=== PATIENT | male | born 1955 | race Caucasian/White ===

== ENCOUNTER 2024-07-25 13:43 | Outpatient (CLI) | payer MEDICARE, SELFPAY ==
--- NOTE | 2024-07-25 | CA_ITS ---
APPROVED REPORT EXAM: Comprehensive 2D, Doppler, and color-flow Echocardiogram Pattern Mechanic: Geri Sharif, RT(R) Ht: 5 ft 9 in Wt: 241lbs BSA: 2.24 BP: 134/63 mmHg Indications: HFrEF, CP, abn EKG, CAD, CABG x 3, dyspnea, DM, WILSON 2D Dimensions LVEF (Lala's) 44.50 % M: 52 - 72 LV Volume 150.90 mL M: 62 - 150 LV Volume Index 67.4 mL/m2 M: 34 - 74 LA Volume 27.50 mL LA Volume Index 12.28 mL/m2 (M/F) 16-34 EF AP4 49.20 % EF AP2 29.9 % EF BP 44.5 % GL Strain -16.1 % M-Mode Dimensions RVDd 2.86 cm (0.9-2.6) LA Diam 4.52 cm (1.9-4.0) LVDd 4.71 cm (3.5-5.7) LVDs 3.78 cm (3.5-5.7) IVSd 1.05 cm (0.6-1.1) PWd 0.80 cm (0.6-1.1) EF (Teich) 40.50% FS 19.70% EDV (Teich) 102.90 mL ESV (Teich) 61.20 mL LV Diastology E Decel Time 247 (160-240 msec) E/A Ratio 0.5 Aortic Valve BISMARK Index 1.02 cm2/m2 AoV Peak Guy. 134.0 (50-130 cm/s) AO Peak GR. 7.20 mmHg AO Mean GR. 3.50 (<5 mmHg) AO VTI 25.8 (18-25 cm) BISMARK (VTI) 2.33 (2.5-4.5 cm2) Mitral Valve MV E Max Guy. 59.0 (40-130 cm/s) MV A Velocity 108.0 (40-130 cm/s) E/A Ratio 0.54 MV PHT 72.0 ms Left Ventricle The left ventricle is normal size. Left ventricular systolic function is mildly decreased. There is increased overall thickness. The septum is asynchronous. There is mild global hypokinesis present. There is moderate hypokinesis of the basal septal and inferoseptal LV waller. Grade 2 diastolic dysfunction is present. LVEF is 45%. Right Ventricle The right ventricle is normal size. The right ventricular systolic function is normal. Atria Left atrium is mildly dilated. Right atrium is mildly dilated. There is no Doppler evidence of interatrial shunt. Aortic Valve The aortic valve is mildly thickened. There is no aortic valvular stenosis. Trace aortic regurgitation. Mitral Valve The mitral valve is mildly thickened. No evidence of mitral valve stenosis. Mild mitral regurgitation. Tricuspid Valve Tricuspid valve is grossly normal in structure and function. History Regurgitation. There is insufficient TR jet to estimate RVSP. Pulmonic Valve The pulmonary valve is normal in structure. Trace pulmonic regurgitation. Great Vessels The aortic root is normal in size. IVC is normal in size and collapses >50% with inspiration. Pericardium There is no pericardial effusion. Other Information Study Quality: Fair Conclusion Mildly reduced LV systolic function (LVEF 45%). Septum is asynchronous. Moderate hypokinesis of the basal septal and inferoseptal LV waller. Mild biatrial dilation. Mild MR. Electronically signed by : Kim Romeo MD 07/31/2024 11:58:41
== END 2024-07-25 23:59 | disposition home or self-care (01) ==
LOC: RT 13:45
PROVIDERS: PCP Nurse Practitioner Family; Visit Provider Physician Assistant
DX: I34.0 Nonrheumatic mitral (valve) insufficiency (principal); I50.20 Unspecified systolic (congestive) heart failure; I25.10 Atherosclerotic heart disease of native coronary artery without angina pectoris; E11.9 Type 2 diabetes mellitus without complications; R94.31 Abnormal electrocardiogram [ECG] [EKG]; Z95.1 Presence of aortocoronary bypass graft; R93.1 Abnormal findings on diagnostic imaging of heart and coronary circulation
CPT/HCPCS: 93306

== ENCOUNTER 2024-08-12 07:19 | Day surgery (SDC) | payer MEDICARE, SELFPAY ==
[2024-08-12] VITALS (18 sets, daily range): BP systolic 122–179; BP diastolic 70–98; PULSE 55–88; RESP 18–20; O2SAT 90–96; BMI 36.3
--- NOTE | 2024-08-12 07:02 | IR_ITS ---
APPROVED REPORT Patient Location: Outpatient PROCEDURES Left heart catheterization Left ventriculogram Selective coronary angiogram Left internal mammary angiography Selective engagement of the saphenous vein graft to the circumflex artery Selective engagement of saphenous vein graft to the posterior descending artery INDICATION Coronary artery disease, Angina pectoris, History of coronary bypass surgery Informed consent was obtained prior to the procedure. COMPLICATIONS NONE Estimated Blood Loss: LESS THAN 10 ML TECHNIQUE One percent lidocaine used to anesthetize the right groin. The right femoral artery was accessed via the Seldinger technique and a 5 Portuguese sheath was placed in the right femoral artery. A JL 4, JR4 catheter were used to perform left heart catheterization, left ventriculogram selective coronary angiography as well as selective engagement of the 2 vein grafts and the left internal mammary artery. At the end of the procedure the patient was transferred to the postop holding area in stable condition for sheath removal. ANGIOGRAPHIC RESULTS The left main artery Ostially occluded The right coronary artery Proximally occluded The CAMPOS ventriculogram reveals Reduced ejection fraction estimated at 35 to 40% The left ventricular end-diastolic pressure 15 to 20 mmHg KELLY to LAD is a large graft anastomosis onto the mid LAD and then backfills a medium sized first diagonal artery as well as supplies antegrade flow to the apex Saphenous to the circumflex artery ostially occluded Saphenous to the large posterior descending artery is widely patent IMPRESSION Coronary artery disease as described above PLAN 1. Continue medical management with risk factor modification Electronically signed by : Wilder Hobson MD 08/12/2024 12:31:35
[2024-08-12 08:26] LABS: Basophils % 0.4 % (0.1-2.0); Eosinophils # 0.5 Kmm3 (0.0-0.4); Eosinophils % 9.1 % (0.1-12.0); Hematocrit 39.6 % (42.0-52.0); Immature Granulocytes # 0.02 10^3uL; Immature Granulocytes % 0.4 %; Lymphocytes # 1.1 K/mm3 (0.7-4.5); Lymphocytes % 19.7 % (10-50); Mean Corpuscular HGB Conc 32.8 g/dL (31.8-35.4); Mean Corpuscular Hemoglobin 28.9 pg (27.0-31.2); Mean Platelet Volume 11.9 fl (7.4-10.4); Monocytes # 0.5 K/mm3 (0.1-1.0); Monocytes % 9.5 % (1.7-9.3); Neutrophils # 3.3 K/mm3 (1.8-7.8); Neutrophils % 60.9 % (37.0-80.0); Nucleated Red Blood Cells # 0 10^3/uL; Nucleated Red Blood Cells % 0 %; Platelet Count 221 K/mm3 (142-424); Red Cell Distribution Width 13.2 % (11.5-17.5); Red Cell Distribution Width-SD 42.1 fL; White Blood Count 5.5 K/mm3 (4.8-10.8)
[2024-08-12 08:31] LABS: Chloride 105 mmol/L (98-107)
[2024-08-12 08:32] LABS: Sodium 138 mmol/L (136-145)
[2024-08-12 08:34] LABS: Blood Urea Nitrogen 20 mg/dl (9-20); Creatinine Clearance Estimated 77 mL/min (50-200); Estimated Glomerular Filt Rate 50 ml/min (>60); GFR (African American) 61 ML/MIN (>60)
[2024-08-12 08:35] LABS: Calcium 8.9 mg/dl (8.4-10.2); Carbon Dioxide 26 mmol/L (22.0-30.0); Glucose 300 mg/dl (74-100)
[2024-08-12] MEDS: LIDOCAINE 1% 10ML MDV 10 ML IJ (10:32)
[2024-08-12] MEDS: HEPARIN 1,000 UNITS/500ML NS (CATH LAB) 3000 UNIT IV (10:32)
[2024-08-12] MEDS: diphenhydrAMINE 50MG/ML VIAL 50 MG IV (10:33)
[2024-08-12] MEDS: 0.9 % SODIUM CHLORIDE 500 ML 25 ML IV (10:33)
[2024-08-12] MEDS: MIDAZOLAM HCL 1MG/ML 5ML VIAL 1 MG IV (11:35)
[2024-08-12] MEDS: FENTANYL 100MCG/2ML VIAL 50 MCG IV (11:35)
[2024-08-12] MEDS: HYDROCODONE/APAP 5/325 MG TABLET 2 TAB PO (13:24)
[2024-08-12] MEDS: IOPAMIDOL-370 (76%);100ML BOTTLE 50 ML IV (15:31)
== END 2024-08-12 14:47 | disposition home or self-care (01) ==
PROVIDERS: PCP Nurse Practitioner Family; Visit Provider Internal Medicine
PROC: 4A023N7 Measurement of Cardiac Sampling and Pressure, Left Heart, Percutaneous Approach (ICD-10-PCS; CPT 93452; principal; 2024-08-12 09:15)
DX: I25.118 Atherosclerotic heart disease of native coronary artery with other forms of angina pectoris (principal); I25.708 Atherosclerosis of coronary artery bypass graft(s), unspecified, with other forms of angina pectoris; R06.02 Shortness of breath; R53.83 Other fatigue; R94.31 Abnormal electrocardiogram [ECG] [EKG]; E11.9 Type 2 diabetes mellitus without complications; E78.5 Hyperlipidemia, unspecified; I50.20 Unspecified systolic (congestive) heart failure; Z95.1 Presence of aortocoronary bypass graft; Z88.8 Allergy status to other drugs, medicaments and biological substances; Z79.1 Long term (current) use of non-steroidal anti-inflammatories (NSAID); Z79.84 Long term (current) use of oral hypoglycemic drugs; Z79.4 Long term (current) use of insulin; Z79.899 Other long term (current) drug therapy
CPT/HCPCS: 93459; 80048; 85025; 99152; C1725; C1769; C1894; J1200; J1644; J3010; Q9967

== ENCOUNTER 2024-09-18 10:45 | Outpatient (CLI) | payer MEDICARE, SELFPAY ==
--- OUTSIDE RECORDS SUMMARY | 2014-12-23 18:15 | XMS_ITS | Encounter Summary ---
Author Organization [place] [address] Care Team Providers Care Nurse Staff Community Health Name Role Phone Edgar Dodson MD Primary Care Provider [phone] Elba Tapia RN Unavailable Unavail able Encounter Details Date Type Department Care Team (Latest Contact Info) Description 12/23/2014 6:15 PM EDT Hospital Encounter [facility] 238 [facility] [place] [address] Left without seen Social History Tobacco Use Types Packs/Day Years Used Date Smoking Tobacco: Never Smokeless Tobacco: Never Alcohol Use Standard Drinks/Week Comments No 0 (1 standard drink = 0.6 oz pur e alcohol) NO [facility] Utilities Answer Date Recorded In the past 12 months has [employer] electric, gas, oil, or water company threatened to shut off services in your home? No 01/01/2024 Overall Financial Resource Strain (CARDIA) Answe r Date Recorded How hard is it for you to pa y for the very basics like food, housing, medical care, and heating? Not very hard 07/24/2024 PHQ-2 Answer Date Recorded PHQ-2 Total Score 0 01/01/2024 [facility] [place] of Occupat ional Health - Occupational Stress [...] things needed for daily living? No 07/24/2024 [facility] IP Transportation Answer D ate Recorded [...] k containing alcohol? 0 12/31/2023 6:58 PM EDT Meron Escobar RN How many drinks containing [...] in doing things 0 01/01/2024 1:34 PM NIEVEST Blaine Sauceda RN Feeling down, depressed, or hopeless 0 01/01/2024 1:34 PM EDT Blaine Sauceda RN PHQ-2 Total Score 0 01/01/2024 1:34 PM EDT Blaine Sauceda RN * PHQ-9 Total Score Answer Date of Assessment Author 0 01/01/2024 1:34 PM EDT Blaine Sauceda RN * Question Answer Date [...] Assessment Author No Risk 12/31/2023 7:00 PM EDT Tracie Peña RN * [place] Suicide Severity Rating Scale (Q shift for moderate and high) Question Answer Date of Assessment Author 1. In the past month, have y ou wished you were or wished you could go to sleep and not wake up? 0 12/31/2023 7:00 PM EDT Tracie Flowers, JAMISON 2. In the past month, have y ou actually had any thoughts of killing yourself? (If no, skip to question 6) 0 12/31/2023 7:00 PM EDT Tracie Peña, JAMISON 6. Have you ever done anythi ng, [...] or making decisions? No 02/20/2023 5:25 PM Dianne Maddox RMA documented in this encounter Plan of Treatment Upcoming Encounters Date Type Department Care Team (Late st Contact Info) Description 11/18/2024 10:45 AM EDT Office Visit [facility] [address] [place] [address] Ariana Munguia MD [address] [place] [address] 01/02/2025 10:45 AM EDT Office Visit [facility] [address] [place] [address] Abel Hernandez MD [address] [facility] [address] [place] [address] documented as of this encounter Goals Goal Patient Goal Type Associated Problems Recent Progress Patient-Stated? Author Blood Pressure < 140/90 Blood Pressure 150/80(2024 10:40 AM EDT) No Carlee Rose CMA BMI (Calculated) < 30 General 36.6(07/19/19 10:40 AM EDT) No Carlee Rose CMA Maintain a healthy diet, exercise regularly and maintain an ideal body weight General No Elza Mckeon, JORGE <Enter Goal> General No Allison Angel RN HEMOGLOBIN A1C < 7.0 Result Component 9.6( 4 2:26 PM EDT) No Carlee Rose CMA documented as of this encounter Visit Diagnoses Not on filedocumented in this encounter Additional Health Concerns Infection Onset Date Last Indicated Resolved Time R/O C-Diff 05/20/2021 05/20/2021 05/20/2021 3:39 PM EST documented as of this encounter Care Teams Nurse Staff Community Health Relationship Specialty Start Date End Date Edgar Dodson MD [address] [address] PCP - General 04/08/09 07/05/15 Elba Tapia, RN Health Advocate 10/21/13 5 documented as of this encounter
--- OUTSIDE RECORDS SUMMARY | 2018-05-20 11:35 | XMS_ITS | Encounter Summary ---
Author [place] [address] Care Team Providers Care Group Leader Wafer Polishing Name Role Phone Omi Daly DO Primary Care Provider Encounter Details Date Type Department Care Team (Latest Contact Info) Description 05/20/2018 11:35 AM EDT Hospital Encounter [facility] [address] [facility] [place] [address] Left without seen Social History Tobacco Use Types Packs/Day Years Used Date Smoking Tobacco: Never Smokeless Tobacco: Never Alcohol Use Standard Drinks/Week Comments No 0 (1 standard drink = 0.6 oz pur e alcohol) NO [facility] Utilities Answer Date Recorded In the [...] Date Recorded PHQ-2 Total Score 0 01/01/2024 [facility] [place] of Occupat ional Health - Occupational Stress [...] things needed for daily living? No 07/24/2024 [facility] IP Transportation Answer D ate Recorded In [...] Determine Rows 4-10 0 12/31/2023 6:58 PM NIEVEST Meron Escobar RN * Is the person deaf or does he/she have serious difficulty hearing? Answer Date of Assessment Author No 04/29/2018 3:37 PM Micehlle Matias RMA * Is the person blind [...] 0 12/01/2019 4:10 PM EDT Derick Self , JAMISON * Recent Risk Level: Answer Date of Assessment Author No Risk, Screening Complete 12/01/2019 4:10 PM E Derick Da Silva, JAMISON * Suicide Severity Rating Answer Date of Assessment Author No Risk 12/31/2023 7:00 PM EDT Tracie Peña RN * [place] Suicide Severity Rating Scale (Q shift for [...] Date Author No 04/29/2018 3:37 PM EST Ammerman, Michelle, RMA documented in this encounter Plan of Treatment Upcoming Encounters Date Type Department Care Team (Late st Contact Info) Description 11/18/2024 10:45 AM EDT Office Visit [facility] [address] [place] [address] Ariana Munguia MD [address] [place] [address] 01/02/2025 10:45 AM EDT Office Visit [facility] [place] [address] [place] [address] Abel Hernandez MD [address] [facility] [address] [place] [address] documented as of this encounter Goals Goal [...] documented as of this encounter Care Teams Group Leader Wafer Polishing Relationship Specialty Start Date End Date Omi Daly DO [address] [place], [place] [id number] PCP - General Family Medicine 07/06/15 06/14/20 documented as of this encounter
--- OUTSIDE RECORDS SUMMARY | 2023-02-26 09:00 | XMS_ITS | Continuity of Care Document ---
Author Organization [facility] Address [address] [place] [address] Phone Care Team Providers Care Assistant Chief Nursing Officer Name Role Phone Brett Howard MD Unavailable Unavailable Medications Medication Instructions Dosage Effective Dates (start - stop) Status Comments Medrol (Antoni) 4 mg tablets in a dose pack take by Oral route Not Available - Active Procedures Procedure Date Office/outpatient visit,[facility] 2022 X-ray exam lwr spine, min 4 views X-ray exam of knee, 3 views Advance Directives Directive Yes / No Effective Date File Name No Information Encounters Encounter Description Practice Location Reason(s) For Visit Diagnoses Date Provider Providers Copied on Encounter [facility] [address], [facility], tel:[phone] [facility] Bilateral primary osteoarthritis of knee [address] [place], [place], [facility], . tel:[phone] Referring Provider: Carlos A Gross, [address] [place] [address], [address] . tel:[phone] [facility] [address], [facility], tel:[phone] [address] [place] [address] No Information [address] [place], [address], [place]. tel:[phone] Referring Provider: Carlos A Gross, [address] [place], [place] [address] , [place], [address] . tel:[phone] [facility], [facility] [place], [address], tel:[phone] [address] [facility] Bilateral primary osteoarthritis of knee [address] [place], [place], [facility], . tel:[phone] Referring Provider: Carlos A Gross, [address] [place] [address], [address] . tel:[phone] Office[facility]pa [facility]ient visit,[facility], [address] [place], [address], tel:[phone] [address] [facility] Other intervertebral disc degeneration, lumbar regionBilateral primary osteoarthritis of kneeConnective tissue and disc stenosis of intervertebral foramina of lumbar region [address] [place], [address], . tel:[phone] Referring Provider: Carlos A Gross, [address] [place] [address], [address] . tel:[phone] Family History Family Member Type Diagnosis Age At Onset No Information Payers Payer name Insurance type Covered green party ID Authoriza tion(s) [employer] Medicare - [id number] Social History Type Description Quantity Date Captured [...]
--- OUTSIDE RECORDS SUMMARY | 2024-07-24 08:30 | XMS_ITS | Encounter Summary ---
Author Organization [place] [address] Care Team Providers Care Cath Lab Tech Name Role Phone Rneato Rey DO, Viral Primary Care Provider [phone] Ariana Munguia MD Unavailable [phone] Allison Angel RN Unavailable Unavailable Reason for Visit * Reason Comments CM- Telephonic Outreach CM- Longitudinal Continued Encounter Details Date Type Department Care Team (Latest Contact Info) Description 07/24/2024 8:30 AM EDT Clinical Support [facility] [place] [address] [place] [address] Allison Angel, RN Uncontrolled type 2 diabetes mellitus with hyperglycemia (HCC) (Primary Dx); CHF (congestive heart failure), NYHA class I, acute on chronic, combined (HCC); Enrolled in chronic care management Social History Tobacco Use Types Packs/Day Years Used Date Smoking Tobacco: Never Smokeless Tobacco: Never Alcohol Use Standard Drinks/Week Comments No 0 (1 standard drink = 0.6 oz pur e alcohol) NO [facility] Utilities Answer Date Recorded In the past 12 months has [employer] electric, gas, oil, or water company threatened to shut off services in your home? No 01/01/2024 Overall Financial Resource Strain (CARDIA) Answe r Date Recorded How hard is it for you to pa y for the very basics like food, housing, medical care, and heating? Not very hard 07/24/2024 PHQ-2 Answer Date Recorded PHQ-2 Total Score 0 01/01/2024 [place] of Occupat ional Health - Occupational Stress [...] money to buy more. Never true 07/25/19 Within the past 12 months, t he [...] things needed for daily living? No 07/24/2024 [facility] IP Transportation Answer D [...] on file Sexual Orientation Not on file documented as of this encounter Functional Status * Is the person deaf or does he/she have serious difficulty hearing? Answer Date of Assessment Author No 02/20/2023 5:25 PM Anne RMA * Is the person blind or does he/she have serious difficulty seeing even when wearing glasses? Answer Date of Assessment Author No 02/20/2023 5:25 PM Anne RMA * Does this person have serious difficulty walking or climbing stairs? Answer Date of Assessment Author No 02/20/2023 5:25 PM Anne RMA * Does this person have difficulty dressing or bathing? Answer Date of Assessment Author No 02/20/2023 5:25 PM Anne RMA * Because of a physical, mental or emotional condition, does this person have difficulty doing errands alone such as visiting a doctor's office or shopping? Answer Date of Assessment Author No 02/20/2023 5:25 PM Anne RMA documented as of this encounter Mental Status * Because of a physical, mental or emotional condition, does this person have serious difficulty concentrating, remembering or making decisions? Answer Entry Date Author No 02/20/2023 5:25 PM Anne RMA documented in this encounter Progress Notes * Allison Angel RN - 07/24/2024 8:30 AM EDT Patient presents for follow up visit with Office Produce Assistant (OCC) Date of Longitudinal Care Management initiated: 11/28/2023 Reason for visit: Chronic Care Management Visit Type: Telephonic Assessment: Spoke with: Patient Concerns: Patient feels he is gaining weight. Patient reports he is always out of breathe. He denies breathing to be worse then regular. Patient reports weight is 241 today and log shows he has fluctuated between 241 - 244. Patient reports having some edema in lower extremities. Patient reports he is trying to adhere to daily 2 liter fluid restriction. Patient reports he does not add salt to foods and tries to buy low sodium foods. Patient is not checking vital signs at home. Patient reports glucose 182 fasting, does go down in the evening. Patient is taking Lantus daily 25 units. Patient declines to schedule visit with provider for evaluation. Advance Care Planning (ACP): Advance Care Planning (ACP) has been assessed and ACP navigator has been updated in last 6 months Tobacco use: Reviewed; patient reports no change in smoking history Health Maintenance: Hemoglobin (hgb) A1C Status Last completed on Lab Results Component Value Date HGBA1C 9.6 (H) 12/12/2023 Diabetic Eye Exam/ IRIS Status Last completed on 03/13/2023 Medications: Patient denies any questions or concerns related to medications Education/handouts: Education: Educated patient on: Encouraged patient to made a provider appointment for evaluation. Advised patient to seek evaluation if weight goes up or condition deteriorates. Urged adherence to 2 liter per day fluid restriction. Salt restriction. Continue with daily with daily weights. Ensure checking glucose and taking Lantus. Encouraged patient to check blood pressure at home and also log result. Handouts: No Handouts provided Goals: Goals Addressed This Visit's Progress Patient will check glucose and log result, through next RN Produce Assistant visit. On track Patient will choose low carbohydrate food items through next RN Produce Assistant visit. On track Patient will keep daily fluid intake at 64 ounces or less through next visit with RN Produce Assistant. On track Next Steps: Produce Assistant contact information given / reviewed Reviewed when to call Primary Care Provider (PCP) office, urgent care, or 911 Patient will follow up with care coordination on 08/21/2024 Produce Assistant will continue to care manage patient Notes: No identified SDOH concerns after SDOH assessment review Chronic Care Management- Time Spent with Patient Time spent with patient (minutes): 10 Time spent performing chart review (minutes): 10 Total time (minutes): 20 documented in this encounter Miscellaneous Notes * Patient Instructions - Allison Angel RN - 07/24/2024 8:30 AM EDT Images from the original note were not included. documented in this encounter Plan of Treatment Upcoming Encounters Date Type Department Care Team (Late st Contact Info) Description 11/18/2024 10:45 AM EDT [place] [address] Ariana Munguia MD [address] [place] [id number] 01/02/2025 10:45 AM EDT Office Visit [facility] [place] [address] [address] Abel Hernandez MD [address] [facility] [place] [address] [place], [place] [id number] documented as of this encounter Goals Goal Patient Goal Type Associated Problems Recent Progress Patient-Stated? Author Blood Pressure < 140/90 Blood Pressure 150/80(2024 10:40 AM EDT) No Carlee Rose CMA BMI (Calculated) < 30 General 36.6(07/19/19 10:40 AM EDT) Carlee Westbrook CMA Maintain a healthy diet, exercise regularly and maintain an ideal body weight General No Elza Mckeon, RMA <Enter Goal> General No Allison Angel RN HEMOGLOBIN A1C < 7.0 Result Component 9.6( 2:26 PM EDT) No Carlee Rose CMA documented as of this encounter Visit Diagnoses Diagnosis Uncontrolled type 2 diabetes mellitus with hyperglycemia (HCC)- Primary CHF (congestive heart failure), NYHA class I, acute on chronic, combined (HCC) Enrolled in chronic care management documented in this encounter Additional Health Concerns Assessment Noted Time A fall risk assessment has been complete d for the patient 05/20/2024 4:23 PM EDT documented as of this encounter Care Teams Cath Lab Tech Relationship Specialty Start Date End Date Carlos A Gross DO [address] [place] [address] PCP - General Family Medicine 06/15/20 Ariana Munguia MD [address] [place] [id number] Internal Medicine-Cardiovascular Disease 04/11/22 Allison Angel, JAMISON Produce Assistant Registered Nurse 11/28/23 09/01/24 documented as of this encounter
--- OUTSIDE RECORDS SUMMARY | 2024-09-02 12:30 | XMS_ITS | Encounter Summary ---
Author Organization [place] [address] Care Team Providers Care Dairy Cattle Farm Manager Name Role Phone Renato Rey DO, Viral Primary Care Provider [phone] Ariana Munguia MD Unavailable [phone] Reason for Visit * Reason Comments CM- Telephonic Outreach CM- Longitudinal Graduation CM-Medication Assistance Encounter Details Date Type Department Care Team (Latest Contact Info) Description 09/02/2024 12:30 PM EDT Clinical Support [address] [address] Allison Angel, JAMISON Uncontrolled type 2 diabetes mellitus with hyperglycemia (HCC) (Primary Dx); CHF (congestive heart failure), NYHA class I, acute on chronic, combined (HCC); Enrolled in chronic care management Social History Tobacco Use Types Packs/Day Years Used Date Smoking Tobacco: Never Smokeless Tobacco: Never Alcohol Use Standard Drinks/Week Comments No 0 (1 standard drink = 0.6 oz pur e alcohol) NO C Utilities Answer Date Recorded In the past 12 months has [employer] electric, gas, oil, or water company threatened to shut off services in your home? No 01/01/2024 Overall Financial Resource Strain (CARDIA) Answe r Date Recorded How hard is it for you to pa y for the very basics like food, housing, medical care, and heating? Not very hard 07/24/2024 PHQ-2 Answer Date Recorded PHQ-2 Total Score 0 01/01/2024 [place] of Occupat ional Health - Occupational Stress [...] things needed for daily living? No 07/24/2024 [facility] IP Transportation Answer D ate Recorded [...] PM Anne RMA documented in this encounter Ordered Prescriptions Prescription Sig Dispense Quantity Refills Last Filled Start Date End Date insulin glargine (LANTUS SOLOSTAR U-100 INSULIN) 100 unit/mL (3 mL) SubQ Insulin Pen Inject 15 ml per day 15 mL 09/02/2024 01/02/2025 documented in this encounter Progress Notes * Allison Angel RN - 09/02/2024 12:30 PM EDT Care Management (CM) final visit: Date of longitudinal care coordination initiated: 11/28/2023 Date of discharge from care coordination 09/02/2024 Reason for discharge: Patient no longer a patient at this primary care office. Patient now going to [facility] primary care. Assessment: Spoke with: Patient Patient reports seeing a new doctor at [facility]. Patient reports that doctor has made changes to medications and increased insulin dose. Patient reports he is weighing self daily and adhering to fluid restriction. Patient reports he is taking insulin and monitoring glucose. Denies any concerns with this. Patient reports cardiology did change his water pill to Torsemide from Lasix. Patient reports he isstill having shortness of breath. Advanced Care planning: Not assessed as patient is not being seen at this office for future visits. Tobacco use: Reviewed; patient reports no change in smoking history Medications: Medications reviewed with patient in full Education/handouts: Education: Educated patient on: Medication assistance program for Lantus will not be managed by new primary care office. Advised the forms can be found on the needymeds.org website. Advised patient to continue to live a heart failure lifestyle. there is a current shipment of Lantus ready for bead picker. Educated patient about Nurse Now Line [phone] ([phone]). Patient can call and speak witha nurse about symptoms they maybe experiencing. Patient can also call if having any questions aboutcare. This line has a trained professional 02/10. If patient is experiencing severe symptoms seek further evaluation at nearest Urgent Care or Emergency Room (ER). Handouts: No Handouts provided Device does not support use of MyChart Goals: Goals Addressed This Visit's Progress COMPLETED: Patient will check glucose and log result, through next RN Sonar Watchstander visit. COMPLETED: Patient will choose low carbohydrate food items through next RN Sonar Watchstander visit. COMPLETED: Patient will keep daily fluid intake at 64 ounces or less through next visit with RN Sonar Watchstander. Next Steps: Care Coordination contact information reviewed Reviewed when to contact laboratory animal caretaker, Primary Care Provider office, urgent care or [facility] Chronic Care Management- Time Spent with Patient Time spent with patient (minutes): 10 Time spent performing chart review (minutes): 10 Total time (minutes): 20 documented in this encounter Miscellaneous Notes * Patient Instructions - Allison Angel RN - 09/02/2024 12:30 PM EDT Images from the original note were not included. Below is a summary of the most recent test results related to your diabetes. These tests help manage your health and direct your care. Any discrepancies should be brought to the attention of your provider's office Diabetic Report Card for [facility] Diabetic Management Labs/Vitals Recommendations Date of Result Result Score Hemoglobin A1c Recommended every 3-6 months Results should be less than 7 12/12/2023 9.6 LDL Cholesterol Recommended yearly Results should be less than 100 mg/dl 11/01/2023 56 Blood Pressure Blood pressure reading should be less than 140/90 07/18/2024 BP Readings from Last 1 Encounters: 07/18/24 150/80 Kidney Monitoring Microalbumin test recommended yearly Results should be less than 30 mg/g 07/18/2024 10.8 Legend: - Results are within recommended range and timeframe. - Results are outside of recommended value range. - Results do not exist or are outside of recommended timeframe. Diabetic Management Exams Recommendations Last Completion Date Result Score Diabetic Eye Exam Exam recommended every 2 years unless positive, then recommended annually. 08/15/2023 DIABETES EYE EXAM Value Ref Range Left Diabetic Retinopathy Present Present/Not Present Right Diabetic Retinopathy Present Present/Not Present Neuropathy Evaluation Exam recommended annually. 11/25/2020 11/25/2020 8:51 AM DIABETIC MONOFILAMENT R Monofilament Present L Monofilament Present Legend: - Exam completed within recommended timeframe. - Exam not completed within recommended timeframe. *This report is informational only. Your individual goals may vary based on age and/or other healthconditions. Please consult your primary care provider for your personalized goals. documented in this encounter Plan of Treatment Upcoming Encounters Date Type Department Care Team (Late st Contact Info) Description 11/18/2024 10:45 AM EDT Office Visit [facility] [address] [id number] Ariana Munguia MD [address] [place] [address] [id number] 01/02/2025 10:45 AM EDT Office Visit [facility]OLOG[facility] [place] [address] [place] [address] Abel Hernandez MD [address] [facility] [address] [place] [address] documented as of this encounter Goals Goal [...] documented as of this encounter Care Teams Dairy Cattle Farm Manager Relationship Specialty Start Date End Date Carlos A Gross DO [address] [place] [phone] PCP - General Family Medicine 06/15/20 Ariana Munguia MD [address] [place] [address] Internal Medicine-Cardiovascular Disease 04/11/22 documented as of this encounter
--- OUTSIDE RECORDS SUMMARY | 2024-09-18 10:50 | XMS_ITS | Encounter Summary ---
Author Organization [place] [address] Care Team Providers Care Parts Fabricator Name Role Phone Renato Rey DO Viral Primary Care Provider [phone] Ariana Munguia MD Unavailable [phone] Reason for Visit * Reason Comments Medication Refill Encounter Details Date Type Department Care Team (Late st Contact Info) Description 09/18/2024 Refill [facility] [place] [address] [place] [address] Carlos A Gross DO [address] [place] [address] Medication Refill Social History Tobacco Use Types Packs/Day Years Used Date Smoking Tobacco: Never Smokeless Tobacco: Never Alcohol Use Standard Drinks/Week Comments No 0 (1 standard drink = 0.6 oz pur e alcohol) NO [facility] Utilities Answer Date Recorded In the past 12 months has th e electric, gas, oil, or water company threatened to shut off services in your home? No 01/01/2024 Overall Financial Resource Strain (CARDIA) Answe r Date Recorded How hard is it for you to pa y for the very basics like food, housing, medical care, and heating? Not very hard 07/24/2024 PHQ-2 Answer Date Recorded PHQ-2 Total Score 0 01/01/2024 [facility] [place] of Occupat ional Health - Occupational Stress [...] things needed for daily living? No 07/24/[address] [facility] IP Transportation Answer D ate Recorded In [...] of Assessment Author No 02/20/2023 5:25 PM Anne, RMA * Is the person blind or does he/she have serious difficulty seeing even when wearing glasses? Answer Date of Assessment Author No 02/20/2023 5:25 PM Anne, RMA * Does this person have serious difficulty walking or climbing stairs? Answer Date of Assessment Author No 02/20/2023 5:25 PM Anne, RMA * Does this person have difficulty dressing or bathing? Answer Date of Assessment Author No 02/20/2023 5:25 PM Anne, RMA * Because of a physical, mental [...] PM Anne RMA documented in this encounter Plan of Treatment Upcoming Encounters Date Type Department Care Team (Late st Contact Info) Description 11/18/2024 10:45 AM EDT Office Visit [facility] [place] [address] [place] [address] Ariana Munguia MD [address] [place] [address] 01/02/2025 10:45 AM EDT Office Visit [facility] [place] [address] [place] [address] Abel Hernandez MD [address] [facility] [address] [place] [address] documented as of this encounter Goals Goal [...] 7.0 Result Component 9.6( 2:26 PM EDT) Carlee Westbrook CMA documented as of this encounter Visit Diagnoses Diagnosis Sore throat Acute pharyngitis Runny nose Other diseases of nasal cavity and sinuses documented in this encounter Additional Health Concerns Assessment Noted Time A fall risk assessment has been complete d for the patient 05/20/2024 4:23 PM EDT documented as of this encounter Care Teams Parts Fabricator Relationship Specialty Start Date End Date Carlos A Gross DO [address] [place] [phone] PCP - General Family Medicine 06/15/20 Ariana Munguia MD [address] [place] [address] Internal Medicine-Cardiovascular Disease 04/11/22 documented as of this encounter
--- OUTSIDE RECORDS SUMMARY | 2024-09-18 10:50 | XMS_ITS | Encounter Summary ---
Author Organization [place] [address] Care Team Providers Care Electrode Turner And Finisher Name Role Phone Renato Rey DO, Viral Primary Care Provider [phone] Ariana Munguia MD Unavailable [phone] Allison Angel RN Unavailable Unavailable Reason for Referral * Genetic Lab Test (Routine) - Authorization Not Needed Specialty Diagnoses / Procedures Referred By Contilsa t Referred To Contact Diagnoses Screening for cancer of the rectum Screen for colon cancer Procedures COLOGUARD Carlos A Gross DO [address] [place] [address] Phone: tel: fax: Referral ID Status Reason Start Date Expiration Date Visits Requested Visits Authorized [id number] Authorization Not Needed 08/27/2024 08/27/2025 1 1 Encounter Details Date Type Department Care Team (Late st Contact Info) Description 08/27/2024 Orders Only [facility] [address] [place] [address] Carlos A Gross DO [address] [place] [address] Screening for cancer of the rectum; Screen for colon cancer Social History Tobacco Use Types Packs/Day Years Used Date Smoking Tobacco: Never Smokeless Tobacco: Never Alcohol Use Standard Drinks/Week Comments No 0 (1 standard drink = 0.6 oz pur e alcohol) NO [facility] Utilities Answer Date Recorded In the [...] Date Recorded PHQ-2 Total Score 0 01/01/2024 [facility] [place] of Occupat ional Health - Occupational Stress [...] things needed for daily living? No 07/24/2024 [facility] IP Transportation Answer D ate Recorded [...] of Assessment Author No 02/20/2023 5:25 PM EST Malaika Ter sara, RMA * Is the person blind or does he/she have serious difficulty seeing even when wearing glasses? Answer Date of Assessment Author No 02/20/2023 5:25 PM EST Dai Ter sara, RMA * Does this person have serious difficulty walking or climbing stairs? Answer Date of Assessment Author No 02/20/2023 5:25 PM EST Dai Ter sara, RMA * Does this person have difficulty dressing or bathing? Answer Date of Assessment Author No 02/20/2023 5:25 PM EST Dai Ter sara, RMA * Because of a physical, mental or emotional condition, does this person have difficulty doing errands alone such as visiting a doctor's office or shopping? Answer Date of Assessment Author No 02/20/2023 5:25 PM EST Malaika Ter sara, RMA documented as of this encounter Mental Status * Because of a physical, mental or emotional condition, does this person have serious difficulty concentrating, remembering or making decisions? Answer Entry Date Author No 02/20/2023 5:25 PM EST Malaika Ter sara, RMA documented in this encounter Plan of Treatment Upcoming Encounters Date Type Department Care Team (Late st Contact Info) Description 11/18/2024 10:45 AM EDT Office Visit [facility] [address] [address] Ariana Munguia MD [address] [place] [address] 01/02/2025 10:45 AM EDT Office Visit [facility] [place] [address] [place] [address] Abel Hernandez MD [address] [place] [address] [address] [place] [address] Scheduled Orders Name Type Priority Associated Diagnoses Orde r Schedule COLOGUARD Microbiology Routine Screening for cancer of the rectum Screen for colon cancer 1 Occurrences starting 08/27/2024 until 08/27/2025 documented as of this encounter Goals Goal [...] as of this encounter Visit Diagnoses Diagnosis Screening for cancer of the rectum Screening for malignant neoplasm of the rectum Screen for colon cancer Special screening for malignant neoplasms, colon documented in this encounter Additional Health Concerns Assessment Noted Time A fall risk assessment has been complete d for the patient 05/20/2024 4:23 PM EDT documented as of this encounter Care Teams Electrode Turner And Finisher Relationship Specialty Start Date End Date Carlos A Gross DO [address] [place] [phone] PCP - General Family Medicine 06/15/20 Ariana Munguia MD [address] [place] [address] Internal Medicine-Cardiovascular Disease 04/11/22 Allison Angel, JAMISON Torch Straightener And Heater Registered Nurse 11/28/23 09/01/24 documented as of this encounter
--- OUTSIDE RECORDS SUMMARY | 2024-09-18 10:50 | XMS_ITS | Encounter Summary ---
Author Organization [facility] Address [address] [place] [address] Care Team Providers Care Garde Manager Name Role Phone Renato Rey DO, Viral Primary Care Provider [phone] Ariana Munguia MD Unavailable Reason for Visit * Reason Onset Date Comments Medication Refill 09/02/2024 Encounter Details Date Type Department Care Team (Late st Contact Info) Description 09/02/2024 Refill [facility] Nephrology [place] [address] [facility] [address] [place] [address] Abel Hernandez MD [address] [place] [address] Medication Refill Social History Tobacco Use Types Packs/Day Years Used Date Smoking Tobacco: Never Smokeless Tobacco: Never Alcohol Use Standard Drinks/Week Comments No 0 (1 standard drink = 0.6 oz pur e alcohol) NO [facility] Utilities Answer Date Recorded In the past 12 months has [employer] electric, gas, oil, or water company threatened to shut off services in your home? No 01/01/2024 Overall Financial Resource Strain (CARDIA) Answe r Date Recorded How hard is it for you to pa y for the very basics like food, housing, medical care, and heating? Not very hard 07/24/2024 PHQ-2 Answer Date Recorded PHQ-2 Total Score 0 01/01/2024 [facility] [place] of Occupat ional Health - Occupational Stress [...] things needed for daily living? No 07/24/2024 [facility] IP Transportation Answer D ate Recorded [...] Refills Last Filled Start Date End Date calcitRIOL (ROCALTROL) 0.25 mcg Oral CapsuleIndications :Vitamin D deficiency Take 1 Capsule by mouth every 48 hours. 30 Capsule 6 09/02/2024 documented in this encounter Miscellaneous Notes * Telephone Encounter - Mami Woodard RMA - 09/02/2024 11:42 AM EDT Patient states pharmacy didn't fill his calicitrol resent medication documented in this encounter Plan of Treatment Upcoming Encounters Date Type Department Care Team (Late st Contact Info) Description 11/18/2024 10:45 AM EDT Office Visit [facility] [place] [address] [place] [address] Ariana Munguia MD [address] [place] [address] 01/02/2025 10:45 AM EDT Office Visit [facility] [place] [address] [place] [address] Abel Hernandez MD [address] [facility] [address] [place] [id number] documented as of this encounter Goals Goal Patient Goal Type Associated Problems Recent Progress Patient-Stated? Author Blood Pressure < 140/90 Blood Pressure 150/80(2024 10:40 AM EDT) No Carlee Rose CMA BMI (Calculated) < 30 General 36.6(07/19/19 25 10:40 AM EDT) No Carlee Rose CMA Maintain a healthy diet, exercise regularly and maintain an ideal body weight General No Elza Mckeon, JORGE <Enter Goal> General No Allison Angel RN HEMOGLOBIN A1C < 7.0 Result Component 9.6( 4 2:26 PM EDT) No Carlee Rose CMA documented as of this encounter Visit Diagnoses Diagnosis Vitamin D deficiency- Primary Unspecified vitamin D deficiency documented in this encounter Discontinued Medications Medication Sig Discontinue Reason Start Date End Da te calcitRIOL (ROCALTROL) 0.25 mcg Oral Capsule Take 1 Capsule by mouth every 48 hours. Reorder 08/17/2023 09/02/2024 documented as of this encounter Additional Health Concerns Assessment Noted Time A fall risk assessment has been complete d for the patient 05/20/2024 4:23 PM EDT documented as of this encounter Care Teams Garde Manager Relationship Specialty Start Date End Date Carlos A Gross DO [address] [place] [phone] PCP - General Family Medicine 06/15/20 Ariana Munguia MD [address] [place] [address] Internal Medicine-Cardiovascular Disease 04/11/22 documented as of this encounter
--- OUTSIDE RECORDS SUMMARY | 2024-09-18 10:53 | XMS_ITS | Encounter Summary ---
Author Organization [facility] Address [address] [place] [address] Care Team Providers Care Inspector Missile Name Role Phone Renato Rey DO, Viral Primary Care Provider [phone] Ariana Munguia MD Unavailable [phone] Allison Angel RN Unavailable Unavailable Reason for Visit * Reason Comments Medication Refill Encounter Details Date Type Department Care Team (Late st Contact Info) Description 08/19/2024 Refill [facility] NEPHROLOGY [place] [address] [place] [address] Abel Hernandez MD [address] [place] [address] Medication Refill Social History Tobacco Use Types Packs/Day Years Used Date Smoking Tobacco: Never Smokeless Tobacco: Never Alcohol Use Standard Drinks/Week Comments No 0 (1 standard drink = 0.6 oz pur e alcohol) NO [facility] Utilities Answer Date Recorded In [...] Date Recorded PHQ-2 Total Score 0 01/01/2024 [facility] [place] of Occupat ional Health - Occupational Stress [...] living? No 07/24/2024 [facility] IP Transportation Answer D ate Recorded [...] 10:45 AM EDT Office Visit [facility] [place] [address] [place] [address] [id number] Ariana Munguia MD [address] [place] [address] 01/02/2025 10:45 AM EDT Office Visit [facility] [place] [address] [place] [address] Abel Hernandez MD [address] [facility] [address] [place] [address] documented as of this encounter Goals Goal [...] Mckeon RMA <Enter Goal> General No Allison Angel, JAMISON HEMOGLOBIN A1C < 7.0 Result Component 9.6( 2:26 PM EDT) Carlee Westbrook CMA documented as of this encounter Visit Diagnoses Not on filedocumented in this encounter Additional Health Concerns Assessment Noted Time A fall risk assessment has been complete d for the patient 05/20/2024 4:23 PM EDT documented as of this encounter Care Teams Inspector Missile Relationship Specialty Start Date End Date Carlos A Gross DO [address] [place] [phone] PCP - General Family Medicine 06/15/20 Ariana Munguia MD [address] [place] [address] Internal Medicine-Cardiovascular Disease 04/11/22 Allison Angel, JAMISON Tube Cleaning Operator Registered Nurse 11/28/23 09/01/24 documented as of this encounter
--- OUTSIDE RECORDS SUMMARY | 2024-09-18 10:53 | XMS_ITS | Continuity of Care Document ---
Author Organization [facility] Address [address] [place] [address] Phone Care Team Providers Care Scout Sniper Name Role Phone Renato Rey DO, Viral Primary Care Provider [phone] Sapphire Munguia MD Unavailable [phone] Encounters Date Type Department Care Team Description 09/19/19 25 Refill [facility] [place] [facility] [address] [place] [address] Carlos A Gross V, DO Medication Refill 09/03/19 25 12:30 PM EDT [facility] [address] [place] [address] Allison Angel RN Uncontrolled type 2 diabetes mellitus with hyperglycemia (HCC) (Primary Dx); CHF (congestive heart failure), NYHA class I, acute on chronic, combined (HCC); Enrolled in chronic care management 09/03/19 25 Refill [facility] Nephrology [place] [address] [place], [place] [id number] Abel Hernandez MD Medication Refill 08/28/19 25 Orders Only [facility] [address] [place], [place] [id number] Carlos A Gross V, DO Screening for cancer of the rectum; Screen for colon cancer 08/20/19 25 Refill [facility] NEPHROLOGY [place] [address] [place] [address] Abel Hernandez MD Medication Refill 08/09/19 25 Telephone [facility] [place] [address] [place] [phone] Gross, Viral V, DO Medication Management (pt needing med from office) 07/29/19 25 Patient Outreach [facility] [place] [place] [address] Allison Angel, JAMISON CM- Telephonic Outreach; CM-Medication Assistance 07/25/19 8:30 AM EDT Clinical Support [facility] [place] [place] [address] Allison Angel RN Uncontrolled type 2 diabetes mellitus with hyperglycemia (HCC) (Primary Dx); CHF (congestive heart failure), NYHA class I, acute on chronic, combined (HCC); Enrolled in chronic care management 07/19/19 11:30 AM EDT - 07/19/19 11:59 PM EDT Hospital Encounter [facility] [place] [place] [id number] Stage 3a chronic kidney disease (HCC); Vitamin D deficiency; Chronic kidney disease-mineral and bone disorder Discharge Disposition: Home or Self Care 07/19/19 10:30 AM EDT Office Visit [facility] NEPHROLOGY [address] [place] [address] Abel Hernandez MD Stage 3a chronic kidney disease (HCC) (Primary Dx); Chronic kidney disease-mineral and bone disorder; HTN (hypertension), benign 07/09/19 25 Refill [facility] [place] [place] [address] Renato Viral V, DO Medication Refill 07/08/19 25 1:15 PM EDT Clinical Support [facility] [place] [place] [address] Allison Angel RN Uncontrolled type 2 diabetes mellitus with hyperglycemia (HCC) (Primary Dx); CHF (congestive heart failure), NYHA class I, acute on chronic, combined (HCC); Enrolled in chronic care management 07/06/19 25 Refill [facility] [address] [place] [address] Sapphire Munguia MD Medication Refill 07/03/19 25 Refill [facility] [place] [facility] 405 [place] [address] Gross, Viral V, DO Medication Refill 06/28/19 25 Telephone [facility] [address] [place] [address] Gross, Viral V, DO Other (bw orders needing faxed) 06/27/19 25 Refill [facility] [address] [place] [address] Omi Daly, DO Medication Refill 06/27/19 25 Refill [facility] 405 [place] [address] Gross, Viral V, DO Medication Refill 06/26/19 25 Refill SE[facility] [address] [place] [address] Oswaldo Harry MD Medication Refill 06/21/19 25 Telephone [facility] [place] [address] [place] [address] Sapphire Munguia MD Patient Question (Pt returning your call) 06/17/19 25 4:40 PM EDT Office Visit [address] [address] Oswaldo Harry MD Acute bacterial sinusitis (Primary Dx) 06/17/19 25 Refill [facility] [place] [place] [address] Gross, Viral V, DO Medication Refill 06/12/19 25 Refill [facility] 405 [place] [address] Gross, Viral V, DO Medication Refill 06/06/19 25 Telephone [facility] [place] [place] [address] Gross, Viral V, DO Other (med ) 06/06/19 11:15 AM EDT Clinical Support [facility] [place] [address] Allison Angel RN Uncontrolled type 2 diabetes mellitus with hyperglycemia (HCC) (Primary Dx); CHF (congestive heart failure), NYHA class I, acute on chronic, combined (HCC); Enrolled in chronic care management 05/29/19 Patient Outreach [address] [address] Allison Angel RN CM- Telephonic Outreach; CM-Medication Assistance (Lantus) 05/21/19 4:30 PM EDT Office Visit [facility] [place] [address] Gross, Viral V, DO Uncontrolled type 2 diabetes mellitus with hyperglycemia (HCC) (Primary Dx); Pure hypercholesterolemia; Seasonal allergic rhinitis due to pollen; Acute bronchitis, unspecified organism; Facial rash 05/17/19 [address] [address] Gross, Viral V, DO Refill (clobetasol) 05/08/19 [address] [address] Gross, Viral V, DO Medication Refill 05/06/19 10:15 AM EST Office Visit [facility] [place] [phone] Sapphire Munguia MD ASHD (arteriosclerotic heart disease) (Primary Dx); Dyslipidemia associated with type 2 diabetes mellitus (HCC); S/P CABG x 3 05/05/19 25 Patient Outreach [address] [place] [address] Allison Angel RN CM- Telephonic Outreach; CM-Medication Assistance 05/01/19 [address] [address] Renato Viral V, DO Medication Refill 04/22/19 25 Telephone [facility] [place] [address] [address] Renato Viral V, DO Medication Management ( Disp Refills Start End /insulin glargine (LANTUS SOLOSTAR U-100 INSULIN) 100 unit/mL (3 mL) SubQ Insulin Pen - - 12/19/2023 - /Sig - Route: Subcutaneous (Inject under the skin) 15 Units nightly. - Subcutaneous //) 04/16/19 25 Telephone [facility] [place] [id number] Sapphire Munguia MD Cardiology Clearance 04/15/19 25 Telephone [facility] [place] [address] Pauly Dai RMA Forms 04/08/19 25 1:00 PM EST Office Visit [facility] [address] [address] Carlos A Gross V, DO Tinea corporis (Primary Dx); Acute on chronic systolic congestive heart failure (HCC); Class 2 severe obesity due to excess calories with serious comorbidity and body mass index (BMI) of 35.0 to 35.9 in adult ([facility]); Stage 3b chronic kidney disease (HCC); 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, unspecified whether fdc insulin use (HCC) 04/06/19 25 Refill [facility] [address] [address] Renato Viral V, DO Medication Refill 03/17/19 25 9:00 AM EST Clinical Support [facility] [place] [address] Allison Angel RN Uncontrolled type 2 diabetes mellitus with hyperglycemia (HCC) (Primary Dx); CHF (congestive heart failure), NYHA class I, acute on chronic, combined (HCC); Enrolled in chronic care management 03/01/20 24 Refill [facility] [place] [address] Gross, Viral V, DO Medication Refill 02/15/20 24 Telephone [facility] [place] [address] [place] [address] Gross, Viral V, DO Results (X-Ray) 02/13/20 24 2:11 PM EST - 02/13/20 24 11:59 PM EST Hospital Encounter [facility] [address] [place] [address] Fluid retention in legs; CHF (congestive heart failure), NYHA class I, acute on chronic, combined (HCC); Acute on chronic systolic congestive heart failure (HCC) Discharge Disposition: Home or Self Care 02/13/20 24 2:40 PM EST Office Visit [facility] [place] [address] Gross, Viral V, DO Fluid retention in legs (Primary Dx); CHF (congestive heart failure), NYHA class I, acute on chronic, combined (HCC); Acute on chronic systolic congestive heart failure (HCC); Well adult exam 02/13/20 24 9:00 AM EST Clinical Support [facility] [place] [address] Allison Angel RN Uncontrolled type 2 diabetes mellitus with hyperglycemia (HCC) (Primary Dx); CHF (congestive heart failure), NYHA class I, acute on chronic, combined (HCC) 02/11/20 24 8:31 AM EST - 02/11/20 24 11:59 PM EST Hospital Encounter [facility] [place] [facility] [address] [place] [address] CHF (congestive heart failure), NYHA class I, acute on chronic, combined (HCC) Discharge Disposition: Home or Self Care 02/01/20 24 Orders Only [facility] [place] [address] [place] [address] Juan Carlos Su MA CHF (congestive heart failure), NYHA class I, acute on chronic, combined (HCC) (Primary Dx) 01/31/20 24 Telephone [facility] [place] [address] [place] [address] Gross, Viral V, DO Medication Management (Lasix) 01/24/20 24 Refill [facility] [place] [address] Gross, Viral V, DO Medication Refill 01/22/20 Patient Outreach [facility] [address] [place] [address] Sasha Messer RN CM-Medication Assistance 01/14/20 10:10 AM EST Office Visit [facility] [address] [address] Gross, Viral V, DO Seasonal allergic rhinitis due to pollen (Primary Dx); CHF (congestive heart failure), NYHA class I, acute on chronic, combined (HCC); Acute bronchitis, unspecified organism 01/14/20 9:00 AM EST Clinical Support [address] [address] Allison Angel RN Uncontrolled type 2 diabetes mellitus with hyperglycemia (HCC) (Primary Dx); CHF (congestive heart failure), NYHA class I, acute on chronic, combined (HCC) 01/08/20 10:30 AM EDT Clinical Support [facility] [place] [address] Allison Angel RN Uncontrolled type 2 diabetes mellitus with hyperglycemia (HCC) (Primary Dx); CHF (congestive heart failure), NYHA class I, acute on chronic, combined (HCC) 01/04/20 Patient Outreach [facility] [address] [place] [address] Nicki Michelle Referral 01/04/20 Patient Outreach [facility] [address] [place] [address] Makenzie Mullen RN Hospital Follow Up; Care Transition; CM-Resource Coordination 01/04/20 Patient Outreach [facility] [address] Appointment Location [place] [id number] Cande Petty, JAMISON Hospital Follow Up 01/04/20 11:20 AM EDT Office Visit [facility] [place] [facility] [address] [place] [address] Gross, Viral V, DO CHF (congestive heart failure), NYHA class I, acute on chronic, combined (HCC) (Primary Dx); Acute on chronic systolic congestive heart failure (HCC); Stage 3 chronic kidney disease, unspecified whether stage 3a or 3b CKD (HCC) 01/04/20 10:45 AM EDT Office Visit [facility] NEPHROLOGY [address] [address] Abel Hernandez MD Stage 3a chronic kidney disease (HCC) (Primary Dx); Chronic kidney disease-mineral and bone disorder 12/31/19 7:05 PM EDT - 01/03/20 11:44 AM EDT Hospital Encounter [facility] [address] [place] [address] Momo Castellanos MD CHF (congestive heart failure), NYHA class I, acute on chronic, combined (HCC) Discharge Disposition: Home or Self Care 01/01/20 Orders Only [facility] Nephrology [place] [address] [place] [address] Abel Hernandez MD Stage 3a chronic kidney disease (HCC) (Primary Dx); Vitamin D deficiency 12/31/19 Travel 12/31/19 12:30 PM EDT - 12/31/19 5:52 PM EDT Emergency [facility] [address] [facility] [place] [address] Sixto Jose MD Cho, Soung H, MD Acute on chronic systolic congestive heart failure (HCC) (Primary Dx) Discharge Disposition: Still a Patient 12/31/19 Telephone [facility] [place] [facility] [address] [facility] [place] [address] Gross, Viral V, DO 911/Red Flag (Severely sob) 12/25/19 Telephone [facility] [place] [address] [facility] [place] [address] Renato Viral V, DO Results 12/24/19 24 12:54 PM EDT - 12/24/19 24 11:59 PM EDT Hospital Encounter [facility] [address] [facility] [address] [place], [place] [id number] [phone] Emg, Akbar Edg Peripheral polyneuropathy (Primary Dx); Numbness and tingling of left arm and leg; Numbness and tingling of right arm and leg; Generalized osteoarthritis of multiple sites; Left carpal tunnel syndrome Discharge Disposition: Home or Self Care 12/19/19 24 Orders Only [address] [address] Gross, Viral V, DO Stage 3 chronic kidney disease, unspecified whether stage 3a or 3b CKD (HCC) (Primary Dx); Uncontrolled type 2 diabetes mellitus with hyperglycemia (HCC) 12/12/19 24 2:25 PM EDT - 12/12/19 24 11:59 PM EDT Hospital Encounter [facility] [address] [facility] [place] [address] Uncontrolled type 2 diabetes mellitus with hyperglycemia (HCC); Gastroesophageal reflux disease with esophagitis, unspecified whether hemorrhage; CHF (congestive heart failure), NYHA class I, acute on chronic, combined (HCC) Discharge Disposition: Home or Self Care 12/12/19 24 Telephone [facility] [address] [address] Renato Viral V, DO Results (Chest xray) 12/11/19 24 3:41 PM EDT - 12/11/19 24 11:59 PM EDT Hospital Encounter [facility] [address] [facility] [place] [address] CHF (congestive heart failure), NYHA class I, acute on chronic, combined (HCC) Discharge Disposition: Home or Self Care 12/11/19 24 2:00 PM EDT Clinical Support [address] [address] Allison Angel RN Uncontrolled type 2 diabetes mellitus with hyperglycemia (HCC) (Primary Dx); CHF (congestive heart failure), NYHA class I, acute on chronic, combined (HCC) 12/11/19 24 1:40 PM EDT Office Visit [address] [place] [address] Gross, Viral V, DO CHF (congestive heart failure), NYHA class I, acute on chronic, combined (HCC) (Primary Dx); Uncontrolled type 2 diabetes mellitus with hyperglycemia ([facility]); Gastroesophageal reflux disease with esophagitis, unspecified whether hemorrhage 12/10/19 24 [facility]ill [facility] 405 [place] [address] Gross, Viral V, DO Medication Refill 12/09/19 [address] [place] [address] Gross, Viral V, DO Medication Refill 12/03/19 [address] [place] [address] Gross, Viral V, DO Medication Refill 11/28/19 24 2:00 PM EDT Ancillary Procedure [facility] Care [address] [place] [address] Numbness and tingling of lef t arm and leg; Numbness and tingling of right arm and leg; Generalized osteoarthritis of multiple sites 11/28/19 24 Abstract [facility] 405 [place] [address] Pauly Dai RMA 11/28/19 [address] [place] [address] Gross, Viral V, DO Medication Refill 11/28/19 24 1:30 PM EDT Clinical Support [address] [place] [address] Allison Angel RN Uncontrolled type 2 diabetes mellitus with hyperglycemia ([facility]) (Primary Dx); CHF (congestive heart failure), NYHA class I, acute on chronic, combined ([facility]) 11/28/19 24 1:20 PM EDT Office Visit [address] [address] Gross, Viral V, DO Generalized osteoarthritis of multiple sites (Primary Dx); Numbness and tingling of left arm and leg; Numbness and tingling of right arm and leg 11/26/19 [address] [address] Gross, Viral V, DO Other (/ Disp Refills Start End /insulin glargine (LANTUS SOLOSTAR U-100 INSULIN) 100 unit/mL (3 mL) SubQ Insulin Pen 15 mL 11 08/17/2023 - / //) 11/24/19 [address] [address] Renato Viral V, DO Medication Refill 11/19/19 [address] [address] Renato Viral V, DO Refill ( Disp Refills Start End /Insulin [place], Disposable, (SALENA PEN NEEDLE) 32 gauge x 5/32 Misc Needle 100 Each 11 08/20/2023 - /Sig: Use as directed with insulin //) 11/06/19 24 9:30 AM EDT Office Visit [facility] [address] [phone] Sapphire Munguia MD ASHD (arteriosclerotic heart disease) (Primary Dx); Dyslipidemia associated with type 2 diabetes mellitus (HCC); Ischemic heart disease; S/P CABG x 3 11/02/19 [address] [address] Renato Viral V, DO Refill (fexofenadine-med pended) 11/02/19 24 Telephone [facility]&[address] [address] Sapphire Munguia MD Appointment Needed 10/31/19 9:22 AM EDT - 11/01/19 3:28 PM EDT Hospital Encounter [facility] [address] [place] [address] Sapphire Munguia MD Coronary artery disease due to calcified coronary lesion; Abnormal coronary angiogram; Uncontrolled type 2 diabetes mellitus with hyperglycemia (HCC) Discharge Disposition: Home or Self Care 10/31/19 24 12:00 PM EDT - 10/31/19 24 2:00 PM EDT Surgery [facility] [address] [place] [id number] Sapphire Munguia MD CORONARY ANGIOGRAM / CARDIAC CATHETERIZATION 10/30/19 24 8:43 AM EDT - 10/30/19 24 11:59 PM EDT Hospital Encounter [facility] [address] [place] [address] Discharge Disposition: Home or Self Care 10/27/19 24 Refill [facility] [place] [facility] [address] [place] [address] Renato, Viral V, DO Medication Refill 10/25/19 24 Telephone [facility] [place] [address] [place] [phone] Sapphire Munguia MD Tingling 10/24/19 24 Refill [facility] [place] [facility] [address] [place] [address] Pauly Dai RMA Medication Refill 10/23/19 24 Refill [facility] [place] [address] [address] Edith Oropeza APRN Medication Refill 10/22/19 24 Telephone [facility] [address] [address] Sapphire Munguia MD Prior Authorization (denial received ) 10/17/19 24 Orders Only [facility] [place] [address] [place] [address] Sapphire Munguia MD 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, unspecified vessel or lesion type (Primary Dx); Other forms of angina pectoris (HCC) 10/16/19 24 Telephone [facility] [address] [address] Sapphire Munguia MD Procedure 10/01/19 24 Travel 10/01/19 24 9:00 AM EDT - 10/01/19 10:30 AM EDT Surgery [facility] [place] [address] Sapphire Munguia MD CORONARY ANGIOGRAM WITH GRAFTS / CARDIAC CATHETERIZATION 10/01/19 6:34 AM EDT - 10/01/19 12:20 PM EDT Hospital Encounter [facility] CARD CATH REC [facility] [place] [address] Sapphire Munguia MD Other forms of angina pectoris (HCC); SOB (shortness of breath); ASHD (arteriosclerotic heart disease) Discharge Disposition: Home or Self Care 09/29/19 9:25 AM EDT - 09/29/19 11:59 PM EDT Hospital Encounter [facility] [address] [place] [address] Dyslipidemia associated with type 2 diabetes mellitus (HCC); 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, unspecified vessel or lesion type; S/P CABG x 3; SOB (shortness of breath); Chest pain, unspecified type Discharge Disposition: Home or Self Care 09/27/19 [address] [address] Paula Bourgeois, Food Preparation Supervisor Other (Returning Patient) 09/23/19 24 Refill [facility] [place] [facility] [address] [place] [address] Gross, Viral V, DO Medication Refill 09/21/19 24 Telephone [facility] [place] [facility] [address] [place] [address] Gross, Viral V, DO 911/Red Flag (chest pain w/ SOB) 09/20/19 24 Orders Only [facility] [address] [address] Sapphire Munguia MD 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, unspecified vessel or lesion type (Primary Dx); S/P CABG x 3; SOB (shortness of breath); Chest pain, unspecified type 09/20/19 11:30 AM EDT Office Visit [facility] [address] [id number] He Pineda APRN Dyslipidemia associated with type 2 diabetes mellitus (HCC) (Primary Dx); 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, unspecified vessel or lesion type; Uncontrolled type 2 diabetes mellitus with hyperglycemia (HCC); Ventricular bigeminy; S/P CABG x 3; SOB (shortness of breath); Occlusion of left vertebral artery; Ischemic heart disease; Pure hypercholesterolemia; Other specified hypotension; CHF (congestive heart failure), NYHA class I, acute on chronic, combined (HCC) 09/19/19 Telephone [facility] [address] [address] Lyle Solo MD Results 09/18/19 24 Refill [facility] [address] [place] [address] Edith Oropeza APRN Medication Refill 09/18/19 10:20 AM EDT [facility] [address] [facility] [address] [place] [address] Paula Munguia PA DDD (degenerative disc disease), lumbar 09/18/19 11:00 AM EDT [facility] [address] [address] Paula Munguia PA DDD (degenerative disc disease), lumbar (Primary Dx); Lumbar degenerative disc disease; Chronic low back pain, unspecified back pain laterality, unspecified whether sciatica present; Lumbar pain; Myofascial pain; Lumbar spondylosis 09/17/19 [facility] [address] [place] [address] Carlos A Gross V, DO Orders (lab work) 09/17/19 1:04 PM EDT - 07/08/20 24 11:59 PM EDT Hospital Encounter [facility] Ultrasound [address] [place], [place] [id number] Lyle Solo MD Thyroid nodule Discharge Disposition: Home or Self Care 09/12/19 24 Telephone [facility] [place] [address] [address] Gross, Viral V, DO Medication Management ( Disp Refills Start End /lisinopriL (PRINIVIL;ZESTRIL) 2.5 mg Oral Tablet 90 Tablet 3 06/11/2023 - /Sig: TAKE 1 TABLET BY MOUTH ONCE DAILY . /Sent to pharmacy as: lisinopriL 2.5 mg tablet (PRINIVIL;ZESTril) /E-Prescribing Status: Receipt confirmed by pharmacy (06/11/2023 9:33 AM EDT) //) 09/12/19 24 Refill [facility] [address] [address] Gross, Viral V, DO Medication Refill 09/07/19 24 Telephone [facility] [address] [address] Sapphire Munguia MD Appointment Needed (Pt requesting appt to see Ezra for sob); Shortness of Breath 08/30/19 24 1:50 PM EDT - 08/30/19 24 11:59 PM EDT Hospital Encounter [facility] [address] [address] Uncontrolled type 2 diabetes mellitus with hyperglycemia (HCC); Stage 3a chronic kidney disease (HCC); 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); HTN (hypertension), benign Discharge Disposition: Home or Self Care 08/30/19 24 Refill [facility] [place] [address] [address] Gross, Viral V, DO Medication Refill 08/27/19 24 Telephone [facility] [place] [address] [phone] Gross, Viral V, DO Samples (semaglutide (OZEMPIC) 2 mg/dose (8 mg/3 mL) SubQ Pen Injector ) 08/22/19 24 Refill [facility] [place] [facility] [address] [place] [address] Gross, Viral V, DO Medication Refill 08/21/19 24 Telephone [facility] [address] [place] [address] Gross, Viral V, DO Referral (ortho/spine) 08/21/19 24 Orders Only [facility] [place] [facility] [address] [place] [address] Gross, Viral V, DO Low sodium levels (Primary Dx) 08/20/19 24 Orders Only [facility] Colin [facility] [place] [address] Gross, Viral V, DO Uncontrolled type 2 diabetes mellitus with hyperglycemia (HCC) (Primary Dx) 08/17/19 24 9:54 AM EDT - 08/17/19 24 11:59 PM EDT Hospital Encounter [facility] [address] [place] [address] Uncontrolled type 2 diabetes mellitus with hyperglycemia (HCC); Stage 3 chronic kidney disease, unspecified whether stage 3a or 3b CKD (HCC); Muscle cramps Discharge Disposition: Home or Self Care 08/17/19 24 8:40 AM EDT Office Visit [facility] [address] [place] [address] Gross, Viral V, DO Uncontrolled type 2 diabetes mellitus with hyperglycemia (HCC) (Primary Dx); Stage 3 chronic kidney disease, unspecified whether stage 3a or 3b CKD (HCC); Muscle cramps 08/17/19 24 9:00 AM EDT Office Visit [facility] NEPHROLOGY [place] [address] [place] [address] [place] [address] Abel Hernandez MD Stage 3a chronic kidney disease (HCC) (Primary Dx); HTN (hypertension), benign; 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) 08/16/19 24 Telephone [facility] [place] [address] [place] [address] Renato Viral V, DO Letter for School/Work 08/13/19 24 2:55 PM EDT - 08/13/19 24 11:59 PM EDT Hospital Encounter [facility] [place] [id number] Stage 3b chronic kidney disease (HCC); Edema due to hypervolemia; 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); HTN (hypertension), benign Discharge Disposition: Home or Self Care 08/03/19 24 Refill [facility] [place] [address] Edith Oropeza APRN Medication Refill 07/24/19 24 Refill [facility] [place] [address] Carlos A Gross V, DO Medication Refill 07/18/19 24 11:45 AM EDT Office Visit [facility] [place] [id number] Sapphire Munguia MD 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, unspecified vessel or lesion type (Primary Dx); Mixed hyperlipidemia; S/P CABG x 3; Congestive heart failure, unspecified HF chronicity, unspecified heart failure type ([facility]) 07/16/19 24 4:00 PM EDT Office Visit [facility] [place] [address] [address] Renato Viral V, DO Spondylosis of lumbar region without myelopathy or radiculopathy (Primary Dx); Screening for colon cancer; Essential hypertension; History of TIA (transient ischemic attack) 07/10/19 24 Travel 07/10/19 24 3:11 PM EDT - 07/10/19 24 5:19 PM EDT Emergency [facility] [address] [facility] [place] [address] Mitchell Gaitan MD Acute left-sided low back pain without sciatica (Primary Dx) Discharge Disposition: Home or Self Care 06/29/19 24 Telephone [facility] [address] [place] [address] Carlos A Gross V, DO Medication Refill (one touch ) 06/28/19 24 Patient Outreach [facility] [address] [place] [address] Bryanna Mitchell, RN CM- Telephonic Outreach; Care Transition; CM-Medication Assistance 06/27/19 12:24 PM EDT - 06/27/19 11:59 PM EDT Hospital Encounter [facility] MEDVI STRESS [address] [place] [id number] Sapphire Munguia MD SOB (shortness of breath) on exertion Discharge Disposition: Home or Self Care 06/27/19 24 12:24 PM EDT - 06/27/19 11:59 PM EDT Hospital Encounter [facility] NUCLEAR [address] [place] [address] Sapphire Munguia MD SOB (shortness of breath) on exertion Discharge Disposition: Home or Self Care 06/25/19 24 Orders Only [facility] [address] [address] Maryjane Sotomayor MA 06/25/19 24 Telephone [facility] [place] [address] [place] [address] Sapphire Munguia MD Medication Refill 06/21/19 24 3:45 PM EDT Office Visit [facility] [address] [address] Sapphire Munguia MD 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, unspecified vessel or lesion type (Primary Dx); Mixed hyperlipidemia; Ischemic heart disease; Congestive heart failure, unspecified HF chronicity, unspecified heart failure type (HCC); S/P CABG x 3; Heart murmur; SOB (shortness of breath) on exertion 06/21/19 24 12:20 PM EDT Office Visit [facility] [place] [facility] [address] [place] [address] Lyle Solo MD Mass of right parotid gland (Primary Dx); Thyroid nodule 06/20/19 24 Refill [facility] [place] [facility] 405 [facility] [place] [address] Edith Oropeza APRN Medication Refill 06/11/19 24 Orders Only [facility] [place] [facility] [address] [facility] [place] [address] Thelma Russell RN Uncontrolled type 2 diabetes mellitus with hyperglycemia (HCC) 06/11/19 24 9:00 AM EDT Office Visit [facility] [facility] [address] [facility] [place] [address] Oswaldo Harry MD Essential hypertension (Primary Dx); Weakness of both arms; Uncontrolled type 2 diabetes mellitus with hyperglycemia (HCC) 06/10/19 24 Refill [facility] [place] [facility] [address] [facility] [place] [address] Gross, Viral V, DO Medication Refill 06/09/19 24 Refill [facility] [place] [facility] [address] [facility] [place] [address] Gross, Viral V, DO Medication Refill 06/07/19 24 9:30 PM EDT - 06/08/19 24 12:58 AM EDT Emergency [facility] [address] [place] [address] Piedad Jimenez MD Interscapular pain (Primary Dx) Discharge Disposition: Home or Self Care 06/07/19 24 Travel 06/06/19 24 3:35 PM EDT - 06/06/19 24 11:59 PM EDT Hospital Encounter [facility] Ultrasound [address] [place] [address] Abel Hernandez MD Stage 3b chronic kidney disease (HCC) Discharge Disposition: Home or Self Care 06/05/19 24 5:10 PM EDT Office Visit [facility] [place] [facility] [address] [place] [address] Edith Oropeza APRN Abscess of buttock (Primary Dx); Other forms of angina pectoris 06/04/19 24 Orders Only [facility] Nephrology [address] [place] [address] Abel Hernandez MD Stage 3b chronic kidney disease (HCC) (Primary Dx) 06/04/19 24 1:00 PM EDT Office Visit [facility] Nephrology [place] [address] [place] [address] Abel Hernandez MD Stage 3b chronic kidney disease (HCC) (Primary Dx); 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); HTN (hypertension), benign; Edema due to hypervolemia 05/25/19 24 Refill [facility] [place] [facility] 405 [place] [address] Edith Oropeza APRN Medication Refill 05/20/19 24 Refill [facility] [facility] [address] [place] [address] Gross, Viral V, DO Medication Refill 05/14/19 24 Refill [facility] [facility] 405 [place] [address] Gross, Viral V, DO Medication Refill 05/13/19 24 10:37 AM EST - 05/13/19 24 11:59 PM EST Hospital Encounter [facility] [place] [facility] [address] [place] [address] Mixed hyperlipidemia; Congestive heart failure, unspecified HF chronicity, unspecified heart failure type (HCC); Irritable bowel syndrome with diarrhea; Left lower quadrant abdominal pain; CHF (congestive heart failure), NYHA class I, acute on chronic, combined (HCC); Acute right-sided congestive heart failure (HCC); Type 2 diabetes mellitus with diabetic peripheral angiopathy without gangrene, without long-term current use of insulin (HCC); Class 2 severe obesity due to excess calories with serious comorbidity and body mass index (BMI) of 35.0 to 35.9 in adult (HCC); Dyslipidemia associated with type 2 diabetes mellitus (HCC) Discharge Disposition: Home or Self Care 05/05/19 24 Refill [facility] [place] [facility] 405 [place] [address] Gross, Viral V, DO Medication Refill 04/23/19 24 Refill [facility] [place] [address] [facility] [address] [place] [address] Sapphire Munguia MD Medication Refill 04/23/19 24 Refill [facility] [place] [place] [address] Gross, Viral V, DO Medication Refill 04/23/19 [address] [place] [address] Edith Oropeza APRN Medication Refill 04/11/19 24 4:30 PM EST Office Visit [address] [place] [address] Gross, Viral V, DO Irritable bowel syndrome with diarrhea (Primary Dx); Left lower quadrant abdominal pain; CHF (congestive heart failure), NYHA class I, acute on chronic, combined (HCC); Acute right-sided congestive heart failure (HCC); Type 2 diabetes mellitus with diabetic peripheral angiopathy without gangrene, without long-term current use of insulin (HCC); Class 2 severe obesity due to excess calories with serious comorbidity and body mass index (BMI) of 35.0 to 35.9 in adult ([facility]); Dyslipidemia associated with type 2 diabetes mellitus (HCC); Stage 3 chronic kidney disease, unspecified whether stage 3a or 3b CKD ([facility]) 03/30/19 24 [facility] [place] [address] Bryanna Mitchell, RN CM-Medication Assistance 03/29/19 24 Patient Outreach [facility] [address] [address] Bryanna Mitchell, RN CM- Telephonic Outreach; Care Transition; CM-Medication Assistance 03/27/19 24 Refill [facility] [place] [place] [address] Gross, Viral V, DO Medication Refill 03/20/19 24 Refill [facility] [address] [address] Edith Oropeza APRN Medication Refill 03/19/19 24 Orders Only [facility] [place] [address] [facility] [address] [place] [address] Migdalia Corcoran, RMYoli 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, unspecified vessel or lesion type (Primary Dx); Chest pain, unspecified type 03/16/19 24 Patient Outreach [address] [address] Bryanna Mitchell, RN CM- Telephonic Outreach; Care Transition; CM-Medication Assistance; CM-SDGA 03/07/[address] [address] Gross, Viral V, DO Medication Refill 03/06/20 [address] [address] Gross, Viral V, DO Medication Refill 02/23/20 Patient Outreach [address] [address] Thelma Russell, JAMISON CM-Medication Assistance 02/21/20 5:30 PM EST Office Visit [address] [address] Gross, Viral V, DO Degenerative disc disease, lumbar (Primary Dx); Lumbar radiculopathy, chronic; Generalized osteoarthritis of multiple sites; Type 2 diabetes mellitus with diabetic peripheral angiopathy without gangrene, without long-term current use of insulin (HCC); Well adult exam 02/20/20 23 Patient Outreach [facility] [address] [place] [address] Gross, Viral V, DO Central Patient Navigator Outreach (AWV questionnaire) 02/20/20 8:58 AM EST - 02/20/20 11:59 PM EST Hospital Encounter [facility] [address] [address] Dyslipidemia associated with type 2 diabetes mellitus (HCC); Uncontrolled type 2 diabetes mellitus with hyperglycemia (HCC); Pure hypercholesterolemia Discharge Disposition: Home or Self Care 02/15/20 23 Refill [facility] [place] [place] [address] Gross, Viral V, DO Medication Refill 02/13/20 23 Patient Outreach [facility] [address] [place] [address] Gross, Viral V, DO Central Patient Navigator Outreach (A1c) 02/12/20 23 Refill [facility] [address] [place] [address] Gross, Viral V, DO Medication Refill 02/12/20 23 Refill SE[facility] [address] [place] [address] Edith Oropeza, GRADUATE TEACHER EDUCATION Medication Refill 02/10/20 23 Refill [facility] [address] [address] Gross, Viral V, DO Medication Refill 02/03/20 23 Refill SE[facility] [address] [place] [address] Gross, Viral V, DO Medication Refill 01/31/20 23 Telephone [facility] [address] [address] Gross, Viral V, DO Results (mri) 01/13/20 23 Refill SE[facility] [address] [address] Edith Oropeza, GRADUATE TEACHER EDUCATION Medication Refill 01/13/20 23 Refill SE[facility] [address] [place] [address] Edith Oropeza, GRADUATE TEACHER EDUCATION Medication Refill 12/31/19 23 Refill SE[facility] [address] [place] [address] Gross, Viral V, DO Medication Refill 12/29/[address] [address] Gross, Viral V, DO Medication Refill 12/28/[address] [address] Gross, Viral V, DO Referral (pain specialist ) 12/26/[address] [address] Gross, Viral V, DO Medication Refill 12/21/[address] [address] Gross, Viral V, DO Samples (ozempic) 12/15/19 Patient Outreach [address] [address] Bryanna Mitchell RN CM- Telephonic Outreach; Care Transition; CM-Medication Assistance 12/08/[address] [address] Gross, Viral V, DO Medication Refill (torsemide (DEMADEX) 20 mg Oral Tablet 60 Tablet 1 08/24/2022 /Sig - Route: Take 1 Tablet by mouth Twice daily diuretic. - Oral //) 12/05/[address] [address] Gross, Viral V, DO Medication Management (hydroCHLOROthiazide (HYDRODIURIL) tablet 25 mg [[id number]]/Order DetailsOrdered Dose: 25 mg Route: Oral Frequency: DAILY/Admin Dose: 25 mg /Scheduled Start Date/Time: 08/19/22 0900 End Date/Time: 08/21/22 1020 First Dose: As Scheduled//torsemide (DEMADEX) 20 mg Oral Tablet 60 Tablet 1 08/24/2022 /Sig - Route: Take 1 Tablet by mouth Twice daily diuretic. - Oral ) 11/28/19 2:15 PM EDT Office Visit [facility] [address] [phone] Vladimir Stewart MD Type 2 diabetes mellitus with both eyes affected by mild nonproliferative retinopathy without macular edema, without long-term current use of insulin ([facility]) (Primary Dx); Age-related nuclear cataract of both eyes; Cortical age-related cataract of both eyes; Refractive error 11/09/19 9:15 AM EDT Office Visit [facility] [place] [id number] Sapphire Munguia MD 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, unspecified vessel or lesion type (Primary Dx); Mixed hyperlipidemia; Congestive heart failure, unspecified HF chronicity, unspecified heart failure type ([facility]); S/P CABG x 3 11/03/19 23 Refill [facility] [place] [address] [address] Gross, Viral V, DO Medication Refill 10/30/19 23 Refill [facility] [place] [address] [address] Gross, Viral V, DO Medication Refill 10/18/19 [address] [address] Edith Oropeza APRN Medication Refill 10/14/19 23 11:45 AM EDT - 10/14/19 23 11:59 PM EDT Hospital Encounter [facility] [place] [facility] [address] [place] [address] Serum potassium elevated Discharge Disposition: Home or Self Care 10/05/19 23 Orders Only [facility] [place] [facility] [address] [place] [address] Gross, Viral V, DO Serum potassium elevated (Primary Dx) 10/05/19 23 8:08 AM EDT - 10/05/19 23 11:59 PM EDT Hospital Encounter [facility] Ultrasound [address] [place] [address] Gross, Viral V, DO Thyroid mass Discharge Disposition: Home or Self Care 10/04/19 23 Nurse Triage [facility] [address] [place] [address] Jesusita Marie RN 10/04/19 1:56 PM EDT - 10/04/19 11:59 PM EDT Hospital Encounter [facility] [place] [facility] [address] [place] [address] Thyroid mass Discharge Disposition: Home or Self Care 10/04/19 3:00 PM EDT Office Visit [facility] 7370 [facility] [address] [place] [address] Czirr, Merle, OD Blurred vision, bilateral (Primary Dx); Type 2 diabetes mellitus without retinopathy (HCC); 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; Combined forms of age-related cataract of right eye; Combined forms of age-related cataract of left eye 10/04/19 1:40 PM EDT Office Visit [facility] [place] [facility] [address] [place] [address] Gross, Viral V, DO Cardiomegaly (Primary Dx); Thyroid mass 09/29/19 11:50 AM EDT Office Visit [facility] [facility] [address] [place] [address] Edith Oropeza APRN Sore throat (Primary Dx); Runny nose; Uncontrolled type 2 diabetes mellitus with hyperglycemia (HCC) 09/28/19 1:00 PM EDT Office Visit [facility] [address] [facility] [address] [place] [address] Montserrat Flores, DOMONIQUE,LD Dyslipidemia associated with type 2 diabetes mellitus (HCC) (Primary Dx); Uncontrolled type 2 diabetes mellitus with hyperglycemia (HCC) 09/28/19 8:00 AM EDT Office Visit [facility] [address] [address] Sapphire Munguia MD 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, unspecified vessel or lesion type (Primary Dx); Mixed hyperlipidemia; Congestive heart failure, unspecified HF chronicity, unspecified heart failure type (HCC); S/P CABG x 3 09/24/19 11:56 AM EDT - 09/24/19 11:59 PM EDT Hospital Encounter [facility] [place] [address] [place] [address] Mixed hyperlipidemia; 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, unspecified vessel or lesion type; Ischemic heart disease; S/P CABG x 3; Muscle cramps; Encounter for vitamin deficiency screening; Vitamin D deficiency Discharge Disposition: Home or Self Care 09/23/[address] [address] Gross, Viral V, DO Follow-up (Pt adv that labs have been ordered) 09/23/19 Patient Outreach [address] [address] Thelma Russell RN Care Transition; CM- Telephonic Outreach; CM-Medication Assistance 09/21/19 Telephone [facility] [place] [address] Gross, Viral V, DO Home Health 09/19/[address] [address] Gross, Viral V, DO Medication Management (Not on formulary please change ) 09/14/19 [facility] [address] [address] Gross, Viral V, DO Medication Management ( Disp Refills Start End /ketoconazole (NIZORAL) 2 % Top Cream (Discontinued) 60 g 0 02/20/2022 09/04/2022 /Sig: APPLY TO THE AFFECTED AREA(S) TOPICALLY EVERY DAY /Patient taking differently: APPLY //); Follow-up (Request CT chest done at [facility] ) 09/11/19 23 Refill [facility] [place] [address] Gross, Viral V, DO Medication Refill 09/09/19 [facility] [address] Robyn Rogers, RMA Orders 09/08/19 Patient Outreach [address] [address] Bryanna Mitchell, RN CM-Medication Assistance; CM- Telephonic Outreach; Care Transition 09/06/[address] [address] Gross, Viral V, DO Home Health (FYI for doctor ) 09/05/19 3:10 PM EDT Office Visit [address] [address] Bryanna Mitchell, RN Encounter for support and coordination of transition of care (Primary Dx) 09/05/19 3:00 PM EDT Office Visit [address] [address] Gross, Viral V, DO CHF (congestive heart failure), NYHA class I, acute on chronic, combined (HCC) (Primary Dx); Essential hypertension; Groin hematoma, subsequent encounter 09/02/[address] [address] Robyn Rogers, RMA Other 08/31/19 Patient Outreach [address] [address] Bryanna Mitchell, RN CM- Telephonic Outreach; Care Transition; CM-Medication Assistance 08/26/[address] [address] Gross, Viral V, DO Referral (Diabetic education ) 08/26/19 Telephone [facility] [address] [facility] [address] [place] [address] Agustin Graves MD Patient Education 08/26/19 Patient Outreach [place] [address] [place] [address] Bobby Reynoso, BA, COS Referral 08/26/19 Patient Outreach [facility] [address] [place] [id number] Madeline Bruno RN Hospital Follow Up; Care Transition; CM - Medication Reconciliation; CM-Resource Coordination; CM- Consultation 08/19/19 9:42 PM EDT - 08/25/19 4:26 PM EDT Hospital Encounter [facility] [address] [place] [phone] Leo Clemente MD Discharge Disposition: Home or Self Care 08/19/19 Travel 08/19/19 4:58 PM EDT - 08/19/19 9:04 PM EDT Emergency [facility] [address] [facility] [place], [place] [phone] Jessica Wallis MD Renard, Cruff, MD Acute right-sided congestive heart failure (HCC) (Primary Dx); Fluid retention; Dyspnea, unspecified type Discharge Disposition: Discharge/Readmit 08/19/19 [facility] [address] Gross, Viral V, DO Advice Only (Retaining water) 08/19/19 Orders Only [facility] [place] [id number] Sapphire Munguia MD Congestive heart failure, unspecified HF chronicity, unspecified heart failure type (HCC) (Primary Dx) 08/19/19 Orders Only Adult Med [place] [phone] Nery Yin APRN 08/19/19 2:10 PM EDT Office Visit [facility] [place] [address] [place] [address] Gross, Viral V, DO Localized enlarged lymph nodes (Primary Dx); Inguinal lymphadenopathy; Essential hypertension; Acute bronchitis, unspecified organism 08/18/19 [facility] [address] [place] [address] Gross, Viral V, DO Samples (semaglutide (OZEMPIC) 1 mg/dose) 08/18/19 Telephone [facility] [facility] [address] [place] [address] Renato Viral V, DO Appointment Needed (ed f/u [facility]/ knot below waste line/patient states it is painful ) 08/16/19 Telephone [facility] [address] [id number] Sapphire Munguia MD Other (pt calling in mgs of meds) 08/15/19 Travel 08/15/19 11:15 AM EDT - 08/15/19 11:59 PM EDT Hospital Encounter [facility] [address] [place] [address] [address] [place] [id number] Rosie Gao APRN 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, unspecified vessel or lesion type; Mixed hyperlipidemia; Ischemic heart disease; S/P CABG x 3; Hematoma of groin, initial encounter; Other specified complications of surgical and medical care, not elsewhere classified, initial encounter Discharge Disposition: Home or Self Care 08/15/19 10:00 AM EDT Office Visit [facility] [address] [id number] Rosie Gao APRN 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, unspecified vessel or lesion type (Primary Dx); Mixed hyperlipidemia; Ischemic heart disease; S/P CABG x 3; Other specified complications of surgical and medical care, not elsewhere classified, initial encounter; Congestive heart failure, unspecified HF chronicity, unspecified heart failure type (HCC) 08/12/19 10:00 AM EDT Office Visit [facility] [facility] [address] [place] [address] Renato Viral V, DO Uncontrolled type 2 diabetes mellitus with hyperglycemia (HCC) (Primary Dx); Essential hypertension; History of TIA (transient ischemic attack); Acute on chronic systolic congestive heart failure, NYHA class 2 (HCC) 07/14/19 23 Refill [facility] [facility] [address] [place] [address] Renato Viral V, DO Medication Refill 07/05/[address] [address] Edith Oropeza APRN Medication Refill 06/23/19 1:20 PM EDT Office Visit [facility] [address] [place] [phone] Lyle Solo MD Mass of right parotid gland (Primary Dx) 06/22/19 Patient Outreach [address] [address] Bryanna Mitchell RN CM- Telephonic Outreach; Care Transition; CM-Medication Assistance 06/10/19 Travel 06/10/19 4:50 PM EDT - 06/10/19 6:27 PM EDT Emergency [facility] [address] [facility] [place] [address] Peggy Lama DO Lip laceration, initial encounter (Primary Dx); Facial contusion, initial encounter; Mass of right parotid gland Discharge Disposition: Home or Self Care 05/28/19 9:06 AM EDT - 05/28/19 11:59 PM EDT Hospital Encounter [facility] [address] [address] Uncontrolled type 2 diabetes mellitus with hyperglycemia (HCC); Dyslipidemia associated with type 2 diabetes mellitus (HCC); Screening for thyroid disorder; Screening for prostate cancer Discharge Disposition: Home or Self Care 05/27/19 11:20 AM EDT Office Visit [address] [address] Carlos A Gross V, DO Screening for thyroid disorder (Primary Dx); Atherosclerotic heart disease of kiowa tribe coronary artery with other forms of angina pectoris; Fluid retention in legs; Essential hypertension; Gastroesophageal reflux disease with esophagitis, unspecified whether hemorrhage; Uncontrolled type 2 diabetes mellitus with hyperglycemia (HCC); Dyslipidemia associated with type 2 diabetes mellitus (HCC); History of TIA (transient ischemic attack); Chronic bilateral low back pain with right-sided sciatica; Screening for prostate cancer 05/24/19 Telephone [facility] [address] [place], [place] [phone] Frederic Almaguer APRN Other (WORK COMP, NOT WORK COMP) 05/23/19 [facility] [address] [place] [address] Frederic Almaguer APRN Knee Pain 05/20/19 8:15 AM EST Ancillary Procedure [facility] [place] [address] [place] [id number] Frederic Almaguer APRN Chronic pain of right knee 05/20/19 8:00 AM EST Office Visit [facility] [address] [place], [place] [phone] Frederic Almaguer APRN Osteoarthritis of patellofemoral joints of both knees (Primary Dx); Primary osteoarthritis of left knee; Chronic pain of right knee 05/01/19 Telephone [facility] [address] [place] [id number] Frederic Almaguer APRN Other (WORK COMP, NOT WORK COMP) 04/28/19 1:15 PM EST Ancillary [facility] [facility] [address] [id number] Frederic Almaguer APRN Acute pain of left knee 04/28/19 1:00 PM EST Office Visit [facility] [address] [id number] Frederic Almaguer APRN Primary osteoarthritis of left knee (Primary Dx); Acute pain of left knee 04/26/19 Travel 04/26/19 7:16 PM EST - 04/26/19 8:53 PM EST Emergency [facility] [address] [facility] [place] [address] Peggy Lama DO Injury of left knee, initial encounter (Primary Dx) Discharge Disposition: Home or Self Care 04/20/19 2:15 PM EST Office Visit [facility] [place] [address] [place] [address] [address] [place] [address] Carlie Connolly APRN Lumbar radiculopathy (Primary Dx); Chronic bilateral low back pain with right-sided sciatica; Lumbar spondylosis; Class 2 severe obesity due to excess calories with serious comorbidity and body mass index (BMI) of 35.0 to 35.9 in adult (HCC); Sacroiliitis; Cervical spondylosis 04/11/19 1:45 PM EST Office Visit [facility] [place] [id number] Sapphire Munguia MD 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, unspecified vessel or lesion type (Primary Dx); Mixed hyperlipidemia; Ischemic heart disease; S/P CABG x 3 04/10/[address] [address] Edith Oropeza APRN Medication Refill 04/07/19 9:15 AM EST Office Visit [facility] [address] [address] Vladimir Stewart MD Diabetes mellitus without complication (HCC) (Primary Dx); Combined form of age-related cataract, left eye; Combined form of age-related cataract, right eye; KCS (keratoconjunctivitis sicca) ([facility]); Refractive error 03/27/[address] [address] Carlos A Gross V, DO Samples (Ozempic) 03/23/19 Patient Outreach [address] [address] Bryanna Mitchell RN CM- Telephonic Outreach; Care Transition; CM-Medication Assistance 03/20/19 10:05 AM EST Ancillary Procedure [facility] [address] [address] Renato Viral V, DO Atherosclerotic heart disease of kiowa tribe coronary artery with other forms of angina pectoris; Fluid retention in legs; Angina of effort Discharge Disposition: Home or Self Care 03/20/19 9:40 AM EST Office Visit [address] [address] Gross, Viral V, DO Fluid retention in legs (Primary Dx); Sacroiliitis; Dyslipidemia associated with type 2 diabetes mellitus (HCC); Class 2 severe obesity due to excess calories with serious comorbidity and body mass index (BMI) of 35.0 to 35.9 in adult (HCC); Atherosclerotic heart disease of kiowa tribe coronary artery with other forms of angina pectoris; Angina of effort 03/14/19 23 Telephone [facility] [address] [place] [address] Gross, Viral V, DO Medication Management (ozempic) 03/07/20 22 11:45 AM EST Office Visit [facility] [place] [address] [facility] [address] [place] [address] Jeffy Fuentes MD 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, unspecified vessel or lesion type (Primary Dx); Mixed hyperlipidemia; Chest pain, unspecified type; Ischemic heart disease; S/P CABG x 3 03/06/20 22 Refill [facility] [address] [place] [address] Gross, Viral V, DO Medication Refill 03/06/20 22 Refill [facility] [address] [place] [address] Gross, Viral V, DO Medication Refill 03/04/20 22 Refill [facility] [address] [address] Drea Acuna APRN Medication Refill 02/29/20 22 Telephone [facility] [place] [address] [place] [address] Jeffy Fuentes MD Advice Only (Chest pain ) 02/21/20 Patient Outreach [facility] [address] [place] [address] Patsy Lopez, RN Hospital Follow Up; Care Transition 02/21/20 22 Telephone [facility] [address] [place], [place] [id number] Daphne Cope RN 02/21/20 22 Refill [facility] [address] [place] [address] Gross, Viral V, DO Medication Refill 02/17/20 22 12:11 PM EST - 02/18/20 22 12:37 PM EST Hospital Encounter [facility] [place] [id number] Sapphire Munguia MD Chest pain, unspecified type; Shortness of breath; Dyslipidemia associated with type 2 diabetes mellitus (HCC) Discharge Disposition: Home or Self Care 02/17/20 22 Travel 02/17/20 22 1:30 PM EST - 02/17/20 22 2:30 PM EST Surgery [facility] [place] [id number] Sapphire Munguia MD CORONARY ANGIOGRAM WITH GRAFTS / CARDIAC CATHETERIZATION 02/15/20 22 Refill [facility] [address] [place] [address] Gross, Viral V, DO Medication Refill 02/14/20 22 11:03 AM EST - 02/14/20 22 11:59 PM EST Hospital Encounter [facility] [address] [address] Essential hypertension; Screening for prostate cancer; Chest pain, unspecified type; SOB (shortness of breath) Discharge Disposition: Home or Self Care 02/11/20 22 Orders Only [facility] [address] [address] Sapphire Munguia MD Chest pain, unspecified type (Primary Dx); SOB (shortness of breath) 02/10/20 22 3:15 PM EST Office Visit [facility] [place] [address] [place] [address] Jeffy Fuentes MD Chest pain, unspecified type (Primary Dx); Ischemic heart disease; S/P CABG x 3; Angina of effort 02/04/20 22 Patient Outreach [facility] [address] [place] [address] Paula, Bryanna, RN CM- Telephonic Outreach; Care Transition; CM-Medication Assistance 02/01/20 Patient Outreach [facility] [address] [place] [address] Gross, Viral V, DO Central Order Completion Outreach (colon) 01/31/20 Refill [facility] 405 [place] [address] Gross, Viral V, DO Medication Refill 01/31/20 Telephone [facility] [place] [address] [place] [address] Gross, Viral V, DO Samples (Ozempic) 01/28/20 10:45 AM EST Office Visit [facility] [address] [place] [address] Carlos Langston MD Lumbar spondylosis (Primary Dx); Chronic bilateral low back pain with right-sided sciatica 01/24/20 Telephone [facility] [place] 405 [place] [address] Gross, Viral V, DO Prior Authorization 01/20/20 Refill [facility] [address] [place] [address] Gross, Viral V, DO Medication Refill 01/18/20 22 Refill [facility] [address] [address] Drea Acuna APRN Medication Refill 01/13/20 Travel 01/13/20 1:43 PM EDT - 01/13/20 11:59 PM EDT Hospital Encounter [facility] [address] [place] [address] Carlie Connolly APRN Discharge Disposition: Home or Self Care 01/07/20 Patient Outreach [facility] [address] [place] [address] Bryanna Mitchell, RN CM- Telephonic Outreach; Care Transition; CM-Medication Assistance 01/04/20 Orders Only [facility] [address] [facility] [address] [place] [address] Helena Garay MA Encounter for long-term (current) use of high-risk medication 01/04/20 9:45 AM EDT Office Visit [place] [address] [place] [address] Drea Acuna APRN Chronic bilateral low back pain with right-sided sciatica (Primary Dx); Encounter for long-term (current) use of high-risk medication; Lumbar radiculopathy; Degenerative disc disease, lumbar; Spondylosis of lumbar region without myelopathy or radiculopathy 01/03/20 Patient Outreach [facility] [address] [place] [address] Thelma Russell RN CM-Medication Assistance; Care Transition; Care Management - Face To Face 01/03/20 11:00 AM EDT Office Visit [facility] [address] [place] [address] Edith Oropeza APRN Viral URI (Primary Dx); Neck pain; Runny nose 12/30/19 Travel 12/28/19 Patient Outreach [facility] [address] [place] [address] Bryanna Mitchell RN CM- Telephonic Outreach; Care Transition; CM-Medication Assistance 12/28/19 Telephone [facility] [address] [place] [address] [place] [address] Snow Dove MA Other 12/28/19 Telephone [facility] [address] [place] [address] Carlos A Gross V, DO Other (Back claim ) 12/27/[address] [phone] Agustin Graves MD Samples 12/27/19 22 Telephone [facility] [address] [facility] [place] [address] Gross, Viral V, DO Samples (ozempic) 12/23/19 22 Orders Only [facility] [address] [place] [address] Edith Oropeza APRN Uncontrolled type 2 diabetes mellitus with hyperglycemia (HCC) (Primary Dx) 12/21/19 2:42 PM EDT - 12/21/19 11:59 PM EDT Hospital Encounter [facility] [address] [place] [address] Essential hypertension; Night sweats; Uncontrolled type 2 diabetes mellitus with hyperglycemia (HCC) Discharge Disposition: Home or Self Care 12/21/19 1:40 PM EDT Office Visit [facility] [address] [place] [address] Gross, Viral V, DO Other eczema (Primary Dx); Essential hypertension; Night sweats; Lumbar radiculitis; Sciatica of right side 12/20/19 22 Refill [facility] [address] [facility] [place] [address] Gross, Viral V, DO Medication Refill 12/17/19 22 Telephone [facility] [address] [place] [address] Gross, Viral V, DO Paperwork/forms (handicap placard) 12/15/19 22 Telephone [place] [address] [place] [address] Emerson Scanlon MA Anticoagulation (clopidogreL (PLAVIX) 75 mg Oral Tablet ) 12/15/19 22 11:45 AM EDT Office Visit [place] [address] [place] [address] Carlie Connolly APRN Degenerative disc disease, lumbar (Primary Dx); Chronic bilateral low back pain with right-sided sciatica; Lumbar radiculopathy; Spondylosis of lumbar region without myelopathy or radiculopathy; Anxiety due to invasive procedure; Class 2 severe obesity due to excess calories with serious comorbidity and body mass index (BMI) of 35.0 to 35.9 in adult (HCC) 12/08/19 22 Refill [facility] [place] [address] [place] [address] Gross, Viral V, DO Medication Refill 12/08/19 [address] [facility] [place] [place] [address] Gross, Viral V, DO Medication Refill 12/07/19 [address] [facility] [place] [address] Gross, Viral V, DO Medication Refill 12/06/19 22 Travel 12/06/19 8:42 AM EDT - 12/06/19 11:59 PM EDT Hospital Encounter [facility] [address] [facility] [place] [address] Drea Acuna APRN Chronic bilateral low back pain with right-sided sciatica Discharge Disposition: Home or Self Care 11/24/[address] [address] Gross, Viral V, DO Follow-up (pt called with feedback ) 11/23/19 3:30 PM EDT Office Visit [address] [address] Gross, Viral V, DO Lumbar radiculitis (Primary Dx); Screening for colon cancer; Sciatica of right side; Uncontrolled type 2 diabetes mellitus with hyperglycemia (HCC); Well adult exam 11/19/19 [facility] [address] Gross, Viral V, DO Symptom Call 11/17/19 Telephone [facility] [address] [place] [address] Carlos Langston MD Other (Continued increase pain) 11/16/19 22 Patient Outreach [facility] [address] [place] [address] Betty Hassan BS, SHREYAS ED Follow-Up Call 11/16/19 1:30 PM EDT Office Visit [address] [address] Drea Acuna APRN Chronic bilateral low back pain with right-sided sciatica (Primary Dx); Sacroiliitis 11/15/19 2:09 PM EDT - 11/15/19 2:38 PM EDT Emergency [facility] [address] [place] [address] Jessica Wallis MD Acute exacerbation of chronic low back pain (Primary Dx) Discharge Disposition: Home or Self Care 10/30/19 22 Refill [facility] [address] [place] [address] Gross, Viral V, DO Medication Refill 10/26/19 22 Refill [facility] [address] [place] [address] Gross, Viral V, DO Medication Refill 10/24/19 22 Refill [facility] [address] [place] [address] Gross, Viral V, DO Medication Refill 10/21/19 22 Patient Outreach [facility] [address] [place], [place] [id number] Gross, Viral V, DO Central Order Completion Outreach (cologuard) 10/21/19 22 9:15 AM EDT Office Visit [facility] [place] [address] [place] [address] Nikunj Laboy, DPM Bunionette of right foot (Primary Dx); Pain in right foot 10/13/19 22 Refill [facility] [address] [place] [address] Gross, Viral V, DO Medication Refill 10/05/19 Patient Outreach [facility] [address] [place], [place] [id number] Betty Hassan BS, SHREYAS ED Follow-Up Call 10/04/19 Travel 10/04/19 4:32 PM EDT - 10/04/19 8:38 PM EDT Emergency [facility] [address] [place], [place] [id number] Philip Phillip MD Fall, initial encounter (Primary Dx); Strain of lumbar region, initial encounter; Thoracic myofascial strain, initial encounter Discharge Disposition: Home or Self Care 09/28/19 Telephone [facility] [address] [address] Shell Navarro RMA Central Order Completion Outreach 09/23/19 11:30 AM EDT Office Visit [facility] Pod[facility]ry [address] [address] Nikunj Laboy, DPM Bunionette of right foot (Primary Dx); Metatarsus adductus of both feet; Diabetic polyneuropathy associated with type 2 diabetes mellitus (HCC); Toe pain, right; Ulcer of right foot, limited to breakdown of skin (HCC) 09/09/19 8:00 AM EDT Office Visit [facility] Podiatry [address] [address] Nikunj Laboy DPM Diabetic polyneuropathy associated with type 2 diabetes mellitus (HCC) (Primary Dx); Hammer toe of right foot; Metatarsus adductus of both feet; Bunionette of right foot 09/08/19 22 [facility]ill [facility] [address] Gross, Viral V, DO Medication Refill 09/08/19 22 Refill [facility] [address] [place] [address] Gross, Viral V, DO Medication Refill 08/30/19 10:45 AM EDT Ancillary Procedure [facility] [address] [address] Ulcer of right foot with fat layer exposed (HCC); Diabetic polyneuropathy associated with type 2 diabetes mellitus (HCC); Hammer toe of right foot; Toe pain, right 08/30/19 9:30 AM EDT Office Visit [facility] [address] [phone] Eloy Carter DPM Ulcer of right foot with fat layer exposed (HCC) (Primary Dx); Diabetic polyneuropathy associated with type 2 diabetes mellitus (HCC); Cellulitis of toe of left foot; Hammer toe of right foot; Toe pain, right; Metatarsus adductus of right foot 08/23/19 3:50 PM EDT Office Visit [address] [address] Carlos A Gross V, DO Obesity, Class I, BMI 30-34.9 (Primary Dx); Essential hypertension; Dyslipidemia associated with type 2 diabetes mellitus (HCC); Gastroesophageal reflux disease with esophagitis, unspecified whether hemorrhage; Screening for prostate cancer 08/23/19 11:30 AM EDT Office Visit [facility] [place] [address] [place] [address] Jeffy Fuentes MD S/P CABG x 3 (Primary Dx) 08/20/19 22 Travel 08/20/19 8:44 AM EDT - 08/20/19 11:59 PM EDT Hospital Encounter [facility] [address] [place] [address] Jeffy Fuentes MD SOB (shortness of breath); Ischemic heart disease; S/P CABG x 3 Discharge Disposition: Home or Self Care 08/18/19 1:15 PM EDT Office Visit [facility] [place] [address] [place] [address] Jasper Tabares DPM Blister of right foot, initial encounter (Primary Dx); Ulcer of right foot, limited to breakdown of skin (HCC); Uncontrolled type 2 diabetes mellitus with hyperglycemia (HCC) 08/17/19 22 Refill [facility] [address] [place] [address] Gross, Viral V, DO Medication Refill (need several meds refilled.) 08/17/19 22 11:20 AM EDT Office Visit [facility] [address] [place] [address] Owsaldo Harry MD Right foot pain (Primary Dx) 08/11/19 22 Refill [facility] [address] [place] [address] Gross, Viral V, DO Central Patient Navigator Outreach (Med refill 1st) 08/02/19 22 Orders Only [facility] [address] [place] [address] Gross, Viral V, DO Screening for colon cancer; Screening for cancer of the rectum 07/13/19 22 9:15 AM EDT Office Visit [facility] [address] [place] [address] Araceli Garibay APRN Cervical spondylosis (Primary Dx); DDD (degenerative disc disease), cervical; Degenerative disc disease, lumbar; Lumbar radiculopathy 07/09/19 22 Travel 07/09/19 22 8:30 AM EDT Office Visit [facility] [address] [address] Jeffy Fuentes MD SOB (shortness of breath) (Primary Dx); Ischemic heart disease; S/P CABG x 3; Heart murmur 07/09/19 22 1:54 PM EDT - 07/09/19 22 11:59 PM EDT Hospital Encounter [facility] [address] [place] [address] [address] [place] [address] Drea Acuna APRN Cervical spondylosis Discharge Disposition: Home or Self Care 06/25/19 22 Travel 06/25/19 22 1:29 PM EDT - 06/25/19 22 11:59 PM EDT Hospital Encounter [facility] [address] [facility] Building [address] 4[address] [place] [address] Drea Acuna APRN Sacroiliitis Discharge Disposition: Home or Self Care 06/24/19 1:15 PM EDT Office Visit [facility] [address] [facility] [address] [place] [address] Vladimir Stewart MD Diabetes mellitus without complication (HCC) (Primary Dx); KCS (keratoconjunctivitis sicca) (HCC) 06/21/19 10:40 AM EDT Office Visit [address] [address] Agustin Graves MD Dyslipidemia associated with type 2 diabetes mellitus (HCC) (Primary Dx); Vitamin D deficiency; Vitamin B12 deficiency 06/16/19 22 Travel 06/16/19 22 7:47 AM EDT - 06/16/19 11:59 PM EDT Hospital Encounter [facility] [address] [place] [address] Dyslipidemia associated with type 2 diabetes mellitus (HCC); Vitamin D deficiency; Vitamin B12 deficiency Discharge Disposition: Home or Self Care 06/15/19 Telephone [facility] [address] [address] Agustin Graves MD Labs Only (reminder call) 06/04/19 22 Telephone [facility] [address] [place] [address] Gross, Viral V, DO Medication Management 05/31/19 22 10:45 AM EDT Office Visit [facility] [address] [place] [address] Drea Acuna APRN Sacroiliitis (Primary Dx); Cervical spondylosis; DDD (degenerative disc disease), cervical; Degenerative disc disease, lumbar 05/27/19 22 Refill [facility] [address] [place] [address] Gross, Viral V, DO Medication Refill 05/26/19 22 Refill [facility] [address] [place] [address] Gross, Viral V, DO Medication Refill 05/25/19 22 Telephone [facility] [address] [place] [phone] Drea Acuna APRN Results (MRI) 05/23/19 22 Orders Only [facility] [place] [address] [place] [address] [address] [place] [phone] Drea Acuna APRN Cervical spondylolysis (Primary Dx); Cervical spondylosis 05/21/19 7:43 AM EST - 05/21/19 22 11:59 PM EST Hospital Encounter [facility] [place] [facility] [address] [place] [address] Diarrhea, unspecified type Discharge Disposition: Home or Self Care 05/20/19 22 Travel 05/20/19 22 1:10 PM EST Office Visit [facility] [address] [facility] [place] [address] Ruthy Montaño MD Diarrhea, unspecified type (Primary Dx) 05/19/19 22 Refill [facility] [address] [place] [address] Gross, Viral V, DO Medication Refill 05/14/19 22 Orders Only [facility] [address] [facility] [place] [address] Edith Oropeza APRN Uncontrolled type 2 diabetes mellitus with hyperglycemia (HCC) (Primary Dx) 05/09/19 22 Telephone [facility] [address] [place] [address] Gross, Viral V, DO Medication Management (metFORMIN XR) 04/29/19 22 Refill [facility] [address] [facility] [place] [address] Gross, Viral V, DO Medication Refill 04/29/19 22 Travel 04/29/19 22 7:29 AM EST - 04/29/19 22 11:59 PM EST Hospital Encounter [facility] [address] [place] [address] Drea Acuna APRN DDD (degenerative disc disease), cervical Discharge Disposition: Home or Self Care 04/22/19 22 Travel 04/22/19 22 3:00 PM EST - 04/22/19 22 11:59 PM EST Hospital Encounter [facility] [address] [place] [address]. [place] [id number] Naveen Lockwood MD Dizziness and giddiness Discharge Disposition: Home or Self Care 04/18/19 22 8:45 AM EST Office Visit [address] [place] [address] Drea Acuna APRN DDD (degenerative disc disease), cervical (Primary Dx); Lumbar radiculopathy; Degenerative disc disease, lumbar; Spondylosis of lumbar region without myelopathy or radiculopathy 04/13/19 22 Refill [facility] [address] [place] [address] Vernon Salinas MD Medication Refill 04/12/19 22 Telephone [facility] [address] [place] [address] Carlos A Gross V, DO Medication Management (accu chek glucometer) 04/06/19 22 3:15 PM EST Office Visit [facility] [address] [phone] Naveen [place] MD Dizziness and giddiness (Primary Dx) 04/05/19 22 Travel 04/05/19 22 7:39 AM EST - 04/05/19 22 11:59 PM EST Hospital Encounter [facility] [address] [place] [address] Holley Torres APRN Spondylosis of lumbar region without myelopathy or radiculopathy Discharge Disposition: Home or Self Care 04/04/19 22 Travel 01/24/20 22 9:45 AM EST Office Visit [facility] [address] [phone] Vladimir [place] MD Diabetes mellitus without complication (HCC) (Primary Dx); KCS (keratoconjunctivitis sicca) (HCC); Floppy eyelid syndrome of both eyes; Arcus senilis of both corneas; Combined form of age-related cataract, right eye; Combined form of age-related cataract, left eye; Carotid artery insufficiency syndrome; Blurred vision 04/01/19 Telephone [facility] [address] [place] [address] Gross, Viral V, DO Diabetes 04/01/19 Refill [facility] [place] 405 [place] [address] Gross, Viral V, DO Medication Refill 03/29/19 Telephone [facility] [place] [address] [place] [address] Rosie May, [place] Prior Authorization 03/19/19 22 Refill [facility] [address] [place] [address] Omi Daly, DO Medication Refill 03/16/19 Telephone [facility] [address] [address] Agustin Graves MD Samples 03/14/19 [facility] 405 [place] [address] Gross, Viral V, DO Prior Authorization (COLOGUARD ) 03/14/19 22 Travel 03/14/19 8:40 AM EST Office Visit [facility] 1500 [facility] [address] [place] [address] Agustin Graves MD Dyslipidemia associated with type 2 diabetes mellitus (HCC) (Primary Dx); Vitamin D deficiency; Vitamin B12 deficiency 03/09/20 21 Refill [facility] [address] [place] [address] Gross, Viral V, DO Medication Refill 03/09/20 21 Travel 03/09/20 8:32 AM EST - 03/09/20 11:59 PM EST Hospital Encounter [facility] [place] [facility] [address] [place] [address] Dyslipidemia associated with type 2 diabetes mellitus (HCC); Vitamin D deficiency; Vitamin B12 deficiency Discharge Disposition: Home or Self Care 03/07/20 [address] [place] [address] Agustin Graves MD Labs Only 02/17/20 [address] [place] [address] Carlos Langston MD Anticoagulation (Plavix ) 02/16/20 Patient Outreach [facility] [address] [place] [address] Gross, Viral V, DO Results (IRIS) 02/15/20 Travel 02/15/20 9:30 AM EST Office Visit [address] [place] [address] Holley Torres APRN Lumbar radiculopathy (Primary Dx); Degenerative disc disease, lumbar; Chronic right-sided low back pain with right-sided sciatica; Spondylosis of lumbar region without myelopathy or radiculopathy; Class 2 severe obesity due to excess calories with serious comorbidity and body mass index (BMI) of 35.0 to 35.9 in adult (HCC); Dyslipidemia associated with type 2 diabetes mellitus (HCC) 02/15/20 21 1:10 PM EST Office Visit [facility] [address] [place] [address] Oswaldo Harry MD Abscess (Primary Dx); Type 2 diabetes mellitus without complication, unspecified 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 insulin use (HCC) 02/11/20 21 Refill [facility] [address] [place] [address] Dejuan Rosario APRN Medication Refill 02/10/20 21 Refill [facility] [address] [place] [address] Carlos A Gross V, DO Medication Refill 02/09/20 21 Travel 02/09/20 21 9:18 AM EST - 02/09/20 11:59 PM EST Hospital Encounter [facility] [address] [place] [address] [address] 4[address] Floor [address] [place] [address] Carlos Langston MD Lumbar radiculopathy Discharge Disposition: Home or Self Care 02/05/20 21 Refill [facility] [address] [place] [address] Omi Daly, DO Medication Refill 01/28/20 [address] [place] [address] Agustin Graves MD Blood Sugar Problem (Question) 01/28/20 Orders Only [address] [place] [address] Carlos Langston MD Lumbar radiculopathy (Primary Dx) 01/28/20 Travel 01/28/20 8:45 AM EST - 01/28/20 11:59 PM EST Hospital Encounter [facility] [address] [place] [address] Drea Acuna APRN Chronic right-sided low back pain with right-sided sciatica; Degenerative disc disease, lumbar Discharge Disposition: Home or Self Care 01/16/20 21 Travel 01/16/20 12:15 PM EDT Office Visit [facility] [address] [place] [address] Dolly Lovett APRN Acute left otitis media (Primary Dx) 01/11/20 21 Travel 01/11/20 9:00 AM EDT Office Visit [facility] [place] [address] [place] [address] [address] [place] [address] Araceli Garibay APRN Degenerative disc disease, lumbar (Primary Dx); Lumbar radiculopathy 01/09/20 Refill [facility] [address] [place] [address] Gross, Viral V, DO Medication Refill 01/08/20 21 Refill [facility] [address] [place] [address] Gross, Viral V, DO Medication Refill 01/07/20 21 Telephone [facility] [address] [place] [address] Drea Acuna APRN Results (MRI-L) 01/05/20 Travel 01/05/20 8:35 AM EDT - 01/05/20 11:59 PM EDT Hospital Encounter [facility] [address] [place] [address] Drea Acuna APRN Chronic right-sided low back pain with right-sided sciatica Discharge Disposition: Home or Self Care 01/04/20 Patient Outreach [facility] [address] [place] [id number] Kandace Mario BA, COS ED Follow-Up Call 01/01/20 Travel 01/01/20 2:25 PM EDT - 01/01/20 3:47 PM EDT [facility] [address] [place] [address] Jay Jay Jimenez MD Acute exacerbation of chronic low back pain (Primary Dx) Discharge Disposition: Home or Self Care 12/29/19 Patient Outreach [facility] [address] [place] [address] Kandace Mario BA, COS ED Follow-Up Call 12/28/19 Travel 12/28/19 5:00 PM EDT - 12/28/19 5:49 PM EDT [facility] [address] [place] [address] Lyle Mandel MD Right-sided low back pain with bilateral sciatica, unspecified chronicity (Primary Dx) Discharge Disposition: Home or Self Care 12/21/19 Telephone [facility] [address] [place] [address] Drea Acuna APRN Anticoagulation (Plavix) 12/21/19 Travel 12/21/19 Refill [facility] [address] [place] [address] Gross, Viral V, DO Medication Refill 12/21/19 1:00 PM EDT Office Visit [facility] [address] [place] [phone] Drea Acuna APRN Chronic right-sided low back pain with right-sided sciatica (Primary Dx); Degenerative disc disease, lumbar 11/30/19 Travel 11/30/19 4:30 PM EDT Office Visit [facility] [address] [place] [address] Gross, Viral V, DO Uncontrolled type 2 diabetes mellitus with hyperglycemia (HCC) (Primary Dx); Screening for colon cancer; Dyslipidemia associated with type 2 diabetes mellitus (HCC); Essential hypertension; Well adult exam 11/26/19 Travel 11/26/19 8:00 AM EDT Office Visit [facility] [address] [address] Agustin Graves MD Dyslipidemia associated with type 2 diabetes mellitus (HCC) (Primary Dx); Vitamin D deficiency; Vitamin B12 deficiency 11/25/19 Refill [facility] [address] [place] [address] Gross, Viral V, DO Medication Refill (ibuprofen (ADVIL;MOTRIN) 800 mg Oral Tablet (Discontinued)90 Tab//) 11/21/19 21 Travel 11/21/19 10:10 AM EDT - 11/21/19 11:59 PM EDT Hospital Encounter [facility] [address] Dyslipidemia associated with type 2 diabetes mellitus (HCC); Vitamin D deficiency; Vitamin B12 deficiency Discharge Disposition: Home or Self Care 11/09/19 Telephone [facility] [address] [address] Gross, Viral V, DO Medication Management 10/29/19 Travel 10/29/19 9:00 AM EDT Office Visit [facility] [address] [address] Jeffy Fuentes MD Ischemic heart disease (Primary Dx); S/P CABG x 3 10/28/19 21 Refill [facility] [address] [place] [address] Dejuan Rosario APRN Medication Refill 10/20/19 21 Telephone [facility] [address] [address] Gross, Viral V, DO Medication Management (lisinopriL (PRINIVIL;ZESTRIL) 5 mg Oral [id number] Tab) 10/20/19 21 Refill [facility] [address] [address] Gross, Viral V, DO Medication Refill (semaglutide (OZEMPIC) 1 mg/dose (2 mg/1.5 mL), atorvastatin (LIPITOR) 80 mg Oral [id number] Tab) 10/02/19 21 Travel 10/02/19 4:20 PM EDT [facility] [address] Gross, Viral V, DO Dyslipidemia associated with type 2 diabetes mellitus (HCC) (Primary Dx); Seasonal allergic rhinitis, unspecified trigger; Uncontrolled type 2 diabetes mellitus with hyperglycemia (HCC); Essential hypertension; Gastroesophageal reflux disease with esophagitis, unspecified whether hemorrhage; BPH with urinary obstruction; Generalized osteoarthritis of multiple sites; History of TIA (transient ischemic attack) 09/25/19 21 Refill [facility] 405 [place] [address] Carlos A Gross V, DO Medication Refill 09/17/19 21 Patient Outreach [facility] [address] [place] [address] Carlos A Gross V, DO Central Patient Navigator Outreach (med refill 1) 09/16/19 21 Refill [facility] 100 [place] [address] Omi Daly, DO Medication Refill 09/07/19 21 Refill [facility] 100 [place] [address] Omi Daly, DO Medication Refill 09/01/19 21 Orders Only [facility] 405 [place] [address] Rosie May, JORGE Seasonal allergic rhinitis, unspecified trigger; Muscle spasm 09/01/19 21 Patient Outreach [facility] [address] [place] [address] Carlos A Gross V, Central Patient Navigator Outreach (Medication Refill Appointment-1st) 09/01/19 21 Refill [facility] 100 [place] [address] Omi Daly, DO Medication Refill 08/11/19 21 Refill [facility] 100 [place] [address] Omi Daly, DO Medication Refill 08/01/19 21 Refill [facility] 100 [place] [address] Vernon Salinas MD Medication Refill 07/28/19 21 Refill [facility] 100 [place] [address] Omi Daly, DO Medication Refill 07/28/19 Plan of Care Documentation [facility] [address] [address] 07/28/19 Travel 07/28/19 5:00 PM EDT Office Visit [facility] [address] [address] Porsha Chamberlain, PT Primary osteoarthritis, right shoulder 07/23/19 Travel 07/23/19 9:15 AM EDT Office Visit [facility] [place] [address] [place] [phone] Jeffy Fuentes MD 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, unspecified vessel or lesion type (Primary Dx); S/P CABG x 3; Encounter for pre-operative cardiovascular clearance 07/15/19 21 Refill [facility] [address] [place] [address] Omi Daly, DO Medication Refill 07/14/19 Travel 07/14/19 8:00 AM EDT Office Visit [facility] [address] [place] [address] Billy Foley MD Other secondary osteoarthritis of right shoulder (Primary Dx); Complete tear of right rotator cuff, unspecified whether traumatic 07/09/19 21 [facility] [address] [place] [address] Gross, Viral V, DO 07/08/19 21 Refill [facility] [address] [place] [address] Omi Daly, DO Medication Refill 06/25/19 21 Refill [facility] [address] [place] [address] Omi Daly, DO Medication Refill 06/24/19 Travel 06/24/19 10:45 AM EDT Office Visit [facility] [address] [facility] [address] [place] [address] Jeffy Fuentes MD Ischemic heart disease (Primary Dx); 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, unspecified vessel or lesion type; S/P CABG x 3; Ventricular bigeminy 06/18/19 Orders Only [facility] [address] [place] [address] AndrewCammy campoverde RMA 06/17/19 8:01 AM EDT - 06/17/19 11:59 PM EDT Hospital Encounter [facility] [address] [place] [address] Encounter for screening for malignant neoplasm of prostate ; ED (erectile dysfunction) of non-organic origin; Testosterone deficiency; Decreased libido; Uncontrolled type 2 diabetes mellitus with hyperglycemia (HCC); Essential hypertension Discharge Disposition: Home or Self Care 06/16/19 Travel 06/16/19 6:10 PM EDT Office Visit [facility] [address] [place] [address] Carlos A Gross DO Testosterone deficiency (Primary Dx); ED (erectile dysfunction) of non-organic origin; Decreased libido; Uncontrolled type 2 diabetes mellitus with hyperglycemia (HCC); Essential hypertension; Encounter for screening for malignant neoplasm of prostate ; BPH with urinary obstruction 06/13/19 Travel 06/13/19 8:15 AM EDT Office Visit [facility] [address] [place] [address] Vernon Salinas MD Pre-op examination (Primary Dx); Chronic right shoulder pain 06/09/19 Telephone [facility] [address] [place] [address] Omi Daly DO Medication Management (Cetirizine) 06/09/19 Travel 06/03/19 21 Travel 05/29/19 21 Refill [facility] [address] [place] [address] Omi Daly DO Medication Refill 05/26/19 Travel 05/25/19 21 Telephone [facility] 100 [place] [address] Omi Daly DO Prior Authorization (OneTouch Ultra test strips ) 05/25/19 21 Refill [facility] [address] [place] [address] Omi Daly, DO Medication Refill 05/20/19 21 Travel 05/15/19 21 Refill [facility] [place] [address] [facility] [address] [place] [address] Ina Overton MD Medication Refill 05/14/19 21 Refill [facility] 100 [facility] [place] [address] Omi Daly, DO Medication Refill 05/14/19 21 Travel 05/14/19 21 8:10 AM EST Office Visit [facility] [address] [facility] [address] [place] [address] Agustin Graves MD Dyslipidemia associated with type 2 diabetes mellitus (HCC) (Primary Dx); Vitamin D deficiency; Vitamin B12 deficiency 05/09/19 21 9:11 AM EST - 05/09/19 21 11:59 PM EST Hospital Encounter [facility] [address] [place] [address] Vitamin B12 deficiency (Primary Dx) Discharge Disposition: Home or Self Care 05/08/19 21 11:58 AM EST - 05/08/19 21 11:59 PM EST Hospital Encounter [facility] [address] [place], [place] [id number] Dyslipidemia associated with type 2 diabetes mellitus (HCC); Vitamin D deficiency; Vitamin B12 deficiency Discharge Disposition: Home or Self Care 05/08/19 21 Travel 04/30/19 21 Orders Only [facility] [address] [place] [address] Omi Daly, Screening for colon cancer; Screening for cancer of the rectum 04/12/19 21 Refill [facility] 100 [place] [address] Omi Daly, DO Medication Refill 04/03/19 21 Refill [facility] 100 [facility] [place] [address] Omi Daly, DO Medication Refill 03/31/19 Travel 03/23/19 Refill [facility] [address] [place] [address] Omi Daly, DO Medication Refill 03/21/19 21 Refill [facility] 100 [facility] [place] [address] Vernon Salinas MD Medication Refill 03/19/19 Telephone [facility] [address] [facility] [address] Omi Daly, DO Medication Management (metFORMIN XR (GLUCOPHAGE-XR) 500 mg Oral Tablet Sustained Release 24 hr) 02/10/20 Refill [facility] [address] [facility] [address] Omi Daly, DO Medication Refill 02/02/20 Telephone [facility] [address] [address] Dank Palacio MD No Show 02/02/20 Refill [facility] [address] [facility] [address] Omi Daly, DO Medication Refill 01/29/20 Travel 01/29/20 8:45 AM EST Office Visit [facility] [address] [address] Nikunj Laboy, DPM Uncontrolled type 2 diabetes mellitus with hyperglycemia (HCC) (Primary Dx); Paronychia of great toe of left foot; Cellulitis of left foot 01/27/20 20 Refill [facility] [address] [place] [address] Omi Daly, DO Medication Refill 01/21/20 Travel 01/19/20 20 Refill [facility] 100 [facility] [place] [address] Vernon Salinas MD Medication Refill 01/19/20 Travel 01/19/20 2:40 PM EST Office Visit [facility] [address] [place] [address] Lyle Solo MD Parotid pleomorphic adenoma (Primary Dx); THAI (obstructive sleep apnea); Snoring 01/19/20 7:30 AM EST Office Visit [facility] [address] [facility] [address] [place] [address] Agustin Graves MD Dyslipidemia associated with type 2 diabetes mellitus (HCC) (Primary Dx); Vitamin D deficiency; Vitamin B12 deficiency 01/16/20 7:49 AM EST - 01/16/20 11:59 PM EST Hospital Encounter [facility] [address] [place] [address] Dyslipidemia associated with type 2 diabetes mellitus (HCC); Vitamin B12 deficiency Discharge Disposition: Home or Self Care 01/16/20 Travel 01/14/20 Refill [facility] [address] [place] [address] Omi Daly DO Medication Refill (tamsulosin (FLOMAX) 0.4 mg Oral [id number] ) 01/13/20 Travel 01/13/20 11:49 AM EST - 01/13/20 11:59 PM EST Hospital Encounter [facility] [place] [address] Lyle Solo MD Morgan, Stephen R, DO Parotid mass Discharge Disposition: Home or Self Care 01/09/20 Travel 01/09/20 1:42 PM EDT - 01/09/20 11:59 PM EDT Hospital Encounter [facility] [address] [place] [address] Covid19, [facility] Pre-op testing; Encounter for laboratory testing for COVID-19 virus Discharge Disposition: Home or Self Care 01/06/20 Travel 01/02/20 Refill [facility] [address] [place] [address] Vernon Salinas MD Medication Refill 01/01/20 Travel 01/01/20 9:00 AM EDT Office Visit [facility] [address] [phone] Nikunj Laboy, DPM Cellulitis of left foot (Primary Dx); Uncontrolled type 2 diabetes mellitus with hyperglycemia (HCC); Foot cramps; Paronychia of great toe of left foot 12/26/19 Patient Outreach [facility] [address] [place] [address] Alondra Menchaca PharmD Medication Management (Adherence Outreach) 12/18/19 Telephone [facility] 100 [place] [address] Omi Daly DO Referral 12/17/19 Refill [facility] [address] [address] Vernon Salinas MD Medication Refill 12/15/19 Travel 12/15/19 2:40 PM EDT Office Visit [facility] [address] [address] Lyle Solo MD Parotid mass (Primary Dx); Hx of fdc use of blood thinners 12/15/19 9:40 AM EDT Office Visit [facility] [address] [address] Alva Zelaya PA-C Urinary frequency (Primary Dx); BPH with obstruction/lower urinary tract symptoms; Incomplete emptying of bladder 12/12/19 Telephone [facility] 100 [facility] [place] [address] Omi Daly DO Referral; Medication Management 12/10/19 Telephone [facility] [address] [place] [address] Omi Daly DO Medication Refill 12/09/19 Telephone [facility] [address] [place] [address] Omi Daly DO Referral Follow-up 12/08/19 10:00 AM EDT Office Visit [facility] [address] [place] [address] Elba Tapia, RN Encounter for support and coordination of transition of care (Primary Dx) 12/08/19 Travel 12/08/19 9:45 AM EDT Office Visit [facility] [address] [place] [address] Omi Daly DO History of TIA (transient ischemic attack) (Primary Dx); Parotid mass; Essential hypertension 12/06/19 Telephone [facility] [address] [place] [address] Oim Daly DO Medication Refill 12/05/19 Travel 12/04/19 Telephone [facility] [address] [place] [address] Marleen Cam, Clerical Staff Other; Procedure (US Parotid Biopsy ) 12/04/19 Patient Outreach [facility] [address] [place] [address] Sasha Messer, [facility] Follow Up; ED Follow-Up Call; Care Transition; CM - Medication Reconciliation 12/03/19 Orders Only Adult Med [address] [facility] [place] [address] Geri Garcia PA Parotid mass (Primary Dx) 12/01/19 9:23 PM EDT - 12/03/19 5:38 PM EDT Hospital Encounter [facility] [address] [facility] [place] [address] Jordan Eduardo MD Transient ischemic attack, anterior circulation, acute (Primary Dx) Discharge Disposition: Home or Self Care 12/02/19 Travel 12/01/19 Travel 12/01/19 4:15 PM EDT - 12/01/19 8:36 PM EDT [facility] [address] [place] [address] Alma Villegas MD Adler, Jordan M, MD TIA (transient ischemic attack) (Primary Dx); Occlusion of left vertebral artery Discharge Disposition: Discharge/Readmit 11/28/19 Travel 11/28/19 8:30 AM EDT Office Visit [facility] [address] [place] [address] Omi Daly DO Annual physical exam (Primary Dx); Type 2 diabetes mellitus without complication, without long-term current use of insulin (HCC); Essential hypertension; Sacroiliitis; Class 2 severe obesity due to excess calories with serious comorbidity and body mass index (BMI) of 35.0 to 35.9 in adult (HCC) 11/27/19 Travel 11/20/19 11:16 AM EDT - 11/21/19 2:17 PM EDT Hospital Encounter [facility] [address] [place] [address] Ina Overton MD BPH with obstruction/lower urinary tract symptoms Discharge Disposition: Home or Self Care 11/20/19 Travel 11/20/19 2:15 PM EDT - 11/20/19 3:30 PM EDT Surgery [facility] [address] [place] [address] Ina Overton MD CYSTOSCOPY TRANSURETHRAL RESECTION PROSTATE - FULGURATION/EVACUATION OF CLOT 11/20/19 2:31 PM EDT Anesthesia Event [facility] [address] [place] [address] Luis A Rodney MD Collins, Angela, APRN 11/18/19 Travel 11/16/19 Travel 11/16/19 2:45 PM EDT - 11/16/19 11:59 PM EDT Hospital Encounter [facility] [address] [place], [place] [address] Covid19, [facility] Pre-op testing; Encounter for laboratory testing for COVID-19 virus Discharge Disposition: Home or Self Care 11/10/19 20 Refill [facility] 100 [facility] [place] [address] Vernon Salinas MD Medication Refill 11/10/19 Travel 11/06/19 Travel 11/06/19 9:45 AM EDT Office Visit [facility] [place] [address] [place] [address] Jeffy Fuentes MD Essential hypertension (Primary Dx); S/P CABG x 3; Ischemic heart disease; 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, unspecified vessel or lesion type 10/29/19 2:00 PM EDT Office Visit [facility] [address] [place] [address] Vernon Salinas MD Pre-op examination (Primary Dx); BPH with obstruction/lower urinary tract symptoms 10/29/19 Travel 10/28/[address] [address] Merle Mandujano MA Other 10/27/19 Travel 10/27/19 11:20 AM EDT Office Visit [place] [address] [address] Alva Zelaya, NAIN BPH with obstruction/lower urinary tract symptoms (Primary Dx); Incomplete bladder emptying; 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 dysfunction; Overactive bladder; Uncontrolled type 2 diabetes mellitus with hyperglycemia ([facility]) 10/17/19 Telephone [facility] [address] [place] [address] Omi Daly DO Medication Management 10/15/19 Telephone [facility] [address] [place] [address] Omi Daly DO Prior Authorization (cologuard ) 10/13/19 20 Refill [facility] 100 [facility] [place] [address] Omi Daly DO Medication Refill 10/13/19 Travel 10/13/19 7:30 AM EDT Office Visit [place] [address] [address] Agustin Graves MD Dyslipidemia associated with type 2 diabetes mellitus (HCC) (Primary Dx); Vitamin B12 deficiency 10/10/19 Telephone [facility] [address] [address] Agustin Graves MD Lab Orders 10/10/19 8:57 AM EDT - 10/10/19 11:59 PM EDT Hospital Encounter [facility] [address] [place] [address] Uncontrolled type 2 diabetes mellitus with hyperglycemia (HCC); Vitamin B12 deficiency; Vitamin D deficiency; Dyslipidemia associated with type 2 diabetes mellitus (HCC); Encounter for screening for malignant neoplasm of prostate ; Annual physical exam Discharge Disposition: Home or Self Care 10/10/19 Travel 10/06/19 Telephone [facility] [address] [address] Agustin Graves MD Labs Only 10/06/19 Refill [facility] [address] [place] [address] Omi Daly, Medication Refill 09/29/19 Travel 09/29/19 10:20 AM EDT Office Visit [facility] [address] [address] Alva Zelaya PA-C BPH with obstruction/lower urinary tract symptoms (Primary Dx); Incomplete bladder emptying; 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 dysfunction; Overactive bladder; History of UTI; Uncontrolled type 2 diabetes mellitus with hyperglycemia (HCC) 09/11/19 Abstract [facility] [address] [place] [address] Manda Pringle RN 09/10/19 Refill [facility] [address] [place] [address] Omi Daly, DO Medication Refill 09/09/19 Telephone [facility] [address] [facility] [place] [address] Omi Daly DO Medication Management (tamsulosin) 09/08/19 Orders Only [facility] [address] [facility] [address] [place] [address] Ina Overton MD BPH with obstruction/lower urinary tract symptoms 09/03/19 Travel 09/03/19 1:37 PM EDT - 09/03/19 11:59 PM EDT Hospital Encounter [facility] [address] [place] [address] Bilateral shoulder pain, unspecified chronicity Discharge Disposition: Home or Self Care 09/01/19 Travel 09/01/19 8:45 AM EDT Office Visit [facility] [address] [place] [address] Vernon Salinas MD Chronic pain of both shoulders (Primary Dx); Annual physical exam; Encounter for screening for malignant neoplasm of prostate 08/29/19 Travel 08/29/19 Telephone [facility] [address] [place] [address] Omi Daly DO Medication Management 08/25/19 Telephone [facility] [address] [facility] [address] [place] [address] Agustin Graves MD CGMS Interpretation (Shilpi Pro placement); Appointment Needed (MNT Appt ) 08/25/19 Travel 08/25/19 9:00 AM EDT Office Visit [facility] [address] [facility] [address] [place] [address] Laxmi Major LPN Dyslipidemia associated with type 2 diabetes mellitus (HCC) (Primary Dx) 08/22/19 Travel 08/22/19 Patient Outreach [facility] 100 [facility] [place] [address] Omi Daly DO Central Patient Navigator Outreach (AWV, colon, A1c) 08/15/19 20 Refill [facility] 100 [place] [address] Omi Daly, Medication Refill 08/14/19 20 Telephone [facility] 1500 [email or web address] [address] [place] [address] Agustin Graves MD CGMS Interpretation (Shilpi placement) 08/14/19 Travel 08/14/19 8:10 AM EDT Office Visit [facility] [address] [email or web address] [address] [address] Agustin Graves MD Dyslipidemia associated with type 2 diabetes mellitus (HCC) (Primary Dx); Vitamin B12 deficiency; Vitamin D deficiency 08/13/[address] [email or web address] [address] [address] Agustin Graves MD Other (Office Visit Reminder) 08/11/19 4:30 PM EDT - 08/11/19 11:59 PM EDT Hospital Encounter [facility] [address] [place] [address] Uncontrolled type 2 diabetes mellitus with hyperglycemia (HCC); Dyslipidemia associated with type 2 diabetes mellitus (HCC); Vitamin D deficiency; Vitamin B12 deficiency Discharge Disposition: Home or Self Care 08/11/19 Travel 08/01/19 20 Refill [facility] [address] [place] [address] Omi Daly, Medication Refill 07/31/19 20 Telephone [facility] 1500 [email or web address] [address] [place] [address] Agustin Graves MD Schedule Appointment 07/29/19 20 Refill [facility] [address] [place] [address] Vernon Salinas MD Medication Refill 07/27/19 20 Refill [facility] 100 [facility] [place] [address] Omi Daly, DO Medication Refill 07/18/19 20 Refill [facility] [address] [place] [address] Omi Daly, DO Medication Refill 07/17/19 20 Telephone [facility] [address] [address] Alva Zelaya PA-C Other 07/04/19 20 Refill [facility] 1500 [facility] [address] [place] [address] Agustin Graves MD Medication Refill 06/27/[address] [address] Alva Zelaya PA-C Other (trimix prescription) 06/27/19 20 Travel 06/27/19 20 9:00 AM EDT Office Visit [place] [address] [address] Alva Zelaya PA-C Other male erectile dysfunction (Primary Dx); BPH with obstruction/lower urinary tract symptoms; BXO (balanitis xerotica obliterans); Uncontrolled type 2 diabetes mellitus with hyperglycemia (HCC) 06/18/19 20 Refill [facility] [address] [place] [address] Omi Daly, DO Medication Refill 06/18/19 20 Refill [facility] [address] [place] [address] Omi Daly, DO Medication Refill 06/18/19 20 Travel 06/11/19 20 Refill [facility] [address] [place] [address] Omi Daly, DO Medication Refill 05/23/19 20 Travel 05/23/19 20 Telephone [facility] [address] [place] [address] Omi Daly DO Diarrhea 05/14/19 Travel 05/12/19 Refill [facility] [address] [facility] [facility] [address] [place] [address] Agustin Graves MD Medication Refill 05/09/19 9:45 AM EST Office Visit [facility] [address] [phone] Ina Overton MD BPH with obstruction/lower urinary tract symptoms (Primary Dx); Nocturia; BXO (balanitis xerotica obliterans); 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 dysfunction; Incomplete emptying of bladder; Recurrent UTI; Uncontrolled type 2 diabetes mellitus with hyperglycemia (HCC); Obstructive sleep apnea syndrome 05/06/19 Travel 04/30/19 Telephone [facility] [phone] Ina Overton MD Medication Management 04/23/19 Patient Outreach [facility] 100 [place] [address] Alondra Menchaca PharmD Medication Management (CMR) 04/22/19 Travel 04/22/19 1:15 PM EST Office Visit [facility] 100 [place] [address] Vernon Salinas MD Viral URI (Primary Dx); Essential hypertension; Gastroesophageal reflux disease without esophagitis 04/18/19 Orders Only [facility] [address] [place] [address] Omi Daly DO Screening for colon cancer; Screening for cancer of the rectum 04/16/19 10:05 AM EST - 04/16/19 11:59 PM EST Hospital Encounter [facility] [address] [place] [address] Dyslipidemia associated with type 2 diabetes mellitus (HCC); Vitamin D deficiency; Vitamin B12 deficiency Discharge Disposition: Home or Self Care 04/10/19 2:45 PM EST Office Visit [facility] [address] [place] [address] Jeffy Fuentes MD Ischemic heart disease (Primary Dx); S/P CABG x 3; Other specified hypotension 04/09/19 11:00 AM EST Office Visit [facility] 100 [facility] [place] [address] Vernon Salinas MD Dermatitis (Primary Dx) 04/08/19 20 Refill [facility] 100 [facility] [place] [address] Omi Daly, DO Medication Refill 04/07/19 2:15 PM EST Office Visit [facility] [address] [address] Alva Zelaya PA-C Overactive bladder (Primary Dx); Incomplete emptying of bladder; BPH with obstruction/lower urinary tract symptoms; Uncontrolled type 2 diabetes mellitus with hyperglycemia (HCC); Abnormality of penis 04/07/19 20 Refill [facility] 1500 [facility] [address] [place] [address] Agustin Graves MD Medication Refill 03/18/19 20 Refill [facility] 100 [facility] [place] [address] Omi Daly, DO Medication Refill 03/14/19 20 Refill [facility] 100 [facility] [place] [address] Omi Daly, DO Medication Refill 03/14/19 11:00 AM EST - 03/14/19 11:59 PM EST Hospital Encounter [facility] 7[address] [place] [address] Jeffy Fuentes MD Ischemic heart disease; 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, unspecified vessel or lesion type; S/P CABG x 3; Dizziness Discharge Disposition: Home or Self Care 03/11/20 19 Refill [facility] 100 [place] [address] Omi Daly, Medication Refill 02/21/20 10:45 AM EST Office Visit [facility] [address] [place] [address] Jeffy Fuentes MD 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, unspecified vessel or lesion type (Primary Dx); Ischemic heart disease; S/P CABG x 3; Dizziness; Lightheadedness; Other specified hypotension 02/14/20 8:30 AM EST Office Visit [address] [address] Vernon Salinas MD Essential hypertension (Primary Dx); Gastroesophageal reflux disease without esophagitis; Mixed hyperlipidemia 02/03/[address] [address] Omi Daly, Medication Refill 02/02/20 8:30 AM EST Office Visit [address] [address] Dejuan Rosario APRN Psoriasis of scalp (Primary Dx); Acute pain of left shoulder; Uncontrolled type 2 diabetes mellitus with hyperglycemia (HCC); Class 2 severe obesity due to excess calories with serious comorbidity and body mass index (BMI) of 35.0 to 35.9 in adult (HCC); Bradycardia; Flu-like symptoms 01/30/20 3:10 PM EST Office Visit [facility] Diabetes [address] [place] [address] Agustin Graves MD Dyslipidemia associated with type 2 diabetes mellitus (HCC) (Primary Dx); Vitamin B12 deficiency; Vitamin D deficiency 01/28/20 Telephone [facility] 100 [place] [address] Omi Daly, DO Orders 01/26/20 11:14 AM EST - 01/26/20 11:59 PM EST Hospital Encounter [facility] [address] [place] [address] Dyslipidemia associated with type 2 diabetes mellitus (HCC); Vitamin D deficiency; Vitamin B12 deficiency; Muscle pain Discharge Disposition: Home or Self Care 01/26/20 11:00 AM EST Ancillary Procedure [facility] [address] [place] [address] Chronic left shoulder pain 01/26/20 8:15 AM EST Office Visit [facility] 100 [facility] [place] [address] Vernon Salinas MD Flu vaccine need (Primary Dx); Chronic left shoulder pain; Muscle pain; Essential hypertension; Mixed hyperlipidemia 01/24/20 3:30 PM EST Office Visit [facility] [address] [place] [address] Delma Rothman, RD,LD,CDE Obesity, Class I, BMI 30-34.9 (Primary Dx) 01/21/20 19 Refill [facility] 100 [facility] [place] [address] Omi Daly, DO Medication Refill 01/17/20 19 Refill [facility] 100 [facility] [place] [address] Omi Daly, DO Medication Refill 01/10/20 5:00 PM EDT Office Visit [facility] [address] [place] [address] Obesity (BMI 30-39.9) (Primary Dx) 12/27/19 4:30 PM EDT Office Visit [facility] [address] [place] [address] Delma Rothman, RD,LD,CDE Obesity (BMI 30-39.9) (Primary Dx) 12/24/19 19 Telephone [facility] 100 [facility] [place] [address] Omi Daly, DO Medication Change 12/21/19 19 Refill [facility] 100 [facility] [place] [address] Omi Daly, Medication Refill 12/17/19 Refill [facility] 100 [place] [address] Omi Daly, Medication Refill 12/11/19 19 Refill [facility] 100 [facility] [place] [address] Vernon Salinas MD Medication Refill 12/10/19 19 Telephone [facility] 100 [facility] [place] [address] Omi Daly, Prior Authorization 12/10/19 4:15 PM EDT Office Visit [facility] [address] [place] [address] Corky Hagen MD Dyslipidemia associated with type 2 diabetes mellitus (HCC) (Primary Dx); Uncontrolled type 2 diabetes mellitus with hyperglycemia (HCC); Essential hypertension; Mixed hyperlipidemia; SOB (shortness of breath); Elevated lipoprotein(a); Vitamin B12 deficiency; Class 2 severe obesity due to excess calories with serious comorbidity and body mass index (BMI) of 35.0 to 35.9 in adult (HCC); Vitamin D deficiency 12/07/19 19 Telephone [facility] 100 [facility] [place] [address] Omi Daly, Other 12/04/19 5:00 PM EDT Office Visit [facility] [address] [place] [address] 2, Janeth Rn Obesity (BMI 30-39.9) (Primary Dx) 11/29/19 19 Refill [facility] 100 [facility] [place] [address] Vernon Salinas MD Medication Refill 11/29/19 19 Refill [facility] 100 [facility] [place] [address] Omi Daly, Medication Refill 11/28/19 [address] [place] [phone] Agustin Graves MD Medication Refill 11/27/19 4:56 PM EDT - 11/27/19 11:59 PM EDT Hospital Encounter [facility] [address] [place] [address] BPH with obstruction/lower urinary tract symptoms Discharge Disposition: Home or Self Care 11/27/19 1:00 PM EDT Office Visit [facility] 100 [place] [address] Vernon Salinas MD Annual physical exam (Primary Dx); Viral URI with cough; Essential hypertension; Mixed hyperlipidemia 11/27/19 6:00 PM EDT Office Visit [facility] [address] [place] [address],LD,CDE Obesity (BMI 30-39.9) (Primary Dx) 11/27/19 4:00 PM EDT Office Visit [facility] [place] [address] [place] [address] Alva Zelaya, NAIN Incomplete bladder emptying (Primary Dx); BPH with obstruction/lower urinary tract symptoms; Enlarged prostate 11/22/19 Refill [facility] [address] [place] [address] Omi Daly DO Medication Refill 11/22/19 5:30 PM EDT Office Visit [facility] [address] [place] [address] Obesity (BMI 30-39.9) (Primary Dx) 11/20/19 4:15 PM EDT Office Visit [facility] [address] [place] [address] Corky Hagen MD Dyslipidemia associated with type 2 diabetes mellitus (HCC) (Primary Dx); Gastroesophageal reflux disease without esophagitis; Essential hypertension; Mixed hyperlipidemia; Vitamin B12 deficiency; Vitamin D deficiency; Class 2 severe obesity due to excess calories with serious comorbidity and body mass index (BMI) of 35.0 to 35.9 in adult (HCC) 11/16/19 7:00 PM EDT - 11/16/19 11:59 PM EDT Hospital Encounter [facility] [place] [address] [facility] [address] [place] [address] Obstructive sleep apnea (Primary Dx) Discharge Disposition: Home or Self Care 11/06/19 5:30 PM EDT Office Visit [facility] [address] [place] [address] Obesity (BMI 30-39.9) (Primary Dx); Dietary counseling and surveillance 11/01/19 Refill [facility] 100 [place] [address] Omi Daly DO Medication Refill 10/30/19 9:50 AM EDT Office Visit [address] [place] [address] Agustin Graves MD Dyslipidemia associated with type 2 diabetes mellitus (HCC) (Primary Dx); Vitamin B12 deficiency; Elevated lipoprotein(a); Vitamin D deficiency 10/29/19 6:00 PM EDT Office Visit [facility] [address] [place] [address] Obesity (BMI 30-39.9) (Primary Dx) 10/26/19 3:45 PM EDT Office Visit [facility] 100 [place] [address] Dejuan Rosario APRN UTI (urinary tract infection), uncomplicated (Primary Dx); Dysuria 10/26/19 Telephone [facility] 100 [facility] [place] [address] Omi Daly DO Other 10/23/19 2:30 PM EDT - 10/23/19 11:59 PM EDT Hospital Encounter [facility] [address] [place], [place] [id number] Obstructive sleep apnea (Primary Dx) Discharge Disposition: Home or Self Care 10/23/19 2:15 PM EDT Office Visit [facility] [address] [facility] 19 [place] [address] Ruben Kelly MD Excessive sleepiness; Primary snoring; Obstructive sleep apnea; Obesity due to excess calories without serious comorbidity, unspecified classification 10/22/19 3:48 PM EDT - 10/22/19 11:59 PM EDT Hospital Encounter [facility] [address] [place] [address] Dyslipidemia associated with type 2 diabetes mellitus (HCC); Elevated lipoprotein(a); Vitamin D deficiency Discharge Disposition: Home or Self Care 10/22/19 Telephone [facility] [address] [place] [address] Omi Daly DO Dizziness 10/22/19 Telephone [facility] [address] [phone] Agustin Graves MD Labs Only 10/22/19 6:30 PM EDT Office Visit [facility] [address] [place] [address] Delma Rothman, RD,LD,CDE Obesity (BMI 30-39.9) (Primary Dx) 10/20/19 19 Refill [facility] [address] [place] [address] Omi Daly DO Medication Refill 10/18/19 19 Refill [facility] [address] [facility] 19 [place] [address] Stevie Acosta MD Medication Refill 10/17/19 19 Telephone [facility] [address] [place] [address] Omi Daly DO Other 10/15/19 4:00 PM EDT Office Visit [facility] [address] [place] [address] Omi Daly, Dyslipidemia associated with type 2 diabetes mellitus (HCC) (Primary Dx); Uncontrolled type 2 diabetes mellitus with hyperglycemia (HCC); Type 2 diabetes mellitus without complication, unspecified 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 insulin use (HCC); Essential hypertension 10/15/19 11:15 AM EDT Office Visit [facility] [address] [place] [address] Corky Hagen MD 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, unspecified vessel or lesion type (Primary Dx); Elevated lipoprotein(a); Gastroesophageal reflux disease without esophagitis; Essential hypertension; Mixed hyperlipidemia; S/P CABG x 3; Uncontrolled type 2 diabetes mellitus with hyperglycemia (HCC); Vitamin D deficiency 10/12/19 11:15 AM EDT Office Visit [address] [address] Drea Acuna APRN Degenerative disc disease, lumbar (Primary Dx); Chronic pain syndrome; Sacroiliitis; Spondylosis of lumbar region without myelopathy or radiculopathy 10/08/19 5:30 PM EDT Office Visit [facility] [address] [place] [address] 2, Janeth Rn Obesity (BMI 30-39.9) (Primary Dx) 10/04/19 19 6:00 PM EDT - 10/04/19 11:59 PM EDT Hospital Encounter [facility] Physical Therapy [address] [place] [address] Rafia Thomas, PT Discharge Disposition: Home or Self Care 10/02/19 19 Refill [facility] [address] [place] [address] Omi Daly DO Medication Refill 09/21/19 8:15 AM EDT - 09/21/19 8:45 AM EDT Surgery [facility] [place] [address] Stevie Acosta MD ESOPHAGOGASTRODUODENOSCOPY (ANESTHESIA) 09/21/19 8:25 AM EDT Anesthesia Event [facility] [place] [address] Mary Luna MD Merkle Serey, Jennifer L, NP 09/21/19 7:14 AM EDT - 09/21/19 9:51 AM EDT Hospital Encounter [facility] [place] [address] Stevie Acosta MD Eosinophilic esophagitis Discharge Disposition: Home or Self Care 09/17/19 19 Refill [facility] [address] [place] [address] Vernon Salinas MD Medication Refill 09/11/19 19 7:00 PM EDT - 09/11/19 11:59 PM EDT Hospital Encounter [facility] Sleep Disorder Center [address] [place] [address] Obstructive sleep apnea (Primary Dx) Discharge Disposition: Home or Self Care 09/04/19 19 5:00 PM EDT - 09/04/19 19 11:59 PM EDT Hospital Encounter [address] [place] [address] Rafia Thomas, PT Discharge Disposition: Home or Self Care 09/03/19 19 11:00 AM EDT Office Visit [facility] [address] [place] [address] Ruben Kelly MD Primary snoring; Obstructive sleep apnea 09/02/19 19 Refill [facility] [address] [place] [address] Omi Daly, Medication Refill 08/30/19 19 Refill [facility] [address] [place] [address] Vernon Salinas MD Medication Refill 08/30/19 19 5:30 PM EDT - 08/30/19 19 11:59 PM EDT Hospital Encounter [address] [place] [address] Rafia Thomas, PT Discharge Disposition: Home or Self Care 08/28/19 19 11:30 AM EDT Office Visit [facility] [address] [place] [phone] Urvashi Cowart, DOMONIQUE Obesity (BMI 30-39.9) (Primary Dx) 08/27/19 19 Refill [facility] 100 [facility] [place] [address] Malika, Omi, DO Medication Refill 08/21/19 Refill [facility] 100 [facility] [place] [address] Malika, Omi, DO Medication Refill 08/16/19 19 Telephone [facility] 100 [facility] [place] [address] Malika, Omi, DO Note 08/14/19 2:00 PM EDT Office Visit [facility] [address] [place] [address] Obesity, Class II, BMI 35-39.9 (Primary Dx) 08/14/19 19 4:42 PM EDT - 08/14/19 11:59 PM EDT Hospital Encounter [facility] Physical [address] [place] [address] Rafia Thomas, PT Discharge Disposition: Home or Self Care 08/13/19 19 Orders Only [facility] Diabetes [facility] [address] [facility] [address] [place] [address] Agustin Graves MD Uncontrolled type 2 diabetes mellitus with hyperglycemia (HCC) (Primary Dx) 08/13/19 19 Telephone [facility] 100 [facility] [place] [address] Malika, Omi, DO Prior Authorization 08/10/19 19 Telephone [facility] [address] [facility] [place] [address] mOi Daly DO Prior Authorization 08/09/19 19 Telephone [facility] [address] [place] [address] Omi Daly DO Prior Authorization 08/09/19 4:59 PM EDT - 08/09/19 11:59 PM EDT Hospital Encounter [facility] Physical [address] [place] [address] Rafia Thomas, PT Discharge Disposition: Home or Self Care 08/07/19 5:20 PM EDT - 08/07/19 11:59 PM EDT Hospital Encounter [facility] Physical [address] [place] [address] Rafia Thomas, PT Discharge Disposition: Home or Self Care 08/07/19 8:15 AM EDT Office Visit [facility] MED [facility] [place] [address] Barbara Cole APRN Vitamin D deficiency (Primary Dx); SOB (shortness of breath); DDD (degenerative disc disease), lumbar; Elevated lipoprotein(a); Esophageal dysphagia; Dyslipidemia associated with type 2 diabetes mellitus (HCC); Uncontrolled type 2 diabetes mellitus with hyperglycemia (HCC); Essential hypertension; Mixed hyperlipidemia; S/P CABG x 3 08/03/19 19 Telephone [facility] 1500 [employer] [facility] [address] [place] [address] Agustin Graves MD Results 08/02/19 19 Orders Only [facility] [address] [facility] [facility] [address] [place] [address] Agustin Graves MD Dyslipidemia associated with type 2 diabetes mellitus (HCC) (Primary Dx); Elevated lipoprotein(a); Vitamin D deficiency 08/02/19 19 Refill [facility] [address] [facility] [place] [address] Omi Daly DO Medication Refill 07/31/19 19 5:14 PM EDT - 07/31/19 11:59 PM EDT Hospital Encounter [facility] Physical [address] [place] [address] Rafia Thomas, PT Discharge Disposition: Home or Self Care 07/30/19 12:25 PM EDT - 07/30/19 11:59 PM EDT Hospital Encounter [place] [address] [place] [address] Dyslipidemia associated with type 2 diabetes mellitus (HCC); Vitamin D deficiency Discharge Disposition: Home or Self Care 07/30/[address] [address] Agustin Graves MD CGMS Interpretation (Shilpi Pro Due) 07/30/19 5:00 PM EDT Office Visit [facility] [address] [place] [address],LD,CDE Obesity (BMI 30-39.9) (Primary Dx) 07/30/19 11:20 AM EDT Office Visit [address] [address] Agustin Graves MD Dyslipidemia associated with type 2 diabetes mellitus (HCC) (Primary Dx); Vitamin D deficiency; 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 [address] Rafia Thomas, PT Discharge Disposition: Home or Self Care 07/23/19 1:30 PM EDT Office Visit [facility] [address] [place] [address] Delma Rothman, RD,LD,CDE Uncontrolled type 2 diabetes mellitus with hyperglycemia (HCC) (Primary Dx) 07/20/19 19 Telephone [facility] [address] [facility] [address] [place] [address] Stevie Acosta MD Results; Orders 07/18/19 9:45 AM EDT - 07/18/19 10:00 AM EDT Surgery [facility] [address] [place] [address] Stevie Acosta MD ESOPHAGOGASTRODUODENOSCOPY (ANESTHESIA) 07/18/19 10:01 AM EDT Anesthesia Event [facility] [address] [place] [address] Barber Lindsey MD [place], Angela, BRIELLE 07/18/19 8:00 AM EDT - 07/18/19 11:13 AM EDT Hospital Encounter [facility] [address] [place] [address] Stevie Acosta MD Pharyngoesophageal dysphagia Discharge Disposition: Home or Self Care 07/16/19 1:30 PM EDT Office Visit [facility] [address] [place] [address] Delma Rothman, RD,LD,CDE Uncontrolled type 2 diabetes mellitus with hyperglycemia (HCC) (Primary Dx) 07/13/19 19 Refill [facility] [address] [place] [address] Omi Daly DO Medication Refill 07/12/19 19 8:45 AM EDT Office Visit [facility] [place] [address] [facility] [address] [place] [address] Carlos Langston MD Spondylosis of lumbar region without myelopathy or radiculopathy (Primary Dx); Chronic pain syndrome; Sacroiliitis 07/09/19 19 Telephone [facility] [address] [place] [address] Analy Stafford MA Results 07/09/19 1:30 PM EDT Office Visit [facility] [address] [place] [address] Urvashi [address] Obesity, Class III, BMI 40-49.9 (morbid obesity) (HCC) (Primary Dx) 07/05/19 Telephone [facility] [address] [facility] Building [address] [place] [address] Lyle Rangel MD PHD Other 07/05/19 1:30 PM EDT - 07/05/19 11:59 PM EDT Hospital Encounter [facility] [address] [place] [address] Snoring; DDD (degenerative disc disease), lumbar; Gastroesophageal reflux disease without esophagitis; Essential hypertension; Other hyperlipidemia; S/P CABG x 3; Uncontrolled type 2 diabetes mellitus with hyperglycemia (HCC); Vitamin B12 deficiency; Vitamin D deficiency; Ischemic heart disease Discharge Disposition: Home or Self Care 07/03/19 19 Refill [facility] [place] [address] Omi Daly DO Medication Refill 06/28/19 9:30 AM EDT Office Visit [facility] [address] [place] [address] Barbara Cole APRN Snoring (Primary Dx); DDD (degenerative disc disease), lumbar; Gastroesophageal reflux disease without esophagitis; Essential hypertension; Other hyperlipidemia; S/P CABG x 3; Uncontrolled type 2 diabetes mellitus with hyperglycemia (HCC); Vitamin B12 deficiency; Vitamin D deficiency; Ischemic heart disease 06/19/19 19 Refill [facility] 100 [facility] [place] [address] Vernon Salinas MD Medication Refill 06/08/19 19 [facility]ill [facility] 100 [place] [address] Patsy Padron MD Medication Refill 05/30/19 19 Refill [facility] 100 [facility] [place] [address] Omi Daly DO Medication Refill 05/29/19 1:45 PM EDT Office Visit [facility] Cristy Walker [address] [place] [address] Vernon Salinas MD Obesity, Class II, BMI 35-39.9 (Primary Dx); Type 2 diabetes mellitus without complication, unspecified whether fdc insulin use (HCC); Essential hypertension 05/28/19 2:40 PM EDT - 05/28/19 11:59 PM EDT Hospital Encounter [facility] [address] [place] [address] Type 2 diabetes mellitus without complication, without long-term current use of insulin (HCC) Discharge Disposition: Home or Self Care 05/28/19 10:45 AM EDT Office Visit [facility] Urology [address] [address] Ina Overton MD Benign non-nodular prostatic hyperplasia with lower urinary tract symptoms (Primary Dx); Incomplete bladder emptying; Overactive bladder; Uncontrolled type 2 diabetes mellitus with hyperglycemia (HCC); Yeast dermatitis of penis; Phimosis; Frequency of micturition; Glucosuria; Enlarged prostate 05/21/19 Orders Only [facility] [address] [place] [address] Vernon Salinas MD Type 2 diabetes mellitus without complication, without long-term current use of insulin (HCC) (Primary Dx) 05/21/19 Telephone [facility] [address] [place] [address] Omi Daly DO Orders 05/21/19 11:35 AM EDT Hospital Encounter [facility] [address] [place] [address] Left without seen 05/16/19 3:45 PM EST Office Visit [facility] [address] [place] [address] Vernon Salinas MD Acute bacterial sinusitis (Primary Dx); Cellulitis of leg, left 05/16/19 Telephone [facility] [address] [place] [address] Omi Daly DO Medication Management 05/16/19 Refill [facility] [address] [place] [address] Omi Daly DO Medication Refill 05/11/19 7:41 AM EST - 05/11/19 11:59 PM EST Hospital Encounter [facility] [address] [place] [address] Building 1 D 4th Floor [address] [place] [address] Chelita Reynoso APRN Spondylosis of lumbar region without myelopathy or radiculopathy Discharge Disposition: Home or Self Care 04/29/19 3:00 PM EST Office Visit [facility] 100 [place] [address] Vernon Salinas MD Type 2 diabetes mellitus without complication, without long-term current use of insulin (HCC) (Primary Dx); Obesity, Class II, BMI 35-39.9; DDD (degenerative disc disease), lumbar 04/25/19 Telephone [facility] [address] [place] [address] Chelita Reynoso APRN Other (RFA Denial) 04/23/19 Telephone [facility] 100 [facility] [place] [address] Omi Daly DO Referral 04/23/19 8:30 AM EST Procedure visit [facility] Urology [address] [place] [address] Ina Overton MD Benign non-nodular prostatic hyperplasia with lower urinary tract symptoms (Primary Dx); Frequency of micturition; Incomplete bladder emptying; History of UTI; 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 dysfunction; Glucosuria; Uncontrolled type 2 diabetes mellitus with hyperglycemia (HCC); Candidal balanitis 04/10/19 10:30 AM EST Office Visit [facility] Urology [address] [place] [address] Ina Overton MD Benign non-nodular prostatic hyperplasia with lower urinary tract symptoms (Primary Dx); Weak urinary stream; History of UTI; Overactive bladder; Urge incontinence; Yeast dermatitis of penis; Uncontrolled type 2 diabetes mellitus with hyperglycemia (HCC); Candidal balanitis; Glucosuria; Prostate cancer screening 04/04/19 19 Refill [facility] 100 [facility] [place] [address] Starla Nice MA Medication Refill 03/27/19 19 Refill [facility] 100 [facility] [place] [address] Omi Daly, Medication Refill 03/25/19 19 Refill [facility] 100 [facility] [place] [address] Omi Daly, DO Medication Refill 03/21/19 19 2:00 PM EST Office Visit [facility] 100 [facility] [place] [address] Vernon Salinas MD Screening for colon cancer (Primary Dx); Controlled type 2 diabetes mellitus without complication, without long-term current use of insulin (HCC); Acute bacterial sinusitis; Esophageal stricture 03/18/19 19 Refill [facility] 100 [facility] [place] [address] Vernon Salinas MD Medication Refill 03/13/19 19 10:00 AM EST Office Visit [facility] [address] [place] [address] Chelita Reynoso APRN Spondylosis of lumbar region without myelopathy or radiculopathy (Primary Dx); Chronic pain syndrome; Sacroiliitis 03/07/20 18 8:45 AM EST - 03/07/20 18 11:59 PM EST Hospital Encounter [facility] [address] [place] [address] Building 1 [address] 4th Floor - [address] [place] [address] Chelita Reynoso APRN Spondylosis of lumbar region without myelopathy or radiculopathy Discharge Disposition: Home or Self Care 03/02/20 18 Refill [facility] [address] Vernon Salinas MD Medication Refill 02/23/20 18 Refill [facility] 100 [facility] [place] [address] Omi Daly, DO Medication Refill 02/21/20 18 Refill [facility] 100 [facility] [place] [address] Omi Daly, DO Medication Refill 02/15/20 18 Refill [facility] 100 [facility] [place] [address] Omi Daly, DO Medication Refill 02/12/20 18 Refill [facility] 100 [facility] [place] [address] Vernon Salinas MD Medication Refill 02/05/20 18 Refill [facility] 100 [facility] [place] [address] Omi Daly, DO Medication Refill 01/31/20 18 Refill [facility] 100 [facility] [place] [address] Omi Daly, DO Medication Refill 01/29/20 18 Telephone [facility] 100 [facility] [place] [address] Omi Daly, DO Medication Management 01/26/20 18 Refill [facility] 100 [place] [address] Omi Daly, Medication Refill 01/22/20 18 Refill [facility] 100 [place] [address] Starla Nice MA Medication Refill 01/18/20 18 Refill [facility] [address] [address] Angelina Zaldivar MD Medication Refill 01/11/20 18 11:00 AM EDT Office Visit [place] [address] [address] [place] [address] Chelita Reynoso APRN Spondylosis of lumbar region without myelopathy or radiculopathy (Primary Dx); Chronic pain syndrome; Sacroiliitis 12/21/19 18 Refill [facility] [address] [place] [address] Vernon Salinas MD Medication Refill 12/13/19 [address] [place] [address] Carlos Langston MD Medication Refill (Flexeril) 12/11/19 18 Refill [facility] [address] [address] Jeffy Fuentes MD Medication Refill (Isosorb [place]) 12/11/19 [address] [place] [address] Carlos Langston MD Medication Refill (Flexeril) 12/07/19 18 7:33 AM EDT - 12/07/19 18 11:59 PM EDT Hospital Encounter [facility] [address] [place] [address] 1 D 4th Floor [address] [place] [address] Carlos Langston MD Grainger, Jonathan Kern, MD Chronic pain syndrome; Spondylosis of lumbar region without myelopathy or radiculopathy; Sacroiliitis Discharge Disposition: Home or Self Care 12/06/19 [address] [place] [address] Carlos Langston MD Other (procedure) 12/02/19 18 9:03 AM EDT - 12/02/19 18 11:59 PM EDT Hospital Encounter [facility] [address] [place] [address] Hepatitis C antibody positiv e in blood; Dysuria Discharge Disposition: Home or Self Care 12/02/19 18 Refill [facility] [address] [place] [address] Omi Daly, Medication Refill 12/02/19 18 9:30 AM EDT Office Visit [facility] [address] [place] [address] Vernon Salinas MD Dysuria (Primary Dx); Essential hypertension; Controlled type 2 diabetes mellitus without complication, without long-term current use of insulin (HCC); Hepatitis C antibody positive in blood 11/28/19 18 [facility] [address] [place] [address] Vernon Salinas MD Hepatitis C antibody positive in blood (Primary Dx) 11/27/19 18 Orders [facility] [address] [place] [address] Vernon Salinas MD Type 2 diabetes mellitus without complication, unspecified 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 insulin use (HCC) (Primary Dx) 11/26/19 18 9:17 AM EDT - 11/26/19 18 11:59 PM EDT Hospital Encounter [facility] [address] [place] [address] Dysuria; Annual physical exam; Enlarged prostate; Type 2 diabetes mellitus without complication, unspecified whether fdc insulin use (HCC) Discharge Disposition: Home or Self Care 11/23/19 18 Refill [facility] [address] [place] [address] Omi Daly DO Medication Refill (Metoprolol) 11/16/19 18 Refill [facility] [address] [place] [address] Starla Nice MA Medication Refill 11/16/19 18 Refill [facility] [address] [facility] [address] Omi Daly DO Medication Refill 11/14/19 8:00 AM EDT Office Visit [facility] [address] [facility] [address] Vernon Salinas MD Enlarged prostate (Primary Dx); Chronic fatigue 11/09/19 Telephone [place] [address] [address] [place] [address] Carlos Langston MD Results (x ray) 11/07/19 4:12 PM EDT - 11/07/19 11:59 PM EDT Hospital Encounter [address] [address] Carlos Langston MD Chronic pain syndrome; Spondylosis of lumbar region without myelopathy or radiculopathy; Sacroiliitis Discharge Disposition: Home or Self Care 11/07/19 3:00 PM EDT Office Visit [place] [address] [address] [place] [address] Carlos Langston MD Spondylosis of lumbar region without myelopathy or radiculopathy (Primary Dx); Chronic pain syndrome; Sacroiliitis 11/03/19 Telephone [facility] [address] [facility] [address] Omi Daly, Medication Refill 10/29/19 5:30 PM EDT Office Visit [facility] Urgent Care [address] [address] Serg Mcgill DO Puncture wound of right foot, initial encounter (Primary Dx) 10/27/19 4:00 PM EDT Clinical Support [place] [address] [place] [address] Michelle Baig RMA Immunization due (Primary Dx) 10/16/19 3:30 PM EDT Office Visit [facility] [address] [place] [address] Vernon Salinas MD Annual physical exam (Primary Dx); DDD (degenerative disc disease), lumbar; Chronic right-sided low back pain with right-sided sciatica 10/12/19 18 5:12 PM EDT - 10/12/19 18 11:59 PM EDT Hospital Encounter [facility] [address] [place] [address] Dysuria; Controlled type 2 diabetes mellitus without complication, without long-term current use of insulin (HCC) Discharge Disposition: Home or Self Care 10/11/19 18 Telephone [facility] [address] [place] [address] Omi Daly DO Prior Authorization 10/11/19 18 8:00 AM EDT Office Visit [facility] [address] [place] [address] Vernon Salinas MD Controlled type 2 diabetes mellitus without complication, without long-term current use of insulin (HCC) (Primary Dx); Dysuria; Anhidrosis 10/10/19 18 Telephone [facility] [address] [place] [address] Elba Tapia RN Other 10/09/19 18 Telephone [facility] [address] [place] [address] Omi Daly DO Prior Authorization 10/09/19 18 Telephone [facility] [address] [place] [address] Omi Daly DO Prior Authorization 10/07/19 18 Orders Only [facility] [address] [place] [address] Vernon Salinas MD Type 2 diabetes mellitus without complication, unspecified whether fdc insulin use (HCC) (Primary Dx) 10/07/19 18 Telephone [facility] [address] [place] [address] Omi Daly DO Prior Authorization 10/06/19 18 Telephone [facility] 100 [place] [address] Omi Daly DO Prior Authorization 10/05/19 18 Telephone [facility] 100 [place] [address] Omi Daly, Prior Authorization 10/05/19 18 Telephone [facility] [address] [place] [address] Omi Daly, DO Medication Change 10/05/19 18 10:20 AM EDT - 10/05/19 18 11:59 PM EDT Hospital Encounter [facility] [address] [place] [address] Type 2 diabetes mellitus without complication, without long-term current use of insulin (HCC) Discharge Disposition: Home or Self Care 10/04/19 18 1:00 PM EDT Office Visit [facility] 100 [place] [address] Vernon Salinas MD Screening for colon cancer (Primary Dx); Type 2 diabetes mellitus without complication, without long-term current use of insulin (HCC) 10/04/19 18 9:53 AM EDT - 10/04/19 18 11:59 PM EDT Hospital Encounter [address] [address] Acute pyelonephritis Discharge Disposition: Home or Self Care 10/03/19 18 9:59 AM EDT - 10/03/19 18 11:59 PM EDT Hospital Encounter [address] [address] Acute pyelonephritis Discharge Disposition: Home or Self Care 10/02/19 18 9:54 AM EDT - 10/02/19 18 11:59 PM EDT Hospital Encounter [facility] [address] [place] [address] Acute pyelonephritis Discharge Disposition: Home or Self Care 10/01/19 18 9:45 AM EDT - 10/01/19 18 11:59 PM EDT Hospital Encounter [facility] [address] [place] [address] Acute pyelonephritis Discharge Disposition: Home or Self Care 09/30/19 18 9:46 AM EDT - 09/30/19 18 11:59 PM EDT Hospital Encounter [facility] [address] [place] [address] Acute pyelonephritis Discharge Disposition: Home or Self Care 09/29/19 18 10:54 AM EDT - 09/29/19 18 11:59 PM EDT Hospital Encounter [address] [address] Acute pyelonephritis Discharge Disposition: Home or Self Care 09/28/19 18 9:49 AM EDT - 09/28/19 18 11:59 PM EDT Hospital Encounter [address] [address] Acute pyelonephritis Discharge Disposition: Home or Self Care 09/27/19 18 10:40 AM EDT - 09/27/19 18 11:59 PM EDT Hospital Encounter [address] [address] Acute pyelonephritis Discharge Disposition: Home or Self Care 09/26/19 Patient Outreach [facility] [address] [place] [address] Elba Tapia, [facility] Follow Up 09/26/19 Patient Outreach [facility] [employer] [address] [place] [address] Laurel Hodgson RN Care Management - Chart Review (hospital discharge reviewed) 09/26/19 18 9:59 AM EDT - 09/26/19 18 11:59 PM EDT Hospital Encounter [address] [address] Acute pyelonephritis Discharge Disposition: Home or Self Care 09/21/19 18 7:56 AM EDT - 09/25/19 18 6:15 PM EDT Hospital Encounter [facility] [address] [place] [address] Marlon Yarbrough MD Discharge Disposition: Home or Self Care 09/21/19 18 3:55 AM EDT - 09/21/19 18 7:24 AM EDT Emergency [facility] [address] [facility] [place] [address] Jasper Dixon MD Krusling, Edward J, MD Pyelonephritis (Primary Dx) Discharge Disposition: Short Term Hospital 09/06/19 18 Refill [facility] [address] [place] [address] Omi Daly, Medication Refill 08/04/19 18 Telephone [facility] Omi Daly, Abscess 07/25/19 18 Telephone [facility] 100 [facility], [facility] Omi Daly, DO Medication Refill 07/24/19 18 Refill [facility] [address] [facility] [place] [address] Omi Daly, Medication Refill 07/21/19 18 9:15 AM EDT Office Visit [facility] [address] [facility] Omi Daly, BPH with urinary obstruction (Primary Dx) 07/12/19 18 Telephone [facility] [address] [facility], [facility] Omi Daly, DO Medication Management 07/11/19 18 Refill [facility] [address] [facility] [place] [address] Omi Daly, Medication Refill 07/09/19 18 Refill [facility] [address] [place] [address] Omi Daly, DO Medication Refill 06/12/19 18 Telephone [facility] [address] [facility] [place] [address] Omi Daly, Urinary Tract Infection 06/07/19 18 Refill [facility] [address] [place] [address] Omi Daly, Medication Refill 05/22/19 18 Refill [facility] 100 [place] [address] Omi Daly, Medication Refill 05/01/19 18 Telephone [facility] 1500 [facility] [address] [place] [address] Angelina Zaldivar MD Samples (Bydureon) 04/22/19 18 Refill [facility] [address] [facility] [place] [address] Omi Daly DO Medication Refill 04/19/19 18 Refill [facility] [address] [place] [address] Omi Daly, Medication Refill 04/03/19 18 Telephone [facility] [address] [facility] [place] [address] Omi Daly DO Vaginitis 03/26/19 18 Telephone [facility] [address] [address] Jeffy Fuentes MD Visit Follow Up 03/23/19 18 Refill [facility] [address] [place] [address] Omi Daly, Medication Refill 03/07/20 17 Refill [facility] [address] [facility] [place] [address] Patsy Padron MD Medication Refill 02/08/20 17 Refill [facility] [address] [facility] [place] [address] Omi Daly, Medication Refill 01/17/20 17 Refill [facility] [address] [facility] [place] [address] Omi Daly, DO Medication Refill 01/04/20 17 Refill [facility] [address] [place] [address] Patsy Padron MD Medication Refill 01/04/20 17 Refill [facility] 100 [place] [address] Omi Daly, DO Medication Refill 12/26/19 17 Telephone [facility] [address] [employer] [address] [address] Angelina Zaldivar MD Samples (Bydureon) 12/21/19 17 Refill [facility] [employer] [address] [place] [address] Jeffy Fuentes MD Medication Refill (Isosorbide refill / [facility]) 12/21/19 17 Refill [facility] 100 [place] [address] Omi Daly, DO Medication Refill 12/21/19 17 Telephone [place] [address] [address] [address] [address] Angelina Zaldivar MD Medication Management 12/03/19 17 8:45 AM EDT Office Visit [address] [address] Vernon Salinas MD Abscess (Primary Dx) 11/27/19 17 Refill [facility] [address] [place] [address] Omi Daly, DO Medication Refill 11/08/19 17 9:30 AM EDT Office Visit [facility] [address] [employer] [address] [address] Angelina Zaldivar MD Type 2 diabetes mellitus without complication, without long-term current use of insulin (HCC) (Primary Dx); Hyperlipidemia associated with type 2 diabetes mellitus (HCC); Hypertension associated with diabetes (HCC); Vitamin D deficiency; Vitamin B12 deficiency; Candidiasis 11/03/19 17 9:15 AM EDT - 11/03/19 17 11:59 PM EDT Hospital Encounter [facility] [address] [place] [address] Type 2 diabetes mellitus wit h complication, without long-term current use of insulin (HCC) Discharge Disposition: Home or Self Care 11/02/19 17 Telephone [facility] [address] [email or web address] [address] [place] [address] Angelina Zaldivar MD Labs Only 10/31/19 17 Telephone [facility] [address] [email or web address] [address] [place] [address] Angelina Zaldivar MD Referral ([facility]) 10/31/19 17 Refill [facility] [address] [facility] [place] [address] Omi Daly, DO Medication Refill 10/28/19 17 Telephone [facility] [address] [email or web address] [address] [place] [address] Angelina Zaldivar MD Samples 10/25/19 17 Refill [facility] [address] [facility] [place] [address] Omi Daly, DO Medication Refill 10/11/19 17 Refill [facility] [address] [facility] [place] [address] Omi Daly, DO Medication Refill 10/10/19 17 Telephone [facility] [address] [email or web address] [address] [place] [address] Angelina Zaldivar MD Samples 09/28/19 17 Refill [facility] 100 [facility] [place] [address] Omi Daly, DO Medication Refill 09/26/19 17 Refill [facility] [address] [place] [address] Patsy Padron MD Medication Refill 09/22/19 17 Refill [facility] 100 [place] [address] Omi Daly, DO Medication Refill 09/22/19 17 9:15 AM EDT Office Visit [facility] [address] [address] Jeffy Fuentes MD Essential hypertension (Primary Dx); Ischemic heart disease; S/P CABG x 3; Hyperlipidemia, unspecified hyperlipidemia type 09/20/19 17 11:45 AM EDT Clinical Support [facility] [address] [place] [phone] Michelle Baig RMA Screening for colon cancer (Primary Dx) 09/08/19 17 Telephone [facility] [address] [employer] [address] [place] [address] Angelina Zaldivar MD Paperwork/forms (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) 08/25/19 17 Refill [facility] 100 [place] [address] Omi Daly, DO Medication Refill 08/10/19 17 Telephone [facility] [address] [employer] [address] [place] [address] Jeffy Fuentes MD Visit Follow Up 08/10/19 17 Refill [facility] [address] [place] [address] Angelina Zaldivar MD Medication Refill 08/04/19 17 10:15 AM EDT Office Visit [facility] [address] [address] Jeffy Fuentes MD Essential hypertension (Primary Dx); Ischemic heart disease; Chest pain, unspecified type 08/03/19 17 Refill [facility] [address] [place] [address] Angelina Zaldivar MD Medication Refill 08/03/19 17 3:00 PM EDT Office Visit [facility] [address] [facility] [address] [place] [address] Angelina Zaldivar MD Vitamin D deficiency (Primary Dx); Vitamin B12 deficiency; Hyperlipidemia associated with type 2 diabetes mellitus (HCC); Hypertension associated with diabetes (HCC); Type 2 diabetes mellitus with complication, without long-term current use of insulin (HCC) 08/02/19 17 2:38 PM EDT - 08/02/19 17 11:59 PM EDT Hospital Encounter [facility] TEST [address] [place] [address] Jeffy Fuentes MD Chest discomfort; Essential hypertension; Ischemic heart disease; S/P CABG x 3 Discharge Disposition: Home or Self Care 08/02/19 17 2:00 PM EDT - 08/02/19 17 2:37 PM EDT Hospital Encounter [facility] [address] [place] [address] Jeffy Fuentes MD Chest discomfort; Essential hypertension; Ischemic heart disease; S/P CABG x 3 Discharge Disposition: Home or Self Care 07/28/19 17 3:30 PM EDT - 07/28/19 17 11:59 PM EDT Hospital Encounter [facility] [address] [place] [address] Jeffy Fuentes MD Type 2 diabetes mellitus without complication, without long-term current use of insulin (HCC); Hyperlipidemia associated with type 2 diabetes mellitus (HCC) Discharge Disposition: Home or Self Care 07/28/19 17 2:25 PM EDT - 07/28/19 17 3:29 PM EDT Hospital Encounter [facility] [address] [place] [address] Jeffy Fuentes MD Chest discomfort; Essential hypertension; Ischemic heart disease; S/P CABG x 3 Discharge Disposition: Home or Self Care 07/23/19 17 Refill [facility] [address] [place] [address] Omi Daly, DO Medication Refill 07/21/19 17 2:00 PM EDT Office Visit [facility] [address] [address] Jeffy Fuentes MD Encounter to establish care with new doctor (Primary Dx); Chest discomfort; Essential hypertension; Ischemic heart disease; S/P CABG x 3 07/08/19 17 Telephone [facility] [address] [facility] [address] [place] [address] Angelina Zaldivar MD Samples (Bydureon) 07/07/19 17 Refill [facility] 100 [facility] [place] [address] Omi Daly, DO Medication Refill 07/04/19 17 Telephone [facility] 1500 [facility] [address] [place] [address] Angelina Zaldivar MD Reschedule 06/29/19 17 Refill [facility] 100 [facility] [place] [address] Omi Daly, DO Medication Refill 06/23/19 17 Refill [facility] 100 [facility] [place] [address] Omi Daly, DO Medication Refill 06/21/19 17 Telephone [facility] [address] [facility] [address] [place] [address] Angelina Zaldivar MD Samples 06/21/19 17 Refill [facility] 100 [facility] [place] [address] Patsy Padron MD Medication Refill 06/19/19 17 Refill [facility] 100 [facility] [place] [address] Omi Daly, DO Medication Refill 06/18/19 17 9:00 AM EDT Office Visit [facility] [address] [place] [address] Vernon Salinas MD Dermatitis (Primary Dx) 05/26/19 17 Refill [facility] [address] [place] [address] Malika, Omi, DO Medication Refill 05/25/19 17 Refill [facility] [address] [place] [address] Malika, Omi, DO Medication Refill 05/24/19 17 Refill [facility] [address] [place] [address] MalikaOmi, DO Medication Refill 05/19/19 17 Telephone [facility] [address] [place] [address] MalikaOmi, DO Sore Throat 04/10/19 17 Telephone [facility] [address] [place] [address] AlyBienvenidoEmiliana, RMA Back Pain 04/04/19 17 Refill [facility] [address] [place] [address] MalikaOmi, DO Medication Refill 04/04/19 17 8:30 AM EST Office Visit [facility] [address] [place] [address] MalikaOmi gasca, DO Back pain with left-sided radiculopathy (Primary Dx); Controlled type 2 diabetes mellitus without complication, without long-term current use of insulin (HCC) 04/04/19 17 11:15 AM EST Office Visit [facility] Diabetes [place] [address] [address] [facility] [address] [place] [address] Angelina Zaldivar MD Type 2 diabetes mellitus without complication, without long-term current use of insulin (HCC) (Primary Dx); Hypertension associated with diabetes (HCC); Hyperlipidemia associated with type 2 diabetes mellitus (HCC); Vitamin D deficiency; Vitamin B12 deficiency 03/30/19 17 4:00 PM EST - 03/30/19 17 11:59 PM EST Hospital Encounter [facility] [address] [place] [address] Type 2 diabetes mellitus wit h complication (HCC) Discharge Disposition: Home or Self Care 03/24/19 17 Refill [facility] 100 [facility] [place] [address] Omi Daly, DO Medication Refill 03/24/19 17 Refill [facility] 100 [facility] [place] [address] Patsy Padron MD Medication Refill 03/23/19 17 Telephone [facility] [address] [employer] [address] [place] [phone] Angelina Zaldivar MD Samples 03/22/19 17 Refill [facility] 100 [facility] [place] [address] Omi Daly, DO Medication Refill 03/20/19 17 Telephone [facility] [address] [employer] [address] [place] [phone] Angelina Zaldivar MD Labs Only (Reminder ) 03/09/20 16 Refill [facility] 100 [facility] [place] [address] Omi Daly, DO Medication Refill 03/01/20 16 Telephone [facility] [address] [employer] [address] [place] [phone] Angelina Zaldivar MD Samples 02/12/20 16 Refill [facility] 100 [facility] [place] [address] Omi Daly, DO Medication Refill 02/12/20 16 Refill [facility] 100 [facility] [place] [address] Omi Daly, DO Medication Refill 01/28/20 16 Telephone [facility] 1500 [facility] [address] [place] [address] Angelina Zaldivar MD No Show; Reschedule 01/25/20 16 Telephone [facility] 1500 [facility] [address] [place] [address] Angelina Zaldivar MD Samples 01/25/20 16 Telephone [facility] [address] [address] Angelina Zaldivar MD Labs Only (Lab Reminder ) 01/10/20 16 Refill [facility] 100 [facility] [place] [address] Omi Daly, DO Medication Refill 01/04/20 16 Refill [facility] 100 [facility] [place] [address] Omi Daly, DO Medication Refill 12/27/19 16 Telephone [facility] [address] [address] Angelina Zaldivar MD Samples (Bydureon.); Dysuria 12/08/19 16 Refill [facility] 100 [facility] [place] [address] Omi Daly, DO Medication Refill 12/05/19 16 Refill [facility] 100 [facility] [place] [address] Omi Daly, DO Medication Refill 12/04/19 16 Refill [facility] 100 [facility] [place] [address] Omi Daly, DO Medication Refill 11/30/19 16 Refill [facility] [address] [address] Angelina Zaldivar MD Medication Refill 11/30/19 16 Refill [facility] [address] [facility] [address] [place] [address] Angelina Zaldivar MD Medication Refill 11/29/19 16 Telephone [facility] [address] [facility] [address] [place] [address] Angelina Zaldivar MD Samples 11/26/19 16 Telephone [facility] [address] [place] [address] Omi Daly DO Appointment Needed 11/18/19 16 Telephone [facility] [address] [facility] [address] [place] [address] Angelina Zaldivar MD Samples 10/12/19 16 7:55 AM EDT Office Visit [facility] 1500 [employer] [facility] [address] [place] [address] Angelina Zaldivar MD Type 2 diabetes mellitus with complication (HCC) (Primary Dx); Vitamin B12 deficiency; Hypertension associated with diabetes (HCC); Hyperlipidemia associated with type 2 diabetes mellitus (HCC) 10/11/19 16 4:50 PM EDT - 10/11/19 16 11:59 PM EDT Hospital Encounter [facility] [address] [place] [address] Type 2 diabetes mellitus without complication (HCC) Discharge Disposition: Home or Self Care 10/08/19 16 Refill [facility] [address] [place] [address] Patsy Padron MD Medication Refill 10/06/19 16 Telephone [facility] 1500 [employer] [facility] [address] [place] [address] Angelina Zaldivar MD Labs Only 09/23/19 16 10:15 AM EDT Office Visit [facility] [address] [place] [address] Omi Daly, Dysuria (Primary Dx); Chronic fatigue; Insomnia, persistent 09/22/19 16 Telephone [facility] 100 [facility] [place] [address] Omi Daly, Other 09/18/19 16 11:40 AM EDT - 09/18/19 16 11:59 PM EDT Hospital Encounter [facility] 238 [facility] [place] [address] Other fatigue Discharge Disposition: Home or Self Care 09/18/19 16 11:15 AM EDT Office Visit [facility] 100 [facility] [place] [address] Daniela Garcia APRN Other fatigue (Primary Dx) 09/15/19 16 Telephone [facility] [address] [email or web address] [address] [place] [phone] Angelina Zaldivar MD Samples 09/13/19 16 Refill [facility] [address] [email or web address] [address] [place] [phone] Angelina Zaldivar MD Medication Refill 08/24/19 16 Refill [facility] 100 [facility] [place] [address] Omi Daly DO Medication Refill 08/06/19 16 Refill [facility] [address] [place] [address] Patsy Padron MD Medication Refill 08/03/19 16 Refill [facility] [address] [email or web address] [address] [place] [address] Angelina Zaldivar MD Medication Refill 08/02/19 16 Telephone [facility] [address] [email or web address] [address] [place] [address] Angelina Zaldivar MD Samples 07/26/19 16 Refill [facility] 100 [facility] [place] [address] Omi Daly, DO Medication Refill 07/09/19 16 Telephone [facility] [address] [address] Angelina Zaldivar MD Other (Cost of Bydureon) 07/09/19 16 Orders Only [facility] [address] [address] Sasha Ramos RN,CDE Type 2 diabetes mellitus with complication (HCC) (Primary Dx) 07/09/19 16 7:55 AM EDT Office Visit [address] [address] Angelina Zaldivar MD Type 2 diabetes mellitus without complication (HCC) (Primary Dx); Hypertension associated with diabetes (HCC); Hyperlipidemia associated with type 2 diabetes mellitus (HCC); Vitamin D deficiency 07/06/19 16 1:05 PM EDT - 07/06/19 16 11:59 PM EDT Hospital Encounter [facility] 238 [facility] [place] [address] Controlled type 2 diabetes mellitus without complication (HCC) Discharge Disposition: Home or Self Care 07/02/19 16 Telephone [facility] [address] [address] Angelina Zaldivar MD Labs Only (Lab Reminder) 06/26/19 16 Refill [facility] 100 [facility] [place] [address] Omi Daly, DO Medication Refill 06/16/19 16 Telephone [facility] 100 [facility] [place] [address] Omi Daly, DO Medication Management 06/14/19 16 Telephone [facility] [address] [place] [address] Omi Daly, DO Other 06/11/19 16 2:17 PM EDT - 06/11/19 16 11:59 PM EDT Hospital Encounter [facility] ANTHONY PROCESSING [facility] [place] [address] Screening PSA (prostate specific antigen) Discharge Disposition: Home or Self Care 06/11/19 16 9:15 AM EDT Office Visit [facility] [address] [place] [address] mOi Daly DO Dysuria (Primary Dx); BPH with urinary obstruction; Screening PSA (prostate specific antigen) 05/24/19 16 Refill [facility] [address] [place] [address] Starla Nice MA Medication Refill 05/04/19 16 Refill [facility] [address] [place] [address] Patsy Padron MD Medication Refill 05/03/19 16 Telephone [facility] [address] [place] [address] Starla Nice MA Other 05/01/19 16 9:15 AM EST Office Visit [facility] [address] [place] [address] Omi Daly DO Dysuria (Primary Dx); Acute bacterial sinusitis; BPH with urinary obstruction; Encounter for screening colonoscopy 04/29/19 16 Refill [facility] [address] [place] [address] Omi Daly, Medication Refill 04/20/19 16 Refill [facility] [address] [place] [address] Omi Daly, Medication Refill 04/15/19 16 Refill [facility] [address] [place] [address] Omi Daly, DO Medication Refill 04/14/19 16 Telephone [place] [address] [address] [facility] [address] [place] [address] Angelina Zaldivar MD Visit Follow Up 04/07/19 16 7:55 AM EST Office Visit [address] [address] Angelina Zaldivar MD Controlled type 2 diabetes mellitus without complication (HCC) (Primary Dx); Hypertension associated with diabetes (HCC); Hyperlipidemia associated with type 2 diabetes mellitus (HCC); Vitamin B12 deficiency; Vitamin D deficiency 04/06/19 16 2:15 PM EST - 04/06/19 16 11:59 PM EST Hospital Encounter [facility] 238 [facility] [place] [address] Postoperative anemia due to acute blood loss (Primary Dx); Controlled type 2 diabetes mellitus without complication (HCC); Vitamin B12 deficiency; Vitamin D deficiency; S/P CABG x 3; Ischemic heart disease; Hyperlipidemia Discharge Disposition: Home or Self Care 03/29/[address] [address] Angelina Zaldivar MD Reschedule 03/26/[address] [address] Angelina Zaldivar MD Labs Only 03/18/19 16 Refill [facility] 100 [place] [address] Omi Daly, DO Medication Refill 03/08/20 15 Refill [facility] [address] [place] [address] Omi Daly, DO Medication Refill 02/23/20 15 Telephone [facility] [address] [facility] [address] [place] [address] Angelina Zaldivar MD Medication Reaction (canagliflozin (INVOKANA) 300 mg Oral Tablet) 02/23/20 15 Refill [facility] 100 [place] [address] Edgar Dodson MD Medication Refill 02/20/20 15 Refill [facility] [address] [place] [address] Edgar Dodson MD Medication Refill 02/14/20 15 Refill [facility] [address] [place] [address] Omi Daly, DO Medication Refill 02/13/20 15 Patient Outreach [facility] [address] [place] [address] Elba Tapia, JAMISON Care Management - Chart Review 02/08/20 15 Refill [facility] [address] Omi Daly, DO Medication Refill 01/09/20 15 Refill [facility] 100 [facility] [place] [address] Edgar Dodson MD Medication Refill 01/08/20 15 Refill [facility] [address] [facility] [address] Omi Daly, DO Medication Refill 01/06/20 15 Refill [facility] 100 [facility] [place] [address] Omi Daly, DO Medication Refill 12/26/19 15 7:40 AM EDT Office Visit [facility] 1500 [facility] [address] [place] [address] Angelina Zaldivar MD Controlled type 2 diabetes mellitus without complication (HCC) (Primary Dx); Vitamin D deficiency; Vitamin B12 deficiency; Hypertension associated with diabetes (HCC); Hyperlipidemia associated with type 2 diabetes mellitus (HCC) 12/25/19 9:25 AM EDT - 12/25/19 11:59 PM EDT Hospital Encounter [facility] [address] [place] [address] Controlled type 2 diabetes mellitus without complication (HCC); Hyperlipidemia; Vitamin B12 deficiency; Vitamin D deficiency; Postoperative anemia due to acute blood loss; S/P CABG x 3; Ischemic heart disease; Essential hypertension Discharge Disposition: Home or Self Care 12/24/19 15 6:15 PM EDT Hospital Encounter [facility] [address] [place] [address] Left without seen 12/23/19 15 Telephone [facility] [address] [facility] [address] [place] [address] Angelina Zaldivar MD Labs Only 12/10/19 15 Telephone [facility] 100 [facility] [place] [address] Edgar Dodson MD Visit Follow Up 12/10/19 15 Patient Outreach [facility] 100 [facility] [place] [address] Elba Tapia RN Care Transition (Follow up call.) 12/07/19 15 Refill [facility] [address] [place] [address] Edgar Dodson MD Medication Refill 12/04/19 15 3:15 PM EDT Office Visit [facility] 100 [place] [address] Edgar Dodson MD Controlled type 2 diabetes mellitus without complication (HCC) (Primary Dx); Essential hypertension; Gastroesophageal reflux disease without esophagitis 12/03/19 15 Refill [facility] [address] [place] [address] Omi Daly DO Medication Refill 11/14/19 15 Telephone [facility] [address] [place] [address] Edgar Dodson MD Other 09/24/19 15 Telephone [facility] [address] [facility] [address] [place] [address] Angelina Zaldivar MD Results 09/24/19 15 8:00 AM EDT - 09/24/19 15 11:59 PM EDT Hospital Encounter [facility] [address] [place] [address] Controlled type 2 diabetes mellitus without complication (HCC); Hypokalemia Discharge Disposition: Home or Self Care 09/24/19 15 7:40 AM EDT Office Visit [address] [address] Angelina Zaldivar MD Controlled type 2 diabetes mellitus without complication (HCC) (Primary Dx); Essential hypertension; Hyperlipidemia; Vitamin D deficiency; Vitamin B12 deficiency 09/23/19 11:35 AM EDT - 09/23/19 11:59 PM EDT Hospital Encounter [facility] 238 [facility] [place] [address] Uncontrolled type 2 diabetes mellitus with microalbuminuria or microproteinuria (HCC); Vitamin B12 deficiency; Vitamin D deficiency; Postoperative anemia due to acute blood loss; S/P CABG x 3; CAD (coronary artery disease); Chest pain; Ischemic heart disease; Hyperlipidemia; GERD (gastroesophageal reflux disease); DM (diabetes mellitus), type 2, uncontrolled (HCC); HTN (hypertension) Discharge Disposition: Home or Self Care 09/21/19 15 Refill [facility] [address] [place] [address] Omi Daly DO Medication Refill 09/19/[address] [address] Angelina Zaldivar MD Reschedule (LABS) 09/11/19 15 Telephone [place] [address] [address] [address] Angelina Zaldivar MD 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) 09/06/19 15 Refill [facility] [address] [place] [address] Edgar Dodson MD Medication Refill 09/04/19 15 Patient Outreach [facility] 100 [place] [address] Elba Tapia RN Care Transition (Follow up call.) 08/28/19 15 Refill [facility] 100 [facility] [place] [address] Omi Daly, DO Medication Refill 08/22/19 15 Refill [facility] 100 [facility] [place] [address] Omi Daly, DO Medication Refill 08/21/19 15 Telephone [facility] [address] [facility] [address] [place] [address] Angelina Zaldivar MD Other ([employer] Patient Assistance Program) 08/21/19 15 9:40 AM EDT Office Visit [facility] [address] [facility] [address] [place] [address] Angelina Zaldivar MD Hyperlipidemia (Primary Dx); Uncontrolled type 2 diabetes mellitus with microalbuminuria or microproteinuria (HCC); Essential hypertension; Vitamin D deficiency; Vitamin B12 deficiency; Tinea pedis of right foot 08/18/19 15 Refill [facility] 100 [facility], [facility] Edgar Dodson MD Medication Refill 08/18/19 15 Refill [facility] 100 [facility], [facility] Omi Daly, DO Medication Refill 08/07/19 15 Refill [facility] 100 [facility], [facility] Edgar Dodson MD Medication Refill 08/05/19 15 Telephone [facility] 100 [facility] [place] [address] Egdar Dodson MD Referral 08/01/19 15 Telephone [facility] 100 [facility] [place] [address] Edgar Dodson MD Other 07/27/19 15 Refill [facility] 100 [facility] [place] [address] Omi Daly, DO Medication Refill 07/26/19 15 Telephone [facility] [address] [place] [address] Starla Nice MA Diarrhea 07/19/19 15 Refill [facility] [address] [place] [address] Omi Daly, DO Medication Refill 07/06/19 15 Refill [facility] [address] [place] [address] Omi Daly, DO Medication Refill 07/05/19 15 Refill [facility] [address] [place] [address] Edgar Dodson MD Medication Refill 06/23/19 15 Refill [facility] [address] [place] [address] Omi Daly, DO Medication Refill 06/17/19 15 Refill [facility] [address] [place] [address] Edgar Dodson MD Medication Refill 06/16/19 15 Refill [facility] [address] [place] [address] Edgar Dodson MD Medication Refill 06/12/19 15 Patient Outreach [facility] [address] [place] [address] Elba Tapia RN Care Transition (Follow up call.) 06/12/19 15 Refill [facility] [address] [place] [address] Omi Daly, DO Medication Refill 06/10/19 15 Telephone [facility] [address] [place] [address] Edgar Dodson MD Medication Management 06/06/19 15 Refill [facility] [address] [place] [address] Edgar Dodson MD Medication Refill 06/01/19 15 Refill [facility] [address] [place] [address] Omi Daly, DO Medication Refill 05/30/19 15 Telephone [facility] [address] [place] [address] Edgar Dodson MD Medication Refill 05/21/19 15 Refill [facility] [address] [place] [address] Omi Daly, DO Medication Refill 05/09/19 15 Refill [facility] [address] [place] [address] Omi Daly, DO Medication Refill 05/04/19 15 Refill [facility] [address] [place] [address] Edgar Dodson MD Medication Refill 04/21/19 15 Orders Only [facility] [address] Carlee Rose CMA Vitamin D deficiency (Primary Dx) 04/18/19 15 2:15 PM EST - 04/18/19 15 11:59 PM EST Hospital Encounter [facility] ANTHONY PROCESSING [facility] [place] [address] HTN (hypertension); Hyperlipidemia; Routine general medical examination at a health care facility; Vitamin D deficiency Discharge Disposition: Home or Self Care 04/18/19 15 8:15 AM EST Office Visit [facility] 100 [facility] [place] [address] Edgar Dodson MD Routine general medical examination at a health care facility (Primary Dx); DM (diabetes mellitus), type 2, uncontrolled (HCC); HTN (hypertension); Hyperlipidemia; CAD (coronary artery disease); Vitamin D deficiency; Sinusitis 04/07/19 15 Telephone [facility] [address] [place] [address] Madeline Turk RMA Head Lice 04/06/19 15 Telephone [facility] [address] [place] [address] Starla Nice MA Head Lice 04/06/19 15 Refill [facility] [address] [place] [address] Edgar Dodson MD Medication Refill 04/06/19 15 Refill [facility] [address] [place] [address] Omi Daly, DO Medication Refill 03/28/19 15 Refill [facility] [address] [place] [address] Edgar Dodson MD Medication Refill 03/25/19 15 Telephone [facility] [address] [place] [address] Edgar Dodson MD Medication Management 03/23/19 15 Telephone [facility] 100 [facility] [place] [address] Edgar Dodson MD Other 03/18/19 15 Telephone [facility] [address] [facility] [address] Edgar Dodson MD Medication Management 03/14/19 15 Telephone [facility] [address] [facility] [address] Edgar Dodson MD Medication Management 03/13/19 15 Telephone [facility] [address] [facility] [address] Omi Daly, DO Medication Refill 03/11/20 14 Telephone [facility] [address] [facility] [address] Omi Daly, DO Medication Refill 02/28/20 14 Refill [facility] [address] [facility] [address] Edgar Dodson MD Medication Refill 02/18/20 14 Telephone [facility] [address] [facility] [address] Starla Nice MA Head Lice 02/03/20 14 Telephone [place] [address] [place] [address] Omi Daly DO Other 02/01/20 14 3:00 PM EST - 02/01/20 14 11:59 PM EST Hospital Encounter [facility] [address] Hyperlipidemia Discharge Disposition: Home or Self Care 02/01/20 14 8:45 AM EST Office Visit [address] [place] [address] Omi Daly DO DM (diabetes mellitus), type 2, uncontrolled (HCC) (Primary Dx); HTN (hypertension); Hyperlipidemia 01/27/20 14 Refill [address] [address] [place] [address] Edgar Dodson MD Medication Refill 01/20/20 14 Patient Outreach [address] [address] Elba Tapia RN Care Transition (Follow up call.) 01/06/20 14 Refill [facility] [address] [place] [address] Edgar Dodson MD Medication Refill 12/21/19 14 Refill SEP [address] [address] Edgar Dodson MD Medication Refill 12/13/19 14 Refill [facility] [address] [place] [address] Edgar Dodson MD Medication Refill 11/22/19 14 Patient Outreach [address] [address] Elba Tapia RN Care Transition (Follow up call.) 10/29/19 14 8:40 PM EDT - 10/29/19 14 11:59 PM EDT Hospital Encounter [facility]G LAB ANTHONY PROCESSING [facility] [address] DM (diabetes mellitus), type 2, uncontrolled (HCC) Discharge Disposition: Home or Self Care 10/29/19 14 1:15 PM EDT Clinical Support [facility] [address] [place] [address] Michelle Baig JORGE DM (diabetes mellitus), type 2, uncontrolled (HCC) (Primary Dx) 10/25/19 14 Refill [facility] 100 [facility] [place] [address] Edgar Dodson MD Medication Refill 10/16/19 14 Patient Outreach [address] [place] [address] Elba Tapia RN Care Transition (Follow up call.) 10/16/19 14 Telephone [facility] 100 [facility] [place] [address] Edgar Dodson MD Medication Refill 10/15/19 14 Telephone [facility] 100 [facility] [place] [address] Edgar Dodson MD Medication Refill 10/07/19 14 1:30 PM EDT Office Visit [facility] 100 [place] [address] Omi Daly DO DM (diabetes mellitus), type 2, uncontrolled (HCC) (Primary Dx); GERD (gastroesophageal reflux disease) 09/26/19 14 Telephone [facility] 100 [place] [address] Starla Nice MA Other 09/26/19 14 12:20 PM EDT Office Visit [facility] [address] [place] [address] Samuel Jo MD S/P CABG x 3 (Primary Dx) 09/23/19 14 Patient Outreach [facility] [address] [place] [address] Whitney Pack, in home baby sitter (Hospital follow up call week 4) 09/20/19 14 Patient Outreach [facility] [address] [place], [place] [id number] Whitney Pack RN Care Transition (hospital follow up call week 3) 09/17/19 14 1:45 PM EDT Office Visit [facility] [address] [place] [address] Jeffy Fuentes MD CAD (coronary artery disease) (Primary Dx); HTN (hypertension); S/P CABG x 3; Ischemic heart disease 09/13/19 14 Orders Only [facility] 100 [facility] [place] [address] Patsy Padron MD DM (diabetes mellitus), type 2, uncontrolled (HCC) (Primary Dx) 09/11/19 14 Telephone [facility] [address] [place] [address] Catih Torres RN Care Transition (Follow up CABG) 09/09/19 14 Telephone [facility] 100 [facility] [place] [address] Kavitha Spence MA Other 09/08/19 14 Refill [facility] 100 [facility] [place] [address] Edgar Dodson MD Medication Refill 09/06/19 14 Telephone [facility] [address] [facility] [place] [address] Starla Nice MA Other 09/05/19 14 11:15 AM EDT Office Visit [facility] [address] [facility] [place] [address] Omi Daly DO Cellulitis (Primary Dx); DM (diabetes mellitus), type 2, uncontrolled (HCC) 09/04/19 14 Telephone [facility] [address] [place] [address] Edgar Dodson MD Other 09/04/19 14 Telephone [facility] 100 [facility] [place] [address] Carlee Rose CMA Blood Sugar Problem 09/03/19 14 Telephone [facility] [address] [place] [place] [address] Cathi Torres RN Care Transition (Hospital f/u CABG) 09/02/19 14 3:00 PM EDT Office Visit [facility] 100 [place] [address] Omi Daly DO DM (diabetes mellitus), type 2, uncontrolled (HCC) (Primary Dx); S/P CABG x 3; CAD (coronary artery disease); HTN (hypertension) 08/24/19 14 12:34 PM EDT - 08/30/19 14 2:45 PM EDT Hospital Encounter [facility] [place] [address] Tod Wolf MD Clements, Wilson Monroe, MD CAD (coronary artery disease) (Primary Dx); Chest pain; DM (diabetes mellitus) (HCC); GERD (gastroesophageal reflux disease); HTN (hypertension); Hyperlipidemia; Ischemic heart disease; DM (diabetes mellitus), type 2, uncontrolled (HCC); Postoperative anemia due to acute blood loss; S/P CABG x 3 Discharge Disposition: Home or Self Care 08/26/19 14 8:00 AM EDT - 08/26/19 14 12:20 PM EDT Surgery [facility] PERIOP [facility] [place] [address] Samuel Jo MD CORONARY ARTERY BYPASS GRAFT 08/24/19 14 Refill [facility] [address] [place] [address] Patsy Padron MD Medication Refill 08/23/19 14 8:50 AM EDT - 08/24/19 14 11:39 AM EDT Hospital Encounter [facility] [address] [place] [address] Jeffy Fuentes MD Discharge Disposition: Short Term Hospital 08/23/19 14 11:00 AM EDT - 08/23/19 14 12:00 PM EDT Surgery Jeffy Fuentes MD CARDIAC PROCEDURE - JANETH/FTT-COLD STRIP ROLLER ONLY 08/20/19 14 2:10 PM EDT - 08/20/19 14 11:59 PM EDT Hospital Encounter [facility] [address] [id number] HTN (hypertension) (Primary Dx); Chest pain; Ischemic heart disease; DM (diabetes mellitus) (HCC); Hyperlipidemia; GERD (gastroesophageal reflux disease) Discharge Disposition: Home or Self Care 08/20/19 14 1:45 PM EDT Office Visit [facility] [address] [place] [address] Jeffy Fuentes MD HTN (hypertension) (Primary Dx); Chest pain; Ischemic heart disease 08/17/19 14 9:30 AM EDT Office Visit [facility] 100 [facility], [facility] Omi Daly DO Type II or unspecified type diabetes mellitus without mention of complication, uncontrolled (HCC) (Primary Dx); Chest pain, unspecified; Hyperlipidemia 07/24/19 14 Telephone [facility] 100 [facility], [facility] Carlee Rose, HAND ICER Medication Refill 07/24/19 14 Refill [facility] [address] [facility], [facility] Carlee Rose, HAND ICER Medication Refill 07/21/19 14 Refill [facility] 100 [facility], [facility] Omi Daly DO Medication Refill 07/11/19 14 Refill [facility] 100 [facility] [place] [address] Edgar Dodson MD Medication Refill 07/02/19 14 Refill [facility] 100 [facility] [place] [address] Edgar Dodson MD Medication Refill 06/24/19 14 Telephone [facility] 100 [facility] [place] [address] Carlee Rose, HAND ICER Medication Refill 04/08/19 14 Refill [facility] 100 [facility] [place] [address] Emiliana Lu, RMA Medication Refill 03/01/20 13 Refill [facility] 100 [facility] [place] [address] Edgar Dodson MD Medication Refill 02/08/20 13 Telephone [facility] 100 [facility] [place] [address] Edgar Dodson MD Medication Refill 02/08/20 13 Refill [facility] 100 [facility] [place] [address] Michelle Baig, RMA Medication Refill 01/11/20 13 Refill [facility] 100 [place] [address] Edgar Dodson MD Medication Refill 01/05/20 13 Telephone [facility] 100 [place] [address] Mitzi Porsha Ana Rosa, CCMA Medication Refill 01/05/20 13 Refill [facility] 100 [facility] [place] [address] Edgar Dodson MD Medication Refill 12/22/19 13 Telephone [facility] 100 [place] [address] Edgar Dodson MD Medication Refill 12/12/19 13 Refill [facility] 100 [place] [address] Patsy Padron MD Medication Refill 12/03/19 13 Telephone [facility] 100 [place] [address] Edgar Dodson MD Medication Refill 11/09/19 13 Telephone [facility] 100 [place] [address] Va Self, RMA Nephrolithiasis 11/01/19 13 Refill [facility] 100 [place] [address] Starla Nice MA Medication Refill 10/18/19 13 Telephone [facility] [address] [place] [address] Edgar Dodson MD Medication Refill 09/22/19 [address] [place] [address] Patsy Padron MD Medication Refill 09/18/19 13 3:31 PM EDT - 09/18/19 13 11:59 PM EDT Hospital Encounter [facility] LAB ANTHONY PROCESSING [place] [address] HTN (hypertension); Hyperlipidemia; DM (diabetes mellitus) (HCC) Discharge Disposition: Home or Self Care 09/18/19 13 8:45 AM EDT Office Visit [address] [place] [address] Edgar Dodson MD Routine general medical examination at a health care facility (Primary Dx); DM (diabetes mellitus) (HCC); HTN (hypertension); Hyperlipidemia; GERD (gastroesophageal reflux disease) 08/28/19 13 Refill [address] [address] [place] [address] Edagr Dodson MD Medication Refill 07/14/19 [address] [place] [address] Edgar Dodson MD Medication Refill 06/14/19 [address] [place] [address] Patsy Padron MD Medication Refill 06/11/19 13 Orders Only [place] [address] [place] [address] Edgar Dodson MD Shingles (Primary Dx) 06/06/19 13 10:00 AM EDT Office Visit [place] [address] [place] [address] Edgar Dodson MD DM (diabetes mellitus) (HCC) (Primary Dx); HTN (hypertension); Hyperlipidemia; GERD (gastroesophageal reflux disease); Cellulitis 06/02/19 13 Refill [facility] [address] [place] [address] Starla Nice MA Medication Refill 05/21/19 13 Refill [facility] 100 [facility] [place] [address] Edgar Dodson MD Medication Refill 05/09/19 13 Refill [facility] 100 [facility] [place] [address] Patsy Padron MD Medication Refill 04/12/19 13 Refill [facility] 100 [facility] [place] [address] Edgar Dodson MD Medication Refill 03/25/19 13 Telephone [facility] 100 [facility] [place] [address] Starla Nice MA Medication Refill 02/13/20 12 Telephone [facility] 100 [facility] [place] [address] Edgar Dodson MD Medication Refill 01/26/20 12 Telephone [facility] 100 [facility] [place] [address] Starla Nice MA Other 01/20/20 12 Refill [facility] 100 [place] [address] Edgar Dodson MD Medication Refill 12/29/19 12 Telephone [facility] [address] [place] [address] Cindy Frey (Diabetes Education) 12/29/19 12 Telephone [facility] 100 [facility] [place] [address] Va Self RMA Nasal Congestion 12/28/19 12 Telephone [facility] 100 [place] [address] Va Self RMA Obesity 12/27/19 12 Telephone [facility] 100 [facility] [place] [address] Porsha Cartagena, CCMA Other 12/08/19 12 Refill [facility] 100 [facility] [place] [address] Omi Daly, Medication Refill 10/17/19 12 Refill [facility] 100 [facility] [place] [address] Edgar Dodson MD Medication Refill 10/07/19 12 4:03 PM EDT - 10/07/19 12 11:59 PM EDT Hospital Encounter EDG LAB ANTHONY PROCESSING [place] [address] HTN (hypertension); DM (diabetes mellitus) (HCC); Hyperlipidemia Discharge Disposition: Home or Self Care 10/07/19 12 10:00 AM EDT Office Visit [facility] 100 [facility] [place] [address] Edgar Dodson MD DM (diabetes mellitus) (HCC); HTN (hypertension); GERD (gastroesophageal reflux disease); Hyperlipidemia 10/06/19 12 Refill [facility] 100 [facility] [place] [address] Edgar Dodson MD Medication Refill 09/01/19 12 Refill [facility] 100 [place] [address] Omi Daly, Medication Refill 09/01/19 12 Refill [facility] 100 [facility] [place] [address] Edgar Dodson MD Medication Refill 08/07/19 12 Refill [facility] [address] [facility] [place] [address] Edgar Dodson MD Medication Refill 07/25/19 12 Refill [facility] [address] [place] [address] Edgar Dodson MD Medication Refill 07/04/19 12 Telephone [facility] [address] [place] [address] Cindy Frey Diabetes (dietary consult request) 06/25/19 12 Refill [facility] [address] [place] [address] Omi Daly DO Medication Refill 06/20/19 12 Telephone [facility] [address] [place] [address] Edgar Dodson MD Other 05/15/19 12 Telephone [facility] [address] [place] [address] Henry Carrillo MA Medication Refill (med) 05/15/19 12 Refill [facility] [address] [place] [address] Omi Daly DO Medication Refill 05/13/19 12 Refill [facility] [address] [place] [address] Edgar Dodson MD Medication Refill 04/01/19 12 Telephone [facility] [address] [place] [address] Edgar Dodson MD Medication Refill 03/06/20 11 Refill [facility] [address] [place] [address] Omi Daly DO Medication Refill 03/06/20 11 Refill [facility] [address] [place] [address] Edgar Dodson MD Medication Refill 02/17/20 11 10:15 AM EST Office Visit [facility] [address] [place] [address] Edgar Dodson MD Flank pain; Frequent urination; Hematuria 02/04/20 11 2:00 PM EST Office Visit [facility] [address] [place] [address] Omi Daly DO DM (diabetes mellitus) (HCC) (Primary Dx) 12/11/19 11 10:30 AM EDT Office Visit [facility] [address] [place] [address] Patsy Padron MD Urinary frequency; Abdominal pain; Peripheral edema 12/04/19 11 Refill [facility] [address] [place] [address] Omi Daly DO Medication Refill 12/04/19 11 Refill [facility] [address] [place] [address] Edgar Dodson MD Medication Refill 10/30/19 11 Refill [facility] [address] [place] [address] Omi Daly DO Medication Refill 10/02/19 11 10:45 AM EDT Office Visit [facility] [address] [place] [address] Omi Daly DO Physical exam, annual (Primary Dx) 09/30/19 11 10:15 AM EDT Office Visit [facility] [address] [place] [address] Edgar Dodson MD Cellulitis (Primary Dx); DM (diabetes mellitus) (HCC); GERD (gastroesophageal reflux disease); HTN (hypertension) 09/28/19 11 Telephone [facility] [address] [place] [address] Edgar Dodson MD Medication Refill 08/16/19 11 Telephone [facility] [address] [place] [address] Porsha Cartagena, CCMA Results 08/14/19 11 2:45 PM EDT - 08/14/19 11 11:59 PM EDT Hospital Encounter [facility] LAB ANTHONY PROCESSING [place] [address] DM (diabetes mellitus) ([facility]) Discharge Disposition: Home or Self Care 08/14/19 11 10:30 AM EDT Office Visit [facility] [address] [place] [address] Edgar Dodson MD Frequent urination (Primary Dx); DM (diabetes mellitus) (HCC) 08/07/19 11 10:00 AM EDT Office Visit [facility] [address] [place] [address] Patsy Padron MD Bronchitis (Primary Dx) 06/28/19 11 Refill [facility] [address] [place] [address] Michelle Baig RMA Medication Refill 05/15/19 11 Refill [facility] [address] [place] [address] Edgar Dodson MD Medication Refill 04/23/19 11 Telephone [facility] [address] [place] [address] Mesha Nath CMA Medication Refill 04/20/19 11 1:15 PM EST Office Visit [facility] [address] [place] [address] Edgar Dodson MD Hyperlipidemia; GERD (gastroesophageal reflux disease); Back pain 04/05/19 11 Telephone [facility] [address] [place] [address] Starla Nice MA Dental Pain 03/31/19 11 Refill [facility] [address] [place] [address] Edgar Dodson MD Medication Refill 03/08/20 10 Telephone [facility] [address] [place] [address] Starla Nice MA Medication Refill 03/06/20 10 Refill [facility] [address] [place] [address] Edgar Dodson MD Medication Refill 03/03/20 10 Refill [facility] [address] [place] [address] Edgar Dodson MD Medication Refill 03/01/20 10 Telephone [facility] [address] [place] [address] Mesha Nath, [facility] Other 02/13/20 10 11:15 AM EST Office Visit [facility] [address] [place] [address] Omi Daly, DM (diabetes mellitus) (HCC); HTN (hypertension) 02/11/20 10 Telephone [facility] [address] [place] [address] Mesha Nath, [facility] Other 12/17/19 10 Refill [facility] [address] [place] [address] Patricia Ennis RMA Medication Refill 11/17/19 10 Telephone [facility] [address] [place] [address] Starla Nice MA Other 11/17/19 10 Refill [facility] [address] [place] [address] Omi Daly DO Medication Refill 11/17/19 10 Refill [facility] [address] [place] [address] Edgar Dodson MD Medication Refill 11/10/19 10 Telephone [facility] [address] [place] [address] Va Self RMA Medication Management 11/06/19 10 Telephone [facility] [address] [place] [address] Edgar Dodson MD Nasal Congestion 02/08/20 09 12:25 AM EST - 02/08/20 09 11:59 PM EST Emergency [facility] EPIC CON RADHAK Jarek Chun MD 11/22/19 09 4:35 PM EDT - 11/22/19 09 11:59 PM EDT Hospital Encounter HST EPIC CON RADHAK EDG Edgar Dodson MD 08/25/19 08 10:10 PM EDT - 08/26/19 08 12:38 PM EDT Hospital Encounter HST 2B2 Lyle Hines MD 02/06/20 07 4:29 PM EST - 02/06/20 07 11:59 PM EST Hospital Encounter [facility] LAB [facility]RT Dr Randy 12/30/19 07 2:56 PM EDT - 12/30/19 07 11:59 PM EDT Hospital Encounter HST LAB EDG Edgar Dodson MD 08/12/19 07 5:12 PM EDT - 08/12/19 07 11:59 PM EDT Hospital Encounter HST LAB EDG Edgar Dodson MD 12/17/19 06 4:37 PM EDT - 12/17/19 06 11:59 PM EDT Hospital Encounter HST LAB EDG Edgar Dodson MD 06/25/19 06 3:55 PM EDT - 06/25/19 06 11:59 PM EDT Hospital Encounter HST LAB EDG Edgar Dodson MD 08/31/19 05 3:12 PM EDT - 08/31/19 05 11:59 PM EDT Hospital Encounter HST LAB EDG Omi Daly DO 08/24/19 03 2:37 PM EDT - 08/24/19 03 11:59 PM EDT Hospital Encounter HST LAB EDG Anai Rehman MD 10/17/19 02 12:49 PM EDT - 10/17/19 02 11:59 PM EDT Hospital Encounter HST LAB GRT Hussein Mccann MD 09/25/19 02 8:47 AM EDT - 09/25/19 02 11:59 PM EDT Hospital Encounter HST GC SPEC SVC GRT Donald Joyce MD 07/12/18 99 10:38 PM EDT - 07/13/18 99 12:39 AM EDT Emergency HST EPIC CON UNK NIEVESG Tod Carter MD 07/11/18 96 7:03 PM EDT - 07/11/18 96 11:59 PM EDT Hospital Encounter HST EPIC CON UNK [facility] 06/24/18 96 8:12 PM EDT - 06/26/18 96 8:00 PM EDT Hospital Encounter HST Austyn Singh 02/20/19 92 12:32 AM EST - 02/20/19 92 12:15 PM EST Hospital Encounter HST 4CS Nikunj Arredondo MD 02/05/19 92 7:40 AM EST - 02/05/19 92 11:59 PM EST Hospital Encounter HST EPIC CON UNK EDG Javi Steiner 03/17/18 92 2:28 PM EST - 03/17/18 92 11:59 PM EST Hospital Encounter HST EPIC CON UNK EDG Javi Steiner Allergies Active Allergy Reactions Criticality Noted Date Comments Milk Shortness Of Breath 09/25/2013 Can have butter (had issue with not able to get green beans, chicken noodle soup, but able to have) Insulin Aspart Other (See Comments) High 12/01/2019 Hypersensitivity; and Photosensitivity. Per pt Empagliflozin Other (See Comments) High 01/02/2022 Got a blood infection Naproxen Other (See Comments) 06/11/2023 Clindamycin Rash 06/11/2023 Medications Cholecalciferol, Vitamin D3, 125 mcg (5,000 unit) Oral Tablet Take 1 Tab by mouth daily. Active aspirin 81 mg Oral Tablet, Delayed Release (E.C.) TAKE 1 TABLET EVERY DAY 90 Tablet 1 10/14/19 22 Active potassium (POTASSIMIN ORAL) Take by mouth. Active Saccharomyces boulardii (FLORASTOR) 250 mg Oral CapsuleIndications :Irritable bowel syndrome with diarrhea Take 1 Capsule by mouth 2 times daily. 60 Capsule 2 04/11/19 24 Active nitroGLYCERIN (NITROSTAT) 0.4 mg SL Tablet, Sublingual Place 1 Tablet under the tongue every 5 minutes as needed for Chest pain. 100 Tablet 3 06/25/19 24 Active Blood Sugar Diagnostic Mis StripIndications:U ncontrolled type 2 diabetes mellitus with hyperglycemia (HCC) Test 3 times daily Dx E11.69 One touch meter 200 Each 06/29/19 24 Active Lancets Misc MiscIndications:Un controlled type 2 diabetes mellitus with hyperglycemia (HCC) Test 3 times daily One Touch Meter Dx E11.69 200 Each 11 06/29/19 24 Active lidocaine (LIDODERM) 5 % Top Adhesive Patch, Medicated Place 1 Patch onto the skin daily. Apply for 12 hours, remove for 12 hours, then apply new patch 30 Patch 07/10/19 24 Active ZINC ORAL Active multivitamin (THERAGRAN) Oral Tablet Take 1 Tablet by mouth daily. Active ascorbic acid (VITAMIN C ORAL) Take by mouth daily. Active cinnamon bark (CINNAMON ORAL) Take by mouth daily. Active Lancets [employer] [facility] [employer] MiscIndications:Un controlled type 2 diabetes mellitus with hyperglycemia (HCC) Insurance preferred Test 3x daily dx E11.65 300 Each 6 10/24/19 24 Active Blood Sugar Diagnostic [facility] StripIndications:U ncontrolled type 2 diabetes mellitus with hyperglycemia ([facility]) Insurance preferred Test 3x daily dx E11.65 300 Each 6 10/24/19 24 Active ranolazine (RANEXA) 500 mg Oral Tablet Sustained Release 12 hr Take 1 Tablet by mouth every 12 hours. 120 Tablet 5 4 2:31 PM EDT 11/01/19 24 Active Insulin [place], Disposable, (SALENA PEN NEEDLE) 32 gauge x 5/32 [facility] [employer] NeedleIndications: Uncontrolled type 2 diabetes mellitus with hyperglycemia ([facility]) Use as directed with insulin 100 Each 11 11/19/19 24 Active clopidogreL (PLAVIX) 75 mg Oral TabletIndications: Dyslipidemia associated with type 2 diabetes mellitus ([facility]),History of TIA (transient ischemic attack) Take 1 tablet by mouth once daily 90 Tablet 11/28/19 24 Active meloxicam (MOBIC) 15 mg Oral TabletIndications: Numbness and tingling of left arm and leg,Numbness and tingling of right arm and leg,Generalized osteoarthritis of multiple sites Take 1 Tablet by mouth daily. 30 Tablet 2 11/28/19 24 Active rosuvastatin (CRESTOR) 20 mg Oral TabletIndications: Dyslipidemia associated with type 2 diabetes mellitus (HCC) Take 1 tablet by mouth nightly 100 Tablet 2 12/11/19 24 Active insulin glargine (LANTUS SOLOSTAR U-100 INSULIN) 100 unit/mL (3 mL) SubQ Insulin PenIndications:Unc ontrolled type 2 diabetes mellitus with hyperglycemia ([facility]) Subcutaneous (Inject under the skin) 15 Units nightly. 12/19/19 24 Active fUROsemide (LASIX) 20 mg Oral TabletIndications: CHF (congestive heart failure), NYHA class I, acute on chronic, combined ([facility]) Take 3 tablets by mouth once daily 300 Tablet 2 04/08/19 25 Active clotrimazole-betam ethasone (LOTRISONE) Top CreamIndications:T inea corporis Apply topically 2 times daily. 15 g 1 04/08/19 25 Active clobetasoL (TEMOVATE) 0.05 % sclp SolutionIndication s:Psoriasis of scalp APPLY SOLUTION TOPICALLY TWICE DAILY 50 mL 2 05/17/19 25 Active triamcinolone (KENALOG) 0.1 % Top CreamIndications:F acial rash Apply topically 2 times daily. 80 g 2 05/21/19 25 Active fexofenadine (MARILIA) 60 mg Oral TabletIndications: Sore throat,Runny nose Take 1 tablet by mouth twice daily 180 Tablet 06/13/19 25 Active ibuprofen (ADVIL;MOTRIN) 800 mg Oral Tablet TAKE 1 TABLET BY MOUTH EVERY 8 HOURS NEEDED 90 Tablet 06/17/19 25 Active lisinopriL (PRINIVIL;ZESTRIL) 2.5 mg Oral TabletIndications: Essential hypertension Take 1 tablet by mouth once daily 100 Tablet 2 06/26/19 25 Active glimepiride (AMARYL) 4 mg Oral TabletIndications: Uncontrolled type 2 diabetes mellitus with hyperglycemia (HCC) TAKE 1 TABLET BY MOUTH TWICE DAILY BEFORE MEAL(S) 180 Tablet 06/27/19 25 Active ketoconazole (NIZORAL) 2 % Top Cream APPLY CREAM TOPICALLY ONCE DAILY 60 g 06/27/19 25 Active pantoprazole (PROTONIX) 40 mg Oral Tablet, Delayed Release (E.C.)Indications: Gastroesophageal reflux disease with esophagitis, unspecified whether hemorrhage Take 1 tablet by mouth twice daily 200 Tablet 1 07/03/19 25 Active isosorbide mononitrate (IMDUR) 60 mg Oral Tablet Sustained Release 24 hrIndications:Lamar nary artery disease involving ki[place] tribe heart without angina pectoris, unspecified vessel or lesion type,Chest pain, unspecified type TAKE 1 TABLET BY MOUTH ONCE DAILY IN THE MORNING 90 Tablet 07/09/19 25 Active metFORMIN (GLUCOPHAGE XR) 500 mg Oral ER 24 hr tabletIndications: Uncontrolled type 2 diabetes mellitus with hyperglycemia (HCC) TAKE 2 TABLETS BY MOUTH TWICE DAILY WITH MEALS 400 Tablet 07/10/19 25 Active dapagliflozin propanediol (FARXIGA) 10 mg Oral Tablet Take 1 Tablet by mouth daily. 90 Tablet 3 07/29/19 25 Active calcitRIOL (ROCALTROL) 0.25 mcg Oral CapsuleIndications :Vitamin D deficiency Take 1 Capsule by mouth every 48 hours. 30 Capsule 6 09/03/19 25 Active insulin glargine (LANTUS SOLOSTAR U-100 INSULIN) 100 unit/mL (3 mL) SubQ Insulin Pen Inject 15 ml per day 15 mL 09/03/19 25 025 Active Active Problems Patient Care Coordination No te Formatting of this note migh t be different from the original. A1C>9 [facility] - Carlos Langston MD Interventional Pain Protocol: Mata report completed (EVERY 3 MONTHS) (04/20/2022) Pharmacy: [facility] [address] [place] [id number] - [address] - [phone] [facility] additional info (Transportation, WC, Compound, No Show, PPW) Problem Noted Date Diagnosed Date Acute on chronic systolic congestive heart failu re 12/31/2023 Assessment & Plan (04/08/2024 1:15 PM EST): Stable on lasis and misael and IMDUR Assessment & Plan (02/13/2024 1:38 PM EST): Orders: NT PROBNP; Future XR CHEST PA AND LATERAL; Future Assessment & Plan (01/04/2024 11:19 AM EDT): Orders: XR CHEST PA AND LATERAL; Future Congestive heart failure of unknown etiology Acute on chronic systolic heart failure 12/31/19 24 S/P angioplasty with stent 10/31/2023 Combined forms of age-related cataract of right eye 10/03/2022 Combined forms of age-related cataract of left e ye 10/03/2022 Assessment & Plan (10/03/2022 3:40 PM EDT): x 2 months - [place] still worse with manifest as compared with last visit. Educated and reassured - possible etiologies: uncontrolled BS, cataracts, or mac tel. Recommend referral to retina for consultation, and as long as they do not recommend treatments, return for cataract consult with Dr. Stewart. Stressed importance of tight BS and BP control. Do not recommend new Srx at this time. Patient aware to call with worsening or persistent symptoms. OCT macula 09/2022 Duration 10 years A1c 10.0% 09/2022 FBS 221 Medications Farxiga, Glimepiride, Metformin, Semaglutide I reviewed and interpreted OCT scans from today's visit - nerve WNL. Infected hematoma 08/24/2022 Acute right-sided congestive heart failure 08/18 CHF (congestive heart failur e), NYHA class I, acute on chronic, combined 08/18/2022 Assessment & Plan (02/13/2024 1:38 PM EST): Orders: NT PROBNP; Future XR CHEST PA AND LATERAL; Future Assessment & Plan (01/04/2024 11:19 AM EDT): Conitnue lasix and parameters set by nephrology for increase water output Orders: XR CHEST PA AND LATERAL; Future Assessment & Plan (12/11/2023 1:34 PM EDT): Orders: XR CHEST PA AND LATERAL; Future fUROsemide (LASIX) 20 mg Oral Tablet; Take 1 Tablet by mouth daily. BASIC METABOLIC PANEL; Future Right groin mass 08/18/2022 Primary osteoarthritis of left knee 04/28/2022 Status post angioplasty with stent 02/16/2022 Angina of effort 02/09/2022 Heart murmur 07/08/2021 Primary osteoarthritis, right shoulder Encounter for pre-operative cardiovascular clear ance 07/22/2020 Osteoarthritis of right shoulder 07/13/2020 Ventricular bigeminy 06/23/2020 Mass of right parotid gland 12/03/2019 Transient ischemic attack, anterior circulation, acute 12/02/2019 Intracranial atherosclerosis 12/02/2019 RUE weakness 12/01/2019 Occlusion of left vertebral artery 12/01/2019 Obstructive sleep apnea syndrome 05/09/2019 BPH with obstruction/lower urinary tract symptom s 05/09/2019 OAB (overactive bladder) 05/09/2019 Dizziness 02/20/2019 Lightheadedness 02/20/2019 Hypotension 02/20/2019 Elevated lipoprotein(a) 08/01/2018 Overview (08/01/2018): Followed by Endocrinology. Chronic pain syndrome 11/06/2017 Spondylosis of lumbar region without myelopathy or radiculopathy 11/06/2017 Degenerative disc disease, lumbar 10/15/2017 Acute pyelonephritis 09/20/2017 Elevated troponin 09/20/2017 SOB (shortness of breath) 09/20/2017 Uncontrolled type 2 diabetes mellitus with hyper glycemia 09/23/2014 Assessment & Plan (05/20/2024 5:05 PM EDT): Orders: HEMOGLOBIN A1C; Future Assessment & Plan (12/11/2023 1:34 PM EDT): Goal A1C: < 6.5 and TIR >70% - Last A1c - 12.5 - 08/30/2023 - at goal Compliance: - compliant with diet and medications Home Glucose Monitoring: - continuous glucose monitor (CGM) Retinopathy Screening: - patient has no know retinopathy and was reminded to complete a retinal exam every 2 years Nephropathy Assessment: - microalbumin screening completed in the past 12 months Foot Assessment: - no ulcers or pre-ulcers Diet Advice: - discussed improving diet by reducing carbohydrates at today's visit Statin Therapy: - cannot take statins due to other medical condition or medication Medication Management: - medication management decisions took place at today's visit (see orders) Orders: glimepiride (AMARYL) 4 mg Oral Tablet; TAKE 1 TABLET BY MOUTH TWICE DAILY BEFORE MEAL(S) BASIC METABOLIC PANEL; Future HEMOGLOBIN A1C; Future Vitamin D deficiency 08/20/2014 Overview (08/01/2018): Followed by Endocrinology. Vitamin B12 deficiency 08/20/2014 S/P CABG x 3 08/25/2013 Overview (08/28/2013): 08/25/13 CAD (coronary artery disease) 08/24/2013 Chest pain 08/19/2013 Ischemic heart disease 08/19/2013 Hyperlipidemia Assessment & Plan (05/20/2024 5:05 PM EDT): Stable on statin Orders: LIPID PANEL REFLEX; Future GERD (gastroesophageal reflux disease) Assessment & Plan (12/11/2023 1:34 PM EDT): Orders: pantoprazole (PROTONIX) 40 mg Oral Tablet, Delayed Release (E.C.); Take 1 Tablet by mouth 2 times daily. BASIC METABOLIC PANEL; Future Dysuria Benign prostatic hyperplasia with urinary freque ncy Acute prostatitis Yeast dermatitis of penis Esophageal dysphagia Eosinophilic esophagitis Nocturia Incomplete emptying of bladder Resolved Problems Problem Noted Date Diagnosed Date Resolved Date Class 2 severe obesity due t o excess calories with serious comorbidity and body mass index (BMI) of 35.0 to 35.9 in adult 11/19/2018 2 Sacroiliitis 11/06/2017 02/14/2021 Dyslipidemia associated with type 2 diabetes mellitus 08/20/2014 04/08/2024 Overview (08/01/2018): Followed by Endocrinology. Postoperative anemia due to acute blood loss 4 09/23/2015 DM (diabetes mellitus), type 2, uncontrolled 0 09/23/2014 Overview (08/28/2013): Titrating lantus and novolog. HTN (hypertension) 02/12/2010 0 Immunizations Immunization Administration Dates Next Due Influenza High Dose 01/25/2019 Tdap 10/26/2017 Family History Medical History Relation Name Comments Back Problems Brother Cancer Father Lung Cancer Cataracts Father Cancer Mother Lymph Node Canc er No Known Problems Sister Amblyopia Neg Hx Blindness Neg Hx Glaucoma Neg Hx Macular Degen Neg Hx Retinal Detachment Neg Hx Strabismus Neg Hx Relation Name Status Comments Brother Alive (1) Brother Father Due to Cancer Mother Due to Cancer Sister Social History Smoking Status as of 09/18/2024 Tobacco Use Types Packs/Day Years Used Date Smoking Tobacco: Never Assessed [facility] Utilities Answer Date Recorded In the [...] Date Recorded PHQ-2 Total Score 0 01/01/2024 [facility] [facility] - Occupational Stress [...] things needed for daily living? No 07/24/2024 [facility] IP Transportation Answer D ate Recorded [...] on file Sexual Orientation Not on file Last Filed Vital Signs Vital Sign Reading Time Taken Comments Blood Pressure 150/80 07/18/2024 10:40 AM EDT Pulse 80 07/18/2024 10:40 AM EDT Temperature 37.2 C (99 F) 06/16/2024 3:26 PM EDT Respiratory Rate 18 01/14/2024 9:33 AM EST Oxygen Saturation 96% 06/16/2024 3:26 PM EDT Inhaled Oxygen Concentration - - Weight 112.2 kg (247 lb 6.4 oz) 025 10:40 AM EDT Height 175.3 cm (5' 9 ) 07/18/2024 10:4 0 AM EDT Body Mass Index 36.53 07/18/2024 10:40 AM EDT Plan of Treatment Upcoming Encounters Date Type Department Care Team (Late st Contact Info) Description 11/18/2024 10:45 AM EDT Office Visit [facility] [address] [place], [place] [id number] Sapphire Munguia MD [address] [place], [place] [id number] 01/02/2025 10:45 AM EDT Office Visit [facility] [address] [place] [address] Abel Hernandez MD [address] [facility] [place] [address] Medical Devices Implanted Type Area Herbarium Curator Device Identifier Shelf Expiration Date Model / Serial / Lot Stent Coronary System 4.00 Mm X 18 Mm Xience [employer] - [id number] Implanted:Qty: 1 on 02/16/2022 by Sapphire Munguia MD at [facility] N/A: [employer] [facility] DEV [id number] 08/22/2023 [id number] Procedures Procedure Name Priority Date/Time Associated Diagnosis Comments ALANINE AMINOTRANSFERASE Routine 07/18/2024 11:32 AM EDT Stage 3a chronic kidney disease (HCC) ASPARTATE AMINOTRANSFERASE Routine 07/18/2024 11:32 AM EDT Stage 3a chronic kidney disease (HCC) PROTEIN TOTAL-BLOOD Routine 07/18/2024 11:32 AM EDT Stage 3a chronic kidney disease (HCC) ALKALINE PHOSPHATASE Routine 07/18/2024 11:32 AM EDT Stage 3a chronic kidney disease (HCC) BILIRUBIN TOTAL Routine 07/18/2024 11:32 AM EDT Stage 3a chronic kidney disease (HCC) BILIRUBIN DIRECT Routine 07/18/2024 11:32 AM EDT Stage 3a chronic kidney disease (HCC) MICROALBUMIN/CREATININ E RATIO URINE Routine 07/18/2024 11:32 AM EDT Stage 3a chronic kidney disease (HCC) PARATHYROID HORMONE INTACT Routine 07/18/2024 11:32 AM EDT Chronic kidney disease-mineral and bone disorder PARATHYROID HORMONE INTACT Routine 07/18/2024 11:32 AM EDT Stage 3a chronic kidney disease (HCC) PROTEIN/CREATININE RATIO URINE Routine 07/18/2024 11:32 AM EDT Stage 3a chronic kidney disease (HCC) VITAMIN D 25 HYDROXY Routine 07/18/2024 11:32 AM EDT Vitamin D deficiency RENAL FUNCTION PANEL Routine 07/18/2024 11:32 AM EDT Stage 3a chronic kidney disease (HCC) URINALYSIS Routine 07/18/2024 11:32 AM EDT Stage 3a chronic kidney disease (HCC) XR CHEST PA AND LATERAL Routine 02/13/2024 2:26 PM EST Fluid retention in legs CHF (congestive heart failure), NYHA class I, acute on chronic, combined (HCC) Acute on chronic systolic congestive heart failure (HCC) BASIC METABOLIC PANEL Routine 02/11/2024 8:32 AM EST CHF (congestive heart failure), NYHA class I, acute on chronic, combined (HCC) GLUCOSE METER POC Routine 01/03/2024 7:51 AM EDT ECG AND WAVEFORMS - TELEMETRY Routine 01/03/2024 7:18 AM EDT CBC Early AM 01/03/2024 6:05 AM EDT BASIC METABOLIC PANEL Early AM 01/03/2024 6:05 AM EDT ECG AND WAVEFORMS - TELEMETRY Routine 01/03/2024 4:35 AM EDT ECG AND WAVEFORMS - TELEMETRY Routine 01/03/2024 4:28 AM EDT ECG AND WAVEFORMS - TELEMETRY Routine 01/02/2024 7:23 PM EDT GLUCOSE METER POC Routine 01/02/2024 3:39 PM EDT GLUCOSE METER POC Routine 01/02/2024 11:28 AM EDT SCANNED EKG 01/02/2024 8:36 AM EDT GLUCOSE METER POC Routine 01/02/2024 7:25 AM EDT ECG AND WAVEFORMS - TELEMETRY Routine 01/02/2024 7:02 AM EDT ECG AND WAVEFORMS - TELEMETRY Routine 01/02/2024 4:36 AM EDT CBC Early AM 01/02/2024 4:25 AM EDT BASIC METABOLIC PANEL Early AM 01/02/2024 4:25 AM EDT GLUCOSE METER POC Routine 01/01/2024 8:19 PM EDT ECG AND WAVEFORMS - TELEMETRY Routine 01/01/2024 7:12 PM EDT GLUCOSE METER POC Routine 01/01/2024 4:20 PM EDT GLUCOSE METER POC Routine 01/01/2024 12:02 PM EDT GLUCOSE METER POC Routine 01/01/2024 7:47 AM EDT ECG AND WAVEFORMS - TELEMETRY Routine 01/01/2024 7:21 AM EDT GLUCOSE METER POC Routine 01/01/2024 5:48 AM EDT CBC Early AM 01/01/2024 5:32 AM EDT BASIC METABOLIC PANEL Early AM 01/01/2024 5:32 AM EDT GLUCOSE METER POC Routine 12/31/2023 10:42 PM EDT ADMIT Routine 12/31/2023 9:48 PM EDT ECG AND WAVEFORMS - TELEMETRY Routine 12/31/2023 8:03 PM EDT ECG AND WAVEFORMS - TELEMETRY Routine 12/31/2023 4:31 PM EDT ADMIT Routine 12/31/2023 3:52 PM EDT TROPONIN-T HIGH SENSITIVITY 2HR Timed 12/31/2023 2:49 PM EDT ADMIT STAT 12/31/2023 2:23 PM EDT XR CHEST AP PORTABLE STAT 12/31/2023 1:44 PM EDT TROPONIN-T HIGH SENSITIVITY BASELINE W/ REFLEX STAT 12/31/2023 12:55 PM EDT BASIC METABOLIC PANEL STAT 12/31/2023 12:55 PM EDT CBC STAT 12/31/2023 12:55 PM EDT NT PROBNP STAT 12/31/2023 12:55 PM EDT EK EKG 12 LEAD STAT 12/31/2023 12:24 PM EDT EMG Routine 12/24/2023 Numbness and tingling of left arm and leg Numbness and tingling of right arm and leg Generalized osteoarthritis of multiple sites HEMOGLOBIN A1C Routine 12/12/2023 2:26 PM EDT Uncontrolled type 2 diabetes mellitus with hyperglycemia (HCC) BASIC METABOLIC PANEL Routine 12/12/2023 2:26 PM EDT Uncontrolled type 2 diabetes mellitus with hyperglycemia (HCC) Gastroesophageal reflux disease with esophagitis, unspecified whether hemorrhage CHF (congestive heart failure), NYHA class I, acute on chronic, combined (HCC) XR CHEST PA AND LATERAL Routine 12/11/2023 4:00 PM EDT CHF (congestive heart failure), NYHA class I, acute on chronic, combined (HCC) XR CERVICAL SPINE AP LATERAL ODONTOID AND OBLIQUE Routine 11/28/2023 2:06 PM EDT Numbness and tingling of left arm and leg Numbness and tingling of right arm and leg Generalized osteoarthritis of multiple sites GLUCOSE METER POC Routine 11/01/2023 10:59 AM EDT ECG AND WAVEFORMS - TELEMETRY Routine 11/01/2023 7:00 AM EDT LIPID SCREEN Early AM 11/01/2023 6:59 AM EDT BASIC METABOLIC PANEL Early AM 11/01/2023 6:59 AM EDT GLUCOSE METER POC Routine 11/01/2023 6:43 AM EDT ECG AND WAVEFORMS - TELEMETRY Routine 10/31/2023 8:07 PM EDT GLUCOSE METER POC Routine 10/31/2023 5:44 PM EDT EC ECHOCARDIOGRAM LIMITED Routine 10/31/2023 4:51 PM EDT ECG AND WAVEFORMS - TELEMETRY Routine 10/31/2023 4:47 PM EDT EC ECHOCARDIOGRAM COMPLETE W DOPPLER AND COLOR FLOW MAPPING STAT 10/31/2023 3:19 PM EDT EK EKG 12 LEAD STAT 10/31/2023 3:10 PM EDT CARDIAC PROCEDURE Routine 10/31/2023 3:00 PM EDT Coronary artery disease due to calcified coronary lesion Abnormal coronary angiogram CARDIAC PROCEDURE Routine 10/31/2023 3:00 PM EDT Coronary artery disease due to calcified coronary lesion Abnormal coronary angiogram ACTIVATED CLOTTING TIME LR POC Routine 10/31/2023 2:45 PM EDT ACTIVATED CLOTTING TIME LR POC Routine 10/31/2023 2:27 PM EDT ACTIVATED CLOTTING TIME LR POC Routine 10/31/2023 1:58 PM EDT ACTIVATED CLOTTING TIME LR POC Routine 10/31/2023 1:40 PM EDT ADMIT Routine 10/31/2023 1:24 PM EDT COLD STRIP ROLLER HEMODYNAMIC WAVEFORMS Routine 10/31/2023 1:11 PM EDT PT / INR Routine 10/30/2023 8:50 AM EDT BASIC METABOLIC PANEL Routine 10/30/2023 8:50 AM EDT CBC WITH DIFF Routine 10/30/2023 8:50 AM EDT CARDIAC PROCEDURE Routine 10/01/2023 9:35 AM EDT Other forms of angina pectoris (HCC) SOB (shortness of breath) ASHD (arteriosclerotic heart disease) LEFT VENTRICULOGRAM Routine 10/01/2023 9:35 AM EDT Other forms of angina pectoris (HCC) SOB (shortness of breath) ASHD (arteriosclerotic heart disease) CARDIAC PROCEDURE Routine 10/01/2023 9:35 AM EDT Other forms of angina pectoris (HCC) SOB (shortness of breath) ASHD (arteriosclerotic heart disease) CARDIAC PROCEDURE Routine 10/01/2023 9:35 AM EDT Other forms of angina pectoris (HCC) SOB (shortness of breath) ASHD (arteriosclerotic heart disease) COLD STRIP ROLLER HEMODYNAMIC WAVEFORMS Routine 10/01/2023 8:48 AM EDT PT / INR Routine 09/29/2023 9:29 AM EDT Dyslipidemia associated with type 2 diabetes mellitus (HCC) 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, unspecified vessel or lesion type BASIC METABOLIC PANEL Routine 09/29/2023 9:29 AM EDT Dyslipidemia associated with type 2 diabetes mellitus (HCC) 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, unspecified vessel or lesion type CBC Routine 09/29/2023 9:29 AM EDT Dyslipidemia associated with type 2 diabetes mellitus (HCC) 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, unspecified vessel or lesion type XR LUMBAR SPINE AP LATERAL FLEXION AND EXTENSION Routine 09/18/2023 10:24 AM EDT DDD (degenerative disc disease), lumbar US THYROID Routine 09/17/2023 1:30 PM EDT Thyroid nodule PHOSPHORUS LEVEL Routine 08/30/2023 1:59 PM EDT Stage 3a chronic kidney disease (HCC) 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) PARATHYROID HORMONE INTACT Routine 08/30/2023 1:59 PM EDT HTN (hypertension), benign VITAMIN D 25 HYDROXY Routine 08/30/2023 1:59 PM EDT HTN (hypertension), benign PROTEIN/CREATININE RATIO URINE Routine 08/30/2023 1:59 PM EDT Stage 3a chronic kidney disease (HCC) 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) MICROALBUMIN/CREATININ E RATIO URINE Routine 08/30/2023 1:59 PM EDT Stage 3a chronic kidney disease (HCC) 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) COMPREHENSIVE METABOLIC PANEL Routine 08/30/2023 1:59 PM EDT Uncontrolled type 2 diabetes mellitus with hyperglycemia (HCC) HEMOGLOBIN A1C Routine 08/30/2023 1:59 PM EDT Uncontrolled type 2 diabetes mellitus with hyperglycemia (HCC) COMPREHENSIVE METABOLIC PANEL Routine 08/17/2023 10:22 AM EDT Uncontrolled type 2 diabetes mellitus with hyperglycemia (HCC) Stage 3 chronic kidney disease, unspecified whether stage 3a or 3b CKD (HCC) Muscle cramps HEMOGLOBIN A1C Routine 08/17/2023 10:22 AM EDT Uncontrolled type 2 diabetes mellitus with hyperglycemia (HCC) HM DIABETES EYE EXAM Routine 08/15/2023 DIABETIC EYE EXAM Routine 08/15/2023 ALANINE AMINOTRANSFERASE Routine 08/13/2023 3:06 PM EDT Stage 3b chronic kidney disease (HCC) HTN (hypertension), benign Edema due to hypervolemia ASPARTATE AMINOTRANSFERASE Routine 08/13/2023 3:06 PM EDT Stage 3b chronic kidney disease (HCC) HTN (hypertension), benign Edema due to hypervolemia PROTEIN TOTAL-BLOOD Routine 08/13/2023 3:06 PM EDT Stage 3b chronic kidney disease (HCC) HTN (hypertension), benign Edema due to hypervolemia ALKALINE PHOSPHATASE Routine 08/13/2023 3:06 PM EDT Stage 3b chronic kidney disease (HCC) HTN (hypertension), benign Edema due to hypervolemia BILIRUBIN TOTAL Routine 08/13/2023 3:06 PM EDT Stage 3b chronic kidney disease (HCC) HTN (hypertension), benign Edema due to hypervolemia BILIRUBIN DIRECT Routine 08/13/2023 3:06 PM EDT Stage 3b chronic kidney disease (HCC) HTN (hypertension), benign Edema due to hypervolemia URINALYSIS Routine 08/13/2023 3:06 PM EDT Stage 3b chronic kidney disease (HCC) HTN (hypertension), benign PARATHYROID HORMONE INTACT Routine 08/13/2023 3:06 PM EDT 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) VITAMIN D 25 HYDROXY Routine 08/13/2023 3:06 PM EDT 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) Edema due to hypervolemia RENAL FUNCTION PANEL Routine 08/13/2023 3:06 PM EDT Stage 3b chronic kidney disease (HCC) Edema due to hypervolemia PROTEIN/CREATININE RATIO URINE Routine 08/13/2023 3:06 PM EDT Stage 3b chronic kidney disease (HCC) Edema due to hypervolemia MICROALBUMIN/CREATININ E RATIO URINE Routine 08/13/2023 3:06 PM EDT Stage 3b chronic kidney disease (HCC) Edema due to hypervolemia NM MYOCARDIAL PERFUSION SPECT STRESS AND REST Routine 06/27/2023 2:47 PM EDT SOB (shortness of breath) on exertion ST STRESS TEST LEXISCAN Routine 06/27/2023 2:22 PM EDT SOB (shortness of breath) on exertion TROPONIN-T HIGH SENSITIVITY 2HR Timed 06/07/2023 11:[address] ANGIOGRAM CHEST ABDOMEN W CONTRAST STAT 06/07/2023 10:48 PM EDT D-DIMER STAT 06/07/2023 9:49 PM EDT TROPONIN-T HIGH SENSITIVITY BASELINE W/ REFLEX STAT 06/07/2023 9:49 PM EDT COMPREHENSIVE METABOLIC PANEL STAT 06/07/2023 9:49 PM EDT CBC STAT 06/07/2023 9:49 PM EDT EK EKG 12 LEAD STAT 06/07/2023 9:30 PM EDT US RENAL AND BLADDER Routine 06/06/2023 4:53 PM EDT Stage 3b chronic kidney disease (HCC) POCT URINALYSIS DIPSTICK Routine 06/04/2023 4:06 PM EDT Stage 3b chronic kidney disease (HCC) CBC WITH DIFF Routine 05/13/2023 10:49 AM EST Irritable bowel syndrome with diarrhea Left lower quadrant abdominal pain CHF (congestive heart failure), NYHA class I, acute on chronic, combined (HCC) Acute right-sided congestive heart failure (HCC) Type 2 diabetes mellitus with diabetic peripheral angiopathy without gangrene, without long-term current use of insulin (HCC) Class 2 severe obesity due to excess calories with serious comorbidity and body mass index (BMI) of 35.0 to 35.9 in adult (HCC) Dyslipidemia associated with type 2 diabetes mellitus (HCC) HEPATIC FUNCTION PANEL Routine 10:49 AM EST Irritable bowel syndrome with diarrhea LIPASE LEVEL Routine 05/13/2023 10:49 AM EST Irritable bowel syndrome with diarrhea BASIC METABOLIC PANEL Routine 05/13/2023 10:49 AM EST Mixed hyperlipidemia Congestive heart failure, unspecified HF chronicity, unspecified heart failure type (HCC) THYROID STIMULATING HORMONE Routine 02/19/2023 8:59 AM EST Dyslipidemia associated with type 2 diabetes mellitus (HCC) Uncontrolled type 2 diabetes mellitus with hyperglycemia (HCC) Pure hypercholesterolemia LIPID SCREEN Routine 02/19/2023 8:59 AM EST Dyslipidemia associated with type 2 diabetes mellitus (HCC) Uncontrolled type 2 diabetes mellitus with hyperglycemia (HCC) Pure hypercholesterolemia CBC WITH DIFF Routine 02/19/2023 8:59 AM EST Dyslipidemia associated with type 2 diabetes mellitus (HCC) Uncontrolled type 2 diabetes mellitus with hyperglycemia (HCC) Pure hypercholesterolemia COMPREHENSIVE METABOLIC PANEL Routine 02/19/2023 8:59 AM EST Dyslipidemia associated with type 2 diabetes mellitus (HCC) Uncontrolled type 2 diabetes mellitus with hyperglycemia (HCC) Pure hypercholesterolemia MICROALBUMIN/CREATININ E RATIO URINE Routine 02/19/2023 8:59 AM EST Dyslipidemia associated with type 2 diabetes mellitus (HCC) HEMOGLOBIN A1C Routine 02/19/2023 8:59 AM EST Dyslipidemia associated with type 2 diabetes mellitus (HCC) BASIC METABOLIC PANEL Routine 10/13/2022 11:45 AM EDT Serum potassium elevated US THYROID Routine 10/04/2022 9:16 AM EDT Thyroid mass OCT, RETINA - OU - BOTH EYES Routine 10/03/2022 3:40 PM EDT 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 T4, FREE (THYROXINE) Routine 10/03/2022 1:57 PM EDT Thyroid mass THYROID STIMULATING HORMONE Routine 10/03/2022 1:57 PM EDT Thyroid mass BASIC METABOLIC PANEL Routine 10/03/2022 1:57 PM EDT Thyroid mass POCT GLYCATED HEMOGLOBIN, TOTAL Routine 09/28/2022 12:34 PM EDT Uncontrolled type 2 diabetes mellitus with hyperglycemia (HCC) POCT VERONA STREP A+ Routine 09/28/2022 12:33 PM EDT Sore throat POCT VERONA FLU+SARS ANTIGEN Routine 09/28/2022 12:33 PM EDT Sore throat Runny nose POCT VERONA INFLUENZA A/B Routine 09/28/2022 11:12 AM EDT Sore throat Runny nose VITAMIN D 25 HYDROXY Routine 09/23/2022 11:56 AM EDT Muscle cramps Encounter for vitamin deficiency screening Vitamin D deficiency VITAMIN B12/ FOLIC ACID Routine 09/23/2022 11:56 AM EDT Muscle cramps MAGNESIUM LEVEL Routine 09/23/2022 11:56 AM EDT Muscle cramps HEPATIC FUNCTION PANEL Routine 11:56 AM EDT Mixed hyperlipidemia BASIC METABOLIC PANEL Routine 09/23/2022 11:56 AM EDT Mixed hyperlipidemia CBC Routine 09/23/2022 11:56 AM EDT Mixed hyperlipidemia LIPID PANEL REFLEX Routine 09/23/2022 11:56 AM EDT Mixed hyperlipidemia HOME HEALTH ORDERS (FACE TO FACE ENCOUNTER) Routine 08/24/2022 2:02 PM EDT GLUCOSE METER POC Routine 08/24/2022 11:24 AM EDT BASIC METABOLIC PANEL Routine 08/24/2022 10:00 AM EDT CBC Early AM 08/24/2022 10:00 AM EDT GLUCOSE METER POC Routine 08/24/2022 8:09 AM EDT ECG AND WAVEFORMS - TELEMETRY Routine 08/24/2022 7:08 AM EDT GLUCOSE METER POC Routine 08/23/2022 8:11 PM EDT ECG AND WAVEFORMS - TELEMETRY Routine 08/23/2022 7:00 PM EDT GLUCOSE METER POC Routine 08/23/2022 4:40 PM EDT GLUCOSE METER POC Routine 08/23/2022 12:36 PM EDT BASIC METABOLIC PANEL Routine 08/23/2022 9:31 AM EDT GLUCOSE METER POC Routine 08/23/2022 7:38 AM EDT CBC WITH DIFF Early AM 08/23/2022 6:07 AM EDT ECG AND WAVEFORMS - TELEMETRY Routine 08/23/2022 6:02 AM EDT ECG AND WAVEFORMS - TELEMETRY Routine 08/23/2022 4:18 AM EDT ECG AND WAVEFORMS - TELEMETRY Routine 08/23/2022 4:10 AM EDT GLUCOSE METER POC Routine 08/22/2022 8:16 PM EDT ECG AND WAVEFORMS - TELEMETRY Routine 08/22/2022 7:00 PM EDT GLUCOSE METER POC Routine 08/22/2022 4:38 PM EDT GLUCOSE METER POC Routine 08/22/2022 11:11 AM EDT GLUCOSE METER POC Routine 08/22/2022 8:03 AM EDT ECG AND WAVEFORMS - TELEMETRY Routine 08/22/2022 6:59 AM EDT CBC Early AM 08/22/2022 5:41 AM EDT BASIC METABOLIC PANEL Routine 08/22/2022 5:41 AM EDT GLUCOSE METER POC Routine 08/21/2022 8:13 PM EDT ECG AND WAVEFORMS - TELEMETRY Routine 08/21/2022 7:00 PM EDT ECG AND WAVEFORMS - TELEMETRY Routine 08/21/2022 7:00 PM EDT GLUCOSE METER POC Routine 08/21/2022 4:57 PM EDT WOUND CULTURE (STAIN INCLUDED) Routine 08/21/2022 4:23 PM EDT GLUCOSE METER POC Routine 08/21/2022 11:24 AM EDT VA US EVALUATE PSEUDOANEURYSM RIGHT Routine 08/21/2022 9:09 AM EDT SCANNED EKG 08/21/2022 8:33 AM EDT GLUCOSE METER POC Routine 08/21/2022 7:09 AM EDT ECG AND WAVEFORMS - TELEMETRY Routine 08/21/2022 7:02 AM EDT BASIC METABOLIC PANEL Early AM 08/21/2022 7:01 AM EDT CBC WITH DIFF Early AM 08/21/2022 7:01 AM EDT GLUCOSE METER POC Routine 08/20/2022 8:35 PM EDT ECG AND WAVEFORMS - TELEMETRY Routine 08/20/2022 7:32 PM EDT GLUCOSE METER POC Routine 08/20/2022 4:45 PM EDT GLUCOSE METER POC Routine 08/20/2022 11:00 AM EDT GLUCOSE METER POC Routine 08/20/2022 7:23 AM EDT ECG AND WAVEFORMS - TELEMETRY Routine 08/20/2022 7:00 AM EDT BASIC METABOLIC PANEL Early AM 08/20/2022 4:33 AM EDT CBC WITH DIFF Early AM 08/20/2022 4:33 AM EDT GLUCOSE METER POC Routine 08/19/2022 8:03 PM EDT ECG AND WAVEFORMS - TELEMETRY Routine 08/19/2022 7:00 PM EDT GLUCOSE METER POC Routine 08/19/2022 4:52 PM EDT EK EKG 12 LEAD Routine 08/19/2022 4:06 PM EDT ECG AND WAVEFORMS - TELEMETRY Routine 08/19/2022 3:38 PM EDT ECG AND WAVEFORMS - TELEMETRY Routine 08/19/2022 3:38 PM EDT EC ECHOCARDIOGRAM 2D M MODE COMPLETE W CONTRAST Routine 08/19/2022 3:33 PM EDT GLUCOSE METER POC Routine 08/19/2022 12:05 PM EDT GLUCOSE METER POC Routine 08/19/2022 7:35 AM EDT ECG AND WAVEFORMS - TELEMETRY Routine 08/19/2022 7:00 AM EDT BASIC METABOLIC PANEL Early AM 08/19/2022 5:11 AM EDT CBC WITH DIFF Early AM 08/19/2022 5:11 AM EDT PROCALCITONIN Routine 08/19/2022 5:11 AM EDT ECG AND WAVEFORMS - TELEMETRY Routine 08/19/2022 12:23 AM EDT IP CONSULT TO GENERAL SURGERY Routine 08/18/2022 11:43 PM EDT Procedure Note - John Curtis MD - 08/19/2022 8:46 AM EDTThis note is in progress. [facility] Surgical Consultation Note Admit Date: 08/18/2022 LOS: 1 day Body mass index is 35.65 kg/m . IMPRESSION Active Hospital Problems Diagnosis *CHF (congestive heart failure), NYHA class I, acute on chronic,combined (HCC) Right groin mass Obstructive sleep apnea syndrome BPH with obstruction/lower urinary tract symptoms Uncontrolled type 2 diabetes mellitus with hyperglycemia ([facility]) S/P CABG x 3 Hyperlipidemia GERD (gastroesophageal reflux disease) PLAN 1. No plans for drainage or surgery 2. Conservative management for now. Drainage for infection or ongoingbleeding 3. Patient states he had a duplex study excluding pseudoaneurysm. May needto repeat. Discussed with patient M Alfredo Curtis MD HPI: Asked to see this 66 y.o. year-old male for evaluation of rightinguinal hematoma. Patient underwent cath through right femoral approachon Sunday. Presents with mass in right inguinal area associated with painand tenderness. CT images suggest hematoma. ALLERGIES Allergies Allergen Reactions Insulin Aspart Other (See Comments) Hypersensitivity; and Photosensitivity. Per pt Jardiance [Empagliflozin] Other (See Comments) Got a blood infection Milk Shortness Of Breath Can have butter (had issue with not able to get green beans, chickennoodle soup, but able to have) CURRENT MEDICATIONS Current Facility-Administered Medications: acetaminophen (TYLENOL) tablet 650 mg, 650 mg, Oral, Q4H PRN, Rodriguez,Harjodh, DO carvediloL (COREG) tablet 6.25 mg, 6.25 mg, Oral, BID, Rodriguez,Harjodh, DO, 6.25 mg at 08/19/22 0814 cefTRIAXone in dextrose (ROCEPHIN) 2 gram/50 mL IVPB 2 g, 2 g,Intravenous, Daily, Rodriguez, Harjodh, DO, Last Rate: 100 mL/hr at 9, 2 g at 08/19/22 0809 dextrose 50 % solution 25 mL, 25 mL, Intravenous, PRN, Rodriguez,Harjodh, DO fUROsemide (LASix) injection 40 mg, 40 mg, Intravenous, BID Diuretic,Rodriguez, Harjodh, DO, 40 mg at 08/19/22 0813 glucagon (GLUCAGEN) injection 1 mg, 1 mg, Intramuscular, PRN ANDsterile water injection 1 mL, 1 mL, Injection, PRN, Rodriguez, Harjodh, DO hydroCHLOROthiazide (HYDRODIURIL) tablet 25 mg, 25 mg, Oral, Daily,Rodriguez, Harjodh, DO, 25 mg at 08/19/22 0814 insulin aspart U-100 (NovoLOG) injection 1-10 Units, 1-10 Units,Subcutaneous, QID WM, Rodriguez, Harjodh, DO isosorbide mononitrate (IMDUR) CR tablet 60 mg, 60 mg, Oral, QAM,Rodriguez, Harjodh, DO, 60 mg at 08/19/22 0814 lisinopriL (PRINIVIL;ZESTril) tablet 5 mg, 5 mg, Oral, Daily, Rodriguez,Katiedh, DO, 5 mg at 08/19/22 0814 morphine injection 2 mg, 2 mg, Intravenous, Q4H PRN OR morphineinjection 3-4 mg, 3-4 mg, Intravenous, Q4H PRN, Rodriguez, Luchojodh, DO nitroGLYCERIN (NITROSTAT) SL tablet 0.4 mg, 0.4 mg, Sublingual, Q5 MinPRN, Rodriguez, Harjodh, DO ondansetron (ZOFRAN) tablet 4 mg, 4 mg, Oral, Q4H PRN ORondansetron (ZOFRAN) injection 4 mg, 4 mg, Intravenous, Q4H PRN, Rodriguez,Harjodh, DO pantoprazole (PROTONIX) tablet 40 mg, 40 mg, Oral, BID, Rodriguez,Luchojodh, DO, 40 mg at 08/19/22 0814 polyethylene glycol (GLYCOLAX, MIRALAX) packet 17 g, 17 g, Oral, BIDPRN, Rodriguez, Harjodh, DO rosuvastatin (CRESTOR) tablet 20 mg, 20 mg, Oral, Nightly, Rodriguez,Harjodh, DO PAST MEDICAL HISTORY Past Medical History: Diagnosis Date Allergy Arthritis Chronic cough DM (diabetes mellitus) (HCC) 02/12/2010 GERD (gastroesophageal reflux disease) H/O heart surgery Heart attack ([facility]) Heart disease High cholesterol History of chicken pox History of measles, mumps, or rubella HTN (hypertension) 02/12/2010 pt states never had HTN Hyperlipidemia Kidney stones Low testosterone RI (myocardial infarction) ([facility]) Nocturia 05/09/2019 Prostate disorder Urinary incontinence PAST SURGICAL HISTORY Past Surgical History: Procedure Laterality Date ANGIOPLASTY 1990 CARDIAC SURGERY N/A 08/25/2013 CORONARY ARTERY BYPASS GRAFTS X 3 USING BILATERAL SAPHENOUS VEIN X 2 ANDLEFT INTERNAL MAMMARY ARTERY BYPASS GRAFT X 1; Surgeon: Richard Jo MD; Location: [facility]IN OR; Service: Open Heart CORONARY PERCUTANEOUS INTERVENTION(PCI) N/A 02/16/2022 Surgeon: Sapphire Munguia MD; Location: [facility]; Service: Cardiac IR 2 LEVEL BILATERAL MEDIAL BRANCH BLOCK CERV THOR 07/08/2021 IR 2 LEVEL BILATERAL MEDIAL BRANCH BLOCK CERV THOR 07/08/2021 Carlos Langston MD [facility] IR 2 LEVEL BILATERAL MEDIAL BRANCH BLOCK LUM SAC 12/06/2017 IR 2 LEVEL BILATERAL MEDIAL BRANCH BLOCK LUM SAC 12/06/2017 [facility] 2 LEVEL BILATERAL MEDIAL BRANCH BLOCK LUM SAC 03/07/2018 IR 2 LEVEL BILATERAL MEDIAL BRANCH BLOCK LUM SAC 03/07/2018 [facility] GUIDED INJECT TRANSFORAM EPIDUR LUMB OR SACRAL SINGLE LVL 01/12/2022 IR GUIDED INJECT TRANSFORAMINAL EPIDUR LUMB OR SACRAL SINGLE LVL103/14/2021 Carlos Langston MD [facility] IR PICC INSERTION EQUAL OR > 5 YEARS 09/24/2017 IR PICC INSERTION EQUAL OR > 5 YEARS 09/24/2017 Arabella Buckley PA [facility] IR SACROILIAC JOINT INJECTION 06/24/2021 IR SACROILIAC JOINT INJECTION 06/24/2021 Carlos Langston MD [facility] ULTRASOUND GUIDED VASCULAR ACCESS 09/24/2017 IR ULTRASOUND GUIDED VASCULAR ACCESS 09/24/2017 Arabella Buckley PA FLOIR PROSTATE SURGERY N/A 11/20/2019 cystoscopy transurethral resection of the prostate; Surgeon: Ina Overton MD; Location: [facility] MAIN OR; Service: Urology TONSILLECTOMY UPPER GASTROINTESTINAL ENDOSCOPY UPPER GASTROINTESTINAL ENDOSCOPY N/A 07/17/2018 ESOPHAGOGASTRODUODENOSCOPY with savary dilation and biopsy ; Surgeon: Stevie Acosta MD; Location: [facility] ENDOSCOPY; Service:Endoscopy UPPER GASTROINTESTINAL ENDOSCOPY N/A 09/20/2018 ESOPHAGOGASTRODUODENOSCOPY with biopsy; Surgeon: Stevie Acosta MD; Location: [facility] END[facility]COPY; Service: Endoscopy SOCIAL HISTORY Social History Tobacco Use Smoking status: Never Smokeless tobacco: Never Vaping Use Vaping Use: Never used Substance Use Topics Alcohol use: No Comment: NO Drug use: No Comment: NO FAMILY HISTORY Family History Problem Relation Age of Onset Cancer Mother Lymph Node Cancer Cancer Father Lung Cancer Cataracts Father Back Problems Brother No Known Problems Sister Amblyopia Neg Hx Blindness Neg Hx Glaucoma Neg Hx Macular Degen Neg Hx Retinal Detachment Neg Hx Strabismus Neg Hx Scheduled Meds: carvediloL 6.25 mg Oral BID cefTRIAXone (ROCEPHIN) IVPB (Orderable) 2 g Intravenous Daily fUROsemide 40 mg Intravenous BID Diuretic hydroCHLOROthiazide 25 mg Oral Daily insulin aspart U-100 1-10 Units Subcutaneous QID WM isosorbide mononitrate 60 mg Oral QAM lisinopriL 5 mg Oral Daily pantoprazole 40 mg Oral BID rosuvastatin 20 mg Oral Nightly Continuous Infusions: PRN Meds:acetaminophen, dextrose, glucagon AND sterile water, morphineOR morphine, nitroGLYCERIN, ondansetron OR ondansetron,polyethylene glycol ROS A comprehensive review of systems was negative except for: right inguinaldiscomfort Patient Vitals for the past 24 hrs: BP Temp Temp src Pulse Resp SpO2 Height Weight 08/19/22 0811 132/81 97.4 F (36.3 C) Axillary 84 18 97 % -- -- 08/19/22 0516 125/60 98 F (36.7 C) Oral 80 16 96 % -- -- 08/19/22 0434 -- -- -- -- -- -- -- 241 lb 6.5 oz (109.5 kg) 08/18/22 2327 144/60 98.1 F (36.7 C) Oral 88 16 97 % 5' 9 (1.753 m) 240lb 4.8 oz (109 kg) 08/18/22 2158 131/65 -- -- 83 16 96 % -- -- I/O last 3 completed shifts: In: 300 [P.O.:300] Out: 650 [Urine:650] I/O this shift: In: 240 [P.O.:240] Out: - BP 132/81 (BP Location: Right arm, Patient Position: Sitting) Pulse 84 Temp 97.4 F (36.3 C) (Axillary) Resp 18 Ht 5' 9 (1.753 m) Wt241 lb 6.5 oz (109.5 kg) SpO2 97% BMI 35.65 kg/m General appearance: alert, appears stated age and cooperative Abdomen: soft, non-tender; bowel sounds normal; no masses, noorganomegaly Skin: Skin color, texture, turgor normal. No rashes or lesions Right inguinal area: slight erythema, mass, tender, no cellulitis Labs: CBC: Lab Results Component Value Date WBC 12.6 (H) 08/19/2022 RBC 3.42 (L) 08/19/2022 HGB 10.0 (L) 08/19/2022 HCT 30.1 (L) 08/19/2022 MCV 88.0 08/19/2022 MCHC 33.2 08/19/2022 RDW 12.1 08/19/2022 PLT 305 08/19/2022 MPV 11.3 08/19/2022 BMP: Lab Results Component Value Date NA 133 (L) 08/19/2022 K 4.0 08/19/2022 CL 99 08/19/2022 CO2 24 08/19/2022 BUN 20 08/19/2022 CREATININE 1.16 08/19/2022 CALCIUM 8.9 08/19/2022 GLU 371 (H) 08/19/2022 Radiology: XR CHEST PA AND LATERAL Result Date: 08/18/2022 PA AND LATERAL CHEST X-RAY, 08/18/2022 5:22 PM CLINICAL HISTORY:-SHORTNESS OF BREATH COMPARISON: March 20, 2022 PROCEDURE COMMENTS:Frontal and lateral views of the chest. FINDINGS: Sternotomy changes withmoderate cardiac enlargement. Bilateral pulmonary vascular congestion.Lung volumes are low, resulting in crowding of the bronchovascularmarkings. LEFT lung base subsegmental atelectasis. LEFT base subsegmental atelectasis. Mild central vascular congestion. -Note: Radiology results need to be interpreted within a comprehensiveclinical context. If you have questions about the radiology report,please contact the office of the ordering clinician. CT PELVIS W CONTRAST Addendum Date: 08/18/2022 By history, this patient recently underwent cardiac catheterization. The 6cm mass at the RIGHT groin could certainly represent hematoma rather thanlymphadenopathy. Clinical follow-up to prove resolution is recommended. Result Date: 08/18/2022 CT PELVIS W CONTRAST, 08/18/2022 6:06 PM CLINICAL HISTORY:-Lymphadenopathy, groin. COMPARISON: None. PROCEDURE COMMENTS:Multidetector CT of the region of interest, per protocol. Dose 1 : CT DLPTotal : 771.5 mGycm DLP Spiral Max : 771.5 mGycm Maximum CTDI Vol : 21.2mGy FINDINGS: 6 cm diameter soft tissue mass with surrounding indurationcorrelating with the palpable abnormality in the RIGHT groin. Remainingregional lymph nodes are normal size. LEFT groin region unremarkable. Nopelvic lymphadenopathy. No abnormal fluid. Findings related to priortransurethral resection of the prostate procedure noted. 6 cm diameter soft tissue mass at the RIGHT groin correlating with thepalpable abnormality. This is suspicious for neoplasia. It could be easilyand safely biopsied under ultrasound guidance if needed. - Note: Radiologyresults need to be interpreted within a comprehensive clinical context.If you have questions about the radiology report, please contact theoffice of the ordering clinician. EK EKG 12 LEAD [place] CoTest Date:2022-08-18 Pat Name: JACKIE ABDI Department: DEPIDPatient ID: [id number] Room: Gender: MaleTechnician: Jose Manuel : [id number] By: JESSICA Brandon Order Number: [id number] MD: Sapphire MunguiaMeasurements Intervals [place] Rate:78 P: 44 OH: 169QRS: -8 QRSD: 165 T:75 QT: 405 QTc:464Interpretive Statements SINUS RHYTHM LEFT BUNDLE BRANCH BLOCKElectronically Signed On 08-18-2022 18:39:09 EDT by Sapphire Munguia IP CONSULT TO CARDIOLOGY Routine 08/18/2022 11:43 PM EDT Procedure Note - Altaf Yañez MD - 08/19/2022 8:21 AM EDTThis note is in progress. Heart & Vascular Consult Note PATIENT: Jackie Sprague : 1955 PCP: Carlos A Gross DO Primary Manager Council: Dr. Munguia Reason for consult: CHF History provided by: EMR, patient History limited by: nothing I would like to thank Dr. Rodriguez for requesting me to see your pt Chente Sprague for cardiovascular consultation. SUBJECTIVE: HPI: Jackie Sprague is a 66 y.o. male with a past medical historyincluded but not limited to coronary artery disease s/p CABG, THAI,hyperlipidemia, GERD, BPH, TOA, diabetes who was admitted on 08/18* forreports of 10 pound weight gain in ~1 week as well as right groin pain. Hedenies any lower extremity edema. He reports dyspnea in exertion since hehad his stent placed in February. He reports intermittent orthopnea. Hereports he had an angiogram done in [place] due to chest pain withreport of no intervention (unable to view records). Soon after he reportsright groin pain and swelling that is enlarging with associated erythema.He had US done as outpatient which was negative for pseudoaneurysm andfollows up CT was ordered and he was instructed to go to the ED by his PCPfor IV diuresis. He reports he is compliant with his medications. EKG: SR, LBBB Hs-Trop: 56, 52 BNP: 3373 Echo: 08/19/2021 Conclusions * Left ventricular chamber dimension is normal. * Left ventricular function is low normal with an estimated ejectionfraction of 45-50%. * Left ventricular segmental wall motion is abnormal. * The left ventricular diastolic function is consistent with stage I diastolic dysfunction (normal left atrial pressure). * Right ventricular systolic function is normal. * Estimated pulmonary artery pressure is 24 mmHg, consistent with nopulmonary hypertension. * Left atrial chamber dimension is normal. * There is trace mitral valve regurgitation. * There is trace tricuspid valve regurgitation. Cath: 02/16/2022 Coronary Findings Diagnostic Dominance: Right Left Main Dist LM lesion is 99% stenosed. The lesion is calcified. The lesion iscalcified. Left Anterior Descending Ost LAD lesion is 100% stenosed. Fills by KELLY to LAD Left Circumflex Ost Cx lesion is 99% stenosed. Fills by SVG to OM Right Coronary Artery Prox RCA lesion is 100% stenosed. Fills by SVG to RPDA KELLY Graft To Mid LAD The graft is angiographically normal. Vein Graft To Lat 1st Mrg The graft is angiographically normal. Vein Graft To RPDA Origin lesion is 80% stenosed. Conclusion Result status: Final result Dist LM lesion is 99% stenosed. Ost LAD lesion is 100% stenosed. Ost Cx lesion is 99% stenosed. Prox RCA lesion is 100% stenosed. Origin lesion is 80% stenosed. - Severe occluded [place] LAD/LCX and RCA - Patent KELLY to LAD - Patent SVG to OM - Severe proximal SVG to RPDA stenosis s/p successful PCI with REYNOLD X 1 - Normal LVEDP and normal LV systolic function Plan - ASA, plavix - Med Rx Medication @MEDSHOME@ carvediloL 6.25 mg Oral BID cefTRIAXone (ROCEPHIN) IVPB (Orderable) 2 g Intravenous Daily fUROsemide 40 mg Intravenous BID Diuretic hydroCHLOROthiazide 25 mg Oral Daily insulin aspart U-100 1-10 Units Subcutaneous QID WM isosorbide mononitrate 60 mg Oral QAM lisinopriL 5 mg Oral Daily pantoprazole 40 mg Oral BID rosuvastatin 20 mg Oral Nightly acetaminophen, dextrose, glucagon AND sterile water, morphine ORmorphine, nitroGLYCERIN, ondansetron OR ondansetron, polyethyleneglycol Allergy Allergies Allergen Reactions Insulin Aspart Other (See Comments) Hypersensitivity; and Photosensitivity. Per pt Jardiance [Empagliflozin] Other (See Comments) Got a blood infection Milk Shortness Of Breath Can have butter (had issue with not able to get green beans, chickennoodle soup, but able to have) Family History Family History Problem Relation Age of Onset Cancer Mother Lymph Node Cancer Cancer Father Lung Cancer Cataracts Father Back Problems Brother No Known Problems Sister Amblyopia Neg Hx Blindness Neg Hx Glaucoma Neg Hx Macular Degen Neg Hx Retinal Detachment Neg Hx Strabismus Neg Hx Social History Social History Tobacco Use Smoking status: Never Smokeless tobacco: Never Substance Use Topics Alcohol use: No Comment: NO Review of Systems Review of Systems Constitutional: Negative for diaphoresis, fever, malaise/fatigue andweight gain. HENT: Negative for congestion. Cardiovascular: Positive for chest pain and dyspnea on exertion. Negativefor claudication, irregular heartbeat, leg swelling, near-syncope,orthopnea, palpitations and syncope. Respiratory: Positive for cough, shortness of breath and sleepdisturbances due to breathing. Negative for wheezing. Skin: Negative for color change. Groin swelling Musculoskeletal: Negative for muscle cramps, muscle weakness and myalgias. Gastrointestinal: Positive for bloating. Negative for abdominal pain,heartburn, nausea and vomiting. Genitourinary: Negative for hematuria. Neurological: Negative for dizziness, headaches and light-headedness. Psychiatric/Behavioral: Negative for altered mental status, depression andmemory loss. OBJECTIVE: Telemetry: SR BP 132/81 (BP Location: Right arm, Patient Position: Sitting) Pulse 84 Temp 97.4 F (36.3 C) (Axillary) Resp 18 Ht 5' 9 (1.753 m) Wt241 lb 6.5 oz (109.5 kg) SpO2 97% BMI 35.65 kg/m I/O 24 hours: Intake/Output Summary (Last 24 hours) at 08/19/2022 08 Last data filed at 08/19/2022 0516 Gross per 24 hour Intake 300 ml Output 650 ml Net -350 ml NET I/O since Admission: Net IO Since Admission: -350 mL [08/19/22 0821] Physical Exam Physical Exam Constitutional: Appearance: Normal appearance. He is ill-appearing. Cardiovascular: Rate and Rhythm: Normal rate and regular rhythm. Pulses: Normal pulses. Heart sounds: Normal heart sounds. Pulmonary: Effort: Pulmonary effort is normal. Breath sounds: Normal breath sounds. Abdominal: General: Abdomen is flat. Palpations: Abdomen is soft. Musculoskeletal: General: Normal range of motion. Right lower leg: Edema present. Left lower leg: Edema present. Comments: Right groin redness and swelling Trace edema Skin: General: Skin is warm and dry. Capillary Refill: Capillary refill takes less than 2 seconds. Findings: Erythema present. Neurological: General: No focal deficit present. Mental Status: He is alert and oriented to person, place, and time. Psychiatric: Mood and Affect: Mood normal. Behavior: Behavior normal. Diagnostic tests Pertinent laboratory test have been reviewed The most recent cardiovascular [facility] werereviewed at time of consultation Labs BMP/CMP Lab Results Component Value Date NA 133 (L) 08/19/2022 K 4.0 08/19/2022 CL 99 08/19/2022 CO2 24 08/19/2022 ANIONGAP 10 08/19/2022 CALCIUM 8.9 08/19/2022 GLU 371 (H) 08/19/2022 BUN 20 08/19/2022 CREATININE 1.16 08/19/2022 Magnesium Level No results found for: MG CBC Lab Results Component Value Date WBC 12.6 (H) 08/19/2022 RBC 3.42 (L) 08/19/2022 HGB 10.0 (L) 08/19/2022 HCT 30.1 (L) 08/19/2022 MCV 88.0 08/19/2022 MCH 29.2 08/19/2022 MCHC 33.2 08/19/2022 RDW 12.1 08/19/2022 PLT 305 08/19/2022 MPV 11.3 08/19/2022 INR No results found for: INR ProBNP Lab Results Component Value Date BNP 3,373 (H) 08/18/2022 D-Dimer No results found for: DDIMER Hs-Troponin [id number] 2HR Date Value Ref Range Status 08/18/2022 52 (H) <22 ng/L Final Comment: See the website below for rule out RI care pathway, conditions otherthan AMI that can cause elevated hs cTnT, and comparison of values fromthe 4th and 5th generation Marisabel tests.[email or web address] ASSESSMENT: Active Hospital Problems Diagnosis *CHF (congestive heart failure), NYHA class I, acute on chronic,combined (HCC) Right groin mass Obstructive sleep apnea syndrome BPH with obstruction/lower urinary tract symptoms Uncontrolled type 2 diabetes mellitus with hyperglycemia ([facility]) S/P CABG x 3 Hyperlipidemia GERD (gastroesophageal reflux disease) Acute on Chronic Heart Failure -ECHO (08/19/2021) LVEF 45-50%. G1DD. Abnormal wall motion. Trace MR andTR -BNP 3373 -CXR left base subsegmental atelectasis. Mild central vascularcongestion -ECHO pending -FINGERNAIL TECHNICIAN lasix 20 mg BID, coreg 6.25 mg BID, lisinopril 5 mg -Current diuresis with lasix 40 mg BID -Strict I/Os, daily (standing) weights, fluid and sodium restriction,daily BMPs Right Groin Mass / ?Cellulitis of Right Groin -Reportedly occurred after C in [place] - (08/14/2022) no evidence of pseudoaneurysm. Enlarge lymph node -CT (08/18/2022) 6 cm diameter soft tissue mass suspicious for neoplasia -Noted Leukocytosis -Surgery consulted - no plans for intervention Coronary Artery Disease -s/p CABG CABG 2013 KELLY to LAD, SVG to RPDA and SVG to OM -[facility] (02/16/2022) severe occluded [place] LAD/LCx and RCA. Patent KELLY toLAD. Patent SVG to OM. Severe proximal SVG to RPDA stenosis s/p PCI withDES -Reports recently C in [place] with no intervention (unable to viewrecords) -FINGERNAIL TECHNICIAN bASA, plavix 75 mg, coreg 6.25 mg BID, imdur 60 mg, crestor 20 mg -Plavix and bASA on hold for possible intervention - would recommendresuming with REYNOLD ~6 months Diabetes -A1c 7.5 Hyperlipidemia -FINGERNAIL TECHNICIAN statin -Lipid panel pending Hypertension -Coreg 6.25 mg BID, HCTZ 25 mg, lasix 20 mg BID, HCTZ 25 mg, imdur 60 mg,lisinopril 5 mg GERD -PPI PLAN: ECHO pending IV diuresis Strict I/Os, daily (standing) weights, fluid and sodium restriction,daily BMPs Would recommend resuming at least bASA with REYNOLD ~6 months ago Further input from Dr. Yañez Thank you for the consult. We will follow with you. Mirtha Gonzalez, GRADUATE TEACHER EDUCATION 08/19/2022 Consulting Physician Altaf Yañez MD Reason for Cardiology consult CHF, Rt grain mass Chief Complaint: No chief complaint on file. HPI 66 y.o. male Seen in consultation History obtained in conjunction with FORESTRY EXTENSION SPECIALIST as follows... Jackie Sprague is a 66 y.o. male with a past medical historyincluded but not limited to coronary artery disease s/p CABG, THAI,hyperlipidemia, GERD, BPH, TOA, diabetes who was admitted on 08/18* forreports of 10 pound weight gain in ~1 week as well as right groin pain. Hedenies any lower extremity edema. He reports dyspnea in exertion since hehad his stent placed in February. He reports intermittent orthopnea. Hereports he had [place] angiogram done in [place] due to chest pain withreport of no intervention (unable to view records). Soon after he reportsright groin pain and swelling that is enlarging with associated erythema.He had US done as outpatient which was negative for pseudoaneurysm andfollows up CT was ordered and he was instructed to go to the ED by his PCPfor IV diuresis. He reports he is compliant with his medications. EKG: SR, LBBB Hs-Trop: 56, 52 BNP: 3373 Echo: 08/19/2021 Conclusions * Left ventricular chamber dimension is normal. * Left ventricular function is low normal with an estimated ejectionfraction of 45-50%. * Left ventricular segmental wall motion is abnormal. * The left ventricular diastolic function is consistent with stage I diastolic dysfunction (normal left atrial pressure). * Right ventricular systolic function is normal. * Estimated pulmonary artery pressure is 24 mmHg, consistent with nopulmonary hypertension. * Left atrial chamber dimension is normal. * There is trace mitral valve regurgitation. * There is trace tricuspid valve regurgitation. Cath: 02/16/2022 Coronary Findings Diagnostic Dominance: Right Left Main Dist LM lesion is 99% stenosed. The lesion is calcified. The lesion iscalcified. Left Anterior Descending Ost LAD lesion is 100% stenosed. Fills by KELLY to LAD Left Circumflex Ost Cx lesion is 99% stenosed. Fills by SVG to OM Right Coronary Artery Prox RCA lesion is 100% stenosed. Fills by SVG to RPDA KELLY Graft To Mid LAD The graft is angiographically normal. Vein Graft To Lat 1st Mrg The graft is angiographically normal. Vein Graft To RPDA Origin lesion is 80% stenosed. Conclusion Result status: Final result Dist LM lesion is 99% stenosed. Ost LAD lesion is 100% stenosed. Ost Cx lesion is 99% stenosed. Prox RCA lesion is 100% stenosed. Origin lesion is 80% stenosed. - Severe occluded kiowa tribe LAD/LCX and RCA - Patent KELLY to LAD - Patent SVG to OM - Severe proximal SVG to RPDA stenosis s/p successful PCI with REYNOLD X 1 - Normal LVEDP and normal LV systolic function Plan - ASA, plavix - Med Rx ROS Denies: fever, chills, nausea, vomiting, dizziness, headaches, diarrhea,constipation All other systems reviewed are negative Past Medical History: Diagnosis Date Allergy Arthritis Chronic cough DM (diabetes mellitus) ([facility]) 02/12/2010 GERD (gastroesophageal reflux disease) H/O heart surgery Heart attack ([facility]) Heart disease High cholesterol History of chicken pox History of measles, mumps, or rubella HTN (hypertension) 02/12/2010 pt states never had HTN Hyperlipidemia Kidney stones Low testosterone RI (myocardial infarction) ([facility]) Nocturia 05/09/2019 Prostate disorder Urinary incontinence Current Facility-Administered Medications: acetaminophen (TYLENOL) tablet 650 mg, 650 mg, Oral, Q4H PRN, Rodriguez,Harjodh, DO, 650 mg at 08/19/22 1258 carvediloL (COREG) tablet 6.25 mg, 6.25 mg, Oral, BID, Rodriguez,Harjodh, DO, 6.25 mg at 08/19/22 0814 cefTRIAXone in dextrose (ROCEPHIN) 2 gram/50 mL IVPB 2 g, 2 g,Intravenous, Daily, Rodriguez, Harjodh, DO, Stopped at 08/19/22 0839 dextrose 50 % solution 25 mL, 25 mL, Intravenous, PRN, Rodriguez,Harjodh, DO fUROsemide (LASix) injection 40 mg, 40 mg, Intravenous, BID Diuretic,Rodriguez, Harjodh, DO, 40 mg at 08/19/22 0813 glimepiride (AMARYL) tablet 4 mg, 4 mg, Oral, BID, Leo Clemente MD, 4mg at 08/19/22 1259 glucagon (GLUCAGEN) injection 1 mg, 1 mg, Intramuscular, PRN ANDsterile water injection 1 mL, 1 mL, Injection, PRN, Rodriguez, Harjodh, DO hydroCHLOROthiazide (HYDRODIURIL) tablet 25 mg, 25 mg, Oral, Daily,Rodriguez, Harjodh, DO, 25 mg at 08/19/22 0814 insulin aspart U-100 (NovoLOG) injection 1-10 Units, 1-10 Units,Subcutaneous, QID WM, Rodriguez, Harjodh, DO isosorbide mononitrate (IMDUR) CR tablet 60 mg, 60 mg, Oral, QAM,Rodriguez, Harjodh, DO, 60 mg at 08/19/22 0814 lisinopriL (PRINIVIL;ZESTril) tablet 5 mg, 5 mg, Oral, Daily, Rodriguez,Harjodh, DO, 5 mg at 08/19/22 0814 morphine injection 2 mg, 2 mg, Intravenous, Q4H PRN OR morphineinjection 3-4 mg, 3-4 mg, Intravenous, Q4H PRN, Rodriguez, Harjodh, DO nitroGLYCERIN (NITROSTAT) SL tablet 0.4 mg, 0.4 mg, Sublingual, Q5 MinPRN, Rodriguez, Harjodh, DO ondansetron (ZOFRAN) tablet 4 mg, 4 mg, Oral, Q4H PRN ORondansetron (ZOFRAN) injection 4 mg, 4 mg, Intravenous, Q4H PRN, Nimisha Rodriguez, DO pantoprazole (PROTONIX) tablet 40 mg, 40 mg, Oral, BID, Nimisha Rodriguez, DO, 40 mg at 08/19/22 0814 polyethylene glycol (GLYCOLAX, MIRALAX) packet 17 g, 17 g, Oral, BIDPRN, Jennifer, Nimisha, DO rosuvastatin (CRESTOR) tablet 20 mg, 20 mg, Oral, Nightly, Nimisha Rodriguez, DO Social History Socioeconomic History Marital status: Spouse name: Not on file Number of children: Not on file Years of education: Not on file Highest education level: Not on file Occupational History Not on file Tobacco Use Smoking status: Never Smokeless tobacco: Never Vaping Use Vaping Use: Never used Substance and Sexual Activity Alcohol use: No Comment: NO Drug use: No Comment: NO Sexual activity: Not on file Other Topics Concern Not on file Social History Narrative Not on file Social Determinants of Health Financial Resource Strain: Not on file Food Insecurity: Not on file Transportation Needs: Not on file Physical Activity: Not on file Stress: Not on file Social Connections: Not on file Intimate Partner Violence: Not on file Housing Stability: Not on file Past Surgical History: Procedure Laterality Date ANGIOPLASTY 1990 CARDIAC SURGERY N/A 08/25/2013 CORONARY ARTERY BYPASS GRAFTS X 3 USING BILATERAL SAPHENOUS VEIN X 2 ANDLEFT INTERNAL MAMMARY ARTERY BYPASS GRAFT X 1; Surgeon: Richard Jo MD; Location: [facility]; Service: Open Heart CORONARY PERCUTANEOUS INTERVENTION(PCI) N/A 02/16/2022 Surgeon: Sapphire Munguia MD; Location: [facility]; Service: Cardiac IR 2 LEVEL BILATERAL MEDIAL BRANCH BLOCK CERV THOR 07/08/2021 IR 2 LEVEL BILATERAL MEDIAL BRANCH BLOCK CERV THOR 07/08/2021 Carlos Langston MD [facility] IR 2 LEVEL BILATERAL MEDIAL BRANCH BLOCK LUM SAC 12/06/2017 IR 2 LEVEL BILATERAL MEDIAL BRANCH BLOCK LUM SAC 12/06/2017 [facility] 2 LEVEL BILATERAL MEDIAL BRANCH BLOCK LUM SAC 03/07/2018 IR 2 LEVEL BILATERAL MEDIAL BRANCH BLOCK LUM SAC 03/07/2018 [facility] GUIDED INJECT TRANSFORAM EPIDUR LUMB OR SACRAL SINGLE LVL 01/12/2022 IR GUIDED INJECT TRANSFORAMINAL EPIDUR LUMB OR SACRAL SINGLE LVL103/14/2021 Carlos Langston MD [facility] IR PICC INSERTION EQUAL OR > 5 YEARS 09/24/2017 IR PICC INSERTION EQUAL OR > 5 YEARS 09/24/2017 Arabella Buckley PA FLOIR IR SACROILIAC JOINT INJECTION 06/24/2021 IR SACROILIAC JOINT INJECTION 06/24/2021 Carlos Langston MD [facility] ULTRASOUND GUIDED VASCULAR ACCESS 09/24/2017 IR ULTRASOUND GUIDED VASCULAR ACCESS 09/24/2017 Arabella Buckley PA FLOIR PROSTATE SURGERY N/A 11/20/2019 cystoscopy transurethral resection of the prostate; Surgeon: Ina Overton MD; Location: [facility] MAIN OR; Service: Urology TONSILLECTOMY UPPER GASTROINTESTINAL ENDOSCOPY UPPER GASTROINTESTINAL ENDOSCOPY N/A 07/17/2018 ESOPHAGOGASTRODUODENOSCOPY with savary dilation and biopsy ; Surgeon: Stevie Acosta MD; Location: [facility] ENDOSCOPY; Service:Endoscopy UPPER GASTROINTESTINAL ENDOSCOPY N/A 09/20/2018 ESOPHAGOGASTRODUODENOSCOPY with biopsy; Surgeon: Stevie Acosta MD; Location: [facility]COPY; Service: Endoscopy Allergies Allergen Reactions Insulin Aspart Other (See Comments) Hypersensitivity; and Photosensitivity. Per pt Jardiance [Empagliflozin] Other (See Comments) Got a blood infection Milk Shortness Of Breath Can have butter (had issue with not able to get green beans, chickennoodle soup, but able to have) Family History Problem Relation Age of Onset Cancer Mother Lymph Node Cancer Cancer Father Lung Cancer Cataracts Father Back Problems Brother No Known Problems Sister Amblyopia Neg Hx Blindness Neg Hx Glaucoma Neg Hx Macular Degen Neg Hx Retinal Detachment Neg Hx Strabismus Neg Hx Objective Vitals: 08/19/22 1157 BP: 140/83 Pulse: 86 Resp: 18 Temp: 97.4 F (36.3 C) SpO2: 97% Physical Exam: GENERAL APPEARANCE: No acute distress NECK: No JVD, No bruit HEENT: Head is Normal cephalic, Pupils are equally round .Nolymphadenopathy. Mouth and throat normal in appearance RESPIRATORY: Normal breath sounds bilateral, no wheezes, rals or ronchi HEART: Normal S1 S2- No S3, No S4, No Murmur, rub or gallop VASCULAR: Normal pulses, equal, bilateral in upper and lowerextremities GI: Soft, nontender, no organomegaly, no distension, + Bowel sounds NEURO: Alert and oriented X 3, Non focal and grossly intact EXTREMITIES No edema, cyanosis or clubbing Results for orders placed during the hospital encounter of 08/18/22 EK EKG [address] [facility] Test Date: 2022-08-18 Pat Name: JACKIE ABDI Department: [facility] Room: 01 Gender: Male Shuttle Preparation Supervisor: Jose Manuel : 1955 Requested By: JESSICA Brandon Order Number: [id number] Reading MD: Sapphire Munguia Measurements Intervals [place] Rate: 78 P: 44 OH: 169 QRS: -8 QRSD: 165 T: 75 QT: 405 QTc: 464 Interpretive Statements SINUS RHYTHM LEFT BUNDLE BRANCH BLOCK Electronically Signed On 08-18-2022 18:39:09 EDT by Sapphire Munguia No results found for this or any previous visit. Results for orders placed during the hospital encounter of 08/18/22 XR CHEST PA AND LATERAL Narrative PA AND LATERAL CHEST X-RAY, 08/18/2022 5:22 PM CLINICAL HISTORY: -SHORTNESS OF BREATH COMPARISON: March 20, 2022 PROCEDURE COMMENTS: Frontal and lateral views of the chest. FINDINGS: Sternotomy changes with moderate cardiac enlargement.Bilateral pulmonary vascular congestion. Lung volumes are low, resulting in crowdingof the bronchovascular markings. LEFT lung base subsegmental atelectasis. Impression : LEFT base subsegmental atelectasis. Mild central vascular congestion. - Note: Radiology results need to be interpreted within a comprehensiveclinical context. If you have questions about the radiology report, please contactthe office of the ordering clinician. Labs Lab Results Component Value Date CKTOTAL 138 01/25/2019 No results found for: DDIMER Lab Results Component Value Date CHOLESTEROL 135 05/27/2022 CHOLESTEROL 169 02/17/2022 CHOLESTEROL 156 06/15/2021 HDL 29 (L) 05/27/2022 HDL 31 (L) 02/17/2022 HDL 32 (L) 06/15/2021 LDLCALC 73 05/27/2022 LDLCALC 94 02/17/2022 LDLCALC 88 06/15/2021 TRIG 195 (H) 05/27/2022 TRIG 262 (H) 02/17/2022 TRIG 209 (H) 06/15/2021 Lab Results Component Value Date INR 0.91 12/01/2019 INR 1.13 08/25/2013 INR 0.99 08/24/2013 Lab Results Component Value Date WBC 12.6 (H) 08/19/2022 WBC 13.3 (H) 08/18/2022 WBC 5.7 05/27/2022 HGB 10.0 (L) 08/19/2022 HGB 10.5 (L) 08/18/2022 HGB 13.2 (L) 05/27/2022 HCT 30.1 (L) 08/19/2022 HCT 32.2 (L) 08/18/2022 HCT 41.1 05/27/2022 MCV 88.0 08/19/2022 MCV 88.7 08/18/2022 MCV 90.3 05/27/2022 PLT 305 08/19/2022 PLT 331 08/18/2022 PLT 218 05/27/2022 Lab Results Component Value Date HGBA1C 7.5 (H) 05/27/2022 HGBA1C 9.7 (H) 12/20/2021 HGBA1C 9.0 (H) 06/15/2021 Lab Results Component Value Date NA 133 (L) 08/19/2022 NA 136 08/18/2022 NA 138 02/17/2022 K 4.0 08/19/2022 K 3.8 08/18/2022 K 4.3 02/17/2022 BUN 20 08/19/2022 BUN 20 08/18/2022 BUN 15 02/17/2022 CALCIUM 8.9 08/19/2022 CALCIUM 9.0 08/18/2022 CALCIUM 9.1 02/17/2022 CL 99 08/19/2022 CL 98 08/18/2022 CL 104 02/17/2022 CO2 24 08/19/2022 CO2 25 08/18/2022 CO2 24 02/17/2022 CREATININE 1.16 08/19/2022 CREATININE 1.22 08/18/2022 CREATININE 0.94 02/17/2022 GLU 371 (H) 08/19/2022 GLU 287 (H) 08/18/2022 GLU 193 (H) 02/17/2022 Lab Results Component Value Date ALT 15 08/18/2022 ALT 23 06/15/2021 ALT 20 03/09/2021 AST 10 08/18/2022 AST 20 06/15/2021 AST 20 03/09/2021 ALKPHOS 84 08/18/2022 ALKPHOS 116 06/15/2021 ALKPHOS 100 03/09/2021 Assessment Active Hospital Problems Diagnosis *CHF (congestive heart failure), NYHA class I, acute on chronic,combined (HCC) Right groin mass Obstructive sleep apnea syndrome BPH with obstruction/lower urinary tract symptoms Uncontrolled type 2 diabetes mellitus with hyperglycemia (HCC) S/P CABG x 3 Hyperlipidemia GERD (gastroesophageal reflux disease) Plan CAD --S/p CABG --Trop not supportive of ACS picture --Recent LHC in [place] --Holding DAPT for now Rt Groin mass --post LHC --ICE pack --Appears to be a benign hematoma --surg asked to see, no plans for intervention --Restart DAPT --follow WBC CHF --states I'm full of fluid --Echo pending --Lasix 40 IV BID Exam Appearance: Normal appearance. He is ill-appearing. Cardiovascular: Rate and Rhythm: Normal rate and regular rhythm. Pulses: Normal pulses. Heart sounds: Normal heart sounds. Pulmonary: Effort: Pulmonary effort is normal. Breath sounds: Normal breath sounds. Abdominal: General: Abdomen is flat. Palpations: Abdomen is soft. Musculoskeletal: General: Normal range of motion. Right lower leg: Edema present. Left lower leg: Edema present. Comments: Right groin redness and swelling Will follow ATTENDING PHYSICIAN ATTESTATION: The patient was seen in collaboration with GRADUATE TEACHER EDUCATION. I have reviewed all pertinent history, laboratory and radiology studies. I have taken a history and performed a physical examination of thispatient. I agree with the history, physical, assessment and plan as outlined byARJARRED. Altaf Yañez MD FACC ADMIT Routine 08/18/2022 10:27 PM EDT ADMIT STAT 08/18/2022 7:51 PM EDT TROPONIN-T HIGH SENSITIVITY 2HR Timed 08/18/2022 7:[address] PELVIS W CONTRAST STAT 08/18/2022 6:06 PM EDT NT PROBNP STAT 08/18/2022 5:30 PM EDT TROPONIN-T HIGH SENSITIVITY BASELINE W/ REFLEX STAT 08/18/2022 5:30 PM EDT LIPID SCREEN STAT 08/18/2022 5:30 PM EDT COMPREHENSIVE METABOLIC PANEL STAT 08/18/2022 5:30 PM EDT CBC WITH DIFF STAT 08/18/2022 5:30 PM EDT XR CHEST PA AND LATERAL ALEXANDRA 08/18/2022 5:22 PM EDT EK EKG 12 LEAD STAT 08/18/2022 5:07 PM EDT IL US EVALUATE PSEUDOANEURYSM RIGHT STAT 08/14/2022 12:28 PM EDT 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, unspecified vessel or lesion type Mixed hyperlipidemia Ischemic heart disease S/P CABG x 3 Hematoma of groin, initial encounter Other specified complications of surgical and medical care, not elsewhere classified, initial encounter CT FACIAL BONES WO CONTRAST STAT 06/09/2022 5:[address] HEAD WO CONTRAST STAT 06/09/2022 5:21 PM EDT PROSTATE SPECIFIC ANTIGEN (SCREENING) Routine 05/27/2022 9:07 AM EDT Screening for prostate cancer THYROID STIMULATING HORMONE Routine 05/27/2022 9:07 AM EDT Screening for thyroid disorder LIPID PANEL REFLEX Routine 05/27/2022 9:07 AM EDT Dyslipidemia associated with type 2 diabetes mellitus (HCC) HEMOGLOBIN A1C Routine 05/27/2022 9:07 AM EDT Uncontrolled type 2 diabetes mellitus with hyperglycemia (HCC) CBC WITH DIFF Routine 05/27/2022 9:07 AM EDT Uncontrolled type 2 diabetes mellitus with hyperglycemia (HCC) XR KNEE RIGHT AP LATERAL AND SUNRISE STANDING Routine 05/19/2022 8:20 AM EST Chronic pain of right knee XR KNEE LEFT AP LATERAL AND SUNRISE STANDING Routine 04/28/2022 1:10 PM EST Acute pain of left knee OH ARTHROCENTESIS ASPIR&/INJ MAJOR JT/BURSA W/O US Routine 04/28/2022 1:00 PM EST Acute pain of left knee Primary osteoarthritis of left knee XR KNEE LEFT AP LAT INT EXT OBLIQUES AND SUNRISE ALEXANDRA 04/26/2022 8:16 PM EST OCT, RETINA - OU - BOTH EYES Routine 04/07/2022 11:00 AM EST Diabetes mellitus without complication (HCC) XR CHEST PA AND LATERAL Routine 03/20/2022 10:16 AM EST Atherosclerotic heart disease of kiowa tribe coronary artery with other forms of angina pectoris Fluid retention in legs Angina of effort POCT EKG Routine 03/07/2022 9:44 AM EST 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, unspecified vessel or lesion type Mixed hyperlipidemia GLUCOSE METER POC Routine 02/17/2022 6:53 AM EST ECG AND WAVEFORMS - TELEMETRY Routine 02/17/2022 5:59 AM EST LIPID SCREEN Add-On 02/17/2022 5:30 AM EST BASIC METABOLIC PANEL Early AM 02/17/2022 5:30 AM EST GLUCOSE METER POC Routine 02/16/2022 9:44 PM EST ECG AND WAVEFORMS - TELEMETRY Routine 02/16/2022 7:33 PM EST ECG AND WAVEFORMS - TELEMETRY Routine 02/16/2022 4:30 PM EST ADMIT Routine 02/16/2022 3:16 PM EST CARDIAC PROCEDURE Routine 02/16/2022 3:07 PM EST Chest pain, unspecified type Shortness of breath CORONARY PERCUTANEOUS INTERVENTION(PCI) Routine 02/16/2022 3:07 PM EST Chest pain, unspecified type Shortness of breath LEFT VENTRICULOGRAM Routine 02/16/2022 3:07 PM EST Chest pain, unspecified type Shortness of breath CARDIAC PROCEDURE Routine 02/16/2022 3:07 PM EST Chest pain, unspecified type Shortness of breath CARDIAC PROCEDURE Routine 02/16/2022 3:07 PM EST Chest pain, unspecified type Shortness of breath ACTIVATED CLOTTING TIME LR POC Routine 02/16/2022 3:03 PM EST ACTIVATED CLOTTING TIME LR POC Routine 02/16/2022 2:46 PM EST ACTIVATED CLOTTING TIME LR POC Routine 02/16/2022 2:37 PM EST COLD STRIP ROLLER HEMODYNAMIC WAVEFORMS Routine 02/16/2022 2:14 PM EST CBC Routine 02/13/2022 11:04 AM EST Chest pain, unspecified type SOB (shortness of breath) BASIC METABOLIC PANEL Routine 02/13/2022 11:04 AM EST Chest pain, unspecified type SOB (shortness of breath) PROSTATE SPECIFIC ANTIGEN (SCREENING) Routine 02/13/2022 11:04 AM EST Screening for prostate cancer T4, FREE (THYROXINE) Routine 02/13/2022 11:04 AM EST Essential hypertension THYROID STIMULATING HORMONE Routine 02/13/2022 11:04 AM EST Essential hypertension POCT EKG Routine 02/09/2022 3:28 PM EST Chest pain, unspecified type IR GUIDED INJECT TRANSFORAM EPIDUR LUMB OR SACRAL SINGLE LVL Routine 01/12/2022 2:58 PM EDT Chronic bilateral low back pain with right-sided sciatica Degenerative disc disease, lumbar Lumbar radiculopathy GLUCOSE METER POC Routine 01/12/2022 1:57 PM EDT COMPLIANCE PANEL, URINE Routine 01/03/2022 10:15 AM EDT Encounter for long-term (current) use of high-risk medication POCT VERONA FLU+SARS ANTIGEN Routine 01/02/2022 11:42 AM EDT Runny nose POCT VERONA INFLUENZA A/B Routine 01/02/2022 10:03 AM EDT Runny nose GLUCOSE METER POC Routine 12/29/2021 1:10 PM EDT HEMOGLOBIN A1C Routine 12/20/2021 2:42 PM EDT Uncontrolled type 2 diabetes mellitus with hyperglycemia (HCC) BASIC METABOLIC PANEL Routine 12/20/2021 2:42 PM EDT Essential hypertension Night sweats CBC WITH DIFF Routine 12/20/2021 2:42 PM EDT Essential hypertension Night sweats MRI LUMBAR SPINE WO CONTRAST Routine 12/05/2021 9:37 AM EDT Chronic bilateral low back pain with right-sided sciatica XR THORACIC SPINE AP LATERAL AND SWIMMERS ALEXANDRA 10/03/2021 5:43 PM EDT XR LUMBAR SPINE AP AND LATERAL ALEXANDRA 10/03/2021 5:42 PM EDT XR FOOT RIGHT AP LATERAL AND [place]BLI[place] Routine 08/29/2021 11:03 AM EDT Ulcer of right foot with fat layer exposed (HCC) Diabetic polyneuropathy associated with type 2 diabetes mellitus (HCC) Hammer toe of right foot Toe pain, right EC ECHOCARDIOGRAM COMPLETE W DOPPLER AND COLOR FLOW MAPPING Routine 08/19/2021 9:49 AM EDT SOB (shortness of breath) Ischemic heart disease S/P CABG x 3 IR 2 LEVEL BILATERAL MEDIAL BRANCH BLOCK CERV THOR Routine 07/08/2021 2:47 PM EDT Cervical spondylosis POCT EKG Routine 07/08/2021 8:34 AM EDT SOB (shortness of breath) IR SACROILIAC JOINT INJECTION Routine 06/24/2021 2:10 PM EDT Sacroiliitis GLUCOSE METER POC Routine 06/24/2021 1:47 PM EDT THYROID STIMULATING HORMONE Routine 06/15/2021 7:47 AM EDT Dyslipidemia associated with type 2 diabetes mellitus (HCC) LIPID PANEL REFLEX Routine 06/15/2021 7:47 AM EDT Dyslipidemia associated with type 2 diabetes mellitus (HCC) VITAMIN B12 LEVEL Routine 06/15/2021 7:47 AM EDT Vitamin B12 deficiency VITAMIN D 25 HYDROXY Routine 06/15/2021 7:47 AM EDT Vitamin D deficiency FRUCTOSAMINE Routine 06/15/2021 7:47 AM EDT Dyslipidemia associated with type 2 diabetes mellitus (HCC) HEMOGLOBIN A1C Routine 06/15/2021 7:47 AM EDT Dyslipidemia associated with type 2 diabetes mellitus (HCC) COMPREHENSIVE METABOLIC PANEL Routine 06/15/2021 7:47 AM EDT Dyslipidemia associated with type 2 diabetes mellitus (HCC) C-REACTIVE PROTEIN Routine 06/15/2021 7:47 AM EDT Dyslipidemia associated with type 2 diabetes mellitus (HCC) SHIGA TOXIN Routine 05/20/2021 7:44 AM EST Diarrhea, unspecified type STOOL CULTURE (NO STAIN) Routine 05/20/2021 7:44 AM EST Diarrhea, unspecified type FECAL WHITE BLOOD CELLS Routine 05/20/2021 7:44 AM EST Diarrhea, unspecified type C DIFF TOXIN DNA Routine 05/20/2021 7:44 AM EST Diarrhea, unspecified type MRI CERVICAL SPINE WO CONTRAST Routine 04/29/2021 8:15 AM EST DDD (degenerative disc disease), cervical VA US CAROTID DUPLEX BILATERAL Routine 04/22/2021 3:42 PM EST Dizziness and giddiness IR 2 LEVEL DANNA RFA DESTROY LUM OR SAC FACET JNT NERVE Routine 04/05/2021 9:25 AM EST Spondylosis of lumbar region without myelopathy or radiculopathy GLUCOSE METER POC Routine 04/05/2021 7:52 AM EST LIPID PANEL REFLEX Routine 03/09/2021 8:32 AM EST Dyslipidemia associated with type 2 diabetes mellitus (HCC) VITAMIN B12 LEVEL Routine 03/09/2021 8:32 AM EST Vitamin B12 deficiency VITAMIN D 25 HYDROXY Routine 03/09/2021 8:32 AM EST Vitamin D deficiency FRUCTOSAMINE Routine 03/09/2021 8:32 AM EST Dyslipidemia associated with type 2 diabetes mellitus (HCC) HEMOGLOBIN A1C Routine 03/09/2021 8:32 AM EST Dyslipidemia associated with type 2 diabetes mellitus (HCC) URIC ACID Routine 03/09/2021 8:32 AM EST Dyslipidemia associated with type 2 diabetes mellitus (HCC) COMPREHENSIVE METABOLIC PANEL Routine 03/09/2021 8:32 AM EST Dyslipidemia associated with type 2 diabetes mellitus (HCC) C-REACTIVE PROTEIN Routine 03/09/2021 8:32 AM EST Dyslipidemia associated with type 2 diabetes mellitus (HCC) IRIS DIABETIC RETINOPATHY EXAM Routine 02/14/2021 1:39 PM EST Type 2 diabetes mellitus without complication, unspecified whether fdc insulin use (HCC) WOUND CULTURE (STAIN INCLUDED) Routine 02/14/2021 1:35 PM EST Abscess IR LUMBAR/SACRAL JASON WITH GUIDANCE Routine 02/08/2021 11:29 AM EST Lumbar radiculopathy GLUCOSE METER POC Routine 02/08/2021 10:56 AM EST GLUCOSE METER POC Routine 02/08/2021 9:30 AM EST GLUCOSE METER POC Routine 01/27/2021 9:19 AM EST MRI LUMBAR SPINE WO CONTRAST Routine 01/04/2021 9:35 AM EDT Chronic right-sided low back pain with right-sided sciatica XR LUMBAR SPINE AP AND LATERAL ALEXANDRA 12/31/2020 3:11 PM EDT T4, FREE (THYROXINE) Routine 11/20/2020 10:15 AM EDT Dyslipidemia associated with type 2 diabetes mellitus (HCC) THYROID STIMULATING HORMONE Routine 11/20/2020 10:15 AM EDT Dyslipidemia associated with type 2 diabetes mellitus (HCC) LIPID PANEL REFLEX Routine 11/20/2020 10:15 AM EDT Dyslipidemia associated with type 2 diabetes mellitus (HCC) VITAMIN B12 LEVEL Routine 11/20/2020 10:15 AM EDT Vitamin B12 deficiency VITAMIN D 25 HYDROXY Routine 11/20/2020 10:15 AM EDT Vitamin D deficiency FRUCTOSAMINE Routine 11/20/2020 10:15 AM EDT Dyslipidemia associated with type 2 diabetes mellitus (HCC) HEMOGLOBIN A1C Routine 11/20/2020 10:15 AM EDT Dyslipidemia associated with type 2 diabetes mellitus (HCC) COMPREHENSIVE METABOLIC PANEL Routine 11/20/2020 10:15 AM EDT Dyslipidemia associated with type 2 diabetes mellitus (HCC) C-REACTIVE PROTEIN Routine 11/20/2020 10:15 AM EDT Dyslipidemia associated with type 2 diabetes mellitus (HCC) POCT EKG Routine 07/22/2020 9:52 AM EDT 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, unspecified vessel or lesion type S/P CABG x 3 POCT EKG Routine 06/23/2020 10:41 AM EDT Ischemic heart disease 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, unspecified vessel or lesion type TESTOSTERONE LEVEL TOTAL Routine 06/16/2020 8:02 AM EDT ED (erectile dysfunction) of non-organic origin Testosterone deficiency Decreased libido Uncontrolled type 2 diabetes mellitus with hyperglycemia (HCC) Essential hypertension PROSTATE SPECIFIC ANTIGEN (SCREENING) Routine 06/16/2020 8:02 AM EDT Encounter for screening for malignant neoplasm of prostate ED (erectile dysfunction) of non-organic origin Testosterone deficiency Decreased libido Uncontrolled type 2 diabetes mellitus with hyperglycemia (HCC) Essential hypertension C-REACTIVE PROTEIN Routine 05/09/2020 9:17 AM EST Vitamin B12 deficiency COMPREHENSIVE METABOLIC PANEL Routine 05/09/2020 9:17 AM EST Vitamin B12 deficiency URIC ACID Routine 05/09/2020 9:17 AM EST Vitamin B12 deficiency HEMOGLOBIN A1C Routine 05/09/2020 9:17 AM EST Vitamin B12 deficiency FRUCTOSAMINE Routine 05/09/2020 9:17 AM EST Vitamin B12 deficiency VITAMIN D 25 HYDROXY Routine 05/09/2020 9:17 AM EST Vitamin B12 deficiency VITAMIN B12 LEVEL Routine 05/09/2020 9:17 AM EST Vitamin B12 deficiency LIPID SCREEN Routine 05/09/2020 9:17 AM EST Vitamin B12 deficiency THYROID STIMULATING HORMONE Routine 05/09/2020 9:17 AM EST Vitamin B12 deficiency LIPID PANEL REFLEX Routine 01/16/2020 7:49 AM EST Dyslipidemia associated with type 2 diabetes mellitus (HCC) VITAMIN B12 LEVEL Routine 01/16/2020 7:49 AM EST Vitamin B12 deficiency C-PEPTIDE Routine 01/16/2020 7:49 AM EST Dyslipidemia associated with type 2 diabetes mellitus (HCC) FRUCTOSAMINE Routine 01/16/2020 7:49 AM EST Dyslipidemia associated with type 2 diabetes mellitus (HCC) HEMOGLOBIN A1C Routine 01/16/2020 7:49 AM EST Dyslipidemia associated with type 2 diabetes mellitus (HCC) COMPREHENSIVE METABOLIC PANEL Routine 01/16/2020 7:49 AM EST Dyslipidemia associated with type 2 diabetes mellitus (HCC) C-REACTIVE PROTEIN Routine 01/16/2020 7:49 AM EST Dyslipidemia associated with type 2 diabetes mellitus (HCC) US GUIDED PAROTID BIOPSY-FNA Routine 01/13/2020 1:00 PM EST Parotid mass NON-QUALITY ASSURANCE SUPERVISOR BODY CYTOLOGY REQUEST Routine 01/13/2020 11:52 AM EST CORONAVIRUS 2019 Routine 01/09/2020 1:00 PM EDT Pre-op testing Encounter for laboratory testing for COVID-19 virus POCT BLADDER SCAN Routine 12/15/2019 10:09 AM EDT Urinary frequency SEP URINALYSIS POC Routine 12/15/2019 9:41 AM EDT Urinary frequency MRI CERVICAL SPINE WO CONTRAST Routine 12/03/2019 12:56 PM EDT IP CONSULT TO INTERVENTIONAL RADIOLOGY Routine 12/03/2019 9:05 AM EDT Procedure Note - Geri Garcia - 12/03/2019 9:30 AM EDTThis note is in progress. Images from the original note were not included. IR consulted for a right parotid mass bx. Case and images r/w Dr. Jacobs.Mass is amenable to bx. Pt is also being treated and worked up for TIA.Pt taking ASA and Plavix currently. Per IR coagulation guidelines, bothASA and Plavix must be held for 5 days prior to parotid mass bx. I willdefer to primary and neurology in regard to the feasibility of holdingthese meds. Bx can be completed as OP. I have placed both IP and OPorders for the biopsy. VIA can schedule procedure if pt can d/c thesemeds. IR to follow peripherally. GLUCOSE METER POC Routine 12/03/2019 7:57 AM EDT ECG AND WAVEFORMS - TELEMETRY Routine 12/03/2019 7:00 AM EDT ECG AND WAVEFORMS - TELEMETRY Routine 12/03/2019 12:30 AM EDT ECG AND WAVEFORMS - TELEMETRY Routine 12/03/2019 12:30 AM EDT ECG AND WAVEFORMS - TELEMETRY Routine 12/02/2019 11:36 PM EDT GLUCOSE METER POC Routine 12/02/2019 10:08 PM EDT ECG AND WAVEFORMS - TELEMETRY Routine 12/02/2019 7:00 PM EDT GLUCOSE METER POC Routine 12/02/2019 5:37 PM EDT IP CONSULT TO NEUROSURGERY Routine 12/02/2019 5:20 PM EDT Procedure Note - Kadeem Flanagan APRN - 12/03/2019 12:27 PM EDTThis note is in progress. Neurosurgery Consult Asked to see for intermittent RUE weakness / numbness MRI C-spine not completed Seen by Neurology with Dx of TIA due to intracranial atherosclerosis.Starting ASA and Plavix No role for NSurg involvement unless MRI c-spine suggests surgical issue CT CERVICAL SPINE WO CONTRAST ALEXANDRA 12/02/2019 3:32 PM EDT EC ECHOCARDIOGRAM COMPLETE W DOPPLER AND COLOR FLOW MAPPING STAT 12/02/2019 1:43 PM EDT GLUCOSE METER POC Routine 12/02/2019 12:06 PM EDT VA US CAROTID DUPLEX BILATERAL STAT 12/02/2019 10:47 AM EDT SCANNED EKG 12/02/2019 8:54 AM EDT MRI BRAIN WO CONTRAST STAT 12/02/2019 8:00 AM EDT ECG AND WAVEFORMS - TELEMETRY Routine 12/02/2019 7:00 AM EDT LIPID PANEL REFLEX Timed 12/02/2019 6:24 AM EDT HEMOGLOBIN A1C Timed 12/02/2019 6:24 AM EDT ECG AND WAVEFORMS - TELEMETRY Routine 12/01/2019 10:40 PM EDT IP CONSULT TO NEUROLOGY Routine 12/01/2019 10:37 PM EDT Procedure Note - Phillip Negron MD - 12/02/2019 7:02 PM EDTThis note is in progress. Assessment and Plan -Transient Ischemic attack (ABCD2 score is 5), most likely secondary todiffuse intracranial atherosclerosis, and manifested by right armweakness -Left vertebral artery occlusion - Observation for 48 hours. Will need Neuro Checks Q 4 hours whileinpatient. Permissive HTN while here - Please start on Aspirin 81 mg and Plavix 75 mg daily for 3 months thenonly Plavix 75 mg daily for life - would recommend a holter monitor on discharge For better risk factor modifications -Atorvastatin 10 mg daily (fdc LDL goal 50-70). 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 - Will need to follow up with PCP for risk factor modification andfollowing up the results of the holter - No outpatient neurology follow-up necessary. Thank you for allowing us to participate in the care of your patient.Please contact our Neurology consult service if you have any furtherquestions or concerns. Phillip Negron MD HPI: Jackie Abdi is a right-handed man with a history of DM, HTN,HLD, CAD s/p CABG who was referred for consultation for an episode ofright arm weakness Yesterday at 4pm, while driving, felt weak in his right hand, and thenstarted sweating, and sat for 15 minutes and felt back normal. No clonicactivity before He has had previous history of heart attacks s/p cabg 2013 He has a history of hyperlipidemia He has not had a history of HTN He has not had a history of smoking Unsure if he has not a history of atrial fibrillation?? He has been on daily Aspirin 81 mg daily, never misses a dose. Nobleeding He has been on atorvastatin, not sure about the dose On review of systems, patient reports intermittent shoulder pain. Allother systems were reviewed and were found to be negative for pertinentsymptoms Past Medical History: Diagnosis Date Allergy Arthritis Chronic cough DM (diabetes mellitus) ([facility]) 02/12/2010 GERD (gastroesophageal reflux disease) H/O heart surgery Heart attack ([facility]) Heart disease High cholesterol History of chicken pox History of measles, mumps, or rubella HTN (hypertension) 02/12/2010 pt states never had HTN Hyperlipidemia Kidney stones Low testosterone RI (myocardial infarction) ([facility]) Nocturia 05/09/2019 Prostate disorder Urinary incontinence Patient Active Problem List Diagnosis Date Noted RUE weakness 12/01/2019 Occlusion of left vertebral artery 12/01/2019 Nocturia Incomplete emptying of bladder Obstructive sleep apnea syndrome 05/09/2019 BPH with obstruction/lower urinary tract symptoms 05/09/2019 OAB (overactive bladder) 05/09/2019 Dizziness 02/20/2019 Lightheadedness 02/20/2019 Hypotension 02/20/2019 Class 2 severe obesity due to excess calories with serious comorbidityand body mass index (BMI) of 35.0 to 35.9 in adult ([facility]) 11/19/2018 Eosinophilic esophagitis Elevated lipoprotein(a) 08/01/2018 Followed by Endocrinology. Esophageal dysphagia Chronic pain syndrome 11/06/2017 Spondylosis of lumbar region without myelopathy or [id number]/28/2018 Sacroiliitis ([facility]) 11/06/2017 Degenerative disc disease, lumbar 10/15/2017 Dysuria Benign prostatic hyperplasia with urinary frequency Acute prostatitis Yeast dermatitis of penis Acute pyelonephritis 09/20/2017 Elevated troponin 09/20/2017 SOB (shortness of breath) 09/20/2017 Uncontrolled type 2 diabetes mellitus with hyperglycemia ([facility])09/23/2014 Dyslipidemia associated with type 2 diabetes mellitus ([facility]) 08/20/2014 Followed by Endocrinology. Vitamin D deficiency 08/20/2014 Followed by Endocrinology. Vitamin B12 deficiency 08/20/2014 S/P CABG x 3 08/25/2013 08/25/13 CAD (coronary artery disease) 08/24/2013 Chest pain 08/19/2013 Ischemic heart disease 08/19/2013 Hyperlipidemia GERD (gastroesophageal reflux disease) Past Surgical History: Procedure Laterality Date ANGIOPLASTY 1991 CARDIAC SURGERY N/A 08/25/2013 CORONARY ARTERY BYPASS GRAFTS X 3 USING BILATERAL SAPHENOUS VEIN X 2 ANDLEFT INTERNAL MAMMARY ARTERY BYPASS GRAFT X 1; Surgeon: Richard Jo MD; Location: [facility] MAIN OR; Service: Open Heart IR 2 LEVEL BILATERAL MEDIAL BRANCH BLOCK LUM SAC 12/06/2017 IR 2 LEVEL BILATERAL MEDIAL BRANCH BLOCK LUM SAC 12/06/2017 [facility] 2 LEVEL BILATERAL MEDIAL BRANCH BLOCK LUM SAC 03/07/2018 IR 2 LEVEL BILATERAL MEDIAL BRANCH BLOCK LUM SAC 03/07/2018 [facility] IR PICC INSERTION EQUAL OR > 5 YEARS 09/24/2017 IR PICC INSERTION EQUAL OR > 5 YEARS 09/24/2017 Arabella Buckley PA [facility] IR ULTRASOUND GUIDED VASCULAR ACCESS 09/24/2017 IR ULTRASOUND GUIDED VASCULAR ACCESS 09/24/2017 Arabella Buckley PA FLOIR PROSTATE SURGERY N/A 11/20/2019 cystoscopy transurethral resection of the prostate; Surgeon: Ina Overton MD; Location: [facility] MAIN OR; Service: Urology TONSILLECTOMY UPPER GASTROINTESTINAL ENDOSCOPY UPPER GASTROINTESTINAL ENDOSCOPY N/A 07/17/2018 ESOPHAGOGASTRODUODENOSCOPY with savary dilation and biopsy ; Surgeon: Stevie Acosta MD; Location: [facility] ENDOSCOPY; Service:Endoscopy UPPER GASTROINTESTINAL ENDOSCOPY N/A 09/20/2018 ESOPHAGOGASTRODUODENOSCOPY with biopsy; Surgeon: Stevie Acosta MD; Location: [facility] ENDOSCOPY; Service: Endoscopy Current Facility-Administered Medications Medication Dose Route Frequency Provider Last Rate Last Dose acetaminophen (TYLENOL) tablet 650 mg 650 mg Oral Q4H Alma Salamanca MD Or acetaminophen (TYLENOL) suppository 650 mg 650 mg Rectal Q4H Alma Salamanca MD atorvastatin (LIPITOR) tablet 80 mg 80 mg Oral Nightly Yordan Crisostomo MD 80 mg at 12/02/19 0008 cholecalciferol (vitamin D3) tablet 5,000 Units 5,000 Units Oral DailyYordan Crisostomo MD 5,000 Units at 12/02/19 0900 cyanocobalamin tablet 1,000 mcg 1,000 mcg Oral Daily Yordan Crisostomo MD 1,000 mcg at 12/02/19 0900 dextrose 50 % solution 25 mL 25 mL Intravenous PRN Eloy Zepeda MD finasteride (PROSCAR) tablet 5 mg 5 mg Oral Daily Yordan Crisostomo MD5 mg at 12/02/19 0900 glimepiride (AMARYL) tablet 4 mg 4 mg Oral BID Yordan Crisostomo MD4 mg at 12/02/19 1753 glucagon (human recombinant) (GLUCAGEN) injection 1 mg 1 mgIntramuscular PRN Eloy Zepeda MD And sterile water injection 1 mL 1 mL Injection PRN Eloy Zepeda MD insulin aspart U-100 (NovoLOG) injection 1-10 Units 1-10 UnitsSubcutaneous QID Eloy Zepeda MD multivitamin, stress formula (Allbee Vit with C & B complex) tablet 1Tab 1 Tab Oral Daily Yordan Crisostomo MD 1 Tab at 12/02/19 0900 ondansetron (ZOFRAN) tablet 4 mg 4 mg Oral Q6H PRN Amla Barba MD Or ondansetron (ZOFRAN) injection 4 mg 4 mg Intravenous Q6H PRAlma Castro MD pantoprazole (PROTONIX) tablet 40 mg 40 mg Oral BID Yordan Crisostomo MD 40 mg at 12/02/19 0900 phenazopyridine (PYRIDIUM) tablet 100 mg 100 mg Oral TID PRN Eloy Zepeda MD 100 mg at 12/02/19 1829 polyethylene glycol (GLYCOLAX, MIRALAX) packet 17 g 17 g Oral Daily PRNEloy Zepeda MD senna-docusate (SENOKOT-S) 8.6-50 mg per tablet 1 Tab 1 Tab OralNightly PRN Yordan Crisostomo MD sodium chloride 0.9% IV line flush 20-50 mL 20-50 mL Intravenous PRYordan Sutherland MD sodium chloride 0.9% syringe Intravenous Q8H CORY Yordan Crisostomo MD10 mL at 12/02/19 1707 sodium chloride 0.9% syringe Intravenous PRN Yrodan Crisostomo MD tamsulosin (FLOMAX) capsule 0.8 mg 0.8 mg Oral Nightly Yordan Crisostomo MD 0.8 mg at 12/02/19 0008 No current facility-administered medications on file prior to encounter. Current Outpatient Medications on File Prior to Encounter Medication Sig Dispense Refill aspirin 81 mg Oral Tablet, Delayed Release (E.C.) Take 81 mg by mouthdaily. atorvastatin (LIPITOR) 80 mg Oral Tablet Take 1 Tab by mouth daily. 90Tab 2 Blood Sugar Diagnostic [facility] [employer] Strip Check blood sugars three times daily.accu-chek venkata plus Dx:E11.9 100 Each 11 Blood-Glucose Meter (FREESTYLE LITE METER) [facility] Kit USE DIRECTED 1Kit 0 Blood-Glucose Meter [facility] Kit Check glucose twice a day 1 Kit 0 Cholecalciferol, Vitamin D3, (VITAMIN D3) 5,000 unit Oral Tablet Take 1Tab by mouth daily. Cinnamon Bark (CINNAMON) 500 mg Oral Capsule Take by mouth 2 timesdaily. clobetasol (TEMOVATE) 0.05 % sclp Solution Apply topically 2 timesdaily. 50 mL 2 cyanocobalamin (VITAMIN B-12) 500 mcg Oral Tablet Take 1,000 mcg bymouth daily. finasteride (PROSCAR) 5 mg Oral Tablet Take 1 Tab by mouth daily. 90 Tab3 glimepiride (AMARYL) 4 mg Oral Tablet TAKE 1 TABLET BY MOUTH TWICE DAILYBEFORE MEAL(S) 60 Tab 5 IBU 800 mg Oral Tablet TAKE 1 TABLET EVERY 8 HOURS NEEDED 90 Tab 2 lancets (FREESTYLE LANCETS) 28 [facility] Misc 1 Each by [facility].(Non-Drug;Combo Route) route 3 times daily. 100 Each 11 MAGNESIUM ORAL Take by mouth daily. metFORMIN XR (GLUCOPHAGE-XR) 500 mg Oral Tablet Sustained Release 24 hrTAKE 2 TABS BY MOUTH 2 TIMES DAILY (WITH MEALS). 360 Tab 0 multivitamin, stress formula (ALLBEE VIT WITH C & B COMPLEX) Tab Take 1Tab by mouth daily. pantoprazole (PROTONIX) 40 mg Oral Tablet, Delayed Release (E.C.) Take 1tablet by mouth twice daily 180 Tab 1 phenazopyridine (PYRIDIUM) 100 mg Oral Tablet Take 1 Tab by mouth 3times daily as needed (urinary burning). 20 Tab 1 tamsulosin (FLOMAX) 0.4 mg Oral Capsule Take 2 Caps by mouth nightly.180 Cap 3 docusate sodium (COLACE) 100 mg Oral Capsule Take 1 Cap by mouth 2 timesdaily as needed for Constipation. (Patient not taking: Reported on12/01/2019) 60 Cap 0 guaiFENesin (MUCINEX) 600 mg Oral Tablet Extended Release 12hr Take 1Tab by mouth 2 times daily. (Patient not taking: Reported on 12/01/2019) 30Tab 0 semaglutide (OZEMPIC) 1 mg/dose (2 mg/1.5 mL) SubQ Pen Injector INJECT 1MG SUBCUTANEOUSLY ONCE A WEEK (Patient not taking: Reported on 12/01/2019)4 mL 5 Allergies Allergen Reactions Insulin Aspart Other (See Comments) Hypersensitivity; and Photosensitivity. Per pt Milk Shortness Of Breath Can have butter (had issue with not able to get green beans, chickennoodle soup, but able to have) Social History Socioeconomic History Marital status: Spouse name: Not on file Number of children: Not on file Years of education: Not on file Highest education level: Not on file Occupational History Not on file Social Needs Financial resource strain: Not on file Food insecurity Worry: Not on file Inability: Not on file Transportation needs Medical: Not on file Non-medical: Not on file Tobacco Use Smoking status: Never Smoker Smokeless tobacco: Never Used Substance and Sexual Activity Alcohol use: No Comment: NO Drug use: No Comment: NO Sexual activity: Not Currently Lifestyle Physical activity Days per week: Not on file Minutes per session: Not on file Stress: Not on file Relationships Social connections Talks on phone: Not on file Gets together: Not on file Attends mandaen service: Not on file Active member of club or organization: Not on file Attends meetings of clubs or organizations: Not on file Relationship status: Not on file Intimate partner violence Fear of current or ex partner: Not on file Emotionally abused: Not on file Physically abused: Not on file Forced sexual activity: Not on file Other Topics Concern Not on file Social History Narrative Not on file Family History Problem Relation Age of Onset Cancer Mother Lymph Node Cancer Cancer Father Lung Cancer Back Problems Brother No Known Problems Sister Vitals: 12/02/19 0830 12/02/19 1447 12/02/19 1531 12/02/19 1705 BP: 125/69 128/62 129/62 148/75 BP Location: Right arm Right arm Right arm Right arm Patient Position: Sitting Semi Fowlers Sitting Semi Fowlers Pulse: 60 66 70 63 Resp: 16 18 18 Temp: 97.2 F (36.2 C) 98.2 F (36.8 C) 97.7 F (36.5 C) TempSrc: Axillary Oral Oral SpO2: 96% 94% 98% 99% Weight: Height: EXAM GEN: NAD, pleasant, cooperative CVS: RRR, no carotid bruit CHEST: No signs of resp distress, on room air ABD: Soft, NTTP NEURO MENTAL STATUS: AAOx3, memory intact, fund of knowledge appropriate LANG/SPEECH: Naming and repetition intact, fluent, follows 3-stepcommands CRANIAL NERVES: II: Pupils equal and reactive, no RAPD, no VF deficits, normal fundus III, IV, : EOM intact, no gaze preference or deviation, nonystagmus. V: normal sensation in V1, V2, and V3 segments bilaterally VII: no asymmetry, no nasolabial fold flattening VIII: normal hearing to speech IX, X: normal palatal elevation, no uvular deviation XI: 5/5 head turn and 5/5 shoulder shrug bilaterally XII: midline tongue protrusion MOTOR: 5/5 muscle power in Rt shoulder abductors/adductors, elbowflexors/extensors, wrist flexors/extensors, finger abductors/adductors.5/5 in Rt hip flexors/extensors, knee flexors/extensors, ankledorsiflexors and planter flexors. 5/5 muscle power in Lt shoulder abductors/adductors, elbowflexors/extensors, wrist flexors/extensors, finger abductors/adductors.5/5 in Lt hip flexors/extensors, knee flexors/extensors, ankledorsiflexors and planter flexors. REFLEXES: 2/4 throughout, bilateral flexor planter response, no Isaacs's,no clonus SENSORY: Normal to touch, pinprick, vibration, temp all limbs No hemineglect, no extinction to double sided stimulation (visual &tactile) Romberg absent COORD: Normal finger to nose and heel to lees, no tremor, no dysmetria STATION: normal stance, no truncal ataxia GAIT: Normal; patient able to tip-toe, heel-walk. A1c: Lab Results Component Value Date HGBA1C 7.1 (H) 12/02/2019 HGBA1C 7.6 (H) 10/10/2019 HGBA1C 9.0 (H) 08/11/2019 Lipid panel Lab Results Component Value Date CHOLESTEROL 113 12/02/2019 Lab Results Component Value Date TRIG 103 12/02/2019 Lab Results Component Value Date HDL 37 (L) 12/02/2019 Lab Results Component Value Date LDLCALC 55 12/02/2019 UDS: No results found for: CORDBUPRENO, CORDFENT, CORDMETHAD, CORDOXYCOD,CORDAMPHET, CORDCOCAINE, CORDACETYL, CORDMARIJ EKG/Telemetry: No results found for this or any previous visit. No results found for this or any previous visit. No results found for this or any previous visit. 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 CT Head without contrast: Results for orders placed during the hospital encounter of 12/01/19 CT HEAD WO CONTRAST Narrative CT HEAD WO CONTRAST 12/01/2019 6:20 PM CLINICAL HISTORY: -right arm weakness, now resolved COMPARISON: None. PROCEDURE COMMENTS: Routine noncontrast head CT with multiplanar reconstructions. Automated exposure control for dose reduction wasused. CTDIvol: 58.7 mGy. DLP: 1038 mGy-cm. FINDINGS: HEMORRHAGE: No evidence of acute intracranial hemorrhage. MASS EFFECT / MASS LESION: No mass effect. There is no evidence of an intracranial mass or extraaxial fluid collection. ACUTE ISCHEMIC CHANGE: None. CHRONIC ISCHEMIC CHANGE: None. PARENCHYMA: Baer-white differentiation is preserved. Partially emptysella. The brain parenchyma is otherwise within normal limits for age. VENTRICLES: Normal caliber and morphology. OTHER: The visualized calvarium, skull base, orbits and extracranialsoft tissues are normal. The visualized paranasal sinuses and mastoid air cellsare clear. Prominent bilateral internal carotid calcifications. Impression No acute intracranial abnormality. - CTA head and neck with contrast: No results found for this or any previous visit. No results found for this or any previous visit. Results for orders placed during the hospital encounter of 12/01/19 CT ANGIOGRAM HEAD AND NECK W CONTRAST Narrative CTA HEAD AND NECK WITH CONTRAST, 12/01/2019 6:21 PM CLINICAL HISTORY: -right arm weakness now resolved, occured about 1 hourago COMPARISON: Head CT from this evening. PROCEDURE COMMENTS: Following the intravenous administration of 75 mLIsovue 370, multi-detector helical scanning performed and multiplanarreconstructions generated per protocol. Scan range extended from the aortic arch to thetop of the head. Review included 3D MIP reconstructions. Automated exposurecontrol for dose reduction was used. CTDIvol: 2.7 - 56.0 mGy. DLP: 402 mGy-cm. FINDINGS: Poor arterial bolus. The majority of the administered contrast material stuck in the venous side circulation and pulmonary circulation. CTA NECK: GREAT VESSELS: Atherosclerotic calcifications are present. Bilateralsubclavian arteries appear patent. Bilateral common carotid arteries appear patentwith mild atherosclerotic calcifications. RIGHT ICA: No stenosis by NASCET criteria at the carotid bifurcation. Atherosclerotic calcifications are present at the bulb but do not appearto be flow-limiting. LEFT ICA: No stenosis by NASCET criteria at the carotid bifurcation. Atherosclerotic calcifications are present at the bulb but do not appearto be flow-limiting. VERTEBRAL ARTERIES: Suspected occlusion of the proximal LEFT vertebralartery with very poor contrast opacification. Distal reconstitution. RIGHTvertebral artery appears patent to the level of the basilar artery. CTA HEAD: Basilar artery and proximal posterior cerebral arteries arepatent. Suboptimal assessment of the peripheral posterior cerebral circulation.Heavy calcifications of the cavernous carotid arteries. Flow limiting stenosiscould be present bilaterally. Supraclinoid carotids appear patent bilaterally.No MCA or ELISABETH occlusion. No aneurysm identified. OTHER: Advanced degenerative changes of the spine are present. Findingsrelated to prior sternotomy are partially imaged. Impression Very technically limited CT angiographic evaluation asdetailed above. LEFT vertebral artery may be occluded with distal reconstitution.Heavy calcification of the cavernous carotid arteries is noted orflow-limiting stenosis may be present. The central supraclinoid vasculature appearspatent. - MRI brain without contrast: Results for orders placed during the hospital encounter of 12/01/19 MRI BRAIN WO CONTRAST Narrative MRI BRAIN WITHOUT CONTRAST, 12/02/2019 8:00 AM CLINICAL HISTORY: -TIA, 15 minutes right arm weakness and numbness -Ischemic Stroke COMPARISON: Head CT and the head/neck CTA from last evening. Nocomparison brain MRI available. PROCEDURE COMMENTS: Multiplanar multiecho MR imaging of the brainincluding standard spin echo and diffusion sequences. FINDINGS: Midline structures normally formed. No Chiari malformation. Ventriclesnormal. No abnormal parenchymal signal. No evidence of acute stroke, mass, or hemorrhage. Normal diffusion imaging. Absent flow void included distalcervical aspect and proximal intradural aspect of the left vertebral artery which demonstrates a normal flow void regional to the vertebral confluence,consistent with proximal occlusion and distal reconstitution as seen on thecomparison CTA. Major vascular flow voids otherwise preserved, suggesting patency. Minimal mucosal thickening in the bases of the maxillary sinuses and tinymucous retention cyst posteriorly in the base of the right maxillary sinus.Minimal bilateral ethmoid sinus mucosal thickening. No significant paranasal sinusor mastoid opacification. Orbits unremarkable. Apparent small mass in thecaudal aspect of the right parotid gland measuring about 2.2 cm. Moderateleft-sided facet arthropathy and a tiny associated facet joint effusion at C3-4 aswell as mild disc bulging at this level. Bony fusion of the left facet joint andC2-3. Impression Occluded left vertebral artery. No infarct or otherintracranial abnormality. Right parotid gland mass as described. Consider soft tissueneck CT for further evaluation. MRA head and neck: No results found for this or any previous visit. : No results found for this or any previous visit. Carotid US: Results for orders placed during the hospital encounter of 12/01/19 [facility] CAROTID DUPLEX BILATERAL Impression CONCLUSIONS Stenosis in bilateral Proximal ICA at 1-39%. Vertebral arteries are patent demonstrating antegrade flow, bilaterally. Left vertebral flow is low, possibly due to proximal occlusion that isseen on CT. Echocardiogram: Results for orders placed during the hospital encounter of 12/01/19 [facility] ECHOCARDIOGRAM COMPLETE W DOPPLER AND COLOR FLOW MAPPING Impression CONCLUSIONS Left Ventricular ejection fraction is estimated at 45-50%. Mild concentric hypertrophy. Basal Inferior segment is Hypokinetic . Right ventricle not well visualized. Normal left atrial size. Normal size aortic root and proximal ascending aorta. No hemodynamically signiifcant valve ds No results found for this or any previous visit. No results found for this or any previous visit. GLUCOSE METER POC Routine 12/01/2019 10:09 PM EDT ECG AND WAVEFORMS - TELEMETRY Routine 12/01/2019 9:56 PM EDT ECG AND WAVEFORMS - TELEMETRY Routine 12/01/2019 9:48 PM EDT ADMIT Routine 12/01/2019 9:25 PM EDT TROPONIN-T HIGH SENSITIVITY 2HR Timed 12/01/2019 8:19 PM EDT ADMIT STAT 12/01/2019 8:[address] ANGIOGRAM HEAD AND NECK W CONTRAST STAT 12/01/2019 6:[address] HEAD WO CONTRAST STAT 12/01/2019 6:20 PM EDT EK EKG 12 LEAD STAT 12/01/2019 4:35 PM EDT SALINE LOCK IV STAT 12/01/2019 4:35 PM EDT TROPONIN-T HIGH SENSITIVITY BASELINE W/ REFLEX STAT 12/01/2019 4:25 PM EDT PT / INR STAT 12/01/2019 4:25 PM EDT BASIC METABOLIC PANEL STAT 12/01/2019 4:25 PM EDT CBC WITH DIFF STAT 12/01/2019 4:25 PM EDT EXTRA MINT GREEN LI Routine 12/01/2019 4:25 PM EDT EXTRA MINT GREEN LI Routine 12/01/2019 4:25 PM EDT EXTRA LIGHT BLUE Routine 12/01/2019 4:25 PM EDT EXTRA LAVENDER Routine 12/01/2019 4:25 PM EDT ED RAINBOW DRAW Routine 12/01/2019 4:25 PM EDT SCANNED RHYTHM STRIPS 11/24/2019 4:29 PM EDT GLUCOSE METER POC Routine 11/21/2019 11:48 AM EDT GLUCOSE METER POC Routine 11/21/2019 7:20 AM EDT GLUCOSE METER POC Routine 11/20/2019 9:29 PM EDT IP CONSULT TO NUTRITION Routine 11/20/2019 6:42 PM EDT Procedure Note - Cammy Celaya RD,LD - 11/21/2019 9:25 AM EDTThis note is in progress. Consult received per nursing requesting clarification of milk allergy aslisted in Epic. Spoke to pt who states he avoids milk to drink, cheese andice-cream stating they make his throat clog up and cause indigestion. Hestates his allergy is NOT life threatening. Pt can tolerate butter andbaked goods which contain milk. He is ordering his meals this admissionand states he can manage his milk allergy on his own. Dietary notified toavoid milk to drink, cheese and ice-cream only per conversation with pt.Nutrition screen with score of 0. RD will not actively follow, but willremain available as needed. Melvi Celaya RD, LD 11/21/2019 GLUCOSE METER POC Routine 11/20/2019 6:27 PM EDT ADMIT Routine 11/20/2019 6:17 PM EDT PATHOLOGY TISSUE REQUEST Routine 11/20/2019 3:18 PM EDT BPH with obstruction/lower urinary tract symptoms INTRAOP AIRWAY PLACEMENT Routine 11/20/2019 2:43 PM EDT CYSTOSCOPY TRANSURETHRAL RESECTION PROSTATE - FULGURATION/EVACUATION OF CLOT 11/20/2019 2:32 PM EDT BPH with obstruction/lower urinary tract symptoms Special Needs L/M to sched COVID RS 11/05 GLUCOSE METER POC Routine 11/20/2019 12:10 PM EDT CORONAVIRUS 2019 Routine 11/16/2019 2:45 PM EDT Pre-op testing Encounter for laboratory testing for COVID-19 virus SEP URINALYSIS POC Routine 10/27/2019 11:26 AM EDT BPH with obstruction/lower urinary tract symptoms POCT BLADDER SCAN Routine 10/27/2019 11:25 AM EDT BPH with obstruction/lower urinary tract symptoms COMPREHENSIVE METABOLIC PANEL Routine 10/10/2019 9:09 AM EDT Annual physical exam CBC WITH DIFF Routine 10/10/2019 9:09 AM EDT Annual physical exam LIPID SCREEN Routine 10/10/2019 9:09 AM EDT Annual physical exam PROSTATE SPECIFIC ANTIGEN (SCREENING) Routine 10/10/2019 9:09 AM EDT Encounter for screening for malignant neoplasm of prostate Annual physical exam C-PEPTIDE Routine 10/10/2019 9:09 AM EDT Uncontrolled type 2 diabetes mellitus with hyperglycemia (HCC) Vitamin B12 deficiency Vitamin D deficiency Dyslipidemia associated with type 2 diabetes mellitus (HCC) C-REACTIVE PROTEIN Routine 10/10/2019 9:09 AM EDT Uncontrolled type 2 diabetes mellitus with hyperglycemia (HCC) Vitamin B12 deficiency Vitamin D deficiency Dyslipidemia associated with type 2 diabetes mellitus (HCC) COMPREHENSIVE METABOLIC PANEL Routine 10/10/2019 9:09 AM EDT Uncontrolled type 2 diabetes mellitus with hyperglycemia (HCC) Vitamin B12 deficiency Vitamin D deficiency Dyslipidemia associated with type 2 diabetes mellitus (HCC) HEMOGLOBIN A1C Routine 10/10/2019 9:09 AM EDT Uncontrolled type 2 diabetes mellitus with hyperglycemia (HCC) Vitamin B12 deficiency Vitamin D deficiency Dyslipidemia associated with type 2 diabetes mellitus (HCC) FRUCTOSAMINE Routine 10/10/2019 9:09 AM EDT Uncontrolled type 2 diabetes mellitus with hyperglycemia (HCC) Vitamin B12 deficiency Vitamin D deficiency Dyslipidemia associated with type 2 diabetes mellitus (HCC) VITAMIN D 25 HYDROXY Routine 10/10/2019 9:09 AM EDT Uncontrolled type 2 diabetes mellitus with hyperglycemia (HCC) Vitamin B12 deficiency Vitamin D deficiency Dyslipidemia associated with type 2 diabetes mellitus (HCC) VITAMIN B12 LEVEL Routine 10/10/2019 9:09 AM EDT Uncontrolled type 2 diabetes mellitus with hyperglycemia (HCC) Vitamin B12 deficiency Vitamin D deficiency Dyslipidemia associated with type 2 diabetes mellitus (HCC) POCT BLADDER SCAN Routine 09/29/2019 10:22 AM EDT Incomplete bladder emptying SEP URINALYSIS POC Routine 09/29/2019 9:55 AM EDT BPH with obstruction/lower urinary tract symptoms XR SHOULDER BILATERAL 3 VIEWS Routine 09/03/2019 2:04 PM EDT Bilateral shoulder pain, unspecified chronicity MICROALBUMIN/CREATININ E RATIO URINE Routine 08/11/2019 4:30 PM EDT Uncontrolled type 2 diabetes mellitus with hyperglycemia (HCC) Dyslipidemia associated with type 2 diabetes mellitus (HCC) Vitamin D deficiency Vitamin B12 deficiency FRUCTOSAMINE Routine 08/11/2019 4:30 PM EDT Uncontrolled type 2 diabetes mellitus with hyperglycemia (HCC) Dyslipidemia associated with type 2 diabetes mellitus (HCC) Vitamin D deficiency Vitamin B12 deficiency C-REACTIVE PROTEIN Routine 08/11/2019 4:30 PM EDT Uncontrolled type 2 diabetes mellitus with hyperglycemia (HCC) Dyslipidemia associated with type 2 diabetes mellitus (HCC) Vitamin D deficiency Vitamin B12 deficiency COMPREHENSIVE METABOLIC PANEL Routine 08/11/2019 4:30 PM EDT Uncontrolled type 2 diabetes mellitus with hyperglycemia (HCC) Dyslipidemia associated with type 2 diabetes mellitus (HCC) Vitamin D deficiency Vitamin B12 deficiency HEMOGLOBIN A1C Routine 08/11/2019 4:30 PM EDT Uncontrolled type 2 diabetes mellitus with hyperglycemia (HCC) Dyslipidemia associated with type 2 diabetes mellitus (HCC) Vitamin D deficiency Vitamin B12 deficiency VITAMIN D 25 HYDROXY Routine 08/11/2019 4:30 PM EDT Uncontrolled type 2 diabetes mellitus with hyperglycemia (HCC) Dyslipidemia associated with type 2 diabetes mellitus (HCC) Vitamin D deficiency Vitamin B12 deficiency VITAMIN B12 LEVEL Routine 08/11/2019 4:30 PM EDT Uncontrolled type 2 diabetes mellitus with hyperglycemia (HCC) Dyslipidemia associated with type 2 diabetes mellitus (HCC) Vitamin D deficiency Vitamin B12 deficiency POCT URINALYSIS DIPSTICK Routine 06/27/2019 1:33 PM EDT 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) Other male erectile dysfunction Uncontrolled type 2 diabetes mellitus with hyperglycemia (HCC) POCT URINALYSIS DIPSTICK Routine 05/09/2019 9:29 AM EST Incomplete emptying of bladder BPH with obstruction/lower urinary tract symptoms POCT BLADDER SCAN Routine 05/09/2019 9:25 AM EST Incomplete emptying of bladder BPH with obstruction/lower urinary tract symptoms THYROID STIMULATING HORMONE Routine 04/16/2019 10:36 AM EST Dyslipidemia associated with type 2 diabetes mellitus (HCC) VITAMIN B12 LEVEL Routine 04/16/2019 10:36 AM EST Vitamin B12 deficiency VITAMIN D 25 HYDROXY Routine 04/16/2019 10:36 AM EST Vitamin D deficiency MICROALBUMIN/CREATININ E RATIO URINE Routine 04/16/2019 10:36 AM EST Dyslipidemia associated with type 2 diabetes mellitus (HCC) FRUCTOSAMINE Routine 04/16/2019 10:36 AM EST Dyslipidemia associated with type 2 diabetes mellitus (HCC) HEMOGLOBIN A1C Routine 04/16/2019 10:36 AM EST Dyslipidemia associated with type 2 diabetes mellitus (HCC) URIC ACID Routine 04/16/2019 10:36 AM EST Dyslipidemia associated with type 2 diabetes mellitus (HCC) COMPREHENSIVE METABOLIC PANEL Routine 04/16/2019 10:36 AM EST Dyslipidemia associated with type 2 diabetes mellitus (HCC) C-REACTIVE PROTEIN Routine 04/16/2019 10:36 AM EST Dyslipidemia associated with type 2 diabetes mellitus (HCC) APOLIPOPROTEIN B-REF LAB Routine 04/16/2019 10:36 AM EST Dyslipidemia associated with type 2 diabetes mellitus (HCC) LIPID PANEL REFLEX Routine 04/16/2019 10:36 AM EST Dyslipidemia associated with type 2 diabetes mellitus (HCC) POCT BLADDER SCAN Routine 04/07/2019 2:32 PM EST Overactive bladder Incomplete emptying of bladder POCT URINALYSIS DIPSTICK Routine 04/07/2019 2:16 PM EST Overactive bladder EC ECHOCARDIOGRAM COMPLETE W DOPPLER AND COLOR FLOW MAPPING Routine 03/14/2019 11:41 AM EST Ischemic heart disease 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, unspecified vessel or lesion type S/P CABG x 3 Dizziness POCT EKG Routine 02/20/2019 10:25 AM EST Ischemic heart disease 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, unspecified vessel or lesion type CREATINE KINASE Routine 01/25/2019 11:15 AM EST Muscle pain THYROID STIMULATING HORMONE Routine 01/25/2019 11:15 AM EST Dyslipidemia associated with type 2 diabetes mellitus (HCC) APOLIPOPROTEIN B-REF LAB Routine 01/25/2019 11:15 AM EST Dyslipidemia associated with type 2 diabetes mellitus (HCC) LIPID PANEL REFLEX Routine 01/25/2019 11:15 AM EST Dyslipidemia associated with type 2 diabetes mellitus (HCC) VITAMIN B12 LEVEL Routine 01/25/2019 11:15 AM EST Vitamin B12 deficiency VITAMIN D 25 HYDROXY Routine 01/25/2019 11:15 AM EST Vitamin D deficiency C-PEPTIDE Routine 01/25/2019 11:15 AM EST Dyslipidemia associated with type 2 diabetes mellitus (HCC) FRUCTOSAMINE Routine 01/25/2019 11:15 AM EST Dyslipidemia associated with type 2 diabetes mellitus (HCC) HEMOGLOBIN A1C Routine 01/25/2019 11:15 AM EST Dyslipidemia associated with type 2 diabetes mellitus (HCC) COMPREHENSIVE METABOLIC PANEL Routine 01/25/2019 11:15 AM EST Dyslipidemia associated with type 2 diabetes mellitus (HCC) C-REACTIVE PROTEIN Routine 01/25/2019 11:15 AM EST Dyslipidemia associated with type 2 diabetes mellitus (HCC) XR SHOULDER LEFT 4 VIEWS Routine 01/25/2019 11:12 AM EST Chronic left shoulder pain PROSTATE SPECIFIC ANTIGEN (TUMOR MARKER) Routine 11/26/2018 4:59 PM EDT BPH with obstruction/lower urinary tract symptoms POCT BLADDER SCAN Routine 11/26/2018 3:19 PM EDT Incomplete bladder emptying URINE CULTURE (NO STAIN) Routine 10/25/2018 4:26 PM EDT Dysuria POCT URINALYSIS DIPSTICK Routine 10/25/2018 4:24 PM EDT Dysuria VITAMIN B12 LEVEL Routine 10/21/2018 3:48 PM EDT Dyslipidemia associated with type 2 diabetes mellitus (HCC) VITAMIN D 25 HYDROXY Routine 10/21/2018 3:48 PM EDT Vitamin D deficiency APOLIPOPROTEIN B-REF LAB Routine 10/21/2018 3:48 PM EDT Elevated lipoprotein(a) LIPID PANEL REFLEX Routine 10/21/2018 3:48 PM EDT Elevated lipoprotein(a) HEMOGLOBIN A1C Routine 10/21/2018 3:48 PM EDT Dyslipidemia associated with type 2 diabetes mellitus (HCC) C-PEPTIDE Routine 10/21/2018 3:48 PM EDT Dyslipidemia associated with type 2 diabetes mellitus (HCC) COMPREHENSIVE METABOLIC PANEL Routine 10/21/2018 3:48 PM EDT Dyslipidemia associated with type 2 diabetes mellitus (HCC) C-REACTIVE PROTEIN Routine 10/21/2018 3:48 PM EDT Dyslipidemia associated with type 2 diabetes mellitus (HCC) IRIS DIABETIC RETINOPATHY EXAM Routine 10/14/2018 5:11 PM EDT Type 2 diabetes mellitus without complication, unspecified whether fdc insulin use (HCC) POCT GLYCATED HEMOGLOBIN, TOTAL Routine 10/14/2018 5:03 PM EDT Uncontrolled type 2 diabetes mellitus with hyperglycemia (HCC) Type 2 diabetes mellitus without complication, unspecified 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 insulin use (HCC) POCT MICROALBUMIN Routine 10/14/2018 4:39 PM EDT Dyslipidemia associated with type 2 diabetes mellitus (HCC) PATHOLOGY TISSUE REQUEST Routine 09/20/2018 8:32 AM EDT Eosinophilic esophagitis ESOPHAGOGASTRODUODENOS COPY (ANESTHESIA) 09/20/2018 8:25 AM EDT Eosinophilic esophagitis GMED EGD Routine 09/20/2018 8:15 AM EDT GLUCOSE METER POC Routine 09/20/2018 8:11 AM EDT INTRAOP AIRWAY PLACEMENT Routine 09/20/2018 7:58 AM EDT ADRENOCORTICOTROPIC HORMONE -REF LAB Routine 07/29/2018 12:43 PM EDT Dyslipidemia associated with type 2 diabetes mellitus (HCC) CORTISOL Routine 07/29/2018 12:43 PM EDT Dyslipidemia associated with type 2 diabetes mellitus (HCC) T4, FREE (THYROXINE) Routine 07/29/2018 12:43 PM EDT Dyslipidemia associated with type 2 diabetes mellitus (HCC) THYROID STIMULATING HORMONE Routine 07/29/2018 12:43 PM EDT Dyslipidemia associated with type 2 diabetes mellitus (HCC) VITAMIN D 25 HYDROXY Routine 07/29/2018 12:43 PM EDT Vitamin D deficiency LACTIC ACID Routine 07/29/2018 12:43 PM EDT Dyslipidemia associated with type 2 diabetes mellitus (HCC) VITAMIN B12 LEVEL Routine 07/29/2018 12:43 PM EDT Dyslipidemia associated with type 2 diabetes mellitus (HCC) APOLIPOPROTEIN B-REF LAB Routine 07/29/2018 12:43 PM EDT Dyslipidemia associated with type 2 diabetes mellitus (HCC) LIPOPROTEIN (A)-REF LAB Routine 07/29/2018 12:43 PM EDT Dyslipidemia associated with type 2 diabetes mellitus (HCC) LIPID PANEL REFLEX Routine 07/29/2018 12:43 PM EDT Dyslipidemia associated with type 2 diabetes mellitus (HCC) GLUTAMIC ACID DECARBOXYLASE AB -REF LAB Routine 07/29/2018 12:43 PM EDT Dyslipidemia associated with type 2 diabetes mellitus (HCC) HEMOGLOBIN A1C Routine 07/29/2018 12:43 PM EDT Dyslipidemia associated with type 2 diabetes mellitus (HCC) C-PEPTIDE Routine 07/29/2018 12:43 PM EDT Dyslipidemia associated with type 2 diabetes mellitus (HCC) COMPREHENSIVE METABOLIC PANEL Routine 07/29/2018 12:43 PM EDT Dyslipidemia associated with type 2 diabetes mellitus (HCC) C-REACTIVE PROTEIN Routine 07/29/2018 12:43 PM EDT Dyslipidemia associated with type 2 diabetes mellitus (HCC) GLUCOSE METER POC Routine 07/17/2018 10:52 AM EDT INTRAOP AIRWAY PLACEMENT Routine 07/17/2018 10:17 AM EDT PATHOLOGY TISSUE REQUEST Routine 07/17/2018 10:14 AM EDT Pharyngoesophageal dysphagia ESOPHAGOGASTRODUODENOS COPY (ANESTHESIA) 07/17/2018 9:59 AM EDT Pharyngoesophageal dysphagia GMED EGD Routine 07/17/2018 9:45 AM EDT GLUCOSE METER POC Routine 07/17/2018 8:40 AM EDT VITAMIN D 25 HYDROXY Routine 07/04/2018 1:31 PM EDT Snoring DDD (degenerative disc disease), lumbar Gastroesophageal reflux disease without esophagitis Essential hypertension Other hyperlipidemia S/P CABG x 3 Uncontrolled type 2 diabetes mellitus with hyperglycemia (HCC) Vitamin B12 deficiency Vitamin D deficiency Ischemic heart disease TESTOSTERONE FREE, ADULT MALE -REF LAB Routine 07/04/2018 1:31 PM EDT Snoring DDD (degenerative disc disease), lumbar Gastroesophageal reflux disease without esophagitis Essential hypertension Other hyperlipidemia S/P CABG x 3 Uncontrolled type 2 diabetes mellitus with hyperglycemia (HCC) Vitamin B12 deficiency Vitamin D deficiency Ischemic heart disease TESTOSTERONE LEVEL TOTAL Routine 07/04/2018 1:31 PM EDT Snoring DDD (degenerative disc disease), lumbar Gastroesophageal reflux disease without esophagitis Essential hypertension Other hyperlipidemia S/P CABG x 3 Uncontrolled type 2 diabetes mellitus with hyperglycemia (HCC) Vitamin B12 deficiency Vitamin D deficiency Ischemic heart disease TSH REFLEX TO FT4 Routine 05/27/2018 2:42 PM EDT Type 2 diabetes mellitus without complication, without long-term current use of insulin (HCC) LIPID SCREEN Routine 05/27/2018 2:42 PM EDT Type 2 diabetes mellitus without complication, without long-term current use of insulin (HCC) HEMOGLOBIN A1C Routine 05/27/2018 2:42 PM EDT Type 2 diabetes mellitus without complication, without long-term current use of insulin (HCC) COMPREHENSIVE METABOLIC PANEL Routine 05/27/2018 2:42 PM EDT Type 2 diabetes mellitus without complication, without long-term current use of insulin (HCC) CBC WITH DIFF Routine 05/27/2018 2:42 PM EDT Type 2 diabetes mellitus without complication, without long-term current use of insulin (HCC) POCT BLADDER SCAN Routine 05/27/2018 10:54 AM EDT Benign non-nodular prostatic hyperplasia with lower urinary tract symptoms Incomplete bladder emptying Overactive bladder Uncontrolled type 2 diabetes mellitus with hyperglycemia (HCC) Yeast dermatitis of penis Phimosis Frequency of micturition Glucosuria POCT URINALYSIS DIPSTICK Routine 05/27/2018 10:53 AM EDT Benign non-nodular prostatic hyperplasia with lower urinary tract symptoms Incomplete bladder emptying Overactive bladder Uncontrolled type 2 diabetes mellitus with hyperglycemia (HCC) Yeast dermatitis of penis Phimosis Frequency of micturition Glucosuria IR 2 LEVEL DANNA RFA DESTROY LUM OR SAC FACET JNT NERVE Routine 05/10/2018 8:58 AM EST Spondylosis of lumbar region without myelopathy or radiculopathy URINALYSIS Routine 04/23/2018 9:31 AM EST Benign non-nodular prostatic hyperplasia with lower urinary tract symptoms Frequency of micturition Incomplete bladder emptying History of UTI 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 dysfunction Glucosuria Uncontrolled type 2 diabetes mellitus with hyperglycemia (HCC) URINE CULTURE (NO STAIN) Routine 04/23/2018 9:31 AM EST Benign non-nodular prostatic hyperplasia with lower urinary tract symptoms Frequency of micturition Incomplete bladder emptying History of UTI 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 dysfunction Glucosuria Uncontrolled type 2 diabetes mellitus with hyperglycemia (HCC) POCT URINALYSIS DIPSTICK Routine 04/10/2018 10:53 AM EST Benign non-nodular prostatic hyperplasia with lower urinary tract symptoms Weak urinary stream History of UTI Overactive bladder Urge incontinence Yeast dermatitis of penis Uncontrolled type 2 diabetes mellitus with hyperglycemia (HCC) Candidal balanitis Glucosuria Prostate cancer screening POCT GLYCATED HEMOGLOBIN, TOTAL Routine 03/21/2018 2:17 PM EST Controlled type 2 diabetes mellitus without complication, without long-term current use of insulin (HCC) IR 2 LEVEL BILATERAL MEDIAL BRANCH BLOCK LUM SAC Routine 03/07/2018 9:41 AM EST Spondylosis of lumbar region without myelopathy or radiculopathy IR 2 LEVEL BILATERAL MEDIAL BRANCH BLOCK LUM SAC Routine 12/06/2017 8:21 AM EDT Chronic pain syndrome Spondylosis of lumbar region without myelopathy or radiculopathy Sacroiliitis HCV QUANT W/RFLX TO GENOTYPE -REF LAB Routine 12/01/2017 9:03 AM EDT Hepatitis C antibody positive in blood URINE CULTURE (NO STAIN) Routine 12/01/2017 9:03 AM EDT Dysuria HEMOGLOBIN A1C Routine 11/25/2017 9:25 AM EDT Type 2 diabetes mellitus without complication, unspecified 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 insulin use (HCC) PROSTATE SPECIFIC ANTIGEN (TUMOR MARKER) Routine 11/25/2017 9:25 AM EDT Enlarged prostate HCV ANTIBODY SCREEN W/ REFLEX Routine 11/25/2017 9:25 AM EDT Annual physical exam TSH REFLEX TO FT4 Routine 11/25/2017 9:25 AM EDT Annual physical exam LIPID SCREEN Routine 11/25/2017 9:25 AM EDT Annual physical exam CBC WITH DIFF Routine 11/25/2017 9:25 AM EDT Annual physical exam COMPREHENSIVE METABOLIC PANEL Routine 11/25/2017 9:25 AM EDT Annual physical exam XR LUMBAR SPINE AP AND LATERAL Routine 11/06/2017 4:33 PM EDT Chronic pain syndrome Spondylosis of lumbar region without myelopathy or radiculopathy Sacroiliitis URINALYSIS Routine 10/11/2017 5:12 PM EDT Dysuria MICROALBUMIN/CREATININ E RATIO URINE Routine 10/11/2017 5:12 PM EDT Controlled type 2 diabetes mellitus without complication, without long-term current use of insulin (HCC) URINE CULTURE (NO STAIN) Routine 10/11/2017 5:12 PM EDT Dysuria INSULIN ANTIBODY -REF LAB Routine 10/04/2017 10:25 AM EDT Type 2 diabetes mellitus without complication, without long-term current use of insulin ([facility]) INSULIN FASTING Routine 10/04/2017 10:25 AM EDT Type 2 diabetes mellitus without complication, without long-term current use of insulin ([facility]) IR ULTRASOUND GUIDED VASCULAR ACCESS ALEXANDRA 09/24/2017 3:52 PM EDT IR PICC INSERTION EQUAL OR > 5 YEARS ALEXANDRA 09/24/2017 3:52 PM EDT GLUCOSE METER POC Routine 09/24/2017 12:09 PM EDT IP CONSULT TO UROLOGY Routine 09/24/2017 7:45 AM EDT Procedure Note - Rosalina Stark - 09/24/2017 8:07 AM EDTThis note is in progress. Perfect served text to Dr. Overton. [place] GLUCOSE METER POC Routine 09/24/2017 7:23 AM EDT GLUCOSE METER POC Routine 09/23/2017 9:08 PM EDT GLUCOSE METER POC Routine 09/23/2017 3:52 PM EDT GLUCOSE METER POC Routine 09/23/2017 11:19 AM EDT GLUCOSE METER POC Routine 09/23/2017 7:24 AM EDT GLUCOSE METER POC Routine 09/22/2017 8:53 PM EDT GLUCOSE METER POC Routine 09/22/2017 4:48 PM EDT IP CONSULT TO SOCIAL WORK Routine 09/22/2017 1:05 PM EDT GLUCOSE METER POC Routine 09/22/2017 11:22 AM EDT BLOOD CULTURE (NO STAIN) Routine 09/22/2017 10:17 AM EDT BLOOD CULTURE (NO STAIN) Routine 09/22/2017 10:16 AM EDT EC ECHOCARDIOGRAM COMPLETE W DOPPLER AND COLOR FLOW MAPPING Routine 09/22/2017 10:02 AM EDT GLUCOSE METER POC Routine 09/22/2017 7:44 AM EDT ECG AND WAVEFORMS - TELEMETRY Routine 09/22/2017 5:24 AM EDT GLUCOSE METER POC Routine 09/21/2017 9:01 PM EDT ECG AND WAVEFORMS - TELEMETRY Routine 09/21/2017 5:28 PM EDT GLUCOSE METER POC Routine 09/21/2017 4:31 PM EDT GLUCOSE METER POC Routine 09/21/2017 11:26 AM EDT GLUCOSE METER POC Routine 09/21/2017 8:01 AM EDT ECG AND WAVEFORMS - TELEMETRY Routine 09/21/2017 5:27 AM EDT GLUCOSE METER POC Routine 09/20/2017 8:29 PM EDT XR ABDOMEN AP ALEXANDRA 09/20/2017 7:57 PM EDT ECG AND WAVEFORMS - TELEMETRY Routine 09/20/2017 5:30 PM EDT GLUCOSE METER POC Routine 09/20/2017 5:30 PM EDT US RENAL AND BLADDER ALEXANDRA 09/20/2017 5:14 PM EDT HEMOGLOBIN A1C Routine 09/20/2017 2:58 PM EDT GLUCOSE METER POC Routine 09/20/2017 12:27 PM EDT IP CONSULT TO CARDIOLOGY Routine 09/20/2017 10:45 AM EDT Procedure Note - Jay Jay Hernandez MD - 09/20/2017 12:55 PM EDTThis note is in progress. Heart & Vascular Consult Note PATIENT: Jackie Abdi PCP: Omi Daly DO Primary Manager Council: Jeffy Fuentes M.D. Reason for consult: SOB, elevated trop, h/o CAD History provided by: EMR, patient History limited by: nothing I would like to thank Marlon Yarbrough MD for requesting me to see yourpt Jackie Abdi for cardiovascular consultation. HPI: Jackie Abdi is a 61 y.o. male who was admitted after presenting withsudden onset of shakes . Woke up in middle of night with chills, andshaking, feeling of couldn't catch breath. 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 Left ventricular ejection fraction is in the normal range. Localized inferobasilar hypokinesis Left ventricular wall thickness is normal. Grade 1 diastolic dysfunction with normal LV filling pressure. Left atrial volume index is estimated to be 29 ml/m2. Normal left atrial size. Trace to mild tricuspid regurgitation. RVSP estimated to be: 26 mmHg + JVP. NM: 07/2016 Suggests ischemia in small area of mid to distal inferior wall.(addressed at office visit felt to be consistent with previous bypasssurgery and echo results with addition of Imdur) Cath: 08/2013 Left ventricular pressure 120/5 mmHg Aortic pressure 120/65 mmHg Coronary anatomy: Left coronary calcification. The left main coronary artery has a distal 80% stenosis With extensioninto the Proximal LAD. Left anterior descending artery has wall irregularity throughout. Circumflex artery has 40% proximal stenosis. The right coronary artery is a dominant vessel with 99% stenosis in themid descending limb. Left ventriculogram shows ejection fraction of 50-55% with infero-basilarhypokinesis. Past Medical History Past Medical History: Diagnosis Date DM (diabetes mellitus) ([facility]) 02/12/2010 GERD (gastroesophageal reflux disease) HTN (hypertension) 02/12/2010 pt states never had HTN Hyperlipidemia RI (myocardial infarction) ([facility]) Medication aspirin 81 mg Oral Daily cefTRIAXone (ROCEPHIN) IV (Orderable) 2 g Intravenous Daily cholecalciferol (vitamin D3) Oral Daily cyanocobalamin 1,000 mcg Oral Daily enoxaparin 40 mg Subcutaneous Daily exenatide microspheres 2 mg Subcutaneous Q7 Days glimepiride 4 mg Oral Daily WM insulin aspart U-100 1-10 Units Subcutaneous QID WM isosorbide mononitrate 30 mg Oral QAM metFORMIN XR 1,000 mg Oral BID WM metoprolol 50 mg Oral BID Multivits,Stress Formula-Zinc 1 Tab Oral Daily acetaminophen, dextrose, glucagon (human recombinant), ibuprofen, morphineOR morphine, ondansetron OR ondansetron Past Surgical History Past Surgical History: Procedure Laterality Date ANGIOPLASTY 1990 CARDIAC SURGERY N/A 08/25/2013 CORONARY ARTERY BYPASS GRAFTS X 3 USING BILATERAL SAPHENOUS VEIN X 2 ANDLEFT INTERNAL MAMMARY ARTERY BYPASS GRAFT X 1; Surgeon: Richard Jo MD; Location: [facility] OR; Service: Open Heart Allergy Allergies Allergen Reactions Milk Family History Family History Problem Relation Age of Onset Cancer Mother Lymph Node Cancer Cancer Father Lung Cancer Other Brother Back problems Other Sister Unknown health conditions Social History Social History Substance Use Topics Smoking status: Never Smoker Smokeless tobacco: Never Used Alcohol use No Comment: NO Review of Systems No headache, no LOC, no fever, no chills, no cough, no nausea or vomitingor diarrhea, no burning micturation, no seizures, all other symptomsnegative and reviewed by me. Objective: Telemetry: SR to sinus tach with artifact BP 129/52 (BP Location: Right arm, Patient Position: Sitting) Pulse 87 Temp 98.4 F (36.9 C) (Oral) Resp 16 Ht 5' 9 (1.753 m) Wt 240lb (108.9 kg) SpO2 100% BMI 35.44 kg/m I/O 24 hours: Intake/Output Summary (Last 24 hours) at 09/20/17 1255 Last data filed at 09/20/17 1058 Gross per 24 hour Intake 360 ml Output 0 ml Net 360 ml Exam: Pt in no distress. Alert and oriented x 3 Mood and affect appropriate Skin warm and dry Head: Atraumatic, normocephalic Neck: No JVD, supple CVS: S1, S2 RRR RS: no rales, no rhonchi Abd: soft, non-tender, +BS Ext: no edema Diagnostic tests Pertinent laboratory test have been reviewed The most recent cardiovascular imaging [facility] werereviewed at time of consultation Labs BMP/CMP No results found for: NA, K, CL, CO2, ANIONGAP, CALCIUM, GLU, BUN,CREATININE, ALBUMIN, LABBILI, AST, ALT, GFRAFRAM, GFRNONAFRAM CBC No results found for: WBC, RBC, HGB, HCT, MCV, MCH, MCHC, RDW, PLT, MPV INR No results found for: INR Magnesium Level No results found for: MG Troponin-T No results found for: TROPT D-Dimer No results found for: DDIMER Assessment & Plan Active Hospital Problems Diagnosis *Acute pyelonephritis Elevated troponin SOB (shortness of breath) Controlled type 2 diabetes mellitus without complication (HCC) S/P CABG x 3 CAD (coronary artery disease) Ischemic heart disease Hyperlipidemia GERD (gastroesophageal reflux disease) HTN (hypertension) Acute pyelonephritis -per attending Elevated trop -<0.01, 0.09, 0.08 -EKG with no acute ischemic changes -no chest pain CAD -s/p CABG 2013 -on ASA, imdur, BB, 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 Hernandez Thank you for the consult. We will follow with you. Trang Villanueva, GRADUATE TEACHER EDUCATION 09/20/2017 Addendum: I personally interviewed and examined the above patient. I have reviewedthe PMH, Social Hx, and ROS. I agree with the outlined assessment andplan as noted. Pt presented with fever and shaking rigors with sob. Noted to haveevidence of UTI. No chest pain or anginal type symptoms. Noted to havemildly elevated Troponin. EKG: sinus tach with underlying LBBB and frequent PVC's. Exam: GENERAL APPEARANCE: In no acute distress NECK: No JVD, No Bruit. Carotid upstrokes are full. RESPIRATORY: Normal breath sounds bilaterally. No rales or wheezing HEART: Normal S1, S2- No S3, S4. No Murmur, rub or gallop. ABDOMEN: Soft, nontender. Bowel sounds are normoactive. EXTREMITIES: No edema- No cyanosis. Good capillary refill. Assessment: Elevated Troponin - very mild to 0.09 without progression or anginalsymptoms. CAD s/p CABG 2013 - very small area of ischemia on stress in 07/27. UTI / Pyelonephritis Hypertension Chronic LBBB Hyperlipidemia Hypertension Plan: Would continue current cardiac regimen which appears stable. At this point no plans for additional cardiac testing TROPONIN-T Timed 09/20/2017 10:42 AM EDT SCANNED EKG 09/20/2017 9:08 AM EDT ECG AND WAVEFORMS - TELEMETRY Routine 09/20/2017 8:38 AM EDT REPEAT LACTIC ACID STAT 09/20/2017 6:49 AM EDT TROPONIN-T STAT 09/20/2017 6:49 AM EDT HEPATIC FUNCTION PANEL STAT 8 4:27 AM EDT GLUCOSE METER POC Routine 09/20/2017 4:26 AM EDT XR CHEST PA AND LATERAL ALEXANDRA 09/20/2017 4:20 AM EDT URINALYSIS STAT 09/20/2017 4:19 AM EDT URINE CULTURE (NO STAIN) STAT 09/20/2017 4:19 AM EDT EXTRA BAER URINE CX STAT 09/20/2017 4:19 AM EDT LACTIC ACID Routine 09/20/2017 4:13 AM EDT TROPONIN-T STAT 09/20/2017 4:12 AM EDT BASIC METABOLIC PANEL STAT 09/20/2017 4:12 AM EDT CBC WITH DIFF STAT 09/20/2017 4:12 AM EDT BLOOD CULTURE NUCLEIC ACID (GRAM NEG) Routine 09/20/2017 4:12 AM EDT BLOOD CULTURE (NO STAIN) STAT 09/20/2017 4:12 AM EDT BLOOD CULTURE (NO STAIN) STAT 09/20/2017 4:12 AM EDT SALINE LOCK IV STAT 09/20/2017 3:57 AM EDT EK EKG 12 LEAD STAT 09/20/2017 3:48 AM EDT THYROID STIMULATING HORMONE Routine 11/02/2016 9:22 AM EDT Type 2 diabetes mellitus with complication, without long-term current use of insulin (HCC) MICROALBUMIN/CREATININ E RATIO URINE Routine 11/02/2016 9:22 AM EDT Type 2 diabetes mellitus with complication, without long-term current use of insulin (HCC) HEMOGLOBIN A1C Routine 11/02/2016 9:22 AM EDT Type 2 diabetes mellitus with complication, without long-term current use of insulin (HCC) COMPREHENSIVE METABOLIC PANEL Routine 11/02/2016 9:22 AM EDT Type 2 diabetes mellitus with complication, without long-term current use of insulin (HCC) POCT HEMOCCULT 1-3 CARDS Routine 09/19/2016 11:59 AM EDT Screening for colon cancer SCANNED RADIOLOGY REPORT 08/03/2016 10:29 AM EDT POCT EKG Routine 08/03/2016 10:22 AM EDT Essential hypertension Ischemic heart disease Chest pain, unspecified type NM MYOCARDIAL PERFUSION SPECT STRESS AND REST Routine 08/01/2016 3:24 PM EDT Chest discomfort Essential hypertension Ischemic heart disease S/P CABG x [address] STRESS TEST LEXISCAN Routine 08/01/2016 3:24 PM EDT Chest discomfort Essential hypertension Ischemic heart disease S/P CABG x 3 LDL, CALCULATED Routine 07/27/2016 3:35 PM EDT LIPID PANEL REFLEX Routine 07/27/2016 3:35 PM EDT Hyperlipidemia associated with type 2 diabetes mellitus (HCC) HEMOGLOBIN A1C Routine 07/27/2016 3:35 PM EDT Type 2 diabetes mellitus without complication, without long-term current use of insulin (HCC) BASIC METABOLIC PANEL Routine 07/27/2016 3:35 PM EDT Type 2 diabetes mellitus without complication, without long-term current use of insulin (HCC) EC ECHOCARDIOGRAM COMPLETE W DOPPLER AND COLOR FLOW MAPPING Routine 07/27/2016 3:15 PM EDT Chest discomfort Essential hypertension Ischemic heart disease S/P CABG x 3 POCT EKG Routine 07/20/2016 1:59 PM EDT Encounter to establish care with new doctor Chest discomfort POCT MICROALBUMIN Routine 04/04/2016 HEMOGLOBIN A1C Routine 03/30/2016 4:10 PM EST Type 2 diabetes mellitus with complication (HCC) MICROALBUMIN/CREATININ E RATIO URINE Routine 10/11/2015 4:55 PM EDT Type 2 diabetes mellitus without complication (HCC) HEMOGLOBIN A1C Routine 10/11/2015 4:55 PM EDT Type 2 diabetes mellitus without complication (HCC) COMPREHENSIVE METABOLIC PANEL Routine 10/11/2015 4:55 PM EDT Type 2 diabetes mellitus without complication (HCC) POCT URINALYSIS DIPSTICK Routine 09/23/2015 10:25 AM EDT Dysuria THYROID STIMULATING HORMONE Routine 09/18/2015 11:42 AM EDT Other fatigue TESTOSTERONE LEVEL TOTAL Routine 09/18/2015 11:42 AM EDT Other fatigue T4, FREE (THYROXINE) Routine 09/18/2015 11:42 AM EDT Other fatigue T3 FREE Routine 09/18/2015 11:42 AM EDT Other fatigue HEMOGLOBIN A1C Routine 09/18/2015 11:42 AM EDT Other fatigue COMPREHENSIVE METABOLIC PANEL Routine 09/18/2015 11:42 AM EDT Other fatigue CBC Routine 09/18/2015 11:42 AM EDT Other fatigue HEMOGLOBIN A1C Routine 07/06/2015 1:16 PM EDT Controlled type 2 diabetes mellitus without complication (HCC) PROSTATE SPECIFIC ANTIGEN (SCREENING) Routine 06/11/2015 10:30 AM EDT Screening PSA (prostate specific antigen) POCT URINALYSIS DIPSTICK Routine 06/11/2015 9:34 AM EDT Dysuria POCT HEMOCCULT 1-3 CARDS Routine 05/03/2015 12:03 PM EST Screening for colon cancer POCT URINALYSIS DIPSTICK Routine 05/01/2015 9:33 AM EST Dysuria VITAMIN D 25 HYDROXY Routine 04/06/2015 2:18 PM EST Vitamin D deficiency VITAMIN B12 LEVEL Routine 04/06/2015 2:18 PM EST Vitamin B12 deficiency HEMOGLOBIN A1C Routine 04/06/2015 2:18 PM EST Controlled type 2 diabetes mellitus without complication (HCC) LDL, CALCULATED Routine 12/24/2014 9:29 AM EDT VITAMIN B12 LEVEL Routine 12/24/2014 9:29 AM EDT Vitamin B12 deficiency LIPID PANEL REFLEX Routine 12/24/2014 9:29 AM EDT Hyperlipidemia HEMOGLOBIN A1C Routine 12/24/2014 9:29 AM EDT Controlled type 2 diabetes mellitus without complication (HCC) BASIC METABOLIC PANEL Routine 12/24/2014 9:29 AM EDT Controlled type 2 diabetes mellitus without complication (HCC) POCT MICROALBUMIN Routine 12/03/2014 4:10 PM EDT Controlled type 2 diabetes mellitus without complication (HCC) POCT GLYCATED HEMOGLOBIN, TOTAL Routine 12/03/2014 4:09 PM EDT Controlled type 2 diabetes mellitus without complication (HCC) MICROALBUMIN/CREATININ E RATIO URINE Routine 09/23/2014 8:14 AM EDT Controlled type 2 diabetes mellitus without complication (HCC) COMPREHENSIVE METABOLIC PANEL Routine 09/23/2014 8:03 AM EDT Hypokalemia VITAMIN D 25 HYDROXY Routine 09/22/2014 11:36 AM EDT Vitamin D deficiency VITAMIN B12 LEVEL Routine 09/22/2014 11:36 AM EDT Vitamin B12 deficiency HEMOGLOBIN A1C Routine 09/22/2014 11:36 AM EDT Uncontrolled type 2 diabetes mellitus with microalbuminuria or microproteinuria (HCC) VITAMIN D 25 HYDROXY Routine 04/18/2014 8:54 AM EST Vitamin D deficiency VITAMIN B12/ FOLIC ACID Routine 04/18/2014 8:54 AM EST Vitamin D deficiency PROSTATE SPECIFIC ANTIGEN (SCREENING) Routine 04/18/2014 8:54 AM EST Routine general medical examination at a [facility] LIPID SCREEN Routine 04/18/2014 8:54 AM EST Hyperlipidemia HEPATIC FUNCTION PANEL Routine 5 8:54 AM EST Hyperlipidemia BASIC METABOLIC PANEL Routine 04/18/2014 8:54 AM EST HTN (hypertension) Hyperlipidemia POCT GLYCATED HEMOGLOBIN, TOTAL Routine 04/18/2014 8:50 AM EST DM (diabetes mellitus), type 2, uncontrolled (HCC) LDL, CALCULATED Routine 01/31/2014 9:25 AM EST LIPID PANEL REFLEX Routine 01/31/2014 9:25 AM EST Hyperlipidemia HEPATIC FUNCTION PANEL Routine 4 9:25 AM EST Hyperlipidemia POCT GLYCATED HEMOGLOBIN, TOTAL Routine 01/31/2014 9:11 AM EST DM (diabetes mellitus), type 2, uncontrolled (HCC) BASIC METABOLIC PANEL Routine 10/28/2013 1:29 PM EDT DM (diabetes mellitus), type 2, uncontrolled (HCC) POCT GLUCOSE Routine 09/01/2013 3:44 PM EDT DM (diabetes mellitus), type 2, uncontrolled (HCC) SCANNED PRE/POST PROCEDURES 09/01/2013 2:36 PM EDT SCANNED ANESTHESIA FORMS 09/01/2013 2:35 PM EDT GLUCOSE METER POC Routine 08/29/2013 11:36 AM EDT SCANNED RHYTHM STRIPS 08/29/2013 7:46 AM EDT GLUCOSE METER POC Routine 08/29/2013 7:19 AM EDT SCANNED RHYTHM STRIPS 08/28/2013 8:47 PM EDT GLUCOSE METER POC Routine 08/28/2013 8:31 PM EDT GLUCOSE METER POC Routine 08/28/2013 5:11 PM EDT GLUCOSE METER POC Routine 08/28/2013 12:17 PM EDT SCANNED RHYTHM STRIPS 08/28/2013 10:42 AM EDT XR CHEST PA AND LATERAL Routine 08/28/2013 7:38 AM EDT GLUCOSE METER POC Routine 08/28/2013 6:58 AM EDT EK EKG 12 LEAD Routine 08/28/2013 6:45 AM EDT MAGNESIUM LEVEL Routine 08/28/2013 4:48 AM EDT PHOSPHORUS LEVEL Routine 08/28/2013 4:48 AM EDT BASIC METABOLIC PANEL Routine 08/28/2013 4:48 AM EDT CBC Routine 08/28/2013 4:48 AM EDT GLUCOSE METER POC Routine 08/28/2013 2:02 AM EDT SCANNED RHYTHM STRIPS 08/27/2013 9:56 PM EDT GLUCOSE METER POC Routine 08/27/2013 9:02 PM EDT POTASSIUM WHOLE BLOOD Routine 08/27/2013 8:43 PM EDT MAGNESIUM LEVEL Routine 08/27/2013 8:43 PM EDT GLUCOSE METER POC Routine 08/27/2013 4:23 PM EDT GLUCOSE METER POC Routine 08/27/2013 11:33 AM EDT IP CONSULT TO HOSPITALIST Routine 08/27/2013 11:24 AM EDT Procedure Note - Philip Barnes MD - 08/27/2013 11:48 AM EDTThis note is in progress. See dictated [id number] SCANNED RHYTHM STRIPS 08/27/2013 9:46 AM EDT GLUCOSE METER POC Routine 08/27/2013 9:32 AM EDT GLUCOSE METER POC Routine 08/27/2013 8:22 AM EDT XR CHEST AP PORTABLE ALEXANDRA 08/27/2013 6:40 AM EDT GLUCOSE METER POC Routine 08/27/2013 6:10 AM EDT DIFFERENTIAL Early AM 08/27/2013 4:30 AM EDT CBC WITH DIFF Early AM 08/27/2013 4:30 AM EDT BASIC METABOLIC PANEL Early AM 08/27/2013 4:30 AM EDT GLUCOSE METER POC Routine 08/27/2013 4:29 AM EDT GLUCOSE METER POC Routine 08/27/2013 1:56 AM EDT GLUCOSE METER POC Routine 08/26/2013 11:40 PM EDT GLUCOSE METER POC Routine 08/26/2013 10:28 PM EDT SCANNED RHYTHM STRIPS 08/26/2013 9:55 PM EDT GLUCOSE METER POC Routine 08/26/2013 9:07 PM EDT GLUCOSE METER POC Routine 08/26/2013 8:14 PM EDT GLUCOSE METER POC Routine 08/26/2013 6:14 PM EDT GLUCOSE METER POC Routine 08/26/2013 4:36 PM EDT SCANNED RHYTHM STRIPS 08/26/2013 4:17 PM EDT GLUCOSE METER POC Routine 08/26/2013 4:11 PM EDT GLUCOSE METER POC Routine 08/26/2013 3:07 PM EDT GLUCOSE METER POC Routine 08/26/2013 1:28 PM EDT GLUCOSE METER POC Routine 08/26/2013 1:04 PM EDT GLUCOSE METER POC Routine 08/26/2013 12:47 PM EDT GLUCOSE METER POC Routine 08/26/2013 12:36 PM EDT GLUCOSE METER POC Routine 08/26/2013 12:26 PM EDT GLUCOSE METER POC Routine 08/26/2013 12:09 PM EDT GLUCOSE METER POC Routine 08/26/2013 11:51 AM EDT GLUCOSE METER POC Routine 08/26/2013 11:28 AM EDT GLUCOSE METER POC Routine 08/26/2013 11:05 AM EDT GLUCOSE METER POC Routine 08/26/2013 10:55 AM EDT GLUCOSE METER POC Routine 08/26/2013 10:39 AM EDT GLUCOSE METER POC Routine 08/26/2013 10:28 AM EDT GLUCOSE METER POC Routine 08/26/2013 10:21 AM EDT GLUCOSE METER POC Routine 08/26/2013 10:14 AM EDT GLUCOSE METER POC Routine 08/26/2013 9:50 AM EDT GLUCOSE METER POC Routine 08/26/2013 9:15 AM EDT GLUCOSE METER POC Routine 08/26/2013 6:45 AM EDT XR CHEST AP PORTABLE ALEXANDRA 08/26/2013 6:25 AM EDT EK EKG 12 LEAD Routine 08/26/2013 5:45 AM EDT GLUCOSE METER POC Routine 08/26/2013 4:45 AM EDT DIFFERENTIAL Early AM 08/26/2013 4:45 AM EDT O2 SAT - MIXED VENOUS Routine 08/26/2013 4:45 AM EDT CBC WITH DIFF Early AM 08/26/2013 4:45 AM EDT BASIC METABOLIC PANEL Early AM 08/26/2013 4:45 AM EDT POTASSIUM WHOLE BLOOD Timed 08/26/2013 4:45 AM EDT GLUCOSE METER POC Routine 08/26/2013 3:19 AM EDT BLOOD GAS ARTERIAL Routine 08/26/2013 3:15 AM EDT BLOOD GAS ARTERIAL Routine 08/26/2013 1:50 AM EDT GLUCOSE METER POC Routine 08/26/2013 1:49 AM EDT SCANNED RHYTHM STRIPS 08/26/2013 1:28 AM EDT GLUCOSE METER POC Routine 08/26/2013 12:59 AM EDT POTASSIUM WHOLE BLOOD Timed 08/26/2013 12:15 AM EDT BLOOD GAS ARTERIAL Routine 08/26/2013 12:15 AM EDT GLUCOSE METER POC Routine 08/26/2013 12:11 AM EDT GLUCOSE METER POC Routine 08/25/2013 10:32 PM EDT BLOOD GAS ARTERIAL Routine 08/25/2013 10:30 PM EDT BLOOD GAS ARTERIAL Routine 08/25/2013 9:07 PM EDT POTASSIUM WHOLE BLOOD Timed 08/25/2013 9:07 PM EDT GLUCOSE METER POC Routine 08/25/2013 9:01 PM EDT GLUCOSE METER POC Routine 08/25/2013 8:06 PM EDT GLUCOSE METER POC Routine 08/25/2013 6:06 PM EDT BLOOD GAS ARTERIAL Routine 08/25/2013 6:05 PM EDT BLOOD GAS ARTERIAL Routine 08/25/2013 4:40 PM EDT MAGNESIUM LEVEL Timed 08/25/2013 4:40 PM EDT POTASSIUM WHOLE BLOOD Timed 08/25/2013 4:40 PM EDT HEMOGLOBIN AND HEMATOCRIT Timed 08/25/2013 4:40 PM EDT GLUCOSE METER POC Routine 08/25/2013 4:31 PM EDT O2 SAT - MIXED VENOUS Timed 08/25/2013 3:59 PM EDT GLUCOSE METER POC Routine 08/25/2013 3:48 PM EDT GLUCOSE METER POC Routine 08/25/2013 3:08 PM EDT SCANNED RHYTHM STRIPS 08/25/2013 2:42 PM EDT XR CHEST AP PORTABLE STAT 08/25/2013 1:56 PM EDT FIBRINOGEN STAT 08/25/2013 1:35 PM EDT PARTIAL THROMBOPLASTIN TIME STAT 08/25/2013 1:35 PM EDT PT / INR STAT 08/25/2013 1:35 PM EDT BLOOD GAS ARTERIAL STAT 08/25/2013 1:35 PM EDT POTASSIUM WHOLE BLOOD STAT 08/25/2013 1:35 PM EDT CBC STAT 08/25/2013 1:35 PM EDT GLUCOSE METER POC Routine 08/25/2013 1:29 PM EDT CORONARY ARTERY BYPASS GRAFT 08/25/2013 8:08 AM EDT Coronary atherosclerosis of [place] coronary artery Special Needs Pt will be transferred from [facility] on 08/23 [facility] GLUCOSE METER POC Routine 08/25/2013 6:45 AM EDT HEPARIN ANTI-XA, UNF Early AM 08/25/2013 5:05 AM EDT CBC Timed 08/25/2013 5:05 AM EDT GLUCOSE METER POC Routine 08/24/2013 11:11 PM EDT GLUCOSE METER POC Routine 08/24/2013 9:23 PM EDT URINALYSIS Routine 08/24/2013 7:10 PM EDT GLUCOSE METER POC Routine 08/24/2013 5:46 PM EDT XR CHEST PA AND LATERAL ALEXANDRA 08/24/2013 1:38 PM EDT STAPHYLOCOCCUS AUREUS SCREEN Routine 08/24/2013 1:37 PM EDT ANTIBODY SCREEN IGG Routine 08/24/2013 1:06 PM EDT ABORH Routine 08/24/2013 1:06 PM EDT DIFFERENTIAL Routine 08/24/2013 1:06 PM EDT HEMOGLOBIN A1C Routine 08/24/2013 1:06 PM EDT BLOOD GAS ARTERIAL Routine 08/24/2013 1:06 PM EDT PT / INR Routine 08/24/2013 1:06 PM EDT BASIC METABOLIC PANEL Routine 08/24/2013 1:06 PM EDT CBC WITH DIFF Routine 08/24/2013 1:06 PM EDT EK EKG 12 LEAD Routine 08/24/2013 12:58 PM EDT GLUCOSE METER POC Routine 08/24/2013 12:42 PM EDT INSERT PERIPHERAL IV Routine 08/24/2013 12:20 PM EDT SCANNED RHYTHM STRIPS 08/24/2013 7:48 AM EDT SCANNED RHYTHM STRIPS 08/24/2013 7:47 AM EDT GLUCOSE METER POC Routine 08/24/2013 7:42 AM EDT HEPARIN ANTI-XA, UNF Early AM 08/24/2013 5:10 AM EDT GLUCOSE METER POC Routine 08/23/2013 10:49 PM EDT GLUCOSE METER POC Routine 08/23/2013 6:13 PM EDT HEPARIN ANTI-XA, UNF Timed 08/23/2013 3:14 PM EDT GLUCOSE METER POC Routine 08/23/2013 2:36 PM EDT EC ECHOCARDIOGRAM COMPLETE W DOPPLER AND COLOR FLOW MAPPING Routine 08/23/2013 9:41 AM EDT VA US CAROTID DUPLEX BILATERAL Routine 08/23/2013 9:41 AM EDT GLUCOSE METER POC Routine 08/23/2013 8:06 AM EDT HEPARIN ANTI-XA, UNF Timed 08/23/2013 6:01 AM EDT HEPARIN ANTI-XA, UNF Timed 08/22/2013 10:16 PM EDT GLUCOSE METER POC Routine 08/22/2013 8:26 PM EDT GLUCOSE METER POC Routine 08/22/2013 5:36 PM EDT EK EKG 12 LEAD Routine 08/22/2013 4:55 PM EDT CARDIAC PROCEDURE - JANETH/FTT-COLD STRIP ROLLER ONLY 08/22/2013 11:26 AM EDT Chest pain, unspecified Special Needs GUILLE CPT;00994 COLD STRIP ROLLER PROCEDURE LOG Routine 4 12:00 AM EDT DIFFERENTIAL Routine 08/19/2013 2:13 PM EDT PT / INR Routine 08/19/2013 2:13 PM EDT HTN (hypertension) Chest pain Ischemic heart disease CBC WITH DIFF Routine 08/19/2013 2:13 PM EDT HTN (hypertension) Chest pain Ischemic heart disease BASIC METABOLIC PANEL Routine 08/19/2013 2:13 PM EDT HTN (hypertension) Chest pain Ischemic heart disease POCT MICROALBUMIN Routine 08/16/2013 10:29 AM EDT Type II or unspecified type diabetes mellitus without mention of complication, uncontrolled (HCC) POCT EKG Routine 08/16/2013 10:07 AM EDT Chest pain, unspecified POCT URINALYSIS DIPSTICK Routine 09/17/2012 9:51 AM EDT Routine general medical examination at a [facility] LIPID SCREEN Routine 09/17/2012 9:48 AM EDT Hyperlipidemia HEPATIC FUNCTION PANEL Routine 3 9:48 AM EDT Hyperlipidemia HEMOGLOBIN A1C Routine 09/17/2012 9:48 AM EDT DM (diabetes mellitus) (HCC) BASIC METABOLIC PANEL Routine 09/17/2012 9:48 AM EDT HTN (hypertension) Hyperlipidemia POCT MICROALBUMIN Routine 06/05/2012 10:28 AM EDT DM (diabetes mellitus) (HCC) LIPID SCREEN Routine 10/07/2011 10:57 AM EDT Hyperlipidemia HEPATIC FUNCTION PANEL Routine 2 10:57 AM EDT HTN (hypertension) HEMOGLOBIN A1C Routine 10/07/2011 10:57 AM EDT DM (diabetes mellitus) (HCC) BASIC METABOLIC PANEL Routine 10/07/2011 10:57 AM EDT HTN (hypertension) POCT URINALYSIS DIPSTICK Routine 02/16/2011 11:31 AM EST Flank pain Frequent urination POCT GLUCOSE Routine 02/03/2011 2:06 PM EST DM (diabetes mellitus) (HCC) POCT URINALYSIS DIPSTICK Routine 12/10/2010 11:37 AM EDT Urinary frequency Abdominal pain POCT URINALYSIS DIPSTICK Routine 10/01/2010 12:29 PM EDT Physical exam, annual HEMOGLOBIN A1C Routine 08/13/2010 11:21 AM EDT DM (diabetes mellitus) (HCC) CBC Routine 08/13/2010 11:21 AM EDT DM (diabetes mellitus) (HCC) BASIC METABOLIC PANEL Routine 08/13/2010 11:21 AM EDT DM (diabetes mellitus) (HCC) POCT MICROALBUMIN Routine 08/13/2010 11:04 AM EDT Frequent urination DM (diabetes mellitus) (HCC) POCT URINALYSIS DIPSTICK Routine 08/13/2010 11:04 AM EDT Frequent urination SCANNED OR REPORT 10/19/2009 12:[address] ABD/PELVIS GOGGLES ASSEMBLER Routine 02/07/2009 12:59 AM EST GC XX ABDOMEN Routine 02/07/2009 12:53 AM EST XX SOFT TISSUE OF THE NECK Routine 08/25/2007 8:10 PM EDT Results * BILIRUBIN DIRECT (07/18/2024 11:32 AM EDT) Only the most recent of2 resultswithin the time period is included. Bili Direct <0.2 0.0 - 0.3 mg/dL 07/18/2024 7:37 PM EDT PREFERRED LAB [facility] VENOUS BLOOD / Unknown Venipuncture / Unknown 07/18/2024 11:32 AM EDT 07/18/2024 11:32 AM EDT us Abel Hernandez MD CHEMISTRY ORDERABLES Final Resul t PREFERRED [employer] [facility] [address] [facility] , [place] [address] * PROTEIN/CREATININE RATIO URINE (07/18/2024 11:32 AM EDT) Only the most recent of3 resultswithin the time period is included. Urine Protein <6.0 mg/dL 07/18/2024 3:57 PM EDT [facility], [facility] Urine Creatinine 57.9 mg/dL 07/18/2024 3:57 PM EDT [facility], [facility] Ur Protein/Creat <0.10 mg/mg 07/18/2024 3:57 PM EDT [facility] Urine STRUCTURE OF URINARY TRACT PROPER / Unknown 07/18/2024 11:32 AM EDT 07/18/2024 11:32 AM EDT Abel Hernandez MD URINE ORDERABLES Final Result Performing Organization Address City/[facility]/ZIP Co de Phone Number [facility], [address] , [place] [address] [facility] [address] [place] [address] * VITAMIN D 25 HYDROXY (07/18/2024 11:32 AM EDT) Only the most recent of18 resultswithin the time period is included. Vit D 25 OH 64.0 30.0 - 150.0 ng/mL 07/18/2024 8:01 PM EDT [facility], [employer] Comment: Preferred: >= 30 ng/mL Insufficient: 21-29 ng/mL Deficient <= 20 ng/mL Possible Toxicity: >150 ng/mL Samples should not be taken from patients receiving therapy with high biotin doses (i.e. > 5 mg/day) until at least 8 hours following the last biotin administration. Blood VENOUS BLOOD / Unknown Venipuncture / Unknown 07/18/2024 11:32 AM EDT 07/18/2024 11:32 AM EDT Abel Hernandez MD CHEMISTRY ORDERABLES Final Resul t Performing Organization Address [facility] Co de Phone Number [facility], [address] , [place] [address] * MICROALBUMIN/CREATININE RATIO URINE (07/18/2024 11:32 AM EDT) Only the most recent of10 resultswithin the time period is included. Urine Microalb <12.0 mg/L 07/18/2024 3:57 PM EDT [facility], [employer] Urine Creatinine 57.9 mg/dL 07/19/19 25 3:57 PM EDT [facility], [employer] Ur Microalb/Creat 025 3:57 PM EDT [facility], [employer] Comment: Because the albumin level is below the level of detection in this urine specimen, the laboratory is unable to calculate a reliable albumin/creatinine ratio. Microalbuminuria is unlikely if the urine albumin concentration is less than 20- 30 mg/L in a random specimen. Urine STRUCTURE OF URINARY TRACT PROPER / Unknown 07/18/2024 11:32 AM EDT 07/18/2024 11:32 AM EDT us Abel Hernandez MD URINE ORDERABLES Final Result [facility], [facility] [address] [facility] , [address] [place] [id number] * (ABNORMAL) URINALYSIS (07/18/2024 11:32 AM EDT) Only the most recent of6 resultswithin the time period is included. UA Color Light Yellow 07/18/2024 1:49 PM EDT [facility] UA Appear Clear Clear 07/18/2024 1:49 PM EDT [facility] UA Glucose 4+ (>1000mg/dL) (A) Negative mg/dL 07/18/2024 1:49 PM EDT [facility] UA Ketones Negative Negative mg/dL 07/18/2024 1:49 PM EDT [facility] Blood Negative Negative 07/18/2024 1:49 PM EDT [facility] UA pH 6.0 5.0 - 8.0 pH 07/18/2024 1:49 PM EDT [facility] UA Protein Negative Negative mg/dL 07/18/2024 1:49 PM EDT [facility]A Urobilinogen Normal <=1 mg/dL 1:49 PM EDT [facility]A Bili Negative Negative 07/18/2024 1:49 PM EDT [facility] UA Nitrite Negative Negative 07/18/2024 1:49 PM EDT [facility]A Leuk Est Negative Negative 07/18/2024 1:49 PM EDT [facility] Spec Grav 1.032 1.001 - 1.035 no units 07/18/2024 1:49 PM EDT [facility] Comment:Reference range sofia d for random specimens only. Urine STRUCTURE OF URINARY TRACT PROPER / Unknown 07/18/2024 11:32 AM EDT 07/18/2024 11:32 AM EDT us Abel Hernandez MD URINE ORDERABLES Final Result Performing Organization Address City/[facility] Co de Phone Number [facility] [address] , [place] [address] * ALANINE AMINOTRANSFERASE (07/18/2024 11:32 AM EDT) Only the most recent of2 resultswithin the time period is included. ALT 19 <=41 U/L 07/18/2024 7:3 7 PM EDT [facility] Blood VENOUS BLOOD / Unknown Venipuncture / Unknown 07/18/2024 11:32 AM EDT 07/18/2024 11:32 AM EDT us Abel Hernandez MD CHEMISTRY ORDERABLES Final Resul t Performing Organization Address [facility] Co de Phone Number [facility] [address] [facility] , [place] [address] * ASPARTATE AMINOTRANSFERASE (07/18/2024 11:32 AM EDT) Only the most recent of2 resultswithin the time period is included. AST 14 <=40 U/L 07/18/2024 7:3 7 PM EDT [facility] Blood VENOUS BLOOD / Unknown Venipuncture / Unknown 07/18/2024 11:32 AM EDT 07/18/2024 11:32 AM EDT us Abel Hernandez MD CHEMISTRY ORDERABLES Final Resul t Performing Organization Address City/[facility] Co de Phone Number [facility] [address] [facility] , [address] [place] [id number] * (ABNORMAL) PROTEIN TOTAL-BLOOD (07/18/2024 11:32 AM EDT) Only the most recent of2 resultswithin the time period is included. [facility] Total Protein 6.2(L) 6.4 - 8.3 gm/dL 07/18/2024 7:37 PM EDT [facility] Blood VENOUS BLOOD / Unknown Venipuncture / Unknown 07/18/2024 11:32 AM EDT 07/18/2024 11:32 AM EDT us Abel Hernandez MD CHEMISTRY ORDERABLES Final Resul t Performing Organization Address [facility] de Phone Number [address] , [place] [address] * ALKALINE PHOSPHATASE (07/18/2024 11:32 AM EDT) Only the most recent of2 resultswithin the time period is included. [facility] Alk Phos 83 40 - 129 U/L 07/18/2024 7:37 PM EDT [facility] Blood VENOUS BLOOD / Unknown Venipuncture / Unknown 07/18/2024 11:32 AM EDT 07/18/2024 11:32 AM EDT us Abel Hernandez MD CHEMISTRY ORDERABLES Final Resul t Performing Organization Address [facility] de Phone Number [address] , [place] [address] * PARATHYROID HORMONE INTACT (07/18/2024 11:32 AM EDT) Only the most recent of4 resultswithin the time period is included. [facility] PTH Intact 62.50 15.00 - 65.00 pg/mL 07/18/2024 3:45 PM EDT [facility] [employer] Blood VENOUS BLOOD / Unknown Venipuncture / Unknown 07/18/2024 11:32 AM EDT 07/18/2024 11:32 AM EDT Narrative [facility] - 07/18/2024 3:45 PM EDT Intact PTH Calcium Interpretation ------- 15 - 65 8.6 - 10.2 Normal > 65 > 10.2 Primary Hyperparathyroidism < 20 > 10.2 Non-Parathyroid hypercalcemia < 15 < 8.6 Hypoparathyroidism Consider the above as guidelines only. PTH results should be interpreted in conjunction with the total or ionized calcium level. The finding of a persistently high-normal calcium accompanied by a high-normal PTH (or a low-normal calcium accompanied by a low-normal PTH) warrants further investigation. Although the PTH may itself be within normal limits, it may be inappropriately high (or low) relative to the circulating calcium level. Ingestion of joaquin doses of biotin (>5 mg/day) taken within 8 hours of drawing blood sample can interfere with this immunoassay test. Abel Hernandez MD CHEMISTRY ORDERABLES Final Resul t Performing Organization Address [facility] Co de Phone Number [facility] [address] [place] [address] , [place] [address] * BILIRUBIN TOTAL (07/18/2024 11:32 AM EDT) Only the most recent of2 resultswithin the time period is included. Bili Total 0.2 0.2 - 1.4 mg/dL 07/18/2024 7:37 PM EDT [facility] Blood VENOUS BLOOD / Unknown Venipuncture / Unknown 07/18/2024 11:32 AM EDT 07/18/2024 11:32 AM EDT Abel Hernandez MD CHEMISTRY ORDERABLES Final Resul t Performing Organization Address [facility] Co de Phone Number [facility] [address] [place] [address] , [place] [address] * (ABNORMAL) RENAL FUNCTION PANEL (07/18/2024 11:32 AM EDT) Only the most recent of2 resultswithin the time period is included. Sodium 137 136 - 145 mmol/L 07/18/2024 7:37 PM EDT [facility] Potassium 4.1 3.5 - 5.0 mmol/L 07/18/2024 7:37 PM EDT [facility] Chloride 101 98 - 107 mmol/L 07/18/2024 7:37 PM EDT [facility] Total CO2 23 22 - 29 mmol/L 07/18/2024 7:37 PM EDT [facility] Anion Gap 13 7 - 16 mmol/L 07/18/2024 7:37 PM EDT [facility] Calcium 9.5 8.8 - 10.4 mg/dL 07/18/2024 7:37 PM EDT [facility] Glucose Lvl 289(H) 70 - 99 mg/dL 07/18/2024 7:37 PM EDT [facility] BUN 20 8 - 23 mg/dL 07/18/2024 7:37 PM EDT [facility] Creatinine 1.36(H) 0.67 - 1.30 mg/dL 07/18/2024 7:37 PM EDT [facility] Albumin 4.0 3.2 - 4.6 gm/dL 07/18/2024 7:37 PM EDT [facility] Phosphorus 3.5 2.5 - 4.5 mg/dL 07/18/2024 7:37 PM EDT [facility] eGFR (CKD-EPIcr 2020) 56(L) >=60 mL/min/1.7 3 m2 07/18/2024 7:37 PM EDT [facility] Comment:Estimated GFR was ca lculated using the CKD-EPIcr (2020) equation refit without race. The equation is recommended by the [employer] - [employer] Neph[employer] Task Force. Blood VENOUS BLOOD / Unknown Venipuncture / Unknown 07/18/2024 11:32 AM EDT 07/18/2024 11:32 AM EDT us Abel Hernandez MD CHEMISTRY ORDERABLES Final Resul t [facility] [address] [facility] , [place] [address] * XR CHEST PA AND LATERAL (02/13/2024 2:26 PM EST) Only the most recent of7 resultswithin the time period is included. Anatomical Region Laterality Modality Chest Radiographic Kimberly ging 02/13/2024 2:26 PM EST Impressions 02/13/2024 3:15 PM EST No acute finding. - Note: Radiology results need to be interpreted within a comprehensive clinical context. If you have questions about the radiology report, please contact the office of the ordering clinician. Narrative 02/13/2024 3:15 PM EST PA AND LATERAL CHEST X-RAY, 02/13/2024 2:26 PM CLINICAL HISTORY: R60.0-Localized [id number]-95-CM I50.43-Acute on chronic combined systolic (congestive) and diastolic (congestive) heart failure (HCC)-ICD-10-CM I50.23-Acute on chronic systolic (congestive) heart failure (HCC)-ICD-10-CM COMPARISON: December 31, 2023 PROCEDURE COMMENTS: Frontal and lateral views of the chest. FINDINGS: Heart and mediastinal contours within normal limits for technique. No active failure, pneumonia, or visible effusion. No visible pneumothorax. Previous CABG. Procedure Note Rosa Ruiz MD - 02/13/2024 PA AND LATERAL CHEST X-RAY, 02/13/2024 2:26 PM CLINICAL HISTORY: R60.0-Localized gzygv-PKJ-88-CM I50.43-Acute on chronic combined systolic (congestive) and diastolic (congestive) heart failure (HCC)-ICD-10-CM I50.23-Acute on chronic systolic (congestive) heart failure(HCC)-ICD-10-CM COMPARISON: December 31, 2023 PROCEDURE COMMENTS: Frontal and lateral views of the chest. FINDINGS: Heart and mediastinal contours within normal limits for technique. Noactive failure, pneumonia, or visible effusion. No visible pneumothorax.Previous CABG. IMPRESSION: No acute finding. - Note: Radiology results need to be interpreted within a comprehensiveclinical context. If you have questions about the radiology report, please contactthe office of the ordering clinician. us Viral Gross V, DO IMG DIAGNOSTIC IMAGING ORDERAB LES Final Result * (ABNORMAL) BASIC METABOLIC PANEL (02/11/2024 8:32 AM EST) Only the most recent of36 resultswithin the time period is included. Sodium 142 136 - 145 mmol/L 02/11/2024 7:29 PM EST [facility] Potassium 4.5 3.5 - 5.0 mmol/L 02/11/2024 7:29 PM EST [facility] Chloride 100 98 - 107 mmol/L 02/11/2024 7:29 PM EST [facility] Total CO2 24 22 - 29 mmol/L 02/11/2024 7:29 PM EST [facility] Anion Gap 18(H) 7 - 16 mmol/L 02/11/2024 7:29 PM EST [facility] Calcium 9.7 8.8 - 10.4 mg/dL 02/11/2024 7:29 PM EST [facility] Glucose Lvl 341(H) 70 - 99 mg/dL 02/11/2024 7:29 PM EST [facility] BUN 23 8 - 23 mg/dL 02/11/2024 7:29 PM EST [facility] Creatinine 1.59(H) 0.67 - 1.30 mg/dL 02/11/2024 7:29 PM EST [facility] eGFR (CKD-EPIcr 2020) 46(L) >=60 mL/min/1.7 3 m2 02/11/2024 7:29 PM EST [facility] Comment:Estimated GFR was ca lculated using the CKD-EPIcr (2020) equation refit without race. The equation is recommended by the National Kid[employer] - [employer] of Nephrology Task Force. Blood VENOUS BLOOD / Unknown Venipuncture / Unknown 02/11/2024 8:32 AM EST 02/11/2024 8:32 AM EST us Viral Gross V, DO CHEMISTRY ORDERABLES Final Res ult [facility], [address] , [place] [address] [facility] [address] [place] [address] * (ABNORMAL) GLUCOSE METER POC (01/03/2024 7:51 AM EDT) Only the most recent of140 resultswithin the time period is included. Pathologist [facility] Glucose Meter POC 179(H) 70 - 100 mg/dL 01/03/2024 7:53 AM EDT [facility] Sample Type Capillary 01/03/2024 7:53 AM EDT [facility] Patient Status Non-Critical Patient 01/03/2024 7:53 AM EDT [facility] Blood BLOOD SPECIMEN / Unknown 01/03/2024 7:51 AM EDT 01/03/2024 7:53 AM EDT Momo Castellanos MD POINT OF CARE TEST ORDERABLES Fi nal Result Performing Organization Address City/[facility]/ZIP Co de Phone Number [facility] [address] [place] [address] * ECG AND WAVEFORMS - TELEMETRY (01/03/2024 7:18 AM EDT) Only the most recent of37 resultswithin the time period is included. [facility] ECG INTERPRET First Degree Sinus Rhythm [facility] 01/03/2024 7:18 AM EDT Narrative [facility] - 01/03/2024 7:21 AM EDT SR;IVCD-ROUTINE/PB OH 0.23 QRS 0.15 RR 0.79 QT 0.42 QTc 0.47 See Clinical Report link for waveform capture us Unknown Provider POINT OF CARE CARDIOLOGY Final Result Performing Organization Address City/[facility]/ZIP Co de Phone Number [facility] [address] [place] [address] * CBC (01/03/2024 6:05 AM EDT) Only the most recent of15 resultswithin the time period is included. [facility] WBC 4.9 3.7 - 10.3 x10(3)/mcL 01/03/2024 6:36 AM EDT [facility] RBC 4.99 4.60 - 6.10 x10(6)/mcL 01/03/2024 6:36 AM EDT [facility] Hgb 14.0 13.7 - 17.5 g/dL 01/03/2024 6:36 AM EDT [facility] Hct 43.0 40.0 - 51.0 % 01/03/2024 6:36 AM EDT [facility] MCV 86.2 80.0 - 100.0 fL 01/03/2024 6:36 AM EDT [facility] MCH 28.1 26.0 - 34.0 pg 01/03/2024 6:36 AM EDT [facility] MCHC 32.6 30.7 - 35.5 g/dL 01/03/2024 6:36 AM EDT [facility] RDW 13.2 <=14.9 % 01/03/2024 6:36 AM EDT [facility] Platelet 210 155 - 369 x10(3)/mcL 01/03/2024 6:36 AM EDT [facility] MPV 11.5 8.8 - 12.5 fL 01/03/2024 6:36 AM EDT [facility] Blood VENOUS BLOOD / Unknown Venipuncture / Unknown 01/03/2024 6:05 AM EDT 01/03/2024 6:29 AM EDT us Familia Broderick MD (Ronny) HEMATOLOGY DAGOBERTO OCHOA Final Result Performing Organization Address [facility]/State/[facility] Co de Phone Number [facility] [address] [place] [address] * SCANNED EKG (01/02/2024 8:36 AM EDT) Only the most recent of4 resultswithin the time period is included. Anatomical Region Laterality Modality Other 01/02/2024 8:36 AM EDT us Unknown Provider IMG ECG ORDERABLES Final Result * (ABNORMAL) TROPONIN-T HIGH SENSITIVITY 2HR (12/31/2023 2:49 PM EDT) Only the most recent of4 resultswithin the time period is included. xq-pVswjxedi-I 2HR 49(H) <22 ng/L 12/31/2023 3:10 PM EDT [facility] Comment:See the website kelly Rockmelt for rule out RI care pathway, conditions other than AMI that can cause elevated hs cTnT, and comparison of values from the 4th and 5th generation Marisabel tests. https://[email or web address]/topic/clinical-answers/gnt-69773309/cpm-203 44179 hs-cTnT 2Hr Delta from Baseline 2 <4 ng/L 12/31/2023 3:10 PM EDT [facility] Blood VENOUS BLOOD / Unknown Venipuncture / Unknown 12/31/2023 2:49 PM EDT 12/31/2023 2:51 PM EDT Narrative [facility] - 12/31/2023 3:10 PM EDT Ingestion of joaquin doses of biotin (>5 mg/day) taken within 8 hours of drawing blood sample can interfere with this immunoassay test. Sixto Jose MD CHEMISTRY ORDERABLES Amie l Result [facility] [address] [place] [id number] * XR CHEST AP PORTABLE (12/31/2023 1:44 PM EDT) Only the most recent of4 resultswithin the time period is included. Anatomical Region Laterality Modality Chest Radiographic Kimberly ging 12/31/2023 1:44 PM EDT Impressions 12/31/2023 2:00 PM EDT Findings raise possibility of mild CHF - Note: Radiology results need to be interpreted within a comprehensive clinical context. If you have questions about the radiology report, please contact the office of the ordering clinician. Narrative 12/31/2023 2:00 PM EDT XR CHEST AP PORTABLE, 12/31/2023 1:44 PM CLINICAL HISTORY: -shortness of breath, hx of CHF, suspect CHF exacerbation/fluid overload/pulmonary edema COMPARISON: 12/11/2023 PROCEDURE COMMENTS: AP portable technique. FINDINGS: Support devices: No visible support devices. Evidence of prior median sternotomy. Borderline cardiomegaly. Pulmonary vascular prominence and mild indistinctness. Procedure Note Nikunj Vidales MD - 12/31/2023 XR CHEST AP PORTABLE, 12/31/2023 1:44 PM CLINICAL HISTORY: -shortness of breath, hx of CHF, suspect CHF exacerbation/fluid overload/pulmonary edema COMPARISON: 12/11/2023 PROCEDURE COMMENTS: AP portable technique. FINDINGS: Support devices: No visible support devices. Evidence of prior median sternotomy. Borderline cardiomegaly. Pulmonaryvascular prominence and mild indistinctness. IMPRESSION: Findings raise possibility of mild CHF - Note: Radiology results need to be interpreted within a comprehensiveclinical context. If you have questions about the radiology report, please contactthe office of the ordering clinician. us Sixto Jose MD IMG DIAGNOSTIC IMAGING OR DERABLES Final Result * (ABNORMAL) TROPONIN-T HIGH SENSITIVITY BASELINE W/ REFLEX (12/31/2023 12:55 PM EDT) Only the most recent of4 resultswithin the time period is included. ba-kRfmljksf-P 47(H) <22 ng/L 12/31/2023 1:25 PM EDT [facility] Comment:See the website kelly Rockmelt for rule out RI care pathway, conditions other than AMI that can cause elevated hs cTnT, and comparison of values from the 4th and 5th generation Marisabel tests. https://[email or web address]/topic/clinical-answers/[email or web address]/cpm-[email or web address] 51572 Blood VENOUS BLOOD / Unknown Venipuncture / Unknown 12/31/2023 12:55 PM EDT 12/31/2023 12:59 PM EDT Narrative [facility] - 12/31/2023 1:25 PM EDT Ingestion of joaquin doses of biotin (>5 mg/day) taken within 8 hours of drawing blood sample can interfere with this immunoassay test. us Sixto Jose MD CHEMISTRY ORDERABLES Amie l Result [facility] [address] [place] [address] * (ABNORMAL) NT PROBNP (12/31/2023 12:55 PM EDT) Only the most recent of2 resultswithin the time period is included. NT Pro-BNP 2,162(H) <=229 pg/mL 12/31/2023 1:35 PM EDT [facility] Blood VENOUS BLOOD / Unknown Venipuncture / Unknown 12/31/2023 12:55 PM EDT 12/31/2023 12:59 PM EDT Narrative [facility] - 12/31/2023 1:35 PM EDT An NT pro-BNP level less than 300 pg/mL in any patient, regardless of age, effectively rules out acute CHF with a 99% negative predictive value. Ingestion of joaquin doses of biotin (>5 mg/day) taken within 8 hours of drawing blood sample can interfere with this immunoassay test. Sixto Jose MD CHEMISTRY ORDERABLES Amie l Result [facility] [address] [place] [id number] * EK EKG 12 LEAD (12/31/2023 12:24 PM EDT) Only the most recent of11 resultswithin the time period is included. Anatomical Region Laterality Modality Electrocardiogra phy 12/31/2023 12:3 5 PM EDT Impressions 12/31/2023 4:[address] [facility] Test Date: 2023-12-31 Pat Name: JACKIE ABDI Department: DEPID Room: Gender: Male Shuttle Preparation Supervisor: Hai : 1955 Requested By: [facility] Order Number: [id number] Radha MD: Jimbo Mcdaniel Measurements Intervals Colony Rate: 60 P: 32 OH: 201 QRS: -22 QRSD: 152 T: 136 QT: 460 QTc: 463 Interpretive Statements SINUS RHYTHM LEFT BUNDLE BRANCH BLOCK Electronically Signed On 12-31-2023 16:09:13 EDT by Jimbo Mcdaniel Narrative Procedure Note Jimbo Mcdaniel MD - 12/31/[address] [facility] Test Date: 2023-12-31 Pat Name: JACKIE ABDI Department: DEPID Room: Gender: Male Shuttle Preparation Supervisor: Hai : 1955 Requested By: [facility] Order Number: [id number] Reading MD: Jimbo Mcdaniel Measurements Intervals Colony Rate: 60 P: 32 OH: 201 QRS: -22 QRSD: 152 T: 136 QT: 460 QTc: 463 Interpretive Statements SINUS RHYTHM LEFT BUNDLE BRANCH BLOCK Electronically Signed On 12-31-2023 16:09:13 EDT by Jimbo Mcdaniel us Sixto Jose MD IMG ECG ORDERABLES Final Result * (ABNORMAL) EMG (12/24/2023) Impressions SEP OFFICE - 12/24/2023 This is an abnormal study. There is evidence of a generalized underlying polyneuropathy. If clinically indicated, patient can be sent back to the lab for lower extremity study to further evaluate this diagnosis. Because of the underlying polyneuropathy, it is difficult to evaluate for superimposed mononeuropathy but there is a suggestion of left greater than right median neuropathies. Clinical correlation is recommended. There is no evidence of a left or right cervical radiculopathy on this study. Narrative SEP OFFICE - 12/24/2023 NCS Summary: Absent bilateral median, radial, and ulnar sensory responses. Absent left and prolonged right median motor responses. Reduced right ulnar-ADM motor response. Normal left ulnar-ADM motor response. Absent left and prolonged right median F waves. EMG Summary: Chronic neurogenic changes are seen in bilateral FDI and APB muscles. Normal bilateral EIP, FCR, triceps, deltoid and cervical paraspinal muscles. us Viral Renato Rey DO NEUROLOGY ORDERABLES Final Res ult [facility] OFFICE * (ABNORMAL) HEMOGLOBIN A1C (12/12/2023 2:26 PM EDT) Only the most recent of34 resultswithin the time period is included. Hgb A1C 9.6(H) 4.2 - 5.6 % 12/12/2023 7:30 PM EDT [facility] Est. Avg Glucose 229 mg/dL 12/12/2023 7:30 PM EDT [facility] Blood VENOUS BLOOD / Unknown Venipuncture / Unknown 12/12/2023 2:26 PM EDT 12/12/2023 2:26 PM EDT Narrative [facility] - 12/12/2023 7:30 PM EDT REFERENCE RANGE: Normal: 4.0-5.6% Pre-diabetes: 5.7-6.4% Provisional diagnosis of diabetes: >6.4% Hgb F>10% and anything which shortens red cell survival, such as hemolytic anemia, or unstable hemoglobin variants such as HbSS, HbSC, or HbCC, will lower the HbA1c value associated with a given level of glycemic control. us Viral Gross V, DO CHEMISTRY ORDERABLES Final Res ult [facility] [place] [address] [facility] , [place] [address] [facility] [address] [place] [address] * XR CERVICAL SPINE AP LATERAL ODONTOID AND OBLIQUE (11/28/2023 2:06 PM EDT) Anatomical Region Laterality Modality C-spine Radiographic Kimberly ging 11/28/2023 2:06 PM EDT Impressions 11/28/2023 3:54 PM EDT Multilevel cervical spondylosis and facet arthropathy as described. - Note: Radiology results need to be interpreted within a comprehensive clinical context. If you have questions about the radiology report, please contact the office of the ordering clinician. 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 FINDINGS: No fracture. No acute malalignment. There is severe disc height space loss at C5-6, moderate disc height space loss at C4-5 and C6-7. Superimposed uncovertebral and facet disease throughout the cervical spine. Multilevel moderate foraminal stenosis most significant at C3-4 and C4-5. Prevertebral soft tissues are normal. Procedure Note Roe Joe MD - 11/28/2023 C-SPINE SERIES, 11/28/2023 2:06 PM CLINICAL HISTORY: R20.0-Anesthesia of upkp-JJS-84-CM R20.2-Paresthesia of fweh-MPF-95-CM R20.0-Anesthesia of ysqg-VWL-37-CM R20.2-Paresthesia of itme-RIO-44-CM 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, dmoetxxurfm-DBW-35-CM COMPARISON: MRI April 29, 2021 PROCEDURE COMMENTS: 5 views of the cervical spine, including PA,lateral, odontoid, and bilateral oblique positioning. FINDINGS: No fracture. No acute malalignment. There is severe disc heightspace loss at C5-6, moderate disc height space loss at C4-5 and C6-7.Superimposed uncovertebral and facet disease throughout the cervical spine. Multilevel moderate foraminal stenosis most significant at C3-4 andC4-5. Prevertebral soft tissues are normal. IMPRESSION: Multilevel cervical spondylosis and facet arthropathy as described. - Note: Radiology results need to be interpreted within a comprehensiveclinical context. If you have questions about the radiology report, please contactthe office of the ordering clinician. us Viral Gross V, DO IMG DIAGNOSTIC IMAGING ORDERAB LES Final Result * (ABNORMAL) LIPID SCREEN (11/01/2023 6:59 AM EDT) Only the most recent of11 resultswithin the time period is included. Cholesterol 119 <200 mg/dL 11/01/2023 7:38 AM EDT [facility] Comment: < 200 Desirable 200 - 239 Borderline High >= 240 High Triglyceride 213(H) <150 mg/dL 11/01/2023 7:38 AM EDT [facility] Comment: < 150 Normal 150 - 199 Borderline High 200 - 499 High >= 500 Very High HDL 28(L) >=40 mg/dL 11/01/2023 7:38 AM EDT [facility] Comment: > 60 Optimal 40 - 60 Acceptable < 40 Low LDL Calculated 56 <100 mg/dL 11/01/2023 7:38 AM EDT [facility] Comment: < 100 Optimal 100 - 129 Near or above optimal 130 - 159 Borderline High 160 - 189 High >= 190 Very High Non-HDL-C Calculated 91 <=129 mg/dL 11/01/2023 7:38 AM EDT [facility] Comment: <130 Desirable 130-159 Above Desirable 160-189 Borderline High 190-219 High >= 220 Very High Fasting Specimen? Yes None 024 7:38 AM EDT [facility] Blood VENOUS BLOOD / Unknown Venipuncture / Unknown 11/01/2023 6:59 AM EDT 11/01/2023 7:03 AM EDT Sapphire Munguia MD CHEMISTRY ORDERABLES Final Result [facility] [address] [place] [address], [place] [address] [facility] [address] [place] [address] * EC ECHOCARDIOGRAM LIMITED (10/31/2023 4:51 PM EDT) Anatomical Region Laterality Modality Electrocardiogra phy 10/31/2023 2:48 PM EDT Impressions 11/01/2023 2:10 PM EDT Conclusions * Limited exam after angiogram to rule out effusion. * There is no pericardial effusion. Narrative Procedure Note Sapphire Munguia MD - 11/01/2023 IMPRESSION Conclusions * Limited exam after angiogram to rule out effusion. * There is no pericardial effusion. Sapphire Munguia MD IMG ECHO ORDERABLES Final Result * EC ECHOCARDIOGRAM COMPLETE W DOPPLER AND COLOR FLOW MAPPING (10/31/2023 3:19 PM EDT) Only the most recent of7 resultswithin the time period is included. LV DIASTOLIC PLAX 5.893 cm PYRAMIS Ejection Fraction 25-30% PYRAMIS Anatomical Region Laterality Modality Electrocardiogra phy 10/31/2023 2:48 PM EDT Impressions 10/31/2023 3:23 PM EDT Conclusions * Left ventricular chamber dimension is enlarged. * Left ventricular function is severely reduced with an estimated ejection fraction of 25-30%. Narrative Procedure Note Jet Ortega MD - 10/31/2023 IMPRESSION Conclusions * Left ventricular chamber dimension is enlarged. * Left ventricular function is severely reduced with an estimatedejection fraction of 25-30%. Sapphire Munguia MD [facility] ECHO ORDERABLES Final Result * CORONARY ANGIOGRAM (COR/LHC/LV GRAM, CARDIAC CATHETERIZATION), ULTRASOUND GUIDED VASCULAR ACCESS (10/31/2023 3:00 PM EDT) Only the most recent of3 resultswithin the time period is included. Narrative [facility] - 11/06/2023 11:00 AM EDT Procedure Details Procedure: Attempted PCI to LM.LCx COMMUNITY RELATIONS SPECIALIST Cardiac cath The patient was brought to the cardiac cath laboratory suite and was prepped and draped in the usual sterile fashion. Conscious sedation was achieved with IV versed and fentanyl. 10 ml of 2% lidocaine was used to provide local anesthesia over the prepared site. Using US guidance a 7 Fr sheath inserted in rt SUPERVISOR BOAT OUTFITTING A 6 FR sheath inserted in rt radial artery 7 FR XB 3.5 guide engaged in left Main An AL1 Guide engaged in SVG to OM thru radial access to visualize distal LCX via collaterals Heparin used for AC Guide support used as well (7 fr guidezilla) Using a support microcatheter (corsair) initial fileder T wire advance to engage a small channel Attempted to cross long segment occlusion Using antegrade wire escalation Aircraft Instrument Engineer 150 then changed to Andrey and andera 2 and 3 Able to cross proximal cap At one point distal wire appeared to be at distal cap in multiple retrograde injections Unable to cross distal cap and wire appeared to go outside of vessel structures After prolonged attempts procedure was aborted Limited echo showed no pericardial effusion Pt was hemodynamically stable Transferred to recovery in stable condition A/p Unsuccessful PCI to long segment LM/LCX COMMUNITY RELATIONS SPECIALIST Continue to optimize med rx Can reattempt PCI to COMMUNITY RELATIONS SPECIALIST depending on clinical progress Sapphire Munguia MD CARDIAC CATH ORDERABLES Fi nal Result Performing Organization Address [facility] Co de Phone Number [employer] CARDIOLOGY * (ABNORMAL) ACTIVATED CLOTTING TIME LR POC (10/31/2023 2:45 PM EDT) Only the most recent of7 resultswithin the time period is included. Pathologist [facility] ACT-LR 214(H) 89 - 169 second(s) 10/31/2023 2:51 PM EDT [facility] Blood BLOOD SPECIMEN / Unknown 10/31/2023 2:45 PM EDT 10/31/2023 2:51 PM EDT Sapphire Munguia MD POINT OF CARE TEST ORDERAB LES Final Result Performing Organization Address [facility] de Phone Number [facility] [address] [place] [phone] * COLD STRIP ROLLER HEMODYNAMIC WAVEFORMS (10/31/2023 1:11 PM EDT) Only the most recent of3 resultswithin the time period is included. 10/31/2023 1:11 PM EDT Sapphire Munguia MD CARDIAC CATH ORDERABLES Fi nal Result Performing Organization Address [facility] de Phone Number [facility] [address] [place] [address] * PT / INR (10/30/2023 8:50 AM EDT) Only the most recent of6 resultswithin the time period is included. PT 10.9 10.5 - 13.6 second(s) 10/30/2023 2:07 PM EDT [facility] INR 0.92 0.89 - 1.16 (ratio) 10/30/2023 2:07 PM EDT [facility] Comment: Level of Therapy Indications Target INR Range Standard Dose Treatment and prophylaxis of venous 2.0 - 3.0 thrombosis, pulmonary embolism High Dose High risk patients with mechanical 2.5 - 3.5 heart valves Blood VENOUS BLOOD / Unknown Venipuncture / Unknown 10/30/2023 8:50 AM EDT 10/30/2023 8:50 AM EDT us Kelin Tran GRADUATE TEACHER EDUCATION HEMATOLOGY ORDERABLES Final Res ult [facility] [address] [facility] , [place] [address] * (ABNORMAL) CBC WITH DIFF (10/30/2023 8:50 AM EDT) Only the most recent of19 resultswithin the time period is included. WBC 5.2 3.7 - 10.3 x10(3)/mcL 10/30/2023 2:13 PM EDT [facility] RBC 4.92 4.60 - 6.10 x10(6)/mcL 10/30/2023 2:13 PM EDT [facility] Hgb 13.7 13.7 - 17.5 g/dL 10/30/2023 2:13 PM EDT [facility] Hct 43.9 40.0 - 51.0 % 10/30/2023 2:13 PM EDT [facility] MCV 89.2 80.0 - 100.0 fL 10/30/2023 2:13 PM EDT [facility] MCH 27.8 26.0 - 34.0 pg 10/30/2023 2:13 PM EDT [facility] MCHC 31.2 30.7 - 35.5 g/dL 10/30/2023 2:13 PM EDT [facility] RDW 13.2 <=14.9 % 10/30/2023 2:13 PM EDT [facility] Platelet 198 155 - 369 x10(3)/[facility] 10/30/2023 2:13 PM EDT [facility] MPV 12.6(H) 8.8 - 12.5 fL 10/30/2023 2:13 PM EDT [facility] Neut Percent 64.1 % 10/30/2023 2:13 PM EDT [facility] Comment:Neutrophils equals s egs plus bands Imm Gran% 0.6 % 10/30/2023 2:13 PM EDT [facility] Comment:Automated count of m etamyelocytes, myelocytes and promyelocytes. Lymph Percent 21.8 % 10/30/2023 2:13 PM EDT [facility] [place] Percent 8.1 % 10/30/2023 2:13 PM EDT [facility] Eos Percent 5.0 % 10/30/2023 2:13 PM EDT [facility] Baso Percent 0.4 % 10/30/2023 2:13 PM EDT [facility] Neut # 3.3 1.6 - 6.1 x10(3)/[facility] 10/30/2023 2:13 PM EDT [facility] Comment:Neutrophils equals s egs plus bands IMMGRAN# 0.0 0.0 - 0.1 x10(3)/[facility] 10/30/2023 2:13 PM EDT [facility] Comment:Automated count of m etamyelocytes, myelocytes and promyelocytes. An absolute IG <0.1 is reported as 0.0. Lymph # 1.1(L) 1.2 - 3.9 x10(3)/[facility] 10/30/2023 2:13 PM EDT [facility] [place] # 0.4 0.3 - 0.9 x10(3)/[facility] 10/30/2023 2:13 PM EDT [facility] Eos# 0.3 0.0 - 0.5 x10(3)/[facility] 10/30/2023 2:13 PM EDT [facility] Baso # 0.0 0.0 - 0.1 x10(3)/[facility] 10/30/2023 2:13 PM EDT [facility] Blood VENOUS BLOOD / Unknown Venipuncture / Unknown 10/30/2023 8:50 AM EDT 10/30/2023 8:50 AM EDT us Kelin Tran GRADUATE TEACHER EDUCATION HEMATOLOGY ORDERABLES Final Res ult [facility] [address] [facility] , [place] [address] * XR LUMBAR SPINE AP LATERAL FLEXION AND EXTENSION (09/18/2023 10:24 AM EDT) Narrative Genericuser, Pia - 09/18/2023 10:26 AM EDT Please see physician's note from office encounter for x-ray imaging result us Paula ARMIJO IMG DIAGNOSTIC IMAGING ORDERABL ES Final Result * US THYROID (09/17/2023 1:30 PM EDT) Only the most recent of2 resultswithin the time period is included. Anatomical Region Laterality Modality Neck Ultrasound 09/17/2023 1:30 PM EDT Impressions 09/18/2023 7:33 AM EDT No significant change in nodule right lobe. Recommend follow-up in one year. - Note: Radiology results need to be interpreted within a comprehensive clinical context. If you have questions about the radiology report, please contact the office of the ordering clinician. Narrative 09/18/2023 7:33 AM EDT THYROID SONOGRAPHY, 09/17/2023 1:30 PM CLINICAL HISTORY: Thyroid nodule(s). 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 COMPARISON: 10/04/2022 PROCEDURE COMMENTS: Sonographic evaluation of the thyroid gland per protocol. Images and technologist notes reviewed. METHODOLOGY: Up to 4 nodules with the highest scores are reported using the Thyroid Imaging Reporting and Data System (TI-RADS). This system promotes a common lexicon for thyroid nodule description, focusing on relevant imaging characteristics to allow risk stratification of individual nodules and makes recommendations for biopsy or sonographic follow-up based on the estimated risk profile. Caveat: Deviation from the below TI-RADS management recommendations may be appropriate based on individual patient variables and/or differing society criteria. Right lobe measures: 4.6 x 2.3 x 2.4 cm. Left lobe measures: 4.0 x 1.8 x 1.4 cm. RIGHT-side lymph nodes: No suspicious lymph nodes. LEFT-side lymph nodes: No suspicious lymph nodes. Nodule #1: Location: Right Size: 1.4 x 1.1 x 1.3 cm Prior measurement 1.1 x 0.9 x 1.4 cm Composition: Solid or almost completely solid. 2 points. Echogenicity: Hypoechoic (equal to or more echogenic than strap muscles.) 2 points. Shape: Not taller than wide. 0 points. Margin: Smooth. 0 points. Echogenic foci: None or large comet-tails. 0 points. Total points: 4-6 points. TI-RADS category 4. FNA if 1.5 cm or greater. Follow in 1, 2, 3, and 5 yrs if 1-1.4cm. No significant additional finding. Procedure Note Cayla Hayes MD - 09/18/2023 THYROID SONOGRAPHY, 09/17/2023 1:30 PM CLINICAL HISTORY: Thyroid nodule(s). 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 COMPARISON: 10/04/2022 PROCEDURE COMMENTS: Sonographic evaluation of the thyroid gland perprotocol. Images and technologist notes reviewed. METHODOLOGY: Up to 4 nodules with the highest scores are reported usingthe Thyroid Imaging Reporting and Data System (TI-RADS). This system promotesa common lexicon for thyroid nodule description, focusing on relevantimaging characteristics to allow risk stratification of individual nodules andmakes recommendations for biopsy or sonographic follow-up based on the estimatedrisk profile. Caveat: Deviation from the below TI-RADS management recommendations maybe appropriate based on individual patient variables and/or differingsociety criteria. Right lobe measures: 4.6 x 2.3 x 2.4 cm. Left lobe measures: 4.0 x 1.8 x 1.4 cm. RIGHT-side lymph nodes: No suspicious lymph nodes. LEFT-side lymph nodes: No suspicious lymph nodes. Nodule #1: Location: Right Size: 1.4 x 1.1 x 1.3 cm Prior measurement 1.1 x 0.9 x1.4 cm Composition: Solid or almost completely solid. 2 points. Echogenicity: Hypoechoic (equal to or more echogenic than strap muscles.)2 points. Shape: Not taller than wide. 0 points. Margin: Smooth. 0 points. Echogenic foci: None or large comet-tails. 0 points. Total points: 4-6 points. TI-RADS category 4. FNA if 1.5 cm or greater.Follow in 1, 2, 3, and 5 yrs if 1-1.4cm. No significant additional finding. IMPRESSION: No significant change in nodule right lobe. Recommend follow-up in one year. - Note: Radiology results need to be interpreted within a comprehensiveclinical context. If you have questions about the radiology report, please contactthe office of the ordering clinician. us Lyle Solo MD IMG US ORDERABLES Final Resul t * PHOSPHORUS LEVEL (08/30/2023 1:59 PM EDT) Only the most recent of2 resultswithin the time period is included. Phosphorus 3.8 2.5 - 4.5 mg/dL 08/30/2023 8:01 PM EDT [facility] Blood VENOUS BLOOD / Unknown Venipuncture / Unknown 08/30/2023 1:59 PM EDT 08/30/2023 2:00 PM EDT Abel Hernandez MD CHEMISTRY ORDERABLES Final Resul t [facility] [address] [facility] , [place] [address] * (ABNORMAL) COMPREHENSIVE METABOLIC PANEL (08/30/2023 1:59 PM EDT) Only the most recent of23 resultswithin the time period is included. Sodium 140 136 - 145 mmol/L 08/30/2023 8:01 PM EDT [facility] [employer] Potassium 4.0 3.5 - 5.0 mmol/L 08/30/2023 8:01 PM EDT [facility] Chloride 106 98 - 107 mmol/L 08/30/2023 8:01 PM EDT [facility] Total CO2 21(L) 22 - 29 mmol/L 08/30/2023 8:01 PM EDT [facility] Anion Gap 13 7 - 16 mmol/L 08/30/2023 8:01 PM EDT [facility] Calcium 9.8 8.8 - 10.4 mg/dL 08/30/2023 8:01 PM EDT [facility] Glucose Lvl 218(H) 70 - 99 mg/dL 08/30/2023 8:01 PM EDT [facility] BUN 19 8 - 23 mg/dL 08/30/2023 8:01 PM EDT [facility] Creatinine 1.26 0.67 - 1.30 mg/dL 08/30/2023 8:01 PM EDT [facility] Albumin 4.1 3.2 - 4.6 gm/dL 08/30/2023 8:01 PM EDT [facility] Total Protein 6.3(L) 6.4 - 8.3 gm/dL 08/30/2023 8:01 PM EDT [facility] Bili Total 0.2 0.2 - 1.4 mg/dL 08/30/2023 8:01 PM EDT [facility] ALT 17 <=41 U/L 08/30/2023 8:01 PM EDT [facility] AST 19 <=40 U/L 08/30/2023 8:01 PM EDT [facility] Alk Phos 100 40 - 129 U/L 08/30/2023 8:01 PM EDT [facility] eGFR (CKD-EPIcr 2020) 62 >=60 mL/min/1.7 3 m2 08/30/2023 8:01 PM EDT [facility] Comment:Estimated GFR was ca lculated using the CKD-EPIcr (2020) equation refit without race. The equation is recommended by the National Kid[employer] - [employer] [employer] Neph[employer] Task Force. Blood VENOUS BLOOD / Unknown Venipuncture / Unknown 08/30/2023 1:59 PM EDT 08/30/2023 2:00 PM EDT us Oswaldo Harry MD CHEMISTRY ORDERABLES Fin al Result [facility], [address] , [address] [place] [phone] [facility] [address] [place] [id number] * DIABETIC EYE EXAM (08/15/2023) Right Diabetic Retinopathy Present Present/Not Present [facility] Comment:chronic mild non pro liferative retinopathy Left Diabetic Retinopathy Present Present/Not Present [facility] Comment:chronic mild non pro liferative retinopathy Merle Czirr OD OUTPATIENT REFERRAL ORDERABLE S Final Result Performing Organization Address [facility]/ZIP Co de Phone Number SEP OFFICE * (ABNORMAL) HM DIABETES EYE EXAM (08/15/2023) Left Diabetic Retinopathy Present Present/Not Present [facility] Comment:[place] eye Right Diabetic Retinopathy Present Present/Not Present SE[facility] OFFICE 08/15/2023 Historical Provider HEALTH MAINTENANCE Final Res ult Performing Organization Address [facility] Co de Phone Number SEP OFFICE * NM MYOCARDIAL PERFUSION SPECT STRESS AND REST (06/27/2023 2:47 PM EDT) Only the most recent of2 resultswithin the time period is included. Anatomical Region Laterality Modality Nuclear Medicine 06/27/2023 12:2 5 PM EDT Impressions 06/28/2023 2:11 PM EDT Conclusions * Large inferolateral severe and fixed defect with normal wall motion could be due to severe ischemia vs artifact. * Normal left ventricular size and normal left ventricular systolic function. Narrative Procedure Note Sapphire Munguia MD - 06/28/2023 IMPRESSION Conclusions * Large inferolateral severe and fixed defect with normal wall motioncould be due to severe ischemia vs artifact. * Normal left ventricular size and normal left ventricular systolic function. Sapphire Munguia MD IMG NM CARDIAC ORDERABLES Final Result * ST STRESS TEST LEXISCAN (06/27/2023 2:22 PM EDT) Only the most recent of2 resultswithin the time period is included. Anatomical Region Laterality Modality Cardiac Stress T esting 06/27/2023 1:50 PM EDT Impressions 06/27/2023 3:11 PM EDT [facility] Test Date: 2023-06-27 Pat Name: JACKIE ABDI Department: DEPID Room: Gender: Male Shuttle Preparation Supervisor: Aisha Barth RN : 1955 Requested By: SAPPHIRE MUNGUIA Order Number: [id number] Reading MD: Jimbo Mcdaniel Interpretive Statements Stress Test Lexiscan Ordering Diagnosis: Chest pain, soboe Resting HR: 64 Peak HR: 83 Resting B/P: 140/68 Peak B/P: 127/61 1. Lexiscan 0.4 mg was given IV push at 30 seconds into protocol. 2. Lexiscan injection was done without low level exercise. 3. Was the test changed from Exercise to Lexiscan? no_x__ 4. Termination of test due to protocol completion. 5. Symptoms: sl sob, nausea 6. No Aminophylline given__ 7. Nuclear Imaging reported separately. Physician Interpretation Resting ECG: SR, LBBB with PVCs Arrhythmias: None Conclusion: No ECG evidence of myocardial ischemia with vasodilator Electronically Signed On 06-27-2023 15:11:03 EDT by Jimbo Mcdaniel Narrative Procedure Note Jimbo Mcdaniel MD - 06/27/2023 IMPRESSION [facility] Test Date: 2023-06-27 [facility] Department: DE[facility] Room: Gender: Male Shuttle Preparation Supervisor: Aisah Barth RN : 1955 Requested By: SAPPHIRE MUNGUIA Order Number: [id number] Reading MD: Jimbo Mcdaniel Interpretive Statements Stress Test Lexiscan Ordering Diagnosis: Chest pain, soboe Resting HR: 64 Peak HR: 83 Resting B/P: 140/68 Peak B/P: 127/61 1. Lexiscan 0.4 mg was given IV push at 30 seconds into protocol. 2. Lexiscan injection was done without low level exercise. 3. Was the test changed from Exercise to Lexiscan? no_x__ 4. Termination of test due to protocol completion. 5. Symptoms: sl sob, nausea 6. No Aminophylline given__ 7. Nuclear Imaging reported separately. PhysicianInterpretation Resting ECG: SR, LBBB with PVCs Arrhythmias: None Conclusion: No ECG evidence of myocardial ischemia with vasodilator Electronically Signed On 06-27-2023 15:11:03 EDT by Jimbo Mcdaniel Sapphire Munguia MD IMG STRESS ORDERABLES Amie l Result * CT ANGIOGRAM CHEST ABDOMEN W CONTRAST (06/07/2023 10:48 PM EDT) Anatomical Region Laterality Modality Abdomen, Chest Computed Tomogra phy 06/07/2023 10:4 8 PM EDT Impressions 06/07/2023 10:59 PM EDT 1. No acute findings within the chest or abdomen. 2. Normal caliber thoracoabdominal aorta without CT evidence of acute aortic pathology. 3. No pulmonary embolism. 4. Additional chronic and incidental findings as described within the body of this report. - Note: Radiology results need to be interpreted within a comprehensive clinical context. If you have questions about the radiology report, please contact the office of the ordering clinician. Narrative 06/07/2023 10:[address] ANGIOGRAM CHEST ABDOMEN W CONTRAST 06/07/2023 10:48 PM CLINICAL HISTORY: -Chest Pain. COMPARISON: Renal ultrasound 06/06/2023; thyroid ultrasound 10/04/2022 PROCEDURE COMMENTS: Multidetector CT angiography of the region of interest. Isovue 370 IV contrast given as recorded in EPIC. Multiplanar reconstructions generated and reviewed, including 3D MIPS. Dose 1 : CT DLP Total : 1032.43 mGycm DLP Spiral Max : 617.45 mGycm Maximum CTDI Vol : 20.07 mGy FINDINGS: FINDINGS CT ANGIOGRAPHY: The thoracoabdominal aorta is normal in caliber. No CT evidence of acute aortic pathology. Specifically, no acute intramural hematoma on the unenhanced images or dissection flap on postcontrast imaging. Please note that assessment of the aortic root and ascending thoracic aorta is mildly degraded by cardiac motion artifact. Scattered very mild atherosclerotic plaque. Standard aortic arch branch anatomy. Proximal branch vessels are patent. Pulmonary arteries are unremarkable. Cardiac size is normal. No pericardial effusion. Postoperative changes of CABG. Celiac axis, SMA, renal arteries (2 right and one left), and KIMBERLY are patent. Scattered calcified and noncalcified plaque involving the proximal SMA, origins of the renal arteries, and KIMBERLY. No convincing flow-limiting stenosis on this exam. Coronary artery calcification: Severe. Patient is status post CABG. FINDINGS CT CHEST: SUPPORT DEVICES: None. LOWER CERVICAL REGION: Thyroid gland was much better assessed on comparison thyroid sonography. Please refer to separate report for additional details. LYMPH NODES: No axillary, mediastinal, or hilar lymphadenopathy. Small calcified mediastinal and hilar lymph nodes are compatible with the sequela of remote granulomatous disease. PLEURAL SPACES/DIAPHRAGM: No pleural effusion or pneumothorax. LUNGS: Trachea and proximal bronchi are patent. Lungs are symmetrically inflated. No acute pulmonary process. No suspicious pulmonary nodule. Scattered small bilateral calcified granulomata. UPPER GI TRACT: The esophagus is grossly unremarkable. BODY WALL: No acute osseous abnormality. No aggressive osseous lesion. Postoperative changes in median sternotomy with intact sternal wires. FINDINGS CT ABDOMEN: LIVER: No focal liver lesion. Liver contour is smooth. SPLEEN: Normal in size and without focal lesion. BILIARY TREE: Cholelithiasis without gallbladder wall thickening. No biliary ductal dilatation. PANCREAS: Enhances homogeneously and is without focal lesion or ductal dilatation. ADRENAL GLANDS: Unremarkable. KIDNEYS: Enhance symmetrically. No hydronephrosis or suspicious renal lesion. LYMPH NODES: No retroperitoneal or mesenteric lymphadenopathy. PERITONEUM/MESENTERY/OMENTUM: No free fluid, fluid collection, or extraluminal gas. GI TRACT: No bowel obstruction. No convincing acute bowel inflammatory changes. Prominent retained fecal colonic burden. PELVIC UROGENITAL STRUCTURES: Not imaged. BODY WALL: No acute osseous abnormality. No aggressive osseous lesion. Procedure Note Maged Israel MD - 06/07/2023 CT ANGIOGRAM CHEST ABDOMEN W CONTRAST 06/07/2023 10:48 PM CLINICAL HISTORY: -Chest Pain. COMPARISON: Renal ultrasound 06/06/2023; thyroid ultrasound 10/04/2022 PROCEDURE COMMENTS: Multidetector CT angiography of the region ofinterest. Isovue 370 IV contrast given as recorded in EPIC. Multiplanarreconstructions generated and reviewed, including 3D MIPS. Dose 1 : CT DLP Total : 1032.43 mGycm DLP Spiral Max : 617.45 mGycm Maximum CTDI Vol : 20.07 mGy FINDINGS: FINDINGS CT ANGIOGRAPHY: The thoracoabdominal aorta is normal in caliber. No CT evidence of acuteaortic pathology. Specifically, no acute intramural hematoma on the unenhancedimages or dissection flap on postcontrast imaging. Please note that assessment ofthe aortic root and ascending thoracic aorta is mildly degraded by cardiacmotion artifact. Scattered very mild atherosclerotic plaque. Standard aorticarch branch anatomy. Proximal branch vessels are patent. Pulmonary arteriesare unremarkable. Cardiac size is normal. No pericardial effusion.Postoperative changes of CABG. Celiac axis, SMA, renal arteries (2 right and one left), and KIMBERLY arepatent. Scattered calcified and noncalcified plaque involving the proximal SMA,origins of the renal arteries, and KIMBERLY. No convincing flow-limiting stenosis onthis exam. Coronary artery calcification: Severe. Patient is status post CABG. FINDINGS CT CHEST: SUPPORT DEVICES: None. LOWER CERVICAL REGION: Thyroid gland was much better assessed oncomparison thyroid sonography. Please refer to separate report for additionaldetails. LYMPH NODES: No axillary, mediastinal, or hilar lymphadenopathy. Smallcalcified mediastinal and hilar lymph nodes are compatible with the sequela ofremote granulomatous disease. PLEURAL SPACES/DIAPHRAGM: No pleural effusion or pneumothorax. LUNGS: Trachea and proximal bronchi are patent. Lungs are symmetrically inflated. No acute pulmonary process. No suspicious pulmonary nodule.Scattered small bilateral calcified granulomata. UPPER GI TRACT: The esophagus is grossly unremarkable. BODY WALL: No acute osseous abnormality. No aggressive osseous lesion. Postoperative changes in median sternotomy with intact sternal wires. FINDINGS CT ABDOMEN: LIVER: No focal liver lesion. Liver contour is smooth. SPLEEN: Normal in size and without focal lesion. BILIARY TREE: Cholelithiasis without gallbladder wall thickening. Nobiliary ductal dilatation. PANCREAS: Enhances homogeneously and is without focal lesion or ductal dilatation. ADRENAL GLANDS: Unremarkable. KIDNEYS: Enhance symmetrically. No hydronephrosis or suspicious renallesion. LYMPH NODES: No retroperitoneal or mesenteric lymphadenopathy. PERITONEUM/MESENTERY/OMENTUM: No free fluid, fluid collection, orextraluminal gas. GI TRACT: No bowel obstruction. No convincing acute bowel inflammatorychanges. Prominent retained fecal colonic burden. PELVIC UROGENITAL STRUCTURES: Not imaged. BODY WALL: No acute osseous abnormality. No aggressive osseous lesion. IMPRESSION: 1. No acute findings within the chest or abdomen. 2. Normal caliber thoracoabdominal aorta without CT evidence of acuteaortic pathology. 3. No pulmonary embolism. 4. Additional chronic and incidental findings as described within thebody of this report. - Note: Radiology results need to be interpreted within a comprehensiveclinical context. If you have questions about the radiology report, please contactthe office of the ordering clinician. us Piedad Jimenez MD IM CT ORDERABLES Final Res ult * (ABNORMAL) D-DIMER (06/07/2023 9:49 PM EDT) D-Dimer 510(H) <=500 ng/mL FEU 06/07/2023 10:05 PM EDT [facility] Comment:This is an automated latex enhanced immunoassay for the quantitative determination of D-Dimer that may be used, in conjunction with a clinical pretest probability assessment, to exclude venous thromboembolism in patients suspected of deep venous thrombosis (DVT) and pulmonary embolism (PE). The cutoff for exclusion of DVT and PE is 500 ng/mL Fibrinogen Equivalent Units (FEU). Elevated D-Dimer levels may be associated with PE, DVT, disseminated intravascular coagulation, recent surgery, recent bleeding, , malignancy, and inflammation. Blood VENOUS BLOOD / Unknown Venipuncture / Unknown 06/07/2023 9:49 PM EDT 06/07/2023 9:59 PM EDT Narrative [facility] - 06/07/2023 10:05 PM EDT For patients between the ages of 50 - 75, an age-adjusted D-Dimer cut-off in combination with non-high clinical probability may be considered for the exclusion of venous thromboembolism (calculation = age x 10). MAKAYLA Santoro, et al. [employer]. 2017;166(5):361-363 ADILIA Denny, et al. [employer] 2015;(163):701-711. John Mak, et al. CALIXTO. 2014;(11):3952-2534. us Piedad Jimenez MD HEMATOLOGY ORDERABLES Final Result [facility] [address] [place] [address] * US RENAL AND BLADDER (06/06/2023 4:53 PM EDT) Only the most recent of2 resultswithin the time period is included. Anatomical Region Laterality Modality Abdomen, Pelvis Ultrasound 06/06/2023 4:53 PM EDT Impressions 06/06/2023 6:58 PM EDT No evidence of active obstructive uropathy or other acute finding. - Note: Radiology results need to be interpreted within a comprehensive clinical context. If you have questions about the radiology report, please contact the office of the ordering clinician. Narrative 06/06/2023 6:58 PM EDT US KIDNEYS AND BLADDER, 06/06/2023 4:53 PM CLINICAL HISTORY: N18.32-Chronic kidney disease, stage 3b (HCC)-ICD-10-CM. COMPARISON: None. PROCEDURE COMMENTS: Routine sonographic evaluation of the kidneys and bladder with retail representative images and shuttle threader notes sent to PACS for radiologist review. FINDINGS: RIGHT: 10.8 x 6.4 x 6.4 cm cm. No hydronephrosis, solid-appearing mass, or shadowing stone. LEFT: 11.0 x 4.8 x 5.2 cm cm. No hydronephrosis, solid-appearing mass, or shadowing stone. PELVIS: Prevoid dimensions 9.5 x 8.7 x 8.2 cm. Volume 352 mL. Post void dimension 3.6 x 3.9 x 4.4 cm. Volume 32 mL Procedure Note Suha Jacobs III, MD - 06/06/2023 US KIDNEYS AND BLADDER, 06/06/2023 4:53 PM CLINICAL HISTORY: N18.32-Chronic kidney disease, stage 3b(HCC)-ICD-10-CM. COMPARISON: None. PROCEDURE COMMENTS: Routine sonographic evaluation of the kidneys andbladder with retail representative images and shuttle threader notes sent to PACS forradiologist review. FINDINGS: RIGHT: 10.8 x 6.4 x 6.4 cm cm. No hydronephrosis, solid-appearing mass,or shadowing stone. LEFT: 11.0 x 4.8 x 5.2 cm cm. No hydronephrosis, solid-appearing mass,or shadowing stone. PELVIS: Prevoid dimensions 9.5 x 8.7 x 8.2 cm. Volume 352 mL. Post void dimension 3.6 x 3.9 x 4.4 cm. Volume 32 mL IMPRESSION: No evidence of active obstructive uropathy or other acute finding. - Note: Radiology results need to be interpreted within a comprehensiveclinical context. If you have questions about the radiology report, please contactthe office of the ordering clinician. us Abel Hernandez MD [facility] US ORDERABLES Final Result * POCT URINALYSIS DIPSTICK (06/04/2023 4:06 PM EDT) Only the most recent of15 resultswithin the time period is included. Color, UA yellow CLEAR,YELL OW,ORANGE, RUST [facility] OFFICE Clarity, UA clear CLEAR,CLOU DY [facility] OFF[facility] Glucose, UA neg G/DL% [facility] OFF[facility] Bilirubin, UA neg POS/NEG [facility] Ketones, UA neg POS/NEG [facility] consumer insights intern Grav, UA 1.005 1.001 - 1.035 G/DL [facility] OFF[facility] Blood, UA neg POS/NEG [facility] OFF[facility] pH, UA 5.0 5.0 - 8 [facility] OFF[facility] Protein, UA neg POS/NEG [facility] OFF[facility] Urobilinogen, UA neg 0.2 - 1.0 MG/DL [facility] OFF[facility] Nitrite, UA neg POS/NEG [facility] Leukocytes, UA neg POS/NEG [facility] OFF[facility] UA Appear POC [facility] OFFICE Lot Number [facility] Expiration Date [facility] SeriAl # [facility] Urine 06/04/2023 4:06 PM EDT us Abel Hernandez MD POINT OF CARE TEST ORDERABLES Fi nal Result Performing Organization Address City/[facility]/ZIP Co de Phone Number [facility] OFFICE * LIPASE LEVEL (05/13/2023 10:49 AM EST) Lipase Lvl 51 13 - 60 U/L 05/13/2023 1:17 PM EST [facility] Blood VENOUS BLOOD / Unknown Venipuncture / Unknown 05/13/2023 10:49 AM EST 05/13/2023 10:49 AM EST us Viral Gross V, DO CHEMISTRY ORDERABLES Final Res ult Performing Organization Address [facility] Co de Phone Number [facility] [address] [facility] , [place] [address] * HEPATIC FUNCTION PANEL (05/13/2023 10:49 AM EST) Only the most recent of7 resultswithin the time period is included. Total Protein 6.4 6.4 - 8.3 gm/dL 05/13/2023 1:17 PM EST [facility] Albumin 4.1 3.2 - 4.6 gm/dL 05/13/2023 1:17 PM EST [facility] Bili Direct <0.2 0.0 - 0.3 mg/dL 05/13/2023 1:17 PM EST [facility] Bili Total 0.3 0.2 - 1.4 mg/dL 05/13/2023 1:17 PM EST [facility] AST 13 <=40 U/L 05/13/2023 1:17 PM EST [facility] ALT 15 <=41 U/L 05/13/2023 1:17 PM EST [facility] Alk Phos 117 40 - 129 U/L 05/13/2023 1:17 PM EST [facility] Blood VENOUS BLOOD / Unknown Venipuncture / Unknown 05/13/2023 10:49 AM EST 05/13/2023 10:49 AM EST us Viral Gross V, DO CHEMISTRY ORDERABLES Final Res ult Performing Organization Address City/[facility] de Phone Number [facility] [address] [place] [address] , [place] [address] * THYROID STIMULATING HORMONE (02/19/2023 8:59 AM EST) Only the most recent of12 resultswithin the time period is included. TSH 1.270 0.270 - 4.200 mcIU/mL 02/19/2023 4:47 PM EST [facility] Blood VENOUS BLOOD / Unknown Venipuncture / Unknown 02/19/2023 8:59 AM EST 02/19/2023 8:59 AM EST Narrative [facility] - 02/19/2023 4:47 PM EST Ingestion of joaquin doses of biotin (>5 mg/day) taken within 8 hours of drawing blood sample can interfere with this immunoassay test. Viral Gross V, DO CHEMISTRY ORDERABLES Final Res ult Performing Organization Address [facility] de Phone Number [facility] [address] [place] [address] , [place] [address] * OCT, RETINA - OU - BOTH EYES (10/03/2022 3:40 PM EDT) Narrative [facility] - 10/03/2022 3:40 PM EDT Patient is here for follow up imaging. Notes OD,OS Signal Strength 9/10, 10/10 Average Thickness 243, 250 macular cysts - improved from last visit Merle Kline OD OPHTHALMOLOGY SERVICES ORDERA BLES Final Result Performing Organization Address [facility] de Phone Number [facility] OFF[facility] * T4, FREE (THYROXINE) (10/03/2022 1:57 PM EDT) Only the most recent of5 resultswithin the time period is included. Free T4 1.38 0.80 - 1.80 ng/dL 10/03/2022 8:59 PM EDT [facility] Blood VENOUS BLOOD / Unknown Venipuncture / Unknown 10/03/2022 1:57 PM EDT 10/03/2022 1:57 PM EDT Narrative [facility] - 10/03/2022 8:59 PM EDT Ingestion of joaquin doses of biotin (>5 mg/day) taken within 8 hours of drawing blood sample can interfere with this immunoassay test. us Viral Gross V, DO CHEMISTRY ORDERABLES Final Res ult Performing Organization Address City/[facility]/ZIP Co de Phone Number [facility] [address] [facility] , [place] [address] * (ABNORMAL) POCT GLYCATED HEMOGLOBIN, TOTAL (09/28/2022 12:34 PM EDT) Only the most recent of6 resultswithin the time period is included. Hemoglobin A1C 10(A) 4 - 6 % [facility] Lot Number SEP OFFICE Expiration Date SEP OFFICE SeriAl # SEP OFFICE 09/28/2022 12:3 4 PM EDT us Edith Arehart GRADUATE TEACHER EDUCATION POINT OF CARE TEST ORDERABLES Final Result Performing Organization Address City/[facility] Co de Phone Number SE[facility] OFF[facility] * POCT VERONA FLU+SARS ANTIGEN (09/28/2022 12:33 PM EDT) Only the most recent of2 resultswithin the time period is included. SARS Antigen Negative Negative [facility] Influenza A Antigen Negative Negative [facility] Influenza B Antigen Negative Negative [facility] Lot Number SEP OFFICE Expiration Date SEP OFFICE SeriAl # SEP OFFICE Control Line Yes YES/NO SEP OFFICE 09/28/2022 12:3 3 PM EDT us Edith Arehart GRADUATE TEACHER EDUCATION POINT OF CARE TEST ORDERABLES Final Result [facility] OFF[facility] * POCT VERONA STREP A+ (09/28/2022 12:33 PM EDT) STREP A+ ANTIGEN Negative Negative [facility] OFF[facility] Lot Number SEP OFFICE Expiration Date SEP OFFICE SeriAl # SEP OFFICE Control Line Yes YES/NO SEP OFFICE 09/28/2022 12:3 3 PM EDT us Edith Oropeza GRADUATE TEACHER EDUCATION POINT OF CARE TEST ORDERABLES Final Result [facility] * POCT VERONA INFLUENZA A/B (09/28/2022 11:12 AM EDT) Only the most recent of2 resultswithin the time period is included. Influenza A Antigen Negative Negative 09/28/2022 12:21 PM EDT [facility] Influenza B Antigen Negative Negative 09/28/2022 12:21 PM EDT [facility] Swab SPECIMEN FROM NASOPHARYNGEAL STRUCTURE / Unknown 09/28/2022 11:12 AM EDT 09/28/2022 12:21 PM EDT Edith Oropeza GRADUATE TEACHER EDUCATION POINT OF CARE TEST ORDERABLES Final Result Performing Organization Address City/[facility] Co de Phone Number [address] [address] * (ABNORMAL) LIPID PANEL REFLEX (09/23/2022 11:56 AM EDT) Only the most recent of14 resultswithin the time period is included. Cholesterol 149 <200 mg/dL 09/23/2022 8:48 PM EDT [facility] [employer] Comment: < 200 Desirable 200 - 239 Borderline High >= 240 High Triglyceride 268(H) <150 mg/dL 09/23/2022 8:48 PM EDT [facility] [employer] Comment: < 150 Normal 150 - 199 Borderline High 200 - 499 High >= 500 Very High HDL 29(L) >=40 mg/dL 09/23/2022 8:48 PM EDT [facility] [employer] Comment: > 60 Optimal 40 - 60 Acceptable < 40 Low LDL Calculated 76 <100 mg/dL 09/23/2022 8:48 PM EDT [facility] [employer] Non-HDL-C Calculated 120 <=129 mg/dL 09/23/2022 8:48 PM EDT [facility] [employer] Comment: <130 Desirable 130-159 Above Desirable 160-189 Borderline High 190-219 High >= 220 Very High Fasting Specimen? Yes None 023 8:48 PM EDT [facility] Blood VENOUS BLOOD / Unknown Venipuncture / Unknown 09/23/2022 11:56 AM EDT 09/23/2022 11:57 AM EDT Sapphire Munguia MD CHEMISTRY ORDERABLES Final Result Performing Organization Address City/[facility]/ZIP Co de Phone Number [facility] [address] , [address] [place] [id number] [facility] [address] [place] [address] [id number] * VITAMIN B12/ FOLIC ACID (09/23/2022 11:56 AM EDT) Only the most recent of2 resultswithin the time period is included. Pathologist [facility] Vitamin B12 431 232 - 1,245 pg/mL 09/23/2022 9:24 PM EDT [facility] Folate >16.00 >=4.50 ng/mL 09/23/2022 9:24 PM EDT [facility] Blood VENOUS BLOOD / Unknown Venipuncture / Unknown 09/23/2022 11:56 AM EDT 09/23/2022 11:57 AM EDT Narrative [facility] - 09/23/2022 9:24 PM EDT Ingestion of joaquin doses of biotin (>5 mg/day) taken within 8 hours of drawing blood sample can interfere with this immunoassay test. us Viral Gross V, DO CHEMISTRY ORDERABLES Final Res ult Performing Organization Address City/[facility]/ZIP Co de Phone Number [facility] [address] [place] [address] , [place] [address] * MAGNESIUM LEVEL (09/23/2022 11:56 AM EDT) Only the most recent of4 resultswithin the time period is included. Pathologist [facility] Magnesium 2.3 1.6 - 2.4 mg/dL 09/23/2022 8:49 PM EDT [facility] Blood VENOUS BLOOD / Unknown Venipuncture / Unknown 09/23/2022 11:56 AM EDT 09/23/2022 11:57 AM EDT us Viral Gross V, DO CHEMISTRY ORDERABLES Final Res ult [facility] [address] [facility] , [place] [address] * (ABNORMAL) WOUND CULTURE (STAIN INCLUDED) (08/21/2022 4:23 PM EDT) Only the most recent of2 resultswithin the time period is included. Culture Positive Growth(A) 2022 7:37 AM EDT [facility] Culture Abundant growth of Staphylococcus aureus SUSCEPTIBI LITY RESULT 08/26/2022 7:37 AM EDT [facility] PBP2a test Negative 08/26/2022 7:37 AM EDT [facility] Culture Abundant growth of Staphylococcus lugdunensis SUSCEPTIBI LITY RESULT 08/26/2022 7:37 AM EDT [facility] Stain Abundant WBCs(A) 08/27/19 7:37 AM EDT [facility] Stain Moderate Gram positive cocci(A) 08/26/2022 7:37 AM EDT [facility] Drainage ABDOMINAL WALL / Unknown 08/21/2022 4:23 PM EDT 08/21/2022 4:30 PM EDT Narrative Organism Antibiotic Method Susceptibility Staphylococcus aureus Ampicillin SUSCEPTIBILITY RESU LT Staphylococcus aureus Cefazolin SUSCEPTIBILITY RESU LT <=4 ug/mL: Susceptible Staphylococcus aureus Ceftaroline SUSCEPTIBILITY RESU LT Staphylococcus aureus Ceftriaxone SUSCEPTIBILITY RESU LT <=4 ug/mL: Susceptible Staphylococcus aureus Chloramphenicol SUSCEPTIBILITY R ESULT <=8 ug/mL: Susceptible Staphylococcus aureus Ciprofloxacin SUSCEPTIBILITY RES ULT <=1 ug/mL: Susceptible Staphylococcus aureus Clindamycin SUSCEPTIBILITY RESU LT <=0.25 ug/mL: Resistant Staphylococcus aureus Daptomycin SUSCEPTIBILITY RESU LT Staphylococcus aureus Erythromycin SUSCEPTIBILITY RESU LT >4 ug/mL: Resistant Staphylococcus aureus Gentamicin SUSCEPTIBILITY RESU LT <=1 ug/mL: Susceptible Staphylococcus aureus Gentamicin synergy SUSCEPTIBILIT Y RESULT Staphylococcus aureus Levofloxacin SUSCEPTIBILITY RESU LT <=0.5 ug/mL: Susceptible Staphylococcus aureus Linezolid SUSCEPTIBILITY RESU LT Staphylococcus aureus Moxifloxacin SUSCEPTIBILITY RESU LT <=0.25 ug/mL: Susceptible Staphylococcus aureus Nitrofurantoin SUSCEPTIBILITY RE SULT Staphylococcus aureus Oxacillin SUSCEPTIBILITY RESU LT <=0.25 ug/mL: Susceptible Staphylococcus aureus Penicillin SUSCEPTIBILITY RESU LT Staphylococcus aureus Rifampin SUSCEPTIBILITY RESU LT <=1 ug/mL: Susceptible Staphylococcus aureus Streptomycin synergy SUSCEPTIBIL ITY RESULT Staphylococcus aureus Synercid SUSCEPTIBILITY RESU LT Staphylococcus aureus Tetracycline SUSCEPTIBILITY RESU LT <=2 ug/mL: Susceptible Staphylococcus aureus Tigecycline SUSCEPTIBILITY RESU LT Staphylococcus aureus Trimethoprim/Sulfa meth oxazole SUSCEPTIBILITY RESULT <=0.5/9.5 ug/mL: Susceptible Staphylococcus aureus Vancomycin SUSCEPTIBILITY RESU LT 0.5 ug/mL: Susceptible Comment: This organism is presumed to be Clindamycin resistant based on detection of inducible resistance to this drug. Rifampin and Gentamicin should not be used alone for antimicrobial therapy. For methicillin resistant staphylococci, ciprofloxacin should also not be used alone. Staphylococcus lugdunensis Ampicillin SUSCEPTIBILITY RESULT Staphylococcus lugdunensis Cefazolin SUSCEPTIBILITY RESULT <=4 ug/mL: Susceptible Staphylococcus lugdunensis Ceftaroline SUSCEPTIBILITY RESULT Staphylococcus lugdunensis Ceftriaxone SUSCEPTIBILITY RESULT <=4 ug/mL: Susceptible Staphylococcus lugdunensis Chloramphenicol SUSCEPTIBILITY RESULT <=8 ug/mL: Susceptible Staphylococcus lugdunensis Ciprofloxacin SUSCEPTIBILITY RESULT <=1 ug/mL: Susceptible Staphylococcus lugdunensis Clindamycin SUSCEPTIBILITY RESULT <=0.25 ug/mL: Susceptible Staphylococcus lugdunensis Daptomycin SUSCEPTIBILITY RESULT <=0.25 ug/mL: Susceptible Staphylococcus lugdunensis Erythromycin SUSCEPTIBILITY RESULT <=0.25 ug/mL: Susceptible Staphylococcus lugdunensis Gentamicin SUSCEPTIBILITY RESULT <=1 ug/mL: Susceptible Staphylococcus lugdunensis Gentamicin synergy SUSCEPTIBILITY RESULT Staphylococcus lugdunensis Levofloxacin SUSCEPTIBILITY RESULT <=0.5 ug/mL: Susceptible Staphylococcus lugdunensis Linezolid SUSCEPTIBILITY RESULT <=0.5 ug/mL: Susceptible Staphylococcus lugdunensis Moxifloxacin SUSCEPTIBILITY RESULT <=0.25 ug/mL: Susceptible Staphylococcus lugdunensis Nitrofurantoin SUSCEPTIBILITY RESULT Staphylococcus lugdunensis Oxacillin SUSCEPTIBILITY RESULT 0.5 ug/mL: Susceptible Staphylococcus lugdunensis Penicillin SUSCEPTIBILITY RESULT <=0.03 ug/mL: Resistant Staphylococcus lugdunensis Rifampin SUSCEPTIBILITY RESULT <=1 ug/mL: Susceptible Staphylococcus lugdunensis Streptomycin synergy SUSCEPTIBILITY RESULT Staphylococcus lugdunensis Synercid SUSCEPTIBILITY RESULT Staphylococcus lugdunensis Tetracycline SUSCEPTIBILITY RESULT <=2 ug/mL: Susceptible Staphylococcus lugdunensis Tigecycline SUSCEPTIBILITY RESULT Staphylococcus lugdunensis Trimethoprim/Sulfameth oxazole SUSCEPTIBILITY RESULT <=0.5/9.5 ug/mL: Susceptible Staphylococcus lugdunensis Vancomycin SUSCEPTIBILITY RESULT 0.5 ug/mL: Susceptible Comment:Rifampin and Gentami nadia should not be used alone for antimicrobial therapy. For methicillin resistant staphylococci, ciprofloxacin should also not be used alone. us Deepak Garza MD MICROBIOLOGY - GENERAL ORDE [facility] Final Result [facility] [facility] [address] [place] [address] , [place] [address] * [place] EVALUATE PSEUDOANEURYSM RIGHT (08/21/2022 9:09 AM EDT) Only the most recent of2 resultswithin the time period is included. Anatomical Region Laterality Modality Vascular Vascular Imaging 08/21/2022 8:45 AM EDT Impressions 08/21/2022 11:45 AM EDT Conclusions * No evidence of a pseudoaneurysm is noted in the right groin. * The right common femoral, profunda femoral, and superficial femoral arteries all appear widely patent. * The right common femoral and superficial femoral veins appear widely patent. Narrative Procedure Note Nestor Frausto MD - 08/21/2022 IMPRESSION Conclusions * No evidence of a pseudoaneurysm is noted in the right groin. * The right common femoral, profunda femoral, and superficial femoral arteries all appear widely patent. * The right common femoral and superficial femoral veins appear widely patent. Sheeba Shah MD IMG VASCULAR ORDERABLES Final Result * EC ECHOCARDIOGRAM 2D M MODE COMPLETE W CONTRAST (08/19/2022 3:33 PM EDT) LV DIASTOLIC PLAX 5.38 cm PYRAMIS Ejection Fraction 30-35% PYRAMIS MITRAL REGURGITATION trace PYRAMIS AORTIC STENOSIS no PYRAMIS Anatomical Region Laterality Modality Electrocardiogra phy 08/19/2022 2:49 PM EDT Impressions 08/20/2022 11:22 AM EDT Conclusions * Left ventricular chamber dimension is normal. * Left ventricular function is moderately reduced with an estimated ejection fraction of 30-35%. * There is moderately increased left ventricular wall thickness. * Left ventricular segmental wall motion is abnormal. * Right ventricular systolic function is normal. * There is trace mitral valve regurgitation. * No evidence of apical thrombus. Narrative Procedure Note Altaf Yañez MD - 08/20/2022 IMPRESSION Conclusions * Left ventricular chamber dimension is normal. * Left ventricular function is moderately reduced with an estimatedejection fraction of 30-35%. * There is moderately increased left ventricular wall thickness. * Left ventricular segmental wall motion is abnormal. * Right ventricular systolic function is normal. * There is trace mitral valve regurgitation. * No evidence of apical thrombus. Nimisha Rodriguez DO IM ECHO ORDERABLES Final Res ult * PROCALCITONIN (08/19/2022 5:11 AM EDT) Pathologist [facility] Procalcitonin 0.09 <=0.49 ng/mL 08/19/2022 6:02 AM EDT [facility] Blood VENOUS BLOOD / Unknown Venipuncture / Unknown 08/19/2022 5:11 AM EDT 08/19/2022 5:29 AM EDT Narrative [facility] - 08/19/2022 6:02 AM EDT Procalcitonin <0.50 ng/mL: Procalcitonin levels below 0.50 ng/mL on the first day of ICU admission represent a low risk for progression to severe sepsis and/or septic shock Procalcitonin >=0.50 ng/mL and <=2.00 ng/mL: If the procalcitonin measurement is performed shortly after the systemic infection process has started (usually less than 6 hours), this value may still be low. As various non-infectious conditions are known to induce procalcitonin as well, procalcitonin levels between 0.50 ng/mL and 2.00 ng/mL should be reviewed carefully to take into account the specific clinical background and condition(s) of the patient. Procalcitonin >2.00 ng/mL: Procalcitonin levels above 2.00 ng/mL on the first day of ICU admission represent a high risk for progression to severe sepsis and/or septic shock. Nimisha Rodriguez DO CHEMISTRY ORDERABLES Final Re sult [facility] [address] [place] [address] * CT PELVIS W CONTRAST (08/18/2022 6:06 PM EDT) Anatomical Region Laterality Modality Pelvis Computed Tomogra phy 08/18/2022 6:06 PM EDT Addenda Addendum by Nikunj Lewis MD on 08/18/2022 6:40 PM EDT By history, this patient recently underwent cardiac catheterization. The 6 cm mass at the RIGHT groin could certainly represent hematoma rather than lymphadenopathy. Clinical follow-up to prove resolution is recommended. Impressions 08/18/2022 6:18 PM EDT 6 cm diameter soft tissue mass at the RIGHT groin correlating with the palpable abnormality. This is suspicious for neoplasia. It could be easily and safely biopsied under ultrasound guidance if needed. - Note: Radiology results need to be interpreted within a comprehensive clinical context. If you have questions about the radiology report, please contact the office of the ordering clinician. Narrative 08/18/2022 6:[address] PELVIS W CONTRAST, 08/18/2022 6:06 PM CLINICAL HISTORY: -Lymphadenopathy, groin. COMPARISON: None. PROCEDURE COMMENTS: Multidetector CT of the region of interest, per protocol. Dose 1 : CT DLP Total : 771.5 mGycm DLP Spiral Max : 771.5 mGycm Maximum CTDI Vol : 21.2 mGy FINDINGS: 6 cm diameter soft tissue mass with surrounding induration correlating with the palpable abnormality in the RIGHT groin. Remaining regional lymph nodes are normal size. LEFT groin region unremarkable. No pelvic lymphadenopathy. No abnormal fluid. Findings related to prior transurethral resection of the prostate procedure noted. Procedure Note Nikunj Lewis MD - 08/18/2022 CT PELVIS W CONTRAST, 08/18/2022 6:06 PM CLINICAL HISTORY: -Lymphadenopathy, groin. COMPARISON: None. PROCEDURE COMMENTS: Multidetector CT of the region of interest, perprotocol. Dose 1 : CT DLP Total : 771.5 mGycm DLP Spiral Max : 771.5 mGycm Maximum CTDI Vol : 21.2 mGy FINDINGS: 6 cm diameter soft tissue mass with surrounding induration correlatingwith the palpable abnormality in the RIGHT groin. Remaining regional lymph nodesare normal size. LEFT groin region unremarkable. No pelvic lymphadenopathy.No abnormal fluid. Findings related to prior transurethral resection of the prostate procedure noted. IMPRESSION: 6 cm diameter soft tissue mass at the RIGHT groin correlating with the palpable abnormality. This is suspicious for neoplasia. It could beeasily and safely biopsied under ultrasound guidance if needed. - Note: Radiology results need to be interpreted within a comprehensiveclinical context. If you have questions about the radiology report, please contactthe office of the ordering clinician. us Jessica Wallis MD IMG CT ORDERABLES Edited Res ult - Final * CT FACIAL BONES WO CONTRAST (06/09/2022 5:23 PM EDT) Anatomical Region Laterality Modality Head Computed Tomogra phy 06/09/2022 5:23 PM EDT Impressions 06/09/2022 5:43 PM EDT No definite fracture identified. Soft tissue hematoma in the subcutaneous fat overlying the right cheek. 2 parotid masses on the right. A larger deep parotid mass and a smaller superficial parotid mass. Left maxillary central incisorperiapical abscess. - Note: Radiology results need to be interpreted within a comprehensive clinical context. If you have questions about the radiology report, please contact the office of the ordering clinician. Narrative 06/09/2022 5:[address] FACIAL BONES WO CONTRAST, 06/09/2022 5:23 PM CLINICAL HISTORY: -Trauma. COMPARISON: None. PROCEDURE COMMENTS: Multidetector CT scanning of the maxillofacial region with multiplanar reformats. Dose 1 : CT DLP Total : 654.3 mGycm DLP Spiral Max : 654.3 mGycm Maximum CTDI Vol : 28.8 mGy FINDINGS: BONES: Nasal bones, zygomatic arches, pterygoid plates intact. Orbital and maxillary sinus waller intact. There is a periapical abscess around the left central incisor in the maxillary region.. SINUSES: No sinus hematoma or air-fluid level. ORBITS: No orbital hematoma or mass. Globes intact. OTHER: Incidental note is a low-density right parotid gland mass measuring 16 mm in the deep lobe of the right parotid gland. There is a second similar-appearing more superficial 7 mm mass in the right parotid gland.. There is soft tissue hematoma in the subcutaneous venous fat overlying the right cheek. Procedure Note Suha Jacobs III, MD - 06/09/2022 CT FACIAL BONES WO CONTRAST, 06/09/2022 5:23 PM CLINICAL HISTORY: -Trauma. COMPARISON: None. PROCEDURE COMMENTS: Multidetector CT scanning of the maxillofacial regionwith multiplanar reformats. Dose 1 : CT DLP Total : 654.3 mGycm DLP Spiral Max : 654.3 mGycm Maximum CTDI Vol : 28.8 mGy FINDINGS: BONES: Nasal bones, zygomatic arches, pterygoid plates intact. Orbitaland maxillary sinus waller intact. There is a periapical abscess around theleft central incisor in the maxillary region.. SINUSES: No sinus hematoma or air-fluid level. ORBITS: No orbital hematoma or mass. Globes intact. OTHER: Incidental note is a low-density right parotid gland mass [id number] mm in the deep lobe of the right parotid gland. There is a secondsimilar-appearing more superficial 7 mm mass in the right parotid gland.. There is softtissue hematoma in the subcutaneous venous fat overlying the right cheek. IMPRESSION: No definite fracture identified. Soft tissue hematoma in the subcutaneous fat overlying the right cheek. 2 parotid masses on the right.A larger deep parotid mass and a smaller superficial parotid mass. Leftmaxillary central incisorperiapical abscess. - Note: Radiology results need to be interpreted within a comprehensiveclinical context. If you have questions about the radiology report, please contactthe office of the ordering clinician. Peggy Lama DO [facility] CT ORDERABLES Final Resul t * CT HEAD WO CONTRAST (06/09/2022 5:21 PM EDT) Only the most recent of2 resultswithin the time period is included. Anatomical Region Laterality Modality Head Computed Tomogra phy 06/09/2022 5:21 PM EDT Impressions 06/09/2022 5:34 PM EDT No acute intracranial abnormality. - Note: Radiology results need to be interpreted within a comprehensive clinical context. If you have questions about the radiology report, please contact the office of the ordering clinician. Narrative 06/09/2022 5:[address] HEAD WO CONTRAST 06/09/2022 5:21 PM CLINICAL HISTORY: -Trauma. COMPARISON: Noncontrast head CT 12/01/2019. PROCEDURE COMMENTS: Routine noncontrast head CT with multiplanar reconstructions. Dose 1 : CT DLP Total : 1055.2 mGycm DLP Spiral Max : 1055.2 mGycm Maximum CTDI Vol : 58.7 mGy FINDINGS: No evidence of acute stroke, mass, or hemorrhage. No fracture or extra-axial collection. Mild white matter density alteration is nonspecific, but compatible with chronic small vessel ischemia. Included portions of the paranasal sinuses, mastoids, and orbits unremarkable. Procedure Note Deujan Parker MD - 06/09/2022 CT HEAD WO CONTRAST 06/09/2022 5:21 PM CLINICAL HISTORY: -Trauma. COMPARISON: Noncontrast head CT 12/01/2019. PROCEDURE COMMENTS: Routine noncontrast head CT with multiplanar reconstructions. Dose 1 : CT DLP Total : 1055.2 mGycm DLP Spiral Max : 1055.2 mGycm Maximum CTDI Vol : 58.7 mGy FINDINGS: No evidence of acute stroke, mass, or hemorrhage. No fracture orextra-axial collection. Mild white matter density alteration is nonspecific, butcompatible with chronic small vessel ischemia. Included portions of the paranasal sinuses, mastoids, and orbitsunremarkable. IMPRESSION: No acute intracranial abnormality. - Note: Radiology results need to be interpreted within a comprehensiveclinical context. If you have questions about the radiology report, please contactthe office of the ordering clinician. us Peggy Lama DO IMG CT ORDERABLES Final Resul t * PROSTATE SPECIFIC ANTIGEN (SCREENING) (05/27/2022 9:07 AM EDT) Only the most recent of6 resultswithin the time period is included. Total Psa 0.25 <=4.00 ng/mL 05/27/2022 2:59 PM EDT [facility] Blood VENOUS BLOOD / Unknown Venipuncture / Unknown 05/27/2022 9:07 AM EDT 05/27/2022 9:07 AM EDT Narrative [facility] - 05/27/2022 2:59 PM EDT The Gael Elecsys total PSA electrochemiluminescence (ECLIA) immunoassay is used. Results obtained with different test methods or kits cannot be used interchangeably. The Gael method is approved for use as an aid in the detection of prostate cancer when used in conjunction with a digital rectal exam in individuals with a prostate aged 50 years or older. The assay is also indicated for the serial measurement of PSA to aid in the prognosis and management of prostate cancer patients. Elevated tPSA concentrations can only suggest the presence of prostate cancer until biopsy is performed. Levels may also be elevated in benign prostatic hyperplasia or inflammatory conditions of the prostate. us Carlos A Rey DO CHEMISTRY ORDERABLES Final Res ult [facility] [address] [place] [address] , [place] [address] * XR KNEE RIGHT AP LATERAL AND SUNRISE STANDING (05/19/2022 8:20 AM EST) Pia Eaton - 05/19/2022 8:20 AM EST Please see physician's note from office encounter for x-ray imaging result us Frederic Almaguer APRN IMG DIAGNOSTIC IMAGING ORDERAB LES Final Result * XR KNEE LEFT AP LATERAL AND SUNRISE STANDING (04/28/2022 1:10 PM EST) Narrative Javyuser, Pia - 04/28/2022 1:10 PM EST Please see physician's note from office encounter for x-ray imaging result us Frederic Almaguer APRN IMG DIAGNOSTIC IMAGING ORDERAB LES Final Result * OH ARTHROCENTESIS ASPIR&/INJ MAJOR JT/BURSA W/O US (04/28/2022 1:00 PM EST) Narrative [facility] - 04/28/2022 1:00 PM EST Allison Meléndez, RT 04/30/2022 6:41 PM Large Joint Injection/Arthrocentesis: L knee on 04/28/2022 1:00 PM Indications: pain Details: 22 G needle, anterior approach Aspirate: 60 mL yellow Outcome: tolerated well, no immediate complications Consent was given by the patient. Patient was prepped and draped in the usual sterile fashion. us Frederic Almaguer APRN PROCEDURE/MINOR SURGICAL ORDER SIOBHAN Final Result [facility] [address] [place] [address] * XR KNEE LEFT AP LAT INT EXT OBLIQUES AND SUNRISE (04/26/2022 8:16 PM EST) Anatomical Region Laterality Modality Knee Radiographic Kimberly ging 04/26/2022 8:16 PM EST Impressions 04/26/2022 8:20 PM EST Moderate joint effusion but no acute bony abnormality. 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 - Note: Radiology results need to be interpreted within a comprehensive clinical context. If you have questions about the radiology report, please contact the office of the ordering clinician. Narrative 04/26/2022 8:20 PM EST XR KNEE LEFT AP LAT INT EXT OBLIQUES AND SUNRISE, 04/26/2022 8:16 PM CLINICAL HISTORY: -KNEE PAIN COMPARISON: None. PROCEDURE COMMENTS: XR KNEE LEFT AP LAT INT EXT OBLIQUES AND SUNRISE FINDINGS: No evidence of knee fracture or malalignment. Moderate joint effusion. Mild to moderate osteoarthritic alterations are noted. Procedure Note Maria Teresa Gross MD - 04/26/2022 XR KNEE LEFT AP LAT INT EXT OBLIQUES AND SUNRISE, 04/26/2022 8:16 PM CLINICAL HISTORY: -KNEE PAIN COMPARISON: None. PROCEDURE COMMENTS: XR KNEE LEFT AP LAT INT EXT OBLIQUES AND SUNRISE FINDINGS: No evidence of knee fracture or malalignment. Moderate jointeffusion. Mild to moderate osteoarthritic alterations are noted. IMPRESSION: Moderate joint effusion but no acute bony abnormality. Mild to moderateprimary osteoarthritis. - Note: Radiology results need to be interpreted within a comprehensiveclinical context. If you have questions about the radiology report, please contactthe office of the ordering clinician. us Tameka Simi Carolina GRADUATE [employer]UCATION IMG DIAGNOSTIC IMAGING ORDERA BLES Final Result * (ABNORMAL) POCT EKG (03/07/2022 9:44 AM EST) Only the most recent of9 resultswithin the time period is included. 03/07/2022 9:44 AM EST Impressions [facility] - 03/07/2022 9:44 AM EST Sinus rhythm with frequent ventricular ectopy. Complete left bundle branch block Jeffy Fuentes MD POINT OF CARE CARDIOLOGY Final R esult SE[facility] OFFICE * IR GUIDED INJECT TRANSFORAMINAL EPIDUR LUMB OR SACRAL SINGLE LVL (01/12/2022 2:58 PM EDT) Anatomical Region Laterality Modality Radio Fluoroscop y Narrative 01/12/2022 3:36 PM EDT [facility] PROCEDURE NOTE Jackie Abdi January 12, 2022 SURGEON(S): Carlos Langston MD PRE-OP DIAGNOSIS: 1. Lumbosacral radiculopathy POST-OP DIAGNOSIS: 1. Lumbosacral radiculopathy IMAGING: Fluoroscopy PROCEDURE: Lumbar Transforaminal Epidural Steroid Injection Under Fluoroscopic Guidance Level: Right L3/L4 PROCEDURE DETAILS: The patient was met in the holding area, the risks and benefits of the procedure were discussed, and the patient expressed understanding. Signed, informed consent was obtained, the patient elected to proceed, and they were transported to the procedure suite. The patient was placed in position on the procedure table. All pressure points were checked and comfortably padded awake. A timeout was performed. Using sterile technique, appropriate attire was donned, and the operative area was prepped and draped in the usual sterile fashion. Multiple fluoroscopic views were used to optimize the approach to the neural foramina. After identification of the Right L3/L4 neural foramen, the skin was anesthetized with 1% Lidocaine. A 22 gauge 5 inch spinal needle was then placed in the skin and advanced under intermittent fluoroscopic guidance in a coaxial fashion via oblique view. Needle tip position was confirmed within the cephalad aspect of the foramen, approximating the 6 o'clock position of the pedicle on AP view. After negative aspiration, approximately 1 mL of Isovue 200 was injected at each site - demonstrating an epidurogram and neurogram. Again, after negative aspiration, a total of 80 mg Kenalog was slowly injected (evenly divided among all sites) followed by preservative free 1% Lidocaine 1 mL per level. The washout of the medication was confirmed with good spread of the medication into the epidural space at the appropriate level and into the nerve root. The patient tolerated the procedure well, and all needles were removed. Pressure was held at the puncture sites to prevent ecchymoses, and sterile dressings were applied. The patient suffered no adverse events or complications. The patient was able to ambulate without assistance in stable condition. The patient was given post-operative instructions, and they will follow up in the pain clinic or present to the ER in case of emergency. EBL: approx 0-1cc Images of procedure found under images tab dated: 01/12/2022 DISPOSITION/POST PROC COURSE: The patient was monitored for any adverse hemodynamic, allergic, or neurological symptoms. The patient tolerated the procedure well with no apparent complications. Vital signs remained stable throughout the procedure. The patient was taken to the recovery area where written discharge instructions for the procedure were given. The patient was discharged home. Carlos Langston MD Interventional Pain Management [facility] Date: 01/12/2022 us Carlie Connolly GRADUATE TEACHER EDUCATION IMG IR ORDERABLES Final Resu lt * COMPLIANCE PANEL, URINE (01/03/2022 10:15 AM EDT) Medications Expected Tramadol 12/11 7:00 PM EDT [facility] Barbiturates Absent Cutoff 200 ng/mL 01/05/2022 7:00 PM EDT [facility] THC <10 Cutoff 10 ng/mL ng/mL 01/05/2022 7:00 PM EDT [facility] Comment:7-kswdhic-tnudocfify cannabinol; does not distinguish between prescribed and illicit forms THC Glucuronide <10 Cutoff 10 ng/mL ng/mL 01/05/2022 7:00 PM EDT [facility] Comment:Metabolite of THC Amphetamine <50 Cutoff 50 ng/mL ng/mL 01/05/2022 7:00 PM EDT [facility] Comment:e.g., Adderall, Vyva nse, Dexedrine, Obetrol MDA <50 Cutoff 50 ng/mL ng/mL 01/05/2022 7:00 PM EDT [facility] Comment:Metabolite of MDMA, and MDEA MDEA <50 Cutoff 50 ng/mL ng/mL 01/05/2022 7:00 PM EDT [facility] Comment:e.g., Jewell MDMA <50 Cutoff 50 ng/mL ng/mL 01/05/2022 7:00 PM EDT [facility] Comment:e.g., Ecstasy, Rupa Methamphetamine <50 Cutoff 50 ng/mL ng/mL 01/05/2022 7:00 PM EDT [facility] Comment:d- and l- isomers ar e not distinguished by this test; may reflect Titi's inhaler, Desoxyn, Selegiline, or illicit source Phentermine <50 Cutoff 50 ng/mL ng/mL 01/05/2022 7:00 PM EDT [facility] Comment:e.g., Adipex, Lomair a, Ionamin,Fastin,Zantryl Gabapentin <50 Cutoff 50 ng/mL ng/mL 01/05/2022 7:00 PM EDT [facility] Comment:e.g, Neurontin Pregabalin <50 Cutoff 50 ng/mL ng/mL 01/05/2022 7:00 PM EDT [facility] Comment:Lyrica Alprazolam <10 Cutoff 10 ng/mL ng/mL 01/05/2022 7:00 PM EDT [facility] Comment:e.g, Xanax, Niravam alpha-Hydroxyalprazolam <25 Cutoff 2 5 ng/mL ng/mL 01/05/2022 7:00 PM EDT [facility] Comment:Metabolite of Alpraz olam Clonazepam <10 Cutoff 10 ng/mL ng/mL 01/05/2022 7:00 PM EDT [facility] Comment:e.g., Klonopin, Clon opin 7-Aminoclonazepam <25 Cutoff 25 ng/mL ng/mL 01/05/2022 7:00 PM EDT [facility] Comment:Metabolite of Clonaz epam Diazepam <10 Cutoff 10 ng/mL ng/mL 01/05/2022 7:00 PM EDT [facility] Comment:e.g, Valium, Diastat Nordiazepam <25 Cutoff 25 ng/mL ng/mL 01/05/2022 7:00 PM EDT [facility] Comment:Metabolite of Chlord iazepoxide(Librium), Clorazepate(Tranxene), Diazepam, Halazepam, (Alapryl), Prazepam(Centrax) Flunitrazepam <50 Cutoff 50 ng/mL ng/mL 01/05/2022 7:00 PM EDT [facility] Comment:e.g.,Rohypnol, Narco zep 7-Aminoflunitrazepam <50 Cutoff 50 ng/mL ng/mL 01/05/2022 7:00 PM EDT [facility] Comment:Metabolite of Flunit razepam Flurazepam <50 Cutoff 50 ng/mL ng/mL 01/05/2022 7:00 PM EDT [facility] Comment:e.g., Dalmane Hydroxyethylflurazepam <50 Cutoff 50 ng/mL ng/mL 01/05/2022 7:00 PM EDT [facility] Comment:Metabolite of Fluraz epam Lorazepam <50 Cutoff 50 ng/mL ng/mL 01/05/2022 7:00 PM EDT [facility] Comment:e.g., Ativan Lorazepam Glucuronide <50 Cutoff 50 ng/mL ng/mL 01/05/2022 7:00 PM EDT [facility] Comment:Metabolite of Loraze eduar Midazolam <50 Cutoff 50 ng/mL ng/mL 01/05/2022 7:00 PM EDT [facility] Comment:e.g., Versed alpha-hydroxymidazolam <50 Cutoff 50 ng/mL ng/mL 01/05/2022 7:00 PM EDT [facility] Comment:Metabolite of Versed Oxazepam <50 Cutoff 50 ng/mL ng/mL 01/05/2022 7:00 PM EDT [facility] Comment:e.g., Serax; also Me tabolite of Temazepam, and Nordiazepam Oxazepam Glucuronide <50 Cutoff 50 ng/mL ng/mL 01/05/2022 7:00 PM EDT [facility] Comment:Metabolite of Oxazep am Temazepam <50 Cutoff 50 ng/mL ng/mL 01/05/2022 7:00 PM EDT [facility] Comment:e.g., Restoril; also Metabolite of Diazepam Temazepam Glucuronide <50 Cutoff 50 ng/mL ng/mL 01/05/2022 7:00 PM EDT [facility] Comment:Metabolite of Temaze eduar and Diazepam Triazolam <50 Cutoff 50 ng/mL ng/mL 01/05/2022 7:00 PM EDT [facility] Comment:e.g., Halcion alpha-hydroxytriazolam <50 Cutoff 50 ng/mL ng/mL 01/05/2022 7:00 PM EDT [facility] Comment:Metabolite of Triazo belle Buprenorphine <5 Cutoff 5 ng/mL ng/mL 01/05/2022 7:00 PM EDT [facility] Comment:e.g., Suboxone, Subu alena,Sublocade, Buprenex Buprenorphine Glucuronide <10 Cutoff 10 ng/mL ng/mL 01/05/2022 7:00 PM EDT [facility] Comment:Buprenorphine Metabo lite Norbuprenorphine <5 Cutoff 5 ng/mL ng/mL 01/05/2022 7:00 PM EDT [facility] Comment:Buprenorphine Metabo lite Norbuprenorphine Glucuronide <10 Cutoff 10 ng/mL ng/mL 01/05/2022 7:00 PM EDT [facility] Comment:Buprenorphine Metabo lite Benzoylecgonine <50 Cutoff 50 ng/mL ng/mL 01/05/2022 7:00 PM EDT [facility] Comment:Cocaine Metabolite Fentanyl <1 Cutoff 1 ng/mL ng/mL 01/05/2022 7:00 PM EDT [facility] Comment:e.g.,Duragesic, Oral et, Actiq, Sublimaze, Innovar, Lazanda Norfentanyl <1 Cutoff 1 ng/mL ng/mL 01/05/2022 7:00 PM EDT [facility] Comment:Metabolite of Fentan yl 6-Monoacetylmorphine (6MAM) <10 Cutoff 10 ng/mL ng/mL 01/05/2022 7:00 PM EDT [facility] Comment:Metabolite of Heroin ; Morphine is expected Methadone <50 Cutoff 50 ng/mL ng/mL 01/05/2022 7:00 PM EDT [facility] Comment:e.g., Dolophine, Met hadose, Amidone EDDP <50 Cutoff 50 ng/mL ng/mL 01/05/2022 7:00 PM EDT [facility] Comment:Methadone Metabolite Carisoprodol <100 Cutoff 100 ng/mL ng/mL 01/05/2022 7:00 PM EDT [facility] Comment:e.g., Soma Meprobamate <100 Cutoff 100 ng/mL ng/mL 01/05/2022 7:00 PM EDT [facility] Comment:e.g., Genoa, Equa nil, Micrainin, Equagesic; Metabolite of Carisoprodol Codeine <50 Cutoff 50 ng/mL ng/mL 01/05/2022 7:00 PM EDT [facility] Comment:e.g., Acetaminophen w/Codeine, Tylenol3 w/ Codeine Codeine Glucuronide <50 Cutoff 50 ng/mL ng/mL 01/05/2022 7:00 PM EDT [facility] Comment:Metabolite of Codein e Meperidine <50 Cutoff 50 ng/mL ng/mL 01/05/2022 7:00 PM EDT [facility] Comment:e.g., Demerol, Pethi dine Normeperidine <50 Cutoff 50 ng/mL ng/mL 01/05/2022 7:00 PM EDT [facility] Comment:Metabolite of Meperi dine Morphine <50 Cutoff 50 ng/mL ng/mL 01/05/2022 7:00 PM EDT [facility] Comment:e.g., MS Contin, Cassy anol; Metabolite of Codeine and Heroin; may reflect poppy seed ingestion Ztddtdcd-3-Bcbqutkslfi <25 Cutoff 25 ng/mL ng/mL 01/05/2022 7:00 PM EDT [facility] Comment:Metabolite of Morphi ne. Nshwqxax-5-Ktzcoglceoj <25 Cutoff 25 ng/mL ng/mL 01/05/2022 7:00 PM EDT [facility] Comment:Metabolite of Morphi ne. Naloxone <25 Cutoff 25 ng/mL ng/mL 01/05/2022 7:00 PM EDT [facility] Comment:e.g., Narcan, Evzio Hydrocodone <50 Cutoff 50 ng/mL ng/mL 01/05/2022 7:00 PM EDT [facility] Comment:e.g., Lorcet, Lortab , Vicodin, Downing; Minor Metabolite of Codeine Dihydrocodeine <50 Cutoff 50 ng/mL ng/mL 01/05/2022 7:00 PM EDT [facility] Comment:e.g., Didrate, Parzo ne, Parlor, Synalgos; Metabolite of Hydrocodone Norhydrocodone <50 Cutoff 50 ng/mL ng/mL 01/05/2022 7:00 PM EDT [facility] Comment:Metabolite of Hydroc odone Hydromorphone <50 Cutoff 50 ng/mL ng/mL 01/05/2022 7:00 PM EDT [facility] Comment:e.g., Dilaudid; also Metabolite of Hydrocodone and Minor Metabolite of Morphine Hydromorphone Glucuronide <50 Cutoff 50 ng/mL ng/mL 01/05/2022 7:00 PM EDT [facility] Comment:Metabolite of Hydrom orphone Oxycodone <50 Cutoff 50 ng/mL ng/mL 01/05/2022 7:00 PM EDT [facility] Comment:e.g., Oxycontin, Per cocet, Endocet, Percodan, Roxicet Noroxycodone <50 Cutoff 50 ng/mL ng/mL 01/05/2022 7:00 PM EDT [facility] Comment:Metabolite of Oxycod one Oxymorphone <50 Cutoff 50 ng/mL ng/mL 01/05/2022 7:00 PM EDT [facility] Comment:e.g., Opana; Metabol ite of Oxycodone Oxymorphone Glucuronide <50 Cutoff 5 0 ng/mL ng/mL 01/05/2022 7:00 PM EDT [facility] Comment:Metabolite of Oxycod one Noroxymorphone <50 Cutoff 50 ng/mL ng/mL 01/05/2022 7:00 PM EDT [facility] Comment:Metabolite of Oxycod one, and Oxymorphone, Noroxycodone Metabolite Tramadol <50 Cutoff 50 ng/mL ng/mL 01/05/2022 7:00 PM EDT [facility] Comment:e.g., Ultram, ConZip F-Epxmazkic-dez-Tramadol <50 Cutoff 50 ng/mL ng/mL 01/05/2022 7:00 PM EDT [facility] Comment:Metabolite of Tramad ol Tapentadol <50 Cutoff 50 ng/mL ng/mL 01/05/2022 7:00 PM EDT [facility] Comment:Nucynta Tapentadol-Glucuronide <50 Cutoff 50 ng/mL ng/mL 01/05/2022 7:00 PM EDT [facility] Comment:Metabolite of Tapent adol Urine Creatinine 135.9 mg/dL 01/06/20 7:00 PM EDT [facility] Comment: Greater than 20: Consistent with valid sample Greater than 2 but less than 20: Possible dilution Less than 2: Questionable valid sample Urine URINE SPECIMEN COLLECTION / Unknown 01/03/2022 10:15 AM EDT 01/03/2022 10:15 AM EDT Narrative [facility] - 01/05/2022 7:00 PM EDT The absence of expected drug(s), and/or drug metabolite(s), may indicate non-compliance, diluted or adulterated urine, poor drug absorption, concentration of drug below the cut-off, timing of specimen collection relative to administration of drug, or limitations of testing. If results do not fit clinical expectations, please reach out to the Toxicology department at [phone]. Specimens are held for 7 days. This test was developed, and its performance characteristics determined by [facility] ([facility]). It has not been cleared or approved by the FDA. This test is used for clinical purposes. It should not be regarded as investigational or for research. [facility] is certified under the Clinical Laboratory Improvement Amendments (CLIA) as qualified to perform high complexity clinical laboratory testing. Drea Acuna APRN URINE ORDERABLES Final Result [facility] [address] [facility] , [place] [address] * MRI LUMBAR SPINE WO CONTRAST (12/05/2021 9:37 AM EDT) Only the most recent of2 resultswithin the time period is included. Anatomical Region Laterality Modality Spine, L-spine Magnetic Resonan ce 12/05/2021 9:37 AM EDT Impressions 12/05/2021 10:32 AM EDT Overall findings similar to December 2020 including severe foraminal narrowing at the right L3-L4 and right L4-L5 levels. No new canal or foraminal compromise. - Note: Radiology results need to be interpreted within a comprehensive clinical context. If you have questions about the radiology report, please contact the office of the ordering clinician. Narrative 12/05/2021 10:32 AM EDT MRI LUMBAR SPINE WITHOUT CONTRAST, 12/05/2021 9:37 AM CLINICAL HISTORY: M54.41-Lumbago with sciatica, right suqq-IDS-12-CM G89.29-Other chronic inud-XYW-65-CM. COMPARISON: 01/04/2021 PROCEDURE COMMENTS: Multiplanar multiecho MR imaging of the lumbar spine without contrast. FINDINGS: Degenerative anterolisthesis of L3 on L4 measuring 2 mm, similar to prior examination. Vertebral body heights are maintained. No fracture or worrisome marrow signal abnormality. Severe decubitus space narrowing at L2-L3 and L4-L5. Moderate intervertebral space narrowing at L3-L4. Findings are similar to the previous examination. Conus medullaris is normal in signal and position. No notable paravertebral soft tissue abnormality. Marrow signal: No significant marrow signal alteration or replacement. Level by level analysis: L1-L2: Unchanged mild facet arthropathy. No canal or foraminal compromise. L2-L3: Asymmetric left disc bulge and osteophytic ridging with mild to moderate bilateral facet arthropathy and asymmetric left ligamentum flavum hypertrophy. Findings are similar to previous examination and contribute to moderate left foraminal narrowing and moderate left lateral recess crowding. Mild canal narrowing. L3-L4: Prominent disc bulge with severe bilateral facet arthropathy, similar to prior examination contributing to severe right and moderate left foraminal narrowing. L4-L5: Unchanged asymmetric right disc bulge and osteophytic ridging with moderate bilateral facet arthropathy. This contributes to severe right and mild left foraminal narrowing. There is moderate lateral recess narrowing bilaterally with abutment of both traversing L5 nerve roots, similar to prior examination. L5-S1: Shallow asymmetric left disc bulge with mild bilateral facet arthropathy. No canal or foraminal compromise. Procedure Note Maria Teresa Gross MD - 12/05/2021 MRI LUMBAR SPINE WITHOUT CONTRAST, 12/05/2021 9:37 AM CLINICAL HISTORY: M54.41-Lumbago with sciatica, right ncpc-MIP-68-CM G89.29-Other chronic uoxf-PEU-54-CM. COMPARISON: 01/04/2021 PROCEDURE COMMENTS: Multiplanar multiecho MR imaging of the lumbar spinewithout contrast. FINDINGS: Degenerative anterolisthesis of L3 on L4 measuring 2 mm, similar toprior examination. Vertebral body heights are maintained. No fracture orworrisome marrow signal abnormality. Severe decubitus space narrowing at L2-L3 andL4-L5. Moderate intervertebral space narrowing at L3-L4. Findings are similar tothe previous examination. Conus medullaris is normal in signal and position. No notableparavertebral soft tissue abnormality. Marrow signal: No significant marrow signal alteration or replacement. Level by level analysis: L1-L2: Unchanged mild facet arthropathy. No canal or foraminalcompromise. L2-L3: Asymmetric left disc bulge and osteophytic ridging with mild tomoderate bilateral facet arthropathy and asymmetric left ligamentum flavumhypertrophy. Findings are similar to previous examination and contribute to moderateleft foraminal narrowing and moderate left lateral recess crowding. Mildcanal narrowing. L3-L4: Prominent disc bulge with severe bilateral facet arthropathy,similar to prior examination contributing to severe right and moderate leftforaminal narrowing. L4-L5: Unchanged asymmetric right disc bulge and osteophytic ridgingwith moderate bilateral facet arthropathy. This contributes to severe right andmild left foraminal narrowing. There is moderate lateral recess narrowingbilaterally with abutment of both traversing L5 nerve roots, similar to priorexamination. L5-S1: Shallow asymmetric left disc bulge with mild bilateral facetarthropathy. No canal or foraminal compromise. IMPRESSION: Overall findings similar to December 2020 including severe foraminalnarrowing at the right L3-L4 and right L4-L5 levels. No new canal or foraminalcompromise. - Note: Radiology results need to be interpreted within a comprehensiveclinical context. If you have questions about the radiology report, please contactthe office of the ordering clinician. Drea Acuna APRN [facility] MRI ORDERABLES Final Result * XR THORACIC SPINE AP LATERAL AND SWIMMERS (10/03/2021 5:43 PM EDT) Anatomical Region Laterality Modality T-spine Radio Fluoroscop y 10/03/2021 5:43 PM EDT Impressions 10/03/2021 7:59 PM EDT 1. No gross new or acute thoracic trauma. - Note: Radiology results need to be interpreted within a comprehensive clinical context. If you have questions about the radiology report, please contact the office of the ordering clinician. Narrative 10/03/2021 7:59 PM EDT XR THORACIC SPINE AP LATERAL AND SWIMMERS, 10/03/2021 5:43 PM CLINICAL HISTORY: -Midback pain since yesterday, after fall. COMPARISON: PA and lateral chest 09/20/2017. PROCEDURE COMMENTS: Frontal, lateral, and swimmers views of the thoracic spine per ordered protocol. FINDINGS: Thoracic vertebral bodies appear to have normal heights configuration and alignment. There is multilevel moderate anterior or anterolateral endplate hypertrophy. There is a more confluent anterior ligamentous calcification lower thoracic spine. No gross paraspinal asymmetric soft tissue densities. 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 Upper first and third sternotomy wires are fractured but this was present previously. Partially included on the exam is mid to lower advanced cervical spondylosis. Procedure Note Laxmi Grace MD - 10/03/2021 XR THORACIC SPINE AP LATERAL AND SWIMMERS, 10/03/2021 5:43 PM CLINICAL HISTORY: -Midback pain since yesterday, after fall. COMPARISON: PA and lateral chest 09/20/2017. PROCEDURE COMMENTS: Frontal, lateral, and swimmers views of the thoracicspine per ordered protocol. FINDINGS: Thoracic vertebral bodies appear to have normal heights configurationand alignment. There is multilevel moderate anterior or anterolateralendplate hypertrophy. There is a more confluent anterior ligamentous calcificationlower thoracic spine. No gross paraspinal asymmetric soft tissue densities. There is beenprior sternotomy and CABG. Upper first and third sternotomy wires are fracturedbut this was present previously. Partially included on the exam is mid to lower advanced cervicalspondylosis. IMPRESSION: 1. No gross new or acute thoracic trauma. - Note: Radiology results need to be interpreted within a comprehensiveclinical context. If you have questions about the radiology report, please contactthe office of the ordering clinician. us Lawanda Dutton APRN [facility] DIAGNOSTIC IMAGING DAGOBERTO OCHOA Final Result * XR LUMBAR SPINE AP AND LATERAL (10/03/2021 5:42 PM EDT) Only the most recent of3 resultswithin the time period is included. Anatomical Region Laterality Modality L-spine Radio Fluoroscop y 10/03/2021 5:42 PM EDT Impressions 10/03/2021 8:02 PM EDT 1. No acute fracture or malalignment. 2. Chronic multilevel degenerative disc and facet disease, in part related to dextroscoliosis. - Note: Radiology results need to be interpreted within a comprehensive clinical context. If you have questions about the radiology report, please contact the office of the ordering clinician. Narrative 10/03/2021 8:02 PM EDT AP AND LATERAL LUMBAR SPINE, 10/03/2021 5:42 PM CLINICAL HISTORY: -Back pain after falling yesterday. COMPARISON: Lumbar plain films 12/31/2020 and MRI lumbar spine 01/04/2021. PROCEDURE COMMENTS: 3 views lumbar spine per protocol. FINDINGS: Mid lumbar spine has mild rotatory dextroscoliosis. Vertebral bodies maintain normal height and posterior alignment. Left side of L2-L3 disc space is asymmetrically narrowed and has vacuum disc phenomenon. Other disc space narrowing involves L2-L4 through L5-S1 disc spaces. Nearly all disc levels have moderate to large anterior anterolateral enthesophytes. There may be confluent bony fusion at L1-L2 and L4-L5. Lower lumbar facet joints appear hypertrophic Procedure Note Laxmi Grace MD - 10/03/2021 AP AND LATERAL LUMBAR SPINE, 10/03/2021 5:42 PM CLINICAL HISTORY: -Back pain after falling yesterday. COMPARISON: Lumbar plain films 12/31/2020 and MRI lumbar spine01/04/2021. PROCEDURE COMMENTS: 3 views lumbar spine per protocol. FINDINGS: Mid lumbar spine has mild rotatory dextroscoliosis. Vertebral bodiesmaintain normal height and posterior alignment. Left side of L2-L3 disc space is asymmetrically narrowed and has vacuum disc phenomenon. Other disc space narrowing involves L2-L4 through L5-S1 disc spaces. Nearly all disc levelshave moderate to large anterior anterolateral enthesophytes. There may beconfluent bony fusion at L1-L2 and L4-L5. Lower lumbar facet joints appear hypertrophic IMPRESSION: 1. No acute fracture or malalignment. 2. Chronic multilevel degenerative disc and facet disease, in part relatedto dextroscoliosis. - Note: Radiology results need to be interpreted within a comprehensiveclinical context. If you have questions about the radiology report, please contactthe office of the ordering clinician. us Lawanda Dutton APRN [facility]G DIAGNOSTIC IMAGING [facility] Final Result * XR FOOT RIGHT AP LATERAL AND OBLIQUE (08/29/2021 11:03 AM EDT) Anatomical Region Laterality Modality Foot Radiographic Kimberly ging 08/29/2021 11:0 3 AM EDT Impressions 08/29/2021 12:51 PM EDT No acute osseous findings. - Narrative 08/29/2021 12:51 PM EDT XR FOOT RIGHT AP LATERAL AND OBLIQUE, 08/29/2021 11:03 AM CLINICAL HISTORY: Right foot pain, ulcer. COMPARISON: None. PROCEDURE COMMENTS: Routine views per the ordered protocol. FINDINGS: No acute fracture, dislocation, osteolytic defect, or periostitis. Mild to moderate degenerative changes of the great toe metatarsophalangeal joint. Small posterior and plantar calcaneal enthesophytes. Soft tissue swelling lateral to the fifth metatarsophalangeal joint. No subcutaneous emphysema or radiopaque foreign body. Procedure Note Alfredo Roque MD - 08/29/2021 XR FOOT RIGHT AP LATERAL AND OBLIQUE, 08/29/2021 11:03 AM CLINICAL HISTORY: Right foot pain, ulcer. COMPARISON: None. PROCEDURE COMMENTS: Routine views per the ordered protocol. FINDINGS: No acute fracture, dislocation, osteolytic defect, or periostitis. Mildto moderate degenerative changes of the great toe metatarsophalangeal joint.Small posterior and plantar calcaneal enthesophytes. Soft tissue swelling lateral to the fifth metatarsophalangeal joint. No subcutaneous emphysema or radiopaque foreign body. IMPRESSION: No acute osseous findings. - Eloy Carter DPM IMG DIAGNOSTIC IMAGING ORDERABLES Final Result * IR 2 LEVEL BILATERAL MEDIAL BRANCH BLOCK CERV THOR (07/08/2021 2:47 PM EDT) Anatomical Region Laterality Modality Interventional R adiology Narrative 07/08/2021 5:08 PM EDT [facility] PROCEDURE NOTE Jackie Abdi July 08, 2021 SURGEON(S): Carlos Langston MD PRE-OP DIAGNOSIS: 1. Cervical spondylosis POST-OP DIAGNOSIS: 1. Cervical spondylosis IMAGING: Fluoroscopy PROCEDURE: Bilateral Medial Branch Block of C5, C6, C7 under Fluoroscopy PROCEDURE IN DETAIL: After obtaining informed consent from the patient, the patient's chart was reviewed. The patient was then brought to the procedure room and placed in the prone position. A formal time out was performed identifying the correct patient, correct procedure, reviewing anticoagulation status, reviewing allergies and verifying the correct sites and side. Using sterile technique, appropriate attire was donned, and the operative area was prepped and draped in the usual sterile fashion. The skin over the neck in the area of the cervical spine over the pedicles at C5-7 on the right and left sides was then injected with 1% Lidocaine for local anesthesia. Next, under flouroscopic guidance a 25 gauge 3.5 inch spinal needle was inserted and advanced until it was touching the lateral masses at C5, C6, C7 in the area of the cervical medial brances on the right side. This same procedure was then performed on the left side. The view was confirmed in both the AP and lateral view. Next, after negative aspiration at each level for CSF and heme, a total of 6 mL's of preservative free Bupivacaine 0.25% was injected (1 mL per needle) and the needles were then removed and bandages were applied and the patient was taken to the recovery area in stable condition. Following the procedure the patient's vital signs were stable. The patient was discharged. EBL: approx 0-1cc Images of procedure found under images tab dated: 07/08/2021 DISPOSITION/POST PROC COURSE: The patient was monitored for any adverse hemodynamic, allergic, or neurological symptoms. The patient tolerated the procedure well with no apparent complications. Vital signs remained stable throughout the procedure. The patient was taken to the recovery area where written discharge instructions for the procedure were given. The patient was discharged home. @VITALS@ Carlos Langston MD Interventional Pain Management [facility] Date: 07/08/2021 us Drea Acuna APRN IMG IR ORDERABLES Final Result * IR SACROILIAC JOINT INJECTION (06/24/2021 2:10 PM EDT) Anatomical Region Laterality Modality Interventional R adiology Narrative 06/24/2021 5:32 PM EDT [facility] PROCEDURE NOTE Jackie Abdi June 24, 2021 SURGEON(S): Carlos Langston MD PRE-OP DIAGNOSIS: 1. Sacroiliitis (HCC) POST-OP DIAGNOSIS: 1. Sacroiliitis (HCC) IMAGING: Fluoroscopy PROCEDURE: Bilateral SI Joint Injection under fluoroscopic guidance PROCEDURE IN DETAIL: After obtaining informed consent from the patient, the patient's chart was reviewed. The patient was brought to the procedure room and placed in the prone position. A formal time out was performed identifying the correct patient, correct procedure, reviewing anticoagulation status, reviewing allergies and verifying the correct sites and side. The back was prepped with antiseptic solution and under fluoroscopic guidance the patient's left and right SI joints were identified. Next, 2 mL's of 1% Lidocaine was used to anesthestized the skin over each area. Then a 22-gauge 3.5 inch spinal needle was inserted and advanced under flouroscopic guidance until it was in the lower 1/3 of the SI joint on the left and right side. After negative aspiration, 0.5ml of Isovue 200 was injected with good flow of contrast outlining joint without vascular uptake. Again after negative aspiration, a total of 80 mg of Kenalog along with 4 mL's of 0.25% Marcaine was evenly divided among each injection site. The needles were then flushed with 1% lidocaine and removed. Skin was cleaned and a sterile dressing was applied. Patient tolerated the procedure well without issues and was taken to the recovery area in stable condition. EBL: approx 0-1cc Images of procedure found under images tab dated: 06/24/2021 DISPOSITION/POST PROC COURSE: The patient was monitored for any adverse hemodynamic, allergic, or neurological symptoms. The patient tolerated the procedure well with no apparent complications. Vital signs remained stable throughout the procedure. The patient was taken to the recovery area where written discharge instructions for the procedure were given. The patient was discharged home. @VITALS@ Carlos Langston MD Interventional Pain Management [facility] Date: 06/24/2021 Drea Acuna APRN [facility] IR ORDERABLES Final Result * (ABNORMAL) FRUCTOSAMINE (06/15/2021 7:47 AM EDT) Only the most recent of9 resultswithin the time period is included. Fructosamine 325(H) 205 - 285 mcmol/L 06/15/2021 6:33 PM EDT [facility]REF[facility] [employer] [facility] Blood Venipuncture / Unknown 06/15/2021 7:47 AM EDT 06/15/2021 7:47 AM EDT Narrative [facility]REF[facility] - 06/15/2021 6:33 PM EDT Serum protein level variations may alter fructosamine results. Agustin Graves MD CHEMISTRY ORDERABLES Final Resu lt Performing Organization Address [facility] de Phone Number [facility] [address] , [address] [place] [id number] * C-REACTIVE PROTEIN (06/15/2021 7:47 AM EDT) Only the most recent of11 resultswithin the time period is included. CRP <3.00 <=5.00 mg/L 06/15/2021 3:38 PM EDT [facility] [employer] Blood Venipuncture / Unknown 06/15/2021 7:47 AM EDT 06/15/2021 7:47 AM EDT Agustin Graves MD CHEMISTRY ORDERABLES Final Resu lt Performing Organization Address [facility] Co de Phone Number [facility] [address] , [place] [address] * (ABNORMAL) VITAMIN B12 LEVEL (06/15/2021 7:47 AM EDT) Only the most recent of14 resultswithin the time period is included. Vitamin B12 >1,600(H) 232-1,245 pg/mL 06/15/2021 6:33 PM EDT [facility] [employer] Blood Venipuncture / Unknown 06/15/2021 7:47 AM EDT 06/15/2021 7:47 AM EDT Narrative [facility] - 06/15/2021 6:33 PM EDT Ingestion of joaquin doses of biotin (>5 mg/day) taken within 8 hours of drawing blood sample can interfere with this immunoassay test. Agustin Graves MD CHEMISTRY ORDERABLES Final Resu lt Performing Organization Address [facility] Co de Phone Number [facility] [address] , [place] [address] * C DIFF TOXIN DNA (05/20/2021 7:44 AM EST) C Diff Toxin DNA Negative Negative 05/20/2021 3:39 PM EST [facility] Stool 05/20/2021 7:44 AM EST 05/20/2021 7:44 AM EST [facility] - 05/20/2021 3:39 PM EST Toxin producing C. difficile target DNA sequences are not detected. This qualitative assay is intended for the detection of Clostridium difficile toxin B gene sequences and for presumptive identification of 027/NAP1/BI strains of toxigenic Clostridium difficile from unformed (liquid or soft) stool specimens in patients suspected of having Clostridium difficile infection (CDI). This assay utilizes real time PCR on the [employer] Gene[employer]pert Infinity, and its performance has been verified by the [facility]. A negative result does not rule out the presence of the Clostridium difficile in concentrations below the limit of detection for the assay. Ruthy Montaño MD MICROBIOLOGY - GENERAL ORDERA BLES Final Result Performing Organization Address [facility] Co de Phone Number [facility] [employer] , [place] [address] * SHIGA TOXIN (05/20/2021 7:44 AM EST) Shiga Toxin Shiga toxins (produced by E. coli) not detected. Shiga toxins (produced by E. coli) not detected. 05/20/2021 8:03 PM EST [facility] Stool SPECIMEN FROM RECTUM / Unknown 05/20/2021 7:44 AM EST 05/20/2021 7:44 AM EST Ruthy Montaño MD MICROBIOLOGY - GENERAL ORDERA BLES Final Result Performing Organization Address [facility]/ZIP Co de Phone Number [address], [place] [address] * STOOL CULTURE (NO STAIN) (05/20/2021 7:44 AM EST) Culture No growth of enteric pathogens, including Salmonella, Shigella, Campylobacter, Vibrio, Yersinia, Aeromonas, Plesiomonas, or E. coli O157. 05/23/2021 1:12 PM EDT [facility] Stool SPECIMEN FROM RECTUM / Unknown 05/20/2021 7:44 AM EST 05/20/2021 7:44 AM EST Ruthy Montaño MD MICROBIOLOGY - GENERAL ORDERA BLES Final Result Performing Organization Address [facility] Co de Phone Number [address], [place] [address] * (ABNORMAL) FECAL WHITE BLOOD CELLS (05/20/2021 7:44 AM EST) Fecal WBCs Positive(A ) Negative 05/20/2021 5:42 PM EST [facility] Stool COLON STRUCTURE / Unknown 05/20/2021 7:44 AM EST 05/20/2021 7:44 AM EST Narrative [facility] - 05/20/2021 5:42 PM EST POSITIVE for elevated levels of lactoferrin from white blood cells. Ruthy Montaño MD MICROBIOLOGY - GENERAL ORDERA BLES Final Result Performing Organization Address City/[facility]/ZIP Co de Phone Number [facility] [address] [place] [address] * MRI CERVICAL SPINE WO CONTRAST (04/29/2021 8:15 AM EST) Only the most recent of2 resultswithin the time period is included. Anatomical Region Laterality Modality Spine, C-spine Magnetic Resonan ce 04/29/2021 8:15 AM EST Impressions 04/29/2021 8:58 AM EST Unchanged degenerative disc and facet disease resulting in multilevel spinal canal and foraminal stenosis as described. - Narrative 04/29/2021 8:58 AM EST MRI CERVICAL SPINE WITHOUT CONTRAST, 04/29/2021 8:15 AM CLINICAL HISTORY: Neck pain. COMPARISON: MRI cervical spine 12/03/2019. PROCEDURE COMMENTS: Multiplanar multiecho MR imaging was performed of the cervical spine without contrast. The exam is mildly limited by patient motion artifact despite coaching and repeating sequences. FINDINGS: No acute fracture, concerning marrow abnormality, or definite cord signal abnormality. Mild levocurvature of the cervical spine with unchanged trace retrolisthesis at C5-6. Redemonstrated but incompletely visualized/assessed right parotid gland mass. [id number] analysis: C2-3: Left uncovertebral hypertrophy with bilateral facet arthropathy results in unchanged mild left foraminal stenosis. C3-4: Disc bulge with uncovertebral hypertrophy and mild right/severe left facet arthropathy results in unchanged mild spinal canal stenosis and moderate bilateral foraminal stenosis. C4-5: Disc bulge with uncovertebral hypertrophy and moderate/severe left facet arthropathy results in unchanged mild spinal canal stenosis and moderate bilateral foraminal stenosis. C5-6: Disc bulge with uncovertebral hypertrophy and mild facet arthropathy results in unchanged mild to moderate spinal canal stenosis and moderate bilateral foraminal stenosis. C6-7: Disc bulge with uncovertebral hypertrophy and facet arthropathy results in unchanged mild spinal canal stenosis, mild to moderate right and moderate to severe left foraminal stenosis. C7-T1: Disc bulge with uncovertebral hypertrophy and facet arthropathy results in unchanged mild spinal canal stenosis and moderate bilateral foraminal stenosis. Procedure Note Alfredo Roque MD - 04/29/2021 MRI CERVICAL SPINE WITHOUT CONTRAST, 04/29/2021 8:15 AM CLINICAL HISTORY: Neck pain. COMPARISON: MRI cervical spine 12/03/2019. PROCEDURE COMMENTS: Multiplanar multiecho MR imaging was performed ofthe cervical spine without contrast. The exam is mildly limited by patientmotion artifact despite coaching and repeating sequences. FINDINGS: No acute fracture, concerning marrow abnormality, or definite cordsignal abnormality. Mild levocurvature of the cervical spine with unchangedtrace retrolisthesis at C5-6. Redemonstrated but incompletelyvisualized/assessed right parotid gland mass. Qwnlk-tk-[id number] analysis: C2-3: Left uncovertebral hypertrophy with bilateral facet arthropathyresults in unchanged mild left foraminal stenosis. C3-4: Disc bulge with uncovertebral hypertrophy and mild right/severe leftfacet arthropathy results in unchanged mild spinal canal stenosis and moderate bilateral foraminal stenosis. C4-5: Disc bulge with uncovertebral hypertrophy and moderate/severe leftfacet arthropathy results in unchanged mild spinal canal stenosis and moderate bilateral foraminal stenosis. C5-6: Disc bulge with uncovertebral hypertrophy and mild facetarthropathy results in unchanged mild to moderate spinal canal stenosis and moderate bilateral foraminal stenosis. C6-7: Disc bulge with uncovertebral hypertrophy and facet arthropathyresults in unchanged mild spinal canal stenosis, mild to moderate right and moderateto severe left foraminal stenosis. C7-T1: Disc bulge with uncovertebral hypertrophy and facet arthropathyresults in unchanged mild spinal canal stenosis and moderate bilateral foraminal stenosis. IMPRESSION: Unchanged degenerative disc and facet disease resulting in multilevelspinal canal and foraminal stenosis as described. - Drea Acuna APRN G MRI ORDERABLES Final Result * [place] US CAROTID DUPLEX BILATERAL (04/22/2021 3:42 PM EST) Only the most recent of3 resultswithin the time period is included. Anatomical Region Laterality Modality Vascular, Head, Neck Vascular Im aging 04/22/2021 3:28 PM EST Impressions 04/22/2021 5:44 PM EST CONCLUSIONS Stenosis in Right Proximal ICA at 1-39%. Stenosis in Left Proximal ICA at 1-39%. Vertebral arteries are patent demonstrating antegrade flow, bilaterally. Left vertebral flow velocity is low. Essentially unchanged since previous exam performed on 12/02/19. Narrative Procedure Note Nikunj Dyer Jr., MD - 04/22/2021 IMPRESSION CONCLUSIONS Stenosis in Right Proximal ICA at 1-39%. Stenosis in Left Proximal ICA at 1-39%. Vertebral arteries are patent demonstrating antegrade flow, bilaterally. Left vertebral flow velocity is low. Essentially unchanged since previous exam performed on 12/02/19. us Naveen Lockwood MD IMG VASCULAR ORDERABLES Final R esult * IR 2 LEVEL BILATERAL RFA DESTROY LUMBAR OR SACRAL FACET JNT NERVE (04/05/2021 9:25 AM EST) Only the most recent of2 resultswithin the time period is included. Anatomical Region Laterality Modality Interventional R adiology Narrative 04/05/2021 11:12 AM EST [facility] PROCEDURE NOTE Jackie Abdi April 05, 2021 SURGEON(S): Carlos Langston MD PRE-OP DIAGNOSIS: 1. Spondylosis of lumbar region without myelopathy or radiculopathy POST-OP DIAGNOSIS: 1. Spondylosis of lumbar region without myelopathy or radiculopathy IMAGING: Fluoroscopy PROCEDURE: Radiofrequency Ablation (RFA) of Bilateral Medial Branches at L4, L5 and sacral ala (L5 dorsal ramus) (To Cover Facet Joints at L4/5 and L5/S1) PROCEDURE IN DETAIL: After obtaining written informed consent patient was taken to the procedure room. Pre-procedure blood pressure and pulse were stable and recorded in patients clinic chart. Patient was placed in a prone position and left and right lumbar area was prepped with chloraprep and draped in the usual sterile fashion. A formal time out was performed identifying the correct patient, correct procedure, reviewing anticoagulation status, reviewing allergies and verifying the correct sites and side. The skin over the left sacral ala was injected with 1% Lidocaine for local anesthesia. A 20-gauge RFL 100 mm needle with 10 mm active was inserted and advanced until it was touching the sacral ala in the area of the medial branch from L5 dorsal ramus on the left side. Next, in the oblique view, the left L4 and L5 levels were identified. The skin over the left L4 and L5 sites were then injected with 1% Lidocaine for local anesthesia. Next a 20-gauge RFL 100 mm needle with 10 mm active tip was inserted and advanced until it was touching the left L4 and L5 levels in the distrubution of the medial branches at each level making sure to not enter the neuroforamina on the left side. Following the placement of the needles sensory stimulation at 50 Hz and motor stimulation at 2 Hz was carried out. After confirming reproduction of the pain/sensation in the area of symptoms and the patient denying any motor movement, 2 mL's of 2% preservative free Lidocaine was injected at each level after negative aspiration. The RFA was then carried out in lesion mode. The settings were 80 C, and 90 seconds then turned for another 60 seconds for lesion mode at each level. During the procedure no pain was reported in the extremities by the patient. After the procedure the needles were removed. Next the exact same procedure was then performed on the right side at the L4, L5, Sacral Ala levels. Skin was cleaned and a sterile dressing was applied. Following the procedure the patient's vital signs were stable. The patient was discharged. RFA DATA: Pt achieved sensory stimulation between 0.3-0.6 Volts and negative for any motor involvement up to 2 V EBL: approx 0-1cc Images of procedure found under images tab dated: 04/05/2021 DISPOSITION/POST PROC COURSE: The patient was monitored for any adverse hemodynamic, allergic, or neurological symptoms. The patient tolerated the procedure well with no apparent complications. Vital signs remained stable throughout the procedure. The patient was taken to the recovery area where written discharge instructions for the procedure were given. The patient was discharged home. @VITALS@ Carlos Langston MD Interventional Pain Management [facility] Sp[facility] Date: 04/05/2021 Holley Torres APRN IMG IR ORDERABLES Final Re sult * URIC ACID (03/09/2021 8:32 AM EST) Only the most recent of3 resultswithin the time period is included. Uric Acid 4.9 3.4 - 7.0 mg/dL 03/09/2021 2:30 PM EST [employer] Blood Venipuncture / Unknown 03/09/2021 8:32 AM EST 03/09/2021 8:32 AM EST us Agustin Graves MD CHEMISTRY ORDERABLES Final Resu lt [facility] [employer] [address], [address] [place] [id number] * (ABNORMAL) IRIS DIABETIC RETINOPATHY EXAM (02/14/2021 1:39 PM EST) [facility] Retinopathy Exam Severity ALERT(A) [facility] Right Diabetic Retinopathy Mild(A) [facility] Right Macular Edema Positive [facility] Right Other Retina None [facility] Right Eye Image Quality Gradable Image [facility] Left Diabetic Retinopathy Mild(A) [facility] Left Macular Edema None [facility] Left Other Retina None [facility] Left Eye Image Quality Gradable Image [facility] 02/14/2021 1:39 PM EST 02/14/2021 1:39 PM EST Impressions [facility] - 02/14/2021 7:24 PM EST Retinal Study Result for yoli HANEY 65 y/o, M (: 1955, ) presented to [facility] on 02-14-2021 for a retinal imaging study of the left and right eyes. Based on the findings of the study, the following is recommended for JACKIE ABDI Next Available Appointment: Refer patient to Ophthalmology, as soon as possible. Interpreting Provider's Comments: No comments provided Diagnoses Present: E119 - Type 2 diabetes mellitus without complications [id number] - Diabetes mellitus due to underlying condition with mild nonproliferative diabetic retinopathy without macular edema Left Eye [id number] - Diabetes mellitus due to underlying condition with mild nonproliferative diabetic retinopathy with macular edema Right Eye Right eye findings: Diabetic Retinopathy: Mild Macular Edema: Positive Left eye findings: Diabetic Retinopathy: Mild Negative for Macular Edema This result was electronically signed by Ja Rios, JARREDI: [id number], Taxonomy: [id number] on 02-15-2021 12:24 UTC. NOTE: Any pathology noted on this diabetic retinal evaluation should be confirmed by an appropriate ophthalmic examination. us Oswaldo Harry MD OPHTHALMOLOGY SERVICES O RDERABLES Final Result [facility] [address] [place] [address] * IR LUMBAR/SACRAL JASON WITH GUIDANCE (02/08/2021 11:29 AM EST) Anatomical Region Laterality Modality Interventional R adiology Narrative 02/08/2021 12:28 PM EST [facility] PROCEDURE NOTE Jackie Abdi February 08, 2021 SURGEON(S): Carlos Langston MD PRE-OP DIAGNOSIS: 1. Lumbar radiculopathy POST-OP DIAGNOSIS: 1. Lumbar radiculopathy IMAGING: Fluoroscopy PROCEDURE: Lumbar Epidural Steroid Injection Under Fluoroscopic Guidance Level: L4-L5 PROCEDURE DETAILS: After reviewing the patient's chart, informed consent was obtained and the patient was brought to the procedure room. The patient was placed in a prone position on fluoroscopy table with their lumbar spine exposed. A formal time out was performed identifying the correct patient, correct procedure, reviewing anticoagulation status, reviewing allergies and verifying the correct sites and side. Next, their low back was prepped with antiseptic solution and draped in the usual sterile fashion. The overlying skin was identified under fluoroscopic guidance and infiltrated with 1% Lidocaine for local anesthesia via 25 gauge needle. A Touhy needle size 20-gauge was used under fluoroscopic guidance to access the epidural space using loss of resistance to air technique at L4-L5. Approximately 2 mL of contrast was used to confirm needle position and contrast spread. Following negative aspiration for blood or CSF, a mixture of 40 mg of Depo-Medrol (reduced dose due to elevated blood sugar) and 2 mL's of 1% Lidocaine was injected with minimal pressure. CSF was negative, Paresthesia was negative, Heme was negative. The needle was cleared with preservative free local anesthetic and removed. Skin was cleaned and a sterile dressing was applied. Patient tolerated the procedure well without issues and was taken to the recovery area in stable condition. EBL: approx 0-1cc Images of procedure found under images tab dated: 02/08/2021 DISPOSITION/POST PROC COURSE: The patient was monitored for any adverse hemodynamic, allergic, or neurological symptoms. The patient tolerated the procedure well with no apparent complications. Vital signs remained stable throughout the procedure. The patient was taken to the recovery area where written discharge instructions for the procedure were given. The patient was discharged home. @VITALS@ Carlos Langston MD Interventional Pain Management [facility] Date: 02/08/2021 us Carlos Langston MD IMG IR ORDERABLES Final R esult * TESTOSTERONE LEVEL TOTAL (06/16/2020 8:02 AM EDT) Only the most recent of3 resultswithin the time period is included. Testosterone Lvl 361 300 - 720 ng/dL 06/16/2020 2:34 PM EDT [facility] [employer] Blood Venipuncture / Unknown 06/16/2020 8:02 AM EDT 06/16/2020 8:02 AM EDT Narrative [facility] [employer] - 06/16/2020 2:34 PM EDT Values less than 12 ng/dL are not reliable as the intermediate precision coefficient of variation is > 20%. Ingestion of joaquin doses of biotin (>5 mg/day) taken within 8 hours of drawing blood sample can interfere with this immunoassay test. us Viral Gross V, DO CHEMISTRY ORDERABLES Final Res ult [facility] [address] [facility] , [place] [address] * C-PEPTIDE (01/16/2020 7:49 AM EST) Only the most recent of5 resultswithin the time period is included. C-Peptide 5.16 0.78 - 5.19 ng/mL 01/16/2020 3:47 PM EST [facility] Blood Venipuncture / Unknown 01/16/2020 7:49 AM EST 01/16/2020 7:49 AM EST us Agustin Graves MD CHEMISTRY ORDERABLES Final Resu lt [facility] [employer] [address] [place] [address] , [place] [address] * US GUIDED PAROTID BIOPSY-FNA (01/13/2020 1:00 PM EST) Anatomical Region Laterality Modality Head Ultrasound 01/13/2020 1:00 PM EST Impressions 01/13/2020 3:52 PM EST Successful, uncomplicated ultrasound-guided parotid FNA biopsy procedure. Narrative 01/13/2020 3:52 PM EST US GUIDED PAROTID BIOPSY-FNA 01/13/2020 1:00 PM HISTORY: K11.8-Other diseases of salivary [id number]. Indeterminate right parotid mass questioned on recent noncontrast CT cervical spine study, 12/02/2019. Follow-up ultrasound-guided FNA biopsy requested. COMPARISON: No comparison ultrasound imaging studies. Finding: The FNA biopsy procedure was explained at length with the patient including the risk of pain, hemorrhage and infection and signed consent was obtained. The patient discontinued low-dose aspirin and anticoagulants several days prior to the biopsy procedure. Initial ultrasound imaging confirms mixed echogenic solid appearing 1.6 x 1.9 cm parotid mass which was targeted under ultrasound guidance. The right neck was sterilely prepped and draped and the skin was anesthetized with 1% lidocaine. Under direct ultrasound guidance, SIX separate FNA aspirates were obtained utilizing 25-gauge skinny needle. The provided cellular aspirate was felt to be satisfactory by the attending trouble locator test desk. Approximate 15 images and multiple cine loops recorded during the biopsy procedure. No postprocedural complication. The patient was discharged home in stable condition with specific postbiopsy care instructions. Procedure Note Jasper Montaño DO - 01/13/2020 US GUIDED PAROTID BIOPSY-FNA 01/13/2020 1:00 PM HISTORY: K11.8-Other diseases of salivary [id number]. Indeterminateright parotid mass questioned on recent noncontrast CT cervical spine study, 12/02/2019. Follow-up ultrasound-guided FNA biopsy requested. COMPARISON: No comparison ultrasound imaging studies. Finding: The FNA biopsy procedure was explained at length with thepatient including the risk of pain, hemorrhage and infection and signed consentwas obtained. The patient discontinued low-dose aspirin and anticoagulantsseveral days prior to the biopsy procedure. Initial ultrasound imaging confirmsmixed echogenic solid appearing 1.6 x 1.9 cm parotid mass which was targetedunder ultrasound guidance. The right neck was sterilely prepped and draped and the skin wasanesthetized with 1% lidocaine. Under direct ultrasound guidance, SIX separate FNAaspirates were obtained utilizing 25-gauge skinny needle. The provided cellularaspirate was felt to be satisfactory by the attending trouble locator test desk. [id number] images and multiple cine loops recorded during the biopsy procedure. No postprocedural complication. The patient was discharged home in stablecondition with specific postbiopsy care instructions. IMPRESSION: Successful, uncomplicated ultrasound-guided parotid FNA biopsy procedure. us Lyle Solo MD IMG US ORDERABLES Final Resul t * NON-QUALITY ASSURANCE SUPERVISOR BODY CYTOLOGY REQUEST (01/13/2020 11:52 AM EST) CASE REPORT Medical Cytology Report Case: [id number] Authorizing Provider: Lyle Solo MD Collected: 01/13/2020 1152 Ordering Location: [facility] Received: 01/13/2020 1345 Pathologist: Shubham Mathur MD Specimen: Gland, Parotid, right 01/14/2020 11:17 AM EST [facility]ORAT[facility] NON-QUALITY ASSURANCE SUPERVISOR BODY CYTOLOGY FINAL DIAGNOSIS Parotid, right, fine needle aspiration: - Benign Neoplasm ([place] Category IV-A) - Consistent with pleomorphic adenoma. 01/14/2020 11:17 AM EST [facility] at 1117 EST EMBEDDED IMAGES 01/14/2020 11:17 AM EST [facility] MICROSCOPIC DESCRIPTION Microscopic examination is performed and the findings corroborate the diagnosis 01/14/2020 11:17 AM EST [facility] Gross Description FNA Parotid, Right Parotid, Rec'd 6 slides and cytolyt.(CB) Evaluation Episode #1: Adequate / DT 01/14/2020 11:17 AM EST [facility] LABORATORY Aspirate PAROTID GLAND STRUCTURE / Unknown 01/13/2020 11:52 AM EST 01/13/2020 1:45 PM EST Lyle Solo MD CYTOLOGY ORDERABLES Final Res ult Performing Organization Address City/[facility] Co de Phone Number [facility] [address] [place], [place] [id number] * CORONAVIRUS 2019 (01/09/2020 1:00 PM EDT) Only the most recent of2 resultswithin the time period is included. Pathologist [facility] CORONAVIRUS [id number] Not Detected Not Detected 01/09/2020 10:32 PM EDT [facility] Comment:Caution should be ex ercised when interpreting a result of 'Not Detected'. A result of 'Not Detected' does not rule out COVID-19 and cannot be used as sole basis for treatment or patient management decisions. If COVID-19 is still suspected following a 'Not Detected' result, re-testing should be considered. Swab BOTH ANTERIOR NARES / Unknown 01/09/2020 1:00 PM EDT 01/09/2020 1:02 PM EDT Narrative [facility] - 01/09/2020 10:32 PM EDT This test is a nucleic acid amplification test intended for the qualitative detection of nucleic acid from the SARS-CoV-2 in upper respiratory samples collected from individuals suspected of COVID-19. Test is performed on the [employer] platform under the FDA's Emergency Use Authorization (EUA). [employer] Provider Fact Sheet: https://www.fda.gov/media/406984/download [employer] Patient Fact Sheet: https://www.fda.gov/media/255691/download Lyle Solo MD MICROBIOLOGY - GENERAL ORDERA BLES Final Result Performing Organization Address City/[facility]/ZIP Co de Phone Number [facility] [address] [facility], [place] [address] * (ABNORMAL) POCT BLADDER SCAN (12/15/2019 10:09 AM EDT) Only the most recent of7 resultswithin the time period is included. Pathologist [facility] Urine Volume (Preservative) 315cc SEP OFFICE 12/15/2019 10:0 9 AM EDT Alva Zelaya PA-C POINT OF CARE IMAGING Amie l Result Performing Organization Address City/State/[facility] Co de Phone Number SEP OFFICE * (ABNORMAL) SEP URINALYSIS POC (12/15/2019 9:41 AM EDT) Only the most recent of3 resultswithin the time period is included. UA Color POC Yellow Color 12/15/2019 9:43 AM EDT [facility] UA Appear POC Clear Clear 12/15/2019 9:43 AM EDT [facility] UA Gluc POC 100(A) Negative mg/dL 12/15/2019 9:43 AM EDT [facility] UA Bili POC Negative Negative 12/15/2019 9:43 AM EDT [facility] UA Ketones POC Negative Negative mg/dL 12/15/2019 9:43 AM EDT [facility] UA SG POC 1.020 1.001 - 1.035 no units 12/15/2019 9:43 AM EDT [facility] UA Blood POC Moderate(A) Negative 12/15/2019 9:43 AM EDT [facility] UA pH POC 6.0 5.0 - 8.0 pH 12/15/2019 9:43 AM EDT [facility] UA Protein POC Negative Negative mg/dL 12/15/2019 9:43 AM EDT [facility]A Urobilinogen POC 0.2 0.2, 1.0 12/15/2019 9:43 AM EDT [facility] UA Nitrite POC Negative Negative 12/15/2019 9:43 AM EDT [facility]A Leuk Est POC Trace(A) Negative 0 9:43 AM EDT [facility] [facility] Urine STRUCTURE OF URINARY TRACT PROPER / Unknown 12/15/2019 9:41 AM EDT 12/15/2019 9:43 AM EDT Alva Zelaya PA-C POINT OF CARE TEST ORDERAB LES Final Result [facility] [address] [place] [id number] * CT CERVICAL SPINE WO CONTRAST (12/02/2019 3:32 PM EDT) Anatomical Region Laterality Modality C-spine Computed Tomogra phy 12/02/2019 3:32 PM EDT Impressions 12/02/2019 4:59 PM EDT Indeterminate right parotid gland mass. Recommend ENT referral. Advanced multilevel discogenic and facet degenerative changes causing foraminal narrowing as described. If there are unexplained radicular symptoms of persistent concern consider cervical spine MRI for further evaluation. Narrative 12/02/2019 4:[address] CERVICAL SPINE WITHOUT CONTRAST, 12/02/2019 3:32 PM CLINICAL HISTORY: -right arm numbness/weakness ---prob C spine DDD seen on MRI brain COMPARISON: Today's brain MRI. Yesterday's head/neck CTA. No comparison cervical spine MRI available. No comparison soft tissue neck CT available. PROCEDURE COMMENTS: Multidetector CT of the cervical spine with multiplanar reformatting per protocol. No contrast administered. Automated exposure control for dose reduction was used. CTDIvol: 21.8 mGy. DLP: 454 mGy-cm. FINDINGS: Right parotid gland mass regional to the parotid tail is redemonstrated and measures up to about 2.5 cm in greatest dimension. Consider ENT consultation. No fracture or malalignment. Advanced discogenic degeneration greatest and moderate to severe from C4-5 through C7-T1 with disc space narrowing, spondylosis, and endplate sclerosis. Interbody and left facet joint bony fusion at C2-3. Advanced left facet arthropathy at C3-4. Mild to moderate left-sided facet arthropathy at C7-T1 and mild right-sided facet arthropathy at C2-3. Soft tissue detail of the spinal canal is limited by noncontrast CT and is particularly obscured at and below the C4 level due to beam hardening artifact from overlying shoulders. Significant disc displacement could therefore escape detection. There is multilevel degenerative foraminal narrowing as follows: mild to moderate on the left at C2-3 due to uncovertebral hypertrophy and facet arthropathy, mild on the right and moderate to severe on the left at C3-4 due to uncovertebral hypertrophy and facet arthropathy, mild to moderate on the right and mild on the left at C4-5 due to uncovertebral hypertrophy, mild on the right and [id number] on the left at C5-6 due to uncovertebral hypertrophy, and mild on the right and moderate on the left at C6-7 due to uncovertebral hypertrophy. There is kmvm-tn-kjacqswx atherosclerotic calcification regional to both common carotid artery bifurcations. There is a small rounded hypodense nodule in the mid to upper of the right thyroid lobe, measuring about 1 cm, likely incidental. There is a very small mucous retention cyst in the base of the right maxillary sinus. There is incidental minimal to mild chronic appearing opacification of air cells at the mastoid apices, left greater than right with associated sclerosis. Included lung apices clear. Procedure Note Tone Guerra MD - 12/02/2019 CT CERVICAL SPINE WITHOUT CONTRAST, 12/02/2019 3:32 PM CLINICAL HISTORY: -right arm numbness/weakness ---prob C spine DDD seenon MRI brain COMPARISON: Today's brain MRI. Yesterday's head/neck CTA. No comparison cervical spine MRI available. No comparison soft tissue neck CTavailable. PROCEDURE COMMENTS: Multidetector CT of the cervical spine withmultiplanar reformatting per protocol. No contrast administered. Automated exposurecontrol for dose reduction was used. CTDIvol: 21.8 mGy. DLP: 454 mGy-cm. FINDINGS: Right parotid gland mass regional to the parotid tail is redemonstrated and measures up to about 2.5 cm in greatest dimension.Consider ENT consultation. No fracture or malalignment. Advanced discogenic degeneration greatestand moderate to severe from C4-5 through C7-T1 with disc space narrowing, spondylosis, and endplate sclerosis. Interbody and left facet joint bonyfusion at C2-3. Advanced left facet arthropathy at C3-4. Mild to moderateleft-sided facet arthropathy at C7-T1 and mild right-sided facet arthropathy at C2-3.Soft tissue detail of the spinal canal is limited by noncontrast CT and is particularly obscured at and below the C4 level due to beam hardeningartifact from overlying shoulders. Significant disc displacement could thereforeescape detection. There is multilevel degenerative foraminal narrowing asfollows: mild to moderate on the left at C2-3 due to uncovertebral hypertrophy andfacet arthropathy, mild on the right and moderate to severe on the left at C3-4due to uncovertebral hypertrophy and facet arthropathy, mild to moderate on theright and mild on the left at C4-5 due to uncovertebral hypertrophy, mild on theright and nejk-zk-xaklkggn on the left at C5-6 due to uncovertebral hypertrophy,and mild on the right and moderate on the left at C6-7 due to uncovertebral hypertrophy. There is sipb-qh-ryypstaj atherosclerotic calcification regional to bothcommon carotid artery bifurcations. There is a small rounded hypodense nodule inthe mid to upper of the right thyroid lobe, measuring about 1 cm, likelyincidental. There is a very small mucous retention cyst in the base of the rightmaxillary sinus. There is incidental minimal to mild chronic appearing opacificationof air cells at the mastoid apices, left greater than right with associated sclerosis. Included lung apices clear. IMPRESSION: Indeterminate right parotid gland mass. Recommend ENT referral. Advanced multilevel discogenic and facet degenerative changes causingforaminal narrowing as described. If there are unexplained radicular symptoms of persistent concern consider cervical spine MRI for further evaluation. us Eloy Zepeda MD IMG CT ORDERABLES Final Resul t * MRI BRAIN WO CONTRAST (12/02/2019 8:00 AM EDT) Anatomical Region Laterality Modality Head Magnetic Resonan ce 12/02/2019 8:00 AM EDT Impressions 12/02/2019 8:33 AM EDT Occluded left vertebral artery. No infarct or other intracranial abnormality. Right parotid gland mass as described. Consider soft tissue neck CT for further evaluation. Narrative 12/02/2019 8:33 AM EDT MRI BRAIN WITHOUT CONTRAST, 12/02/2019 8:00 AM CLINICAL HISTORY: -TIA, 15 minutes right arm weakness and numbness -Ischemic Stroke COMPARISON: Head CT and the head/neck CTA from last evening. No comparison brain MRI available. PROCEDURE COMMENTS: Multiplanar multiecho MR imaging of the brain including standard spin echo and diffusion sequences. FINDINGS: Midline structures normally formed. No Chiari malformation. Ventricles normal. No abnormal parenchymal signal. No evidence of acute stroke, mass, or hemorrhage. Normal diffusion imaging. Absent flow void included distal cervical aspect and proximal intradural aspect of the left vertebral artery which demonstrates a normal flow void regional to the vertebral confluence, consistent with proximal occlusion and distal reconstitution as seen on the comparison CTA. Major vascular flow voids otherwise preserved, suggesting patency. Minimal mucosal thickening in the bases of the maxillary sinuses and tiny mucous retention cyst posteriorly in the base of the right maxillary sinus. Minimal bilateral ethmoid sinus mucosal thickening. No significant paranasal sinus or mastoid opacification. Orbits unremarkable. Apparent small mass in the caudal aspect of the right parotid gland measuring about 2.2 cm. Moderate left-sided facet arthropathy and a tiny associated facet joint effusion at C3-4 as well as mild disc bulging at this level. Bony fusion of the left facet joint and C2-3. Procedure Note Tone Guerra MD - 12/02/2019 MRI BRAIN WITHOUT CONTRAST, 12/02/2019 8:00 AM CLINICAL HISTORY: -TIA, 15 minutes right arm weakness and numbness -Ischemic Stroke COMPARISON: Head CT and the head/neck CTA from last evening. Nocomparison brain MRI available. PROCEDURE COMMENTS: Multiplanar multiecho MR imaging of the brainincluding standard spin echo and diffusion sequences. FINDINGS: Midline structures normally formed. No Chiari malformation. Ventriclesnormal. No abnormal parenchymal signal. No evidence of acute stroke, mass, or hemorrhage. Normal diffusion imaging. Absent flow void included distalcervical aspect and proximal intradural aspect of the left vertebral artery which demonstrates a normal flow void regional to the vertebral confluence,consistent with proximal occlusion and distal reconstitution as seen on thecomparison CTA. Major vascular flow voids otherwise preserved, suggesting patency. Minimal mucosal thickening in the bases of the maxillary sinuses and tinymucous retention cyst posteriorly in the base of the right maxillary sinus.Minimal bilateral ethmoid sinus mucosal thickening. No significant paranasal sinusor mastoid opacification. Orbits unremarkable. Apparent small mass in thecaudal aspect of the right parotid gland measuring about 2.2 cm. Moderateleft-sided facet arthropathy and a tiny associated facet joint effusion at C3-4 aswell as mild disc bulging at this level. Bony fusion of the left facet joint andC2-3. IMPRESSION: Occluded left vertebral artery. No infarct or other intracranial abnormality. Right parotid gland mass as described. Consider soft tissueneck CT for further evaluation. us Alma Barba MD IMG MRI ORDERABL ES Final Result * CT ANGIOGRAM HEAD AND NECK W CONTRAST (12/01/2019 6:21 PM EDT) Anatomical Region Laterality Modality Head Computed Tomogra phy 12/01/2019 6:21 PM EDT Impressions 12/01/2019 7:08 PM EDT Very technically limited CT angiographic evaluation as detailed above. LEFT vertebral artery may be occluded with distal reconstitution. Heavy calcification of the cavernous carotid arteries is noted or flow-limiting stenosis may be present. The central supraclinoid vasculature appears patent. - Narrative 12/01/2019 7:08 PM EDT CTA HEAD AND NECK WITH CONTRAST, 12/01/2019 6:21 PM CLINICAL HISTORY: -right arm weakness now resolved, occured about 1 hour ago COMPARISON: Head CT from this evening. PROCEDURE COMMENTS: Following the intravenous administration of 75 mL Isovue 370, multi-detector helical scanning performed and multiplanar reconstructions generated per protocol. Scan range extended from the aortic arch to the top of the head. Review included 3D MIP reconstructions. Automated exposure control for dose reduction was used. CTDIvol: 2.7 - 56.0 mGy. DLP: 402 mGy-cm. FINDINGS: Poor arterial bolus. The majority of the administered contrast material stuck in the venous side circulation and pulmonary circulation. CTA NECK: GREAT VESSELS: Atherosclerotic calcifications are present. Bilateral subclavian arteries appear patent. Bilateral common carotid arteries appear patent with mild atherosclerotic calcifications. RIGHT ICA: No stenosis by NASCET criteria at the carotid bifurcation. Atherosclerotic calcifications are present at the bulb but do not appear to be flow-limiting. LEFT ICA: No stenosis by NASCET criteria at the carotid bifurcation. Atherosclerotic calcifications are present at the bulb but do not appear to be flow-limiting. VERTEBRAL ARTERIES: Suspected occlusion of the proximal LEFT vertebral artery with very poor contrast opacification. Distal reconstitution. RIGHT vertebral artery appears patent to the level of the basilar artery. CTA HEAD: Basilar artery and proximal posterior cerebral arteries are patent. Suboptimal assessment of the peripheral posterior cerebral circulation. Heavy calcifications of the cavernous carotid arteries. Flow limiting stenosis could be present bilaterally. Supraclinoid carotids appear patent bilaterally. No MCA or ELISABETH occlusion. No aneurysm identified. OTHER: Advanced degenerative changes of the spine are present. Findings related to prior sternotomy are partially imaged. Procedure Note Nikunj Lewis MD - 12/01/2019 CTA HEAD AND NECK WITH CONTRAST, 12/01/2019 6:21 PM CLINICAL HISTORY: -right arm weakness now resolved, occured about 1 hourago COMPARISON: Head CT from this evening. PROCEDURE COMMENTS: Following the intravenous administration of 75 mLIsovue 370, multi-detector helical scanning performed and multiplanarreconstructions generated per protocol. Scan range extended from the aortic arch to thetop of the head. Review included 3D MIP reconstructions. Automated exposurecontrol for dose reduction was used. CTDIvol: 2.7 - 56.0 mGy. DLP: 402 mGy-cm. FINDINGS: Poor arterial bolus. The majority of the administered contrast material stuck in the venous side circulation and pulmonary circulation. CTA NECK: GREAT VESSELS: Atherosclerotic calcifications are present. Bilateralsubclavian arteries appear patent. Bilateral common carotid arteries appear patentwith mild atherosclerotic calcifications. RIGHT ICA: No stenosis by NASCET criteria at the carotid bifurcation. Atherosclerotic calcifications are present at the bulb but do not appearto be flow-limiting. LEFT ICA: No stenosis by NASCET criteria at the carotid bifurcation. Atherosclerotic calcifications are present at the bulb but do not appearto be flow-limiting. VERTEBRAL ARTERIES: Suspected occlusion of the proximal LEFT vertebralartery with very poor contrast opacification. Distal reconstitution. RIGHTvertebral artery appears patent to the level of the basilar artery. CTA HEAD: Basilar artery and proximal posterior cerebral arteries arepatent. Suboptimal assessment of the peripheral posterior cerebral circulation.Heavy calcifications of the cavernous carotid arteries. Flow limiting stenosiscould be present bilaterally. Supraclinoid carotids appear patent bilaterally.No MCA or ELISABETH occlusion. No aneurysm identified. OTHER: Advanced degenerative changes of the spine are present. Findingsrelated to prior sternotomy are partially imaged. IMPRESSION: Very technically limited CT angiographic evaluation as detailed above. LEFT vertebral artery may be occluded with distal reconstitution.Heavy calcification of the cavernous carotid arteries is noted orflow-limiting stenosis may be present. The central supraclinoid vasculature appearspatent. - us Alma Barba MD IM CT ORDERABLE S Final Result * EXTRA SKYE CARPENTER (12/01/2019 4:25 PM EDT) Only the most recent of2 resultswithin the time period is included. Blood VENOUS BLOOD / Unknown Venipuncture / Unknown 12/01/2019 4:25 PM EDT 12/01/2019 4:37 PM EDT Alma Barba MD CHEMISTRY ORDERA BLES Final Result Performing Organization Address [facility] de Phone Number [facility] [address] [place] [address] * EXTRA LAVENDER (12/01/2019 4:25 PM EDT) Blood VENOUS BLOOD / Unknown Venipuncture / Unknown 12/01/2019 4:25 PM EDT 12/01/2019 4:37 PM EDT Alma Barba MD HEMATOLOGY ORDER SIOBHAN Final Result Performing Organization Address [facility] Phone Number [address] [address] * EXTRA LIGHT BLUE (12/01/2019 4:25 PM EDT) Blood VENOUS BLOOD / Unknown Venipuncture / Unknown 12/01/2019 4:25 PM EDT 12/01/2019 4:37 PM EDT Alma Barba MD HEMATOLOGY ORDER SIOBHAN Final Result Performing Organization Address [facility] de Phone Number [facility] [address] [place] [address] * SCANNED RHYTHM STRIPS (11/24/2019 4:29 PM EDT) Only the most recent of12 resultswithin the time period is included. Anatomical Region Laterality Modality Other 11/24/2019 4:29 PM EDT us Unknown Unknown IMG ECG ORDERABLES Final Result * PATHOLOGY TISSUE REQUEST (11/20/2019 3:18 PM EDT) Only the most recent of3 resultswithin the time period is included. CASE REPORT Surgical Pathology Case: [id number] Authorizing Provider: Ina Overton MD Collected: 11/20/2019 1518 Ordering Location: [facility] Received: 11/20/2019 3200 Pathologist: Pamela Harmon MD Specimen: Prostate, *prostate chips* 11/26/2019 7:21 AM EDT [facility] FINAL DIAGNOSIS Prostate, 9 gram, transurethral resection: - Nodular prostatic hyperplasia. 11/26/2019 7:21 AM EDT [facility] at 0721 EDT GROSS DESCRIPTION Received in formalin labeled with the patient's name and prostate chips is a 9 g, 8.6 x 4.7 x 0.7 cm aggregate of baer-granado to white-granado tissue which is entirely submitted in eight cassettes. /TE 11/26/2019 7:21 AM EDT [facility] MICROSCOPIC DESCRIPTION Microscopic examination is performed and the findings corroborate the diagnosis. 11/26/2019 7:21 AM EDT [facility] EMBEDDED IMAGES 11/26/2019 7:21 AM EDT [facility] Tissue PROSTATE / Unknown 0 3:18 PM EDT 11/20/2019 6:52 PM EDT us Ina Overton MD PATHOLOGY ORDERABLES Final Res ult [facility] [address] [place] [address] [facility] [address] [place] [address] * INTRAOP AIRWAY PLACEMENT (11/20/2019 2:43 PM EDT) Narrative [facility] - 11/20/2019 2:43 PM EDT Tod Buckley CRNA 11/20/2019 2:44 PM Intraop Airway Placement: Induction type: IV Laryngoscope blade: Bethea Airway type: ETT- cuffed Device size: 7.5mm Secured by: Tape Placement verified: Auscultation and End tidal CO2 Insertion attempts: 1 Title: MATERIAL SPREADER us Luis A Rodney MD [place] ANESTHESIA Final Result [facility] [address] [place] [address] * XR SHOULDER BILATERAL 3 VIEWS (09/03/2019 2:04 PM EDT) Anatomical Region Laterality Modality Shoulder Radiographic Kimberly ging 09/03/2019 2:04 PM EDT Impressions 09/03/2019 2:35 PM EDT No significant arthritic process or acute bone or soft tissue abnormality. - Narrative 09/03/2019 2:35 PM EDT XR SHOULDER BILATERAL 3 VIEWS, 09/03/2019 2:04 PM CLINICAL HISTORY: M25.511-Pain in right hbiscdue-PUM-40-CM M25.512-Pain in left cwogajsj-QLY-35-CM COMPARISON: None. PROCEDURE COMMENTS: Bilateral imaging per the ordered protocol. FINDINGS: Right: Joint spaces are maintained. No erosions or periostitis. No significant bony or soft tissue finding. Left: Joint spaces are maintained. No erosions or periostitis. No significant bony or soft tissue finding. Procedure Note Nikunj Vidales MD - 09/03/2019 XR SHOULDER BILATERAL 3 VIEWS, 09/03/2019 2:04 PM CLINICAL HISTORY: M25.511-Pain in right vixjnukv-IJI-96-CM M25.512-Pain in left rjeofpsb-YPZ-25-CM COMPARISON: None. PROCEDURE COMMENTS: Bilateral imaging per the ordered protocol. FINDINGS: Right: Joint spaces are maintained. No erosions or periostitis. No significant bony or soft tissue finding. Left: Joint spaces are maintained. No erosions or periostitis. No significant bony or soft tissue finding. IMPRESSION: No significant arthritic process or acute bone or soft tissue abnormality. - Peggy Locke MD IMG DIAGNOSTIC IMAGING O RDERABLES Final Result * APOLIPOPROTEIN B-REF LAB (04/16/2019 10:36 AM EST) Only the most recent of4 resultswithin the time period is included. Apolipoprotein B 70 55 - 140 mg/dL 04/17/2019 12:25 PM EST [employer] Comment: REFERENCE INTERVAL: Apolipoprotein B Access complete set of age- and/or gender-specific reference intervals for this test in the [employer] [facility] ([employer]). Performed by [employer], [address] [place] [address] [email or web address], Lencho Keys MD, Lab. Director Blood Venipuncture / Unknown 04/16/2019 10:36 AM EST 04/16/2019 10:36 AM EST us Agustin Graves MD CHEMISTRY ORDERABLES Final Resu lt Performing Organization Address [facility]/ZIP Co de Phone Number [employer] [facility] [address] [place] [address] * CREATINE KINASE (01/25/2019 11:15 AM EST) CK 138 39 - 308 IU/L 01/25/2019 3:09 PM EST [facility] Blood VENOUS BLOOD / Unknown Venipuncture / Unknown 01/25/2019 11:15 AM EST 01/25/2019 11:15 AM EST us Vernon Salinas MD CHEMISTRY ORDERABLES Fi nal Result Performing Organization Address [facility]/ZIP Co de Phone Number [facility] [address] [place] [address], [place] [address] * XR SHOULDER LEFT 4 VIEWS (01/25/2019 11:12 AM EST) Anatomical Region Laterality Modality Shoulder Radiographic Kimberly ging 01/25/2019 11:1 2 AM EST Impressions 01/25/2019 11:21 AM EST 1. No acute fracture. 2. Mild AC joint degenerative changes. 3. Type III acromion, which may predispose to impingement. - Narrative 01/25/2019 11:21 AM EST XR SHOULDER LEFT 4 VIEWS, 01/25/2019 11:12 AM CLINICAL HISTORY: M25.512-Pain in left ykiqmiyj-RMW-09-CM G89.29-Other chronic okwz-HYS-67-CM COMPARISON: Chest radiograph 09/20/2017 PROCEDURE COMMENTS: Routine views. FINDINGS: No acute fracture or dislocation. Mild AC joint degenerative changes. Type III acromion. Transverse lucency through undersurface hook is favored to be chronic. Broken upper sternotomy wires are evident. Procedure Note Alfredo Roque MD - 01/25/2019 XR SHOULDER LEFT 4 VIEWS, 01/25/2019 11:12 AM CLINICAL HISTORY: M25.512-Pain in left msqgqlfr-HUM-43-CM G89.29-Other chronic rqri-WGT-41-CM COMPARISON: Chest radiograph 09/20/2017 PROCEDURE COMMENTS: Routine views. FINDINGS: No acute fracture or dislocation. Mild AC joint degenerative changes. TypeIII acromion. Transverse lucency through undersurface hook is favored to bechronic. Broken upper sternotomy wires are evident. IMPRESSION: 1. No acute fracture. 2. Mild AC joint degenerative changes. 3. Type III acromion, which may predispose to impingement. - Vernon Salinas MD [facility] DI[facility]NOSTIC IMAGING ORDERABLES Final Result * PROSTATE SPECIFIC ANTIGEN (TUMOR MARKER) (11/26/2018 4:59 PM EDT) Only the most recent of2 resultswithin the time period is included. Total Psa 0.18 <=4.00 ng/mL 11/26/2018 9:36 PM EDT [facility] Blood Venipuncture / Unknown 11/26/2018 4:59 PM EDT 11/26/2018 4:59 PM EDT Narrative [facility] - 11/26/2018 9:36 PM EDT Prostate cancer screening with the PSA test is controversial and varying recommendation exists among several Urologic, Governmental, and Oncologic organizations. The decision to test the prostate for cancer should be based on a discussion between the patient and the physician. Given that the PSA value varies with age, prostate size, prostate activity, and between blood tests, consideration should be given to prostatic hypertrophy, prostate inflammation, perineal activity (including bicycle riding and digital rectal exam), and prior PSA levels. Lastly, higher risk prostate cancers can occur in certain ethnic groups and low PSA states, consideration of history and physical findings should guide screening decision making. Ingestion of joaquin doses of biotin (>5 mg/day) taken within 8 hours of drawing blood sample can interfere with this immunoassay test. Alva Zelaya PA-C CHEMISTRY ORDERABLES Final Result [facility] [address] [facility] , [place] [address] * (ABNORMAL) URINE CULTURE (NO STAIN) (10/25/2018 4:26 PM EDT) Only the most recent of5 resultswithin the time period is included. Culture Positive Growth(A) 2018 10:18 AM EDT [facility] Culture >649109 CFU/mL Staphylococcus epidermidis SUSCEPTIBI LITY RESULT 10/28/2018 10:18 AM EDT [facility] Urine URINE SPECIMEN COLLECTION, CLEAN CATCH / Unknown 10/25/2018 4:26 PM EDT 10/25/2018 4:26 PM EDT Narrative Organism Antibiotic Method Susceptibility Staphylococcus epidermidis Ampicillin SUSCEPTIBILITY RESULT <=2 ug/mL: Resistant Staphylococcus epidermidis Cefazolin SUSCEPTIBILITY RESULT <=4 ug/mL: Susceptible Staphylococcus epidermidis Ceftaroline SUSCEPTIBILITY RESULT Staphylococcus epidermidis Ceftriaxone SUSCEPTIBILITY RESULT <=4 ug/mL: Susceptible Staphylococcus epidermidis Chloramphenicol SUSCEPTIBILITY RESULT Staphylococcus epidermidis Ciprofloxacin SUSCEPTIBILITY RESULT <=1 ug/mL: Susceptible Staphylococcus epidermidis Clindamycin SUSCEPTIBILITY RESULT Staphylococcus epidermidis Daptomycin SUSCEPTIBILITY RESULT <=0.25 ug/mL: Susceptible Staphylococcus epidermidis Erythromycin SUSCEPTIBILITY RESULT Staphylococcus epidermidis Gentamicin SUSCEPTIBILITY RESULT <=1 ug/mL: Susceptible Staphylococcus epidermidis Gentamicin synergy SUSCEPTIBILITY RESULT Staphylococcus epidermidis Levofloxacin SUSCEPTIBILITY RESULT <=0.5 ug/mL: Susceptible Staphylococcus epidermidis Linezolid SUSCEPTIBILITY RESULT 1 ug/mL: Susceptible Staphylococcus epidermidis Moxifloxacin SUSCEPTIBILITY RESULT Staphylococcus epidermidis Nitrofurantoin SUSCEPTIBILITY RESULT <=32 ug/mL: Susceptible Staphylococcus epidermidis Oxacillin SUSCEPTIBILITY RESULT <=0.25 ug/mL: Susceptible Staphylococcus epidermidis Penicillin SUSCEPTIBILITY RESULT 2 ug/mL: Resistant Staphylococcus epidermidis Rifampin SUSCEPTIBILITY RESULT <=1 ug/mL: Susceptible Staphylococcus epidermidis Streptomycin synergy SUSCEPTIBILITY RESULT Staphylococcus epidermidis Synercid SUSCEPTIBILITY RESULT <=0.25 ug/mL: Susceptible Staphylococcus epidermidis Tetracycline SUSCEPTIBILITY RESULT <=2 ug/mL: Susceptible Staphylococcus epidermidis Tigecycline SUSCEPTIBILITY RESULT Staphylococcus epidermidis Trimethoprim/Sulfameth oxazole SUSCEPTIBILITY RESULT <=0.5/9.5 ug/mL: Susceptible Staphylococcus epidermidis Vancomycin SUSCEPTIBILITY RESULT 1 ug/mL: Susceptible Comment:Rifampin and Gentami nadia should not be used alone for antimicrobial therapy. For methicillin resistant staphylococci, ciprofloxacin should also not be used alone. Dejuan Rosario GRADUATE TEACHER EDUCATION MICROBIOLOGY - GENERAL ORDER SIOBHAN Final Result [facility] [employer] [address] [place] [address] , [place] [address] * IRIS DIABETIC RETINOPATHY EXAM (10/14/2018 5:11 PM EDT) [facility] Retinopathy Exam Severity NORMAL [facility] Right Diabetic Retinopathy None [facility] Right Macular Edema None [facility] Right Other Retina None [facility] Right Eye Image Quality Gradable Image [facility] Left Diabetic Retinopathy None [facility] Left Macular Edema None [facility] Left Other Retina None [facility] Left Eye Image Quality Gradable Image [facility] 10/14/2018 5:11 PM EDT 10/14/2018 5:11 PM EDT Impressions [facility] - 10/14/2018 9:57 PM EDT Retinal Study Result for JACKIE ABDI yoli MEJIA 62 y/o, M (: 1955, ) presented to [facility] on 10-14-2018 for a retinal imaging study of the left and right eyes. Based on the findings of the study, the following is recommended for JACKIE ABDI Normal Study: Return for follow up exam in 12 months or next calendar year. Interpreting Provider's Comments: No comments provided Diagnoses Present: E11.9 - Type 2 diabetes mellitus without complications Right Eye Findings: Normal Result. Negative for Diabetic Retinopathy. Left Eye Findings: Normal Result. Negative for Diabetic Retinopathy. This result was electronically signed by Ja Rios MD, , Taxonomy: [id number] on 10-15-2018 01:57:54 UTC time. NOTE: Any pathology noted on this diabetic retinal evaluation should be confirmed by an appropriate ophthalmic examination. Kior DO OPHTHALMOLOGY SERVICES ORDERABL ES Final Result Performing Organization Address [facility] de Phone Number [facility] [address] [place] [address] * POCT MICROALBUMIN (10/14/2018 4:39 PM EDT) Only the most recent of6 resultswithin the time period is included. Microalb, Ur 20 <=20 MG/L SEP OFFICE Lot Number [id number] SEP OFFICE Expiration Date 03/11/2019 SEP OFFICE SeriAl # SEP OFFICE Urine 10/14/2018 4:39 PM EDT [facility]Malika DO POINT OF CARE TEST ORDERABLES F inal Result Performing Organization Address [facility] de Phone Number SEP OFFICE * GMED EGD (09/20/2018 8:15 AM EDT) 09/20/2018 8:15 AM EDT Impressions [facility] - 09/20/2018 8:39 AM EDT Normal stomach. Normal duodenum. Corrugated mucosa, linear furrows and stacked circular ringed (feline esophagus) in the whole esophagus compatible with esophagitis. (Biopsy). Plan: Await pathology results Repeat EGD with Dilation as needed continue High dose PPI bid. This section is an excerpt of the full report. Stevie Leone MD GI PROCEDURE ORDERABLES Fi nal Result Performing Organization Address [facility] de Phone Number [facility] [address] [place] [address] * INTRAOP AIRWAY PLACEMENT (09/20/2018 7:58 AM EDT) Narrative [facility] - 09/20/2018 7:58 AM EDT Jessica Epps CRNA 09/20/2018 7:58 AM Intraop Airway Placement: Airway type: Nasal cannula salter Procedure Note Jessica Epps CRNA - 09/20/2018 7:58 AM EDT Intraop Airway Placement: Airway type: Nasal cannula salter us Jessica Fair CRNA [place] ANESTHESIA Final Result [facility] [address] [place] [address] * GLUTAMIC ACID DECARBOXYLASE AB -REF LAB (07/29/2018 12:43 PM EDT) HUGH Ab <5.0 0.0 - 5.0 IU/mL 07/31/2018 8:21 PM EDT [employer] Comment: INTERPRETIVE INFORMATION: Glutamic Acid Decarboxylase Antibody A value greater than 5.0 IU/mL is considered positive for Glutamic Acid Decarboxylase Antibody (HUGH Ab). This assay is intended for the semi-quantitative determination of the HUGH Ab in human serum. Results should be interpreted within the context of clinical symptoms. Performed by [employer], [address] [place] [id number] [email or web address], Lencho Keys MD, Lab. Director Blood Venipuncture / Unknown 07/29/2018 12:43 PM EDT 07/29/2018 12:43 PM EDT Agustin Graves MD CHEMISTRY ORDERABLES Final Resu lt Performing Organization Address City/[facility]/ZIP Co de Phone Number [employer] [address] [place], [place] [id number] * (ABNORMAL) LIPOPROTEIN (A)-REF LAB (07/29/2018 12:43 PM EDT) Lipo (a) 111(H) <=29 mg/dL 07/31/2018 6:36 AM EDT [employer] Comment: Performed by [employer], [address] [place] [id number] [email or web address], Lencho Keys MD, Lab. Director Blood Venipuncture / Unknown 07/29/2018 12:43 PM EDT 07/29/2018 12:43 PM EDT Agustin Graves MD CHEMISTRY ORDERABLES Final Resu lt Performing Organization Address [facility] de Phone Number [employer] [address] [place] [address] * ADRENOCORTICOTROPIC HORMONE -REF LAB (07/29/2018 12:43 PM EDT) ACTH 12 7 - 69 pg/mL 07/31/2018 11:03 AM EDT [employer] Comment: INTERPRETIVE INFORMATION: Adrenocorticotropic Hormone Some types of synthetic ACTH are not detected by this assay. Access complete set of age- and/or gender-specific reference intervals for this test in the [facility] Test [facility] ([employer]). Performed by [employer], [address] [place] [id number] [email or web address], Lencho Keys MD, Lab. Director Blood Venipuncture / Unknown 07/29/2018 12:43 PM EDT 07/29/2018 12:43 PM EDT Agustin Graves MD CHEMISTRY ORDERABLES Final Resu Performing Organization Address [facility] de Phone Number [employer] [address] [place] [address] * LACTIC ACID (07/29/2018 12:43 PM EDT) Only the most recent of2 resultswithin the time period is included. Pathologist [facility] Lactic Acid 1.5 0.5 - 1.9 mmol/L 07/29/2018 1:00 PM EDT [facility] Blood Venipuncture / Unknown 07/29/2018 12:43 PM EDT 07/29/2018 12:43 PM EDT Agustin Graves MD CHEMISTRY ORDERABLES Final Resu Performing Organization Address [facility] Co de Phone Number [facility] [address] [place] [address] * CORTISOL (07/29/2018 12:43 PM EDT) Cortisol 7.69 mcg/dL 07/29/2018 5:4 4 PM EDT [facility] Blood Venipuncture / Unknown 07/29/2018 12:43 PM EDT 07/29/2018 12:43 PM EDT Narrative [facility] - 07/29/2018 5:44 PM EDT Normals: Mornin.2 - 19.4 mcg/dL Evenin.3 - 11.9 mcg/dL Ingestion of joaquin doses of biotin (>5 mg/day) taken within 8 hours of drawing blood sample can interfere with this immunoassay test. Agustin Graves MD CHEMISTRY ORDERABLES Final Resu lt Performing Organization Address [facility] Co de Phone Number [facility] [employer] [address], [address] [place] [phone] * INTRAOP AIRWAY PLACEMENT (07/17/2018 10:17 AM EDT) Narrative [facility] - 07/17/2018 10:17 AM EDT Lis Pearson CRNA 07/17/2018 10:17 AM Intraop Airway Placement: Date/Time: 07/17/2018 10:00 AM Airway type: Nasal cannula salter Procedure Note iLs Pearson CRNA - 07/17/2018 10:17 AM EDT Intraop Airway Placement: Date/Time: 07/17/2018 10:00 AM Airway type: Nasal cannula salter Barber Lindsey MD [place] ANESTHESIA Final Resu lt Performing Organization Address [facility] Co de Phone Number [address] [address] * GMED EGD (07/17/2018 9:45 AM EDT) 07/17/2018 9:45 AM EDT Impressions [facility] - 07/26/2018 1:27 PM EDT Normal stomach. Normal duodenum. Stenosis in the lower third of the esophagus. (Dilation). Stacked circular ringed (feline esophagus) and vertical furrows (tram tracking) in the esophagus. (Biopsy). Plan: Await pathology results Repeat EGD with Dilation as needed PPI 40mg BID for 2 months then once daily Avoid NSAIDs for 2 weeks Liquid diet today then Mechanically soft diet for 1 week. This section is an excerpt of the full report. us Stevie Leone MD GI PROCEDURE ORDERABLES Ed ited Result - Final Performing Organization Address [facility]/ZIP Co de Phone Number [facility] [address] [place] [address] * TESTOSTERONE FREE, ADULT MALE -REF LAB (07/04/2018 1:31 PM EDT) Free T Calc 66 47 - 244 pg/mL 07/06/2018 12:20 PM EDT [employer] Comment: INTERPRETIVE INFORMATION: Testosterone, Free Tereso Stage IV 35 - 169 pg/mL Tereso Stage V 41 - 239 pg/mL The concentration of Free Testosterone is derived from a mathematical expression based on the constant for the binding of testosterone to Sex Hormone Binding Globulin (SHBG). Access complete set of age- and/or gender-specific reference intervals for this test in the [facility] Test Directory ([employer]). Performed by [employer], [address] [place] [address] [email or web address], Lencho Keys MD, Lab. Director Blood Venipuncture / Unknown 07/04/2018 1:31 PM EDT 07/04/2018 1:31 PM EDT Barbara Cole APRN CHEMISTRY ORDERABLES Final Result Performing Organization Address [facility]/ZIP Co de Phone Number [employer] [address] [place] [address] * TSH REFLEX (05/27/2018 2:42 PM EDT) Only the most recent of2 resultswithin the time period is included. TSH Reflex 2.250 0.270 - 4.200 mcIU/mL 05/27/2018 8:53 PM EDT [facility] [employer] Blood Venipuncture / Unknown 05/27/2018 2:42 PM EDT 05/27/2018 2:42 PM EDT Narrative PREFERRED [employer] - 05/27/2018 8:53 PM EDT Ingestion of joaquin doses of biotin (>5 mg/day) taken within 8 hours of drawing blood sample can interfere with this immunoassay test. us Vernon Salinas MD CHEMISTRY ORDERABLES Fi nal Result PREFERRED [employer] [address] [facility], [place] [address] * IR 2 LEVEL BILATERAL MEDIAL BRANCH BLOCK LUM SAC (03/07/2018 9:41 AM EST) Only the most recent of2 resultswithin the time period is included. Anatomical Region Laterality Modality Interventional R adiology 03/07/2018 9:41 AM EST Impressions 03/07/2018 10:34 AM EST Impression: Please see Op Note in Epic. Narrative Procedure Note Vernon Meng MD - 03/07/2018 IMPRESSION: Impression: Please see Op Note in Epic. us Chelitacorky Smithbeth Reynoso APRN IMG IR ORDERABLES Final Result * HCV QUANT W/RFLX TO GENOTYPE -REF LAB (12/01/2017 9:03 AM EDT) HCV Qnt by NAAT (IU/mL) Not Detected IU/mL 2017 7:16 AM EDT [employer] HCV Qnt by NAAT (log IU/mL) Not Detected log IU/mL 2017 7:16 AM EDT [employer] Comment: Hepatitis C Virus (HCV) by Quantitative TMA result was less than 4,000 IU/mL (3.6 log IU/mL); therefore no further testing added. INTERPRETIVE INFORMATION: HCV by Quantitative NAAT Normal range for this assay is Not Detected . The quantitative range of this assay is 10 - 100,000,000 IU/mL (1.0 - 8.0 log IU/mL). Lower limit of quantitation (LLoQ): 10 IU/mL (1.0 log IU/mL) LLoQ values do not apply to diluted specimens. A result of Not Detected does not rule out the presence of inhibitors in the patient specimen or hepatitis C virus RNA concentrations below the level of detection of the test. Care should be taken when interpreting any single viral load determination. This test should not be used for blood donor screening, associated re-entry protocols, or for screening Human Cell, Tissues and Cellular Tissue-Based Products (HCT/P). Performed by [employer], [address] [place] [address] [email or web address], Lencho Keys MD, Lab. Director Blood VENOUS BLOOD / Unknown Venipuncture / Unknown 12/01/2017 9:03 AM EDT 12/01/2017 9:03 AM EDT Vernon Salinas MD IMMUNOLOGY ORDERABLES F inal Result Performing Organization Address [facility] Co de Phone Number [employer] [address] [place] [address] * (ABNORMAL) HEPATITIS C ANTIBODY - SCREENING (11/25/2017 9:25 AM EDT) Pathologist [facility] Hep C Ab Reactive( A) Non-React carmine 11/26/2017 10:31 AM EDT [employer] Comment:Weakly Reactive. Pre sumptive evidence of antibodies to HCV, however nonspecific (false positive) results may occur in this range. Supplemental confirmatory testing of a follow-up specimen is recommended. The recommended follow-up test is HCV RNA Quantitative PCR with reflex to genotyping. Blood Venipuncture / Unknown 11/25/2017 9:25 AM EDT 11/25/2017 9:25 AM EDT Vernon Salinas MD HEMATOLOGY ORDERABLES F inal Result Performing Organization Address [facility]/ZIP Co de Phone Number [facility] [address] [place] [address] , [place] [address] * INSULIN ANTIBODY -REF LAB (10/04/2017 10:25 AM EDT) Pathologist [facility] Insulin Antibody <0.4 0.0 - 0.4 U/mL 10/08/2017 9:56 AM EDT [employer] Comment: INTERPRETIVE INFORMATION: Insulin Antibody A value greater than 0.4 Kronus Units/mL is considered positive for Insulin Antibody. Kronus units are arbitrary. Kronus Units = U/mL. This assay is intended for the semi-quantitative determination of antibodies to endogenous insulin or antibodies to exogenous insulin in human serum. Antibodies to exogenous insulin therapies may be detected using this method. The magnitude of the measured result is not related to disease progression. Results should be interpreted within the context of clinical symptoms. Performed by [employer], [address] [place] [address] [email or web address], Lencho Keys MD, Lab. Director Blood VENOUS BLOOD / Unknown Venipuncture / Unknown 10/04/2017 10:25 AM EDT 10/04/2017 10:25 AM EDT Vernon Salinas MD CHEMISTRY ORDERABLES Fi nal Result Performing Organization Address [facility] de Phone Number [employer] [address] [place] [address] * INSULIN FASTING (10/04/2017 10:25 AM EDT) [facility] Insulin Fasting 17.33 2.60 - 24.90 mcIU/mL 10/04/2017 4:00 PM EDT [facility] [employer] Blood VENOUS BLOOD / Unknown Venipuncture / Unknown 10/04/2017 10:25 AM EDT 10/04/2017 10:25 AM EDT Narrative PREFERRED [employer] - 10/04/2017 4:00 PM EDT Ingestion of joaquin doses of biotin (>5 mg/day) taken within 8 hours of drawing blood sample can interfere with this immunoassay test. Vernon Salinas MD CHEMISTRY ORDERABLES Fi nal Result Performing Organization Address [facility] Co de Phone Number [facility] [address] [place] [address] , [place] [address] * IR ULTRASOUND GUIDED VASCULAR ACCESS (09/24/2017 3:52 PM EDT) Anatomical Region Laterality Modality Interventional R adiology 09/24/2017 3:52 PM EDT Impressions 09/24/2017 4:14 PM EDT SUCCESSFUL AND UNCOMPLICATED ULTRASOUND AND FLUOROSCOPICALLY GUIDED PLACEMENT OF PICC. PICC READY FOR IMMEDIATE USE. Narrative 09/24/2017 4:14 PM EDT ULTRASOUND AND FLUOROSCOPICALLY GUIDED PICC LINE INSERTION: 09/24/2017 3:52 PM CLINICAL HISTORY: ICD-10, Z45.2, encounter for adjustment and management of vascular access device. TECHNICAL FACTORS AND FINDINGS: Procedure was performed by ALEKSANDER Tapia under supervision Dejuan Praker M.D.. Ultrasound interrogation performed of the right basilic vein. It is shown to be patent and compressible. This was documented with a permanent image. The catheter was placed using all elements of maximal sterile barrier technique as well as all elements of sterile ultrasound technique. Following sterile skin preparation and local anesthesia under ultrasound guidance the vein was punctured. This allowed guide wire and introducer sheath insertion. Through the introducer sheath a PICC was inserted. Catheter tip was positioned at the cavo-atrial junction. This was documented with a single fluoroscopic spot film. Catheter was cut to 44 cm. Fluoroscopy time 0.1 minutes. Catheter aspirated and flushed freely. The catheter was secured to the skin surface. A sterile dressing was applied. Patient tolerated the procedure well and left the Radiology Department in stable condition. Procedure Note Dejuan Parker MD - 09/24/2017 ULTRASOUND AND FLUOROSCOPICALLY GUIDED PICC LINE INSERTION: 09/24/2017 3:52PM CLINICAL HISTORY: ICD-10, Z45.2, encounter for adjustment and managementof vascular access device. TECHNICAL FACTORS AND FINDINGS: Procedure was performed by ALEKSANDER Tapia under supervision Adeel Henry. Ultrasound interrogation performed of the right basilic vein. Itis shown to be patent and compressible. This was documented with apermanent image. The catheter was placed using all elements of maximal sterile barriertechnique as well as all elements of sterile ultrasound technique. Following sterileskin preparation and local anesthesia under ultrasound guidance the vein was punctured. This allowed guide wire and introducer sheath insertion.Through the introducer sheath a PICC was inserted. Catheter tip was positioned atthe cavo-atrial junction. This was documented with a single fluoroscopic spotfilm. Catheter was cut to 44 cm. Fluoroscopy time 0.1 minutes. Catheter aspirated and flushed freely. The catheter was secured to theskin surface. A sterile dressing was applied. Patient tolerated the procedurewell and left the Radiology Department in stable condition. IMPRESSION: SUCCESSFUL AND UNCOMPLICATED ULTRASOUND AND FLUOROSCOPICALLY GUIDED PLACEMENT OF PICC. PICC READY FOR IMMEDIATE USE. us Marlon Yarbrough MD IMG IR ORDERABLES Final Resul t * IR PICC INSERTION EQUAL OR > 5 YEARS (09/24/2017 3:52 PM EDT) Anatomical Region Laterality Modality Interventional R adiology 09/24/2017 3:52 PM EDT Impressions 09/24/2017 4:14 PM EDT SUCCESSFUL AND UNCOMPLICATED ULTRASOUND AND FLUOROSCOPICALLY GUIDED PLACEMENT OF PICC. PICC READY FOR IMMEDIATE USE. Narrative 09/24/2017 4:14 PM EDT ULTRASOUND AND FLUOROSCOPICALLY GUIDED PICC LINE INSERTION: 09/24/2017 3:52 PM CLINICAL HISTORY: ICD-10, Z45.2, encounter for adjustment and management of vascular access device. TECHNICAL FACTORS AND FINDINGS: Procedure was performed by ALEKSANDER Tapia under supervision Dejuan Parker M.D.. Ultrasound interrogation performed of the right basilic vein. It is shown to be patent and compressible. This was documented with a permanent image. The catheter was placed using all elements of maximal sterile barrier technique as well as all elements of sterile ultrasound technique. Following sterile skin preparation and local anesthesia under ultrasound guidance the vein was punctured. This allowed guide wire and introducer sheath insertion. Through the introducer sheath a PICC was inserted. Catheter tip was positioned at the cavo-atrial junction. This was documented with a single fluoroscopic spot film. Catheter was cut to 44 cm. Fluoroscopy time 0.1 minutes. Catheter aspirated and flushed freely. The catheter was secured to the skin surface. A sterile dressing was applied. Patient tolerated the procedure well and left the Radiology Department in stable condition. Procedure Note Dejuan Parker MD - 09/24/2017 ULTRASOUND AND FLUOROSCOPICALLY GUIDED PICC LINE INSERTION: 09/24/2017 3:52PM CLINICAL HISTORY: ICD-10, Z45.2, encounter for adjustment and managementof vascular access device. TECHNICAL FACTORS AND FINDINGS: Procedure was performed by ALEKSANDER Tapia under supervision Adeel Henry. Ultrasound interrogation performed of the right basilic vein. Itis shown to be patent and compressible. This was documented with apermanent image. The catheter was placed using all elements of maximal sterile barriertechnique as well as all elements of sterile ultrasound technique. Following sterileskin preparation and local anesthesia under ultrasound guidance the vein was punctured. This allowed guide wire and introducer sheath insertion.Through the introducer sheath a PICC was inserted. Catheter tip was positioned atthe cavo-atrial junction. This was documented with a single fluoroscopic spotfilm. Catheter was cut to 44 cm. Fluoroscopy time 0.1 minutes. Catheter aspirated and flushed freely. The catheter was secured to theskin surface. A sterile dressing was applied. Patient tolerated the procedurewell and left the Radiology Department in stable condition. IMPRESSION: SUCCESSFUL AND UNCOMPLICATED ULTRASOUND AND FLUOROSCOPICALLY GUIDED PLACEMENT OF PICC. PICC READY FOR IMMEDIATE USE. Marlon Yarbrough MD IMG IR ORDERABLES Final Resul t * BLOOD CULTURE (NO STAIN) (09/22/2017 10:17 AM EDT) Only the most recent of4 resultswithin the time period is included. Culture Result No Growth at 120 hours. BLOOD CULTURE (NO STAIN) 09/27/2017 4:00 PM EDT [facility] Blood VENOUS BLOOD / Unknown Venipuncture / Unknown 09/22/2017 10:17 AM EDT 09/22/2017 10:50 AM EDT Marlon Yarbrough MD MICROBIOLOGY - GENERAL ORDERA BLES Final Result [facility] [address] [facility] , [place] [address] * XR ABDOMEN AP (09/20/2017 7:57 PM EDT) Anatomical Region Laterality Modality Abdomen Radiographic Kimberly ging 09/20/2017 7:57 PM EDT Impressions 09/20/2017 8:15 PM EDT No acute finding. Narrative 09/20/2017 8:15 PM EDT CR, ABDOMEN AP, 09/20/2017 7:57 PM CLINICAL HISTORY: -non-visualization of right ureteral jet in bladder. ?right ureteral stone. admitted for UTI. COMPARISON: None. PROCEDURE COMMENTS: AP view(s) of the abdomen per protocol. FINDINGS: Nonspecific, nonobstructive abdominal bowel gas pattern. No evidence of free air. No abnormal calcification. No right UVJ calculus identified. Procedure Note Boogie Mcgee MD - 09/20/2017 CR, ABDOMEN AP, 09/20/2017 7:57 PM CLINICAL HISTORY: -non-visualization of right ureteral jet in bladder.?right ureteral stone. admitted for UTI. COMPARISON: None. PROCEDURE COMMENTS: AP view(s) of the abdomen per protocol. FINDINGS: Nonspecific, nonobstructive abdominal bowel gas pattern. No evidence offree air. No abnormal calcification. No right UVJ calculus identified. IMPRESSION: No acute finding. Marlon Yarbrough MD IMG DIAGNOSTIC IMAGING ORDERA BLES Final Result * (ABNORMAL) TROPONIN-T (09/20/2017 10:42 AM EDT) Only the most recent of3 resultswithin the time period is included. Troponin-T 0.08(H) <0.01 ng/mL 09/20/2017 11:14 AM EDT [facility] Blood VENOUS BLOOD / Unknown Venipuncture / Unknown 09/20/2017 10:42 AM EDT 09/20/2017 10:53 AM EDT Narrative [facility] - 09/20/2017 11:14 AM EDT Ingestion of joaquin doses of biotin (>5 mg/day) taken within 8 hours of drawing blood sample can interfere with this immunoassay test. us Jasper Dixon MD CHEMISTRY ORDERABLES Amie l Result [facility] [address] [place] [address] * REPEAT LACTIC ACID (09/20/2017 6:49 AM EDT) Lactic Acid 1.5 0.5 - 1.9 mmol/L 09/20/2017 7:15 AM EDT [facility] Blood VENOUS BLOOD / Unknown Venipuncture / Unknown 09/20/2017 6:49 AM EDT 09/20/2017 6:55 AM EDT Jasper Dixon MD CHEMISTRY ORDERABLES Amie l Result Performing Organization Address [facility] [facility] [place]/ZIP Co de Phone Number [facility] [address] [place] [address] * EXTRA BAER URINE CX (09/20/2017 4:19 AM EDT) Urine URINE SPECIMEN COLLECTION, CLEAN CATCH / Unknown 09/20/2017 4:19 AM EDT 09/20/2017 4:22 AM EDT Jasper Dixon MD MICROBIOLOGY - GENERAL OR DERABLES Final Result Performing Organization Address [facility] [place]/[facility] Co de Phone Number [facility] [address] [place] [address] * (ABNORMAL) BLOOD CULTURE NUCLEIC ACID (GRAM NEG) (09/20/2017 4:12 AM EDT) Pathologist [facility] Bl Cx Nucleic Acid Test POSITIVE for Enterobacter species by Verigene nucleic acid test. Conventional identification and antimicrobial susceptibility testing to follow.(A) Negative 09/21/2017 6:13 AM EDT [facility] Blood VENOUS BLOOD / Unknown Venipuncture / Unknown 09/20/2017 4:12 AM EDT 09/20/2017 4:20 AM EDT Jasper Dixon MD MICROBIOLOGY - GENERAL OR DERABLES Final Result Performing Organization Address [facility] [place]/ZIP Co de Phone Number [facility] [address] [facility] , [address] [place] [id number] * POCT HEMOCCULT 1-3 CARDS (09/19/2016 11:59 AM EDT) Only the most recent of2 resultswithin the time period is included. Fec Heme neg POS/NEG SEP OFFICE Lot Number SEP OFFICE Expiration Date SEP OFFICE SeriAl # SEP OFFICE Stool specimen (specimen) 09/19/2016 11:59 AM EDT us Omi Malika DO POINT OF CARE TEST ORDERABLES F inal Result Performing Organization Address [facility] [place]/ZIP Co de Phone Number SEP OFFICE * SCANNED RADIOLOGY REPORT (08/03/2016 10:29 AM EDT) Anatomical Region Laterality Modality Cardiac Stress T esting 08/03/2016 10:2 9 AM EDT us Unknown Unknown IMG DIAGNOSTIC IMAGING ORDERABLE S Final Result * LDL, CALCULATED (07/27/2016 3:35 PM EDT) Only the most recent of3 resultswithin the time period is included. Pathologist [facility] LDL Calculated 48 <=100 mg/dL [facility] Comment: < 100 Optimal 100 - 129 Near or above optimal 130 - 159 Borderline High 160 - 189 High >= 190 Very High Blood specimen (specimen) 07/27/2016 3:35 PM EDT 07/27/2016 7:35 PM EDT us Angelina Zaldivar MD CHEMISTRY ORDERABLES Amie l Result Performing Organization Address [facility] [place]/ZIP Co de Phone Number [facility] [address] [place] [address] * T3 FREE (09/18/2015 11:42 AM EDT) Pathologist [facility] T3 Free 3.40 2.00 - 4.40 pg/mL [facility] Blood specimen (specimen) UPPER LIMB STRUCTURE / Unknown 09/18/2015 11:42 AM EDT 09/18/2015 1:41 PM EDT us Daniela L Garcia GRADUATE TEACHER EDUCATION CHEMISTRY ORDERABLES Final R esult Performing Organization Address [facility] [place]/[facility] Co de Phone Number [facility] [address] [place] [address] * (ABNORMAL) POCT GLUCOSE (09/01/2013 3:44 PM EDT) Only the most recent of2 resultswithin the time period is included. Glucose 59(A) 60 - 200 mg/dL [facility] Comment:peanut butter cracke rs and sprite given in office, will recheck in 5 mins Lot Number SEP OFFICE Expiration Date SEP OFFICE SeriAl # SEP OFFICE Meter SEP OFFICE 09/01/2013 3:44 PM EDT us Omi Daly DO POINT OF CARE TEST ORDERABLES F inal Result Performing Organization Address [facility] de Phone Number SEP OFFICE * SCANNED PRE/POST PROCEDURES (09/01/2013 2:36 PM EDT) Narrative Procedure Note Unknown, Unknown - 09/01/2013 2:36 PM EDT us Unknown Unknown PROCEDURE/MINOR SURGICAL ORDERAB LES Final Result * SCANNED ANESTHESIA FORMS (09/01/2013 2:35 PM EDT) Narrative Procedure Note Unknown, Unknown - 09/01/2013 2:35 PM EDT us Unknown Unknown PROCEDURE/MINOR SURGICAL ORDERAB LES Final Result * POTASSIUM WHOLE BLOOD (08/27/2013 8:43 PM EDT) Only the most recent of6 resultswithin the time period is included. K-WB 4.2 3.5 - 5.0 mEq/L [facility] Blood specimen (specimen) UPPER LIMB STRUCTURE / Unknown 08/27/2013 8:43 PM EDT 08/27/2013 8:48 PM EDT Samuel Jo MD CHEMISTRY ORDERABLES F inal Result Performing Organization Address [facility] [place]/[facility] Co de Phone Number [facility] [address] [place] [address] * (ABNORMAL) DIFFERENTIAL (08/27/2013 4:30 AM EDT) Only the most recent of4 resultswithin the time period is included. Pathologist [facility] Neut Percent 75.1 % [facility] Lymph Percent 13.9 % [facility] [place] Percent 10.5 % [facility] Eos Percent 0.1 % [facility] Baso Percent 0.4 % [facility] Neut# 9.4(H) 1.8 - 7.7 x10(3)/mcL [facility] LAB Lymph# 1.7 0.6 - 4.8 x10(3)/[facility] SE LAB [place]# 1.3 0.0 - 1.3 x10(3)/[facility] Eos# 0.0 0.0 - 0.5 x10(3)/[facility] Baso# 0.0 0.0 - 0.2 x10(3)/[facility] Blood specimen (specimen) 08/27/2013 4:30 AM EDT 08/27/2013 4:32 AM EDT us Samuel Jo MD HEMATOLOGY ORDERABLES Final Result Performing Organization Address [facility] [place]/ZIP Co de Phone Number [facility] [address] [place] [address] * O2 SAT - MIXED VENOUS (08/26/2013 4:45 AM EDT) Only the most recent of2 resultswithin the time period is included. Pathologist [facility] O2 Sat - Mixed Venous 73 % [facility] Blood specimen (specimen) 08/26/2013 4:45 AM EDT 08/26/2013 4:52 AM EDT Samuel Jo MD CHEMISTRY ORDERABLES F inal Result [facility] [address] [place] [address] * (ABNORMAL) BLOOD GAS ARTERIAL (08/26/2013 3:15 AM EDT) Only the most recent of9 resultswithin the time period is included. pH 7.350(L) 7.370 - 7.440 [facility] pCO2 43 32 - 45 mmHg [facility] pO2 60(L) 80 - 95 mmHg [facility] HCO3 24 20 - 29 mmol/L [facility] TCO2 25 21 - 30 mmol/L [facility] Base Excess -2.0 -2.8 - 2.3 mEq/L [facility] O2 Sat 96 95 - 97 % [facility] Inspired O2 4L [facility] Specimen Type Arterial [facility] Blood specimen (specimen) UPPER LIMB STRUCTURE / Unknown 08/26/2013 3:15 AM EDT 08/26/2013 3:24 AM EDT Samuel Jo MD CHEMISTRY ORDERABLES F inal Result Performing Organization Address [facility] [place] Co de Phone Number [facility] [address] [place] [address] * (ABNORMAL) HEMOGLOBIN AND HEMATOCRIT (08/25/2013 4:40 PM EDT) Hgb 11.0(L) 13.5 - 17.1 gm/dL [facility] Hct 31.8(L) 38.9 - 51.6 % [facility] Blood specimen (specimen) UPPER LIMB STRUCTURE / Unknown 08/25/2013 4:40 PM EDT 08/25/2013 4:42 PM EDT Narrative [facility] - 08/25/2013 4:47 PM EDT 4 hours after admission to [facility] Samuel Jo MD HEMATOLOGY ORDERABLES Final Result Performing Organization Address [facility] [place]/[facility] Co de Phone Number [facility] [address] [place] [address] * (ABNORMAL) PARTIAL THROMBOPLASTIN TIME (08/25/2013 1:35 PM EDT) PTT 69.1(H) 24.4 - 35.0 second(s) [facility] Comment: Therapeutic range for direct thrombin inhibitors: Argatroban is 1.5 to 3 times the aPTT baseline. Lepirudin is 1.5 to 2 times the aPTT baseline. The aPTT should not exceed 100 seconds. The dosage of Argatroban should be decreased in patients with hepatic impairment. The dosage of Lepirudin should be decreased in renal insufficiency. The aPTT is no longer the appropriate test to monitor unfractionated heparin anticoagulation. Blood specimen (specimen) 08/25/2013 1:35 PM EDT 08/25/2013 1:35 PM EDT Narrative [facility] - 08/25/2013 2:17 PM EDT On admission to [facility] Samuel Jo MD HEMATOLOGY ORDERABLES Final Result Performing Organization Address [facility] [place]/[facility] Co de Phone Number [facility] [address] [place] [address] * FIBRINOGEN (08/25/2013 1:35 PM EDT) Fibrinogen 214 196 - 447 mg/dL [facility] Blood specimen (specimen) 08/25/2013 1:35 PM EDT 08/25/2013 1:35 PM EDT Narrative [facility] - 08/25/2013 2:06 PM EDT On admission to [facility] us Samuel Jo MD HEMATOLOGY ORDERABLES Final Result Performing Organization Address [facility] de Phone Number [facility] [address] [place] [address] * HEPARIN ANTI-XA, UNF (08/25/2013 5:05 AM EDT) Only the most recent of5 resultswithin the time period is included. Heparin Level UNF 0.37 0.30 - 0.70 IU/mL [facility] Comment: The therapeutic range for heparinized patients monitored by the Heparin Lvl UF is 0.30-0.70 IU/mL. Blood specimen (specimen) 08/25/2013 5:05 AM EDT 08/25/2013 5:48 AM EDT Narrative [facility] - 08/25/2013 6:09 AM EDT Heparin anti-Xa unfractionated level every day while on heparin us Tod Wolf MD HEMATOLOGY ORDERABLES Final Re sult Performing Organization Address [facility] [place]/[facility] Co de Phone Number [facility] [address] [place] [address] * STAPHYLOCOCCUS AUREUS SCREEN (08/24/2013 1:37 PM EDT) Pathologist [facility] Final Growth of Staphylococcus aureus identified as methicillin sensitive. [facility] Specimen from nose (specimen) 08/24/2013 1:37 PM EDT 08/24/2013 2:13 PM EDT us Samuel Jo MD MICROBIOLOGY - GENERAL ORDERABLES Final Result [facility] [address] [place] [address] * ABORH (08/24/2013 1:06 PM EDT) Pathologist [facility] ABORh Int A NEG [facility] Blood specimen (specimen) 08/24/2013 1:06 PM EDT 08/24/2013 1:30 PM EDT Narrative [facility] - 08/24/2013 2:50 PM EDT Only if redo patient us Samuel Jo MD BLOOD BANK ORDERABLES Final Result Performing Organization Address [facility] [place]/ZIP Co de Phone Number [facility] [address] [place] [address] * ANTIBODY SCREEN IGG (08/24/2013 1:06 PM EDT) Pathologist [facility] ABSC IgG Int Negative [facility] Blood specimen (specimen) 08/24/2013 1:06 PM EDT 08/24/2013 1:30 PM EDT Narrative [facility] - 08/24/2013 2:48 PM EDT Only if redo patient us Samuel Jo MD BLOOD BANK ORDERABLES Final Result [facility] [address] [place] [address] * COLD STRIP ROLLER PROCEDURE LOG (08/22/2013 12:00 AM EDT) Jeffy Fuentes MD [facility] C[facility] CATH ORDERABLES Amie l Result [facility] [address] [place] [id number] * SCANNED OR REPORT (10/19/2009 12:00 AM EDT) Narrative 10/19/2009 3:51 PM EDT Ordered by an unspecified provider. Transcriptions Unknown, U - 10/19/2009 3:36 PM EDT us U Unknown PROCEDURE/MINOR SURGICAL ORDERAB LES Final Result * CT ABD/PELVIS GOGGLES ASSEMBLER GC (02/07/2009 12:59 AM EST) Anatomical Region Laterality Modality Other 02/07/2009 12:5 9 AM EST Narrative 02/07/2009 7:[address] abdomen and pelvis. History- Left flank pain. Findings- The kidneys are normal in appearance, without hydronephrosis. No renal stones are present. No ureteral stones are seen. Visualized portions of the gastrointestinal tract are within normal limits. There is no free fluid or free air. Umw-iumjnyhu-dsuckvry images of the liver and spleen are unremarkable. Impression- No acute findings of the abdomen or pelvis. Motorcycle Repair Shop Supervisor- MARQUITA Garcia Physician- SHELL YUSUF MD Released Date Time- 02/07/09 1228 Procedure Note Shell Yusuf - 05/21/2009 CT abdomen and pelvis. History- Left flank pain. Findings- The kidneys are normal in appearance, without hydronephrosis. No renal stones are present. No ureteral stones are seen. Visualized portions of the gastrointestinal tract are within normal limits. There is no free fluid or free air. Ere-bivmzryh-yaojyole images of the liver and spleen are unremarkable. Impression- No acute findings of the abdomen or pelvis. Motorcycle Rep[employer] Shop Supervisor- MARQUITA Garcia Physician- SHELL YUSUF MD Released Date Time- 02/07/09 1228 Jarek Pack MD [facility] HISTORICAL F inal Result * XR ABDOMEN GC (02/07/2009 12:53 AM EST) Anatomical Region Laterality Modality Other 02/07/2009 12:5 3 AM EST Narrative 02/07/2009 8:34 AM EST KUB of the abdomen. History- Left flank pain. Findings- There are no obvious calcifications. The study is limited secondary to the patient's large body habitus. The bowel gas pattern is within normal limits. Impression- Unremarkable KUB. Motorcycle Repair Shop SupervisorMaya Garcia Physician- SUHA JACOBS MD Released Date Time- 02/07/091224 Procedure Suha Solis III - 05/21/2009 KUB of the abdomen. History- Left flank pain. Findings- There are no obvious calcifications. The study is limited secondary to the patient's large body habitus. The bowel gas pattern is within normal limits. Impression- Unremarkable KUB. Motorcycle Repair Shop Supervisoremile Garcia Physician- SUHA JACOBS MD Released Date Time- 02/07/091224 Jarek Pack MD [facility] STAR RAD HISTORICAL F inal Result * XR SOFT TISSUE OF THE NECK (08/25/2007 8:10 PM EDT) Anatomical Region Laterality Modality Other 08/25/2007 8:10 PM EDT Narrative 08/25/2007 9:23 PM EDT Two-view soft tissues of the neck 08/25/2007. History- The patient has a sensation of ingested medication still being present in the throat. No radiopaque foreign body is visualized. The epiglottis is normal in caliber. There is physiologic calcification of the larynx and hyoid bone. Retropharyngeal soft tissues felt to be within normal limits considering state of swallowing. There is moderate degenerative spurring in the cervical spine. Impression- The no evidence of foreign body. Soft tissue contours within normal limits. Thom YorkistMaya TATUM Reading Radiologist- PEGGY TOMAS MD Released Date Time- 08/26/07 0543 Procedure Note Peggy Tomas - 05/20/2009 Two-view soft tissues of the neck 08/25/2007. History- The patient has a sensation of ingested medication still being present in the throat. No radiopaque foreign body is visualized. The epiglottis is normal in caliber. There is physiologic calcification of the larynx and hyoid bone. Retropharyngeal soft tissues felt to be within normal limits considering state of swallowing. There is moderate degenerative spurring in the cervical spine. Impression- The no evidence of foreign body. Soft tissue contours within normal limits. Thom Ambrose PAULYLINN TATUM Reading Radiologist- PEGGY TOMAS MD Released Date Time- 08/26/07 0543 Timothy Carrion MD [facility] ANITA [email or web address] Result Visit Diagnoses Diagnosis Start Date DM (diabetes mellitus) (HCC) Type II or unspecified type diabetes mellitus without mention of complication, not stated as uncontrolled 02/12/2010 HTN (hypertension) Unspecified essential hypertension 02/12/2010 Hyperlipidemia Other and unspecified hyperlipidemia 04/20/2010 GERD (gastroesophageal reflux disease) Esophageal reflux 04/20/2010 Back pain Backache, unspecified 04/20/2010 Bronchitis Bronchitis, not specified as acute or chronic 08/06/2010 DM (diabetes mellitus) (HCC) Type II or unspecified type diabetes mellitus without mention of complication, not stated as uncontrolled 08/13/2010 Frequent urination Urinary frequency 08/13/2010 DM (diabetes mellitus) (HCC) Type II or unspecified type diabetes mellitus without mention of complication, not stated as uncontrolled 08/13/2010 Cellulitis Cellulitis and abscess of unspecified site 09/29/2010 DM (diabetes mellitus) (HCC) Type II or unspecified type diabetes mellitus without mention of complication, not stated as uncontrolled 09/29/2010 GERD (gastroesophageal reflux disease) Esophageal reflux 09/29/2010 HTN (hypertension) Unspecified essential hypertension 09/29/2010 Physical exam, annual Routine general medical examination at a health care facility 10/01/2010 Urinary frequency 12/10/2010 Abdominal pain Abdominal pain, unspecified site 12/10/2010 Peripheral edema Edema 12/10/2010 DM (diabetes mellitus) (HCC) Type II or unspecified type diabetes mellitus without mention of complication, not stated as uncontrolled 02/03/2011 Flank pain Abdominal pain, unspecified site 02/16/2011 Frequent urination Urinary frequency 02/16/2011 Hematuria Hematuria, unspecified 02/16/2011 Urine incontinence Unspecified urinary incontinence 06/20/2011 HTN (hypertension) Unspecified essential hypertension 10/07/2011 DM (diabetes mellitus) (HCC) Type II or unspecified type diabetes mellitus without mention of complication, not stated as uncontrolled 10/07/2011 Hyperlipidemia Other and unspecified hyperlipidemia 10/07/2011 DM (diabetes mellitus) (HCC) Type II or unspecified type diabetes mellitus without mention of complication, not stated as uncontrolled 10/07/2011 HTN (hypertension) Unspecified essential hypertension 10/07/2011 GERD (gastroesophageal reflux disease) Esophageal reflux 10/07/2011 Hyperlipidemia Other and unspecified hyperlipidemia 10/07/2011 DM (diabetes mellitus) (HCC) Type II or unspecified type diabetes mellitus without mention of complication, not stated as uncontrolled 12/27/2011 DM (diabetes mellitus) (HCC) Type II or unspecified type diabetes mellitus without mention of complication, not stated as uncontrolled 06/01/2012 DM (diabetes mellitus) (HCC) Type II or unspecified type diabetes mellitus without mention of complication, not stated as uncontrolled 06/05/2012 HTN (hypertension) Unspecified essential hypertension 06/05/2012 Hyperlipidemia Other and unspecified hyperlipidemia 06/05/2012 GERD (gastroesophageal reflux disease) Esophageal reflux 06/05/2012 Cellulitis Cellulitis and abscess of unspecified site 06/05/2012 Shingles Herpes zoster without mention of complication 06/10/2012 HTN (hypertension) Unspecified essential hypertension 09/17/2012 Hyperlipidemia Other and unspecified hyperlipidemia 09/17/2012 DM (diabetes mellitus) (HCC) Type II or unspecified type diabetes mellitus without mention of complication, not stated as uncontrolled 09/17/2012 DM (diabetes mellitus) (HCC) Type II or unspecified type diabetes mellitus without mention of complication, not stated as uncontrolled 09/17/2012 HTN (hypertension) Unspecified essential hypertension 09/17/2012 Hyperlipidemia Other and unspecified hyperlipidemia 09/17/2012 GERD (gastroesophageal reflux disease) Esophageal reflux 09/17/2012 Routine general medical examination at a health care facility 09/17/2012 Difficulty urinating Other symptoms involving urinary system 11/08/2012 DM (diabetes mellitus) (HCC) Type II or unspecified type diabetes mellitus without mention of complication, not stated as uncontrolled 07/23/2013 DM (diabetes mellitus) (HCC) Type II or unspecified type diabetes mellitus without mention of complication, not stated as uncontrolled 07/23/2013 Type II or unspecified type diabetes mellitus without mention of complication, uncontrolled 08/16/2013 Chest pain, unspecified 08/16/2013 Hyperlipidemia Other and unspecified hyperlipidemia 08/16/2013 HTN (hypertension) Unspecified essential hypertension 08/19/2013 Chest pain Chest pain, unspecified 08/19/2013 Ischemic heart disease Chronic ischemic heart disease, unspecified 08/19/2013 DM (diabetes mellitus) (HCC) Type II or unspecified type diabetes mellitus without mention of complication, not stated as uncontrolled 08/19/2013 Hyperlipidemia Other and unspecified hyperlipidemia 08/19/2013 GERD (gastroesophageal reflux disease) Esophageal reflux 08/19/2013 HTN (hypertension) Unspecified essential hypertension 08/19/2013 Chest pain Chest pain, unspecified 08/19/2013 Ischemic heart disease Chronic ischemic heart disease, unspecified 08/19/2013 Chest pain, unspecified 08/22/2013 Coronary atherosclerosis of [place] coronary artery 08/25/2013 CAD (coronary artery disease) Coronary atherosclerosis of unspecified type of vessel, [place] or graft 08/23/2013 Chest pain Chest pain, unspecified 08/23/2013 DM (diabetes mellitus) (HCC) Type II or unspecified type diabetes mellitus without mention of complication, not stated as uncontrolled 08/23/2013 GERD (gastroesophageal reflux disease) Esophageal reflux 08/23/2013 HTN (hypertension) Unspecified essential hypertension 08/23/2013 Hyperlipidemia Other and unspecified hyperlipidemia 08/23/2013 Ischemic heart disease Chronic ischemic heart disease, unspecified 08/23/2013 DM (diabetes mellitus), type 2, uncontrolled Type II or unspecified type diabetes mellitus without mention of complication, uncontrolled 08/23/2013 Postoperative anemia due to acute blood loss Acute posthemorrhagic anemia 08/23/2013 S/P CABG x 3 Postsurgical aortocoronary bypass status 08/23/2013 DM (diabetes mellitus), type 2, uncontrolled Type II or unspecified type diabetes mellitus without mention of complication, uncontrolled 09/01/2013 S/P CABG x 3 Postsurgical aortocoronary bypass status 09/01/2013 CAD (coronary artery disease) Coronary atherosclerosis of unspecified type of vessel, [place] or graft 09/01/2013 HTN (hypertension) Unspecified essential hypertension 09/01/2013 Cellulitis Cellulitis and abscess of unspecified site 09/04/2013 DM (diabetes mellitus), type 2, uncontrolled Type II or unspecified type diabetes mellitus without mention of complication, uncontrolled 09/04/2013 DM (diabetes mellitus), type 2, uncontrolled Type II or unspecified type diabetes mellitus without mention of complication, uncontrolled 09/12/2013 CAD (coronary artery disease) Coronary atherosclerosis of unspecified type of vessel, [place] or graft 09/16/2013 HTN (hypertension) Unspecified essential hypertension 09/16/2013 S/P CABG x 3 Postsurgical aortocoronary bypass status 09/16/2013 Ischemic heart disease Chronic ischemic heart disease, unspecified 09/16/2013 DM (diabetes mellitus), type 2, uncontrolled Type II or unspecified type diabetes mellitus without mention of complication, uncontrolled 09/25/2013 S/P CABG x 3 Postsurgical aortocoronary bypass status 09/25/2013 DM (diabetes mellitus), type 2, uncontrolled Type II or unspecified type diabetes mellitus without mention of complication, uncontrolled 10/06/2013 GERD (gastroesophageal reflux disease) Esophageal reflux 10/06/2013 Hypokalemia Hypopotassemia 10/15/2013 DM (diabetes mellitus), type 2, uncontrolled Type II or unspecified type diabetes mellitus without mention of complication, uncontrolled 10/28/2013 DM (diabetes mellitus), type 2, uncontrolled Type II or unspecified type diabetes mellitus without mention of complication, uncontrolled 10/28/2013 Hyperlipidemia Other and unspecified hyperlipidemia 01/31/2014 DM (diabetes mellitus), type 2, uncontrolled Type II or unspecified type diabetes mellitus without mention of complication, uncontrolled 01/31/2014 HTN (hypertension) Unspecified essential hypertension 01/31/2014 Hyperlipidemia Other and unspecified hyperlipidemia 01/31/2014 HTN (hypertension) Unspecified essential hypertension 04/18/2014 Hyperlipidemia Other and unspecified hyperlipidemia 04/18/2014 Routine general medical examination at a health care facility 04/18/2014 Vitamin D deficiency Unspecified vitamin D deficiency 04/18/2014 Routine general medical examination at a health care facility 04/18/2014 DM (diabetes mellitus), type 2, uncontrolled Type II or unspecified type diabetes mellitus without mention of complication, uncontrolled 04/18/2014 HTN (hypertension) Unspecified essential hypertension 04/18/2014 Hyperlipidemia Other and unspecified hyperlipidemia 04/18/2014 CAD (coronary artery disease) Coronary atherosclerosis of unspecified type of vessel, [place] or graft 04/18/2014 Vitamin D deficiency Unspecified vitamin D deficiency 04/18/2014 Sinusitis Unspecified sinusitis (chronic) 04/18/2014 Vitamin D deficiency Unspecified vitamin D deficiency 04/21/2014 Hyperlipidemia Other and unspecified hyperlipidemia 05/29/2014 DM (diabetes mellitus), type 2, uncontrolled Type II or unspecified type diabetes mellitus without mention of complication, uncontrolled 08/04/2014 Uncontrolled type 2 diabetes mellitus with microalbuminuria or microproteinuria Type II or unspecified type diabetes mellitus with renal manifestations, uncontrolled 08/20/2014 Hyperlipidemia Other and unspecified hyperlipidemia 08/20/2014 Essential hypertension Unspecified essential hypertension 08/20/2014 Vitamin D deficiency Unspecified vitamin D deficiency 08/20/2014 Vitamin B12 deficiency Other B-complex deficiencies 08/20/2014 Tinea pedis of right foot Dermatophytosis of foot 08/20/2014 Uncontrolled type 2 diabetes mellitus with microalbuminuria or microproteinuria Type II or unspecified type diabetes mellitus with renal manifestations, uncontrolled 09/22/2014 Vitamin B12 deficiency Other B-complex deficiencies 09/22/2014 Vitamin D deficiency Unspecified vitamin D deficiency 09/22/2014 Postoperative anemia due to acute blood loss Acute posthemorrhagic anemia 09/22/2014 S/P CABG x 3 Postsurgical aortocoronary bypass status 09/22/2014 CAD (coronary artery disease) Coronary atherosclerosis of unspecified type of vessel, [place] or graft 09/22/2014 Chest pain Chest pain, unspecified 09/22/2014 Ischemic heart disease Chronic ischemic heart disease, unspecified 09/22/2014 Hyperlipidemia Other and unspecified hyperlipidemia 09/22/2014 GERD (gastroesophageal reflux disease) Esophageal reflux 09/22/2014 DM (diabetes mellitus), type 2, uncontrolled Type II or unspecified type diabetes mellitus without mention of complication, uncontrolled 09/22/2014 HTN (hypertension) Unspecified essential hypertension 09/22/2014 Controlled type 2 diabetes mellitus without complication (HCC) 09/23/2014 Hypokalemia Hypopotassemia 09/23/2014 Controlled type 2 diabetes mellitus without complication (HCC) 09/23/2014 Essential hypertension Unspecified essential hypertension 09/23/2014 Hyperlipidemia Other and unspecified hyperlipidemia 09/23/2014 Vitamin D deficiency Unspecified vitamin D deficiency 09/23/2014 Vitamin B12 deficiency Other B-complex deficiencies 09/23/2014 Urinary tract infection without hematuria, site unspecified 11/13/2014 Controlled type 2 diabetes mellitus without complication (HCC) 12/03/2014 Essential hypertension Unspecified essential hypertension 12/03/2014 Gastroesophageal reflux disease without esophagitis Esophageal reflux 12/03/2014 Controlled type 2 diabetes mellitus without complication (HCC) 12/24/2014 Hyperlipidemia Other and unspecified hyperlipidemia 12/24/2014 Vitamin B12 deficiency Other B-complex deficiencies 12/24/2014 Vitamin D deficiency Unspecified vitamin D deficiency 12/24/2014 Postoperative anemia due to acute blood loss Acute posthemorrhagic anemia 12/24/2014 S/P CABG x 3 Postsurgical aortocoronary bypass status 12/24/2014 Ischemic heart disease Chronic ischemic heart disease, unspecified 12/24/2014 Essential hypertension Unspecified essential hypertension 12/24/2014 Controlled type 2 diabetes mellitus without complication (HCC) 12/25/2014 Vitamin D deficiency Unspecified vitamin D deficiency 12/25/2014 Vitamin B12 deficiency Other B-complex deficiencies 12/25/2014 Hypertension associated with diabetes (HCC) Type II or unspecified type diabetes mellitus with other specified manifestations, not stated as uncontrolled 12/25/2014 Hyperlipidemia associated with type 2 diabetes mellitus (HCC) 12/25/2014 Controlled type 2 diabetes mellitus without complication (HCC) 04/06/2015 Vitamin B12 deficiency Other B-complex deficiencies 04/06/2015 Vitamin D deficiency Unspecified vitamin D deficiency 04/06/2015 Postoperative anemia due to acute blood loss Acute posthemorrhagic anemia 04/06/2015 S/P CABG x 3 Postsurgical aortocoronary bypass status 04/06/2015 Ischemic heart disease Chronic ischemic heart disease, unspecified 04/06/2015 Hyperlipidemia Other and unspecified hyperlipidemia 04/06/2015 Controlled type 2 diabetes mellitus without complication (HCC) 04/07/2015 Hypertension associated with diabetes (HCC) Type II or unspecified type diabetes mellitus with other specified manifestations, not stated as uncontrolled 04/07/2015 Hyperlipidemia associated with type 2 diabetes mellitus (HCC) 04/07/2015 Vitamin B12 deficiency Other B-complex deficiencies 04/07/2015 Vitamin D deficiency Unspecified vitamin D deficiency 04/07/2015 Dysuria 05/01/2015 Acute bacterial sinusitis Acute sinusitis, unspecified 05/01/2015 BPH with urinary obstruction Hypertrophy of prostate with urinary obstruction and other lower urinary tract symptoms (LUTS) 05/01/2015 Encounter for screening colonoscopy Special screening for malignant neoplasms, colon 05/01/2015 Screening for colon cancer Special screening for malignant neoplasms, colon 05/03/2015 Screening PSA (prostate specific antigen) Special screening for malignant neoplasm of prostate 06/11/2015 Dysuria 06/11/2015 BPH with urinary obstruction Hypertrophy of prostate with urinary obstruction and other lower urinary tract symptoms (LUTS) 06/11/2015 Screening PSA (prostate specific antigen) Special screening for malignant neoplasm of prostate 06/11/2015 Controlled type 2 diabetes mellitus without complication (HCC) 07/06/2015 Type 2 diabetes mellitus with complication (HCC) 07/09/2015 Type 2 diabetes mellitus without complication (HCC) 07/09/2015 Hypertension associated with diabetes (HCC) Type II or unspecified type diabetes mellitus with other specified manifestations, not stated as uncontrolled 07/09/2015 Hyperlipidemia associated with type 2 diabetes mellitus (HCC) 07/09/2015 Vitamin D deficiency Unspecified vitamin D deficiency 07/09/2015 Other fatigue 09/18/2015 Other fatigue 09/18/2015 Dysuria 09/23/2015 Chronic fatigue Other malaise and fatigue 09/23/2015 Insomnia, persistent Persistent disorder of initiating or maintaining sleep 09/23/2015 Type 2 diabetes mellitus without complication (HCC) 10/11/2015 Type 2 diabetes mellitus with complication (HCC) 10/12/2015 Vitamin B12 deficiency Other B-complex deficiencies 10/12/2015 Hypertension associated with diabetes ([facility]) Type II or unspecified type diabetes mellitus with other specified manifestations, not stated as uncontrolled 10/12/2015 Hyperlipidemia associated with type 2 diabetes mellitus (HCC) 10/12/2015 Type 2 diabetes mellitus without complication, without long-term current use of insulin ([facility]) 12/27/2015 Type 2 diabetes mellitus with complication, without long-term current use of insulin ([facility]) 12/27/2015 Type 2 diabetes mellitus with complication ([facility]) 03/30/2016 Back pain with left-sided radiculopathy 04/04/2016 Controlled type 2 diabetes mellitus without complication, without long-term current use of insulin ([facility]) 04/04/2016 Type 2 diabetes mellitus without complication, without long-term current use of insulin ([facility]) 04/04/2016 Hypertension associated with diabetes ([facility]) Type II or unspecified type diabetes mellitus with other specified manifestations, not stated as uncontrolled 04/04/2016 Hyperlipidemia associated with type 2 diabetes mellitus ([facility]) 04/04/2016 Vitamin D deficiency Unspecified vitamin D deficiency 04/04/2016 Vitamin B12 deficiency Other B-complex deficiencies 04/04/2016 Acute non-recurrent frontal sinusitis 05/18/2016 Dermatitis Contact dermatitis and other eczema, due to unspecified cause 06/17/2016 Encounter to establish care with new doctor 07/20/2016 Chest discomfort Other chest pain 07/20/2016 Essential hypertension Unspecified essential hypertension 07/20/2016 Ischemic heart disease Chronic ischemic heart disease, unspecified 07/20/2016 S/P CABG x 3 Postsurgical aortocoronary bypass status 07/20/2016 Type 2 diabetes mellitus without complication, without long-term current use of insulin ([facility]) 07/27/2016 Hyperlipidemia associated with type 2 diabetes mellitus ([facility]) 07/27/2016 Chest discomfort Other chest pain 07/27/2016 Essential hypertension Unspecified essential hypertension 07/27/2016 Ischemic heart disease Chronic ischemic heart disease, unspecified 07/27/2016 S/P CABG x 3 Postsurgical aortocoronary bypass status 07/27/2016 Chest discomfort Other chest pain 08/01/2016 Essential hypertension Unspecified essential hypertension 08/01/2016 Ischemic heart disease Chronic ischemic heart disease, unspecified 08/01/2016 S/P CABG x 3 Postsurgical aortocoronary bypass status 08/01/2016 Chest discomfort Other chest pain 08/01/2016 Essential hypertension Unspecified essential hypertension 08/01/2016 Ischemic heart disease Chronic ischemic heart disease, unspecified 08/01/2016 S/P CABG x 3 Postsurgical aortocoronary bypass status 08/01/2016 Type 2 diabetes mellitus without complication (HCC) 08/02/2016 Vitamin D deficiency Unspecified vitamin D deficiency 08/02/2016 Vitamin B12 deficiency Other B-complex deficiencies 08/02/2016 Hyperlipidemia associated with type 2 diabetes mellitus (HCC) 08/02/2016 Hypertension associated with diabetes (HCC) Type II or unspecified type diabetes mellitus with other specified manifestations, not stated as uncontrolled 08/02/2016 Type 2 diabetes mellitus with complication, without long-term current use of insulin (HCC) 08/02/2016 Essential hypertension Unspecified essential hypertension 08/03/2016 Ischemic heart disease Chronic ischemic heart disease, unspecified 08/03/2016 Chest pain, unspecified type 08/03/2016 Screening for colon cancer Special screening for malignant neoplasms, colon 09/19/2016 Essential hypertension Unspecified essential hypertension 09/21/2016 Ischemic heart disease Chronic ischemic heart disease, unspecified 09/21/2016 S/P CABG x 3 Postsurgical aortocoronary bypass status 09/21/2016 Hyperlipidemia, unspecified hyperlipidemia type 09/21/2016 Type 2 diabetes mellitus without complication, without long-term current use of insulin (HCC) 10/30/2016 Type 2 diabetes mellitus with complication, without long-term current use of insulin (HCC) 11/02/2016 Type 2 diabetes mellitus without complication, without long-term current use of insulin (HCC) 11/07/2016 Hyperlipidemia associated with type 2 diabetes mellitus (HCC) 11/07/2016 Hypertension associated with diabetes (HCC) Type II or unspecified type diabetes mellitus with other specified manifestations, not stated as uncontrolled 11/07/2016 Vitamin D deficiency Unspecified vitamin D deficiency 11/07/2016 Vitamin B12 deficiency Other B-complex deficiencies 11/07/2016 Candidiasis Candidiasis of unspecified site 11/07/2016 Abscess Cellulitis and abscess of unspecified site 12/02/2016 Ischemic heart disease Chronic ischemic heart disease, unspecified 12/20/2016 Chest pain, unspecified type 12/20/2016 Type 2 diabetes mellitus without complication, unspecified fdc insulin use status 12/20/2016 Candidiasis Candidiasis of unspecified site 04/03/2017 Type 2 diabetes mellitus without complication, unspecified 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 insulin use status 06/06/2017 Ischemic heart disease Chronic ischemic heart disease, unspecified 06/06/2017 Chest pain, unspecified type 06/06/2017 Abscess Cellulitis and abscess of unspecified site 06/11/2017 Dysuria 06/11/2017 BPH with urinary obstruction Hypertrophy of prostate with urinary obstruction and other lower urinary tract symptoms (LUTS) 06/11/2017 Sinusitis, unspecified chronicity, unspecified location 06/11/2017 Urinary tract infection without hematuria, site unspecified 06/11/2017 BPH with urinary obstruction Hypertrophy of prostate with urinary obstruction and other lower urinary tract symptoms (LUTS) 07/20/2017 Acute non-recurrent frontal sinusitis 08/03/2017 Ischemic heart disease Chronic ischemic heart disease, unspecified 09/05/2017 Chest pain, unspecified type 09/05/2017 Pyelonephritis Pyelonephritis, unspecified 09/20/2017 Acute pyelonephritis Acute pyelonephritis without lesion of renal medullary necrosis 09/25/2017 Acute pyelonephritis Acute pyelonephritis without lesion of renal medullary necrosis 09/26/2017 Acute pyelonephritis Acute pyelonephritis without lesion of renal medullary necrosis 09/27/2017 Acute pyelonephritis Acute pyelonephritis without lesion of renal medullary necrosis 09/28/2017 Acute pyelonephritis Acute pyelonephritis without lesion of renal medullary necrosis 09/29/2017 Acute pyelonephritis Acute pyelonephritis without lesion of renal medullary necrosis 09/30/2017 Acute pyelonephritis Acute pyelonephritis without lesion of renal medullary necrosis 10/01/2017 Acute pyelonephritis Acute pyelonephritis without lesion of renal medullary necrosis 10/02/2017 Screening for colon cancer Special screening for malignant neoplasms, colon 10/03/2017 Type 2 diabetes mellitus without complication, without long-term current use of insulin (HCC) 10/03/2017 Acute pyelonephritis Acute pyelonephritis without lesion of renal medullary necrosis 10/03/2017 Type 2 diabetes mellitus without complication, without long-term current use of insulin (HCC) 10/04/2017 Type 2 diabetes mellitus without complication, unspecified whether fdc insulin use (HCC) 10/06/2017 Controlled type 2 diabetes mellitus without complication, without long-term current use of insulin (HCC) 10/10/2017 Dysuria 10/10/2017 Anhidrosis 10/10/2017 Dysuria 10/11/2017 Controlled type 2 diabetes mellitus without complication, without long-term current use of insulin (HCC) 10/11/2017 DDD (degenerative disc disease), lumbar Degeneration of lumbar or lumbosacral intervertebral disc 10/15/2017 Chronic right-sided low back pain with right-sided sciatica 10/15/2017 Annual physical exam Routine general medical examination at a health care facility 10/15/2017 Immunization due Need for prophylactic vaccination and inoculation against unspecified single disease 10/26/2017 Puncture wound of right foot, initial encounter 10/28/2017 Chronic pain syndrome 11/06/2017 Spondylosis of lumbar region without myelopathy or radiculopathy Lumbosacral spondylosis without myelopathy 11/06/2017 Sacroiliitis Sacroiliitis, not elsewhere classified 11/06/2017 Chronic pain syndrome 11/06/2017 Spondylosis of lumbar region without myelopathy or radiculopathy Lumbosacral spondylosis without myelopathy 11/06/2017 Sacroiliitis Sacroiliitis, not elsewhere classified 11/06/2017 Enlarged prostate Hypertrophy of prostate without urinary obstruction and other lower urinary tract symptoms (LUTS) 11/13/2017 Chronic fatigue Other malaise and fatigue 11/13/2017 Dysuria 11/25/2017 Annual physical exam Routine general medical examination at a health care facility 11/25/2017 Enlarged prostate Hypertrophy of prostate without urinary obstruction and other lower urinary tract symptoms (LUTS) 11/25/2017 Type 2 diabetes mellitus without complication, unspecified 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 insulin use (HCC) 11/25/2017 Type 2 diabetes mellitus without complication, unspecified whether fdc insulin use (HCC) 11/26/2017 Hepatitis C antibody positive in blood 11/27/2017 Hepatitis C antibody positive in blood 12/01/2017 Dysuria 12/01/2017 Essential hypertension Unspecified essential hypertension 12/01/2017 Dysuria 12/01/2017 Essential hypertension Unspecified essential hypertension 12/01/2017 Controlled type 2 diabetes mellitus without complication, without long-term current use of insulin (HCC) 12/01/2017 Hepatitis C antibody positive in blood 12/01/2017 Chronic pain syndrome 12/06/2017 Spondylosis of lumbar region without myelopathy or radiculopathy Lumbosacral spondylosis without myelopathy 12/06/2017 Sacroiliitis Sacroiliitis, not elsewhere classified 12/06/2017 Ischemic heart disease Chronic ischemic heart disease, unspecified 12/10/2017 Chest pain, unspecified type 12/10/2017 Chronic pain syndrome 12/10/2017 Spondylosis of lumbar region without myelopathy or radiculopathy Lumbosacral spondylosis without myelopathy 12/10/2017 Sacroiliitis Sacroiliitis, not elsewhere classified 12/10/2017 Chronic pain syndrome 12/12/2017 Spondylosis of lumbar region without myelopathy or radiculopathy Lumbosacral spondylosis without myelopathy 12/12/2017 Sacroiliitis Sacroiliitis, not elsewhere classified 12/12/2017 Ischemic heart disease Chronic ischemic heart disease, unspecified 12/20/2017 Chest pain, unspecified type 12/20/2017 Spondylosis of lumbar region without myelopathy or radiculopathy Lumbosacral spondylosis without myelopathy 01/10/2018 Chronic pain syndrome 01/10/2018 Sacroiliitis Sacroiliitis, not elsewhere classified 01/10/2018 Type 2 diabetes mellitus without complication (HCC) 01/17/2018 Essential hypertension Unspecified essential hypertension 01/30/2018 Enlarged prostate Hypertrophy of prostate without urinary obstruction and other lower urinary tract symptoms (LUTS) 02/11/2018 Enlarged prostate Hypertrophy of prostate without urinary obstruction and other lower urinary tract symptoms (LUTS) 02/14/2018 Type 2 diabetes mellitus without complication, unspecified 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 insulin use (HCC) 03/02/2018 Spondylosis of lumbar region without myelopathy or radiculopathy Lumbosacral spondylosis without myelopathy 03/07/2018 Spondylosis of lumbar region without myelopathy or radiculopathy Lumbosacral spondylosis without myelopathy 03/13/2018 Chronic pain syndrome 03/13/2018 Sacroiliitis Sacroiliitis, not elsewhere classified 03/13/2018 Ischemic heart disease Chronic ischemic heart disease, unspecified 03/18/2018 Chest pain, unspecified type 03/18/2018 Screening for colon cancer Special screening for malignant neoplasms, colon 03/21/2018 Controlled type 2 diabetes mellitus without complication, without long-term current use of insulin (HCC) 03/21/2018 Acute bacterial sinusitis Acute sinusitis, unspecified 03/21/2018 Esophageal stricture Stricture and stenosis of esophagus 03/21/2018 Benign non-nodular prostatic hyperplasia with lower urinary tract symptoms 04/10/2018 Weak urinary stream Slowing of urinary stream 04/10/2018 History of UTI Personal history of urinary (tract) infection 04/10/2018 Overactive bladder Hypertonicity of bladder 04/10/2018 Urge incontinence 04/10/2018 Yeast dermatitis of penis Candidiasis of other urogenital sites 04/10/2018 Uncontrolled type 2 diabetes mellitus with hyperglycemia (HCC) 04/10/2018 Candidal balanitis Candidiasis of other urogenital sites 04/10/2018 Glucosuria Glycosuria 04/10/2018 Prostate cancer screening Special screening for malignant neoplasm of prostate 04/10/2018 Benign non-nodular prostatic hyperplasia with lower urinary tract symptoms 04/23/2018 Frequency of micturition Urinary frequency 04/23/2018 Incomplete bladder emptying 04/23/2018 History of UTI Personal history of urinary (tract) infection 04/23/2018 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 04/23/2018 Glucosuria Glycosuria 04/23/2018 Uncontrolled type 2 diabetes mellitus with hyperglycemia (HCC) 04/23/2018 Candidal balanitis Candidiasis of other urogenital sites 04/23/2018 Type 2 diabetes mellitus without complication, without long-term current use of insulin (HCC) 04/29/2018 Obesity, Class II, BMI 35-39.9 Obesity, unspecified 04/29/2018 DDD (degenerative disc disease), lumbar Degeneration of lumbar or lumbosacral intervertebral disc 04/29/2018 Spondylosis of lumbar region without myelopathy or radiculopathy Lumbosacral spondylosis without myelopathy 05/10/2018 Acute bacterial sinusitis Acute sinusitis, unspecified 05/15/2018 Cellulitis of leg, left Cellulitis and abscess of leg, except foot 05/15/2018 Essential hypertension Unspecified essential hypertension 05/15/2018 Type 2 diabetes mellitus without complication, without long-term current use of insulin (HCC) 05/20/2018 Type 2 diabetes mellitus without complication, without long-term current use of insulin (HCC) 05/27/2018 Benign non-nodular prostatic hyperplasia with lower urinary tract symptoms 05/27/2018 Incomplete bladder emptying 05/27/2018 Overactive bladder Hypertonicity of bladder 05/27/2018 Uncontrolled type 2 diabetes mellitus with hyperglycemia ([facility]) 05/27/2018 Yeast dermatitis of penis Candidiasis of other urogenital sites 05/27/2018 Phimosis Redundant prepuce and phimosis 05/27/2018 Frequency of micturition Urinary frequency 05/27/2018 Glucosuria Glycosuria 05/27/2018 Enlarged prostate Hypertrophy of prostate without urinary obstruction and other lower urinary tract symptoms (LUTS) 05/27/2018 Type 2 diabetes mellitus without complication, unspecified whether fdc insulin use (HCC) 05/28/2018 Obesity, Class II, BMI 35-39.9 Obesity, unspecified 05/28/2018 Essential hypertension Unspecified essential hypertension 05/28/2018 Ischemic heart disease Chronic ischemic heart disease, unspecified 06/18/2018 Chest pain, unspecified type 06/18/2018 Snoring Other dyspnea and respiratory abnormality 06/27/2018 DDD (degenerative disc disease), lumbar Degeneration of lumbar or lumbosacral intervertebral disc 06/27/2018 Gastroesophageal reflux disease without esophagitis Esophageal reflux 06/27/2018 Essential hypertension Unspecified essential hypertension 06/27/2018 Other hyperlipidemia 06/27/2018 S/P CABG x 3 Postsurgical aortocoronary bypass status 06/27/2018 Uncontrolled type 2 diabetes mellitus with hyperglycemia ([facility]) 06/27/2018 Vitamin B12 deficiency Other B-complex deficiencies 06/27/2018 Vitamin D deficiency Unspecified vitamin D deficiency 06/27/2018 Ischemic heart disease Chronic ischemic heart disease, unspecified 06/27/2018 Snoring Other dyspnea and respiratory abnormality 07/04/2018 DDD (degenerative disc disease), lumbar Degeneration of lumbar or lumbosacral intervertebral disc 07/04/2018 Gastroesophageal reflux disease without esophagitis Esophageal reflux 07/04/2018 Essential hypertension Unspecified essential hypertension 07/04/2018 Other hyperlipidemia 07/04/2018 S/P CABG x 3 Postsurgical aortocoronary bypass status 07/04/2018 Uncontrolled type 2 diabetes mellitus with hyperglycemia ([facility]) 07/04/2018 Vitamin B12 deficiency Other B-complex deficiencies 07/04/2018 Vitamin D deficiency Unspecified vitamin D deficiency 07/04/2018 Ischemic heart disease Chronic ischemic heart disease, unspecified 07/04/2018 Obesity, Class III, BMI 40-49.9 (morbid obesity) Morbid obesity 07/08/2018 Chronic pain syndrome 07/11/2018 Sacroiliitis Sacroiliitis, not elsewhere classified 07/11/2018 Spondylosis of lumbar region without myelopathy or radiculopathy Lumbosacral spondylosis without myelopathy 07/11/2018 BPH with urinary obstruction Hypertrophy of prostate with urinary obstruction and other lower urinary tract symptoms (LUTS) 07/12/2018 Uncontrolled type 2 diabetes mellitus with hyperglycemia (HCC) 07/15/2018 Pharyngoesophageal dysphagia Dysphagia, pharyngoesophageal phase 07/17/2018 Pharyngoesophageal dysphagia Dysphagia, pharyngoesophageal phase 07/17/2018 Eosinophilic esophagitis 07/19/2018 Uncontrolled type 2 diabetes mellitus with hyperglycemia (HCC) 07/22/2018 Spondylosis of lumbar region without myelopathy or radiculopathy Lumbosacral spondylosis without myelopathy 07/24/2018 Dyslipidemia associated with type 2 diabetes mellitus (HCC) Type II or unspecified type diabetes mellitus with other specified manifestations, not stated as uncontrolled 07/29/2018 Vitamin D deficiency Unspecified vitamin D deficiency 07/29/2018 Dyslipidemia associated with type 2 diabetes mellitus (HCC) Type II or unspecified type diabetes mellitus with other specified manifestations, not stated as uncontrolled 07/29/2018 Obesity (BMI 30-39.9) Obesity, unspecified 07/29/2018 Dyslipidemia associated with type 2 diabetes mellitus (HCC) Type II or unspecified type diabetes mellitus with other specified manifestations, not stated as uncontrolled 07/29/2018 Vitamin D deficiency Unspecified vitamin D deficiency 07/29/2018 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, unspecified vessel or lesion type 07/29/2018 Dyslipidemia associated with type 2 diabetes mellitus (HCC) Type II or unspecified type diabetes mellitus with other specified manifestations, not stated as uncontrolled 08/01/2018 Elevated lipoprotein(a) Other disorders of lipoid metabolism 08/01/2018 Vitamin D deficiency Unspecified vitamin D deficiency 08/01/2018 Vitamin D deficiency Unspecified vitamin D deficiency 08/06/2018 SOB (shortness of breath) Shortness of breath 08/06/2018 DDD (degenerative disc disease), lumbar Degeneration of lumbar or lumbosacral intervertebral disc 08/06/2018 Elevated lipoprotein(a) Other disorders of lipoid metabolism 08/06/2018 Esophageal dysphagia Dysphagia, pharyngoesophageal phase 08/06/2018 Dyslipidemia associated with type 2 diabetes mellitus (HCC) Type II or unspecified type diabetes mellitus with other specified manifestations, not stated as uncontrolled 08/06/2018 Uncontrolled type 2 diabetes mellitus with hyperglycemia (HCC) 08/06/2018 Essential hypertension Unspecified essential hypertension 08/06/2018 Mixed hyperlipidemia 08/06/2018 S/P CABG x 3 Postsurgical aortocoronary bypass status 08/06/2018 Uncontrolled type 2 diabetes mellitus with hyperglycemia (HCC) 08/12/2018 Obesity, Class II, BMI 35-39.9 Obesity, unspecified 08/13/2018 Essential hypertension Unspecified essential hypertension 08/20/2018 Obesity (BMI 30-39.9) Obesity, unspecified 08/27/2018 Essential hypertension Unspecified essential hypertension 08/29/2018 Primary snoring Other dyspnea and respiratory abnormality 09/02/2018 Obstructive sleep apnea Obstructive sleep apnea (adult) (pediatric) 09/02/2018 Obstructive sleep apnea Obstructive sleep apnea (adult) (pediatric) 09/10/2018 Ischemic heart disease Chronic ischemic heart disease, unspecified 09/16/2018 Chest pain, unspecified type 09/16/2018 Eosinophilic esophagitis 09/20/2018 Eosinophilic esophagitis 09/20/2018 Obesity (BMI 30-39.9) Obesity, unspecified 10/07/2018 Chronic pain syndrome 10/11/2018 Sacroiliitis Sacroiliitis, not elsewhere classified 10/11/2018 Degenerative disc disease, lumbar Degeneration of lumbar or lumbosacral intervertebral disc 10/11/2018 Spondylosis of lumbar region without myelopathy or radiculopathy Lumbosacral spondylosis without myelopathy 10/11/2018 Type 2 diabetes mellitus without complication, unspecified whether fdc insulin use (HCC) 10/14/2018 Uncontrolled type 2 diabetes mellitus with hyperglycemia (HCC) 10/14/2018 Essential hypertension Unspecified essential hypertension 10/14/2018 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, unspecified vessel or lesion type 10/14/2018 Elevated lipoprotein(a) Other disorders of lipoid metabolism 10/14/2018 Gastroesophageal reflux disease without esophagitis Esophageal reflux 10/14/2018 Essential hypertension Unspecified essential hypertension 10/14/2018 Mixed hyperlipidemia 10/14/2018 S/P CABG x 3 Postsurgical aortocoronary bypass status 10/14/2018 Uncontrolled type 2 diabetes mellitus with hyperglycemia (HCC) 10/14/2018 Vitamin D deficiency Unspecified vitamin D deficiency 10/14/2018 Dyslipidemia associated with type 2 diabetes mellitus (HCC) Type II or unspecified type diabetes mellitus with other specified manifestations, not stated as uncontrolled 10/21/2018 Elevated lipoprotein(a) Other disorders of lipoid metabolism 10/21/2018 Vitamin D deficiency Unspecified vitamin D deficiency 10/21/2018 Obesity (BMI 30-39.9) Obesity, unspecified 10/21/2018 Obstructive sleep apnea Obstructive sleep apnea (adult) (pediatric) 10/22/2018 Excessive sleepiness Hypersomnia, unspecified 10/22/2018 Primary snoring Other dyspnea and respiratory abnormality 10/22/2018 Obstructive sleep apnea Obstructive sleep apnea (adult) (pediatric) 10/22/2018 Obesity due to excess calories without serious comorbidity, unspecified classification 10/22/2018 UTI (urinary tract infection), uncomplicated Urinary tract infection, site not specified 10/25/2018 Dysuria 10/25/2018 Obesity (BMI 30-39.9) Obesity, unspecified 10/28/2018 Dyslipidemia associated with type 2 diabetes mellitus (HCC) Type II or unspecified type diabetes mellitus with other specified manifestations, not stated as uncontrolled 10/29/2018 Vitamin B12 deficiency Other B-complex deficiencies 10/29/2018 Elevated lipoprotein(a) Other disorders of lipoid metabolism 10/29/2018 Vitamin D deficiency Unspecified vitamin D deficiency 10/29/2018 Obesity (BMI 30-39.9) Obesity, unspecified 11/05/2018 Dietary counseling and surveillance Dietary surveillance and counseling 11/05/2018 Obstructive sleep apnea Obstructive sleep apnea (adult) (pediatric) 11/15/2018 Dyslipidemia associated with type 2 diabetes mellitus (HCC) Type II or unspecified type diabetes mellitus with other specified manifestations, not stated as uncontrolled 11/19/2018 Gastroesophageal reflux disease without esophagitis Esophageal reflux 11/19/2018 Essential hypertension Unspecified essential hypertension 11/19/2018 Mixed hyperlipidemia 11/19/2018 Vitamin B12 deficiency Other B-complex deficiencies 11/19/2018 Vitamin D deficiency Unspecified vitamin D deficiency 11/19/2018 Class 2 severe obesity due to excess calories with serious comorbidity and body mass index (BMI) of 35.0 to 35.9 in adult (HCC) 11/19/2018 Essential hypertension Unspecified essential hypertension 11/21/2018 Obesity (BMI 30-39.9) Obesity, unspecified 11/21/2018 BPH with obstruction/lower urinary tract symptoms Hypertrophy of prostate with urinary obstruction and other lower urinary tract symptoms (LUTS) 11/26/2018 Viral URI with cough Acute upper respiratory infections of unspecified site 11/26/2018 Annual physical exam Routine general medical examination at a health care facility 11/26/2018 Essential hypertension Unspecified essential hypertension 11/26/2018 Mixed hyperlipidemia 11/26/2018 Obesity (BMI 30-39.9) Obesity, unspecified 11/26/2018 Incomplete bladder emptying 11/26/2018 BPH with obstruction/lower urinary tract symptoms Hypertrophy of prostate with urinary obstruction and other lower urinary tract symptoms (LUTS) 11/26/2018 Enlarged prostate Hypertrophy of prostate without urinary obstruction and other lower urinary tract symptoms (LUTS) 11/26/2018 Essential hypertension Unspecified essential hypertension 11/28/2018 Obesity (BMI 30-39.9) Obesity, unspecified 12/03/2018 Dyslipidemia associated with type 2 diabetes mellitus (HCC) Type II or unspecified type diabetes mellitus with other specified manifestations, not stated as uncontrolled 12/09/2018 Uncontrolled type 2 diabetes mellitus with hyperglycemia (HCC) 12/09/2018 Essential hypertension Unspecified essential hypertension 12/09/2018 Mixed hyperlipidemia 12/09/2018 SOB (shortness of breath) Shortness of breath 12/09/2018 Elevated lipoprotein(a) Other disorders of lipoid metabolism 12/09/2018 Vitamin B12 deficiency Other B-complex deficiencies 12/09/2018 Class 2 severe obesity due to excess calories with serious comorbidity and body mass index (BMI) of 35.0 to 35.9 in adult (HCC) 12/09/2018 Vitamin D deficiency Unspecified vitamin D deficiency 12/09/2018 Ischemic heart disease Chronic ischemic heart disease, unspecified 12/10/2018 Chest pain, unspecified type 12/10/2018 Chronic pain syndrome 12/16/2018 Sacroiliitis Sacroiliitis, not elsewhere classified 12/16/2018 Ischemic heart disease Chronic ischemic heart disease, unspecified 12/16/2018 Chest pain, unspecified type 12/16/2018 Essential hypertension Unspecified essential hypertension 12/20/2018 Muscle spasm Spasm of muscle 12/23/2018 Obesity (BMI 30-39.9) Obesity, unspecified 12/26/2018 Obesity (BMI 30-39.9) Obesity, unspecified 01/09/2019 Type 2 diabetes mellitus without complication, unspecified 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 insulin use (HCC) 01/20/2019 Obesity, Class I, BMI 30-34.9 Obesity, unspecified 01/23/2019 Dyslipidemia associated with type 2 diabetes mellitus (HCC) Type II or unspecified type diabetes mellitus with other specified manifestations, not stated as uncontrolled 01/25/2019 Vitamin D deficiency Unspecified vitamin D deficiency 01/25/2019 Vitamin B12 deficiency Other B-complex deficiencies 01/25/2019 Muscle pain Mylagia and myositis, unspecified 01/25/2019 Chronic left shoulder pain Pain in joint, shoulder region 01/25/2019 Flu vaccine need Need for prophylactic vaccination and inoculation against influenza 01/25/2019 Chronic left shoulder pain Pain in joint, shoulder region 01/25/2019 Muscle pain Mylagia and myositis, unspecified 01/25/2019 Essential hypertension Unspecified essential hypertension 01/25/2019 Mixed hyperlipidemia 01/25/2019 Dyslipidemia associated with type 2 diabetes mellitus (HCC) Type II or unspecified type diabetes mellitus with other specified manifestations, not stated as uncontrolled 01/29/2019 Vitamin B12 deficiency Other B-complex deficiencies 01/29/2019 Vitamin D deficiency Unspecified vitamin D deficiency 01/29/2019 Psoriasis of scalp Other psoriasis 02/01/2019 Acute pain of left shoulder 02/01/2019 Uncontrolled type 2 diabetes mellitus with hyperglycemia (HCC) 02/01/2019 Class 2 severe obesity due to excess calories with serious comorbidity and body mass index (BMI) of 35.0 to 35.9 in adult (HCC) 02/01/2019 Bradycardia Other specified cardiac dysrhythmias 02/01/2019 Flu-like symptoms Influenza with other respiratory manifestations 02/01/2019 Essential hypertension Unspecified essential hypertension 02/13/2019 Gastroesophageal reflux disease without esophagitis Esophageal reflux 02/13/2019 Mixed hyperlipidemia 02/13/2019 Ischemic heart disease Chronic ischemic heart disease, unspecified 02/20/2019 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, unspecified vessel or lesion type 02/20/2019 S/P CABG x 3 Postsurgical aortocoronary bypass status 02/20/2019 Dizziness Dizziness and giddiness 02/20/2019 Lightheadedness Dizziness and giddiness 02/20/2019 Other specified hypotension 02/20/2019 BPH with obstruction/lower urinary tract symptoms Hypertrophy of prostate with urinary obstruction and other lower urinary tract symptoms (LUTS) 03/14/2019 Ischemic heart disease Chronic ischemic heart disease, unspecified 03/14/2019 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, unspecified vessel or lesion type 03/14/2019 S/P CABG x 3 Postsurgical aortocoronary bypass status 03/14/2019 Dizziness Dizziness and giddiness 03/14/2019 Muscle spasm Spasm of muscle 03/18/2019 Overactive bladder Hypertonicity of bladder 04/07/2019 Incomplete emptying of bladder Incomplete bladder emptying 04/07/2019 BPH with obstruction/lower urinary tract symptoms Hypertrophy of prostate with urinary obstruction and other lower urinary tract symptoms (LUTS) 04/07/2019 Uncontrolled type 2 diabetes mellitus with hyperglycemia (HCC) 04/07/2019 Abnormality of penis Unspecified disorder of penis 04/07/2019 Dermatitis Contact dermatitis and other eczema, due to unspecified cause 04/09/2019 Ischemic heart disease Chronic ischemic heart disease, unspecified 04/10/2019 S/P CABG x 3 Postsurgical aortocoronary bypass status 04/10/2019 Other specified hypotension 04/10/2019 Dyslipidemia associated with type 2 diabetes mellitus (HCC) Type II or unspecified type diabetes mellitus with other specified manifestations, not stated as uncontrolled 04/16/2019 Vitamin D deficiency Unspecified vitamin D deficiency 04/16/2019 Vitamin B12 deficiency Other B-complex deficiencies 04/16/2019 Screening for colon cancer Special screening for malignant neoplasms, colon 04/18/2019 Screening for cancer of the rectum Screening for malignant neoplasm of the rectum 04/18/2019 Viral URI Acute upper respiratory infections of unspecified site 04/22/2019 Essential hypertension Unspecified essential hypertension 04/22/2019 Gastroesophageal reflux disease without esophagitis Esophageal reflux 04/22/2019 BPH with obstruction/lower urinary tract symptoms Hypertrophy of prostate with urinary obstruction and other lower urinary tract symptoms (LUTS) 05/09/2019 Nocturia 05/09/2019 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 05/09/2019 Incomplete emptying of bladder Incomplete bladder emptying 05/09/2019 Recurrent UTI Urinary tract infection, site not specified 05/09/2019 Uncontrolled type 2 diabetes mellitus with hyperglycemia (HCC) 05/09/2019 Obstructive sleep apnea syndrome Obstructive sleep apnea (adult) (pediatric) 05/09/2019 Diarrhea, unspecified type 05/23/2019 BPH with obstruction/lower urinary tract symptoms Hypertrophy of prostate with urinary obstruction and other lower urinary tract symptoms (LUTS) 06/27/2019 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 Other male erectile dysfunction 06/27/2019 Uncontrolled type 2 diabetes mellitus with hyperglycemia (HCC) 06/27/2019 Muscle spasm Spasm of muscle 07/18/2019 Type 2 diabetes mellitus without complication, without long-term current use of insulin (HCC) 07/29/2019 Uncontrolled type 2 diabetes mellitus with hyperglycemia (HCC) 07/31/2019 Dyslipidemia associated with type 2 diabetes mellitus (HCC) Type II or unspecified type diabetes mellitus with other specified manifestations, not stated as uncontrolled 07/31/2019 Vitamin D deficiency Unspecified vitamin D deficiency 07/31/2019 Vitamin B12 deficiency Other B-complex deficiencies 07/31/2019 Uncontrolled type 2 diabetes mellitus with hyperglycemia (HCC) 08/11/2019 Dyslipidemia associated with type 2 diabetes mellitus (HCC) Type II or unspecified type diabetes mellitus with other specified manifestations, not stated as uncontrolled 08/11/2019 Vitamin D deficiency Unspecified vitamin D deficiency 08/11/2019 Vitamin B12 deficiency Other B-complex deficiencies 08/11/2019 Dyslipidemia associated with type 2 diabetes mellitus (HCC) Type II or unspecified type diabetes mellitus with other specified manifestations, not stated as uncontrolled 08/14/2019 Dyslipidemia associated with type 2 diabetes mellitus (HCC) Type II or unspecified type diabetes mellitus with other specified manifestations, not stated as uncontrolled 08/14/2019 Vitamin B12 deficiency Other B-complex deficiencies 08/14/2019 Vitamin D deficiency Unspecified vitamin D deficiency 08/14/2019 Dyslipidemia associated with type 2 diabetes mellitus (HCC) Type II or unspecified type diabetes mellitus with other specified manifestations, not stated as uncontrolled 08/25/2019 Dyslipidemia associated with type 2 diabetes mellitus (HCC) Type II or unspecified type diabetes mellitus with other specified manifestations, not stated as uncontrolled 08/25/2019 Chronic pain of both shoulders Pain in joint, shoulder region 09/01/2019 Annual physical exam Routine general medical examination at a health care facility 09/01/2019 Encounter for screening for malignant neoplasm of prostate Special screening for malignant neoplasm of prostate 09/01/2019 Bilateral shoulder pain, unspecified chronicity 09/03/2019 BPH with obstruction/lower urinary tract symptoms Hypertrophy of prostate with urinary obstruction and other lower urinary tract symptoms (LUTS) 09/08/2019 BPH with obstruction/lower urinary tract symptoms Hypertrophy of prostate with urinary obstruction and other lower urinary tract symptoms (LUTS) 09/09/2019 BPH with obstruction/lower urinary tract symptoms Hypertrophy of prostate with urinary obstruction and other lower urinary tract symptoms (LUTS) 09/10/2019 BPH with obstruction/lower urinary tract symptoms Hypertrophy of prostate with urinary obstruction and other lower urinary tract symptoms (LUTS) 09/29/2019 Incomplete bladder emptying 09/29/2019 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 09/29/2019 Overactive bladder Hypertonicity of bladder 09/29/2019 History of UTI Personal history of urinary (tract) infection 09/29/2019 Uncontrolled type 2 diabetes mellitus with hyperglycemia (HCC) 09/29/2019 Uncontrolled type 2 diabetes mellitus with hyperglycemia (HCC) 10/10/2019 Vitamin B12 deficiency Other B-complex deficiencies 10/10/2019 Vitamin D deficiency Unspecified vitamin D deficiency 10/10/2019 Dyslipidemia associated with type 2 diabetes mellitus (HCC) Type II or unspecified type diabetes mellitus with other specified manifestations, not stated as uncontrolled 10/10/2019 Uncontrolled type 2 diabetes mellitus with hyperglycemia (HCC) 10/10/2019 Vitamin B12 deficiency Other B-complex deficiencies 10/10/2019 Vitamin D deficiency Unspecified vitamin D deficiency 10/10/2019 Dyslipidemia associated with type 2 diabetes mellitus (HCC) Type II or unspecified type diabetes mellitus with other specified manifestations, not stated as uncontrolled 10/10/2019 Encounter for screening for malignant neoplasm of prostate Special screening for malignant neoplasm of prostate 10/10/2019 Annual physical exam Routine general medical examination at a health care facility 10/10/2019 Type 2 diabetes mellitus without complication, unspecified 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 insulin use (HCC) 10/13/2019 Dyslipidemia associated with type 2 diabetes mellitus (HCC) Type II or unspecified type diabetes mellitus with other specified manifestations, not stated as uncontrolled 10/13/2019 Vitamin B12 deficiency Other B-complex deficiencies 10/13/2019 Type 2 diabetes mellitus without complication, unspecified whether fdc insulin use (HCC) 10/17/2019 BPH with obstruction/lower urinary tract symptoms Hypertrophy of prostate with urinary obstruction and other lower urinary tract symptoms (LUTS) 10/27/2019 Incomplete bladder emptying 10/27/2019 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 10/27/2019 Overactive bladder Hypertonicity of bladder 10/27/2019 Uncontrolled type 2 diabetes mellitus with hyperglycemia (HCC) 10/27/2019 Pre-op examination Preoperative examination, unspecified 10/29/2019 BPH with obstruction/lower urinary tract symptoms Hypertrophy of prostate with urinary obstruction and other lower urinary tract symptoms (LUTS) 10/29/2019 Essential hypertension Unspecified essential hypertension 11/06/2019 S/P CABG x 3 Postsurgical aortocoronary bypass status 11/06/2019 Ischemic heart disease Chronic ischemic heart disease, unspecified 11/06/2019 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, unspecified vessel or lesion type 11/06/2019 Muscle spasm Spasm of muscle 11/10/2019 Pre-op testing Preoperative examination, unspecified 11/16/2019 Encounter for laboratory testing for COVID-19 virus 11/16/2019 BPH with obstruction/lower urinary tract symptoms Hypertrophy of prostate with urinary obstruction and other lower urinary tract symptoms (LUTS) 11/20/2019 BPH with obstruction/lower urinary tract symptoms Hypertrophy of prostate with urinary obstruction and other lower urinary tract symptoms (LUTS) 11/20/2019 Annual physical exam Routine general medical examination at a health care facility 11/28/2019 Type 2 diabetes mellitus without complication, without long-term current use of insulin (HCC) 11/28/2019 Essential hypertension Unspecified essential hypertension 11/28/2019 Sacroiliitis Sacroiliitis, not elsewhere classified 11/28/2019 Class 2 severe obesity due to excess calories with serious comorbidity and body mass index (BMI) of 35.0 to 35.9 in adult (HCC) 11/28/2019 TIA (transient ischemic attack) Unspecified transient cerebral ischemia 12/01/2019 Occlusion of left vertebral artery 12/01/2019 Parotid mass Swelling, mass, or lump in head and neck 12/03/2019 Transient ischemic attack, anterior circulation, acute Unspecified transient cerebral ischemia 12/01/2019 DDD (degenerative disc disease), lumbar Degeneration of lumbar or lumbosacral intervertebral disc 12/06/2019 Encounter for support and coordination of transition of care 12/08/2019 History of TIA (transient ischemic attack) Transient ischemic attack (TIA), and cerebral infarction without residual deficits 12/08/2019 Parotid mass Swelling, mass, or lump in head and neck 12/08/2019 Essential hypertension Unspecified essential hypertension 12/08/2019 Parotid mass Swelling, mass, or lump in head and neck 12/15/2019 Hx of fdc use of blood thinners Encounter for long-term (current) use of anticoagulants 12/15/2019 Urinary frequency 12/15/2019 BPH with obstruction/lower urinary tract symptoms Hypertrophy of prostate with urinary obstruction and other lower urinary tract symptoms (LUTS) 12/15/2019 Incomplete emptying of bladder Incomplete bladder emptying 12/15/2019 Muscle spasm Spasm of muscle 12/17/2019 Pain of toe, unspecified laterality 12/18/2019 Cellulitis of left foot Cellulitis and abscess of foot, except toes 01/01/2020 Uncontrolled type 2 diabetes mellitus with hyperglycemia (HCC) 01/01/2020 Foot cramps Cramp of limb 01/01/2020 Paronychia of great toe of left foot Onychia and paronychia of toe 01/01/2020 Muscle spasm Spasm of muscle 01/02/2020 Pre-op testing Preoperative examination, unspecified 01/09/2020 Encounter for laboratory testing for COVID-19 virus 01/09/2020 Parotid mass Swelling, mass, or lump in head and neck 01/13/2020 Dyslipidemia associated with type 2 diabetes mellitus (HCC) Type II or unspecified type diabetes mellitus with other specified manifestations, not stated as uncontrolled 01/16/2020 Vitamin B12 deficiency Other B-complex deficiencies 01/16/2020 Muscle spasm Spasm of muscle 01/19/2020 Parotid pleomorphic adenoma 01/19/2020 THAI (obstructive sleep apnea) Obstructive sleep apnea (adult) (pediatric) 01/19/2020 Snoring Other dyspnea and respiratory abnormality 01/19/2020 Dyslipidemia associated with type 2 diabetes mellitus (HCC) Type II or unspecified type diabetes mellitus with other specified manifestations, not stated as uncontrolled 01/19/2020 Vitamin D deficiency Unspecified vitamin D deficiency 01/19/2020 Vitamin B12 deficiency Other B-complex deficiencies 01/19/2020 Uncontrolled type 2 diabetes mellitus with hyperglycemia (HCC) 01/29/2020 Paronychia of great toe of left foot Onychia and paronychia of toe 01/29/2020 Cellulitis of left foot Cellulitis and abscess of foot, except toes 01/29/2020 Muscle spasm Spasm of muscle 03/21/2020 Screening for colon cancer Special screening for malignant neoplasms, colon 04/30/2020 Screening for cancer of the rectum Screening for malignant neoplasm of the rectum 04/30/2020 Dyslipidemia associated with type 2 diabetes mellitus (HCC) Type II or unspecified type diabetes mellitus with other specified manifestations, not stated as uncontrolled 05/08/2020 Vitamin D deficiency Unspecified vitamin D deficiency 05/08/2020 Vitamin B12 deficiency Other B-complex deficiencies 05/08/2020 Vitamin B12 deficiency Other B-complex deficiencies 05/09/2020 Dyslipidemia associated with type 2 diabetes mellitus (HCC) Type II or unspecified type diabetes mellitus with other specified manifestations, not stated as uncontrolled 05/13/2020 Vitamin D deficiency Unspecified vitamin D deficiency 05/13/2020 Vitamin B12 deficiency Other B-complex deficiencies 05/13/2020 Seasonal allergic rhinitis, unspecified trigger 06/08/2020 Pre-op examination Preoperative examination, unspecified 06/12/2020 Chronic right shoulder pain Pain in joint, shoulder region 06/12/2020 ED (erectile dysfunction) of non-organic origin Psychosexual dysfunction with inhibited sexual excitement 06/15/2020 Testosterone deficiency Other testicular hypofunction 06/15/2020 Decreased libido 06/15/2020 Uncontrolled type 2 diabetes mellitus with hyperglycemia (HCC) 06/15/2020 Essential hypertension Unspecified essential hypertension 06/15/2020 Encounter for screening for malignant neoplasm of prostate Special screening for malignant neoplasm of prostate 06/15/2020 BPH with urinary obstruction Hypertrophy of prostate with urinary obstruction and other lower urinary tract symptoms (LUTS) 06/15/2020 Encounter for screening for malignant neoplasm of prostate Special screening for malignant neoplasm of prostate 06/16/2020 ED (erectile dysfunction) of non-organic origin Psychosexual dysfunction with inhibited sexual excitement 06/16/2020 Testosterone deficiency Other testicular hypofunction 06/16/2020 Decreased libido 06/16/2020 Uncontrolled type 2 diabetes mellitus with hyperglycemia (HCC) 06/16/2020 Essential hypertension Unspecified essential hypertension 06/16/2020 Ischemic heart disease Chronic ischemic heart disease, unspecified 06/23/2020 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, unspecified vessel or lesion type 06/23/2020 S/P CABG x 3 Postsurgical aortocoronary bypass status 06/23/2020 Ventricular bigeminy Other specified cardiac dysrhythmias 06/23/2020 Other secondary osteoarthritis of right shoulder 07/13/2020 Complete tear of right rotator cuff, unspecified whether traumatic 07/13/2020 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, unspecified vessel or lesion type 07/22/2020 S/P CABG x 3 Postsurgical aortocoronary bypass status 07/22/2020 Encounter for pre-operative cardiovascular clearance Pre-operative cardiovascular examination 07/22/2020 Primary osteoarthritis, right shoulder 07/27/2020 Muscle spasm Spasm of muscle 07/31/2020 Seasonal allergic rhinitis, unspecified trigger 08/31/2020 Muscle spasm Spasm of muscle 08/31/2020 Seasonal allergic rhinitis, unspecified trigger 10/01/2020 Dyslipidemia associated with type 2 diabetes mellitus (HCC) Type II or unspecified type diabetes mellitus with other specified manifestations, not stated as uncontrolled 10/01/2020 Uncontrolled type 2 diabetes mellitus with hyperglycemia (HCC) 10/01/2020 Essential hypertension Unspecified essential hypertension 10/01/2020 Gastroesophageal reflux disease with esophagitis, unspecified whether hemorrhage 10/01/2020 BPH with urinary obstruction Hypertrophy of prostate with urinary obstruction and other lower urinary tract symptoms (LUTS) 10/01/2020 Generalized osteoarthritis of multiple sites Generalized osteoarthrosis, involving multiple sites 10/01/2020 History of TIA (transient ischemic attack) Transient ischemic attack (TIA), and cerebral infarction without residual deficits 10/01/2020 Dyslipidemia associated with type 2 diabetes mellitus (HCC) Type II or unspecified type diabetes mellitus with other specified manifestations, not stated as uncontrolled 10/19/2020 Dyslipidemia associated with type 2 diabetes mellitus (HCC) Type II or unspecified type diabetes mellitus with other specified manifestations, not stated as uncontrolled 10/19/2020 Psoriasis of scalp Other psoriasis 10/27/2020 Ischemic heart disease Chronic ischemic heart disease, unspecified 10/28/2020 S/P CABG x 3 Postsurgical aortocoronary bypass status 10/28/2020 Dyslipidemia associated with type 2 diabetes mellitus (HCC) Type II or unspecified type diabetes mellitus with other specified manifestations, not stated as uncontrolled 11/20/2020 Vitamin D deficiency Unspecified vitamin D deficiency 11/20/2020 Vitamin B12 deficiency Other B-complex deficiencies 11/20/2020 Dyslipidemia associated with type 2 diabetes mellitus (HCC) Type II or unspecified type diabetes mellitus with other specified manifestations, not stated as uncontrolled 11/25/2020 Vitamin D deficiency Unspecified vitamin D deficiency 11/25/2020 Vitamin B12 deficiency Other B-complex deficiencies 11/25/2020 Screening for colon cancer Special screening for malignant neoplasms, colon 11/29/2020 Uncontrolled type 2 diabetes mellitus with hyperglycemia (HCC) 11/29/2020 Dyslipidemia associated with type 2 diabetes mellitus (HCC) Type II or unspecified type diabetes mellitus with other specified manifestations, not stated as uncontrolled 11/29/2020 Essential hypertension Unspecified essential hypertension 11/29/2020 Well adult exam Routine general medical examination at a health care facility 11/29/2020 Chronic right-sided low back pain with right-sided sciatica 12/20/2020 Degenerative disc disease, lumbar Degeneration of lumbar or lumbosacral intervertebral disc 12/20/2020 Right-sided low back pain with bilateral sciatica, unspecified chronicity 12/27/2020 Acute exacerbation of chronic low back pain 12/31/2020 Chronic right-sided low back pain with right-sided sciatica 01/04/2021 Dyslipidemia associated with type 2 diabetes mellitus (HCC) Type II or unspecified type diabetes mellitus with other specified manifestations, not stated as uncontrolled 01/08/2021 History of TIA (transient ischemic attack) Transient ischemic attack (TIA), and cerebral infarction without residual deficits 01/08/2021 Degenerative disc disease, lumbar Degeneration of lumbar or lumbosacral intervertebral disc 01/10/2021 Lumbar radiculopathy Thoracic or lumbosacral neuritis or radiculitis, unspecified 01/10/2021 Acute left otitis media Unspecified otitis media 01/15/2021 Lumbar radiculopathy Thoracic or lumbosacral neuritis or radiculitis, unspecified 01/27/2021 Chronic right-sided low back pain with right-sided sciatica 01/27/2021 Degenerative disc disease, lumbar Degeneration of lumbar or lumbosacral intervertebral disc 01/27/2021 Lumbar radiculopathy Thoracic or lumbosacral neuritis or radiculitis, unspecified 02/08/2021 Muscle spasm Spasm of muscle 02/09/2021 Psoriasis of scalp Other psoriasis 02/10/2021 Lumbar radiculopathy Thoracic or lumbosacral neuritis or radiculitis, unspecified 02/14/2021 Degenerative disc disease, lumbar Degeneration of lumbar or lumbosacral intervertebral disc 02/14/2021 Chronic right-sided low back pain with right-sided sciatica 02/14/2021 Spondylosis of lumbar region without myelopathy or radiculopathy Lumbosacral spondylosis without myelopathy 02/14/2021 Class 2 severe obesity due to excess calories with serious comorbidity and body mass index (BMI) of 35.0 to 35.9 in adult ([facility]) 02/14/2021 Dyslipidemia associated with type 2 diabetes mellitus ([facility]) Type II or unspecified type diabetes mellitus with other specified manifestations, not stated as uncontrolled 02/14/2021 Type 2 diabetes mellitus without complication, unspecified whether fdc insulin use ([facility]) 02/14/2021 Abscess Cellulitis and abscess of unspecified site 02/14/2021 Uncontrolled type 2 diabetes mellitus with hyperglycemia ([facility]) 02/15/2021 Muscle spasm Spasm of muscle 03/09/2021 Dyslipidemia associated with type 2 diabetes mellitus ([facility]) Type II or unspecified type diabetes mellitus with other specified manifestations, not stated as uncontrolled 03/09/2021 Vitamin D deficiency Unspecified vitamin D deficiency 03/09/2021 Vitamin B12 deficiency Other B-complex deficiencies 03/09/2021 Dyslipidemia associated with type 2 diabetes mellitus (HCC) Type II or unspecified type diabetes mellitus with other specified manifestations, not stated as uncontrolled 03/14/2021 Vitamin D deficiency Unspecified vitamin D deficiency 03/14/2021 Vitamin B12 deficiency Other B-complex deficiencies 03/14/2021 Uncontrolled type 2 diabetes mellitus with hyperglycemia ([facility]) 04/01/2021 Muscle spasm Spasm of muscle 04/01/2021 Diabetes mellitus without complication ([facility]) Type II or unspecified type diabetes mellitus without mention of complication, not stated as uncontrolled 04/04/2021 KCS (keratoconjunctivitis sicca) Sicca syndrome 04/04/2021 Floppy eyelid syndrome of both eyes 04/04/2021 Arcus senilis of both corneas 04/04/2021 Combined form of age-related cataract, right eye 04/04/2021 Combined form of age-related cataract, left eye 04/04/2021 Carotid artery insufficiency syndrome Other specified transient cerebral ischemias 04/04/2021 Blurred vision Other specified visual disturbances 04/04/2021 Spondylosis of lumbar region without myelopathy or radiculopathy Lumbosacral spondylosis without myelopathy 04/05/2021 Dizziness and giddiness 04/06/2021 Uncontrolled type 2 diabetes mellitus with hyperglycemia ([facility]) 04/12/2021 Dermatitis Contact dermatitis and other eczema, due to unspecified cause 04/13/2021 Lumbar radiculopathy Thoracic or lumbosacral neuritis or radiculitis, unspecified 04/18/2021 DDD (degenerative disc disease), cervical Degeneration of cervical intervertebral disc 04/18/2021 Degenerative disc disease, lumbar Degeneration of lumbar or lumbosacral intervertebral disc 04/18/2021 Spondylosis of lumbar region without myelopathy or radiculopathy Lumbosacral spondylosis without myelopathy 04/18/2021 Dizziness and giddiness 04/22/2021 Muscle spasm Spasm of muscle 04/29/2021 DDD (degenerative disc disease), cervical Degeneration of cervical intervertebral disc 04/29/2021 Uncontrolled type 2 diabetes mellitus with hyperglycemia (HCC) 05/13/2021 Diarrhea, unspecified type 05/19/2021 Diarrhea, unspecified type 05/20/2021 Cervical spondylolysis Other congenital anomaly of spine 05/22/2021 Cervical spondylosis Cervical spondylosis without myelopathy 05/22/2021 Dyslipidemia associated with type 2 diabetes mellitus (HCC) Type II or unspecified type diabetes mellitus with other specified manifestations, not stated as uncontrolled 05/25/2021 Muscle spasm Spasm of muscle 05/26/2021 Gastroesophageal reflux disease with esophagitis, unspecified whether hemorrhage 05/26/2021 Dyslipidemia associated with type 2 diabetes mellitus (HCC) Type II or unspecified type diabetes mellitus with other specified manifestations, not stated as uncontrolled 05/26/2021 History of TIA (transient ischemic attack) Transient ischemic attack (TIA), and cerebral infarction without residual deficits 05/26/2021 Uncontrolled type 2 diabetes mellitus with hyperglycemia (HCC) 05/26/2021 Psoriasis of scalp Other psoriasis 05/26/2021 Generalized osteoarthritis of multiple sites Generalized osteoarthrosis, involving multiple sites 05/26/2021 Sacroiliitis Sacroiliitis, not elsewhere classified 05/30/2021 Cervical spondylosis Cervical spondylosis without myelopathy 05/30/2021 DDD (degenerative disc disease), cervical Degeneration of cervical intervertebral disc 05/30/2021 Degenerative disc disease, lumbar Degeneration of lumbar or lumbosacral intervertebral disc 05/30/2021 Dyslipidemia associated with type 2 diabetes mellitus (HCC) Type II or unspecified type diabetes mellitus with other specified manifestations, not stated as uncontrolled 06/15/2021 Vitamin D deficiency Unspecified vitamin D deficiency 06/15/2021 Vitamin B12 deficiency Other B-complex deficiencies 06/15/2021 Dyslipidemia associated with type 2 diabetes mellitus (HCC) Type II or unspecified type diabetes mellitus with other specified manifestations, not stated as uncontrolled 06/20/2021 Vitamin D deficiency Unspecified vitamin D deficiency 06/20/2021 Vitamin B12 deficiency Other B-complex deficiencies 06/20/2021 KCS (keratoconjunctivitis sicca) Sicca syndrome 06/23/2021 Diabetes mellitus without complication (HCC) Type II or unspecified type diabetes mellitus without mention of complication, not stated as uncontrolled 06/23/2021 Sacroiliitis Sacroiliitis, not elsewhere classified 06/24/2021 SOB (shortness of breath) Shortness of breath 07/08/2021 Ischemic heart disease Chronic ischemic heart disease, unspecified 07/08/2021 S/P CABG x 3 Postsurgical aortocoronary bypass status 07/08/2021 Heart murmur Undiagnosed cardiac murmurs 07/08/2021 Cervical spondylosis Cervical spondylosis without myelopathy 07/08/2021 Cervical spondylosis Cervical spondylosis without myelopathy 07/12/2021 DDD (degenerative disc disease), cervical Degeneration of cervical intervertebral disc 07/12/2021 Degenerative disc disease, lumbar Degeneration of lumbar or lumbosacral intervertebral disc 07/12/2021 Lumbar radiculopathy Thoracic or lumbosacral neuritis or radiculitis, unspecified 07/12/2021 Screening for colon cancer Special screening for malignant neoplasms, colon 08/01/2021 Screening for cancer of the rectum Screening for malignant neoplasm of the rectum 08/01/2021 Essential hypertension Unspecified essential hypertension 08/10/2021 Dyslipidemia associated with type 2 diabetes mellitus (HCC) Type II or unspecified type diabetes mellitus with other specified manifestations, not stated as uncontrolled 08/16/2021 Right foot pain Pain in limb 08/16/2021 Blister of right foot, initial encounter 08/17/2021 Ulcer of right foot, limited to breakdown of skin (HCC) 08/17/2021 Uncontrolled type 2 diabetes mellitus with hyperglycemia (HCC) 08/17/2021 SOB (shortness of breath) Shortness of breath 08/19/2021 Ischemic heart disease Chronic ischemic heart disease, unspecified 08/19/2021 S/P CABG x 3 Postsurgical aortocoronary bypass status 08/19/2021 Obesity, Class I, BMI 30-34.9 Obesity, unspecified 08/22/2021 Essential hypertension Unspecified essential hypertension 08/22/2021 Dyslipidemia associated with type 2 diabetes mellitus (HCC) Type II or unspecified type diabetes mellitus with other specified manifestations, not stated as uncontrolled 08/22/2021 Gastroesophageal reflux disease with esophagitis, unspecified whether hemorrhage 08/22/2021 Screening for prostate cancer Special screening for malignant neoplasm of prostate 08/22/2021 S/P CABG x 3 Postsurgical aortocoronary bypass status 08/22/2021 Ulcer of right foot with fat layer exposed (HCC) 08/29/2021 Diabetic polyneuropathy associated with type 2 diabetes mellitus (HCC) 08/29/2021 Hammer toe of right foot 08/29/2021 Toe pain, right Pain in limb 08/29/2021 Ulcer of right foot with fat layer exposed (HCC) 08/29/2021 Diabetic polyneuropathy associated with type 2 diabetes mellitus (HCC) 08/29/2021 Cellulitis of toe of left foot Cellulitis and abscess of toe, unspecified 08/29/2021 Hammer toe of right foot 08/29/2021 Toe pain, right Pain in limb 08/29/2021 Metatarsus adductus of right foot 08/29/2021 Essential hypertension Unspecified essential hypertension 09/07/2021 Diabetic polyneuropathy associated with type 2 diabetes mellitus (HCC) 09/08/2021 Hammer toe of right foot 09/08/2021 Metatarsus adductus of both feet 09/08/2021 Bunionette of right foot 09/08/2021 Metatarsus adductus of both feet 09/22/2021 Bunionette of right foot 09/22/2021 Diabetic polyneuropathy associated with type 2 diabetes mellitus (HCC) 09/22/2021 Toe pain, right Pain in limb 09/22/2021 Ulcer of right foot, limited to breakdown of skin (HCC) 09/22/2021 Fall, initial encounter 10/03/2021 Strain of lumbar region, initial encounter 10/03/2021 Thoracic myofascial strain, initial encounter 10/03/2021 Uncontrolled type 2 diabetes mellitus with hyperglycemia (HCC) 10/12/2021 Gastroesophageal reflux disease with esophagitis, unspecified whether hemorrhage 10/12/2021 Bunionette of right foot 10/20/2021 Pain in right foot Pain in limb 10/20/2021 Acute exacerbation of chronic low back pain 11/14/2021 Chronic bilateral low back pain with right-sided sciatica 11/15/2021 Sacroiliitis Sacroiliitis, not elsewhere classified 11/15/2021 Sciatic nerve pain, unspecified laterality 11/18/2021 Screening for colon cancer Special screening for malignant neoplasms, colon 11/22/2021 Sciatica of right side Sciatica 11/22/2021 Lumbar radiculitis Thoracic or lumbosacral neuritis or radiculitis, unspecified 11/22/2021 Uncontrolled type 2 diabetes mellitus with hyperglycemia (HCC) 11/22/2021 Well adult exam Routine general medical examination at a health care facility 11/22/2021 Sciatica of right side Sciatica 11/23/2021 Lumbar radiculitis Thoracic or lumbosacral neuritis or radiculitis, unspecified 11/23/2021 Chronic bilateral low back pain with right-sided sciatica 12/05/2021 Essential hypertension Unspecified essential hypertension 12/06/2021 Dyslipidemia associated with type 2 diabetes mellitus (HCC) Type II or unspecified type diabetes mellitus with other specified manifestations, not stated as uncontrolled 12/07/2021 Generalized osteoarthritis of multiple sites Generalized osteoarthrosis, involving multiple sites 12/07/2021 History of TIA (transient ischemic attack) Transient ischemic attack (TIA), and cerebral infarction without residual deficits 12/07/2021 Sciatica of right side Sciatica 12/07/2021 Lumbar radiculitis Thoracic or lumbosacral neuritis or radiculitis, unspecified 12/07/2021 Chronic bilateral low back pain with right-sided sciatica 12/14/2021 Degenerative disc disease, lumbar Degeneration of lumbar or lumbosacral intervertebral disc 12/14/2021 Lumbar radiculopathy Thoracic or lumbosacral neuritis or radiculitis, unspecified 12/14/2021 Spondylosis of lumbar region without myelopathy or radiculopathy Lumbosacral spondylosis without myelopathy 12/14/2021 Anxiety due to invasive procedure 12/14/2021 Class 2 severe obesity due to excess calories with serious comorbidity and body mass index (BMI) of 35.0 to 35.9 in adult (HCC) 12/14/2021 Sciatica of right side Sciatica 12/19/2021 Lumbar radiculitis Thoracic or lumbosacral neuritis or radiculitis, unspecified 12/19/2021 Essential hypertension Unspecified essential hypertension 12/20/2021 Night sweats Generalized hyperhidrosis 12/20/2021 Uncontrolled type 2 diabetes mellitus with hyperglycemia (HCC) 12/20/2021 Other eczema 12/20/2021 Essential hypertension Unspecified essential hypertension 12/20/2021 Night sweats Generalized hyperhidrosis 12/20/2021 Lumbar radiculitis Thoracic or lumbosacral neuritis or radiculitis, unspecified 12/20/2021 Sciatica of right side Sciatica 12/20/2021 Uncontrolled type 2 diabetes mellitus with hyperglycemia ([facility]) 12/22/2021 Encounter for support and coordination of transition of care 12/27/2021 Neck pain Cervicalgia 01/02/2022 Viral URI Acute upper respiratory infections of unspecified site 01/02/2022 Runny nose Other diseases of nasal cavity and sinuses 01/02/2022 Encounter for long-term (current) use of high-risk medication Encounter for long-term (current) use of other medications 01/03/2022 Chronic bilateral low back pain with right-sided sciatica 01/03/2022 Encounter for long-term (current) use of high-risk medication Encounter for long-term (current) use of other medications 01/03/2022 Lumbar radiculopathy Thoracic or lumbosacral neuritis or radiculitis, unspecified 01/03/2022 Degenerative disc disease, lumbar Degeneration of lumbar or lumbosacral intervertebral disc 01/03/2022 Spondylosis of lumbar region without myelopathy or radiculopathy Lumbosacral spondylosis without myelopathy 01/03/2022 Encounter for support and coordination of transition of care 01/06/2022 Chronic bilateral low back pain with right-sided sciatica 01/17/2022 Dyslipidemia associated with type 2 diabetes mellitus (HCC) Type II or unspecified type diabetes mellitus with other specified manifestations, not stated as uncontrolled 01/19/2022 Gastroesophageal reflux disease with esophagitis, unspecified whether hemorrhage 01/19/2022 Uncontrolled type 2 diabetes mellitus with hyperglycemia (HCC) 01/19/2022 Chronic bilateral low back pain with right-sided sciatica 01/27/2022 Lumbar spondylosis Lumbosacral spondylosis without myelopathy 01/27/2022 Encounter for support and coordination of transition of care 02/03/2022 Chest pain, unspecified type 02/09/2022 Ischemic heart disease Chronic ischemic heart disease, unspecified 02/09/2022 S/P CABG x 3 Postsurgical aortocoronary bypass status 02/09/2022 Angina of effort Other and unspecified angina pectoris 02/09/2022 Chest pain, unspecified type 02/10/2022 SOB (shortness of breath) Shortness of breath 02/10/2022 Essential hypertension Unspecified essential hypertension 02/13/2022 Screening for prostate cancer Special screening for malignant neoplasm of prostate 02/13/2022 Chest pain, unspecified type 02/13/2022 SOB (shortness of breath) Shortness of breath 02/13/2022 Chest pain, unspecified type 02/16/2022 Shortness of breath 02/16/2022 Chest pain, unspecified type 02/16/2022 Shortness of breath 02/16/2022 Dyslipidemia associated with type 2 diabetes mellitus (HCC) Type II or unspecified type diabetes mellitus with other specified manifestations, not stated as uncontrolled 02/16/2022 Chronic bilateral low back pain with right-sided sciatica 03/04/2022 Essential hypertension Unspecified essential hypertension 03/06/2022 Psoriasis of scalp Other psoriasis 03/06/2022 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, unspecified vessel or lesion type 03/07/2022 Mixed hyperlipidemia 03/07/2022 Chest pain, unspecified type 03/07/2022 Ischemic heart disease Chronic ischemic heart disease, unspecified 03/07/2022 S/P CABG x 3 Postsurgical aortocoronary bypass status 03/07/2022 Atherosclerotic heart disease of [place] coronary artery with other forms of angina pectoris 03/20/2022 Fluid retention in legs Edema 03/20/2022 Angina of effort Other and unspecified angina pectoris 03/20/2022 Sacroiliitis Sacroiliitis, not elsewhere classified 03/20/2022 Dyslipidemia associated with type 2 diabetes mellitus (HCC) Type II or unspecified type diabetes mellitus with other specified manifestations, not stated as uncontrolled 03/20/2022 Class 2 severe obesity due to excess calories with serious comorbidity and body mass index (BMI) of 35.0 to 35.9 in adult ([facility]) 03/20/2022 Atherosclerotic heart disease of [place] coronary artery with other forms of angina pectoris 03/20/2022 Fluid retention in legs Edema 03/20/2022 Angina of effort Other and unspecified angina pectoris 03/20/2022 Encounter for support and coordination of transition of care 03/23/2022 Diabetes mellitus without complication ([facility]) Type II or unspecified type diabetes mellitus without mention of complication, not stated as uncontrolled 04/07/2022 Combined form of age-related cataract, left eye 04/07/2022 Combined form of age-related cataract, right eye 04/07/2022 KCS (keratoconjunctivitis sicca) Sicca syndrome 04/07/2022 Refractive error Unspecified disorder of refraction and accommodation 04/07/2022 Neck pain Cervicalgia 04/10/2022 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, unspecified vessel or lesion type 04/11/2022 Mixed hyperlipidemia 04/11/2022 Ischemic heart disease Chronic ischemic heart disease, unspecified 04/11/2022 S/P CABG x 3 Postsurgical aortocoronary bypass status 04/11/2022 Chronic bilateral low back pain with right-sided sciatica 04/20/2022 Lumbar radiculopathy Thoracic or lumbosacral neuritis or radiculitis, unspecified 04/20/2022 Lumbar spondylosis Lumbosacral spondylosis without myelopathy 04/20/2022 Class 2 severe obesity due to excess calories with serious comorbidity and body mass index (BMI) of 35.0 to 35.9 in adult ([facility]) 04/20/2022 Sacroiliitis Sacroiliitis, not elsewhere classified 04/20/2022 Cervical spondylosis Cervical spondylosis without myelopathy 04/20/2022 Injury of left knee, initial encounter 04/26/2022 Acute pain of left knee 04/28/2022 Acute pain of left knee 04/28/2022 Primary osteoarthritis of left knee Primary localized osteoarthrosis, lower leg 04/28/2022 Chronic pain of right knee 05/19/2022 Primary osteoarthritis of left knee Primary localized osteoarthrosis, lower leg 05/19/2022 Chronic pain of right knee 05/19/2022 Osteoarthritis of patellofemoral joints of both knees 05/19/2022 Atherosclerotic heart disease of [place] coronary artery with other forms of angina pectoris 05/26/2022 Fluid retention in legs Edema 05/26/2022 Essential hypertension Unspecified essential hypertension 05/26/2022 Gastroesophageal reflux disease with esophagitis, unspecified whether hemorrhage 05/26/2022 Uncontrolled type 2 diabetes mellitus with hyperglycemia (HCC) 05/26/2022 Dyslipidemia associated with type 2 diabetes mellitus (HCC) Type II or unspecified type diabetes mellitus with other specified manifestations, not stated as uncontrolled 05/26/2022 History of TIA (transient ischemic attack) Transient ischemic attack (TIA), and cerebral infarction without residual deficits 05/26/2022 Chronic bilateral low back pain with right-sided sciatica 05/26/2022 Screening for thyroid disorder 05/26/2022 Screening for prostate cancer Special screening for malignant neoplasm of prostate 05/26/2022 Uncontrolled type 2 diabetes mellitus with hyperglycemia (HCC) 05/27/2022 Dyslipidemia associated with type 2 diabetes mellitus (HCC) Type II or unspecified type diabetes mellitus with other specified manifestations, not stated as uncontrolled 05/27/2022 Screening for thyroid disorder 05/27/2022 Screening for prostate cancer Special screening for malignant neoplasm of prostate 05/27/2022 Lip laceration, initial encounter 06/09/2022 Facial contusion, initial encounter 06/09/2022 Mass of right parotid gland 06/09/2022 Encounter for support and coordination of transition of care 06/21/2022 Mass of right parotid gland 06/22/2022 Neck pain Cervicalgia 07/04/2022 Uncontrolled type 2 diabetes mellitus with hyperglycemia (HCC) 07/13/2022 Uncontrolled type 2 diabetes mellitus with hyperglycemia (HCC) 08/11/2022 Essential hypertension Unspecified essential hypertension 08/11/2022 History of TIA (transient ischemic attack) Transient ischemic attack (TIA), and cerebral infarction without residual deficits 08/11/2022 Acute on chronic systolic congestive heart failure, NYHA class 2 (HCC) 08/11/2022 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, unspecified vessel or lesion type 08/14/2022 Mixed hyperlipidemia 08/14/2022 Ischemic heart disease Chronic ischemic heart disease, unspecified 08/14/2022 S/P CABG x 3 Postsurgical aortocoronary bypass status 08/14/2022 Hematoma of groin, initial encounter 08/14/2022 Other specified complications of surgical and medical care, not elsewhere classified, initial encounter 08/14/2022 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, unspecified vessel or lesion type 08/14/2022 Mixed hyperlipidemia 08/14/2022 Ischemic heart disease Chronic ischemic heart disease, unspecified 08/14/2022 S/P CABG x 3 Postsurgical aortocoronary bypass status 08/14/2022 Other specified complications of surgical and medical care, not elsewhere classified, initial encounter 08/14/2022 Congestive heart failure, unspecified HF chronicity, unspecified heart failure type (HCC) 08/14/2022 Acute right-sided congestive heart failure (HCC) Congestive heart failure, unspecified 08/18/2022 Fluid retention Other fluid overload 08/18/2022 Dyspnea, unspecified type 08/18/2022 Congestive heart failure, unspecified HF chronicity, unspecified heart failure type (HCC) 08/18/2022 Localized enlarged lymph nodes Enlargement of lymph nodes 08/18/2022 Inguinal lymphadenopathy Enlargement of lymph nodes 08/18/2022 Essential hypertension Unspecified essential hypertension 08/18/2022 Acute bronchitis, unspecified organism 08/18/2022 Uncontrolled type 2 diabetes mellitus with hyperglycemia (HCC) 08/25/2022 Acute right-sided congestive heart failure (HCC) Congestive heart failure, unspecified 08/25/2022 Encounter for support and coordination of transition of care 08/30/2022 CHF (congestive heart failure), NYHA class I, acute on chronic, combined (HCC) 08/30/2022 Uncontrolled type 2 diabetes mellitus with hyperglycemia (HCC) 08/30/2022 Encounter for support and coordination of transition of care 09/04/2022 Essential hypertension Unspecified essential hypertension 09/04/2022 CHF (congestive heart failure), NYHA class I, acute on chronic, combined (HCC) 09/04/2022 Groin hematoma, subsequent encounter 09/04/2022 Encounter for support and coordination of transition of care 09/07/2022 Uncontrolled type 2 diabetes mellitus with hyperglycemia (HCC) 09/10/2022 Muscle cramps Cramp of limb 09/22/2022 Encounter for vitamin deficiency screening Screening for other and unspecified endocrine, nutritional, metabolic, and immunity disorders 09/22/2022 Vitamin D deficiency Unspecified vitamin D deficiency 09/22/2022 Mixed hyperlipidemia 09/23/2022 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, unspecified vessel or lesion type 09/23/2022 Ischemic heart disease Chronic ischemic heart disease, unspecified 09/23/2022 S/P CABG x 3 Postsurgical aortocoronary bypass status 09/23/2022 Muscle cramps Cramp of limb 09/23/2022 Encounter for vitamin deficiency screening Screening for other and unspecified endocrine, nutritional, metabolic, and immunity disorders 09/23/2022 Vitamin D deficiency Unspecified vitamin D deficiency 09/23/2022 Dyslipidemia associated with type 2 diabetes mellitus (HCC) Type II or unspecified type diabetes mellitus with other specified manifestations, not stated as uncontrolled 09/27/2022 Uncontrolled type 2 diabetes mellitus with hyperglycemia (HCC) 09/27/2022 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, unspecified vessel or lesion type 09/27/2022 Mixed hyperlipidemia 09/27/2022 Congestive heart failure, unspecified HF chronicity, unspecified heart failure type (HCC) 09/27/2022 S/P CABG x 3 Postsurgical aortocoronary bypass status 09/27/2022 Sore throat Acute pharyngitis 09/28/2022 Runny nose Other diseases of nasal cavity and sinuses 09/28/2022 Uncontrolled type 2 diabetes mellitus with hyperglycemia (HCC) 09/28/2022 Thyroid mass Unspecified disorder of thyroid 10/03/2022 Blurred vision, bilateral Other specified visual disturbances 10/03/2022 Type 2 diabetes mellitus without retinopathy (HCC) Type II or unspecified type diabetes mellitus without mention of complication, not stated as uncontrolled 10/03/2022 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 10/03/2022 Combined forms of age-related cataract of right eye Other and combined forms of senile cataract 10/03/2022 Combined forms of age-related cataract of left eye Other and combined forms of senile cataract 10/03/2022 Cardiomegaly 10/03/2022 Thyroid mass Unspecified disorder of thyroid 10/03/2022 Serum potassium elevated Hyperpotassemia 10/04/2022 Thyroid mass Unspecified disorder of thyroid 10/04/2022 Serum potassium elevated Hyperpotassemia 10/13/2022 Neck pain Cervicalgia 10/17/2022 Uncontrolled type 2 diabetes mellitus with hyperglycemia (HCC) 10/29/2022 Uncontrolled type 2 diabetes mellitus with hyperglycemia (HCC) 11/02/2022 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, unspecified vessel or lesion type 11/08/2022 Mixed hyperlipidemia 11/08/2022 Congestive heart failure, unspecified HF chronicity, unspecified heart failure type (HCC) 11/08/2022 S/P CABG x 3 Postsurgical aortocoronary bypass status 11/08/2022 Age-related nuclear cataract of both eyes Senile nuclear sclerosis 11/27/2022 Cortical age-related cataract of both eyes Cortical senile cataract 11/27/2022 Type 2 diabetes mellitus with both eyes affected by mild nonproliferative retinopathy without macular edema, without long-term current use of insulin (HCC) 11/27/2022 Refractive error Unspecified disorder of refraction and accommodation 11/27/2022 Encounter for support and coordination of transition of care 12/14/2022 Uncontrolled type 2 diabetes mellitus with hyperglycemia (HCC) 12/14/2022 Uncontrolled type 2 diabetes mellitus with hyperglycemia (HCC) 12/25/2022 Neck pain Cervicalgia 12/27/2022 Dyslipidemia associated with type 2 diabetes mellitus (HCC) Type II or unspecified type diabetes mellitus with other specified manifestations, not stated as uncontrolled 12/28/2022 Uncontrolled type 2 diabetes mellitus with hyperglycemia (HCC) 12/30/2022 Neck pain Cervicalgia 01/12/2023 Sore throat Acute pharyngitis 01/12/2023 Runny nose Other diseases of nasal cavity and sinuses 01/12/2023 Uncontrolled type 2 diabetes mellitus with hyperglycemia (HCC) 02/02/2023 Dyslipidemia associated with type 2 diabetes mellitus (HCC) Type II or unspecified type diabetes mellitus with other specified manifestations, not stated as uncontrolled 02/11/2023 History of TIA (transient ischemic attack) Transient ischemic attack (TIA), and cerebral infarction without residual deficits 02/11/2023 Sore throat Acute pharyngitis 02/11/2023 Runny nose Other diseases of nasal cavity and sinuses 02/11/2023 Dyslipidemia associated with type 2 diabetes mellitus (HCC) Type II or unspecified type diabetes mellitus with other specified manifestations, not stated as uncontrolled 02/12/2023 Uncontrolled type 2 diabetes mellitus with hyperglycemia (HCC) 02/12/2023 Pure hypercholesterolemia 02/12/2023 Uncontrolled type 2 diabetes mellitus with hyperglycemia (HCC) 02/14/2023 Dyslipidemia associated with type 2 diabetes mellitus (HCC) Type II or unspecified type diabetes mellitus with other specified manifestations, not stated as uncontrolled 02/19/2023 Uncontrolled type 2 diabetes mellitus with hyperglycemia (HCC) 02/19/2023 Pure hypercholesterolemia 02/19/2023 Degenerative disc disease, lumbar Degeneration of lumbar or lumbosacral intervertebral disc 02/20/2023 Lumbar radiculopathy, chronic Thoracic or lumbosacral neuritis or radiculitis, unspecified 02/20/2023 Generalized osteoarthritis of multiple sites Generalized osteoarthrosis, involving multiple sites 02/20/2023 Type 2 diabetes mellitus with diabetic peripheral angiopathy without gangrene, without long-term current use of insulin (HCC) 02/20/2023 Well adult exam Routine general medical examination at a health care facility 02/20/2023 Uncontrolled type 2 diabetes mellitus with hyperglycemia (HCC) 03/06/2023 Uncontrolled type 2 diabetes mellitus with hyperglycemia (HCC) 03/07/2023 Encounter for support and coordination of transition of care 03/16/2023 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, unspecified vessel or lesion type 03/19/2023 Chest pain, unspecified type 03/19/2023 Sore throat Acute pharyngitis 03/20/2023 Runny nose Other diseases of nasal cavity and sinuses 03/20/2023 Uncontrolled type 2 diabetes mellitus with hyperglycemia (HCC) 03/27/2023 Encounter for support and coordination of transition of care 03/29/2023 Type 2 diabetes mellitus with diabetic peripheral angiopathy without gangrene, without long-term current use of insulin (HCC) 03/29/2023 Encounter for support and coordination of transition of care 03/30/2023 Irritable bowel syndrome with diarrhea Irritable bowel syndrome 04/11/2023 Left lower quadrant abdominal pain 04/11/2023 CHF (congestive heart failure), NYHA class I, acute on chronic, combined (HCC) 04/11/2023 Acute right-sided congestive heart failure (HCC) Congestive heart failure, unspecified 04/11/2023 Type 2 diabetes mellitus with diabetic peripheral angiopathy without gangrene, without long-term current use of insulin (HCC) 04/11/2023 Class 2 severe obesity due to excess calories with serious comorbidity and body mass index (BMI) of 35.0 to 35.9 in adult ([facility]LY [facility]) 04/11/2023 Dyslipidemia associated with type 2 diabetes mellitus (HCC) Type II or unspecified type diabetes mellitus with other specified manifestations, not stated as uncontrolled 04/11/2023 Stage 3 chronic kidney disease, unspecified whether stage 3a or 3b CKD ([facility]) 04/11/2023 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, unspecified vessel or lesion type 04/23/2023 Chest pain, unspecified type 04/23/2023 Gastroesophageal reflux disease with esophagitis, unspecified whether hemorrhage 04/23/2023 Sore throat Acute pharyngitis 04/23/2023 Runny nose Other diseases of nasal cavity and sinuses 04/23/2023 Uncontrolled type 2 diabetes mellitus with hyperglycemia ([facility]) 05/05/2023 Mixed hyperlipidemia 05/13/2023 Congestive heart failure, unspecified HF chronicity, unspecified heart failure type ([facility]) 05/13/2023 Irritable bowel syndrome with diarrhea Irritable bowel syndrome 05/13/2023 Left lower quadrant abdominal pain 05/13/2023 CHF (congestive heart failure), NYHA class I, acute on chronic, combined ([facility]) 05/13/2023 Acute right-sided congestive heart failure (HCC) Congestive heart failure, unspecified 05/13/2023 Type 2 diabetes mellitus with diabetic peripheral angiopathy without gangrene, without long-term current use of insulin ([facility]) 05/13/2023 Class 2 severe obesity due to excess calories with serious comorbidity and body mass index (BMI) of 35.0 to 35.9 in adult ([facility]) 05/13/2023 Dyslipidemia associated with type 2 diabetes mellitus (HCC) Type II or unspecified type diabetes mellitus with other specified manifestations, not stated as uncontrolled 05/13/2023 Uncontrolled type 2 diabetes mellitus with hyperglycemia ([facility]) 05/14/2023 Dyslipidemia associated with type 2 diabetes mellitus (HCC) Type II or unspecified type diabetes mellitus with other specified manifestations, not stated as uncontrolled 05/20/2023 History of TIA (transient ischemic attack) Transient ischemic attack (TIA), and cerebral infarction without residual deficits 05/20/2023 Sore throat Acute pharyngitis 05/25/2023 Runny nose Other diseases of nasal cavity and sinuses 05/25/2023 Stage 3b chronic kidney disease (HCC) 06/04/2023 Stage 3b chronic kidney disease (HCC) 06/04/2023 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) 06/04/2023 HTN (hypertension), benign Essential hypertension, benign 06/04/2023 Edema due to hypervolemia 06/04/2023 Other forms of angina pectoris 06/05/2023 Abscess of buttock Cellulitis and abscess of buttock 06/05/2023 Stage 3b chronic kidney disease (HCC) 06/06/2023 Interscapular pain 06/07/2023 Uncontrolled type 2 diabetes mellitus with hyperglycemia (HCC) 06/09/2023 Uncontrolled type 2 diabetes mellitus with hyperglycemia (HCC) 06/11/2023 Essential hypertension Unspecified essential hypertension 06/11/2023 Weakness of both arms Other musculoskeletal symptoms referable to limbs 06/11/2023 Uncontrolled type 2 diabetes mellitus with hyperglycemia (HCC) 06/11/2023 Sore throat Acute pharyngitis 06/20/2023 Runny nose Other diseases of nasal cavity and sinuses 06/20/2023 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, unspecified vessel or lesion type 06/21/2023 Mixed hyperlipidemia 06/21/2023 Ischemic heart disease Chronic ischemic heart disease, unspecified 06/21/2023 Congestive heart failure, unspecified HF chronicity, unspecified heart failure type ([facility]) 06/21/2023 S/P CABG x 3 Postsurgical aortocoronary bypass status 06/21/2023 Heart murmur Undiagnosed cardiac murmurs 06/21/2023 SOB (shortness of breath) on exertion Shortness of breath 06/21/2023 Mass of right parotid gland 06/21/2023 Thyroid nodule Nontoxic uninodular goiter 06/21/2023 SOB (shortness of breath) on exertion Shortness of breath 06/27/2023 SOB (shortness of breath) on exertion Shortness of breath 06/27/2023 Encounter for support and coordination of transition of care 06/28/2023 Uncontrolled type 2 diabetes mellitus with hyperglycemia (HCC) 06/28/2023 Uncontrolled type 2 diabetes mellitus with hyperglycemia (HCC) 06/29/2023 Acute left-sided low back pain without sciatica 07/10/2023 Screening for colon cancer Special screening for malignant neoplasms, colon 07/16/2023 Essential hypertension Unspecified essential hypertension 07/16/2023 Spondylosis of lumbar region without myelopathy or radiculopathy Lumbosacral spondylosis without myelopathy 07/16/2023 History of TIA (transient ischemic attack) Transient ischemic attack (TIA), and cerebral infarction without residual deficits 07/16/2023 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, unspecified vessel or lesion type 07/18/2023 Mixed hyperlipidemia 07/18/2023 S/P CABG x 3 Postsurgical aortocoronary bypass status 07/18/2023 Congestive heart failure, unspecified HF chronicity, unspecified heart failure type (HCC) 07/18/2023 Gastroesophageal reflux disease with esophagitis, unspecified whether hemorrhage 07/24/2023 Sore throat Acute pharyngitis 08/03/2023 Runny nose Other diseases of nasal cavity and sinuses 08/03/2023 Stage 3b chronic kidney disease (HCC) 08/13/2023 Edema due to hypervolemia 08/13/2023 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) 08/13/2023 HTN (hypertension), benign Essential hypertension, benign 08/13/2023 Uncontrolled type 2 diabetes mellitus with hyperglycemia (HCC) 08/17/2023 Stage 3 chronic kidney disease, unspecified whether stage 3a or 3b CKD (HCC) 08/17/2023 Muscle cramps Cramp of limb 08/17/2023 Uncontrolled type 2 diabetes mellitus with hyperglycemia (HCC) 08/17/2023 Stage 3 chronic kidney disease, unspecified whether stage 3a or 3b CKD (HCC) 08/17/2023 Muscle cramps Cramp of limb 08/17/2023 Stage 3a chronic kidney disease (HCC) 08/17/2023 HTN (hypertension), benign Essential hypertension, benign 08/17/2023 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) 08/17/2023 Uncontrolled type 2 diabetes mellitus with hyperglycemia (HCC) 08/20/2023 Spondylosis of lumbar region without myelopathy or radiculopathy Lumbosacral spondylosis without myelopathy 08/21/2023 Low sodium levels Hyposmolality and/or hyponatremia 08/21/2023 Uncontrolled type 2 diabetes mellitus with hyperglycemia (HCC) 08/22/2023 Uncontrolled type 2 diabetes mellitus with hyperglycemia (HCC) 08/30/2023 Stage 3a chronic kidney disease (HCC) 08/30/2023 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) 08/30/2023 HTN (hypertension), benign Essential hypertension, benign 08/30/2023 Dyslipidemia associated with type 2 diabetes mellitus (HCC) Type II or unspecified type diabetes mellitus with other specified manifestations, not stated as uncontrolled 08/30/2023 History of TIA (transient ischemic attack) Transient ischemic attack (TIA), and cerebral infarction without residual deficits 08/30/2023 Dyslipidemia associated with type 2 diabetes mellitus (HCC) Type II or unspecified type diabetes mellitus with other specified manifestations, not stated as uncontrolled 09/12/2023 Thyroid nodule Nontoxic uninodular goiter 09/17/2023 Sore throat Acute pharyngitis 09/18/2023 Runny nose Other diseases of nasal cavity and sinuses 09/18/2023 DDD (degenerative disc disease), lumbar Degeneration of lumbar or lumbosacral intervertebral disc 09/18/2023 DDD (degenerative disc disease), lumbar Degeneration of lumbar or lumbosacral intervertebral disc 09/18/2023 Lumbar degenerative disc disease Degeneration of lumbar or lumbosacral intervertebral disc 09/18/2023 Chronic low back pain, unspecified back pain laterality, unspecified whether sciatica present 09/18/2023 Lumbar pain Lumbago 09/18/2023 Myofascial pain Mylagia and myositis, unspecified 09/18/2023 Lumbar spondylosis Lumbosacral spondylosis without myelopathy 09/18/2023 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, unspecified vessel or lesion type 09/20/2023 S/P CABG x 3 Postsurgical aortocoronary bypass status 09/20/2023 SOB (shortness of breath) Shortness of breath 09/20/2023 Chest pain, unspecified type 09/20/2023 Dyslipidemia associated with type 2 diabetes mellitus (HCC) Type II or unspecified type diabetes mellitus with other specified manifestations, not stated as uncontrolled 09/20/2023 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, unspecified vessel or lesion type 09/20/2023 Uncontrolled type 2 diabetes mellitus with hyperglycemia (HCC) 09/20/2023 Ventricular bigeminy Other specified cardiac dysrhythmias 09/20/2023 S/P CABG x 3 Postsurgical aortocoronary bypass status 09/20/2023 SOB (shortness of breath) Shortness of breath 09/20/2023 Occlusion of left vertebral artery 09/20/2023 Ischemic heart disease Chronic ischemic heart disease, unspecified 09/20/2023 Pure hypercholesterolemia 09/20/2023 Other specified hypotension 09/20/2023 CHF (congestive heart failure), NYHA class I, acute on chronic, combined ([facility]) 09/20/2023 Uncontrolled type 2 diabetes mellitus with hyperglycemia ([facility]) 09/23/2023 Dyslipidemia associated with type 2 diabetes mellitus ([facility]) Type II or unspecified type diabetes mellitus with other specified manifestations, not stated as uncontrolled 09/29/2023 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, unspecified vessel or lesion type 09/29/2023 S/P CABG x 3 Postsurgical aortocoronary bypass status 09/29/2023 SOB (shortness of breath) Shortness of breath 09/29/2023 Chest pain, unspecified type 09/29/2023 Abnormal stress test Other nonspecific abnormal cardiovascular system function study 10/01/2023 Other forms of angina pectoris 10/01/2023 SOB (shortness of breath) Shortness of breath 10/01/2023 ASHD (arteriosclerotic heart disease) Coronary atherosclerosis of unspecified type of vessel, [place] or graft 10/01/2023 Other forms of angina pectoris 10/01/2023 SOB (shortness of breath) Shortness of breath 10/01/2023 ASHD (arteriosclerotic heart disease) Coronary atherosclerosis of unspecified type of vessel, [place] or graft 10/01/2023 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, unspecified vessel or lesion type 10/17/2023 Other forms of angina pectoris 10/17/2023 Sore throat Acute pharyngitis 10/23/2023 Runny nose Other diseases of nasal cavity and sinuses 10/23/2023 Uncontrolled type 2 diabetes mellitus with hyperglycemia ([facility]) 10/24/2023 Gastroesophageal reflux disease with esophagitis, unspecified whether hemorrhage 10/27/2023 Coronary artery disease due to calcified coronary lesion 10/31/2023 Abnormal coronary angiogram Other nonspecific abnormal cardiovascular system function study 10/31/2023 Coronary artery disease due to calcified coronary lesion 10/31/2023 Abnormal coronary angiogram Other nonspecific abnormal cardiovascular system function study 10/31/2023 Uncontrolled type 2 diabetes mellitus with hyperglycemia (HCC) 10/31/2023 Sore throat Acute pharyngitis 11/02/2023 Runny nose Other diseases of nasal cavity and sinuses 11/02/2023 ASHD (arteriosclerotic heart disease) Coronary atherosclerosis of unspecified type of vessel, [place] or graft 11/06/2023 Dyslipidemia associated with type 2 diabetes mellitus (HCC) Type II or unspecified type diabetes mellitus with other specified manifestations, not stated as uncontrolled 11/06/2023 Ischemic heart disease Chronic ischemic heart disease, unspecified 11/06/2023 S/P CABG x 3 Postsurgical aortocoronary bypass status 11/06/2023 Uncontrolled type 2 diabetes mellitus with hyperglycemia (HCC) 11/19/2023 Dyslipidemia associated with type 2 diabetes mellitus (HCC) Type II or unspecified type diabetes mellitus with other specified manifestations, not stated as uncontrolled 11/24/2023 History of TIA (transient ischemic attack) Transient ischemic attack (TIA), and cerebral infarction without residual deficits 11/24/2023 Numbness and tingling of left arm and leg Disturbance of skin sensation 11/28/2023 Numbness and tingling of right arm and leg Disturbance of skin sensation 11/28/2023 Generalized osteoarthritis of multiple sites Generalized osteoarthrosis, involving multiple sites 11/28/2023 Dyslipidemia associated with type 2 diabetes mellitus (HCC) Type II or unspecified type diabetes mellitus with other specified manifestations, not stated as uncontrolled 11/28/2023 History of TIA (transient ischemic attack) Transient ischemic attack (TIA), and cerebral infarction without residual deficits 11/28/2023 Uncontrolled type 2 diabetes mellitus with hyperglycemia (HCC) 11/28/2023 CHF (congestive heart failure), NYHA class I, acute on chronic, combined (HCC) 11/28/2023 Numbness and tingling of left arm and leg Disturbance of skin sensation 11/28/2023 Numbness and tingling of right arm and leg Disturbance of skin sensation 11/28/2023 Generalized osteoarthritis of multiple sites Generalized osteoarthrosis, involving multiple sites 11/28/2023 Sore throat Acute pharyngitis 12/03/2023 Runny nose Other diseases of nasal cavity and sinuses 12/03/2023 Uncontrolled type 2 diabetes mellitus with hyperglycemia (HCC) 12/09/2023 Gastroesophageal reflux disease with esophagitis, unspecified whether hemorrhage 12/09/2023 Dyslipidemia associated with type 2 diabetes mellitus ([facility]) Type II or unspecified type diabetes mellitus with other specified manifestations, not stated as uncontrolled 12/10/2023 CHF (congestive heart failure), NYHA class I, acute on chronic, combined (HCC) 12/11/2023 Uncontrolled type 2 diabetes mellitus with hyperglycemia (HCC) 12/11/2023 CHF (congestive heart failure), NYHA class I, acute on chronic, combined (HCC) 12/11/2023 Uncontrolled type 2 diabetes mellitus with hyperglycemia (HCC) 12/11/2023 Gastroesophageal reflux disease with esophagitis, unspecified whether hemorrhage 12/11/2023 CHF (congestive heart failure), NYHA class I, acute on chronic, combined ([facility]) 12/11/2023 Uncontrolled type 2 diabetes mellitus with hyperglycemia ([facility]) 12/12/2023 Gastroesophageal reflux disease with esophagitis, unspecified whether hemorrhage 12/12/2023 CHF (congestive heart failure), NYHA class I, acute on chronic, combined ([facility]) 12/12/2023 Uncontrolled type 2 diabetes mellitus with hyperglycemia ([facility]) 12/19/2023 Stage 3 chronic kidney disease, unspecified whether stage 3a or 3b CKD ([facility]) 12/19/2023 Numbness and tingling of left arm and leg Disturbance of skin sensation 12/24/2023 Numbness and tingling of right arm and leg Disturbance of skin sensation 12/24/2023 Generalized osteoarthritis of multiple sites Generalized osteoarthrosis, involving multiple sites 12/24/2023 Peripheral polyneuropathy Unspecified hereditary and idiopathic peripheral neuropathy 12/24/2023 Left carpal tunnel syndrome Carpal tunnel syndrome 12/24/2023 Acute on chronic systolic congestive heart failure (HCC) Acute on chronic systolic heart failure 12/31/2023 Stage 3a chronic kidney disease ([facility]) 01/01/2024 Vitamin D deficiency Unspecified vitamin D deficiency 01/01/2024 CHF (congestive heart failure), NYHA class I, acute on chronic, combined ([facility]) 12/31/2023 Uncontrolled type 2 diabetes mellitus with hyperglycemia ([facility]) 01/04/2024 CHF (congestive heart failure), NYHA class I, acute on chronic, combined ([facility]) 01/04/2024 Acute on chronic systolic congestive heart failure (HCC) Acute on chronic systolic heart failure 01/04/2024 Stage 3 chronic kidney disease, unspecified whether stage 3a or 3b CKD (HCC) 01/04/2024 Stage 3a chronic kidney disease (HCC) 01/04/2024 Chronic kidney disease-mineral and bone disorder 01/04/2024 Uncontrolled type 2 diabetes mellitus with hyperglycemia (HCC) 01/08/2024 CHF (congestive heart failure), NYHA class I, acute on chronic, combined ([facility]) 01/08/2024 Seasonal allergic rhinitis due to pollen 01/14/2024 CHF (congestive heart failure), NYHA class I, acute on chronic, combined (HCC) 01/14/2024 Acute bronchitis, unspecified organism 01/14/2024 Uncontrolled type 2 diabetes mellitus with hyperglycemia ([facility]) 01/14/2024 CHF (congestive heart failure), NYHA class I, acute on chronic, combined ([facility]) 01/14/2024 CHF (congestive heart failure), NYHA class I, acute on chronic, combined ([facility]) 01/31/2024 CHF (congestive heart failure), NYHA class I, acute on chronic, combined ([facility]) 02/01/2024 CHF (congestive heart failure), NYHA class I, acute on chronic, combined ([facility]) 02/11/2024 Fluid retention in legs Edema 02/13/2024 CHF (congestive heart failure), NYHA class I, acute on chronic, combined (HCC) 02/13/2024 Acute on chronic systolic congestive heart failure (HCC) Acute on chronic systolic heart failure 02/13/2024 Fluid retention in legs Edema 02/13/2024 CHF (congestive heart failure), NYHA class I, acute on chronic, combined (HCC) 02/13/2024 Acute on chronic systolic congestive heart failure (HCC) Acute on chronic systolic heart failure 02/13/2024 Well adult exam Routine general medical examination at a health care facility 02/13/2024 Uncontrolled type 2 diabetes mellitus with hyperglycemia (HCC) 02/13/2024 CHF (congestive heart failure), NYHA class I, acute on chronic, combined ([facility]) 02/13/2024 Psoriasis of scalp Other psoriasis 03/01/2024 Uncontrolled type 2 diabetes mellitus with hyperglycemia (HCC) 03/17/2024 CHF (congestive heart failure), NYHA class I, acute on chronic, combined ([facility]) 03/17/2024 Enrolled in chronic care management 03/17/2024 CHF (congestive heart failure), NYHA class I, acute on chronic, combined ([facility]) 04/06/2024 Uncontrolled type 2 diabetes mellitus with hyperglycemia ([facility]) 04/06/2024 Acute on chronic systolic congestive heart failure ([facility]) Acute on chronic systolic heart failure 04/08/2024 Class 2 severe obesity due to excess calories with serious comorbidity and body mass index (BMI) of 35.0 to 35.9 in adult ([facility]) 04/08/2024 Stage 3b chronic kidney disease ([facility]) 04/08/2024 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, unspecified 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 insulin use ([facility]) 04/08/2024 Tinea corporis Dermatophytosis of the body 04/08/2024 Psoriasis of scalp Other psoriasis 05/01/2024 Uncontrolled type 2 diabetes mellitus with hyperglycemia ([facility]) 05/05/2024 CHF (congestive heart failure), NYHA class I, acute on chronic, combined ([facility]) 05/05/2024 Enrolled in chronic care management 05/05/2024 ASHD (arteriosclerotic heart disease) Coronary atherosclerosis of unspecified type of vessel, kiowa tribe or graft 05/06/2024 Dyslipidemia associated with type 2 diabetes mellitus ([facility]) Type II or unspecified type diabetes mellitus with other specified manifestations, not stated as uncontrolled 05/06/2024 S/P CABG x 3 Postsurgical aortocoronary bypass status 05/06/2024 Psoriasis of scalp Other psoriasis 05/16/2024 Uncontrolled type 2 diabetes mellitus with hyperglycemia ([facility]) 05/20/2024 Pure hypercholesterolemia 05/20/2024 Seasonal allergic rhinitis due to pollen 05/20/2024 Acute bronchitis, unspecified organism 05/20/2024 Facial rash 05/20/2024 Uncontrolled type 2 diabetes mellitus with hyperglycemia ([facility]) 05/28/2024 CHF (congestive heart failure), NYHA class I, acute on chronic, combined ([facility]) 05/28/2024 Enrolled in chronic care management 05/28/2024 Uncontrolled type 2 diabetes mellitus with hyperglycemia ([facility]) 06/05/2024 CHF (congestive heart failure), NYHA class I, acute on chronic, combined ([facility]) 06/05/2024 Enrolled in chronic care management 06/05/2024 Sore throat Acute pharyngitis 06/11/2024 Runny nose Other diseases of nasal cavity and sinuses 06/11/2024 Acute bacterial sinusitis Acute sinusitis, unspecified 06/16/2024 Essential hypertension Unspecified essential hypertension 06/25/2024 Uncontrolled type 2 diabetes mellitus with hyperglycemia (HCC) 06/26/2024 Gastroesophageal reflux disease with esophagitis, unspecified whether hemorrhage 07/02/2024 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, unspecified vessel or lesion type 07/05/2024 Chest pain, unspecified type 07/05/2024 Uncontrolled type 2 diabetes mellitus with hyperglycemia (HCC) 07/07/2024 CHF (congestive heart failure), NYHA class I, acute on chronic, combined (HCC) 07/07/2024 Enrolled in chronic care management 07/07/2024 Uncontrolled type 2 diabetes mellitus with hyperglycemia (HCC) 07/08/2024 Stage 3a chronic kidney disease (HCC) 07/18/2024 Vitamin D deficiency Unspecified vitamin D deficiency 07/18/2024 Chronic kidney disease-mineral and bone disorder 07/18/2024 Stage 3a chronic kidney disease (HCC) 07/18/2024 Chronic kidney disease-mineral and bone disorder 07/18/2024 HTN (hypertension), benign Essential hypertension, benign 07/18/2024 Uncontrolled type 2 diabetes mellitus with hyperglycemia (HCC) 07/24/2024 CHF (congestive heart failure), NYHA class I, acute on chronic, combined (HCC) 07/24/2024 Enrolled in chronic care management 07/24/2024 Screening for cancer of the rectum Screening for malignant neoplasm of the rectum 08/27/2024 Screen for colon cancer Special screening for malignant neoplasms, colon 08/27/2024 Uncontrolled type 2 diabetes mellitus with hyperglycemia (HCC) 09/02/2024 CHF (congestive heart failure), NYHA class I, acute on chronic, combined (HCC) 09/02/2024 Enrolled in chronic care management 09/02/2024 Vitamin D deficiency Unspecified vitamin D deficiency 09/02/2024 Sore throat Acute pharyngitis 09/18/2024 Runny nose Other diseases of nasal cavity and sinuses 09/18/2024 DM (diabetes mellitus), type 2, uncontrolled Type II or unspecified type diabetes mellitus without mention of complication, uncontrolled 08/23/2013 HTN (hypertension) Unspecified essential hypertension 08/23/2013 Hyperlipidemia Other and unspecified hyperlipidemia 08/23/2013 Ischemic heart disease Chronic ischemic heart disease, unspecified 08/23/2013 GERD (gastroesophageal reflux disease) Esophageal reflux 08/23/2013 Chest pain Chest pain, unspecified 08/23/2013 CAD (coronary artery disease) Coronary atherosclerosis of unspecified type of vessel, kiowa tribe or graft 08/23/2013 S/P CABG x 3 Postsurgical aortocoronary bypass status 08/23/2013 Postoperative anemia due to acute blood loss Acute posthemorrhagic anemia 08/23/2013 Controlled type 2 diabetes mellitus without complication ([facility]) 09/20/2017 HTN (hypertension) Unspecified essential hypertension 09/20/2017 Hyperlipidemia Other and unspecified hyperlipidemia 09/20/2017 GERD (gastroesophageal reflux disease) Esophageal reflux 09/20/2017 S/P CABG x 3 Postsurgical aortocoronary bypass status 09/20/2017 Ischemic heart disease Chronic ischemic heart disease, unspecified 09/20/2017 CAD (coronary artery disease) Coronary atherosclerosis of unspecified type of vessel, kiowa tribe or graft 09/20/2017 Acute pyelonephritis Acute pyelonephritis without lesion of renal medullary necrosis 09/20/2017 Elevated troponin Other abnormal blood chemistry 09/20/2017 SOB (shortness of breath) Shortness of breath 09/20/2017 Dysuria 09/20/2017 Benign prostatic hyperplasia with urinary frequency 09/20/2017 Acute prostatitis 09/20/2017 Yeast dermatitis of penis Candidiasis of other urogenital sites 09/20/2017 Esophageal dysphagia Dysphagia, pharyngoesophageal phase 07/17/2018 OAB (overactive bladder) Hypertonicity of bladder 11/20/2019 Nocturia 11/20/2019 Incomplete emptying of bladder Incomplete bladder emptying 11/20/2019 RUE weakness Other musculoskeletal symptoms referable to limbs 12/01/2019 BPH with obstruction/lower urinary tract symptoms Hypertrophy of prostate with urinary obstruction and other lower urinary tract symptoms (LUTS) 12/01/2019 Dyslipidemia associated with type 2 diabetes mellitus (HCC) Type II or unspecified type diabetes mellitus with other specified manifestations, not stated as uncontrolled 12/01/2019 Class 2 severe obesity due to excess calories with serious comorbidity and body mass index (BMI) of 35.0 to 35.9 in adult (HCC) 12/01/2019 CAD (coronary artery disease) Coronary atherosclerosis of unspecified type of vessel, kiowa tribe or graft 12/01/2019 Uncontrolled type 2 diabetes mellitus with hyperglycemia (HCC) 12/01/2019 S/P CABG x 3 Postsurgical aortocoronary bypass status 12/01/2019 Hyperlipidemia Other and unspecified hyperlipidemia 12/01/2019 Occlusion of left vertebral artery 12/01/2019 Transient ischemic attack, anterior circulation, acute Unspecified transient cerebral ischemia 12/01/2019 Intracranial atherosclerosis Cerebral atherosclerosis 12/01/2019 Mass of right parotid gland 12/01/2019 Status post angioplasty with stent Postsurgical percutaneous transluminal coronary angioplasty status 02/16/2022 Acute right-sided congestive heart failure (HCC) Congestive heart failure, unspecified 08/18/2022 CHF (congestive heart failure), NYHA class I, acute on chronic, combined (HCC) 08/18/2022 Uncontrolled type 2 diabetes mellitus with hyperglycemia (HCC) 08/18/2022 S/P CABG x 3 Postsurgical aortocoronary bypass status 08/18/2022 Obstructive sleep apnea syndrome Obstructive sleep apnea (adult) (pediatric) 08/18/2022 Hyperlipidemia Other and unspecified hyperlipidemia 08/18/2022 GERD (gastroesophageal reflux disease) Esophageal reflux 08/18/2022 BPH with obstruction/lower urinary tract symptoms Hypertrophy of prostate with urinary obstruction and other lower urinary tract symptoms (LUTS) 08/18/2022 Right groin mass Abdominal or pelvic swelling, mass, or lump, right lower quadrant 08/18/2022 Infected hematoma 08/18/2022 S/P angioplasty with stent Postsurgical percutaneous transluminal coronary angioplasty status 10/31/2023 Acute on chronic systolic congestive heart failure (HCC) Acute on chronic systolic heart failure 12/31/2023 Congestive heart failure of unknown etiology (HCC) 12/31/2023 Acute on chronic systolic heart failure (HCC) Acute on chronic systolic heart failure 12/31/2023 Dyslipidemia associated with type 2 diabetes mellitus (HCC) Type II or unspecified type diabetes mellitus with other specified manifestations, not stated as uncontrolled 12/31/2023 Uncontrolled type 2 diabetes mellitus with hyperglycemia (HCC) 12/31/2023 Hyperlipidemia Other and unspecified hyperlipidemia 12/31/2023 GERD (gastroesophageal reflux disease) Esophageal reflux 12/31/2023 CAD (coronary artery disease) Coronary atherosclerosis of unspecified type of vessel, kiowa tribe or graft 12/31/2023 Goals Goal Patient Goal Type Associated Problems [...] 2:26 PM EDT) No Carlee Rose CMA Care Teams Scout Sniper Relationship Specialty Start Date End Date Carlos A Gross DO [address] [place] [phone] PCP - General Family Medicine 06/15/20 Sapphire Munguia MD [address] [place] [id number] Internal Medicine-Cardiovascular Disease 04/11/22
--- OUTSIDE RECORDS SUMMARY | 2024-09-18 10:53 | XMS_ITS | Encounter Summary ---
Author Organization [place] [address] Care Team Providers Care Missile Mechanic Name Role Phone Renato Rey DO, Viral Primary Care Provider [phone] Ariana Munguia MD Unavailable [phone] Allison Angel RN Unavailable Unavailable Reason for Visit * Reason Onset Date Comments Other 06/05/2024 med Encounter Details Date Type Department Care Team (Late st Contact Info) Description 06/05/2024 Telephone [facility] [address] [place] [address] Carlos A Gross DO [address] [place] [address] Other (med ) Social History Tobacco Use Types Packs/Day Years Used Date Smoking Tobacco: Never Smokeless Tobacco: Never Alcohol Use Standard Drinks/Week Comments No 0 (1 standard drink = 0.6 oz pur e alcohol) NO [facility] Utilities Answer Date Recorded In the past 12 months has [employer] electric, gas, oil, or water company threatened to shut off services in your home? No 01/01/2024 Overall Financial Resource Strain (CARDIA) Answe r Date Recorded How hard is it for you to pa y for the very basics like food, housing, medical care, and heating? Not very hard 01/01/2024 PHQ-2 Answer Date Recorded PHQ-2 Total Score 0 01/01/2024 [facility] [place] of Occupat ional Health - Occupational Stress Questionnaire Answer Date Recorded Do you feel stress - tense, restless, nervous, or anxious, or unable to sleep at night because your mind is troubled all the time - these days? Only a little 01/01/2024 Exercise Vital Sign Answer Date Recorde d On average, how many days pe r week do you engage in moderate to strenuous exercise (like a brisk walk)? 0 days 01/01/2024 On average, how many minutes do you engage in exercise at this level? 0 min 01/01/2024 Hunger Vital Sign Answer Date Recorded Within the past 12 months, y ou worried that your food would run out before you got the money to buy more. Never true 01/01/20 24 Within the past 12 months, t he food you bought just didn't last and you didn't have money to get more. Never true 01/01/2024 PRAPARE - Transportation Answer Date Re corded In the past 12 months, has l ack of transportation kept you from medical appointments or from getting medications? No 08/10 In the past 12 months, has l ack of transportation kept you from meetings, work, or from getting things needed for daily living? No 08/[facility]2022 [facility] IP Transportation Answer D ate Recorded [...] PM Anne RMA documented in this encounter Miscellaneous Notes * Telephone Encounter - Allison Angel RN - 06/05/2024 2:32 PM EDT noted * Telephone Encounter - Marleen Daly - 06/05/2024 12:15 PM EDT Select the most appropriate reason for this telephone message: Other Who is calling (name & relationship to patient if not the patient): Patient What is needed OR why are they calling: pt called stated can not picker / packer med today from office , ptstated will be there tomorrow to get med When is this needed by: today Where does this information need to go: nurse Return Method of Communication: N/A Additional information: FYI documented in this encounter Plan of Treatment Upcoming Encounters Date Type Department Care Team (Late st Contact Info) Description 11/18/2024 10:45 AM EDT Office Visit [facility] [address] [address] Ariana Munguia MD [address] [place] [address] 01/02/2025 10:45 AM EDT Office Visit [facility] [address] [place], [place] [address] Abel Hernandez MD [address] [id number] documented as of this encounter Goals Goal [...] documented as of this encounter Care Teams Missile Mechanic Relationship Specialty Start Date End Date Carlos A Gross DO [address] [place] [phone] PCP - General Family Medicine 06/15/20 Ariana Munguia MD [address] [place] [id number] Internal Medicine-Cardiovascular Disease 04/11/22 Allison Angel, JAMISON Consultant Education Registered Nurse 11/28/23 09/01/24 documented as of this encounter
--- OUTSIDE RECORDS SUMMARY | 2024-09-18 10:53 | XMS_ITS | Encounter Summary ---
Author Organization [place] [address] Care Team Providers Care Line Server Name Role Phone Renato Rey DO, Viral Primary Care Provider [phone] Ariana Munguia MD Unavailable [phone] Allison Angel RN Unavailable Unavailable Reason for Visit * Reason Onset Date Comments Medication Management 08/08/2024 pt needing med from office Encounter Details Date Type Department Care Team (Late st Contact Info) Description 08/08/2024 Telephone [facility] [address] [place] [address] Carlos A Gross V, [address] [place] [address] Medication Management (pt needing med from office) Social History Tobacco Use Types Packs/Day Years Used Date Smoking Tobacco: Never Smokeless Tobacco: Never Alcohol Use Standard Drinks/Week Comments No 0 (1 standard drink = 0.6 oz pur e alcohol) NO [facility] Utilities Answer Date Recorded In [...] Date Recorded PHQ-2 Total Score 0 01/01/2024 [employer] [place] of Occupat ional Health - Occupational Stress [...] things needed for daily living? No 07/24/[address] [facility] IP Transportation Answer D ate Recorded In [...] Telephone Encounter - Allison Angel RN - 08/08/2024 2:25 PM EDT Patient reports he has 2 pens left. Advised Office Calibration Technician (OCC) will call when shipment arrives. * Telephone Encounter - Toshia Castellano - 08/08/2024 12:36 PM EDT Select the most appropriate reason for this telephone message: Medication Management/Problem Who is calling? Patient What medication(s) do you have concerns about: Disp Refills Start End insulin glargine (LANTUS SOLOSTAR U-100 INSULIN) 100 unit/mL (3 mL) SubQ Insulin Pen -- -- 12/19/2023 -- Sig - Route: Subcutaneous (Inject under the skin) 15 Units nightly. - Subcutaneous Prescribing provider: Renato What are your concerns/request: Pt stated he gets this med from the office so would like to know when they have it ready for him Desired outcome: Other picking machine operator helper med at office Last appointment date: 06/16/24 Pharmacy: NA Return Method of Communication: Phone Call Additional Information: N/A documented in this encounter Plan of Treatment Upcoming Encounters Date Type Department Care Team (Late st Contact Info) Description 11/18/2024 10:45 AM EDT Office Visit [facility] [address] [place] [address] Ariana Munguia MD [address] [place] [address] 01/02/2025 10:45 AM EDT Office Visit [facility] [address] [place] [address] Abel Hernandez MD [address] [place] [address] documented as of this encounter Goals Goal [...] documented as of this encounter Care Teams Line Server Relationship Specialty Start Date End Date Carlos A Gross DO [address] [place] [address] PCP - General Family Medicine 06/15/20 Ariana Munguia MD [address] [place] [address] Internal Medicine-Cardiovascular Disease 04/11/22 Allison Angel, RN Calibration Technician Registered Nurse 11/28/23 09/01/24 documented as of this encounter
--- OUTSIDE RECORDS SUMMARY | 2024-09-18 10:53 | XMS_ITS | Clinical Summary ---
Author Organization [facility] Address [address] [place], [place] [address] Care Team Providers Care Shopping Centre Manager Name Role Phone Carlos A Gross DO Primary Care Provider [phone] Allergies Active Allergy Reactions Criticality Noted Date Comments Clindamycin Rash 06/11/2023 Insulin Aspart Other (See Comments) High 12/01/2019 Hypersensitivity; and Photosensitivity. Per pt Empagliflozin Other (See Comments) High 01/02/2022 Got a blood infection Milk Containing Products (Dairy) Other (See Comments),Shortness Of Breath 09/25/2013 Can have butter (had issue with not able to get green beans, chicken noodle soup, but able to have) Naproxen Other (See Comments) 06/11/2023 Medications aspirin 81 mg Tablet, Delayed Release (E.C.) Take 1 Tablet by mouth daily. Active carvediloL (COREG) 6.25 mg Tablet Active Cholecalciferol , Vitamin D3, 125 mcg (5,000 unit) Tablet Take 1 Tablet by mouth daily. Active clopidogreL (PLAVIX) 75 mg tablet Take 1 Tablet by mouth daily. 4 Active dapagliflozin propanediol (Farxiga) 10 mg Tablet tablet Take 1 Tablet by mouth daily. Active furosemide (LASIX) 20 mg tablet 4 Active glimepiride (AMARYL) 4 mg tablet TAKE 1 TABLET BY MOUTH TWICE DAILY BEFORE MEAL(S) 4 Active ibuprofen (MOTRIN) 800 mg tablet Take 800 mg by mouth every 8 hours as needed. 4 Active Insulin Glargine (Lantus Solostar U-100 Insulin) 100 unit/mL (3 mL) Solostar INPN 15 Units by Subcutaneous route. 4 Active isosorbide mononitrate (IMDUR) 60 mg CR tablet TAKE 1 TABLET BY MOUTH ONCE DAILY IN THE MORNING Active lisinopriL (ZESTRIL) 5 mg tablet Take 1 Tablet by mouth daily. Active linezolid (ZYVOX) 600 mg Tablet Take 1 Tablet by mouth every 12 hours. Active metFORMIN (GLUCOPHAGE-XR) 500 mg XR tablet Take 2 Tablets by mouth 2 times daily (with meals). 4 Active Multivitamin Tablet Take 1 Tablet by mouth daily. Active nitroglycerin (NITROSTAT) 0.4 mg SL tablet DISSOLVE ONE TABLET UNDER THE TONGUE EVERY 5 MINUTES NEEDED FOR CHEST PAIN. DO NOT EXCEED A TOTAL OF 3 DOSES IN 15 MINUTES Active pantoprazole (PROTONIX) 40 mg Tablet, Delayed Release (E.C.) Take 1 Tablet by mouth 2 times daily. 4 Active ranolazine (RANEXA) 500 mg Tablet Sustained Release 12 hr Take 1 Tablet by mouth every 12 hours. 4 Active rosuvastatin (CRESTOR) 20 mg Tablet Take 1 Tablet by mouth nightly. 4 Active torsemide (DEMADEX) 20 mg tablet Take 1 Tablet by mouth 2 times daily. Active Active Problems Problem Noted Date Diagnosed Date Degeneration of intervertebr al disc of lumbar region with discogenic back pain 03/10/2024 Acquired spondylolisthesis 03/10/2024 Other idiopathic scoliosis, thoracolumbar region 03/10/2024 Spinal stenosis, lumbar kavita on, with neurogenic claudication 03/10/2024 Neural foraminal stenosis of lumbar spine 2023 Facet arthropathy, lumbar 03/10/2024 HNP (herniated nucleus pulposus), lumbar 024 Social History Tobacco Use Types Packs/Day Years Used Date Smoking Tobacco: Never Smokeless Tobacco: Never Tobacco Cessation:Counseling Given: Not Answered Alcohol Use Standard Drinks/Week Comments Never 0 (1 standard drink = 0.6 oz pur e alcohol) Sex and Gender Information Value Date Recorded Sex Assigned at Male 03/10/2024 1:00 PM EST Legal Sex Male 11:59 AM EST Gender Identity Male 03/10/2024 1:00 PM EST Sexual Orientation Straight 03/10/2024 1: 00 PM EST Last Filed Vital Signs Vital Sign Reading Time Taken Comments Blood Pressure 139/74 05/30/2024 1:13 PM EDT Pulse 91 05/30/2024 1:13 PM EDT Temperature 36.1 C (97 F) 05/30/2024 11:48 AM EDT Respiratory Rate 18 05/30/2024 1:13 PM EDT Oxygen Saturation 96% 05/30/2024 1:13 PM EDT Inhaled Oxygen Concentration - - Weight 108 kg (238 lb) 05/30/2024 11:48 AM EDT Height 175.3 cm (5' 9 ) 05/30/2024 11:48 AM EDT Body Mass Index 35.15 05/30/2024 11:48 AM EDT Plan of Treatment Health Maintenance Due Date Last Done Comments Cologuard 1955 Colonoscopy 1955 Colorectal Cancer Screening 1955 FIT 1955 Hepatitis C Virus (HCV) Screening 1974 Pneumococcal Vaccine: 50+ Years (1 of 1 - PCV) 004 Zoster-RZV(Shingrix) (1 of 2) 12/05/2003 RSV Vaccines (1 - Risk 60-74 years 1-dose series) 11/11 Fall Risk Assessment 2018 COVID-19 Vaccine ( season) 2023 Advance Care Planning 03/12/2024 BMI Counseling 03/12/2024 Depression Screening 03/12/2024 Lipid Monitoring 10/31/2024 11/01/2023 Influenza Vaccination (#1) 2024 01/25/2019 Tetanus Vaccination (Every 10 Years) 10/27/202710/10 Lipid Screening Discontinued 11/01/2023 Insurance [facility] MEDICARE Care Teams Shopping Centre Manager Relationship Specialty Start Date End Date Carlos A Gross DO [address] [place] [id number] PCP - General Family Medicine 02/22/24
--- OUTSIDE RECORDS SUMMARY | 2024-09-18 10:53 | XMS_ITS | Encounter Summary ---
Author Organization [place] [address] Care Team Providers Care Consulting Utility Forester Name Role Phone Renato Rey DO, Viral Primary Care Provider [phone] Ariana Munguia MD Unavailable [phone] Allison Angel RN Unavailable Unavailable Reason for Visit * Reason Onset Date Comments CM- Telephonic Outreach 07/28/2024 CM-Medication Assistance 07/28/2024 Encounter Details Date Type Department Care Team (Late st Contact Info) Description 07/28/2024 Patient Outreach [facility] [address] [place] [address] Allison Angel, RN CM- Telephonic Outreach; CM-Medication Assistance Social History Tobacco Use Types Packs/Day Years Used Date Smoking Tobacco: Never Smokeless Tobacco: Never Alcohol Use Standard Drinks/Week Comments No 0 (1 standard drink = 0.6 oz pur e alcohol) NO [facility] Utilities Answer Date Recorded In the [...] Date Recorded PHQ-2 Total Score 0 01/01/2024 [facility] [place] [facility] Occupat ional Health - Occupational Stress [...] for daily living? No 07/24/2024 [facility] IP Transportation Answer D ate [...] Assessment Author No 02/20/2023 5:25 PM EST [place] RMA * Because of a physical, mental [...] Refills Last Filled Start Date End Date dapagliflozin propanediol (FARXIGA) 10 mg Oral Tablet Take 1 Tablet by mouth daily. 90 Tablet 3 07/28/2024 documented in this encounter Progress Notes * Allison Angel RN - 07/28/2024 10:35 AM EDT Refills for Farxiga sent to speciality pharmacy. Patient is enrolled in assistance program through [employer]. documented in this encounter Plan of Treatment Upcoming Encounters Date Type Department Care Team (Late st Contact Info) Description 11/18/2024 10:45 AM EDT Office Visit [facility] [address] [address] Ariana Munguia MD [address] [place] [id number] 01/02/2025 10:45 AM EDT Office Visit [facility] [place] [address] [place], [place] [address] Abel Hernandez MD [address] [facility] [address] [place] [address] documented as of this encounter Goals Goal Patient Goal Type Associated Problems Recent Progress Patient-Stated? Author Blood Pressure < 140/90 Blood Pressure 150/80(2024 10:40 AM EDT) No Carlee Rose CMA BMI (Calculated) < 30 General 36.6(05/09/20 25 10:40 AM EDT) No Carlee Rose CMA Maintain a healthy diet, exercise regularly and maintain an ideal body weight General No Elza Mckeon, JORGE <Enter Goal> General No Allison Angel, JAMISON HEMOGLOBIN A1C < 7.0 Result Component 9.6( 4 2:26 PM EDT) No Carlee Rose CMA documented as of this encounter Visit Diagnoses Not on filedocumented in this encounter Discontinued Medications Medication Sig Discontinue Reason Start Date End Da te dapagliflozin propanediol (FARXIGA) 10 mg Oral Tablet Take 1 Tablet by mouth daily. Reorder 08/25/2022 07/28/2024 documented as of this encounter Additional Health Concerns Assessment Noted Time A fall risk assessment has been complete d for the patient 05/20/2024 4:23 PM EDT documented as of this encounter Care Teams Consulting Utility Forester Relationship Specialty Start Date End Date Carlos A Gross DO [address] [place] [phone] PCP - General Family Medicine 06/15/20 Ariana Munguia MD [address] [place] [id number] Internal Medicine-Cardiovascular Disease 04/11/22 Allison Angel, JAMISON Tapper Hand Registered Nurse 11/28/23 09/01/24 documented as of this encounter
[2024-09-18 11:54] LABS: Anion Gap 18.5 mEq/L (5-15); Blood Urea Nitrogen 35 mg/dl (9-20); Calcium 9.3 mg/dl (8.4-10.2); Carbon Dioxide 24 mmol/L (22.0-30.0); Chloride 100 mmol/L (98-107); Creatinine,Serum 1.50 mg/dl (0.66-1.25); Estimated Glomerular Filt Rate 46 ml/min (>60); GFR (African American) 56 ML/MIN (>60); Glucose 224 mg/dl (74-100); Potassium 4.5 mmoL/L (3.5-5.1); Sodium 138 mmol/L (136-145)
== END 2024-09-18 23:59 | disposition home or self-care (01) ==
LOC: LAB 10:46
PROVIDERS: PCP Nurse Practitioner Family; Visit Provider Nurse Practitioner Family
DX: I25.708 Atherosclerosis of coronary artery bypass graft(s), unspecified, with other forms of angina pectoris (principal)
CPT/HCPCS: 36415; 80048

== ENCOUNTER 2024-11-19 07:40 | Day surgery (SDC) | payer MEDICARE, SELFPAY ==
[2024-11-19] VITALS (8 sets, daily range): BP systolic 125–157; BP diastolic 51–81; PULSE 58–73; RESP 16–20; O2SAT 92–97; BMI 36.1
--- NOTE | 2024-11-19 07:09 | IR_ITS ---
APPROVED REPORT Patient Location: Outpatient PROCEDURES Right heart catheterization INDICATION Pulmonary hypertension Informed consent was obtained prior to the procedure. COMPLICATIONS NONE Estimated Blood Loss: LESS THAN 10 ML TECHNIQUE One percent lidocaine was used to anesthetize the right anterior aspect of the neck. A auto parts clerk needle was used to identify the right internal jugular vein. Following this a larger cannulation needle was used to cannulate the right internal jugular vein and a wire was passed into the vein. Prior to the 7 Mexican sheath being inserted the wire was confirmed under fluoroscopic guidance to be in the inferior vena cava. A 7 Mexican sheath was introduced and a [place] catheter was floated using hemodynamic waveforms in the pulmonary artery, right ventricle , and right atrium. Saturations were obtained in the pulmonary artery and the right atrium. At the end of the procedure the patient was transferred to the postop holding area in stable condition for sheath removal. ANGIOGRAPHIC RESULTS Right atrial pressure 10 mmHg Pulmonary artery pressure 32/20 mmHg Pulmonary occlusion pressure 15 mmHg Aortic saturation 99% Right atrial saturation 73% Pulmonary artery saturation 78% Hemoglobin 13.5 Cardiac output 7.3 L/min IMPRESSION Mildly elevated left-sided filling pressures PLAN 1. Will increase torsemide and spironolactone given elevated pulmonary occlusion pressure 2. Consider Cordella if clinically appropriate Electronically signed by : Wilder Hosbon MD 11/19/2024 15:12:54
[2024-11-19 08:06] LABS: Hematocrit 40.3 % (42.0-52.0); Hemoglobin 13.5 g/dL (14.1-18.0); Immature Granulocytes % 0.4 %; Mean Corpuscular HGB Conc 33.5 g/dL (31.8-35.4); Mean Corpuscular Hemoglobin 29.2 pg (27.0-31.2); Mean Corpuscular Volume 87.2 fl (80-94); Nucleated Red Blood Cells % 0 %; Platelet Count 218 K/mm3 (142-424); Red Blood Count 4.62 M/mm3 (4.60-6.20); Red Cell Distribution Width-SD 42.9 fL; White Blood Count 5.0 K/mm3 (4.8-10.8)
[2024-11-19 08:19] LABS: Anion Gap 14.5 mEq/L (5-15); Blood Urea Nitrogen 29 mg/dl (9-20); Calcium 10.1 mg/dl (8.4-10.2); Carbon Dioxide 22 mmol/L (22.0-30.0); Chloride 105 mmol/L (98-107); Creatinine Clearance Estimated 60 mL/min (50-200); Creatinine,Serum 1.80 mg/dl (0.66-1.25); Estimated Glomerular Filt Rate 37 ml/min (>60); GFR (African American) 45 ML/MIN (>60); Glucose 119 mg/dl (74-100); Potassium 4.5 mmoL/L (3.5-5.1); Sodium 137 mmol/L (136-145)
[2024-11-19] MEDS: 0.9 % SODIUM CHLORIDE 500 ML 25 ML IV (10:15)
[2024-11-19] MEDS: HEPARIN 1,000 UNITS/500ML NS (CATH LAB) 3000 UNIT IV (10:15)
[2024-11-19] MEDS: LIDOCAINE 1% 10ML MDV 10 ML IJ (10:26)
[2024-11-19] MEDS: MIDAZOLAM HCL 1MG/ML 5ML VIAL 1 MG IV (10:55)
[2024-11-19] MEDS: FENTANYL 100MCG/2ML VIAL 50 MCG IV (10:55)
[2024-11-19 13:29] LABS: CATHL Arterial O2 SAT 78 % (90-100); CATHL Venous O2 SAT 73.3 % (75-80)
== END 2024-11-19 12:26 | disposition home or self-care (01) ==
LOC: CATHLAB 07:42
PROVIDERS: PCP Nurse Practitioner Family; Visit Provider Internal Medicine
PROC: 4A023N6 Measurement of Cardiac Sampling and Pressure, Right Heart, Percutaneous Approach (ICD-10-PCS; CPT 93451; principal; 2024-11-19 07:30)
DX: I27.20 Pulmonary hypertension, unspecified (principal); R94.30 Abnormal result of cardiovascular function study, unspecified; I50.20 Unspecified systolic (congestive) heart failure; I11.0 Hypertensive heart disease with heart failure; R94.31 Abnormal electrocardiogram [ECG] [EKG]; R53.83 Other fatigue; I25.10 Atherosclerotic heart disease of native coronary artery without angina pectoris; I25.708 Atherosclerosis of coronary artery bypass graft(s), unspecified, with other forms of angina pectoris; E11.9 Type 2 diabetes mellitus without complications; E78.2 Mixed hyperlipidemia; Z95.1 Presence of aortocoronary bypass graft; Z79.1 Long term (current) use of non-steroidal anti-inflammatories (NSAID); Z79.84 Long term (current) use of oral hypoglycemic drugs; Z79.4 Long term (current) use of insulin; Z79.899 Other long term (current) drug therapy; Z88.8 Allergy status to other drugs, medicaments and biological substances
CPT/HCPCS: 80048; 82810; 85025; 93451; 99152; C1894; J1200; J1644; J3010; J7040

== ENCOUNTER 2024-12-01 20:13 | Emergency (ER) | payer MEDICARE, SELFPAY ==
--- OUTSIDE RECORDS SUMMARY | 2023-02-26 09:00 | XMS_ITS | Continuity of Care Document ---
Author Organization [facility] Address [address] [place] [address] Phone Care Team Providers Care Sample Card Maker Name Role Phone Brett Howard MD Unavailable Unavailable Medications Medication Instructions Dosage Effective Dates (start - stop) Status Comments Medrol (Antoni) 4 mg tablets in a dose pack take by Oral route Not Available - Active Procedures Procedure Date Office/outpatient visit,[facility] 2022 X-ray exam lwr spine, min 4 views X-ray exam of knee, 3 views Advance Directives Directive Yes / No Effective Date File Name No Information Encounters Encounter Description Practice Location Reason(s) For Visit Diagnoses Date Provider Providers Copied on Encounter [facility] [address], [facility], tel:[phone] [address] [place] [address] Bilateral primary osteoarthritis of knee [address] [place], [id number] , [place]. tel:[phone] Referring Provider: Carlos A Gross, [address] [place] [address], [address] . tel:[phone] [facility] [address], [facility], tel:[phone] [address] [place] [address] No Information [address] [place], [place], [id number] , [place]. tel:[phone] Referring Provider: Carlos A Gross, [address] [place] [address], [address] . tel:[phone] [facility], [facility] [place], [address], tel:[phone] [facility] Bilateral primary osteoarthritis of knee [address], [place], [place], [id number] , . tel:[phone] Referring Provider: Carlos A Gross, [address] [place] [address], [address] . tel:[phone] Office/outpa [facility]ient visit,[facility] [place] [address] [place], [address], tel:[phone] [facility] Other intervertebral disc degeneration, lumbar regionBilateral primary osteoarthritis of kneeConnective tissue and disc stenosis of intervertebral foramina of lumbar region [address], [place], [place], [id number] , . tel:[phone] Referring Provider: Carlos A Gross, [address] [place] [address], [address] . tel:[phone] Family History Family Member Type Diagnosis Age At Onset No Information Payers Payer name Insurance type Covered libertarian ID Authoriza tion(s) [employer] Medicare - [id number] Social History Type Description Quantity Date Captured [...]
[2024-12-01 20:22] VITALS: BP 111/52; PULSE 66; RESP 16; TEMP 36.5; O2SAT 97; BMI 35.1
--- NOTE | 2024-12-01 20:39 | XR_ITS ---
PROCEDURE INFORMATION: Exam: XR Chest Exam date and time: 12/01/2024 8:46 PM Age: 68 years old Clinical indication: Shortness of breath; Additional info: Short of breath TECHNIQUE: Imaging protocol: Radiologic exam of the chest. Views: 1 view. FINDINGS: Lungs: Nonspecific bibasilar opacities, favoring atelectasis or pneumonia. Low lung volume Pleural spaces: No pneumothorax. Heart/Mediastinum: Prominent cardiac silhouette Bones/joints: Median sternotomy. IMPRESSION: Nonspecific bibasilar opacities, favoring atelectasis or pneumonia. Recommend imaging follow-up until complete resolution.
--- NOTE | 2024-12-01 20:40 | HMH.EDGENADL ---
Discharge Plan Disposition Patient Disposition: Home, Self-Care Prescriptions Prescriptions: New amoxicillin 500 mg capsule 1,000 mg PO BID 7 Days Qty: 28 0RF No Action (DME) Accu-Chek Guide test strips Strip See Rx Instructions .ROUTE .MEDSUPPLY Qty: 10 Patient Comments: USE 1 STRIP THREE TIMES DAILY Rx Instructions: As directed (DME) lancets [Accu-Chek Softclix Lancets] Misc See Rx Instructions .ROUTE .MEDSUPPLY Qty: 100 Patient Comments: USE 1 TO CHECK GLUCOSE THREE TIMES DAILY Rx Instructions: As directed glimepiride 4 mg tablet 4 mg PO BID Patient Comments: TAKE 1 TABLET BY MOUTH TWICE DAILY BEFORE MEAL(S) insulin glargine [Lantus Solostar U-100 Insulin] 100 unit/mL (3 mL) insulin pen 33 unit SQ ONCE Patient Comments: INJECT 33 UNITS EVERY DAY BY SUBCUTANEOUS ROUTE AT BEDTIME fexofenadine 60 mg tablet 60 mg PO BID Patient Comments: TAKE 1 TABLET BY MOUTH TWICE DAILY ibuprofen 800 mg tablet 800 mg PO Q8H PRN Patient Comments: TAKE 1 TABLET BY MOUTH EVERY 8 HOURS NEEDED isosorbide mononitrate 60 mg tablet extended release 24 hr 60 mg PO ONCE Patient Comments: TAKE 1 TABLET BY MOUTH ONCE DAILY IN THE MORNING pantoprazole 40 mg tablet,delayed release (DR/EC) 40 mg PO ONCE Patient Comments: TAKE 1 TABLET BY MOUTH TWICE DAILY ketoconazole 2 % cream topical Patient Comments: APPLY CREAM TOPICALLY ONCE DAILY metformin 500 mg tablet extended release 24 hr 500 mg PO BID calcitriol 0.25 mcg capsule 0.25 mcg PO DAILY Patient Comments: TAKE 1 CAPSULE BY MOUTH EVERY 48 HOURS rosuvastatin 20 mg tablet 20 mg PO DAILY Patient Comments: TAKE 1 TABLET BY MOUTH NIGHTLY dapagliflozin propanediol [Farxiga] 10 mg tablet 10 mg PO DAILY Entresto 24-26 mg tablet 1 tab PO BID Qty: 60 5RF torsemide 20 mg Tablet 60 mg PO DAILY Qty: 90 3RF spironolactone [Aldactone] 100 mg Tablet 100 mg PO DAILY Qty: 30 3RF Referrals Follow up/Referrals: Provider,Referral, [Referring, Medical] - See instructions Activity Restrictions/Add. Instructions Additional Instructions/Restrictions: Follow-up with your radio machinist tomorrow to discuss changing your medications as I do feel like the increased doses of your medications are likely dropping your blood pressure. Your chest x-ray does show that there could be a small pneumonia. You are being prescribed antibiotics. Take these as prescribed. Avoid work or exerting yourself to avoid shortness of breath or significant lightheadedness. If you develop any new or worsening symptoms, or if you become concerned for your health for any reason, return to the emergency department for evaluation. Clinical Impressions Clinical Impression: Shortness of breath, Lightheadedness, Pneumonia Print Language Print Language: Setswana Discharge ED Provider: Vinicius Amanda General Adult HPI <Rhonda Saavedra (ED), PATIENT RESOURCE SPECIALIST - Last Filed: 12/01/24 22:08> General Chief complaint: Dizziness Stated complaint: Low BP;Lightheaded Time Seen by Provider: 12/01/24 20:38 Mode of Arrival: Ambulatory Source of Information: Patient Description of Symptoms (Recalled from ER Triage Doc. by RN): Stated his blood pressure has been low and has been dizzy for the past week. He has a list of BP that he recorded today. Approx 1600-72/52, 82/59, 88/51, 91/55, 84/51. 1548: 116/65, 103/59, 113/57. 1902-107/68, 105/57, 97/55, 90/60. He states he just stopped taking lisinopril. He does not believe he takes any other blood pressure medication. States the hospital should have them on his record from last week. History of Present Illness HPI narrative: 68-year-old male presents to the ED today for complaint of shortness of breath but he does have CHF and he has been trying to get the fluid off with his extra fluid pills. Otherwise patient tells me he has had dizziness over the past 24 hours. Patient tells me that his blood pressure has been low and when it is low he is lightheaded. He brings a list of his blood pressures over the past 24 hours. Currently his blood pressure is 116/58 and he says he feels fine at this moment. He says that he has no chest pain. No nausea, vomiting or diarrhea. No fevers or chills. He says he always has shortness of breath. Related Data Home Medications ?Medication ?Instructions ?Recorded ?Confirmed calcitriol 0.25 mcg capsule 0.25 mcg PO DAILY 07/14/24 11/04/24 dapagliflozin propanediol 10 mg 10 mg PO DAILY 07/14/24 11/04/24 tablet (Farxiga) fexofenadine 60 mg tablet 60 mg PO BID 07/14/24 11/04/24 ibuprofen 800 mg tablet 800 mg PO Q8H PRN 07/14/24 11/04/24 isosorbide mononitrate 60 mg 60 mg PO ONCE 07/14/24 11/04/24 tablet,extended release 24 hr ketoconazole 2 % topical cream applic topical 07/14/24 11/04/24 metformin 500 mg tablet,extended 500 mg PO BID 07/14/24 11/04/24 release 24 hr Held on 11/19/24. Instructions: Resume on 11/22/24. HOLD FOR 2 DAYS pantoprazole 40 mg tablet,delayed 40 mg PO ONCE 07/14/24 11/04/24 release rosuvastatin 20 mg tablet 20 mg PO DAILY 07/14/24 11/04/24 blood sugar diagnostic (Accu-Chek #10 ea 09/18/24 11/04/24 Guide test strips) glimepiride 4 mg tablet 4 mg PO BID 09/18/24 11/04/24 insulin glargine 100 unit/mL (3 33 unit SQ ONCE 09/18/24 11/04/24 mL) subcutaneous pen (Lantus Solostar U-100 Insulin) lancets (Accu-Chek Softclix #100 ea 09/18/24 11/04/24 Lancets) Previous Rx's ?Medication ?Instructions ?Recorded sacubitril 24 mg-valsartan 26 mg 1 tab PO BID #60 tabs 11/18/24 tablet (Entresto) spironolactone 100 mg tablet 100 mg PO DAILY #30 tabs 11/19/24 (Aldactone) torsemide 20 mg tablet 60 mg (3 x 20 mg) PO DAILY #90 tabs 11/19/24 amoxicillin 500 mg capsule 1,000 mg (2 x 500 mg) PO BID 7 12/01/24 days #28 caps Allergies Allergy/AdvReac Type Severity Reaction Status Date / Time naproxen Allergy Mild Nausea Verified 12/01/24 20:30 Insulins - Human AdvReac Other Verified 12/01/24 20:30 PFSH <Rhonda Saavedra (ED), PATIENT RESOURCE SPECIALIST - Last Filed: 12/01/24 22:08> [facility] Disclaimer: The information contained in this section may have been updated after the patient was seen, as this information can be updated by other users. Medical History Hyperlipidemia Shortness of breath HFrEF (heart failure with reduced ejection fraction) Abnormal electrocardiogram [ECG] [EKG] CAD (coronary artery disease) CHF (congestive heart failure) Type 2 diabetes mellitus Surgical History S/P CABG x 3 S/P cardiac cath Social History Smoking Status: Unknown if ever smoked alcohol intake: never substance use type: denies use current occupational status: retired Travel in the last 8 weeks?: Inside the [place] Have you lived/traveled outside US in past 30 days?: No Contact w/someone who lives/traveled outside US past 30 days?: No Exposure to someone with infectious disease in past 14 days?: No Do you have a fever (greater than 100.4 F or 38 C)?: No Have you tested positive for COVID-19?: No Exposed to someone with COVID-19 in past 14 days?: No Do you have a sore throat?: No Do you have a cough?: No Do you have any weakness?: No Do you have any diarrhea?: No Are you experiencing any unusual bleeding?: No Do you have any muscle aches/pain?: No Do you have any abdominal pain?: No Are you experiencing loss of taste or smell?: No Other Medical History Have you received the Pneumonia Vaccine: No <Rhonda Saavedra (ED), PATIENT RESOURCE SPECIALIST - Last Filed: 12/01/24 22:08> ROS Obtained: Yes Systems reviewed as appropriate & no additional complaints except as documented Constitutional Constitutional: Reports as per HPI Physical Exam <Rhonda Saavedra (ED), PATIENT RESOURCE SPECIALIST - Last Filed: 12/01/24 22:08> General General appearance: alert and in no apparent distress Head Head exam: normocephalic Eye Eye exam: Present PERRL and EOMI ENT ENT exam: Present normal oropharynx and mucous membranes moist Neck Neck exam: Present full ROM and trachea midline Respiratory Respiratory exam: Present normal lung sounds bilaterally Cardiovascular Cardiovascular exam: Present regular rate, normal rhythm, normal heart sounds, +S1 and +S2 Abdominal Exam Abdominal exam: Present soft and normal bowel sounds Extremities Exam Extremities exam: Present full ROM, normal capillary refill and edema (Mild ankle edema) Neurological Exam Neurological exam: Present alert, oriented X3 and normal gait Skin Skin exam: Present warm, dry and intact Medical Decision Making <Rhonda Saavedra (ED), PATIENT RESOURCE SPECIALIST - Last Filed: 12/01/24 22:08> Medical Records Screening: Per USPSTF and CDC recommendations, given the prevalence of disease in our region, it is our hospital?s policy to screen for HIV and viral Hepatitis for all patients aged 18 and over and those with ongoing risk factors. Mata Inquiry Pt receiving controlled substance: No Mata was queried for this patient: No Vital Signs: 12/01/24 20:22 12/01/24 21:00 12/01/24 21:15 Temperature 97.7 F Temperature Source Oral Pulse Rate Pulse Rate [Right Brachial] 66 Respiratory Rate 16 13 21 Blood Pressure 93/52 L 113/56 L Blood Pressure [Right Arm] 111/52 L Blood Pressure Mean [Right Arm] 71 Blood Pressure Source Blood Pressure Source [Right Arm] Automatic Cuff Blood Pressure Position Blood Pressure Position [Right Arm] Sitting 02 Sat by Pulse Oximetry 97 Oxygen Delivery Method Room Air 12/01/24 21:30 12/01/24 23:12 Temperature 98.2 F Temperature Source Oral Pulse Rate 57 L Pulse Rate [Right Brachial] Respiratory Rate 13 20 Blood Pressure 100/54 L 100/62 L Blood Pressure [Right Arm] Blood Pressure Mean [Right Arm] Blood Pressure Source Automatic Cuff Blood Pressure Source [Right Arm] Blood Pressure Position Sitting Blood Pressure Position [Right Arm] 02 Sat by Pulse Oximetry Oxygen Delivery Method Room Air Lab Data Lab Results 12/01/24 20:45: SARS-CoV-2 (PCR) Not detected, Influenza A Untype (PCR) Not detected, Influenza Type B (PCR) Not detected 12/01/24 20:55: WBC 4.9, RBC 4.29 L, Hgb 12.6 L, Hct 37.7 L, MCV 87.9, MCH 29.4, MCHC 33.4, RDW 13.6, Plt Count 224, MPV 11.4 H, Neut % (Auto) 59.9, Lymph % (Auto) 23.1, Winkler % (Auto) 9.5 H, Eos % (Auto) 6.1, Baso % (Auto) 0.4, Neut # (Auto) 3.0, Lymph # (Auto) 1.1, Winkler # (Auto) 0.5, Eos # (Auto) 0.3, Baso # (Auto) 0.0, D-Dimer 0.45, Sodium 131 L, Potassium 5.2 H, Chloride 97 L, Carbon Dioxide 22, Anion Gap 17.2 H, BUN 36 H, Creatinine 1.80 H, Estimated Creat Clear 58, Estimated GFR 37 L, Est GFR ( Amer) 45 L, Glucose 228 H, Calcium 9.4, Magnesium 2.0, Total Bilirubin 0.5, AST 19, ALT 15, Alkaline Phosphatase 71, Troponin I 0.01, NT-Pro-B Natriuret Pep 649 H, Total Protein 6.0 L, Albumin 4.0, Globulin 2.0, Albumin/Globulin Ratio 2.0 H, Lipase 188 12/01/24 20:55 12/01/24 20:55 Orders (Tests/Meds): ED MEDICATIONS Discontinued Medications Generic Name Dose Route Start Last Admin Trade Name Freq PRN Reason Stop Dose Admin Amoxicillin 1,000 mg 12/01/24 23:13 12/01/24 23:17 Amoxicillin 500mg Capsule PO 12/01/24 23:14 1,000 mg ONCE ONE Administration ORDERS Category Date Time Status Chest XR -- portable [XR chest portable] Stat Exams 12/01/24 20:39 Completed BNP [NT Pro Brain Natriuretic Pep.] Stat Lab 12/01/24 20:55 Completed CBC [Complete Blood Count Auto Diff] Stat Lab 12/01/24 20:55 Completed Comprehensive Metabolic Panel Stat Lab 12/01/24 20:55 Completed D-Dimer Stat Lab 12/01/24 20:55 Completed Lipase Stat Lab 12/01/24 20:55 Completed Magnesium Stat Lab 12/01/24 20:55 Completed Rapid PCR Covid and Flu A/B Stat Lab 12/01/24 20:45 Completed Trop I [Troponin I] Stat Lab 12/01/24 20:55 Completed HEART Score History (anamnesis): Slightly suspicious ECG: Normal Age: >65 years Risk factors: 3 or more risk factors Troponin: </= normal limit HEART Score: 4 Medical Decision Narrative: patient is a 68-year-old male presenting to the emergency department for evaluation of shortness of breath and lightheaded feeling with low blood pressure. Patient is hemodynamically stable and nontoxic-appearing upon arrival, afebrile. Differential diagnosis includes hypotension, CHF exacerbation, among others. Workup will be conducted with hematologic labs, specific imaging. Patient had a heart cath on 11/20/2024 and his torsemide and his spironolactone both were increased at this time due to these results. I believe this is the reason that his blood pressure is dropping. Patient's D-dimer was 0.45 which puts him at a low risk for a clot. Patient's BNP was elevated at 649. Patient is taking spironolactone at 100 mg and torsemide at 60 mg. <Vinicius Amanda MD - Last Filed: 12/02/24 02:37> Vital Signs: 12/01/24 20:22 12/01/24 21:00 12/01/24 21:15 Temperature 97.7 F Temperature Source Oral Pulse Rate Pulse Rate [Right Brachial] 66 Respiratory Rate 16 13 21 Blood Pressure 93/52 L 113/56 L Blood Pressure [Right Arm] 111/52 L Blood Pressure Mean [Right Arm] 71 Blood Pressure Source Blood Pressure Source [Right Arm] Automatic Cuff Blood Pressure Position Blood Pressure Position [Right Arm] Sitting 02 Sat by Pulse Oximetry 97 Oxygen Delivery Method Room Air 12/01/24 21:30 12/01/24 23:12 Temperature 98.2 F Temperature Source Oral Pulse Rate 57 L Pulse Rate [Right Brachial] Respiratory Rate 13 20 Blood Pressure 100/54 L 100/62 L Blood Pressure [Right Arm] Blood Pressure Mean [Right Arm] Blood Pressure Source Automatic Cuff Blood Pressure Source [Right Arm] Blood Pressure Position Sitting Blood Pressure Position [Right Arm] 02 Sat by Pulse Oximetry Oxygen Delivery Method Room Air Lab Data Lab Results 12/01/24 20:45: SARS-CoV-2 (PCR) Not detected, Influenza A Untype (PCR) Not detected, Influenza Type B (PCR) Not detected 12/01/24 20:55: WBC 4.9, RBC 4.29 L, Hgb 12.6 L, Hct 37.7 L, MCV 87.9, MCH 29.4, MCHC 33.4, RDW 13.6, Plt Count 224, MPV 11.4 H, Neut % (Auto) 59.9, Lymph % (Auto) 23.1, Winkler % (Auto) 9.5 H, Eos % (Auto) 6.1, Baso % (Auto) 0.4, Neut # (Auto) 3.0, Lymph # (Auto) 1.1, Winkler # (Auto) 0.5, Eos # (Auto) 0.3, Baso # (Auto) 0.0, D-Dimer 0.45, Sodium 131 L, Potassium 5.2 H, Chloride 97 L, Carbon Dioxide 22, Anion Gap 17.2 H, BUN 36 H, Creatinine 1.80 H, Estimated Creat Clear 58, Estimated GFR 37 L, Est GFR ( Amer) 45 L, Glucose 228 H, Calcium 9.4, Magnesium 2.0, Total Bilirubin 0.5, AST 19, ALT 15, Alkaline Phosphatase 71, Troponin I 0.01, NT-Pro-B Natriuret Pep 649 H, Total Protein 6.0 L, Albumin 4.0, Globulin 2.0, Albumin/Globulin Ratio 2.0 H, Lipase 188 Orders (Tests/Meds): ED MEDICATIONS Discontinued Medications Generic Name Dose Route Start Last Admin Trade Name Freq PRN Reason Stop Dose Admin Amoxicillin 1,000 mg 12/01/24 23:13 12/01/24 23:17 Amoxicillin 500mg Capsule PO 12/01/24 23:14 1,000 mg ONCE ONE Administration ORDERS Category Date Time Status Chest XR -- portable [XR chest portable] Stat Exams 12/01/24 20:39 Completed BNP [NT Pro Brain Natriuretic Pep.] Stat Lab 12/01/24 20:55 Completed CBC [Complete Blood Count Auto Diff] Stat Lab 12/01/24 20:55 Completed Comprehensive Metabolic Panel Stat Lab 12/01/24 20:55 Completed D-Dimer Stat Lab 12/01/24 20:55 Completed Lipase Stat Lab 12/01/24 20:55 Completed Magnesium Stat Lab 12/01/24 20:55 Completed Rapid PCR Covid and Flu A/B Stat Lab 12/01/24 20:45 Completed Trop I [Troponin I] Stat Lab 12/01/24 20:55 Completed HEART Score HEART Score: 4 Medical Decision Narrative: patient is a 68-year-old male presenting to the emergency department for evaluation of shortness of breath and lightheaded feeling with low blood pressure. Patient is hemodynamically stable and nontoxic-appearing upon arrival, afebrile. Differential diagnosis includes hypotension, CHF exacerbation, among others. Workup will be conducted with hematologic labs, specific imaging. Patient had a heart cath on 11/20/2024 and his torsemide and his spironolactone both were increased at this time due to these results. I believe this is the reason that his blood pressure is dropping. Patient's D-dimer was 0.45 which puts him at a low risk for a clot. Patient's BNP was elevated at 649. Patient is taking spironolactone at 100 mg and torsemide at 60 mg. I was consulted by the ADAMA, and we discussed the complexity of the problems being addressed. I approve the treatment and management plan for this patient's care in the emergency department, thus performing a substantive portion of the medical decision making. I, Vinicius Amanda MD, assumed total care of this patient at approximately 2215 pending Xray results. X-ray imaging was interpreted by me personally. Patient has bibasilar opacities which could represent atelectasis versus pneumonia. See radiology report for details. On reassessment, patient yvon in stable condition. Blood pressure remains on the lower end of normal and he has otherwise asymptomatic at this time. I do feel that patient's hypotension is likely secondary to his fairly significant dosage increase of his diuretics. He has been afebrile and maintaining appropriate oxygen saturations. I have low concern for sepsis at this time. Will give patient a dose of 1 g of amoxicillin here in the emergency department and a 7-day course to go home with for possible pneumonia. I did encourage him to talk with his radio machinist tomorrow about the diuretics that he is taking and the fact that they may be causing him symptomatic hypotension. I encouraged him to at minimum follow-up with them in 2 days as scheduled. Return precautions were given. All questions were answered. They demonstrated understanding and were in agreement this plan. He was then discharged from the emergency department in stable condition. Critical Care <Rhonda Saavedra (ED), PATIENT RESOURCE SPECIALIST - Last Filed: 12/01/24 22:08> Critical Care Time Critical Care Time: No
--- OUTSIDE RECORDS SUMMARY | 2024-12-01 20:40 | XMS_ITS | Clinical Summary ---
Author Organization [facility] Address [address] [place], [place] [address] Care Team Providers Care Supervisor Inspecting Name Role Phone Carlos A Gross DO Primary Care Provider [phone] Allergies Active Allergy Reactions Criticality Noted Date [...] 1-dose series) 11/11 Fall Risk Assessment 2018 Advance Care Planning 03/12/2024 BMI Counseling 03/12/2024 Depression Screening 03/12/2024 Lipid Monitoring 10/31/2024 11/01/2023 COVID-19 Vaccine ( season) 2024 Influenza Vaccination (#1) 2024 01/25/2019 Tetanus Vaccination (Every 10 Years) 10/27/202710/10 Lipid Screening Discontinued 11/01/2023 Insurance [facility] MEDICARE Care Teams Supervisor Inspecting Relationship Specialty Start Date End Date Carlos A Gross DO [address] [place] [phone] PCP - General Family Medicine 02/22/24
--- NOTE | 2024-12-01 20:48 | ECG_ITS ---
APPROVED REPORT Exam: Resting ECG HR:65 bpm ECG Measurements Heart Rate 65 AXES UT 214 P 19 QRSd 162 QRS -20 QT 453 T 69 QTc 464 Conclusion SINUS RHYTHM WITH FIRST DEGREE AV BLOCK LEFT BUNDLE BRANCH BLOCK [120+ ms QRS DURATION, 80+ ms Q/S IN V1/V2, 85+ ms R IN I/aVL/V5/V6] ABNORMAL ECG UNCONFIRMED REPORT Normal sinus rhythm. Left bundle branch block. no STEMI based on Sgarbossa criteria Electronically signed by : SHANON ARAGON, 12/01/2024 23:52:03
[2024-12-01 20:54] LABS: Coronavirus 19, PCR Not Detected (NotDetected); Influenza A, PCR Not Detected (NotDetected); Influenza B, PCR Not Detected (NotDetected)
[2024-12-01 21:00] VITALS: BP 93/52; RESP 13
[2024-12-01 21:00] LABS: Hematocrit 37.7 % (42.0-52.0); Hemoglobin 12.6 g/dL (14.1-18.0); Immature Granulocytes % 1.0 %; Mean Corpuscular HGB Conc 33.4 g/dL (31.8-35.4); Mean Corpuscular Hemoglobin 29.4 pg (27.0-31.2); Mean Corpuscular Volume 87.9 fl (80-94); Nucleated Red Blood Cells % 0 %; Platelet Count 224 K/mm3 (142-424); Red Blood Count 4.29 M/mm3 (4.60-6.20); Red Cell Distribution Width-SD 43.8 fL; White Blood Count 4.9 K/mm3 (4.8-10.8)
[2024-12-01 21:15] VITALS: BP 113/56; RESP 21
[2024-12-01 21:20] LABS: D-Dimer 0.45 ug/mL (0.0-0.5)
[2024-12-01 21:22] LABS: Albumin Level 4.0 g/dl (3.5-5.0); Chloride 97 mmol/L (98-107)
[2024-12-01 21:23] LABS: Potassium 5.2 mmoL/L (3.5-5.1); Sodium 131 mmol/L (136-145)
[2024-12-01 21:25] LABS: Alanine Aminotransferase 15 U/L (12-78); Albumin/Globulin Ratio 2.0 (1.1-1.8); Alkaline Phosphatase 71 U/L (38-126); Anion Gap 17.2 mEq/L (5-15); Aspartate Amino Transferase 19 U/L (17-59); Bilirubin,Total 0.5 mg/dl (0.2-1.3); Blood Urea Nitrogen 36 mg/dl (9-20); Carbon Dioxide 22 mmol/L (22.0-30.0); Creatinine Clearance Estimated 58 mL/min (50-200); Creatinine,Serum 1.80 mg/dl (0.66-1.25); Estimated Glomerular Filt Rate 37 ml/min (>60); GFR (African American) 45 ML/MIN (>60); Globulin 2.0 g/dL (1.3-3.2); Lipase 188 U/L (23-300); Total Protein,Serum 6.0 g/dl (6.3-8.2)
[2024-12-01 21:26] LABS: Calcium 9.4 mg/dl (8.4-10.2); Glucose 228 mg/dl (74-100); Magnesium 2.0 mg/dl (1.6-2.3)
[2024-12-01 21:28] LABS: NT Pro Brain Natriuretic Pep. 649 pg/mL (0-125)
[2024-12-01 21:29] LABS: Troponin I 0.01 ng/ml (0.00-0.034)
[2024-12-01 21:30] VITALS: BP 100/54; RESP 13
[2024-12-01 23:12] VITALS: BP 100/62; PULSE 57; RESP 20; TEMP 36.8; O2SAT 96
[2024-12-01] MEDS: AMOXICILLIN 500MG CAPSULE 1000 MG PO (23:17)
== END 2024-12-01 23:25 | disposition home or self-care (01) ==
PROVIDERS: Nurse Practitioner; Emergency Provider Student in an Organized Health Care Education/Training Program; PCP Nurse Practitioner Family
DX: J18.9 Pneumonia, unspecified organism (principal); I95.9 Hypotension, unspecified; R06.02 Shortness of breath; R42 Dizziness and giddiness; I11.0 Hypertensive heart disease with heart failure; I50.20 Unspecified systolic (congestive) heart failure; E78.5 Hyperlipidemia, unspecified
CPT/HCPCS: 71045; 80053; 83690; 83735; 83880; 84484; 85025; 85378; 87636; 93005; 99284

== ENCOUNTER 2024-12-30 15:15 | Outpatient (CLI) | payer MEDICARE, SELFPAY ==
--- OUTSIDE RECORDS SUMMARY | 2024-12-30 15:17 | XMS_ITS | Clinical Summary ---
Author Organization [facility] Address [address] [place], [place] [address] Care Team Providers Care Sandblast Carver Name Role Phone Carlos A Gross DO Primary Care Provider [phone] Allergies Active Allergy Reactions Criticality Noted Date [...] Years) 10/27/202710/10 Lipid Screening Discontinued 11/01/2023 Insurance [facility] MEDICARE Care Teams Sandblast Carver Relationship Specialty Start Date End Date Carlos A Gross DO [address] [place] [id number] PCP - General Family Medicine 02/22/24
[2024-12-30 15:28] LABS: Hematocrit 39.9 % (42.0-52.0); Hemoglobin 13.4 g/dL (14.1-18.0); Immature Granulocytes % 0.6 %; Mean Corpuscular HGB Conc 33.6 g/dL (31.8-35.4); Mean Corpuscular Hemoglobin 29.6 pg (27.0-31.2); Mean Corpuscular Volume 88.1 fl (80-94); Nucleated Red Blood Cells % 0 %; Platelet Count 246 K/mm3 (142-424); Red Blood Count 4.53 M/mm3 (4.60-6.20); Red Cell Distribution Width-SD 42.7 fL; White Blood Count 5.0 K/mm3 (4.8-10.8)
[2024-12-30 16:05] LABS: Albumin Level 3.9 g/dl (3.5-5.0); Chloride 97 mmol/L (98-107); Potassium 4.4 mmoL/L (3.5-5.1); Sodium 135 mmol/L (136-145)
[2024-12-30 16:07] LABS: Blood Urea Nitrogen 22 mg/dl (9-20); Creatinine,Serum 1.70 mg/dl (0.66-1.25); Estimated Glomerular Filt Rate 40 ml/min (>60); GFR (African American) 48 ML/MIN (>60)
[2024-12-30 16:08] LABS: Alanine Aminotransferase 19 U/L (12-78); Alkaline Phosphatase 92 U/L (38-126); Anion Gap 16.4 mEq/L (5-15); Aspartate Amino Transferase 19 U/L (17-59); Bilirubin,Direct 0.0 mg/dl (0.0-0.4); Bilirubin,Indirect 0.2 mg/dL (0.0-0.9); Bilirubin,Total 0.2 mg/dl (0.2-1.3); Bilirubin,Unconjugated 0.3 mg/dL (0.0-1.1); Carbon Dioxide 26 mmol/L (22.0-30.0); Cholesterol 144 mg/dl (140-200); Total Protein,Serum 6.1 g/dl (6.3-8.2); Triglycerides 354 mg/dl (30-150)
[2024-12-30 16:09] LABS: Calcium 9.2 mg/dl (8.4-10.2); Glucose 342 mg/dl (74-100); HDL Cholesterol 27 mg/dl (40-60)
[2024-12-30 16:17] LABS: NT Pro Brain Natriuretic Pep. 554 pg/mL (0-125)
[2024-12-30 16:35] LABS: C-Reactive Protein 1.4 mg/L (0-4)
== END 2024-12-30 23:59 | disposition home or self-care (01) ==
LOC: LAB 15:15
PROVIDERS: PCP Nurse Practitioner Family; Visit Provider Physician Assistant
DX: I25.10 Atherosclerotic heart disease of native coronary artery without angina pectoris (principal); E78.5 Hyperlipidemia, unspecified; E11.9 Type 2 diabetes mellitus without complications
CPT/HCPCS: 36415; 80048; 80061; 80076; 83880; 85025; 85651; 86140

== ENCOUNTER 2025-01-07 08:35 | Outpatient (CLI) | payer MEDICARE, SELFPAY ==
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
[2025-01-07 09:50] LABS: Anion Gap 13.5 mEq/L (5-15); Blood Urea Nitrogen 33 mg/dl (9-20); Calcium 9.5 mg/dl (8.4-10.2); Carbon Dioxide 26 mmol/L (22.0-30.0); Chloride 97 mmol/L (98-107); Creatinine,Serum 1.80 mg/dl (0.66-1.25); Estimated Glomerular Filt Rate 37 ml/min (>60); GFR (African American) 45 ML/MIN (>60); Glucose 304 mg/dl (74-100); Potassium 4.5 mmoL/L (3.5-5.1); Sodium 132 mmol/L (136-145)
[2025-01-07 09:57] LABS: NT Pro Brain Natriuretic Pep. 1470 pg/mL (0-125)
== END 2025-01-07 23:59 | disposition home or self-care (01) ==
PROVIDERS: Physician Assistant; PCP Nurse Practitioner Family; Visit Provider Nurse Practitioner Family
DX: M47.816 Spondylosis without myelopathy or radiculopathy, lumbar region (principal); I27.20 Pulmonary hypertension, unspecified; I50.20 Unspecified systolic (congestive) heart failure; E78.5 Hyperlipidemia, unspecified; I25.10 Atherosclerotic heart disease of native coronary artery without angina pectoris
CPT/HCPCS: 36415; 72110; 80048; 83880

== ENCOUNTER 2025-01-20 12:24 | Outpatient (CLI) | payer MEDICARE, SELFPAY ==
--- OUTSIDE RECORDS SUMMARY | 2014-12-23 17:15 | XMS_ITS | Encounter Summary ---
Author Organization [place] [address] Care Team Providers Care Recreation Worker Name Role Phone Edgar Dodson MD Primary Care Provider [phone] Elba Tapia RN Unavailable Unavail able Encounter Details Date Type Department Care Team (Latest Contact Info) Description 12/23/2014 6:15 PM EDT Hospital Encounter [facility] [address] [facility] [place] [address] Left without seen Social History Tobacco Use Types Packs/Day Years Used Date Smoking Tobacco: Never Smokeless Tobacco: Never Alcohol Use Standard Drinks/Week Comments No 0 (1 standard drink = 0.6 oz pur e alcohol) NO [facility] Utilities Answer Date Recorded In the past 12 months has [employer] electric, gas, oil, or water company threatened to shut off services in your home? No 01/01/2024 Overall Financial Resource Strain (CARDIA) Answe r Date Recorded How hard is it for you to pa y for the very basics like food, housing, medical care, and heating? Not very hard 07/24/2024 PHQ-2 Answer Date Recorded PHQ-2 Total Score 0 01/01/2024 [facility] [place] of Occupat ional Health - Occupational Stress [...] things needed for daily living? No 07/24/2024 [facility] IP Transportation Answer D ate Recorded In [...] 12/31/2023 7:00 PM Tracie Howard RN * [place] Suicide Severity Rating Scale (Q shift for [...] Elza Mckeon RMA <Enter Goal> General No Alliosn Angel RN HEMOGLOBIN A1C < 7.0 Result Component 9.6( 2:26 PM EDT) No Carlee Rose CMA documented as of this encounter Visit Diagnoses Not on filedocumented in this encounter Additional Health Concerns Infection Onset Date Last Indicated Resolved Time R/O C-Diff 05/20/2021 05/20/2021 05/20/2021 3:39 PM EST documented as of this encounter Care Teams Recreation Worker Relationship Specialty Start Date End Date Edgar Dodson MD [address] [place] [address] PCP - General 04/08/09 07/05/15 Elba Tapia, RN Health Advocate 10/21/13 5 documented as of this encounter
--- OUTSIDE RECORDS SUMMARY | 2018-05-20 10:35 | XMS_ITS | Encounter Summary ---
Author Organization [place] [address] Care Team Providers Care Atomic Physics Teacher Name Role Phone Omi Daly DO Primary Care Provider [phone] Encounter Details Date Type Department Care Team (Latest Contact Info) Description 05/20/2018 11:35 AM EDT Hospital Encounter [facility] [address] [facility] [place] [address] Left without seen Social History Tobacco Use Types Packs/Day Years Used Date Smoking Tobacco: Never Smokeless Tobacco: Never Alcohol Use Standard Drinks/Week Comments No 0 (1 standard drink = 0.6 oz pur e alcohol) NO [facility] Utilities Answer Date Recorded In the [...] Date Recorded PHQ-2 Total Score 0 01/01/2024 [facility] [place] of Occupat ional Health - Occupational Stress [...] things needed for daily living? No 07/24/2024 [facility] IP Transportation Answer D ate [...] 6:58 PM EDT Meron Escobar RN * Is the person deaf or does [...] of Assessment Author No 04/29/2018 3:37 PM Micehlle Matias RMA * Because of a physical, [...] (Past 1 Month) 0 12/01/2019 4:10 PM EDT Derick Self RN Have you thought about doing something to make youself not alive anymore? (Past 1 Month) 0 12/01/2019 4:10 PM EDT Derick Self RN * Recent Risk Level: Answer Date of Assessment Author No Risk, Screening Complete 12/01/2019 4:10 PM E Derick Da Silva RN * Suicide Severity Rating Answer Date of Assessment Author No Risk 12/31/2023 7:00 PM EDT Tracie Peña RN * [place] Suicide Severity Rating Scale (Q shift for [...] 02/20/2023 5:25 PM EST Dianne Dai RMA * Because of a physical, mental or emotional condition, does this person have serious difficulty concentrating, remembering or making decisions? Answer Entry Date Author No 04/29/2018 3:37 PM EST Michelle Baig RMA documented in this encounter Plan of [...] documented as of this encounter Care Teams Atomic Physics Teacher Relationship Specialty Start Date End Date Omi Daly DO [address] [place] [address] PCP - General Family Medicine 07/06/15 06/14/20 documented as of this encounter
--- NOTE | 2025-01-20 12:27 | MR_ITS ---
FINAL REPORT TECHNIQUE: Multiplanar MR without contrast CLINICAL HISTORY: ABNML FINDINGS ON DX IMAGING. low back pain. bilateral hip pain COMPARISON: none FINDINGS: Sagittal images show normal vertebral height. Alignment is normal. Marrow signal pattern is unremarkable. T12-L1: Unremarkable L1-2: Minimal annular disc bulge. L2-3: Moderate annular disc bulge and facet arthropathy asymmetric to the left. Mild central canal stenosis. Moderate right and severe left neural foraminal narrowing. L3-4: Moderate annular disc bulge and facet arthropathy. Moderate canal stenosis. Severe right lateral recess. Severe bilateral neural foraminal narrowing. L4-5: Moderate annular disc bulge. Moderate right and mild left facet arthropathy. Mild central canal stenosis. Severe right neural foraminal narrowing and right lateral recess stenosis. L5-S1: Minimal annular disc bulge. Mild facet arthropathy. Mild neural foraminal narrowing. IMPRESSION: Advanced degenerative changes most pronounced at L2-3, L3-4, and on the right at L4-5. Reviewed, Interpreted and Dictated by Анна Vázquez MD Transcribed by Nery Kaiser Authenticated and [facility]
--- OUTSIDE RECORDS SUMMARY | 2025-01-20 12:27 | XMS_ITS | Encounter Summary ---
Author Organization [facility] [address] Care Team Providers Care Line Supervisor Name Role Phone Renato Rey DO, Viral Primary Care Provider [phone] Ariana Munguia MD Unavailable [phone] Reason for Visit * Reason Onset Date Comments Follow Up 12/12/2024 dallintus Encounter Details Date Type Department Care Team (Late st Contact Info) Description 12/12/2024 Telephone [facility] [address] [place] [address] Carlos A Gross DO [address] [place] [address] Follow Up (lantus) Social History Tobacco Use Types Packs/Day Years Used Date Smoking Tobacco: Never Smokeless Tobacco: Never Alcohol Use Standard Drinks/Week Comments No 0 (1 standard drink = 0.6 oz pur e alcohol) [facility] Utilities Answer Date Recorded In [...] Date Recorded PHQ-2 Total Score 0 01/01/2024 [facility] - Occupational Stress [...] things needed for daily living? No 07/24/2024 [facility] IP Transportation Answer D ate Recorded [...] Telephone Encounter - Allison Angel RN - 12/12/2024 1:15 PM EDT Patient informed that there is not a shipment here currently. Patient will be notified if further shipments arrived. Advised patient he will need to enroll with doctor at [facility] for 2025 enrollment with [employer]. * Telephone Encounter - Meron Palma - 12/12/2024 11:32 AM EDT Select the most appropriate reason for this telephone message: Follow Up Follow Up Who is Calling:Patient Return Method of Communication:Phone call What is the caller following up on (make sure to reference any prior documentation/encounter):checking to see if lamont is at office - is out and forgot to call last week Further follow-up needed?:Yes Additional Information:N/A documented in this encounter Plan of Treatment [...] Result Component 9.6( 4 2:26 PM EDT) Carlee Westbrook CMA documented as of this encounter Visit Diagnoses Not on filedocumented in this encounter Additional Health Concerns Assessment Noted Time A fall risk assessment has been complete d for the patient 05/20/2024 4:23 PM EDT documented as of this encounter Care Teams Line Supervisor Relationship Specialty Start Date End Date Carlos A Gross DO [address] [place] [phone] PCP - General Family Medicine 06/15/20 Ariana Munguia MD [address] [place], [place] [id number] Internal Medicine-Cardiovascular Disease 04/11/22 documented as of this encounter
--- OUTSIDE RECORDS SUMMARY | 2025-01-20 12:27 | XMS_ITS | Encounter Summary ---
Author Organization [place] [address] Care Team Providers Care Biometrician Name Role Phone Renato Rey DO, Viral Primary Care Provider [phone] Ariana Munguia MD Unavailable [phone] Reason for Visit * Reason Comments Medication Refill Encounter Details Date Type Department Care Team (Late st Contact Info) Description 01/18/2025 [facility]ill [facility] [address] [place] [address] Carlos A Gross DO [address] [place] [address] Medication Refill Social History Tobacco Use Types Packs/Day Years Used Date Smoking Tobacco: Never Smokeless Tobacco: Never Alcohol Use Standard Drinks/Week Comments No 0 (1 standard drink = 0.6 oz pur e alcohol) NO [facility] Utilities Answer Date Recorded In the past 12 months has [employer], gas, oil, or water [employer] threatened to shut off services in your home? No 01/01/2024 Overall Financial Resource Strain (CARDIA) Answe r Date Recorded How hard is it for you to pa y for the very basics like food, housing, medical care, and heating? Not very hard 07/24/2024 PHQ-2 Answer Date Recorded PHQ-2 Total Score 0 01/01/2024 [facility] [place] of Occupat ional Health - Occupational Stress [...] things needed for daily living? No 07/24/2024 [facility] IP Transportation Answer D ate Recorded [...] Refills Last Filled Start Date End Date Lancets (ACCU-CHEK SOFTCLIX LANCETS) Misc MiscIndications:Unc ontrolled type 2 diabetes mellitus with hyperglycemia (HCC) USE 1 TO CHECK GLUCOSE THREE TIMES DAILY 200 Each 01/19/2025 documented in this encounter Plan of Treatment [...] type 2 diabetes mellitus with hyperglycemia (HCC) documented in this encounter Discontinued Medications Medication Sig Discontinue Reason Start Date End Da te Lancets (ACCU-CHEK SOFTCLIX LANCETS) Misc MiscIndications:Uncontrol led type 2 diabetes mellitus with hyperglycemia (HCC) USE 1 TO CHECK GLUCOSE THREE TIMES DAILY 11/17/2024 01/19/2025 documented as of this encounter Additional Health Concerns Assessment Noted Time A fall risk assessment has been complete d for the patient 05/20/2024 4:23 PM EDT documented as of this encounter Care Teams Biometrician Relationship Specialty Start Date End Date Carlos A Gross DO [address] [place] [address] PCP - General Family Medicine 06/15/20 Ariana Munguia MD [address] [place] [address] Internal Medicine-Cardiovascular Disease 04/11/22 documented as of this encounter
--- OUTSIDE RECORDS SUMMARY | 2025-01-20 12:27 | XMS_ITS | Encounter Summary ---
Author Organization [place] [address] Care Team Providers Care Clam Sorter Name Role Phone Renato Rey DO, Viral Primary Care Provider [phone] Ariana Munguia MD Unavailable [phone] Reason for Visit * Reason Comments Medication Refill Encounter Details Date Type Department Care Team (Late st Contact Info) Description 12/28/2024 Refill [facility] [address] [place] [address] Carlos A Gross DO [address] [place] [address] Medication Refill Social History Tobacco Use Types Packs/Day Years Used Date Smoking Tobacco: Never Smokeless Tobacco: Never Alcohol Use Standard Drinks/Week Comments No 0 (1 standard drink = 0.6 oz pur e alcohol) NO [facility] Utilities Answer Date Recorded In the past 12 months has [employer], gas, oil, or water [employer] threatened to shut off services in your home? No 01/01/2024 Overall Financial Resource Strain (CARDIA) Answe r Date Recorded How hard is it for you to pa y for the very basics like food, housing, medical care, and heating? Not very hard 07/24/2024 PHQ-2 Answer Date Recorded PHQ-2 Total Score 0 01/01/2024 [facility] [place] of Occupat ional Health - Occupational Stress [...] things needed for daily living? No 07/24/2024 [facility] IP Transportation Answer D ate [...] Refills Last Filled Start Date End Date glimepiride (AMARYL) 4 mg Oral TabletIndications:U ncontrolled type 2 diabetes mellitus with hyperglycemia (HCC) TAKE 1 TABLET BY MOUTH TWICE DAILY BEFORE MEAL(S) 180 Tablet 12/30/2024 documented in this encounter Miscellaneous Notes * Telephone Encounter - Dolly Mackey CPhT - 12/30/2024 1:14 PM EDT Glimepiride Future Visit: N/A Last Assessed Visit: 05/20/24 Follow-Up Date: 11/20/24 Appointment protocol failed AND this patient requires the following labs/vitals. Routing to the office. Serum creatinine (6 months) and A1c (6 months) documented in this encounter Plan of Treatment [...] Discontinue Reason Start Date End Da te glimepiride (AMARYL) 4 mg Oral TabletIndications:Uncontro lled type 2 diabetes mellitus with hyperglycemia (HCC) TAKE 1 TABLET BY MOUTH TWICE DAILY BEFORE MEAL(S) 06/26/2024 12/30/2024 documented as of this encounter Additional Health Concerns Assessment Noted Time A fall risk assessment has been complete d for the patient 05/20/2024 4:23 PM EDT documented as of this encounter Care Teams Clam Sorter Relationship Specialty Start Date End Date Carlos A Gross DO [address] [place] [address] PCP - General Family Medicine 06/15/20 Ariana Munguia MD [address] [place] [address] Internal Medicine-Cardiovascular Disease 04/11/22 documented as of this encounter
--- OUTSIDE RECORDS SUMMARY | 2025-01-20 12:27 | XMS_ITS | Continuity of Care Document ---
Author Organization [facility] Address [address] [place] [address] Care Team Providers Care Speech Writer Name Role Phone SAPPHIRE JIMÉNEZ Referring Provider Assessment No assessment recorded. Plan of Treatment Reminders Order Date Submit Date Provider Last Modified By Organization Details Last Modified Time Details Appointments Follow Up 2024 10:20A M Darron Nice APRN Not available Not available Not available Lab CMP, serum or plasma 2024 025 RAJESH [facility], [address], [place], [place], [address], 01/20/2025 10:56:59 C-peptide , serum 2024 025 RAJESH [facility], [address], [place], [place], [address], 01/20/2025 10:56:58 amylase + lipase, serum 2024 025 RAJESH [facility], [address], [place], [place], [address], 01/20/2025 10:56:58 Referral None recorded. Procedures None recorded. Surgeries None recorded. Imaging US, duplex, abdomen, complete 2024 025 [email or web address] [facility] [address], [place], [address], 01/20/2025 11:23:11 Medication Orders None recorded. Patient TargetsNo targets recorded. Patient InstructionsNo instructions recorded. Reason for Referral None Reported. Results Created Date Observation Date Name Description Value Unit Range Abnormal Flag Note LastModifiedBy Organization Detail LastModifiedTime 01/07/2001/06/2025 jasmyne rodriguez am No observ ation record ed. [address], [place], [address], 01/06/2025 16:17:14 01/08/20 25 01/07/2025 XR, lumbo sacra l spine , 2 or 3 view No observ ation record ed. [facility] [address], [place], [address], 01/12/2025 11:19:20 Result Notes None recorded. Problems Name Problem SNOMED Code Status Onset Date Resolution Date Notes Provider Name and Address Organization Details Recorded Time Type 2 diabetes mellitus 25839175 Active [place] - [facility] 5 08:29:25 Hyperlipidemi a 32227755 Active Sandra Brink null, [place] - [facility] 5 08:29:50 Gastroesophag eal reflux disease 311112877 [facility] 5 08:30:21 Arteriosclero sis of coronary artery bypass graft 384963815 Active [place], [place] - [facility] 5 08:31:20 Chronic systolic heart failure 075212982 Active 2024 Darron Nice APRN [address], [place], [address] , [facility] - [facility] 5 08:53:26 Hyperparathyr oidism 20860673 Active 2024 Darron Nice APRN [address], [place], [address] , [facility] - [facility] 5 16:39:10 Problem Notes None recorded. Procedures Surgical History Date Name Laterality Status Provider Name and Address Organization Details Recorded Time 5 Advance Care Planning completed Sandra Brink [place] - [facility] 10/28/2024 14:00:58 08/19/202 5 Functional Status Assessed completed Sandra Brink [place] - [facility] 10/28/2024 14:00:58 Imaging Results None recorded. Procedure Notes None recorded. Medical Equipment None Reported. Allergies Allergen ID Allergen Name Allergen Category Reaction Reaction Severity Criticality Documentation Date Start Date Code Code System Note Provider Name and Address Organization Details Recorded Time 835572 insulin aspart, human medicatio n other moderate high 06/30/2024 05089 RxNorm state s any insul in at any dose drops his gluco se too much Sandra Brink ram[place], [place] - [facility] 5 08:24:14 333188 naproxen medicatio n abdominal pain moderate high 06/30/2024 7258 RxNorm Sandra navarro [place] [facility] 08:24:28 Medications Name Sig Start Date Stop Date Status Note LastModified by Organization Details LastModified Time amoxicill in 500 mg capsule TAKE 2 CAPSULES BY MOUTH TWICE DAILY FOR 7 DAYS 01/06 completed Not Available Not Available Not Available methocarb charo 500 mg tablet TAKE 1 TABLET BY MOUTH NIGHTLY 06/30 completed Not Available Not Available Not Available acetamino phen 325 mg tablet TAKE 2 TO 3 TABLETS BY MOUTH EVERY 6 HOURS NEEDED FOR PAIN AND FOR FEVER 06/30 completed Not Available Not Available Not Available doxycycli ne hyclate 100 mg capsule Take 1 capsule twice a day by oral route for 10 days. 10/17 completed Not Available Not Available Not Available torsemide 20 mg tablet TAKE 2 TABLETS EVERY DAY 01/20 completed Not Available Not Available Not Available bumetanid e 2 mg tablet TAKE 1 TABLET BY MOUTH ONCE DAILY active Not Available Not Available No t Available fexofenad ine 60 mg tablet Take 1 tablet twice a day by oral route. 2024 active Not Available Not Available Not Avai lable ibuprofen 800 mg tablet TAKE 1 TABLET BY MOUTH EVERY 8 HOURS NEEDED 11/04 completed Not Available Not Available Not Available fluconazo le 150 mg tablet TAKE ONE TABLET BY MOUTH A ONE-TIME DOSE 06/30 completed Not Available Not Available Not Available meloxicam 15 mg tablet TAKE 1 TABLET BY MOUTH ONCE DAILY 06/30 completed Not Available Not Available Not Available prednison e 20 mg tablet TAKE 1 TABLET BY MOUTH ONCE DAILY FOR 5 DAYS 06/30 completed Not Available Not Available Not Available spironola ctone 100 mg tablet TAKE 1 TABLET BY MOUTH ONCE DAILY active Not Available Not Available No t Available Accu-Chek Softclix Lancets USE 1 TO CHECK GLUCOSE THREE TIMES DAILY active Not Available Not Available No t Available clopidogr el 75 mg tablet TAKE 1 TABLET BY MOUTH ONCE DAILY 11/12 completed Not Available Not Available Not Available triamcino lone acetonide 0.1 % topical cream APPLY CREAM EXTERNAL LY TWICE DAILY active Not Available Not Available No t Available spironola ctone 25 mg tablet TAKE 1 TABLET EVERY DAY 2024 active Not Available Not Available Not Avai lable isosorbid e mononitra te ER 60 mg tablet,ex tended release 24 hr Take 1 tablet every day by oral route in the morning. 2024 active Not Available Not Available Not Avai lable methocarb charo 750 mg tablet TAKE 1 TABLET BY MOUTH THREE TIMES DAILY NEEDED FOR PAIN 06/30 completed Not Available Not Available Not Available cephalexi n 500 mg capsule Take 1 capsule twice a day by oral route for 10 days. 11/28 completed Not Available Not Available Not Available pantopraz ole 40 mg tablet,de layed release Take 1 tablet every day by oral route. 2024 active Not Available Not Available Not Avai lable clotrimaz ole-betam ethasone 1 %-0.05 % topical cream APPLY CREAM TOPICALL Y TWICE DAILY active Not Available Not Available No t Available glimepiri de 4 mg tablet Take 1 tablet twice a day by oral route for 30 days. 2024 active Not Available Not Available Not Avai lable nitroglyc awilda 0.4 mg sublingua l tablet DISSOLVE ONE TABLET UNDER THE TONGUE EVERY 5 MINUTES NEEDED FOR CHEST PAIN. DO NOT EXCEED A TOTAL OF 3 DOSES IN 15 MINUTES 2024 active Not Available Not Available Not Avai lable aspirin 81 mg tablet Take 1 tablet every day by oral route. 2024 active Not Available Not Available Not Avai lable mupirocin 2 % topical ointment APPLY OINTMENT TOPICALL Y TO AFFECTED AREA THREE TIMES DAILY active Not Available Not Available No t Available furosemid e 20 mg tablet TAKE 3 TABLETS BY MOUTH three times DAILY active Not Available Not Available No t Available ketoconaz ole 2 % topical cream APPLY CREAM TOPICALL Y ONCE DAILY active Not Available Not Available No t Available clobetaso l 0.05 % scalp solution APPLY TO THE AFFECTED SCALP AREA BY TOPICAL ROUTE 2 TIMES PER DAY IN THE MORNING AND EVENING 2024 active Not Available Not Available Not Avai lable fluticaso ne propionat e 50 mcg/actua tion nasal spray,lc pension INSTILL ONE (1) SPRAY EACH NOSTRIL EVERY DAY active Not Available Not Available No t Available metformin ER 500 mg tablet,ex tended release 24 hr Take 2 tablets twice a day by oral route for 30 days. 01/06 completed Not Available Not Available Not Available lisinopri l 2.5 mg tablet 01/06 completed disconti nuation of medicati on Not Available Not Available Not Available doxycycli ne hyclate 100 mg tablet TAKE 1 TABLET BY MOUTH TWICE DAILY FOR 10 DAYS 06/30 completed Not Available Not Available Not Available calcitrio l 0.25 mcg capsule TAKE 1 CAPSULE EVERY OTHER DAY DIRECTED 2024 active Not Available Not Available Not Avai lable loratadin e 10 mg tablet TAKE 1 TABLET BY MOUTH EVERY DAY active Not Available Not Available No t Available amoxicill in 875 mg-potass ium clavulana te 125 mg tablet TAKE 1 TABLET BY MOUTH TWICE DAILY FOR 10 DAYS 06/30 completed Not Available Not Available Not Available valsartan 40 mg tablet TAKE 1 TABLET BY MOUTH ONCE DAILY active Not Available Not Available No t Available rosuvasta tin 20 mg tablet Take 1 tablet every day by oral route at bedtime. 2024 active Not Available Not Available Not Avai lable ranolazin e ER 500 mg tablet,ex tended release,1 2 hr TAKE 1 TABLET BY MOUTH EVERY 12 HOURS 06/30 completed Not Available Not Available Not Available Lantus Solostar U-100 Insulin 100 unit/mL (3 mL) subcutane ous pen INJECT 33 UNITS EVERY DAY BY SUBCUTAN EOUS ROUTE AT BEDTIME active Not Available Not Available No t Available Tradjenta 5 mg tablet Take 1 tablet every day by oral route. 2024 active Not Available Not Available Not Avai lable sacubitri l 24 mg-valsar granado 26 mg tablet TAKE 1 TABLET BY MOUTH TWICE DAILY active Not Available Not Available No t Available Accu-Chek Guide test strips Take 1 strip 3 times a day by miscell. route for 30 days. 2024 active Not Available Not Available Not Avai lable Accu-Chek Guide Glucose Meter USE DIRECTED active Not Available Not Available No t Available BD Yovana 2nd Gen Pen Needle 32 gauge x USE DIRECTED WITH INSULIN active Not Available Not Available No t Available OneTouch Delica Plus Lancet 33 gauge USE TO CHECK GLUCOSE THREE TIMES DAILY active Not Available Not Available No t Available Voltaren Arthritis Pain 1 % topical gel APPLY 2 GRAMS TO THE AFFECTED AREA(S) BY TOPICAL ROUTE 4 TIMES PER DAY 2024 active Not Available Not Available Not Abhayai lable Vitals Date Recorded Body height Body mass index (BMI) Body weight Body temperature Oxygen saturation Oxygen saturation in Arterial blood by Pulse oximetry Respiratory rate Pain severity - 0-10 verbal numeric rating [Score] - Reported Heart rate Systolic And Diastolic Provider Name and Address Organization Details Last Updated DateTime 5 175.26 cm 35.6 kg/m2 143709. 46 g 98.1 [degF] 97 % 97 % 18 /min 0 79 /min 128/60 mm[Hg] Sandra Brink [place] - [facility] 5 10:55:05 Social History Question Answer Notes LastModified by Organizat ion Details LastModified Time Tobacco Smoking Status Never Smoker Sandra Brink null, [place] - [facility] 06/30/2024 08:32:09 Do You Have An Advance Directive? No Information n ot available 06/30/2024 Are You Blind Or Do You Have Difficulty Seeing? No Information n ot available 06/30/2024 What Is Your Level Of Caffeine Consumption? Moderate Information not available 06/30/2024 In The 14 Days Before Symptom Onset, Have You Had Close Contact With A Laboratory-confirm ed COVID-19 While That Case Was Ill? No Information n ot available 06/30/2024 In The 14 Days Before Symptom Onset, Have You Had Close Contact With A Person Who Is Under Investigation For COVID-19 While That Person Was Ill? No Information not available 06/30/2024 Have You Been To An Area Known To Be High Risk For COVID-19? No Information not available 06/30/2024 Are You Deaf Or Do You Have Serious Difficulty Hearing? No Information not available 06/30/2024 What Type Of Diet Are You Following? DIABETIC Information n ot available 06/30/2024 Have You Processed Blood Or Body Fluids From An Ebola Virus Disease Patient Without Appropriate PPE? No Information not available 06/30/2024 Do You Reside In Or Have You Traveled To An Area Where Ebola Virus Transmission Is Active? No Information not available 06/30/2024 What Is The Highest Grade Or Level Of School You Have Completed Or The Highest Degree You Have Received? [id number] Information not available 06/30/2024 Have There Been Any Changes To Your Family Or Social Situation? No Information no t available 06/30/2024 What Is The Fluoride Status Of Your Home? Fluoridated Information not available 06/30/2024 Have You Recently Or Are You Planning To Travel To An Area With Zika Virus? No Information not available 06/30/2024 Do You Have A Medical Power Of Oil Tank Car Cleaner? No Information not available 06/30/2024 What Was The Date Of Your Most Recent Tobacco Screening? 01/06/2025 Information not available 01/06/2025 What Is Your Relationship Status? Information not available 06/30/2024 Are You Sexually Active? No Information not available 06/30/2024 Do You Have Smoke And Carbon Monoxide Detectors In Your Home? Yes Information not available 06/30/2024 Are You Passively Exposed To Smoke? No Information no t available 06/30/2024 Has Tobacco Cessation Counseling Been Provided? Yes Information not available 06/30/2024 Do You Have Difficulty Walking Or Climbing Stairs? No Information not available 06/30/2024 Sex: Male Functional Status Question Answer Note LastModified by Organizat ion Details LastModified Time Do you use any illicit or recreational drugs? No Information not available 06/30/2024 Do you or have you ever used any other forms of tobacco or nicotine? No Information not available 06/30/2024 What is your level of alcohol consumption? None Information not available 06/30/2024 Are you currently employed? No Information not available 06/30/2024 Do you have transportation difficulties? No Information not available 06/30/2024 Are you able to walk independently without assistance or assistive devices? YESWOREST Information not available 06/30/2024 Do you have difficulty doing errands alone? No Information not available 06/30/2024 Are you able to care for yourself independently? Yes Information not available 06/30/2024 Do you have difficulty dressing, bathing, grooming, or toileting? No Information not available 06/30/2024 What is your exercise level? Occasional Information not available 06/30/2024 Mental Status Question Answer Note LastModified by Organizat ion Details LastModified Time Do you feel stressed (tense, restless, nervous, or anxious, or unable to sleep at night)? [id number] Information not available 06/30/2024 Do you have difficulty concentrating, remembering or making decisions? No Information no t available 06/30/2024 Family History Nothing Reported. Medical History No medical history recorded. Immunizations Vaccine Type Date Status Note Provider Name and Address Organization Details Recorded Time Tdap 10/27/19 18 completed Not Available [facility] 01/20/2025 10:03:35 Influenza, high-dose, trivalent, PF 01/26/20 19 completed Not Available [facility] 01/20/2025 10:03:35 Influenza, split virus, trivalent, preservative 10/29/19 25 cancelled patient objection Darron Niec APRN [address], [place], [address], [place] - [facility] 10/28/2024 14:24:18 zoster recombinant 10/29/19 25 cancelled patient objection Darron Nice APRN [address], [place], [address], [place] - [facility] 10/28/2024 14:24:18 Past Encounters Encounter ID Performer Location Encounter Start Date Encounter Closed Date Diagnosis/Indication Diagnosis SNOMED-CT Code Diagnosis ICD10 Code Diagnosis IMO Codes Diagnosis Note [id number] Darron Nice APRN [address] [address] 01/06/2025 13:54:25 01/06/2025 15:16:17 Chest pain 98820185 R07.9 [id number] spoke with tiffanie, see tiffanie tomorrow at 9 amif pain returns or worsen return Chronic low back pain 27 9547373 M54.50 G89.29 44691117 voltaren- allergy to naproxen- 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 Type 2 wilton betes mellitus 42442033 E11.9 Z79.4 70439896 stop metformini ncrease lantus to 38 unitskeep log return in 2 weeks with log [id number] Darron Gonzaleztiny [employer] [address] [address] 01/20/2025 10:03:17 01/20/2025 11:23:11 Type 2 diabetes mellitus 82305504 E11.9 Z79.4 10913145 stop metformini ncrease lantus to 45 units, continue to increase lantus by 2 units if adv glucose over 200.if cre improved will restart metformin, if not will start trajenta and refer to endo.keep log return in 2 weeks with log Arterioscl erosis of coronary artery bypass graft 309293028 I25.810 [id number] Uncontroll ed type 2 diabetes mellitus 513351524 E11.65 88933520 stop metforminp t refuses glp1,insul in,jardian ce,insulin pump at this timeincrea se lantus to 45 unitskeep log return in 2 weeks with log Right lowe r quadrant pain 041281230 R10.31 971657 Health Concerns Section Related Observation LastModified by Organization Detai ls LastModified Time None Recorded Concern Status LastModified by Organization Details LastModified Time None Recorded Payers Encounter Date Sequence Insurance Name Policy Number Policy Lacy Covered Member ID Lacy Member ID Guarantor Name 01/20/2025 1 [employer] - GOLD PLUS (MEDICARE REPLACEMENT/A DVANTAGE - HMO) Ovi Escobar [id number] Ovi Escobar Notes Date Note Type Note Provider Name and Address Organization Details Recorded Time 01/20/2025 text/html 69 yr old male presents for a follow up on diabetes. He is seeing cardiology today and having an MRI of his back today. Logs of Bp reading 161/91- 126/57 and blood sugars as high as 569. pt states upper abd pain and would like pancreas and liver looked at due to high glucose and pain. pt states he does not want to try insulin,insulin pump or jardiance at this time Darron Nice, [employer] [address], [place], [address], [place] - [facility] 01/20/2025 11:19:44
--- OUTSIDE RECORDS SUMMARY | 2025-01-20 12:27 | XMS_ITS | Encounter Summary ---
Author Organization [place] [address] Care Team Providers Care Autocad Operator Name Role Phone Renato Rey DO, Viral Primary Care Provider [phone] Ariana Munguia MD Unavailable [phone] Reason for Visit * Reason Onset Date Comments CM- Telephonic Outreach 12/17/2024 CM-Medication Assistance 12/17/2024 Encounter Details Date Type Department Care Team (Late st Contact Info) Description 12/17/2024 Patient Outreach [address] [id number] Allison Angel, JAMISON CM- Telephonic Outreach; CM-Medication Assistance Social History Tobacco Use Types Packs/Day Years Used Date Smoking Tobacco: Never Smokeless Tobacco: Never Alcohol Use Standard Drinks/Week Comments No 0 (1 standard drink = 0.6 oz pur e alcohol) NO [facility] Utilities Answer Date Recorded In the past 12 months has [email or web address], gas, oil, or water [employer] threatened to shut off services in your home? No 01/01/2024 Overall Financial Resource Strain (CARDIA) Answe r Date Recorded How hard is it for you to pa y for the very basics like food, housing, medical care, and heating? Not very hard 07/24/2024 PHQ-2 Answer Date Recorded PHQ-2 Total Score 0 01/01/2024 [facility] [place] of Occupat ional Health - Occupational Stress [...] living? No 07/24/2024 [facility] IP Transportation Answer [...] (3 mL) SubQ Insulin Pen Inject 15 units daily 15 mL 12/17/2024 03/19/2025 documented in this encounter Progress Notes * Allison Angel, JAMISON - 12/17/2024 10:43 AM EDT Patient notified shipment of medication Lantus is ready for fern picker. Advised to fern picker as soon as possible as refrigerator space is limited in the office. Encouraged patient to reach out if having any further concerns or needs. documented in this encounter Plan of Treatment Not on file documented as of this encounter Goals Goal Patient Goal Type Associated Problems Recent Progress Patient-Stated? Author Blood Pressure < 140/90 Blood Pressure 150/80(2024 10:40 AM EDT) Carlee Westbrook CMA BMI (Calculated) < 30 General 36.6(07/19/19 [...] Discontinue Reason Start Date End Da te insulin glargine (LANTUS SOLOSTAR U-100 INSULIN) 100 unit/mL (3 mL) SubQ Insulin Pen Inject 15 units daily. Medication order 05/05/2024 06/02/2024 documented as of this encounter Additional Health Concerns Assessment Noted Time A fall risk assessment has been complete d for the patient 05/20/2024 4:23 PM EDT documented as of this encounter Care Teams Autocad Operator Relationship Specialty Start Date End Date Carlos A Gross DO [address] [place] [phone] PCP - General Family Medicine 06/15/20 Ariana Munguia MD [address] [place] [id number] Internal Medicine-Cardiovascular Disease 04/11/22 documented as of this encounter
--- OUTSIDE RECORDS SUMMARY | 2025-01-20 12:27 | XMS_ITS | Data Portability ---
Author Organization [facility] Address [address] [place] [address] Care Team Providers Care Regional Sales Consultant Name Role Phone SAPPHIRE JIMÉNEZ Referring Provider Assessment Encounter Date Assessment Date Assessment LastModified by Organization Details LastModified Time 10/28/2024 10/28/2024 Patient presente d to office today for their Medicare Annual Wellness Visit. Education was provided on healthy nutrition, including a diet rich in fruits and vegetables, minimizing simple carbohydrates, salt, and saturated fats. Encouraged regular cardiovascular exercise such as walking at least 30 minutes daily, 5 times per week. Emphasized preventive health measures and educated pt on fall prevention and community-based lifestyle interventions to help reduce health risks and promote healthy living. Medicare Preventive Services Check List reviewed and printed for patient. cbuckler Not available 10/28/2024 14:00:57 Plan of Treatment Reminders Order Date Submit Date Provider Last Modified By Organization Details Last Modified Time Details Appointments Follow Up 2024 10:20A M Darron Nice APRN Not available Not available Not available Lab CMP, serum or plasma 2024 025 RAJESH [facility], [address], [place], [place], [address], 01/20/2025 10:56:59 C-peptide , serum 2024 025 RAJESH [facility], [address], [place] [address], [place], [address], 01/20/2025 10:56:58 amylase + lipase, serum 2024 025 RAJESH [facility], [address], [place], [place], [address], 01/20/2025 10:56:58 Referral podiatris t referral 2024 025 RAJESH Gallardo DPM, [address] [place], [address], 11/17/2024 19:05:51 Procedures None recorded. Surgeries None recorded. Imaging US, duplex, abdomen, complete 2024 025 [email or web address] [facility] (Scheduling), [address], [place], [address], 01/20/2025 11:23:11 XR, lumbosacr al spine, 2 or 3 view 2024 025 [facility] (X-Ray), [address], [place], [address], 01/07/2025 10:16:14 electroca rdiogram 2024 025 [facility], [address] [place] [address], [address], 01/06/2025 16:45:44 Medication Orders cephalexi n 500 mg capsule 2024 025 [facility], [address] [place], [address], 11/28/2024 05:02:12 mupirocin 2 % topical ointment 2024 025 [facility], [address] [place], [address], 09/29/2024 16:00:36 doxycycli ne hyclate 100 mg capsule 2024 025 [facility], [address] [place], [address], 10/17/2024 05:01:57 Patient TargetsNo targets recorded. Patient Instructions Encounter Date Encounter Id Patient Instructions Last Modified By Organization Details Last Modified Time 10/28/2024 [id number] advance directives: care instructions [facility] Not available 10/28/2024 14:22:[address] [facility] Not available 10/28/2024 14:22:02 learning about healthy weight [facility] Not available 10/28/2024 14:22:03 body mass index: care instructions [facility] Not available 10/28/2024 14:22:02 preventing falls : care instructions [facility] Not available 10/28/2024 14:22:03 medicare preventive services guide [facility] Not available 10/28/2024 14:22:03 Reason for Referral Contour Stitcher Referral for Ulce r of toe due to type 2 diabetes mellitus Referring Physician: Darron Nice, Family Medicine, Encounter Date: 11/11/2024 Results Created Date Observation Date Name Description Value Unit Range Abnormal Flag Note LastModifiedBy Organization Detail LastModifiedTime 09/26/1909/25/2024 HbA1c (hemo globi n A1c), blood HbA1C 8.6 % Not Available [address], [address], 09/25/2024 15:13:44 11/20/1911/19/2024 right heart jose teriz ation inclu ding measu remen t(s) of oxyge n satur ation and cardi ac outpu t (PROC ) No observ ation record ed. [facility] [address], [place], [address], 11/20/2024 08:56:28 12/02/1912/01/2024 XR, chest , 3 view No observ ation [facility] ed. [facility] [address], [place], [address], 12/02/2024 08:19:30 12/02/1912/01/2024 elect rocar diogr am No observ ation record ed. [facility] [address], [place], [address], 12/02/2024 08:18:41 01/07/20 25 01/06/2025 elect rocar diogr am No observ ation record ed. [address], [place], [address], 01/06/2025 16:17:14 01/08/2001/07/2025 XR, lumbo sacra l spine , 2 or 3 view No observ ation record ed. [facility] [address], [place], [address], 01/12/2025 11:19:20 Result Notes None recorded. Problems Name Problem SNOMED Code Status Onset Date Resolution Date Notes Provider Name and Address Organization Details Recorded Time Type 2 diabetes mellitus 19897256 Active Sandra Brink null, [place] - [facility] 5 08:29:25 Hyperlipidemi a 12936545 Active Sandra Brink null, [place] - [facility] 5 08:29:50 Gastroesophag eal reflux disease 724370899 Active Sandra Brink null, [place] - [facility] 5 08:30:21 Arteriosclero sis of coronary artery bypass graft 211038494 Active Sandra Brink null, [place] - [facility] 5 08:31:20 Chronic systolic heart failure 200959543 Active 2024 Darron Nice, CLASS[employer]IED ADVERTISING SUPERVISOR [address], [place], [address] , [place] - [facility] 5 08:53:26 Hyperparathyr oidism 32676125 Active 2024 Darron Nice, CLASS[employer]IED ADVERTISING SUPERVISOR [address], [place], [address] , [place] - [facility] 5 16:39:10 Problem Notes None recorded. Procedures Surgical History Date Name Laterality Status Provider Name and Address Organization Details Recorded Time 5 Advance Care Planning completed Sandra FREED - [facility] 10/28/2024 14:00:58 Functional Status Assessed completed Sandra FREED - [facility] 10/28/2024 14:00:58 Imaging Results None recorded. Procedure Notes None recorded. Medical Equipment None Reported. Allergies Allergen ID Allergen Name Allergen Category Reaction Reaction Severity Criticality Documentation Date Start Date Code Code System Note Provider Name and Address Organization Details Recorded Time 259903 insulin aspart, human medicatio n other moderate high 06/30/2024 66524 RxNorm state s any insul in at any dose drops his gluco se too much Sandra navarro, [place] - [facility] 5 08:24:14 382082 naproxen medicatio n abdominal pain moderate high 06/30/2024 7258 RxNorm Sandra navarro, [place] - [facility] 5 08:24:28 Medications Name Sig Start Date [...] 2024 active Not Available Not Available Not Alan monique sacubitri l 24 mg-valsar granado 26 mg tablet TAKE 1 TABLET BY MOUTH TWICE DAILY active Not Available Not Available No t Available Accu-Chek Guide test strips Take 1 strip 3 times a day by miscell. route for 30 days. 2024 active Not Available Not Available Not Alan monique Accu-Chek Guide Glucose Meter USE DIRECTED active [...] 2024 active Not Available Not Available Not Alan monique Vitals Date Recorded Body height Respiratory rate Body mass index (BMI) Body weight Body temperature Heart rate Oxygen saturation Oxygen saturation in Arterial blood by Pulse oximetry Systolic And Diastolic Provider Name and Address Organization Details Last Updated DateTime 5 175.26 cm 18 /min 36 kg/m2 630619. 54 g 97.9 [degF] 86 /min 99 % 99 % 106/66 mm[Hg] Isabelle Stears [place] - [facility] 5 15:44:31 Date Recorded Body height Body mass index (BMI) Body weight Provider Name and Address Organization Details Last Updated DateTime 10/28/2024 175.26 cm 36.3 kg/m2 792148.42 g Sandra Brink [place] - [facility] 10/28/2024 14:01:10 Date Recorded Body height Body mass index (BMI) Body weight Heart rate Oxygen saturation Oxygen saturation in Arterial blood by Pulse oximetry Respiratory rate Body temperature Systolic And Diastolic Provider Name and Address Organization Details Last Updated DateTime 5 175.26 cm 36.2 kg/m2 784948. 13 g 82 /min 97 % 97 % 18 /min 98 [degF] 128/74 mm[Hg] Isabelle Stears [place] - [facility] 5 16:01:05 Date Recorded Body height Body mass index (BMI) Body weight Respiratory rate Provider Name and Address Organization Details Last Updated DateTime 01/06/2025 175.26 cm 35.4 kg/m2 820319.17 g 20 /min Sandra Brink [place] - [facility] 01/06/2025 14:06:46 Date Recorded Body height Body mass index (BMI) Body weight Body temperature Oxygen saturation Oxygen saturation in Arterial blood by Pulse oximetry Respiratory rate Pain severity - 0-10 verbal numeric rating [Score] - Reported Heart rate Systolic And Diastolic Provider Name and Address Organization Details Last Updated DateTime 175.26 cm 35.6 kg/m2 851963. 46 g 98.1 [degF] 97 % 97 % 18 /min 0 79 /min 128/60 mm[Hg] Sandra Brink [place] - [facility] 10:55:05 Social History Question Answer Notes LastModified by Organizat ion Details LastModified Time Tobacco Smoking Status Never Smoker Sandra Brink [facility] 06/30/2024 08:32:09 Do You Have An Advance [...] Or The Highest Degree You Have Received? [id number] Information not available 06/30/2024 Have There Been Any Changes To Your Family Or Social Situation? No Information no t available 06/30/2024 What Is The Fluoride Status Of Your Home? Fluoridated Information not available 06/30/2024 Have You Recently Or Are You Planning To Travel To An Area With Zika Virus? No Information not available 06/30/2024 Do You Have A Medical Power Of Director Career Services? No Information not available 06/30/2024 What Was [...] anxious, or unable to sleep at night)? [id number] Information not available 06/30/2024 Do you have difficulty concentrating, remembering or making decisions? No Information no t available 06/30/2024 Family History Nothing Reported. Medical History No medical history recorded. Immunizations Vaccine Type Date Status Note Provider Name and Address Organization Details Recorded Time Tdap 10/27/19 18 completed Not Available [facility] 01/20/2025 10:03:35 Influenza, high-dose, trivalent, PF 01/26/20 19 completed Not Available [facility] 01/20/2025 10:03:35 Influenza, split virus, trivalent, preservative 10/29/19 25 cancelled patient objection Darron Nice APRN [address], [address], [facility] - [facility] 10/28/2024 14:24:18 zoster recombinant 10/29/19 25 cancelled patient objection Darron Nice APRN [address], [place], [address], [facility] - [facility] 10/28/2024 14:24:18 Past Encounters Encounter ID Performer Location Encounter Start Date Encounter Closed Date Diagnosis/Indication Diagnosis SNOMED-CT Code Diagnosis ICD10 Code Diagnosis IMO Codes Diagnosis Note [id number] Darron Nice APRN [address] [address] 06/30/2024 07:58:40 06/30/2024 09:07:31 Body mass index 30+ - obesity 699277187 Z68.35 317873 35.7 Obesity 981456741 E66.9 Type 2 wilton betes mellitus 31327011 E11.9 Z79.4 71236213 Hyperlipidemia 34523566 E78.49 1960743 Arterioscl erosis of coronary artery bypass graft 259012079 I25.810 13931096 Chronic sy stolic heart failure 181291620 I50.22 020672 Family his tory of malignant neoplasm 119425736 Z80.9 372607 [id number] Darron Nice [address] [address] 07/11/2024 12:51:15 07/11/2024 13:42:43 Arteriosclerosis of coronary artery bypass graft 345652860 I25.810 30264366 cardiology sunday at 1 pm Chronic sy stolic heart failure 966517139 I50.22 871590 if symptoms worsen or do not improve return Type 2 wilton betes mellitus 58577708 E11.9 Z79.4 48087962 increase lantus to 30 units dailytrage ntastop glimepirid e [id number] Darron Nice [address] [address] 07/31/2024 11:14:06 07/31/2024 11:57:50 Edema of lower extremity 889396277 R60.0 07733 pt refuses to take anymore diuretics due to going to bathroom freqif symptoms worsen or no improvemen t return or go to ed Dyspnea 423180940 R06.02 96275 spoke with tiffanie- he will look at echo and call back Weight increased 9183175 00 R63.5 R60.9 2113439732 refuses diuretics and glp1 [id number] Darron Nice [address] [address] 09/25/2024 14:05:07 09/25/2024 15:15:05 Type 2 diabetes mellitus 76965790 E11.9 Z79.4 29030457 continue meds and diet Chronic low back pain 27 2632566 M54.50 G89.29 99411393 voltaren- allergy to naproxen- nausea [id number] Darron Nice [address] [address] 09/29/2024 15:28:16 09/29/2024 15:51:11 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 0046133718 59660 E11.621 L97.521 47654775 keep area clean and dryclean with soap and waterapply ointmentke ep coveredant ibiotics as orderedif worsen or no improvemen t return [id number] Darron Nice APRN [address] [address] 10/28/2024 13:45:02 10/28/2024 14:22:00 Adult health examination 055370801 Z00.00 Depression screening 171 734852 Z13.31 A depression screening was completed via a standardiz ed screening tool. 5 minutes were spent discussing depression screening results and risk factors. Examinatio n of blood pressure 193228118 Z01.30 labs next visit Diet education 97383040 Z71.3 Counseling 792751219 Z71 .82 Exercise counseling . Patient encouraged to exercise 30 minutes 5 days a week. At [facility] ed risk for falls 068861739 Z91.81 STEADI FAST screening score of __0___. Advance care planning 71 0248319 Z71.89 Obese class II 624187876 1 82743 E66.812 Z68.36 4105520 Body mass index 30+ - obesity 172567331 Z68.36 418126 35.7 Influenza vaccination declined 385475521 Z28.21 9331467530 Hepatitis C screening declined 7419014153 5105 Z53.20 7602674735 Screening for osteoporosis 414637496 Z13.820 167114 Chronic ba ck pain greater than three months duration 0979064132 02 M54.9 G89.29 8556804 voltaren- allergy to naproxen- nauseapt states he has tried everything does not want to do anything cause it cant be fixed, it arthritis and he doesn't want to waste time or money [id number] Darron Nice APRN [address] [address] 11/11/2024 15:35:41 11/11/2024 16:21:21 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 9226935803 88190 E11.621 L97.521 91127122 keep area clean and dryclean with soap and waterapply ointmentke ep coveredant ibiotics as orderedif worsen or no improvemen t return [id number] Darron GonzalezBRIELLE franks [address] [address] 01/06/2025 13:54:25 01/06/2025 15:16:17 Chest pain 11432916 R07.9 [id number] spoke with tiffanie, see tiffanie tomorrow at 9 amif pain returns or worsen return Chronic low back pain 27 6040783 M54.50 G89.29 16185562 voltaren- allergy to naproxen- 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 Type 2 wilton betes mellitus 95459155 E11.9 Z79.4 94700837 stop metformini ncrease lantus to 38 unitskeep log return in 2 weeks with log [id number] Darron BrownBRIELLE santoyo [address] [address] 01/20/2025 10:03:17 01/20/2025 11:23:11 Type 2 diabetes mellitus 89838759 E11.9 Z79.4 73030039 stop metformini ncrease lantus to 45 units, continue to increase lantus by 2 units if adv glucose over 200.if cre improved will restart metformin, if not will start trajenta and refer to endo.keep log return in 2 weeks with log Arterioscl erosis of coronary artery bypass graft 004274439 I25.810 82754028 Uncontroll ed type 2 diabetes mellitus 394341809 E11.65 93975984 stop metforminp t refuses glp1,insul in,jardian ce,insulin pump at this timeincrea se lantus to 45 unitskeep log return in 2 weeks with log Right lowe r quadrant pain 334436439 R10.31 491721 Health Concerns Section Related Observation LastModified by Organization Detai ls LastModified Time None Recorded Concern Status LastModified by Organization Details LastModified Time None Recorded Advance Directives Directive N: Payers Insurance Date Sequence Insurance Name Policy Number Policy Lacy Covered Member ID Lacy Member ID Guarantor Name 01/18/2025 1 [employer] - GOLD PLUS (MEDICARE REPLACEMENT/A DVANTAGE - HMO) Ovi Escobar [id number] Ovi Escobar Notes Date Note Type Note Provider Name and Address Organization Details Recorded Time 5 text/html 68 year old male who presents to the office with concerns ofopen sores on bottom of right foot and right great toewith diabetes- pt started a couple days after last visit when he was moving his daughter Darron Nice, CLASSIFIED ADVERTISING SUPERVISOR [address], [place], [address], [place] - [facility] 09/29/2024 16:03:38 5 text/html Medicare Annual Wellness VisitReported by PatientSocial/Behavioral HistoryFor physical activity, patient reportsdoes not exercise on a regular basis,decreased physical activity,poor physical condition, anddeconditioned due to sedentary lifestyle. For diet and nutrition, patient reportsdiscussed portion controlanddiscussed diet improvement. For fracture risk, patient reportsno history of fractures,no recent explained fracture,no sudden unexplained fractures, andno previous musculoskeletal injuries.Mental Status:For depression risk, patient reportsnever feels sad, empty, or tearful,no loss of interest in activities,no significant changes in weight,no sleep disturbances or insomnia,no agitation,no loss of energy,no feelings of worthlessness or guilt,no thoughts of suicide,no history of depression, andno history of mood disorders. For orientation, patient reportsno disorientation to time,no disorientation to date, andno disorientation to place. For concentration and memory, patient reportsno decreased concentrating ability,no memory lapses or loss, anddoes not forget words. For speech/motor difficulties, patient reportsno speech difficulties,no difficulty expressing formulated concepts,no difficulty with fine manipulative tasks,no difficulty writing/copying,no slowed reaction time, anddoes not knock things over when trying to pick them up.Functional AbilityFor hearing, patient reportsloss of hearing: in both ears. For vision, patient reportsworsening(eye glasses). For activities of daily living, patient reportsable to bathe with limited or no assistance,able to contol urination and bowels,able to dress with limited or no assistance,able to feed self with limited or no assistance,able to get out of chair or bed with limited or no assistance,able to groom with limited or no assistance, andable to toilet with limited or no assistance. For instrumental activities of daily living, patient reportsable to do house work with limited or no assistance,able to grocery shop with limited or no assistance,able to manage medications with limited or no assistance,able to manage money with limited or no assistance,able to prepare meals with limited or no assistance, andable to use the phone with limited or no assistance. For falls risk assessment, patient reportsno frequent falls while walking,no fall in the past year,no fall since last visit, andno dizziness/vertigo. For home safety, patient reportsno unsafe cristopher hazzards,no unsafe stairs,no unsafe gas appliances,working smoke/co detectors,use of seatbelts,no vision or hearing loss while driving,no fire arms, andgood lighting in the home. For current level of pain, patient reportspain present. 68 yr old male presents for medicare annual wellness exam. pt states doing well- chronic back pain Mavisrob Nice APRN [address], [place], [address], [facility] - [facility] 10/28/2024 14:26:37 5 text/html ROS as noted in the HPI 68 year old male who presents to the office today with concerns ofsore on left 4th toe- no injury noted has been using mupirocin cream with no relief. Darron Nice APRN [address], [place], [address], [place] - [facility] 11/11/2024 16:42:30 5 text/html Diabetes F/UReported by PatientHPIFor context, patient reportsnormal range of home blood sugars (in the low 100s),seeing eye doctor regularly, andchecking feet regularly. For associated symptoms, patient reportsno weight gain,no weight loss,no dizziness,no sweats,no headaches,no confusion,no increased thirst,no increased appetite,no increased urination,no blurred vision,no numbness of feet, andno calluses on feet. 69 yr old male presents for a diabetic follow up. He has also had 2 episodes of chest pain when he lays down recently. He describes the pain as sharp, denies vomiting or diaphoresis. He states nitro seemed to help one of the episodes. Darron Nice APRN [address], [place], [address], [facility] - [facility] 01/06/2025 16:50:50 5 text/html 69 yr old male presents for [...] pump or jardiance at this time Darron Nice APRN [address], [place], [address], [place] - [facility] 01/20/2025 11:19:44
--- OUTSIDE RECORDS SUMMARY | 2025-01-20 12:30 | XMS_ITS | Encounter Summary ---
Author Organization [place] [address] Care Team Providers Care Shift Mechanic Name Role Phone Renato Rey DO [facility] Provider [phone] Ariana Munguia MD Unavailable [phone] Reason for Visit * Reason Onset Date Comments Medication Management 10/15/2024 Lantus Encounter Details Date Type Department Care Team (Late st Contact Info) Description 10/15/2024 Telephone [facility] [place] [address] [place] [address] Carlos A Gross DO [address] [place] [address] Medication Management (Lantus ) Social History Tobacco Use Types Packs/Day Years Used Date Smoking Tobacco: Never Smokeless Tobacco: Never Alcohol Use Standard Drinks/Week Comments No 0 (1 standard drink = 0.6 oz pur e alcohol) NO [facility] Utilities Answer Date Recorded In the [...] Date Recorded PHQ-2 Total Score 0 01/01/2024 [facility] [place] [facility] Occupat ional Health - Occupational Stress [...] things needed for daily living? No [facility] IP Transportation Answer D ate Recorded In [...] encounter Miscellaneous Notes * Telephone Encounter - Thelma Russell RN - 10/17/2024 1:24 PM EDT Called patient, he was checking to see if his shipment arrived yet. Shipment is in the fridge, advised it could be picked up at his convenience. Patient appreciative, no other needs at this time. States he will pick it up next week. * Telephone Encounter - Elif Lan - 10/15/2024 12:17 PM EDT Select the most appropriate reason for this telephone message: Other Who is calling (name & relationship to patient if not the patient): Patient What is needed OR why are they calling: pt says that office helps him get this med, he would like to talk to someone about this : insulin glargine (LANTUS SOLOSTAR U-100 INSULIN) 100 unit/mL (3 mL) SubQ Insulin Pen 15 mL 0 09/02/2024 01/02/2025 Sig: Inject 15 ml per day Class: Sample Notes to Pharmacy: Medication assistance When is this needed by: today Where does this information need to go: to PCP Return Method of Communication: Phone Call Additional information:N/A documented in this encounter Plan of Treatment Not on file documented as of this encounter Goals Goal Patient Goal Type Associated Problems Recent Progress Patient-Stated? Author Blood Pressure < 140/90 Blood Pressure 150/80(2024 10:40 AM EDT) No Carlee Rose CMA BMI (Calculated) < 30 General 36.6(07/19/19 25 10:40 AM EDT) Carlee Westbrook CMA Maintain a healthy diet, exercise regularly and maintain an ideal body weight General No Elza Mckeon, RMA <Enter Goal> General No Allison Angel, [...] documented as of this encounter Care Teams Shift Mechanic Relationship Specialty Start Date End Date Carlos A Gross DO [address] [place] [address] PCP - General Family Medicine 06/15/20 Ariana Munguia MD [address] [place] [id number] Internal Medicine-Cardiovascular Disease 04/11/22 documented as of this encounter
--- OUTSIDE RECORDS SUMMARY | 2025-01-20 12:30 | XMS_ITS | Continuity of Care Document ---
Author Organization [facility] Address [address] [place] [address] Care Team Providers Care Collet Driller Name Role Phone SAPPHIRE JIMÉNEZ Referring Provider Assessment No assessment recorded. Plan of Treatment Reminders Order Date Submit Date Provider Last Modified By Organization Details Last Modified Time Details Appointments Follow Up 2024 10:20A M Darron Nice APRN Not available Not available Not available Lab None recorded. Referral None recorded. Procedures None recorded. Surgeries None recorded. Imaging XR, lumbosacr al spine, 2 or 3 view 2024 [facility] (X-Ray), [address] [place] [address] [address], [place], [address], 01/07/2025 10:16:14 electroca rdiogram 2024 025 [facility], [address] [place] [address], [phone], 01/06/2025 16:45:44 Medication Orders None recorded. Patient TargetsNo targets recorded. Patient InstructionsNo instructions recorded. Reason for Referral None Reported. Results Created Date Observation Date Name Description Value Unit Range Abnormal Flag Note LastModifiedBy Organization Detail LastModifiedTime 01/07/2001/06/2025 jasmyne rodriguez am No observ ation record ed. [address], [address], 01/06/2025 16:17:14 01/08/20 25 01/07/2025 XR, lumbo sacra l spine , 2 or 3 view No observ ation record ed. [facility] [address], [place], [address], 01/12/2025 11:19:20 Result Notes None recorded. Problems Name Problem SNOMED Code Status Onset Date Resolution Date Notes Provider Name and Address Organization Details Recorded Time Type 2 diabetes mellitus 19575002 Active Sandra Brink null, [place] - [facility] 5 08:29:25 Hyperlipidemi a 63675898 Active Sandra Brink null, [place] - [facility] 08:29:50 Gastroesophag eal reflux disease 098625799 Active Sandra Brink null, [place] - [facility] 08:30:21 Arteriosclero sis of coronary artery bypass graft 011676490 Active Sandra Brink null, [place] - [facility] 5 08:31:20 Chronic systolic heart failure 095084787 Active 2024 Darron Nice, [employer] [address], [place], [address] , [place] - [facility] 5 08:53:26 Hyperparathyr oidism 06941135 Active 2024 Darron Nice, [employer] [address], [place], [address] , [place] - [facility] 5 16:39:10 Problem Notes None recorded. Procedures Surgical History Date Name Laterality Status Provider Name and Address Organization Details Recorded Time 5 Advance Care Planning completed Sandra Brink [place] - [facility] 10/28/2024 14:00:58 5 Functional Status Assessed completed Sandraharitha Brink [place] - [facility] 10/28/2024 14:00:58 Imaging Results None recorded. Procedure Notes None recorded. Medical Equipment None Reported. Allergies Allergen ID Allergen Name Allergen Category Reaction Reaction Severity Criticality Documentation Date Start Date Code Code System Note Provider Name and Address Organization Details Recorded Time 705320 insulin aspart, human medicatio n other moderate high 06/30/2024 75843 RxNorm state s any insul in at any dose drops his gluco se too much Sandra [place] null, [place] - [facility] 5 08:24:14 110796 naproxen medicatio n abdominal pain moderate high 06/30/2024 7258 RxNorm [place] - [facility] 5 08:24:28 Medications Name Sig [...] active Not Available Not Available Not Avai labmagaly loratadin e 10 mg tablet TAKE 1 [...] 2024 active Not Available Not Available Not Avarmin labmagaly ranolazin e ER 500 mg tablet,ex tended [...] Not Available Not Available Not Avai lable Vitals Date Recorded Body height Body mass index (BMI) Body weight Respiratory rate Provider Name and Address Organization Details Last Updated DateTime 01/06/2025 175.26 cm 35.4 kg/m2 860692.17 g 20 /min Sandra Brink [place] - [facility] 01/06/2025 14:06:46 Social History Question Answer Notes LastModified by Organizat ion Details LastModified Time Tobacco Smoking Status Never Smoker Sandra Brink [facility], [place] - [facility] 06/30/2024 08:32:09 Do You [...] Or The Highest Degree You Have Received? [id number] Information not available 06/30/2024 Have There Been Any Changes To Your Family Or Social Situation? No Information no t available 06/30/2024 What Is The Fluoride Status Of Your Home? Fluoridated Information not available 06/30/2024 Have You Recently Or Are You Planning To Travel To An Area With Zika Virus? 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 [id number] Information not available 06/30/2024 Do you have difficulty concentrating, remembering or making decisions? No Information no t available 06/30/2024 Family History Nothing Reported. Medical History No medical history recorded. Immunizations Vaccine Type Date Status Note Provider Name and Address Organization Details Recorded Time Tdap 10/27/19 18 completed Not Available [facility] 01/20/2025 10:03:35 Influenza, high-dose, trivalent, PF 01/26/20 19 completed Not Available [facility] 01/20/2025 10:03:35 Influenza, split virus, trivalent, preservative 10/29/19 25 cancelled patient objection Darron Nice APRN [address], [place], [address], [place] - [facility] 10/28/2024 14:24:18 zoster recombinant 10/29/19 25 cancelled patient objection Darron Nice APRN [address], [place], [address], [place] - [facility] 10/28/2024 14:24:18 Past Encounters Encounter ID Performer Location Encounter Start Date Encounter Closed Date Diagnosis/Indication Diagnosis SNOMED-CT Code Diagnosis ICD10 Code Diagnosis IMO Codes Diagnosis Note [id number] Darron Nice APRN [address] [address] 01/06/2025 13:54:25 01/06/2025 15:16:17 Chest pain 04606961 R07.9 [id number] spoke with tiffanie, see tiffanie tomorrow at 9 amif pain returns or worsen return Chronic low back pain 27 7712257 M54.50 G89.29 82104606 voltaren- allergy to naproxen- 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 Type 2 wilton betes mellitus 99383175 E11.9 Z79.4 29352788 stop metformini ncrease lantus to 38 unitskeep log return in 2 weeks with log Health Concerns Section Related Observation LastModified by Organization Detai ls LastModified Time None Recorded Concern Status LastModified by Organization Details LastModified Time None Recorded Payers Encounter Date Sequence Insurance Name Policy Number Policy Lacy Covered Member ID Lacy Member ID Guarantor Name 01/06/2025 1 [employer] - GOLD PLUS (MEDICARE REPLACEMENT/A DVANTAGE - HMO) Ovi Escobar [id number] Ovi Escobar Notes Date Note Type Note Provider Name and Address Organization Details Recorded Time 01/06/2025 text/html Diabetes F/UReported by PatientHPIFor context, patient [...] to help one of the episodes. Darron Nice, [employer] [address], [place], [address], [place] - [facility] 01/06/2025 16:50:50
--- OUTSIDE RECORDS SUMMARY | 2025-01-20 12:30 | XMS_ITS | Encounter Summary ---
Author Organization [facility] Address [address] [place] [address] Care Team Providers Care Web Applications Developer Name Role Phone Renato Rey DO, Viral Primary Care Provider Ariana Munguia MD Unavailable [phone] Allison Angel RN Unavailable Unavailable Reason for Visit * Reason Comments Medication Refill Encounter Details Date Type Department Care Team (Late st Contact Info) Description 08/19/2024 Refill [facility] [address] [place] [address] Abel Hernandez MD [address] [place] [address] Medication Refill Social History Tobacco Use Types Packs/Day Years Used Date Smoking Tobacco: Never Smokeless Tobacco: Never Alcohol Use Standard Drinks/Week Comments No 0 (1 standard drink = 0.6 oz pur e alcohol) NO [facility] Utilities Answer Date Recorded In [...] Date Recorded PHQ-2 Total Score 0 01/01/2024 [facility] [place] [facility] Occupat ional [facility] - Occupational Stress [...] things needed for daily living? No 07/24/2024 [facility] IP Transportation Answer D ate Recorded In [...] of Assessment Author No 02/20/2023 5:25 PM Godfrey Maddox RMA * Does this person have serious [...] No 02/20/2023 5:25 PM EST [place] RMA documented as of this encounter Mental Status * Because of a physical, mental or emotional condition, does this person have serious difficulty concentrating, remembering or making decisions? Answer Entry Date Author No 02/20/2023 5:25 PM EST [place]aman RMA documented in this encounter Plan of [...] documented as of this encounter Care Teams Web Applications Developer Relationship Specialty Start Date End Date Carlos A Gross DO [address] [place] [phone] PCP - General Family Medicine 06/15/20 Ariana Munguia MD [address] [place] [id number] Internal Medicine-Cardiovascular Disease 04/11/22 Allison Angel, [employer] Registered Nurse 11/28/23 09/01/24 documented as of this encounter
--- OUTSIDE RECORDS SUMMARY | 2025-01-20 12:30 | XMS_ITS | Continuity of Care Document ---
Author Organization [facility] Address [address] [place] [address] Phone Care Team Providers Care Ux Design Manager Name Role Phone Gross V, DO, Viral Primary Care Provider Sapphire Munguia MD Unavailable [phone] Encounters Date Type Department Care Team Description 01/19/20 25 Refill [facility] [place] [address] [address] Gross, Viral V, DO Medication Refill 12/29/19 25 Refill [facility] [place] [address] [address] Gross, Viral V, DO Medication Refill 12/18/19 25 Patient Outreach SEP [address] [address] Allison Angel, RN CM- Telephonic Outreach; CM-Medication Assistance 12/13/19 25 Telephone [facility] [place] [address] [address] Gross, Viral V, DO Follow Up (lantus) 11/16/19 25 Refill [facility] [place] [address] [address] Gross, Viral V, DO Medication Refill 11/05/19 25 Refill [facility] [place] [address] [place] [address] Gross, Viral V, DO Medication Refill 11/04/19 [address] [address] Gross, Viral V, DO Refill (metFORMIN (GLUCOPHAGE XR) 500 mg Oral ER 24 hr tablet ) 10/17/19 [address] [address] Gross, Viral V, DO Medication Refill 10/16/19 [address] [address] Gross, Viral V, DO Medication Management (Lantus ) 10/08/19 25 Refill [facility] [place] [address] [place] [phone] Sapphire Munguia MD Medication Refill 10/01/19 25 Refill [facility] [place] [address] [place] [address] Rd [address] [place] [phone] Sapphire Munguia MD Medication Refill 09/19/19 [address] [address] Gross, Viral V, DO Medication Refill 09/03/19 25 12:30 PM EDT Clinical Support [address] [address] Allison Angel RN Uncontrolled type 2 diabetes mellitus with hyperglycemia (HCC) (Primary Dx); CHF (congestive heart failure), NYHA class I, acute on chronic, combined (HCC); Enrolled in chronic care management 09/03/19 25 Refill [facility] Neph[facility] [place] [address] [place] [address] Abel Hernandez MD Medication Refill 08/28/19 25 Orders Only [facility] [address] [place] [address] Gross, Viral V, DO Screening for cancer of the rectum; Screen for colon cancer 08/20/19 25 Refill [facility] NEPHROLOGY [place] [address] [facility] [place] [address] Abel Hernandez MD Medication Refill 08/09/19 25 Telephone [facility] [place] [address] [place] [address] Gross, Viral V, DO Medication Management (pt needing med from office) 07/29/19 25 Patient Outreach [facility] [place] [place] [address] Allison Angel, RN CM- Telephonic Outreach; CM-Medication Assistance 07/25/19 8:30 AM EDT Clinical Support [facility] [place] [facility] [address] [place] [address] Allison Angel, JAMISON Uncontrolled type 2 diabetes mellitus with hyperglycemia (HCC) (Primary Dx); CHF (congestive heart failure), NYHA class I, acute on chronic, combined (HCC); Enrolled in chronic care management 07/19/19 11:30 AM EDT - 07/19/19 11:59 PM EDT Hospital Encounter [facility] [place] [place] [address] Stage 3a chronic kidney disease (HCC); Vitamin D deficiency; Chronic kidney disease-mineral and bone disorder Discharge Disposition: Home or Self Care 07/19/19 10:30 AM EDT Office Visit [facility] NEPHROLOGY [address] [place] [address] Abel Hernandez MD Stage 3a chronic kidney disease (HCC) (Primary Dx); Chronic kidney disease-mineral and bone disorder; HTN (hypertension), benign 07/09/19 25 Refill [facility] [place] [place] [address] Renato Viral V, DO Medication Refill 07/08/19 25 1:15 PM EDT Clinical Support [facility] [place] [address] [place] [address] Allison Angel, RN Uncontrolled type 2 diabetes mellitus with hyperglycemia (HCC) (Primary Dx); CHF (congestive heart failure), NYHA class I, acute on chronic, combined (HCC); Enrolled in chronic care management 07/06/19 25 Refill [facility] [place] [address] [facility] [address] [place] [address] Sapphire Munguia MD Medication Refill 07/03/19 25 Refill [facility] [place] [facility] [address] [place] [address] Gross, Viral V, DO Medication Refill 06/28/19 25 Telephone [facility] [place] [address] [place] [address] Gross, Viral V, DO Other (bw orders needing faxed) 06/27/19 25 Refill [facility] [address] [facility] [address] Omi Daly, DO Medication Refill 06/27/19 25 Refill SEP [address] [place] [address] Gross, Viral V, DO Medication Refill 06/26/19 25 Refill SE[facility] [address] [place] [address] Oswaldo Harry MD Medication Refill 06/21/19 25 Telephone [facility] [place] [address] [place] [phone] Sapphire Munguia MD Patient Question (Pt returning your call) 06/17/19 25 4:40 PM EDT [facility] [address] [place] [address] Oswaldo Harry MD Acute bacterial sinusitis (Primary Dx) 06/17/19 25 Refill [facility] [place] [place] [address] Gross, Viral V, DO Medication Refill 06/12/19 25 Refill SEP [facility] [address] [place] [address] Gross, Viral V, DO Medication Refill 06/06/19 Telephone [facility] [place] [place] [address] Gross, Viral V, DO Other (med ) 06/06/19 11:15 AM EDT Clinical Support [facility] [place] [place] [address] Allison Angel RN Uncontrolled type 2 diabetes mellitus with hyperglycemia (HCC) (Primary Dx); CHF (congestive heart failure), NYHA class I, acute on chronic, combined (HCC); Enrolled in chronic care management 05/29/19 Patient Outreach [address] [place] [address] Allison Angel RN CM- Telephonic Outreach; CM-Medication Assistance (Lantus) 05/21/19 4:30 PM EDT Office Visit [facility] [place] [place] [address] Gross, Viral V, DO Uncontrolled type 2 diabetes mellitus with hyperglycemia (HCC) (Primary Dx); Pure hypercholesterolemia; Seasonal allergic rhinitis due to pollen; Acute bronchitis, unspecified organism; Facial rash 05/17/19 Telephone [facility] [place] [place] [address] Gross, Viral V, DO Refill (clobetasol) 05/08/19 [address] [address] Gross, Viral V, DO Medication Refill 05/06/19 10:15 AM EST Office [place] [address] Sapphire Munguia MD ASHD (arteriosclerotic heart disease) (Primary Dx); Dyslipidemia associated with type 2 diabetes mellitus (HCC); S/P CABG x 3 05/05/19 Patient Outreach [address] [place] [address] Allison Angel RN CM- Telephonic Outreach; CM-Medication Assistance 05/01/19 25 Refill [facility]P [place] [address] Renato Viral V, DO Medication Refill 04/22/19 25 Telephone [facility] [place] [address] Renato Viral V, DO Medication Management ( Disp Refills Start End /insulin glargine (LANTUS SOLOSTAR U-100 INSULIN) 100 unit/mL (3 mL) SubQ Insulin Pen - - 12/19/2023 - /Sig - Route: Subcutaneous (Inject under the skin) 15 Units nightly. - Subcutaneous //) 04/16/19 25 Telephone [facility] [place] [id number] Sapphire Munguia MD Cardiology Clearance 04/15/[address] [address] Dianne Dai RMA Forms 04/08/19 25 1:00 PM EST [facility] [address] Carlos A Gross V, DO Tinea corporis (Primary Dx); Acute on chronic systolic congestive heart failure (HCC); Class 2 severe obesity due to excess calories with serious comorbidity and body mass index (BMI) of 35.0 to 35.9 in adult ([facility]); Stage 3b chronic kidney disease (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) (Primary Dx); CHF (congestive heart failure), NYHA class I, acute on chronic, combined ([facility]); Enrolled in chronic care management 03/01/20 24 Refill [facility] [place] 405 [facility] [place] [address] Gross, Viral V, DO Medication Refill 02/15/20 24 Telephone [facility] [place] [facility] [address] [place] [address] Gross, Viral V, DO Results (X-Ray) 02/13/20 24 2:11 PM EST - 02/13/20 24 11:59 PM EST Hospital Encounter [facility] [address] [place] [address] Fluid retention in legs; CHF (congestive heart failure), NYHA class I, acute on chronic, combined (HCC); Acute on chronic systolic congestive heart failure (HCC) Discharge Disposition: Home or Self Care 02/13/20 2:40 PM EST Office Visit [facility] [place] [place] [address] Gross, Viral V, DO Fluid retention in legs (Primary Dx); CHF (congestive heart failure), NYHA class I, acute on chronic, combined (HCC); Acute on chronic systolic congestive heart failure (HCC); Well adult exam 02/13/20 24 9:00 AM EST Clinical Support [facility] [place] [place] [address] Allison Angel RN Uncontrolled type 2 diabetes mellitus with hyperglycemia ([facility]) (Primary Dx); CHF (congestive heart failure), NYHA class I, acute on chronic, combined (HCC) 02/11/20 24 8:31 AM EST - 02/11/20 24 11:59 PM EST Hospital Encounter [facility] [place] [facility] [address] [facility] [place] [address] CHF (congestive heart failure), NYHA class I, acute on chronic, combined (HCC) Discharge Disposition: Home or Self Care 02/01/20 24 Orders Only [facility] [place] 405 [facility] [place] [address] Juan Carlos Su MA CHF (congestive heart failure), NYHA class I, acute on chronic, combined (HCC) (Primary Dx) 01/31/20 24 Telephone [facility] [place] [address] [place] [address] Gross, Viral V, DO Medication Management (Lasix) 01/24/20 24 Refill [facility] [place] [address] [facility] [place] [address] Gross, Viral V, DO Medication Refill 01/22/20 24 Patient Outreach [facility] [address] [place] [address] Sasha Messer RN CM-Medication Assistance 01/14/20 10:10 AM EST Office Visit [facility] [place] [address] [place] [address] Gross, Viral V, DO Seasonal allergic rhinitis due to pollen (Primary Dx); CHF (congestive heart failure), NYHA class I, acute on chronic, combined (HCC); Acute bronchitis, unspecified organism 01/14/20 24 9:00 AM EST Clinical Support [facility] [place] [address] [place] [address] [place] Angel, JAMISON Uncontrolled type 2 diabetes mellitus with hyperglycemia (HCC) (Primary Dx); CHF (congestive heart failure), NYHA class I, acute on chronic, combined (HCC) 01/08/20 24 10:30 AM EDT Clinical Support [facility] [place] [address] [place] [address] Allison Angel, RN Uncontrolled type 2 diabetes mellitus with hyperglycemia (HCC) (Primary Dx); CHF (congestive heart failure), NYHA class I, acute on chronic, combined (HCC) 01/04/20 24 Patient Outreach [facility] [address] [place] [address] Nicki Michelle Referral 01/04/20 Patient Outreach [facility] [address] Appointment [place] [address] Makenzie Mullen, JAMISON Hospital Follow Up; Care Transition; CM-Resource Coordination 01/04/20 Patient Outreach [facility] [address] Appointment Location [place] [id number] Cande Petty, JAMISON Hospital Follow Up 01/04/20 11:20 AM EDT Office Visit [facility] [place] [facility] [address] [place] [address] Gross, Viral V, DO CHF (congestive heart failure), NYHA class I, acute on chronic, combined (HCC) (Primary Dx); Acute on chronic systolic congestive heart failure (HCC); Stage 3 chronic kidney disease, unspecified whether stage 3a or 3b CKD (HCC) 01/04/20 10:45 AM EDT Office Visit [facility] [address] [place] [address] Abel Hernandez MD Stage 3a chronic kidney disease (HCC) (Primary Dx); Chronic kidney disease-mineral and bone disorder 12/31/19 7:05 PM EDT - 01/03/20 11:44 AM EDT Hospital Encounter [facility] [address] [place], [place] [id number] Momo Castellanos MD CHF (congestive heart failure), NYHA class I, acute on chronic, combined (HCC) Discharge Disposition: Home or Self Care 01/01/20 Orders Only [facility] Nephrology [place] [address] [place] [address] Abel Hernandez MD Stage 3a chronic kidney disease (HCC) (Primary Dx); Vitamin D deficiency 12/31/19 Travel 12/31/19 12:30 PM EDT - 12/31/19 5:52 PM EDT Emergency [facility] [address] [place] [address] Sixto Jose MD Cho, Soung H, MD Acute on chronic systolic congestive heart failure (HCC) (Primary Dx) Discharge Disposition: Still a Patient 12/31/19 Telephone [facility] [place] [address] [place] [address] Gross, Viral V, DO 911/Red Flag (Severely sob) 12/25/19 24 Telephone [facility] [place] [address] Gross, Viral V, DO Results 12/24/19 12:54 PM EDT - 12/24/19 11:59 PM EDT Hospital Encounter [facility] [address] [place] [id number] Emg, Akbar Edg Peripheral polyneuropathy (Primary Dx); Numbness and tingling of left arm and leg; Numbness and tingling of right arm and leg; Generalized osteoarthritis of multiple sites; Left carpal tunnel syndrome Discharge Disposition: Home or Self Care 12/19/19 24 Orders Only [facility] [place] [address] Gross, Viral V, DO Stage 3 chronic kidney disease, unspecified whether stage 3a or 3b CKD (HCC) (Primary Dx); Uncontrolled type 2 diabetes mellitus with hyperglycemia (HCC) 12/12/19 24 2:25 PM EDT - 12/12/19 24 11:59 PM EDT Hospital Encounter [facility] [address] [place] [address] Uncontrolled type 2 diabetes mellitus with hyperglycemia (HCC); Gastroesophageal reflux disease with esophagitis, unspecified whether hemorrhage; CHF (congestive heart failure), NYHA class I, acute on chronic, combined (HCC) Discharge Disposition: Home or Self Care 12/12/19 24 Telephone [facility] [place] [address] Gross, Viral V, DO Results (Chest xray) 12/11/19 24 3:41 PM EDT - 12/11/19 24 11:59 PM EDT Hospital Encounter [facility] [address] [place] [address] CHF (congestive heart failure), NYHA class I, acute on chronic, combined (HCC) Discharge Disposition: Home or Self Care 12/11/19 24 2:00 PM EDT [facility] [address] [place], RN Uncontrolled type 2 diabetes mellitus with hyperglycemia ([facility]) (Primary Dx); CHF (congestive heart failure), NYHA class I, acute on chronic, combined (HCC) 12/11/19 24 1:40 PM EDT Office Visit [facility] 405 [place] [address] Gross, Viral V, DO CHF (congestive heart failure), NYHA class I, acute on chronic, combined (HCC) (Primary Dx); Uncontrolled type 2 diabetes mellitus with hyperglycemia (HCC); Gastroesophageal reflux disease with esophagitis, unspecified whether hemorrhage 12/10/19 24 Refill [facility] [place] [facility] [address] [facility] [place] [address] Gross, Viral V, DO Medication Refill 12/09/19 24 Refill [facility] [place] [place] [address] Gross, Viral V, DO Medication Refill 12/03/19 24 Refill SEP [address] [place] [address] Gross, Viral V, DO Medication Refill 11/28/19 24 2:00 PM EDT Ancillary Procedure [facility] [place] [place] [address] Numbness and tingling of lef t arm and leg; Numbness and tingling of right arm and leg; Generalized osteoarthritis of multiple sites 11/28/19 24 Abstract [facility] [place] [facility] [address] [facility] [place] [address] Dianne Dai RMA 11/28/19 24 Refill [facility]P [facility] 405 [place] [address] Gross, Viral V, DO Medication Refill 11/28/19 24 1:30 PM EDT [facility] 405 [place] [address] [place] Angel, RN Uncontrolled type 2 diabetes mellitus with hyperglycemia ([facility]) (Primary Dx); CHF (congestive heart failure), NYHA class I, acute on chronic, combined (HCC) 11/28/19 24 1:20 PM EDT Office Visit [address] [address] Renato, Viral V, DO Generalized osteoarthritis of multiple sites (Primary Dx); Numbness and tingling of left arm and leg; Numbness and tingling of right arm and leg 11/26/19 [address] [address] Renato, Viral V, DO Other (/ Disp Refills Start End /insulin glargine (LANTUS SOLOSTAR U-100 INSULIN) 100 unit/mL (3 mL) SubQ Insulin Pen 15 mL 11 08/17/2023 - / //) 11/24/19 [address] [address] Renato Viral V, DO Medication Refill 11/19/19 [address] [address] Renato Viral V, DO Refill ( Disp Refills Start End /Insulin [place], Disposable, (SALENA PEN NEEDLE) 32 gauge x 5/32 Misc Needle 100 Each 11 08/20/2023 - /Sig: Use as directed with insulin //) 11/06/19 24 9:30 AM EDT Office Visit [facility] [address] [address] Sapphire Munguia MD ASHD (arteriosclerotic heart disease) (Primary Dx); Dyslipidemia associated with type 2 diabetes mellitus (HCC); Ischemic heart disease; S/P CABG x 3 11/02/19 [address] [address] Renato Viral V, DO Refill (fexofenadine-med pended) 11/02/19 24 Telephone [facility] [address] [id number] Sapphire Munguia MD Appointment Needed 10/31/19 24 9:22 AM EDT - 11/01/19 24 3:28 PM EDT Hospital Encounter [facility] [place] [id number] Sapphire Munguia MD Coronary artery disease due to calcified coronary lesion; Abnormal coronary angiogram; Uncontrolled type 2 diabetes mellitus with hyperglycemia (HCC) Discharge Disposition: Home or Self Care 10/31/19 24 12:00 PM EDT - 10/31/19 24 2:00 PM EDT Surgery [facility]G [facility]PER[facility] [place] [address] Sapphire Munguia MD CORONARY ANGIOGRAM / CARDIAC CATHETERIZATION 10/30/19 24 8:43 AM EDT - 10/30/19 24 11:59 PM EDT Hospital Encounter [facility] [place] DS [address] [place] [address] Discharge Disposition: Home or Self Care 10/27/19 24 Refill [facility] [place] [facility] [address] [place] [address] Gross, Viral V, DO Medication Refill 10/25/19 24 Telephone [facility] [place] [address] [place] [address] Sapphire Munguia MD Tingling 10/24/19 24 Refill [facility] [place] [address] [place] [address] Dianne Dai RMA Medication Refill 10/23/19 24 Refill [facility] [place] [facility] [address] [place] [address] Edith Oropeza APRN Medication Refill 10/22/19 24 Telephone [facility] [address] [address] Sapphire Munguia MD Prior Authorization (denial received ) 10/17/19 24 Orders Only [facility] [address] [address] Sapphire Munguia MD 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, unspecified vessel or lesion type (Primary Dx); Other forms of angina pectoris (HCC) 10/16/19 24 Telephone [facility] [address] [address] Sapphire Munguia MD Procedure 10/01/19 24 Travel 10/01/19 24 9:00 AM EDT - 10/01/19 24 10:30 AM EDT Surgery [facility]G [facility] OPERATOR [place] [address] Sapphire Munguia MD CORONARY ANGIOGRAM WITH GRAFTS / CARDIAC CATHETERIZATION 10/01/19 24 6:34 AM EDT - 10/01/19 24 12:20 PM EDT Hospital Encounter ED[facility] CARD CATH [place] [facility] [address] Sapphire Munguia MD Other forms of angina pectoris (HCC); SOB (shortness of breath); ASHD (arteriosclerotic heart disease) Discharge Disposition: Home or Self Care 09/29/19 24 9:25 AM EDT - 09/29/19 24 11:59 PM EDT Hospital Encounter [facility] [place] DS [address] [place] [address] Dyslipidemia associated with type 2 diabetes mellitus (HCC); 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, unspecified vessel or lesion type; S/P CABG x 3; SOB (shortness of breath); Chest pain, unspecified type Discharge Disposition: Home or Self Care 09/27/19 [address] [address] Paula Bourgeois, Molder Floor Other (Returning Patient) 09/23/19 24 Refill [facility] [place] [facility] [address] [place] [address] Gross, Viral V, DO Medication Refill 09/21/19 24 Telephone [facility] [place] [facility] [address] [place] [address] Gross, Viral V, DO 911/Red Flag (chest pain w/ SOB) 09/20/19 24 Orders Only [facility] [address] [address] Sapphire Munguia MD 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, unspecified vessel or lesion type (Primary Dx); S/P CABG x 3; SOB (shortness of breath); Chest pain, unspecified type 09/20/19 24 11:30 AM EDT [facility] [address] [address] He Pineda APRN Dyslipidemia associated with type 2 diabetes mellitus (HCC) (Primary Dx); 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, unspecified vessel or lesion type; Uncontrolled type 2 diabetes mellitus with hyperglycemia (HCC); Ventricular bigeminy; S/P CABG x 3; SOB (shortness of breath); Occlusion of left vertebral artery; Ischemic heart disease; Pure hypercholesterolemia; Other specified hypotension; CHF (congestive heart failure), NYHA class I, acute on chronic, combined (HCC) 09/19/19 24 Telephone [place] [id number] [address] [phone] Lyle Solo MD Results 09/18/19 24 Refill [facility] [address] [place] [address] Edith Oropeza APRN Medication Refill 09/18/19 24 10:20 AM EDT Ancillary Procedure [facility] [address] [facility] [address] [place] [address] Paula Munguia PA DDD (degenerative disc disease), lumbar 09/18/19 24 11:00 AM EDT [facility] [address] [facility] [address] [place] [address] Paula Munguia PA DDD (degenerative disc disease), lumbar (Primary Dx); Lumbar degenerative disc disease; Chronic low back pain, unspecified back pain laterality, unspecified whether sciatica present; Lumbar pain; Myofascial pain; Lumbar spondylosis 09/17/19 24 Telephone [facility] [address] [place] [address] Gross, Viral V, DO Orders (lab work) 09/17/19 24 1:04 PM EDT - 09/17/19 24 11:59 PM EDT Hospital Encounter [address] [place] [address] Lyle Solo MD Thyroid nodule Discharge Disposition: Home or Self Care 09/12/19 24 Telephone [facility] [place] [address] Gross, Viral V, DO Medication Management ( Disp Refills Start End /lisinopriL (PRINIVIL;ZESTRIL) 2.5 mg Oral Tablet 90 Tablet 3 06/11/2023 - /Sig: TAKE 1 TABLET BY MOUTH ONCE DAILY . /Sent to pharmacy as: lisinopriL 2.5 mg tablet (PRINIVIL;ZESTril) /E-Prescribing Status: Receipt confirmed by pharmacy (06/11/2023 9:33 AM EDT) //) 09/12/19 24 Refill [facility] [place] [address] [address] Gross, Viral V, DO Medication Refill 09/07/19 24 Telephone [facility] [address] [address] Sapphire Munguia MD Appointment Needed (Pt requesting appt to see Ezra for sob); Shortness of Breath 08/30/19 24 1:50 PM EDT - 08/30/19 24 11:59 PM EDT Hospital Encounter [facility] [place] DS [address] [place] [address] Uncontrolled type 2 diabetes mellitus with hyperglycemia (HCC); Stage 3a chronic kidney disease (HCC); 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); HTN (hypertension), benign Discharge Disposition: Home or Self Care 08/30/19 24 Refill [facility] [place] [address] [address] Gross, Viral V, DO Medication Refill 08/27/19 24 [address] [facility] [place] [address] Gross, Viral V, DO Samples (semaglutide (OZEMPIC) 2 mg/dose (8 mg/3 mL) SubQ Pen Injector ) 08/22/19 24 Refill [facility] [place] [place] [address] Gross, Viral V, DO Medication Refill 08/21/[address] [place] [address] Gross, Viral V, DO Referral (ortho/spine) 08/21/19 24 Orders Only [address] [address] Gross, Viral V, DO Low sodium levels (Primary Dx) 08/20/19 24 Orders Only [address] [place] [address] Gross, Viral V, DO Uncontrolled type 2 diabetes mellitus with hyperglycemia (HCC) (Primary Dx) 08/17/19 24 9:54 AM EDT - 08/17/19 24 11:59 PM EDT Hospital Encounter [facility] [address] Uncontrolled type 2 diabetes mellitus with hyperglycemia (HCC); Stage 3 chronic kidney disease, unspecified whether stage 3a or 3b CKD (HCC); Muscle cramps Discharge Disposition: Home or Self Care 08/17/19 24 8:40 AM EDT Office Visit [address] [address] Gross, Viral V, DO Uncontrolled type 2 diabetes mellitus with hyperglycemia (HCC) (Primary Dx); Stage 3 chronic kidney disease, unspecified whether stage 3a or 3b CKD (HCC); Muscle cramps 08/17/19 24 9:00 AM EDT Office Visit [facility] [place] [address] [place] [address], [place] [address] Abel Hernandez MD Stage 3a chronic kidney disease (HCC) (Primary Dx); HTN (hypertension), benign; 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) 08/16/19 24 Telephone [facility] [place] [address] [address] Gross, Viral V, DO Letter for School/Work 08/13/19 24 2:55 PM EDT - 08/13/19 24 11:59 PM EDT Hospital Encounter [facility] [address] [address] Stage 3b chronic kidney disease (HCC); Edema due to hypervolemia; 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); HTN (hypertension), benign Discharge Disposition: Home or Self Care 08/03/19 24 Refill [facility] [place] [address] Edith Oropeza APRN Medication Refill 07/24/19 24 Refill [facility] [place] [address] Renato Viral V, DO Medication Refill 07/18/19 24 11:45 AM EDT Office Visit [facility] [place] [id number] Sapphire Munguia MD 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, unspecified vessel or lesion type (Primary Dx); Mixed hyperlipidemia; S/P CABG x 3; Congestive heart failure, unspecified HF chronicity, unspecified heart failure type ([facility]) 07/16/19 24 4:00 PM EDT Office Visit [facility] [place] [address] [address] Gross, Viral V, DO Spondylosis of lumbar region without myelopathy or radiculopathy (Primary Dx); Screening for colon cancer; Essential hypertension; History of TIA (transient ischemic attack) 07/10/19 24 Travel 07/10/19 24 3:11 PM EDT - 07/10/19 24 5:19 PM EDT Emergency [facility] [address] [facility] [place] [address] Mitchell Gaitan MD Acute left-sided low back pain without sciatica (Primary Dx) Discharge Disposition: Home or Self Care 06/29/19 [facility] [address] Carlos A Gross V, DO Medication Refill (one touch ) 06/28/19 Patient Outreach [address] [address] Bryanna Mitchell RN CM- Telephonic Outreach; Care Transition; CM-Medication Assistance 06/27/19 12:24 PM EDT - 06/27/19 11:59 PM EDT Hospital Encounter [facility] [employer] [address] Sapphire Munguia MD SOB (shortness of breath) on exertion Discharge Disposition: Home or Self Care 06/27/19 12:24 PM EDT - 06/27/19 11:59 PM EDT Hospital Encounter 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, unspecified vessel or lesion type (Primary Dx); Mixed hyperlipidemia; Ischemic heart disease; Congestive heart failure, unspecified HF chronicity, unspecified heart failure type (HCC); S/P CABG x 3; Heart murmur; SOB (shortness of breath) on exertion 06/21/19 24 12:20 PM EDT Office Visit [facility] [place] [address] [place] [address] Lyle Solo MD Mass of right parotid gland (Primary Dx); Thyroid nodule 06/20/19 24 Refill [facility] [place] [facility] [address] [facility] [place] [address] Edith Oropeza APRN Medication Refill 06/11/19 24 Orders Only [facility] [address] [facility] [place] [address] Thelma Russell, JAMISON Uncontrolled type 2 diabetes mellitus with hyperglycemia (HCC) 06/11/19 24 9:00 AM EDT Office Visit [facility] [address] [facility] [place] [address] Oswaldo Harry MD Essential hypertension (Primary Dx); Weakness of both arms; Uncontrolled type 2 diabetes mellitus with hyperglycemia (HCC) 06/10/19 24 Refill [facility] [place] [facility] [place] [address] Gross, Viral V, DO Medication Refill 06/09/19 24 Refill [facility] [address] [facility] [place] [address] Gross, Viral V, DO Medication Refill 06/07/19 24 9:30 PM EDT - 06/08/19 24 12:58 AM EDT [facility] [address] [place] [address] Piedad Jimenez MD Interscapular pain (Primary Dx) Discharge Disposition: Home or Self Care 06/07/19 24 Travel 06/06/19 24 3:35 PM EDT - 06/06/19 24 11:59 PM EDT Hospital Encounter [facility] [address] [place] [address] Abel Hernandez MD Stage 3b chronic kidney disease (HCC) Discharge Disposition: Home or Self Care 06/05/19 24 5:10 PM EDT Office Visit [facility] [address] [facility] [place] [address] Edith Oropeza APRN Abscess of buttock (Primary Dx); Other forms of angina pectoris 06/04/19 24 Orders Only [facility] [place] [address] [place] [address] Abel Hernandez MD Stage 3b chronic kidney disease (HCC) (Primary Dx) 06/04/19 24 1:00 PM EDT Office Visit [facility] [place] [address] [place] [address] Abel Hernandez MD Stage 3b chronic kidney disease (HCC) (Primary Dx); 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); HTN (hypertension), benign; Edema due to hypervolemia 05/25/19 24 Refill [facility] [place] [facility] [address] [place] [address] Edith Oropeza APRN Medication Refill 05/20/19 24 Refill [facility] [place] [facility] [address] [place] [address] Gross, Viral V, DO Medication Refill 05/14/19 24 Refill [facility] [address] [place] [address] Gross, Viral V, DO Medication Refill 05/13/19 24 10:37 AM EST - 05/13/19 24 11:59 PM EST Hospital Encounter [facility] [address] [place] [address] Mixed hyperlipidemia; Congestive heart failure, unspecified HF [...] Dyslipidemia associated with type 2 diabetes mellitus ([facility]) Discharge Disposition: Home or Self Care 05/05/19 24 Refill [facility] [place] [place] [address] Gross, Viral V, DO Medication Refill 04/23/19 24 Refill [facility] [place] [address] [facility] [address] [place] [address] Sapphire Munguia MD Medication Refill 04/23/19 24 [address]ill [facility] [place] [place] [address] Gross, Viral V, DO Medication Refill 04/23/19 [address] [place] [address] Edith Oropeza APRN Medication Refill 04/11/19 24 4:30 PM EST Office Visit [address] [place] [address] Gross, Viral V, DO Irritable bowel syndrome with diarrhea (Primary Dx); Left lower quadrant abdominal pain; CHF (congestive heart failure), NYHA class I, acute on chronic, combined (HCC); Acute right-sided congestive heart failure (HCC); Type 2 diabetes mellitus with diabetic peripheral angiopathy without gangrene, without long-term current use of insulin ([facility]); Class 2 severe obesity due to excess calories with serious comorbidity and body mass index (BMI) of 35.0 to 35.9 in adult ([facility]); Dyslipidemia associated with type 2 diabetes mellitus ([facility]); Stage 3 chronic kidney disease, unspecified whether stage 3a or 3b CKD (HCC) 03/30/19 24 Patient Outreach [address] [place] [address] Bryanna Mitchell, RN CM-Medication Assistance 03/29/19 24 Patient Outreach [facility] [address] [place] [address] Bryanna Mitchell, RN CM- Telephonic Outreach; Care Transition; CM-Medication Assistance 03/27/19 [address] [place] [address] Gross, Viral V, DO Medication Refill 03/20/19 24 Refill [facility] [address] [place] [address] Edith Oropeza APRN Medication Refill 03/19/19 24 Orders Only [facility] [place] [address] [facility] [address] [place] [address] Migdalia Corcoran RMA 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, unspecified vessel or lesion type (Primary Dx); Chest pain, unspecified type 03/16/19 24 Patient Outreach [address] [address] Bryanna Mitchell, RN CM- Telephonic Outreach; Care Transition; CM-Medication Assistance; CM-SDIN 03/07/[address] [place] [address] Gross, Viral V, DO Medication Refill 03/06/20 23 Refill [facility] [address] [place] [address] Gross, Viral V, DO Medication Refill 02/23/20 23 Patient Outreach [address] [place] [address] Thelma Russell RN CM-Medication Assistance 02/21/20 5:30 PM EST Office Visit [address] [place] [address] Gross, Viral V, DO Degenerative disc disease, lumbar (Primary Dx); Lumbar radiculopathy, chronic; Generalized osteoarthritis of multiple sites; Type 2 diabetes mellitus with diabetic peripheral angiopathy without gangrene, without long-term current use of insulin (HCC); Well adult exam 02/20/20 23 Patient Outreach [facility] [address] [place] [address] Gross, Viral V, DO Central Patient Navigator Outreach (AWV questionnaire) 12/11/20 23 8:58 AM EST - 02/20/20 23 11:59 PM EST Hospital Encounter [facility] [address] [facility] [place] [address] Dyslipidemia associated with type 2 diabetes mellitus (HCC); Uncontrolled type 2 diabetes mellitus with hyperglycemia (HCC); Pure hypercholesterolemia Discharge Disposition: Home or Self Care 02/15/20 23 Refill [facility] [place] [address] [place] [address] Gross, Viral V, DO Medication Refill 02/13/20 23 Patient Outreach [facility] [address] [facility] [place] [address] Gross, Viral V, DO Central Patient Navigator Outreach (A1c) 02/12/20 23 Refill [facility] [place] [address] [place] [address] Gross, Viral V, DO Medication Refill 02/12/20 23 Refill [facility] [place] [address] [place] [address] Edith Oropeza, FILEMAKER DEVELOPER Medication Refill 02/10/20 23 Refill [facility] [place] [address] [place] [address] Gross, Viral V, DO Medication Refill 02/03/20 23 Refill [facility] [place] [address] [place] [address] Gross, Viral V, DO Medication Refill 01/31/20 23 Telephone [facility] [place] [address] [place] [address] Gross, Viral V, DO Results (mri) 01/13/20 23 Refill [facility] [place] [address] [place] [address] Edith Oropeza, FILEMAKER DEVELOPER Medication Refill 01/13/20 23 Refill [facility] [address] [place] [address] Edith Oropeza, FILEMAKER DEVELOPER Medication Refill 12/31/19 [address] [address] Gross, Viral V, DO Medication Refill 12/29/[address] [address] Gross, Viral V, DO Medication Refill 12/28/[address] [address] Gross, Viral V, DO Referral (pain specialist ) 12/26/[address] [address] Gross, Viral V, DO Medication Refill 12/21/[address] [address] Gross, Viral V, DO Samples (ozempic) 12/15/19 Patient Outreach [address] [address] Bryanna Mitchell RN CM- Telephonic Outreach; Care Transition; CM-Medication Assistance 12/08/[address] [address] Gross, Viral V, DO Medication Refill (torsemide (DEMADEX) 20 mg Oral Tablet 60 Tablet 1 08/24/2022 /Sig - Route: Take 1 Tablet by mouth Twice daily diuretic. - Oral //) 12/05/[address] [address] Gross, Viral V, DO Medication Management (hydroCHLOROthiazide (HYDRODIURIL) tablet 25 mg [[id number]]/Order DetailsOrdered Dose: 25 mg Route: Oral Frequency: DAILY/Admin Dose: 25 mg /Scheduled Start Date/Time: 08/19/22 0900 End Date/Time: 08/21/22 1020 First Dose: As Scheduled//torsemide (DEMADEX) 20 mg Oral Tablet 60 Tablet 1 08/24/2022 /Sig - Route: Take 1 Tablet by mouth Twice daily diuretic. 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); S/P CABG x 3 11/03/19 23 Refill [facility] [place] [address] Gross, Viral V, DO Medication Refill 10/30/19 [facility] [address] Gross, Viral V, DO Medication Refill 10/18/19 [address] [address] Edith Oropeza APRN Medication Refill 10/14/19 23 11:45 AM EDT - 10/14/19 23 11:59 PM EDT Hospital Encounter [facility] [address] [address] Serum potassium elevated Discharge Disposition: Home or Self Care 10/05/19 23 Orders Only [facility] [place] [address] [address] Gross, Viral V, DO Serum potassium elevated (Primary Dx) 10/05/19 23 8:08 AM EDT - 10/05/19 23 11:59 PM EDT Hospital Encounter [facility] Ultrasound [address] [place] [address] Gross, Viral V, DO Thyroid mass Discharge Disposition: Home or Self Care 10/04/19 Nurse Triage [address] [place] [address] Jesusita Marie RN 10/04/19 1:56 PM EDT - 10/04/19 11:59 PM EDT Hospital Encounter [facility] DS [address] [place] [address] Thyroid mass Discharge Disposition: Home or Self Care 10/04/19 3:00 PM EDT Office Visit [facility] [address] 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; Combined forms of age-related cataract of right eye; Combined forms of age-related cataract of left eye 10/04/19 1:40 PM EDT Office Visit [facility] [place] [facility] [address] [place] [address] Gross, Viral V, DO Cardiomegaly (Primary Dx); Thyroid mass 09/29/19 11:50 AM EDT Office Visit [facility] [place] [facility] [address] [place] [address] Arehart, Edith FILEMAKER DEVELOPER Sore throat (Primary Dx); Runny nose; Uncontrolled type 2 diabetes mellitus with hyperglycemia (HCC) 09/28/19 1:00 PM EDT Office Visit [facility] [address] [address] [address],[place] Dyslipidemia associated with type 2 diabetes mellitus (HCC) (Primary Dx); Uncontrolled type 2 diabetes mellitus with hyperglycemia (HCC) 09/28/19 8:00 AM EDT Office Visit [facility] [address] [address] Sapphire Munguia MD 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, unspecified vessel or lesion type (Primary Dx); Mixed hyperlipidemia; Congestive heart failure, unspecified HF chronicity, unspecified heart failure type (HCC); S/P CABG x 3 09/24/19 11:56 AM EDT - 09/24/19 11:59 PM EDT Hospital Encounter [facility] [address] [place] [phone] Mixed hyperlipidemia; 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, unspecified vessel or lesion type; Ischemic heart disease; S/P CABG x 3; Muscle cramps; Encounter for vitamin deficiency screening; Vitamin D deficiency Discharge Disposition: Home or Self Care 09/23/19 Telephone [facility] [place] [place] [address] Gross, Viral V, DO Follow-up (Pt adv that labs have been ordered) 09/23/19 Patient Outreach [facility] [address] [address] Thelma Russell RN Care Transition; CM- Telephonic Outreach; CM-Medication Assistance 09/21/19 Telephone [facility] [place] [address] [address] Gross, Viral V, DO Home Health 09/19/19 Telephone [facility] [place] [address] Gross, Viral V, DO Medication Management (Not on formulary please change ) 09/14/19 Telephone [facility] [place] [address] Gross, Viral V, DO Medication Management ( Disp Refills Start End /ketoconazole (NIZORAL) 2 % Top Cream (Discontinued) 60 g 0 02/20/2022 09/04/2022 /Sig: APPLY TO THE AFFECTED AREA(S) TOPICALLY EVERY DAY /Patient taking differently: APPLY //); Follow-up (Request CT chest done at [facility] ) 09/11/19 Refill [facility] [place] [place] [address] Gross, Viral V, DO Medication Refill 09/09/[address] [address] Robyn Rogers, BROOKA Orders 09/08/19 Patient Outreach [address] Bryanna Mitchell, RN CM-Medication Assistance; CM- Telephonic Outreach; Care Transition 09/06/[address] [address] Gross, Viral V, DO Home Health (FYI for doctor ) 09/05/19 3:10 PM EDT Office Visit [address] [address] Bryanna Mitchell, JAMISON Encounter for support and coordination of transition of care (Primary Dx) 09/05/19 3:00 PM EDT Office Visit [address] [address] Gross, Viral V, DO CHF (congestive heart failure), NYHA class I, acute on chronic, combined (HCC) (Primary Dx); Essential hypertension; Groin hematoma, subsequent encounter 09/02/[address] [address] Robyn Rogers, RMA Other 08/31/19 Patient Outreach [address] [address] Bryanna Mitchell, RN CM- Telephonic Outreach; Care Transition; CM-Medication Assistance 08/26/[address] [address] Gross, Viral V, DO Referral (Diabetic education ) 08/26/19 Telephone [facility] [place] [address] [facility] [address] [place] [address] Ely, Agustin Dye MD Patient Education 08/26/19 Patient Outreach [facility] [address] [place] [address] Bobby Reynoso BA, COS Referral 08/26/19 Patient Outreach [facility] [address] [place] [address] Madeline Bruno, RN Hospital Follow Up; Care Transition; CM - Medication Reconciliation; CM-Resource Coordination; CM- Consultation 08/19/19 9:42 PM EDT - 08/25/19 4:26 PM EDT Hospital Encounter [facility] [address] [place], [place] [id number] Leo Clemente MD Discharge Disposition: Home or Self Care 08/19/19 Travel 08/19/19 4:58 PM EDT - 08/19/19 9:04 PM EDT Emergency [facility] [address] [facility] [place], [place] [id number] Jessica Wallis MD Renard, Cruff, MD Acute right-sided congestive heart failure (HCC) (Primary Dx); Fluid retention; Dyspnea, unspecified type Discharge Disposition: Discharge/Readmit 08/19/19 Telephone [facility] [address] [place] [address] Gross, Viral V, DO Advice Only (Retaining water) 08/19/19 Orders Only [facility] [place] [id number] Sapphire Munguia MD Congestive heart failure, unspecified HF chronicity, unspecified heart failure type (HCC) (Primary Dx) 08/19/19 Orders Only Adult Med [address] [place], [place] [id number] Nery Yin APRN 08/19/19 2:10 PM EDT Office Visit [facility] [address] [place] [address] Gross, Viral V, DO Localized enlarged lymph nodes (Primary Dx); Inguinal lymphadenopathy; Essential hypertension; Acute bronchitis, unspecified organism 08/18/19 Telephone [facility] [place] [address] [address] Gross, Viral V, DO Samples (semaglutide (OZEMPIC) 1 mg/dose) 08/18/19 Telephone [facility] [place] [address] [address] Gross, Viral V, DO Appointment Needed (ed f/u [facility]/ knot below waste line/patient states it is painful ) 08/16/19 Telephone [facility] [address] [address] Sapphire Munguia MD Other (pt calling in mgs of meds) 08/15/19 Travel 08/15/19 11:15 AM EDT - 08/15/19 11:59 PM EDT Hospital Encounter [facility] [address] [place] [address] [address] [place] [address] Rosie Gao APRN 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, unspecified vessel or lesion type; Mixed hyperlipidemia; Ischemic heart disease; S/P CABG x 3; Hematoma of groin, initial encounter; Other specified complications of surgical and medical care, not elsewhere classified, initial encounter Discharge Disposition: Home or Self Care 08/15/19 10:00 AM EDT [facility] [address] [address] Rosie Gao APRN 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, unspecified vessel or lesion type (Primary Dx); Mixed hyperlipidemia; Ischemic heart disease; S/P CABG x 3; Other specified complications of surgical and medical care, not elsewhere classified, initial encounter; Congestive heart failure, unspecified HF chronicity, unspecified heart failure type (HCC) 08/12/19 10:00 AM EDT Office Visit [facility] [place] [address] [address] Gross, Viral V, DO Uncontrolled type 2 diabetes mellitus with hyperglycemia (HCC) (Primary Dx); Essential hypertension; History of TIA (transient ischemic attack); Acute on chronic systolic congestive heart failure, NYHA class 2 (HCC) 07/14/19 Refill [facility] [place] [address] Carlos A Gross V, DO Medication Refill 07/05/19 Refill [facility] [address] [address] Edith Oropeza APRN Medication Refill 06/23/19 1:20 PM EDT Office Visit [facility] [place] [address] [place] [address] Lyle Solo MD Mass of right parotid gland (Primary Dx) 06/22/19 Patient Outreach [address] [address] Bryanna Mitchell RN CM- Telephonic Outreach; Care Transition; CM-Medication Assistance 06/10/19 Travel 06/10/19 4:50 PM EDT - 06/10/19 6:27 PM EDT Emergency [facility] [address] [place] [address] Peggy Lama DO Lip laceration, initial encounter (Primary Dx); Facial contusion, initial encounter; Mass of right parotid gland Discharge Disposition: Home or Self Care 05/28/19 9:06 AM EDT - 05/28/19 11:59 PM EDT Hospital Encounter [facility] [address] [address] Uncontrolled type 2 diabetes mellitus with hyperglycemia (HCC); Dyslipidemia associated with type 2 diabetes mellitus (HCC); Screening for thyroid disorder; Screening for prostate cancer Discharge Disposition: Home or Self Care 05/27/19 11:20 AM EDT [facility] [address] Carlos A Gross V, DO Screening for thyroid disorder (Primary Dx); Atherosclerotic heart disease of torres martinez coronary artery with other forms of angina pectoris; Fluid retention in legs; Essential hypertension; Gastroesophageal reflux disease with esophagitis, unspecified whether hemorrhage; Uncontrolled type 2 diabetes mellitus with hyperglycemia (HCC); Dyslipidemia associated with type 2 diabetes mellitus (HCC); History of TIA (transient ischemic attack); Chronic bilateral low back pain with right-sided sciatica; Screening for prostate cancer 05/24/19 Telephone [facility] [address] [facility], [place] [address] Frederic Almaguer APRN Other (WORK COMP, NOT WORK COMP) 05/23/19 Telephone [facility] [address] [facility] [address] [place] [address] Frederic Almaguer APRN Knee Pain 05/20/19 8:15 AM EST Ancillary Procedure [facility] [place] [address] [place] [id number] Frederic Almaguer APRN Chronic pain of right knee 05/20/19 8:00 AM EST Office Visit [facility] [address] [place], [place] [id number] Frederic Almaguer APRN Osteoarthritis of patellofemoral joints of both knees (Primary Dx); Primary osteoarthritis of left knee; Chronic pain of right knee 05/01/19 Telephone [facility] [address] [place], [place] [id number] Frederic Almaguer APRN Other (WORK COMP, NOT WORK COMP) 04/28/19 1:15 PM EST Ancillary Procedure [facility] [address] [place] [id number] Frederic Almaguer APRN Acute pain of left knee 04/28/19 1:00 PM EST Office Visit [place] [id number] Frederic Almaguer APRN Primary osteoarthritis of left knee (Primary Dx); Acute pain of left knee 04/26/19 Travel 04/26/19 7:16 PM EST - 04/26/19 8:53 PM EST Emergency [facility] [address] [place] [address] Peggy Lama DO Injury of left knee, initial encounter (Primary Dx) Discharge Disposition: Home or Self Care 04/20/19 2:15 PM EST Office Visit [address] [address] Carlie Connolly APRN Lumbar radiculopathy (Primary Dx); Chronic bilateral low back pain with right-sided sciatica; Lumbar spondylosis; Class 2 severe obesity due to excess calories with serious comorbidity and body mass index (BMI) of 35.0 to 35.9 in adult (HCC); Sacroiliitis; Cervical spondylosis 04/11/19 1:45 PM EST Office Visit [facility] [place] [id number] Sapphire Munguia MD 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); Refractive error 03/27/[address] [address] Carlos A Gross V, DO Samples (Ozempic) 03/23/19 Patient Outreach [address] [address] Bryanna Mitchell RN CM- Telephonic Outreach; Care Transition; CM-Medication Assistance 03/20/19 10:05 AM EST Ancillary Procedure [facility] [address] Renato Viral V, DO Atherosclerotic heart disease of torres martinez coronary artery with other forms of angina pectoris; Fluid retention in legs; Angina of effort Discharge Disposition: Home or Self Care 01/09/20 23 9:40 AM EST Office Visit [facility] [address] [place] [address] Gross, Viral V, DO Fluid retention in legs (Primary Dx); Sacroiliitis; Dyslipidemia associated with type 2 diabetes mellitus (HCC); Class 2 severe obesity due to excess calories with serious comorbidity and body mass index (BMI) of 35.0 to 35.9 in adult (HCC); Atherosclerotic heart disease of torres martinez coronary artery with other forms of angina pectoris; Angina of effort 03/14/19 23 Telephone [facility] [place] [facility] [address] [place] [address] Gross, Viral V, DO Medication Management (ozempic) 03/07/20 11:45 AM EST Office Visit [facility] [place] [address] [facility] [address] [place] [address] Jeffy Fuentes MD 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, unspecified vessel or lesion type (Primary Dx); Mixed hyperlipidemia; Chest pain, unspecified type; Ischemic heart disease; S/P CABG x 3 03/06/20 22 Refill [facility] [place] [address] [place] [address] Gross, Viral V, DO Medication Refill 03/06/20 22 Refill [facility] [place] [facility] [address] [place] [address] Gross, Viral V, DO Medication Refill 03/04/20 [address] [address] Drea Acuna APRN Medication Refill 02/29/20 22 Telephone [facility] [place] [address] [place] [address] Jeffy Fuentes MD Advice Only (Chest pain ) 02/21/20 Patient Outreach [facility] [address] [place] [address] Patsy Lopez RN Hospital Follow Up; Care Transition 02/21/20 Telephone [facility] [address] [place] [address] Daphne Cope RN 02/21/20 22 Refill [facility] [address] [place] [address] Gross, Viral V, DO Medication Refill 02/17/20 22 12:11 PM EST - 02/18/20 22 12:37 PM EST Hospital [place] [address] Sapphire Munguia MD Chest pain, unspecified type; Shortness of breath; Dyslipidemia associated with type 2 diabetes mellitus (HCC) Discharge Disposition: Home or Self Care 02/17/20 22 Travel 02/17/20 22 1:30 PM EST - 02/17/20 22 2:30 PM EST Surgery [facility] [place] [address] Sapphire Munguia MD CORONARY ANGIOGRAM WITH GRAFTS / CARDIAC CATHETERIZATION 02/15/20 22 Refill [facility] [address] [place] [address] Gross, Viral V, DO Medication Refill 02/14/20 22 11:03 AM EST - 02/14/20 22 11:59 PM EST Hospital Encounter [facility] [address] [place] [address] Essential hypertension; Screening for prostate cancer; Chest pain, unspecified type; SOB (shortness of breath) Discharge Disposition: Home or Self Care 02/11/20 22 Orders Only [facility] [place] [address] [place] [address] Sapphire Munguia MD Chest pain, unspecified type (Primary Dx); SOB (shortness of breath) 02/10/20 22 3:15 PM EST Office Visit [facility] [place] [address] [place] [address] Jeffy Fuentes MD Chest pain, unspecified type (Primary Dx); Ischemic heart disease; S/P CABG x 3; Angina of effort 11/25/20 22 Patient Outreach [facility] [place] [facility] 405 [place] [address] Bryanna Mitchell RN CM- Telephonic Outreach; Care Transition; CM-Medication Assistance 02/01/20 Patient Outreach [facility] [address] [place] [address] Gross, Viral V, DO Central Order Completion Outreach (colon) 01/31/20 Refill [facility] 405 [place] [address] Gross, Viral V, DO Medication Refill 01/31/20 Telephone [facility] 405 [place] [address] Gross, Viral V, DO Samples (Ozempic) 01/28/20 10:45 AM EST Office Visit [facility] [address] [place] [address] Carlos Langston MD Lumbar spondylosis (Primary Dx); Chronic bilateral low back pain with right-sided sciatica 01/24/20 Telephone [facility] [place] [facility] 405 [place] [address] Gross, Viral V, DO Prior Authorization 01/20/20 Refill [facility] [place] 405 [place] [address] Gross, Viral V, DO Medication Refill 01/18/20 22 Refill [facility] [place] [address] [place] [address] Drea Acuna APRN Medication Refill 01/13/20 Travel 01/13/20 1:43 PM EDT - 01/13/20 11:59 PM EDT Hospital Encounter [facility] [address] [place] [address] Carlie Connolly APRN Discharge Disposition: Home or Self Care 01/07/20 Patient Outreach [facility] [address] [place] [address] Bryanna Mitchell, RN CM- Telephonic Outreach; Care Transition; CM-Medication Assistance 01/04/20 Orders Only [address] [address] Helena Garay MA Encounter for long-term (current) use of high-risk medication 01/04/20 9:45 AM EDT Office Visit [address] [address] Drea Acuna APRN Chronic bilateral low back pain with right-sided sciatica (Primary Dx); Encounter for long-term (current) use of high-risk medication; Lumbar radiculopathy; Degenerative disc disease, lumbar; Spondylosis of lumbar region without myelopathy or radiculopathy 01/03/20 Patient Outreach [facility] [address] [place] [address] Thelma Russell RN CM-Medication Assistance; Care Transition; Care Management - Face To Face 01/03/20 11:00 AM EDT Office Visit [facility] [address] [place] [address] Edith Oropeza APRN Viral URI (Primary Dx); Neck pain; Runny nose 12/30/19 Travel 12/28/19 Patient Outreach [facility] [address] [place] [address] Bryanna Mitchell, JAMISON CM- Telephonic Outreach; Care Transition; CM-Medication Assistance 12/28/[address] [address] Snow Dove MA Other 12/28/19 Telephone [facility] [address] [place] [address] Renato, Viral V, DO Other (Back claim ) 10/17/20 22 Telephone [facility] [place] [address] [facility] [address] [place] [address] Agustin Graves MD Samples 12/27/19 22 Telephone [facility] 405 [place] [address] Gross, Viral V, DO Samples (ozempic) 12/23/19 22 Orders Only [address] [address] Edith Oropeza APRN Uncontrolled type 2 diabetes mellitus with hyperglycemia (HCC) (Primary Dx) 12/21/19 2:42 PM EDT - 12/21/19 11:59 PM EDT Hospital Encounter [facility] [address] [place] [address] Essential hypertension; Night sweats; Uncontrolled type 2 diabetes mellitus with hyperglycemia (HCC) Discharge Disposition: Home or Self Care 12/21/19 22 1:40 PM EDT [facility] [address] [place] [address] Gross, Viral V, DO Other eczema (Primary Dx); Essential hypertension; Night sweats; Lumbar radiculitis; Sciatica of right side 12/20/19 22 Refill [facility] [address] [place] [address] Gross, Viral V, DO Medication Refill 12/17/19 22 Telephone [facility] [place] [facility] [address] [place] [address] Gross, Viral V, DO Paperwork/forms (handicap placard) 12/15/19 22 Telephone [facility] [address] [place] [address] Emerson Scanlon MA Anticoagulation (clopidogreL (PLAVIX) 75 mg Oral Tablet ) 12/15/19 22 11:45 AM EDT Office Visit [facility] [address] [place] [address] Carlie Connolly APRN Degenerative disc disease, lumbar (Primary Dx); Chronic bilateral low back pain with right-sided sciatica; Lumbar radiculopathy; Spondylosis of lumbar region without myelopathy or radiculopathy; Anxiety due to invasive procedure; Class 2 severe obesity due to excess calories with serious comorbidity and body mass index (BMI) of 35.0 to 35.9 in adult (HCC) 12/08/19 22 Refill [facility] [place] [facility] [address] [facility] [place] [address] Gross, Viral V, DO Medication Refill 12/08/19 Refill [facility] [place] [address] [place] [address] Gross, Viral V, DO Medication Refill 12/07/19 22 Refill [facility] [place] [facility] [address] [place] [address] Gross, Viral V, DO Medication Refill 12/06/19 22 Travel 12/06/19 22 8:42 AM EDT - 12/06/19 11:59 PM EDT Hospital Encounter [facility] [address] [place] [address] Drea Acuna APRN Chronic bilateral low back pain with right-sided sciatica Discharge Disposition: Home or Self Care 11/24/19 Telephone [facility] [place] [address] [place] [address] Gross, Viral V, DO Follow-up (pt called with feedback ) 11/23/19 3:30 PM EDT Office Visit [facility] [place] [facility] [address] [facility] [place] [address] Gross, Viral V, DO Lumbar radiculitis (Primary Dx); Screening for colon cancer; Sciatica of right side; Uncontrolled type 2 diabetes mellitus with hyperglycemia (HCC); Well adult exam 11/19/19 Telephone [facility] [place] [facility] [place] [address] Gross, Viral V, DO Symptom Call 11/17/19 22 Telephone [facility] [address] [place] [address] Carlos Langston MD Other (Continued increase pain) 11/16/19 22 Patient Outreach [facility] [address] [place] [address] Betty Hassan, BS, COS ED Follow-Up Call 11/16/19 1:30 PM EDT Office Visit [address] [address] Drea Acuna APRN Chronic bilateral low back pain with right-sided sciatica (Primary Dx); Sacroiliitis 11/15/19 2:09 PM EDT - 11/15/19 2:38 PM EDT [facility] [address] [facility] [place] [address] Jessica Wallis MD Acute exacerbation of chronic low back pain (Primary Dx) Discharge Disposition: Home or Self Care 10/30/19 22 Refill [facility] [place] [facility] [address] [place] [address] Gross, Viral V, DO Medication Refill 10/26/19 22 Refill [facility] 405 [place] [address] Gross, Viral V, DO Medication Refill 10/24/19 22 Refill [facility] [place] [facility] [address] [place] [address] Gross, Viral V, DO Medication Refill 10/21/19 22 Patient Outreach [facility] [address] [place] [address] Gross, Viral V, DO Central Order Completion Outreach (oguadomonique) 10/21/19 9:15 AM EDT Office Visit [facility] [place] [address] [place] [address] Nikunj Laboy, DPM Bunionette of right foot (Primary Dx); Pain in right foot 10/13/19 [address] [address] Gross, Viral V, DO Medication Refill 10/05/19 Patient Outreach [place] [address] [place] [address] Betty Hassan BS, COS ED Follow-Up Call 10/04/19 Travel 10/04/19 4:32 PM EDT - 10/04/19 8:38 PM EDT Emergency [facility] [address] [place] [address] Philip Phillip MD Fall, initial encounter (Primary Dx); Strain of lumbar region, initial encounter; Thoracic myofascial strain, initial encounter Discharge Disposition: Home or Self Care 09/28/[address] [address] Shell Navarro RMA Central Order Completion Outreach 09/23/19 11:30 AM EDT Office Visit [facility] [address] [address] Nikunj Laboy DPM Bunionette of right foot (Primary Dx); Metatarsus adductus of both feet; Diabetic polyneuropathy associated with type 2 diabetes mellitus (HCC); Toe pain, right; Ulcer of right foot, limited to breakdown of skin (HCC) 09/09/19 8:00 AM EDT Office Visit [facility] Pod[facility]ry [address] [address] Nikunj Laboy, DPM Diabetic polyneuropathy associated with type 2 diabetes mellitus (HCC) (Primary Dx); Hammer toe of right foot; Metatarsus adductus of both feet; Bunionette of right foot 09/08/19 [address] [address] Gross, Viral V, DO Medication Refill 09/08/19 [address] [address] Gross, Viral V, DO Medication Refill 08/30/19 10:45 AM EDT Ancillary Procedure [facility] [address] Ulcer of right foot with fat layer exposed (HCC); Diabetic polyneuropathy associated with type 2 diabetes mellitus (HCC); Hammer toe of right foot; Toe pain, right 08/30/19 9:30 AM EDT Office Visit [facility] [address] [address] Eloy Carter, IVON Ulcer of right foot with fat layer exposed (HCC) (Primary Dx); Diabetic polyneuropathy associated with type 2 diabetes mellitus (HCC); Cellulitis of toe of left foot; Hammer toe of right foot; Toe pain, right; Metatarsus adductus of right foot 08/23/19 3:50 PM EDT Office Visit [address] [address] Gross, Viral V, DO Obesity, Class I, BMI 30-34.9 (Primary Dx); Essential hypertension; Dyslipidemia associated with type 2 diabetes mellitus (HCC); Gastroesophageal reflux disease with esophagitis, unspecified whether hemorrhage; Screening for prostate cancer 08/23/19 11:30 AM EDT Office Visit [facility] [place] [address] [place] [address] Jeffy Fuentes MD S/P CABG x 3 (Primary Dx) 08/20/19 Travel 08/20/19 8:44 AM EDT - 08/20/19 11:59 PM EDT Hospital Encounter [facility] [address] [place] [address] Jeffy Fuentes MD SOB (shortness of breath); Ischemic heart disease; S/P CABG x 3 Discharge Disposition: Home or Self Care 08/18/19 1:15 PM EDT Office Visit [facility] [place] [facility] [address] [place] [address] Jasper Tabares DPM Blister of right foot, initial encounter (Primary Dx); Ulcer of right foot, limited to breakdown of skin (HCC); Uncontrolled type 2 diabetes mellitus with hyperglycemia (HCC) 08/17/19 22 Refill [facility] [place] [facility] [address] [place] [address] Gross, Viral V, DO Medication Refill (need several meds refilled.) 08/17/19 22 11:20 AM EDT Office Visit [facility] [place] [facility] [address] [place] [address] Oswaldo Harry MD Right foot pain (Primary Dx) 08/11/19 22 Refill [facility] [place] [facility] [address] [place] [address] Renato, Viral V, DO Central Patient Navigator Outreach (Med refill 1st) 08/02/19 22 Orders Only [facility] [address] [place] [address] Renato Viral V, DO Screening for colon cancer; Screening for cancer of the rectum 07/13/19 22 9:15 AM EDT Office Visit [facility] [address] [place] [address] Araceli Garibay APRN Cervical spondylosis (Primary Dx); DDD (degenerative disc disease), cervical; Degenerative disc disease, lumbar; Lumbar radiculopathy 07/09/19 22 Travel 07/09/19 22 8:30 AM EDT Office Visit [facility] [address] [address] Jeffy Fuentes MD SOB (shortness of breath) (Primary Dx); Ischemic heart disease; S/P CABG x 3; Heart murmur 07/09/19 22 1:54 PM EDT - 07/09/19 22 11:59 PM EDT Hospital Encounter [facility] [address] [place] [address] Drea Acuna APRN Cervical spondylosis Discharge Disposition: Home or Self Care 06/25/19 22 Travel 06/25/19 22 1:29 PM EDT - 06/25/19 11:59 PM EDT Hospital Encounter [facility] [address] [facility] [address] [place] [address] Drea Acuna APRN Sacroiliitis Discharge Disposition: Home or Self Care 06/24/19 1:15 PM EDT Office Visit [facility] [place] [address] [facility] [address] [place] [address] Vladimir Stewart MD Diabetes mellitus without complication (HCC) (Primary Dx); KCS (keratoconjunctivitis sicca) (HCC) 06/21/19 10:40 AM EDT Office Visit [facility] [address] [address] Agustin Graves MD Dyslipidemia associated with type 2 diabetes mellitus (HCC) (Primary Dx); Vitamin D deficiency; Vitamin B12 deficiency 06/16/19 Travel 06/16/19 7:47 AM EDT - 06/16/19 11:59 PM EDT Hospital Encounter [facility] [address] [place] [address] Dyslipidemia associated with type 2 diabetes mellitus (HCC); Vitamin D deficiency; Vitamin B12 deficiency Discharge Disposition: Home or Self Care 06/15/19 Telephone [facility] [address] [address] Agustin Graves MD Labs Only (reminder call) 06/04/19 22 Telephone [facility] [place] [facility] [address] [place] [address] Carlos A Gross V, DO Medication Management 05/31/19 22 10:45 AM EDT Office Visit [facility] [address] [place] [address] Drea Acuna APRN Sacroiliitis (Primary Dx); Cervical spondylosis; DDD (degenerative disc disease), cervical; Degenerative disc disease, lumbar 05/27/19 22 Refill [facility] [place] [facility] [address] [place] [address] Gross, Viral V, DO Medication Refill 05/26/19 22 Refill [facility] [place] [facility] [address] [place] [address] Gross, Viral V, DO Medication Refill 05/25/19 22 Telephone [facility] [address] [place] [address] Drea Acuna APRN Results (MRI) 05/23/19 22 Orders Only [facility] [address] [address] Drea Acuna APRN Cervical spondylolysis (Primary Dx); Cervical spondylosis 05/21/19 7:43 AM EST - 05/21/19 11:59 PM EST Hospital Encounter [facility] [place] [facility] [address] [facility], [place] [id number] Diarrhea, unspecified type Discharge Disposition: Home or Self Care 05/20/19 Travel 05/20/19 1:10 PM EST Office Visit [facility] [place] [facility] [address] [facility] [place] [address] Ruthy Montaño MD Diarrhea, unspecified type (Primary Dx) 05/19/19 22 Refill [facility] [place] [facility] [address] [place] [address] Gross, Viral V, DO Medication Refill 05/14/19 22 Orders Only [facility] [place] [facility] [address] [place] [address] Edith Oropeza APRN Uncontrolled type 2 diabetes mellitus with hyperglycemia (HCC) (Primary Dx) 05/09/19 22 Telephone [facility] [place] [facility] [address] [place] [address] Gross, Viral V, DO Medication Management (metFORMIN XR) 04/29/19 22 Refill [facility] [place] [facility] [address] [place] [address] Gross, Viral V, DO Medication Refill 04/29/19 22 Travel 04/29/19 22 7:29 AM EST - 04/29/19 11:59 PM EST Hospital Encounter [facility] MRI [address] [place] [address] Drea Acuna APRN DDD (degenerative disc disease), cervical Discharge Disposition: Home or Self Care 04/22/19 22 Travel 04/22/19 22 3:00 PM EST - 04/22/19 11:59 PM EST Hospital Encounter [facility] [address] [place] [address] Naveen Lockwood MD Dizziness and giddiness Discharge Disposition: Home or Self Care 04/18/19 22 8:45 AM EST Office Visit [facility] [place] [address] [place] [address] [address] [place] [address] Drea Acuna APRN DDD (degenerative disc disease), cervical (Primary Dx); Lumbar radiculopathy; Degenerative disc disease, lumbar; Spondylosis of lumbar region without myelopathy or radiculopathy 04/13/19 22 Refill [facility] [place] [facility] [address] [place] [address] Vernon Salinas MD Medication Refill 04/12/19 22 Telephone [facility] [place] [facility] [address] [place] [address] Gross, Viral V, DO Medication Management (accu chek glucometer) 04/06/19 22 3:15 PM EST Office Visit [facility] [address] [address] Naveen Lockwood MD Dizziness and giddiness (Primary Dx) 04/05/19 22 Travel 04/05/19 22 7:39 AM EST - 04/05/19 11:59 PM EST Hospital Encounter [facility] [address] [place] [address] [address] [place] [address] Brian, Holley E, FILE[employer] DEVELOPER Spondylosis of lumbar region without myelopathy or radiculopathy Discharge Disposition: Home or Self Care 04/04/19 Travel 04/04/19 9:45 AM EST Office Visit [facility] [place] [id number] [address] Vladimir [place] MD Diabetes mellitus without complication (HCC) (Primary Dx); KCS (keratoconjunctivitis sicca) (HCC); Floppy eyelid syndrome of both eyes; Arcus senilis of both corneas; Combined form of age-related cataract, right eye; Combined form of age-related cataract, left eye; Carotid artery insufficiency syndrome; Blurred vision 04/01/19 Telephone [facility] [place] [address] [address] Gross, Viral V, DO Diabetes 04/01/19 22 Refill [facility] [address] [address] Gross, Viral V, DO Medication Refill 03/29/19 22 [address] [facility] [place] [address] Rosie May RMA Prior Authorization 03/19/19 22 Refill [facility] [address] [place] [address] Omi Daly, DO Medication Refill 03/16/19 22 Telephone [facility] [address] [address] Agustin Graves MD [facility] 03/14/19 [facility] [address] Gross, Viral V, DO Prior Authorization [facility] 03/14/19 Travel 03/14/19 22 8:40 AM EST Office Visit [facility] [address] [phone] Agustin Graves MD Dyslipidemia associated with type 2 diabetes mellitus (HCC) (Primary Dx); Vitamin D deficiency; Vitamin B12 deficiency 03/09/20 21 Refill [facility] [place] [facility] [address] [place] [address] Gross, Viral V, DO Medication Refill 03/09/20 21 Travel 03/09/20 8:32 AM EST - 03/09/20 11:59 PM EST Hospital Encounter [facility] [place] [facility] [address] [place] [address] Dyslipidemia associated with type 2 diabetes mellitus (HCC); Vitamin D deficiency; Vitamin B12 deficiency Discharge Disposition: Home or Self Care 03/07/20 21 Telephone [facility] 1500 [facility] [address] [place] [address] Agustin Graves MD Labs Only 02/17/[address] [place] [address] Carlos Langston MD Anticoagulation (Plavix ) 02/16/20 Patient Outreach [facility] [address] [place] [address] Gross, Viral V, DO Results (IRIS) 02/15/20 Travel 02/15/20 9:30 AM EST Office Visit [address] [place] [address] Holley Torres APRN Lumbar radiculopathy (Primary Dx); Degenerative disc disease, lumbar; Chronic right-sided low back pain with right-sided sciatica; Spondylosis of lumbar region without myelopathy or radiculopathy; Class 2 severe obesity due to excess calories with serious comorbidity and body mass index (BMI) of 35.0 to 35.9 in adult (HCC); Dyslipidemia associated with type 2 diabetes mellitus (HCC) 02/15/20 1:10 PM EST Office Visit [facility] [address] [place] [address] Oswaldo Harry MD Abscess (Primary Dx); Type 2 diabetes mellitus without complication, unspecified whether custodial insulin use (HCC) 02/11/20 21 Refill [facility] [address] [place] [address] Dejuan Rosario APRN Medication Refill 02/10/20 21 Refill [facility] [address] [place] [address] Carlos A Gross V, DO Medication Refill 02/09/20 21 Travel 02/09/20 21 9:18 AM EST - 02/09/20 11:59 PM EST Hospital Encounter [facility] [address] [facility] [address] 4th Floor [address] [place] [address] Carlos Langston MD Lumbar radiculopathy Discharge Disposition: Home or Self Care 02/05/20 21 Refill [facility] [address] [place] [address] Omi Daly, Medication Refill 01/28/20 21 Telephone [facility] [place] [address] [facility] [address] [place] [address] Agustin Graves MD Blood Sugar Problem (Question) 01/28/20 21 Orders Only [facility] [place] [address] [place] [address] [address] [place] [address] Carlos Langston MD Lumbar radiculopathy (Primary Dx) 01/28/20 Travel 01/28/20 21 8:45 AM EST - 01/28/20 11:59 PM EST Hospital Encounter [facility] [address] [place], [place] [id number] Drea Acuna APRN Chronic right-sided low back pain with right-sided sciatica; Degenerative disc disease, lumbar Discharge Disposition: Home or Self Care 01/16/20 Travel 01/16/20 12:15 PM EDT Office Visit [facility] [address] [place] [address] Dolly Lovett APRN Acute left otitis media (Primary Dx) 01/11/20 Travel 01/11/20 9:00 AM EDT Office Visit [facility] [address] [place] [address] Araceli Garibay APRN Degenerative disc disease, lumbar (Primary Dx); Lumbar radiculopathy 01/09/20 Refill [facility] [address] [place] [address] Gross, Viral V, DO Medication Refill 01/08/20 Refill [facility] [address] [facility] [place] [address] Gross, Viral V, DO Medication Refill 01/07/20 Telephone [facility] [address] [place] [address] Drea Acuna APRN Results (MRI-L) 01/05/20 Travel 01/05/20 8:35 AM EDT - 01/05/20 11:59 PM EDT Hospital Encounter [facility] MRI [address] [place] [address] Drea Acuna APRN Chronic right-sided low back pain with right-sided sciatica Discharge Disposition: Home or Self Care 01/04/20 Patient Outreach [facility] [address] [place] [address] Kandace Mario BA, COS ED Follow-Up Call 01/01/20 Travel 01/01/20 2:25 PM EDT - 01/01/20 3:47 PM EDT [facility] [address] [place] [address] Jay Jay Jimenez MD Acute exacerbation of chronic low back pain (Primary Dx) Discharge Disposition: Home or Self Care 12/29/19 Patient Outreach [facility] [address] [place] [address] Kandace Mario BA, COS ED Follow-Up Call 12/28/19 Travel 12/28/19 5:00 PM EDT - 12/28/19 5:49 PM EDT [facility] [address] [place] [address] Lyle Mandel MD Right-sided low back pain with bilateral sciatica, unspecified chronicity (Primary Dx) Discharge Disposition: Home or Self Care 12/21/19 Telephone [facility] [address] [place] [address] Drea Acuna APRN Anticoagulation (Plavix) 12/21/19 Travel 12/21/19 Refill [facility] [address] [place] [address] Gross, Viral V, DO Medication Refill 12/21/19 1:00 PM EDT Office Visit [address] [place] [phone] Drea Acuna APRN Chronic right-sided low back pain with right-sided sciatica (Primary Dx); Degenerative disc disease, lumbar 11/30/19 Travel 11/30/19 4:30 PM EDT Office Visit [facility] [address] [place] [address] Gross, Viral V, DO Uncontrolled type 2 diabetes mellitus with hyperglycemia (HCC) (Primary Dx); Screening for colon cancer; Dyslipidemia associated with type 2 diabetes mellitus (HCC); Essential hypertension; Well adult exam 11/26/19 Travel 11/26/19 8:00 AM EDT Office Visit [address] [phone] Agustin Graves MD Dyslipidemia associated with type 2 diabetes mellitus (HCC) (Primary Dx); Vitamin D deficiency; Vitamin B12 deficiency 11/25/19 Refill [facility] [address] [place] [address] Gross, Viral V, DO Medication Refill (ibuprofen (ADVIL;MOTRIN) 800 mg Oral Tablet (Discontinued)90 Tab/) 11/21/19 Travel 11/21/19 10:10 AM EDT - 11/21/19 11:59 PM EDT Hospital Encounter [facility] [address] Dyslipidemia associated with type 2 diabetes mellitus (HCC); Vitamin D deficiency; Vitamin B12 deficiency Discharge Disposition: Home or Self Care 11/09/[address] [address] Gorss, Viral V, DO Medication Management 10/29/19 Travel 10/29/19 9:00 AM EDT Office Visit [facility] [address] [address] Jeffy Fuentes MD Ischemic heart disease (Primary Dx); S/P CABG x 3 10/28/19 Refill [facility] [address] [place] [address] Dejuan Rosario APRN Medication Refill 10/20/[address] [address] Gross, Viral V, DO Medication Management (lisinopriL (PRINIVIL;ZESTRIL) 5 mg Oral Banhht66 ) 10/20/19 21 Refill [facility] [address] [address] Gross, Viral V, DO Medication Refill (semaglutide (OZEMPIC) 1 mg/dose (2 mg/1.5 mL), atorvastatin (LIPITOR) 80 mg Oral [id number] Tab) 10/02/19 Travel 10/02/19 4:20 PM EDT Office Visit [address] [address] Gross, Viral V, DO Dyslipidemia associated with type 2 diabetes mellitus (HCC) (Primary Dx); Seasonal allergic rhinitis, unspecified trigger; Uncontrolled type 2 diabetes mellitus with hyperglycemia (HCC); Essential hypertension; Gastroesophageal reflux disease with esophagitis, unspecified whether hemorrhage; BPH with urinary obstruction; Generalized osteoarthritis of multiple sites; History of TIA (transient ischemic attack) 09/25/19 21 Refill [facility] 405 [place] [address] Carlos A Gross V, DO Medication Refill 09/17/19 21 Patient Outreach [facility] 405 [place] [address] Carlos A Gross V, DO Central Patient Navigator Outreach (med refill 1) 09/16/19 21 Refill [facility] 100 [facility] [address] Omi Daly, DO Medication Refill 09/07/19 21 Refill [facility] 100 [place] [address] Omi Daly, DO Medication Refill 09/01/19 21 Orders Only [facility] 405 [place] [address] Rosie May, JORGE Seasonal allergic rhinitis, unspecified trigger; Muscle spasm 09/01/19 21 Patient Outreach [facility] [address] [place] [address] Carlos A Gross V, Central Patient Navigator Outreach (Medication Refill Appointment-1st) 09/01/19 21 Refill [facility] 100 [place] [address] Omi Daly, DO Medication Refill 08/11/19 21 Refill [facility] 100 [place] [address] Omi Daly, DO Medication Refill 08/01/19 21 Refill [facility] 100 [place] [address] Vernon Salinas MD Medication Refill 07/28/19 21 Refill [facility] 100 [place] [address] Omi Daly, DO Medication Refill 07/28/19 Plan of Care Documentation [facility] [address] [address] 07/28/19 Travel 07/28/19 5:00 PM EDT Office Visit [facility] [address] [address] Porsha Chamberlain, PT Primary osteoarthritis, right shoulder 07/23/19 Travel 07/23/19 9:15 AM EDT Office Visit [facility] [place] [address] [place] [address] Jeffy Fuentes MD 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, unspecified vessel or lesion type (Primary Dx); S/P CABG x 3; Encounter for pre-operative cardiovascular clearance 07/15/19 Refill [facility] [address] [place] [address] Omi Daly, DO Medication Refill 07/14/19 Travel 07/14/19 8:00 AM EDT Office Visit [facility] [address] [address] Billy Foley MD Other secondary osteoarthritis of right shoulder (Primary Dx); Complete tear of right rotator cuff, unspecified whether traumatic 07/09/19 Telephone [facility] [address] [place] [address] Renato Viral V, DO 07/08/19 Refill [facility] 100 [facility] [address] Omi Daly, DO Medication Refill 06/25/19 21 Refill [facility] 100 [facility] [address] Omi Daly, DO Medication Refill 06/24/19 Travel 06/24/19 10:45 AM EDT Office Visit [facility] [place] [address] [facility] [address] [place] [address] Jeffy Fuentes MD Ischemic heart disease (Primary Dx); 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, unspecified vessel or lesion type; S/P CABG x 3; Ventricular bigeminy 06/18/19 Orders Only [facility] [address] [place] [address] Cammy Rawls RMA 06/17/19 8:01 AM EDT - 06/17/19 11:59 PM EDT Hospital Encounter [facility] [address] [place] [address] Encounter for screening for malignant neoplasm of prostate ; ED (erectile dysfunction) of non-organic origin; Testosterone deficiency; Decreased libido; Uncontrolled type 2 diabetes mellitus with hyperglycemia (HCC); Essential hypertension Discharge Disposition: Home or Self Care 06/16/19 Travel 06/16/19 6:10 PM EDT Office Visit [facility] [address] [place] [address] Carlos A Gross V, DO Testosterone deficiency (Primary Dx); ED (erectile dysfunction) of non-organic origin; Decreased libido; Uncontrolled type 2 diabetes mellitus with hyperglycemia (HCC); Essential hypertension; Encounter for screening for malignant neoplasm of prostate ; BPH with urinary obstruction 06/13/19 Travel 06/13/19 8:15 AM EDT Office Visit [facility] 100 [facility] [address] Vernon Salinas MD Pre-op examination (Primary Dx); Chronic right shoulder pain 06/09/19 Telephone [facility] 100 [facility] [place] [address] Omi Daly DO Medication Management (Cetirizine) 06/09/19 Travel 06/03/19 Travel 05/29/19 21 Refill [facility] 100 [facility] [address] Omi Daly, Medication Refill 05/26/19 Travel 05/25/19 21 Telephone [facility] [address] [place] [address] Omi Daly DO Prior Authorization (OneTouch Ultra test strips ) 05/25/19 21 Refill [facility] [address] [place] [address] Omi Daly DO Medication Refill 05/20/19 21 Travel 05/15/19 21 Refill [facility] [address] [address] Ina Overton MD Medication Refill 05/14/19 21 Refill [facility] [address] [place] [address] Omi Daly DO Medication Refill 05/14/19 Travel 05/14/19 8:10 AM EST Office Visit [address] [place] [address] Agustin Graves MD Dyslipidemia associated with type 2 diabetes mellitus (HCC) (Primary Dx); Vitamin D deficiency; Vitamin B12 deficiency 05/09/19 21 9:11 AM EST - 05/09/19 11:59 PM EST Hospital Encounter [facility] [address] [place] [address] Vitamin B12 deficiency (Primary Dx) Discharge Disposition: Home or Self Care 05/08/19 21 11:58 AM EST - 05/08/19 21 11:59 PM EST Hospital Encounter [facility] [address] [place] [address] Dyslipidemia associated with type 2 diabetes mellitus (HCC); Vitamin D deficiency; Vitamin B12 deficiency Discharge Disposition: Home or Self Care 05/08/19 21 Travel 04/30/19 21 Orders Only [facility] [address] [place] [address] Omi Daly DO Screening for colon cancer; Screening for cancer of the rectum 04/12/19 21 Refill [facility] [address] [place] [address] Omi Daly, DO Medication Refill 04/03/19 21 Refill [facility] 100 [place] [address] Omi Daly, DO Medication Refill 03/31/19 21 Travel 03/23/19 21 Refill [facility] 100 [facility] [address] Omi Daly, DO Medication Refill 03/21/19 21 Refill [facility] 100 [facility] [address] Vernon Salinas MD Medication Refill 03/19/19 21 Telephone [facility] 100 [facility] [address] Omi Daly, DO Medication Management (metFORMIN XR (GLUCOPHAGE-XR) 500 mg Oral Tablet Sustained Release 24 hr) 02/10/20 20 Refill [facility] 100 [facility] [address] Omi Daly, DO Medication Refill 02/02/20 20 Telephone [facility] 101 [place] [address] Dank Palacio MD No Show 02/02/20 20 Refill [facility] [place] [address] Omi Daly, DO Medication Refill 01/29/20 Travel 01/29/20 8:45 AM EST Office Visit [facility] [address] [address] Nikunj Laboy DPM Uncontrolled type 2 diabetes mellitus with hyperglycemia (HCC) (Primary Dx); Paronychia of great toe of left foot; Cellulitis of left foot 01/27/20 20 Refill [facility] 100 [facility] [place] [address] Omi Daly, DO Medication Refill 01/21/20 20 Travel 01/19/20 20 Refill [facility] [address] [place] [address] Vernon Salinas MD Medication Refill 01/19/20 Travel 01/19/20 2:40 PM EST Office Visit [facility] [address] [place] [address] Lyle Solo MD Parotid pleomorphic adenoma (Primary Dx); THAI (obstructive sleep apnea); Snoring 01/19/20 7:30 AM EST Office Visit [facility] [place] [address] [facility] [address] [place] [address] Agustin Graevs MD Dyslipidemia associated with type 2 diabetes mellitus (HCC) (Primary Dx); Vitamin D deficiency; Vitamin B12 deficiency 01/16/20 7:49 AM EST - 01/16/20 11:59 PM EST Hospital Encounter [facility] [address] [place] [address] Dyslipidemia associated with type 2 diabetes mellitus (HCC); Vitamin B12 deficiency Discharge Disposition: Home or Self Care 01/16/20 Travel 01/14/20 Refill [facility] [address] [place] [address] Omi Daly DO Medication Refill (tamsulosin (FLOMAX) 0.4 mg Oral Lbpmauw140 Cap) 01/13/20 Travel 01/13/20 11:49 AM EST - 01/13/20 11:59 PM EST Hospital Encounter [facility] [address] [place], [place] [address] Lyle Solo MD Morgan, Stephen R, DO Parotid mass Discharge Disposition: Home or Self Care 01/09/20 Travel 01/09/20 1:42 PM EDT - 01/09/20 11:59 PM EDT Hospital Encounter [facility] [address] [place] [address] Covid19, [facility] Pre-op testing; Encounter for laboratory testing for COVID-19 virus Discharge Disposition: Home or Self Care 01/06/20 Travel 01/02/20 Refill [facility] 100 [place] [address] Vernon Salinas MD Medication Refill 01/01/20 Travel 01/01/20 9:00 AM EDT Office Visit [facility] [address] [address] Nikunj Laboy, DPM Cellulitis of left foot (Primary Dx); Uncontrolled type 2 diabetes mellitus with hyperglycemia (HCC); Foot cramps; Paronychia of great toe of left foot 12/26/19 Patient Outreach [address] [place] [address] Alondra Menchaca PharmD Medication Management (Adherence Outreach) 12/18/[address] [address] Omi Daly DO Referral 12/17/[address] [place] [address] Vernon Salinas MD Medication Refill 12/15/19 Travel 12/15/19 2:40 PM EDT Office Visit [address] [address] Lyle Solo MD Parotid mass (Primary Dx); Hx of custodial use of blood thinners 12/15/19 9:40 AM EDT Office Visit [facility] [place] [address] [address] Alva Zelaya PA-C Urinary frequency (Primary Dx); BPH with obstruction/lower urinary tract symptoms; Incomplete emptying of bladder 12/12/19 Telephone [facility] 100 [place] [address] Omi Daly DO Referral; Medication Management 12/10/19 Telephone [facility] [address] [place] [address] Omi Daly DO Medication Refill 12/09/19 Telephone [facility] [address] [place] [address] Omi Daly DO Referral Follow-up 12/08/19 10:00 AM EDT Office Visit [facility] [address] [place] [address] Elba Tapia, RN Encounter for support and coordination of transition of care (Primary Dx) 12/08/19 Travel 12/08/19 9:45 AM EDT Office Visit [facility] [address] [place] [address] Omi Daly DO History of TIA (transient ischemic attack) (Primary Dx); Parotid mass; Essential hypertension 12/06/19 Telephone [facility] [address] [place] [address] Omi Daly DO Medication Refill 12/05/19 Travel 12/04/19 Telephone [facility] [place] [address] [place] [address] Marleen Cam, Clerical Staff Other; Procedure (US Parotid Biopsy ) 12/04/19 Patient Outreach [facility] [address] [place] [address] Sasha Messer, RN Hospital Follow Up; ED Follow-Up Call; Care Transition; CM - Medication Reconciliation 12/03/19 Orders Only Adult Med [address] [place] [address] [place] [address] Geri Garcia PAMayaC Parotid mass (Primary Dx) 12/01/19 9:23 PM EDT - 12/03/19 5:38 PM EDT Hospital Encounter [facility] [place] [address] Jordan Eduardo MD Transient ischemic attack, anterior circulation, acute (Primary Dx) Discharge Disposition: Home or Self Care 12/02/19 Travel 12/01/19 Travel 12/01/19 4:15 PM EDT - 12/01/19 8:36 PM EDT Emergency [facility] [address] [place], [place] [phone] Alma Villegas MD Adler, Jordan M, MD TIA (transient ischemic attack) (Primary Dx); Occlusion of left vertebral artery Discharge Disposition: Discharge/Readmit 11/28/19 Travel 11/28/19 8:30 AM EDT Office Visit [facility] [address] [place] [address] Omi Daly, Annual physical exam (Primary Dx); Type 2 diabetes mellitus without complication, without long-term current use of insulin (HCC); Essential hypertension; Sacroiliitis; Class 2 severe obesity due to excess calories with serious comorbidity and body mass index (BMI) of 35.0 to 35.9 in adult (HCC) 11/27/19 Travel 11/20/19 11:16 AM EDT - 11/21/19 2:17 PM EDT Hospital Encounter [facility] [address] [place] [address] Ina Overton MD BPH with obstruction/lower urinary tract symptoms Discharge Disposition: Home or Self Care 11/20/19 Travel 11/20/19 2:15 PM EDT - 11/20/19 3:30 PM EDT Surgery [facility] [address] [place] [address]. [place] [address] Ina Overton MD CYSTOSCOPY TRANSURETHRAL RESECTION PROSTATE - FULGURATION/EVACUATION OF CLOT 11/20/19 2:31 PM EDT Anesthesia Event [facility] [address] [facility] [place] [address] Luis A Rodney MD Collins, Angela, FILEMAKER DEVELOPER 11/18/19 Travel 11/16/19 Travel 11/16/19 2:45 PM EDT - 11/16/19 11:59 PM EDT Hospital Encounter [facility] [address] [place] [address] Covid19, [facility] Pre-op testing; Encounter for laboratory testing for COVID-19 virus Discharge Disposition: Home or Self Care 11/10/19 20 Refill [facility] 100 [facility] [address] Vernon Salinas MD Medication Refill 11/10/19 Travel 11/06/19 Travel 11/06/19 9:45 AM EDT Office Visit [facility] [place] [address] [place] [address] Jeffy Fuentes MD Essential hypertension (Primary Dx); S/P CABG x 3; Ischemic heart disease; 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, unspecified vessel or lesion type 10/29/19 2:00 PM EDT Office Visit [facility] 100 [facility] [address] Vernon Salinas MD Pre-op examination (Primary Dx); BPH with obstruction/lower urinary tract symptoms 10/29/19 Travel 10/28/[address] [address] Merle Mandujano MA Other 10/27/19 Travel 10/27/19 11:20 AM EDT Office Visit [address] [address] Alva Zelaya PA-C BPH with obstruction/lower urinary tract symptoms (Primary Dx); Incomplete bladder emptying; 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 dysfunction; Overactive bladder; Uncontrolled type 2 diabetes mellitus with hyperglycemia (HCC) 10/17/19 20 Telephone [facility] 100 [facility] [address] Omi Daly DO Medication Management 10/15/19 20 Telephone [facility] 100 [facility] [address] Omi Daly DO Prior Authorization (cologuard ) 10/13/19 20 Refill [facility] [address] [facility] [address] Omi Daly DO Medication Refill 10/13/19 Travel 10/13/19 7:30 AM EDT Office Visit [facility] [address] [address] Agustin Graves MD Dyslipidemia associated with type 2 diabetes mellitus (HCC) (Primary Dx); Vitamin B12 deficiency 10/10/19 Telephone [facility] [address] [address] Agustin Graves MD Lab Orders 10/10/19 8:57 AM EDT - 10/10/19 11:59 PM EDT Hospital Encounter [facility] [address] [place] [address] Uncontrolled type 2 diabetes mellitus with hyperglycemia (HCC); Vitamin B12 deficiency; Vitamin D deficiency; Dyslipidemia associated with type 2 diabetes mellitus (HCC); Encounter for screening for malignant neoplasm of prostate ; Annual physical exam Discharge Disposition: Home or Self Care 10/10/19 Travel 10/06/19 Telephone [facility] [address] [address] Agustin Graves MD Labs Only 10/06/19 Refill [facility] [address] [place] [address] Omi Daly DO Medication Refill 09/29/19 Travel 09/29/19 10:20 AM EDT Office Visit [facility] [address] [address] Alva Zelaya PA-C BPH with obstruction/lower urinary tract symptoms (Primary Dx); Incomplete bladder emptying; 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 dysfunction; Overactive bladder; History of UTI; Uncontrolled type 2 diabetes mellitus with hyperglycemia (HCC) 09/11/19 Abstract [facility] [address] [place] [address] Manda Pringle RN 09/10/19 20 Refill [facility] [address] [place] [address] Omi Daly, DO Medication Refill 09/09/19 Telephone [facility] 100 [facility] [address] Omi Daly, DO Medication Management (tamsulosin) 09/08/19 Orders Only [facility] [place] [address] [facility] [address] [place] [address] Ina Overton MD BPH with obstruction/lower urinary tract symptoms 09/03/19 Travel 09/03/19 1:37 PM EDT - 09/03/19 11:59 PM EDT Hospital Encounter [facility] [address] [place] [address] Bilateral shoulder pain, unspecified chronicity Discharge Disposition: Home or Self Care 09/01/19 Travel 09/01/19 8:45 AM EDT Office Visit [facility] [address] [place] [address] Vernon Salinas MD Chronic pain of both shoulders (Primary Dx); Annual physical exam; Encounter for screening for malignant neoplasm of prostate 08/29/19 Travel 08/29/19 Telephone [facility] [address] [place] [address] Omi Daly, Medication Management 08/25/19 Telephone [facility] [address] [facility] [address] [place], [place] [phone] Agustin Graves MD CGMS Interpretation (Shilpi Pro placement); Appointment Needed (MNT Appt ) 08/25/19 Travel 08/25/19 9:00 AM EDT Office Visit [facility] [address] [facility] [address] [place] [phone] Laxmi Major LPN Dyslipidemia associated with type 2 diabetes mellitus (HCC) (Primary Dx) 08/22/19 Travel 08/22/19 Patient Outreach [facility] [address] [place] [address] Omi Daly DO Central Patient Navigator Outreach (AWV, colon, A1c) 08/15/19 20 Refill [facility] 100 [facility] [place] [address] Omi Daly, DO Medication Refill 08/14/19 Telephone [facility] [address] [employer] [place] [phone] Agustin Graves MD CGMS Interpretation (Shilpi placement) 08/14/19 Travel 08/14/19 8:10 AM EDT Office Visit [address] [employer] [place] [phone] Agustin Graves MD Dyslipidemia associated with type 2 diabetes mellitus (HCC) (Primary Dx); Vitamin B12 deficiency; Vitamin D deficiency 08/13/[address] [employer] [address] [place] [phone] Agustin Graves MD Other (Office Visit Reminder) 08/11/19 4:30 PM EDT - 08/11/19 11:59 PM EDT Hospital Encounter [facility] [address] [address] Uncontrolled type 2 diabetes mellitus with hyperglycemia (HCC); Dyslipidemia associated with type 2 diabetes mellitus (HCC); Vitamin D deficiency; Vitamin B12 deficiency Discharge Disposition: Home or Self Care 08/11/19 Travel 08/01/19 20 Refill [facility] [address] [place] [address] Omi Daly, Medication Refill 07/31/19 20 Telephone [facility] [address] [place] [phone] Agustin Graves MD Schedule Appointment 07/29/19 20 Refill [facility] [address] [place] [address] Vernon Salinas MD Medication Refill 07/27/19 20 Refill [facility] [address] [place] [address] Omi Daly, DO Medication Refill 07/18/19 20 Refill [facility] 100 [facility] [place] [address] Omi Daly, DO Medication Refill 07/17/19 20 Telephone [facility] [address] Alva Zelaya PA-C Other 07/04/19 20 Refill [facility] 1500 [facility] [address] [place] [phone] Agustin Graves MD Medication Refill 06/27/[address] [address] Alva Zelaya PA-C Other (trimix prescription) 06/27/19 20 Travel 06/27/19 9:00 AM EDT Office Visit [address] [address] Alva Zelaya PA-C Other male erectile dysfunction (Primary Dx); BPH with obstruction/lower urinary tract symptoms; BXO (balanitis xerotica obliterans); Uncontrolled type 2 diabetes mellitus with hyperglycemia (HCC) 06/18/19 20 Refill [facility] 100 [place] [address] Omi Daly, DO Medication Refill 06/18/19 20 Refill [facility] [address] [place] [address] Omi Daly, DO Medication Refill 06/18/19 20 Travel 06/11/19 20 Refill [facility] 100 [facility] [place] [address] Omi Daly DO Medication Refill 05/23/19 Travel 05/23/19 Telephone [facility] [address] [place] [address] Omi Daly DO Diarrhea 05/14/19 Travel 05/12/19 Refill [facility] 1500 [facility] [address] [place] [address] Agustin Graves MD Medication Refill 05/09/19 9:45 AM EST Office Visit [facility] [address] Ina Overton MD BPH with obstruction/lower urinary tract symptoms (Primary Dx); Nocturia; BXO (balanitis xerotica obliterans); 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 dysfunction; Incomplete emptying of bladder; Recurrent UTI; Uncontrolled type 2 diabetes mellitus with hyperglycemia (HCC); Obstructive sleep apnea syndrome 05/06/19 Travel 04/30/19 Telephone [place] [address] [address] Ina Overton MD Medication Management 04/23/19 Patient Outreach [facility] 100 [place] [address] Alondra Menchaca PharmD Medication Management (CMR) 04/22/19 Travel 04/22/19 1:15 PM EST Office Visit [facility] 100 [place] [address] Vernon Salinas MD Viral URI (Primary Dx); Essential hypertension; Gastroesophageal reflux disease without esophagitis 04/18/19 Orders Only [facility] [address] [address] Omi Daly DO Screening for colon cancer; Screening for cancer of the rectum 04/16/19 10:05 AM EST - 04/16/19 11:59 PM EST Hospital Encounter [facility] [address] [place] [address] Dyslipidemia associated with type 2 diabetes mellitus (HCC); Vitamin D deficiency; Vitamin B12 deficiency Discharge Disposition: Home or Self Care 04/10/19 2:45 PM EST Office Visit [facility] [place] [address] [place] [address] Jeffy Fuentes MD Ischemic heart disease (Primary Dx); S/P CABG x 3; Other specified hypotension 04/09/19 11:00 AM EST Office Visit [address] [address] Vernon Salinas MD Dermatitis (Primary Dx) 04/08/19 [address] [address] Omi Daly, DO Medication Refill 04/07/19 2:15 PM EST Office Visit [facility] [address] [phone] Alva Zelaya PA-C Overactive bladder (Primary Dx); Incomplete emptying of bladder; BPH with obstruction/lower urinary tract symptoms; Uncontrolled type 2 diabetes mellitus with hyperglycemia (HCC); Abnormality of penis 04/07/19 20 Refill [facility] 1500 [facility] [address] [place] [address] Agustin Graves MD Medication Refill 03/18/19 [address] [address] Omi Daly, DO Medication Refill 03/14/19 20 Refill [facility] 100 [place] [address] Omi Daly, DO Medication Refill 03/14/19 11:00 AM EST - 03/14/19 11:59 PM EST Hospital Encounter [facility] [address] [place] [address] Jeffy Fuentes MD Ischemic heart disease; 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, unspecified vessel or lesion type; S/P CABG x 3; Dizziness Discharge Disposition: Home or Self Care 03/11/20 19 Refill [facility] [address] [place] [address] MalikaOmi gasca, DO Medication Refill 02/21/20 10:45 AM EST Office Visit [facility] [address] [address] Jeffy Fuentes MD 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, unspecified vessel or lesion type (Primary Dx); Ischemic heart disease; S/P CABG x 3; Dizziness; Lightheadedness; Other specified hypotension 02/14/20 8:30 AM EST Office Visit [address] [address] Vernon Salinas MD Essential hypertension (Primary Dx); Gastroesophageal reflux disease without esophagitis; Mixed hyperlipidemia 02/03/20 [address] [address] Malika, Omi, DO Medication Refill 02/02/20 8:30 AM EST Office Visit [address] [address] Dejuan Rosario APRN Psoriasis of scalp (Primary Dx); Acute pain of left shoulder; Uncontrolled type 2 diabetes mellitus with hyperglycemia (HCC); Class 2 severe obesity due to excess calories with serious comorbidity and body mass index (BMI) of 35.0 to 35.9 in adult (HCC); Bradycardia; Flu-like symptoms 01/30/20 3:10 PM EST Office Visit [facility] 1500 [facility] [address] [place] [address] Agustin Graves MD Dyslipidemia associated with type 2 diabetes mellitus (HCC) (Primary Dx); Vitamin B12 deficiency; Vitamin D deficiency 01/28/20 19 Telephone [facility] 100 [place] [address] Omi Daly, DO Orders 01/26/20 11:14 AM EST - 01/26/20 11:59 PM EST Hospital Encounter [facility] [address] [place] [address] Dyslipidemia associated with type 2 diabetes mellitus (HCC); Vitamin D deficiency; Vitamin B12 deficiency; Muscle pain Discharge Disposition: Home or Self Care 01/26/20 11:00 AM EST Ancillary Procedure [facility] [address] [place] [address] Chronic left shoulder pain 01/26/20 8:15 AM EST Office Visit [facility] 100 [place] [address] Vernon Salinas MD Flu vaccine need (Primary Dx); Chronic left shoulder pain; Muscle pain; Essential hypertension; Mixed hyperlipidemia 01/24/20 3:30 PM EST Office Visit [facility] [address] [place] [address] Delma Rothman, RD,LD,CDE Obesity, Class I, BMI 30-34.9 (Primary Dx) 01/21/20 19 Refill [facility] 100 [facility] [place] [address] Omi Daly, DO Medication Refill 01/17/20 19 Refill [facility] 100 [facility] [place] [address] Omi Daly, DO Medication Refill 01/10/20 5:00 PM EDT Office Visit [facility] [address] [place] [address] Obesity (BMI 30-39.9) (Primary Dx) 12/27/19 4:30 PM EDT Office Visit [facility] [address] [place] [address] Delma Rothman, RD,LD,CDE Obesity (BMI 30-39.9) (Primary Dx) 12/24/19 19 Telephone [facility] 100 [facility] [place] [address] Omi Daly DO Medication Change 12/21/19 Refill [facility] [address] [place] [address] Omi Daly, Medication Refill 12/17/19 Refill [facility] [address] [place] [address] Omi Daly, Medication Refill 12/11/19 Refill [facility] 100 [facility] [place] [address] Vernon Salinas MD Medication Refill 12/10/19 Telephone [facility] [address] [place] [address] Oim Daly DO Prior Authorization 12/10/19 4:15 PM EDT Office Visit [facility] [address] [place] [address] Osman Hagen MD Dyslipidemia associated with type 2 diabetes mellitus (HCC) (Primary Dx); Uncontrolled type 2 diabetes mellitus with hyperglycemia (HCC); Essential hypertension; Mixed hyperlipidemia; SOB (shortness of breath); Elevated lipoprotein(a); Vitamin B12 deficiency; Class 2 severe obesity due to excess calories with serious comorbidity and body mass index (BMI) of 35.0 to 35.9 in adult (HCC); Vitamin D deficiency 12/07/19 Telephone [facility] 100 [place] [address] Omi Daly DO Other 12/04/19 5:00 PM EDT Office Visit [facility] [address] [place] [address] 2, Janeth Rn Obesity (BMI 30-39.9) (Primary Dx) 11/29/19 19 Refill [facility] [address] [place] [address] Vernon Salinas MD Medication Refill 11/29/19 Refill [facility] [address] [place] [address] Omi Daly, DO Medication Refill 11/28/19 19 Refill [facility] 1500 [facility] [address] [place] [address] Agustin Graves MD Medication Refill 11/27/19 4:56 PM EDT - 11/27/19 11:59 PM EDT Hospital Encounter [facility] [address] [place] [address] BPH with obstruction/lower urinary tract symptoms Discharge Disposition: Home or Self Care 11/27/19 1:00 PM EDT Office Visit [facility] 100 [place] [address] Vernon Salinas MD Annual physical exam (Primary Dx); Viral URI with cough; Essential hypertension; Mixed hyperlipidemia 11/27/19 6:00 PM EDT Office Visit [facility] [address] [place] [address],LD,CDE Obesity (BMI 30-39.9) (Primary Dx) 11/27/19 4:00 PM EDT Office Visit [facility] [address] [address] Alva Zelaya, PAMayaC Incomplete bladder emptying (Primary Dx); BPH with obstruction/lower urinary tract symptoms; Enlarged prostate 11/22/19 19 Refill [facility] [address] [place] [address] Omi Daly, DO Medication Refill 11/22/19 5:30 PM EDT Office Visit [facility] [address] [place] [address] Obesity (BMI 30-39.9) (Primary Dx) 11/20/19 4:15 PM EDT Office Visit [facility] [address] [place] [address] Osman Hagen MD Dyslipidemia associated with type 2 diabetes mellitus (HCC) (Primary Dx); Gastroesophageal reflux disease without esophagitis; Essential hypertension; Mixed hyperlipidemia; Vitamin B12 deficiency; Vitamin D deficiency; Class 2 severe obesity due to excess calories with serious comorbidity and body mass index (BMI) of 35.0 to 35.9 in adult (HCC) 11/16/19 7:00 PM EDT - 11/16/19 11:59 PM EDT Hospital Encounter [facility] Sleep Disorder Center [address] [place] [address] Obstructive sleep apnea (Primary Dx) Discharge Disposition: Home or Self Care 11/06/19 5:30 PM EDT Office Visit [facility] [address] [place] [address] Obesity (BMI 30-39.9) (Primary Dx); Dietary counseling and surveillance 11/01/19 Refill [facility] [address] [place] [address] Omi Daly DO Medication Refill 10/30/19 9:50 AM EDT Office Visit [facility] 1500 [facility] [address] [place] [address] Agustin Graves MD Dyslipidemia associated with type 2 diabetes mellitus (HCC) (Primary Dx); Vitamin B12 deficiency; Elevated lipoprotein(a); Vitamin D deficiency 10/29/19 6:00 PM EDT Office Visit [facility] [address] [place] [address] Obesity (BMI 30-39.9) (Primary Dx) 10/26/19 3:45 PM EDT Office Visit [facility] 100 [place] [address] Dejuan Rosario APRN UTI (urinary tract infection), uncomplicated (Primary Dx); Dysuria 10/26/19 Telephone [facility] [address] [place] [address] Omi aDly DO Other 10/23/19 2:30 PM EDT - 10/23/19 11:59 PM EDT Hospital Encounter [facility] Sleep [facility] [address] [place] [address] Obstructive sleep apnea (Primary Dx) Discharge Disposition: Home or Self Care 10/23/19 2:15 PM EDT Office Visit [facility] 6[address] [facility] [address] [place] [address] Ruben Kelly MD Excessive sleepiness; Primary snoring; Obstructive sleep apnea; Obesity due to excess calories without serious comorbidity, unspecified classification 10/22/19 3:48 PM EDT - 10/22/19 11:59 PM EDT Hospital Encounter [facility] [address] [place] [address] Dyslipidemia associated with type 2 diabetes mellitus (HCC); Elevated lipoprotein(a); Vitamin D deficiency Discharge Disposition: Home or Self Care 10/22/19 Telephone [facility] [address] [place] [address] Omi Daly DO Dizziness 10/22/[address] [place] [address] Agustin Graves MD Labs Only 10/22/19 6:30 PM EDT Office Visit [facility] [address] [place] [address] Delma Rothman, RD,LD,CDE Obesity (BMI 30-39.9) (Primary Dx) 10/20/19 19 Refill [facility] [address] [place] [address] Omi Daly DO Medication Refill 10/18/19 19 Refill [facility] [address] [facility] [address] [place], [place] [phone] Stevie Acosta MD Medication Refill 10/17/19 19 Telephone [facility] [address] [place] [address] Omi Daly, Other 10/15/19 4:00 PM EDT Office Visit [facility] [address] [place] [address] Omi Daly, Dyslipidemia associated with type 2 diabetes mellitus (HCC) (Primary Dx); Uncontrolled type 2 diabetes mellitus with hyperglycemia (HCC); Type 2 diabetes mellitus without complication, unspecified whether frame stripper and crusher insulin use (HCC); Essential hypertension 10/15/19 11:15 AM EDT Office Visit [facility] [address] [place] [address] Osman Hagen MD 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, unspecified vessel or lesion type (Primary Dx); Elevated lipoprotein(a); Gastroesophageal reflux disease without esophagitis; Essential hypertension; Mixed hyperlipidemia; S/P CABG x 3; Uncontrolled type 2 diabetes mellitus with hyperglycemia (HCC); Vitamin D deficiency 10/12/19 11:15 AM EDT Office Visit [facility] [address] [place] [address] Drea Acuna APRN Degenerative disc disease, lumbar (Primary Dx); Chronic pain syndrome; Sacroiliitis; Spondylosis of lumbar region without myelopathy or radiculopathy 10/08/19 5:30 PM EDT Office Visit [facility] [address] [place] [address] 2, Janeth Rn Obesity (BMI 30-39.9) (Primary Dx) 10/04/19 6:00 PM EDT - 10/04/19 11:59 PM EDT Hospital Encounter [facility] Physical Therapy [address] [place] [address] Rafia Thomas, PT Discharge Disposition: Home or Self Care 10/02/19 19 Refill [facility] 100 [facility] [address] mOi Daly, Medication Refill 09/21/19 19 8:15 AM EDT - 09/21/19 8:45 AM EDT Surgery [facility] [place] [address] Stevie Acosta MD ESOPHAGOGASTRODUODENOSCOPY (ANESTHESIA) 09/21/19 8:25 AM EDT Anesthesia Event [facility] [place] [address] Mary Luna MD Merkle Serey, Jennifer L, NP 09/21/19 7:14 AM EDT - 09/21/19 9:51 AM EDT Hospital Encounter [facility] [place] [address] Stevie Acosta MD Eosinophilic esophagitis Discharge Disposition: Home or Self Care 09/17/19 19 Refill [facility] [address] [place] [address] Vernon Salinas MD Medication Refill 09/11/19 7:00 PM EDT - 09/11/19 11:59 PM EDT Hospital Encounter [facility] Sleep Disorder Center [address] [place] [address] Obstructive sleep apnea (Primary Dx) Discharge Disposition: Home or Self Care 09/04/19 5:00 PM EDT - 09/04/19 11:59 PM EDT Hospital Encounter [facility] Physical Therapy [address] [place] [address] Rafia Thomas, PT Discharge Disposition: Home or Self Care 09/03/19 11:00 AM EDT Office Visit [facility] [address] [facility] [address] [place] [address] Ruben Kelly MD Primary snoring; Obstructive sleep apnea 09/02/19 19 Refill [facility] 100 [facility] [place] [address] Omi Daly, Medication Refill 08/30/19 Refill [facility] [address] [place] [address] Vernon Salinas MD Medication Refill 08/30/19 19 5:30 PM EDT - 08/30/19 11:59 PM EDT Hospital Encounter [address] [place] [address] Rafia Thomas, PT Discharge Disposition: Home or Self Care 08/28/19 11:30 AM EDT Office Visit [facility] [address] [place] [address] Urvashi Cowart, DOMONIQUE Obesity (BMI 30-39.9) (Primary Dx) 08/27/19 Refill [facility] [address] [place] [address] MalikaOmi gasca, DO Medication Refill 08/21/19 Refill [facility] [address] [place] [address] MalikaOmi, DO Medication Refill 08/16/19 19 Telephone [facility] [address] [place] [address] MalikaOmi lewis, DO Note 08/14/19 2:00 PM EDT Office Visit [facility] [address] [place] [address] Obesity, Class II, BMI 35-39.9 (Primary Dx) 08/14/19 19 4:42 PM EDT - 08/14/19 11:59 PM EDT Hospital Encounter [address] [place] [address] Rafia Thomas, PT Discharge Disposition: Home or Self Care 08/13/19 19 Orders Only [address] [place] [address] Agustin Graves MD Uncontrolled type 2 diabetes mellitus with hyperglycemia (HCC) (Primary Dx) 08/13/19 19 Telephone [facility] [address] [place] [address] Omi Daly, DO Prior Authorization 08/10/19 19 Telephone [facility] 100 [place] [address] Omi Daly, DO Prior Authorization 08/09/19 19 Telephone [facility] [address] [place] [address] Omi Daly, DO Prior Authorization 08/09/19 19 4:59 PM EDT - 08/09/19 11:59 PM EDT Hospital Encounter [facility] Physical Therapy [address] [place] [address] Rafia Thomas, PT Discharge Disposition: Home or Self Care 08/07/19 5:20 PM EDT - 08/07/19 11:59 PM EDT Hospital Encounter [facility] Physical [address] [place] [address] Rafia Thomas, PT Discharge Disposition: Home or Self Care 08/07/19 8:15 AM EDT Office Visit [facility] [address] [place] [address] Barbara Cole APRN Vitamin D deficiency (Primary Dx); SOB (shortness of breath); DDD (degenerative disc disease), lumbar; Elevated lipoprotein(a); Esophageal dysphagia; Dyslipidemia associated with type 2 diabetes mellitus (HCC); Uncontrolled type 2 diabetes mellitus with hyperglycemia (HCC); Essential hypertension; Mixed hyperlipidemia; S/P CABG x 3 08/03/19 19 Telephone [facility] 1500 [facility] [address] [place] [address] Agustin Graves MD Results 08/02/19 19 Orders Only [facility] 1500 [facility] [address] [place] [address] Agustin Graves MD Dyslipidemia associated with type 2 diabetes mellitus (HCC) (Primary Dx); Elevated lipoprotein(a); Vitamin D deficiency 08/02/19 19 Refill [facility] [address] [place] [address] Omi Daly DO Medication Refill 07/31/19 5:14 PM EDT - 07/31/19 11:59 PM EDT Hospital Encounter [facility] Physical Therapy [address] [place] [address] Rafia Thomas, PT Discharge Disposition: Home or Self Care 07/30/19 12:25 PM EDT - 07/30/19 11:59 PM EDT Hospital Encounter [facility] [address] [place] [address] Dyslipidemia associated with type 2 diabetes mellitus (HCC); Vitamin D deficiency Discharge Disposition: Home or Self Care 07/30/19 Telephone [facility] [address] [address] Agustin rGaves MD CGMS Interpretation (Shilpi Pro Due) 07/30/19 5:00 PM EDT Office Visit [facility] [address] [place] [address],LD,CDE Obesity (BMI 30-39.9) (Primary Dx) 07/30/19 11:20 AM EDT Office Visit [facility] [address] [address] Agustin Graves MD Dyslipidemia associated with type 2 diabetes mellitus (HCC) (Primary Dx); Vitamin D deficiency; 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, unspecified vessel or lesion type 07/25/19 Telephone [facility] [address] [facility] [address] [address] Carlos Langston MD Orders (PT orders) 07/24/19 4:12 PM EDT - 07/24/19 11:59 PM EDT Hospital Encounter [facility] Physical [address] [place] [address] Rafia Thomas, PT Discharge Disposition: Home or Self Care 07/23/19 19 1:30 PM EDT Office Visit [facility] [address] [place] [address] Delma Rothman, RD,LD,CDE Uncontrolled type 2 diabetes mellitus with hyperglycemia (HCC) (Primary Dx) 07/20/19 19 Telephone [facility] [address] [facility] [address] [facility] [place] [address] Stevie Acosta MD Results; Orders 07/18/19 9:45 AM EDT - 07/18/19 10:00 AM EDT Surgery [facility] [address] [facility] [place] [address] Stevie Acosta MD ESOPHAGOGASTRODUODENOSCOPY (ANESTHESIA) 07/18/19 10:01 AM EDT Anesthesia Event [facility] [address] [place] [address] Barber Lindsey MD Collins, Angela, BRIELLE 07/18/19 8:00 AM EDT - 07/18/19 11:13 AM EDT Hospital Encounter [facility] [address] [place] [address] Stevie Acosta MD Pharyngoesophageal dysphagia Discharge Disposition: Home or Self Care 07/16/19 19 1:30 PM EDT Office Visit [facility] [address] [place] [address] Delma Rothman, RD,LD,CDE Uncontrolled type 2 diabetes mellitus with hyperglycemia (HCC) (Primary Dx) 07/13/19 19 Refill [facility] [place] [address] Omi Daly DO Medication Refill 07/12/19 19 8:45 AM EDT Office Visit [facility] [place] [address] [place] [address] [address] [place] [address] Carlos Langston MD Spondylosis of lumbar region without myelopathy or radiculopathy (Primary Dx); Chronic pain syndrome; Sacroiliitis 07/09/19 Telephone [facility] [address] [place] [address] Analy Stafford MA Results 07/09/19 1:30 PM EDT Office Visit [facility] [address] [place] [address] Obesity, Class III, BMI 40-49.9 (morbid obesity) (HCC) (Primary Dx) 07/05/19 Telephone [facility] [address] [facility] [address] [place] [address] Lyle Rangel MD PHD Other 07/05/19 1:30 PM EDT - 07/05/19 11:59 PM EDT Hospital Encounter [facility] [address] [address] Snoring; DDD (degenerative disc disease), lumbar; Gastroesophageal reflux disease without esophagitis; Essential hypertension; Other hyperlipidemia; S/P CABG x 3; Uncontrolled type 2 diabetes mellitus with hyperglycemia ([facility]); Vitamin B12 deficiency; Vitamin D deficiency; Ischemic heart disease Discharge Disposition: Home or Self Care 07/03/19 19 Refill [facility] [address] [place] [address] Omi Daly DO Medication Refill 06/28/19 9:30 AM EDT Office Visit [facility] [address] [place] [address] Barbara Cole APRN Snoring (Primary Dx); DDD (degenerative disc disease), lumbar; Gastroesophageal reflux disease without esophagitis; Essential hypertension; Other hyperlipidemia; S/P CABG x 3; Uncontrolled type 2 diabetes mellitus with hyperglycemia ([facility]); Vitamin B12 deficiency; Vitamin D deficiency; Ischemic heart disease 06/19/19 19 Refill [facility] [address] [place] [place] [address] Vernon Salinas MD Medication Refill 06/08/19 19 Refill [facility] [address] [facility] [place] [address] Patsy Padron MD Medication Refill 05/30/19 Refill CORIN[facility] Walker [address] [place] [address] Omi Daly DO Medication Refill 05/29/19 1:45 PM EDT Office Visit [facility]y Wale[facility] [address] [place] [address] Vernon Salinas MD Obesity, Class II, BMI 35-39.9 (Primary Dx); Type 2 diabetes mellitus without complication, unspecified whether custodial insulin use (HCC); Essential hypertension 05/28/19 2:40 PM EDT - 05/28/19 11:59 PM EDT Hospital Encounter [facility] [address] [place] [address] Type 2 diabetes mellitus without complication, without long-term current use of insulin (HCC) Discharge Disposition: Home or Self Care 05/28/19 10:45 AM EDT Office Visit [facility] [address] [address] Ina Overton MD Benign non-nodular prostatic hyperplasia with lower urinary tract symptoms (Primary Dx); Incomplete bladder emptying; Overactive bladder; Uncontrolled type 2 diabetes mellitus with hyperglycemia (HCC); Yeast dermatitis of penis; Phimosis; Frequency of micturition; Glucosuria; Enlarged prostate 05/21/19 Orders Only [facility] Cristy Walker [address] [place] [address] Vernon Salinas MD Type 2 diabetes mellitus without complication, without long-term current use of insulin (HCC) (Primary Dx) 05/21/19 Telephone [facility] Cristy Walker [address] [place] [address] Omi Daly DO Orders 05/21/19 11:35 AM EDT Hospital Encounter [facility] [address] [place] [address] Left without seen 05/16/19 3:45 PM EST Office Visit [facility] [address] [place] [address] Vernon Salinas MD Acute bacterial sinusitis (Primary Dx); Cellulitis of leg, left 05/16/19 Telephone [facility] [address] [place] [address] Omi Daly DO Medication Management 05/16/19 Refill [facility] [address] [place] [address] Omi Daly DO Medication Refill 05/11/19 7:41 AM EST - 05/11/19 11:59 PM EST Hospital Encounter [facility] [address] [place] [address] Building [address] 4[address] [place] [address] Chelita Reynoso APRN Spondylosis of lumbar region without myelopathy or radiculopathy Discharge Disposition: Home or Self Care 04/29/19 3:00 PM EST Office Visit [facility] [address] [facility] [address] Vernon Salinas MD Type 2 diabetes mellitus without complication, without long-term current use of insulin (HCC) (Primary Dx); Obesity, Class II, BMI 35-39.9; DDD (degenerative disc disease), lumbar 04/25/19 Telephone [facility] [address] [place] [address] Chelita Reynoso APRN Other (RFA Denial) 04/23/19 Telephone [facility] [address] [facility] [place] [address] Omi Daly DO Referral 04/23/19 8:30 AM EST Procedure visit [facility] U[facility] [address] [place] [address] Ina Overton MD Benign non-nodular prostatic hyperplasia with lower urinary tract symptoms (Primary Dx); Frequency of micturition; Incomplete bladder emptying; History of UTI; 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 dysfunction; Glucosuria; Uncontrolled type 2 diabetes mellitus with hyperglycemia (HCC); Candidal balanitis 04/10/19 10:30 AM EST Office Visit [facility] [address] [phone] Ina Overton MD Benign non-nodular prostatic hyperplasia with lower urinary tract symptoms (Primary Dx); Weak urinary stream; History of UTI; Overactive bladder; Urge incontinence; Yeast dermatitis of penis; Uncontrolled type 2 diabetes mellitus with hyperglycemia (HCC); Candidal balanitis; Glucosuria; Prostate cancer screening 04/04/19 19 Refill [facility] [address] [facility] [place] [address] Starla Nice MA Medication Refill 03/27/19 19 Refill [facility] [address] [facility] [place] [address] Omi Daly, Medication Refill 03/25/19 19 Refill [facility] [address] [facility] [place] [address] Omi Daly, DO Medication Refill 03/21/19 19 2:00 PM EST Office Visit [facility] [address] [facility] [place] [address] Vernon Salinas MD Screening for colon cancer (Primary Dx); Controlled type 2 diabetes mellitus without complication, without long-term current use of insulin (HCC); Acute bacterial sinusitis; Esophageal stricture 03/18/19 19 Refill [facility] [address] [facility] [place] [address] Vernon Salinas MD Medication Refill 03/13/19 10:00 AM EST Office Visit [facility] [address] [phone] Chelita Reynoso APRN Spondylosis of lumbar region without myelopathy or radiculopathy (Primary Dx); Chronic pain syndrome; Sacroiliitis 03/07/20 18 8:45 AM EST - 03/07/20 18 11:59 PM EST Hospital Encounter [facility] [address] [facility] Building [address] 4[address] Floor [address] [place] [address] Chelita Reynoso APRN Spondylosis of lumbar region without myelopathy or radiculopathy Discharge Disposition: Home or Self Care 03/02/20 18 Refill [facility] 100 [facility] [place] [address] Vernon Salinas MD Medication Refill 02/23/20 18 Refill [facility] [address] [facility] [place] [address] Omi Daly, DO Medication Refill 02/21/20 18 Refill [facility] [address] [facility] [place] [address] Omi Daly, DO Medication Refill 02/15/20 18 Refill [facility] [address] [facility] [place] [address] Omi Daly, DO Medication Refill 02/12/20 18 Refill [facility] [address] [facility] [place] [address] Vernon Salinas MD Medication Refill 02/05/20 18 Refill [facility] [address] [facility] [place] [address] Omi Daly, DO Medication Refill 01/31/20 18 Refill [facility] [address] [facility] [place] [address] Omi Daly, DO Medication Refill 01/29/20 18 Telephone [facility] [address] [facility] [place] [address] Omi Daly, Medication Management 01/26/20 18 Refill [facility] [address] [facility] [place] [address] Omi Daly, DO Medication Refill 01/22/20 18 Refill [facility] [address] [facility] [place] [address] Starla Nice MA Medication Refill 01/18/20 18 Refill [facility] [address] [facility] [address] [place] [address] Angelina Zaldivar MD Medication Refill 01/11/20 18 11:00 AM EDT Office Visit [address] [phone] Chelita Reynoso APRN Spondylosis of lumbar region without myelopathy or radiculopathy (Primary Dx); Chronic pain syndrome; Sacroiliitis 12/21/19 18 Refill [facility] [address] [place] [address] Vernon Salinas MD Medication Refill 12/13/19 [address] [place] [address] Carlos Langston MD Medication Refill (Flexeril) 12/11/19 18 Refill [facility] [address] [phone] Jeffy Fuentes MD Medication Refill (Isosorb Tate) 12/11/19 18 Refill [place] [address] [place] [phone] Carlos Langston MD Medication Refill (Flexeril) 12/07/19 18 7:33 AM EDT - 12/07/19 18 11:59 PM EDT Hospital Encounter [facility] [address] [place] [address] 1 [address] 4th [address] [place] [address] Carlos Langston MD Grainger, Jonathan Kern, MD Chronic pain syndrome; Spondylosis of lumbar region without myelopathy or radiculopathy; Sacroiliitis Discharge Disposition: Home or Self Care 12/06/19 18 Telephone [facility] [address] [place] [address] Carlos Langston MD Other (procedure) 12/02/19 9:03 AM EDT - 12/02/19 11:59 PM EDT Hospital Encounter [facility] [address] [place] [address] Hepatitis C antibody positiv e in blood; Dysuria Discharge Disposition: Home or Self Care 12/02/19 18 Refill [facility] [place] [address] Omi Daly, DO Medication Refill 12/02/19 9:30 AM EDT Office Visit [facility] [place] [address] Vernon Salinas MD Dysuria (Primary Dx); Essential hypertension; Controlled type 2 diabetes mellitus without complication, without long-term current use of insulin (HCC); Hepatitis C antibody positive in blood 11/28/19 Orders Only [facility] [address] [place] [address] Vernon Salinas MD Hepatitis C antibody positive in blood (Primary Dx) 11/27/19 18 Orders Only [facility] [address] [facility] [address] Vernon Salinas MD Type 2 diabetes mellitus without complication, unspecified whether frame stripper and crusher insulin use (HCC) (Primary Dx) 11/26/19 9:17 AM EDT - 11/26/19 11:59 PM EDT Hospital Encounter [facility] [address] [place] [address] Dysuria; Annual physical exam; Enlarged prostate; Type 2 diabetes mellitus without complication, unspecified whether frame stripper and crusher insulin use (HCC) Discharge Disposition: Home or Self Care 11/23/19 18 Refill [facility] [address] [facility] [address] Omi Daly, DO Medication Refill (Metoprolol) 11/16/19 18 Refill [facility] [address] [facility] [address] Starla Nice MA Medication Refill 11/16/19 18 Refill [facility] [address] [facility] [address] Omi Daly, DO Medication Refill 11/14/19 18 8:00 AM EDT Office Visit [facility] [address] [facility] [address] Vernon Salinas MD Enlarged prostate (Primary Dx); Chronic fatigue 11/09/19 Telephone [place] [address] [place] [address] Carlos Langston MD Results (x ray) 11/07/19 4:12 PM EDT - 11/07/19 11:59 PM EDT Hospital Encounter [address] [address] Carlos Langston MD Chronic pain syndrome; Spondylosis of lumbar region without myelopathy or radiculopathy; Sacroiliitis Discharge Disposition: Home or Self Care 11/07/19 3:00 PM EDT Office Visit [place] [address] [place] [address] Carlos Langston MD Spondylosis of lumbar region without myelopathy or radiculopathy (Primary Dx); Chronic pain syndrome; Sacroiliitis 11/03/19 18 Telephone [facility] [address] [facility] [address] Omi Daly, DO Medication Refill 10/29/19 18 5:30 PM EDT Office Visit [facility] Ur[facility] Care [address] [address] Serg Mcgill DO Puncture wound of right foot, initial encounter (Primary Dx) 10/27/19 18 4:00 PM EDT Clinical Support [facility] [address] [facility] [address] Michelle Baig, RMYoli Immunization due (Primary Dx) 10/16/19 18 3:30 PM EDT Office Visit [facility] [address] [place] [address] Vernon Salinas MD Annual physical exam (Primary Dx); DDD (degenerative disc disease), lumbar; Chronic right-sided low back pain with right-sided sciatica 10/12/19 5:12 PM EDT - 10/12/19 11:59 PM EDT Hospital Encounter [facility] [address] [place] [address] Dysuria; Controlled type 2 diabetes mellitus without complication, without long-term current use of insulin (HCC) Discharge Disposition: Home or Self Care 10/11/19 Telephone [facility] [place] [address] Omi Daly DO Prior Authorization 10/11/19 18 8:00 AM EDT Office Visit [facility] [address] [place] [address] Vernon Salinas MD Controlled type 2 diabetes mellitus without complication, without long-term current use of insulin (HCC) (Primary Dx); Dysuria; Anhidrosis 10/10/19 18 Telephone [facility] [place] [address] Elba Tapia RN Other 10/09/19 18 Telephone [facility] [address] [facility] [place] [address] Omi Daly DO Prior Authorization 10/09/19 18 Telephone [facility] [address] [facility] [place] [address] Omi Daly DO Prior Authorization 10/07/19 18 Orders Only [facility] [address] [place] [address] Vernon Salinas MD Type 2 diabetes mellitus without complication, unspecified whether custodial insulin use (HCC) (Primary Dx) 10/07/19 18 Telephone [facility] [address] [facility] [address] Omi Daly, Prior Authorization 10/06/19 18 Telephone [facility] [address] [facility] [address] Omi Daly, Prior Authorization 10/05/19 18 Telephone [facility] [address] [facility] [address] Omi Daly, Prior Authorization 10/05/19 18 Telephone [facility] [address] [facility] [address] Omi Daly, Medication Change 10/05/19 18 10:20 AM EDT - 10/05/19 18 11:59 PM EDT Hospital Encounter [facility] [address] [place] [address] Type 2 diabetes mellitus without complication, without long-term current use of insulin (HCC) Discharge Disposition: Home or Self Care 10/04/19 18 1:00 PM EDT Office Visit [facility] [address] [facility] [address] Vernon Salinas MD Screening for colon cancer (Primary Dx); Type 2 diabetes mellitus without complication, without long-term current use of insulin (HCC) 10/04/19 18 9:53 AM EDT - 10/04/19 18 11:59 PM EDT Hospital Encounter [address] [address] Acute pyelonephritis Discharge Disposition: Home or Self Care 10/03/19 18 9:59 AM EDT - 10/03/19 18 11:59 PM EDT Hospital Encounter [address] [address] Acute pyelonephritis Discharge Disposition: Home or Self Care 10/02/19 18 9:54 AM EDT - 10/02/19 18 11:59 PM EDT Hospital Encounter [facility] [address] [place] [id number] Acute pyelonephritis Discharge Disposition: Home or Self Care 10/01/19 18 9:45 AM EDT - 10/01/19 18 11:59 PM EDT Hospital Encounter [facility] [address] [place] [address] Acute pyelonephritis Discharge Disposition: Home or Self Care 09/30/19 18 9:46 AM EDT - 09/30/19 18 11:59 PM EDT Hospital Encounter [facility] [address] [place] [address] Acute pyelonephritis Discharge Disposition: Home or Self Care 09/29/19 18 10:54 AM EDT - 09/29/19 18 11:59 PM EDT Hospital Encounter [address] [address] Acute pyelonephritis Discharge Disposition: Home or Self Care 09/28/19 18 9:49 AM EDT - 09/28/19 18 11:59 PM EDT Hospital Encounter [address] [address] Acute pyelonephritis Discharge Disposition: Home or Self Care 09/27/19 18 10:40 AM EDT - 09/27/19 11:59 PM EDT Hospital Encounter [address] [address] Acute pyelonephritis Discharge Disposition: Home or Self Care 09/26/19 Patient Outreach [facility] [address] [place] [address] Elba Tapia, JAMISON Hospital Follow Up 09/26/[address] [facility] [address] [place] [address] Laurel Hodgson RN Care Management - Chart Review (hospital discharge reviewed) 09/26/19 18 9:59 AM EDT - 09/26/19 18 11:59 PM EDT Hospital Encounter [address] [address] Acute pyelonephritis Discharge Disposition: Home or Self Care 09/21/19 18 7:56 AM EDT - 09/25/19 18 6:15 PM EDT Hospital Encounter [facility] [address] [facility] [place] [id number] Marlon Yarbrough MD Discharge Disposition: Home or Self Care 09/21/19 18 3:55 AM EDT - 09/21/19 18 7:24 AM EDT Emergency [facility] [address] [facility] [place] [address] Jasper Dixon MD Krusling, Edward J, MD Pyelonephritis (Primary Dx) Discharge Disposition: Short Term Hospital 09/06/19 18 Refill [facility] [address] [place] [address] Omi Daly, Medication Refill 08/04/19 18 Telephone [facility] [address] [facility] [place] [address] Omi Daly DO Abscess 07/25/19 18 Telephone [facility] [address] [facility] [place] [address] Omi Daly DO Medication Refill 07/24/19 18 Refill [facility] [address] [place] [address] Omi Daly DO Medication Refill 07/21/19 18 9:15 AM EDT Office Visit [facility] [address] [facility] [address] Omi Daly DO BPH with urinary obstruction (Primary Dx) 07/12/19 18 Telephone [facility] [address] [facility] [address] Omi Daly DO Medication Management 07/11/19 18 Refill [facility] [address] [facility] [address] Omi Daly, Medication Refill 07/09/19 18 Refill [facility] [address] [facility] [place] [address] Malika, Omi, DO Medication Refill 06/12/19 18 Telephone [facility] [address] [place] [address] Omi Daly, DO Urinary Tract Infection 06/07/19 18 Refill [facility] [place] [address] Omi Daly, DO Medication Refill 05/22/19 18 Refill [facility] [address] [place] [address] Omi Daly, DO Medication Refill 05/01/19 18 Telephone [facility] [address] [facility] [address] [place] [address] Angelina Zaldivar MD [facility] ([facility] 04/22/19 18 Refill [facility] [address] [facility] [address] Omi Daly, DO Medication Refill 04/19/19 18 Refill [facility] [address] [facility] [address] Omi Daly, DO Medication Refill 04/03/19 18 Telephone [facility] [address] [facility] [address] Omi Daly, DO Vaginitis 03/26/19 18 Telephone [facility] [address] [address] Jeffy Fuentes MD Visit Follow Up 03/23/19 18 Refill [facility] [address] [facility] [place] [address] Omi Daly, DO Medication Refill 03/07/20 17 Refill [facility] [address] [place] [address] Patsy Padron MD Medication Refill 02/08/20 17 Refill [facility] [address] [facility] [address] Omi Daly, DO Medication Refill 01/17/20 17 Refill [facility] [address] [place] [address] Omi Daly, DO Medication Refill 01/04/20 17 Refill [facility] [address] [place] [address] Patsy Padron MD Medication Refill 01/04/20 17 Refill [facility] [address] [place] [address] Omi Daly, DO Medication Refill 12/26/19 17 Telephone [facility] [address] [facility] [address] [place] [address] Angelina Zaldivar MD Samples (Bydureon) 12/21/19 17 Refill [facility] [address] [place] [address] Jeffy Fuentes MD Medication Refill (Isosorbide refill / [facility]) 12/21/19 17 Refill [facility] [address] [facility] [address] Omi Daly, DO Medication Refill 12/21/19 17 Telephone [facility] [address] [facility] [address] [place] [address] Angelina Zaldivar MD Medication Management 12/03/19 17 8:45 AM EDT Office Visit [facility] [address] [facility] [place] [address] Vernon Salinas MD Abscess (Primary Dx) 11/27/19 17 Refill [facility] [address] [facility] [address] Omi Daly, DO Medication Refill 11/08/19 17 9:30 AM EDT Office Visit [facility] [address] [facility] [address] [place] [address] Angelina Zaldivar MD Type 2 diabetes mellitus without complication, without long-term current use of insulin (HCC) (Primary Dx); Hyperlipidemia associated with type 2 diabetes mellitus (HCC); Hypertension associated with diabetes (HCC); Vitamin D deficiency; Vitamin B12 deficiency; Candidiasis 11/03/19 17 9:15 AM EDT - 11/03/19 17 11:59 PM EDT Hospital Encounter [facility] [address] [facility] [place] [address] Type 2 diabetes mellitus wit h complication, without long-term current use of insulin (HCC) Discharge Disposition: Home or Self Care 11/02/19 17 Telephone [facility] [address] [place] [address] Angelina Zaldivar MD Labs Only 10/31/19 17 Telephone [facility] [address] [place] [phone] Angelina Zaldivar MD Referral ([facility]) 10/31/19 17 Refill [facility] [address] [place] [address] Omi Daly, DO Medication Refill 10/28/19 17 Telephone [facility] [address] [place] [address] Angelina Zaldivar MD Samples 10/25/19 17 Refill [facility] [address] [place] [address] Omi Daly, DO Medication Refill 10/11/19 17 Refill [facility] [address] [place] [address] Omi Daly, DO Medication Refill 10/10/19 17 Telephone [facility] [address] [place] [address] Angelina Zaldivar MD Samples 09/28/19 17 Refill [facility] [address] [facility] [place] [address] Omi Daly, DO Medication Refill 09/26/19 17 Refill [facility] [address] [facility] [address] Patsy Padron MD Medication Refill 09/22/19 17 Refill [facility] [address] [facility] [address] Omi Daly, DO Medication Refill 09/22/19 17 9:15 AM EDT Office Visit [facility] [address] [address] Jeffy Fuentes MD Essential hypertension (Primary Dx); Ischemic heart disease; S/P CABG x 3; Hyperlipidemia, unspecified hyperlipidemia type 09/20/19 17 11:45 AM EDT Clinical Support [facility] [address] [facility] [address] Michelle Baig RMA Screening for colon cancer (Primary Dx) 09/08/19 17 Telephone [facility] [address] [place] [address] Angelina Zaldivar MD Paperwork/forms (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) 08/25/19 17 Refill [facility] [address] [facility] [address] Omi Daly, DO Medication Refill 08/10/19 17 Telephone [facility] [place] [address] [place] [address] Jeffy Fuentes MD Visit Follow Up 08/10/19 17 Refill [facility] [address] [place] [address] Angelina Zaldivar MD Medication Refill 08/04/19 17 10:15 AM EDT Office Visit [facility] [address] [address] Jeffy Fuentes MD Essential hypertension (Primary Dx); Ischemic heart disease; Chest pain, unspecified type 08/03/19 17 Refill [facility] [address] [facility] [address] [place] [address] Angelina Zaldivar MD Medication Refill 08/03/19 17 3:00 PM EDT Office Visit [facility] [address] [facility] [address] [place] [address] Angelina Zaldivar MD Vitamin D deficiency (Primary Dx); Vitamin B12 deficiency; Hyperlipidemia associated with type 2 diabetes mellitus (HCC); Hypertension associated with diabetes (HCC); Type 2 diabetes mellitus with complication, without long-term current use of insulin (HCC) 08/02/19 17 2:38 PM EDT - 08/02/19 17 11:59 PM EDT Hospital Encounter [facility] [address] [place] [address] Jeffy Fuentes MD Chest discomfort; Essential hypertension; Ischemic heart disease; S/P CABG x 3 Discharge Disposition: Home or Self Care 08/02/19 17 2:00 PM EDT - 08/02/19 17 2:37 PM EDT Hospital Encounter [facility] [address] [place] [address] Jeffy Fuentes MD Chest discomfort; Essential hypertension; Ischemic heart disease; S/P CABG x 3 Discharge Disposition: Home or Self Care 07/28/19 17 3:30 PM EDT - 07/28/19 17 11:59 PM EDT Hospital Encounter [facility] [address] [place] [address] Jeffy Fuentes MD Type 2 diabetes mellitus without complication, without long-term current use of insulin (HCC); Hyperlipidemia associated with type 2 diabetes mellitus (HCC) Discharge Disposition: Home or Self Care 07/28/19 17 2:25 PM EDT - 07/28/19 17 3:29 PM EDT Hospital Encounter [facility] [address] [place] [address] Jeffy Fuentes MD Chest discomfort; Essential hypertension; Ischemic heart disease; S/P CABG x 3 Discharge Disposition: Home or Self Care 07/23/19 17 Refill [facility] 100 [facility] [place] [address] Omi Daly, DO Medication Refill 07/21/19 17 2:00 PM EDT Office Visit [facility] [address] [address] Jeffy Fuentes MD Encounter to establish care with new doctor (Primary Dx); Chest discomfort; Essential hypertension; Ischemic heart disease; S/P CABG x 3 07/08/19 17 Telephone [facility] [address] [facility] [address] [place] [address] Angelina Zaldivar MD Samples (Bydureon) 07/07/19 17 Refill [facility] 100 [facility] [place] [address] Omi Daly, DO Medication Refill 07/04/19 17 Telephone [facility] [address] [place] [address] Angelina Zaldivar MD Reschedule 06/29/19 17 Refill [facility] [address] [place] [address] Omi Daly, DO Medication Refill 06/23/19 17 Refill [facility] [address] [facility] [place] [address] Omi Daly, DO Medication Refill 06/21/19 17 Telephone [facility] [address] [place] [address] Angelina Zaldivar MD Samples 06/21/19 17 Refill [facility] [address] [place] [address] Patsy Padron MD Medication Refill 06/19/19 17 Refill [facility] [address] [place] [address] MalikaOmi gasca, DO Medication Refill 06/18/19 17 9:00 AM EDT Office Visit [facility] [address] [place] [address] Vernon Salinas MD Dermatitis (Primary Dx) 05/26/19 17 Refill [facility] [address] [place] [address] MalikaOmi gasca, DO Medication Refill 05/25/19 17 Refill [facility] [address] [place] [address] MalikaOmi gasca, DO Medication Refill 05/24/19 17 Refill [facility] [address] [place] [address] MalikaOmi gasca, DO Medication Refill 05/19/19 17 Telephone [facility] [address] [place] [address] Omi Daly, DO Sore Throat 04/10/19 17 Telephone [facility] [address] [place] [address] Emiliana Lu, RMA Back Pain 04/04/19 17 Refill [facility] [address] [place] [address] Omi Daly, DO Medication Refill 04/04/19 17 8:30 AM EST Office Visit [facility] [address] [place] [address] Omi Daly, DO Back pain with left-sided radiculopathy (Primary Dx); Controlled type 2 diabetes mellitus without complication, without long-term current use of insulin ([facility]) 04/04/19 17 11:15 AM EST Office Visit [facility] 1500 [facility] [address] [place] [address] Angelina Zaldivar MD Type 2 diabetes mellitus without complication, without long-term current use of insulin (HCC) (Primary Dx); Hypertension associated with diabetes (HCC); Hyperlipidemia associated with type 2 diabetes mellitus (HCC); Vitamin D deficiency; Vitamin B12 deficiency 03/30/19 17 4:00 PM EST - 03/30/19 17 11:59 PM EST Hospital Encounter [facility] 238 [facility] [place] [address] Type 2 diabetes mellitus wit h complication (HCC) Discharge Disposition: Home or Self Care 03/24/19 17 Refill [facility] 100 [place] [place] [address] Omi Daly, DO Medication Refill 03/24/19 17 Refill [facility] 100 [place] [place] [address] Patsy Padron MD Medication Refill 03/23/19 17 Telephone [facility] [address] [address] Angelina Zaldivar MD Samples 03/22/19 17 Refill [facility] [address] [place] [address] Omi Daly, DO Medication Refill 03/20/19 17 Telephone [facility] [address] [address] [place] [address] Angelina Zaldivar MD Labs Only (Reminder ) 03/09/20 16 Refill [facility] [address] [facility] [address] Omi Daly, Medication Refill 03/01/20 16 Telephone [facility] [address] [place] [address] Angelina Zaldivar MD Samples 02/12/20 16 Refill [facility] [address] [facility] [place] [address] Omi Daly, DO Medication Refill 02/12/20 16 Refill [facility] [address] [facility] [address] Omi Daly, DO Medication Refill 01/28/20 16 Telephone [facility] 1500 [facility] [address] [place] [address] Angelina Zaldivar MD No Show; Reschedule 01/25/20 16 Telephone [facility] 1500 [facility] [address] [place] [address] Angelina Zaldivar MD Samples 01/25/20 16 Telephone [facility] [address] [facility] [address] [place] [address] Angelina Zaldivar MD Labs Only (Lab Reminder ) 01/10/20 16 Refill [facility] 100 [facility] [place] [address] Omi Daly, DO Medication Refill 01/04/20 16 Refill [facility] 100 [place] [address] Omi Daly, DO Medication Refill 12/27/19 16 Telephone [facility] 1500 [facility] [address] [place] [phone] Angelina Zaldivar MD Samples (Bydureon.); Dysuria 12/08/19 16 Refill [facility] 100 [facility] [place] [address] Omi Daly, DO Medication Refill 12/05/19 16 Refill [facility] [address] [facility] [place] [address] Omi Daly, DO Medication Refill 12/04/19 16 Refill [facility] [address] [facility] [place] [address] Omi Daly, DO Medication Refill 11/30/19 16 Refill [facility] [address] [facility] [address] [place] [address] Angelina Zaldivar MD Medication Refill 11/30/19 16 Refill [facility] [address] [facility] [address] [place] [address] Angelina Zaldivar MD Medication Refill 11/29/19 16 Telephone [facility] [address] [facility] [address] [place] [address] Angelina Zaldivar MD Samples 11/26/19 16 Telephone [facility] [address] [place] [address] Omi Daly DO Appointment Needed 11/18/19 16 Telephone [facility] [address] [address] Angelina Zaldivar MD Samples 10/12/19 16 7:55 AM EDT Office Visit [place] [address] [address] Angelina Zaldivar MD Type 2 diabetes mellitus with complication (HCC) (Primary Dx); Vitamin B12 deficiency; Hypertension associated with diabetes (HCC); Hyperlipidemia associated with type 2 diabetes mellitus (HCC) 10/11/19 16 4:50 PM EDT - 10/11/19 16 11:59 PM EDT Hospital Encounter [facility] 238 [facility] [place] [address] Type 2 diabetes mellitus without complication (HCC) Discharge Disposition: Home or Self Care 10/08/19 16 Refill [facility] [address] [place] [address] Patsy Padron MD Medication Refill 10/06/19 [address] [facility] [address] [place] [address] Angelina Zaldivar MD Labs Only 09/23/19 16 10:15 AM EDT Office Visit [facility] 100 [place] [address] Omi Daly DO Dysuria (Primary Dx); Chronic fatigue; Insomnia, persistent 09/22/19 16 Telephone [facility] 100 [facility] [address] Omi Daly, Other 09/18/19 16 11:40 AM EDT - 09/18/19 16 11:59 PM EDT Hospital Encounter [facility] 238 [facility] [place] [address] Other fatigue Discharge Disposition: Home or Self Care 09/18/19 16 11:15 AM EDT Office Visit [facility] 100 [facility] [address] Daniela Garcia, FILEMAKER DEVELOPER Other fatigue (Primary Dx) 09/15/19 16 Telephone [facility] [address] [place], [place] [address] Angelina Zaldivar MD Samples 09/13/19 16 Refill [facility] [address] [place] [address] Angelina Zaldivar MD Medication Refill 08/24/19 16 Refill [facility] 100 [facility] [place] [address] Omi Daly DO Medication Refill 08/06/19 16 Refill [facility] [address] [place] [address] Patsy Padron MD Medication Refill 08/03/19 16 Refill [facility] [address] [place] [address] Angelina Zaldivar MD Medication Refill 08/02/19 16 Telephone [facility] [address] [address] Angelina Zaldivar MD Samples 07/26/19 16 Refill [facility] [address] [place] [address] Omi Daly, DO Medication Refill 07/09/19 16 Telephone [facility] [address] [address] Angelina Zaldivar MD Other (Cost of Bydureon) 07/09/19 16 Orders Only [address] [address] Sasha Ramos RN,CDE Type 2 diabetes mellitus with complication (HCC) (Primary Dx) 07/09/19 16 7:55 AM EDT Office Visit [address] [address] Angelina Zaldivar MD Type 2 diabetes mellitus without complication (HCC) (Primary Dx); Hypertension associated with diabetes (HCC); Hyperlipidemia associated with type 2 diabetes mellitus (HCC); Vitamin D deficiency 07/06/19 16 1:05 PM EDT - 07/06/19 16 11:59 PM EDT Hospital Encounter [facility] [address] [place] [address] Controlled type 2 diabetes mellitus without complication (HCC) Discharge Disposition: Home or Self Care 07/02/19 16 Telephone [facility] [address] [address] Angelina Zaldivar MD Labs Only (Lab Reminder) 06/26/19 16 Refill [facility] [address] [place] [address] Omi Daly, Medication Refill 06/16/19 16 Telephone [facility] [address] [place] [address] Omi Daly DO Medication Management 06/14/19 16 Telephone [facility] [address] [place] [address] Omi Daly DO Other 06/11/19 16 2:17 PM EDT - 06/11/19 16 11:59 PM EDT Hospital Encounter [facility] ANTHONY PROCESSING [place] [address] Screening PSA (prostate specific antigen) Discharge Disposition: Home or Self Care 06/11/19 16 9:15 AM EDT Office Visit [facility] [address] [place], [place] [address] Omi Daly DO Dysuria (Primary Dx); BPH with urinary obstruction; Screening PSA (prostate specific antigen) 05/24/19 16 Refill [facility] [address] [place] [address] Starla Nice MA Medication Refill 05/04/19 16 Refill [facility] [address] [place] [address] Patsy Padron MD Medication Refill 05/03/19 16 Telephone [facility] [address] [place] [address] Starla Nice MA Other 05/01/19 16 9:15 AM EST Office Visit [facility] [address] [place] [address] Omi Daly DO Dysuria (Primary Dx); Acute bacterial sinusitis; BPH with urinary obstruction; Encounter for screening colonoscopy 04/29/19 16 Refill [facility] [address] [place] [address] Omi Daly DO Medication Refill 04/20/19 16 Refill [facility] [address] [place] [address] Omi Daly DO Medication Refill 04/15/19 16 Refill [facility] [address] [place] [address] Malika, Omi, DO Medication Refill 04/14/19 16 Telephone [facility] [address] [facility] [address] [place] [address] Angelina Zaldivar MD Visit Follow Up 04/07/19 16 7:55 AM EST Office Visit [facility] [address] [facility] [address] [place] [address] Angelina Zaldivar MD Controlled type 2 diabetes mellitus without complication (HCC) (Primary Dx); Hypertension associated with diabetes (HCC); Hyperlipidemia associated with type 2 diabetes mellitus (HCC); Vitamin B12 deficiency; Vitamin D deficiency 04/06/19 16 2:15 PM EST - 04/06/19 16 11:59 PM EST Hospital Encounter [facility] 238 [facility] [place], [place] [id number] Postoperative anemia due to acute blood loss (Primary Dx); Controlled type 2 diabetes mellitus without complication (HCC); Vitamin B12 deficiency; Vitamin D deficiency; S/P CABG x 3; Ischemic heart disease; Hyperlipidemia Discharge Disposition: Home or Self Care 03/29/19 16 Telephone [facility] [address] [facility] [address] [place] [address] Angelina Zaldivar MD Reschedule 03/26/19 16 Telephone [facility] [address] [facility] [address] [place] [address] Angelina Zaldivar MD Labs Only 03/18/19 16 Refill [facility] [address] [place] [address] Omi Daly, DO Medication Refill 03/08/20 15 Refill [facility] [address] [place] [address] Omi Daly, DO Medication Refill 02/23/20 15 Telephone [facility] [address] [facility] [address] [place] [address] Angelina Zaldivar MD Medication Reaction (canagliflozin (INVOKANA) 300 mg Oral Tablet) 02/23/20 15 Refill [facility] [address] [place] [address] Edgar Dodson MD Medication Refill 02/20/20 15 Refill [facility] [address] [place] [address] Edgar Dodson MD Medication Refill 02/14/20 15 Refill [facility] [address] [place] [address] MalikaOmi gasca, DO Medication Refill 02/13/20 15 Patient Outreach [facility] [address] [place] [address] Elba Tapia RN Care Management - Chart Review 02/08/20 15 Refill [facility] [address] [facility] [address] Omi Daly, DO Medication Refill 01/09/20 15 Refill [facility] [address] [place] [address] Edgar Dodson MD Medication Refill 01/08/20 15 Refill [facility] [address] [facility] [address] Omi Daly, DO Medication Refill 01/06/20 15 Refill [facility] [address] [place] [address] Omi Daly, DO Medication Refill 12/26/19 15 7:40 AM EDT Office Visit [facility] [address] [facility] [address] [place] [address] Angelina Zaldivar MD Controlled type 2 diabetes mellitus without complication (HCC) (Primary Dx); Vitamin D deficiency; Vitamin B12 deficiency; Hypertension associated with diabetes (HCC); Hyperlipidemia associated with type 2 diabetes mellitus (HCC) 12/25/19 15 9:25 AM EDT - 12/25/19 15 11:59 PM EDT Hospital Encounter [facility] [address] [place] [address] Controlled type 2 diabetes mellitus without complication (HCC); Hyperlipidemia; Vitamin B12 deficiency; Vitamin D deficiency; Postoperative anemia due to acute blood loss; S/P CABG x 3; Ischemic heart disease; Essential hypertension Discharge Disposition: Home or Self Care 12/24/19 15 6:15 PM EDT Hospital Encounter [facility] [address] [place] [address] Left without seen 12/23/19 15 Telephone [facility] [address] [facility] [address] [place] [address] Angelina Zaldivar MD Labs Only 12/10/19 15 Telephone [facility] 100 [place] [address] Edgar Dodson MD Visit Follow Up 12/10/19 15 Patient Outreach [facility] [address] [place] [address] Elba Tapia RN Care Transition (Follow up call.) 12/07/19 15 Refill [facility] [address] [facility] [address] Edgar Dodson MD Medication Refill 12/04/19 15 3:15 PM EDT Office Visit [facility] [address] [facility] [address] Edgar Dodson MD Controlled type 2 diabetes mellitus without complication (HCC) (Primary Dx); Essential hypertension; Gastroesophageal reflux disease without esophagitis 12/03/19 15 Refill [facility] [address] [facility] [address] Omi Daly DO Medication Refill 11/14/19 15 Telephone [facility] [address] [place] [address] Edgar Dodson MD Other 09/24/19 15 Telephone [facility] [address] [facility] [address] [place] [address] Angelina Zaldivar MD Results 09/24/19 8:00 AM EDT - 09/24/19 11:59 PM EDT Hospital Encounter [facility] [address] [place] [address] Controlled type 2 diabetes mellitus without complication (HCC); Hypokalemia Discharge Disposition: Home or Self Care 09/24/19 7:40 AM EDT Office Visit [facility] [address] [address] Angelina Zaldivar MD Controlled type 2 diabetes mellitus without complication (HCC) (Primary Dx); Essential hypertension; Hyperlipidemia; Vitamin D deficiency; Vitamin B12 deficiency 09/23/19 11:35 AM EDT - 09/23/19 11:59 PM EDT Hospital Encounter [facility] [address] [place], [place] [id number] Uncontrolled type 2 diabetes mellitus with microalbuminuria or microproteinuria (HCC); Vitamin B12 deficiency; Vitamin D deficiency; Postoperative anemia due to acute blood loss; S/P CABG x 3; CAD (coronary artery disease); Chest pain; Ischemic heart disease; Hyperlipidemia; GERD (gastroesophageal reflux disease); DM (diabetes mellitus), type 2, uncontrolled (HCC); HTN (hypertension) Discharge Disposition: Home or Self Care 09/21/19 15 Refill [facility] [address] [place] [address] Omi Daly, Medication Refill 09/19/19 15 Telephone [facility] [address] [address] Angelina Zaldivar MD Reschedule (LABS) 09/11/19 15 Telephone [facility] [address] [address] Angelina Zaldivar MD 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) 09/06/19 15 Refill [facility] [address] [place] [address] Edgar Dodson MD Medication Refill 09/04/19 15 Patient Outreach [facility] [address] [place] [address] Elba Tapia paramedic instructor (Follow up call.) 08/28/19 15 Refill [facility] [address] [place] [address] Omi Daly, DO Medication Refill 08/22/19 15 Refill [facility] [address] [place] [address] Omi Daly, DO Medication Refill 08/21/19 15 Telephone [facility] [address] [facility] [address] [place] [address] Angleina Zaldivar MD Other ([employer] Patient Assistance Program) 08/21/19 15 9:40 AM EDT Office Visit [facility] [address] [facility] [address] [place] [phone] Angelina Zaldivar MD Hyperlipidemia (Primary Dx); Uncontrolled type 2 diabetes mellitus with microalbuminuria or microproteinuria (HCC); Essential hypertension; Vitamin D deficiency; Vitamin B12 deficiency; Tinea pedis of right foot 08/18/19 15 Refill [facility] [address] [place] [address] Edgar Dodson MD Medication Refill 08/18/19 15 Refill [facility] [address] [place] [address] Omi Daly, DO Medication Refill 08/07/19 15 Refill [facility] [address] [place] [address] Edgar Dodson MD Medication Refill 08/05/19 15 Telephone [facility] [address] [place] [address] Edgar Dodson MD Referral 08/01/19 15 Telephone [facility] [address] [place] [address] Edgar Dodson MD Other 07/27/19 15 Refill [facility] [address] [place] [address] Omi Daly, DO Medication Refill 07/26/19 15 Telephone [facility] [address] [place] [address] Starla Nice MA [facility] 07/19/19 15 Refill [facility] [address] [place] [address] Omi Daly, DO Medication Refill 07/06/19 15 Refill [facility] [address] [place] [address] Omi Daly, DO Medication Refill 07/05/19 15 Refill [facility] [address] [place] [address] Edgar Dodson MD Medication Refill 06/23/19 15 Refill [facility] [address] [place] [address] Omi Daly, Medication Refill 06/17/19 15 Refill [facility] [address] [place] [address] Edgar Dodson MD Medication Refill 06/16/19 15 Refill [facility] 100 [place] [address] Edgar Dodson MD Medication Refill 06/12/19 15 Patient Outreach [facility] [address] [place] [address] Elba Tapia RN Care Transition (Follow up call.) 06/12/19 15 Refill [facility] [address] [place] [address] Omi Daly, DO Medication Refill 06/10/19 15 Telephone [facility] [address] [place] [address] Edgar Dodson MD Medication Management 06/06/19 15 Refill [facility] [address] [place] [address] Edgar Dodson MD Medication Refill 06/01/19 15 Refill [facility] [address] [place] [address] Omi Daly, DO Medication Refill 05/30/19 15 Telephone [facility] [address] [place] [address] Edgar Dodson MD Medication Refill 05/21/19 15 Refill [facility] [address] [place] [address] Omi Daly, DO Medication Refill 05/09/19 15 Refill [facility] [address] [place] [address] Omi Daly, DO Medication Refill 05/04/19 15 Refill [facility] [address] [place] [address] Edgar Dodson MD Medication Refill 04/21/19 15 Orders Only [facility] [address] [place] [address] Carlee Rose CMA Vitamin D deficiency (Primary Dx) 04/18/19 15 2:15 PM EST - 04/18/19 15 11:59 PM EST Hospital Encounter [facility] ANTHONY PROCESSING [place] [address] HTN (hypertension); Hyperlipidemia; Routine general medical examination at a health care facility; Vitamin D deficiency Discharge Disposition: Home or Self Care 04/18/19 15 8:15 AM EST Office Visit [facility] [address] [place] [address] Edgar Dodson MD Routine general medical examination at a health care facility (Primary Dx); DM (diabetes mellitus), type 2, uncontrolled (HCC); HTN (hypertension); Hyperlipidemia; CAD (coronary artery disease); Vitamin D deficiency; Sinusitis 04/07/19 15 Telephone [facility] [address] [place] [place] [address] Madeline Turk, JORGE Head Lice 04/06/19 15 Telephone [facility] [address] [place] [place] [address] Starla Nice MA Head Lice 04/06/19 15 Refill [facility] [address] [facility] [place] [address] Edgar Dodson MD Medication Refill 04/06/19 15 Refill [facility] [address] [facility] [address] Omi Daly, DO Medication Refill 03/28/19 15 Refill [facility] [address] [facility] [place] [address] Edgar Dodson MD Medication Refill 03/25/19 15 Telephone [facility] [address] [facility] [place] [address] Edgar Dodson MD Medication Management 03/23/19 15 Telephone [facility] [address] [place] [address] Edgar Dodson MD Other 03/18/19 15 Telephone [facility] [address] [facility] [place] [address] Edgar Dodson MD Medication Management 03/14/19 15 Telephone [facility] [address] [facility] [place] [address] Edgar Dodson MD Medication Management 03/13/19 15 Telephone [facility] [address] [facility] [place] [address] Omi Daly, DO Medication Refill 03/11/20 14 Telephone [facility] [address] [place] [address] Omi Daly, DO Medication Refill 02/28/20 14 Refill [facility] [address] [place] [address] Edgar Dodson MD Medication Refill 02/18/20 14 Telephone [facility] Cristy Walker [address] [place] [address] Starla Nice MA Head Lice 02/03/20 14 Telephone [facility] [address] [place] [address] Omi Daly, Other 02/01/20 14 3:00 PM EST - 02/01/20 14 11:59 PM EST Hospital Encounter [facility] [place] [address] Hyperlipidemia Discharge Disposition: Home or Self Care 02/01/20 14 8:45 AM EST Office Visit [facility] [place] [address] Omi Daly DO DM (diabetes mellitus), type 2, uncontrolled (HCC) (Primary Dx); HTN (hypertension); Hyperlipidemia 01/27/20 14 Refill [facility] [place] [place] [address] Edgar Dodson MD Medication Refill 01/20/20 14 Patient Outreach [facility] [place] [address] Elba Tapia RN Care Transition (Follow up call.) 01/06/20 14 Refill [facility] [address] [place] [address] Edgar Dodson MD Medication Refill 12/21/19 14 Refill [facility] [address] [place] [facility] [address] Edgar Dodson MD Medication Refill 12/13/19 14 Refill [facility] [address] [place] [address] Edgar Dodson MD Medication Refill 11/22/19 14 Patient Outreach [place] [address] [place] [address] Elba Tapia RN Care Transition (Follow up call.) 10/29/19 14 8:40 PM EDT - 10/29/19 14 11:59 PM EDT Hospital Encounter [facility] ANTHONY PROCESS[facility] [place] [address] DM (diabetes mellitus), type 2, uncontrolled (HCC) Discharge Disposition: Home or Self Care 10/29/19 14 1:15 PM EDT Clinical Support [facility] [address] [place] [address] Michelle Baig RMA DM (diabetes mellitus), type 2, uncontrolled (HCC) (Primary Dx) 10/25/19 14 Refill [facility] [address] [place] [address] Edgar Dodson MD Medication Refill 10/16/19 14 Patient Outreach [facility] [address] [place] [address] Elba Tapia RN Care Transition (Follow up call.) 10/16/19 14 Telephone [facility] [address] [place] [address] Edgar Dodson MD Medication Refill 10/15/19 14 Telephone [facility] [address] [place] [address] Edgar Dodson MD Medication Refill 10/07/19 14 1:30 PM EDT Office Visit [facility] [address] [place] [address] Omi Daly DO DM (diabetes mellitus), type 2, uncontrolled (HCC) (Primary Dx); GERD (gastroesophageal reflux disease) 09/26/19 14 Telephone [facility] [address] [place] [address] Starla Nice MA Other 09/26/19 14 12:20 PM EDT Office Visit [facility] [address] [place] [address] [address] [place] [address] Samuel Jo MD S/P CABG x 3 (Primary Dx) 09/23/19 14 Patient Outreach [facility] [address] [place] [address] Whitney Pack RN Care Transition (Hospital follow up call week 4) 09/20/19 14 Patient Outreach [facility] [address] [place] [address] Whitney Pack RN Care Transition (hospital follow up call week 3) 09/17/19 14 1:45 PM EDT Office Visit [facility] [address] [address] Jeffy Fuentes MD CAD (coronary artery disease) (Primary Dx); HTN (hypertension); S/P CABG x 3; Ischemic heart disease 09/13/19 14 Orders Only [facility] 100 [place] [address] Patsy Padron MD DM (diabetes mellitus), type 2, uncontrolled (HCC) (Primary Dx) 09/11/19 14 Telephone [facility] [address] [place], [place] [id number] Cathi Torres RN Care Transition (Follow up CABG) 09/09/19 14 Telephone [facility] 100 [facility] [place] [address] Kavitha Spence MA Other 09/08/19 14 Refill [facility] 100 [place] [address] Edgar Dodson MD Medication Refill 09/06/19 14 Telephone [facility] [address] [facility] [place] [address] Starla Nice MA Other 09/05/19 14 11:15 AM EDT Office Visit [facility] 100 [place] [address] Omi Daly DO Cellulitis (Primary Dx); DM (diabetes mellitus), type 2, uncontrolled (HCC) 09/04/19 14 Telephone [facility] [address] [place] [address] Edgar Dodson MD Other 09/04/19 14 Telephone [facility] 100 [place] [address] Carlee Rose CMA Blood Sugar Problem 09/03/19 14 Telephone [facility] [address] [place] [address] Cathi Torres RN Care Transition (Hospital f/u CABG) 09/02/19 14 3:00 PM EDT Office Visit [facility] 100 [place] [address] Omi Daly DO DM (diabetes mellitus), type 2, uncontrolled (HCC) (Primary Dx); S/P CABG x 3; CAD (coronary artery disease); HTN (hypertension) 08/24/19 14 12:34 PM EDT - 08/30/19 14 2:45 PM EDT Hospital Encounter [facility] [address] [place], [place] [id number] oTd Wolf MD Clements, Wilson Monroe, MD CAD [...] Surgery EDG PERIOP [facility] [place] [address] Samuel Jo MD CORONARY ARTERY BYPASS GRAFT 08/24/19 14 Refill [facility] 100 [place] [address] Patsy Padron MD Medication Refill 08/23/19 14 8:50 AM EDT - 08/24/19 14 11:39 AM EDT Hospital Encounter [facility] [address] [place] [address] Jeffy Fuentes MD Discharge Disposition: Short Term Hospital 08/23/19 14 11:00 AM EDT - 08/23/19 14 12:00 PM EDT Surgery Jeffy Fuentes MD CARDIAC PROCEDURE - JANETH/FTT-BENZENE OPERATOR ONLY 08/20/19 14 2:10 PM EDT - 08/20/19 14 11:59 PM EDT Hospital Encounter [facility] [address] [place] [address] HTN (hypertension) (Primary Dx); Chest pain; Ischemic heart disease; DM (diabetes mellitus) (HCC); Hyperlipidemia; GERD (gastroesophageal reflux disease) Discharge Disposition: Home or Self Care 08/20/19 14 1:45 PM EDT Office Visit [facility] [place] [address] [place] [address] Jeffy Fuentes MD HTN (hypertension) (Primary Dx); Chest pain; Ischemic heart disease 08/17/19 14 9:30 AM EDT Office Visit [facility] 100 [facility] [place], [facility] Omi Daly DO Type II or unspecified type diabetes mellitus without mention of complication, uncontrolled (HCC) (Primary Dx); Chest pain, unspecified; Hyperlipidemia 07/24/19 14 Telephone [facility] 100 [facility] [place], [facility] Carlee Rose, MEDICAL ANTHROPOLOGY DIRECTOR Medication Refill 07/24/19 14 Refill [facility] [address] [place] [address] Carlee Rose, MEDICAL ANTHROPOLOGY DIRECTOR Medication Refill 07/21/19 14 Refill [facility] [address] [facility] [address] Omi Daly DO Medication Refill 07/11/19 14 Refill [facility] 100 [facility] [place], [facility] Edgar Dodson MD Medication Refill 07/02/19 14 Refill [facility] [address] [facility] [address] Edgar Dodson MD Medication Refill 06/24/19 14 Telephone [facility] [address] [facility] [address] Carlee Rose, [facility] Medication Refill 04/08/19 14 Refill [facility] [address] [place] [address] Emiliana Lu, RMA Medication Refill 03/01/20 13 Refill [facility] [address] [facility] [address] Edgar Dodson MD Medication Refill 02/08/20 13 Telephone [facility] [address] [place] [address] Edgar Dodson MD Medication Refill 02/08/20 13 Refill [facility] [address] [place] [address] Michelle Baig, RMA Medication Refill 01/11/20 13 Refill [facility] [address] [place] [address] Edgar Dodson MD Medication Refill 01/05/20 13 Telephone [facility] [address] [place] [address] Mitzi Porsha Ana Rosa, CCMA Medication Refill 01/05/20 13 Refill [facility] [address] [place] [address] Edgar Dodson MD Medication Refill 12/22/19 13 Telephone [facility] [address] [place] [address] Edgar Dodson MD Medication Refill 12/12/19 13 Refill [facility] [address] [place] [address] Patsy Padron MD Medication Refill 12/03/19 13 Telephone [facility] [address] [place] [address] Edgar Dodson MD Medication Refill 11/09/19 13 Telephone [facility] [address] [place] [address] Va SelfBROOKYoli Nephrolithiasis 11/01/19 13 Refill [facility] [address] [place] [address] Starla Nice MA Medication Refill 10/18/19 13 Telephone [facility] [address] [place] [address] Edgar Dodson MD Medication Refill 09/22/19 13 Refill [facility] [address] [place] [address] Patsy Padron MD Medication Refill 09/18/19 13 3:31 PM EDT - 09/18/19 13 11:59 PM EDT Hospital Encounter [facility] ANTHONY PROCESSING [place] [address] HTN (hypertension); Hyperlipidemia; DM (diabetes mellitus) (HCC) Discharge Disposition: Home or Self Care 09/18/19 13 8:45 AM EDT Office Visit [facility] [address] [place] [address] Edgar Dodson MD Routine general medical examination at a health care facility (Primary Dx); DM (diabetes mellitus) (HCC); HTN (hypertension); Hyperlipidemia; GERD (gastroesophageal reflux disease) 08/28/19 13 Refill [facility] [address] [place] [address] Edgar Dodson MD Medication Refill 07/14/19 13 Telephone [facility] [address] [place] [address] Edgar Dodson MD Medication Refill 06/14/19 13 Telephone [facility] [address] [place] [address] Patsy Padron MD Medication Refill 06/11/19 13 Orders Only [facility] [address] [place] [address] Edgar Dodson MD [place] (Primary Dx) 06/06/19 13 10:00 AM EDT Office Visit [facility] [address] [place] [address] Edgar Dodson MD DM (diabetes mellitus) (HCC) (Primary Dx); HTN (hypertension); Hyperlipidemia; GERD (gastroesophageal reflux disease); Cellulitis 06/02/19 13 Refill [facility] [address] [place] [address] Starla Nice MA Medication Refill 05/21/19 13 Refill [facility] [address] [place] [address] Edgar Dodson MD Medication Refill 05/09/19 13 Refill [facility] [place] [address] Patsy Padron MD Medication Refill 04/12/19 13 Refill [facility] [address] [place] [address] Edgar Dodson MD Medication Refill 03/25/19 13 Telephone [facility] [place] [address] Starla Nice MA Medication Refill 02/13/20 12 Telephone [facility] [place] [address] Edgar Dodson MD Medication Refill 01/26/20 12 Telephone [facility] [address] [place] [address] Starla Nice MA Other 01/20/20 12 Refill [facility] [address] [place] [address] Edgar Dodson MD Medication Refill 12/29/19 12 Telephone [facility] [place] [address] [place] [address] Cindy Frey Referral (Diabetes Education) 12/29/19 12 Telephone [facility] [address] [facility] [address] Va Self, RMA Nasal Congestion 12/28/19 12 Telephone [facility] [address] [place] [address] Va Self, RMA Obesity 12/27/19 12 Telephone [facility] [place] [address] Porsha Cartagena Ana Rosa, CCMA Other 12/08/19 12 Refill [facility] [address] [facility] [address] Omi Daly, Medication Refill 10/17/19 12 Refill [facility] [address] [facility] [address] Edgar Dodson MD Medication Refill 10/07/19 12 4:03 PM EDT - 10/07/19 12 11:59 PM EDT Hospital Encounter [facility] LAB ANTHONY PROCESSING [place] [address] HTN (hypertension); DM (diabetes mellitus) ([facility]); Hyperlipidemia Discharge Disposition: Home or Self Care 10/07/19 12 10:00 AM EDT Office Visit [facility] [place] [address] Edgar Dodson MD DM (diabetes mellitus) ([facility]); HTN (hypertension); GERD (gastroesophageal reflux disease); Hyperlipidemia 10/06/19 12 Refill [facility] [address] [place] [address] Edgar Dodson MD Medication Refill 09/01/19 12 Refill [facility] [address] [facility] [place] [address] Omi Daly, Medication Refill 09/01/19 12 Refill [facility] [address] [facility] [place] [address] Edgar Dodson MD Medication Refill 08/07/19 12 Refill [facility] [address] [place] [address] Edgar Dodson MD Medication Refill 07/25/19 12 Refill [facility] [address] [place] [address] Edgar Dodson MD Medication Refill 07/04/19 12 Telephone [facility] [place] [address] [place] [address] Cindy Frey Diabetes (dietary consult request) 06/25/19 12 Refill [facility] [address] [place] [address] Omi Daly DO Medication Refill 06/20/19 12 Telephone [facility] [address] [place] [address] Edgar Dodson MD Other 05/15/19 12 Telephone [facility] [address] [place] [address] Henry Carrillo MA Medication Refill (med) 05/15/19 12 Refill [facility] [address] [place] [address] Omi Daly, Medication Refill 05/13/19 12 Refill [facility] [address] [place] [address] Edgar Dodson MD Medication Refill 04/01/19 12 Telephone [facility] [address] [place] [address] Edgar Dodson MD Medication Refill 03/06/20 11 Refill [facility] [address] [place] [address] Omi Daly DO Medication Refill 03/06/20 11 Refill [facility] [address] [place] [address] Edgar Dodson MD Medication Refill 02/17/20 11 10:15 AM EST Office Visit [facility] [address] [place] [address] Edgar Dodson MD Flank pain; Frequent urination; Hematuria 02/04/20 11 2:00 PM EST Office Visit [facility] [address] [place] [address] Omi Daly DO DM (diabetes mellitus) (HCC) (Primary Dx) 12/11/19 11 10:30 AM EDT Office Visit [facility] [address] [place] [address] Patsy Padron MD Urinary frequency; Abdominal pain; Peripheral edema 12/04/19 11 Refill [facility] [address] [place] [address] Omi Daly DO Medication Refill 12/04/19 11 Refill [facility] [address] [place] [address] Edgar Dodson MD Medication Refill 10/30/19 11 Refill [facility] [address] [place] [address] Omi Daly DO Medication Refill 10/02/19 11 10:45 AM EDT Office Visit [facility] [address] [place] [address] Omi Daly DO Physical exam, annual (Primary Dx) 09/30/19 11 10:15 AM EDT Office Visit [facility] [address] [place] [address] Edgar Dodson MD Cellulitis (Primary Dx); DM (diabetes mellitus) (HCC); GERD (gastroesophageal reflux disease); HTN (hypertension) 09/28/19 11 Telephone [facility] [address] [place] [address] Edgar Dodson MD Medication Refill 08/16/19 11 Telephone [facility] [address] [place] [address] Porsha Cartagena, CCMA Results 08/14/19 11 2:45 PM EDT - 08/14/19 11 11:59 PM EDT Hospital Encounter [facility] ANTHON[facility] PROCESSING [facility] [address] [place], [place] [id number] DM (diabetes mellitus) ([facility]) Discharge Disposition: Home or Self Care 08/14/19 11 10:30 AM EDT Office Visit [facility] [address] [place], [place] [address] Edgar Dodson MD Frequent urination (Primary Dx); DM (diabetes mellitus) (HCC) 08/07/19 11 10:00 AM EDT Office Visit [facility] [address] [place] [address] Patsy Padron MD Bronchitis (Primary Dx) 06/28/19 11 Refill [facility] [address] [place] [address] Michelle Baig RMA Medication Refill 05/15/19 11 Refill [facility] [address] [place] [address] Edgar Dodson MD Medication Refill 04/23/19 11 Telephone [facility] [address] [place] [address] Mesha Nath CMA Medication Refill 04/20/19 11 1:15 PM EST Office Visit [facility] [address] [place] [address] Edgar Dodson MD Hyperlipidemia; GERD (gastroesophageal reflux disease); Back pain 04/05/19 11 Telephone [facility] [address] [place] [address] Starla Nice MA Dental Pain 03/31/19 11 Refill [facility] [address] [place] [address] Edgar Dodson MD Medication Refill 03/08/20 10 Telephone [facility] [address] [place] [address] Starla Nice MA Medication Refill 03/06/20 10 Refill [facility] [address] [place] [address] Edgar Dodson MD Medication Refill 03/03/20 10 Refill [facility] [address] [place] [address] Edgar Dodson MD Medication Refill 03/01/20 10 Telephone [facility] [address] [place] [address] Mesha Nath, [facility] Other 02/13/20 10 11:15 AM EST Office Visit [facility] [address] [place] [address] Omi Daly DO DM (diabetes mellitus) (HCC); HTN (hypertension) 02/11/20 10 Telephone [facility] [address] [place] [address] Mesha Nath, [facility] Other 12/17/19 10 Refill [facility] [address] [place] [address] Patricia Ennis RMA Medication Refill 11/17/19 10 Telephone [facility] [address] [place] [address] Starla Nice MA Other 11/17/19 10 Refill [facility] [address] [place] [address] Omi Daly DO Medication Refill 11/17/19 10 Refill [facility] [address] [place] [address] Edgar Dodson MD Medication Refill 11/10/19 10 Telephone [facility] [address] [place] [address] Va Self RMA Medication Management 11/06/19 10 Telephone [facility] [address] [place] [address] Edgar Dodson MD Nasal Congestion 02/08/20 09 12:25 AM EST - 02/08/20 09 11:59 PM EST Emergency [facility]AR[facility]T Jarek Pack MD 11/22/19 09 4:35 PM EDT - 11/22/19 09 11:59 PM EDT Hospital Encounter [facility] EPIC CON UNK EDG Edgar Dodson MD 08/25/19 08 10:10 PM EDT - 08/26/19 08 12:38 PM EDT Hospital Encounter HST 2B2 Lyle Hines MD 02/06/20 07 4:29 PM EST - 02/06/20 07 11:59 PM EST Hospital Encounter [facility] Dr Randy 12/30/19 07 2:56 PM EDT - 12/30/19 07 11:59 PM EDT Hospital Encounter [facility] Edgar oDdson MD 08/12/19 07 5:12 PM EDT - 08/12/19 07 11:59 PM EDT Hospital Encounter [facility] Edgar Dodson MD 12/17/19 06 4:37 PM [...] EDT Hospital Encounter [facility] EPIC CON [facility]K [facility] 06/24/18 96 8:12 PM EDT - [...] 1 TABLET EVERY DAY 90 Tablet 1 022 Active potassium (POTASSIMIN ORAL) Take by mouth. Active Saccharomyces boulardii (FLORASTOR) 250 mg Oral CapsuleIndication s:Irritable bowel syndrome with diarrhea Take 1 Capsule by mouth 2 times daily. 60 Capsule 2 024 Active nitroGLYCERIN (NITROSTAT) 0.4 mg SL Tablet, Sublingual Place 1 Tablet under the tongue every 5 minutes as needed for Chest pain. 100 Tablet 3 024 Active Blood Sugar Diagnostic Misc StripIndications: Uncontrolled type 2 diabetes mellitus with hyperglycemia (HCC) Test 3 times daily Dx E11.69 One touch meter 200 Each 11 024 Active Lancets Misc MiscIndications:U ncontrolled type 2 diabetes mellitus with hyperglycemia (HCC) Test 3 times daily One Touch Meter Dx E11.69 200 Each 11 Active lidocaine (LIDODERM) 5 % Top Adhesive Patch, Medicated Place 1 Patch onto the skin daily. Apply for 12 hours, remove for 12 hours, then apply new patch 30 Patch Active ZINC ORAL Active multivitamin (THERAGRAN) Oral Tablet Take 1 Tablet by mouth daily. Active ascorbic acid (VITAMIN C ORAL) Take by mouth daily. Active cinnamon bark (CINNAMON ORAL) Take by mouth daily. Active ranolazine (RANEXA) 500 mg Oral Tablet Sustained Release 12 hr Take 1 Tablet by mouth every 12 hours. 120 Tablet 5 11/01/19 24 2:31 PM EDT Active Insulin [place], Disposable, (SALENA PEN NEEDLE) 32 gauge x 5/32 Misc NeedleIndications :Uncontrolled type 2 diabetes mellitus with hyperglycemia (HCC) Use as directed with insulin 100 Each 11 Active clopidogreL (PLAVIX) 75 mg Oral TabletIndications :Dyslipidemia associated with type 2 diabetes mellitus (HCC),History of TIA (transient ischemic attack) Take 1 tablet by mouth once daily 90 Tablet Active meloxicam (MOBIC) 15 mg Oral TabletIndications :Numbness and tingling of left arm and leg,Numbness and tingling of right arm and leg,Generalized osteoarthritis of multiple sites Take 1 Tablet by mouth daily. 30 Tablet 2 024 Active rosuvastatin (CRESTOR) 20 mg Oral TabletIndications :Dyslipidemia associated with type 2 diabetes mellitus (HCC) Take 1 tablet by mouth nightly 100 Tablet 2 Active insulin glargine (LANTUS SOLOSTAR U-100 INSULIN) 100 unit/mL (3 mL) SubQ Insulin PenIndications:Un controlled type 2 diabetes mellitus with hyperglycemia (HCC) Subcutaneous (Inject under the skin) 15 Units nightly. Active fUROsemide (LASIX) 20 mg Oral TabletIndications :CHF (congestive heart failure), NYHA class I, acute on chronic, combined (HCC) Take 3 tablets by mouth once daily 300 Tablet 2 025 Active clotrimazole-beta methasone (LOTRISONE) Top CreamIndications: Tinea corporis Apply topically 2 times daily. 15 g 1 025 Active clobetasoL (TEMOVATE) 0.05 % sclp SolutionIndicatio ns:Psoriasis of scalp APPLY SOLUTION TOPICALLY TWICE DAILY 50 mL 2 025 Active triamcinolone (KENALOG) 0.1 % Top CreamIndications: Facial rash Apply topically 2 times daily. 80 g 2 025 Active lisinopriL (PRINIVIL;ZESTRIL ) 2.5 mg Oral TabletIndications :Essential hypertension Take 1 tablet by mouth once daily 100 Tablet 2 025 Active ketoconazole (NIZORAL) 2 % Top Cream APPLY CREAM TOPICALLY ONCE DAILY 60 g 025 Active pantoprazole (PROTONIX) 40 mg Oral Tablet, Delayed Release (E.C.)Indications :Gastroesophageal reflux disease with esophagitis, unspecified whether hemorrhage Take 1 tablet by mouth twice daily 200 Tablet 1 025 Active dapagliflozin propanediol (FARXIGA) 10 mg Oral Tablet Take 1 Tablet by mouth daily. 90 Tablet 3 025 Active calcitRIOL (ROCALTROL) 0.25 mcg Oral CapsuleIndication s:Vitamin D deficiency Take 1 Capsule by mouth every 48 hours. 30 Capsule 6 025 Active insulin glargine (LANTUS SOLOSTAR U-100 INSULIN) 100 unit/mL (3 mL) SubQ Insulin Pen Inject 15 ml per day 15 mL 025 Active fexofenadine (MARILIA) 60 mg Oral TabletIndications :Sore throat,Runny nose Take 1 tablet by mouth twice daily 180 Tablet 025 Active isosorbide mononitrate (IMDUR) 60 mg Oral Tablet Sustained Release 24 hrIndications:Cor onary artery disease involving torres martinez heart without angina pectoris, unspecified vessel or lesion type,Chest pain, unspecified type TAKE 1 TABLET BY MOUTH ONCE DAILY IN THE MORNING 90 Tablet 025 Active ibuprofen (ADVIL;MOTRIN) 800 mg Oral Tablet TAKE 1 TABLET BY MOUTH EVERY 8 HOURS NEEDED 90 Tablet 025 Active metFORMIN (GLUCOPHAGE XR) 500 mg Oral ER 24 hr tabletIndications :Uncontrolled type 2 diabetes mellitus with hyperglycemia (HCC) Take 2 Tablets by mouth 2 times daily (with meals). 360 Tablet 025 Active ACCU-CHEK GUIDE TEST STRIPS Misc StripIndications: Uncontrolled type 2 diabetes mellitus with hyperglycemia (HCC) USE 1 STRIP THREE TIMES DAILY 200 Each Active insulin glargine (LANTUS SOLOSTAR U-100 INSULIN) 100 unit/mL (3 mL) SubQ Insulin Pen Inject 15 units daily 15 mL 025 2025 Active glimepiride (AMARYL) 4 mg Oral TabletIndications :Uncontrolled type 2 diabetes mellitus with hyperglycemia (HCC) TAKE 1 TABLET BY MOUTH TWICE DAILY BEFORE MEAL(S) 180 Tablet 025 Active Lancets (ACCU-CHEK SOFTCLIX LANCETS) Misc MiscIndications:U ncontrolled type 2 diabetes mellitus with hyperglycemia (HCC) USE 1 TO CHECK GLUCOSE THREE TIMES DAILY 200 Each 025 Active glimepiride (AMARYL) 4 mg Oral TabletIndications :Uncontrolled type 2 diabetes mellitus with hyperglycemia (HCC) TAKE 1 TABLET BY MOUTH TWICE DAILY BEFORE MEAL(S) 180 Tablet 025 2024 Discontinued Lancets (ACCU-CHEK SOFTCLIX LANCETS) Misc MiscIndications:U ncontrolled type 2 diabetes mellitus with hyperglycemia (HCC) USE 1 TO CHECK GLUCOSE THREE TIMES DAILY 200 Each 025 2024 Discontinued Active Problems Patient Care Coordination No te Formatting of this note migh t be different from the original. A1C>9 [facility] - Carlos Langston MD Interventional Pain Protocol: Mata report completed (EVERY 3 MONTHS) (04/20/2022) Pharmacy: [facility] [address] [place] [id number] [phone] [address] [facility] [phone] Spine Center additional info (Transportation, WC, Compound, No [...] Sister Social History Smoking Status as of 01/20/2025 Tobacco Use Types Packs/Day Years Used Date Smoking Tobacco: Never Assessed [facility] Utilities Answer Date Recorded In the [...] Date Recorded PHQ-2 Total Score 0 01/01/2024 [facility] - Occupational Stress [...] things needed for daily living? No 07/24/2024 [facility] IP Transportation Answer D ate Recorded [...] 07/18/2024 10:40 AM EDT Plan of Treatment Not on file Medical Devices Implanted Type Area Software Developer Manager Device Identifier Shelf Expiration Date Model / Serial / Lot Stent Coronary System 4.00 Mm X 18 Mm Xience [employer] Everol - [id number] Implanted:Qty: 1 on 02/16/2022 by Sapphire Munguia MD at [facility] N/A: RPDA BOOKER LAB:VASC DEV [id number] 08/22/2023 [id number] Procedures Procedure Name Priority Date/Time Associated Diagnosis [...] EDT Stage 3a chronic kidney disease (HCC) ALBUMIN/CREATININE RATIO, RANDOM URINE Routine 07/18/2024 11:32 AM EDT Stage [...] EDT ADMIT Routine 10/31/2023 1:24 PM EDT BENZENE OPERATOR HEMODYNAMIC WAVEFORMS Routine 10/31/2023 1:11 PM EDT [...] (shortness of breath) ASHD (arteriosclerotic heart disease) BENZENE OPERATOR HEMODYNAMIC WAVEFORMS Routine 10/01/2023 8:48 AM EDT PT / INR Routine 09/29/2023 9:29 AM EDT Dyslipidemia associated with type 2 diabetes mellitus (HCC) 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, unspecified vessel or lesion type BASIC METABOLIC PANEL Routine 09/29/2023 9:29 AM EDT Dyslipidemia associated with type 2 diabetes mellitus (HCC) 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, unspecified vessel or lesion type CBC Routine 09/29/2023 9:29 AM EDT Dyslipidemia associated with type 2 diabetes mellitus (HCC) 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, unspecified vessel or [...] with stage 3a chronic kidney disease (HCC) ALBUMIN/CREATININE RATIO, RANDOM URINE Routine 08/30/2023 1:59 PM EDT Stage [...] kidney disease (HCC) Edema due to hypervolemia ALBUMIN/CREATININE RATIO, RANDOM URINE Routine 08/13/2023 3:06 PM EDT Stage [...] diabetes mellitus with hyperglycemia (HCC) Pure hypercholesterolemia ALBUMIN/CREATININE RATIO, RANDOM URINE Routine 02/19/2023 8:59 AM EST Dyslipidemia [...] 8:46 AM EDTThis note is in progress. [facility] Surgical Consultation Note Admit Date: 08/18/2022 LOS: 1 day Body mass index is 35.65 kg/m . IMPRESSION Active Hospital Problems Diagnosis *CHF (congestive heart failure), NYHA class I, acute on chronic,combined (HCC) Right groin mass Obstructive sleep apnea syndrome BPH with obstruction/lower urinary tract symptoms Uncontrolled type 2 diabetes mellitus with hyperglycemia ([facility]) S/P CABG x 3 Hyperlipidemia GERD (gastroesophageal [...] tablet 6.25 mg, 6.25 mg, Oral, BID, Rodriguze,Harjodh, DO, 6.25 mg at 08/19/22 0814 cefTRIAXone in dextrose (ROCEPHIN) 2 gram/50 mL IVPB 2 g, 2 g,Intravenous, Daily, Rodriguez, Harjodh, DO, Last Rate: 100 mL/hr at 809, 2 g at 08/19/22 0809 dextrose 50 [...] tablet 60 mg, 60 mg, Oral, QAM,Rodriguez, Luchojodh, DO, 60 mg at 08/19/22 0814 lisinopriL (PRINIVIL;ZESTril) tablet 5 mg, 5 mg, Oral, Daily, Rodriguez,Harjodh, DO, 5 mg at 08/19/22 0814 morphine injection 2 mg, 2 mg, Intravenous, Q4H PRN OR morphineinjection 3-4 mg, 3-4 mg, Intravenous, Q4H PRN, Rodriguez, Luchojodh, DO nitroGLYCERIN (NITROSTAT) SL tablet 0.4 mg, 0.4 mg, Sublingual, Q5 MinPRN, Jennifer, Nimisha, DO ondansetron (ZOFRAN) tablet 4 mg, 4 mg, Oral, Q4H PRN ORondansetron (ZOFRAN) injection 4 mg, 4 mg, Intravenous, Q4H PRN, Rodriguez,Katiedh, DO pantoprazole (PROTONIX) tablet 40 mg, 40 mg, Oral, BID, Rodriguez,Harjodh, DO, 40 mg at 08/19/22 0814 polyethylene glycol (GLYCOLAX, MIRALAX) packet 17 g, 17 g, Oral, BIDPRN, Rodriguez, Katiedh, DO rosuvastatin (CRESTOR) tablet 20 mg, 20 mg, Oral, Nightly, Rodriguez,Katiedh, DO PAST MEDICAL HISTORY Past Medical History: Diagnosis Date Allergy Arthritis Chronic cough DM (diabetes mellitus) ([facility]) 02/12/2010 GERD (gastroesophageal reflux disease) H/O heart surgery Heart attack ([facility]) Heart disease High cholesterol History of chicken pox History of measles, mumps, or rubella HTN (hypertension) 02/12/2010 pt states never had HTN Hyperlipidemia Kidney stones Low testosterone MT (myocardial infarction) ([facility]) Nocturia 05/09/2019 Prostate disorder Urinary incontinence PAST SURGICAL HISTORY Past Surgical History: Procedure Laterality Date ANGIOPLASTY 1990 CARDIAC SURGERY N/A 08/25/2013 CORONARY ARTERY BYPASS GRAFTS X 3 USING BILATERAL SAPHENOUS VEIN X 2 ANDLEFT INTERNAL MAMMARY ARTERY BYPASS GRAFT X 1; Surgeon: Richard Jo MD; Location: [facility] MAIN OR; Service: Open Heart CORONARY PERCUTANEOUS INTERVENTION(PCI) N/A 02/16/2022 Surgeon: Sapphire Munguia MD; Location: [facility] CARDIAC CATH LABIMAGING; Service: Cardiac IR 2 [...] the prostate; Surgeon: Ina Overton MD; Location: [facility] MAIN OR; Service: Urology TONSILLECTOMY UPPER GASTROINTESTINAL ENDOSCOPY UPPER GASTROINTESTINAL ENDOSCOPY N/A 07/17/2018 ESOPHAGOGASTRODUODENOSCOPY with savary dilation and biopsy ; Surgeon: Stevie Acosta MD; Location: [facility] ENDOSCOPY; Service:Endoscopy UPPER GASTROINTESTINAL ENDOSCOPY N/A 09/20/2018 ESOPHAGOGASTRODUODENOSCOPY with biopsy; Surgeon: Stevie Acosta MD; Location: [facility] ENDOSCOPY; Service: Endoscopy SOCIAL HISTORY Social History [...] the ordering clinician. EK EKG 12 LEAD Dola Grant CoTest Date:2022-08-18 Pat Name: JACKIE FISHDARLING Department: DEPIDPatient ID: [id number] Room: Gender: MaleTechnician: Jose Manuel : [id number] By: JESSICA Brandon Order Number: [id number] MD: Sapphire MunguiaMeasurements Intervals Wayne Rate:78 P: 44 IL: 169QRS: -8 QRSD: 165 T:75 QT: 405 QTc:464Interpretive Statements SINUS RHYTHM LEFT BUNDLE BRANCH BLOCKElectronically Signed On 08-18-2022 18:39:09 EDT by Sapphire Munguia IP CONSULT TO CARDIOLOGY Routine 08/18/2022 11:43 PM EDT Procedure Note - Altaf Yañez MD - 08/19/2022 8:21 AM EDTThis note is in progress. Heart & Vascular Consult Note PATIENT: Jackie Sprague : 1955 PCP: Carlos A Gross DO Primary Pain Management Specialist: Dr. Munguia Reason for consult: CHF History [...] Hereports he had an angiogram done in [place] due to chest pain withreport of no [...] lesion is 80% stenosed. - Severe occluded torres martinez LAD/LCX and RCA - Patent KELLY to [...] hours: Intake/Output Summary (Last 24 hours) at 08/19/2022820 Last data filed at 08/19/2022 0516 Gross per 24 hour Intake 300 ml Output 650 ml Net -350 ml NET I/O since Admission: Net IO Since Admission: -350 mL [08/19/22820] Physical Exam Physical Exam Constitutional: Appearance: Normal [...] most recent cardiovascular imaging studies availabe in [facility] EMR werereviewed at time of [...] D-Dimer No results found for: DDIMER Hs-Troponin hx-iYafahwma-P 2HR Date Value Ref Range Status 08/18/2022 52 (H) <22 ng/L Final Comment: See the website below for rule out MT care pathway, conditions otherthan AMI that can cause elevated hs cTnT, and comparison of values fromthe 4th and 5th generation Marisabel tests.[email or web address] ASSESSMENT: Active Hospital Problems Diagnosis *CHF (congestive heart failure), NYHA class I, acute on chronic,combined (HCC) Right groin mass Obstructive sleep apnea syndrome BPH with obstruction/lower urinary tract symptoms Uncontrolled type 2 diabetes mellitus with hyperglycemia ([facility]) S/P CABG x 3 Hyperlipidemia GERD (gastroesophageal reflux disease) Acute on Chronic Heart Failure -ECHO (08/19/2021) LVEF 45-50%. G1DD. Abnormal wall motion. Trace MR andTR -BNP 3373 -CXR left base subsegmental atelectasis. Mild central vascularcongestion -ECHO pending -MICRO PALEONTOLOGIST lasix 20 mg BID, coreg 6.25 mg BID, lisinopril 5 mg -Current diuresis with lasix 40 mg BID -Strict I/Os, daily (standing) weights, fluid and sodium restriction,daily BMPs Right Groin Mass / ?Cellulitis of Right Groin -Reportedly occurred after LHC in [place] - (08/14/2022) no evidence of pseudoaneurysm. Enlarge lymph node -CT (08/18/2022) 6 cm diameter soft tissue mass suspicious for neoplasia -Noted Leukocytosis -Surgery consulted - no plans for intervention Coronary Artery Disease -s/p CABG CABG 2013 KELLY to LAD, SVG to RPDA and SVG to OM -[facility] (02/16/2022) severe occluded torres martinez LAD/LCx and RCA. Patent KELLY toLAD. Patent SVG to OM. Severe proximal SVG to RPDA stenosis s/p PCI withDES -Reports recently [facility] in [place] with no intervention (unable to viewrecords) -MICRO PALEONTOLOGIST bASA, plavix 75 mg, coreg 6.25 mg BID, imdur 60 mg, crestor 20 mg -Plavix and bASA on hold for possible intervention - would recommendresuming with REYNOLD ~6 months Diabetes -A1c 7.5 Hyperlipidemia -MICRO PALEONTOLOGIST statin -Lipid panel pending Hypertension -Coreg 6.25 [...] We will follow with you. Mirtha Gonzalez, FILEMAKER DEVELOPER 08/19/2022 Consulting Physician Altaf Yañez MD Reason for Cardiology consult CHF, Rt grain mass Chief Complaint: No chief complaint on file. HPI 66 y.o. male Seen in consultation History obtained in conjunction with COMMUNITY RELATIONS ADVISOR as follows... Jackie Sprague is a 66 [...] Hereports he had an angiogram done in [place] due to chest pain withreport of no [...] lesion is 80% stenosed. - Severe occluded torres martinez LAD/LCX and RCA - Patent KELLY to [...] reflux disease) H/O heart surgery Heart attack (HCC) Heart disease High cholesterol History of chicken pox History of measles, mumps, or rubella HTN (hypertension) 02/12/2010 pt states never had HTN Hyperlipidemia Kidney stones Low testosterone MT (myocardial infarction) ([facility]) Nocturia 05/09/2019 Prostate disorder Urinary incontinence Current [...] mg, 3-4 mg, Intravenous, Q4H PRN, Rodriguez, Nimisha, DO nitroGLYCERIN (NITROSTAT) SL tablet 0.4 mg, 0.4 mg, Sublingual, Q5 MinPRN, Jennifer, Katiedh, DO ondansetron (ZOFRAN) tablet 4 mg, 4 mg, Oral, Q4H PRN ORondansetron (ZOFRAN) injection 4 mg, 4 mg, Intravenous, Q4H PRN, Jennifer,Katiedh, DO pantoprazole (PROTONIX) tablet 40 mg, 40 mg, Oral, BID, Rodriguez,Nimisha, DO, 40 mg at 08/19/22 0814 polyethylene glycol (GLYCOLAX, MIRALAX) packet 17 g, 17 g, Oral, BIDPRN, Jennifer, Nimisha, DO rosuvastatin (CRESTOR) tablet 20 mg, 20 mg, Oral, Nightly, Rodriguez,Katiedh, DO Social History Socioeconomic History Marital status: [...] the prostate; Surgeon: Ina Overton MD; Location: [facility] MAIN OR; Service: Urology TONSILLECTOMY UPPER GASTROINTESTINAL ENDOSCOPY UPPER GASTROINTESTINAL ENDOSCOPY N/A 07/17/2018 ESOPHAGOGASTRODUODENOSCOPY with savary dilation and biopsy ; Surgeon: Stevie Acosta MD; Location: [facility] ENDOSCOPY; Service:Endoscopy UPPER GASTROINTESTINAL ENDOSCOPY N/A 09/20/2018 ESOPHAGOGASTRODUODENOSCOPY with biopsy; Surgeon: Stevei Acosta MD; Location: [facility] ENDOSCOPY; Service: Endoscopy Allergies Allergen Reactions Insulin [...] EK EKG [address] Test Date: 2022-08-18 Pat Name: JACKIE ABDI Department: DEPID Room: 01 Gender: Male Physical Testing Supervisor: Jose Manuel : 1955 Requested By: JESSICA Brandon Order Number: [id number] Reading MD: Sapphire Munguia Measurements Intervals Wayne Rate: 78 P: 44 IL: 169 QRS: -8 QRSD: 165 T: 75 [...] supportive of ACS picture --Recent LHC in [place] --Holding DAPT for now Rt Groin mass [...] The patient was seen in collaboration with FILEMAKER DEVELOPER. I have reviewed all pertinent history, laboratory and radiology studies. I have taken a history and performed a physical examination of thispatient. I agree with the history, physical, assessment and plan as outlined byARNP. Altaf Yañez MD [facility] ADMIT Routine 08/18/2022 10:27 PM EDT ADMIT [...] 12 LEAD STAT 08/18/2022 5:07 PM EDT VA US EVALUATE PSEUDOANEURYSM RIGHT STAT 08/14/2022 12:28 PM EDT 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, unspecified vessel or [...] PM EST Acute pain of left knee [place] ARTHROCENTESIS ASPIR&/INJ MAJOR JT/BURSA W/O US Routine [...] 10:16 AM EST Atherosclerotic heart disease of torres martinez coronary artery with other forms of angina pectoris Fluid retention in legs Angina of effort POCT EKG Routine 03/07/2022 9:44 AM EST 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, unspecified vessel or [...] LR POC Routine 02/16/2022 2:37 PM EST BENZENE OPERATOR HEMODYNAMIC WAVEFORMS Routine 02/16/2022 2:14 PM EST [...] 2 diabetes mellitus without complication, unspecified whether frame stripper and crusher insulin use (HCC) WOUND CULTURE (STAIN INCLUDED) [...] 9:52 AM EDT 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, unspecified vessel or lesion type S/P CABG x 3 POCT EKG Routine 06/23/2020 10:41 AM EDT Ischemic heart disease 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, unspecified vessel or [...] Routine 01/13/2020 1:00 PM EST Parotid mass NON-STORE HOST CYTOLOGY REQUEST Routine 01/13/2020 11:52 AM EST [...] risk factor modifications -Atorvastatin 10 mg daily (custodial LDL goal 50-70). -Please Keep custodial blood pressure goal less than 140/90 (a [...] or concerns. Phillip Negron MD HPI: Jackie Mims Riddarling is a right-handed man with a history [...] Allergy Arthritis Chronic cough DM (diabetes mellitus) ([facility]) 02/12/2010 GERD (gastroesophageal reflux disease) H/O heart surgery Heart attack ([facility]) Heart disease High cholesterol History of chicken pox History of measles, mumps, or rubella HTN (hypertension) 02/12/2010 pt states never had HTN Hyperlipidemia Kidney stones Low testosterone MT (myocardial infarction) ([facility]) Nocturia 05/09/2019 Prostate disorder Urinary incontinence Patient [...] (BMI) of 35.0 to 35.9 in adult ([facility]) 11/19/2018 Eosinophilic esophagitis Elevated lipoprotein(a) 08/01/2018 Followed by Endocrinology. Esophageal dysphagia Chronic pain syndrome 11/06/2017 Spondylosis of lumbar region without myelopathy or ueekuqqmvtuhv49/28/2018 Sacroiliitis ([facility]) 11/06/2017 Degenerative disc disease, lumbar 10/15/2017 Dysuria Benign prostatic hyperplasia with urinary frequency Acute prostatitis Yeast dermatitis of penis Acute pyelonephritis 09/20/2017 Elevated troponin 09/20/2017 SOB (shortness of breath) 09/20/2017 Uncontrolled type 2 diabetes mellitus with hyperglycemia ([facility])09/23/2014 Dyslipidemia associated with type 2 diabetes mellitus ([facility]) 08/20/2014 Followed by Endocrinology. Vitamin D deficiency [...] X 1; Surgeon: Richard Jo MD; Location: [facility] MAIN OR; Service: Open Heart IR 2 [...] YEARS 09/24/2017 Arabella Buckley PA FLOIR IR ULTRASOUND GUIDED VASCULAR ACCESS 09/24/2017 IR ULTRASOUND GUIDED VASCULAR ACCESS 09/24/2017 Arabella Buckley PA FLOIR PROSTATE SURGERY N/A 11/20/2019 cystoscopy transurethral resection of the prostate; Surgeon: Ina Overton MD; Location: [facility] MAIN OR; Service: Urology TONSILLECTOMY UPPER GASTROINTESTINAL ENDOSCOPY UPPER GASTROINTESTINAL ENDOSCOPY N/A 07/17/2018 ESOPHAGOGASTRODUODENOSCOPY with savary dilation and biopsy ; Surgeon: Stevie Acosta MD; Location: [facility] ENDOSCOPY; Service:Endoscopy UPPER GASTROINTESTINAL ENDOSCOPY N/A 09/20/2018 ESOPHAGOGASTRODUODENOSCOPY with biopsy; Surgeon: Stevie Acosta MD; Location: [facility] ENDOSCOPY; Service: Endoscopy Current Facility-Administered Medications Medication Dose Route Frequency Provider Last Rate Last Dose acetaminophen (TYLENOL) tablet 650 mg 650 mg Oral Q4H PRAlma Castro MD Or acetaminophen (TYLENOL) suppository 650 mg [...] 4 mg 4 mg Oral Q6H PRN Alma Barba MD Or ondansetron (ZOFRAN) injection 4 mg 4 mg Intravenous Q6H PRNSAlma Galeano MD pantoprazole (PROTONIX) tablet 40 mg 40 [...] 1707 sodium chloride 0.9% syringe Intravenous PRN Yordan Crisostomo MD tamsulosin (FLOMAX) capsule 0.8 mg [...] mouth daily. 90Tab 2 Blood Sugar Diagnostic Mis Strip Check blood sugars three times daily.accu-chek venkata plus Dx:E11.9 100 Each 11 Blood-Glucose Meter (FREESTYLE LITE METER) [facility] Kit USE DIRECTED 1Kit 0 Blood-Glucose Meter Misc Kit Check glucose twice a day 1 [...] Tab 2 lancets (FREESTYLE LANCETS) 28 gauge Misc Misc 1 Each by [facility].(Non-Drug;Combo Route) route 3 times daily. 100 Each [...] file Gets together: Not on file Attends taoism service: Not on file Active member of [...] of 12/01/19 EK EKG [address] Test Date: 2019-12-01 Pat Name: JACKIE ABDI Department: DEPID Room: 07 Gender: Male Physical Testing Supervisor: : 1955 Requested By: AUGUSTINA TITUS Order Number: [id number] Reading MD: Shelley Lockwood MD Measurements Intervals Wayne Rate: 70 P: 54 IL: 184 QRS: -8 QRSD: 147 T: 116 [...] Special Needs L/M to sched COVID RS 8/27 GLUCOSE METER POC Routine 11/20/2019 12:10 PM [...] PM EDT Bilateral shoulder pain, unspecified chronicity ALBUMIN/CREATININE RATIO, RANDOM URINE Routine 08/11/2019 4:30 PM EDT Uncontrolled [...] 04/16/2019 10:36 AM EST Vitamin D deficiency ALBUMIN/CREATININE RATIO, RANDOM URINE Routine 04/16/2019 10:36 AM EST Dyslipidemia [...] Ischemic heart disease 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, unspecified vessel or lesion type S/P CABG x 3 Dizziness POCT EKG Routine 02/20/2019 10:25 AM EST Ischemic heart disease 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, unspecified vessel or [...] 2 diabetes mellitus without complication, unspecified whether custodial insulin use (HCC) POCT GLYCATED HEMOGLOBIN, TOTAL Routine 10/14/2018 5:03 PM EDT Uncontrolled type 2 diabetes mellitus with hyperglycemia (HCC) Type 2 diabetes mellitus without complication, unspecified whether custodial insulin use (HCC) POCT MICROALBUMIN Routine 10/14/2018 [...] 2 diabetes mellitus without complication, unspecified whether frame stripper and crusher insulin use (HCC) PROSTATE SPECIFIC ANTIGEN (TUMOR [...] URINALYSIS Routine 10/11/2017 5:12 PM EDT Dysuria ALBUMIN/CREATININE RATIO, RANDOM URINE Routine 10/11/2017 5:12 PM EDT Controlled type 2 diabetes mellitus without complication, without long-term current use of insulin (HCC) URINE CULTURE (NO STAIN) Routine 10/11/2017 5:12 PM EDT Dysuria INSULIN ANTIBODY -REF LAB Routine 10/04/2017 10:25 AM EDT Type 2 diabetes mellitus without complication, without long-term current use of insulin (HCC) INSULIN FASTING Routine 10/04/2017 10:25 AM EDT Type 2 diabetes mellitus without complication, without long-term current use of insulin (HCC) IR ULTRASOUND GUIDED VASCULAR ACCESS ALEXANDRA 09/24/2017 3:52 PM EDT IR PICC INSERTION EQUAL OR > 5 YEARS ALXEANDRA 09/24/2017 3:52 PM EDT GLUCOSE METER POC [...] Jackie Abdi PCP: Omi Daly DO Primary Pain Management Specialist: Jeffy Fuentes M.D. 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) 02/12/2010 GERD (gastroesophageal reflux disease) HTN (hypertension) 02/12/2010 pt states never had HTN Hyperlipidemia MT (myocardial infarction) ([facility]) Medication aspirin 81 mg Oral Daily cefTRIAXone [...] Location: [facility] MAIN OR; Service: Open Heart Allergy Allergies [...] most recent cardiovascular imaging studies availabe in [facility] EMR werereviewed at time of [...] CABG 2013 -on ASA, imdur, BB, MISAEL MICRO PALEONTOLOGIST Plan: Trop elevation not consistent with ACS No ischemic changes on EKG Continue to monitor Continue cardiac meds Will defer any ischemic workup to MD Please also refer to orders on chart Further input from Dr. Hernandez Thank you for the consult. We will follow with you. Trang Villanueva, FILEMAKER DEVELOPER 09/20/2017 Addendum: I personally interviewed and examined [...] without long-term current use of insulin (HCC) ALBUMIN/CREATININE RATIO, RANDOM URINE Routine 11/02/2016 9:22 AM EDT Type [...] Type 2 diabetes mellitus with complication (HCC) ALBUMIN/CREATININE RATIO, RANDOM URINE Routine 10/11/2015 4:55 PM EDT Type [...] type 2 diabetes mellitus without complication (HCC) ALBUMIN/CREATININE RATIO, RANDOM URINE Routine 09/23/2014 8:14 AM EDT Controlled [...] EST Routine general medical examination at a [facility] care facility LIPID SCREEN Routine 04/18/2014 8:54 AM EST [...] EDTThis note is in progress. See dictated [id number] SCANNED RHYTHM STRIPS 08/27/2013 9:46 AM EDT [...] 08/25/2013 8:08 AM EDT Coronary atherosclerosis of torres martinez coronary artery Special Needs Pt will be transferred from [place] [facility] on 08/23 gurinder GLUCOSE METER POC Routine 08/25/2013 6:45 AM [...] 08/22/2013 4:55 PM EDT CARDIAC PROCEDURE - JANETH/FTT-BENZENE OPERATOR ONLY 08/22/2013 11:26 AM EDT Chest pain, unspecified Special Needs GUILLE CPT;22363 BENZENE OPERATOR PROCEDURE LOG Routine 4 12:00 AM EDT [...] EDT Routine general medical examination at a [facility] care facility LIPID SCREEN Routine 09/17/2012 9:48 AM [...] 10/19/2009 12:[address] ABD/PELVIS ANIMAL LABORATORY TECHNICIAN Routine 02/07/2009 12:59 AM EST GC XX ABDOMEN Routine 02/07/2009 12:53 AM EST XX SOFT TISSUE OF THE NECK Routine 08/25/2007 8:10 PM EDT Results * BILIRUBIN DIRECT (07/18/2024 11:32 AM EDT) Only the most recent of2 resultswithin the time period is included. Bili Direct <0.2 0.0 - 0.3 mg/dL 07/18/2024 7:37 PM EDT [facility] Blood VENOUS BLOOD / Unknown Venipuncture / Unknown 07/18/2024 11:32 AM EDT 07/18/2024 11:32 AM EDT us Abel Hernandez MD CHEMISTRY ORDERABLES Final Resul t [facility], [email or web address] [address] [facility] , [place] [address] * PROTEIN/CREATININE RATIO URINE (07/18/2024 11:32 AM EDT) Only the most recent of3 resultswithin the time period is included. Urine Protein <6.0 mg/dL 07/18/2024 3:57 PM EDT [facility], [email or web address] Urine Creatinine 57.9 mg/dL 07/18/2024 3:57 PM EDT [facility], [facility] Ur Protein/Creat <0.10 mg/mg 07/18/2024 3:57 PM EDT [facility] Urine STRUCTURE OF URINARY TRACT PROPER / Unknown 07/18/2024 11:32 AM EDT 07/18/2024 11:32 AM EDT Abel Hernandez MD URINE ORDERABLES Final Result Performing Organization Address [facility] de Phone Number [facility], [address] , [address] [place] [phone] [facility] [address] [place] [address] * VITAMIN D 25 HYDROXY (07/18/2024 11:32 AM EDT) Only the most recent of18 resultswithin the time period is included. Vit D 25 OH 64.0 30.0 - 150.0 ng/mL 07/18/2024 8:01 PM EDT [facility] [email or web address], [facility] Comment: Preferred: >= 30 ng/mL Insufficient: 21-29 [...] ORDERABLES Final Resul t Performing Organization Address [facility] Co de Phone Number [facility], [address] , [address] [place], [place] [phone] * MICROALBUMIN/CREATININE RATIO URINE (07/18/2024 11:32 AM EDT) Only the most recent of10 resultswithin the time period is included. Urine Albumin <12.0 mg/L 07/18/2024 3:57 PM EDT [facility], [facility] Urine Creatinine 57.9 mg/dL 07/19/19 3:57 PM EDT [facility], [facility] Ur Albumin/Creat Ratio 07/18/2024 3:57 PM EDT [facility] Comment: Because the albumin level is below [...] URINE ORDERABLES Final Result [facility], [facility] [address] [facility] , [address] [place] [phone] * (ABNORMAL) URINALYSIS (07/18/2024 11:32 AM EDT) Only the most recent of6 resultswithin the time period is included. UA Color Light Yellow 07/18/2024 1:49 PM EDT [facility] UA Appear Clear Clear 07/18/2024 1:49 PM EDT [facility] UA Glucose 4+ (>1000mg/dL) (A) Negative mg/dL [...] 1.035 no units 07/18/2024 1:49 PM EDT [facility] [employer] [facility] Comment:Reference range sofia d for random specimens only. Urine STRUCTURE OF URINARY TRACT PROPER / Unknown 07/18/2024 11:32 AM EDT 07/18/2024 11:32 AM EDT us Abel Hernandez MD URINE ORDERABLES Final Result Performing Organization Address [facility] Co de Phone Number [email or web address] [address] [facility] , [place] [address] * ALANINE AMINOTRANSFERASE (07/18/2024 11:32 AM EDT) Only the most recent of2 resultswithin the time period is included. ALT 19 <=41 U/L 07/18/2024 7:3 7 PM EDT [facility] [employer] [facility] Blood VENOUS BLOOD / Unknown Venipuncture / Unknown 07/18/2024 11:32 AM EDT 07/18/2024 11:32 AM EDT us Abel Hernandez MD CHEMISTRY ORDERABLES Final Resul t Performing Organization Address [facility] de Phone Number [facility] [employer] [facility] [address] [facility] , [place] [address] * ASPARTATE AMINOTRANSFERASE (07/18/2024 11:32 AM EDT) Only the most recent of2 resultswithin the time period is included. AST 14 <=40 U/L 07/18/2024 7:3 7 PM EDT [facility] [employer] [facility] Blood VENOUS BLOOD / Unknown Venipuncture / Unknown 07/18/2024 11:32 AM EDT 07/18/2024 11:32 AM EDT us Abel Hernandez MD CHEMISTRY ORDERABLES Final Resul t Performing Organization Address [facility] Co de Phone Number [facility] [employer] [facility] [address] [facility] , [address] [place] [phone] * (ABNORMAL) PROTEIN TOTAL-BLOOD (07/18/2024 11:32 AM EDT) Only the most recent of2 resultswithin the time period is included. Total Protein 6.2(L) 6.4 - 8.3 gm/dL 07/18/2024 7:37 PM EDT [facility] Blood VENOUS BLOOD / Unknown Venipuncture / Unknown 07/18/2024 11:32 AM EDT 07/18/2024 11:32 AM EDT us Abel Hernandez MD CHEMISTRY ORDERABLES Final Resul t Performing Organization Address City/[facility]/ZIP Co de Phone Number [facility] [address] [place] [address] , [place] [phone] * ALKALINE PHOSPHATASE (07/18/2024 11:32 AM EDT) Only the most recent of2 resultswithin the time period is included. Pathologist [facility] Alk Phos 83 40 - 129 U/L 07/18/2024 7:37 PM EDT [facility] Blood VENOUS BLOOD / Unknown Venipuncture / Unknown 07/18/2024 11:32 AM EDT 07/18/2024 11:32 AM EDT us Abel Hernandez MD CHEMISTRY ORDERABLES Final Resul t Performing Organization Address City/[facility]/ZIP Co de Phone Number [facility] [address] [place] [address] , [address] [place] [phone] * PARATHYROID HORMONE INTACT (07/18/2024 11:32 AM EDT) Only the most recent of4 resultswithin the time period is included. PTH Intact 62.50 15.00 - 65.00 pg/mL 07/18/2024 3:45 PM EDT [facility] Blood VENOUS BLOOD / Unknown Venipuncture / Unknown 07/18/2024 11:32 AM EDT 07/18/2024 11:32 AM EDT Narrative [facility] - 07/18/2024 3:45 PM EDT Intact PTH [...] can interfere with this immunoassay test. us Abel Hernandez MD CHEMISTRY ORDERABLES Final Resul t Performing Organization Address City/[facility] Co de Phone Number [facility] [employer] [address] , [place] [address] * BILIRUBIN TOTAL (07/18/2024 11:32 AM EDT) Only the most recent of2 resultswithin the time period is included. [facility] Bili Total 0.2 0.2 - 1.4 mg/dL 07/18/2024 7:37 PM EDT [employer] [facility] Blood VENOUS BLOOD / Unknown Venipuncture / Unknown 07/18/2024 11:32 AM EDT 07/18/2024 11:32 AM EDT us Abel Hernandez MD CHEMISTRY ORDERABLES Final Resul t Performing Organization Address [facility] Co de Phone Number [facility] [employer] [address] , [place] [address] * (ABNORMAL) RENAL FUNCTION PANEL (07/18/2024 11:32 AM EDT) Only the most recent of2 resultswithin the time period is included. [facility] Sodium 137 136 - 145 mmol/L 07/18/2024 7:37 PM EDT [facility] Potassium 4.1 3.5 - 5.0 mmol/L 07/18/2024 7:37 PM EDT [facility] Chloride 101 98 - 107 mmol/L 07/18/2024 7:37 PM EDT [facility] Total CO2 23 22 - 29 mmol/L 07/18/2024 7:37 PM EDT [facility] Anion Gap 13 7 - 16 mmol/L 07/18/2024 7:37 PM EDT [facility] Calcium 9.5 8.8 - 10.4 mg/dL 07/18/2024 7:37 PM EDT [facility] Glucose Lvl 289(H) 70 - 99 mg/dL 07/18/2024 7:37 PM EDT [facility] BUN 20 8 - 23 mg/dL 07/18/2024 7:37 PM EDT [facility] Creatinine 1.36(H) 0.67 - 1.30 mg/dL 07/18/2024 7:37 PM EDT [facility] Albumin 4.0 3.2 - 4.6 gm/dL 07/18/2024 7:37 PM EDT [facility] Phosphorus 3.5 2.5 - 4.5 mg/dL 07/18/2024 7:37 PM EDT [facility], [facility] eGFR (CKD-EPIcr 2020) 56(L) >=60 mL/min/1.7 3 m2 07/18/2024 7:37 PM EDT [facility] Comment:Estimated GFR was ca lculated using the CKD-EPIcr (2020) equation refit without race. The equation is recommended by the National Kidney [employer] - [place] [employer] Neph[employer] Task Force. Blood VENOUS BLOOD / Unknown Venipuncture / Unknown 07/18/2024 11:32 AM EDT 07/18/2024 11:32 AM EDT us Abel Hernandez MD CHEMISTRY ORDERABLES Final Resul t [facility], [facility] [address] [facility] , [place] [address] * XR CHEST PA AND LATERAL (02/13/2024 [...] X-RAY, 02/13/2024 2:26 PM CLINICAL HISTORY: R60.0-Localized mqnit-MIS-04-CM I50.43-Acute on chronic combined systolic (congestive) and [...] X-RAY, 02/13/2024 2:26 PM CLINICAL HISTORY: R60.0-Localized hlwgj-MGN-89-CM I50.43-Acute on chronic combined systolic (congestive) and [...] 02/11/2024 7:29 PM EST [facility] Potassium 4.5 3.5 - 5.0 mmol/L 02/11/2024 7:29 PM EST [facility] Chloride 100 98 - 107 mmol/L 02/11/2024 7:29 PM EST [facility] Total CO2 24 22 - 29 mmol/L 02/11/2024 7:29 PM EST [facility] Anion Gap 18(H) 7 - 16 mmol/L 02/11/2024 7:29 PM EST [facility] Calcium 9.7 8.8 - 10.4 mg/dL 02/11/2024 7:29 PM EST [facility] Glucose Lvl 341(H) 70 - 99 mg/dL 02/11/2024 7:29 PM EST [facility] BUN 23 8 - 23 mg/dL 02/11/2024 7:29 PM EST [facility] Creatinine 1.59(H) 0.67 - 1.30 mg/dL 02/11/2024 7:29 PM EST [facility] eGFR (CKD-EPIcr 2020) 46(L) >=60 mL/min/1.7 3 m2 02/11/2024 7:29 PM EST [facility] Comment:Estimated GFR was ca lculated using the CKD-EPIcr (2020) equation refit without race. The equation is recommended by the National Kidney Foundation - [place] [employer] Nephrology Task Force. Blood VENOUS BLOOD / Unknown Venipuncture / Unknown 02/11/2024 8:32 AM EST 02/11/2024 8:32 AM EST us Viral Gross V, DO CHEMISTRY ORDERABLES Final Res ult [facility], [facility] [address] [facility] , [address] [place] [phone] [facility] [address] [place] [address] * (ABNORMAL) GLUCOSE METER POC (01/03/2024 7:51 AM EDT) Only the most recent of140 resultswithin the time period is included. Pathologist [facility] Glucose Meter POC 179(H) 70 - 100 mg/dL 01/03/2024 7:53 AM EDT [facility] Sample Type Capillary 01/03/2024 7:53 AM EDT [facility] Patient Status Non-Critical Patient 01/03/2024 7:53 AM EDT [facility] Blood BLOOD SPECIMEN / Unknown 01/03/2024 7:51 AM EDT 01/03/2024 7:53 AM EDT Momo Castellanos MD POINT OF CARE TEST ORDERABLES Fi nal Result Performing Organization Address [facility]/ZIP Co de Phone Number [facility] [address] [place] [address] * ECG AND WAVEFORMS - TELEMETRY (01/03/2024 7:18 AM EDT) Only the most recent of37 resultswithin the time period is included. [facility] ECG INTERPRET First Degree Sinus Rhythm [facility] 01/03/2024 7:18 AM EDT Narrative [facility] - 01/03/2024 7:21 AM EDT SR;IVCD-ROUTINE/PB IL 0.23 QRS 0.15 RR 0.79 QT 0.42 QTc 0.47 See Clinical Report link for waveform capture us Unknown Provider POINT OF CARE CARDIOLOGY Final Result Performing Organization Address City/[facility]/ZIP Co de Phone Number [facility] [address] [place] [address] * CBC (01/03/2024 6:05 AM EDT) Only the most recent of15 resultswithin the time period is included. Pathologist [facility] WBC 4.9 3.7 - 10.3 x10(3)/mcL 01/03/2024 6:36 AM EDT [facility] RBC 4.99 4.60 - 6.10 x10(6)/mcL 01/03/2024 6:36 AM EDT [facility] Hgb 14.0 13.7 - 17.5 g/dL 01/03/2024 6:36 AM EDT [facility] Hct 43.0 40.0 - 51.0 % 01/03/2024 6:36 AM EDT [facility] MCV 86.2 80.0 - 100.0 fL 01/03/2024 6:36 AM EDT [facility] MCH 28.1 26.0 - 34.0 pg 01/03/2024 6:36 AM EDT [facility] MCHC 32.6 30.7 - 35.5 g/dL 01/03/2024 6:36 AM EDT [facility] RDW 13.2 <=14.9 % 01/03/2024 6:36 AM EDT [facility] Platelet 210 155 - 369 x10(3)/mcL 01/03/2024 6:36 AM EDT [facility] MPV 11.5 8.8 - 12.5 fL 01/03/2024 6:36 AM EDT [facility] Blood VENOUS BLOOD / Unknown Venipuncture / Unknown 01/03/2024 6:05 AM EDT 01/03/2024 6:29 AM EDT us Familia Broderick MD (Ronny) HEMATOLOGY [facility] Final Result Performing Organization Address City/State/[facility] Co de Phone Number [address] [id number] * SCANNED EKG (01/02/2024 8:36 AM EDT) Only the most recent of4 resultswithin the time period is included. Anatomical Region Laterality Modality Other 01/02/2024 8:36 AM EDT us Unknown Provider IMG ECG ORDERABLES Final Result * (ABNORMAL) TROPONIN-T HIGH SENSITIVITY 2HR (12/31/2023 2:49 PM EDT) Only the most recent of4 resultswithin the time period is included. pn-cPbsfjdvd-R 2HR 49(H) <22 ng/L 12/31/2023 3:10 PM EDT [facility] Comment:See the website kelly NOTIK for rule out MT care pathway, conditions other than AMI that can cause elevated hs cTnT, and comparison of values from the 4th and 5th generation Marisabel tests. https://askmayoexpert.[email or web address]/topic/clinical-answers/gnt-53660883/cpm-203 29348 hs-cTnT 2Hr Delta from Baseline 2 <4 ng/L 12/31/2023 3:10 PM EDT [facility] Blood VENOUS BLOOD / Unknown Venipuncture / Unknown 12/31/2023 2:49 PM EDT 12/31/2023 2:51 PM EDT Narrative [facility] - 12/31/2023 3:10 PM EDT Ingestion of joaquin doses of biotin (>5 mg/day) taken within 8 hours of drawing blood sample can interfere with this immunoassay test. us Sixto Jose MD CHEMISTRY ORDERABLES Amie mcgee Result [facility] [address] [place] [address] * XR CHEST AP PORTABLE (12/31/2023 1:44 [...] of4 resultswithin the time period is included. fm-kElvgpelu-Y 47(H) <22 ng/L 12/31/2023 1:25 PM EDT [facility] Comment:See the website LightPole for rule out [place] care pathway, conditions other than AMI that can cause elevated hs cTnT, and comparison of values from the 4th and 5th generation Marisabel tests. https://askmayoexpert.[email or web address]/topic/clinical-answers/gnt-[email or web address]/cpm-[email or web address] 85074 Blood VENOUS BLOOD / Unknown Venipuncture / Unknown 12/31/2023 12:55 PM EDT 12/31/2023 12:59 PM EDT Narrative [facility] - 12/31/2023 1:25 PM EDT Ingestion of joaquin doses of biotin (>5 mg/day) taken within 8 hours of drawing blood sample can interfere with this immunoassay test. us Sixto Jose MD CHEMISTRY ORDERABLES Amie l Result Performing Organization Address [facility] de Phone Number [facility] [address] [place] [address] * (ABNORMAL) NT PROBNP (12/31/2023 12:55 PM EDT) Only the most recent of2 resultswithin the time period is included. NT Pro-BNP 2,162(H) <=229 pg/mL 12/31/2023 1:35 PM EDT [facility] Blood VENOUS BLOOD / Unknown Venipuncture / Unknown 12/31/2023 12:55 PM EDT 12/31/2023 12:59 PM EDT Narrative [facility] - 12/31/2023 1:35 PM EDT An NT pro-BNP level less than 300 pg/mL in any patient, regardless of age, effectively rules out acute CHF with a 99% negative predictive value. Ingestion of joaquin doses of biotin (>5 mg/day) taken within 8 hours of drawing blood sample can interfere with this immunoassay test. Sixto Jose MD CHEMISTRY ORDERABLES Amie l Result Performing Organization Address [facility] de Phone Number [facility] [address] [place] [address] * EK EKG 12 LEAD (12/31/2023 12:24 PM EDT) Only the most recent of11 resultswithin the time period is included. Anatomical Region Laterality Modality Electrocardiogra phy 12/31/2023 12:3 5 PM EDT Impressions 12/31/2023 4:09 PM EDT [facility] Test Date: 2023-12-31 Pat Name: JACKIE ABDI Department: DEPID Room: Gender: Male Physical Testing Supervisor: Hai : 1955 Requested By: [facility] Order Number: [id number] Reading MD: Jimbo Mcdaniel Measurements Intervals Wayne Rate: 60 P: 32 IL: 201 QRS: -22 QRSD: 152 T: 136 QT: 460 QTc: 463 Interpretive Statements SINUS RHYTHM LEFT BUNDLE BRANCH BLOCK Electronically Signed On 12-31-2023 16:09:13 EDT by Jimbo Mcdaniel Narrative Procedure Note Jimbo Mcdaniel MD - 12/31/[address] [facility] Test Date: 2023-12-31 Pat Name: JACKIE ABDI Department: DEPID Room: Gender: Male Physical Testing Supervisor: Hai : 1955 Requested By: [facility] Order Number: [id number] Reading MD: Jimbo Mcdaniel Measurements Intervals Wayne Rate: 60 P: 32 IL: 201 QRS: -22 QRSD: 152 T: 136 [...] deltoid and cervical paraspinal muscles. us Viral Gross V, DO NEUROLOGY ORDERABLES Final Res ult SEP OFFICE * (ABNORMAL) HEMOGLOBIN A1C (12/12/2023 2:26 PM EDT) Only the most recent of34 resultswithin the time period is included. Hgb A1C 9.6(H) 4.2 - 5.6 % 12/12/2023 7:30 PM EDT [facility] Avg Glucose 229 mg/dL 12/12/2023 7:30 PM EDT [facility] Blood VENOUS BLOOD / Unknown Venipuncture / Unknown 12/12/2023 2:26 PM EDT 12/12/2023 2:26 PM EDT Narrative [facility] [employer] [facility] - 12/12/2023 7:30 PM EDT REFERENCE RANGE: Normal: 4.0-5.6% Pre-diabetes: 5.7-6.4% Provisional diagnosis of diabetes: >6.4% Hgb F>10% and anything which shortens red cell survival, such as hemolytic anemia, or unstable hemoglobin variants such as HbSS, HbSC, or HbCC, will lower the HbA1c value associated with a given level of glycemic control. 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 us Viral Renato V, IMG DIAGNOSTIC IMAGING ORDERAB LES Final Result * (ABNORMAL) LIPID SCREEN (11/01/2023 6:59 AM EDT) Only the most recent of11 resultswithin the time period is included. Cholesterol 119 <200 mg/dL 11/01/2023 7:38 AM EDT [facility] Comment: < 200 Desirable 200 - 239 Borderline High >= 240 High Triglyceride 213(H) <150 mg/dL 11/01/2023 7:38 AM EDT [facility] Comment: < 150 Normal 150 - 199 Borderline High 200 - 499 High >= 500 Very High HDL 28(L) >=40 mg/dL 11/01/2023 7:38 AM EDT [facility] Comment: > 60 Optimal 40 - 60 Acceptable < 40 Low LDL Calculated 56 <100 mg/dL 11/01/2023 7:38 AM EDT [facility] Comment: < 100 Optimal 100 - 129 Near or above optimal 130 - 159 Borderline High 160 - 189 High >= 190 Very High Non-HDL-C Calculated 91 <=129 mg/dL 11/01/2023 7:38 AM EDT [facility] Comment: <130 Desirable 130-159 Above Desirable 160-189 Borderline High 190-219 High >= 220 Very High Fasting Specimen? Yes None 024 7:38 AM EDT [facility] Blood VENOUS BLOOD / Unknown Venipuncture / Unknown 11/01/2023 6:59 AM EDT 11/01/2023 7:03 AM EDT Sapphire Munguia MD CHEMISTRY ORDERABLES Final Result PREFERRED [email or web address] [address] [facility] [address] [place] [address] [facility] [address] [place] [address] * EC ECHOCARDIOGRAM LIMITED (10/31/2023 4:51 PM [...] effusion. * There is no pericardial effusion. us Sapphire Munguia MD [facility] ECHO ORDERABLES Final Result * EC ECHOCARDIOGRAM [...] reduced with an estimatedejection fraction of 25-30%. us Sapphire Munguia MD [facility] ECHO ORDERABLES Final Result * CORONARY ANGIOGRAM (COR/LHC/LV GRAM, CARDIAC CATHETERIZATION), ULTRASOUND GUIDED VASCULAR ACCESS (10/31/2023 3:00 PM EDT) Only the most recent of3 resultswithin the time period is included. Narrative [facility] - 11/06/2023 11:00 AM EDT Procedure Details Procedure: Attempted PCI to LM.LCx RACQUET MAKER Cardiac cath The patient was brought to the cardiac cath laboratory suite and was prepped and draped in the usual sterile fashion. Conscious sedation was achieved with IV versed and fentanyl. 10 ml of 2% lidocaine was used to provide local anesthesia over the prepared site. Using US guidance a 7 Fr sheath inserted in rt POWDER COATER A 6 FR sheath inserted in rt [...] long segment occlusion Using antegrade wire escalation Vegetable Loader Machine Operator 150 then changed to Mongo and gaya 2 and 3 Able to cross proximal [...] A/p Unsuccessful PCI to long segment LM/LCX RACQUET MAKER Continue to optimize med rx Can reattempt PCI to RACQUET MAKER depending on clinical progress Sapphire Munguia MD CARDIAC CATH ORDERABLES Fi nal Result Performing Organization Address [facility] Co de Phone Number [employer] CARDIOLOGY * (ABNORMAL) ACTIVATED CLOTTING TIME LR POC (10/31/2023 2:45 PM EDT) Only the most recent of7 resultswithin the time period is included. ACT-LR 214(H) 89 - 169 second(s) 10/31/2023 2:51 PM EDT [facility] Blood BLOOD SPECIMEN / Unknown 10/31/2023 2:45 PM EDT 10/31/2023 2:51 PM EDT Sapphire Munguia MD POINT OF CARE TEST ORDERAB LES Final Result Performing Organization Address [facility] Co de Phone Number [facility] 1 [place] [address] * BENZENE OPERATOR HEMODYNAMIC WAVEFORMS (10/31/2023 1:11 PM EDT) Only the most recent of3 resultswithin the time period is included. 10/31/2023 1:11 PM EDT us Sapphire Munguia MD CARDIAC CATH ORDERABLES Fi nal Result Performing Organization Address [facility] Co de Phone Number [facility] 1 [place] [address] * PT / INR (10/30/2023 8:50 AM EDT) Only the most recent of6 resultswithin the time period is included. PT 10.9 10.5 - 13.6 second(s) 10/30/2023 2:07 PM EDT [facility] INR 0.92 0.89 - 1.16 (ratio) 10/30/2023 2:07 PM EDT [facility] Comment: Level of Therapy Indications Target INR Range Standard Dose Treatment and prophylaxis of venous 2.0 - 3.0 thrombosis, pulmonary embolism High Dose High risk patients with mechanical 2.5 - 3.5 heart valves Blood VENOUS BLOOD / Unknown Venipuncture / Unknown 10/30/2023 8:50 AM EDT 10/30/2023 8:50 AM EDT us Kelin Tran FILEMAKER DEVELOPER HEMATOLOGY ORDERABLES Final Res ult [facility] [address] [facility] , [place] [address] * (ABNORMAL) CBC WITH DIFF (10/30/2023 8:50 [...] 10/30/2023 2:13 PM EDT [facility] Platelet 198 155 - 369 x10(3)/mcL 10/30/2023 2:13 PM EDT [facility] MPV 12.6(H) 8.8 - 12.5 fL 10/30/2023 2:13 PM EDT [facility] Neut Percent 64.1 % 10/30/2023 2:13 PM EDT [facility] Comment:Neutrophils equals s egs plus bands Imm Gran% 0.6 % 10/30/2023 2:13 PM EDT [facility] Comment:Automated count of m etamyelocytes, myelocytes and promyelocytes. Lymph Percent 21.8 % 10/30/2023 2:13 PM EDT [facility] Tate Percent 8.1 % 10/30/2023 2:13 PM EDT [facility] Eos Percent 5.0 % 10/30/2023 2:13 PM EDT [facility] Baso Percent 0.4 % 10/30/2023 2:13 PM EDT [facility] Neut # 3.3 1.6 - 6.1 x10(3)/mcL 10/30/2023 2:13 PM EDT [facility] Comment:Neutrophils equals s egs plus bands IMMGRAN# 0.0 0.0 - 0.1 x10(3)/mcL 10/30/2023 2:13 PM EDT [facility] Comment:Automated count of m etamyelocytes, myelocytes and promyelocytes. An absolute IG <0.1 is reported as 0.0. Lymph # 1.1(L) 1.2 - 3.9 x10(3)/mcL 10/30/2023 2:13 PM EDT [facility] Tate # 0.4 0.3 - 0.9 x10(3)/mcL 10/30/2023 2:13 PM EDT [facility] Eos# 0.3 0.0 - 0.5 x10(3)/mcL 10/30/2023 2:13 PM EDT [facility] Baso # 0.0 0.0 - 0.1 x10(3)/mcL 10/30/2023 2:13 PM EDT [facility] Blood VENOUS BLOOD / Unknown Venipuncture / Unknown 10/30/2023 8:50 AM EDT 10/30/2023 8:50 AM EDT us Kelin Tran FILEMAKER DEVELOPER HEMATOLOGY ORDERABLES Final Res ult [facility] 1 [facility] , [place] [address] * XR LUMBAR SPINE AP LATERAL FLEXION AND EXTENSION (09/18/2023 10:24 AM EDT) Narrative Pia Boyd - 09/18/2023 10:26 AM EDT Please see [...] CLINICAL HISTORY: Thyroid nodule(s). 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 COMPARISON: 10/04/2022 PROCEDURE COMMENTS: Sonographic evaluation of [...] CLINICAL HISTORY: Thyroid nodule(s). 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 COMPARISON: 10/04/2022 PROCEDURE COMMENTS: Sonographic evaluation of [...] 4.5 mg/dL 08/30/2023 8:01 PM EDT [facility] Blood VENOUS BLOOD / Unknown Venipuncture / Unknown 08/30/2023 1:59 PM EDT 08/30/2023 2:00 PM EDT Abel Hernandez MD CHEMISTRY ORDERABLES Final Resul t [facility] 1 [facility] , [place] [address] * (ABNORMAL) COMPREHENSIVE METABOLIC PANEL (08/30/2023 1:59 PM EDT) Only the most recent of23 resultswithin the time period is included. Sodium 140 136 - 145 mmol/L 08/30/2023 8:01 PM EDT [facility] Potassium 4.0 3.5 - 5.0 mmol/L 08/30/2023 8:01 PM EDT [facility] Chloride 106 98 - 107 mmol/L 08/30/2023 8:01 PM EDT [facility] Total CO2 21(L) 22 - 29 mmol/L 08/30/2023 8:01 PM EDT [facility] Anion Gap 13 7 - 16 mmol/L 08/30/2023 8:01 PM EDT [facility] Calcium 9.8 8.8 - 10.4 mg/dL 08/30/2023 8:01 PM EDT [facility] Glucose Lvl 218(H) 70 - 99 mg/dL 08/30/2023 8:01 PM EDT [facility] BUN 19 8 - 23 mg/dL 08/30/2023 8:01 PM EDT [facility] Creatinine 1.26 0.67 - 1.30 mg/dL 08/30/2023 8:01 PM EDT [facility] Albumin 4.1 3.2 - 4.6 gm/dL 08/30/2023 8:01 PM EDT [facility] Total Protein 6.3(L) 6.4 - 8.3 gm/dL 08/30/2023 8:01 PM EDT [facility] Bili Total 0.2 0.2 - 1.4 mg/dL 08/30/2023 8:01 PM EDT [facility] ALT 17 <=41 U/L 08/30/2023 8:01 PM EDT [facility] AST 19 <=40 U/L 08/30/2023 8:01 PM EDT [facility] Alk Phos 100 40 - 129 U/L 08/30/2023 8:01 PM EDT [facility] eGFR (CKD-EPIcr 2020) 62 >=60 mL/min/1.7 3 m2 08/30/2023 8:01 PM EDT [facility] Comment:Estimated GFR was ca lculated using the CKD-EPIcr (2020) equation refit without race. The equation is recommended by the National Kidney Foundation - [place] [employer]ph[employer] Task Force. Blood VENOUS BLOOD / Unknown Venipuncture / Unknown 08/30/2023 1:59 PM EDT 08/30/2023 2:00 PM EDT us Oswaldo Harry MD CHEMISTRY ORDERABLES Fin al Result [email or web address] [address] [facility] [address], [place] [address] [facility] [address] [place], [place] [id number] * DIABETIC EYE EXAM (08/15/2023) Right Diabetic Retinopathy Present Present/Not Present [facility] Comment:chronic mild non pro liferative retinopathy Left Diabetic Retinopathy Present Present/Not Present [facility] Comment:chronic mild non pro liferative retinopathy us Merle Kline OD OUTPATIENT REFERRAL ORDERABLE S Final Result Performing Organization Address [facility] Co de Phone Number SEP OFFICE * (ABNORMAL) DIABETES EYE EXAM (08/15/2023) Left Diabetic Retinopathy Present Present/Not Present [facility] Comment:[place] eye Right Diabetic Retinopathy Present Present/Not Present [facility]ICE 08/15/2023 us Historical Provider HEALTH MAINTENANCE Final Res ult Performing Organization Address [facility] Co de Phone Number SEP OFFICE * [...] size and normal left ventricular systolic function. us Sapphire Munguia MD IMG NM CARDIAC ORDERABLES Final Result * ST STRESS TEST LEXISCAN (06/27/2023 2:22 PM EDT) Only the most recent of2 resultswithin the time period is included. Anatomical Region Laterality Modality Cardiac Stress T esting 06/27/2023 1:50 PM EDT Impressions 06/27/2023 3:11 PM EDT [facility] Test Date: 2023-06-27 Pat Name: [facility] Department: DEPID Room: Gender: Male Physical Testing Supervisor: Aisha Barth RN : 1955 Requested By: SAPPHIRE MUNGUIA Order Number: [id number] Radha MD: Jimbo Mcdaniel Interpretive Statements Stress Test [...] Note Jimbo Mcdaniel MD - 06/27/2023 IMPRESSION [facility] Test Date: 2023-06-27 Pat Name: JACKIE [facility] Department: DEPID Room: Gender: Male Physical Testing Supervisor: Aisha Barth RN : 1955 Requested By: SAPPHIRE MUNGUIA Order Number: [id number] Reading MD: Jimbo Mcdaniel Interpretive Statements Stress [...] <=500 ng/mL FEU 06/07/2023 10:05 PM EDT [facility] Comment:This is an automated latex [...] PM EDT 06/07/2023 9:59 PM EDT Narrative [facility] - 06/07/2023 10:05 PM EDT For patients between the ages of 50 - 75, an age-adjusted D-Dimer cut-off in combination with non-high clinical probability may be considered for the exclusion of venous thromboembolism (calculation = age x 10). MAKAYLA Santoro, et al. [employer]. 2017;166(5):361-363 ADILIA Denny, et al. [employer]. 2015;(163):701-711. Obdulio M, et al. CALIXTO. 2014;(11):5872-4747. us Piedad Jimenez MD HEMATOLOGY ORDERABLES Final Result [facility] [address] [id number] * US RENAL AND BLADDER (06/06/2023 4:53 [...] evaluation of the kidneys and bladder with customer solutions representative images and gas leak inspector helper notes sent to PACS for radiologist review. [...] sonographic evaluation of the kidneys andbladder with customer solutions representative images and gas leak inspector helper notes sent to PACS forradiologist review. FINDINGS: [...] please contactthe office of the ordering clinician. Abel Hernnadez MD [facility] ORDERABLES Final Result * POCT URINALYSIS DIPSTICK (06/04/2023 4:06 PM EDT) Only the most recent of15 resultswithin the time period is included. Color, UA yellow CLEAR,YELL OW,ORANGE, RUST [facility] Clarity, UA clear CLEAR,CLOU DY [facility] Glucose, UA neg G/DL% [facility] Bilirubin, UA neg POS/NEG [facility] Ketones, UA neg POS/NEG [facility] guide domestic tour Grav, UA 1.005 1.001 - 1.035 G/DL [facility] Blood, UA neg POS/NEG [facility] pH, UA 5.0 5.0 - 8 [facility] Protein, UA neg POS/NEG [facility] Urobilinogen, UA neg 0.2 - 1.0 MG/DL [facility] Nitrite, UA neg POS/NEG [facility] Leukocytes, UA neg POS/NEG [facility] UA Appear POC [facility] Lot Number [facility] Expiration Date [facility] SeriAl # [facility] Urine 06/04/2023 4:06 PM EDT us Abel Hernandez MD POINT OF CARE TEST ORDERABLES Fi nal Result [facility] * LIPASE LEVEL (05/13/2023 10:49 AM EST) Lipase Lvl 51 13 - 60 U/L 05/13/2023 1:17 PM EST [facility] Blood VENOUS BLOOD / Unknown Venipuncture / Unknown 05/13/2023 10:49 AM EST 05/13/2023 10:49 AM EST us Viral Gross V, DO CHEMISTRY ORDERABLES Final Res ult Performing Organization Address City/[facility]/ZIP Co de Phone Number [facility] [address] [facility], [place] [address] * HEPATIC FUNCTION PANEL (05/13/2023 10:49 AM [...] 10:49 AM EST 05/13/2023 10:49 AM EST Viral Gross V, DO CHEMISTRY ORDERABLES Final Res ult Performing Organization Address [facility] de Phone Number [facility] [address] [place] [address] , [place] [address] * THYROID STIMULATING HORMONE (02/19/2023 8:59 AM EST) Only the most recent of12 resultswithin the time period is included. TSH 1.270 0.270 - 4.200 mcIU/mL 02/19/2023 4:47 PM EST [facility] Blood VENOUS BLOOD / Unknown Venipuncture / Unknown 02/19/2023 8:59 AM EST 02/19/2023 8:59 AM EST Narrative [facility] - 02/19/2023 4:47 PM EST Ingestion of joaquin doses of biotin (>5 mg/day) taken within 8 hours of drawing blood sample can interfere with this immunoassay test. Viral Gross V, DO CHEMISTRY ORDERABLES Final Res ult Performing Organization Address [facility] de Phone Number [facility] [address] [place] [address] , [place] [address] * OCT, RETINA - OU - BOTH EYES (10/03/2022 3:40 PM EDT) Narrative [facility] - 10/03/2022 3:40 PM EDT Patient is here for follow up imaging. Notes OD,OS Signal Strength 9/10, 10/10 Average Thickness 243, 250 macular cysts - improved from last visit Merle Kline OD OPHTHALMOLOGY SERVICES ORDERA BLES Final Result Performing Organization Address [facility] Co de Phone Number SE[facility] * T4, FREE (THYROXINE) (10/03/2022 1:57 PM EDT) Only the most recent of5 resultswithin the time period is included. Free T4 1.38 0.80 - 1.80 ng/dL 10/03/2022 8:59 PM EDT [facility] Blood VENOUS BLOOD / Unknown Venipuncture / Unknown 10/03/2022 1:57 PM EDT 10/03/2022 1:57 PM EDT Narrative [facility] - 10/03/2022 8:59 PM EDT Ingestion of joaquin doses of biotin (>5 mg/day) taken within 8 hours of drawing blood sample can interfere with this immunoassay test. us Viral Gross V, DO CHEMISTRY ORDERABLES Final Res ult [facility] [address] [facility] , [place] [address] * (ABNORMAL) POCT GLYCATED HEMOGLOBIN, TOTAL (09/28/2022 12:34 PM EDT) Only the most recent of6 resultswithin the time period is included. Hemoglobin A1C 10(A) 4 - 6 % [facility] Lot Number SEP OFFICE Expiration Date SEP OFFICE SeriAl # SEP OFFICE 09/28/2022 12:3 4 PM EDT us Edith Arehart FILEMAKER DEVELOPER POINT OF CARE TEST ORDERABLES Final Result Performing Organization Address [facility] de Phone Number SEP OFFICE * POCT [...] 12:3 3 PM EDT us Edith Arehart FILEMAKER DEVELOPER POINT OF CARE TEST ORDERABLES Final Result Performing Organization Address City/[facility]/ZIP Co de Phone Number SEP OFFICE * POCT VERONA STREP A+ (09/28/2022 12:33 PM EDT) STREP A+ ANTIGEN Negative Negative SEP OFF[facility] Lot Number SEP OFFICE Expiration Date SEP OFFICE SeriAl # SEP OFFICE Control Line Yes YES/NO [facility]P OFFICE 09/28/2022 12:3 3 PM EDT Edith Oropeza FILEMAKER DEVELOPER POINT OF CARE TEST ORDERABLES Final Result [...] EDT 09/28/2022 12:21 PM EDT Edith Oropeza FILEMAKER DEVELOPER POINT OF CARE TEST ORDERABLES Final Result Performing Organization Address City/[facility] Co de Phone Number [facility] [address] [place] [address] * (ABNORMAL) LIPID PANEL REFLEX (09/23/2022 11:56 AM EDT) Only the most recent of14 resultswithin the time period is included. Cholesterol 149 <200 mg/dL 09/23/2022 8:48 PM EDT [facility] Comment: < 200 Desirable 200 - 239 Borderline High >= 240 High Triglyceride 268(H) <150 mg/dL 09/23/2022 8:48 PM EDT [facility] Comment: < 150 Normal 150 - 199 Borderline High 200 - 499 High >= 500 Very High HDL 29(L) >=40 mg/dL 09/23/2022 8:48 PM EDT [facility] Comment: > 60 Optimal 40 - 60 Acceptable < 40 Low LDL Calculated 76 <100 mg/dL 09/23/2022 8:48 PM EDT [facility] Non-HDL-C Calculated 120 <=129 mg/dL 09/23/2022 8:48 PM EDT [facility] Comment: <130 Desirable 130-159 Above Desirable 160-189 Borderline High 190-219 High >= 220 Very High Fasting Specimen? Yes None 023 8:48 PM EDT [facility] Blood VENOUS BLOOD / Unknown Venipuncture / Unknown 09/23/2022 11:56 AM EDT 09/23/2022 11:57 AM EDT us Sapphire Munguia MD CHEMISTRY ORDERABLES Final Result Performing Organization Address [facility]/ZIP Co de Phone Number [facility] , [place] [address] [facility] [address] [place], [place] [id number] * VITAMIN B12/ FOLIC ACID (09/23/2022 11:56 AM EDT) Only the most recent of2 resultswithin the time period is included. Pathologist [facility] Vitamin B12 431 232 - 1,245 pg/mL 09/23/2022 9:24 PM EDT [facility] Folate >16.00 >=4.50 ng/mL 09/23/2022 9:24 PM EDT [facility] Blood VENOUS BLOOD / Unknown Venipuncture / Unknown 09/23/2022 11:56 AM EDT 09/23/2022 11:57 AM EDT Narrative [facility] - 09/23/2022 9:24 PM EDT Ingestion of joaquin doses of biotin (>5 mg/day) taken within 8 hours of drawing blood sample can interfere with this immunoassay test. us Viral Gross V, DO CHEMISTRY ORDERABLES Final Res ult Performing Organization Address City/[facility] Co de Phone Number [facility] , [address] [place] [phone] * MAGNESIUM LEVEL (09/23/2022 11:56 AM EDT) Only the most recent of4 resultswithin the time period is included. Magnesium 2.3 1.6 - 2.4 mg/dL 09/23/2022 8:49 PM EDT [facility] Blood VENOUS BLOOD / Unknown Venipuncture / Unknown 09/23/2022 11:56 AM EDT 09/23/2022 11:57 AM EDT us Viral Gross V, DO CHEMISTRY ORDERABLES Final Res ult [facility] [address] [facility] , [place] [address] * (ABNORMAL) WOUND CULTURE (STAIN INCLUDED) (08/21/2022 4:23 PM EDT) Only the most recent of2 resultswithin the time period is included. Pathologist [facility] Culture Positive Growth(A) 2022 7:37 AM EDT [...] cocci(A) 08/26/2022 7:37 AM EDT [facility] Drainage ABDOMINAL WALL / Unknown 08/21/2022 [...] us Deepak Garza MD MICROBIOLOGY - [facility] Final Result [facility] [address] [place] [address] , [place] [address] * TX US EVALUATE PSEUDOANEURYSM RIGHT (08/21/2022 9:09 AM [...] and superficial femoral veins appear widely patent. us Sheeba Shah MD IMG VASCULAR ORDERABLES Final Result * EC ECHOCARDIOGRAM 2D M MODE COMPLETE W CONTRAST (08/19/2022 3:33 PM EDT) Pathologist [facility] LV DIASTOLIC PLAX 5.38 cm PYRAMIS Ejection [...] ult * PROCALCITONIN (08/19/2022 5:11 AM EDT) [facility] Procalcitonin 0.09 <=0.49 ng/mL 08/19/2022 6:02 AM EDT [facility] Blood VENOUS BLOOD / Unknown Venipuncture / Unknown 08/19/2022 5:11 AM EDT 08/19/2022 5:29 AM EDT Narrative [facility] - 08/19/2022 6:02 AM EDT [...] Rodriguez DO CHEMISTRY ORDERABLES Final Re sult [facility] [address] [place], [place] [id number] * CT PELVIS W CONTRAST (08/18/2022 6:06 [...] the ordering clinician. us Jessica Wallis MD IM CT ORDERABLES Edited Res ult - Final [...] is a low-density right parotid gland mass [id number] mm in the deep lobe of the [...] of the ordering clinician. Peggy Lama DO IMG CT ORDERABLES Final Resul t * CT [...] sinuses, mastoids, and orbits unremarkable. Procedure Note Dejuan Parker MD - 06/09/2022 CT HEAD WO [...] 0.25 <=4.00 ng/mL 05/27/2022 2:59 PM EDT [facility] Blood VENOUS BLOOD / Unknown Venipuncture / Unknown 05/27/2022 9:07 AM EDT 05/27/2022 9:07 AM EDT Narrative [facility] - 05/27/2022 2:59 PM EDT [facility] [...] Rey DO CHEMISTRY ORDERABLES Final Res ult [facility] [address] [facility] , [place] [address] * XR KNEE RIGHT AP LATERAL AND SUNRISE STANDING (05/19/2022 8:20 AM EST) Narrative Pia Boyd - 05/19/2022 8:20 AM EST Please see physician's note from office encounter for x-ray imaging result us Frederic Rosina FILEMAKER DEVELOPER IMG DIAGNOSTIC IMAGING ORDERAB LES Final Result * XR KNEE LEFT AP LATERAL AND SUNRISE STANDING (04/28/2022 1:10 PM EST) Narrative Pia Boyd - 04/28/2022 1:10 PM EST Please see physician's note from office encounter for x-ray imaging result Frederic Almaguer APRN IMG DIAGNOSTIC IMAGING ORDERAB LES Final Result * IL ARTHROCENTESIS ASPIR&/INJ MAJOR JT/BURSA W/O US (04/28/2022 1:00 PM EST) Narrative [facility] - 04/28/2022 1:00 PM EST Allison Meléndez, RT 04/30/2022 6:41 PM Large Joint Injection/Arthrocentesis: L knee on 04/28/2022 1:00 PM Indications: pain Details: 22 G needle, anterior approach Aspirate: 60 mL yellow Outcome: tolerated well, no immediate complications Consent was given by the patient. Patient was prepped and draped in the usual sterile fashion. Frederic Almaguer APRN PROCEDURE/MINOR SURGICAL ORDER SIOBHAN Final Result [facility] [address] [phone] * XR KNEE LEFT AP LAT INT [...] office of the ordering clinician. us Tameka Carolina FILEMAKER DEVELOPER IMG DIAGNOSTIC IMAGING ORDERA BLES Final Result [...] Fluoroscop y Narrative 01/12/2022 3:[address] [facility] PROCEDURE NOTE Jackie Abdi January 12, 2022 [...] home. Carlos Langston MD Interventional Pain Management [facility] Date: 01/12/2022 us Carlie Connolly FILEMAKER DEVELOPER IMG IR ORDERABLES Final Resu lt * COMPLIANCE PANEL, URINE (01/03/2022 10:15 AM EDT) Pathologist [facility] Medications Expected Tramadol 12/11 7:00 PM EDT [facility] Barbiturates Absent Cutoff 200 ng/mL 01/05/2022 7:00 PM EDT [facility] THC <10 Cutoff 10 ng/mL ng/mL 01/05/2022 7:00 PM EDT [facility] Comment:2-fknckfi-rljxyqvjvb cannabinol; does not distinguish between prescribed and [...] PM EDT [facility] Comment:e.g., Klonopin, Clon opin 7-Aminoclonazepam <25 Cutoff [...] 01/05/2022 7:00 PM EDT [facility] Comment:Metabolite of Fluraz epam Lorazepam <50 Cutoff 50 ng/mL ng/mL 01/05/2022 7:00 PM EDT [facility] Comment:e.g., Ativan Lorazepam Glucuronide <50 Cutoff 50 ng/mL ng/mL 01/05/2022 7:00 PM EDT [facility] Comment:Metabolite of Loraze eduar Midazolam <50 Cutoff 50 ng/mL ng/mL 01/05/2022 7:00 PM EDT [facility] Comment:e.g., Versed alpha-hydroxymidazolam <50 Cutoff 50 ng/mL ng/mL 01/05/2022 7:00 PM EDT [facility] Comment:Metabolite of Versed Oxazepam <50 Cutoff 50 ng/mL ng/mL 01/05/2022 7:00 PM EDT [facility] Comment:e.g., Serax; also Me tabolite of Temazepam, and Nordiazepam Oxazepam Glucuronide <50 Cutoff 50 ng/mL ng/mL 01/05/2022 7:00 PM EDT [facility] Comment:Metabolite of Oxazep am Temazepam <50 Cutoff 50 ng/mL ng/mL 01/05/2022 7:00 PM EDT [facility] Comment:e.g., Restoril; also Metabolite of Diazepam Temazepam Glucuronide <50 Cutoff 50 ng/mL ng/mL 01/05/2022 7:00 PM EDT [facility] Comment:Metabolite of Temaze eduar and Diazepam Triazolam <50 Cutoff 50 ng/mL ng/mL 01/05/2022 7:00 PM EDT [facility] Comment:e.g., Halcion alpha-hydroxytriazolam <50 Cutoff 50 ng/mL ng/mL 01/05/2022 7:00 PM EDT [facility] Comment:Metabolite of Triazo belle Buprenorphine <5 Cutoff 5 ng/mL ng/mL 01/05/2022 7:00 PM EDT [facility] Comment:e.g., Suboxone, Subu alena,Sublocade, Buprenex Buprenorphine Glucuronide <10 Cutoff 10 ng/mL ng/mL 01/05/2022 7:00 PM EDT [facility] Comment:Buprenorphine [place] Norbuprenorphine <5 Cutoff 5 ng/mL ng/mL 01/05/2022 7:00 PM EDT [facility] Comment:Buprenorphine [place] Norbuprenorphine Glucuronide <10 Cutoff 10 ng/mL ng/mL 01/05/2022 7:00 PM EDT [facility] Comment:Buprenorphine [place] Benzoylecgonine <50 Cutoff 50 ng/mL ng/mL 01/05/2022 7:00 PM EDT [facility] Comment:Cocaine Metabolite Fentanyl <1 Cutoff 1 ng/mL ng/mL 01/05/2022 7:00 PM EDT [facility] [facility] Comment:e.g.,Duragesic, Oral et, Actiq, Sublimaze, Innovar, Lazanda Norfentanyl <1 Cutoff 1 ng/mL ng/mL 01/05/2022 7:00 PM EDT [facility] Comment:Metabolite of Fentan yl 6-Monoacetylmorphine (6MAM) <10 Cutoff 10 ng/mL ng/mL 01/05/2022 7:00 PM EDT [facility] Comment:Metabolite of Heroin ; Morphine is expected Methadone <50 Cutoff 50 ng/mL ng/mL 01/05/2022 7:00 PM EDT [facility] Comment:e.g., Dolophine, Met hadose, Amidone EDDP <50 Cutoff 50 ng/mL ng/mL 01/05/2022 7:00 PM EDT [facility] Comment:Methadone Metabolite Carisoprodol <100 Cutoff 100 ng/mL ng/mL 01/05/2022 7:00 PM EDT [facility] Comment:e.g., Soma Meprobamate <100 Cutoff 100 ng/mL ng/mL 01/05/2022 7:00 PM EDT [facility] Comment:e.g., Floweree, Equa nil, Micrainin, Equagesic; Metabolite of Carisoprodol Codeine <50 Cutoff 50 ng/mL ng/mL 01/05/2022 7:00 PM EDT [facility] Comment:e.g., Acetaminophen w/Codeine, Tylenol3 w/ Codeine Codeine Glucuronide <50 Cutoff 50 ng/mL ng/mL 01/05/2022 7:00 PM EDT [facility] Comment:Metabolite of Codein e Meperidine <50 Cutoff 50 ng/mL ng/mL 01/05/2022 7:00 PM EDT [facility] Comment:e.g., Demerol, Pethi dine Normeperidine <50 Cutoff 50 ng/mL ng/mL 01/05/2022 7:00 PM EDT [facility] Comment:Metabolite of Meperi dine Morphine <50 Cutoff 50 ng/mL ng/mL 01/05/2022 7:00 PM EDT [facility] Comment:e.g., MS Contin, Cassy anol; Metabolite of Codeine and Heroin; may reflect poppy seed ingestion Aezuvvch-3-Ljwkfhrzkbq <25 Cutoff 25 ng/mL ng/mL 01/05/2022 7:00 PM EDT [facility] Comment:Metabolite of Morphi ne. Bjgtdief-7-Glwuajcfpiv <25 Cutoff 25 ng/mL ng/mL 01/05/2022 7:00 PM EDT [facility] Comment:Metabolite of Morphi ne. Naloxone <25 Cutoff 25 ng/mL ng/mL 01/05/2022 7:00 PM EDT [facility] Comment:e.g., Narcan, Evzio Hydrocodone <50 Cutoff 50 ng/mL ng/mL 01/05/2022 7:00 PM EDT [facility] Comment:e.g., Lorcet, Lortab , Vicodin, Mentone; Minor Metabolite of Codeine Dihydrocodeine <50 Cutoff 50 ng/mL ng/mL 01/05/2022 7:00 PM EDT [facility] Comment:e.g., Didrate, Parzo ne, Parlor, Synalgos; Metabolite of Hydrocodone Norhydrocodone <50 Cutoff 50 ng/mL ng/mL 01/05/2022 7:00 PM EDT [facility] Comment:Metabolite of Hydroc odone Hydromorphone <50 Cutoff 50 ng/mL ng/mL 01/05/2022 7:00 PM EDT [facility] Comment:e.g., Dilaudid; also Metabolite of Hydrocodone and Minor Metabolite of Morphine Hydromorphone Glucuronide <50 Cutoff 50 ng/mL ng/mL 01/05/2022 7:00 PM EDT [facility] Comment:Metabolite of Hydrom orphone Oxycodone <50 Cutoff 50 ng/mL ng/mL 01/05/2022 7:00 PM EDT [facility] Comment:e.g., Oxycontin, Per cocet, Endocet, Percodan, Roxicet Noroxycodone <50 Cutoff 50 ng/mL ng/mL 01/05/2022 7:00 PM EDT [facility] Comment:Metabolite of Oxycod one Oxymorphone <50 Cutoff 50 ng/mL ng/mL 01/05/2022 7:00 PM EDT [facility] Comment:e.g., Opana; Metabol ite of Oxycodone Oxymorphone Glucuronide <50 Cutoff 5 0 ng/mL ng/mL 01/05/2022 7:00 PM EDT [facility] Comment:Metabolite of Oxycod one Noroxymorphone <50 Cutoff 50 ng/mL ng/mL 01/05/2022 7:00 PM EDT [facility] Comment:Metabolite of Oxycod one, and Oxymorphone, Noroxycodone Metabolite Tramadol <50 Cutoff 50 ng/mL ng/mL 01/05/2022 7:00 PM EDT [facility] Comment:e.g., Ultram, ConZip T-Xtmblpaoi-kix-Tramadol <50 Cutoff 50 ng/mL ng/mL 01/05/2022 7:00 PM EDT [facility] Comment:Metabolite of Tramad ol Tapentadol <50 Cutoff 50 ng/mL ng/mL 01/05/2022 7:00 PM EDT [facility] Comment:Nucynta Tapentadol-Glucuronide <50 Cutoff 50 ng/mL ng/mL 01/05/2022 7:00 PM EDT [facility] Comment:Metabolite of Tapent adol Urine Creatinine 135.9 mg/dL 01/06/20 7:00 PM EDT [facility] Comment: Greater than 20: Consistent with valid sample Greater than 2 but less than 20: Possible dilution Less than 2: Questionable valid sample Urine URINE SPECIMEN COLLECTION / Unknown 01/03/2022 10:15 AM EDT 01/03/2022 10:15 AM EDT Narrative [facility] - 01/05/2022 7:00 PM EDT The absence of expected drug(s), and/or drug metabolite(s), may indicate non-compliance, diluted or adulterated urine, poor drug absorption, concentration of drug below the cut-off, timing of specimen collection relative to administration of drug, or limitations of testing. If results do not fit clinical expectations, please reach out to the Toxicology department at [phone]. Specimens are held for 7 days. This test was developed, and its performance characteristics determined by [facility] [employer] ([facility]). It has not been cleared or approved by the FDA. This test is used for clinical purposes. It should not be regarded as investigational or for research. [facility] is certified under the Clinical Laboratory Improvement Amendments (CLIA) as qualified to perform high complexity clinical laboratory testing. Drea Acuna APRN URINE ORDERABLES Final Result [facility] [address] [facility] , [address] [place] [id number] * MRI LUMBAR SPINE WO CONTRAST (12/05/2021 [...] AM CLINICAL HISTORY: M54.41-Lumbago with sciatica, right zjed-HKI-59-CM G89.29-Other chronic svkg-BRD-66-CM. COMPARISON: 01/04/2021 PROCEDURE COMMENTS: Multiplanar multiecho MR [...] AM CLINICAL HISTORY: M54.41-Lumbago with sciatica, right lkzw-RQP-96-CM G89.29-Other chronic rhdy-TQD-54-CM. COMPARISON: 01/04/2021 PROCEDURE COMMENTS: Multiplanar multiecho MR [...] of the ordering clinician. Drea Acuna APRN [facility] MRI ORDERABLES Final Result * XR THORACIC [...] please contactthe office of the ordering clinician. Lawanda Dutton APRN IMG DIAGNOSTIC IMAGING ORDE DON Final Result * XR LUMBAR SPINE AP [...] of the ordering clinician. us Lawanda Dutton FILEMAKER DEVELOPER IMG DIAGNOSTIC IMAGING DAGOBERTO OCHOA Final Result * XR FOOT RIGHT AP [...] No acute osseous findings. - Eloy Carter [facility] IMG DIAGNOSTIC IMAGING ORDERABLES Final Result * IR 2 LEVEL BILATERAL MEDIAL BRANCH BLOCK CERV THOR (07/08/2021 2:47 PM EDT) Anatomical Region Laterality Modality Interventional R adiology Narrative 07/08/2021 5:[address] [facility] PROCEDURE NOTE Jackie Abdi July 08, 2021 [...] @VITALS@ Carlos Langston MD Interventional Pain Management [facility] Date: 07/08/2021 us Drea Acuna APRN IMG IR ORDERABLES Final Result * IR SACROILIAC JOINT INJECTION (06/24/2021 2:10 PM EDT) Anatomical Region Laterality Modality Interventional R adiology Narrative 06/24/2021 5:[address] [facility] PROCEDURE NOTE Jackie Abdi June 24, 2021 [...] @VITALS@ Carlos Langston MD Interventional Pain Management [facility] [place] Date: 06/24/2021 Drea Acuna APRN IMG IR ORDERABLES Final Result * (ABNORMAL) FRUCTOSAMINE (06/15/2021 7:47 AM EDT) Only the most recent of9 resultswithin the time period is included. Fructosamine 325(H) 205 - 285 mcmol/L 06/15/2021 6:33 PM EDT [facility] Blood Venipuncture / Unknown 06/15/2021 7:47 AM EDT 06/15/2021 7:47 AM EDT Narrative [facility] - 06/15/2021 6:33 PM EDT Serum protein level variations may alter fructosamine results. Agustin Graves MD CHEMISTRY ORDERABLES Final Resu lt Performing Organization Address [facility] Co de Phone Number [facility] [address] [place] [address] , [place] [address] * C-REACTIVE PROTEIN (06/15/2021 7:47 AM EDT) Only the most recent of11 resultswithin the time period is included. Pathologist [facility] CRP <3.00 <=5.00 mg/L 06/15/2021 3:38 PM EDT [facility] Blood Venipuncture / Unknown 06/15/2021 7:47 AM EDT 06/15/2021 7:47 AM EDT Agustin Graves MD CHEMISTRY ORDERABLES Final Resu lt Performing Organization Address [facility] Co de Phone Number [facility] [employer] [address] , [place] [address] * (ABNORMAL) VITAMIN B12 LEVEL (06/15/2021 7:47 AM EDT) Only the most recent of14 resultswithin the time period is included. Vitamin B12 >1,600(H) 232-1,245 pg/mL 06/15/2021 6:33 PM EDT [facility] Blood Venipuncture / Unknown 06/15/2021 7:47 AM EDT 06/15/2021 7:47 AM EDT Narrative [facility] - 06/15/2021 6:33 PM EDT Ingestion of joaquin doses of biotin (>5 mg/day) taken within 8 hours of drawing blood sample can interfere with this immunoassay test. Agustin Graves MD CHEMISTRY ORDERABLES Final Resu lt Performing Organization Address [facility] Co de Phone Number [address] , [place] [address] * C DIFF TOXIN DNA (05/20/2021 7:44 AM EST) Pathologist [facility] C Diff Toxin DNA Negative Negative 05/20/2021 3:39 PM EST [facility] Stool 05/20/2021 7:44 AM EST 05/20/2021 7:44 AM EST Narrative [facility] - 05/20/2021 3:39 PM EST Toxin producing [...] assay utilizes real time PCR on the [employer] GeneXpert Infinity, and its performance has been verified by the [facility]. A negative result does not rule out the presence of the Clostridium difficile in concentrations below the limit of detection for the assay. Ruthy Montaño MD MICROBIOLOGY - GENERAL ORDERA BLES Final Result Performing Organization Address [facility] Co de Phone Number [address] , [place] [address] * SHIGA TOXIN (05/20/2021 7:44 AM EST) Pathologist [facility] Shiga Toxin Shiga toxins (produced by E. coli) not detected. Shiga toxins (produced by E. coli) not detected. 05/20/2021 8:03 PM EST [facility] Stool SPECIMEN FROM RECTUM / Unknown 05/20/2021 7:44 AM EST 05/20/2021 7:44 AM EST Ruthy Montaño MD MICROBIOLOGY - GENERAL ORDERA BLES Final Result Performing Organization Address [facility] Co de Phone Number [facility] [place] [address] * STOOL CULTURE (NO STAIN) (05/20/2021 7:44 AM EST) Pathologist [facility] Culture No growth of enteric pathogens, including Salmonella, Shigella, Campylobacter, Vibrio, Yersinia, Aeromonas, Plesiomonas, or E. coli O157. 05/23/2021 1:12 PM EDT [facility] [employer] [facility] Stool SPECIMEN FROM RECTUM / Unknown 05/20/2021 7:44 AM EST 05/20/2021 7:44 AM EST Ruthy Motnaño MD MICROBIOLOGY - GENERAL ORDERA BLES Final Result Performing Organization Address [facility] de Phone Number [facility] [place] [email or web address] [address] * (ABNORMAL) FECAL WHITE BLOOD CELLS (05/20/2021 7:44 AM EST) Pathologist [facility] Fecal WBCs Positive(A ) Negative 05/20/2021 5:42 PM EST [facility] Stool COLON STRUCTURE / Unknown 05/20/2021 7:44 AM EST 05/20/2021 7:44 AM EST Narrative [facility] - 05/20/2021 5:42 PM EST POSITIVE for elevated levels of lactoferrin from white blood cells. Ruthy Montaño MD MICROBIOLOGY - GENERAL ORDERA BLES Final Result Performing Organization Address [facility] Co de Phone Number [facility] [address] [place] [address] * MRI CERVICAL SPINE WO CONTRAST (04/29/2021 [...] but incompletely visualized/assessed right parotid gland mass. Zaqqt-im-ngpsn analysis: C2-3: Left uncovertebral hypertrophy with bilateral [...] Redemonstrated but incompletelyvisualized/assessed right parotid gland mass. Qdfdl-sp-xgnzf analysis: C2-3: Left uncovertebral hypertrophy with bilateral [...] and foraminal stenosis as described. - Drea Carrollbrian HANNAH IMG MRI ORDERABLES Final Result * VA US CAROTID DUPLEX BILATERAL (04/22/2021 3:42 PM [...] R adiology Narrative 04/05/2021 11:[address] [facility] PROCEDURE NOTE Jackie Abdi April 05, 2021 [...] @VITALS@ Carlos Langston MD Interventional Pain Management [facility] Date: 04/05/2021 us Holley Torres FILEMAKER DEVELOPER IMG IR ORDERABLES Final Re sult * URIC ACID (03/09/2021 8:32 AM EST) Only the most recent of3 resultswithin the time period is included. Uric Acid 4.9 3.4 - 7.0 mg/dL 03/09/2021 2:30 PM EST [email or web address] Blood Venipuncture / Unknown 03/09/2021 8:32 AM EST 03/09/2021 8:32 AM EST Agustin Graves MD CHEMISTRY ORDERABLES Final Resu lt [facility] [address] [facility] , [place] [address] * (ABNORMAL) IRIS DIABETIC RETINOPATHY EXAM (02/14/2021 1:39 PM EST) Pathologist [facility] Retinopathy Exam Severity ALERT(A) [facility] Right Diabetic Retinopathy Mild(A) [facility] Right Macular Edema Positive [facility] Right Other Retina None [facility] Right Eye Image Quality Gradable Image [facility] Left Diabetic Retinopathy Mild(A) [facility] Left Macular Edema None [facility] Left Other Retina None [facility] Left Eye Image Quality Gradable Image [facility] 02/14/2021 1:39 PM EST 02/14/2021 1:39 PM EST Impressions [facility] - 02/14/2021 7:24 PM EST Retinal Study Result for yoli HANEY 65 y/o, M (: 1955, ) presented to [facility] on 02-14-2021 for a retinal imaging study of the left and right eyes. Based on the findings of the study, the following is recommended for JACKIE ABDI Next Available Appointment: Refer patient to Ophthalmology, as soon as possible. Interpreting Provider's Comments: No comments provided Diagnoses Present: E119 - Type 2 diabetes mellitus without complications [id number] - Diabetes mellitus due to underlying condition with mild nonproliferative diabetic retinopathy without macular edema Left Eye [id number] - Diabetes mellitus due to underlying condition with mild nonproliferative diabetic retinopathy with macular edema Right Eye Right eye findings: Diabetic Retinopathy: Mild Macular Edema: Positive Left eye findings: Diabetic Retinopathy: Mild Negative for Macular Edema This result was electronically signed by Ja Rios, JARREDI: [id number], Taxonomy: [id number] on 02-15-2021 12:24 UT. NOTE: Any pathology noted on this diabetic retinal evaluation should be confirmed by an appropriate ophthalmic examination. us Oswaldo Harry MD OPHTHALMOLOGY SERVICES O LENCHO Final Result [facility] [place] [address] * IR LUMBAR/SACRAL JASON WITH GUIDANCE (02/08/2021 11:29 AM EST) Anatomical Region Laterality Modality Interventional R adiology Narrative 02/08/2021 12:[address] [facility] PROCEDURE NOTE Jackie Abdi February 08, 2021 [...] @VITALS@ Carlos Langston MD Interventional Pain Management [facility] Date: 02/08/2021 us Carlos Langston MD IMG IR ORDERABLES Final R esult * TESTOSTERONE LEVEL TOTAL (06/16/2020 8:02 AM EDT) Only the most recent of3 resultswithin the time period is included. Testosterone Lvl 361 300 - 720 ng/dL 06/16/2020 2:34 PM EDT [facility] Blood Venipuncture / Unknown 06/16/2020 8:02 AM EDT 06/16/2020 8:02 AM EDT Narrative [facility] - 06/16/2020 2:34 PM EDT Values less than 12 ng/dL are not reliable as the intermediate precision coefficient of variation is > 20%. Ingestion of joaquin doses of biotin (>5 mg/day) taken within 8 hours of drawing blood sample can interfere with this immunoassay test. us Viral Gross V, DO CHEMISTRY ORDERABLES Final Res ult [facility] [address] [facility] , [place] [address] * C-PEPTIDE (01/16/2020 7:49 AM EST) Only the most recent of5 resultswithin the time period is included. C-Peptide 5.16 0.78 - 5.19 ng/mL 01/16/2020 3:47 PM EST [facility] Blood Venipuncture / Unknown 01/16/2020 7:49 AM EST 01/16/2020 7:49 AM EST Agustin Graves MD CHEMISTRY ORDERABLES Final Resu lt [facility], [address], [place] [address] * US GUIDED PAROTID BIOPSY-FNA (01/13/2020 1:00 PM EST) Anatomical Region Laterality Modality Head Ultrasound 01/13/2020 1:00 PM EST Impressions 01/13/2020 3:52 PM EST Successful, uncomplicated ultrasound-guided parotid FNA biopsy procedure. Narrative 01/13/2020 3:52 PM EST US GUIDED PAROTID BIOPSY-FNA 01/13/2020 1:00 PM HISTORY: K11.8-Other diseases of salivary jtfsgq-IPY-25-CM. 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 Approximate 15 images and multiple cine loops recorded during the biopsy procedure. No postprocedural complication. The patient was discharged home in stable condition with specific postbiopsy care instructions. Procedure Note Jasper Montaño DO - 01/13/2020 US GUIDED PAROTID BIOPSY-FNA 01/13/2020 1:00 PM HISTORY: K11.8-Other diseases of salivary nghlxu-WCK-89-CM. 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 Lxyrhixgjxx45 images and multiple cine loops recorded during the biopsy procedure. No postprocedural complication. The patient was discharged home in stablecondition with specific postbiopsy care instructions. IMPRESSION: Successful, uncomplicated ultrasound-guided parotid FNA biopsy procedure. 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 01/14/2020 11:17 AM EST [facility] at 1117 EST EMBEDDED IMAGES 01/14/2020 11:17 AM EST [facility] MICROSCOPIC DESCRIPTION Microscopic examination is performed and the findings corroborate the diagnosis 01/14/2020 11:17 AM [facility] Gross Description FNA Parotid, Right Parotid, Rec'd 6 slides and cytolyt.(CB) Evaluation Episode #1: Adequate / DT 01/14/2020 11:17 AM EST [facility] Aspirate PAROTID GLAND STRUCTURE / Unknown 01/13/2020 11:52 AM EST 01/13/2020 1:45 PM EST Lyle Solo MD CYTOLOGY ORDERABLES Final Res ult Performing Organization Address [facility] Co de Phone Number [facility] [address] [place] [address] * CORONAVIRUS 2019 (01/09/2020 1:00 PM EDT) Only the most recent of2 resultswithin the time period is included. CORONAVIRUS [id number] Not Detected Not Detected 01/09/2020 10:32 PM EDT [facility] Comment:Caution should be ex ercised when interpreting [...] EDT 01/09/2020 1:02 PM EDT Narrative [facility] - 01/09/2020 10:32 PM EDT This test is a nucleic acid amplification test intended for the qualitative detection of nucleic acid from the SARS-CoV-2 in upper respiratory samples collected from individuals suspected of COVID-19. Test is performed on the [employer]ane Prep platform under the FDA's Emergency Use Authorization (EUA). [facility] Provider Fact Sheet: https://www.fda.gov/media/430476/download [facility] Patient Fact Sheet: https://www.fda.gov/media/927728/download us Lyle Solo MD MICROBIOLOGY - GENERAL ORDERA BLES Final Result [facility] [address] [facility], [place] [address] * (ABNORMAL) POCT BLADDER SCAN (12/15/2019 10:09 AM EDT) Only the most recent of7 resultswithin the time period is included. Urine Volume (Preservative) 315cc SEP OFFICE 12/15/2019 10:0 9 AM EDT us Alva Zelaya PA-C POINT OF CARE IMAGING Amie l Result SEP OFFICE * (ABNORMAL) SEP URINALYSIS POC (12/15/2019 9:41 AM EDT) Only the most recent of3 resultswithin the time period is included. UA Color POC Yellow Color 12/15/2019 9:43 AM EDT [facility] UA Appear POC Clear Clear 12/15/2019 9:43 AM EDT [facility] UA Gluc POC 100(A) Negative mg/dL 12/15/2019 9:43 AM EDT [facility] UA Bili POC Negative Negative 12/15/2019 9:43 AM EDT [facility] UA Ketones POC Negative Negative mg/dL 12/15/2019 9:43 AM EDT [facility] UA SG POC 1.020 1.001 - 1.035 no units 12/15/2019 9:43 AM EDT [facility] UA Blood POC Moderate(A) Negative 12/15/2019 9:43 AM EDT [facility] UA pH POC 6.0 5.0 - 8.0 pH 12/15/2019 9:43 AM EDT [facility] UA Protein POC Negative Negative mg/dL 12/15/2019 9:43 AM EDT [facility] UA Urobilinogen POC 0.2 0.2, 1.0 12/15/2019 9:43 AM EDT [facility]A Nitrite POC Negative Negative 12/15/2019 9:43 AM EDT [facility] UA Leuk Est POC Trace(A) Negative 0 9:43 AM EDT [facility] Urine STRUCTURE OF URINARY TRACT PROPER / Unknown 12/15/2019 9:41 AM EDT 12/15/2019 9:43 AM EDT us Alva Zelaya PA-C POINT OF CARE TEST ORDERAB LES Final Result [facility] [address] [place] [address] * CT CERVICAL SPINE WO CONTRAST (12/02/2019 [...] uncovertebral hypertrophy, mild on the right and edhm-fm-rqvbmxqs on the left at C5-6 due to uncovertebral hypertrophy, and mild on the right and moderate on the left at C6-7 due to uncovertebral hypertrophy. There is lwkx-qq-seojzbqi atherosclerotic calcification regional to both common carotid [...] to uncovertebral hypertrophy, mild on theright and zsxf-zh-khehqtda on the left at C5-6 due to uncovertebral hypertrophy,and mild on the right and moderate on the left at C6-7 due to uncovertebral hypertrophy. There is emcm-ai-gtkiiywy atherosclerotic calcification regional to bothcommon carotid artery [...] present. The central supraclinoid vasculature appearspatent. - Alma Barba MD IMG CT ORDERABLE S Final Result * EXTRA MINT GREEN LI (12/01/2019 4:25 PM EDT) Only the most recent of2 resultswithin the time period is included. Blood VENOUS BLOOD / Unknown Venipuncture / Unknown 12/01/2019 4:25 PM EDT 12/01/2019 4:37 PM EDT Alma Barba MD CHEMISTRY ORDERA BLES Final Result Performing Organization Address [facility] Co de Phone Number [facility] [address] [place] [address] * EXTRA LAVENDER (12/01/2019 4:25 PM EDT) Blood VENOUS BLOOD / Unknown Venipuncture / Unknown 12/01/2019 4:25 PM EDT 12/01/2019 4:37 PM EDT Alma Barba MD HEMATOLOGY ORDER SIOBHAN Final Result Performing Organization Address [facility] Co de Phone Number [facility] [address] [place] [address] * EXTRA LIGHT BLUE (12/01/2019 4:25 PM EDT) Blood VENOUS BLOOD / Unknown Venipuncture / Unknown 12/01/2019 4:25 PM EDT 12/01/2019 4:37 PM EDT Alma Barba MD HEMATOLOGY ORDER SIOBHAN Final Result Performing Organization Address [facility] Co de Phone Number [facility] [address] [place] [address] * SCANNED RHYTHM STRIPS (11/24/2019 4:29 PM EDT) Only the most recent of12 resultswithin the time period is included. Anatomical Region Laterality Modality Other 11/24/2019 4:29 PM EDT us Unknown Unknown IMG ECG ORDERABLES Final Result * PATHOLOGY TISSUE REQUEST (11/20/2019 3:18 PM EDT) Only the most recent of3 resultswithin the time period is included. CASE REPORT Surgical Pathology Case: [id number] Authorizing Provider: Ina Overton MD Collected: 11/20/2019 [id number] Ordering Location: [facility] Received: 11/20/2019 1857 Pathologist: Pamela Harmon MD Specimen: Prostate, *prostate chips* 11/26/2019 7:21 AM EDT [facility] FINAL DIAGNOSIS Prostate, 9 gram, transurethral resection: - Nodular prostatic hyperplasia. 11/26/2019 7:21 AM EDT [facility] at 0721 EDT GROSS DESCRIPTION Received in formalin labeled with the patient's name and prostate chips is a 9 g, 8.6 x 4.7 x 0.7 cm aggregate of baer-granado to white-granado tissue which is entirely submitted in eight cassettes. /TE 11/26/2019 7:21 AM EDT [facility] MICROSCOPIC DESCRIPTION Microscopic examination is performed and the findings corroborate the diagnosis. 11/26/2019 7:21 AM EDT [facility] EMBEDDED IMAGES 11/26/2019 7:21 AM EDT [facility] Tissue PROSTATE / Unknown 0 3:18 PM EDT 11/20/2019 6:52 PM EDT us Ina Overton MD PATHOLOGY ORDERABLES Final Res ult [facility] [address] [place] [address] [facility] [address] [place] [address] * INTRAOP AIRWAY PLACEMENT (11/20/2019 2:43 PM EDT) Narrative [facility] - 11/20/2019 2:43 PM EDT Tod Buckley CRNA 11/20/2019 2:44 PM Intraop Airway Placement: Induction type: IV Laryngoscope blade: Bethea Airway type: ETT- cuffed Device size: 7.5mm Secured by: Tape Placement verified: Auscultation and End tidal CO2 Insertion attempts: 1 Title: [employer] SUPERVISOR us Luis A oRdney MD [place] ANESTHESIA Final Result [facility] [address] [place] [address] * XR SHOULDER BILATERAL 3 VIEWS (09/03/2019 2:04 PM EDT) Anatomical Region Laterality Modality Shoulder Radiographic Kimberly ging 09/03/2019 2:04 PM EDT Impressions 09/03/2019 2:35 PM EDT No significant arthritic process or acute bone or soft tissue abnormality. - Narrative 09/03/2019 2:35 PM EDT XR SHOULDER BILATERAL 3 VIEWS, 09/03/2019 2:04 PM CLINICAL HISTORY: M25.511-Pain in right dlmgzmpa-IVD-93-CM M25.512-Pain in left vyceldyt-QSA-48-CM COMPARISON: None. PROCEDURE COMMENTS: Bilateral imaging per the ordered protocol. FINDINGS: Right: Joint spaces are maintained. No erosions or periostitis. No significant bony or soft tissue finding. Left: Joint spaces are maintained. No erosions or periostitis. No significant bony or soft tissue finding. Procedure Note Nikunj Vidales MD - 09/03/2019 XR SHOULDER BILATERAL 3 VIEWS, 09/03/2019 2:04 PM CLINICAL HISTORY: M25.511-Pain in right zzcyitnh-CBB-50-CM M25.512-Pain in left nkorahul-UXH-63-CM COMPARISON: None. PROCEDURE COMMENTS: Bilateral imaging per the ordered protocol. FINDINGS: Right: Joint spaces are maintained. No erosions or periostitis. No significant bony or soft tissue finding. Left: Joint spaces are maintained. No erosions or periostitis. No significant bony or soft tissue finding. IMPRESSION: No significant arthritic process or acute bone or soft tissue abnormality. - us Peggy Locke MD IMG DIAGNOSTIC IMAGING O RDERABLES Final Result * APOLIPOPROTEIN B-REF LAB (04/16/2019 10:36 AM EST) Only the most recent of4 resultswithin the time period is included. Apolipoprotein B 70 55 - 140 mg/dL 04/17/2019 12:25 PM EST [facility] Comment: REFERENCE INTERVAL: Apolipoprotein B Access complete set of age- and/or gender-specific reference intervals for this test in the [employer] [facility] Test Directory ([facility]). Performed by [facility] [employer] [place], [address] [place] [address] [email or web address], Lencho Keys MD, Lab. Director Blood Venipuncture / Unknown 04/16/2019 10:36 AM EST 04/16/2019 10:36 AM EST Agustin Graves MD CHEMISTRY ORDERABLES Final Resu lt Performing Organization Address City/[facility]/ZIP Co de Phone Number [facility] [address] [place] [address] * CREATINE KINASE (01/25/2019 11:15 AM EST) CK 138 39 - 308 IU/L 01/25/2019 3:09 PM EST [facility] Blood VENOUS BLOOD / Unknown Venipuncture / Unknown 01/25/2019 11:15 AM EST 01/25/2019 11:15 AM EST Vernon Salinas MD CHEMISTRY ORDERABLES Fi nal Result Performing Organization Address City/[facility]/ZIP Co de Phone Number [facility] [address] [facility] , [place] [address] * XR SHOULDER LEFT 4 VIEWS (01/25/2019 [...] 11:12 AM CLINICAL HISTORY: M25.512-Pain in left vqvyxiec-XYV-15-CM G89.29-Other chronic ubwl-XBN-57-CM COMPARISON: Chest radiograph 09/20/2017 PROCEDURE COMMENTS: Routine views. FINDINGS: No acute fracture or dislocation. Mild AC joint degenerative changes. Type III acromion. Transverse lucency through undersurface hook is favored to be chronic. Broken upper sternotomy wires are evident. Procedure Note Alfredo Roque MD - 01/25/2019 XR SHOULDER LEFT 4 VIEWS, 01/25/2019 11:12 AM CLINICAL HISTORY: M25.512-Pain in left rlgxrafn-SRH-95-CM G89.29-Other chronic rkje-MCB-98-CM COMPARISON: Chest radiograph 09/20/2017 PROCEDURE COMMENTS: Routine views. FINDINGS: No acute fracture or dislocation. Mild AC joint degenerative changes. TypeIII acromion. Transverse lucency through undersurface hook is favored to bechronic. Broken upper sternotomy wires are evident. IMPRESSION: 1. No acute fracture. 2. Mild AC joint degenerative changes. 3. Type III acromion, which may predispose to impingement. - Vernon Salinas MD IM DIAGNOSTIC IMAGING ORDERABLES Final Result * PROSTATE SPECIFIC ANTIGEN (TUMOR MARKER) (11/26/2018 4:59 PM EDT) Only the most recent of2 resultswithin the time period is included. Total Psa 0.18 <=4.00 ng/mL 11/26/2018 9:36 PM EDT [facility] Blood Venipuncture / Unknown 11/26/2018 4:59 PM EDT 11/26/2018 4:59 PM EDT Narrative [facility] - 11/26/2018 9:36 PM EDT Prostate cancer [...] can interfere with this immunoassay test. us Alva Zelaya PA-C CHEMISTRY ORDERABLES Final Result [facility] [address] [facility] , [address] [place], [place] [id number] * (ABNORMAL) URINE CULTURE (NO STAIN) (10/25/2018 4:26 PM EDT) Only the most recent of5 resultswithin the time period is included. Culture Positive Growth(A) 2018 10:18 AM EDT [facility] Culture >[id number] CFU/mL Staphylococcus epidermidis SUSCEPTIBI LITY RESULT 10/28/2018 10:18 AM EDT [facility] Urine URINE SPECIMEN COLLECTION, CLEAN CATCH / [...] should also not be used alone. us Dejuan Rosario FILEMAKER DEVELOPER MICROBIOLOGY - GENERAL ORDER SIOBHAN Final Result [facility] [address] [facility] , [place] [address] * IRIS DIABETIC RETINOPATHY EXAM (10/14/2018 5:11 PM EDT) [facility] Retinopathy Exam Severity NORMAL [facility] Right Diabetic Retinopathy None SE LAB Right Macular Edema None [facility] Right Other Retina None [facility] Right Eye Image Quality Gradable Image [facility] Left Diabetic Retinopathy None [facility] Left Macular Edema None [facility] Left Other Retina None [facility] Left Eye Image Quality Gradable Image [facility] 10/14/2018 5:11 PM EDT 10/14/2018 5:11 PM EDT Impressions [facility] - 10/14/2018 9:57 PM EDT Retinal Study Result for TRINIDADJACKIE JACKIE, a 62 y/o, M (: 1955, ) presented to [facility] on 10-14-2018 for a retinal imaging study of the left and right eyes. Based on the findings of the study, the following is recommended for FISHDARLING JACKIE Normal Study: Return for follow up exam in 12 months or next calendar year. Interpreting Provider's Comments: No comments provided Diagnoses Present: E11.9 - Type 2 diabetes mellitus without complications Right Eye Findings: Normal Result. Negative for Diabetic Retinopathy. Left Eye Findings: Normal Result. Negative for Diabetic Retinopathy. This result was electronically signed by Ja Rios MD, , Taxonomy: [id number] on 10-15-2018 01:57:54 [facility] time. NOTE: Any pathology noted on this diabetic retinal evaluation should be confirmed by an appropriate ophthalmic examination. [facility] OPHTHALMOLOGY SERVICES ORDERABL ES Final Result Performing Organization Address [facility] de Phone Number [facility] [address] [place] [address] * POCT MICROALBUMIN (10/14/2018 4:39 PM EDT) Only the most recent of6 resultswithin the time period is included. Albumin, Ur 20 <=20 MG/L [facility] Lot Number [id number] SEP OFFICE Expiration Date 03/11/2019 SEP OFFICE SeriAl # SEP OFFICE Urine 10/14/2018 4:39 PM EDT [place] DO POINT OF CARE TEST ORDERABLES F inal Result Performing Organization Address [facility] de Phone Number SEP OFFICE * GMED EGD (09/20/2018 8:15 AM EDT) 09/20/2018 8:15 AM EDT Impressions [facility] - 09/20/2018 8:39 AM EDT Normal [...] ORDERABLES Fi nal Result Performing Organization Address [facility] Co de Phone Number [facility] [address] [place] [address] * INTRAOP AIRWAY PLACEMENT (09/20/2018 7:58 AM EDT) Narrative [facility] - 09/20/2018 7:58 AM EDT Jessica Epps CRNA 09/20/2018 7:58 AM Intraop Airway Placement: Airway type: Nasal cannula salter Procedure Note Jessica Epps CRNA - 09/20/2018 7:58 AM EDT Intraop Airway Placement: Airway type: Nasal cannula salter Jessica Fair CRNA [place] ANESTHESIA Final Result Performing Organization Address City/[facility]/ZIP Co de Phone Number [facility] [address] [place] [address] * GLUTAMIC ACID DECARBOXYLASE AB -REF LAB (07/29/2018 12:43 PM EDT) HUGH Ab <5.0 0.0 - 5.0 IU/mL 07/31/2018 8:21 PM EDT [facility] Comment: INTERPRETIVE INFORMATION: Glutamic Acid Decarboxylase Antibody A value greater than 5.0 IU/mL is considered positive for Glutamic Acid Decarboxylase Antibody (HUGH Ab). This assay is intended for the semi-quantitative determination of the HUGH Ab in human serum. Results should be interpreted within the context of clinical symptoms. Performed by [facility] [employer] [place], [address] [place] [address] [email or web address], Lencho Keys MD, Lab. Director Blood Venipuncture / Unknown 07/29/2018 12:43 PM EDT 07/29/2018 12:43 PM EDT Agustin Graves MD CHEMISTRY ORDERABLES Final Resu lt Performing Organization Address [facility] de Phone Number [facility] [address] [place] [address] * (ABNORMAL) LIPOPROTEIN (A)-REF LAB (07/29/2018 12:43 PM EDT) Lipo (a) 111(H) <=29 mg/dL 07/31/2018 6:36 AM EDT [facility] Comment: Performed by [facility] [employer] [place], [address] [place] [address] [email or web address], Lencho Keys MD, Lab. Director Blood Venipuncture / Unknown 07/29/2018 12:43 PM EDT 07/29/2018 12:43 PM EDT Agustin Graves MD CHEMISTRY ORDERABLES Final Resu lt Performing Organization Address [facility]/ZIP Co de Phone Number [facility] [address] [place] [address] * ADRENOCORTICOTROPIC HORMONE -REF LAB (07/29/2018 12:43 PM EDT) ACTH 12 7 - 69 pg/mL 07/31/2018 11:03 AM EDT [facility] Comment: INTERPRETIVE INFORMATION: Adrenocorticotropic Hormone Some types of synthetic ACTH are not detected by this assay. Access complete set of age- and/or gender-specific reference intervals for this test in the [employer] Test Directory ([facility]). Performed by [facility] [employer] [place], [address] [place] [id number] [email or web address], Lencho Keys MD, Lab. Director Blood Venipuncture / Unknown 07/29/2018 12:43 PM EDT 07/29/2018 12:43 PM EDT Agustin Graves MD CHEMISTRY ORDERABLES Final Resu lt Performing Organization Address [facility] de Phone Number [facility] [address] [place] [address] * LACTIC ACID (07/29/2018 12:43 PM EDT) Only the most recent of2 resultswithin the time period is included. Lactic Acid 1.5 0.5 - 1.9 mmol/L 07/29/2018 1:00 PM EDT [facility] Blood Venipuncture / Unknown 07/29/2018 12:43 PM EDT 07/29/2018 12:43 PM EDT Agustin Graves MD CHEMISTRY ORDERABLES Final Resu lt Performing Organization Address City/[facility]/ZIP Co de Phone Number [facility] [address] [place] [address] * CORTISOL (07/29/2018 12:43 PM EDT) [facility] Signature Cortisol 7.69 mcg/dL 07/29/2018 5:4 4 PM EDT [facility] [employer] [facility] Blood Venipuncture / Unknown 07/29/2018 12:43 PM EDT 07/29/2018 12:43 PM EDT Narrative [facility] [employer] [facility] - 07/29/2018 5:44 PM EDT Normals: Mornin.2 - 19.4 mcg/dL Evenin.3 - 11.9 mcg/dL Ingestion of joaquin doses of biotin (>5 mg/day) taken within 8 hours of drawing blood sample can interfere with this immunoassay test. Agustin Graves MD CHEMISTRY ORDERABLES Final Resu lt Performing Organization Address [facility] Co de Phone Number [facility] [email or web address], [place] [address] * INTRAOP AIRWAY PLACEMENT (07/17/2018 10:17 AM EDT) Narrative [facility] - 07/17/2018 10:17 AM EDT Lis Pearson CRNA 07/17/2018 10:17 AM Intraop Airway Placement: Date/Time: 07/17/2018 10:00 AM Airway type: Nasal cannula salter Procedure Note Lis Pearson CRNA - 07/17/2018 10:17 AM EDT Intraop Airway Placement: Date/Time: 07/17/2018 10:00 AM Airway type: Nasal cannula salter us Barber Lindsey MD [place] ANESTHESIA Final Resu lt Performing Organization Address [facility]/[place] [address] * GMED EGD (07/17/2018 9:45 AM EDT) 07/17/2018 9:45 AM EDT Impressions [facility] - 07/26/2018 1:27 PM EDT Normal stomach. [...] PROCEDURE ORDERABLES Ed ited Result - Final [facility] [address] [place] [address] * TESTOSTERONE FREE, ADULT MALE -REF LAB (07/04/2018 1:31 PM EDT) Free T Calc 66 47 - 244 pg/mL 07/06/2018 12:20 PM EDT [facility] [employer] Comment: INTERPRETIVE INFORMATION: Testosterone, Free Tereso Stage IV 35 - 169 pg/mL Tereso Stage V 41 - 239 pg/mL The concentration of Free Testosterone is derived from a mathematical expression based on the constant for the binding of testosterone to Sex Hormone Binding Globulin (SHBG). Access complete set of age- and/or gender-specific reference intervals for this test in the [employer] [facility] Test Directory ([facility]). Performed by [facility] [employer] [place], [address] [place] [id number] [email or web address], Lencho Keys MD, Lab. Director Blood Venipuncture / Unknown 07/04/2018 1:31 PM EDT 07/04/2018 1:31 PM EDT us Barbara Cole APRN CHEMISTRY ORDERABLES Final Result Performing Organization Address City/[facility]/ZIP Co de Phone Number [facility] [address] [place], [place] [id number] * TSH REFLEX (05/27/2018 2:42 PM EDT) Only the most recent of2 resultswithin the time period is included. TSH Reflex 2.250 0.270 - 4.200 mcIU/mL 05/27/2018 8:53 PM EDT [facility] Blood Venipuncture / Unknown 05/27/2018 2:42 PM EDT 05/27/2018 2:42 PM EDT Narrative P[facility]ED [employer] [facility] - 05/27/2018 8:53 PM EDT Ingestion of joaquin doses of biotin (>5 mg/day) taken within 8 hours of drawing blood sample can interfere with this immunoassay test. us Vernon Salinas MD CHEMISTRY ORDERABLES Fi nal Result [facility] [address] [facility] , [place] [address] * IR 2 LEVEL BILATERAL MEDIAL BRANCH [...] Please see Op Note in Epic. us Chelita Reynoso APRN IMG IR ORDERABLES Final Result * HCV QUANT W/RFLX TO GENOTYPE -REF LAB (12/01/2017 9:03 AM EDT) HCV Qnt by NAAT (IU/mL) Not Detected IU/mL 2017 7:16 AM EDT [facility] [employer] HCV Qnt by NAAT (log IU/mL) Not Detected log IU/mL 2017 7:16 AM EDT [employer] Comment: Hepatitis C Virus (HCV) [...] and Cellular Tissue-Based Products (HCT/P). Performed by [facility] [employer] [place], [address] [place] [address] [email or web address], Lencho Keys MD, Lab. Director Blood VENOUS BLOOD / Unknown Venipuncture / Unknown 12/01/2017 9:03 AM EDT 12/01/2017 9:03 AM EDT Vernon Salinas MD IMMUNOLOGY ORDERABLES F inal Result Performing Organization Address [facility] Co de Phone Number [facility] [address] [place] [address] * (ABNORMAL) HEPATITIS C ANTIBODY - SCREENING (11/25/2017 9:25 AM EDT) Hep C Ab Reactive( A) Non-React carmine 11/26/2017 10:31 AM EDT [facility] Comment:Weakly Reactive. Pre sumptive evidence of antibodies [...] ORDERABLES F inal Result Performing Organization Address City/[facility]/ZIP Co de Phone Number [facility] [address] [place] [address] , [place] [address] * INSULIN ANTIBODY -REF LAB (10/04/2017 10:25 AM EDT) Pathologist [facility] Insulin Antibody <0.4 0.0 - 0.4 U/mL 10/08/2017 9:56 AM EDT [facility] Comment: INTERPRETIVE INFORMATION: Insulin Antibody A value [...] the context of clinical symptoms. Performed by [facility] [employer] [place], [address] [place] [id number] [email or web address], Lencho Keys MD, Lab. Director Blood VENOUS BLOOD / Unknown Venipuncture / Unknown 10/04/2017 10:25 AM EDT 10/04/2017 10:25 AM EDT us Vernon Salinas MD CHEMISTRY ORDERABLES Fi nal Result Performing Organization Address [facility]/ZIP Co de Phone Number [facility] [address] [place] [address] * INSULIN FASTING (10/04/2017 10:25 AM EDT) [facility] Insulin Fasting 17.33 2.60 - 24.90 mcIU/mL 10/04/2017 4:00 PM EDT [facility] Blood VENOUS BLOOD / Unknown Venipuncture / Unknown 10/04/2017 10:25 AM EDT 10/04/2017 10:25 AM EDT Narrative [facility] - 10/04/2017 4:00 PM EDT Ingestion of joaquin doses of biotin (>5 mg/day) taken within 8 hours of drawing blood sample can interfere with this immunoassay test. Vernon Salinas MD CHEMISTRY ORDERABLES Fi nal Result Performing Organization Address [facility]/ZIP Co de Phone Number [facility] [address] [facility] , [place] [address] * IR ULTRASOUND GUIDED VASCULAR ACCESS (09/24/2017 [...] was performed by ALEKSANDER Tapia under supervision Dejuna Parker M.D.. Ultrasound interrogation performed of the [...] CULTURE (NO STAIN) 09/27/2017 4:00 PM EDT [facility] Blood VENOUS BLOOD / Unknown Venipuncture / Unknown 09/22/2017 10:17 AM EDT 09/22/2017 10:50 AM EDT us Marlon Yarbrough MD MICROBIOLOGY - GENERAL ORDERA BLES Final Result [facility] [address] [place] [address] , [place] [address] * XR ABDOMEN AP (09/20/2017 7:57 PM [...] 0.08(H) <0.01 ng/mL 09/20/2017 11:14 AM EDT [facility] Blood VENOUS BLOOD / Unknown Venipuncture / Unknown 09/20/2017 10:42 AM EDT 09/20/2017 10:53 AM EDT Narrative [facility] - 09/20/2017 11:14 AM EDT Ingestion of joaquin doses of biotin (>5 mg/day) taken within 8 hours of drawing blood sample can interfere with this immunoassay test. Jasper Dixon MD CHEMISTRY ORDERABLES Amie l Result Performing Organization Address City/State/[facility] Co de Phone Number [facility] [address] [place] [address] * REPEAT LACTIC ACID (09/20/2017 6:49 AM EDT) [facility] Lactic Acid 1.5 0.5 - 1.9 mmol/L 09/20/2017 7:15 AM EDT [facility] Blood VENOUS BLOOD / Unknown Venipuncture / Unknown 09/20/2017 6:49 AM EDT 09/20/2017 6:55 AM EDT Jasper Dixon MD CHEMISTRY ORDERABLES Amie l Result Performing Organization Address [facility] de Phone Number [facility] [address] [place] [address] * EXTRA BAER URINE CX (09/20/2017 4:19 AM EDT) Urine URINE SPECIMEN COLLECTION, CLEAN CATCH / Unknown 09/20/2017 4:19 AM EDT 09/20/2017 4:22 AM EDT Jasper Dixon MD MICROBIOLOGY - GENERAL OR DERABLES Final Result Performing Organization Address [facility] de Phone Number [facility] [address] [place] [address] * (ABNORMAL) BLOOD CULTURE NUCLEIC ACID (GRAM NEG) (09/20/2017 4:12 AM EDT) [facility] Bl Cx Nucleic Acid Test POSITIVE for Enterobacter species by Ver[employer] nucleic acid test. Conventional identification and antimicrobial susceptibility testing to follow.(A) Negative 09/21/2017 6:13 AM EDT [facility] [email or web address] Blood VENOUS BLOOD / Unknown Venipuncture / Unknown 09/20/2017 4:12 AM EDT 09/20/2017 4:20 AM EDT us Jasper Dixon MD MICROBIOLOGY - GENERAL OR DERABLES Final Result Performing Organization Address [facility] Co de Phone Number [facility], [email or web address] [address] [facility], [place] [address] * POCT HEMOCCULT 1-3 CARDS (09/19/2016 11:59 AM EDT) Only the most recent of2 resultswithin the time period is included. Pathologist [facility] Fec Heme neg POS/NEG SEP OFFICE Lot Number SEP OFFICE Expiration Date SEP OFFICE SeriAl # SEP OFFICE Stool specimen (specimen) 09/19/2016 11:59 AM EDT Omi Malika DO POINT OF CARE TEST ORDERABLES F inal Result SEP OFF[facility] * SCANNED RADIOLOGY REPORT (08/03/2016 10:29 AM EDT) Anatomical Region Laterality Modality Cardiac Stress T esting 08/03/2016 10:2 9 AM EDT Unknown Unknown IMG DIAGNOSTIC IMAGING ORDERABLE S Final Result * LDL, CALCULATED (07/27/2016 3:35 PM EDT) Only the most recent of3 resultswithin the time period is included. Pathologist [facility] LDL Calculated 48 <=100 mg/dL [facility] Comment: < 100 Optimal 100 - 129 Near or above optimal 130 - 159 Borderline High 160 - 189 High >= 190 Very High Blood specimen (specimen) 07/27/2016 3:35 PM EDT 07/27/2016 7:35 PM EDT Angelina Zaldivar MD CHEMISTRY ORDERABLES Amie l Result [facility] [address] [place] [address] * T3 FREE (09/18/2015 11:42 AM EDT) Pathologist [facility] T3 Free 3.40 2.00 - 4.40 pg/mL [facility] Blood specimen (specimen) UPPER LIMB STRUCTURE / Unknown 09/18/2015 11:42 AM EDT 09/18/2015 1:41 PM EDT us Daniela L Garcia FILEMAKER DEVELOPER CHEMISTRY ORDERABLES Final R esult [facility] [address] [place] [address] * (ABNORMAL) POCT GLUCOSE (09/01/2013 3:44 PM EDT) Only the most recent of2 resultswithin the time period is included. Glucose 59(A) 60 - 200 mg/dL [facility] Comment:peanut butter cracke rs and sprite given in office, will recheck in 5 mins Lot Number SEP OFFICE Expiration Date SEP OFFICE SeriAl # SEP OFFICE Meter SEP OFFICE 09/01/2013 3:44 PM EDT us Omi Malika DO POINT OF CARE TEST ORDERABLES F inal Result SEP OFFICE * SCANNED PRE/POST PROCEDURES (09/01/2013 [...] included. K-WB 4.2 3.5 - 5.0 mEq/L [facility] [facility] Blood specimen (specimen) UPPER LIMB STRUCTURE / Unknown 08/27/2013 8:43 PM EDT 08/27/2013 8:48 PM EDT us Samuel Newton Jo MD CHEMISTRY ORDERABLES F inal Result Performing Organization Address [facility] Co de Phone Number [facility] [address] [place] [address] * (ABNORMAL) DIFFERENTIAL (08/27/2013 4:30 AM EDT) Only the most recent of4 resultswithin the time period is included. Neut Percent 75.1 % [facility] Lymph Percent 13.9 % [facility] Tate Percent 10.5 % [facility] Eos Percent 0.1 % [facility] Baso Percent 0.4 % [facility] Neut# 9.4(H) 1.8 - 7.7 x10(3)/mcL [facility] Lymph# 1.7 0.6 - 4.8 x10(3)/mcL [facility] Tate# 1.3 0.0 - 1.3 x10(3)/mcL [facility] Eos# 0.0 0.0 - 0.5 x10(3)/[facility] Baso# 0.0 0.0 - 0.2 x10(3)/[facility] Blood specimen (specimen) 08/27/2013 4:30 AM EDT 08/27/2013 4:32 AM EDT Samuel Jo MD HEMATOLOGY ORDERABLES Final Result Performing Organization Address [facility] Co de Phone Number [facility] [address] [place] [address] * O2 SAT - MIXED VENOUS (08/26/2013 4:45 AM EDT) Only the most recent of2 resultswithin the time period is included. O2 Sat - Mixed Venous 73 % [facility] Blood specimen (specimen) 08/26/2013 4:45 AM EDT 08/26/2013 4:52 AM EDT Samuel Jo MD CHEMISTRY ORDERABLES F inal Result Performing Organization Address [facility] Co de Phone Number [facility] [address] [place] [address] * (ABNORMAL) BLOOD GAS ARTERIAL (08/26/2013 3:15 AM EDT) Only the most recent of9 resultswithin the time period is included. pH 7.350(L) 7.370 - 7.440 [facility] pCO2 43 32 - 45 mmHg [facility] pO2 60(L) 80 - 95 mmHg [facility] HCO3 24 20 - 29 mmol/L [facility] TCO2 25 21 - 30 mmol/L [facility] Base Excess -2.0 -2.8 - 2.3 mEq/L [facility] O2 Sat 96 95 - 97 % [facility] Inspired O2 4L [facility] Specimen Type Arterial [facility] Blood specimen (specimen) UPPER LIMB STRUCTURE / Unknown 08/26/2013 3:15 AM EDT 08/26/2013 3:24 AM EDT Samuel Jo MD CHEMISTRY ORDERABLES F inal Result Performing Organization Address [facility] Co de Phone Number [facility] [address] [place] [address] * (ABNORMAL) HEMOGLOBIN AND HEMATOCRIT (08/25/2013 4:40 PM EDT) Pathologist [facility] Hgb 11.0(L) 13.5 - 17.1 gm/dL [facility] Hct 31.8(L) 38.9 - 51.6 % [facility] Blood specimen (specimen) UPPER LIMB STRUCTURE / Unknown 08/25/2013 4:40 PM EDT 08/25/2013 4:42 PM EDT Narrative [facility] - 08/25/2013 4:47 PM EDT 4 hours after admission to [facility] Samuel Jo MD HEMATOLOGY ORDERABLES Final Result Performing Organization Address City/[facility]/ZIP Co de Phone Number [facility] [address] [place] [address] * (ABNORMAL) PARTIAL THROMBOPLASTIN TIME (08/25/2013 1:35 PM EDT) PTT 69.1(H) 24.4 - 35.0 second(s) [facility] Comment: Therapeutic range for direct thrombin [...] PM EDT 08/25/2013 1:35 PM EDT Narrative [facility] - 08/25/2013 2:17 PM EDT On admission to [facility] us Samuel Jo MD HEMATOLOGY ORDERABLES Final Result Performing Organization Address City/[facility] Co de Phone Number [facility] [address] [place] [address] * FIBRINOGEN (08/25/2013 1:35 PM EDT) Fibrinogen 214 196 - 447 mg/dL [facility] Blood specimen (specimen) 08/25/2013 1:35 PM EDT 08/25/2013 1:35 PM EDT Narrative [facility] - 08/25/2013 2:06 PM EDT On admission to [facility] us Samuel Jo MD HEMATOLOGY ORDERABLES Final Result Performing Organization Address [facility] de Phone Number [facility] [address] [place] [address] * HEPARIN ANTI-XA, UNF (08/25/2013 5:05 AM EDT) Only the most recent of5 resultswithin the time period is included. Heparin Level UNF 0.37 0.30 - 0.70 IU/mL [facility] Comment: The therapeutic range for heparinized patients monitored by the Heparin Lvl UF is 0.30-0.70 IU/mL. Blood specimen (specimen) 08/25/2013 5:05 AM EDT 08/25/2013 5:48 AM EDT Narrative [facility] - 08/25/2013 6:09 AM EDT Heparin anti-Xa unfractionated level every day while on heparin us Tod Wolf MD HEMATOLOGY ORDERABLES Final Re sult [facility] [address] [place] [address] * STAPHYLOCOCCUS AUREUS SCREEN (08/24/2013 1:37 PM EDT) Final Growth of Staphylococcus aureus identified as methicillin sensitive. [facility] Specimen from nose (specimen) 08/24/2013 1:37 PM EDT 08/24/2013 2:13 PM EDT us Samuel Jo MD MICROBIOLOGY - GENERAL ORDERABLES Final Result Performing Organization Address [facility] Co de Phone Number [facility] [address] [place] [address] * ABORH (08/24/2013 1:06 PM EDT) ABORh Int A NEG [facility] Blood specimen (specimen) 08/24/2013 1:06 PM EDT 08/24/2013 1:30 PM EDT Narrative [facility] - 08/24/2013 2:50 PM EDT Only if redo patient us Samuel Jo MD BLOOD BANK ORDERABLES Final Result Performing Organization Address [facility] Co de Phone Number [facility] [address] [place] [address] * ANTIBODY SCREEN IGG (08/24/2013 1:06 PM EDT) ABSC IgG Int Negative [facility] Blood specimen (specimen) 08/24/2013 1:06 PM EDT 08/24/2013 1:30 PM EDT Narrative [facility] - 08/24/2013 2:48 PM EDT Only if redo patient us Samuel Jo MD BLOOD BANK ORDERABLES Final Result Performing Organization Address [facility]/ZIP Co de Phone Number [facility] [address] [place] [address] * BENZENE OPERATOR PROCEDURE LOG (08/22/2013 12:00 AM EDT) us Jeffy Mehlman MD [facility]ARDIAC CATH ORDERABLES Amie mcgee Result [facility] [address] [place] [address] * SCANNED OR REPORT (10/19/2009 12:00 AM EDT) Narrative 10/19/2009 3:51 PM EDT Ordered by an unspecified provider. Transcriptions Unknown, U - 10/19/2009 3:36 PM EDT us U Unknown PROCEDURE/MINOR SURGICAL ORDERAB LES Final Result * CT ABD/PELVIS ANIMAL LABORATORY TECHNICIAN GC (02/07/2009 12:59 AM EST) Anatomical Region [...] is no free fluid or free air. [id number] images of the liver and spleen are unremarkable. Impression- No acute findings of the abdomen or pelvis. Tobacco Roller- MARQUITA KING Reading Physician- SHELL YUSUF MD Released Date Time- 02/07/09 1228 Procedure Note Shell Yusuf M - 05/21/2009 CT abdomen and pelvis. History- Left flank pain. Findings- The kidneys are normal in appearance, without hydronephrosis. No renal stones are present. No ureteral stones are seen. Visualized portions of the gastrointestinal tract are within normal limits. There is no free fluid or free air. [id number] images of the liver and spleen are unremarkable. Impression- No acute findings of the abdomen or pelvis. Tobacco Roller- MARQUITA KING Reading Physician- SHELL YUSUF MD Released Date Time- 02/07/09 1228 Jarek Pack MD [facility] HISTORICAL F inal Result * XR ABDOMEN GC (02/07/2009 12:53 AM EST) Anatomical Region Laterality Modality Other 02/07/2009 12:5 3 AM EST Narrative 02/07/2009 8:34 AM EST KUB of the abdomen. History- Left flank pain. Findings- There are no obvious calcifications. The study is limited secondary to the patient's large body habitus. The bowel gas pattern is within normal limits. Impression- Unremarkable KUB. Halie Garcia Physician- SUHA JACOBS MD Released Date Time- 02/07/091224 Procedure Suha Solis III - 05/21/2009 KUB of the abdomen. History- Left flank pain. Findings- There are no obvious calcifications. The study is limited secondary to the patient's large body habitus. The bowel gas pattern is within normal limits. Impression- Unremarkable KUB. Halie Garcia PhysicianMaya JACOBS MD Released Date Time- 02/07/091224 Jarek Pack MD [facility] HISTOR[facility] F inal Result * [...] tissue contours within normal limits. Thom YorkistMaya Garcia Radiologist- PEGGY TOMAS MD Released Date Time- [...] Soft tissue contours within normal limits. Thom TATUM Reading Radiologist- PEGGY TOMAS MD Released Date Time- 08/26/07 0543 Timothy Carrion MD [facility] mcgee Result Visit Diagnoses Diagnosis Start [...] Chest pain, unspecified 08/22/2013 Coronary atherosclerosis of torres martinez coronary artery 08/25/2013 CAD (coronary artery disease) Coronary atherosclerosis of unspecified type of vessel, torres martinez or graft 08/23/2013 Chest pain Chest pain, [...] Coronary atherosclerosis of unspecified type of vessel, torres martinez or graft 09/01/2013 HTN (hypertension) Unspecified essential [...] Coronary atherosclerosis of unspecified type of vessel, torres martinez or graft 09/16/2013 HTN (hypertension) Unspecified essential [...] Coronary atherosclerosis of unspecified type of vessel, torres martinez or graft 04/18/2014 Vitamin D deficiency Unspecified [...] Coronary atherosclerosis of unspecified type of vessel, torres martinez or graft 09/22/2014 Chest pain Chest pain, [...] 07/09/2015 Type 2 diabetes mellitus without complication 07/09/2015 Hypertension associated with diabetes (HCC) Type [...] 09/23/2015 Type 2 diabetes mellitus without complication 10/11/2015 Type 2 diabetes mellitus with complication (HCC) 10/12/2015 Vitamin B12 deficiency Other B-complex deficiencies 10/12/2015 Hypertension associated with diabetes (HCC) Type II or unspecified type diabetes mellitus with other specified manifestations, not stated as uncontrolled 10/12/2015 Hyperlipidemia associated with type 2 diabetes mellitus (HCC) 10/12/2015 Type 2 diabetes mellitus without complication, without long-term current use of insulin (HCC) 12/27/2015 Type 2 diabetes mellitus with complication, without long-term current use of insulin ([facility]) 12/27/2015 Type 2 diabetes mellitus with complication ([facility]) 03/30/2016 Back pain with left-sided radiculopathy 04/04/2016 Controlled type 2 diabetes mellitus without complication, without long-term current use of insulin (HCC) 04/04/2016 Type 2 diabetes mellitus without complication, without long-term current use of insulin ([facility]) 04/04/2016 Hypertension associated with diabetes ([facility]) Type II or unspecified type diabetes mellitus with other specified manifestations, not stated as uncontrolled 04/04/2016 Hyperlipidemia associated with type 2 diabetes mellitus (HCC) 04/04/2016 Vitamin D deficiency Unspecified vitamin D [...] without long-term current use of insulin (HCC) 07/27/2016 Hyperlipidemia associated with type 2 diabetes mellitus (HCC) 07/27/2016 Chest discomfort Other chest pain 07/27/2016 [...] 08/01/2016 Type 2 diabetes mellitus without complication 08/02/2016 Vitamin D deficiency Unspecified vitamin D [...] Type 2 diabetes mellitus without complication, unspecified frame stripper and crusher insulin use status 12/20/2016 Candidiasis Candidiasis of unspecified site 04/03/2017 Type 2 diabetes mellitus without complication, unspecified custodial insulin use status 06/06/2017 Ischemic heart disease [...] 2 diabetes mellitus without complication, unspecified whether frame stripper and crusher insulin use 10/06/2017 Controlled type 2 diabetes mellitus without [...] 2 diabetes mellitus without complication, unspecified whether frame stripper and crusher insulin use 11/25/2017 Type 2 diabetes mellitus without complication, unspecified whether frame stripper and crusher insulin use 11/26/2017 Hepatitis C antibody positive in blood [...] 2 diabetes mellitus without complication, unspecified whether custodial insulin use 03/02/2018 Spondylosis of lumbar region without myelopathy [...] type 2 diabetes mellitus with hyperglycemia (HCC) 05/27/2018 Yeast dermatitis of penis Candidiasis of other urogenital sites 05/27/2018 Phimosis Redundant prepuce and phimosis 05/27/2018 Frequency of micturition Urinary frequency 05/27/2018 Glucosuria Glycosuria 05/27/2018 Enlarged prostate Hypertrophy of prostate without urinary obstruction and other lower urinary tract symptoms (LUTS) 05/27/2018 Type 2 diabetes mellitus without complication, unspecified whether custodial insulin use 05/28/2018 Obesity, Class II, BMI 35-39.9 Obesity, [...] type 2 diabetes mellitus with hyperglycemia (HCC) 06/27/2018 Vitamin B12 deficiency Other B-complex deficiencies [...] type 2 diabetes mellitus with hyperglycemia (HCC) 07/04/2018 Vitamin B12 deficiency Other B-complex deficiencies 07/04/2018 Vitamin D deficiency Unspecified vitamin D deficiency 07/04/2018 Ischemic heart disease Chronic ischemic heart disease, unspecified 07/04/2018 Obesity, Class III, BMI 40-49.9 (morbid obesity) (HCC) Morbid obesity 07/08/2018 Chronic pain syndrome 07/11/2018 [...] D deficiency 07/29/2018 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, unspecified vessel or [...] or radiculopathy Lumbosacral spondylosis without myelopathy 10/11/2018 Dyslipidemia associated with type 2 diabetes mellitus (HCC) Type II or unspecified type diabetes mellitus with other specified manifestations, not stated as uncontrolled 10/14/2018 Uncontrolled type 2 diabetes mellitus with hyperglycemia (HCC) 10/14/2018 Type 2 diabetes mellitus without complication, unspecified whether frame stripper and crusher insulin use 10/14/2018 Essential hypertension Unspecified essential hypertension 10/14/2018 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, unspecified vessel or [...] of 35.0 to 35.9 in adult 11/19/2018 Essential hypertension Unspecified essential hypertension 11/21/2018 [...] (BMI) of 35.0 to 35.9 in adult 12/09/2018 Vitamin D deficiency Unspecified vitamin D [...] 2 diabetes mellitus without complication, unspecified whether frame stripper and crusher insulin use 01/20/2019 Obesity, Class I, BMI 30-34.9 Obesity, [...] (BMI) of 35.0 to 35.9 in adult 02/01/2019 Bradycardia Other specified cardiac dysrhythmias 02/01/2019 Flu-like symptoms Influenza with other respiratory manifestations 02/01/2019 Essential hypertension Unspecified essential hypertension 02/13/2019 Gastroesophageal reflux disease without esophagitis Esophageal reflux 02/13/2019 Mixed hyperlipidemia 02/13/2019 Ischemic heart disease Chronic ischemic heart disease, unspecified 02/20/2019 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, unspecified vessel or [...] disease, unspecified 03/14/2019 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, unspecified vessel or [...] 2 diabetes mellitus without complication, unspecified whether frame stripper and crusher insulin use 10/13/2019 Dyslipidemia associated with type 2 diabetes mellitus (HCC) Type II or unspecified type diabetes mellitus with other specified manifestations, not stated as uncontrolled 10/13/2019 Vitamin B12 deficiency Other B-complex deficiencies 10/13/2019 Type 2 diabetes mellitus without complication, unspecified whether custodial insulin use 10/17/2019 BPH with obstruction/lower urinary tract symptoms [...] disease, unspecified 11/06/2019 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, unspecified vessel or [...] (BMI) of 35.0 to 35.9 in adult 11/28/2019 TIA (transient ischemic attack) Unspecified transient [...] in head and neck 12/15/2019 Hx of frame stripper and crusher use of blood thinners Encounter for long-term [...] disease, unspecified 06/23/2020 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, unspecified vessel or lesion type 06/23/2020 S/P CABG x 3 Postsurgical aortocoronary bypass status 06/23/2020 Ventricular bigeminy Other specified cardiac dysrhythmias 06/23/2020 Other secondary osteoarthritis of right shoulder 07/13/2020 Complete tear of right rotator cuff, unspecified whether traumatic 07/13/2020 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, unspecified vessel or [...] (BMI) of 35.0 to 35.9 in adult 02/14/2021 Dyslipidemia associated with type 2 diabetes mellitus (HCC) Type II or unspecified type diabetes mellitus with other specified manifestations, not stated as uncontrolled 02/14/2021 Type 2 diabetes mellitus without complication, unspecified whether custodial insulin use 02/14/2021 Abscess Cellulitis and abscess of unspecified site 02/14/2021 Uncontrolled type 2 diabetes mellitus with hyperglycemia (HCC) 02/15/2021 Muscle spasm Spasm of muscle 03/09/2021 [...] type 2 diabetes mellitus with hyperglycemia (HCC) 04/01/2021 Muscle spasm Spasm of muscle 04/01/2021 Diabetes mellitus without complication (HCC) Type II [...] type 2 diabetes mellitus with hyperglycemia (HCC) 04/12/2021 Dermatitis Contact dermatitis and other eczema, [...] (BMI) of 35.0 to 35.9 in adult 12/14/2021 Sciatica of right side Sciatica 12/19/2021 [...] type 2 diabetes mellitus with hyperglycemia (HCC) 12/22/2021 Encounter for support and coordination of [...] Other psoriasis 03/06/2022 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, unspecified vessel or lesion type 03/07/2022 Mixed hyperlipidemia 03/07/2022 Chest pain, unspecified type 03/07/2022 Ischemic heart disease Chronic ischemic heart disease, unspecified 03/07/2022 S/P CABG x 3 Postsurgical aortocoronary bypass status 03/07/2022 Atherosclerotic heart disease of torres martinez coronary artery with other forms of angina [...] (BMI) of 35.0 to 35.9 in adult 03/20/2022 Atherosclerotic heart disease of torres martinez coronary artery with other forms of angina pectoris 03/20/2022 Fluid retention in legs Edema 03/20/2022 Angina of effort Other and unspecified angina pectoris 03/20/2022 Encounter for support and coordination of transition of care 03/23/2022 Diabetes mellitus without complication (HCC) Type II or unspecified type diabetes mellitus without mention of complication, not stated as uncontrolled 04/07/2022 Combined form of age-related cataract, left eye 04/07/2022 Combined form of age-related cataract, right eye 04/07/2022 KCS (keratoconjunctivitis sicca) Sicca syndrome 04/07/2022 Refractive error Unspecified disorder of refraction and accommodation 04/07/2022 Neck pain Cervicalgia 04/10/2022 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, unspecified vessel or [...] (BMI) of 35.0 to 35.9 in adult 04/20/2022 Sacroiliitis Sacroiliitis, not elsewhere classified 04/20/2022 [...] both knees 05/19/2022 Atherosclerotic heart disease of torres martinez coronary artery with other forms of angina [...] 2 (HCC) 08/11/2022 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, unspecified vessel or lesion type 08/14/2022 Mixed hyperlipidemia 08/14/2022 Ischemic heart disease Chronic ischemic heart disease, unspecified 08/14/2022 S/P CABG x 3 Postsurgical aortocoronary bypass status 08/14/2022 Hematoma of groin, initial encounter 08/14/2022 Other specified complications of surgical and medical care, not elsewhere classified, initial encounter 08/14/2022 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, unspecified vessel or [...] Mixed hyperlipidemia 09/23/2022 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, unspecified vessel or [...] hyperglycemia (HCC) 09/27/2022 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, unspecified vessel or [...] hyperglycemia (HCC) 11/02/2022 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, unspecified vessel or [...] of care 03/16/2023 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, unspecified vessel or [...] (BMI) of 35.0 to 35.9 in adult 04/11/2023 Dyslipidemia associated with type 2 diabetes mellitus (HCC) Type II or unspecified type diabetes mellitus with other specified manifestations, not stated as uncontrolled 04/11/2023 Stage 3 chronic kidney disease, unspecified whether stage 3a or 3b CKD (HCC) 04/11/2023 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, unspecified vessel or lesion type 04/23/2023 Chest pain, unspecified type 04/23/2023 Gastroesophageal reflux disease with esophagitis, unspecified whether hemorrhage 04/23/2023 Sore throat Acute pharyngitis 04/23/2023 Runny nose Other diseases of nasal cavity and sinuses 04/23/2023 Uncontrolled type 2 diabetes mellitus with hyperglycemia (HCC) 05/05/2023 Mixed hyperlipidemia 05/13/2023 Congestive heart failure, unspecified HF chronicity, unspecified heart failure type (HCC) 05/13/2023 Irritable bowel syndrome with diarrhea Irritable bowel syndrome 05/13/2023 Left lower quadrant abdominal pain 05/13/2023 CHF (congestive heart failure), NYHA class I, acute on chronic, combined (HCC) 05/13/2023 Acute right-sided congestive heart failure (HCC) Congestive heart failure, unspecified 05/13/2023 Type 2 diabetes mellitus with diabetic peripheral angiopathy without gangrene, without long-term current use of insulin (HCC) 05/13/2023 Class 2 severe obesity due to excess calories with serious comorbidity and body mass index (BMI) of 35.0 to 35.9 in adult 05/13/2023 Dyslipidemia associated with type 2 diabetes mellitus (HCC) Type II or unspecified type diabetes mellitus with other specified manifestations, not stated as uncontrolled 05/13/2023 Uncontrolled type 2 diabetes mellitus with hyperglycemia (HCC) 05/14/2023 Dyslipidemia associated with type 2 diabetes [...] and sinuses 06/20/2023 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, unspecified vessel or lesion type 06/21/2023 Mixed hyperlipidemia 06/21/2023 Ischemic heart disease Chronic ischemic heart disease, unspecified 06/21/2023 Congestive heart failure, unspecified HF chronicity, unspecified heart failure type ([facility]) 06/21/2023 S/P CABG x 3 Postsurgical aortocoronary [...] residual deficits 07/16/2023 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, unspecified vessel or [...] without myelopathy 09/18/2023 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, unspecified vessel or lesion type 09/20/2023 S/P CABG x 3 Postsurgical aortocoronary bypass status 09/20/2023 SOB (shortness of breath) Shortness of breath 09/20/2023 Chest pain, unspecified type 09/20/2023 Dyslipidemia associated with type 2 diabetes mellitus (HCC) Type II or unspecified type diabetes mellitus with other specified manifestations, not stated as uncontrolled 09/20/2023 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, unspecified vessel or [...] NYHA class I, acute on chronic, combined ([facility]) 09/20/2023 Uncontrolled type 2 diabetes mellitus with hyperglycemia ([facility]) 09/23/2023 Dyslipidemia associated with type 2 diabetes mellitus ([facility]) Type II or unspecified type diabetes mellitus with other specified manifestations, not stated as uncontrolled 09/29/2023 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, unspecified vessel or [...] Coronary atherosclerosis of unspecified type of vessel, torres martinez or graft 10/01/2023 Other forms of angina pectoris 10/01/2023 SOB (shortness of breath) Shortness of breath 10/01/2023 ASHD (arteriosclerotic heart disease) Coronary atherosclerosis of unspecified type of vessel, torres martinez or graft 10/01/2023 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, unspecified vessel or lesion type 10/17/2023 Other forms of angina pectoris 10/17/2023 Sore throat Acute pharyngitis 10/23/2023 Runny nose Other diseases of nasal cavity and sinuses 10/23/2023 Uncontrolled type 2 diabetes mellitus with hyperglycemia ([facility]) 10/24/2023 Gastroesophageal reflux disease with esophagitis, unspecified [...] Coronary atherosclerosis of unspecified type of vessel, torres martinez or graft 11/06/2023 Dyslipidemia associated with type [...] Dyslipidemia associated with type 2 diabetes mellitus ([facility]) Type II or unspecified type diabetes mellitus [...] NYHA class I, acute on chronic, combined ([facility]) 12/11/2023 Uncontrolled type 2 diabetes mellitus with hyperglycemia ([facility]) 12/12/2023 Gastroesophageal reflux disease with esophagitis, unspecified whether hemorrhage 12/12/2023 CHF (congestive heart failure), NYHA class I, acute on chronic, combined ([facility]) 12/12/2023 Uncontrolled type 2 diabetes mellitus with hyperglycemia ([facility]) 12/19/2023 Stage 3 chronic kidney disease, unspecified whether stage 3a or 3b CKD ([facility]) 12/19/2023 Numbness and tingling of left arm [...] failure 12/31/2023 Stage 3a chronic kidney disease ([facility]) 01/01/2024 Vitamin D deficiency Unspecified vitamin D deficiency 01/01/2024 CHF (congestive heart failure), NYHA class I, acute on chronic, combined ([facility]) 12/31/2023 Uncontrolled type 2 diabetes mellitus with hyperglycemia (HCC) 01/04/2024 CHF (congestive heart failure), NYHA class I, acute on chronic, combined ([facility]) 01/04/2024 Acute on chronic systolic congestive heart failure (HCC) Acute on chronic systolic heart failure 01/04/2024 Stage 3 chronic kidney disease, unspecified whether stage 3a or 3b CKD (HCC) 01/04/2024 Stage 3a chronic kidney disease (HCC) 01/04/2024 Chronic kidney disease-mineral and bone disorder 01/04/2024 Uncontrolled type 2 diabetes mellitus with hyperglycemia ([facility]) 01/08/2024 CHF (congestive heart failure), NYHA class I, acute on chronic, combined ([facility]) 01/08/2024 Seasonal allergic rhinitis due to pollen 01/14/2024 CHF (congestive heart failure), NYHA class I, acute on chronic, combined (HCC) 01/14/2024 Acute bronchitis, unspecified organism 01/14/2024 Uncontrolled type 2 diabetes mellitus with hyperglycemia ([facility]) 01/14/2024 CHF (congestive heart failure), NYHA class I, acute on chronic, combined ([facility]) 01/14/2024 CHF (congestive heart failure), NYHA class I, acute on chronic, combined ([facility]) 01/31/2024 CHF (congestive heart failure), NYHA class I, acute on chronic, combined (HCC) 02/01/2024 CHF (congestive heart failure), NYHA class I, acute on chronic, combined ([facility]) 02/11/2024 Fluid retention in legs Edema 02/13/2024 [...] NYHA class I, acute on chronic, combined ([facility]) 02/13/2024 Psoriasis of scalp Other psoriasis 03/01/2024 Uncontrolled type 2 diabetes mellitus with hyperglycemia ([facility]) 03/17/2024 CHF (congestive heart failure), NYHA class I, acute on chronic, combined ([facility]) 03/17/2024 Enrolled in chronic care management 03/17/2024 CHF (congestive heart failure), NYHA class I, acute on chronic, combined ([facility]) 04/06/2024 Uncontrolled type 2 diabetes mellitus with hyperglycemia (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) 04/08/2024 Tinea corporis Dermatophytosis of the body 04/08/2024 Psoriasis of scalp Other psoriasis 05/01/2024 Uncontrolled type 2 diabetes mellitus with hyperglycemia ([facility]) 05/05/2024 CHF (congestive heart failure), NYHA class I, acute on chronic, combined ([facility]) 05/05/2024 Enrolled in chronic care management 05/05/2024 ASHD (arteriosclerotic heart disease) Coronary atherosclerosis of unspecified type of vessel, torres martinez or graft 05/06/2024 Dyslipidemia associated with type 2 diabetes mellitus ([facility]) Type II or unspecified type diabetes mellitus with other specified manifestations, not stated as uncontrolled 05/06/2024 S/P CABG x 3 Postsurgical aortocoronary bypass status 05/06/2024 Psoriasis of scalp Other psoriasis 05/16/2024 Uncontrolled type 2 diabetes mellitus with hyperglycemia ([facility]) 05/20/2024 Pure hypercholesterolemia 05/20/2024 Seasonal allergic rhinitis due to pollen 05/20/2024 Acute bronchitis, unspecified organism 05/20/2024 Facial rash 05/20/2024 Uncontrolled type 2 diabetes mellitus with hyperglycemia ([facility]) 05/28/2024 CHF (congestive heart failure), NYHA class I, acute on chronic, combined ([facility]) 05/28/2024 Enrolled in chronic care management 05/28/2024 Uncontrolled type 2 diabetes mellitus with hyperglycemia ([facility]) 06/05/2024 CHF (congestive heart failure), NYHA class I, acute on chronic, combined ([facility]) 06/05/2024 Enrolled in chronic care management 06/05/2024 Sore throat Acute pharyngitis 06/11/2024 Runny nose Other diseases of nasal cavity and sinuses 06/11/2024 Acute bacterial sinusitis Acute sinusitis, unspecified 06/16/2024 Essential hypertension Unspecified essential hypertension 06/25/2024 Uncontrolled type 2 diabetes mellitus with hyperglycemia (HCC) 06/26/2024 Gastroesophageal reflux disease with esophagitis, unspecified whether hemorrhage 07/02/2024 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, unspecified vessel or [...] diseases of nasal cavity and sinuses 09/18/2024 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, unspecified vessel or lesion type 09/30/2024 Chest pain, unspecified type 09/30/2024 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, unspecified vessel or lesion type 10/07/2024 Chest pain, unspecified type 10/07/2024 Uncontrolled type 2 diabetes mellitus with hyperglycemia (HCC) 11/03/2024 Uncontrolled type 2 diabetes mellitus with hyperglycemia (HCC) 11/04/2024 Uncontrolled type 2 diabetes mellitus with hyperglycemia (HCC) 11/15/2024 Uncontrolled type 2 diabetes mellitus with hyperglycemia (HCC) 12/28/2024 Uncontrolled type 2 diabetes mellitus with hyperglycemia (HCC) 01/18/2025 DM (diabetes mellitus), type 2, uncontrolled Type [...] Coronary atherosclerosis of unspecified type of vessel, torres martinez or graft 08/23/2013 S/P CABG x 3 Postsurgical aortocoronary bypass status 08/23/2013 Postoperative anemia due to acute blood loss Acute posthemorrhagic anemia 08/23/2013 Controlled type 2 diabetes mellitus without complication (HCC) 09/20/2017 HTN (hypertension) Unspecified essential hypertension 09/20/2017 Hyperlipidemia Other and unspecified hyperlipidemia 09/20/2017 GERD (gastroesophageal reflux disease) Esophageal reflux 09/20/2017 S/P CABG x 3 Postsurgical aortocoronary bypass status 09/20/2017 Ischemic heart disease Chronic ischemic heart disease, unspecified 09/20/2017 CAD (coronary artery disease) Coronary atherosclerosis of unspecified type of vessel, torres martinez or graft 09/20/2017 Acute pyelonephritis Acute pyelonephritis [...] (BMI) of 35.0 to 35.9 in adult 12/01/2019 CAD (coronary artery disease) Coronary atherosclerosis of unspecified type of vessel, torres martinez or graft 12/01/2019 Uncontrolled type 2 diabetes [...] NYHA class I, acute on chronic, combined ([facility]) 08/18/2022 Uncontrolled type 2 diabetes mellitus with hyperglycemia ([facility]) 08/18/2022 S/P CABG x 3 Postsurgical aortocoronary [...] Coronary atherosclerosis of unspecified type of vessel, torres martinez or graft 12/31/2023 Goals Goal Patient Goal [...] EDT) No Carlee Rose CMA Care Teams Ux Design Manager Relationship Specialty Start Date End Date Carlos A Gross DO [address] [place] [phone] PCP - General Family Medicine 06/15/20 Sapphire Munguia MD [address] [place] [id number] Internal Medicine-Cardiovascular Disease 04/11/22
--- OUTSIDE RECORDS SUMMARY | 2025-01-20 12:30 | XMS_ITS | Clinical Summary ---
Author Organization [facility] Address [address] [place], [place] [address] Care Team Providers Care Acid Dumper Name Role Phone Carlos A Gross DO Primary Care Provider [phone] Allergies Active Allergy Reactions Criticality Noted Date [...] Years) 10/27/202710/10 Lipid Screening Discontinued 11/01/2023 Insurance [facility] MEDICARE Care Teams Acid Dumper Relationship Specialty Start Date End Date Carlos A Gross DO [address] [place] [phone] PCP - General Family Medicine 02/22/24
== END 2025-01-20 23:59 | disposition home or self-care (01) ==
LOC: RAD 12:25
PROVIDERS: PCP Nurse Practitioner Family; Visit Provider Nurse Practitioner Family
DX: M47.816 Spondylosis without myelopathy or radiculopathy, lumbar region (principal); R93.7 Abnormal findings on diagnostic imaging of other parts of musculoskeletal system
CPT/HCPCS: 72148

== ENCOUNTER 2025-01-23 09:27 | Outpatient (CLI) | payer MEDICARE, SELFPAY ==
--- OUTSIDE RECORDS SUMMARY | 2014-12-23 17:15 | XMS_ITS | Encounter Summary ---
Author Organization [place] [address] Care Team Providers Care Customer Support Professional Name Role Phone Edgar Dodson MD Primary Care Provider [phone] lEba Tapia RN Unavailable Unavail able Encounter Details Date Type Department Care Team (Latest Contact Info) Description 12/23/2014 6:15 PM EDT Hospital Encounter [facility] [address] [facility] [place] [address] Left without seen Social History Tobacco Use Types Packs/Day Years Used Date Smoking Tobacco: Never Smokeless Tobacco: Never Alcohol Use Standard Drinks/Week Comments No 0 (1 standard drink = 0.6 oz pur e alcohol) NO [facility] Utilities Answer Date Recorded In the past 12 months has [employer] electric, gas, oil, or water company threatened to shut off services in your home? No 01/01/2024 Overall Financial Resource Strain (CARDIA) Answe r Date Recorded How hard is it for you to pa y for the very basics like food, housing, medical care, and heating? Not very hard 07/24/2024 PHQ-2 Answer Date Recorded PHQ-2 Total Score 0 01/01/2024 [facility] [place] of Occupat ional Health - Occupational Stress Questionnaire Answer Date Recorded Do you feel stress - tense, restless, nervous, or anxious, or unable to sleep at night because your mind is troubled all the time - these days? Only a little 07/24/2024 Exercise Vital Sign Answer Date Recorde d On average, how many days pe r week do you engage in moderate to strenuous exercise (like a brisk walk)? 0 days 07/24/2024 On average, how many minutes do you engage in exercise at this level? 0 min 07/24/2024 Hunger Vital Sign Answer Date Recorded Within the past 12 months, y ou worried that your food would run out before you got the money to buy more. Never true 07/25/19 25 Within the past 12 months, t he food you bought just didn't last and you didn't have money to get more. Never true 07/24/2024 PRAPARE - Transportation Answer Date Re corded In the past 12 months, has l ack of transportation kept you from medical appointments or from getting medications? No 07/10 In the past 12 months, has l ack of transportation kept you from meetings, work, or from getting things needed for daily living? No 07/24/2024 [facility] IP Transportation Answer D ate Recorded In the past 12 months, has l ack of reliable transportation kept you from medical appointments, meetings, work or from getting things needed for daily living? No 01/01/2024 Sex and Gender Information Value Date Recorded Sex Assigned at Not on file Legal Sex Male 6:46 PM EDT Gender Identity Not on file Sexual Orientation Not on file COVID-19 Exposure Response Date Recorded In the last 10 days, have yo u been in contact with someone who was confirmed or suspected to have Coronavirus/COVID-19? No / Unsure 08/18/2022 4:55 PM EDT documented as of this encounter Functional Status * Cognitive and Functional Status Question Answer Date of Assessment Author Is the person deaf or does h e/she have serious difficulty hearing? No 02/20/2023 5:25 PM Dianne Maddox RMA Is the person blind or does he/she have serious difficulty seeing even when wearing glasses? No 02/20/2023 5:25 PM Dianne Maddox R MA Does this person have seriou s difficulty walking or climbing stairs? No 02/20/2023 5:25 PM Dianne Maddox RMA Does this person have diffic ulty dressing or bathing? No 02/20/2023 5:25 PM Dianne Maddox RM A * Alcohol Screening Score Answer Date of Assessment Author 0 12/31/2023 6:58 PM EDT Allan Escobar RN * Drug Screening Score Answer Date of Assessment Author 0 12/31/2023 6:58 PM EDT Allan Escobar RN * Question Answer Date of Assessment Author How often do you have a drin k containing alcohol? 0 12/31/2023 6:58 PM NIEVEST Meron Escobar RN How many drinks containing a lcohol do you have on a typical day when you are drinking? 0 12/31/2023 6:58 PM EDT Meron Escobar RN How often do you have six or more drinks on one occasion? 0 12/31/2023 6:58 PM NIEVEST Wally Escobar RN AUDIT-C to Determine Rows 4-10 0 12/31/2023 6:58 PM EDT Meron Escobar RN * Question Answer Date of Assessment Author Little interest or pleasure in doing things 0 01/01/2024 1:34 PM EDT Blaine Sauceda RN Feeling down, depressed, or hopeless 0 01/01/2024 1:34 PM EDT Blaine Sauceda RN PHQ-2 Total Score 0 01/01/2024 1:34 PM EDT Blaine Sauceda RN * PHQ-9 Total Score Answer Date of Assessment Author 0 01/01/2024 1:34 PM NIEVEST Blaine Sauceda RN * Question Answer Date of Assessment Author Do you ever wish you weren't alive anymore? (Past 1 Month) 0 12/01/2019 4:10 PM Derick Gomez RN Have you thought about doing something to make youself not alive anymore? (Past 1 Month) 0 12/01/2019 4:10 PM Derick Gomez RN * Recent Risk Level: Answer Date of Assessment Author No Risk, Screening Complete 12/01/2019 4:10 PM Derick Smith RN * Suicide Severity Rating Answer Date of Assessment Author No Risk 12/31/2023 7:00 PM Tracie Howard RN * [place] Suicide Severity Rating Scale (Q shift for moderate and high) Question Answer Date of Assessment Author 1. In the past month, have y ou wished you were or wished you could go to sleep and not wake up? 0 12/31/2023 7:00 PM EDT Tracie Flowers RN 2. In the past month, have y ou actually had any thoughts of killing yourself? (If no, skip to question 6) 0 12/31/2023 7:00 PM EDT Tracie Peña RN 6. Have you ever done anythi ng, started to do anything, or prepared to do anything to end your life? 0 12/31/2023 7:00 PM EDT Tracie Peña RN documented as of this encounter Mental Status * Cognitive and Functional Status Question Answer Entry Date Author Because of a physical, menta l or emotional condition, does this person have difficulty doing errands alone such as visiting a doctor's office or shopping? No 02/20/2023 5:25 PM Dianne Maddox RMA Because of a physical, menta l or emotional condition, does this person have serious difficulty concentrating, remembering or making decisions? No 02/20/2023 5:25 PM EST Dianne Dai RMA documented in this encounter Plan of Treatment Not on file documented as of this encounter Goals Goal Patient Goal Type Associated Problems Recent Progress Patient-Stated? Author Blood Pressure < 140/90 Blood Pressure 150/80(2024 10:40 AM EDT) No Carlee Rose CMA BMI (Calculated) < 30 General 36.6(07/19/19 10:40 AM EDT) No Carlee Rose CMA Maintain a healthy diet, exercise regularly and maintain an ideal body weight General No Elza Mckeon RMA <Enter Goal> General No Allison Angel RN HEMOGLOBIN A1C < 7.0 Result Component 9.6( 2:26 PM EDT) No Carlee Rose CMA documented as of this encounter Visit Diagnoses Not on filedocumented in this encounter Additional Health Concerns Infection Onset Date Last Indicated Resolved Time R/O C-Diff 05/20/2021 05/20/2021 05/20/2021 3:39 PM EST documented as of this encounter Care Teams Customer Support Professional Relationship Specialty Start Date End Date Edgar Dodson MD [address] [place] [address] PCP - General 04/08/09 07/05/15 Elba Tapia, RN Health Advocate 10/21/13 5 documented as of this encounter
--- OUTSIDE RECORDS SUMMARY | 2018-05-20 10:35 | XMS_ITS | Encounter Summary ---
Author Organization [place] [address] Care Team Providers Care Head Of Academic Technology Name Role Phone Omi Daly DO Primary Care Provider [phone] Encounter Details Date Type Department Care Team (Latest Contact Info) Description 05/20/2018 11:35 AM EDT Hospital Encounter [facility] [address] [facility] [place] [address] Left without seen Social History Tobacco Use Types Packs/Day Years Used Date Smoking Tobacco: Never Smokeless Tobacco: Never Alcohol Use Standard Drinks/Week Comments No 0 (1 standard drink = 0.6 oz pur e alcohol) NO [facility] Utilities Answer Date Recorded In [...] Date Recorded PHQ-2 Total Score 0 01/01/2024 [facility] [place] of Occupat ional Health - Occupational Stress [...] things needed for daily living? No 07/24/2024 [facility] Transportation Answer D ate Recorded [...] 7:00 PM EDT Tracie Peña RN * [place] Suicide Severity Rating Scale (Q shift for [...] documented as of this encounter Care Teams Head Of Academic Technology Relationship Specialty Start Date End Date Omi Daly DO [address] [place] [address] PCP - General Family Medicine 07/06/15 06/14/20 documented as of this encounter
--- NOTE | 2025-01-23 | US_ITS ---
FINAL REPORT CLINICAL HISTORY: ABD PAIN FINDINGS: ULTRASOUND ABDOMEN There are fatty changes to the liver. Spleen has a normal sonographic appearance. There is cholelithiasis without acute gallbladder disease. No biliary ductal dilatation is identified. Kidneys show no evidence of mass or obstruction. Pancreas is not well visualized. IVC and aorta are grossly unremarkable. There is no obvious fluid collection. IMPRESSION: Cholelithiasis. Fatty liver. Reviewed, Interpreted and Dictated by Анна Vázquez MD Transcribed by Anita Granados Authenticated and . [facility]
--- OUTSIDE RECORDS SUMMARY | 2025-01-23 09:39 | XMS_ITS | Continuity of Care Document ---
Author Organization Joya Alfaro [facility] Address [address] [place] [address] Care Team Providers Care Improvement Lead Name Role Phone SAPPHIRE JIMÉNEZ Referring Provider [phone] Assessment No assessment recorded. Plan of Treatment Reminders Order Date Submit Date Provider Last Modified By Organization Details Last Modified Time Details Appointments None recorded. Lab CMP, serum or plasma 2024 025 RAJESH [facility], [address], [place], [place], [address], 5 08:12:50 C-peptide, serum 2024 025 RAJESH [facility], [address], [place] [address], [place], [address], 5 08:12:50 amylase + lipase, serum 2024 025 RAJESH [facility], [address], [address] [address], [place], [address], 5 08:12:50 Referral None recorded. Procedures None recorded. Surgeries None recorded. Imaging US, duplex, abdomen, complete 2024 025 [facility] [address], [place], [address], 5 17:58:50 Medication Orders None recorded. Patient TargetsNo targets recorded. Patient InstructionsNo instructions recorded. Reason for Referral None Reported. Results Created Date Observation Date Name Description Value Unit Range Abnormal Flag Note LastModifiedBy Organization Detail LastModifiedTime 01/21/20 25 01/21/2025 COMP. METAB OLIC PANEL (14) glucose 486 mg/dL 70-99 above high normal Not Available [facility] ([facility]) [address] [facility] [place], [address], 01/21/2025 08:12:50 01/21/20 25 01/21/2025 COMP. METAB OLIC PANEL (14) BUN 30 mg/dL 8-27 above high normal Not Available [facility] ([facility]) [address] [facility] [place], [address], 01/21/2025 08:12:50 01/21/20 25 01/21/2025 COMP. METAB OLIC PANEL (14) creatinine 1.79 mg/dL 0.76-1 .27 above high normal Not Available [facility] ([facility]) [address] [place], [address], 01/21/2025 08:12:50 01/21/20 25 01/21/2025 COMP. METAB OLIC PANEL (14) eGFR 40 mL/mi n/1.7 3 >59 below low normal Not Available [facility] ([facility]) [address] [place], [address], 01/21/2025 08:12:50 01/21/20 25 01/21/2025 COMP. METAB OLIC PANEL (14) BUN/creatini ne ratio 17 10-24 normal Not Available [facility] ([facility]) [address] [place], [address], 01/21/2025 08:12:50 01/21/20 25 01/21/2025 COMP. METAB OLIC PANEL (14) sodium 131 mmol/ L 134-14 4 below low normal Not Available [facility] ([facility]) [address] [place], [address], 01/21/2025 08:12:50 01/21/20 25 01/21/2025 COMP. METAB OLIC PANEL (14) potassium 5.5 mmol/ L 3.5-5. 2 above high normal Not Available [facility] ([facility]) [address] [facility] [place], [address], 01/21/2025 08:12:50 01/21/20 25 01/21/2025 COMP. METAB OLIC PANEL (14) chloride 97 mmol/ L 96-106 normal Not Available [facility] ([facility]) [address] [facility] [place], [address], 01/21/2025 08:12:50 01/21/20 25 01/21/2025 COMP. METAB OLIC PANEL (14) carbon dioxide, total 19 mmol/ L 20-29 below low normal Not Available [facility] ([facility]) [address] [facility] [place], [address], 01/21/2025 08:12:50 01/21/20 25 01/21/2025 COMP. METAB OLIC PANEL (14) calcium 9.6 mg/dL 8.6-10 .2 normal Not Available [facility] ([facility]) [address] [facility] [place], [address], 01/21/2025 08:12:50 01/21/20 25 01/21/2025 COMP. METAB OLIC PANEL (14) protein, total 5.9 g/dL 6.0-8. 5 below low normal Not Available [facility] ([facility]) [address] [facility] [place], [address], 01/21/2025 08:12:50 01/21/20 25 01/21/2025 COMP. METAB OLIC PANEL (14) albumin 4.1 g/dL 3.8-4. 8 normal Not Available [facility] ([facility]) [address] [facility] [place], [address], 01/21/2025 08:12:50 01/21/20 25 01/21/2025 COMP. METAB OLIC PANEL (14) globulin, total 1.8 g/dL 1.5-4. 5 Not Available [facility] ([facility]) [address] [place], [address], 01/21/2025 08:12:50 01/21/20 25 01/21/2025 COMP. METAB OLIC PANEL (14) bilirubin, total 0.4 mg/dL 0.0-1. 2 normal Not Available [facility] ([facility]) [address] [facility] [place], [address], 01/21/2025 08:12:50 01/21/20 25 01/21/2025 COMP. METAB OLIC PANEL (14) alkaline phosphatase 110 IU/L 47-123 normal Not Available [facility] ([facility]) [address] [facility] [place], [address], 01/21/2025 08:12:50 01/21/20 25 01/21/2025 COMP. METAB OLIC PANEL (14) AST (SGOT) 11 IU/L 0-40 normal Not Available [facility] ([facility]) [address] [place] [place], [address], 01/21/2025 08:12:50 01/21/20 25 01/21/2025 COMP. METAB OLIC PANEL (14) ALT (SGPT) 15 IU/L 0-44 normal Not Available [facility] ([facility]) [address] [facility] [place], [address], 01/21/2025 08:12:50 01/21/20 25 01/21/2025 LEONIE+L IPASE amylase 23 U/L 31-110 below low normal Not Available [facility] ([facility]) [address] [facility] [place], [address], 01/21/2025 08:12:50 01/21/20 25 01/21/2025 LEONIE+L IPASE lipase 42 U/L 13-78 normal Not Available [facility] ([facility]) [address] [facility], [place], [address], 01/21/2025 08:12:50 01/21/20 25 01/21/2025 INSUL IN AND C-PEP TIDE, SERUM insulin 24.4 uIU/m L 2.6-24 .9 normal Not Available [facility] ([facility]) [address] [facility], [place], [address], 01/21/2025 08:12:50 01/21/20 25 01/21/2025 INSUL IN AND C-PEP TIDE, SERUM C-peptide, serum 9.1 NG/mL 1.1-4. 4 above high normal C-Pep tide refer ence inter anish is for fasti ng patie nts. Not Available [facility] ([facility]) [address] [facility], [place], [address], 01/21/2025 08:12:50 01/07/20 25 01/06/2025 elect ebenezer rodriguez am No observ ation record ed. [address], [place], [address], 01/06/2025 16:17:14 01/08/20 25 01/07/2025 XR, lumbo sacra l spine , 2 or 3 view No observ ation record ed. [address], [place], [address], 01/12/2025 11:19:20 01/21/20 25 01/20/2025 MRI, lumba r spine , w/o contr ast No observ ation record ed. [place] [address], [place], [address], 01/22/2025 08:13:54 Result Notes None recorded. Problems Name Problem SNOMED Code Status Onset Date Resolution Date Notes Provider Name and Address Organization Details Recorded Time Type 2 diabetes mellitus 60371811 Active [place] - [facility] 08:29:25 Hyperlipidemi a 49150664 Active Sandra navarro, [place] - [facility] 5 08:29:50 Gastroesophag eal reflux disease 954485668 Active [place] - [facility] 5 08:30:21 Arteriosclero sis of coronary artery bypass graft 182009193 Active Sandra navarro, [place] - [facility] 5 08:31:20 Chronic systolic heart failure 029285475 Active 2024 Darron Nice, [employer] [address], [place], [address] , [place] - [facility] 5 08:53:26 Hyperparathyr oidism 23457416 Active 2024 Darron Nice, [employer]CEIV[employer] SPECIALIST [address], [place], [address] , [facility] - [facility] 5 16:39:10 Problem Notes None recorded. Procedures Surgical History Date Name Laterality Status Provider Name and Address Organization Details Recorded Time Advance Care Planning completed Sandra Brink [place] - [facility] 10/28/2024 14:00:58 Functional Status Assessed completed Sandra Brink [facility] 10/28/2024 14:00:58 Imaging Results None recorded. Procedure Notes None recorded. Medical Equipment None Reported. Allergies Allergen ID Allergen Name Allergen Category Reaction Reaction Severity Criticality Documentation Date Start Date Code Code System Note Provider Name and Address Organization Details Recorded Time 938358 insulin aspart, human medicatio n other moderate high 06/30/2024 87669 RxNorm state s any insul in at any dose drops his gluco se too much [place] - [facility] 5 08:24:14 748329 naproxen medicatio n abdominal pain moderate high [...] Not Available Not Available No t Available sodium polystyre ne sulfonate 15 gram-sorb itol 20 gram/60 mL oral susp Take 60 mL every day by oral route. 2024 active Not Available Not Available Not Avai lable Accu-Chek Guide test strips Take 1 strip [...] BY TOPICAL ROUTE 4 TIMES PER DAY 07/17/ 2025 active Not Available Not Available Not Avai lable Vitals Date Recorded Body height Body mass index (BMI) Body weight Body temperature Oxygen saturation Oxygen saturation in Arterial blood by Pulse oximetry Respiratory rate Pain severity - 0-10 verbal numeric rating [Score] - Reported Heart rate Systolic And Diastolic Provider Name and Address Organization Details Last Updated DateTime 5 175.26 cm 35.6 kg/m2 337115. 46 g 98.1 [degF] 97 % 97 [...] Or The Highest Degree You Have Received? [id number] Information not available 06/30/2024 Have There Been Any Changes To Your Family Or Social Situation? No Information no t available 06/30/2024 What Is The Fluoride Status Of Your Home? Fluoridated Information not available 06/30/2024 Have You Recently Or Are You Planning To Travel To An Area With Zika Virus? No Information not available 06/30/2024 Do You Have A Medical Power Of System Engineer? No Information not available 06/30/2024 What Was [...] Functional Status Question Answer Note LastModified by [employer] ion Details LastModified Time Do you use [...] anxious, or unable to sleep at night)? GL44991-5 Information not available 06/30/2024 Do you have difficulty concentrating, remembering or making decisions? No Information no t available 06/30/2024 Family History Nothing Reported. Medical History No medical history recorded. Immunizations Vaccine Type Date Status Note Provider Name and Address Organization Details Recorded Time Tdap 10/27/19 18 completed Not Available [facility] 01/20/2025 10:03:35 Influenza, high-dose, trivalent, PF 01/26/20 19 completed Not Available [facility] 01/20/2025 10:03:35 Influenza, split virus, trivalent, preservative 10/29/19 25 cancelled patient objection Darron Nice APRN [address], [place], [address], [place] - [facility] 10/28/2024 14:24:18 zoster recombinant 10/29/19 25 cancelled patient objection Darron Nice APRN [address], [place], [address], [facility] - [facility] 10/28/2024 14:24:18 Past Encounters Encounter ID Performer Location Encounter Start Date Encounter Closed Date Diagnosis/Indication Diagnosis SNOMED-CT Code Diagnosis ICD10 Code Diagnosis IMO Codes Diagnosis Note [id number] Darron Nice APRN [address] [address] 01/06/2025 13:54:25 01/06/2025 15:16:17 Chest pain 62665887 R07.9 [id number] spoke with tiffanie, see tiffanie tomorrow at 9 amif pain returns or worsen return Chronic low back pain 27 5631910 M54.50 G89.29 72131472 voltaren- allergy to naproxen- 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 Type 2 wilton betes mellitus 22359864 E11.9 Z79.4 47714123 stop metformini ncrease lantus to 38 unitskeep log return in 2 weeks with log [id number] Darron Nice APRN [facility] [address] [place] [address] 01/20/2025 10:03:17 01/20/2025 11:23:11 Type 2 diabetes mellitus 42446246 E11.9 Z79.4 65570347 stop metformini ncrease lantus to 45 units, continue to increase lantus by 2 units if adv glucose over 200.if cre improved will restart metformin, if not will start trajenta and refer to endo.keep log return in 2 weeks with log Arterioscl erosis of coronary artery bypass graft 251722994 I25.810 47520117 Uncontroll ed type 2 diabetes mellitus 834254450 E11.65 91233905 stop metforminp t refuses glp1,insul in,jardian ce,insulin pump at this timeincrea se lantus to 45 unitskeep log return in 2 weeks with log Right lowe r quadrant pain 767615214 R10.31 [id number] Health Concerns Section Related Observation LastModified by Organization Detai ls LastModified Time None Recorded Concern Status LastModified by Organization Details LastModified Time None Recorded Payers Encounter Date Sequence Insurance Name Policy Number Policy Lacy Covered Member ID Lacy Member ID Guarantor Name 01/20/2025 1 [employer] - [employer]US (MEDICARE REPLACEMENT/A DVANTAGE - HMO) Ovi Escobar [id number] Ovi Escobar Notes Date Note Type Note [...] time Darron Nice APRN [address], [place], [address], [place] - [facility] 01/20/2025 11:19:44
--- OUTSIDE RECORDS SUMMARY | 2025-01-23 09:39 | XMS_ITS | Encounter Summary ---
Author Organization [place] [address] Care Team Providers Care Kiln Tester Name Role Phone Renato Rey DO, Viral Primary Care Provider [phone] Ariana Munguia MD Unavailable [phone] Reason for Visit * Reason Comments Medication Refill Encounter Details Date Type Department Care Team (Late st Contact Info) Description 01/18/2025 [facility]ill [facility] [address] [place] [address] Carlos A Gross DO [address] [place] [address] Medication Refill Social History Tobacco Use Types Packs/Day Years Used Date Smoking Tobacco: Never Smokeless Tobacco: Never Alcohol Use Standard Drinks/Week Comments No 0 (1 standard drink = 0.6 oz pur e alcohol) NO [facility] Utilities Answer Date Recorded In the past 12 months has [employer], gas, oil, or water [employer] threatened to shut off services in your home? No 01/01/2024 Overall Financial Resource Strain (CARDIA) Answe r Date Recorded How hard is it for you to pa y for the very basics like food, housing, medical care, and heating? Not very hard 07/24/2024 PHQ-2 Answer Date Recorded PHQ-2 Total Score 0 01/01/2024 [facility] [place] of Occupat ional Health - Occupational Stress [...] things needed for daily living? No 07/24/2024 [facility] IP Transportation Answer D ate Recorded [...] documented as of this encounter Care Teams Kiln Tester Relationship Specialty Start Date End Date Carlos A Gross DO [address] [place] [phone] PCP - General Family Medicine 06/15/20 Ariana Munguia MD [address] [place] [id number] Internal Medicine-Cardiovascular Disease 04/11/22 documented as of this encounter
--- OUTSIDE RECORDS SUMMARY | 2025-01-23 09:39 | XMS_ITS | Encounter Summary ---
Author Organization [place] [address] Care Team Providers Care Cordage Sales Representative Name Role Phone Renato Rey DO, Viral Primary Care Provider [phone] Ariana Munguia MD Unavailable [phone] Reason for Visit * Reason Onset Date Comments CM- Telephonic Outreach 12/17/2024 CM-Medication Assistance 12/17/2024 Encounter Details Date Type Department Care Team (Late st Contact Info) Description 12/17/2024 Patient Outreach [address] [address] Allison Angel, JAMISON CM- Telephonic Outreach; CM-Medication Assistance Social History Tobacco Use Types Packs/Day Years Used Date Smoking Tobacco: Never Smokeless Tobacco: Never Alcohol Use Standard Drinks/Week Comments No 0 (1 standard drink = 0.6 oz pur e alcohol) NO [facility] Utilities Answer Date Recorded In the past 12 months has [employer], gas, oil, or water [employer] threatened to shut off services in your home? No 01/01/2024 Overall Financial Resource Strain (CARDIA) Answe r Date Recorded How hard is it for you to pa y for the very basics like food, housing, medical care, and heating? Not very hard 07/24/2024 PHQ-2 Answer Date Recorded PHQ-2 Total Score 0 01/01/2024 [facility] [place] of Occupat ional Health - Occupational Stress [...] things needed for daily living? No 07/24/2024 [facility] IP Transportation Answer D ate [...] shipment of medication Lantus is ready for pick up attendant. Advised to pick up attendant as soon as possible as refrigerator space [...] documented as of this encounter Care Teams Cordage Sales Representative Relationship Specialty Start Date End Date Carlos A Gross DO [address] [place] [phone] PCP - General Family Medicine 06/15/20 Ariana Munguia MD [address] [place] [id number] Internal Medicine-Cardiovascular Disease 04/11/22 documented as of this encounter
--- OUTSIDE RECORDS SUMMARY | 2025-01-23 09:39 | XMS_ITS | Encounter Summary ---
Author Organization [place] [address] Care Team Providers Care Compliance And Control Analyst Name Role Phone Renato Rey DO, Viral Primary Care Provider [phone] Ariana Munguia MD Unavailable Reason for Visit * Reason Onset Date Comments Follow Up 12/12/2024 [email or web address] Encounter Details Date Type Department Care Team (Late st Contact Info) Description 12/12/2024 Telephone [facility] [address] [place] [address] Carlos A Gross DO [address] [place] [address] Follow Up (lantus) Social History Tobacco Use Types Packs/Day Years Used Date Smoking Tobacco: Never Smokeless Tobacco: Never Alcohol Use Standard Drinks/Week Comments No 0 (1 standard drink = 0.6 oz pur e alcohol) NO [facility] Utilities Answer Date Recorded In the [...] Date Recorded PHQ-2 Total Score 0 01/01/2024 [facility] [place] of Occupat ional Health - Occupational Stress [...] things needed for daily living? No 07/24/2024 [facility] IP Transportation Answer D ate Recorded [...] will need to enroll with doctor at [facility] for 2025 enrollment with [employer]. * Telephone Encounter - Meron Palma - [...] documented as of this encounter Care Teams Compliance And Control Analyst Relationship Specialty Start Date End Date Carlos A Gross DO [address] [place] [phone] PCP - General Family Medicine 06/15/20 Ariana Munguia MD [address] [place], [place] [id number] Internal Medicine-Cardiovascular Disease 04/11/22 documented as of this encounter
--- OUTSIDE RECORDS SUMMARY | 2025-01-23 09:39 | XMS_ITS | Encounter Summary ---
Author Organization [place] [address] Care Team Providers Care Court Officer Name Role Phone Renato Rey DO, Viral Primary Care Provider [phone] Ariana Munguia MD Unavailable [phone] Reason for Visit * Reason Comments Medication Refill Encounter Details Date Type Department Care Team (Late st Contact Info) Description 12/28/2024 Refill [facility] [address] [place] [address] Carlos A Gross DO [address] [place] [address] Medication Refill Social History Tobacco Use Types Packs/Day Years Used Date Smoking Tobacco: Never Smokeless Tobacco: Never Alcohol Use Standard Drinks/Week Comments No 0 (1 standard drink = 0.6 oz pur e alcohol) NO [facility] Utilities Answer Date Recorded In the past 12 months has [employer], gas, oil, or water [employer] threatened to shut off services in your home? No 01/01/2024 Overall Financial Resource Strain (CARDIA) Answe r Date Recorded How hard is it for you to pa y for the very basics like food, housing, medical care, and heating? Not very hard 07/24/2024 PHQ-2 Answer Date Recorded PHQ-2 Total Score 0 01/01/2024 [facility] [place] of Occupat ional Health - Occupational Stress [...] things needed for daily living? No 07/24/2024 [facility] IP Transportation Answer D [...] documented as of this encounter Care Teams Court Officer Relationship Specialty Start Date End Date Carlos A Gross DO [address] [place] [phone] PCP - General Family Medicine 06/15/20 Ariana Munguia MD [address] [place] [id number] Internal Medicine-Cardiovascular Disease 04/11/22 documented as of this encounter
--- OUTSIDE RECORDS SUMMARY | 2025-01-23 09:42 | XMS_ITS | Continuity of Care Document ---
Author Organization [facility] Address [address] [place] [address] Phone Care Team Providers Care Funeral Prearrangement Counselor Name Role Phone Gross V, DO, Viral Primary Care Provider [phone] Sapphire Munguia MD Unavailable [phone] Encounters Date Type Department Care Team Description 01/19/20 25 Refill [facility] [place] [address] [address] Gross, Viral V, DO Medication Refill 12/29/19 25 Refill [facility] [place] [address] [address] Gross, Viral V, DO Medication Refill 12/18/19 25 Patient Outreach SE[facility] [address] [address] Allison Angel, RN CM- Telephonic Outreach; CM-Medication Assistance 12/13/19 25 Telephone [facility] [place] [address] [address] Gross, Viral V, DO Follow Up (lantus) 11/16/19 25 Refill [facility] [place] [address] [address] Gross, Viral V, DO Medication Refill 11/05/19 25 Refill [facility] [place] [address] [place] [address] Gross, Viral V, DO Medication Refill 11/04/19 [address] [address] Gross, Viral V, DO Refill (metFORMIN (GLUCOPHAGE XR) 500 mg Oral ER 24 hr tablet ) 10/17/19 [address] [address] Gross, Viral V, DO Medication Refill 10/16/19 [address] [address] Gross, Viral V, DO Medication Management (Lantus ) 10/08/19 25 Refill [facility] [place] [address] [place] [phone] Sapphire Munguia MD Medication Refill 10/01/19 25 Refill [facility] [place] [address] [place] [address] Rd [address] [place] [phone] Sapphire Munguia MD Medication Refill 09/19/19 [address] [address] Gross, Viral V, DO Medication Refill 09/03/19 25 12:30 PM EDT Clinical Support [address] [address] Allison Angel RN Uncontrolled type 2 diabetes mellitus with hyperglycemia (HCC) (Primary Dx); CHF (congestive heart failure), NYHA class I, acute on chronic, combined (HCC); Enrolled in chronic care management 09/03/19 25 Refill [facility] [place] [address] [place] [address] Abel Hernandez MD Medication Refill 08/28/19 25 Orders Only [facility] [address] [place] [address] Gross, Viral V, DO Screening for cancer of the rectum; Screen for colon cancer 08/20/19 25 Refill [facility] [place] [address] [place] [address] Abel Hernandez MD Medication Refill 08/09/19 25 Telephone [facility] [place] [address] [place] [address] Gross, Viral V, DO Medication Management (pt needing med from office) 07/29/19 25 Patient Outreach [facility] [place] [place] [address] Allison Angel, RN CM- Telephonic Outreach; CM-Medication Assistance 07/25/19 8:30 AM EDT Clinical Support [facility] [place] [facility] [address] [facility] [place] [address] Allison Angel, JAMISON Uncontrolled type 2 diabetes mellitus with hyperglycemia (HCC) (Primary Dx); CHF (congestive heart failure), NYHA class I, acute on chronic, combined (HCC); Enrolled in chronic care management 07/19/19 11:30 AM EDT - 07/19/19 11:59 PM EDT Hospital Encounter [facility] [place] [place] [address] Stage 3a chronic kidney disease (HCC); Vitamin D deficiency; Chronic kidney disease-mineral and bone disorder Discharge Disposition: Home or Self Care 07/19/19 10:30 AM EDT Office Visit [facility] [address] [place] [address] Abel Hernandez MD Stage 3a chronic kidney disease (HCC) (Primary Dx); Chronic kidney disease-mineral and bone disorder; HTN (hypertension), benign 07/09/19 25 Refill [facility] [place] [place] [address] Renato Viral V, DO Medication Refill 07/08/19 25 1:15 PM EDT Clinical Support [facility] [place] [address] [place] [address] Allison Angel, RN Uncontrolled type 2 diabetes mellitus with hyperglycemia (HCC) (Primary Dx); CHF (congestive heart failure), NYHA class I, acute on chronic, combined (HCC); Enrolled in chronic care management 07/06/19 25 Refill [facility] [place] [address] [facility] [address] [place] [address] Sapphire Munguia MD Medication Refill 07/03/19 25 Refill [facility] [place] [facility] [address] [facility] [place] [address] Gross, Viral V, DO Medication Refill 06/28/19 25 Telephone [facility] [place] [address] [facility] [place] [address] Gross, Viral V, DO Other (bw orders needing faxed) 06/27/19 25 Refill [facility] [address] [place] [address] Omi Daly, DO Medication Refill 06/27/19 25 Refill SEP [address] [place] [address] Gross, Viral V, DO Medication Refill 06/26/19 25 Refill SEP [address] [place] [address] Oswaldo Harry MD Medication Refill 06/21/19 25 Telephone [facility] [place] [address] [place] [phone] Sapphire Munguia MD Patient Question (Pt returning your call) 06/17/19 25 4:40 PM EDT [facility] [address] [facility] [place] [address] Oswaldo Harry MD Acute bacterial sinusitis (Primary Dx) 06/17/19 25 Refill [facility] [place] [place] [address] Gross, Viral V, DO Medication Refill 06/12/19 25 Refill [facility] [address] [facility] [place] [address] Gross, Viral V, DO Medication Refill 06/06/19 Telephone [facility] [place] [place] [address] Gross, Viral V, DO Other (med ) 06/06/19 11:15 AM EDT Clinical Support [facility] [place] [place] [address] Allison Angel RN Uncontrolled type 2 diabetes mellitus with hyperglycemia (HCC) (Primary Dx); CHF (congestive heart failure), NYHA class I, acute on chronic, combined (HCC); Enrolled in chronic care management 05/29/19 Patient Outreach [address] [place] [address] Allison Angel RN CM- Telephonic Outreach; CM-Medication Assistance (Lantus) 05/21/19 4:30 PM EDT Office Visit [facility] [place] [place] [address] Gross, Viral V, DO Uncontrolled type 2 diabetes mellitus with hyperglycemia (HCC) (Primary Dx); Pure hypercholesterolemia; Seasonal allergic rhinitis due to pollen; Acute bronchitis, unspecified organism; Facial rash 05/17/19 Telephone [facility] [place] [place] [address] Gross, Viral V, DO Refill (clobetasol) 05/08/19 [address] [address] Gross, Viral V, DO Medication Refill 05/06/19 10:15 AM EST Office [place] [address] Sapphire Munguia MD ASHD (arteriosclerotic heart disease) (Primary Dx); Dyslipidemia associated with type 2 diabetes mellitus (HCC); S/P CABG x 3 05/05/19 Patient Outreach [address] [place] [address] Allison Angel RN CM- Telephonic Outreach; CM-Medication Assistance 05/01/19 25 Refill [facility] [place] [address] Renato Viral V, DO Medication Refill 04/22/19 25 Telephone [facility] [place] [address] Renato Viral V, DO Medication Management ( Disp Refills Start End /insulin glargine (LANTUS SOLOSTAR U-100 INSULIN) 100 unit/mL (3 mL) SubQ Insulin Pen - - 12/19/2023 - /Sig - Route: Subcutaneous (Inject under the skin) 15 Units nightly. - Subcutaneous //) 04/16/19 25 Telephone [facility] [place] [phone] Sapphire Munguia MD Cardiology Clearance 04/15/[address] [address] Dianne Dai RMA Forms 04/08/19 25 1:00 PM EST [facility] [address] Carlos A Gross V, DO Tinea corporis (Primary Dx); Acute on chronic systolic congestive heart failure (HCC); Class 2 severe obesity due to excess calories with serious comorbidity and body mass index (BMI) of 35.0 to 35.9 in adult ([facility]); Stage 3b chronic kidney disease ([facility]); 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, unspecified whether fci insulin use (HCC) 04/06/19 [address] [address] Carlos A Gross V, DO Medication Refill 03/17/19 25 9:00 AM EST Clinical Support [address] [address] Allison Angel RN Uncontrolled type 2 diabetes mellitus with hyperglycemia ([facility]) (Primary Dx); CHF (congestive heart failure), NYHA class I, acute on chronic, combined ([facility]); Enrolled in chronic care management 03/01/20 24 Refill [facility] [place] [address] [facility] [place] [address] Gross, Viral V, DO Medication Refill 02/15/20 24 Telephone [facility] [place] [facility] [address] [place] [address] Gross, Viral V, DO Results (X-Ray) 02/13/20 24 2:11 PM EST - 02/13/20 24 11:59 PM EST Hospital Encounter [facility] [address] [place] [address] Fluid retention in legs; CHF (congestive heart failure), NYHA class I, acute on chronic, combined (HCC); Acute on chronic systolic congestive heart failure (HCC) Discharge Disposition: Home or Self Care 02/13/20 2:40 PM EST Office Visit [facility] [place] [place] [address] Gross, Viral V, DO Fluid retention in legs (Primary Dx); CHF (congestive heart failure), NYHA class I, acute on chronic, combined (HCC); Acute on chronic systolic congestive heart failure (HCC); Well adult exam 02/13/20 24 9:00 AM EST Clinical Support [facility] [place] [place] [address] Allison Angel RN Uncontrolled type 2 diabetes mellitus with hyperglycemia ([facility]) (Primary Dx); CHF (congestive heart failure), NYHA class I, acute on chronic, combined (HCC) 02/11/20 24 8:31 AM EST - 02/11/20 24 11:59 PM EST Hospital Encounter [facility] [place] [facility] [address] [facility] [place] [address] CHF (congestive heart failure), NYHA class I, acute on chronic, combined (HCC) Discharge Disposition: Home or Self Care 02/01/20 24 Orders Only [facility] [place] [address] [facility] [place] [address] Juan Carlos Su MA CHF (congestive heart failure), NYHA class I, acute on chronic, combined (HCC) (Primary Dx) 01/31/20 24 Telephone [facility] [place] [address] [place] [address] Gross, Viral V, DO Medication Management (Lasix) 01/24/20 24 Refill [facility] [place] [address] [facility] [place] [address] Gross, Viral V, DO Medication Refill 01/22/20 24 Patient Outreach [facility] [address] Appoint[place] [address] Sasha Messer RN CM-Medication Assistance 01/14/20 10:10 AM EST Office Visit [facility] [place] [address] [place] [address] Gross, Viral V, DO Seasonal allergic rhinitis due to pollen (Primary Dx); CHF (congestive heart failure), NYHA class I, acute on chronic, combined (HCC); Acute bronchitis, unspecified organism 01/14/20 24 9:00 AM EST Clinical Support [facility] [place] [address] [place] [address] [place], JAMISON Uncontrolled type 2 diabetes mellitus with hyperglycemia (HCC) (Primary Dx); CHF (congestive heart failure), NYHA class I, acute on chronic, combined (HCC) 01/08/20 24 10:30 AM EDT Clinical Support [facility] [place] [address] [place] [address] Allison Angel, RN Uncontrolled type 2 diabetes mellitus with hyperglycemia (HCC) (Primary Dx); CHF (congestive heart failure), NYHA class I, acute on chronic, combined (HCC) 01/04/20 24 Patient Outreach [facility] [address] Appoint[place] [address] Nicki Michelle Referral 01/04/20 Patient Outreach [facility] [address] App[place] [address] Makenzie Mullen, JAMISON Hospital Follow Up; Care Transition; CM-Resource Coordination 01/04/20 Patient Outreach [facility] [address] Appointment Location May Differ [place] [id number] Cande Petty, JAMISON Hospital Follow Up 01/04/20 11:20 AM EDT Office Visit [facility] [place] [facility] [address] [place] [address] Gross, Viral V, DO CHF (congestive heart failure), NYHA class I, acute on chronic, combined (HCC) (Primary Dx); Acute on chronic systolic congestive heart failure (HCC); Stage 3 chronic kidney disease, unspecified whether stage 3a or 3b CKD (HCC) 01/04/20 10:45 AM EDT Office Visit [facility] [place] [address] [place] [address] Abel Hernandez MD Stage 3a chronic kidney disease (HCC) (Primary Dx); Chronic kidney disease-mineral and bone disorder 12/31/19 7:05 PM EDT - 01/03/20 11:44 AM EDT Hospital Encounter [facility] [address] [address] [place], [place] [id number] Momo Castellanos MD CHF (congestive heart failure), NYHA class I, acute on chronic, combined (HCC) Discharge Disposition: Home or Self Care 01/01/20 Orders Only [facility] [place] [address] [place] [address] Abel Hernandez MD Stage 3a chronic kidney disease (HCC) (Primary Dx); Vitamin D deficiency 12/31/19 Travel 12/31/19 12:30 PM EDT - 12/31/19 5:52 PM EDT Emergency [facility] [address] [place] [address] Sixto Jose MD Cho, Soung H, MD Acute on chronic systolic congestive heart failure (HCC) (Primary Dx) Discharge Disposition: Still a Patient 12/31/19 Telephone [facility] [place] [address] [place] [address] Gross, Viral V, DO 911/Red Flag (Severely sob) 12/25/19 24 Telephone [facility] [place] [address] Gross, Viral V, DO Results 12/24/19 12:54 PM EDT - 12/24/19 11:59 PM EDT Hospital Encounter [facility] [address] [place] [id number] Emg, Akbar Edg Peripheral polyneuropathy (Primary Dx); Numbness and tingling of left arm and leg; Numbness and tingling of right arm and leg; Generalized osteoarthritis of multiple sites; Left carpal tunnel syndrome Discharge Disposition: Home or Self Care 12/19/19 24 Orders Only [facility] [place] [address] Gross, Viral V, DO Stage 3 chronic kidney disease, unspecified whether stage 3a or 3b CKD (HCC) (Primary Dx); Uncontrolled type 2 diabetes mellitus with hyperglycemia (HCC) 12/12/19 24 2:25 PM EDT - 12/12/19 24 11:59 PM EDT Hospital Encounter [facility] [address] [place] [address] Uncontrolled type 2 diabetes mellitus with hyperglycemia (HCC); Gastroesophageal reflux disease with esophagitis, unspecified whether hemorrhage; CHF (congestive heart failure), NYHA class I, acute on chronic, combined (HCC) Discharge Disposition: Home or Self Care 12/12/19 24 Telephone [facility] [place] [address] Gross, Viral V, DO Results (Chest xray) 12/11/19 24 3:41 PM EDT - 12/11/19 24 11:59 PM EDT Hospital Encounter [facility] [address] [place] [address] CHF (congestive heart failure), NYHA class I, acute on chronic, combined (HCC) Discharge Disposition: Home or Self Care 12/11/19 24 2:00 PM EDT [facility] [address] Allison Angel, RN Uncontrolled type 2 diabetes mellitus with hyperglycemia ([facility]) (Primary Dx); CHF (congestive heart failure), NYHA class I, acute on chronic, combined (HCC) 12/11/19 24 1:40 PM EDT Office Visit [facility] [address] [facility] [place] [address] Gross, Viral V, DO CHF (congestive heart failure), NYHA class I, acute on chronic, combined (HCC) (Primary Dx); Uncontrolled type 2 diabetes mellitus with hyperglycemia (HCC); Gastroesophageal reflux disease with esophagitis, unspecified whether hemorrhage 12/10/19 24 Refill [facility] [place] [facility] [address] [facility] [place] [address] Gross, Viral V, DO Medication Refill 12/09/19 24 Refill [facility] [place] [place] [address] Gross, Viral V, DO Medication Refill 12/03/19 24 Refill SE[facility] [address] [place] [address] Gross, Viral V, DO Medication Refill 11/28/19 24 2:00 PM EDT Ancillary Procedure [facility] [place] [place] [address] Numbness and tingling of lef t arm and leg; Numbness and tingling of right arm and leg; Generalized osteoarthritis of multiple sites 11/28/19 24 Abstract [facility] [place] [facility] [address] [facility] [place] [address] Dianne Dai RMA 11/28/19 24 Refill [facility] [address] [facility] [place] [address] Gross, Viral V, DO Medication Refill 11/28/19 24 1:30 PM EDT [facility] [address] [facility] [place] [address] Allison Angel, RN Uncontrolled type 2 diabetes mellitus with hyperglycemia ([facility]) (Primary Dx); CHF (congestive heart failure), NYHA class I, acute on chronic, combined (HCC) 11/28/19 24 1:20 PM EDT Office Visit [address] [address] Renato, Viral V, DO Generalized osteoarthritis of multiple sites (Primary Dx); Numbness and tingling of left arm and leg; Numbness and tingling of right arm and leg 11/26/19 [address] [address] Renato, Viral V, DO Other (/ Disp Refills Start End /insulin glargine (LANTUS SOLOSTAR U-100 INSULIN) 100 unit/mL (3 mL) SubQ Insulin Pen 15 mL 11 08/17/2023 - / //) 11/24/19 [address] [address] Renato Viral V, DO Medication Refill 11/19/19 [address] [address] Renato Viral V, DO Refill ( Disp Refills Start End /Insulin Josephine, Disposable, (SALENA PEN NEEDLE) 32 gauge x 5/32 Misc Needle 100 Each 11 08/20/2023 - /Sig: Use as directed with insulin //) 11/06/19 24 9:30 AM EDT Office Visit [facility] [address] [address] Sapphire Munguia MD ASHD (arteriosclerotic heart disease) (Primary Dx); Dyslipidemia associated with type 2 diabetes mellitus (HCC); Ischemic heart disease; S/P CABG x 3 11/02/19 [address] [address] Renato Viral V, DO Refill (fexofenadine-med pended) 11/02/19 24 Telephone [facility] [address] [phone] Sapphire Munguia MD Appointment Needed 10/31/19 24 9:22 AM EDT - 11/01/19 24 3:28 PM EDT Hospital Encounter [facility] [place] [id number] Sapphire Munguia MD Coronary artery disease due to calcified coronary lesion; Abnormal coronary angiogram; Uncontrolled type 2 diabetes mellitus with hyperglycemia (HCC) Discharge Disposition: Home or Self Care 10/31/19 24 12:00 PM EDT - 10/31/19 24 2:00 PM EDT Surgery [facility] [employer] [facility] [place] [address] Sapphire Munguia MD CORONARY ANGIOGRAM / CARDIAC CATHETERIZATION 10/30/19 24 8:43 AM EDT - 10/30/19 24 11:59 PM EDT Hospital Encounter [facility] [place] [facility] [address] [place] [address] Discharge Disposition: Home or Self Care 10/27/19 24 Refill [facility] [place] [facility] [address] [place] [address] Gross, Viral V, DO Medication Refill 10/25/19 24 Telephone [facility] [place] [address] [place] [address] Sapphire Munguia MD Tingling 10/24/19 24 Refill [facility] [place] [address] [place] [address] Dianne Dai RMA Medication Refill 10/23/19 24 Refill [facility] [place] [facility] [address] [place] [address] Edith Oropeza APRN Medication Refill 10/22/19 24 Telephone [facility] [address] [address] Sapphire Munguia MD Prior Authorization (denial received ) 10/17/19 24 Orders Only [facility] [address] [address] Sapphire Munguia MD Coronary artery disease involving makah heart without angina pectoris, unspecified vessel or lesion type (Primary Dx); Other forms of angina pectoris (HCC) 10/16/19 24 Telephone [facility] [address] [address] Sapphire Munguia MD Procedure 10/01/19 24 Travel 10/01/19 24 9:00 AM EDT - 10/01/19 24 10:30 AM EDT Surgery [employer] [facility] [place] [address] Sapphire Munguia MD CORONARY ANGIOGRAM WITH GRAFTS / CARDIAC CATHETERIZATION 10/01/19 24 6:34 AM EDT - 10/01/19 24 12:20 PM EDT Hospital Encounter [facility] CARD CATH REC [facility] [place] [address] Sapphire Munguia MD Other forms of angina pectoris (HCC); SOB (shortness of breath); ASHD (arteriosclerotic heart disease) Discharge Disposition: Home or Self Care 09/29/19 24 9:25 AM EDT - 09/29/19 24 11:59 PM EDT Hospital Encounter [facility] [place] [address] [place] [address] Dyslipidemia associated with type 2 diabetes mellitus (HCC); Coronary artery disease involving makah heart without angina pectoris, unspecified vessel or lesion type; S/P CABG x 3; SOB (shortness of breath); Chest pain, unspecified type Discharge Disposition: Home or Self Care 09/27/19 [address] [address] Paula Bourgeois, General Medical Practitioner Other (Returning Patient) 09/23/19 24 Refill [facility] [place] [facility] [address] [place] [address] Gross, Viral V, DO Medication Refill 09/21/19 24 Telephone [facility] [place] [facility] [address] [place] [address] Gross, Viral V, DO 911/Red Flag (chest pain w/ SOB) 09/20/19 24 Orders Only [facility] [address] [address] Sapphire Munguia MD Coronary artery disease involving makah heart without angina pectoris, unspecified vessel or lesion type (Primary Dx); S/P CABG x 3; SOB (shortness of breath); Chest pain, unspecified type 09/20/19 24 11:30 AM EDT [facility] [address] [address] He Pineda APRN Dyslipidemia associated with type 2 diabetes mellitus (HCC) (Primary Dx); Coronary artery disease involving makah heart without angina pectoris, unspecified vessel or lesion type; Uncontrolled type 2 diabetes mellitus with hyperglycemia (HCC); Ventricular bigeminy; S/P CABG x 3; SOB (shortness of breath); Occlusion of left vertebral artery; Ischemic heart disease; Pure hypercholesterolemia; Other specified hypotension; CHF (congestive heart failure), NYHA class I, acute on chronic, combined (HCC) 09/19/19 24 Telephone [place] [id number] [address] [phone] Lyle Solo MD Results 09/18/19 24 Refill [facility] [address] [place] [address] Edith Oropeza APRN Medication Refill 09/18/19 24 10:20 AM EDT Ancillary [facility] [address] [facility] [address] [place] [address] Paula Munguia PA DDD (degenerative disc disease), lumbar 09/18/19 24 11:00 AM EDT [facility] [address] [facility] [address] [place] [address] Paula Munguia PA DDD (degenerative disc disease), lumbar (Primary Dx); Lumbar degenerative disc disease; Chronic low back pain, unspecified back pain laterality, unspecified whether sciatica present; Lumbar pain; Myofascial pain; Lumbar spondylosis 09/17/19 24 Telephone [facility] [address] [place] [address] Gross, Viral V, DO Orders (lab work) 09/17/19 24 1:04 PM EDT - 09/17/19 24 11:59 PM EDT Hospital Encounter [address] [place] [address] Lyle Solo MD Thyroid nodule Discharge Disposition: Home or Self Care 09/12/19 24 Telephone [facility] [place] [address] Gross, Viral V, DO Medication Management ( Disp Refills Start End /lisinopriL (PRINIVIL;ZESTRIL) 2.5 mg Oral Tablet 90 Tablet 3 06/11/2023 - /Sig: TAKE 1 TABLET BY MOUTH ONCE DAILY . /Sent to pharmacy as: lisinopriL 2.5 mg tablet (PRINIVIL;ZESTril) /E-Prescribing Status: Receipt confirmed by pharmacy (06/11/2023 9:33 AM EDT) //) 09/12/19 24 Refill [facility] [place] [address] [address] Gross, Viral V, DO Medication Refill 09/07/19 24 Telephone [facility] [address] [address] Sapphire Munguia MD Appointment Needed (Pt requesting appt to see Ezra for sob); Shortness of Breath 08/30/19 24 1:50 PM EDT - 08/30/19 24 11:59 PM EDT Hospital Encounter [facility] [address] [place] [id number] Uncontrolled type 2 diabetes mellitus with hyperglycemia (HCC); Stage 3a chronic kidney disease (HCC); 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); HTN (hypertension), benign Discharge Disposition: Home or Self Care 08/30/19 24 Refill [facility] [place] [address] [address] Gross, Viral V, DO Medication Refill 08/27/19 24 Telephone [facility] [place] [address] Gross, Viral V, DO Samples (semaglutide (OZEMPIC) 2 mg/dose (8 mg/3 mL) SubQ Pen Injector ) 08/22/19 24 Refill [facility] [place] [place] [address] Gross, Viral V, DO Medication Refill 08/21/[address] [place] [address] Gross, Viral V, DO Referral (ortho/spine) 08/21/19 24 Orders Only [address] [address] Gross, Viral V, DO Low sodium levels (Primary Dx) 08/20/19 24 Orders Only [address] [place] [address] Gross, Viral V, DO Uncontrolled type 2 diabetes mellitus with hyperglycemia (HCC) (Primary Dx) 08/17/19 24 9:54 AM EDT - 08/17/19 24 11:59 PM EDT Hospital Encounter [facility] [address] Uncontrolled type 2 diabetes mellitus with hyperglycemia (HCC); Stage 3 chronic kidney disease, unspecified whether stage 3a or 3b CKD (HCC); Muscle cramps Discharge Disposition: Home or Self Care 08/17/19 24 8:40 AM EDT Office Visit [address] [address] Gross, Viral V, DO Uncontrolled type 2 diabetes mellitus with hyperglycemia (HCC) (Primary Dx); Stage 3 chronic kidney disease, unspecified whether stage 3a or 3b CKD (HCC); Muscle cramps 08/17/19 24 9:00 AM EDT Office Visit [facility] [address] [place] [address], [place] [address] Abel Hernandez MD Stage 3a chronic kidney disease (HCC) (Primary Dx); HTN (hypertension), benign; 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) 08/16/19 24 Telephone [facility] [place] [address] [address] Gross, Viral V, DO Letter for School/Work 08/13/19 24 2:55 PM EDT - 08/13/19 24 11:59 PM EDT Hospital Encounter [facility] [address] [address] Stage 3b chronic kidney disease (HCC); Edema due to hypervolemia; 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); HTN (hypertension), benign Discharge Disposition: Home or Self Care 08/03/19 24 Refill [facility] [place] [address] Edith Oropeza APRN Medication Refill 07/24/19 24 Refill [facility] [place] [address] Renato Viral V, DO Medication Refill 07/18/19 24 11:45 AM EDT Office Visit [facility] [place] [id number] Sapphire Munguia MD Coronary artery disease involving makah heart without angina pectoris, unspecified vessel or lesion type (Primary Dx); Mixed hyperlipidemia; S/P CABG x 3; Congestive heart failure, unspecified HF chronicity, unspecified heart failure type ([facility]) 07/16/19 24 4:00 PM EDT Office Visit [facility] [place] [address] [address] Gross, Viral V, DO Spondylosis of lumbar region without myelopathy or radiculopathy (Primary Dx); Screening for colon cancer; Essential hypertension; History of TIA (transient ischemic attack) 07/10/19 24 Travel 07/10/19 24 3:11 PM EDT - 07/10/19 24 5:19 PM EDT Emergency [facility] [address] [facility] [place] [address] Mitchell Gaitan MD Acute left-sided low back pain without sciatica (Primary Dx) Discharge Disposition: Home or Self Care 06/29/19 [facility] [address] Carlos A Gross V, DO Medication Refill (one touch ) 06/28/19 Patient Outreach [address] [address] Bryanna Mitchell RN CM- Telephonic Outreach; Care Transition; CM-Medication Assistance 06/27/19 12:24 PM EDT - 06/27/19 11:59 PM EDT Hospital Encounter [facility] Last [address] [address] Sapphire Munguia MD SOB (shortness of breath) on exertion Discharge Disposition: Home or Self Care 06/27/19 12:24 PM EDT - 06/27/19 11:59 PM EDT Hospital Encounter [facility] Enpirion [address] [address] Sapphire Munguia MD SOB (shortness of breath) on exertion Discharge Disposition: Home or Self Care 06/25/19 Orders [place] [address] Maryjane Sotomayor MA 06/25/19 Telephone [facility] [place] [address] [place] [address] Sapphire Munguia MD Medication Refill 06/21/19 3:45 PM EDT Office Visit [facility] [address] [address] Sapphire Munguia MD Coronary artery disease involving makah heart without angina pectoris, unspecified vessel or lesion type (Primary Dx); Mixed hyperlipidemia; Ischemic heart disease; Congestive heart failure, unspecified HF chronicity, unspecified heart failure type (HCC); S/P CABG x 3; Heart murmur; SOB (shortness of breath) on exertion 06/21/19 24 12:20 PM EDT Office Visit [facility] [address] [place] [address] Lyle Solo MD Mass of right parotid gland (Primary Dx); Thyroid nodule 06/20/19 24 Refill [facility] [place] [facility] [address] [facility] [place] [address] Edith Oropeza APRN Medication Refill 06/11/19 24 Orders Only [facility] [address] [facility] [place] [address] Thelma Russell, JAMISON Uncontrolled type 2 diabetes mellitus with hyperglycemia (HCC) 06/11/19 24 9:00 AM EDT Office Visit [facility] [address] [facility] [place] [address] Oswaldo Harry MD Essential hypertension (Primary Dx); Weakness of both arms; Uncontrolled type 2 diabetes mellitus with hyperglycemia (HCC) 06/10/19 24 Refill [facility] [place] [address] [place] [address] Gross, Viral V, DO Medication Refill 06/09/19 24 Refill [facility] [address] [facility] [place] [address] Gross, Viral V, DO Medication Refill 06/07/19 24 9:30 PM EDT - 06/08/19 24 12:58 AM EDT Emergency [facility] [address] [place] [address] Piedad Jimenez MD Interscapular pain (Primary Dx) Discharge Disposition: Home or Self Care 06/07/19 24 Travel 06/06/19 24 3:35 PM EDT - 06/06/19 24 11:59 PM EDT Hospital Encounter [facility] Ultrasound [address] [place] [address] Abel Hernandez MD Stage 3b chronic kidney disease (HCC) Discharge Disposition: Home or Self Care 06/05/19 24 5:10 PM EDT Office Visit [facility] [place] [facility] [address] [facility] [place] [address] Edith Oropeza APRN Abscess of buttock (Primary Dx); Other forms of angina pectoris 06/04/19 24 Orders Only [facility] [place] [address] [place] [address] Abel Hernandez MD Stage 3b chronic kidney disease (HCC) (Primary Dx) 06/04/19 24 1:00 PM EDT Office Visit [facility] [place] [address] [place] [address] Abel Hernandez MD Stage 3b chronic kidney disease (HCC) (Primary Dx); 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); HTN (hypertension), benign; Edema due to hypervolemia 05/25/19 24 Refill [facility] [place] [facility] [address] [place] [address] Edith Oropeza APRN Medication Refill 05/20/19 24 Refill [facility] [place] [facility] [address] [facility] [place] [address] Gross, Viral V, DO Medication Refill 05/14/19 24 Refill [facility] [place] [facility] [address] [facility] [place] [address] Gross, Viral V, DO Medication Refill 05/13/19 24 10:37 AM EST - 05/13/19 24 11:59 PM EST Hospital Encounter [facility] [address] [place] [address] Mixed hyperlipidemia; Congestive heart failure, unspecified HF [...] Dyslipidemia associated with type 2 diabetes mellitus ([facility]) Discharge Disposition: Home or Self Care 05/05/19 24 Refill [facility] [place] [place] [address] Gross, Viral V, DO Medication Refill 04/23/19 24 Refill [facility] [place] [address] [facility] [address] [place] [address] Sapphire Munguia MD Medication Refill 04/23/19 24 Refill [facility] [place] [place] [address] Gross, Viral V, DO Medication Refill 04/23/19 [address] [place] [address] Edith Oropeza APRN Medication Refill 04/11/19 24 4:30 PM EST Office Visit [address] [place] [address] Gross, Viral V, DO Irritable bowel syndrome with diarrhea (Primary Dx); Left lower quadrant abdominal pain; CHF (congestive heart failure), NYHA class I, acute on chronic, combined (HCC); Acute right-sided congestive heart failure (HCC); Type 2 diabetes mellitus with diabetic peripheral angiopathy without gangrene, without long-term current use of insulin ([facility]); Class 2 severe obesity due to excess calories with serious comorbidity and body mass index (BMI) of 35.0 to 35.9 in adult ([facility]); Dyslipidemia associated with type 2 diabetes mellitus ([facility]); Stage 3 chronic kidney disease, unspecified whether stage 3a or 3b CKD (HCC) 03/30/19 24 Patient Outreach [address] [place] [address] Bryanna Mitchell, RN CM-Medication Assistance 03/29/19 24 Patient Outreach [facility] [address] [place] [address] Bryanna Mitchell, RN CM- Telephonic Outreach; Care Transition; CM-Medication Assistance 03/27/19 [address] [place] [address] Gross, Viral V, DO Medication Refill 03/20/19 24 Refill [facility] [address] [facility] [place] [address] Edith Oropeza APRN Medication Refill 03/19/19 24 Orders Only [facility] [place] [address] [facility] [address] [place] [address] Migdalia Corcoran RMA Coronary artery disease involving makah heart without angina pectoris, unspecified vessel or lesion type (Primary Dx); Chest pain, unspecified type 03/16/19 24 Patient Outreach [address] [address] Bryanna Mitchell, RN CM- Telephonic Outreach; Care Transition; CM-Medication Assistance; CM-SDWV 03/07/[address] [place] [address] Gross, Viral V, DO Medication Refill 03/06/20 23 Refill SE[facility] [address] [place] [address] Gross, Viral V, DO Medication Refill 02/23/20 23 Patient Outreach [address] [place] [address] Thelma Russell RN CM-Medication Assistance 02/21/20 5:30 PM EST Office Visit [address] [place] [address] Gross, Viral V, DO Degenerative disc disease, lumbar (Primary Dx); Lumbar radiculopathy, chronic; Generalized osteoarthritis of multiple sites; Type 2 diabetes mellitus with diabetic peripheral angiopathy without gangrene, without long-term current use of insulin (HCC); Well adult exam 02/20/20 23 Patient Outreach [facility] [address] [place] [address] Gross, Viral V, DO Central Patient Navigator Outreach (AWV questionnaire) 12/11/20 23 8:58 AM EST - 02/20/20 23 11:59 PM EST Hospital Encounter [facility] [facility] [address] [place] [address] Dyslipidemia associated with type 2 diabetes mellitus (HCC); Uncontrolled type 2 diabetes mellitus with hyperglycemia (HCC); Pure hypercholesterolemia Discharge Disposition: Home or Self Care 02/15/20 23 Refill [facility] [place] [address] [place] [address] Gross, Viral V, DO Medication Refill 02/13/20 23 Patient Outreach [facility] [address] [facility] [place] [address] Gross, Viral V, DO Central Patient Navigator Outreach (A1c) 02/12/20 23 Refill [facility] [place] [address] [facility] [place] [address] Gross, Viral V, DO Medication Refill 02/12/20 23 Refill [facility] [place] [address] [place] [address] Edith Oropeza, ACTUARIAL INTERN Medication Refill 02/10/20 23 Refill [facility] [place] [address] [facility] [place] [address] Gross, Viral V, DO Medication Refill 02/03/20 23 Refill [facility] [place] [address] [facility] [place] [address] Gross, Viral V, DO Medication Refill 01/31/20 23 Telephone [facility] [place] [address] [facility] [place] [address] Gross, Viral V, DO Results (mri) 01/13/20 23 Refill [facility] [place] [address] [place] [address] Edith Oropeza, ACTUARIAL INTERN Medication Refill 01/13/20 23 Refill [facility] [place] [facility] [address] [facility] [place] [address] Edith Oropeza, ACTUARIAL INTERN Medication Refill 12/31/19 [address] [address] Gross, Viral V, DO Medication Refill 12/29/[address] [address] Gross, Viral V, DO Medication Refill 12/28/[address] [address] Gross, Viral V, DO Referral (pain specialist ) 12/26/[address] [address] Gross, Viral V, DO Medication Refill 12/21/[address] [address] Gross, Viral V, DO Samples (ozempic) 12/15/19 Patient Outreach [address] [address] Bryanna Mitchell RN CM- Telephonic Outreach; Care Transition; CM-Medication Assistance 12/08/[address] [address] Gross, Viral V, DO Medication Refill (torsemide (DEMADEX) 20 mg Oral Tablet 60 Tablet 1 08/24/2022 /Sig - Route: Take 1 Tablet by mouth Twice daily diuretic. - Oral //) 12/05/[address] [address] Gross, Viral V, DO Medication Management (hydroCHLOROthiazide (HYDRODIURIL) tablet 25 mg [[id number]]/Order DetailsOrdered Dose: 25 mg Route: Oral Frequency: DAILY/Admin Dose: 25 mg /Scheduled Start Date/Time: 08/19/22 0900 End Date/Time: 08/21/22 1020 First Dose: As Scheduled//torsemide (DEMADEX) 20 mg Oral Tablet 60 Tablet 1 08/24/2022 /Sig - Route: Take 1 Tablet by mouth Twice daily diuretic. - Oral ) 11/28/19 23 2:15 PM EDT Office Visit [facility] [address] [address] Vladimir Stewart MD Type 2 diabetes mellitus with both eyes affected by mild nonproliferative retinopathy without macular edema, without long-term current use of insulin (HCC) (Primary Dx); Age-related nuclear cataract of both eyes; Cortical age-related cataract of both eyes; Refractive error 11/09/19 23 9:15 AM EDT Office Visit [facility] [address] [address] Sapphire Munguia MD Coronary artery disease involving makah heart without angina pectoris, unspecified vessel or lesion type (Primary Dx); Mixed hyperlipidemia; Congestive heart failure, unspecified HF chronicity, unspecified heart failure type ([facility]); S/P CABG x 3 11/03/19 23 Refill [facility] [place] [address] Gross, Viral V, DO Medication Refill 10/30/19 [facility] [address] Gross, Viral V, DO Medication Refill 10/18/19 [address] [address] Edith Oropeza APRN Medication Refill 10/14/19 23 11:45 AM EDT - 10/14/19 23 11:59 PM EDT Hospital Encounter [facility] [address] [address] Serum potassium elevated Discharge Disposition: Home or Self Care 10/05/19 23 Orders Only [facility] [place] [address] [address] Gross, Viral V, DO Serum potassium elevated (Primary Dx) 10/05/19 23 8:08 AM EDT - 10/05/19 23 11:59 PM EDT Hospital Encounter [facility] Ultrasound [address] [place] [address] Gross, Viral V, DO Thyroid mass Discharge Disposition: Home or Self Care 10/04/19 Nurse Triage [address] [place] [address] Jesusita Marie RN 10/04/19 1:56 PM EDT - 10/04/19 11:59 PM EDT Hospital Encounter [facility] [address] [place] [address] Thyroid mass Discharge Disposition: Home or Self Care 10/04/19 3:00 PM EDT Office Visit [facility] [address] [facility] [address] [place] [address] Merle Kline, SIMÓN Blurred vision, bilateral (Primary Dx); Type 2 diabetes mellitus without retinopathy (HCC); 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; Combined forms of age-related cataract of right eye; Combined forms of age-related cataract of left eye 10/04/19 1:40 PM EDT Office Visit [facility] [place] [facility] [address] [place] [address] Gross, Viral V, DO Cardiomegaly (Primary Dx); Thyroid mass 09/29/19 11:50 AM EDT Office Visit [facility] [place] [facility] [address] [place] [address] Arehart, Edith ACTUARIAL INTERN Sore throat (Primary Dx); Runny nose; Uncontrolled type 2 diabetes mellitus with hyperglycemia (HCC) 09/28/19 1:00 PM EDT Office Visit [facility] [address] [address] [address],[place] Dyslipidemia associated with type 2 diabetes mellitus (HCC) (Primary Dx); Uncontrolled type 2 diabetes mellitus with hyperglycemia (HCC) 09/28/19 8:00 AM EDT Office Visit [facility] [address] [address] Sapphire Munguia MD Coronary artery disease involving makah heart without angina pectoris, unspecified vessel or lesion type (Primary Dx); Mixed hyperlipidemia; Congestive heart failure, unspecified HF chronicity, unspecified heart failure type (HCC); S/P CABG x 3 09/24/19 11:56 AM EDT - 09/24/19 11:59 PM EDT Hospital Encounter [facility] [address] [place] [phone] Mixed hyperlipidemia; Coronary artery disease involving makah heart without angina pectoris, unspecified vessel or lesion type; Ischemic heart disease; S/P CABG x 3; Muscle cramps; Encounter for vitamin deficiency screening; Vitamin D deficiency Discharge Disposition: Home or Self Care 09/23/19 Telephone [facility] [place] [place] [address] Gross, Viral V, DO Follow-up (Pt adv that labs have been ordered) 09/23/19 Patient Outreach [facility] [place] [address] Thelma Russell RN Care Transition; CM- Telephonic Outreach; CM-Medication Assistance 09/21/19 Telephone [facility] [place] [address] [address] Gross, Viral V, DO Home Health 09/19/19 Telephone [facility] [place] [address] Gross, Viral V, DO Medication Management (Not on formulary please change ) 09/14/19 Telephone [facility] [place] [address] Gross, Viral V, DO Medication Management ( Disp Refills Start End /ketoconazole (NIZORAL) 2 % Top Cream (Discontinued) 60 g 0 02/20/2022 09/04/2022 /Sig: APPLY TO THE AFFECTED AREA(S) TOPICALLY EVERY DAY /Patient taking differently: APPLY //); Follow-up (Request CT chest done at [facility] ) 09/11/19 Refill [facility] [place] [place] [address] Gross, Viral V, DO Medication Refill 09/09/[address] [address] Robyn Rogers, BROOKA Orders 09/08/19 Patient Outreach [address] Bryanna Mitchell, RN CM-Medication Assistance; CM- Telephonic Outreach; Care Transition 09/06/[address] [address] Gross, Viral V, DO Home Health (FYI for doctor ) 09/05/19 3:10 PM EDT Office Visit [address] [address] Bryanna Mitchell, JAMISON Encounter for support and coordination of transition of care (Primary Dx) 09/05/19 3:00 PM EDT Office Visit [address] [address] Gross, Viral V, DO CHF (congestive heart failure), NYHA class I, acute on chronic, combined (HCC) (Primary Dx); Essential hypertension; Groin hematoma, subsequent encounter 09/02/[address] [address] Robyn Rogers, RMA Other 08/31/19 Patient Outreach [address] [address] Bryanna Mitchell, RN CM- Telephonic Outreach; Care Transition; CM-Medication Assistance 08/26/[address] [address] Gross, Viral V, DO Referral (Diabetic education ) 08/26/19 Telephone [facility] [address] [facility] [address] [place] [address] Ely, Agustin Dye MD Patient Education 08/26/19 Patient Outreach [facility] [address] [place] [address] Bobby Reynoso BA, COS Referral 08/26/19 Patient Outreach [facility] [address] [place] [address] Madeline Bruno, RN Hospital Follow Up; Care Transition; CM - Medication Reconciliation; CM-Resource Coordination; CM- Consultation 08/19/19 9:42 PM EDT - 08/25/19 4:26 PM EDT Hospital Encounter [facility] [address] [place], [place] [id number] Leo Clemente MD Discharge Disposition: Home or Self Care 08/19/19 Travel 08/19/19 4:58 PM EDT - 08/19/19 9:04 PM EDT Emergency [facility] [address] [facility] [place], [place] [id number] Jessica Wallis MD Renard, Cruff, MD Acute right-sided congestive heart failure (HCC) (Primary Dx); Fluid retention; Dyspnea, unspecified type Discharge Disposition: Discharge/Readmit 08/19/19 Telephone [facility] [place] [facility] [address] [place] [address] Gross, Viral V, DO Advice Only (Retaining water) 08/19/19 Orders Only [facility] [place] [id number] Sapphire Munguia MD Congestive heart failure, unspecified HF chronicity, unspecified heart failure type (HCC) (Primary Dx) 08/19/19 Orders Only Adult Med [address] [place], [place] [id number] Nery Yin APRN 08/19/19 2:10 PM EDT Office Visit [facility] [place] [facility] [address] [place] [address] Gross, Viral V, DO Localized enlarged lymph nodes (Primary Dx); Inguinal lymphadenopathy; Essential hypertension; Acute bronchitis, unspecified organism 08/18/19 Telephone [facility] [place] [address] [phone] Gross, Viral V, DO Samples (semaglutide (OZEMPIC) 1 mg/dose) 08/18/19 Telephone [facility] [place] [address] [address] Gross, Viral V, DO Appointment Needed (ed f/u [facility]/ knot below waste line/patient states it is painful ) 08/16/19 Telephone [facility] [address] [address] Sapphire Munguia MD Other (pt calling in mgs of meds) 08/15/19 Travel 08/15/19 11:15 AM EDT - 08/15/19 11:59 PM EDT Hospital Encounter [facility] [address] [place] [address] [address] [place] [address] Rosie Gao APRN Coronary artery disease involving makah heart without angina pectoris, unspecified vessel or lesion type; Mixed hyperlipidemia; Ischemic heart disease; S/P CABG x 3; Hematoma of groin, initial encounter; Other specified complications of surgical and medical care, not elsewhere classified, initial encounter Discharge Disposition: Home or Self Care 08/15/19 10:00 AM EDT Office [facility] [address] [address] Rosie Gao APRN Coronary artery disease involving makah heart without angina pectoris, unspecified vessel or lesion type (Primary Dx); Mixed hyperlipidemia; Ischemic heart disease; S/P CABG x 3; Other specified complications of surgical and medical care, not elsewhere classified, initial encounter; Congestive heart failure, unspecified HF chronicity, unspecified heart failure type (HCC) 08/12/19 10:00 AM EDT Office Visit [facility] [place] [address] [address] Gross, Viral V, DO Uncontrolled type 2 diabetes mellitus with hyperglycemia (HCC) (Primary Dx); Essential hypertension; History of TIA (transient ischemic attack); Acute on chronic systolic congestive heart failure, NYHA class 2 (HCC) 07/14/19 Refill [facility] [place] [address] Carlos A Gross V, DO Medication Refill 07/05/19 Refill [facility] [address] [address] Edith Oropeza APRN Medication Refill 06/23/19 1:20 PM EDT Office Visit [facility] [address] [place] [address] Lyle Solo MD Mass of right parotid gland (Primary Dx) 06/22/19 Patient Outreach [address] [address] Bryanna Mitchell RN CM- Telephonic Outreach; Care Transition; CM-Medication Assistance 06/10/19 Travel 06/10/19 4:50 PM EDT - 06/10/19 6:27 PM EDT Emergency [facility] [address] [place] [address] Peggy Lama DO Lip laceration, initial encounter (Primary Dx); Facial contusion, initial encounter; Mass of right parotid gland Discharge Disposition: Home or Self Care 05/28/19 9:06 AM EDT - 05/28/19 11:59 PM EDT Hospital Encounter [facility] [address] [address] Uncontrolled type 2 diabetes mellitus with hyperglycemia (HCC); Dyslipidemia associated with type 2 diabetes mellitus (HCC); Screening for thyroid disorder; Screening for prostate cancer Discharge Disposition: Home or Self Care 05/27/19 11:20 AM EDT Office Visit [facility] [address] Carlos A Gross V, DO Screening for thyroid disorder (Primary Dx); Atherosclerotic heart disease of makah coronary artery with other forms of angina pectoris; Fluid retention in legs; Essential hypertension; Gastroesophageal reflux disease with esophagitis, unspecified whether hemorrhage; Uncontrolled type 2 diabetes mellitus with hyperglycemia (HCC); Dyslipidemia associated with type 2 diabetes mellitus (HCC); History of TIA (transient ischemic attack); Chronic bilateral low back pain with right-sided sciatica; Screening for prostate cancer 05/24/19 Telephone [facility] [address] [place] [address] Frederic Almaguer APRN Other (WORK COMP, NOT WORK COMP) 05/23/19 Telephone [facility] [address] [facility] [address] [place] [address] Frederic Almaguer APRN Knee Pain 05/20/19 8:15 AM EST Ancillary Procedure [facility] [address] [id number] Frederic Almaguer APRN Chronic pain of right knee 05/20/19 8:00 AM EST Office Visit [facility] [address] [place], [place] [id number] Frederic Almaguer APRN Osteoarthritis of patellofemoral joints of both knees (Primary Dx); Primary osteoarthritis of left knee; Chronic pain of right knee 05/01/19 Telephone [facility] [address] [place], [place] [id number] Frederic Almaguer APRN Other (WORK COMP, NOT WORK COMP) 04/28/19 1:15 PM EST Ancillary Procedure [facility] [address] [id number] Frederic Almaguer APRN Acute pain of left knee 04/28/19 1:00 PM EST Office Visit [place] [id number] Frederic Almaguer APRN Primary osteoarthritis of left knee (Primary Dx); Acute pain of left knee 04/26/19 Travel 04/26/19 7:16 PM EST - 04/26/19 8:53 PM EST Emergency [facility] [address] [place] [address] Peggy Lama DO Injury of left knee, initial encounter (Primary Dx) Discharge Disposition: Home or Self Care 04/20/19 2:15 PM EST Office Visit [address] [address] Carlie Connolly APRN Lumbar radiculopathy (Primary Dx); Chronic bilateral low back pain with right-sided sciatica; Lumbar spondylosis; Class 2 severe obesity due to excess calories with serious comorbidity and body mass index (BMI) of 35.0 to 35.9 in adult (HCC); Sacroiliitis; Cervical spondylosis 04/11/19 1:45 PM EST Office Visit [facility] [place] [id number] Sapphire Munguia MD Coronary artery disease involving makah heart without angina pectoris, unspecified vessel or lesion type (Primary Dx); Mixed hyperlipidemia; Ischemic heart disease; S/P CABG x 3 04/10/19 Refill [place] [phone] Edith Oropeza APRN Medication Refill 04/07/19 9:15 AM EST Office Visit [facility] [address] [address] Vladimir Stewart MD Diabetes mellitus without complication (HCC) (Primary Dx); Combined form of age-related cataract, left eye; Combined form of age-related cataract, right eye; KCS (keratoconjunctivitis sicca) ([facility]); Refractive error 03/27/[address] [address] Carlos A Gross V, DO Samples (Ozempic) 03/23/19 Patient Outreach [address] [address] Bryanna Mitchell RN CM- Telephonic Outreach; Care Transition; CM-Medication Assistance 03/20/19 10:05 AM EST Ancillary Procedure [facility] [address] Renato Viral V, DO Atherosclerotic heart disease of makah coronary artery with other forms of angina pectoris; Fluid retention in legs; Angina of effort Discharge Disposition: Home or Self Care 01/09/20 23 9:40 AM EST Office Visit [facility] [address] [place] [address] Gross, Viral V, DO Fluid retention in legs (Primary Dx); Sacroiliitis; Dyslipidemia associated with type 2 diabetes mellitus (HCC); Class 2 severe obesity due to excess calories with serious comorbidity and body mass index (BMI) of 35.0 to 35.9 in adult (HCC); Atherosclerotic heart disease of makah coronary artery with other forms of angina pectoris; Angina of effort 03/14/19 23 Telephone [facility] [address] [place] [address] Gross, Viral V, DO Medication Management (ozempic) 03/07/20 11:45 AM EST Office Visit [facility] [address] [facility] [address] [place] [address] Jeffy Fuentes MD Coronary artery disease involving makah heart without angina pectoris, unspecified vessel or lesion type (Primary Dx); Mixed hyperlipidemia; Chest pain, unspecified type; Ischemic heart disease; S/P CABG x 3 03/06/20 22 Refill [facility] [place] [address] [place] [address] Gross, Viral V, DO Medication Refill 03/06/20 22 Refill [facility] [place] [facility] [address] [place] [address] Gross, Viral V, DO Medication Refill 03/04/20 [address] [address] Drea Acuna APRN Medication Refill 02/29/20 22 Telephone [facility] [address] [place] [address] Jeffy Fuentes MD Advice Only (Chest pain ) 02/21/20 Patient Outreach [facility] [address] [place] [address] Patsy Lopez RN Hospital Follow Up; Care Transition 02/21/20 Telephone [facility] [address] [place] [address] Daphne Cope RN 02/21/20 22 Refill [facility] [place] [facility] [address] [place] [address] Gross, Viral V, DO Medication Refill 02/17/20 22 12:11 PM EST - 02/18/20 22 12:37 PM EST Hospital [place] [address] Sapphire Munguia MD Chest pain, unspecified type; Shortness of breath; Dyslipidemia associated with type 2 diabetes mellitus (HCC) Discharge Disposition: Home or Self Care 02/17/20 22 Travel 02/17/20 22 1:30 PM EST - 02/17/20 22 2:30 PM EST Surgery [facility] [employer] [place] [address] Sapphire Munguia MD CORONARY ANGIOGRAM WITH GRAFTS / CARDIAC CATHETERIZATION 02/15/20 22 Refill [facility] [place] [facility] [address] [place] [address] Gross, Viral V, DO Medication Refill 02/14/20 22 11:03 AM EST - 02/14/20 22 11:59 PM EST Hospital Encounter [facility] [address] [place] [address] Essential hypertension; Screening for prostate cancer; Chest pain, unspecified type; SOB (shortness of breath) Discharge Disposition: Home or Self Care 02/11/20 22 Orders Only [facility] [address] [place] [address] Sapphire Munguia MD Chest pain, unspecified type (Primary Dx); SOB (shortness of breath) 02/10/20 22 3:15 PM EST Office Visit [facility] [address] [place] [address] Jeffy Fuentes MD Chest pain, unspecified type (Primary Dx); Ischemic heart disease; S/P CABG x 3; Angina of effort 11/25/20 22 Patient Outreach [facility] [address] [facility] [place] [address] Bryanna Mitchell RN CM- Telephonic Outreach; Care Transition; CM-Medication Assistance 02/01/20 Patient Outreach [facility] [address] [place] [address] Gross, Viral V, DO Central Order Completion Outreach (colon) 01/31/20 Refill [facility] [address] [facility] [place] [address] Gross, Viral V, DO Medication Refill 01/31/20 Telephone [facility] [address] [facility] [place] [address] Gross, Viral V, DO Samples (Ozempic) 01/28/20 10:45 AM EST Office Visit [facility] [address] [place] [address] Carlos Langston MD Lumbar spondylosis (Primary Dx); Chronic bilateral low back pain with right-sided sciatica 01/24/20 Telephone [facility] [address] [facility] [place] [address] Gross, Viral V, DO Prior Authorization 01/20/20 Refill [facility] [place] [address] [facility] [place] [address] Gross, Viral V, DO Medication Refill 01/18/20 22 Refill [facility] [place] [address] [place] [address] Drea Acuna APRN Medication Refill 01/13/20 Travel 01/13/20 1:43 PM EDT - 01/13/20 11:59 PM EDT Hospital Encounter [facility] Imaging [address] [place] [address] Carlie Connolly APRN Discharge Disposition: Home or Self Care 01/07/20 Patient Outreach [facility] [address] [facility] [place] [address] Bryanna Mitchell, RN CM- Telephonic Outreach; Care Transition; CM-Medication Assistance 01/04/20 Orders Only [address] [address] Helena Garay MA Encounter for long-term (current) use of high-risk medication 01/04/20 9:45 AM EDT Office Visit [address] [address] Drea Acuna APRN Chronic bilateral low back pain with right-sided sciatica (Primary Dx); Encounter for long-term (current) use of high-risk medication; Lumbar radiculopathy; Degenerative disc disease, lumbar; Spondylosis of lumbar region without myelopathy or radiculopathy 01/03/20 Patient Outreach [facility] [address] [place] [address] Thelma Russell RN CM-Medication Assistance; Care Transition; Care Management - Face To Face 01/03/20 11:00 AM EDT Office Visit [facility] [address] [place] [address] Edith Oropeza APRN Viral URI (Primary Dx); Neck pain; Runny nose 12/30/19 Travel 12/28/19 Patient Outreach [facility] [address] [place] [address] Bryanna Mitchell, JAMISON CM- Telephonic Outreach; Care Transition; CM-Medication Assistance 12/28/[address] [address] Snow Dove MA Other 12/28/19 Telephone [facility] [address] [place] [address] Renato, Viral V, DO Other (Back claim ) 10/17/20 22 Telephone [facility] [address] [facility] [address] [place] [address] Agustin Graves MD Samples 12/27/19 22 Telephone [facility] [address] [facility] [place] [address] Gross, Viral V, DO Samples (ozempic) 12/23/19 22 Orders Only [address] [address] Edith Oropeza APRN Uncontrolled type 2 diabetes mellitus with hyperglycemia (HCC) (Primary Dx) 12/21/19 2:42 PM EDT - 12/21/19 11:59 PM EDT Hospital Encounter [facility] [address] [place] [address] Essential hypertension; Night sweats; Uncontrolled type 2 diabetes mellitus with hyperglycemia (HCC) Discharge Disposition: Home or Self Care 12/21/19 22 1:40 PM EDT [facility] [address] [place] [address] Gross, Viral V, DO Other eczema (Primary Dx); Essential hypertension; Night sweats; Lumbar radiculitis; Sciatica of right side 12/20/19 22 Refill [facility] [address] [place] [address] Gross, Viral V, DO Medication Refill 12/17/19 22 Telephone [facility] [place] [facility] [address] [place] [address] Gross, Viral V, DO Paperwork/forms (handicap placard) 12/15/19 22 Telephone [facility] [address] [place] [address] Emerson Scanlon MA Anticoagulation (clopidogreL (PLAVIX) 75 mg Oral Tablet ) 12/15/19 22 11:45 AM EDT Office Visit [facility] [address] [place] [address] Carlie Connolly APRN Degenerative disc disease, lumbar (Primary Dx); Chronic bilateral low back pain with right-sided sciatica; Lumbar radiculopathy; Spondylosis of lumbar region without myelopathy or radiculopathy; Anxiety due to invasive procedure; Class 2 severe obesity due to excess calories with serious comorbidity and body mass index (BMI) of 35.0 to 35.9 in adult (HCC) 12/08/19 22 Refill [facility] [address] [facility] [place] [address] Gross, Viral V, DO Medication Refill 12/08/19 Refill [facility] [address] [place] [address] Gross, Viral V, DO Medication Refill 12/07/19 22 Refill [facility] [place] [facility] [address] [place] [address] Gross, Viral V, DO Medication Refill 12/06/19 22 Travel 12/06/19 22 8:42 AM EDT - 12/06/19 11:59 PM EDT Hospital Encounter [facility] [address] [place] [address] Drea Acuna APRN Chronic bilateral low back pain with right-sided sciatica Discharge Disposition: Home or Self Care 11/24/19 Telephone [facility] [place] [address] [place] [address] Gross, Viral V, DO Follow-up (pt called with feedback ) 11/23/19 3:30 PM EDT Office Visit [facility] [place] [facility] [address] [facility] [place] [address] Gross, Viral V, DO Lumbar radiculitis (Primary Dx); Screening for colon cancer; Sciatica of right side; Uncontrolled type 2 diabetes mellitus with hyperglycemia (HCC); Well adult exam 11/19/19 Telephone [facility] [place] [facility] [place] [address] Gross, Viral V, DO Symptom Call 11/17/19 22 Telephone [facility] [address] [place] [address] Carlos Langston MD Other (Continued increase pain) 11/16/19 22 Patient Outreach [facility] [address] [place] [address] Betty Hassan, BS, COS ED Follow-Up Call 11/16/19 1:30 PM EDT Office Visit [address] [address] Drea Acuna APRN Chronic bilateral low back pain with right-sided sciatica (Primary Dx); Sacroiliitis 11/15/19 2:09 PM EDT - 11/15/19 2:38 PM EDT [facility] [address] [facility] [place] [address] Jessica Wallis MD Acute exacerbation of chronic low back pain (Primary Dx) Discharge Disposition: Home or Self Care 10/30/19 22 Refill [facility] [place] [facility] [address] [place] [address] Gross, Viral V, DO Medication Refill 10/26/19 22 Refill [facility] [address] [facility] [place] [address] Gross, Viral V, DO Medication Refill 10/24/19 22 Refill [facility] [address] [place] [address] Gross, Viral V, DO Medication Refill 10/21/19 22 Patient Outreach [facility] [address] [place] [address] Gross, Viral V, DO Central Order Completion Outreach (oguadomonique) 10/21/19 9:15 AM EDT Office Visit [facility] [address] [place] [address] Nikunj Laboy, DPM Bunionette of right foot (Primary Dx); Pain in right foot 10/13/19 [address] [address] Gross, Viral V, DO Medication Refill 10/05/19 Patient Outreach [place] [address] [place] [address] Betty Hassan BS, COS ED Follow-Up Call 10/04/19 Travel 10/04/19 4:32 PM EDT - 10/04/19 8:38 PM EDT Emergency [facility] [address] [place] [address] Philip Phillip MD Fall, initial encounter (Primary Dx); Strain of lumbar region, initial encounter; Thoracic myofascial strain, initial encounter Discharge Disposition: Home or Self Care 09/28/[address] [address] Shell Navarro RMA Central Order Completion Outreach 09/23/19 11:30 AM EDT Office Visit [facility] [address] [address] Nikunj Laboy DPM Bunionette of right foot (Primary Dx); Metatarsus adductus of both feet; Diabetic polyneuropathy associated with type 2 diabetes mellitus (HCC); Toe pain, right; Ulcer of right foot, limited to breakdown of skin (HCC) 09/09/19 8:00 AM EDT Office Visit [facility] [address] [address] Nikunj Laboy, DPM Diabetic polyneuropathy associated with type 2 diabetes mellitus (HCC) (Primary Dx); Hammer toe of right foot; Metatarsus adductus of both feet; Bunionette of right foot 09/08/19 [address] [address] Gross, Viral V, DO Medication Refill 09/08/19 [address] [address] Gross, Viral V, DO Medication Refill 08/30/19 10:45 AM EDT Ancillary Procedure [facility] [address] Ulcer of right foot with fat layer exposed (HCC); Diabetic polyneuropathy associated with type 2 diabetes mellitus (HCC); Hammer toe of right foot; Toe pain, right 08/30/19 9:30 AM EDT Office Visit [facility] [address] Eloy Carter, IVON Ulcer of right foot with fat layer exposed (HCC) (Primary Dx); Diabetic polyneuropathy associated with type 2 diabetes mellitus (HCC); Cellulitis of toe of left foot; Hammer toe of right foot; Toe pain, right; Metatarsus adductus of right foot 08/23/19 3:50 PM EDT Office Visit [address] [address] Gross, Viral V, DO Obesity, Class I, BMI 30-34.9 (Primary Dx); Essential hypertension; Dyslipidemia associated with type 2 diabetes mellitus (HCC); Gastroesophageal reflux disease with esophagitis, unspecified whether hemorrhage; Screening for prostate cancer 08/23/19 11:30 AM EDT Office Visit [facility] [address] [place] [address] Jfefy Fuentes MD S/P CABG x 3 (Primary Dx) 08/20/19 Travel 08/20/19 8:44 AM EDT - 08/20/19 11:59 PM EDT Hospital Encounter [facility] [address] [place] [address] Jeffy Fuentes MD SOB (shortness of breath); Ischemic heart disease; S/P CABG x 3 Discharge Disposition: Home or Self Care 08/18/19 1:15 PM EDT Office Visit [facility] [place] [place] [address] [place] [address] Jasper Tabares DPM Blister of right foot, initial encounter (Primary Dx); Ulcer of right foot, limited to breakdown of skin (HCC); Uncontrolled type 2 diabetes mellitus with hyperglycemia (HCC) 08/17/19 22 Refill [facility] [address] [place] [address] Gross, Viral V, DO Medication Refill (need several meds refilled.) 08/17/19 22 11:20 AM EDT Office Visit [facility] [address] [place] [address] Oswaldo Harry MD Right foot pain (Primary Dx) 08/11/19 22 Refill [facility] [address] [place] [address] Renato, Viral V, DO Central Patient Navigator Outreach (Med refill 1st) 08/02/19 22 Orders Only [facility] [address] [place] [address] Renato Viral V, DO Screening for colon cancer; Screening for cancer of the rectum 07/13/19 22 9:15 AM EDT Office Visit [facility] [address] [place] [address] Araceli Garibay APRN Cervical spondylosis (Primary Dx); DDD (degenerative disc disease), cervical; Degenerative disc disease, lumbar; Lumbar radiculopathy 07/09/19 22 Travel 07/09/19 22 8:30 AM EDT Office Visit [facility] [address] [address] Jeffy Fuentes MD SOB (shortness of breath) (Primary Dx); Ischemic heart disease; S/P CABG x 3; Heart murmur 07/09/19 22 1:54 PM EDT - 07/09/19 22 11:59 PM EDT Hospital Encounter [facility] [address] [place] [address] Drea Acuna APRN Cervical spondylosis Discharge Disposition: Home or Self Care 06/25/19 22 Travel 06/25/19 22 1:29 PM EDT - 06/25/19 11:59 PM EDT Hospital Encounter [facility] [address] [facility] [address] [place] [address] Drea Acuna APRN Sacroiliitis Discharge Disposition: Home or Self Care 06/24/19 1:15 PM EDT Office Visit [facility] [address] [facility] [address] [place] [address] Vladimir Stewart MD Diabetes mellitus without complication (HCC) (Primary Dx); KCS (keratoconjunctivitis sicca) (HCC) 06/21/19 10:40 AM EDT Office Visit [facility] [address] [address] Agustin Graves MD Dyslipidemia associated with type 2 diabetes mellitus (HCC) (Primary Dx); Vitamin D deficiency; Vitamin B12 deficiency 06/16/19 Travel 06/16/19 7:47 AM EDT - 06/16/19 11:59 PM EDT Hospital Encounter [facility] [address] [place] [address] Dyslipidemia associated with type 2 diabetes mellitus (HCC); Vitamin D deficiency; Vitamin B12 deficiency Discharge Disposition: Home or Self Care 06/15/19 Telephone [facility] [address] [address] Agustin Graves MD Labs Only (reminder call) 06/04/19 22 Telephone [facility] [address] [place] [address] Carlos A Gross V, DO Medication Management 05/31/19 22 10:45 AM EDT Office Visit [facility] [address] [place] [address] Drea Acuna APRN Sacroiliitis (Primary Dx); Cervical spondylosis; DDD (degenerative disc disease), cervical; Degenerative disc disease, lumbar 05/27/19 22 Refill [facility] [address] [facility] [address] Gross, Viral V, DO Medication Refill 05/26/19 22 Refill [facility] [address] [facility] [place] [address] Gross, Viral V, DO Medication Refill 05/25/19 22 Telephone [facility] [address] [place] [address] Drea Acuna APRN Results (MRI) 05/23/19 22 Orders Only [facility] [address] [address] Drea Acuna APRN Cervical spondylolysis (Primary Dx); Cervical spondylosis 05/21/19 7:43 AM EST - 05/21/19 11:59 PM EST Hospital Encounter [facility] [address] [facility], [place] [id number] Diarrhea, unspecified type Discharge Disposition: Home or Self Care 05/20/19 Travel 05/20/19 1:10 PM EST Office Visit [facility] [address] [facility] [place] [address] Ruthy Montaño MD Diarrhea, unspecified type (Primary Dx) 05/19/19 22 Refill [facility] [address] [facility] [place] [address] Gross, Viral V, DO Medication Refill 05/14/19 22 Orders Only [facility] [address] [facility] [address] Eidth Oropeza APRN Uncontrolled type 2 diabetes mellitus with hyperglycemia (HCC) (Primary Dx) 05/09/19 22 Telephone [facility] [address] [place] [address] Gross, Viral V, DO Medication Management (metFORMIN XR) 04/29/19 22 Refill [facility] [address] [facility] [address] Gross, Viral V, DO Medication Refill 04/29/19 22 Travel 04/29/19 22 7:29 AM EST - 04/29/19 11:59 PM EST Hospital Encounter [facility] MRI [address] [place] [address] Drea Acuna APRN DDD (degenerative disc disease), cervical Discharge Disposition: Home or Self Care 04/22/19 22 Travel 04/22/19 22 3:00 PM EST - 04/22/19 11:59 PM EST Hospital Encounter [facility] [address] [place] [address] Naveen [place] MD Dizziness and giddiness Discharge Disposition: Home or Self Care 04/18/19 22 8:45 AM EST Office Visit [facility] [address] [place] [address] [address] [place] [address] Drea Acuna APRN DDD (degenerative disc disease), cervical (Primary Dx); Lumbar radiculopathy; Degenerative disc disease, lumbar; Spondylosis of lumbar region without myelopathy or radiculopathy 04/13/19 22 Refill [facility] [address] [place] [address] Vernon Salinas MD Medication Refill 04/12/19 22 Telephone [facility] [place] [facility] [address] [place] [address] Gross, Viral V, DO Medication Management (accu chek glucometer) 04/06/19 22 3:15 PM EST Office Visit [facility] [address] [address] Naveen [place] MD Dizziness and giddiness (Primary Dx) 04/05/19 22 Travel 04/05/19 22 7:39 AM EST - 04/05/19 11:59 PM EST Hospital Encounter [facility] [address] [place] [address] [address] [place] [address] Brian, Holley E, ACTUARIAL INTERN Spondylosis of lumbar region without myelopathy or radiculopathy Discharge Disposition: Home or Self Care 04/04/19 Travel 04/04/19 9:45 AM EST Office Visit [facility] [place] [address] [address] Vladimir Stewart MD Diabetes mellitus without complication (HCC) (Primary Dx); KCS (keratoconjunctivitis sicca) (HCC); Floppy eyelid syndrome of both eyes; Arcus senilis of both corneas; Combined form of age-related cataract, right eye; Combined form of age-related cataract, left eye; Carotid artery insufficiency syndrome; Blurred vision 04/01/19 Telephone [facility] [place] [address] [address] Gross, Viral V, DO Diabetes 04/01/19 22 Refill [facility] [address] [address] Gross, Viral V, DO Medication Refill 03/29/19 22 Telephone [facility] [place] [address] Rosie May RMA Prior Authorization 03/19/19 22 Refill [facility] [address] [place] [address] Omi Daly, DO Medication Refill 03/16/19 22 Telephone [facility] [address] [address] Agustin Graves MD [facility] 03/14/19 22 [facility] [address] Gross, Viral V, DO Prior Authorization ([facility] [facility] 03/14/19 Travel 03/14/19 22 8:40 AM EST Office Visit [facility] [address] [phone] Agustin Graves MD Dyslipidemia associated with type 2 diabetes mellitus (HCC) (Primary Dx); Vitamin D deficiency; Vitamin B12 deficiency 03/09/20 21 Refill [facility] [address] [place] [address] Gross, Viral V, DO Medication Refill 03/09/20 21 Travel 03/09/20 8:32 AM EST - 03/09/20 11:59 PM EST Hospital Encounter [facility] [address] [place] [address] Dyslipidemia associated with type 2 diabetes mellitus (HCC); Vitamin D deficiency; Vitamin B12 deficiency Discharge Disposition: Home or Self Care 03/07/20 21 Telephone [facility] 1500 [facility] [address] [place] [address] Agustin Graves MD Labs Only 02/17/[address] [place] [address] Carlos Langston MD Anticoagulation (Plavix ) 02/16/20 Patient Outreach [facility] [address] [place] [address] Gross, Viral V, DO Results (IRIS) 02/15/20 Travel 02/15/20 9:30 AM EST Office Visit [address] [place] [address] Holley Torres APRN Lumbar radiculopathy [...] 02/15/20 1:10 PM EST Office Visit [facility] [address] [place] [address] Oswaldo Harry MD Abscess (Primary Dx); Type 2 diabetes mellitus without complication, unspecified whether fci insulin use (HCC) 02/11/20 21 Refill [facility] [address] [place] [address] Dejuan Rosario APRN Medication Refill 02/10/20 21 Refill [facility] [address] [place] [address] Carlos A Gross V, DO Medication Refill 02/09/20 21 Travel 02/09/20 21 9:18 AM EST - 02/09/20 11:59 PM EST Hospital Encounter [facility] [address] [facility] Building [address] 4th Floor [address] [place] [address] Carlos Langston MD Lumbar radiculopathy Discharge Disposition: Home or Self Care 02/05/20 21 Refill [facility] [address] [place] [address] Omi Daly, Medication Refill 01/28/20 21 Telephone [facility] [address] [facility] [address] [place] [address] Agustin Graves MD Blood Sugar Problem (Question) 01/28/20 21 Orders Only [facility] [address] [place] [address] [address] [place] [address] Carlos Langston MD Lumbar radiculopathy (Primary Dx) 01/28/20 Travel 01/28/20 21 8:45 AM EST - 01/28/20 11:59 PM EST Hospital Encounter [facility] [address] [place], [place] [id number] Drea Acuna APRN Chronic right-sided low back pain with right-sided sciatica; Degenerative disc disease, lumbar Discharge Disposition: Home or Self Care 01/16/20 Travel 01/16/20 12:15 PM EDT Office Visit [facility] [address] [place] [address] Dolly Lovett APRN Acute left otitis media (Primary Dx) 01/11/20 Travel 01/11/20 9:00 AM EDT Office Visit [facility] [address] [place] [address] Araceli Garibay APRN Degenerative disc disease, lumbar (Primary Dx); Lumbar radiculopathy 01/09/20 Refill [facility] [address] [place] [address] Gross, Viral V, DO Medication Refill 01/08/20 Refill [facility] [address] [place] [address] Gross, Viral V, DO Medication Refill 01/07/20 Telephone [facility] [address] [place] [address] Drea Acuna APRN Results (MRI-L) 01/05/20 Travel 01/05/20 8:35 AM EDT - 01/05/20 11:59 PM EDT Hospital Encounter [facility] MRI [address] [place] [address] Drea Acuna APRN Chronic right-sided low back pain with right-sided sciatica Discharge Disposition: Home or Self Care 01/04/20 Patient Outreach [facility] [address] [place] [address] Kandace Mario BA, COS ED Follow-Up Call 01/01/20 Travel 01/01/20 2:25 PM EDT - 01/01/20 3:47 PM EDT [facility] [address] [place] [address] Jay Jay Jimenez MD Acute exacerbation of chronic low back pain (Primary Dx) Discharge Disposition: Home or Self Care 12/29/19 Patient Outreach [facility] [address] [place] [address] Kandace Mario BA, COS ED Follow-Up Call 12/28/19 Travel 12/28/19 5:00 PM EDT - 12/28/19 5:49 PM EDT [facility] [address] [place] [address] Lyle Mandel MD Right-sided low back pain with bilateral sciatica, unspecified chronicity (Primary Dx) Discharge Disposition: Home or Self Care 12/21/19 Telephone [facility] [address] [place] [address] Drea Acuna APRN Anticoagulation (Plavix) 12/21/19 Travel 12/21/19 Refill [facility] [address] [place] [address] Gross, Viral V, DO Medication Refill 12/21/19 1:00 PM EDT Office Visit [address] [place] [phone] Drea Acuna APRN Chronic right-sided low back pain with right-sided sciatica (Primary Dx); Degenerative disc disease, lumbar 11/30/19 Travel 11/30/19 4:30 PM EDT Office Visit [facility] [address] [place] [address] Gross, Viral V, DO Uncontrolled type 2 diabetes mellitus with hyperglycemia (HCC) (Primary Dx); Screening for colon cancer; Dyslipidemia associated with type 2 diabetes mellitus (HCC); Essential hypertension; Well adult exam 11/26/19 Travel 11/26/19 8:00 AM EDT Office Visit [address] [phone] Agustin Graves MD Dyslipidemia associated with type 2 diabetes mellitus (HCC) (Primary Dx); Vitamin D deficiency; Vitamin B12 deficiency 11/25/19 Refill [facility] [address] [place] [address] Gross, Viral V, DO Medication Refill (ibuprofen (ADVIL;MOTRIN) 800 mg Oral Tablet (Discontinued)90 Tab/) 11/21/19 Travel 11/21/19 10:10 AM EDT - 11/21/19 11:59 PM EDT Hospital Encounter [facility] [address] Dyslipidemia associated with type 2 diabetes mellitus (HCC); Vitamin D deficiency; Vitamin B12 deficiency Discharge Disposition: Home or Self Care 11/09/[address] [address] Gross, Viral V, DO Medication Management 10/29/19 Travel 10/29/19 9:00 AM EDT Office Visit [facility] [address] [address] Jeffy Fuentes MD Ischemic heart disease (Primary Dx); S/P CABG x 3 10/28/19 Refill [facility] [address] [place] [address] Dejuan Rosario APRN Medication Refill 10/20/[address] [address] Gross, Viral V, DO Medication Management (lisinopriL (PRINIVIL;ZESTRIL) 5 mg Oral [id number] ) 10/20/19 21 [address] [address] [address] Gross, Viral V, DO Medication Refill (semaglutide (OZEMPIC) 1 mg/dose (2 mg/1.5 mL), atorvastatin (LIPITOR) 80 mg Oral [id number] Tab) 10/02/19 Travel 10/02/19 4:20 PM EDT Office Visit [address] [address] Gross, Viral V, DO Dyslipidemia associated with type 2 diabetes mellitus (HCC) (Primary Dx); Seasonal allergic rhinitis, unspecified trigger; Uncontrolled type 2 diabetes mellitus with hyperglycemia (HCC); Essential hypertension; Gastroesophageal reflux disease with esophagitis, unspecified whether hemorrhage; BPH with urinary obstruction; Generalized osteoarthritis of multiple sites; History of TIA (transient ischemic attack) 09/25/19 21 Refill [facility] [address] [facility] [place] [address] Carlos A Gross V, DO Medication Refill 09/17/19 21 Patient Outreach [facility] [address] [facility] [place] [address] Carlos A Gross V, DO Central Patient Navigator Outreach (med refill 1) 09/16/19 21 Refill [facility] 100 [place] [address] Omi Daly, DO Medication Refill 09/07/19 21 Refill [facility] 100 [place] [address] Omi Daly, DO Medication Refill 09/01/19 21 Orders Only [facility] [address] [facility] [place] [address] Rosie May, JORGE Seasonal allergic rhinitis, unspecified trigger; Muscle spasm 09/01/19 21 Patient Outreach [facility] [address] [place] [address] Carlos A Gross V, Central Patient Navigator Outreach (Medication Refill Appointment-1st) 09/01/19 21 Refill [facility] 100 [place] [address] Omi Daly, DO Medication Refill 08/11/19 21 Refill [facility] 100 [place] [address] Omi Daly, DO Medication Refill 08/01/19 21 Refill [facility] 100 [place] [address] Vernon Salinas MD Medication Refill 07/28/19 21 Refill [facility] 100 [place] [address] Omi Daly, DO Medication Refill 07/28/19 Plan of Care Documentation [facility] [address] [address] 07/28/19 Travel 07/28/19 5:00 PM EDT Office Visit [facility] [address] [address] Porsha Chamberlain, PT Primary osteoarthritis, right shoulder 07/23/19 Travel 07/23/19 9:15 AM EDT Office Visit [facility] [address] [place] [address] Jeffy Fuentes MD Coronary artery disease involving makah heart without angina pectoris, unspecified vessel or lesion type (Primary Dx); S/P CABG x 3; Encounter for pre-operative cardiovascular clearance 07/15/19 Refill [facility] [address] [place] [address] Omi Daly, DO Medication Refill 07/14/19 Travel 07/14/19 8:00 AM EDT Office Visit [facility] [address] [address] Billy Foley MD Other secondary osteoarthritis of right shoulder (Primary Dx); Complete tear of right rotator cuff, unspecified whether traumatic 07/09/19 Telephone [facility] [address] [place] [address] Renato Viral V, DO 07/08/19 Refill [facility] 100 [place] [address] Omi Daly, DO Medication Refill 06/25/19 21 Refill [facility] 100 [place] [address] Omi Daly, DO Medication Refill 06/24/19 Travel 06/24/19 10:45 AM EDT Office Visit [facility] [address] [facility] 205 [place] [address] Jeffy Fuentes MD Ischemic heart disease (Primary Dx); Coronary artery disease involving makah heart without angina pectoris, unspecified vessel or lesion type; S/P CABG x 3; Ventricular bigeminy 06/18/19 Orders Only [facility] [address] [place] [address] Cammy Rawls RMA 06/17/19 8:01 AM EDT - 06/17/19 11:59 PM EDT Hospital Encounter [facility] [address] [place] [address] Encounter for screening for malignant neoplasm of prostate ; ED (erectile dysfunction) of non-organic origin; Testosterone deficiency; Decreased libido; Uncontrolled type 2 diabetes mellitus with hyperglycemia (HCC); Essential hypertension Discharge Disposition: Home or Self Care 06/16/19 Travel 06/16/19 6:10 PM EDT Office Visit [facility] [address] [place] [address] Carlos A Gross V, DO Testosterone deficiency (Primary Dx); ED (erectile dysfunction) of non-organic origin; Decreased libido; Uncontrolled type 2 diabetes mellitus with hyperglycemia (HCC); Essential hypertension; Encounter for screening for malignant neoplasm of prostate ; BPH with urinary obstruction 06/13/19 Travel 06/13/19 8:15 AM EDT Office Visit [facility] 100 [place] [address] Vernon Salinas MD Pre-op examination (Primary Dx); Chronic right shoulder pain 06/09/19 Telephone [facility] [place] [address] Omi Daly DO Medication Management (Cetirizine) 06/09/19 Travel 06/03/19 Travel 05/29/19 21 Refill [facility] 100 [place] [address] Omi Daly, Medication Refill 05/26/19 Travel 05/25/19 21 Telephone [facility] [address] [place] [address] Omi Daly DO Prior Authorization (OneTouch Ultra test strips ) 05/25/19 21 Refill [facility] [address] [place] [address] Omi Daly DO Medication Refill 05/20/19 21 Travel 05/15/19 21 Refill [facility] [address] [address] Ina Overton MD Medication Refill 05/14/19 21 Refill [facility] [address] [place] [address] Omi Daly DO Medication Refill 05/14/19 Travel 05/14/19 8:10 AM EST Office Visit [address] [place] [address] Agustin Graves MD Dyslipidemia associated with type 2 diabetes mellitus (HCC) (Primary Dx); Vitamin D deficiency; Vitamin B12 deficiency 05/09/19 21 9:11 AM EST - 05/09/19 11:59 PM EST Hospital Encounter [facility] [address] [place] [address] Vitamin B12 deficiency (Primary Dx) Discharge Disposition: Home or Self Care 05/08/19 21 11:58 AM EST - 05/08/19 21 11:59 PM EST Hospital Encounter [facility] [address] [place] [address] Dyslipidemia associated with type 2 diabetes mellitus (HCC); Vitamin D deficiency; Vitamin B12 deficiency Discharge Disposition: Home or Self Care 05/08/19 21 Travel 04/30/19 21 Orders Only [facility] [address] [place] [address] Omi Daly DO Screening for colon cancer; Screening for cancer of the rectum 04/12/19 21 Refill [facility] [address] [place] [address] Omi Daly, DO Medication Refill 04/03/19 21 Refill [facility] 100 [place] [address] Omi Daly, DO Medication Refill 03/31/19 21 Travel 03/23/19 21 Refill [facility] 100 [place] [address] Omi Daly, DO Medication Refill 03/21/19 21 Refill [facility] 100 [place] [address] Veronn Salinas MD Medication Refill 03/19/19 21 Telephone [facility] 100 [place] [address] Omi Daly, DO Medication Management (metFORMIN XR (GLUCOPHAGE-XR) 500 mg Oral Tablet Sustained Release 24 hr) 02/10/20 20 Refill [facility] 100 [place] [address] Omi Daly, DO Medication Refill 02/02/20 20 Telephone [facility] 40 [facility] 101 [place] [address] Dank Palacio MD No Show 02/02/20 20 Refill [facility] [place] [address] Omi Daly, DO Medication Refill 01/29/20 Travel 01/29/20 8:45 AM EST Office Visit [facility] [address] [address] Nikunj Laboy DPM Uncontrolled type 2 diabetes mellitus with hyperglycemia (HCC) (Primary Dx); Paronychia of great toe of left foot; Cellulitis of left foot 01/27/20 20 Refill [facility] 100 [facility] [place] [address] Omi Daly, DO Medication Refill 01/21/20 20 Travel 01/19/20 20 Refill [facility] [address] [place] [address] Vernon Salinas MD Medication Refill 01/19/20 Travel 01/19/20 2:40 PM EST Office Visit [facility] [address] [place] [address] Lyle Solo MD Parotid pleomorphic adenoma (Primary Dx); THAI (obstructive sleep apnea); Snoring 01/19/20 7:30 AM EST Office Visit [facility] [address] [facility] [address] [place] [address] Agustin Graves MD Dyslipidemia associated with type 2 diabetes mellitus (HCC) (Primary Dx); Vitamin D deficiency; Vitamin B12 deficiency 01/16/20 7:49 AM EST - 01/16/20 11:59 PM EST Hospital Encounter [facility] [address] [place] [address] Dyslipidemia associated with type 2 diabetes mellitus (HCC); Vitamin B12 deficiency Discharge Disposition: Home or Self Care 01/16/20 Travel 01/14/20 Refill [facility] [address] [place] [address] Omi Daly DO Medication Refill (tamsulosin (FLOMAX) 0.4 mg Oral [id number] Cap) 01/13/20 Travel 01/13/20 11:49 AM EST - 01/13/20 11:59 PM EST Hospital Encounter [facility] [address] [place], [place] [id number] Lyle Solo MD Morgan, Stephen R, DO Parotid mass Discharge Disposition: Home or Self Care 01/09/20 Travel 01/09/20 1:42 PM EDT - 01/09/20 11:59 PM EDT Hospital Encounter [facility] [address] [place] [address] Covid19, [facility] Pre-op testing; Encounter for laboratory testing for COVID-19 virus Discharge Disposition: Home or Self Care 01/06/20 Travel 01/02/20 Refill [facility] 100 [place] [address] Vernon Salinas MD Medication Refill 01/01/20 Travel 01/01/20 9:00 AM EDT Office Visit [facility] [address] [address] Nikunj Laboy, DPM Cellulitis of left foot (Primary Dx); Uncontrolled type 2 diabetes mellitus with hyperglycemia (HCC); Foot cramps; Paronychia of great toe of left foot 12/26/19 Patient Outreach [address] [place] [address] Alondra Menchaca PharmD Medication Management (Adherence Outreach) 12/18/[address] [address] Omi Daly DO Referral 12/17/[address] [place] [address] Vernon Salinas MD Medication Refill 12/15/19 Travel 12/15/19 2:40 PM EDT Office Visit [address] [address] Lyle Solo MD Parotid mass (Primary Dx); Hx of fci use of blood thinners 12/15/19 9:40 AM EDT Office Visit [facility] [address] [address] Alva Zelaya PA-C Urinary frequency (Primary Dx); BPH with obstruction/lower urinary tract symptoms; Incomplete emptying of bladder 12/12/19 Telephone [facility] 100 [place] [address] Omi Daly DO Referral; Medication Management 12/10/19 Telephone [facility] [address] [place] [address] Omi Daly DO Medication Refill 12/09/19 Telephone [facility] [address] [place] [address] Omi Daly DO Referral Follow-up 12/08/19 10:00 AM EDT Office Visit [facility] [address] [place] [address] Elba Tapia, RN Encounter for support and coordination of transition of care (Primary Dx) 12/08/19 Travel 12/08/19 9:45 AM EDT Office Visit [facility] [address] [place] [address] Omi Daly DO History of TIA (transient ischemic attack) (Primary Dx); Parotid mass; Essential hypertension 12/06/19 Telephone [facility] [address] [place] [address] Omi Daly DO Medication Refill 12/05/19 Travel 12/04/19 Telephone [facility] [place] [address] [place] [address] Marleen Cam, Clerical Staff Other; Procedure (US Parotid Biopsy ) 12/04/19 Patient Outreach [facility] [address] [place] [address] Sasha Messer, RN Hospital Follow Up; ED Follow-Up Call; Care Transition; CM - Medication Reconciliation 12/03/19 Orders Only Adult Med [address] [place] [address] [place] [address] Geri Garcia PAMayaC Parotid mass (Primary Dx) 12/01/19 9:23 PM EDT - 12/03/19 5:38 PM EDT Hospital Encounter [facility] [place] [address] Jordan Eduardo MD Transient ischemic attack, anterior circulation, acute (Primary Dx) Discharge Disposition: Home or Self Care 12/02/19 Travel 12/01/19 Travel 12/01/19 4:15 PM EDT - 12/01/19 8:36 PM EDT Emergency [facility] [address] [place], [place] [id number] Alma Villegas MD Adler, Jordan M, MD TIA (transient ischemic attack) (Primary Dx); Occlusion of left vertebral artery Discharge Disposition: Discharge/Readmit 11/28/19 Travel 11/28/19 8:30 AM EDT Office Visit [facility] [address] [place] [address] Omi Daly, Annual physical exam [...] EDT Hospital Encounter [facility] [address] [place] [address] Ina Overton MD BPH with obstruction/lower urinary tract symptoms Discharge Disposition: Home or Self Care 11/20/19 Travel 11/20/19 2:15 PM EDT - 11/20/19 3:30 PM EDT Surgery [facility] [address] [place] [address]. [place] [address] Ina Overton MD CYSTOSCOPY TRANSURETHRAL RESECTION PROSTATE - FULGURATION/EVACUATION OF CLOT 11/20/19 2:31 PM EDT Anesthesia Event [facility] [address] [place] [address] Luis A Rodney MD Collins, Angela, ACTUARIAL INTERN 11/18/19 Travel 11/16/19 Travel 11/16/19 2:45 PM EDT - 11/16/19 11:59 PM EDT Hospital Encounter [facility] [address] [place] [address] Covid19, [facility] Pre-op testing; Encounter for laboratory testing for COVID-19 virus Discharge Disposition: Home or Self Care 11/10/19 20 Refill [facility] 100 [place] [address] Vernon Salinas MD Medication Refill 11/10/19 Travel 11/06/19 Travel 11/06/19 9:45 AM EDT Office Visit [facility] [address] [place] [address] Jeffy Fuentes MD Essential hypertension (Primary Dx); S/P CABG x 3; Ischemic heart disease; Coronary artery disease involving makah heart without angina pectoris, unspecified vessel or lesion type 10/29/19 2:00 PM EDT Office Visit [facility] 100 [place] [address] Vernon Salinas MD Pre-op examination (Primary Dx); BPH with obstruction/lower urinary tract symptoms 10/29/19 Travel 10/28/[address] [address] Merle Mandujano MA Other 10/27/19 Travel 10/27/19 11:20 AM EDT Office Visit [address] [address] Alva Zelaya PA-C BPH with obstruction/lower urinary tract symptoms (Primary Dx); Incomplete bladder emptying; 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 dysfunction; Overactive bladder; Uncontrolled type 2 diabetes mellitus with hyperglycemia (HCC) 10/17/19 20 Telephone [facility] 100 [place] [address] Omi Daly DO Medication Management 10/15/19 20 Telephone [facility] 100 [place] [address] Omi Daly DO Prior Authorization (cologuard ) 10/13/19 20 Refill [facility] [address] [place] [address] Omi Daly DO Medication Refill 10/13/19 Travel 10/13/19 7:30 AM EDT Office Visit [facility] [address] [address] Agustin Graves MD Dyslipidemia associated with type 2 diabetes mellitus (HCC) (Primary Dx); Vitamin B12 deficiency 10/10/19 Telephone [facility] [address] [address] Agustin Graves MD Lab Orders 10/10/19 8:57 AM EDT - 10/10/19 11:59 PM EDT Hospital Encounter [facility] [address] [place] [address] Uncontrolled type 2 diabetes mellitus with hyperglycemia (HCC); Vitamin B12 deficiency; Vitamin D deficiency; Dyslipidemia associated with type 2 diabetes mellitus (HCC); Encounter for screening for malignant neoplasm of prostate ; Annual physical exam Discharge Disposition: Home or Self Care 10/10/19 Travel 10/06/19 Telephone [facility] [address] [address] Agustin Graves MD Labs Only 10/06/19 Refill [facility] [address] [place] [address] Omi Daly DO Medication Refill 09/29/19 Travel 09/29/19 10:20 AM EDT Office Visit [facility] [address] [address] Alva Zelaya PA-C BPH with obstruction/lower urinary tract symptoms (Primary Dx); Incomplete bladder emptying; 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 dysfunction; Overactive bladder; History of UTI; Uncontrolled type 2 diabetes mellitus with hyperglycemia (HCC) 09/11/19 Abstract [facility] [address] [place] [address] Manda Pringle RN 09/10/19 20 Refill [facility] [address] [place] [address] Omi Daly, DO Medication Refill 09/09/19 Telephone [facility] 100 [place] [address] Omi Daly, DO Medication Management (tamsulosin) 09/08/19 Orders Only [facility] [address] [facility] [address] [place] [address] Ina Overton MD BPH with obstruction/lower urinary tract symptoms 09/03/19 Travel 09/03/19 1:37 PM EDT - 09/03/19 11:59 PM EDT Hospital Encounter [facility] [address] [place] [address] Bilateral shoulder pain, unspecified chronicity Discharge Disposition: Home or Self Care 09/01/19 Travel 09/01/19 8:45 AM EDT Office Visit [facility] [address] [place] [address] Vernon Salinas MD Chronic pain of both shoulders (Primary Dx); Annual physical exam; Encounter for screening for malignant neoplasm of prostate 08/29/19 Travel 08/29/19 Telephone [facility] [address] [place] [address] Omi Daly, Medication Management 08/25/19 Telephone [facility] 1500 [facility] [address] [place] [phone] Agustin Graves MD CGMS Interpretation (Shilpi Pro placement); Appointment Needed (MNT Appt ) 08/25/19 Travel 08/25/19 9:00 AM EDT Office Visit [facility] [address] [facility] [address] [place] [phone] Laxmi Major LPN Dyslipidemia associated with type 2 diabetes mellitus (HCC) (Primary Dx) 08/22/19 Travel 08/22/19 Patient Outreach [facility] [address] [place] [address] Omi Daly DO Central Patient Navigator Outreach (AWV, colon, A1c) 08/15/19 20 Refill [facility] 100 [place] [address] Omi Daly, DO Medication Refill 08/14/19 Telephone [facility] [address] [facility] [address] [place] [phone] Agustin Graves MD CGMS Interpretation (Shilpi placement) 08/14/19 Travel 08/14/19 8:10 AM EDT Office Visit [address] [facility] [place] [phone] Agustin Graves MD Dyslipidemia associated with type 2 diabetes mellitus (HCC) (Primary Dx); Vitamin B12 deficiency; Vitamin D deficiency 08/13/[address] [facility] [address] [place] [phone] Agustin Graves MD Other (Office Visit Reminder) 08/11/19 4:30 PM EDT - 08/11/19 11:59 PM EDT Hospital Encounter [facility] [address] [address] Uncontrolled type 2 diabetes mellitus with hyperglycemia (HCC); Dyslipidemia associated with type 2 diabetes mellitus (HCC); Vitamin D deficiency; Vitamin B12 deficiency Discharge Disposition: Home or Self Care 08/11/19 Travel 08/01/19 20 Refill [facility] [address] [place] [address] Omi Daly, Medication Refill 07/31/19 20 Telephone [facility] [address] [employer] [address] [place] [phone] Agustin Graves MD Schedule Appointment 07/29/19 20 Refill [facility] [address] [place] [address] Vernon Salinas MD Medication Refill 07/27/19 20 Refill [facility] [address] [place] [address] Omi Daly, DO Medication Refill 07/18/19 20 Refill [facility] 100 [place] [address] Omi Daly, DO Medication Refill 07/17/19 20 Telephone [facility] [address] Alva Zelaya PA-C Other 07/04/19 20 Refill [facility] 1500 [facility] [address] [place] [address] Agustin Graves MD Medication Refill 06/27/19 [address] [address] Alva Zelaya PA-C Other (trimix prescription) 06/27/19 20 Travel 06/27/19 9:00 AM EDT Office Visit [address] [address] Alva Zelaya PA-C Other male erectile dysfunction (Primary Dx); BPH with obstruction/lower urinary tract symptoms; BXO (balanitis xerotica obliterans); Uncontrolled type 2 diabetes mellitus with hyperglycemia (HCC) 06/18/19 20 Refill [facility] [address] [place] [address] Omi Daly, DO Medication Refill 06/18/19 20 Refill [facility] [address] [place] [address] Omi Daly, DO Medication Refill 06/18/19 20 Travel 06/11/19 20 Refill [facility] 100 [place] [address] Omi Daly DO Medication Refill 05/23/19 Travel 05/23/19 Telephone [facility] [address] [place] [address] Omi Daly DO Diarrhea 05/14/19 Travel 05/12/19 Refill [facility] 1500 [facility] [address] [place] [address] Agustin Graves MD Medication Refill 05/09/19 9:45 AM EST Office Visit [facility] [address] Ina Overton MD BPH with obstruction/lower urinary tract symptoms (Primary Dx); Nocturia; BXO (balanitis xerotica obliterans); 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 dysfunction; Incomplete emptying of bladder; Recurrent UTI; Uncontrolled type 2 diabetes mellitus with hyperglycemia (HCC); Obstructive sleep apnea syndrome 05/06/19 Travel 04/30/19 Telephone [place] [id number] [address] Ina Overton MD Medication Management 04/23/19 Patient Outreach [facility] [address] [place] [address] Alondra Menchaca PharmD Medication Management (CMR) 04/22/19 Travel 04/22/19 1:15 PM EST Office Visit [facility] [address] [place] [address] Vernon Salinas MD Viral URI (Primary Dx); Essential hypertension; Gastroesophageal reflux disease without esophagitis 04/18/19 Orders Only [facility] [address] [address] Omi Daly DO Screening for colon cancer; Screening for cancer of the rectum 04/16/19 10:05 AM EST - 04/16/19 11:59 PM EST Hospital Encounter [facility] [address] [place] [address] Dyslipidemia associated with type 2 diabetes mellitus (HCC); Vitamin D deficiency; Vitamin B12 deficiency Discharge Disposition: Home or Self Care 04/10/19 2:45 PM EST Office Visit [facility] [address] [place] [address] Jeffy Fuentes MD Ischemic heart disease (Primary Dx); S/P CABG x 3; Other specified hypotension 04/09/19 11:00 AM EST Office Visit [address] [address] Vernon Salinas MD Dermatitis (Primary Dx) 04/08/19 [address] [address] Omi Daly, DO Medication Refill 04/07/19 2:15 PM EST Office Visit [facility] [address] [phone] Alva Zelaya PA-C Overactive bladder (Primary Dx); Incomplete emptying of bladder; BPH with obstruction/lower urinary tract symptoms; Uncontrolled type 2 diabetes mellitus with hyperglycemia (HCC); Abnormality of penis 04/07/19 20 Refill [facility] 1500 [facility] [address] [place] [address] Agustin Graves MD Medication Refill 03/18/19 [address] [address] Omi Daly, DO Medication Refill 03/14/19 20 Refill [facility] [address] [place] [address] Omi Daly, DO Medication Refill 03/14/19 11:00 AM EST - 03/14/19 11:59 PM EST Hospital Encounter [facility] [address] [place] [address] Jeffy Fuentes MD Ischemic heart disease; Coronary artery disease involving makah heart without angina pectoris, unspecified vessel or lesion type; S/P CABG x 3; Dizziness Discharge Disposition: Home or Self Care 03/11/20 19 Refill [facility] [address] [place] [address] MalikaOmi gasca, DO Medication Refill 02/21/20 10:45 AM EST Office Visit [facility] [address] [address] Jeffy Fuentes MD Coronary artery disease involving makah heart without angina pectoris, unspecified vessel or lesion type (Primary Dx); Ischemic heart disease; S/P CABG x 3; Dizziness; Lightheadedness; Other specified hypotension 02/14/20 8:30 AM EST Office Visit [address] [address] Vernon Salinas MD Essential hypertension (Primary Dx); Gastroesophageal reflux disease without esophagitis; Mixed hyperlipidemia 02/03/20 [address] [address] Malika, Omi, DO Medication Refill 02/02/20 8:30 AM EST Office Visit [address] [address] Dejuan Rosario APRN Psoriasis of scalp (Primary Dx); Acute pain of left shoulder; Uncontrolled type 2 diabetes mellitus with hyperglycemia (HCC); Class 2 severe obesity due to excess calories with serious comorbidity and body mass index (BMI) of 35.0 to 35.9 in adult (HCC); Bradycardia; Flu-like symptoms 01/30/20 3:10 PM EST Office Visit [facility] 1500 [facility] [address] [place] [address] Agustin Graves MD Dyslipidemia associated with type 2 diabetes mellitus (HCC) (Primary Dx); Vitamin B12 deficiency; Vitamin D deficiency 01/28/20 19 Telephone [facility] [address] [place] [address] Omi Daly, DO Orders 01/26/20 11:14 AM EST - 01/26/20 11:59 PM EST Hospital Encounter [facility] [address] [place] [address] Dyslipidemia associated with type 2 diabetes mellitus (HCC); Vitamin D deficiency; Vitamin B12 deficiency; Muscle pain Discharge Disposition: Home or Self Care 01/26/20 11:00 AM EST Ancillary Procedure [facility] [address] [place] [address] Chronic left shoulder pain 01/26/20 8:15 AM EST Office Visit [facility] 100 [place] [address] Vernon Salinas MD Flu vaccine need (Primary Dx); Chronic left shoulder pain; Muscle pain; Essential hypertension; Mixed hyperlipidemia 01/24/20 3:30 PM EST Office Visit [facility] [address] [place] [address] Delma Rothman, RD,LD,CDE Obesity, Class I, BMI 30-34.9 (Primary Dx) 01/21/20 19 Refill [facility] 100 [place] [address] Omi Daly, DO Medication Refill 01/17/20 19 Refill [facility] 100 [place] [address] Omi Daly, DO Medication Refill 01/10/20 5:00 PM EDT Office Visit [facility] [address] [place] [address] Obesity (BMI 30-39.9) (Primary Dx) 12/27/19 4:30 PM EDT Office Visit [facility] [address] [place] [address] Delma Rothman, RD,LD,CDE Obesity (BMI 30-39.9) (Primary Dx) 12/24/19 19 Telephone [facility] 100 [place] [address] Omi Daly DO Medication Change 12/21/19 Refill [facility] [address] [place] [address] Omi Daly, Medication Refill 12/17/19 Refill [facility] [address] [place] [address] Omi Daly, Medication Refill 12/11/19 Refill [facility] [place] [address] Vernon Salinas MD Medication Refill 12/10/19 Telephone [facility] [address] [place] [address] Omi Daly DO Prior Authorization 12/10/19 4:15 PM EDT Office Visit [facility] [address] [place] [address] Osman Hagen MD Dyslipidemia associated [...] (HCC); Vitamin D deficiency 12/07/19 Telephone [facility] 100 [place] [address] Omi Daly DO Other 12/04/19 5:00 PM EDT Office Visit [facility] [address] [place] [address] 2, Janeth Rn Obesity (BMI 30-39.9) (Primary Dx) 11/29/19 19 Refill [facility] [address] [place] [address] Vernon Salinas MD Medication Refill 11/29/19 Refill [facility] [address] [place] [address] Omi Daly, DO Medication Refill 11/28/19 19 Refill [facility] 1500 [facility] [address] [place] [address] Agustin Graves MD Medication Refill 11/27/19 4:56 PM EDT - 11/27/19 11:59 PM EDT Hospital Encounter [facility] [address] [place] [address] BPH with obstruction/lower urinary tract symptoms Discharge Disposition: Home or Self Care 11/27/19 1:00 PM EDT Office Visit [facility] 100 [place] [address] Vernon Salinas MD Annual physical exam (Primary Dx); Viral URI with cough; Essential hypertension; Mixed hyperlipidemia 11/27/19 6:00 PM EDT Office Visit [facility] [address] [place] [address],LD,CDE Obesity (BMI 30-39.9) (Primary Dx) 11/27/19 4:00 PM EDT Office Visit [facility] [address] [address] Alva Zelaya, PAMayaC Incomplete bladder emptying (Primary Dx); BPH with obstruction/lower urinary tract symptoms; Enlarged prostate 11/22/19 19 Refill [facility] [address] [place] [address] Omi Daly, DO Medication Refill 11/22/19 5:30 PM EDT Office Visit [facility] [address] [place] [address] Obesity (BMI 30-39.9) (Primary Dx) 11/20/19 4:15 PM EDT Office Visit [facility] [address] [place] [address] Osman Hagen MD Dyslipidemia associated [...] - 11/16/19 11:59 PM EDT Hospital Encounter [facility] Sleep [facility] Center [address] [place] [address] Obstructive sleep apnea (Primary Dx) Discharge Disposition: Home or Self Care 11/06/19 5:30 PM EDT Office Visit [facility] [address] [place] [address] Obesity (BMI 30-39.9) (Primary Dx); Dietary counseling and surveillance 11/01/19 Refill [facility] [address] [place] [address] Omi Daly DO Medication Refill 10/30/19 9:50 AM EDT Office Visit [facility] 1500 [facility] [address] [place] [address] Agustin Graves MD Dyslipidemia associated with type 2 diabetes mellitus (HCC) (Primary Dx); Vitamin B12 deficiency; Elevated lipoprotein(a); Vitamin D deficiency 10/29/19 6:00 PM EDT Office Visit [facility] [address] [place] [address] Obesity (BMI 30-39.9) (Primary Dx) 10/26/19 3:45 PM EDT Office Visit [facility] [address] [place] [address] Dejuan Rosario APRN UTI (urinary tract infection), uncomplicated (Primary Dx); Dysuria 10/26/19 Telephone [facility] [address] [place] [address] Omi Daly DO Other 10/23/19 2:30 PM EDT - 10/23/19 11:59 PM EDT Hospital Encounter [facility] [address] [place] [address] Obstructive sleep apnea (Primary Dx) Discharge Disposition: Home or Self Care 10/23/19 2:15 PM EDT Office Visit [facility] [address] [facility] [address] [place] [address] Ruben Kelly MD Excessive sleepiness; Primary snoring; Obstructive sleep apnea; Obesity due to excess calories without serious comorbidity, unspecified classification 10/22/19 3:48 PM EDT - 10/22/19 11:59 PM EDT Hospital Encounter [facility] [address] [place] [address] Dyslipidemia associated with type 2 diabetes mellitus (HCC); Elevated lipoprotein(a); Vitamin D deficiency Discharge Disposition: Home or Self Care 10/22/19 Telephone [facility] [address] [place] [address] Omi Daly DO Dizziness 10/22/[address] [place] [address] Agustin Graves MD Labs Only 10/22/19 6:30 PM EDT Office Visit [facility] [address] [place] [address] Delma Rothman, RD,LD,CDE Obesity (BMI 30-39.9) (Primary Dx) 10/20/19 19 Refill [facility] [address] [place] [address] Omi Daly DO Medication Refill 10/18/19 19 Refill [facility] [address] [facility] [address] [place], [place] [phone] Stevie Acosta MD Medication Refill 10/17/19 19 Telephone [facility] [address] [place] [address] Omi Daly, Other 10/15/19 4:00 PM EDT Office Visit [facility] [address] [place] [address] Omi Daly, Dyslipidemia associated with type 2 diabetes mellitus (HCC) (Primary Dx); Uncontrolled type 2 diabetes mellitus with hyperglycemia (HCC); Type 2 diabetes mellitus without complication, unspecified whether intermission coordinator insulin use (HCC); Essential hypertension 10/15/19 11:15 AM EDT Office Visit [facility] [address] [place] [address] Osman Hagen MD Coronary artery disease involving makah heart without angina pectoris, unspecified vessel or lesion type (Primary Dx); Elevated lipoprotein(a); Gastroesophageal reflux disease without esophagitis; Essential hypertension; Mixed hyperlipidemia; S/P CABG x 3; Uncontrolled type 2 diabetes mellitus with hyperglycemia (HCC); Vitamin D deficiency 10/12/19 11:15 AM EDT Office Visit [facility] [address] [place] [address] Drea Acuna APRN Degenerative disc disease, lumbar (Primary Dx); Chronic pain syndrome; Sacroiliitis; Spondylosis of lumbar region without myelopathy or radiculopathy 10/08/19 5:30 PM EDT Office Visit [facility] [address] [place] [address] 2, Janeth Rn Obesity (BMI 30-39.9) (Primary Dx) 10/04/19 6:00 PM EDT - 10/04/19 11:59 PM EDT Hospital Encounter [facility] Physical Therapy [address] [place] [address] Rafia Thomas, PT Discharge Disposition: Home or Self Care 10/02/19 19 Refill [facility] 100 [place] [address] Omi Daly, Medication Refill 09/21/19 19 8:15 AM EDT - 09/21/19 8:45 AM EDT Surgery [facility] [place] [address] Stevie Acosta MD ESOPHAGOGASTRODUODENOSCOPY (ANESTHESIA) 09/21/19 8:25 AM EDT Anesthesia Event [facility] [place] [address] Mary Luna MD Merkle Serey, Jennifer L, NP 09/21/19 7:14 AM EDT - 09/21/19 9:51 AM EDT Hospital Encounter [facility] [place] [address] Stevie Acosta MD Eosinophilic esophagitis Discharge Disposition: Home or Self Care 09/17/19 19 Refill [facility] [address] [place] [address] Vernon Salinas MD Medication Refill 09/11/19 7:00 PM EDT - 09/11/19 11:59 PM EDT Hospital Encounter [facility] Sleep Disorder Center [address] [place] [address] Obstructive sleep apnea (Primary Dx) Discharge Disposition: Home or Self Care 09/04/19 5:00 PM EDT - 09/04/19 11:59 PM EDT Hospital Encounter [facility] Physical Therapy [address] [place] [address] Rafia Thomas, PT Discharge Disposition: Home or Self Care 09/03/19 11:00 AM EDT Office Visit [facility] [address] [facility] [address] [place] [address] Ruben Kelly MD Primary snoring; Obstructive sleep apnea 09/02/19 19 Refill [facility] 100 [place] [address] Omi Daly, Medication Refill 08/30/19 Refill [facility] [address] [place] [address] Vernon Salinas MD Medication Refill 08/30/19 19 5:30 PM EDT - 08/30/19 11:59 PM EDT Hospital Encounter [address] [place] [address] Rafia Thomas, PT Discharge Disposition: Home or Self Care 08/28/19 11:30 AM EDT Office Visit [facility] [address] [place] [address] Urvashi Cowart, DOMONIQUE Obesity (BMI 30-39.9) (Primary Dx) 08/27/19 Refill [facility] [address] [place] [address] MalikaOmi gasca, DO Medication Refill 08/21/19 Refill [facility] [address] [place] [address] MalikaOmi, DO Medication Refill 08/16/19 19 Telephone [facility] [address] [place] [address] MalikaOmi lewis, DO Note 08/14/19 2:00 PM EDT Office Visit [facility] [address] [place] [address] Obesity, Class II, BMI 35-39.9 (Primary Dx) 08/14/19 19 4:42 PM EDT - 08/14/19 11:59 PM EDT Hospital Encounter [address] [place] [address] Rafia Thomas, PT Discharge Disposition: Home or Self Care 08/13/19 19 Orders Only [address] [place] [address] Agustin Graves MD Uncontrolled type 2 diabetes mellitus with hyperglycemia (HCC) (Primary Dx) 08/13/19 19 Telephone [facility] [address] [place] [address] Omi Daly, DO Prior Authorization 08/10/19 19 Telephone [facility] 100 [place] [address] Omi Daly, DO Prior Authorization 08/09/19 19 Telephone [facility] [address] [place] [address] Omi Daly, DO Prior Authorization 08/09/19 19 4:59 PM EDT - 08/09/19 11:59 PM EDT Hospital Encounter [facility] Physical Therapy [address] [place] [address] Rafia Thomas, PT Discharge Disposition: Home or Self Care 08/07/19 5:20 PM EDT - 08/07/19 11:59 PM EDT Hospital Encounter [facility] Physical [address] [place] [address] Rafia Thomas, PT Discharge Disposition: Home or Self Care 08/07/19 8:15 AM EDT Office Visit [facility] [address] [place] [address] Barbara Cole APRN Vitamin D deficiency (Primary Dx); SOB (shortness of breath); DDD (degenerative disc disease), lumbar; Elevated lipoprotein(a); Esophageal dysphagia; Dyslipidemia associated with type 2 diabetes mellitus (HCC); Uncontrolled type 2 diabetes mellitus with hyperglycemia (HCC); Essential hypertension; Mixed hyperlipidemia; S/P CABG x 3 08/03/19 19 Telephone [facility] 1500 [facility] [address] [place] [address] Agustin Graves MD Results 08/02/19 19 Orders Only [facility] 1500 [facility] [address] [place] [address] Agustin Graves MD Dyslipidemia associated with type 2 diabetes mellitus (HCC) (Primary Dx); Elevated lipoprotein(a); Vitamin D deficiency 08/02/19 19 Refill [facility] [address] [place] [address] Omi Daly DO Medication Refill 07/31/19 5:14 PM EDT - 07/31/19 11:59 PM EDT Hospital Encounter [facility] Physical Therapy [address] [place] [address] Rafia Thomas, PT Discharge Disposition: Home or Self Care 07/30/19 12:25 PM EDT - 07/30/19 11:59 PM EDT Hospital Encounter [facility] [address] [place] [address] Dyslipidemia associated with type 2 diabetes mellitus (HCC); Vitamin D deficiency Discharge Disposition: Home or Self Care 07/30/19 Telephone [facility] [address] [address] Agustin Graves MD CGMS Interpretation (Shilpi Pro Due) 07/30/19 5:00 PM EDT Office Visit [facility] [address] [place] [address],LD,CDE Obesity (BMI 30-39.9) (Primary Dx) 07/30/19 11:20 AM EDT Office Visit [facility] [address] [address] Agustin Graves MD Dyslipidemia associated with type 2 diabetes mellitus (HCC) (Primary Dx); Vitamin D deficiency; Coronary artery disease involving makah heart without angina pectoris, unspecified vessel or lesion type 07/25/19 Telephone [facility] [address] [facility] [address] [address] Carlos Langston MD Orders (PT orders) 07/24/19 4:12 PM EDT - 07/24/19 11:59 PM EDT Hospital Encounter [facility] Physical [address] [place] [address] Rafia Thomas, PT Discharge Disposition: Home or Self Care 07/23/19 19 1:30 PM EDT Office Visit [facility] [address] [place] [address] Delma Rothman, RD,LD,CDE Uncontrolled type 2 diabetes mellitus with hyperglycemia (HCC) (Primary Dx) 07/20/19 19 Telephone [facility] [address] [facility] [address] [facility] [address] Stveie Acosta MD Results; Orders 07/18/19 9:45 AM EDT - 07/18/19 10:00 AM EDT Surgery [facility] [address] [place] [address] Stevie Acosta MD ESOPHAGOGASTRODUODENOSCOPY (ANESTHESIA) 07/18/19 10:01 AM EDT Anesthesia Event [facility] [address] [place] [address] Barber Lindsey MD Collins, Angela, BRIELLE 07/18/19 8:00 AM EDT - 07/18/19 11:13 AM EDT Hospital Encounter [facility] [address] [place] [address] Stevie Acosta MD Pharyngoesophageal dysphagia Discharge Disposition: Home or Self Care 07/16/19 19 1:30 PM EDT Office Visit [facility] [address] [place] [address] Delma Rothman, RD,LD,CDE Uncontrolled type 2 diabetes mellitus with hyperglycemia (HCC) (Primary Dx) 07/13/19 19 Refill [facility] [place] [address] Omi Daly DO Medication Refill 07/12/19 19 8:45 AM EDT Office Visit [facility] [address] [place] [address] [address] [place] [address] Carlos Langston MD Spondylosis of lumbar region without myelopathy or radiculopathy (Primary Dx); Chronic pain syndrome; Sacroiliitis 07/09/19 Telephone [facility] [address] [place] [address] Analy Stafford MA Results 07/09/19 1:30 PM EDT Office Visit [facility] [address] [place] [address] Obesity, Class III, BMI 40-49.9 (morbid obesity) (HCC) (Primary Dx) 07/05/19 Telephone [facility] [address] [facility] [address] [facility] [place] [address] Lyle Rangel MD PHD Other 07/05/19 1:30 PM EDT - 07/05/19 11:59 PM EDT Hospital Encounter [facility] [address] [address] Snoring; DDD (degenerative disc disease), lumbar; Gastroesophageal reflux disease without esophagitis; Essential hypertension; Other hyperlipidemia; S/P CABG x 3; Uncontrolled type 2 diabetes mellitus with hyperglycemia ([facility]); Vitamin B12 deficiency; Vitamin D deficiency; Ischemic heart disease Discharge Disposition: Home or Self Care 07/03/19 19 Refill [facility] [address] [place] [address] Omi Daly DO Medication Refill 06/28/19 9:30 AM EDT Office Visit [facility] [address] [place] [address] Barbara Cole APRN Snoring (Primary Dx); DDD (degenerative disc disease), lumbar; Gastroesophageal reflux disease without esophagitis; Essential hypertension; Other hyperlipidemia; S/P CABG x 3; Uncontrolled type 2 diabetes mellitus with hyperglycemia ([facility]); Vitamin B12 deficiency; Vitamin D deficiency; Ischemic heart disease 06/19/19 19 Refill [facility] [address] [place] [address] Vernon Salinas MD Medication Refill 06/08/19 19 Refill [facility] [address] [place] [address] Patsy Padron MD Medication Refill 05/30/19 Refill [facility] [address] [place] [address] Omi Daly DO Medication Refill 05/29/19 1:45 PM EDT Office [place] [facility]y [facility] [address] [place] [address] Vernon Salinas MD Obesity, Class II, BMI 35-39.9 (Primary Dx); Type 2 diabetes mellitus without complication, unspecified whether fci insulin use (HCC); Essential hypertension 05/28/19 2:40 PM EDT - 05/28/19 11:59 PM EDT Hospital Encounter [facility] [address] [place] [address] Type 2 diabetes mellitus without complication, without long-term current use of insulin (HCC) Discharge Disposition: Home or Self Care 05/28/19 10:45 AM EDT Office Visit [facility] [address] [address] Ina Overton MD Benign non-nodular prostatic hyperplasia with lower urinary tract symptoms (Primary Dx); Incomplete bladder emptying; Overactive bladder; Uncontrolled type 2 diabetes mellitus with hyperglycemia (HCC); Yeast dermatitis of penis; Phimosis; Frequency of micturition; Glucosuria; Enlarged prostate 05/21/19 Orders Only [facility] Cristy Walker [address] [place] [address] Vernon Salinas MD Type 2 diabetes mellitus without complication, without long-term current use of insulin (HCC) (Primary Dx) 05/21/19 Telephone [facility] Cristy Walker [address] [place] [address] Omi Daly DO Orders 05/21/19 11:35 AM EDT Hospital Encounter [facility] [address] [place] [address] Left without seen 05/16/19 3:45 PM EST Office Visit [facility] [address] [place] [address] Vernon Salinas MD Acute bacterial sinusitis (Primary Dx); Cellulitis of leg, left 05/16/19 Telephone [facility] [address] [place] [address] Omi Daly DO Medication Management 05/16/19 Refill [facility] [address] [place] [address] Omi Daly DO Medication Refill 05/11/19 7:41 AM EST - 05/11/19 11:59 PM EST Hospital Encounter [facility] [address] [place] [address] Building 1 [address] 4[address] [place] [address] Chelita Reynoso APRN Spondylosis of lumbar region without myelopathy or radiculopathy Discharge Disposition: Home or Self Care 04/29/19 3:00 PM EST Office Visit [facility] [address] [place] [address] Vernon Salinas MD Type 2 diabetes mellitus without complication, without long-term current use of insulin (HCC) (Primary Dx); Obesity, Class II, BMI 35-39.9; DDD (degenerative disc disease), lumbar 04/25/19 Telephone [facility] [address] [place] [address] Chelita Reynoso APRN Other (RFA Denial) 04/23/19 Telephone [facility] [address] [place] [address] Omi Daly DO Referral 04/23/19 8:30 AM EST Procedure visit [facility] [address] [place] [address] Ina Overton MD Benign non-nodular prostatic hyperplasia with lower urinary tract symptoms (Primary Dx); Frequency of micturition; Incomplete bladder emptying; History of UTI; 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 dysfunction; Glucosuria; Uncontrolled type 2 diabetes mellitus with hyperglycemia (HCC); Candidal balanitis 04/10/19 10:30 AM EST Office Visit [facility] [address] [phone] Ina Overton MD Benign non-nodular prostatic hyperplasia with lower urinary tract symptoms (Primary Dx); Weak urinary stream; History of UTI; Overactive bladder; Urge incontinence; Yeast dermatitis of penis; Uncontrolled type 2 diabetes mellitus with hyperglycemia (HCC); Candidal balanitis; Glucosuria; Prostate cancer screening 04/04/19 19 Refill [facility] [address] [place] [address] Starla Nice MA Medication Refill 03/27/19 19 Refill [facility] [address] [place] [address] Omi Daly, Medication Refill 03/25/19 19 Refill [facility] [address] [place] [address] Omi Daly, DO Medication Refill 03/21/19 19 2:00 PM EST Office Visit [facility] [address] [place] [address] Vernon Salinas MD Screening for colon cancer (Primary Dx); Controlled type 2 diabetes mellitus without complication, without long-term current use of insulin (HCC); Acute bacterial sinusitis; Esophageal stricture 03/18/19 19 Refill [facility] [address] [place] [address] Vernon Salinas MD Medication Refill 03/13/19 10:00 AM EST Office Visit [facility] [address] [phone] Chelita Reynoso APRN Spondylosis of lumbar region without myelopathy or radiculopathy (Primary Dx); Chronic pain syndrome; Sacroiliitis 03/07/20 18 8:45 AM EST - 03/07/20 18 11:59 PM EST Hospital Encounter [facility] [address] [facility] Building 1 [address] 4th Floor - [address] [place] [address] Chelita Reynoso APRN Spondylosis of lumbar region without myelopathy or radiculopathy Discharge Disposition: Home or Self Care 03/02/20 18 Refill [facility] [address] [facility] [place] [address] Vernon Salinas MD Medication Refill 02/23/20 18 Refill [facility] [address] [facility] [place] [address] Omi Daly, DO Medication Refill 02/21/20 18 Refill [facility] [address] [place] [address] Omi Daly, DO Medication Refill 02/15/20 18 Refill [facility] [address] [facility] [place] [address] Omi Daly, DO Medication Refill 02/12/20 18 Refill [facility] [address] [place] [address] Vernon Salinas MD Medication Refill 02/05/20 18 Refill [facility] [address] [facility] [place] [address] Omi Daly, DO Medication Refill 01/31/20 18 Refill [facility] [address] [facility] [place] [address] Omi Daly, DO Medication Refill 01/29/20 18 Telephone [facility] [address] [facility] [place] [address] Omi Daly, Medication Management 01/26/20 18 Refill [facility] [address] [facility] [place] [address] Omi Daly, DO Medication Refill 01/22/20 18 Refill [facility] [address] [place] [address] Starla Nice MA Medication Refill 01/18/20 18 Refill [facility] [address] [facility] [address] [place] [address] Angelina Zaldivar MD Medication Refill 01/11/20 18 11:00 AM EDT Office Visit [address] [phone] Chelita Reynoso APRN Spondylosis of lumbar region without myelopathy or radiculopathy (Primary Dx); Chronic pain syndrome; Sacroiliitis 12/21/19 18 Refill [facility] [address] [place] [address] Vernon Salinas MD Medication Refill 12/13/19 [address] [place] [address] Carlos Langston MD Medication Refill (Flexeril) 12/11/19 18 Refill [facility] [address] [phone] Jeffy Fuentes MD Medication Refill (Isosorb Sully) 12/11/19 18 Refill [place] [address] [place] [phone] Carlos Langston MD Medication Refill (Flexeril) 12/07/19 18 7:33 AM EDT - 12/07/19 18 11:59 PM EDT Hospital Encounter [facility] [address] [place] [address] 1 [address] 4th Floor [address] [place] [address] Carlos Langston MD Grainger, Jonathan Kern, MD Chronic pain syndrome; Spondylosis of lumbar region without myelopathy or radiculopathy; Sacroiliitis Discharge Disposition: Home or Self Care 12/06/19 18 Telephone [facility] [address] [place] [address] Carlos Langston MD Other (procedure) 12/02/19 9:03 AM EDT - 12/02/19 11:59 PM EDT Hospital Encounter [facility] [address] [place] [address] Hepatitis C antibody positiv e in blood; Dysuria Discharge Disposition: Home or Self Care 12/02/19 18 Refill [facility] [place] [address] Omi Daly, DO Medication Refill 12/02/19 9:30 AM EDT Office Visit [facility] [place] [address] Vernon Salinas MD Dysuria (Primary Dx); Essential hypertension; Controlled type 2 diabetes mellitus without complication, without long-term current use of insulin (HCC); Hepatitis C antibody positive in blood 11/28/19 Orders Only [facility] [address] [place] [address] Vernon Salinas MD Hepatitis C antibody positive in blood (Primary Dx) 11/27/19 18 Orders Only [facility] [address] [place] [address] Vernon Salinas MD Type 2 diabetes mellitus without complication, unspecified whether intermission coordinator insulin use (HCC) (Primary Dx) 11/26/19 9:17 AM EDT - 11/26/19 11:59 PM EDT Hospital Encounter [facility] [address] [place] [address] Dysuria; Annual physical exam; Enlarged prostate; Type 2 diabetes mellitus without complication, unspecified whether intermission coordinator insulin use (HCC) Discharge Disposition: Home or Self Care 11/23/19 18 Refill [facility] [address] [place] [address] Omi Daly, DO Medication Refill (Metoprolol) 11/16/19 18 Refill [facility] [address] [place] [address] Starla Nice MA Medication Refill 11/16/19 18 Refill [facility] [address] [place] [address] Omi Daly, DO Medication Refill 11/14/19 18 8:00 AM EDT Office Visit [facility] [address] [place] [address] Vernon Salinas MD Enlarged prostate (Primary Dx); Chronic fatigue 11/09/19 Telephone [place] [address] [place] [address] Carlos Langston MD Results (x ray) 11/07/19 4:12 PM EDT - 11/07/19 11:59 PM EDT Hospital Encounter [address] [address] Carlos Langston MD Chronic pain syndrome; Spondylosis of lumbar region without myelopathy or radiculopathy; Sacroiliitis Discharge Disposition: Home or Self Care 11/07/19 3:00 PM EDT Office Visit [facility] [place] [address] [place] [address] Carlos Langston MD Spondylosis of lumbar region without myelopathy or radiculopathy (Primary Dx); Chronic pain syndrome; Sacroiliitis 11/03/19 18 Telephone [facility] [address] [place] [address] Omi Daly, DO Medication Refill 10/29/19 18 5:30 PM EDT Office Visit [facility] [address] [address] Serg Mcgill DO Puncture wound of right foot, initial encounter (Primary Dx) 10/27/19 18 4:00 PM EDT Clinical Support [facility] [address] [place] [address] Michelle Baig, RMYoli Immunization due (Primary Dx) 10/16/19 18 3:30 PM EDT Office Visit [facility] [address] [place] [address] Vernon Salinas MD Annual physical exam (Primary Dx); DDD (degenerative disc disease), lumbar; Chronic right-sided low back pain with right-sided sciatica 10/12/19 5:12 PM EDT - 10/12/19 11:59 PM EDT Hospital Encounter [facility] [address] [place] [address] Dysuria; Controlled type 2 diabetes mellitus without complication, without long-term current use of insulin (HCC) Discharge Disposition: Home or Self Care 10/11/19 Telephone [facility] [place] [address] Omi Daly DO Prior Authorization 10/11/19 18 8:00 AM EDT Office Visit [facility] [address] [place] [address] Vernon Salinas MD Controlled type 2 diabetes mellitus without complication, without long-term current use of insulin (HCC) (Primary Dx); Dysuria; Anhidrosis 10/10/19 18 Telephone [facility] [place] [address] Elba Tapia RN Other 10/09/19 18 Telephone [facility] [address] [facility] [place] [address] Omi Daly DO Prior Authorization 10/09/19 18 Telephone [facility] [address] [facility] [place] [address] Omi Daly DO Prior Authorization 10/07/19 18 Orders Only [facility] [address] [place] [address] Vernon Salinas MD Type 2 diabetes mellitus without complication, unspecified whether fci insulin use (HCC) (Primary Dx) 10/07/19 18 Telephone [facility] [address] [place] [address] Omi Daly, Prior Authorization 10/06/19 18 Telephone [facility] [address] [place] [address] Omi Daly, Prior Authorization 10/05/19 18 Telephone [facility] [address] [place] [address] Omi Daly, Prior Authorization 10/05/19 18 Telephone [facility] [address] [place] [address] Omi Daly, Medication Change 10/05/19 18 10:20 AM EDT - 10/05/19 18 11:59 PM EDT Hospital Encounter [facility] [address] [place] [address] Type 2 diabetes mellitus without complication, without long-term current use of insulin (HCC) Discharge Disposition: Home or Self Care 10/04/19 18 1:00 PM EDT Office Visit [facility] [address] [place] [address] Vernon Salinas MD Screening for colon cancer (Primary Dx); Type 2 diabetes mellitus without complication, without long-term current use of insulin (HCC) 10/04/19 18 9:53 AM EDT - 10/04/19 18 11:59 PM EDT Hospital Encounter [address] [address] Acute pyelonephritis Discharge Disposition: Home or Self Care 10/03/19 18 9:59 AM EDT - 10/03/19 18 11:59 PM EDT Hospital Encounter [address] [address] Acute pyelonephritis Discharge Disposition: Home or Self Care 10/02/19 18 9:54 AM EDT - 10/02/19 18 11:59 PM EDT Hospital Encounter [facility] [address] [place] [id number] Acute pyelonephritis Discharge Disposition: Home or Self Care 10/01/19 18 9:45 AM EDT - 10/01/19 18 11:59 PM EDT Hospital Encounter [facility] [address] [place] [address] Acute pyelonephritis Discharge Disposition: Home or Self Care 09/30/19 18 9:46 AM EDT - 09/30/19 18 11:59 PM EDT Hospital Encounter [facility] [address] [place] [address] Acute pyelonephritis Discharge Disposition: Home or Self Care 09/29/19 18 10:54 AM EDT - 09/29/19 18 11:59 PM EDT Hospital Encounter [address] [address] Acute pyelonephritis Discharge Disposition: Home or Self Care 09/28/19 18 9:49 AM EDT - 09/28/19 18 11:59 PM EDT Hospital Encounter [address] [address] Acute pyelonephritis Discharge Disposition: Home or Self Care 09/27/19 18 10:40 AM EDT - 09/27/19 11:59 PM EDT Hospital Encounter [address] [address] Acute pyelonephritis Discharge Disposition: Home or Self Care 09/26/19 Patient Outreach [facility] [address] [place] [address] Elba Tapia, JAMISON Hospital Follow Up 09/26/19 Patient Outreach [facility] [address] [place] [address] Laurel Hodgson RN Care Management - Chart Review (hospital discharge reviewed) 09/26/19 18 9:59 AM EDT - 09/26/19 18 11:59 PM EDT Hospital Encounter [address] [address] Acute pyelonephritis Discharge Disposition: Home or Self Care 09/21/19 18 7:56 AM EDT - 09/25/19 18 6:15 PM EDT Hospital Encounter [facility] [address] [facility] [place] [id number] Marlon Yarbrough MD Discharge Disposition: Home or Self Care 09/21/19 18 3:55 AM EDT - 09/21/19 18 7:24 AM EDT Emergency [facility] [address] [facility] [place] [address] Jasper Dixon MD Krusling, Edward J, MD Pyelonephritis (Primary Dx) Discharge Disposition: Short Term Hospital 09/06/19 18 Refill [facility] [address] [place] [address] Omi Daly, Medication Refill 08/04/19 18 Telephone [facility] [address] [place] [address] Omi Daly DO Abscess 07/25/19 18 Telephone [facility] [address] [place] [address] Omi Daly DO Medication Refill 07/24/19 18 Refill [facility] [address] [place] [address] Oim Daly DO Medication Refill 07/21/19 18 9:15 AM EDT Office Visit [facility] [address] [place] [address] Omi Daly DO BPH with urinary obstruction (Primary Dx) 07/12/19 18 Telephone [facility] [address] [place] [address] Omi Daly DO Medication Management 07/11/19 18 Refill [facility] [address] [place] [address] Omi Daly, Medication Refill 07/09/19 18 Refill [facility] [address] [place] [address] Malika, Omi, DO Medication Refill 06/12/19 18 Telephone [facility] [address] [place] [place] [address] Omi Daly, DO Urinary Tract Infection 06/07/19 18 Refill [facility] [place] [address] Omi Daly, DO Medication Refill 05/22/19 18 Refill [facility] [address] [place] [address] Omi Daly, DO Medication Refill 05/01/19 18 Telephone [facility] [address] [facility] [address] [place] [address] Angelina Zaldivar MD Samples ([facility]) 04/22/19 18 Refill [facility] [address] [place] [address] Omi Daly, DO Medication Refill 04/19/19 18 Refill [facility] [address] [place] [address] Omi Daly, DO Medication Refill 04/03/19 18 Telephone [facility] [address] [place] [address] Omi Daly, DO Vaginitis 03/26/19 18 Telephone [facility] [address] [address] Jeffy Fuentes MD Visit Follow Up 03/23/19 18 Refill [facility] [address] [facility] [place] [address] Omi Daly, DO Medication Refill 03/07/20 17 Refill [facility] [address] [place] [address] Patsy Padron MD Medication Refill 02/08/20 17 Refill [facility] [address] [place] [address] Omi Daly, DO Medication Refill 01/17/20 17 Refill [facility] [address] [place] [address] Omi Daly, DO Medication Refill 01/04/20 17 Refill [facility] [address] [place] [address] Patsy Padron MD Medication Refill 01/04/20 17 Refill [facility] [address] [place] [address] Omi Daly, DO Medication Refill 12/26/19 17 Telephone [facility] [address] [facility] [address] [place] [address] Angelina Zaldivar MD Samples (Bydureon) 12/21/19 17 Refill [facility] [address] [place] [address] Jeffy Fuentes MD Medication Refill (Isosorbide refill / [facility]) 12/21/19 17 Refill [facility] [address] [place] [address] Omi Daly, DO Medication Refill 12/21/19 17 Telephone [facility] [address] [facility] [address] [place] [address] Angelina Zaldivar MD Medication Management 12/03/19 17 8:45 AM EDT Office Visit [facility] [address] [place] [address] Vernon Salinas MD Abscess (Primary Dx) 11/27/19 17 Refill [facility] [address] [place] [address] Omi Daly, DO Medication Refill 11/08/19 17 9:30 AM EDT Office Visit [facility] [address] [facility] [address] [place] [address] Angelina Zaldivar MD Type 2 diabetes mellitus without complication, without long-term current use of insulin (HCC) (Primary Dx); Hyperlipidemia associated with type 2 diabetes mellitus (HCC); Hypertension associated with diabetes (HCC); Vitamin D deficiency; Vitamin B12 deficiency; Candidiasis 11/03/19 17 9:15 AM EDT - 11/03/19 17 11:59 PM EDT Hospital Encounter [facility] [address] [facility] [place] [address] Type 2 diabetes mellitus wit h complication, without long-term current use of insulin (HCC) Discharge Disposition: Home or Self Care 11/02/19 17 Telephone [facility] [address] [facility] [address] [place] [address] Angelina Zaldivar MD Labs Only 10/31/19 17 Telephone [facility] [address] [facility] [address] [place] [address] Angelina Zaldivar MD Referral ([facility]) 10/31/19 17 Refill [facility] [address] [place] [address] Omi Daly, DO Medication Refill 10/28/19 17 Telephone [facility] [address] [facility] [address] [place] [address] Angelina Zaldivar MD Samples 10/25/19 17 Refill [facility] [address] [place] [address] Omi Daly, DO Medication Refill 10/11/19 17 Refill [facility] [address] [place] [address] Omi Daly, DO Medication Refill 10/10/19 17 Telephone [facility] [address] [facility] [address] [place] [address] Angelina Zaldivar MD Samples 09/28/19 17 Refill [facility] [address] [place] [address] Omi Daly, DO Medication Refill 09/26/19 17 Refill [facility] [address] [place] [address] Patsy Padron MD Medication Refill 09/22/19 17 Refill [facility] [address] [place] [address] Omi Daly, DO Medication Refill 09/22/19 17 9:15 AM EDT Office Visit [facility] [address] [address] Jeffy Fuentes MD Essential hypertension (Primary Dx); Ischemic heart disease; S/P CABG x 3; Hyperlipidemia, unspecified hyperlipidemia type 09/20/19 17 11:45 AM EDT Clinical Support [facility] [address] [place] [address] Michelle Baig RMA Screening for colon cancer (Primary Dx) 09/08/19 17 Telephone [facility] [address] [facility] [address] [place] [address] Angelina Zaldivar MD Paperwork/forms (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 [address] [place] [address] Jeffy Fuentes MD Visit Follow Up 08/10/19 17 Refill [facility] [address] [employer] [address] [place] [address] Angelina Zaldivar MD Medication Refill 08/04/19 17 10:15 AM EDT Office Visit [facility] [address] [address] Jeffy Fuentes MD Essential hypertension (Primary Dx); Ischemic heart disease; Chest pain, unspecified type 08/03/19 17 Refill [facility] [address] [facility] [address] [place] [address] Angelina Zaldivar MD Medication Refill 08/03/19 17 3:00 PM EDT Office Visit [facility] [address] [facility] [address] [place] [address] Angelina Zaldivar MD Vitamin D deficiency (Primary Dx); Vitamin B12 deficiency; Hyperlipidemia associated with type 2 diabetes mellitus (HCC); Hypertension associated with diabetes (HCC); Type 2 diabetes mellitus with complication, without long-term current use of insulin (HCC) 08/02/19 17 2:38 PM EDT - 08/02/19 17 11:59 PM EDT Hospital Encounter G[facility] STRESS TEST [address] [place] [address] Jeffy Fuentes MD Chest discomfort; Essential hypertension; Ischemic heart disease; S/P CABG x 3 Discharge Disposition: Home or Self Care 08/02/19 17 2:00 PM EDT - 08/02/19 17 2:37 PM EDT Hospital Encounter [facility] NUC MED [address] [place] [address] Jeffy Fuentes MD Chest discomfort; Essential hypertension; Ischemic heart disease; S/P CABG x 3 Discharge Disposition: Home or Self Care 07/28/19 17 3:30 PM EDT - 07/28/19 17 11:59 PM EDT Hospital Encounter [facility] [address] [place] [address] Jeffy Fuentes MD Type 2 diabetes mellitus without complication, without long-term current use of insulin (HCC); Hyperlipidemia associated with type 2 diabetes mellitus (HCC) Discharge Disposition: Home or Self Care 07/28/19 17 2:25 PM EDT - 07/28/19 17 3:29 PM EDT Hospital Encounter [facility]ASCULAR LAB [address] [place] [address] Jeffy Fuentes MD Chest discomfort; Essential hypertension; Ischemic heart disease; S/P CABG x 3 Discharge Disposition: Home or Self Care 07/23/19 17 Refill [facility] [address] [place] [address] Omi Daly, DO Medication Refill 07/21/19 17 2:00 PM EDT [place] [facility] [facility] [address] [address] Jeffy Fuentes MD Encounter to establish care with new doctor (Primary Dx); Chest discomfort; Essential hypertension; Ischemic heart disease; S/P CABG x 3 07/08/19 17 Telephone [facility] [address] [facility] [address] [place] [phone] Angelina Zaldivar MD Samples (Bydureon) 07/07/19 17 Refill [facility] [address] [place] [address] Omi Daly, DO Medication Refill 07/04/19 17 Telephone [facility] [address] [facility] [address] [place] [phone] Angelina Zaldivar MD Reschedule 06/29/19 17 Refill [facility] [address] [place] [address] Omi Daly, DO Medication Refill 06/23/19 17 Refill [facility] 100 [place] [address] Omi Daly, DO Medication Refill 06/21/19 17 Telephone [facility] [address] [employer] [address] [place] [phone] Angelina Zaldivar MD Samples 06/21/19 17 Refill [facility] [address] [place] [address] Patsy Padron MD Medication Refill 06/19/19 17 Refill [facility] [address] [place] [address] MalikaOmi gasca, DO Medication Refill 06/18/19 17 9:00 AM EDT Office Visit [facility] [address] [place] [address] Vernon Salinas MD Dermatitis (Primary Dx) 05/26/19 17 Refill [facility] [address] [place] [address] MalikaOmi gasca, DO Medication Refill 05/25/19 17 Refill [facility] [address] [place] [address] MalikaOmi gasca, DO Medication Refill 05/24/19 17 Refill [facility] [address] [place] [address] MalikaOmi gasca, DO Medication Refill 05/19/19 17 Telephone [facility] [address] [place] [address] Omi Daly, DO Sore Throat 04/10/19 17 Telephone [facility] [address] [place] [address] Emiliana Lu, RMA Back Pain 04/04/19 17 Refill [facility] [address] [place] [address] Omi Daly, DO Medication Refill 04/04/19 17 8:30 AM EST Office Visit [facility] [address] [place] [address] Omi Daly, DO Back pain with left-sided radiculopathy (Primary Dx); Controlled type 2 diabetes mellitus without complication, without long-term current use of insulin ([facility]) 04/04/19 17 11:15 AM EST Office Visit [facility] 1500 [facility] [address] [place] [address] Angelina Zaldivar MD Type 2 diabetes mellitus without complication, without long-term current use of insulin (HCC) (Primary Dx); Hypertension associated with diabetes (HCC); Hyperlipidemia associated with type 2 diabetes mellitus (HCC); Vitamin D deficiency; Vitamin B12 deficiency 03/30/19 17 4:00 PM EST - 03/30/19 17 11:59 PM EST Hospital Encounter [facility] 238 [facility] [place] [address] Type 2 diabetes mellitus wit h complication (HCC) Discharge Disposition: Home or Self Care 03/24/19 17 Refill [facility] 100 [place] [address] Omi Daly, DO Medication Refill 03/24/19 17 Refill [facility] 100 [place] [address] Patsy Padron MD Medication Refill 03/23/19 17 Telephone [facility] [address] [facility] [address] [address] Angelina Zaldivar MD Samples 03/22/19 17 Refill [facility] [address] [place] [address] Omi Daly, DO Medication Refill 03/20/19 17 Telephone [facility] [address] [employer] [address] [place] [phone] Angelina Zaldivar MD Labs Only (Reminder ) 03/09/20 16 Refill [facility] 100 [place] [address] Omi Daly, Medication Refill 03/01/20 16 Telephone [facility] [address] [facility] [address] [place] [address] Angelina Zaldivar MD Samples 02/12/20 16 Refill [facility] 100 [place] [address] Omi Daly, DO Medication Refill 02/12/20 16 Refill [facility] 100 [place] [address] Omi Daly, DO Medication Refill 01/28/20 16 Telephone [facility] 1500 [facility] [address] [place] [phone] Angelina Zaldivar MD No Show; Reschedule 01/25/20 16 Telephone [facility] 1500 [facility] [address] [place] [phone] Angelina Zaldivar MD Samples 01/25/20 16 Telephone [facility] 1500 [facility] [address] [place] [phone] Angelina Zaldivar MD Labs Only (Lab Reminder ) 01/10/20 16 Refill [facility] 100 [place] [address] Omi Daly, DO Medication Refill 01/04/20 16 Refill [facility] 100 [place] [address] Omi Daly, DO Medication Refill 12/27/19 16 Telephone [facility] 1500 [facility] [address] [place] [phone] Angelina Zaldivar MD Samples (Bydureon.); Dysuria 12/08/19 16 Refill [facility] 100 [place] [address] Omi Daly, DO Medication Refill 12/05/19 16 Refill [facility] 100 [place] [address] Omi Daly, DO Medication Refill 12/04/19 16 Refill [facility] 100 [place] [address] Omi Daly, DO Medication Refill 11/30/19 16 Refill [facility] [address] [facility] [address] [place] [address] Angelina Zaldivar MD Medication Refill 11/30/19 16 Refill [facility] [address] [facility] [address] [place] [phone] Angelina Zaldivar MD Medication Refill 11/29/19 16 Telephone [facility] 1500 [facility] [address] [place] [phone] Angelina Zaldivar MD Samples 11/26/19 16 Telephone [facility] [address] [place] [address] Omi Daly DO Appointment Needed 11/18/19 16 Telephone [facility] [address] [address] Angelina Zaldivar MD Samples 10/12/19 16 7:55 AM EDT Office Visit [place] [address] [address] Angelina Zaldivar MD Type 2 diabetes mellitus with complication (HCC) (Primary Dx); Vitamin B12 deficiency; Hypertension associated with diabetes (HCC); Hyperlipidemia associated with type 2 diabetes mellitus (HCC) 10/11/19 16 4:50 PM EDT - 10/11/19 16 11:59 PM EDT Hospital Encounter [facility] 238 [facility] [place] [address] Type 2 diabetes mellitus without complication (HCC) Discharge Disposition: Home or Self Care 10/08/19 16 Refill [facility] [address] [place] [address] Patsy Padron MD Medication Refill 10/06/19 [address] [facility] [address] [place] [phone] Angelina Zaldivar MD Labs Only 09/23/19 16 10:15 AM EDT Office Visit [facility] 100 [place] [address] Omi Daly DO Dysuria (Primary Dx); Chronic fatigue; Insomnia, persistent 09/22/19 16 Telephone [facility] 100 [place] [address] Omi Daly, Other 09/18/19 16 11:40 AM EDT - 09/18/19 16 11:59 PM EDT Hospital Encounter [facility] 238 [facility] [place] [address] Other fatigue Discharge Disposition: Home or Self Care 09/18/19 16 11:15 AM EDT Office Visit [facility] 100 [place] [address] Daniela Garcia, ACTUARIAL INTERN Other fatigue (Primary Dx) 09/15/19 16 Telephone [facility] [address] [employer] [address] [place], [place] [phone] Angelina Zaldivar MD Samples 09/13/19 16 Refill [facility] [address] [employer] [address] [place] [phone] Angelina Zaldivar MD Medication Refill 08/24/19 16 Refill [facility] 100 [place] [address] Omi Daly DO Medication Refill 08/06/19 16 Refill [facility] [address] [place] [address] Patsy Padron MD Medication Refill 08/03/19 16 Refill [facility] [address] [employer] [address] [place] [phone] Angelina Zaldivar MD Medication Refill 08/02/19 16 Telephone [facility] [address] [address] Angelina Zaldivar MD Samples 07/26/19 16 Refill [facility] [address] [place] [address] Omi Daly, DO Medication Refill 07/09/19 16 Telephone [facility] [address] [address] Angelina Zaldivar MD Other (Cost of Bydureon) 07/09/19 16 Orders Only [address] [address] Sasha Ramos RN,CDE Type 2 diabetes mellitus with complication (HCC) (Primary Dx) 07/09/19 16 7:55 AM EDT Office Visit [address] [address] Angelina Zaldivar MD Type 2 diabetes mellitus without complication (HCC) (Primary Dx); Hypertension associated with diabetes (HCC); Hyperlipidemia associated with type 2 diabetes mellitus (HCC); Vitamin D deficiency 07/06/19 16 1:05 PM EDT - 07/06/19 16 11:59 PM EDT Hospital Encounter [facility] 238 [place] [address] Controlled type 2 diabetes mellitus without complication (HCC) Discharge Disposition: Home or Self Care 07/02/19 16 Telephone [facility] [address] [address] Angelina Zaldivar MD Labs Only (Lab Reminder) 06/26/19 16 Refill [facility] [address] [place] [address] Omi Daly, Medication Refill 06/16/19 16 Telephone [facility] [address] [place] [address] Omi Daly DO Medication Management 06/14/19 16 Telephone [facility] [address] [place] [address] Omi Daly DO Other 06/11/19 16 2:17 PM EDT - 06/11/19 16 11:59 PM EDT Hospital Encounter [facility] LAB ANTHONY PROCESSING [facility] [place] [address] Screening PSA (prostate specific antigen) Discharge Disposition: Home or Self Care 06/11/19 16 9:15 AM EDT Office Visit [facility] [address] [place] [address] Omi Daly DO Dysuria (Primary Dx); BPH with urinary obstruction; Screening PSA (prostate specific antigen) 05/24/19 16 Refill [facility] [address] [place] [address] Starla Nice MA Medication Refill 05/04/19 16 Refill [facility] [address] [place] [address] Patsy Padron MD Medication Refill 05/03/19 16 Telephone [facility] [address] [place] [address] Starla Nice MA Other 05/01/19 16 9:15 AM EST Office Visit [facility] [address] [place] [address] Omi Daly DO Dysuria (Primary Dx); Acute bacterial sinusitis; BPH with urinary obstruction; Encounter for screening colonoscopy 04/29/19 16 Refill [facility] [address] [place] [address] Omi Daly DO Medication Refill 04/20/19 16 Refill [facility] [address] [place] [address] Omi Daly DO Medication Refill 04/15/19 16 Refill [facility] [address] [place] [address] Malika, Omi, DO Medication Refill 04/14/19 16 Telephone [facility] [address] [facility] [address] [place] [address] Angelina Zaldivar MD Visit Follow Up 04/07/19 16 7:55 AM EST Office Visit [facility] [address] [facility] [address] [place] [phone] Angelina Zaldivar MD Controlled type 2 diabetes mellitus without complication (HCC) (Primary Dx); Hypertension associated with diabetes (HCC); Hyperlipidemia associated with type 2 diabetes mellitus (HCC); Vitamin B12 deficiency; Vitamin D deficiency 04/06/19 16 2:15 PM EST - 04/06/19 16 11:59 PM EST Hospital Encounter [facility] 238 [facility] [place], [place] [id number] Postoperative anemia due to acute blood loss (Primary Dx); Controlled type 2 diabetes mellitus without complication (HCC); Vitamin B12 deficiency; Vitamin D deficiency; S/P CABG x 3; Ischemic heart disease; Hyperlipidemia Discharge Disposition: Home or Self Care 03/29/19 16 Telephone [facility] [address] [facility] [address] [place] [phone] Angelina Zaldivar MD Reschedule 03/26/19 16 Telephone [facility] [address] [facility] [address] [place] [phone] Angelina Zaldivar MD Labs Only 03/18/19 16 Refill [facility] [address] [place] [address] Omi Daly, DO Medication Refill 03/08/20 15 Refill [facility] [address] [place] [address] Omi Daly, DO Medication Refill 02/23/20 15 Telephone [facility] [address] [facility] [address] [place] [phone] Angelina Zaldivar MD Medication Reaction (canagliflozin (INVOKANA) 300 mg Oral Tablet) 02/23/20 15 Refill [facility] [address] [place] [address] Edgar Dodson MD Medication Refill 02/20/20 15 Refill [facility] [address] [place] [address] Edgar Dodson MD Medication Refill 02/14/20 15 Refill [facility] [address] [place] [address] MalikaOmi gasca, DO Medication Refill 02/13/20 15 Patient Outreach [facility] [address] [place] [address] Elba Tapia RN Care Management - Chart Review 02/08/20 15 Refill [facility] [address] [place] [address] Omi Daly, DO Medication Refill 01/09/20 15 Refill [facility] [address] [place] [address] Edgar Dodson MD Medication Refill 01/08/20 15 Refill [facility] [address] [place] [address] Omi Daly, DO Medication Refill 01/06/20 15 Refill [facility] [address] [place] [address] Omi Daly, DO Medication Refill 12/26/19 15 7:40 AM EDT Office Visit [facility] [address] [facility] [address] [place] [address] Angelina Zaldivar MD Controlled type 2 diabetes mellitus without complication (HCC) (Primary Dx); Vitamin D deficiency; Vitamin B12 deficiency; Hypertension associated with diabetes (HCC); Hyperlipidemia associated with type 2 diabetes mellitus (HCC) 12/25/19 15 9:25 AM EDT - 12/25/19 15 11:59 PM EDT Hospital Encounter [facility] [address] [place] [address] Controlled type 2 diabetes mellitus without complication (HCC); Hyperlipidemia; Vitamin B12 deficiency; Vitamin D deficiency; Postoperative anemia due to acute blood loss; S/P CABG x 3; Ischemic heart disease; Essential hypertension Discharge Disposition: Home or Self Care 12/24/19 15 6:15 PM EDT Hospital Encounter [facility] [address] [place] [address] Left without seen 12/23/19 15 Telephone [facility] [address] [facility] [address] [place] [phone] Angelina Zaldivar MD Labs Only 12/10/19 15 Telephone [facility] [address] [place] [address] Edgar Dodson MD Visit Follow Up 12/10/19 15 Patient Outreach [facility] [address] [place] [address] Elba Tapia RN Care Transition (Follow up call.) 12/07/19 15 Refill [facility] [address] [place] [address] Edgar Dodson MD Medication Refill 12/04/19 15 3:15 PM EDT Office Visit [facility] [address] [place] [address] Edgar Dodson MD Controlled type 2 diabetes mellitus without complication (HCC) (Primary Dx); Essential hypertension; Gastroesophageal reflux disease without esophagitis 12/03/19 15 Refill [facility] [address] [place] [address] Omi Daly DO Medication Refill 11/14/19 15 Telephone [facility] [address] [place] [address] Edgar Dodson MD Other 09/24/19 15 Telephone [facility] [address] [facility] [address] [place] [address] Angelina Zaldivar MD Results 09/24/19 8:00 AM EDT - 09/24/19 11:59 PM EDT Hospital Encounter [facility] [address] [place] [address] Controlled type 2 diabetes mellitus without complication (HCC); Hypokalemia Discharge Disposition: Home or Self Care 09/24/19 7:40 AM EDT Office Visit [facility] [address] [address] Angelina Zaldivar MD Controlled type 2 diabetes mellitus without complication (HCC) (Primary Dx); Essential hypertension; Hyperlipidemia; Vitamin D deficiency; Vitamin B12 deficiency 09/23/19 11:35 AM EDT - 09/23/19 11:59 PM EDT Hospital Encounter [facility] [address] [place], [place] [address] Uncontrolled type 2 diabetes mellitus with microalbuminuria or microproteinuria (HCC); Vitamin B12 deficiency; Vitamin D deficiency; Postoperative anemia due to acute blood loss; S/P CABG x 3; CAD (coronary artery disease); Chest pain; Ischemic heart disease; Hyperlipidemia; GERD (gastroesophageal reflux disease); DM (diabetes mellitus), type 2, uncontrolled (HCC); HTN (hypertension) Discharge Disposition: Home or Self Care 09/21/19 15 Refill [facility] [address] [place] [address] Omi Daly, Medication Refill 09/19/19 15 Telephone [facility] [address] [address] Angelina Zaldivar MD Reschedule (LABS) 09/11/19 15 Telephone [facility] [address] [address] Angelina Zaldivar MD 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 [address] [place] [address] Angelina Zaldivar MD Other ([employer] Patient Assistance [employer]) 08/21/19 15 9:40 AM EDT Office Visit [facility] [address] [facility] [address] [place] [phone] Angelina Zaldivar MD Hyperlipidemia (Primary Dx); Uncontrolled type 2 diabetes mellitus with microalbuminuria or microproteinuria (HCC); Essential hypertension; Vitamin D deficiency; Vitamin B12 deficiency; Tinea pedis of right foot 08/18/19 15 Refill [facility] [address] [place] [address] Edgar Dodson MD Medication Refill 08/18/19 15 Refill [facility] [address] [place] [address] Omi Daly, DO Medication Refill 08/07/19 15 Refill [facility] [address] [place] [address] Edgar Dodson MD Medication Refill 08/05/19 15 Telephone [facility] [address] [place] [address] Edgar Dodson MD Referral 08/01/19 15 Telephone [facility] [address] [place] [address] Edgar Dodson MD Other 07/27/19 15 Refill [facility] [address] [place] [address] Omi Daly, DO Medication Refill 07/26/19 15 Telephone [facility] [address] [place] [address] Starla Nice MA [facility] 07/19/19 15 Refill [facility] [address] [place] [address] Omi Daly, DO Medication Refill 07/06/19 15 Refill [facility] [address] [place] [address] Omi Daly, DO Medication Refill 07/05/19 15 Refill [facility] [address] [place] [address] Edgar Dodson MD Medication Refill 06/23/19 15 Refill [facility] [address] [place] [address] Omi Daly, Medication Refill 06/17/19 15 Refill [facility] [address] [place] [address] Edgar Dodson MD Medication Refill 06/16/19 15 Refill [facility] [address] [place] [address] Edgar Dodson MD Medication Refill 06/12/19 15 Patient Outreach [facility] [address] [place] [address] Elba Tapia RN Care Transition (Follow up call.) 06/12/19 15 Refill [facility] [address] [place] [address] Omi Daly, DO Medication Refill 06/10/19 15 Telephone [facility] [address] [place] [place] [address] Edgar Dodson MD Medication Management 06/06/19 15 Refill [facility] [address] [place] [address] Edgar Dodson MD Medication Refill 06/01/19 15 Refill [facility] [address] [place] [address] Omi Daly, DO Medication Refill 05/30/19 15 Telephone [facility] [address] [place] [address] Edgar Dodson MD Medication Refill 05/21/19 15 Refill [facility] [address] [place] [address] Omi Daly, DO Medication Refill 05/09/19 15 Refill [facility] [address] [place] [address] Omi Daly, DO Medication Refill 05/04/19 15 Refill [facility] [address] [place] [address] Edgar Dodson MD Medication Refill 04/21/19 15 Orders Only [facility] [address] [place] [address] Carlee Rose CMA Vitamin D deficiency (Primary Dx) 04/18/19 15 2:15 PM EST - 04/18/19 15 11:59 PM EST Hospital Encounter EDG LAB ANTHONY PROCESSING [facility] [place] [address] HTN (hypertension); Hyperlipidemia; Routine general medical examination at a health care facility; Vitamin D deficiency Discharge Disposition: Home or Self Care 04/18/19 15 8:15 AM EST Office Visit [facility] [address] [place] [address] Edgar Dodson MD Routine general medical examination at a health care facility (Primary Dx); DM (diabetes mellitus), type 2, uncontrolled (HCC); HTN (hypertension); Hyperlipidemia; CAD (coronary artery disease); Vitamin D deficiency; Sinusitis 04/07/19 15 Telephone [facility] [address] [place] [address] Madeline Turk, JORGE Head Lice 04/06/19 15 Telephone [facility] [address] [place] [address] Starla Nice MA Head Lice 04/06/19 15 Refill [facility] [address] [place] [address] Edgar Dodson MD Medication Refill 04/06/19 15 Refill [facility] [address] [place] [address] Omi Daly, DO Medication Refill 03/28/19 15 Refill [facility] [address] [place] [address] Edgar Dodson MD Medication Refill 03/25/19 15 Telephone [facility] [address] [place] [address] Edgar Dodson MD Medication Management 03/23/19 15 Telephone [facility] [address] [place] [address] Edgar Dodson MD Other 03/18/19 15 Telephone [facility] [place] [address] Edgar Dodson MD Medication Management 03/14/19 15 Telephone [facility] [address] [place] [address] Edgar Dodson MD Medication Management 03/13/19 15 Telephone [facility] [address] [place] [address] Omi Daly, DO Medication Refill 03/11/20 14 Telephone [facility] [address] [place] [address] Omi Daly, DO Medication Refill 02/28/20 14 Refill [facility] [address] [place] [address] Edgar Dodson MD Medication Refill 02/18/20 14 Telephone [facility] Cristy Walker [address] [place] [address] Starla Nice MA Head Lice 02/03/20 14 Telephone [facility] [address] [place] [address] Omi Daly, Other 02/01/20 14 3:00 PM EST - 02/01/20 14 11:59 PM EST Hospital Encounter [facility]ON[facility] PROCESSING [facility] [place] [address] Hyperlipidemia Discharge Disposition: Home or Self Care 02/01/20 14 8:45 AM EST Office Visit [facility] [place] [address] Omi Daly DO DM (diabetes mellitus), type 2, uncontrolled (HCC) (Primary Dx); HTN (hypertension); Hyperlipidemia 01/27/20 14 Refill [facility] [place] [address] Edgar Dodson MD Medication Refill 01/20/20 14 Patient Outreach [facility] [place] [address] Elba Tapia RN Care Transition (Follow up call.) 01/06/20 14 Refill [facility] [address] [place] [address] Edgar Dodson MD Medication Refill 12/21/19 14 Refill [facility] [address] [place] [facility] [place] [address] Edgar Dodson MD Medication Refill 12/13/19 14 Refill [facility] [address] [place] [address] Edgar Dodson MD Medication Refill 11/22/19 14 Patient Outreach [place] [address] [place] [address] Elba Tapia RN Care Transition (Follow up call.) 10/29/19 14 8:40 PM EDT - 10/29/19 14 11:59 PM EDT Hospital Encounter [facility] ANTHONY PROCESSING [facility] [place] [address] DM (diabetes mellitus), type 2, uncontrolled (HCC) Discharge Disposition: Home or Self Care 10/29/19 14 1:15 PM EDT Clinical Support [facility] [address] [place] [address] Michelle Baig RMA DM (diabetes mellitus), type 2, uncontrolled (HCC) (Primary Dx) 10/25/19 14 Refill [facility] [address] [place] [address] Edgar Dodson MD Medication Refill 10/16/19 14 Patient Outreach [facility] [address] [place] [address] Elba Tapia RN Care Transition (Follow up call.) 10/16/19 14 Telephone [facility] [address] [place] [address] Edgar Dodson MD Medication Refill 10/15/19 14 Telephone [facility] [address] [place] [address] Edgar Dodson MD Medication Refill 10/07/19 14 1:30 PM EDT Office Visit [facility] [address] [place] [address] Omi Daly DO DM (diabetes mellitus), type 2, uncontrolled (HCC) (Primary Dx); GERD (gastroesophageal reflux disease) 09/26/19 14 Telephone [facility] [address] [place] [address] Starla Nice MA Other 09/26/19 14 12:20 PM EDT Office Visit [facility] [address] [place] [address] [address] [place] [address] Samuel Jo MD S/P CABG x 3 (Primary Dx) 09/23/19 14 Patient Outreach [facility] [address] [place] [address] Whitney Pack RN Care Transition (Hospital follow up call week 4) 09/20/19 14 Patient Outreach [facility] [address] [place] [address] Whitney Pack RN Care Transition (hospital follow up call week 3) 09/17/19 14 1:45 PM EDT Office Visit [facility] [address] [address] Jeffy Fuentes MD CAD (coronary artery disease) (Primary Dx); HTN (hypertension); S/P CABG x 3; Ischemic heart disease 09/13/19 14 Orders Only [facility] 100 [place] [address] Patsy Padron MD DM (diabetes mellitus), type 2, uncontrolled (HCC) (Primary Dx) 09/11/19 14 Telephone [facility] [address] [place], [place] [id number] Cathi Torres RN Care Transition (Follow up CABG) 09/09/19 14 Telephone [facility] [address] [place] [address] Kavitha Spence MA Other 09/08/19 14 Refill [facility] [address] [place] [address] Edgar Dodson MD Medication Refill 09/06/19 14 Telephone [facility] [address] [place] [address] Starla Nice MA Other 09/05/19 14 11:15 AM EDT Office Visit [facility] [address] [place] [address] Omi Daly DO Cellulitis (Primary Dx); DM (diabetes mellitus), type 2, uncontrolled (HCC) 09/04/19 14 Telephone [facility] [address] [place] [address] Edgar Dodson MD Other 09/04/19 14 Telephone [facility] [address] [place] [address] Carlee Rose CMA Blood Sugar Problem 09/03/19 14 Telephone [facility] [address] [place] [address] Cathi Torres RN Care Transition (Hospital f/u CABG) 09/02/19 14 3:00 PM EDT Office Visit [facility] 100 [place] [address] Omi Daly DO DM (diabetes mellitus), type 2, uncontrolled (HCC) (Primary Dx); S/P CABG x 3; CAD (coronary artery disease); HTN (hypertension) 08/24/19 14 12:34 PM EDT - 08/30/19 14 2:45 PM EDT Hospital Encounter [facility] [address] [place], [place] [id number] Tod Wolf MD Clements, Wilson Monroe, MD [...] 14 12:20 PM EDT Surgery [facility] PERIOP [facility] [place] [address] Samuel Jo MD CORONARY ARTERY BYPASS GRAFT 08/24/19 14 Refill [facility] [address] [place] [address] Patsy Padron MD Medication Refill 08/23/19 14 8:50 AM EDT - 08/24/19 14 11:39 AM EDT Hospital Encounter [facility] [address] [place] [address] Jeffy Fuentes MD Discharge Disposition: Short Term Hospital 08/23/19 14 11:00 AM EDT - 08/23/19 14 12:00 PM EDT Surgery Jeffy Fuentes MD CARDIAC PROCEDURE - JANETH/FTT-SALES LEADER ONLY 08/20/19 14 2:10 PM EDT - 08/20/19 14 11:59 PM EDT Hospital Encounter [facility] [address] [place] [address] HTN (hypertension) (Primary Dx); Chest pain; Ischemic heart disease; DM (diabetes mellitus) (HCC); Hyperlipidemia; GERD (gastroesophageal reflux disease) Discharge Disposition: Home or Self Care 08/20/19 14 1:45 PM EDT Office Visit [facility] [place] [address] [place] [address] Jeffy Fuentes MD HTN (hypertension) (Primary Dx); Chest pain; Ischemic heart disease 08/17/19 14 9:30 AM EDT Office Visit [facility] 100 [facility], [facility] Omi Daly DO Type II or unspecified type diabetes mellitus without mention of complication, uncontrolled (HCC) (Primary Dx); Chest pain, unspecified; Hyperlipidemia 07/24/19 14 Telephone [facility] 100 [facility], [facility] Carlee Rose, SKEIN WINDING OPERATOR Medication Refill 07/24/19 14 Refill [facility] [address] [place] [address] Carlee Rose, SKEIN WINDING OPERATOR Medication Refill 07/21/19 14 Refill [facility] [address] [place] [address] Omi Daly DO Medication Refill 07/11/19 14 Refill [facility] [address] [facility], [facility] Edgar Dodson MD Medication Refill 07/02/19 14 Refill [facility] [address] [place] [address] Edgar Dodson MD Medication Refill 06/24/19 14 Telephone [facility] [address] [place] [address] Carlee Rose, [facility] Medication Refill 04/08/19 14 Refill [facility] [address] [place] [address] Emiliana Lu, RMA Medication Refill 03/01/20 13 Refill [facility] [address] [place] [address] Edgar Dodson MD Medication Refill 02/08/20 13 Telephone [facility] [address] [place] [address] Edgar Dodson MD Medication Refill 02/08/20 13 Refill [facility] [address] [place] [address] Michelle Baig, RMA Medication Refill 01/11/20 13 Refill [facility] [address] [place] [address] Edgar Dodson MD Medication Refill 01/05/20 13 Telephone [facility] [address] [place] [address] Mitzi Porsha Ana Rosa, CCMA Medication Refill 01/05/20 13 Refill [facility] [address] [place] [address] Edgar Dodson MD Medication Refill 12/22/19 13 Telephone [facility] [address] [place] [address] Edgar Dodson MD Medication Refill 12/12/19 13 Refill [facility] [address] [place] [address] Patsy Padron MD Medication Refill 12/03/19 13 Telephone [facility] [address] [place] [address] Edgar Dodson MD Medication Refill 11/09/19 13 Telephone [facility] [address] [place] [address] Va SelfBROOKYoli Nephrolithiasis 11/01/19 13 Refill [facility] [address] [place] [address] Starla Nice MA Medication Refill 10/18/19 13 Telephone [facility] [address] [place] [address] Edgar Dodson MD Medication Refill 09/22/19 13 Refill [facility] [address] [place] [address] Patsy Padron MD Medication Refill 09/18/19 13 3:31 PM EDT - 09/18/19 13 11:59 PM EDT Hospital Encounter [facility] ANTHONY PROCESSING [facility] [place] [address] HTN (hypertension); Hyperlipidemia; DM (diabetes mellitus) (HCC) Discharge Disposition: Home or Self Care 09/18/19 13 8:45 AM EDT Office Visit [facility] [address] [place] [address] Edgar Dodson MD Routine general medical examination at a health care facility (Primary Dx); DM (diabetes mellitus) (HCC); HTN (hypertension); Hyperlipidemia; GERD (gastroesophageal reflux disease) 08/28/19 13 Refill [facility] [address] [place] [address] Edgar Dodson MD Medication Refill 07/14/19 13 Telephone [facility] [address] [place] [address] Edgar Dodson MD Medication Refill 06/14/19 13 Telephone [facility] [address] [place] [address] Patsy Padron MD Medication Refill 06/11/19 13 Orders Only [facility] [address] [place] [address] Edgar Dodson MD [place]es (Primary Dx) 06/06/19 13 10:00 AM EDT Office Visit [facility] [address] [place] [address] Edgar Dodson MD DM (diabetes mellitus) (HCC) (Primary Dx); HTN (hypertension); Hyperlipidemia; GERD (gastroesophageal reflux disease); Cellulitis 06/02/19 13 Refill [facility] [address] [place] [address] Starla Nice MA Medication Refill 05/21/19 13 Refill [facility] [address] [place] [address] Edgar Dodson MD Medication Refill 05/09/19 13 Refill [facility] [place] [address] Patsy Padron MD Medication Refill 04/12/19 13 Refill [facility] [address] [place] [address] Edgar Dodson MD Medication Refill 03/25/19 13 Telephone [facility] [place] [address] Starla Nice MA Medication Refill 02/13/20 12 Telephone [facility] [place] [address] Edgar Dodson MD Medication Refill 01/26/20 12 Telephone [facility] [address] [place] [address] Starla Nice MA Other 01/20/20 12 Refill [facility] [address] [place] [address] Edgar Dodson MD Medication Refill 12/29/19 12 Telephone [facility] [place] [address] [place] [address] Cindy Frey Referral (Diabetes Education) 12/29/19 12 Telephone [facility] [address] [place] [address] Va Self, RMA Nasal Congestion 12/28/19 12 Telephone [facility] [address] [place] [place] [address] Va Self, RMA Obesity 12/27/19 12 Telephone [facility] [place] [address] Porsha Cartagena Ana Rosa, CCMA Other 12/08/19 12 Refill [facility] [address] [place] [address] Omi Daly, Medication Refill 10/17/19 12 Refill [facility] [address] [place] [address] Edgar Dodson MD Medication Refill 10/07/19 12 4:03 PM EDT - 10/07/19 12 11:59 PM EDT Hospital Encounter [facility] ANTHONY PROCESSING [facility] [place] [address] HTN (hypertension); DM (diabetes mellitus) ([facility]); Hyperlipidemia Discharge Disposition: Home or Self Care 10/07/19 12 10:00 AM EDT Office Visit [facility] 100 [facility] [place] [address] Edgar Dodson MD DM (diabetes mellitus) ([facility]); HTN (hypertension); GERD (gastroesophageal reflux disease); Hyperlipidemia 10/06/19 12 Refill [facility] [address] [place] [address] Edgar Dodson MD Medication Refill 09/01/19 12 Refill [facility] 100 [facility] [place] [address] Omi Daly, Medication Refill 09/01/19 12 Refill [facility] [address] [facility] [place] [address] Edgar Dodson MD Medication Refill 08/07/19 12 Refill [facility] [address] [place] [address] Edgar Dodson MD Medication Refill 07/25/19 12 Refill [facility] [address] [place] [address] Edgar Dodson MD Medication Refill 07/04/19 12 Telephone [facility] [address] [place] [address] Cindy Frey Diabetes (dietary consult request) 06/25/19 12 Refill [facility] [address] [place] [address] Omi Daly DO Medication Refill 06/20/19 12 Telephone [facility] [address] [place] [address] Edgar Dodson MD Other 05/15/19 12 Telephone [facility] [address] [place] [address] Henry Carrillo MA Medication Refill (med) 05/15/19 12 Refill [facility] [address] [place] [address] Omi Daly, Medication Refill 05/13/19 12 Refill [facility] [address] [place] [address] Edgar Dodson MD Medication Refill 04/01/19 12 Telephone [facility] [address] [place] [address] Edgar Dodson MD Medication Refill 03/06/20 11 Refill [facility] [address] [place] [address] Omi Daly DO Medication Refill 03/06/20 11 Refill [facility] [address] [place] [address] Edgar Dodson MD Medication Refill 02/17/20 11 10:15 AM EST Office Visit [facility] [address] [place] [address] Edgar Dodson MD Flank pain; Frequent urination; Hematuria 02/04/20 11 2:00 PM EST Office Visit [facility] [address] [place] [address] Omi Daly DO DM (diabetes mellitus) (HCC) (Primary Dx) 12/11/19 11 10:30 AM EDT Office Visit [facility] [address] [place] [address] Patsy Padron MD Urinary frequency; Abdominal pain; Peripheral edema 12/04/19 11 Refill [facility] [address] [place] [address] Omi Daly DO Medication Refill 12/04/19 11 Refill [facility] [address] [place] [address] Edgar Dodson MD Medication Refill 10/30/19 11 Refill [facility] [address] [place] [address] Omi Daly DO Medication Refill 10/02/19 11 10:45 AM EDT Office Visit [facility] [address] [place] [address] Omi Daly DO Physical exam, annual (Primary Dx) 09/30/19 11 10:15 AM EDT Office Visit [facility] [address] [place] [address] Edgar Dodson MD Cellulitis (Primary Dx); DM (diabetes mellitus) (HCC); GERD (gastroesophageal reflux disease); HTN (hypertension) 09/28/19 11 Telephone [facility] [address] [place] [address] Edgar Dodson MD Medication Refill 08/16/19 11 Telephone [facility] [address] [place] [address] Porsha Cartagena, CCMA Results 08/14/19 11 2:45 PM EDT - 08/14/19 11 11:59 PM EDT Hospital Encounter [facility] ANTHONY PROCESSING [facility] [address] [place], [place] [address] DM (diabetes mellitus) ([facility]) Discharge Disposition: Home or Self Care 08/14/19 11 10:30 AM EDT Office Visit [facility] [address] [place], [place] [address] Edgar Dodson MD Frequent urination (Primary Dx); DM (diabetes mellitus) (HCC) 08/07/19 11 10:00 AM EDT Office Visit [facility] [address] [place] [address] Patsy Padron MD Bronchitis (Primary Dx) 06/28/19 11 Refill [facility] [address] [place] [address] Michelle Baig RMA Medication Refill 05/15/19 11 Refill [facility] [address] [place] [address] Edgar Dodson MD Medication Refill 04/23/19 11 Telephone [facility] [address] [place] [address] Mesha Nath CMA Medication Refill 04/20/19 11 1:15 PM EST Office Visit [facility] [address] [place] [address] Edgar Dodson MD Hyperlipidemia; GERD (gastroesophageal reflux disease); Back pain 04/05/19 11 Telephone [facility] [address] [place] [address] Starla Nice MA Dental Pain 03/31/19 11 Refill [facility] [address] [place] [address] Edgar Dodson MD Medication Refill 03/08/20 10 Telephone [facility] [address] [place] [address] Starla Nice MA Medication Refill 03/06/20 10 Refill [facility] [address] [place] [address] Edgar Dodson MD Medication Refill 03/03/20 10 Refill [facility] [address] [place] [address] Edgar Dodson MD Medication Refill 03/01/20 10 Telephone [facility] [address] [place] [address] Mesha Nath, [facility] Other 02/13/20 10 11:15 AM EST Office Visit [facility] [address] [place] [address] Omi Daly DO DM (diabetes mellitus) (HCC); HTN (hypertension) 02/11/20 10 Telephone [facility] [address] [place] [address] Mesha Nath, [facility] Other 12/17/19 10 Refill [facility] [address] [place] [address] Patricia Ennis RMA Medication Refill 11/17/19 10 Telephone [facility] [address] [place] [address] Starla Nice MA Other 11/17/19 10 Refill [facility] [address] [place] [address] Omi Daly DO Medication Refill 11/17/19 10 Refill [facility] [address] [place] [address] Edgar Dodson MD Medication Refill 11/10/19 10 Telephone [facility] [address] [place] [address] Va Self RMA Medication Management 11/06/19 10 Telephone [facility] [address] [place] [address] Edgar Dodson MD Nasal Congestion 02/08/20 09 [...] Encounter [facility] Edgar Dodson MD 08/12/19 07 5:12 PM [...] Encounter [facility] 06/24/18 96 8:12 PM EDT - [...] 11/01/19 24 2:31 PM EDT Active Insulin Josephine, Disposable, (SALENA PEN NEEDLE) 32 gauge x [...] Release 24 hrIndications:Cor onary artery disease involving makah heart without angina pectoris, unspecified vessel or [...] t be different from the original. A1C>9 [facility] - Carlos Langston MD Interventional Pain Protocol: Mata report completed (EVERY 3 MONTHS) (04/20/2022) Pharmacy: [facility] [address] [place] [id number] [address] [facility] [phone] Spine Center additional info (Transportation, WC, Compound, [...] Sister Social History Smoking Status as of 01/23/2025 Tobacco Use Types Packs/Day Years Used Date Smoking Tobacco: Never Assessed [facility] Utilities Answer Date Recorded In the past [...] Date Recorded PHQ-2 Total Score 0 01/01/2024 [facility] - Occupational Stress [...] things needed for daily living? No 07/24/2024 [facility] Transportation Answer D ate Recorded In [...] on file Medical Devices Implanted Type Area Business Broker Device Identifier Shelf Expiration Date Model / Serial / Lot Stent Coronary System 4.00 Mm X 18 Mm Xience [employer] - [id number] Implanted:Qty: 1 on 02/16/2022 by Sapphire Munguia MD at [facility] N/A: RPDA OBOKER LAB:VASC DEV [id number] 08/22/2023 [id number] Procedures Procedure Name Priority Date/Time Associated Diagnosis [...] EDT ADMIT Routine 10/31/2023 1:24 PM EDT SALES LEADER HEMODYNAMIC WAVE[employer]MS Routine 10/31/2023 1:11 PM EDT [...] (shortness of breath) ASHD (arteriosclerotic heart disease) SALES LEADER HEMODYNAMIC WAVEFORMS Routine 10/01/2023 8:48 AM EDT PT / INR Routine 09/29/2023 9:29 AM EDT Dyslipidemia associated with type 2 diabetes mellitus (HCC) Coronary artery disease involving makah heart without angina pectoris, unspecified vessel or lesion type BASIC METABOLIC PANEL Routine 09/29/2023 9:29 AM EDT Dyslipidemia associated with type 2 diabetes mellitus (HCC) Coronary artery disease involving makah heart without angina pectoris, unspecified vessel or lesion type CBC Routine 09/29/2023 9:29 AM EDT Dyslipidemia associated with type 2 diabetes mellitus (HCC) Coronary artery disease involving makah heart without angina pectoris, unspecified vessel or [...] 8:46 AM EDTThis note is in progress. [facility] Surgical Consultation Note Admit Date: 08/18/2022 LOS: 1 day Body mass index is 35.65 kg/m . IMPRESSION Active Hospital Problems Diagnosis *CHF (congestive heart failure), NYHA class I, acute on chronic,combined (HCC) Right groin mass Obstructive sleep apnea syndrome BPH with obstruction/lower urinary tract symptoms Uncontrolled type 2 diabetes mellitus with hyperglycemia ([facility]) S/P CABG x 3 Hyperlipidemia GERD (gastroesophageal [...] Allergy Arthritis Chronic cough DM (diabetes mellitus) ([facility]) 02/12/2010 GERD (gastroesophageal reflux disease) H/O heart surgery Heart attack ([facility]) Heart disease High cholesterol History of chicken pox History of measles, mumps, or rubella HTN (hypertension) 02/12/2010 pt states never had HTN Hyperlipidemia Kidney stones Low testosterone VA (myocardial infarction) ([facility]) Nocturia 05/09/2019 Prostate disorder Urinary incontinence PAST SURGICAL HISTORY Past Surgical History: Procedure Laterality Date ANGIOPLASTY 1990 CARDIAC SURGERY N/A 08/25/2013 CORONARY ARTERY BYPASS GRAFTS X 3 USING BILATERAL SAPHENOUS VEIN X 2 ANDLEFT INTERNAL MAMMARY ARTERY BYPASS GRAFT X 1; Surgeon: Richard Jo MD; Location: [facility]; Service: Open Heart CORONARY PERCUTANEOUS INTERVENTION(PCI) N/A 02/16/2022 Surgeon: Sapphire Munguia MD; Location: [facility] CARDIAC CATH LABIMAGING; Service: Cardiac IR [...] the prostate; Surgeon: Ina Overton MD; Location: [facility] MAIN OR; Service: Urology TONSILLECTOMY UPPER GASTROINTESTINAL ENDOSCOPY UPPER GASTROINTESTINAL ENDOSCOPY N/A 07/17/2018 ESOPHAGOGASTRODUODENOSCOPY with savary dilation and biopsy ; Surgeon: Stevie Acosta MD; Location: [facility] ENDOSCOPY; Service:Endoscopy UPPER GASTROINTESTINAL ENDOSCOPY N/A 09/20/2018 ESOPHAGOGASTRODUODENOSCOPY with biopsy; Surgeon: Stevie Acosta MD; Location: [facility] ENDOSCOPY; Service: Endoscopy SOCIAL HISTORY Social [...] the ordering clinician. EK EKG 12 LEAD [place] CoTest Date:2022-08-18 Pat Name: JACKIE FISHDARLING Department: DEPIDPatient ID: [id number] Room: Gender: MaleTechnician: Jose Manuel : [id number] By: JESSICA Brandon Order Number: [id number] MD: Sapphire MunguiaMeasurements Intervals [place] Rate:78 P: 44 MT: 169QRS: -8 QRSD: 165 T:75 QT: 405 QTc:464Interpretive Statements SINUS RHYTHM LEFT BUNDLE BRANCH BLOCKElectronically Signed On 08-18-2022 18:39:09 EDT by Sapphire [facility] IP CONSULT TO CARDIOLOGY Routine 08/18/2022 11:43 PM EDT Procedure Note - Altaf Yañez MD - 08/19/2022 8:21 AM EDTThis note is in progress. Heart & Vascular Consult Note PATIENT: Jackie Sprague : 1955 PCP: Carlos A Gross DO Primary Carbonizer Tester: Dr. [facility] Reason for consult: CHF History [...] Hereports he had an angiogram done in [place] due to chest pain withreport of no [...] lesion is 80% stenosed. - Severe occluded makah LAD/LCX and RCA - Patent KELLY to [...] most recent cardiovascular imaging studies availabe in [facility] EMR werereviewed at time of [...] D-Dimer No results found for: DDIMER Hs-Troponin ge-oAilasapu-F 2HR Date Value Ref Range Status 08/18/2022 52 (H) <22 ng/L Final Comment: See the website below for rule out VA care pathway, conditions otherthan AMI that can cause elevated hs cTnT, and comparison of values fromthe 4th and 5th generation Marisabel tests.[email or web address] ASSESSMENT: Active Hospital Problems Diagnosis *CHF (congestive heart failure), NYHA class I, acute on chronic,combined (HCC) Right groin mass Obstructive sleep apnea syndrome BPH with obstruction/lower urinary tract symptoms Uncontrolled type 2 diabetes mellitus with hyperglycemia ([facility]) S/P CABG x 3 Hyperlipidemia GERD (gastroesophageal reflux disease) Acute on Chronic Heart Failure -ECHO (08/19/2021) LVEF 45-50%. G1DD. Abnormal wall motion. Trace MR andTR -BNP 3373 -CXR left base subsegmental atelectasis. Mild central vascularcongestion -ECHO pending -COMPUTER TECHNICAL SPECIALIST lasix 20 mg BID, coreg 6.25 mg BID, lisinopril 5 mg -Current diuresis with lasix 40 mg BID -Strict I/Os, daily (standing) weights, fluid and sodium restriction,daily BMPs Right Groin Mass / ?Cellulitis of Right Groin -Reportedly occurred after LHC in [place] - (08/14/2022) no evidence of pseudoaneurysm. Enlarge lymph node -CT (08/18/2022) 6 cm diameter soft tissue mass suspicious for neoplasia -Noted Leukocytosis -Surgery consulted - no plans for intervention Coronary Artery Disease -s/p CABG CABG 2013 KELLY to LAD, SVG to RPDA and SVG to OM -[facility] (02/16/2022) severe occluded makah LAD/LCx and RCA. Patent KELLY toLAD. Patent SVG to OM. Severe proximal SVG to RPDA stenosis s/p PCI withDES -Reports recently [facility] in [place] with no intervention (unable to viewrecords) -COMPUTER TECHNICAL SPECIALIST bASA, plavix 75 mg, coreg 6.25 mg BID, imdur 60 mg, crestor 20 mg -Plavix and bASA on hold for possible intervention - would recommendresuming with REYNOLD ~6 months Diabetes -A1c 7.5 Hyperlipidemia -COMPUTER TECHNICAL SPECIALIST statin -Lipid panel pending Hypertension -Coreg 6.25 [...] We will follow with you. Mirtha Gonzalez, ACTUARIAL INTERN 08/19/2022 Consulting Physician Altaf Yañez MD Reason for Cardiology consult CHF, Rt grain mass Chief Complaint: No chief complaint on file. HPI 66 y.o. male Seen in consultation History obtained in conjunction with [employer] as follows... Jackie Sprague is a 66 [...] Hereports he had an angiogram done in [place] due to chest pain withreport of no [...] lesion is 80% stenosed. - Severe occluded makah LAD/LCX and RCA - Patent KELLY to [...] had HTN Hyperlipidemia Kidney stones Low testosterone VA (myocardial infarction) ([facility]) Nocturia 05/09/2019 Prostate disorder Urinary incontinence Current [...] the prostate; Surgeon: Ina Overton MD; Location: [facility]IN OR; Service: Urology TONSILLECTOMY UPPER GASTROINTESTINAL ENDOSCOPY UPPER GASTROINTESTINAL ENDOSCOPY N/A 07/17/2018 ESOPHAGOGASTRODUODENOSCOPY with savary dilation and biopsy ; Surgeon: Stevie Acosta MD; Location: [facility] ENDOSCOPY; Service:Endoscopy UPPER GASTROINTESTINAL ENDOSCOPY N/A 09/20/2018 ESOPHAGOGASTRODUODENOSCOPY with biopsy; Surgeon: Stevie Acosta MD; Location: [facility] ENDOSCOPY; Service: Endoscopy Allergies Allergen Reactions [...] EKG [address] 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 I have reviewed all pertinent history, laboratory and radiology studies. I have taken a history and performed a physical examination of thispatient. I agree with the history, physical, assessment and plan as outlined byARNP. Altaf Yañez MD [facility] ADMIT Routine 08/18/2022 10:27 PM EDT ADMIT [...] 12:28 PM EDT Coronary artery disease involving makah heart without angina pectoris, unspecified vessel or [...] PM EST Acute pain of left knee MT ARTHROCENTESIS ASPIR&/INJ MAJOR JT/BURSA W/O US Routine [...] 10:16 AM EST Atherosclerotic heart disease of makah coronary artery with other forms of angina pectoris Fluid retention in legs Angina of effort POCT EKG Routine 03/07/2022 9:44 AM EST Coronary artery disease involving makah heart without angina pectoris, unspecified vessel or [...] LR POC Routine 02/16/2022 2:37 PM EST SALES LEADER HEMODYNAMIC WAVEFORMS Routine 02/16/2022 2:14 PM EST [...] 2 diabetes mellitus without complication, unspecified whether intermission coordinator insulin use (HCC) WOUND CULTURE (STAIN INCLUDED) [...] 9:52 AM EDT Coronary artery disease involving makah heart without angina pectoris, unspecified vessel or lesion type S/P CABG x 3 POCT EKG Routine 06/23/2020 10:41 AM EDT Ischemic heart disease Coronary artery disease involving makah heart without angina pectoris, unspecified vessel or [...] Routine 01/13/2020 1:00 PM EST Parotid mass NON-FOUNTAIN PEN NIBS INSPECTOR CYTOLOGY REQUEST Routine 01/13/2020 11:52 AM EST [...] risk factor modifications -Atorvastatin 10 mg daily (fci LDL goal 50-70). -Please Keep fci blood pressure goal less than 140/90 (a [...] Allergy Arthritis Chronic cough DM (diabetes mellitus) ([facility]) 02/12/2010 GERD (gastroesophageal reflux disease) H/O heart surgery Heart attack ([facility]) Heart disease High cholesterol History of chicken pox History of measles, mumps, or rubella HTN (hypertension) 02/12/2010 pt states never had HTN Hyperlipidemia Kidney stones Low testosterone VA (myocardial infarction) ([facility]) Nocturia 05/09/2019 Prostate disorder Urinary incontinence Patient [...] (BMI) of 35.0 to 35.9 in adult ([facility]) 11/19/2018 Eosinophilic esophagitis Elevated lipoprotein(a) 08/01/2018 Followed by Endocrinology. Esophageal dysphagia Chronic pain syndrome 11/06/2017 Spondylosis of lumbar region without myelopathy or txykypbyeaccv94/28/2018 Sacroiliitis ([facility]) 11/06/2017 Degenerative disc disease, lumbar 10/15/2017 Dysuria Benign prostatic hyperplasia with urinary frequency Acute prostatitis Yeast dermatitis of penis Acute pyelonephritis 09/20/2017 Elevated troponin 09/20/2017 SOB (shortness of breath) 09/20/2017 Uncontrolled type 2 diabetes mellitus with hyperglycemia ([facility])09/23/2014 Dyslipidemia associated with type 2 diabetes mellitus ([facility]) 08/20/2014 Followed by Endocrinology. Vitamin D deficiency [...] the prostate; Surgeon: Ina Overton MD; Location: [facility]; Service: Urology TONSILLECTOMY UPPER GASTROINTESTINAL ENDOSCOPY UPPER GASTROINTESTINAL ENDOSCOPY N/A 07/17/2018 ESOPHAGOGASTRODUODENOSCOPY with savary dilation and biopsy ; Surgeon: Stevie Acosta MD; Location: [facility]OSCOPY; Service:Endoscopy UPPER GASTROINTESTINAL ENDOSCOPY N/A 09/20/2018 [...] Each 11 Blood-Glucose Meter (FREESTYLE LITE METER) [facility] Kit USE DIRECTED 1Kit 0 Blood-Glucose Meter [...] 28 gauge Misc Misc 1 Each by [facility]Non-Drug;Combo Route) route 3 times daily. 100 Each [...] EKG [address] 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1955 Requested By: AUGUSTINA TITUS Order Number: [id number] Reading MD: Shelley Lockwood MD Measurements Intervals [place] Rate: 70 P: 54 MT: 184 QRS: -8 QRSD: 147 T: 116 [...] Ischemic heart disease Coronary artery disease involving makah heart without angina pectoris, unspecified vessel or lesion type S/P CABG x 3 Dizziness POCT EKG Routine 02/20/2019 10:25 AM EST Ischemic heart disease Coronary artery disease involving makah heart without angina pectoris, unspecified vessel or [...] 2 diabetes mellitus without complication, unspecified whether fci insulin use (HCC) POCT GLYCATED HEMOGLOBIN, TOTAL Routine 10/14/2018 5:03 PM EDT Uncontrolled type 2 diabetes mellitus with hyperglycemia (HCC) Type 2 diabetes mellitus without complication, unspecified whether fci insulin use (HCC) POCT MICROALBUMIN Routine 10/14/2018 [...] 2 diabetes mellitus without complication, unspecified whether intermission coordinator insulin use (HCC) PROSTATE SPECIFIC ANTIGEN (TUMOR [...] Jackie Abdi PCP: Omi Daly DO Primary Carbonizer Tester: Jeffy Fuentes M.D. 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 Concerned about hospitalization with no insurance PMH: CAD, s/p CABG 2012, HTN, HLD, DM2 EKG: Sinus tach with short MT, artifact from rigors Trop: <0.01, 0.09, 0.08 [...] Medical History: Diagnosis Date DM (diabetes mellitus) ([facility]) 02/12/2010 GERD (gastroesophageal reflux disease) HTN (hypertension) 02/12/2010 pt states never had HTN Hyperlipidemia VA (myocardial infarction) ([facility]) Medication aspirin 81 mg Oral Daily cefTRIAXone [...] most recent cardiovascular imaging studies availabe in [facility] EMR werereviewed at time of [...] CABG 2013 -on ASA, imdur, BB, MISAEL COMPUTER TECHNICAL SPECIALIST Plan: Trop elevation not consistent with ACS No ischemic changes on EKG Continue to monitor Continue cardiac meds Will defer any ischemic workup to MD Please also refer to orders on chart Further input from Dr. Hernandez Thank you for the consult. We will follow with you. Trang Villanueva, ACTUARIAL INTERN 09/20/2017 Addendum: I personally interviewed and examined [...] EST Routine general medical examination at a [facility] care facility LIPID SCREEN Routine 04/18/2014 8:54 [...] EDTThis note is in progress. See dictated [id number] SCANNED RHYTHM STRIPS 08/27/2013 9:46 AM EDT [...] 6:45 AM EDT XR CHEST AP PORTABLE ALEXANRDA 08/26/2013 6:25 AM EDT EK EKG 12 [...] 08/25/2013 8:08 AM EDT Coronary atherosclerosis of makah coronary artery Special Needs Pt will be transferred from [place] on 08/23 gurinder GLUCOSE METER POC Routine [...] 08/22/2013 4:55 PM EDT CARDIAC PROCEDURE - JANETH/FTT-SALES LEADER ONLY 08/22/2013 11:26 AM EDT Chest pain, unspecified Special Needs GUILLE CPT;51503 SALES LEADER PROCEDURE LOG Routine 4 12:00 AM EDT [...] EDT Routine general medical examination at a [facility] care facility LIPID SCREEN Routine 09/17/2012 9:48 [...] 10/19/2009 12:[address] ABD/PELVIS CASCADE OPERATOR Routine 02/07/2009 12:59 AM EST GC XX ABDOMEN Routine 02/07/2009 12:53 AM EST XX SOFT TISSUE OF THE NECK Routine 08/25/2007 8:10 PM EDT Results * BILIRUBIN DIRECT (07/18/2024 11:32 AM EDT) Only the most recent of2 resultswithin the time period is included. Bili Direct <0.2 0.0 - 0.3 mg/dL 07/18/2024 7:37 PM EDT [facility] [employer] Blood VENOUS BLOOD / Unknown Venipuncture / Unknown 07/18/2024 11:32 AM EDT 07/18/2024 11:32 AM EDT us Abel Hernandez MD CHEMISTRY ORDERABLES Final Resul t [facility], [place] [address] [facility] [address] , [place] [address] * PROTEIN/CREATININE RATIO URINE (07/18/2024 11:32 AM EDT) Only the most recent of3 resultswithin the time period is included. Urine Protein <6.0 mg/dL 07/18/2024 3:57 PM EDT [facility], [place] Urine Creatinine 57.9 mg/dL 07/18/2024 3:57 PM EDT [facility], [facility] Ur Protein/Creat <0.10 mg/mg 07/18/2024 3:57 PM EDT [facility] Urine STRUCTURE OF URINARY TRACT PROPER / Unknown 07/18/2024 11:32 AM EDT 07/18/2024 11:32 AM EDT Abel Hernandez MD URINE ORDERABLES Final Result Performing Organization Address [facility] [[email or web address]] de Phone Number [facility], [address] , [address] [place] [phone] [facility] [address] [place] [address] * VITAMIN D 25 HYDROXY (07/18/2024 11:32 AM EDT) Only the most recent of18 resultswithin the time period is included. Vit D 25 OH 64.0 30.0 - 150.0 ng/mL 07/18/2024 8:01 PM EDT [facility] [employer], [facility] Comment: Preferred: >= 30 ng/mL Insufficient: 21-29 [...] ORDERABLES Final Resul t Performing Organization Address [facility] Co de Phone Number [facility] [employer], [address] , [address] [place], [place] [id number] * MICROALBUMIN/CREATININE RATIO URINE (07/18/2024 11:32 AM EDT) Only the most recent of10 resultswithin the time period is included. Urine Albumin <12.0 mg/L 07/18/2024 3:57 PM EDT [facility] [employer], [facility] Urine Creatinine 57.9 mg/dL 07/19/19 3:57 PM EDT [facility] [employer], [facility] Ur Albumin/Creat Ratio 07/18/2024 3:57 PM EDT [...] URINE ORDERABLES Final Result [facility], [facility] [address] [facility] , [address] [place] [phone] * (ABNORMAL) URINALYSIS (07/18/2024 11:32 AM EDT) [...] 1.035 no units 07/18/2024 1:49 PM EDT [facility] [employer] [facility] Comment:Reference range sofia d for random specimens only. Urine STRUCTURE OF URINARY TRACT PROPER / Unknown 07/18/2024 11:32 AM EDT 07/18/2024 11:32 AM EDT us Abel Hernandez MD URINE ORDERABLES Final Result Performing Organization Address [facility] Co de Phone Number [facility] [address] [address] , [place] [address] * ALANINE AMINOTRANSFERASE (07/18/2024 11:32 AM EDT) Only the most recent of2 resultswithin the time period is included. ALT 19 <=41 U/L 07/18/2024 7:3 7 PM EDT [facility] [employer] [facility] Blood VENOUS BLOOD / Unknown Venipuncture / Unknown 07/18/2024 11:32 AM EDT 07/18/2024 11:32 AM EDT us Abel Hernandez MD CHEMISTRY ORDERABLES Final Resul t Performing Organization Address [facility] [[email or web address]] de Phone Number [facility] [employer] [facility] [address] [facility] [address] , [place] [address] * ASPARTATE AMINOTRANSFERASE (07/18/2024 11:32 AM EDT) Only the most recent of2 resultswithin the time period is included. AST 14 <=40 U/L 07/18/2024 7:3 7 PM EDT [facility] [employer] [facility] Blood VENOUS BLOOD / Unknown Venipuncture / Unknown 07/18/2024 11:32 AM EDT 07/18/2024 11:32 AM EDT us Abel Hernandez MD CHEMISTRY ORDERABLES Final Resul t Performing Organization Address [facility] Co de Phone Number [facility] [employer] [facility] [address] [facility] [address] , [address] [place] [phone] * (ABNORMAL) PROTEIN TOTAL-BLOOD (07/18/2024 11:32 AM EDT) Only the most recent of2 resultswithin the time period is included. Total Protein 6.2(L) 6.4 - 8.3 gm/dL 07/18/2024 7:37 PM EDT [facility] Blood VENOUS BLOOD / Unknown Venipuncture / Unknown 07/18/2024 11:32 AM EDT 07/18/2024 11:32 AM EDT us Abel Hernandez MD CHEMISTRY ORDERABLES Final Resul t Performing Organization Address City/[facility]/ZIP Co de Phone Number [facility] [address] [place] [address] , [place] [phone] * ALKALINE PHOSPHATASE (07/18/2024 11:32 AM EDT) Only the most recent of2 resultswithin the time period is included. Pathologist [facility] Alk Phos 83 40 - 129 U/L 07/18/2024 7:37 PM EDT [facility] [employer] Blood VENOUS BLOOD / Unknown Venipuncture / Unknown 07/18/2024 11:32 AM EDT 07/18/2024 11:32 AM EDT us Abel Hernandez MD CHEMISTRY ORDERABLES Final Resul t Performing Organization Address City/[facility]/ZIP Co de Phone Number [facility] [address] [place] [address] , [address] [place] [phone] * PARATHYROID HORMONE INTACT (07/18/2024 11:32 AM EDT) Only the most recent of4 resultswithin the time period is included. PTH Intact 62.50 15.00 - 65.00 pg/mL 07/18/2024 3:45 PM EDT [facility] Blood VENOUS BLOOD / Unknown Venipuncture / Unknown 07/18/2024 11:32 AM EDT 07/18/2024 11:32 AM EDT Narrative [facility] - 07/18/2024 3:45 PM EDT Intact PTH [...] ORDERABLES Final Resul t Performing Organization Address City/[facility] Co de Phone Number [facility] [employer] [address] , [place] [address] * BILIRUBIN TOTAL (07/18/2024 11:32 AM EDT) Only the most recent of2 resultswithin the time period is included. [facility] Bili Total 0.2 0.2 - 1.4 mg/dL 07/18/2024 7:37 PM EDT [employer] [facility] Blood VENOUS BLOOD / Unknown Venipuncture / Unknown 07/18/2024 11:32 AM EDT 07/18/2024 11:32 AM EDT us Abel Hernandez MD CHEMISTRY ORDERABLES Final Resul t Performing Organization Address [facility] Co de Phone Number [facility] [employer] [address] , [place] [address] * (ABNORMAL) RENAL FUNCTION PANEL (07/18/2024 11:32 AM EDT) Only the most recent of2 resultswithin the time period is included. [facility] Sodium 137 136 - 145 mmol/L [...] 07/18/2024 7:37 PM EDT [facility], [facility] eGFR (CKD-EPIcr 2020) 56(L) >=60 mL/min/1.7 3 m2 07/18/2024 7:37 PM EDT [facility] Comment:Estimated GFR was ca lculated using the CKD-EPIcr (2020) equation refit without race. The equation is recommended by the National Kidney Foundation - [place] [employer] Neph[employer] Task Force. Blood VENOUS BLOOD / Unknown Venipuncture / Unknown 07/18/2024 11:32 AM EDT 07/18/2024 11:32 AM EDT us Abel Hernandez MD CHEMISTRY ORDERABLES Final Resul t [facility] [address] [facility] [address] , [place] [address] * XR CHEST PA AND LATERAL (02/13/2024 [...] X-RAY, 02/13/2024 2:26 PM CLINICAL HISTORY: R60.0-Localized kdiee-NWO-79-CM I50.43-Acute on chronic combined systolic (congestive) and [...] X-RAY, 02/13/2024 2:26 PM CLINICAL HISTORY: R60.0-Localized oiqid-SRN-59-CM I50.43-Acute on chronic combined systolic (congestive) and [...] 02/11/2024 7:29 PM EST [facility] Potassium 4.5 3.5 - 5.0 mmol/L 02/11/2024 7:29 PM EST [facility] Chloride 100 98 - 107 mmol/L 02/11/2024 7:29 PM EST [facility] Total CO2 24 22 - 29 mmol/L 02/11/2024 7:29 PM EST [facility] Anion Gap 18(H) 7 - 16 mmol/L 02/11/2024 7:29 PM EST [facility] Calcium 9.7 8.8 - 10.4 mg/dL 02/11/2024 7:29 PM EST [facility] Glucose Lvl 341(H) 70 - 99 mg/dL 02/11/2024 7:29 PM EST [facility] BUN 23 8 - 23 mg/dL 02/11/2024 7:29 PM EST [facility] Creatinine 1.59(H) 0.67 - 1.30 mg/dL 02/11/2024 7:29 PM EST [facility] eGFR (CKD-EPIcr 2020) 46(L) >=60 mL/min/1.7 3 m2 02/11/2024 7:29 PM EST [facility] Comment:Estimated GFR was ca lculated using the CKD-EPIcr (2020) equation refit without race. The equation is recommended by the National Kidney Foundation - [place] [employer] of Nephrology Task Force. Blood VENOUS BLOOD / Unknown Venipuncture / Unknown 02/11/2024 8:32 AM EST 02/11/2024 8:32 AM EST us Viral Gross V, DO CHEMISTRY ORDERABLES Final Res ult [facility] [address] [facility] [address] , [address] [place] [phone] [facility] [address] [place] [id number] * (ABNORMAL) GLUCOSE METER POC (01/03/2024 7:51 AM EDT) Only the most recent of140 resultswithin the time period is included. Pathologist [facility] Glucose Meter POC 179(H) 70 - 100 mg/dL 01/03/2024 7:53 AM EDT [facility] Sample Type Capillary 01/03/2024 7:53 AM EDT [facility] Patient Status Non-Critical Patient 01/03/2024 7:53 AM EDT [facility] Blood BLOOD SPECIMEN / Unknown 01/03/2024 7:51 AM EDT 01/03/2024 7:53 AM EDT Momo Castellanos MD POINT OF CARE TEST ORDERABLES Fi nal Result Performing Organization Address [facility]/ZIP Co de Phone Number [facility] [address] [place] [phone] * ECG AND WAVEFORMS - TELEMETRY (01/03/2024 7:18 AM EDT) Only the most recent of37 resultswithin the time period is included. [facility] ECG INTERPRET First Degree Sinus Rhythm [facility] 01/03/2024 7:18 AM EDT Narrative [facility] - 01/03/2024 7:21 AM EDT SR;IVCD-ROUTINE/PB MT 0.23 QRS 0.15 RR 0.79 QT 0.42 QTc 0.47 See Clinical Report link for waveform capture us Unknown Provider POINT OF CARE CARDIOLOGY Final Result Performing Organization Address City/[facility]/ZIP Co de Phone Number [facility] [address] [place] [address] * CBC (01/03/2024 6:05 AM EDT) Only the most recent of15 resultswithin the time period is included. Pathologist [facility] WBC 4.9 3.7 - 10.3 x10(3)/mcL 01/03/2024 6:36 AM EDT [facility] RBC 4.99 4.60 - 6.10 x10(6)/mcL 01/03/2024 6:36 AM EDT [facility] Hgb 14.0 13.7 - 17.5 g/dL 01/03/2024 6:36 AM EDT [facility] Hct 43.0 40.0 - 51.0 % 01/03/2024 6:36 AM EDT [facility] MCV 86.2 80.0 - 100.0 fL 01/03/2024 6:36 AM EDT [facility] MCH 28.1 26.0 - 34.0 pg 01/03/2024 6:36 AM EDT [facility] MCHC 32.6 30.7 - 35.5 g/dL 01/03/2024 6:36 AM EDT [facility] RDW 13.2 <=14.9 % 01/03/2024 6:36 AM EDT [facility] Platelet 210 155 - 369 x10(3)/mcL 01/03/2024 6:36 AM EDT [facility] MPV 11.5 8.8 - 12.5 fL 01/03/2024 6:36 AM EDT [facility] Blood VENOUS BLOOD / Unknown Venipuncture / Unknown 01/03/2024 6:05 AM EDT 01/03/2024 6:29 AM EDT us Familia Broderick MD (Ronny) [facility] Final Result Performing Organization Address City/State/[facility] Co de Phone Number [address] [address] * SCANNED EKG (01/02/2024 8:36 AM EDT) Only the most recent of4 resultswithin the time period is included. Anatomical Region Laterality Modality Other 01/02/2024 8:36 AM EDT us Unknown Provider IMG ECG ORDERABLES Final Result * (ABNORMAL) TROPONIN-T HIGH SENSITIVITY 2HR (12/31/2023 2:49 PM EDT) Only the most recent of4 resultswithin the time period is included. wl-dXmhlebdz-A 2HR 49(H) <22 ng/L 12/31/2023 3:10 PM EDT [facility] Comment:See the website kelly Flipkart for rule out VA care pathway, conditions other than AMI that can cause elevated hs cTnT, and comparison of values from the 4th and 5th generation Marisabel tests. https://askmayoexpert.[facility].org/topic/clinical-answers/[email or web address]/cpm-203 37162 hs-cTnT 2Hr Delta from Baseline 2 <4 ng/L 12/31/2023 3:10 PM EDT [facility] Blood VENOUS BLOOD / Unknown Venipuncture / Unknown 12/31/2023 2:49 PM EDT 12/31/2023 2:51 PM EDT Narrative [facility] - 12/31/2023 3:10 PM EDT Ingestion of joaquin doses of biotin (>5 mg/day) taken within 8 hours of drawing blood sample can interfere with this immunoassay test. us Sixto Jose MD CHEMISTRY ORDERABLES Amie mcgee Result [facility] [address] [place] [address] * XR CHEST AP PORTABLE [...] of4 resultswithin the time period is included. gm-gXifektsf-R 47(H) <22 ng/L 12/31/2023 1:25 PM EDT [facility] Comment:See the website Smart Plate for rule out VA care pathway, conditions other than AMI that can cause elevated hs cTnT, and comparison of values from the 4th and 5th generation Marisabel tests. https://askmayoexpert.[facility].org/topic/clinical-answers/gnt-48126478/cpm-203 88197 Blood VENOUS BLOOD / Unknown Venipuncture / Unknown 12/31/2023 12:55 PM EDT 12/31/2023 12:59 PM EDT Narrative [facility] - 12/31/2023 1:25 PM EDT Ingestion of joaquin doses of biotin (>5 mg/day) taken within 8 hours of drawing blood sample can interfere with this immunoassay test. us Sixto Jose MD CHEMISTRY ORDERABLES Amie l Result Performing Organization Address [facility] [[email or web address]] de Phone Number [facility] [address] [place] [address] * (ABNORMAL) NT PROBNP (12/31/2023 12:55 PM EDT) Only the most recent of2 resultswithin the time period is included. NT Pro-BNP 2,162(H) <=229 pg/mL 12/31/2023 1:35 PM EDT [facility] Blood VENOUS BLOOD / Unknown Venipuncture / Unknown 12/31/2023 12:55 PM EDT 12/31/2023 12:59 PM EDT Narrative [facility] - 12/31/2023 1:35 PM EDT [...] ORDERABLES Amie l Result Performing Organization Address [facility] [[email or web address]] de Phone Number [facility] [address] [place] [address] * EK EKG 12 LEAD (12/31/2023 12:24 PM EDT) Only the most recent of11 resultswithin the time period is included. 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 Avg Glucose 229 mg/dL 12/12/2023 7:30 PM EDT [facility] Blood VENOUS BLOOD / Unknown Venipuncture / Unknown 12/12/2023 2:26 PM EDT 12/12/2023 2:26 PM EDT Narrative [facility] - 12/12/2023 7:30 PM EDT REFERENCE RANGE: Normal: 4.0-5.6% Pre-diabetes: 5.7-6.4% Provisional diagnosis of diabetes: >6.4% Hgb F>10% and anything which shortens red cell survival, such as hemolytic anemia, or unstable hemoglobin variants such as HbSS, HbSC, or HbCC, will lower the HbA1c value associated with a given level of glycemic control. 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, hafecesjprs-IIM-33-CM COMPARISON: MRI April 29, 2021 PROCEDURE COMMENTS: [...] 11/28/2023 2:06 PM CLINICAL HISTORY: R20.0-Anesthesia of xdgs-MUR-12-CM R20.2-Paresthesia of vuxo-PVW-41-CM R20.0-Anesthesia of knco-UYD-97-CM R20.2-Paresthesia of keae-RYY-31-CM 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, kzuasiyztli-CGC-48-CM COMPARISON: MRI April 29, 2021 PROCEDURE COMMENTS: [...] mg/dL 11/01/2023 7:38 AM EDT [facility] Comment: < 200 Desirable 200 - 239 Borderline High >= 240 High Triglyceride 213(H) <150 mg/dL 11/01/2023 7:38 AM EDT [facility] Comment: < 150 Normal 150 - 199 Borderline High 200 - 499 High >= 500 Very High HDL 28(L) >=40 mg/dL 11/01/2023 7:38 AM EDT [facility] Comment: > 60 Optimal 40 - 60 Acceptable < 40 Low LDL Calculated 56 <100 mg/dL 11/01/2023 7:38 AM EDT [facility] Comment: < 100 Optimal 100 - 129 Near or above optimal 130 - 159 Borderline High 160 - 189 High >= 190 Very High Non-HDL-C Calculated 91 <=129 mg/dL 11/01/2023 7:38 AM EDT [facility] Comment: <130 Desirable 130-159 Above Desirable 160-189 Borderline High 190-219 High >= 220 Very High Fasting Specimen? Yes None 024 7:38 AM EDT [facility] Blood VENOUS BLOOD / Unknown Venipuncture / Unknown 11/01/2023 6:59 AM EDT 11/01/2023 7:03 AM EDT Sapphire Munguia MD CHEMISTRY ORDERABLES Final Result [facility] [employer], [facility] [address] [facility] , [place] [address] [facility] [address] [place] [id number] * EC ECHOCARDIOGRAM LIMITED (10/31/2023 4:51 PM [...] no pericardial effusion. us Sapphire Munguia MD [facility] ECHO ORDERABLES Final Result * EC ECHOCARDIOGRAM [...] fraction of 25-30%. us Sapphire Munguia MD [facility] ECHO ORDERABLES Final Result * CORONARY ANGIOGRAM (COR/LHC/LV GRAM, CARDIAC CATHETERIZATION), ULTRASOUND GUIDED VASCULAR ACCESS (10/31/2023 3:00 PM EDT) Only the most recent of3 resultswithin the time period is included. Narrative [facility] - 11/06/2023 11:00 AM EDT Procedure Details Procedure: Attempted PCI to LM.LCx CARPENTER HELPER Cardiac cath The patient was brought to the cardiac cath laboratory suite and was prepped and draped in the usual sterile fashion. Conscious sedation was achieved with IV versed and fentanyl. 10 ml of 2% lidocaine was used to provide local anesthesia over the prepared site. Using US guidance a 7 Fr sheath inserted in rt SOFTWARE TEST SPECIALIST A 6 FR sheath inserted in rt [...] long segment occlusion Using antegrade wire escalation Pigment Mixer 150 then changed to Mongo and gaya [...] A/p Unsuccessful PCI to long segment LM/LCX CARPENTER HELPER Continue to optimize med rx Can reattempt PCI to CARPENTER HELPER depending on clinical progress Sapphire Munguia MD CARDIAC CATH ORDERABLES Fi nal Result Performing Organization Address [facility] Co de Phone Number [employer] C[facility] * (ABNORMAL) ACTIVATED CLOTTING TIME LR POC (10/31/2023 2:45 PM EDT) Only the most recent of7 resultswithin the time period is included. ACT-LR 214(H) 89 - 169 second(s) 10/31/2023 2:51 PM EDT [facility] Blood BLOOD SPECIMEN / Unknown 10/31/2023 2:45 PM EDT 10/31/2023 2:51 PM EDT Sapphire Munguia MD POINT OF CARE TEST ORDERAB LES Final Result Performing Organization Address [facility] Co de Phone Number [facility] [address] [place] [address] * SALES LEADER HEMODYNAMIC WAVEFORMS (10/31/2023 1:11 PM EDT) Only the most recent of3 resultswithin the time period is included. 10/31/2023 1:11 PM EDT us Sapphire Munguia MD CARDIAC CATH ORDERABLES Fi nal Result Performing Organization Address [facility] Co de Phone Number [facility] [address] [place] [address] * PT / INR (10/30/2023 8:50 AM EDT) Only the most recent of6 resultswithin the time period is included. PT 10.9 10.5 - 13.6 second(s) 10/30/2023 2:07 PM EDT [facility] INR 0.92 0.89 - 1.16 (ratio) 10/30/2023 2:07 PM EDT [facility] Comment: Level of Therapy Indications Target INR Range Standard Dose Treatment and prophylaxis of venous 2.0 - 3.0 thrombosis, pulmonary embolism High Dose High risk patients with mechanical 2.5 - 3.5 heart valves Blood VENOUS BLOOD / Unknown Venipuncture / Unknown 10/30/2023 8:50 AM EDT 10/30/2023 8:50 AM EDT us Kelin Tran ACTUARIAL INTERN HEMATOLOGY ORDERABLES Final Res ult [facility] [employer], [facility] [address] [facility] , [place] [address] * (ABNORMAL) CBC WITH DIFF (10/30/2023 8:50 [...] 10/30/2023 2:13 PM EDT [facility] Platelet 198 155 - 369 x10(3)/mcL 10/30/2023 2:13 PM EDT [facility] MPV 12.6(H) 8.8 - 12.5 fL 10/30/2023 2:13 PM EDT [facility] Neut Percent 64.1 % 10/30/2023 2:13 PM EDT [facility] Comment:Neutrophils equals s egs plus bands Imm Gran% 0.6 % 10/30/2023 2:13 PM EDT [facility] Comment:Automated count of m etamyelocytes, myelocytes and promyelocytes. Lymph Percent 21.8 % 10/30/2023 2:13 PM EDT [facility] Sully Percent 8.1 % 10/30/2023 2:13 PM EDT [facility] Eos Percent 5.0 % 10/30/2023 2:13 PM EDT [facility] Baso Percent 0.4 % 10/30/2023 2:13 PM EDT [facility] Neut # 3.3 1.6 - 6.1 x10(3)/mcL 10/30/2023 2:13 PM EDT [facility] Comment:Neutrophils equals s egs plus bands IMMGRAN# 0.0 0.0 - 0.1 x10(3)/mcL 10/30/2023 2:13 PM EDT [facility] Comment:Automated count of m etamyelocytes, myelocytes and promyelocytes. An absolute IG <0.1 is reported as 0.0. Lymph # 1.1(L) 1.2 - 3.9 x10(3)/mcL 10/30/2023 2:13 PM EDT [facility] Sully # 0.4 0.3 - 0.9 x10(3)/mcL 10/30/2023 2:13 PM EDT [facility] Eos# 0.3 0.0 - 0.5 x10(3)/mcL 10/30/2023 2:13 PM EDT [facility] Baso # 0.0 0.0 - 0.1 x10(3)/mcL 10/30/2023 2:13 PM EDT [facility] Blood VENOUS BLOOD / Unknown Venipuncture / Unknown 10/30/2023 8:50 AM EDT 10/30/2023 8:50 AM EDT us Kelin Tran ACTUARIAL INTERN HEMATOLOGY ORDERABLES Final Res ult [facility] [address] [facility] [facility] , [place] [address] * XR LUMBAR SPINE AP LATERAL FLEXION AND EXTENSION (09/18/2023 10:24 AM EDT) Narrative Pia Boyd - 09/18/2023 10:26 AM EDT Please see physician's note from office encounter for x-ray imaging result us Paula RAMIJO IMG DIAGNOSTIC IMAGING ORDERABL ES Final Result [...] CLINICAL HISTORY: Thyroid nodule(s). 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 COMPARISON: 10/04/2022 PROCEDURE COMMENTS: Sonographic evaluation of [...] CLINICAL HISTORY: Thyroid nodule(s). 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 COMPARISON: 10/04/2022 PROCEDURE COMMENTS: Sonographic evaluation of [...] 4.5 mg/dL 08/30/2023 8:01 PM EDT [facility] Blood VENOUS BLOOD / Unknown Venipuncture / Unknown 08/30/2023 1:59 PM EDT 08/30/2023 2:00 PM EDT Abel Hernandez MD CHEMISTRY ORDERABLES Final Resul t [facility] [address] [facility] , [place] [address] * (ABNORMAL) COMPREHENSIVE METABOLIC PANEL (08/30/2023 1:59 PM EDT) Only the most recent of23 resultswithin the time period is included. Sodium 140 136 - 145 mmol/L 08/30/2023 8:01 PM EDT [facility] Potassium 4.0 3.5 - 5.0 mmol/L 08/30/2023 8:01 PM EDT [facility] Chloride 106 98 - 107 mmol/L 08/30/2023 8:01 PM EDT [facility] Total CO2 21(L) 22 - 29 mmol/L 08/30/2023 8:01 PM EDT [facility] Anion Gap 13 7 - 16 mmol/L 08/30/2023 8:01 PM EDT [facility], [facility] Calcium 9.8 8.8 - 10.4 mg/dL 08/30/2023 8:01 PM EDT [facility] Glucose Lvl 218(H) 70 - 99 mg/dL 08/30/2023 8:01 PM EDT [facility] BUN 19 8 - 23 mg/dL 08/30/2023 8:01 PM EDT [facility] Creatinine 1.26 0.67 - 1.30 mg/dL 08/30/2023 8:01 PM EDT [facility] Albumin 4.1 3.2 - 4.6 gm/dL 08/30/2023 8:01 PM EDT [facility] Total Protein 6.3(L) 6.4 - 8.3 gm/dL 08/30/2023 8:01 PM EDT [facility] Bili Total 0.2 0.2 - 1.4 mg/dL 08/30/2023 8:01 PM EDT [facility] ALT 17 <=41 U/L 08/30/2023 8:01 PM EDT [facility] AST 19 <=40 U/L 08/30/2023 8:01 PM EDT [facility] Alk Phos 100 40 - 129 U/L 08/30/2023 8:01 PM EDT [facility] eGFR (CKD-EPIcr 2020) 62 >=60 mL/min/1.7 3 m2 08/30/2023 8:01 PM EDT [facility] Comment:Estimated GFR was ca lculated using the CKD-EPIcr (2020) equation refit without race. The equation is recommended by the National Kidney Foundation - [place] [employer] of Nephrology Task Force. Blood VENOUS BLOOD / Unknown Venipuncture / Unknown 08/30/2023 1:59 PM EDT 08/30/2023 2:00 PM EDT us Oswaldo Harry MD CHEMISTRY ORDERABLES Fin al Result [employer], [facility] [address], [place] [address] [facility] [address] [place], [place] [phone] * DIABETIC EYE EXAM (08/15/2023) Right Diabetic Retinopathy Present Present/Not Present [facility] Comment:chronic mild non pro liferative retinopathy Left Diabetic Retinopathy Present Present/Not Present [facility] Comment:chronic mild non pro liferative retinopathy us Merle Kline OD OUTPATIENT REFERRAL ORDERABLE S Final Result Performing Organization Address [facility] Co de Phone Number SE[facility] OFF[facility] * (ABNORMAL) DIABETES EYE EXAM (08/15/2023) Left Diabetic Retinopathy Present Present/Not Present [facility] Comment:[place] eye Right Diabetic Retinopathy Present Present/Not Present [facility] 08/15/2023 us Historical Provider HEALTH MAINTENANCE Final Res ult Performing Organization Address [facility] Co de Phone Number SEP OFFICE [...] PM EDT Impressions 06/27/2023 3:11 PM EDT [facility] Test Date: 2023-06-27 Pat Name: [facility] Department: DEPID Room: Gender: Male 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 Barth RN : 1955 Requested By: SAPPHIRE MUNGUIA Order Number: [id number] Radha MD: Jimbo Mcdaniel Interpretive Statements Stress [...] Note Jimbo Mcdaniel MD - 06/27/2023 IMPRESSION [facility] Test Date: 2023-06-27 Pat Name: [facility] Department: DEPID Room: Gender: Male 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 MAKAYLA Santoro, et al. [employer]. 2017;166(5):361-363 ADILIA Denny, et al. [employer]. 2015;(163):701-711. Obdulio M, et al. CALIXTO. 2014;(11):7809-8705. us Piedad Jimenez MD HEMATOLOGY ORDERABLES Final Result [facility] [address] [place] [id number] * US RENAL AND BLADDER (06/06/2023 4:53 [...] evaluation of the kidneys and bladder with personal financial representative images and african studies professor notes sent to PACS for radiologist review. [...] sonographic evaluation of the kidneys andbladder with personal financial representative images and african studies professor notes sent to PACS forradiologist review. FINDINGS: [...] contactthe office of the ordering clinician. Abel Hernandez MD [facility] ORDERABLES Final Result * POCT URINALYSIS DIPSTICK (06/04/2023 4:06 PM EDT) Only the most recent of15 resultswithin the time period is included. Color, UA yellow CLEAR,YELL OW,ORANGE, RUST [facility] Clarity, UA clear CLEAR,CLOU DY [facility] Glucose, UA neg G/DL% [facility] Bilirubin, UA neg POS/NEG [facility] Ketones, UA neg POS/NEG [facility] sales and operations trainee Grav, UA 1.005 1.001 - 1.035 G/DL [facility] Blood, UA neg POS/NEG [facility] pH, UA 5.0 5.0 - 8 [facility] Protein, UA neg POS/NEG [facility] Urobilinogen, UA neg 0.2 - 1.0 MG/DL [facility] Nitrite, UA neg POS/NEG [facility] Leukocytes, UA neg POS/NEG [facility] UA Appear POC [facility] Lot Number [facility] Expiration Date [facility] SeriAl # [facility] Urine 06/04/2023 4:06 PM EDT us Abel Hernandez MD POINT OF CARE TEST ORDERABLES Fi nal Result [facility] * LIPASE LEVEL (05/13/2023 10:49 AM EST) Lipase Lvl 51 13 - 60 U/L 05/13/2023 1:17 PM EST [facility] Blood VENOUS BLOOD / Unknown Venipuncture / Unknown 05/13/2023 10:49 AM EST 05/13/2023 10:49 AM EST us Viral Gross V, DO CHEMISTRY ORDERABLES Final Res ult Performing Organization Address City/[facility]/ZIP Co de Phone Number [facility] [address] [facility], [place] [address] * HEPATIC FUNCTION PANEL (05/13/2023 10:49 AM [...] ORDERABLES Final Res ult Performing Organization Address [facility] [[email or web address]] de Phone Number [facility] [address] [place] [address] , [place] [address] * THYROID STIMULATING HORMONE (02/19/2023 8:59 AM EST) Only the most recent of12 resultswithin the time period is included. TSH 1.270 0.270 - 4.200 mcIU/mL 02/19/2023 4:47 PM EST [facility] Blood VENOUS BLOOD / Unknown Venipuncture / Unknown 02/19/2023 8:59 AM EST 02/19/2023 8:59 AM EST Narrative [facility] - 02/19/2023 4:47 PM EST Ingestion of joaquin doses of biotin (>5 mg/day) taken within 8 hours of drawing blood sample can interfere with this immunoassay test. Viral Gross V, DO CHEMISTRY ORDERABLES Final Res ult Performing Organization Address [facility] de Phone Number [facility] [address] [place] [address] , [place] [address] * OCT, RETINA - OU - BOTH EYES (10/03/2022 3:40 PM EDT) Narrative [facility] - 10/03/2022 3:40 PM EDT Patient is here for follow up imaging. Notes OD,OS Signal Strength 9/10, 10/10 Average Thickness 243, 250 macular cysts - improved from last visit Merle Kline OD OPHTHALMOLOGY SERVICES ORDERA BLES Final Result Performing Organization Address [facility] Co de Phone Number [facility] * T4, FREE (THYROXINE) (10/03/2022 1:57 PM EDT) Only the most recent of5 resultswithin the time period is included. Free T4 1.38 0.80 - 1.80 ng/dL 10/03/2022 8:59 PM EDT [facility] Blood VENOUS BLOOD / Unknown Venipuncture / Unknown 10/03/2022 1:57 PM EDT 10/03/2022 1:57 PM EDT Narrative [facility] - 10/03/2022 8:59 PM EDT Ingestion of joaquin doses of biotin (>5 mg/day) taken within 8 hours of drawing blood sample can interfere with this immunoassay test. us Viral Gross V, DO CHEMISTRY ORDERABLES Final Res ult [facility] [address] [facility] , [place] [address] * (ABNORMAL) POCT GLYCATED HEMOGLOBIN, TOTAL (09/28/2022 12:34 PM EDT) Only the most recent of6 resultswithin the time period is included. Hemoglobin A1C 10(A) 4 - 6 % [facility] Lot Number [facility] Expiration Date [facility] SeriAl # [facility] 09/28/2022 12:3 4 PM EDT us Edith Arehart ACTUARIAL INTERN POINT OF CARE TEST ORDERABLES Final Result Performing Organization Address [facility] [[email or web address]] de Phone Number SEP OFFICE * POCT [...] 12:3 3 PM EDT us Edith Arehart ACTUARIAL INTERN POINT OF CARE TEST ORDERABLES Final Result Performing Organization Address City/[facility]/ZIP Co de Phone Number SEP OFFICE * POCT VERONA STREP A+ (09/28/2022 12:33 PM EDT) STREP A+ ANTIGEN Negative Negative [facility] Lot Number SEP OFFICE Expiration Date SEP OFFICE SeriAl # SEP OFFICE Control Line Yes YES/NO [facility] OFF[facility] 09/28/2022 12:3 3 PM EDT Edith Oropeza ACTUARIAL INTERN POINT OF CARE TEST ORDERABLES Final Result [...] EDT 09/28/2022 12:21 PM EDT Edith Oropeza ACTUARIAL INTERN POINT OF CARE TEST ORDERABLES Final Result Performing Organization Address City/[facility] Co de Phone Number [facility] [address] [place] [address] * (ABNORMAL) LIPID PANEL REFLEX (09/23/2022 11:56 AM EDT) Only the most recent of14 resultswithin the time period is included. Cholesterol 149 <200 mg/dL 09/23/2022 8:48 PM EDT [facility] Comment: < 200 Desirable 200 - 239 Borderline High >= 240 High Triglyceride 268(H) <150 mg/dL 09/23/2022 8:48 PM EDT [facility] Comment: < 150 Normal 150 - 199 Borderline High 200 - 499 High >= 500 Very High HDL 29(L) >=40 mg/dL 09/23/2022 8:48 PM EDT [facility] Comment: > 60 Optimal 40 - 60 Acceptable < 40 Low LDL Calculated 76 <100 mg/dL 09/23/2022 8:48 PM EDT [facility] Non-HDL-C Calculated 120 <=129 mg/dL 09/23/2022 8:48 PM EDT [facility] Comment: <130 Desirable 130-159 Above Desirable 160-189 Borderline High 190-219 High >= 220 Very High Fasting Specimen? Yes None 023 8:48 PM EDT [facility] Blood VENOUS BLOOD / Unknown Venipuncture / Unknown 09/23/2022 11:56 AM EDT 09/23/2022 11:57 AM EDT us Sapphire Munguia MD CHEMISTRY ORDERABLES Final Result Performing Organization Address [facility]/ZIP Co de Phone Number [facility] [employer] , [place] [address] [facility] [address] [place], [place] [id number] * VITAMIN B12/ FOLIC ACID (09/23/2022 11:56 AM EDT) Only the most recent of2 resultswithin the time period is included. Pathologist [facility] Vitamin B12 431 232 - 1,245 pg/mL 09/23/2022 9:24 PM EDT [facility] Folate >16.00 >=4.50 ng/mL 09/23/2022 9:24 PM EDT [facility] Blood VENOUS BLOOD / Unknown Venipuncture / Unknown 09/23/2022 11:56 AM EDT 09/23/2022 11:57 AM EDT Narrative [facility] - 09/23/2022 9:24 PM EDT Ingestion of joaquin doses of biotin (>5 mg/day) taken within 8 hours of drawing blood sample can interfere with this immunoassay test. us Viral Gross V, DO CHEMISTRY ORDERABLES Final Res ult Performing Organization Address City/[facility] Co de Phone Number [facility] [employer] , [address] [place] [id number] * MAGNESIUM LEVEL (09/23/2022 11:56 AM EDT) [...] ult [facility] [address] [facility] , [place] [address] * (ABNORMAL) WOUND CULTURE (STAIN INCLUDED) (08/21/2022 4:23 PM EDT) Only the most recent of2 resultswithin the time period is included. Pathologist [facility] Culture Positive Growth(A) 2022 7:37 AM EDT [...] cocci(A) 08/26/2022 7:37 AM EDT [facility] Drainage ABDOMINAL WALL / Unknown 08/21/2022 [...] us Deepak Garza MD MICROBIOLOGY - GENERAL [facility] Final Result [facility] [address] [place] [address] , [place] [address] * DE US EVALUATE PSEUDOANEURYSM RIGHT (08/21/2022 9:09 AM [...] W CONTRAST (08/19/2022 3:33 PM EDT) Pathologist [facility] LV DIASTOLIC PLAX 5.38 cm PYRAMIS Ejection [...] ult * PROCALCITONIN (08/19/2022 5:11 AM EDT) [facility] Procalcitonin 0.09 <=0.49 ng/mL 08/19/2022 6:02 AM EDT [facility] Blood VENOUS BLOOD / Unknown Venipuncture / Unknown 08/19/2022 5:11 AM EDT 08/19/2022 5:29 AM EDT Narrative [facility] - 08/19/2022 6:02 AM [...] Rodriguez DO CHEMISTRY ORDERABLES Final Re sult [facility] [address] [place], [place] [id number] * CT PELVIS W CONTRAST (08/18/2022 6:06 [...] is a low-density right parotid gland mass slbafzlol86 mm in the deep lobe of the [...] <=4.00 ng/mL 05/27/2022 2:59 PM EDT [facility] Blood VENOUS BLOOD / Unknown Venipuncture / Unknown 05/27/2022 9:07 AM EDT 05/27/2022 9:07 AM EDT Narrative [facility] - 05/27/2022 2:59 PM EDT [facility] [...] Rey DO CHEMISTRY ORDERABLES Final Res ult [facility] [address] [facility] , [place] [address] * XR KNEE RIGHT AP LATERAL AND SUNRISE STANDING (05/19/2022 8:20 AM EST) Narrative Pia Boyd - 05/19/2022 8:20 AM EST Please see physician's note from office encounter for x-ray imaging result us Frederic Rosina ACTUARIAL INTERN IMG DIAGNOSTIC IMAGING ORDERAB LES Final Result * XR KNEE LEFT AP LATERAL AND SUNRISE STANDING (04/28/2022 1:10 PM EST) Narrative Pia Boyd - 04/28/2022 1:10 PM EST Please see physician's note from office encounter for x-ray imaging result Frederic Almaguer APRN IMG DIAGNOSTIC IMAGING ORDERAB LES Final Result * MT ARTHROCENTESIS ASPIR&/INJ MAJOR JT/BURSA W/O US (04/28/2022 1:00 PM EST) Narrative [facility] - 04/28/2022 1:00 PM EST [...] APRN PROCEDURE/MINOR SURGICAL ORDER SIOBHAN Final Result [facility] [address] [place] [id number] * XR KNEE LEFT AP LAT INT [...] of the ordering clinician. us Tameka Carolina ACTUARIAL INTERN IMG DIAGNOSTIC IMAGING ORDERA BLES Final Result [...] Fluoroscop y Narrative 01/12/2022 3:36 PM EDT [facility] PROCEDURE NOTE Jackie Abdi January 12, [...] home. Carlos Langston MD Interventional Pain Management [facility] Date: 01/12/2022 us Carlie Connolly ACTUARIAL INTERN IMG IR ORDERABLES Final Resu lt * COMPLIANCE PANEL, URINE (01/03/2022 10:15 AM EDT) Pathologist [facility] Medications Expected Tramadol 12/11 7:00 PM EDT [facility] Barbiturates Absent Cutoff 200 ng/mL 01/05/2022 7:00 PM EDT [facility] THC <10 Cutoff 10 ng/mL ng/mL 01/05/2022 7:00 PM EDT [facility] Comment:6-btvsvyu-crngttdhys cannabinol; does not distinguish between prescribed and [...] 01/05/2022 7:00 PM EDT [facility] Comment:Metabolite of Fluraz epam Lorazepam <50 Cutoff 50 ng/mL ng/mL 01/05/2022 7:00 PM EDT [facility] Comment:e.g., Ativan Lorazepam Glucuronide <50 Cutoff 50 ng/mL ng/mL 01/05/2022 7:00 PM EDT [facility] Comment:Metabolite of Loraze eduar Midazolam <50 Cutoff 50 ng/mL ng/mL 01/05/2022 7:00 PM EDT [facility] Comment:e.g., Versed alpha-hydroxymidazolam <50 Cutoff 50 ng/mL ng/mL 01/05/2022 7:00 PM EDT [facility] Comment:Metabolite of Versed Oxazepam <50 Cutoff 50 ng/mL ng/mL 01/05/2022 7:00 PM EDT [facility] Comment:e.g., Serax; also Me tabolite of Temazepam, and Nordiazepam Oxazepam Glucuronide <50 Cutoff 50 ng/mL ng/mL 01/05/2022 7:00 PM EDT [facility] Comment:Metabolite of Oxazep am Temazepam <50 Cutoff 50 ng/mL ng/mL 01/05/2022 7:00 PM EDT [facility] Comment:e.g., Restoril; also Metabolite of Diazepam Temazepam Glucuronide <50 Cutoff 50 ng/mL ng/mL 01/05/2022 7:00 PM EDT [facility] Comment:Metabolite of Temaze eduar and Diazepam Triazolam <50 Cutoff 50 ng/mL ng/mL 01/05/2022 7:00 PM EDT [facility] Comment:e.g., Halcion alpha-hydroxytriazolam <50 Cutoff 50 ng/mL ng/mL 01/05/2022 7:00 PM EDT [facility] Comment:Metabolite of Triazo belle Buprenorphine <5 Cutoff 5 ng/mL ng/mL 01/05/2022 7:00 PM EDT [facility] Comment:e.g., Suboxone, Subu alena,Sublocade, Buprenex Buprenorphine Glucuronide <10 Cutoff 10 ng/mL ng/mL 01/05/2022 7:00 PM EDT [facility] Comment:Buprenorphine Metabo lite Norbuprenorphine <5 Cutoff 5 ng/mL ng/mL 01/05/2022 7:00 PM EDT [facility] Comment:Buprenorphine Metabo lite Norbuprenorphine Glucuronide <10 Cutoff 10 ng/mL ng/mL 01/05/2022 7:00 PM EDT [facility] Comment:Buprenorphine Metabo lite Benzoylecgonine <50 Cutoff 50 ng/mL ng/mL 01/05/2022 7:00 PM EDT [facility] Comment:Cocaine Metabolite Fentanyl <1 Cutoff 1 ng/mL ng/mL 01/05/2022 7:00 PM EDT [facility] Comment:e.g.,Duragesic, Oral et, Actiq, Sublimaze, Innovar, Lazanda Norfentanyl <1 Cutoff 1 ng/mL ng/mL 01/05/2022 7:00 PM EDT [facility] Comment:Metabolite of Fentan yl 6-Monoacetylmorphine (6MAM) <10 Cutoff 10 ng/mL ng/mL 01/05/2022 7:00 PM EDT [facility] Comment:Metabolite of Heroin ; Morphine is expected Methadone <50 Cutoff 50 ng/mL ng/mL 01/05/2022 7:00 PM EDT [facility] Comment:e.g., Dolophine, Met hadose, Amidone EDDP <50 Cutoff 50 ng/mL ng/mL 01/05/2022 7:00 PM EDT [facility] Comment:Methadone Metabolite Carisoprodol <100 Cutoff 100 ng/mL ng/mL 01/05/2022 7:00 PM EDT [facility] Comment:e.g., Soma Meprobamate <100 Cutoff 100 ng/mL ng/mL 01/05/2022 7:00 PM EDT [facility] Comment:e.g., Adamant, Equa nil, Micrainin, Equagesic; Metabolite of Carisoprodol Codeine <50 Cutoff 50 ng/mL ng/mL 01/05/2022 7:00 PM EDT [facility] Comment:e.g., Acetaminophen w/Codeine, Tylenol3 w/ Codeine Codeine Glucuronide <50 Cutoff 50 ng/mL ng/mL 01/05/2022 7:00 PM EDT [facility] Comment:Metabolite of Codein e Meperidine <50 Cutoff 50 ng/mL ng/mL 01/05/2022 7:00 PM EDT [facility] Comment:e.g., Demerol, Pethi dine Normeperidine <50 Cutoff 50 ng/mL ng/mL 01/05/2022 7:00 PM EDT [facility] Comment:Metabolite of Meperi dine Morphine <50 Cutoff 50 ng/mL ng/mL 01/05/2022 7:00 PM EDT [facility] Comment:e.g., MS Contin, Cassy anol; Metabolite of Codeine and Heroin; may reflect poppy seed ingestion Vlnurdeg-3-Krrrbtukcxu <25 Cutoff 25 ng/mL ng/mL 01/05/2022 7:00 PM EDT [facility] Comment:Metabolite of Morphi ne. Vphgchaa-4-Urwzwonbyti <25 Cutoff 25 ng/mL ng/mL 01/05/2022 7:00 PM EDT [facility] Comment:Metabolite of Morphi ne. Naloxone <25 Cutoff 25 ng/mL ng/mL 01/05/2022 7:00 PM EDT [facility] Comment:e.g., Narcan, Evzio Hydrocodone <50 Cutoff 50 ng/mL ng/mL 01/05/2022 7:00 PM EDT [facility] Comment:e.g., Lorcet, Lortab , Vicodin, [place]; Minor Metabolite of Codeine Dihydrocodeine <50 Cutoff 50 ng/mL ng/mL 01/05/2022 7:00 PM EDT [facility] Comment:e.g., Didrate, Parzo ne, Parlor, Synalgos; Metabolite of Hydrocodone Norhydrocodone <50 Cutoff 50 ng/mL ng/mL 01/05/2022 7:00 PM EDT [facility] Comment:Metabolite of Hydroc odone Hydromorphone <50 Cutoff 50 ng/mL ng/mL 01/05/2022 7:00 PM EDT [facility] Comment:e.g., Dilaudid; also Metabolite of Hydrocodone and Minor Metabolite of Morphine Hydromorphone Glucuronide <50 Cutoff 50 ng/mL ng/mL 01/05/2022 7:00 PM EDT [facility] Comment:Metabolite of Hydrom orphone Oxycodone <50 Cutoff 50 ng/mL ng/mL 01/05/2022 7:00 PM EDT [facility] Comment:e.g., Oxycontin, Per cocet, Endocet, Percodan, Roxicet Noroxycodone <50 Cutoff 50 ng/mL ng/mL 01/05/2022 7:00 PM EDT [facility] Comment:Metabolite of Oxycod one Oxymorphone <50 Cutoff 50 ng/mL ng/mL 01/05/2022 7:00 PM EDT [facility] Comment:e.g., Opana; Metabol ite of Oxycodone Oxymorphone Glucuronide <50 Cutoff 5 0 ng/mL ng/mL 01/05/2022 7:00 PM EDT [facility] Comment:Metabolite of Oxycod one Noroxymorphone <50 Cutoff 50 ng/mL ng/mL 01/05/2022 7:00 PM EDT [facility] Comment:Metabolite of Oxycod one, and Oxymorphone, Noroxycodone Metabolite Tramadol <50 Cutoff 50 ng/mL ng/mL 01/05/2022 7:00 PM EDT [facility] Comment:e.g., Ultram, ConZip G-Ouzvokhbn-eco-Tramadol <50 Cutoff 50 ng/mL ng/mL 01/05/2022 7:00 PM EDT [facility] Comment:Metabolite of Tramad ol Tapentadol <50 Cutoff 50 ng/mL ng/mL 01/05/2022 7:00 PM EDT [facility] Comment:Nucynta Tapentadol-Glucuronide <50 Cutoff 50 ng/mL ng/mL 01/05/2022 7:00 PM EDT [facility] Comment:Metabolite of Tapent adol Urine Creatinine 135.9 mg/dL 01/06/20 7:00 PM EDT [facility] Comment: Greater than 20: Consistent with valid sample Greater than 2 but less than 20: Possible dilution Less than 2: Questionable valid sample Urine URINE SPECIMEN COLLECTION / Unknown 01/03/2022 10:15 AM EDT 01/03/2022 10:15 AM EDT Narrative [facility] - 01/05/2022 7:00 PM EDT The absence of expected drug(s), and/or drug metabolite(s), may indicate non-compliance, diluted or adulterated urine, poor drug absorption, concentration of drug below the cut-off, timing of specimen collection relative to administration of drug, or limitations of testing. If results do not fit clinical expectations, please reach out to the Toxicology department at [phone]. Specimens are held for 7 days. This test was developed, and its performance characteristics determined by [facility] [employer] ([facility]). It has not been cleared or approved by the FDA. This test is used for clinical purposes. It should not be regarded as investigational or for research. [facility] is certified under the Clinical Laboratory Improvement Amendments (CLIA) as qualified to perform high complexity clinical laboratory testing. 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 COMPARISON: 01/04/2021 PROCEDURE COMMENTS: Multiplanar multiecho MR [...] AM CLINICAL HISTORY: M54.41-Lumbago with sciatica, right xjir-JRF-93-CM G89.29-Other chronic fmpg-KDA-31-CM. COMPARISON: 01/04/2021 PROCEDURE COMMENTS: Multiplanar multiecho MR [...] of the ordering clinician. Drea Acuna APRN [facility] [place] ORDERABLES Final Result * XR THORACIC [...] of the ordering clinician. us Lawanda Dutton ACTUARIAL INTERN IMG DIAGNOSTIC IMAGING DAGOBERTO OCHOA Final Result [...] No acute osseous findings. - Eloy Carter [facility] IMG DIAGNOSTIC IMAGING ORDERABLES Final Result * IR 2 LEVEL BILATERAL MEDIAL BRANCH BLOCK CERV THOR (07/08/2021 2:47 PM EDT) Anatomical Region Laterality Modality Interventional R adiology Narrative 07/08/2021 5:08 PM EDT [facility] PROCEDURE NOTE Jackie Abdi July 08, [...] @VITALS@ Carlos Langston MD Interventional Pain Management [facility] Spine [facility] Date: 07/08/2021 us Drea Acuna APRN IMG IR ORDERABLES Final Result * IR SACROILIAC JOINT INJECTION (06/24/2021 2:10 PM EDT) Anatomical Region Laterality Modality Interventional R adiology Narrative 06/24/2021 5:32 PM EDT [facility] PROCEDURE NOTE Jackie Abdi June 24, [...] @VITALS@ Carlos Langston MD Interventional Pain Management [facility] [place] Date: 06/24/2021 Drea Acuna APRN IMG IR ORDERABLES Final Result * (ABNORMAL) FRUCTOSAMINE (06/15/2021 7:47 AM EDT) Only the most recent of9 resultswithin the time period is included. Fructosamine 325(H) 205 - 285 mcmol/L 06/15/2021 6:33 PM EDT [facility] Blood Venipuncture / Unknown 06/15/2021 7:47 AM EDT 06/15/2021 7:47 AM EDT Narrative [facility] - 06/15/2021 6:33 PM EDT Serum protein level variations may alter fructosamine results. Agustin Graves MD CHEMISTRY ORDERABLES Final Resu lt Performing Organization Address [facility] Co de Phone Number [facility] [address] [place] [address] , [place] [address] * C-REACTIVE PROTEIN (06/15/2021 7:47 AM EDT) Only the most recent of11 resultswithin the time period is included. Pathologist [facility] CRP <3.00 <=5.00 mg/L 06/15/2021 3:38 PM EDT [facility] Blood Venipuncture / Unknown 06/15/2021 7:47 AM EDT 06/15/2021 7:47 AM EDT Agustin Graves MD CHEMISTRY ORDERABLES Final Resu lt Performing Organization Address [facility] Co de Phone Number [facility] [employer] [address] , [place] [address] * (ABNORMAL) VITAMIN B12 LEVEL (06/15/2021 7:47 AM EDT) Only the most recent of14 resultswithin the time period is included. Vitamin B12 >1,600(H) 232-1,245 pg/mL 06/15/2021 6:33 PM EDT [facility] Blood Venipuncture / Unknown 06/15/2021 7:47 AM EDT 06/15/2021 7:47 AM EDT Narrative [facility] - 06/15/2021 6:33 PM EDT Ingestion of joaquin doses of biotin (>5 mg/day) taken within 8 hours of drawing blood sample can interfere with this immunoassay test. Agustin Graves MD CHEMISTRY ORDERABLES Final Resu lt Performing Organization Address [facility] Co de Phone Number [address] , [place] [address] * C DIFF TOXIN DNA (05/20/2021 7:44 AM EST) Pathologist [facility] C Diff Toxin DNA Negative Negative 05/20/2021 3:39 PM EST [facility] Stool 05/20/2021 7:44 AM EST 05/20/2021 7:44 AM EST Narrative [facility] - 05/20/2021 3:39 PM EST Toxin [...] assay utilizes real time PCR on the ii4b GeneXpert Infinity, and its performance has been verified by the [facility]. A negative result does not rule out the presence of the Clostridium difficile in concentrations below the limit of detection for the assay. Ruthy Montaño MD MICROBIOLOGY - GENERAL ORDERA BLES Final Result Performing Organization Address [facility] Co de Phone Number [address] , [place] [address] * SHIGA TOXIN (05/20/2021 7:44 AM EST) Pathologist [facility] Shiga Toxin Shiga toxins (produced by E. coli) not detected. Shiga toxins (produced by E. coli) not detected. 05/20/2021 8:03 PM EST [facility] [employer] Stool SPECIMEN FROM RECTUM / Unknown 05/20/2021 7:44 AM EST 05/20/2021 7:44 AM EST Ruthy Montaño MD MICROBIOLOGY - GENERAL ORDERA BLES Final Result Performing Organization Address [facility] Co de Phone Number [facility] [place] [address] * STOOL CULTURE (NO STAIN) (05/20/2021 7:44 AM EST) Pathologist [facility] Culture No growth of enteric pathogens, including Salmonella, Shigella, Campylobacter, Vibrio, Yersinia, Aeromonas, Plesiomonas, or E. coli O157. 05/23/2021 1:12 PM EDT [facility] Stool SPECIMEN FROM RECTUM / Unknown 05/20/2021 7:44 AM EST 05/20/2021 7:44 AM EST Ruthy Montaño MD MICROBIOLOGY - GENERAL ORDERA BLES Final Result Performing Organization Address [facility] [[email or web address]] de Phone Number [facility] [place] [place] [address] * (ABNORMAL) FECAL WHITE BLOOD CELLS (05/20/2021 7:44 AM EST) Pathologist [facility] Fecal WBCs Positive(A ) Negative 05/20/2021 5:42 PM EST [facility] Stool COLON STRUCTURE / Unknown 05/20/2021 7:44 AM EST 05/20/2021 7:44 AM EST Narrative [facility] - 05/20/2021 5:42 PM EST POSITIVE for elevated levels of lactoferrin from white blood cells. Ruthy Montaño MD MICROBIOLOGY - GENERAL ORDERA BLES Final Result Performing Organization Address [facility] Co de Phone Number [facility] [address] [place] [address] * MRI CERVICAL SPINE WO CONTRAST (04/29/2021 [...] but incompletely visualized/assessed right parotid gland mass. Rinou-yp-lwajw analysis: C2-3: Left uncovertebral hypertrophy with bilateral [...] Redemonstrated but incompletelyvisualized/assessed right parotid gland mass. Zpvcu-kn-chxvv analysis: C2-3: Left uncovertebral hypertrophy with bilateral [...] R adiology Narrative 04/05/2021 11:12 AM EST [facility] PROCEDURE NOTE Jackie Abdi April 05, [...] @VITALS@ Carlos Langston MD Interventional Pain Management [facility] Date: 04/05/2021 us Holley Torres ACTUARIAL INTERN IMG IR ORDERABLES Final Re sult * URIC ACID (03/09/2021 8:32 AM EST) Only the most recent of3 resultswithin the time period is included. Uric Acid 4.9 3.4 - 7.0 mg/dL 03/09/2021 2:30 PM EST [facility] [employer] Blood Venipuncture / Unknown 03/09/2021 8:32 AM EST 03/09/2021 8:32 AM EST Agustin Graves MD CHEMISTRY ORDERABLES Final Resu lt [facility] [address] [facility] , [place] [address] * (ABNORMAL) IRIS DIABETIC RETINOPATHY EXAM (02/14/2021 1:39 PM EST) Pathologist [facility] Retinopathy Exam Severity ALERT(A) [facility] Right Diabetic Retinopathy Mild(A) [facility] Right Macular Edema Positive [facility] Right Other Retina None [facility] Right Eye Image Quality Gradable Image [facility] Left Diabetic Retinopathy Mild(A) [facility] Left Macular Edema None [facility] Left Other Retina None [facility] Left Eye Image Quality Gradable Image [facility] 02/14/2021 1:39 PM EST 02/14/2021 1:39 PM EST Impressions [facility] - 02/14/2021 7:24 PM EST Retinal Study Result for yoli HANEY 65 y/o, M (: 1955, ) presented to [facility] on 02-14-2021 for a retinal imaging study of the left and right eyes. Based on the findings of the study, the following is recommended for JACKIE ABDI Next Available Appointment: Refer patient to Ophthalmology, as soon as possible. Interpreting Provider's Comments: No comments provided Diagnoses Present: E119 - Type 2 diabetes mellitus without complications [id number] - Diabetes mellitus due to underlying condition with mild nonproliferative diabetic retinopathy without macular edema Left Eye [id number] - Diabetes mellitus due to underlying condition with mild nonproliferative diabetic retinopathy with macular edema Right Eye Right eye findings: Diabetic Retinopathy: Mild Macular Edema: Positive Left eye findings: Diabetic Retinopathy: Mild Negative for Macular Edema This result was electronically signed by Ja Rios, JARREDI: [id number], Taxonomy: [id number] on 02-15-2021 12:24 UT. NOTE: Any pathology noted on this diabetic retinal evaluation should be confirmed by an appropriate ophthalmic examination. us Oswaldo Harry MD OPHTHALMOLOGY SERVICES O LEN[place] Final Result [facility] SK[employer] Carter [facility] [place] [address] * IR LUMBAR/SACRAL JASON WITH GUIDANCE (02/08/2021 11:29 AM EST) Anatomical Region Laterality Modality Interventional R adiology Narrative 02/08/2021 12:28 PM EST [facility] PROCEDURE NOTE Jackie Abdi February 08, [...] @VITALS@ Carlos Langston MD Interventional Pain Management [facility] Date: 02/08/2021 us Carlos Langston MD IMG IR ORDERABLES Final R esult * TESTOSTERONE LEVEL TOTAL (06/16/2020 8:02 AM EDT) Only the most recent of3 resultswithin the time period is included. Testosterone Lvl 361 300 - 720 ng/dL 06/16/2020 2:34 PM EDT [facility] Blood Venipuncture / Unknown 06/16/2020 8:02 AM EDT 06/16/2020 8:02 AM EDT Narrative [facility] - 06/16/2020 2:34 PM EDT Values less than 12 ng/dL are not reliable as the intermediate precision coefficient of variation is > 20%. Ingestion of joaquin doses of biotin (>5 mg/day) taken within 8 hours of drawing blood sample can interfere with this immunoassay test. us Viral Gross V, DO CHEMISTRY ORDERABLES Final Res ult [facility] 1 [facility] , [place] [address] * C-PEPTIDE (01/16/2020 7:49 AM EST) Only the most recent of5 resultswithin the time period is included. C-Peptide 5.16 0.78 - 5.19 ng/mL 01/16/2020 3:47 PM EST [facility] Blood Venipuncture / Unknown 01/16/2020 7:49 AM EST 01/16/2020 7:49 AM EST Agustin Graves MD CHEMISTRY ORDERABLES Final Resu lt [facility], [address], [place] [address] * US GUIDED PAROTID BIOPSY-FNA (01/13/2020 1:00 PM EST) Anatomical Region Laterality Modality Head Ultrasound 01/13/2020 1:00 PM EST Impressions 01/13/2020 3:52 PM EST Successful, uncomplicated ultrasound-guided parotid FNA biopsy procedure. Narrative 01/13/2020 3:52 PM EST US GUIDED PAROTID BIOPSY-FNA 01/13/2020 1:00 PM HISTORY: K11.8-Other diseases of salivary bvqkab-BAM-39-CM. Indeterminate right parotid mass questioned on recent [...] felt to be satisfactory by the attending track template maker. Approximate 15 images and multiple cine loops recorded during the biopsy procedure. No postprocedural complication. The patient was discharged home in stable condition with specific postbiopsy care instructions. Procedure Note Jasper Montaño DO - 01/13/2020 US GUIDED PAROTID BIOPSY-FNA 01/13/2020 1:00 PM HISTORY: K11.8-Other diseases of salivary jjrztg-NQF-47-CM. Indeterminateright parotid mass questioned on recent noncontrast [...] felt to be satisfactory by the attending track template maker. Usfesbnlpdy16 images and multiple cine loops recorded during the biopsy procedure. No postprocedural complication. The patient was discharged home in stablecondition with specific postbiopsy care instructions. IMPRESSION: Successful, uncomplicated ultrasound-guided parotid FNA biopsy procedure. 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 01/14/2020 11:17 AM EST [facility] at 1117 EST EMBEDDED IMAGES 01/14/2020 11:17 AM EST [facility] MICROSCOPIC DESCRIPTION Microscopic examination is performed and the findings corroborate the diagnosis 01/14/2020 11:17 AM [facility] Gross Description FNA Parotid, Right Parotid, Rec'd 6 slides and cytolyt.(CB) Evaluation Episode #1: Adequate / DT 01/14/2020 11:17 AM EST [facility] Aspirate PAROTID GLAND STRUCTURE / Unknown 01/13/2020 11:52 AM EST 01/13/2020 1:45 PM EST Lyle Solo MD CYTOLOGY ORDERABLES Final Res ult Performing Organization Address [facility] Co de Phone Number [facility] [address] [place] [address] * CORONAVIRUS 2019 (01/09/2020 1:00 PM EDT) Only the most recent of2 resultswithin the time period is included. CORONAVIRUS [id number] Not Detected Not Detected 01/09/2020 10:32 PM EDT [facility] Comment:Caution should be ex ercised when interpreting [...] EDT 01/09/2020 1:02 PM EDT Narrative [facility] - 01/09/2020 10:32 PM EDT This test is a nucleic acid amplification test intended for the qualitative detection of nucleic acid from the SARS-CoV-2 in upper respiratory samples collected from individuals suspected of COVID-19. Test is performed on the Taking Point platform under the FDA's Emergency Use Authorization (EUA). [facility] Provider Fact Sheet: https://www.fda.gov/media/232851/download [facility] Patient Fact Sheet: https://www.fda.gov/media/947914/download us Lyle Solo MD MICROBIOLOGY - GENERAL ORDERA BLES Final Result [facility] [address] [facility], [place] [address] * (ABNORMAL) POCT BLADDER SCAN (12/15/2019 10:09 [...] POC Clear Clear 12/15/2019 9:43 AM EDT [facility] UA Gluc POC 100(A) Negative mg/dL 12/15/2019 9:43 AM EDT [facility] Bili POC Negative Negative 12/15/2019 9:43 AM EDT [facility] UA Ketones POC Negative Negative mg/dL 12/15/2019 9:43 AM EDT [facility] UA SG POC 1.020 1.001 [...] 0.2 0.2, 1.0 12/15/2019 9:43 AM EDT [facility] UA Nitrite POC Negative Negative 12/15/2019 9:43 AM EDT [facility]A Leuk Est POC Trace(A) Negative 0 9:43 AM EDT [facility] Urine STRUCTURE OF URINARY TRACT PROPER / Unknown 12/15/2019 9:41 AM EDT 12/15/2019 9:43 AM EDT us Alva Zelaya PA-C POINT OF CARE TEST ORDERAB LES Final Result [facility] [address] [place] [address] * CT CERVICAL SPINE WO [...] uncovertebral hypertrophy, mild on the right and lapa-lw-vmixegri on the left at C5-6 due to uncovertebral hypertrophy, and mild on the right and moderate on the left at C6-7 due to uncovertebral hypertrophy. There is wzrf-ir-apvgbzrl atherosclerotic calcification regional to both common carotid [...] to uncovertebral hypertrophy, mild on theright and tlbi-wy-ezwsujil on the left at C5-6 due to uncovertebral hypertrophy,and mild on the right and moderate on the left at C6-7 due to uncovertebral hypertrophy. There is jevs-xu-plpftged atherosclerotic calcification regional to bothcommon carotid artery [...] prior sternotomy are partially imaged. Procedure Note iNkunj Lewis MD - 12/01/2019 CTA HEAD AND [...] ORDERA BLES Final Result Performing Organization Address City/[facility] Co de Phone Number [facility] [address] [place] [address] * EXTRA LAVENDER (12/01/2019 4:25 PM EDT) Blood VENOUS BLOOD / Unknown Venipuncture / Unknown 12/01/2019 4:25 PM EDT 12/01/2019 4:37 PM EDT Alma Barba MD HEMATOLOGY ORDER SIOBHAN Final Result Performing Organization Address [facility] Co de Phone Number [facility] [address] [place] [address] * EXTRA LIGHT BLUE (12/01/2019 4:25 PM EDT) Blood VENOUS BLOOD / Unknown Venipuncture / Unknown 12/01/2019 4:25 PM EDT 12/01/2019 4:37 PM EDT Alma Barba MD HEMATOLOGY ORDER SIOBHAN Final Result Performing Organization Address [facility] Co de Phone Number [facility] [employer] [address] [place] [address] * SCANNED RHYTHM STRIPS (11/24/2019 4:29 PM EDT) Only the most recent of12 resultswithin the time period is included. Anatomical Region Laterality Modality Other 11/24/2019 4:29 PM EDT us Unknown Unknown IMG ECG ORDERABLES Final Result * PATHOLOGY TISSUE REQUEST (11/20/2019 3:18 PM EDT) Only the most recent of3 resultswithin the time period is included. CASE REPORT Surgical Pathology Case: [id number] Authorizing Provider: Ina Overtno MD Collected: 11/20/2019 4178 Ordering Location: [facility] Received: 11/20/2019 1856 Pathologist: Pamela Harmon MD Specimen: Prostate, *prostate chips* 11/26/2019 7:21 AM EDT [facility] FINAL DIAGNOSIS Prostate, 9 gram, transurethral resection: - Nodular prostatic hyperplasia. 11/26/2019 7:21 AM EDT [facility] at 0721 EDT GROSS DESCRIPTION Received in formalin labeled with the patient's name and prostate chips is a 9 g, 8.6 x 4.7 x 0.7 cm aggregate of baer-granado to white-granado tissue which is entirely submitted in eight cassettes. /TE 11/26/2019 7:21 AM EDT [facility] MICROSCOPIC DESCRIPTION Microscopic examination is performed and the findings corroborate the diagnosis. 11/26/2019 7:21 AM EDT [facility] EMBEDDED IMAGES 11/26/2019 7:21 AM EDT [facility] Tissue PROSTATE / Unknown 0 3:18 PM EDT 11/20/2019 6:52 PM EDT us Ina Overton MD PATHOLOGY ORDERABLES Final Res ult [facility] [address] [place] [address] [facility] [address] [place] [address] * INTRAOP AIRWAY PLACEMENT (11/20/2019 2:43 PM EDT) Narrative [facility] - 11/20/2019 2:43 PM EDT Tod Buckley CRNA 11/20/2019 2:44 PM Intraop Airway Placement: Induction type: IV Laryngoscope blade: Bethea Airway type: ETT- cuffed Device size: 7.5mm Secured by: Tape Placement verified: Auscultation and End tidal CO2 Insertion attempts: 1 Title: DUMB WAITER OPERATOR us Luis A Rodney MD MT ANESTHESIA Final Result [facility] [address] [place] [address] * XR SHOULDER BILATERAL 3 VIEWS (09/03/2019 2:04 PM EDT) Anatomical Region Laterality Modality Shoulder Radiographic Kimberly ging 09/03/2019 2:04 PM EDT Impressions 09/03/2019 2:35 PM EDT No significant arthritic process or acute bone or soft tissue abnormality. - Narrative 09/03/2019 2:35 PM EDT XR SHOULDER BILATERAL 3 VIEWS, 09/03/2019 2:04 PM CLINICAL HISTORY: M25.511-Pain in right jxniiiqr-PBZ-46-CM M25.512-Pain in left acyehxbs-JWZ-27-CM COMPARISON: None. PROCEDURE COMMENTS: Bilateral imaging per the ordered protocol. FINDINGS: Right: Joint spaces are maintained. No erosions or periostitis. No significant bony or soft tissue finding. Left: Joint spaces are maintained. No erosions or periostitis. No significant bony or soft tissue finding. Procedure Note Nikunj Vidales MD - 09/03/2019 XR SHOULDER BILATERAL 3 VIEWS, 09/03/2019 2:04 PM CLINICAL HISTORY: M25.511-Pain in right lnjgwwit-KLX-97-CM M25.512-Pain in left mfaokblj-VGP-53-CM COMPARISON: None. PROCEDURE COMMENTS: Bilateral imaging per [...] - 140 mg/dL 04/17/2019 12:25 PM EST [facility] Comment: REFERENCE INTERVAL: Apolipoprotein B Access complete set of age- and/or gender-specific reference intervals for this test in the [facility] Test Directory ([facility]). Performed by [facility], [address] [place] [address] [email or web address], Lencho Keys MD, Lab. Director Blood Venipuncture / Unknown 04/16/2019 10:36 AM EST 04/16/2019 10:36 AM EST Agustin Graves MD CHEMISTRY ORDERABLES Final Resu lt Performing Organization Address City/[facility]/ZIP Co de Phone Number [facility] [address] [place] [address] * CREATINE KINASE (01/25/2019 11:15 AM EST) CK 138 39 - 308 IU/L 01/25/2019 3:09 PM EST [facility] Blood VENOUS BLOOD / Unknown Venipuncture / Unknown 01/25/2019 11:15 AM EST 01/25/2019 11:15 AM EST Vernon Salinas MD CHEMISTRY ORDERABLES Fi nal Result Performing Organization Address City/[facility]/ZIP Co de Phone Number [facility] [address] [facility] , [place] [address] * XR SHOULDER LEFT 4 VIEWS (01/25/2019 [...] 11:12 AM CLINICAL HISTORY: M25.512-Pain in left nzbxotbm-EAH-57-CM G89.29-Other chronic mcdo-IMS-18-CM COMPARISON: Chest radiograph 09/20/2017 PROCEDURE COMMENTS: Routine views. FINDINGS: No acute fracture or dislocation. Mild AC joint degenerative changes. Type III acromion. Transverse lucency through undersurface hook is favored to be chronic. Broken upper sternotomy wires are evident. Procedure Note Alfredo Roque MD - 01/25/2019 XR SHOULDER LEFT 4 VIEWS, 01/25/2019 11:12 AM CLINICAL HISTORY: M25.512-Pain in left khduzhrh-YKL-00-CM G89.29-Other chronic nopd-INT-38-CM COMPARISON: Chest radiograph 09/20/2017 PROCEDURE COMMENTS: Routine [...] 0.18 <=4.00 ng/mL 11/26/2018 9:36 PM EDT [facility] Blood Venipuncture / Unknown 11/26/2018 4:59 PM EDT 11/26/2018 4:59 PM EDT Narrative [facility] - 11/26/2018 9:36 PM EDT Prostate cancer [...] Alva Zelaya PA-C CHEMISTRY ORDERABLES Final Result [facility] [address] [facility] , [address] [place], [place] [id number] * (ABNORMAL) URINE CULTURE (NO STAIN) (10/25/2018 4:26 PM EDT) Only the most recent of5 resultswithin the time period is included. Culture Positive Growth(A) 2018 10:18 AM EDT [facility] Culture >[id number] CFU/mL Staphylococcus epidermidis SUSCEPTIBI LITY RESULT 10/28/2018 10:18 AM EDT [facility] Urine URINE SPECIMEN COLLECTION, CLEAN CATCH / [...] not be used alone. us Dejuan Rosario ACTUARIAL INTERN MICROBIOLOGY - GENERAL ORDER SIOBHAN Final Result [facility] [address] [facility] , [place] [address] * IRIS DIABETIC RETINOPATHY EXAM (10/14/2018 5:11 PM EDT) [facility] Retinopathy Exam Severity NORMAL [facility] Right Diabetic Retinopathy None [facility] Right Macular Edema None [facility] Right Other Retina None [facility] Right Eye Image Quality Gradable Image [facility] Left Diabetic Retinopathy None [facility] Left Macular Edema None [facility] Left Other Retina None [facility] Left Eye Image Quality Gradable Image [facility] 10/14/2018 5:11 PM EDT 10/14/2018 5:11 PM EDT Impressions [facility] - 10/14/2018 9:57 PM EDT Retinal Study Result for TRINIDADJACKIE JACKIE, a 62 y/o, M (: 1955, ) presented to [facility] on 10-14-2018 for a [...] signed by Ja Rios MD, , Taxonomy: [id number] on 10-15-2018 01:57:[address] [facility] time. NOTE: Any pathology noted on this diabetic retinal evaluation should be confirmed by an appropriate ophthalmic examination. [employer] OPHTHALMOLOGY SERVICES ORDERABL ES Final Result Performing Organization Address [facility] [[email or web address]] de Phone Number [facility] [address] [place] [address] * POCT MICROALBUMIN (10/14/2018 4:39 PM EDT) Only the most recent of6 resultswithin the time period is included. Albumin, Ur 20 <=20 MG/L SEP OFFICE Lot Number [id number] SEP OFFICE Expiration Date 03/11/2019 SEP OFFICE SeriAl # SEP OFFICE Urine 10/14/2018 4:39 PM EDT [employer] DO POINT OF CARE TEST ORDERABLES F inal Result Performing Organization Address [facility] de Phone Number SEP OFFICE * GMED EGD (09/20/2018 8:15 AM EDT) 09/20/2018 8:15 AM EDT Impressions [facility] - 09/20/2018 8:39 AM EDT [...] Fi nal Result Performing Organization Address [facility] Co de Phone Number [facility] [address] [place] [address] * INTRAOP AIRWAY PLACEMENT (09/20/2018 7:58 AM EDT) Narrative [facility] - 09/20/2018 7:58 AM EDT Jessica Epps CRNA 09/20/2018 7:58 AM Intraop Airway Placement: Airway type: Nasal cannula salter Procedure Note Jessica Epps CRNA - 09/20/2018 7:58 AM EDT Intraop Airway Placement: Airway type: Nasal cannula salter Jessica Fair CRNA MT ANESTHESIA Final Result Performing Organization Address City/[facility]/ZIP Co de Phone Number [facility] [address] [place] [address] * GLUTAMIC ACID DECARBOXYLASE AB -REF LAB (07/29/2018 12:43 PM EDT) HUGH Ab <5.0 0.0 - 5.0 IU/mL 07/31/2018 8:21 PM EDT [facility] Comment: INTERPRETIVE INFORMATION: Glutamic Acid Decarboxylase Antibody A value greater than 5.0 IU/mL is considered positive for Glutamic Acid Decarboxylase Antibody (HUGH Ab). This assay is intended for the semi-quantitative determination of the HUGH Ab in human serum. Results should be interpreted within the context of clinical symptoms. Performed by [facility], [address] [place] [address] [email or web address], Lencho Keys MD, Lab. Director Blood Venipuncture / Unknown 07/29/2018 12:43 PM EDT 07/29/2018 12:43 PM EDT Agustin Graves MD CHEMISTRY ORDERABLES Final Resu lt Performing Organization Address [facility] [[email or web address]] de Phone Number [facility] [address] [place] [address] * (ABNORMAL) LIPOPROTEIN (A)-REF LAB (07/29/2018 12:43 PM EDT) Lipo (a) 111(H) <=29 mg/dL 07/31/2018 6:36 AM EDT [facility] Comment: Performed by [facility], [address] [place] [address] [email or web address], Lencho Keys MD, Lab. Director Blood Venipuncture / Unknown 07/29/2018 12:43 PM EDT 07/29/2018 12:43 PM EDT Agustin Graves MD CHEMISTRY ORDERABLES Final Resu lt Performing Organization Address [facility]/ZIP Co de Phone Number [facility] [address] [place] [address] * ADRENOCORTICOTROPIC HORMONE -REF LAB (07/29/2018 12:43 PM EDT) ACTH 12 7 - 69 pg/mL 07/31/2018 11:03 AM EDT [facility] Comment: INTERPRETIVE INFORMATION: Adrenocorticotropic Hormone Some types of synthetic ACTH are not detected by this assay. Access complete set of age- and/or gender-specific reference intervals for this test in the [facility] Test Directory ([employer]). Performed by [facility], [address] [place] [id number] [email or web address], Lencho Keys MD, Lab. Director Blood Venipuncture / Unknown 07/29/2018 12:43 PM EDT 07/29/2018 12:43 PM EDT Agustin Graves MD CHEMISTRY ORDERABLES Final Resu lt Performing Organization Address [facility] de Phone Number [facility] [address] [place] [address] * LACTIC ACID (07/29/2018 12:43 PM EDT) Only the most recent of2 resultswithin the time period is included. Lactic Acid 1.5 0.5 - 1.9 mmol/L 07/29/2018 1:00 PM EDT [facility] Blood Venipuncture / Unknown 07/29/2018 12:43 PM EDT 07/29/2018 12:43 PM EDT Agustin Graves MD CHEMISTRY ORDERABLES Final Resu lt Performing Organization Address City/[facility]/ZIP Co de Phone Number [facility] [address] [place] [address] * CORTISOL (07/29/2018 12:43 PM EDT) [facility] Signature Cortisol 7.69 mcg/dL 07/29/2018 5:4 4 PM EDT [facility] Blood Venipuncture / Unknown 07/29/2018 12:43 PM EDT 07/29/2018 12:43 PM EDT Narrative [facility] - 07/29/2018 5:44 PM EDT Normals: Mornin.2 - 19.4 mcg/dL Evenin.3 - 11.9 mcg/dL Ingestion of joaquin doses of biotin (>5 mg/day) taken within 8 hours of drawing blood sample can interfere with this immunoassay test. Agustin Graves MD CHEMISTRY ORDERABLES Final Resu lt Performing Organization Address [facility] Co de Phone Number [facility] [employer] [employer], [place] [address] * INTRAOP AIRWAY PLACEMENT (07/17/2018 10:17 AM EDT) Narrative [facility] - 07/17/2018 10:17 AM EDT Lis Pearson CRNA 07/17/2018 10:17 AM Intraop Airway Placement: Date/Time: 07/17/2018 10:00 AM Airway type: Nasal cannula salter Procedure Note Lis Pearson CRNA - 07/17/2018 10:17 AM EDT Intraop Airway Placement: Date/Time: 07/17/2018 10:00 AM Airway type: Nasal cannula salter us Barber Lindsey MD MT ANESTHESIA Final Resu lt Performing Organization Address [facility]/[place] [address] * GMED EGD (07/17/2018 9:45 AM EDT) 07/17/2018 9:45 AM EDT Impressions [facility] - 07/26/2018 1:27 PM EDT Normal [...] PROCEDURE ORDERABLES Ed ited Result - Final [facility] [address] [place] [address] * TESTOSTERONE FREE, ADULT MALE -REF LAB (07/04/2018 1:31 PM EDT) Free T Calc 66 47 - 244 pg/mL 07/06/2018 12:20 PM EDT [employer] Comment: INTERPRETIVE INFORMATION: Testosterone, Free Tereso Stage IV 35 - 169 pg/mL Tereso Stage V 41 - 239 pg/mL The concentration of Free Testosterone is derived from a mathematical expression based on the constant for the binding of testosterone to Sex Hormone Binding Globulin (SHBG). Access complete set of age- and/or gender-specific reference intervals for this test in the [facility] Test Directory ([facility]). Performed by [facility], [address] [place] [id number] [email or web address], Lencho Keys MD, Lab. Director Blood Venipuncture / Unknown 07/04/2018 1:31 PM EDT 07/04/2018 1:31 PM EDT us Barbara Cole APRN CHEMISTRY ORDERABLES Final Result Performing Organization Address City/[facility]/ZIP Co de Phone Number [facility] [address] [place], [place] [id number] * TSH REFLEX (05/27/2018 2:42 PM EDT) Only the most recent of2 resultswithin the time period is included. TSH Reflex 2.250 0.270 - 4.200 mcIU/mL 05/27/2018 8:53 PM EDT [facility] Blood Venipuncture / Unknown 05/27/2018 2:42 PM EDT 05/27/2018 2:42 PM EDT Narrative [facility] - 05/27/2018 8:53 PM EDT Ingestion of joaquin doses of biotin (>5 mg/day) taken within 8 hours of drawing blood sample can interfere with this immunoassay test. us Vernon Salinas MD CHEMISTRY ORDERABLES Fi nal Result [facility] [address] [facility] , [place] [address] * IR 2 LEVEL BILATERAL MEDIAL BRANCH [...] Not Detected IU/mL 2017 7:16 AM EDT [facility] [employer] HCV Qnt by NAAT (log IU/mL) Not Detected log IU/mL 2017 7:16 AM EDT [employer] Comment: Hepatitis C Virus (HCV) [...] and Cellular Tissue-Based Products (HCT/P). Performed by [facility], [address] [place] [address] [email or web address], Lencho Keys MD, Lab. Director Blood VENOUS BLOOD / Unknown Venipuncture / Unknown 12/01/2017 9:03 AM EDT 12/01/2017 9:03 AM EDT Vernon Salinas MD IMMUNOLOGY ORDERABLES F inal Result Performing Organization Address [facility] Co de Phone Number [facility] [address] [place] [address] * (ABNORMAL) HEPATITIS C ANTIBODY - SCREENING (11/25/2017 9:25 AM EDT) Hep C Ab Reactive( A) Non-React carmine 11/26/2017 10:31 AM EDT [facility] Comment:Weakly Reactive. Pre sumptive evidence of antibodies [...] ORDERABLES F inal Result Performing Organization Address City/[facility]/ZIP Co de Phone Number [facility] [address] [place] [address] , [place] [address] * INSULIN ANTIBODY -REF LAB (10/04/2017 10:25 AM EDT) Pathologist [facility] Insulin Antibody <0.4 0.0 - 0.4 U/mL 10/08/2017 9:56 AM EDT [facility] Comment: INTERPRETIVE INFORMATION: Insulin Antibody A value [...] the context of clinical symptoms. Performed by [facility], [address] [place] [id number] [email or web address], Lencho Keys MD, Lab. Director Blood VENOUS BLOOD / Unknown Venipuncture / Unknown 10/04/2017 10:25 AM EDT 10/04/2017 10:25 AM EDT us Vernon Salinas MD CHEMISTRY ORDERABLES Fi nal Result Performing Organization Address [facility]/ZIP Co de Phone Number [facility] [address] [place] [address] * INSULIN FASTING (10/04/2017 10:25 AM EDT) [facility] Insulin Fasting 17.33 2.60 - 24.90 mcIU/mL 10/04/2017 4:00 PM EDT [facility] Blood VENOUS BLOOD / Unknown Venipuncture / Unknown 10/04/2017 10:25 AM EDT 10/04/2017 10:25 AM EDT Narrative [facility] - 10/04/2017 4:00 PM EDT Ingestion of joaquin doses of biotin (>5 mg/day) taken within 8 hours of drawing blood sample can interfere with this immunoassay test. Vernon Salinas MD CHEMISTRY ORDERABLES Fi nal Result Performing Organization Address [facility]/ZIP Co de Phone Number [facility] [address] [facility] , [place] [address] * IR ULTRASOUND GUIDED VASCULAR ACCESS (09/24/2017 [...] CULTURE (NO STAIN) 09/27/2017 4:00 PM EDT [facility] Blood VENOUS BLOOD / Unknown Venipuncture / Unknown 09/22/2017 10:17 AM EDT 09/22/2017 10:50 AM EDT us Marlon Yarbrough MD MICROBIOLOGY - GENERAL ORDERA BLES Final Result [facility] [address] [place] [address] , [place] [address] * XR ABDOMEN AP (09/20/2017 7:57 PM [...] 0.08(H) <0.01 ng/mL 09/20/2017 11:14 AM EDT [facility] Blood VENOUS BLOOD / Unknown Venipuncture / Unknown 09/20/2017 10:42 AM EDT 09/20/2017 10:53 AM EDT Narrative [facility] - 09/20/2017 11:14 AM EDT Ingestion of joaquin doses of biotin (>5 mg/day) taken within 8 hours of drawing blood sample can interfere with this immunoassay test. Jasper Dixon MD CHEMISTRY ORDERABLES Amie l Result Performing Organization Address City/State/[facility] Co de Phone Number [facility] [address] [place] [address] * REPEAT LACTIC ACID (09/20/2017 6:49 AM EDT) [facility] Lactic Acid 1.5 0.5 - 1.9 mmol/L 09/20/2017 7:15 AM EDT [facility] Blood VENOUS BLOOD / Unknown Venipuncture / Unknown 09/20/2017 6:49 AM EDT 09/20/2017 6:55 AM EDT Jasper Dixon MD CHEMISTRY ORDERABLES Amie l Result Performing Organization Address [facility] de Phone Number [facility] [address] [place] [address] * EXTRA BAER URINE CX (09/20/2017 4:19 AM EDT) Urine URINE SPECIMEN COLLECTION, CLEAN CATCH / Unknown 09/20/2017 4:19 AM EDT 09/20/2017 4:22 AM EDT Jasper Dixon MD MICROBIOLOGY - GENERAL OR DERABLES Final Result Performing Organization Address [facility] de Phone Number [facility] [address] [place] [address] * (ABNORMAL) BLOOD CULTURE NUCLEIC ACID (GRAM NEG) (09/20/2017 4:12 AM EDT) [facility] Bl Cx Nucleic Acid Test POSITIVE for Enterobacter species by [facility] nucleic acid test. Conventional identification and antimicrobial susceptibility testing to follow.(A) Negative 09/21/2017 6:13 AM EDT [facility] [place] Blood VENOUS BLOOD / Unknown Venipuncture / Unknown 09/20/2017 4:12 AM EDT 09/20/2017 4:20 AM EDT us Jasper Dixon MD MICROBIOLOGY - GENERAL OR DERABLES Final Result Performing Organization Address [facility] Co de Phone Number [facility] [facility] [place] [address], [place] [address] * POCT HEMOCCULT 1-3 CARDS (09/19/2016 11:59 AM EDT) Only the most recent of2 resultswithin the time period is included. Pathologist [facility] Fec Heme neg POS/NEG SEP OFFICE Lot [...] resultswithin the time period is included. Pathologist [facility] LDL Calculated 48 <=100 mg/dL [facility] Comment: < 100 Optimal 100 - 129 Near or above optimal 130 - 159 Borderline High 160 - 189 High >= 190 Very High Blood specimen (specimen) 07/27/2016 3:35 PM EDT 07/27/2016 7:35 PM EDT Angelina Zaldivar MD CHEMISTRY ORDERABLES Amie l Result [facility] [address] [place] [address] * T3 FREE (09/18/2015 11:42 AM EDT) Pathologist [facility] T3 Free 3.40 2.00 - 4.40 pg/mL [facility] Blood specimen (specimen) UPPER LIMB STRUCTURE / Unknown 09/18/2015 11:42 AM EDT 09/18/2015 1:41 PM EDT us Daniela L Garcia ACTUARIAL INTERN CHEMISTRY ORDERABLES Final R esult [facility] [address] [place] [id number] * (ABNORMAL) POCT GLUCOSE (09/01/2013 3:44 PM [...] included. K-WB 4.2 3.5 - 5.0 mEq/L [facility] Blood specimen (specimen) UPPER LIMB STRUCTURE / Unknown 08/27/2013 8:43 PM EDT 08/27/2013 8:48 PM EDT us Samuel Newton Jo MD CHEMISTRY ORDERABLES F inal Result Performing Organization Address [facility] Co de Phone Number [facility] [address] [place] [address] * (ABNORMAL) DIFFERENTIAL (08/27/2013 4:30 AM EDT) Only the most recent of4 resultswithin the time period is included. Neut Percent 75.1 % [facility] Lymph Percent 13.9 % [facility] Sully Percent 10.5 % [facility] Eos Percent 0.1 % [facility] Baso Percent 0.4 % [facility] Neut# 9.4(H) 1.8 - 7.7 x10(3)/mcL [facility] Lymph# 1.7 0.6 - 4.8 x10(3)/mcL [facility] Sully# 1.3 0.0 - 1.3 x10(3)/mcL [facility] Eos# 0.0 0.0 - 0.5 x10(3)/[facility] Baso# 0.0 0.0 - 0.2 x10(3)/[facility] Blood specimen (specimen) 08/27/2013 4:30 AM EDT 08/27/2013 4:32 AM EDT Samuel Jo MD HEMATOLOGY ORDERABLES Final Result Performing Organization Address [facility] Co de Phone Number [facility] [address] [place] [address] * O2 SAT - MIXED VENOUS (08/26/2013 4:45 AM EDT) Only the most recent of2 resultswithin the time period is included. O2 Sat - Mixed Venous 73 % [facility] Blood specimen (specimen) 08/26/2013 4:45 AM EDT 08/26/2013 4:52 AM EDT Samuel Jo MD CHEMISTRY ORDERABLES F inal Result Performing Organization Address [facility] Co de Phone Number [facility] [address] [place] [address] * (ABNORMAL) BLOOD GAS ARTERIAL (08/26/2013 3:15 AM EDT) Only the most recent of9 resultswithin the time period is included. pH 7.350(L) 7.370 - 7.440 [facility] pCO2 43 32 - 45 mmHg [facility] pO2 60(L) 80 - 95 mmHg [facility] HCO3 24 20 - 29 mmol/L [facility] TCO2 25 21 - 30 mmol/L [facility] Base Excess -2.0 -2.8 - 2.3 mEq/L [facility] O2 Sat 96 95 - 97 % [facility] Inspired O2 4L [facility] Specimen Type Arterial [facility] Blood specimen (specimen) UPPER LIMB STRUCTURE / Unknown 08/26/2013 3:15 AM EDT 08/26/2013 3:24 AM EDT Samuel Jo MD CHEMISTRY ORDERABLES F inal Result Performing Organization Address [facility] Co de Phone Number [facility] [address] [place] [address] * (ABNORMAL) HEMOGLOBIN AND HEMATOCRIT (08/25/2013 4:40 PM EDT) Pathologist [facility] Hgb 11.0(L) 13.5 - 17.1 gm/dL [facility] Hct 31.8(L) 38.9 - 51.6 % [facility] Blood specimen (specimen) UPPER LIMB STRUCTURE / Unknown 08/25/2013 4:40 PM EDT 08/25/2013 4:42 PM EDT Narrative [facility] - 08/25/2013 4:47 PM EDT 4 hours after admission to [facility] Samuel Jo MD HEMATOLOGY ORDERABLES Final Result Performing Organization Address City/[facility]/ZIP Co de Phone Number [facility] [address] [place] [address] * (ABNORMAL) PARTIAL THROMBOPLASTIN TIME (08/25/2013 1:35 PM EDT) PTT 69.1(H) 24.4 - 35.0 second(s) [facility] Comment: Therapeutic range for direct [...] PM EDT 08/25/2013 1:35 PM EDT Narrative [facility] - 08/25/2013 2:17 PM EDT On admission to [facility] us Samuel Jo MD HEMATOLOGY ORDERABLES Final Result Performing Organization Address City/[facility] Co de Phone Number [facility] [address] [place] [address] * FIBRINOGEN (08/25/2013 1:35 PM EDT) Fibrinogen 214 196 - 447 mg/dL [facility] Blood specimen (specimen) 08/25/2013 1:35 PM EDT 08/25/2013 1:35 PM EDT Narrative [facility] - 08/25/2013 2:06 PM EDT On admission to [facility] us Samuel Jo MD HEMATOLOGY ORDERABLES Final Result Performing Organization Address [facility] [[email or web address]] de Phone Number [facility] [address] [place] [address] * HEPARIN ANTI-XA, UNF (08/25/2013 5:05 AM EDT) Only the most recent of5 resultswithin the time period is included. Heparin Level UNF 0.37 0.30 - 0.70 IU/mL [facility] Comment: The therapeutic range for heparinized patients monitored by the Heparin Lvl UF is 0.30-0.70 IU/mL. Blood specimen (specimen) 08/25/2013 5:05 AM EDT 08/25/2013 5:48 AM EDT Narrative [facility] - 08/25/2013 6:09 AM EDT Heparin anti-Xa unfractionated level every day while on heparin us Tod Wolf MD HEMATOLOGY ORDERABLES Final Re sult [facility] [address] [place] [address] * STAPHYLOCOCCUS AUREUS SCREEN (08/24/2013 1:37 PM EDT) Final Growth of Staphylococcus aureus identified as methicillin sensitive. [facility] Specimen from nose (specimen) 08/24/2013 1:37 PM EDT 08/24/2013 2:13 PM EDT us Samuel Jo MD MICROBIOLOGY - GENERAL ORDERABLES Final Result Performing Organization Address [facility] Co de Phone Number [facility] [address] [place] [address] * ABORH (08/24/2013 1:06 PM EDT) ABORh Int A NEG [facility] Blood specimen (specimen) 08/24/2013 1:06 PM EDT 08/24/2013 1:30 PM EDT Narrative [facility] - 08/24/2013 2:50 PM EDT Only if redo patient us Samuel Jo MD BLOOD BANK ORDERABLES Final Result Performing Organization Address [facility] Co de Phone Number [facility] [address] [place] [address] * ANTIBODY SCREEN IGG (08/24/2013 1:06 PM EDT) ABSC IgG Int Negative [facility] Blood specimen (specimen) 08/24/2013 1:06 PM EDT 08/24/2013 1:30 PM EDT Narrative [facility] - 08/24/2013 2:48 PM EDT Only if redo patient us Samuel Jo MD BLOOD BANK ORDERABLES Final Result Performing Organization Address [facility]/ZIP Co de Phone Number [facility] [address] [place] [address] * SALES LEADER PROCEDURE LOG (08/22/2013 12:00 AM EDT) us Jeffy Mehlman MD [facility] CARDIAC CATH ORDERABLES Amie mcgee Result [facility] [address] [place] [address] * SCANNED OR REPORT (10/19/2009 12:00 AM EDT) Narrative 10/19/2009 3:51 PM EDT Ordered by an unspecified provider. Transcriptions Unknown, U - 10/19/2009 3:36 PM EDT us U Unknown PROCEDURE/MINOR SURGICAL ORDERAB LES Final Result * CT ABD/PELVIS CASCADE OPERATOR GC (02/07/2009 12:59 AM EST) Anatomical Region [...] is no free fluid or free air. Lmu-[id number] images of the liver and spleen are unremarkable. Impression- No acute findings of the abdomen or pelvis. Clinical Interviewer- MARQUITA KING Reading Physician- SHELL YUSUF MD [...] is no free fluid or free air. Kqb-ahieclmm-bhozggkh images of the liver and spleen are unremarkable. Impression- No acute findings of the abdomen or pelvis. Clinical Interviewer- MARQUITA KING Reading Physician- SHELL YUSUF MD Released Date Time- 02/07/09 1228 Jarek Pack MD [facility] HISTORICAL F inal Result * XR [...] Released Date Time- 02/07/091224 Jarek Pack MD [facility] RAD HISTORICAL F inal Result [...] Date Time- 08/26/07 0543 Timothy Carrion MD [facility] mcgee Result Visit Diagnoses Diagnosis [...] Chest pain, unspecified 08/22/2013 Coronary atherosclerosis of makah coronary artery 08/25/2013 CAD (coronary artery disease) Coronary atherosclerosis of unspecified type of vessel, makah or graft 08/23/2013 Chest pain Chest pain, [...] Coronary atherosclerosis of unspecified type of vessel, makah or graft 09/01/2013 HTN (hypertension) Unspecified essential [...] Coronary atherosclerosis of unspecified type of vessel, makah or graft 09/16/2013 HTN (hypertension) Unspecified essential [...] Coronary atherosclerosis of unspecified type of vessel, makah or graft 04/18/2014 Vitamin D deficiency Unspecified [...] Coronary atherosclerosis of unspecified type of vessel, makah or graft 09/22/2014 Chest pain Chest pain, [...] complication, without long-term current use of insulin ([facility]) 12/27/2015 Type 2 diabetes mellitus with complication ([facility]) 03/30/2016 Back pain with left-sided radiculopathy 04/04/2016 Controlled type 2 diabetes mellitus without complication, without long-term current use of insulin (HCC) 04/04/2016 Type 2 diabetes mellitus without complication, without long-term current use of insulin ([facility]) 04/04/2016 Hypertension associated with diabetes ([facility]) Type II or unspecified type diabetes mellitus [...] Type 2 diabetes mellitus without complication, unspecified intermission coordinator insulin use status 12/20/2016 Candidiasis Candidiasis of unspecified site 04/03/2017 Type 2 diabetes mellitus without complication, unspecified fci insulin use status 06/06/2017 Ischemic heart disease [...] 2 diabetes mellitus without complication, unspecified whether intermission coordinator insulin use 10/06/2017 Controlled type 2 diabetes [...] 2 diabetes mellitus without complication, unspecified whether intermission coordinator insulin use 11/25/2017 Type 2 diabetes mellitus without complication, unspecified whether intermission coordinator insulin use 11/26/2017 Hepatitis C antibody positive [...] 2 diabetes mellitus without complication, unspecified whether fci insulin use 03/02/2018 Spondylosis of lumbar region [...] 2 diabetes mellitus without complication, unspecified whether fci insulin use 05/28/2018 Obesity, Class II, BMI [...] D deficiency 07/29/2018 Coronary artery disease involving makah heart without angina pectoris, unspecified vessel or [...] 2 diabetes mellitus without complication, unspecified whether intermission coordinator insulin use 10/14/2018 Essential hypertension Unspecified essential hypertension 10/14/2018 Coronary artery disease involving makah heart without angina pectoris, unspecified vessel or [...] 2 diabetes mellitus without complication, unspecified whether intermission coordinator insulin use 01/20/2019 Obesity, Class I, BMI [...] disease, unspecified 02/20/2019 Coronary artery disease involving makah heart without angina pectoris, unspecified vessel or [...] disease, unspecified 03/14/2019 Coronary artery disease involving makah heart without angina pectoris, unspecified vessel or [...] 2 diabetes mellitus without complication, unspecified whether intermission coordinator insulin use 10/13/2019 Dyslipidemia associated with type 2 diabetes mellitus (HCC) Type II or unspecified type diabetes mellitus with other specified manifestations, not stated as uncontrolled 10/13/2019 Vitamin B12 deficiency Other B-complex deficiencies 10/13/2019 Type 2 diabetes mellitus without complication, unspecified whether fci insulin use 10/17/2019 BPH with obstruction/lower urinary [...] disease, unspecified 11/06/2019 Coronary artery disease involving makah heart without angina pectoris, unspecified vessel or [...] in head and neck 12/15/2019 Hx of intermission coordinator use of blood thinners Encounter for long-term [...] disease, unspecified 06/23/2020 Coronary artery disease involving makah heart without angina pectoris, unspecified vessel or lesion type 06/23/2020 S/P CABG x 3 Postsurgical aortocoronary bypass status 06/23/2020 Ventricular bigeminy Other specified cardiac dysrhythmias 06/23/2020 Other secondary osteoarthritis of right shoulder 07/13/2020 Complete tear of right rotator cuff, unspecified whether traumatic 07/13/2020 Coronary artery disease involving makah heart without angina pectoris, unspecified vessel or [...] 2 diabetes mellitus without complication, unspecified whether fci insulin use 02/14/2021 Abscess Cellulitis and abscess [...] Other psoriasis 03/06/2022 Coronary artery disease involving makah heart without angina pectoris, unspecified vessel or lesion type 03/07/2022 Mixed hyperlipidemia 03/07/2022 Chest pain, unspecified type 03/07/2022 Ischemic heart disease Chronic ischemic heart disease, unspecified 03/07/2022 S/P CABG x 3 Postsurgical aortocoronary bypass status 03/07/2022 Atherosclerotic heart disease of makah coronary artery with other forms of angina [...] in adult 03/20/2022 Atherosclerotic heart disease of makah coronary artery with other forms of angina [...] pain Cervicalgia 04/10/2022 Coronary artery disease involving makah heart without angina pectoris, unspecified vessel or [...] both knees 05/19/2022 Atherosclerotic heart disease of makah coronary artery with other forms of angina [...] 2 (HCC) 08/11/2022 Coronary artery disease involving makah heart without angina pectoris, unspecified vessel or lesion type 08/14/2022 Mixed hyperlipidemia 08/14/2022 Ischemic heart disease Chronic ischemic heart disease, unspecified 08/14/2022 S/P CABG x 3 Postsurgical aortocoronary bypass status 08/14/2022 Hematoma of groin, initial encounter 08/14/2022 Other specified complications of surgical and medical care, not elsewhere classified, initial encounter 08/14/2022 Coronary artery disease involving makah heart without angina pectoris, unspecified vessel or [...] Mixed hyperlipidemia 09/23/2022 Coronary artery disease involving makah heart without angina pectoris, unspecified vessel or [...] hyperglycemia (HCC) 09/27/2022 Coronary artery disease involving makah heart without angina pectoris, unspecified vessel or [...] hyperglycemia (HCC) 11/02/2022 Coronary artery disease involving makah heart without angina pectoris, unspecified vessel or [...] of care 03/16/2023 Coronary artery disease involving makah heart without angina pectoris, unspecified vessel or [...] CKD (HCC) 04/11/2023 Coronary artery disease involving makah heart without angina pectoris, unspecified vessel or [...] and sinuses 06/20/2023 Coronary artery disease involving makah heart without angina pectoris, unspecified vessel or lesion type 06/21/2023 Mixed hyperlipidemia 06/21/2023 Ischemic heart disease Chronic ischemic heart disease, unspecified 06/21/2023 Congestive heart failure, unspecified HF chronicity, unspecified heart failure type ([facility]) 06/21/2023 S/P CABG x 3 Postsurgical aortocoronary [...] residual deficits 07/16/2023 Coronary artery disease involving makah heart without angina pectoris, unspecified vessel or [...] without myelopathy 09/18/2023 Coronary artery disease involving makah heart without angina pectoris, unspecified vessel or lesion type 09/20/2023 S/P CABG x 3 Postsurgical aortocoronary bypass status 09/20/2023 SOB (shortness of breath) Shortness of breath 09/20/2023 Chest pain, unspecified type 09/20/2023 Dyslipidemia associated with type 2 diabetes mellitus (HCC) Type II or unspecified type diabetes mellitus with other specified manifestations, not stated as uncontrolled 09/20/2023 Coronary artery disease involving makah heart without angina pectoris, unspecified vessel or [...] NYHA class I, acute on chronic, combined ([facility]) 09/20/2023 Uncontrolled type 2 diabetes mellitus with hyperglycemia ([facility]) 09/23/2023 Dyslipidemia associated with type 2 diabetes mellitus ([facility]) Type II or unspecified type diabetes mellitus with other specified manifestations, not stated as uncontrolled 09/29/2023 Coronary artery disease involving makah heart without angina pectoris, unspecified vessel or [...] Coronary atherosclerosis of unspecified type of vessel, makah or graft 10/01/2023 Other forms of angina pectoris 10/01/2023 SOB (shortness of breath) Shortness of breath 10/01/2023 ASHD (arteriosclerotic heart disease) Coronary atherosclerosis of unspecified type of vessel, makah or graft 10/01/2023 Coronary artery disease involving makah heart without angina pectoris, unspecified vessel or lesion type 10/17/2023 Other forms of angina pectoris 10/17/2023 Sore throat Acute pharyngitis 10/23/2023 Runny nose Other diseases of nasal cavity and sinuses 10/23/2023 Uncontrolled type 2 diabetes mellitus with hyperglycemia ([facility]) 10/24/2023 Gastroesophageal reflux disease with esophagitis, unspecified [...] Coronary atherosclerosis of unspecified type of vessel, makah or graft 11/06/2023 Dyslipidemia associated with type [...] Dyslipidemia associated with type 2 diabetes mellitus ([facility]) Type II or unspecified type diabetes mellitus [...] NYHA class I, acute on chronic, combined ([facility]) 12/11/2023 Uncontrolled type 2 diabetes mellitus with hyperglycemia ([facility]) 12/12/2023 Gastroesophageal reflux disease with esophagitis, unspecified whether hemorrhage 12/12/2023 CHF (congestive heart failure), NYHA class I, acute on chronic, combined ([facility]) 12/12/2023 Uncontrolled type 2 diabetes mellitus with hyperglycemia ([facility]) 12/19/2023 Stage 3 chronic kidney disease, unspecified whether stage 3a or 3b CKD ([facility]) 12/19/2023 Numbness and tingling of left arm [...] failure 12/31/2023 Stage 3a chronic kidney disease ([facility]) 01/01/2024 Vitamin D deficiency Unspecified vitamin D deficiency 01/01/2024 CHF (congestive heart failure), NYHA class I, acute on chronic, combined ([facility]) 12/31/2023 Uncontrolled type 2 diabetes mellitus with hyperglycemia (HCC) 01/04/2024 CHF (congestive heart failure), NYHA class I, acute on chronic, combined ([facility]) 01/04/2024 Acute on chronic systolic congestive heart failure (HCC) Acute on chronic systolic heart failure 01/04/2024 Stage 3 chronic kidney disease, unspecified whether stage 3a or 3b CKD (HCC) 01/04/2024 Stage 3a chronic kidney disease (HCC) 01/04/2024 Chronic kidney disease-mineral and bone disorder 01/04/2024 Uncontrolled type 2 diabetes mellitus with hyperglycemia ([facility]) 01/08/2024 CHF (congestive heart failure), NYHA class I, acute on chronic, combined ([facility]) 01/08/2024 Seasonal allergic rhinitis due to pollen 01/14/2024 CHF (congestive heart failure), NYHA class I, acute on chronic, combined (HCC) 01/14/2024 Acute bronchitis, unspecified organism 01/14/2024 Uncontrolled type 2 diabetes mellitus with hyperglycemia ([facility]) 01/14/2024 CHF (congestive heart failure), NYHA class I, acute on chronic, combined ([facility]) 01/14/2024 CHF (congestive heart failure), NYHA class I, acute on chronic, combined ([facility]) 01/31/2024 CHF (congestive heart failure), NYHA class I, acute on chronic, combined (HCC) 02/01/2024 CHF (congestive heart failure), NYHA class I, acute on chronic, combined ([facility]) 02/11/2024 Fluid retention in legs Edema 02/13/2024 [...] NYHA class I, acute on chronic, combined ([facility]) 02/13/2024 Psoriasis of scalp Other psoriasis 03/01/2024 Uncontrolled type 2 diabetes mellitus with hyperglycemia ([facility]) 03/17/2024 CHF (congestive heart failure), NYHA class I, acute on chronic, combined ([facility]) 03/17/2024 Enrolled in chronic care management 03/17/2024 CHF (congestive heart failure), NYHA class I, acute on chronic, combined ([facility]) 04/06/2024 Uncontrolled type 2 diabetes mellitus with hyperglycemia ([facility]) 04/06/2024 Acute on chronic systolic congestive heart failure (HCC) Acute on chronic systolic heart failure 04/08/2024 Class 2 severe obesity due to excess calories with serious comorbidity and body mass index (BMI) of 35.0 to 35.9 in adult 04/08/2024 Stage 3b chronic kidney disease (HCC) 04/08/2024 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, unspecified whether fci insulin use ([facility]) 04/08/2024 Tinea corporis Dermatophytosis of the body 04/08/2024 Psoriasis of scalp Other psoriasis 05/01/2024 Uncontrolled type 2 diabetes mellitus with hyperglycemia ([facility]) 05/05/2024 CHF (congestive heart failure), NYHA class I, acute on chronic, combined ([facility]) 05/05/2024 Enrolled in chronic care management 05/05/2024 ASHD (arteriosclerotic heart disease) Coronary atherosclerosis of unspecified type of vessel, makah or graft 05/06/2024 Dyslipidemia associated with type 2 diabetes mellitus ([facility]) Type II or unspecified type diabetes mellitus with other specified manifestations, not stated as uncontrolled 05/06/2024 S/P CABG x 3 Postsurgical aortocoronary bypass status 05/06/2024 Psoriasis of scalp Other psoriasis 05/16/2024 Uncontrolled type 2 diabetes mellitus with hyperglycemia ([facility]) 05/20/2024 Pure hypercholesterolemia 05/20/2024 Seasonal allergic rhinitis due to pollen 05/20/2024 Acute bronchitis, unspecified organism 05/20/2024 Facial rash 05/20/2024 Uncontrolled type 2 diabetes mellitus with hyperglycemia ([facility]) 05/28/2024 CHF (congestive heart failure), NYHA class I, acute on chronic, combined ([facility]) 05/28/2024 Enrolled in chronic care management 05/28/2024 Uncontrolled type 2 diabetes mellitus with hyperglycemia ([facility]) 06/05/2024 CHF (congestive heart failure), NYHA class I, acute on chronic, combined ([facility]) 06/05/2024 Enrolled in chronic care management 06/05/2024 Sore throat Acute pharyngitis 06/11/2024 Runny nose Other diseases of nasal cavity and sinuses 06/11/2024 Acute bacterial sinusitis Acute sinusitis, unspecified 06/16/2024 Essential hypertension Unspecified essential hypertension 06/25/2024 Uncontrolled type 2 diabetes mellitus with hyperglycemia (HCC) 06/26/2024 Gastroesophageal reflux disease with esophagitis, unspecified whether hemorrhage 07/02/2024 Coronary artery disease involving makah heart without angina pectoris, unspecified vessel or [...] and sinuses 09/18/2024 Coronary artery disease involving makah heart without angina pectoris, unspecified vessel or lesion type 09/30/2024 Chest pain, unspecified type 09/30/2024 Coronary artery disease involving makah heart without angina pectoris, unspecified vessel or [...] Coronary atherosclerosis of unspecified type of vessel, makah or graft 08/23/2013 S/P CABG x 3 [...] Coronary atherosclerosis of unspecified type of vessel, makah or graft 09/20/2017 Acute pyelonephritis Acute pyelonephritis [...] Coronary atherosclerosis of unspecified type of vessel, makah or graft 12/01/2019 Uncontrolled type 2 diabetes [...] NYHA class I, acute on chronic, combined ([facility]) 08/18/2022 Uncontrolled type 2 diabetes mellitus with hyperglycemia ([facility]) 08/18/2022 S/P CABG x 3 Postsurgical aortocoronary [...] Coronary atherosclerosis of unspecified type of vessel, makah or graft 12/31/2023 Goals Goal Patient Goal [...] EDT) No Carlee Rose CMA Care Teams Funeral Prearrangement Counselor Relationship Specialty Start Date End Date Carlos A Gross DO [address] [place] [phone] PCP - General Family Medicine 06/15/20 Sapphier Munguia MD [address] [place] [id number] Internal Medicine-Cardiovascular Disease 04/11/22
--- OUTSIDE RECORDS SUMMARY | 2025-01-23 09:42 | XMS_ITS | Encounter Summary ---
Author Organization [facility] Address [address] [facility] [address] [place] [address] Care Team Providers Care Customer Relations Representative Name Role Phone Renato Rey DO, Viral Primary Care Provider Ariana Munguia MD Unavailable [phone] Allison Angel RN Unavailable Unavailable Reason for Visit * Reason Comments Medication Refill Encounter Details Date Type Department Care Team (Late st Contact Info) Description 08/19/2024 Refill [facility] [place] [address] [place] [address] Abel Hernandez MD [address] [place] [address] Medication Refill Social History Tobacco Use Types [...] Recorded PHQ-2 Total Score 0 01/01/2024 [facility] [place] of Occupat ional Health - Occupational Stress [...] things needed for daily living? No 07/24/2024 [facility] IP Transportation Answer D ate Recorded In [...] as of this encounter Care Teams Customer Relations Representative Relationship Specialty Start Date End Date Carlos A Gross DO [address] [place] [phone] PCP - General Family Medicine 06/15/20 Ariana Munguia MD [address] [place] [id number] Internal Medicine-Cardiovascular Disease 04/11/22 Allison Angel, JAMISON Certified Emergency Vehicle Technician Registered Nurse 11/28/23 09/01/24 documented as of this encounter
--- OUTSIDE RECORDS SUMMARY | 2025-01-23 09:43 | XMS_ITS | Encounter Summary ---
Author Organization [place] [address] Care Team Providers Care Relief Pharmacist Name Role Phone Renato Rey DO Viral Primary Care Provider [phone] Ariana Munguia MD Unavailable [phone] Reason for Visit * Reason Onset Date Comments Medication Management 10/15/2024 Lantus Encounter Details Date Type Department Care Team (Late st Contact Info) Description 10/15/2024 Telephone [facility] [place] [address] [place] [address] Carlos A Gross DO [address] [place] [address] Medication Management (Lantus ) Social History Tobacco Use Types Packs/Day Years Used Date Smoking Tobacco: Never Smokeless Tobacco: Never Alcohol Use Standard Drinks/Week Comments No 0 (1 standard drink = 0.6 oz pur e alcohol) NO [facility] Utilities Answer Date Recorded In the [...] Date Recorded PHQ-2 Total Score 0 01/01/2024 [facility] [place] of Occupat ional Health - Occupational Stress [...] things needed for daily living? No 07/24/2024 [facility] IP Transportation Answer D ate Recorded [...] documented as of this encounter Care Teams Relief Pharmacist Relationship Specialty Start Date End Date Carlos A Gross DO [address] [place] [phone] PCP - General Family Medicine 06/15/20 Ariana Munguia MD [address] [place] [id number] Internal Medicine-Cardiovascular Disease 04/11/22 documented as of this encounter
--- OUTSIDE RECORDS SUMMARY | 2025-01-23 09:43 | XMS_ITS | Data Portability ---
Author Organization [facility] Address [address] [place] [address] Care Team Providers Care Undercover Operator Name Role Phone SAPPHIRE JIMÉNEZ Referring Provider [phone] Assessment Encounter Date Assessment Date Assessment LastModified [...] plasma 2024 025 RAJESH [facility], [address], Addy [address], [place], [address], 5 08:12:50 C-peptide, serum 2024 025 RAJESH [facility], [address], [address], [place], [address], 5 08:12:50 amylase + lipase, serum 2024 025 RAJESH [facility], [address], [address], [place], [address], 08:12:50 Referral police communications dispatcher referral 2024 RAJESH Gallardo DPM, [address] [place], [address], 19:05:51 Procedures None recorded. Surgeries None recorded. Imaging US, duplex, abdomen, complete 2024 [facility] (Scheduling), [address] [address] [facility] [address], [place], [address], 17:58:50 XR, lumbosacral spine, 2 or 3 view 2024 [facility] (X-Ray), [address] [place] [address] [address], [place], [address], 10:16:14 electrocard iogram 2024 025 [facility], [address] [place] [address], [address], 16:45:44 Medication Orders cephalexin 500 mg capsule 2024 025 [facility], [address] [place], [address], 05:02:12 mupirocin 2 % topical ointment 2024 025 [facility], [address] [place], [address], 16:00:36 doxycycline hyclate 100 mg capsule 2024 025 [facility], [address] [place], [address], 05:01:57 Patient TargetsNo targets recorded. Patient Instructions Encounter Date Encounter Id Patient Instructions Last Modified By Organization Details Last Modified Time 10/28/2024 [id number] advance directives: care instructions efryman Not available 10/28/2024 14:22:03 learning about depression efryman Not available 10/28/2024 14:22:02 learning about healthy weight efryman Not available 10/28/2024 14:22:03 body mass index: care instructions efryman Not available 10/28/2024 14:22:02 preventing falls : care instructions efryman Not available 10/28/2024 14:22:03 medicare preventive services guide efryman Not available 10/28/2024 14:22:03 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 METAB OLIC PANEL (14) glucose 486 mg/dL 70-99 above high normal Not Available [facility] ([facility]) [address] [place], [address], 01/21/2025 08:12:50 01/21/20 25 01/21/2025 COMP. METAB OLIC PANEL (14) BUN 30 mg/dL 8-27 above high normal Not Available [facility] ([facility]) [address] [place], [address], 01/21/2025 08:12:50 01/21/20 25 01/21/2025 COMP. METAB OLIC PANEL (14) creatinine 1.79 mg/dL 0.76-1 .27 above high normal Not Available [facility] ([facility]) [address] [place], [address], 01/21/2025 08:12:50 01/21/20 25 01/21/2025 COMP. METAB OLIC PANEL (14) eGFR 40 mL/mi n/1.7 3 >59 below low normal Not Available [facility] ([facility]) [address] [facility], [place], [address], 01/21/2025 08:12:50 01/21/20 25 01/21/2025 COMP. METAB OLIC PANEL (14) BUN/creatini ne ratio 17 10-24 normal Not Available [facility] ([facility]) [address] [facility] [place], [address], 01/21/2025 08:12:50 01/21/20 25 01/21/2025 COMP. METAB OLIC PANEL (14) sodium 131 mmol/ L 134-14 4 below low normal Not Available [facility] ([facility]) [address] [facility], [place], [address], 01/21/2025 08:12:50 01/21/20 25 01/21/2025 COMP. METAB OLIC PANEL (14) potassium 5.5 mmol/ L 3.5-5. 2 above high normal Not Available [facility] ([facility]) [address] [facility] [place], [address], 01/21/2025 08:12:50 01/21/20 25 01/21/2025 COMP. METAB OLIC PANEL (14) chloride 97 mmol/ L 96-106 normal Not Available [facility] ([facility]) [address] [facility] [place], [address], 01/21/2025 08:12:50 01/21/20 25 01/21/2025 COMP. METAB OLIC PANEL (14) carbon dioxide, total 19 mmol/ L 20-29 below low normal Not Available [facility] ([facility]) [address] [place], [address], 01/21/2025 08:12:50 01/21/20 25 01/21/2025 COMP. METAB OLIC PANEL (14) calcium 9.6 mg/dL 8.6-10 .2 normal Not Available [facility] ([facility]) [address] [facility] [place], [address], 01/21/2025 08:12:50 01/21/20 25 01/21/2025 COMP. METAB OLIC PANEL (14) protein, total 5.9 g/dL 6.0-8. 5 below low normal Not Available [facility] ([facility]) [address] [place], [address], 01/21/2025 08:12:50 01/21/20 25 01/21/2025 COMP. METAB OLIC PANEL (14) albumin 4.1 g/dL 3.8-4. 8 normal Not Available [facility] ([facility]) [address] [facility] [place], [address], 01/21/2025 08:12:50 01/21/20 25 01/21/2025 COMP. METAB OLIC PANEL (14) globulin, total 1.8 g/dL 1.5-4. 5 Not Available [facility] ([facility]) [address] [facility] [place], [address], 01/21/2025 08:12:50 01/21/20 25 01/21/2025 COMP. METAB OLIC PANEL (14) bilirubin, total 0.4 mg/dL 0.0-1. 2 normal Not Available [facility] ([facility]) [address] [facility] [place], [address], 01/21/2025 08:12:50 01/21/20 25 01/21/2025 COMP. METAB OLIC PANEL (14) alkaline phosphatase 110 IU/L 47-123 normal Not Available [facility] ([facility]) [address] [facility] [place], [address], 01/21/2025 08:12:50 01/21/20 25 01/21/2025 COMP. METAB OLIC PANEL (14) AST (SGOT) 11 IU/L 0-40 normal Not Available [facility] ([facility]) [address] [facility] [place], [address], 01/21/2025 08:12:50 01/21/20 25 01/21/2025 COMP. METAB OLIC PANEL (14) ALT (SGPT) 15 IU/L 0-44 normal Not Available [facility] ([facility]) [address] [facility] [place], [address], 01/21/2025 08:12:50 01/21/20 25 01/21/2025 LEONIE+L IPASE amylase 23 U/L 31-110 below low normal Not Available [facility] ([facility]) [address] [facility] [place], [address], 01/21/2025 08:12:50 01/21/20 25 01/21/2025 LEONIE+L IPASE lipase 42 U/L 13-78 normal Not Available [facility] ([facility]) [address] [place], [address], 01/21/2025 08:12:50 01/21/20 25 01/21/2025 INSUL IN AND C-PEP TIDE, SERUM insulin 24.4 uIU/m L 2.6-24 .9 normal Not Available [facility] ([facility]) [address] [place], [address], 01/21/2025 08:12:50 01/21/20 25 01/21/2025 INSUL IN AND C-PEP TIDE, SERUM C-peptide, serum 9.1 NG/mL 1.1-4. 4 above high normal C-Pep tide refer ence inter anish is for fasti ng patie nts. Not Available [facility] ([facility]) [address] [place], [address], 01/21/2025 08:12:50 11/20/1911/19/2024 right heart jose teriz ation inclu ding measu remen t(s) of oxyge n satur ation and cardi ac outpu t (PROC ) No observ ation record ed. [place] [id number], [place], [address], 11/20/2024 08:56:28 12/02/19 25 12/01/2024 XR, chest , 3 view No observ ation record ed. [facility] [address], [place], [address], 12/02/2024 08:19:30 12/02/19 25 12/01/2024 elect rocar diogr am No observ ation record ed. [place] [id number], [place], [address], 12/02/2024 08:18:41 01/07/20 25 01/06/2025 elect rocar diogr am No observ ation record ed. [address], [place], [address], 01/06/2025 16:17:14 01/08/20 25 01/07/2025 XR, lumbo sacra l spine , 2 or 3 view No observ ation record ed. [place] [id number], [place], [address], 01/12/2025 11:19:20 01/21/2001/20/2025 MRI, lumba r spine , w/o contr ast No observ ation record ed. [place] [id number], [place], [address], 01/22/2025 08:13:54 Result Notes None recorded. Problems Name Problem SNOMED Code Status Onset Date Resolution Date Notes Provider Name and Address Organization Details Recorded Time Type 2 diabetes mellitus 83938663 Active Sandra navarro, [place] - [facility] 5 08:29:25 Hyperlipidemi a 39138608 Active Sandra navarro, [place] - [facility] 5 08:29:50 Gastroesophag eal reflux disease 371607878 Active Sandra navarro, [place] - [facility] 5 08:30:21 Arteriosclero sis of coronary artery bypass graft 953284108 Active Sandra navarro, [place] - [facility] 5 08:31:20 Chronic systolic heart failure 588563623 Active 2024 Darron Nice, [place] [address], [place], [address] , [facility] - [facility] 5 08:53:26 Hyperparathyr oidism 90788271 Active 2024 Darron Nice, [place] [address], [place], [address] , [place] - [facility] 5 16:39:10 Problem Notes None recorded. Procedures Surgical History Date Name Laterality Status Provider Name and Address Organization Details Recorded Time 5 Advance Care Planning completed Sandra Brink [place] - [facility] 10/28/2024 14:00:58 Functional Status Assessed completed Sandra Brink [facility] 10/28/2024 14:00:58 Imaging Results None recorded. Procedure Notes None recorded. Medical Equipment None Reported. Allergies Allergen ID Allergen Name Allergen Category Reaction Reaction Severity Criticality Documentation Date Start Date Code Code System Note Provider Name and Address Organization Details Recorded Time 611565 insulin aspart, human medicatio n other moderate high 06/30/2024 37567 RxNorm state s any insul in at any dose drops his gluco se too much Sandra navarro, [place] - [facility] 5 08:24:14 056803 naproxen medicatio n abdominal pain moderate high [...] Not Available Not Available Not Avarmin labmagaly sacubitri l 24 mg-valsar granado 26 mg [...] Avai lable Vitals Date Recorded Body height Respiratory rate Body mass index (BMI) Body weight Body temperature Heart rate Oxygen saturation Oxygen saturation in Arterial blood by Pulse oximetry Systolic And Diastolic Provider Name and Address Organization Details Last Updated DateTime 5 175.26 cm 18 /min 36 kg/m2 524398. 54 g 97.9 [degF] 86 /min 99 % 99 % 106/66 mm[Hg] Isabel[place] - [facility] 5 15:44:31 Date Recorded Body height Body mass index (BMI) Body weight Provider Name and Address Organization Details Last Updated DateTime 10/28/2024 175.26 cm 36.3 kg/m2 030831.42 g Sandra Brink [place] - [facility] 10/28/2024 14:01:10 Date Recorded Body height Body mass index (BMI) Body weight Heart rate Oxygen saturation Oxygen saturation in Arterial blood by Pulse oximetry Respiratory rate Body temperature Systolic And Diastolic Provider Name and Address Organization Details Last Updated DateTime 5 175.26 cm 36.2 kg/m2 394257. 13 g 82 /min 97 % 97 % 18 /min 98 [degF] 128/74 mm[Hg] Isabelleyoli [place] - [facility] 5 16:01:05 Date Recorded Body height Body mass index (BMI) Body weight Respiratory rate Provider Name and Address Organization Details Last Updated DateTime 01/06/2025 175.26 cm 35.4 kg/m2 124604.17 g 20 /min Sandra Brink [place] - [facility] 01/06/2025 14:06:46 Date Recorded Body height Body mass index (BMI) Body weight Body temperature Oxygen saturation Oxygen saturation in Arterial blood by Pulse oximetry Respiratory rate Pain severity - 0-10 verbal numeric rating [Score] - Reported Heart rate Systolic And Diastolic Provider Name and Address Organization Details Last Updated DateTime 5 175.26 cm 35.6 kg/m2 059742. 46 g 98.1 [degF] 97 % 97 [...] Or The Highest Degree You Have Received? [id number] Information not available 06/30/2024 Have There Been Any Changes To Your Family Or Social Situation? No Information no t available 06/30/2024 What Is The Fluoride Status Of Your Home? Fluoridated Information not available 06/30/2024 Have You Recently Or Are You Planning To Travel To An Area With Zika Virus? 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 No Information not available 06/30/2024 What Was [...] anxious, or unable to sleep at night)? [id number] Information not available 06/30/2024 Do you have difficulty concentrating, remembering or making decisions? No Information no t available 06/30/2024 Family History Nothing Reported. Medical History No medical history recorded. Immunizations Vaccine Type Date Status Note Provider Name and Address Organization Details Recorded Time Tdap 10/27/19 18 completed Not Available [facility] 01/20/2025 10:03:35 Influenza, high-dose, trivalent, PF 01/26/20 19 completed Not Available [facility] 01/20/2025 10:03:35 Influenza, split virus, trivalent, preservative 10/29/19 25 cancelled patient objection Darron Nice, [place] [address], [place], [address], [place] - [facility] 10/28/2024 14:24:18 zoster recombinant 10/29/19 25 cancelled patient objection Darron Gonzaleztiny [facility] [facility] [address], [place], [address], [place] - [facility] 10/28/2024 14:24:18 Past Encounters Encounter ID Performer Location Encounter Start Date Encounter Closed Date Diagnosis/Indication Diagnosis SNOMED-CT Code Diagnosis ICD10 Code Diagnosis IMO Codes Diagnosis Note [id number] Mavisrob Nice APRN [address] [address] 06/30/2024 07:58:40 06/30/2024 09:07:31 Body mass index 30+ - obesity 623349012 Z68.35 070358 35.7 Obesity 771792791 E66.9 Type 2 wilton betes mellitus 19021905 E11.9 Z79.4 14098340 Hyperlipidemia 50044815 E78.49 2354751 Arterioscl erosis of coronary artery bypass graft 012872090 I25.810 25448755 Chronic sy stolic heart failure 205789470 I50.22 771094 Family his tory of malignant neoplasm 645119466 Z80.9 042438 [id number] Darron Nice APRN [address] [address] 07/11/2024 12:51:15 07/11/2024 13:42:43 Arteriosclerosis of coronary artery bypass graft 453834705 I25.810 87496217 cardiology sunday at 1 pm Chronic sy stolic heart failure 195984091 I50.22 574688 if symptoms worsen or do not improve return Type 2 wilton betes mellitus 79776014 E11.9 Z79.4 53948477 increase lantus to 30 units dailytrage ntastop glimepirid e [id number] Darron Nice [address] [address] 07/31/2024 11:14:06 07/31/2024 11:57:50 Edema of lower extremity 206381132 R60.0 27337 pt refuses to take anymore diuretics due to going to bathroom freqif symptoms worsen or no improvemen t return or go to ed Dyspnea 855887280 R06.02 55005 spoke with tiffanie- he will look at echo and call back Weight increased 1221167 00 R63.5 R60.9 9005996375 refuses diuretics and glp1 [id number] Mavisrob [address] [address] 09/25/2024 14:05:07 09/25/2024 15:15:05 Type 2 diabetes mellitus 11087006 E11.9 Z79.4 04312249 continue meds and diet Chronic low back pain 27 5074081 M54.50 G89.29 10341352 voltaren- allergy to naproxen- nausea [id number] [facility] [place] [address] 09/29/2024 15:28:16 09/29/2024 15:51:11 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 0660333534 36367 E11.621 L97.521 83108564 keep area clean and dryclean with soap and waterapply ointmentke ep coveredant ibiotics as orderedif worsen or no improvemen t return [id number] Darron Nice[address] [address] 10/28/2024 13:45:02 10/28/2024 14:22:00 Adult health examination 103023475 Z00.00 Depression screening 171 874603 Z13.31 A depression screening was completed via a standardiz ed screening tool. 5 minutes were spent discussing depression screening results and risk factors. Examinatio n of blood pressure 012268069 Z01.30 labs next visit Diet education 68341490 Z71.3 Counseling 186337025 Z71 .82 Exercise counseling . Patient encouraged to exercise 30 minutes 5 days a week. At [facility] ed risk for falls 433671379 Z91.81 STEADI FAST screening score of __0___. Advance care planning 71 2677006 Z71.89 Obese class II 987090187 1 18603 E66.812 Z68.36 8048165 Body mass index 30+ - obesity 600608848 Z68.36 671298 35.7 Influenza vaccination declined 127222193 Z28.21 7786716838 Hepatitis C screening declined 3022320391 5105 Z53.20 9616281388 Screening for osteoporosis 468152286 Z13.820 786562 Chronic ba ck pain greater than three months duration 4894748226 02 M54.9 G89.29 9399599 voltaren- allergy to naproxen- nauseapt states he has tried everything does not want to do anything cause it cant be fixed, it arthritis and he doesn't want to waste time or money [id number] Darron Nice [address] [address] 11/11/2024 15:35:41 11/11/2024 16:21:21 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 1796605103 22512 E11.621 L97.521 21687886 keep area clean and dryclean with soap and waterapply ointmentke ep coveredant ibiotics as orderedif worsen or no improvemen t return [id number] Darron Nice [address] [address] 01/06/2025 13:54:25 01/06/2025 15:16:17 Chest pain 93173473 R07.9 [id number] spoke with tiffanie, see tiffanie tomorrow at 9 amif pain returns or worsen return Chronic low back pain 27 6742718 M54.50 G89.29 18749671 voltaren- allergy to naproxen- 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 Type 2 wilton betes mellitus 52462011 E11.9 Z79.4 25056930 stop metformini ncrease lantus to 38 unitskeep log return in 2 weeks with log [id number] Darron Nice APRN [facility] [address] [place] [address] 01/20/2025 10:03:17 01/20/2025 11:23:11 Type 2 diabetes mellitus 03098552 E11.9 Z79.4 32680800 stop metformini ncrease lantus to 45 units, continue to increase lantus by 2 units if adv glucose over 200.if cre improved will restart metformin, if not will start trajenta and refer to endo.keep log return in 2 weeks with log Arterioscl erosis of coronary artery bypass graft 958593307 I25.810 92269241 Uncontroll ed type 2 diabetes mellitus 594711701 E11.65 30420112 stop metforminp t refuses glp1,insul in,jardian ce,insulin pump at this timeincrea se lantus to 45 unitskeep log return in 2 weeks with log Right lowe r quadrant pain 586529627 R10.31 098916 Health Concerns Section Related Observation LastModified by Organization Detai ls LastModified Time None Recorded Concern Status LastModified by Organization Details LastModified Time None Recorded Advance Directives Directive N: Payers Insurance Date Sequence Insurance Name Policy Number Policy Lacy Covered Member ID Lacy Member ID Guarantor Name 01/18/2025 1 [employer] - GOLD PLUS (MEDICARE REPLACEMENT/A DVANTAGE - HMO) Ovi Escobar [id number] Ovi Escobar Notes Date Note Type Note Provider Name and Address Organization Details Recorded Time 5 text/html 68 year old male who presents to the office with concerns ofopen sores on bottom of right foot and right great toewith diabetes- pt started a couple days after last visit when he was moving his daughter Darron GonzalezBRIELLE franks [address], [place], [address], [place] - [facility] 09/29/2024 16:03:38 5 text/html [...] pt states doing well- chronic back pain Darron NiceBRIELLE [address], [place], [address], [facility] - [facility] 10/28/2024 14:26:37 5 text/html ROS as noted in the HPI 68 year old male who presents to the office today with concerns ofsore on left 4th toe- no injury noted has been using mupirocin cream with no relief. Mavisbrieyoli GonzalezBRIELLE franks [address], [place], [address], [facility] - [facility] 11/11/2024 16:42:30 5 text/html Diabetes [...] episodes. Darron Nice APRN [address], [place], [address], [facility] - [facility] 01/06/2025 16:50:50 5 [...] insulin,insulin pump or jardiance at this time Mavisrob Nice APRN [address], [place], [address], [place] - [facility] 01/20/2025 11:19:44
--- OUTSIDE RECORDS SUMMARY | 2025-01-23 09:43 | XMS_ITS | Continuity of Care Document ---
Author Organization Joya Alfaro [facility] Address [address] [place] [address] Care Team Providers Care Airport Shuttle Driver Name Role Phone SAPPHIRE JIMÉNEZ Referring Provider [phone] Assessment Encounter Date Assessment Date Assessment LastModified [...] Check List reviewed and printed for patient. [email or web address] Not available 10/28/2024 14:00:57 Plan of Treatment Reminders Order Date Submit Date Provider Last Modified By Organization Details Last Modified Time Details Appointments None record ed. Lab None record ed. Referral None record ed. Procedures None record ed. Surgeries None record ed. Imaging None record ed. Medication Orders None record ed. Patient TargetsNo targets recorded. Patient Instructions Encounter Date Encounter Id Patient Instructions Last Modified By Organization Details Last Modified Time 10/28/2024 [id number] advance directives: care instructions efryman Not available 10/28/2024 14:22:03 learning about depression efryman Not available 10/28/2024 14:22:02 learning about healthy weight efryman Not available 10/28/2024 14:22:03 body mass index: care instructions efryman Not available 10/28/2024 14:22:02 preventing falls : care instructions efryman Not available 10/28/2024 14:22:03 medicare preventive services guide efryman Not available 10/28/2024 14:22:03 Reason for Referral None Reported. Results Created Date Observation Date Name Description Value Unit Range Abnormal Flag Note LastModifiedBy Organization Detail LastModifiedTime 11/20/1911/19/2024 right heart jose teriz ation inclu ding measu remen t(s) of oxyge n satur ation and cardi ac outpu t (PROC ) No observ ation record ed. [facility] [address], [place], [address], 11/20/2024 08:56:28 12/02/1912/01/2024 XR, chest , 3 view No observ ation record ed. [facility] [address], [place], [address], 12/02/2024 08:19:30 12/02/19 25 12/01/2024 elect rocar diogr am No observ ation record ed. [place] [address], [place], [address], 12/02/2024 08:18:41 01/07/2001/06/2025 elect rocar diogr am No observ ation record ed. [address], [place], [address], 01/06/2025 16:17:14 01/08/20 25 01/07/2025 XR, lumbo sacra l spine , 2 or 3 view No observ [facility]ion [facility] [address], [place], [address], 01/12/2025 11:19:20 01/21/20 25 01/20/2025 MRI, lumba r spine , w/o contr ast No observ ation record ed. [place] [address], [place], [address], 01/22/2025 08:13:54 Result Notes None recorded. Problems Name Problem SNOMED Code Status Onset Date Resolution Date Notes Provider Name and Address Organization Details Recorded Time Type 2 diabetes mellitus 73413229 Active Sandra navarro, [place] - [facility] 5 08:29:25 Hyperlipidemi a 27811921 Active Sandra navarro, [place] - [facility] 5 08:29:50 Gastroesophag eal reflux disease 631692165 Active Sandra navarro, [place] - [facility] 5 08:30:21 Arteriosclero sis of coronary artery bypass graft 536808458 Active Sandra navarro, [facility] 5 08:31:20 Chronic systolic heart failure 435547637 Active 2024 Mavisrob tiny, INDUSTRIAL GAS [employer]TER [address], [place], [address] , [facility] 5 08:53:26 Hyperparathyr oidism 44682913 Active 2024 Mavisrob tiny, [employer] [address], [place], [address] , [facility] 5 16:39:10 Problem Notes None recorded. Procedures Surgical History Date Name Laterality Status Provider Name and Address Organization Details Recorded Time 5 Advance Care Planning completed Sandra Brink [facility] 10/28/2024 14:00:58 Functional Status Assessed completed Sandra Brink [facility]/28/[facility] 14:00:58 Imaging Results None recorded. Procedure Notes None recorded. Medical Equipment None Reported. Allergies Allergen ID Allergen Name Allergen Category Reaction Reaction Severity Criticality Documentation Date Start Date Code Code System Note Provider Name and Address Organization Details Recorded Time 086430 insulin aspart, human medicatio n other moderate high 06/30/2024 26278 RxNorm state s any insul in at any dose drops his gluco se too much [place] - [facility] 5 08:24:14 373721 naproxen medicatio n abdominal pain moderate high [...] Available Not Available Not Avai lable methocarb hcaro 750 mg tablet TAKE 1 TABLET BY [...] Updated DateTime 10/28/2024 175.26 cm 36.3 kg/m2 064309.42 g Sandra Cuba [place] - [facility] 10/28/2024 14:01:10 Social History Question Answer Notes LastModified by Organizat ion Details LastModified Time Tobacco Smoking Status Never Smoker Sandra [place] null, [place] - [facility] 06/30/2024 08:32:09 Do [...] Or The Highest Degree You Have Received? [id number] Information not available 06/30/2024 Have There Been Any Changes To Your Family Or Social Situation? No Information no t available 06/30/2024 What Is The Fluoride Status Of Your Home? Fluoridated Information not available 06/30/2024 Have You Recently Or Are You Planning To Travel To An Area With Zika Virus? No Information not available 06/30/2024 Do You Have A Medical Power Of Winding Department Supervisor? No Information not available 06/30/2024 What [...] Functional Status Question Answer Note LastModified by Creative Citizenat ion Details LastModified Time Do you use [...] anxious, or unable to sleep at night)? [id number] Information not available 06/30/2024 Do you have difficulty concentrating, remembering or making decisions? No Information no t available 06/30/2024 Family History Nothing Reported. Medical History No medical history recorded. Immunizations Vaccine Type Date Status Note Provider Name and Address Organization Details Recorded Time Tdap 10/27/19 18 completed Not Available [facility] 01/20/2025 10:03:35 Influenza, high-dose, trivalent, PF 01/26/20 19 completed Not Available [facility] 01/20/2025 10:03:35 Influenza, split virus, trivalent, preservative 10/29/19 25 cancelled patient objection Darron Nice APRN [address], [address], [place] - [facility] 10/28/2024 14:24:18 zoster recombinant 10/29/19 25 cancelled patient objection Darron Nice APRN [address], [place], [address], [facility] - [facility] 10/28/2024 14:24:18 Past Encounters Encounter ID Performer Location Encounter Start Date Encounter Closed Date Diagnosis/Indication Diagnosis SNOMED-CT Code Diagnosis ICD10 Code Diagnosis IMO Codes Diagnosis Note [id number] Darron Nice APRN [address] [address] 09/29/2024 15:28:16 09/29/2024 15:51:11 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 5 minutes were spent discussing depression screening results and risk factors. Examinatio n of blood pressure 904433569 Z01.30 labs next visit Diet education 49406614 Z71.3 Counseling 409571906 Z71 .82 Exercise counseling . Patient encouraged to exercise 30 minutes 5 days a week. At [facility] ed risk for falls 267463361 Z91.81 STEADI FAST screening score of __0___. Advance care planning 71 5642936 Z71.89 Obese class II 693898428 1 54259 E66.812 Z68.36 6811395 Body mass index 30+ - obesity 059315922 Z68.36 498084 35.7 Influenza vaccination declined 855461873 Z28.21 4909181874 Hepatitis C screening declined 1755505317 5105 Z53.20 2244187939 Screening for osteoporosis 540514311 Z13.820 396701 Chronic ba ck pain greater than three months duration 3319401346 02 M54.9 G89.29 3820777 voltaren- allergy to naproxen- nauseapt states he has tried everything does not want to do anything cause it cant be fixed, it arthritis and he doesn't want to waste time or money Health Concerns Section Related Observation LastModified by Organization Detai ls LastModified Time None Recorded Concern Status LastModified by Organization Details LastModified Time None Recorded Payers Encounter Date Sequence Insurance Name Policy Number Policy Lacy Covered Member ID Lacy Member ID Guarantor Name 10/28/2024 1 [employer] - GOLD PLUS (MEDICARE REPLACEMENT/A DVANTAGE - HMO) Ovi Escobar [id number] Ovi Escobar Notes Date Note Type Note Provider Name and Address Organization Details Recorded Time 5 text/html Medicare Annual Wellness VisitReported by [...] states doing well- chronic back pain Darron Nice APRN [address], [place], [address], [place] - [facility] 10/28/2024 14:26:37
--- OUTSIDE RECORDS SUMMARY | 2025-01-23 09:43 | XMS_ITS | Continuity of Care Document ---
Author Organization [facility] Address [address] [place] [address] Care Team Providers Care Senior Quantity Surveyor Name Role Phone SAPPHIRE JIMÉNEZ Referring Provider [phone] Assessment No assessment recorded. Plan of Treatment Reminders Order Date Submit Date Provider Last Modified By Organization Details Last Modified Time Details Appointments None recorded. Lab None recorded. Referral armature straightener referral 2024 025 RAJESH Gallardo DPM, [address] [place], [address], 19:05:51 Procedures None recorded. Surgeries None recorded. Imaging None recorded. Medication Orders cephalexin 500 mg capsule 2024 025 [facility], [address] [place], [address], 5 05:02:12 Patient TargetsNo targets recorded. Patient InstructionsNo instructions recorded. Reason for Referral Pet Ambassador Referral for Ulce r of toe due [...] (PROC ) No observ ation record ed. [facility] [address], [place], [address], 11/20/2024 08:56:28 12/02/19 25 12/01/2024 XR, chest , 3 view No observ ation record ed. [facility] [address], [place], [address], 12/02/2024 08:19:30 12/02/19 25 12/01/2024 elect rocar diogr am No observ ation record ed. [facility] [address], [place], [address], 12/02/2024 08:18:41 01/07/20 25 01/06/2025 elect rocar diogr am No observ ation record ed. [address], [place], [address], 01/06/2025 16:17:14 01/08/20 25 01/07/2025 XR, lumbo sacra l spine , 2 or 3 view No observ ation record ed. [facility] [address], [place], [address], 01/12/2025 11:19:20 01/21/20 25 01/20/2025 MRI, lumba r spine , w/o contr ast No observ ation record ed. [facility] [address], [place], [address], 01/22/2025 08:13:54 Result Notes None recorded. Problems Name Problem SNOMED Code Status Onset Date Resolution Date Notes Provider Name and Address Organization Details Recorded Time Type 2 diabetes mellitus 68040585 Active Sandra rBink null, [place] - [facility] 5 08:29:25 Hyperlipidemi a 34286905 Active Sandra Brink null, [place] - [facility] 5 08:29:50 Gastroesophag eal reflux disease 961834741 Active Sandra Brink null, [place] - [facility] 5 08:30:21 Arteriosclero sis of coronary artery bypass graft 648765156 Active [place] - [facility] 5 08:31:20 Chronic systolic heart failure 917746365 Active 2024 Darron Nice, TAPPER [employer] [address], [place], [address] , [facility] - [facility] 5 08:53:26 Hyperparathyr oidism 63367973 Active 2024 Darron Nice, [employer]PER [employer] [address], [place], [address] , [facility] - [facility] 5 16:39:10 Problem Notes None recorded. Procedures Surgical History Date Name Laterality Status Provider Name and Address Organization Details Recorded Time 5 Advance Care Planning completed Sandra Brink [facility] 10/28/2024 14:00:58 Functional Status Assessed completed Sandra Brink [facility] 10/28/[facility]24 14:00:58 Imaging Results None recorded. Procedure Notes None recorded. Medical Equipment None Reported. Allergies Allergen ID Allergen Name Allergen Category Reaction Reaction Severity Criticality Documentation Date Start Date Code Code System Note Provider Name and Address Organization Details Recorded Time 891842 insulin aspart, human medicatio n other moderate high 06/30/2024 39265 RxNorm state s any insul in at any dose drops his gluco se too much [place] [facility] 5 08:24:14 043088 naproxen medicatio n abdominal pain moderate high 06/30/2024 7258 RxNorm [place] [facility] 5 08:24:28 Medications Name Sig Start Date [...] Updated DateTime 5 175.26 cm 36.2 kg/m2 514757. 13 g 82 /min 97 % 97 % 18 /min 98 [degF] 128/74 mm[Hg] Isabelle Mccord [place] - [facility] 16:01:05 Social History Question Answer Notes LastModified by Organizat ion Details LastModified Time Tobacco Smoking Status Never Smoker Sandra navarro, [place] - [facility] 06/30/2024 08:32:09 Do You [...] Or The Highest Degree You Have Received? [id number] Information not available 06/30/2024 Have There Been Any Changes To Your Family Or Social Situation? No Information no t available 06/30/2024 What Is The Fluoride Status Of Your Home? Fluoridated Information not available 06/30/2024 Have You Recently Or Are You Planning To Travel To An Area With Zika Virus? No Information not available 06/30/2024 Do You Have A Medical Power Of Generation Engineer? No Information not available 06/30/2024 What [...] anxious, or unable to sleep at night)? [id number] Information not available 06/30/2024 Do you have difficulty concentrating, remembering or making decisions? No Information no t available 06/30/2024 Family History Nothing Reported. Medical History No medical history recorded. Immunizations Vaccine Type Date Status Note Provider Name and Address Organization Details Recorded Time Tdap 10/27/19 18 completed Not Available [facility] 01/20/2025 10:03:35 Influenza, high-dose, trivalent, PF 01/26/20 19 completed Not Available [facility] 01/20/2025 10:03:35 Influenza, split virus, trivalent, preservative 10/29/19 25 cancelled patient objection Darron Nice APRN [address], [place], [address], [place] - [facility] 10/28/2024 14:24:18 zoster recombinant 10/29/19 25 cancelled patient objection Darron Nice APRN [address], [place], [address], [place] - [facility] 10/28/2024 14:24:18 Past Encounters Encounter ID Performer Location Encounter Start Date Encounter Closed Date Diagnosis/Indication Diagnosis SNOMED-CT Code Diagnosis ICD10 Code Diagnosis IMO Codes Diagnosis Note [id number] Darron Nice APRN [address] [address] 10/28/2024 13:45:02 10/28/2024 14:22:00 Adult health examination 193734423 Z00.00 Depression screening 171 315120 Z13.31 A depression screening was completed via a standardiz ed screening tool. 5 minutes were spent discussing depression screening results and risk factors. Examinatio n of blood pressure 003002476 Z01.30 labs next visit Diet education 02374109 Z71.3 Counseling 111271275 Z71 .82 Exercise counseling . Patient encouraged to exercise 30 minutes 5 days a week. At [facility] ed risk for falls 883425376 Z91.81 STEADI FAST screening score of __0___. Advance care planning 71 7402838 Z71.89 Obese class II 792783645 1 41507 E66.812 Z68.36 0254414 Body mass index 30+ - obesity 154203543 Z68.36 174342 35.7 Influenza vaccination declined 618432027 Z28.21 8423578117 Hepatitis C screening declined 3983877446 5105 Z53.20 7632001057 Screening for osteoporosis 095120489 Z13.820 290037 Chronic ba ck pain greater than three months duration 6488833082 02 M54.9 G89.29 7229846 voltaren- allergy to naproxen- nauseapt states he has tried everything does not want to do anything cause it cant be fixed, it arthritis and he doesn't want to waste time or money [id number] Darron Nice APRN [address] [address] 11/11/2024 15:35:41 11/11/2024 16:21:21 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 8173738227 76903 E11.621 L97.521 55176123 keep area clean and dryclean with soap and waterapply ointmentke ep coveredant ibiotics as orderedif worsen or no improvemen t return Health Concerns Section Related Observation LastModified by Organization Detai ls LastModified Time None Recorded Concern Status LastModified by Organization Details LastModified Time None Recorded Payers Encounter Date Sequence Insurance Name Policy Number Policy Lacy Covered Member ID Lacy Member ID Guarantor Name 11/11/2024 1 [employer] - GOLD PLUS (MEDICARE REPLACEMENT/A DVANTAGE - HMO) Ovi Escobar [id number] Ovi Escobar Notes Date Note Type Note Provider Name and Address Organization Details Recorded Time 11/11/2024 text/html ROS as noted in the HPI 68 year old male who presents to the office today with concerns ofsore on left 4th toe- no injury noted has been using mupirocin cream with no relief. Darron Nice APRN [address], [place], [address], [place] - [facility] 11/11/2024 16:42:30
--- OUTSIDE RECORDS SUMMARY | 2025-01-23 09:43 | XMS_ITS | Continuity of Care Document ---
Author Organization [facility] Address [address] [place] [address] Care Team Providers Care Pool Technician Name Role Phone SAPPHIRE JIMÉNEZ Referring Provider [phone] Assessment No assessment recorded. Plan of Treatment Reminders Order Date Submit Date Provider Last Modified By Organization Details Last Modified Time Details Appointments None recorded. Lab None recorded. Referral None recorded. Procedures None recorded. Surgeries None recorded. Imaging XR, lumbosacral spine, 2 or 3 view 2024 [facility] (X-[facility]), [address] [place] [address] [address], [place], [address], 10:16:14 electrocard iogram 2024 025 [facility], [address] [place] [address], [address], 16:45:44 Medication Orders None recorded. Patient TargetsNo targets recorded. Patient InstructionsNo instructions recorded. Reason for Referral None Reported. Results Created Date Observation Date Name Description Value Unit Range Abnormal Flag Note LastModifiedBy Organization Detail LastModifiedTime 01/07/2001/06/2025 elect ebenezer rodriguez am No observ ation record ed. [address], [address], 01/06/2025 16:17:14 01/08/20 25 01/07/2025 XR, lumbo sacra l spine , 2 or 3 view No observ ation record ed. [facility] [address], [place], [address], 01/12/2025 11:19:20 01/21/20 25 01/20/2025 MRI, lumba r spine , w/o contr ast No observ ation record ed. [facility] [address], [place], [address], 01/22/2025 08:13:54 Result Notes None recorded. Problems Name Problem SNOMED Code Status Onset Date Resolution Date Notes Provider Name and Address Organization Details Recorded Time Type 2 diabetes mellitus 76176250 Active Sandra Brink ramon, [facility] 5 08:29:25 Hyperlipidemi a 80401817 Active Sandra Brink [place], [place] - [facility] 5 08:29:50 Gastroesophag eal reflux disease 068460818 Active Sandra Cuba ramon, [facility] 5 08:30:21 Arteriosclero sis of coronary artery bypass graft 338140008 Active Sandra Bowerler ramon, [facility] 5 08:31:20 Chronic systolic heart failure 696149939 Active 2024 Darron Nice APRN [address], [place], [address] , [facility] - [facility] 5 08:53:26 Hyperparathyr oidism 15690973 Active 2024 Darron Nice APRN [address], [place], [address] , [facility] - [facility] 5 16:39:10 Problem Notes None recorded. Procedures Surgical History Date Name Laterality Status Provider Name and Address Organization Details Recorded Time 5 Advance Care Planning completed Sandra Cuba [facility] 10/28/2024 14:00:58 Functional Status Assessed completed Sandraharitha Brink [facility] 10/28/2024 14:00:58 Imaging Results None recorded. Procedure Notes None recorded. Medical Equipment None Reported. Allergies Allergen ID Allergen Name Allergen Category Reaction Reaction Severity Criticality Documentation Date Start Date Code Code System Note Provider Name and Address Organization Details Recorded Time 464045 insulin aspart, human medicatio n other moderate high 06/30/2024 99039 RxNorm state s any insul in at any dose drops his gluco se too much Sandra navarro, [place] - [facility] 5 08:24:14 733968 naproxen medicatio n abdominal pain moderate high [...] 2nd Gen Pen Needle 32 gauge x 5/32 USE DIRECTED WITH INSULIN active Not Available [...] Updated DateTime 01/06/2025 175.26 cm 35.4 kg/m2 725125.17 g 20 /min Sandra Brink [place] - [...] Or The Highest Degree You Have Received? [id number] Information not available 06/30/2024 Have There Been Any Changes To Your Family Or Social Situation? No Information no t available 06/30/2024 What Is The Fluoride Status Of Your Home? Fluoridated Information not available 06/30/2024 Have You Recently Or Are You Planning To Travel To An Area With Zika Virus? No Information not available 06/30/2024 Do You Have A Medical Power Of Punch Out Crew Member? No Information not available 06/30/2024 What Was [...] anxious, or unable to sleep at night)? [id number] Information not available 06/30/2024 Do you have difficulty concentrating, remembering or making decisions? No Information no t available 06/30/2024 Family History Nothing Reported. Medical History No medical history recorded. Immunizations Vaccine Type Date Status Note Provider Name and Address Organization Details Recorded Time Tdap 10/27/19 18 completed Not Available [facility] 01/20/2025 10:03:35 Influenza, high-dose, trivalent, PF 01/26/20 19 completed Not Available [facility] 01/20/2025 10:03:35 Influenza, split virus, trivalent, preservative 10/29/19 25 cancelled patient objection Darron Nice APRN [address], [place], [address], [place] - [facility] 10/28/2024 14:24:18 zoster recombinant 10/29/19 25 cancelled patient objection Darron Nice APRN [address], [place], [address], [place] - [facility] 10/28/2024 14:24:18 Past Encounters Encounter ID Performer Location Encounter Start Date Encounter Closed Date Diagnosis/Indication Diagnosis SNOMED-CT Code Diagnosis ICD10 Code Diagnosis IMO Codes Diagnosis Note [id number] Darron Nice APRN [address] [address] 01/06/2025 13:54:25 01/06/2025 15:16:17 Chest pain 65449168 R07.9 [id number] spoke with tiffanie, see tiffanie tomorrow at 9 amif pain returns or worsen return Chronic low back pain 27 1673541 M54.50 G89.29 62568589 voltaren- allergy to naproxen- 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 Darron Nice, VALVE MECHANIC [address], [place], [address], [place] - [facility] 01/06/2025 16:50:50
--- OUTSIDE RECORDS SUMMARY | 2025-01-23 09:43 | XMS_ITS | Clinical Summary ---
Author Organization [facility] Address [address] [place], [place] [address] Care Team Providers Care Instrument Calibrator Name Role Phone Carlos A Gross DO Primary Care Provider [phone] Allergies Active Allergy Reactions Criticality Noted Date [...] Years) 10/27/202710/10 Lipid Screening Discontinued 11/01/2023 Insurance [facility] MEDICARE Care Teams Instrument Calibrator Relationship Specialty Start Date End Date Carlos A Gross DO [address] [place] [address] PCP - General Family Medicine 02/22/24
== END 2025-01-23 23:59 | disposition home or self-care (01) ==
LOC: RAD 09:28
PROVIDERS: PCP Nurse Practitioner Family; Visit Provider Nurse Practitioner Family
DX: K80.20 Calculus of gallbladder without cholecystitis without obstruction (principal); K76.0 Fatty (change of) liver, not elsewhere classified; R10.31 Right lower quadrant pain
CPT/HCPCS: 76700

== ENCOUNTER 2025-02-14 14:37 | Emergency (ER) | payer MEDICARE, SELFPAY ==
--- OUTSIDE RECORDS SUMMARY | 2014-12-23 17:15 | XMS_ITS | Encounter Summary ---
Author Organization [place] [address] Care Team Providers Care Intern Retail Name Role Phone Edgar Dodson MD Primary Care Provider [phone] Elba Tapia RN Unavailable Unavail able Encounter Details Date Type Department Care Team (Latest Contact Info) Description 12/23/2014 6:15 PM EDT Hospital Encounter [facility] [address] [facility] [place] [address] Left without seen Social History Tobacco Use Types Packs/Day Years Used Date Smoking Tobacco: Never Smokeless Tobacco: Never Alcohol Use Standard Drinks/Week Comments No 0 (1 standard drink = 0.6 oz pur e alcohol) NO [facility] Utilities Answer Date Recorded In the past 12 months has [employer] electric, gas, oil, or water company threatened to shut off services in your home? No 01/01/2024 Overall Financial Resource Strain (CARDIA) Answe r Date Recorded How hard is it for you to pa y for the very basics like food, housing, medical care, and heating? Not very hard 07/24/2024 PHQ-2 Answer Date Recorded PHQ-2 Total Score 0 01/01/2024 [facility] [place] of Occupat ional Health - Occupational Stress [...] things needed for daily living? No 07/24/2024 [facility] IP Transportation Answer D ate Recorded [...] as of this encounter Functional Status * Question Answer Date of Assessment Author Little interest or pleasure in doing things 0 01/01/2024 1:34 PM EDT Blaine Sauceda RN Feeling down, depressed, or hopeless 0 01/01/2024 1:34 PM EDT Blaine Sauceda RN PHQ-2 Total Score 0 01/01/2024 1:34 PM EDT Blaine Sauceda RN * PHQ-9 Total Score Answer Date of Assessment Author 0 01/01/2024 1:34 PM EDT Blaine Sauceda RN documented as of this encounter Mental Status * Question Answer Entry Date Author Because of a physical, menta l or emotional condition, does this person have difficulty doing errands alone such as visiting a doctor's office or shopping? No 02/20/2023 5:25 PM EST Dianne Dai RMA Because of a physical, menta l [...] an ideal body weight General No Elza MckeonnJORGE <Enter Goal> General No Allison Angel RN HEMOGLOBIN A1C < 7.0 Result Component 9.6( 2:26 PM EDT) No Carlee Rose CMA documented as of this encounter Visit Diagnoses Not on filedocumented in this encounter Additional Health Concerns Infection Onset Date Last Indicated Resolved Time R/O C-Diff 05/20/2021 05/20/2021 05/20/2021 3:39 PM EST documented as of this encounter Care Teams Intern Retail Relationship Specialty Start Date End Date Edgar Dodson MD [address] [place] [address] PCP - General 04/08/09 07/05/15 Elba Tapia, RN Health Advocate 10/21/13 5 documented as of this encounter
--- OUTSIDE RECORDS SUMMARY | 2018-05-20 10:35 | XMS_ITS | Encounter Summary ---
Author Organization [place] [address] Care Team Providers Care Part Time Flexible Clerk Name Role Phone Omi Daly DO Primary Care Provider [phone] Encounter Details Date Type Department Care Team (Latest Contact Info) Description 05/20/2018 11:35 AM EDT Hospital Encounter [facility] [address] [place] [address] Left without seen Social History Tobacco Use Types Packs/Day Years Used Date Smoking Tobacco: Never Smokeless Tobacco: Never Alcohol Use Standard Drinks/Week Comments No 0 (1 standard drink = 0.6 oz pur e alcohol) NO [facility] Utilities Answer Date Recorded In the past 12 months has e electric, gas, oil, or water company threatened to shut off services in your home? No 01/01/2024 Overall Financial Resource Strain (CARDIA) Answe r Date Recorded How hard is it for you to pa y for the very basics like food, housing, medical care, and heating? Not very hard 07/24/2024 PHQ-2 Answer Date Recorded PHQ-2 Total Score 0 01/01/2024 [facility] [place] of Occupat ional Health - Occupational Stress [...] daily living? No 07/24/2024 [facility] IP Transportation Answer D ate Recorded In [...] * Question Answer Date of Assessment Author Is [...] 5:25 PM Dianne Maddox RM A * Is the person deaf or does he/she have serious difficulty hearing? Answer Date of Assessment Author No 04/29/2018 3:37 PM Michelle Matias RMA * Is the person blind or does he/she have serious difficulty seeing even when wearing glasses? Answer Date of Assessment Author No 04/29/2018 3:37 PM Michelle Matias RMA * Does this person have serious difficulty walking or climbing stairs? Answer Date of Assessment Author No 04/29/2018 3:37 PM Michelle Matias RMA * Does this person have difficulty dressing or bathing? Answer Date of Assessment Author No 04/29/2018 3:37 PM Michelle Matias RMA * Because of a physical, mental or emotional condition, does this person have difficulty doing errands alone such as visiting a doctor's office or shopping? Answer Date of Assessment Author No 04/29/2018 3:37 PM Michelle Matias RMA * Question Answer Date of Assessment Author Little interest or pleasure in doing things 0 01/01/2024 1:34 PM Blaine Scott RN Feeling down, depressed, or hopeless 0 01/01/2024 1:34 PM Blaine Scott RN PHQ-2 Total Score 0 01/01/2024 1:34 PM Blaine Scott RN * PHQ-9 Total Score Answer Date of Assessment Author 0 01/01/2024 1:34 PM Blaine Scott RN documented as of this encounter Mental [...] No 02/20/2023 5:25 PM Dianne Maddox RMA * Because of a physical, mental or emotional condition, does this person have serious difficulty concentrating, remembering or making decisions? Answer Entry Date Author No 04/29/2018 3:37 PM Michelle Matias RMA documented in this encounter Plan of Treatment Not on file documented as of this encounter Goals Goal Patient Goal Type Associated Problems Recent Progress Patient-Stated? Author Blood Pressure < 140/90 Blood Pressure 150/80(2024 10:40 AM EDT) No Carlee Rose CMA BMI (Calculated) < 30 General 36.6(07/19/19 10:40 AM EDT) Carlee Westbrook CMA Maintain a healthy diet, exercise regularly [...] documented as of this encounter Care Teams Part Time Flexible Clerk Relationship Specialty Start Date End Date Omi Daly DO [address] [place] [address] PCP - General Family Medicine 07/06/15 06/14/20 documented as of this encounter
--- OUTSIDE RECORDS SUMMARY | 2023-02-26 08:00 | XMS_ITS | Continuity of Care Document ---
Author Organization [facility] Address [address] [place] [address] Phone Care Team Providers Care Photostat Operator Name Role Phone Brett Howard MD Unavailable Unavailable Medications Medication Instructions Dosage Effective Dates (start - stop) Status Comments Medrol (Antoni) 4 mg tablets in a dose pack take by Oral route Not Available - Active Procedures Procedure Date Office/outpatient visit,[facility] 2022 X-ray exam lwr spine, min 4 views X-ray exam of knee, 3 views Advance Directives Directive Yes / No Effective Date File Name No Information Encounters Encounter Description Practice Location Reason(s) For Visit Diagnoses Date Provider Providers Copied on Encounter [facility] [address], [facility], tel:[phone] [address] [place] [address] Bilateral primary osteoarthritis of knee [address] [place], [place], [id number] , [place]. tel:[phone] Referring Provider: Carlos A Gross, [address] [place] [address], [address] . tel:[phone] [facility] [address], [facility], tel:[phone] [address] [place] [address] No Information [address] [place], [place], [id number] , [place]. tel:[phone] Referring Provider: Carlos A Gross, [address] [place] [address], [address] . tel:[phone] [facility], [facility] [place], [address], tel:[phone] [facility] Bilateral primary osteoarthritis of knee [address], [place], [place], [id number] , . tel:[phone] Referring Provider: Carlos A Gross, [address] [place] [address], [address] . tel:[phone] Office/outpa tient visit,[facility] [place] [address] [place], [address], tel:[phone] [facility] Other intervertebral disc degeneration, lumbar regionBilateral primary osteoarthritis of kneeConnective tissue and disc stenosis of intervertebral foramina of lumbar region [address], [place], [place], [id number] , . tel:[phone] Referring Provider: Carlos A Gross, [address] [place] [address], [address] . tel:[phone] Family History Family Member Type Diagnosis Age At Onset No Information Payers Payer name Insurance type Covered alliance party ID Authoriza tion(s) [employer] Medicare - [id number] Social History Type Description Quantity Date Captured Comments Sex Male Smoking Status No Information Chief Complaint And Reason For Visit No Information Reason For Referral Reason For Referral No Information History Of Present Illness Encounter Date Complaint History Of Prese nt Illness No Information Functional Status Date Functional Assessmen t No Information Instructions Date Instruction Additional Infor mation No Information Assessments Type Assessment Date No Information Patient Care Teams Name Effective Dates (start - stop) Status Members No Information
[2025-02-14] VITALS (7 sets, daily range): BP systolic 102–116; BP diastolic 52–80; PULSE 45–74; RESP 13–16; TEMP 36.6–36.7; O2SAT 94–97; BMI 34.9
--- OUTSIDE RECORDS SUMMARY | 2025-02-14 14:45 | XMS_ITS | Encounter Summary ---
Author Organization [place] [address] Care Team Providers Care Fire Extinguisher Repairer Name Role Phone Renato Rey DO, Viral Primary Care Provider [phone] Ariana Munguia MD Unavailable [phone] Reason for Visit * Reason Comments Medication Refill Encounter Details Date Type Department Care Team (Late st Contact Info) Description 12/28/2024 Refill [facility] [address] [place] [address] Carlos A Gross DO [address] [place] [address] Medication Refill Social History Tobacco Use Types Packs/Day Years Used Date Smoking Tobacco: Never Smokeless Tobacco: Never Alcohol Use Standard Drinks/Week Comments No 0 (1 standard drink = 0.6 oz pur e alcohol) NO [facility] Utilities Answer Date Recorded In the past 12 months has [employer], gas, oil, or water [employer] threatened to shut off services in your home? No 01/01/2024 Overall Financial Resource Strain (CARDIA) Answe r Date Recorded How hard is it for you to pa y for the very basics like food, housing, medical care, and heating? Not very hard 07/24/2024 PHQ-2 Answer Date Recorded PHQ-2 Total Score 0 01/01/2024 [facility] of Occupat ional Health - Occupational Stress [...] things needed for daily living? No 07/24/2024 [facility] IP Transportation Answer D ate [...] documented as of this encounter Care Teams Fire Extinguisher Repairer Relationship Specialty Start Date End Date Carlos A Gross DO [address] [place] [address] PCP - General Family Medicine 06/15/20 Ariana Munguia MD [address] [place] [address] Internal Medicine-Cardiovascular Disease 04/11/22 documented as of this encounter
--- OUTSIDE RECORDS SUMMARY | 2025-02-14 14:45 | XMS_ITS | Continuity of Care Document ---
Author Organization [facility] Address [address] [place] [address] Care Team Providers Care Welder Tech Name Role Phone SAPPHIRE JIMÉNEZ Referring Provider [phone] Assessment No assessment recorded. Plan of Treatment Reminders Order Date Submit Date Provider Last Modified By Organization Details Last Modified Time Details Appointments None recorded. Lab CMP, serum or plasma 2024 025 BR[facility], [address], [place] [address], [place], [address], 5 08:12:50 C-peptide, serum 2024 025 [facility], [address], [place], [place], [address], 5 08:12:50 amylase + lipase, serum 2024 025 [facility], [address], [place] [address], [place], [address], 5 08:12:50 Referral None recorded. Procedures None recorded. Surgeries None recorded. Imaging US, duplex, abdomen, complete 2024 025 [facility] ([facility]), [address], [place], [address], 5 13:51:26 Medication Orders None recorded. Patient TargetsNo targets recorded. Patient InstructionsNo instructions recorded. Reason for Referral None Reported. Results Created Date Observation Date Name Description Value Unit Range Abnormal Flag Note LastModifiedBy Organization Detail LastModifiedTime 01/21/20 25 01/21/2025 COMP. METAB OLIC PANEL (14) glucose 486 mg/dL 70-99 above high normal Not Available [facility] ([facility]) [address] [facility] [place], [address], 01/21/2025 08:12:50 01/21/20 25 01/21/2025 COMP. METAB OLIC PANEL (14) BUN 30 mg/dL 8-27 above high normal Not Available [facility] ([facility]) [address] [facility] [place], [address], 01/21/2025 08:12:50 01/21/20 25 01/21/2025 COMP. METAB OLIC PANEL (14) creatinine 1.79 mg/dL 0.76-1 .27 above high normal Not Available [facility] ([facility]) [address] [facility] [place], [address], 01/21/2025 08:12:50 01/21/20 25 01/21/2025 COMP. METAB OLIC PANEL (14) eGFR 40 mL/mi n/1.7 3 >59 below low normal Not Available [facility] ([facility]) [address] [place], [address], 01/21/2025 08:12:50 01/21/20 25 01/21/2025 COMP. METAB OLIC PANEL (14) BUN/creatini ne ratio 17 10-24 normal Not Available [facility] ([facility]) [address] [place], [address], 01/21/2025 08:12:50 01/21/20 25 01/21/2025 COMP. METAB OLIC PANEL (14) sodium 131 mmol/ L 134-14 4 below low normal Not Available [facility] ([facility]) [address] [place], [address], 01/21/2025 08:12:50 01/21/20 25 01/21/2025 COMP. METAB OLIC PANEL (14) potassium 5.5 mmol/ L 3.5-5. 2 above high normal Not Available [facility] ([facility]) [address] [facility] [place], [address], 01/21/2025 08:12:50 01/21/20 25 01/21/2025 COMP. METAB OLIC PANEL (14) chloride 97 mmol/ L 96-106 normal Not Available [facility] ([facility]) [address] [facility] [place], [address], 01/21/2025 08:12:50 01/21/20 25 01/21/2025 COMP. METAB OLIC PANEL (14) carbon dioxide, total 19 mmol/ L 20-29 below low normal Not Available [facility] ([facility]) [address] [place] [place], [address], 01/21/2025 08:12:50 01/21/20 25 01/21/2025 COMP. METAB OLIC PANEL (14) calcium 9.6 mg/dL 8.6-10 .2 normal Not Available [facility] ([facility]) [address] [facility] [place], [address], 01/21/2025 08:12:50 01/21/20 25 01/21/2025 COMP. METAB OLIC PANEL (14) protein, total 5.9 g/dL 6.0-8. 5 below low normal Not Available [facility] ([facility]) [address] [facility] [place], [address], 01/21/2025 08:12:50 01/21/20 25 01/21/2025 COMP. METAB OLIC PANEL (14) albumin 4.1 g/dL 3.8-4. 8 normal Not Available [facility] ([facility]) [address] [facility] [place], [address], 01/21/2025 08:12:50 01/21/20 25 01/21/2025 COMP. METAB OLIC PANEL (14) globulin, total 1.8 g/dL 1.5-4. 5 Not Available [facility] ([facility]) [address] [facility] [place], [address], 01/21/2025 08:12:50 01/21/20 25 01/21/2025 COMP. METAB OLIC PANEL (14) bilirubin, total 0.4 mg/dL 0.0-1. 2 normal Not Available [facility] ([facility]) [address] [facility] [place], [address], 01/21/2025 08:12:50 01/21/20 25 01/21/2025 COMP. METAB OLIC PANEL (14) alkaline phosphatase 110 IU/L 47-123 normal Not Available [facility] ([facility]) [address] [facility] [place], [address], 01/21/2025 08:12:50 01/21/20 25 01/21/2025 COMP. METAB OLIC PANEL (14) AST (SGOT) 11 IU/L 0-40 normal Not Available [facility] ([facility]) [address] [facility] [place], [address], 01/21/2025 08:12:50 01/21/20 25 01/21/2025 COMP. METAB OLIC PANEL (14) ALT (SGPT) 15 IU/L 0-44 normal Not Available [facility] ([facility]) [address] [facility] [place], [address], 01/21/2025 08:12:50 01/21/20 25 01/21/2025 LEONIE+L IPASE amylase 23 U/L 31-110 below low normal Not Available [facility] ([facility]) [address] [facility] [place], [address], 01/21/2025 08:12:50 01/21/20 25 01/21/2025 LEONIE+L IPASE lipase 42 U/L 13-78 normal Not Available [facility] ([facility]) [address] [facility], [place], [address], 01/21/2025 08:12:50 01/21/20 25 01/21/2025 INSUL IN AND C-PEP TIDE, SERUM insulin 24.4 uIU/m L 2.6-24 .9 normal Not Available [facility] ([facility]) [address] [facility], [place], [address], 01/21/2025 08:12:50 01/21/20 25 01/21/2025 INSUL IN AND C-PEP TIDE, SERUM C-peptide, serum 9.1 NG/mL 1.1-4. 4 above high normal C-Pep tide refer ence inter anihs is for fasti ng patie nts. Not Available [facility] ([facility]) [address] [facility], [place], [address], 01/21/2025 08:12:50 01/07/20 25 01/06/2025 elect ebenezer rodriguez am No observ ation record ed. [address], [place], [address], 01/06/2025 16:17:14 01/08/20 25 01/07/2025 XR, lumbo sacra l spine , 2 or 3 view No observ ation [facility] [address], [place], [address], 01/12/2025 11:19:20 01/21/20 25 01/20/2025 MRI, lumba r spine , w/o contr ast No observ ation record ed. [facility] [address], [place], [address], 01/22/2025 08:13:54 01/24/20 25 01/23/2025 US, duple x, abdom en, compl ete No observ ation record ed. [facility] [address], [place], [address], 01/26/2025 14:44:54 Result Notes None recorded. Problems Name Problem SNOMED Code Status Onset Date Resolution Date Notes Provider Name and Address Organization Details Recorded Time Type 2 diabetes mellitus 19200253 Active Sandra navarro, [place] - [facility] 5 08:29:25 Hyperlipidemi a 76524224 Active Sandra navarro, [place] - [facility] 5 08:29:50 Gastroesophag eal reflux disease 089129464 Active Sandra navarro, [place] - [facility] 5 08:30:21 Arteriosclero sis of coronary artery bypass graft 276439251 Active Sandra navarro, [place] - [facility] 5 08:31:20 Chronic systolic heart failure 839796788 Active 2024 Mavisbrieyoli Gonzaleztiny, [employer] [address], [place], [address] , [place] - [facility] 5 08:53:26 Hyperparathyr oidism 09455716 Active 2024 Mavisbrieyoli Gonzaleztiny, [employer] [address], [place], [address] , [place] - [facility] 5 16:39:10 Problem Notes None recorded. Procedures Surgical History Date Name Laterality Status Provider Name and Address Organization Details Recorded Time Advance Care Planning completed Sandra Brink [place] - [facility] 10/28/2024 14:00:58 Functional Status Assessed completed Sandra Brink [place] - [facility] 10/28/2024 14:00:58 Imaging Results None recorded. Procedure Notes None recorded. Medical Equipment None Reported. Allergies Allergen ID Allergen Name Allergen Category Reaction Reaction Severity Criticality Documentation Date Start Date Code Code System Note Provider Name and Address Organization Details Recorded Time 404806 insulin aspart, human medicatio n other moderate high 06/30/2024 65774 RxNorm state s any insul in at any dose drops his gluco se too much Sandra Cuba ramon, [place] - [facility] 5 08:24:14 511838 naproxen medicatio n abdominal pain moderate high 06/30/2024 7258 RxNorm Sandra Cuba null, [place] - [facility] 08:24:28 690323 cow milk allergeni c extract food,medi cation dyspnea Not available Not available 01/26/20252013 59968 5 RxNorm Can have butte r (had issue with not able to get green beans , chick en noodl e soup, but able to have) Not Available [facility] - [employer] - prod 17:31:33 869667 empaglifl ozin medicatio n Not available Not available high 01/26/20252021 08495 53 RxNorm Got a blood infec tion unrec ogniz ed react ion (text : Other (See Comme nts), code: 04261 003) (from exter nal sourc e) Not Available [facility] - External Data [employer] - prod 17:31:33 832582 clindamyc in Not available rash Not available Not available 01/26/20252023 2582 RxNorm Not Available [facility] - External Data [employer] - prod 17:31:33 431088 Milk (substanc e) food,medi cation Not available Not available Not available 02/12/2025 97337 002 SNOMED Not Available [facility] - External Data [employer] - prod 07:22:47 Medications Name Sig Start Date Stop Date [...] completed Not Available Not Available Not Available SPS (with sorbitol) 15 gram-20 gram/60 mL oral suspensio n TAKE 60MLS BY MOUTH FOR ONE (1) DOSE active Not Available Not Available No t Available triamcino lone acetonide 0.1 % topical [...] ketoconaz ole 2 % topical cream APPLY TO THE AFFECTED AREA(S) BY TOPICAL ROUTE ONCE DAILY 2024 active Not Available Not Available Not Avai lable clobetaso l 0.05 % scalp solution APPLY [...] 100 unit/mL (3 mL) subcutane ous pen Inject 50 units every day by subcutan eous route at bedtime for 45 days. 2024 active Not Available Not Available Not Avai lable Tradjenta 5 mg tablet Take 1 tablet every day by oral route. 2024 active lot [id number], exp 10/2025 samples provided today Not Available Not Available Not Available Farxiga 10 mg tablet Take 1 tablet every day by oral route. active Not Available Not Available No t Available sacubitri l 24 mg-valsar granado 26 mg [...] Not Available Not Available Not Avai lable Yovana Pen Needle 32 gauge x USE DIRECTED WITH LANTUS active Not Available Not Available No t Available Vitals Date Recorded Body height Body mass index (BMI) Body weight Body temperature Oxygen saturation Respiratory rate Pain severity - 0-10 verbal numeric rating [Score] - Reported Heart rate Systolic And Diastolic Provider Name and Address Organization Details Last Updated DateTime 5 175.26 cm 35.6 kg/m2 938813. 46 g 98.1 [degF] 97 % 18 /min 0 79 /min 128/60 mm[Hg] Sandra Brink [place] - [facility] 10:55:05 Social History Question Answer [...] Or The Highest Degree You Have Received? ED00752-1 Information not available 06/30/2024 Have There Been Any Changes To Your Family Or Social Situation? No Information no t available 06/30/2024 What Is The Fluoride Status Of Your Home? Fluoridated Information not available 06/30/2024 Have You Recently Or Are You Planning To Travel To An Area With Zika Virus? No Information not available 06/30/2024 Do You Have A Medical Power Of Caramel Cutter Hand? No Information not available 06/30/2024 What Was [...] anxious, or unable to sleep at night)? [id number] Information not available 06/30/2024 Do you have difficulty concentrating, remembering or making decisions? No Information no t available 06/30/2024 Family History Nothing Reported. Medical History No medical history recorded. Immunizations Vaccine Type Date Status Note Provider Name and Address Organization Details Recorded Time Tdap 10/27/19 18 completed Not Available [facility] 02/12/2025 13:43:34 Influenza, high-dose, trivalent, PF 01/26/20 19 completed Not Available [facility] 02/12/2025 13:43:34 Influenza, split virus, trivalent, preservative 10/29/19 25 cancelled patient objection Darron Nice APRN [address], [place], [address], [place] - [facility] 10/28/2024 14:24:18 zoster recombinant 10/29/19 25 cancelled patient objection Darron Nice APRN [address], [place], [address], [place] - [facility] 10/28/2024 14:24:18 Past Encounters Encounter ID Performer Location Encounter Start Date Encounter Closed Date Diagnosis/Indication Diagnosis SNOMED-CT Code Diagnosis ICD10 Code Diagnosis IMO Codes Diagnosis Note [id number] Darron Nice APRN [address] [address] 01/06/2025 13:54:25 01/06/2025 15:16:17 Chest pain 57810510 R07.9 [id number] spoke with tiffanie, see tiffanie tomorrow at 9 amif pain returns or worsen return Chronic low back pain 27 1337358 M54.50 G89.29 80090896 voltaren- allergy to naproxen- 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 Type 2 wilton betes mellitus 66114548 E11.9 Z79.4 58302503 stop metformini ncrease lantus to 38 unitskeep log return in 2 weeks with log [id number] Darron Nice APRN [address] [address] 01/20/2025 10:03:17 01/20/2025 11:23:11 Type 2 diabetes mellitus 42597612 E11.9 Z79.4 59044750 stop metformini ncrease lantus to 45 units, continue to increase lantus by 2 units if adv glucose over 200.if cre improved will restart metformin, if not will start trajenta and refer to endo.keep log return in 2 weeks with log Arterioscl erosis of coronary artery bypass graft 794692030 I25.810 30721230 Uncontroll ed type 2 diabetes mellitus 249145651 E11.65 97201735 stop metforminp t refuses glp1,insul in,jardian ce,insulin pump at this timeincrea se lantus to 45 unitskeep log return in 2 weeks with log Right lowe r quadrant pain 173095688 R10.31 885501 Health Concerns Section Related Observation LastModified by Organization Detai ls LastModified Time None Recorded Concern Status LastModified by Organization Details LastModified Time None Recorded Payers Encounter Date Sequence Insurance Name Policy Number Policy Lacy Covered Member ID Lacy Member ID Guarantor Name 01/20/2025 1 [employer] - GOLD PLUS (MEDICARE REPLACEMENT/A DVANTAGE - HMO) Ovi Escobar [id number] Ovi Escobar Notes Date Note Type Note [...] or jardiance at this time Darron Nice, [employer] [address], [place], [address], [place] - [facility] 01/20/2025 11:19:44
--- OUTSIDE RECORDS SUMMARY | 2025-02-14 14:45 | XMS_ITS | Encounter Summary ---
Author Organization [place] [address] Care Team Providers Care Hair Dresser Name Role Phone Renato Rey DO, Viral Primary Care Provider [phone] Ariana Munguia MD Unavailable [phone] Reason for Visit * Reason Onset Date Comments CM- Telephonic Outreach 12/17/2024 CM-Medication Assistance 12/17/2024 Encounter Details Date Type Department Care Team (Late st Contact Info) Description 12/17/2024 Patient Outreach [address] [address] Allison Angel, JAMISON CM- Telephonic Outreach; CM-Medication Assistance Social History Tobacco Use Types Packs/Day Years Used Date Smoking Tobacco: Never Smokeless Tobacco: Never Alcohol Use Standard Drinks/Week Comments No 0 (1 standard drink = 0.6 oz pur e alcohol) NO [facility] Utilities Answer Date Recorded In the past 12 months has [employer], gas, oil, or water [employer] threatened to shut off services in your home? No 01/01/2024 Overall Financial Resource Strain (CARDIA) Answe r Date Recorded How hard is it for you to pa y for the very basics like food, housing, medical care, and heating? 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 Advised to metal pickling equipment operator as soon as possible as refrigerator space [...] documented as of this encounter Care Teams Hair Dresser Relationship Specialty Start Date End Date Carlos A Gross DO [address] [place] [address] PCP - General Family Medicine 06/15/20 Ariana Munguia MD [address] [place] [address] Internal Medicine-Cardiovascular Disease 04/11/22 documented as of this encounter
--- OUTSIDE RECORDS SUMMARY | 2025-02-14 14:45 | XMS_ITS | Encounter Summary ---
Author Organization [place] [address] Care Team Providers Care Tape Editor Name Role Phone Renato Rey DO, Viral Primary Care Provider [phone] Ariana Munguia MD Unavailable [phone] Reason for Visit * Reason Onset Date Comments Follow Up 12/12/2024 dallintus Encounter Details Date Type Department Care Team (Late st Contact Info) Description 12/12/2024 Telephone [facility] [address] [place] [address] Carlos A Gross DO [address] [place] [address] Follow Up (lantus) Social History Tobacco Use Types Packs/Day Years Used Date Smoking Tobacco: Never Smokeless Tobacco: Never Alcohol Use Standard Drinks/Week Comments No 0 (1 standard drink = 0.6 oz pur e alcohol) NO [facility] Utilities Answer Date Recorded In [...] Date Recorded PHQ-2 Total Score 0 01/01/2024 [facility] [place] of Occupat ional Health - Occupational Stress [...] things needed for daily living? No 07/24/2024 [facility] IP Transportation Answer D ate Recorded [...] will need to enroll with doctor at [facility] for 2025 enrollment with [facility]. * Telephone Encounter - Meron Palma - [...] documented as of this encounter Care Teams Tape Editor Relationship Specialty Start Date End Date Carlos A Gross DO [address] [place] [address] PCP - General Family Medicine 06/15/20 Ariana Munguia MD [address] [place], [place] [id number] Internal Medicine-Cardiovascular Disease 04/11/22 documented as of this encounter
--- OUTSIDE RECORDS SUMMARY | 2025-02-14 14:46 | XMS_ITS | Encounter Summary ---
Author Organization [place] [address] Care Team Providers Care Land Leasing Information Clerk Name Role Phone Renato Rey DO, Viral Primary Care Provider [phone] Ariana Munguia MD Unavailable [phone] Reason for Visit * Reason Comments Medication Refill Encounter Details Date Type Department Care Team (Late st Contact Info) Description 01/18/2025 Refill [facility] [address] [place] [address] Carlos A Gross DO [address] [place] [address] Medication Refill Social History Tobacco Use Types Packs/Day Years Used Date Smoking Tobacco: Never Smokeless Tobacco: Never Alcohol Use Standard Drinks/Week Comments No 0 (1 standard drink = 0.6 oz pur e alcohol) NO [facility] Utilities Answer Date Recorded In the past 12 months has [employer], gas, oil, or water [employer] [place] threatened to shut off services in your home? No 01/01/2024 Overall Financial Resource Strain (CARDIA) Answe r Date Recorded How hard is it for you to pa y for the very basics like food, housing, medical care, and heating? Not very hard 07/24/2024 PHQ-2 Answer Date Recorded PHQ-2 Total Score 0 01/01/2024 [facility] [place] of Occupat ional Health - Occupational Stress [...] things needed for daily living? No 07/24/2024 [facility] IP Transportation Answer D ate Recorded In [...] documented as of this encounter Care Teams Land Leasing Information Clerk Relationship Specialty Start Date End Date Carlos A Gross DO [address] [place] [address] PCP - General Family Medicine 06/15/20 Ariana Munguia MD [address] [place] [address] Internal Medicine-Cardiovascular Disease 04/11/22 documented as of this encounter
--- OUTSIDE RECORDS SUMMARY | 2025-02-14 14:48 | XMS_ITS | Continuity of Care Document ---
Author Organization [facility] Address [address] [place] [address] Phone Care Team Providers Care Chemist Physical Name Role Phone Gross V, DO, Viral Primary Care Provider [phone] Sapphire Munguia MD Unavailable [phone] Encounters Date Type Department Care Team Description 01/29/20 25 Telephone [facility] [place] [address] Gross, Viral V, DO Other (Medication assistance) 01/19/20 25 Refill [facility] [address] [address] Gross, Viral V, DO Medication Refill 12/29/19 25 Refill [facility] [address] [address] Gross, Viral V, DO Medication Refill 12/18/19 25 Patient Outreach [address] [address] Allison Angel, JAMISON CM- Telephonic Outreach; CM-Medication Assistance 12/13/19 25 Telephone [facility] [place] [address] Gross, Viral V, DO Follow Up (lantus) 11/16/19 25 Refill [facility] [place] [address] Gross, Viral V, DO Medication Refill 11/05/19 25 Refill [facility] [address] [address] Gross, Viral V, DO Medication Refill 11/04/19 [address] [address] Gross, Viral V, DO Refill (metFORMIN (GLUCOPHAGE XR) 500 mg Oral ER 24 hr tablet ) 10/17/19 [address] [address] Gross, Viral V, DO Medication Refill 10/16/19 [address] [address] Gross, Viral V, DO Medication Management (Lantus ) 10/08/19 25 Refill [facility] [place] [address] [place] [address] Sapphire Munguia MD Medication Refill 10/01/19 25 Refill [facility] [place] [address] [place] [address] Sapphire Munguia MD Medication Refill 09/19/19 [address] [address] Gross, Viral V, DO Medication Refill 09/03/19 25 12:30 PM EDT Clinical Support [address] [address] Allison Angel RN Uncontrolled type 2 diabetes mellitus with hyperglycemia (HCC) (Primary Dx); CHF (congestive heart failure), NYHA class I, acute on chronic, combined (HCC); Enrolled in chronic care management 09/03/19 25 Refill [facility] Neph[facility] [place] [address] [place] [address] Abel Hernandez MD Medication Refill 08/28/19 25 Orders Only [facility] [address] [place], [place] [id number] Gross, Viral V, DO Screening for cancer of the rectum; Screen for colon cancer 08/20/19 25 Refill [facility] NEPHR[facility] [place] [address] [place] [address] Abel Hernandez MD Medication Refill 08/09/19 25 Telephone [facility] [place] [facility] [address] [place] [place] [address] Renato Viral V, DO Medication Management (pt needing med from office) 07/29/19 Patient Outreach [address] [place] [address] Allison Angel RN CM- Telephonic Outreach; CM-Medication Assistance 07/25/19 8:30 AM EDT Clinical Support [facility] [place] [place] [address] Allison Angel, RN Uncontrolled type 2 diabetes mellitus with hyperglycemia (HCC) (Primary Dx); CHF (congestive heart failure), NYHA class I, acute on chronic, combined (HCC); Enrolled in chronic care management 07/19/19 11:30 AM EDT - 07/19/19 11:59 PM EDT Hospital Encounter [facility] [place] [facility] [address] [place] [address] Stage 3a chronic kidney disease (HCC); Vitamin D deficiency; Chronic kidney disease-mineral and bone disorder Discharge Disposition: Home or Self Care 07/19/19 10:30 AM EDT Office Visit [facility] [place] [address] [facility] [place] [address] Abel Hernandez MD Stage 3a chronic kidney disease (HCC) (Primary Dx); Chronic kidney disease-mineral and bone disorder; HTN (hypertension), benign 07/09/19 25 Refill [facility] [place] [facility] [address] [facility] [place] [address] Renato Viral V, DO Medication Refill 07/08/19 25 1:15 PM EDT Clinical Support [facility] [place] [place] [address] Allison Angel, JAMISON Uncontrolled type 2 diabetes mellitus with hyperglycemia (HCC) (Primary Dx); CHF (congestive heart failure), NYHA class I, acute on chronic, combined (HCC); Enrolled in chronic care management 07/06/19 25 Refill [facility] [place] 606 [facility] [address] [place] [phone] Sapphire Munguia MD Medication Refill 07/03/19 25 Refill [facility] [place] [place] [address] Gross, Viral V, DO Medication Refill 06/28/19 25 Telephone [facility] [place] [place] [address] Gross, Viral V, DO Other (bw orders needing faxed) 06/27/19 25 Refill [facility] [address] [place] [address] Omi aDly, DO Medication Refill 06/27/19 25 Refill [address] [address] [address] Gross, Viral V, DO Medication Refill 06/26/19 25 Refill [facility] [address] [address] Oswaldo Harry MD Medication Refill 06/21/19 25 Telephone [facility] [place] [address] [place] [phone] Sapphire Munguia MD Patient Question (Pt returning your call) 06/17/19 25 4:40 PM EDT Office Visit [address] [address] Oswaldo Harry MD Acute bacterial sinusitis (Primary Dx) 06/17/19 25 Refill [facility] [address] [address] Gross, Viral V, DO Medication Refill 06/12/19 [address] [address] Gross, Viral V, DO Medication Refill 06/06/[address] [address] Gross, Viral V, DO Other (med ) 06/06/19 11:15 AM EDT Clinical Support [address] [address] Allison Angel, RN Uncontrolled type 2 diabetes mellitus with hyperglycemia (HCC) (Primary Dx); CHF (congestive heart failure), NYHA class I, acute on chronic, combined (HCC); Enrolled in chronic care management 05/29/19 Patient Outreach [address] [address] Allison Angel, RN CM- Telephonic Outreach; CM-Medication Assistance (Lantus) 05/21/19 4:30 PM EDT Office Visit [address] [address] Gross, Viral V, DO Uncontrolled type 2 diabetes mellitus with hyperglycemia (HCC) (Primary Dx); Pure hypercholesterolemia; Seasonal allergic rhinitis due to pollen; Acute bronchitis, unspecified organism; Facial rash 05/17/19 [address] [address] Gross, Viral V, DO Refill (clobetasol) 05/08/19 [address] [address] Gross, Viral V, DO Medication Refill 05/06/19 10:15 AM EST Office Visit [facility] [address] [address] Sapphire Munguia MD ASHD (arteriosclerotic heart disease) (Primary Dx); Dyslipidemia associated with type 2 diabetes mellitus (HCC); S/P CABG x 3 05/05/19 25 Patient Outreach [address] [address] Allison Angel RN CM- Telephonic Outreach; CM-Medication Assistance 05/01/19 25 Refill [facility] [place] [address] Gross, Viral V, DO Medication Refill 04/22/19 [address] [address] Gross, Viral V, DO Medication Management ( Disp Refills Start End /insulin glargine (LANTUS SOLOSTAR U-100 INSULIN) 100 unit/mL (3 mL) SubQ Insulin Pen - - 12/19/2023 - /Sig - Route: Subcutaneous (Inject under the skin) 15 Units nightly. - Subcutaneous //) 04/16/19 25 Telephone [facility] [place] [id number] Sapphire Munguia MD Cardiology Clearance 04/15/19 [address] [address] Dianne Dai RMA Forms 04/08/19 25 1:00 PM EST 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, unspecified whether intermediate frame tender insulin use ([facility]) 04/06/19 25 Refill [facility] [place] [address] Gross, Viral V, DO Medication Refill 03/17/19 25 9:00 AM EST Clinical Support [address] [address] Allison Angel, RN Uncontrolled type 2 diabetes mellitus with hyperglycemia (HCC) (Primary Dx); CHF (congestive heart failure), NYHA class I, acute on chronic, combined (HCC); Enrolled in chronic care management 03/01/20 24 Refill [facility] [place] [facility] [address] [facility] [place] [address] Gross, Viral V, DO Medication Refill 02/15/20 24 Telephone [facility] [place] [facility] [place] [address] Gross, Viral V, DO Results (X-Ray) 02/13/20 24 2:11 PM EST - 02/13/20 24 11:59 PM EST Hospital Encounter [facility] [place] [address] Fluid retention in legs; CHF (congestive heart failure), NYHA class I, acute on chronic, combined (HCC); Acute on chronic systolic congestive heart failure (HCC) Discharge Disposition: Home or Self Care 02/13/20 24 2:40 PM EST Office Visit [facility] [place] [facility] [address] [place] [address] Gross, Viral V, DO Fluid retention in legs (Primary Dx); CHF (congestive heart failure), NYHA class I, acute on chronic, combined (HCC); Acute on chronic systolic congestive heart failure (HCC); Well adult exam 02/13/20 24 9:00 AM EST Clinical Support [facility] [place] [address] Allison Angel, RN Uncontrolled type 2 diabetes mellitus with hyperglycemia (HCC) (Primary Dx); CHF (congestive heart failure), NYHA class I, acute on chronic, combined (HCC) 02/11/20 24 8:31 AM EST - 02/11/20 24 11:59 PM EST Hospital Encounter [facility] [place] [address] [place] [address] CHF (congestive heart failure), NYHA class I, acute on chronic, combined (HCC) Discharge Disposition: Home or Self Care 02/01/20 24 Orders Only [facility] [place] [address] [place] [address] Juan Carlos Su MA CHF (congestive heart failure), NYHA class I, acute on chronic, combined (HCC) (Primary Dx) 01/31/20 24 Telephone [facility] [place] [address] [place] [address] Gross, Viral V, DO Medication Management (Lasix) 01/24/20 24 Refill [facility] [place] [place] [address] Gross, Viral V, DO Medication Refill 01/22/20 24 Patient Outreach [facility] [address] Appointment Location [place] [id number] Sasha Messer RN CM-Medication Assistance 01/14/20 10:10 AM EST Office Visit [facility] [place] [address] [place] [address] Gross, Viral V, DO Seasonal allergic rhinitis due to pollen (Primary Dx); CHF (congestive heart failure), NYHA class I, acute on chronic, combined (HCC); Acute bronchitis, unspecified organism 01/14/20 9:00 AM EST Clinical Support [facility] [place] [address] [place] [address] Allison Angel RN Uncontrolled type 2 diabetes mellitus with hyperglycemia (HCC) (Primary Dx); CHF (congestive heart failure), NYHA class I, acute on chronic, combined (HCC) 01/08/20 10:30 AM EDT Clinical Support [facility] [place] [place] [address] Allison Angel RN Uncontrolled type 2 diabetes mellitus with hyperglycemia (HCC) (Primary Dx); CHF (congestive heart failure), NYHA class I, acute on chronic, combined (HCC) 01/04/20 24 Patient Outreach [facility] [address] [place] [address] Nicki Michelle Referral 01/04/20 Patient Outreach [facility] [address] [place] [address] Makenzie Mullen, JAMISON Hospital Follow Up; Care Transition; CM-Resource Coordination 01/04/20 Patient Outreach [facility] [address] [facility] [address] [place] [address] Cande Petty, JAMISON Hospital Follow Up 01/04/20 11:20 AM EDT [facility] [address] [place] [address] Gross, Viral V, DO CHF (congestive heart failure), NYHA class I, acute on chronic, combined (HCC) (Primary Dx); Acute on chronic systolic congestive heart failure (HCC); Stage 3 chronic kidney disease, unspecified whether stage 3a or 3b CKD (HCC) 01/04/20 10:45 AM EDT Office Visit [facility] NEPHROLOGY [address] [address] Abel Hernandez MD Stage 3a chronic kidney disease (HCC) (Primary Dx); Chronic kidney disease-mineral and bone disorder 12/31/19 7:05 PM EDT - 01/03/20 11:44 AM EDT Hospital Encounter [facility] [address] [address] [place] [address] Momo Castellanos MD CHF (congestive heart failure), NYHA class I, acute on chronic, combined (HCC) Discharge Disposition: Home or Self Care 01/01/20 Orders Only [facility] Nephrology [place] [address] [place], [place] [phone] Abel Hernandez MD Stage 3a chronic kidney disease (HCC) (Primary Dx); Vitamin D deficiency 12/31/19 Travel 12/31/19 12:30 PM EDT - 12/31/19 5:52 PM EDT Emergency [facility] [address] [facility] [place] [address] Sixto Jose MD Cho, Soung H, MD Acute on chronic systolic congestive heart failure (HCC) (Primary Dx) Discharge Disposition: Still a Patient 12/31/19 24 Telephone [facility] [place] [facility] 405 [place] [address] Gross, Viral V, DO 911/Red Flag (Severely sob) 12/25/19 24 Telephone [facility] [place] [address] [facility] [place] [address] Gross, Viral V, DO Results 12/24/19 24 12:54 PM EDT - 12/24/19 11:59 PM EDT Hospital Encounter [facility] [address] [place] [id number] Emg, Akbar Edg Peripheral polyneuropathy (Primary Dx); Numbness and tingling of left arm and leg; Numbness and tingling of right arm and leg; Generalized osteoarthritis of multiple sites; Left carpal tunnel syndrome Discharge Disposition: Home or Self Care 12/19/19 24 Orders Only [facility] [place] [facility] [address] [facility] [place] [address] Gross, Viral V, DO Stage 3 chronic kidney disease, unspecified whether stage 3a or 3b CKD (HCC) (Primary Dx); Uncontrolled type 2 diabetes mellitus with hyperglycemia (HCC) 12/12/19 24 2:25 PM EDT - 12/12/19 24 11:59 PM EDT Hospital Encounter [facility] [address] [place] [address] Uncontrolled type 2 diabetes mellitus with hyperglycemia (HCC); Gastroesophageal reflux disease with esophagitis, unspecified whether hemorrhage; CHF (congestive heart failure), NYHA class I, acute on chronic, combined (HCC) Discharge Disposition: Home or Self Care 12/12/19 24 Telephone [facility] [place] [facility] [address] [place] [address] Gross, Viral V, DO Results (Chest xray) 12/11/19 24 3:41 PM EDT - 12/11/19 24 11:59 PM EDT Hospital Encounter [facility] [address] [place] [address] CHF (congestive heart failure), NYHA class I, acute on chronic, combined (HCC) Discharge Disposition: Home or Self Care 12/11/19 24 2:00 PM EDT Clinical Support [address] [place] [address] Allison Angel, RN Uncontrolled type 2 diabetes mellitus with hyperglycemia ([facility]) (Primary Dx); CHF (congestive heart failure), NYHA class I, acute on chronic, combined ([facility]) 12/11/19 24 1:40 PM EDT Office Visit [address] [place] [address] Gross, Viral V, DO CHF (congestive heart failure), NYHA class I, acute on chronic, combined ([facility]) (Primary Dx); Uncontrolled type 2 diabetes mellitus with hyperglycemia ([facility]); Gastroesophageal reflux disease with esophagitis, unspecified whether hemorrhage 12/10/19 [address] [phone] Gross, Viral V, DO Medication Refill 12/09/19 [address] [address] Gross, Viral V, DO Medication Refill 12/03/19 [address] [place] [address] Gross, Viral V, DO Medication Refill 11/28/19 24 2:00 PM EDT Ancillary Procedure [facility] [address] [address] Numbness and tingling of lef t arm and leg; Numbness and tingling of right arm and leg; Generalized osteoarthritis of multiple sites 11/28/19 [address] [place] [address] Dianne Dai RMA 11/28/19 [address] [place] [address] Gross, Viral V, DO Medication Refill 11/28/19 24 1:30 PM EDT Clinical Support [address] [address] Allison Angel RN Uncontrolled type 2 diabetes mellitus with hyperglycemia (HCC) (Primary Dx); CHF (congestive heart failure), NYHA class I, acute on chronic, combined (HCC) 11/28/19 24 1:20 PM EDT Office Visit [address] [address] Gross, Viral V, DO Generalized osteoarthritis of multiple sites (Primary Dx); Numbness and tingling of left arm and leg; Numbness and tingling of right arm and leg 11/26/19 [address] [address] Gross, Viral V, DO Other (/ Disp Refills Start End /insulin glargine (LANTUS SOLOSTAR U-100 INSULIN) 100 unit/mL (3 mL) SubQ Insulin Pen 15 mL 11 08/17/2023 - / //) 11/24/19 [address] [address] Renato Viral V, DO Medication Refill 11/19/19 [address] [address] Gross, Viral V, DO Refill ( Disp Refills Start End /Insulin Daykin, Disposable, (SALENA PEN NEEDLE) 32 gauge x 5/32 Misc Needle 100 Each 11 08/20/2023 - /Sig: Use as directed with insulin //) 11/06/19 24 9:30 AM EDT Office Visit [facility] [place] [id number] Sapphire Munguia MD ASHD (arteriosclerotic heart disease) (Primary Dx); Dyslipidemia associated with type 2 diabetes mellitus (HCC); Ischemic heart disease; S/P CABG x 3 11/02/19 [address] [address] Renato Viral V, DO Refill (fexofenadine-med pended) 11/02/19 24 Telephone [facility] [place] [address] [place] [address] Sapphire Munguia MD Appointment Needed 10/31/19 24 9:22 AM EDT - 11/01/19 24 3:28 PM EDT Hospital Encounter [place] [address] Sapphire Munguia MD Coronary artery disease due to calcified coronary lesion; Abnormal coronary angiogram; Uncontrolled type 2 diabetes mellitus with hyperglycemia (HCC) Discharge Disposition: Home or Self Care 10/31/19 24 12:00 PM EDT - 10/31/19 24 2:00 PM EDT Surgery [facility] 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 [address] Sapphire Munguia MD CORONARY ANGIOGRAM / CARDIAC CATHETERIZATION 10/30/19 24 8:43 AM EDT - 10/30/19 24 11:59 PM EDT Hospital Encounter [facility] [place] [address] [address] Discharge Disposition: Home or Self Care 10/27/19 24 Refill [facility] [place] [address] [address] Gross, Viral V, DO Medication Refill 10/25/19 24 Telephone [facility] [place] [address] [place] [phone] Sapphire Munguia MD Tingling 10/24/19 24 Refill [facility] [place] [address] [address] Dianne Dai RMA Medication Refill 10/23/19 24 Refill [facility] [place] [address] [address] Edith Oropeza APRN Medication Refill 10/22/19 24 Telephone [facility] [address] [address] Sapphire Munguia MD Prior Authorization (denial received ) 10/17/19 24 Orders Only [facility] [place] [address] [place] [address] Sapphire Munguia MD Coronary artery disease involving northway heart without angina pectoris, unspecified vessel or lesion type (Primary Dx); Other forms of angina pectoris (HCC) 10/16/19 24 Telephone [facility] [address] [address] Sapphire Munguia MD Procedure 10/01/19 24 Travel 10/01/19 24 9:00 AM EDT - 10/01/19 24 10:30 AM EDT Surgery [facility] [employer]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 [address] Sapphire Munguia MD CORONARY ANGIOGRAM WITH GRAFTS / CARDIAC CATHETERIZATION 10/01/19 24 6:34 AM EDT - 10/01/19 24 12:20 PM EDT Hospital Encounter [facility] CARD CATH REC [facility] [place] [address] Sapphire Munguia MD Other forms of angina pectoris (HCC); SOB (shortness of breath); ASHD (arteriosclerotic heart disease) Discharge Disposition: Home or Self Care 09/29/19 24 9:25 AM EDT - 09/29/19 24 11:59 PM EDT Hospital Encounter [facility] [place] [facility] [address] [place] [address] Dyslipidemia associated with type 2 diabetes mellitus (HCC); Coronary artery disease involving northway heart without angina pectoris, unspecified vessel or lesion type; S/P CABG x 3; SOB (shortness of breath); Chest pain, unspecified type Discharge Disposition: Home or Self Care 09/27/19 [address] [address] Paula Bourgeois, Jv Baseball Coach Other (Returning Patient) 09/23/19 24 Refill [facility] [place] [facility] [address] [place] [address] Carlos A Gross V, DO Medication Refill 09/21/19 24 Telephone [facility] [place] [facility] [address] [place] [address] Gross, Carlos A V, DO 911/Red Flag (chest pain w/ SOB) 09/20/19 24 Orders Only [facility] [place] [id number] Sapphire Munguia MD Coronary artery disease involving northway heart without angina pectoris, unspecified vessel or lesion type (Primary Dx); S/P CABG x 3; SOB (shortness of breath); Chest pain, unspecified type 09/20/19 24 11:30 AM EDT Office Visit [facility] [place] [id number] He Pineda APRN Dyslipidemia associated with type 2 diabetes mellitus (HCC) (Primary Dx); Coronary artery disease involving northway heart without angina pectoris, unspecified vessel or lesion type; Uncontrolled type 2 diabetes mellitus with hyperglycemia (HCC); Ventricular bigeminy; S/P CABG x 3; SOB (shortness of breath); Occlusion of left vertebral artery; Ischemic heart disease; Pure hypercholesterolemia; Other specified hypotension; CHF (congestive heart failure), NYHA class I, acute on chronic, combined (HCC) 09/19/19 24 [facility] [address] [facility] [address] [place] [address] Lyle Solo MD Results 09/18/19 24 Refill [facility] [address] [place] [address] Edith Oropeza APRN Medication Refill 09/18/19 24 10:20 AM EDT Ancillary Procedure [facility] [address] [facility] [address] [place] [address] Paula Munguia PA DDD (degenerative disc disease), lumbar 09/18/19 24 11:00 AM EDT [facility] [address] [address] Paula Munguia PA DDD (degenerative disc disease), lumbar (Primary Dx); Lumbar degenerative disc disease; Chronic low back pain, unspecified back pain laterality, unspecified whether sciatica present; Lumbar pain; Myofascial pain; Lumbar spondylosis 09/17/19 24 Telephone [facility] [place] [facility] [address] [place] [address] Gross, Viral V, DO Orders (lab work) 09/17/19 24 1:04 PM EDT - 09/17/19 24 11:59 PM EDT Hospital Encounter [facility] Ultrasound [address] [place] [address] Lyle Solo MD Thyroid nodule Discharge Disposition: Home or Self Care 09/12/19 24 Telephone [facility] [place] [facility] [address] [place] [address] Renato Viral V, DO Medication Management ( Disp Refills Start End /lisinopriL (PRINIVIL;ZESTRIL) 2.5 mg Oral Tablet 90 Tablet 3 06/11/2023 - /Sig: TAKE 1 TABLET BY MOUTH ONCE DAILY . /Sent to pharmacy as: lisinopriL 2.5 mg tablet (PRINIVIL;ZESTril) /E-Prescribing Status: Receipt confirmed by pharmacy (06/11/2023 9:33 AM EDT) //) 09/12/19 24 Refill [address] [address] [address] Renato Viral V, DO Medication Refill 09/07/19 24 Telephone [facility] [address] [address] Sapphire Munguia MD Appointment Needed (Pt requesting appt to see Ezra for sob); Shortness of Breath 08/30/19 24 1:50 PM EDT - 08/30/19 24 11:59 PM EDT Hospital Encounter [facility] [place] [facility] [address] [place] [address] Uncontrolled type 2 diabetes mellitus with hyperglycemia (HCC); Stage 3a chronic kidney disease (HCC); 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); HTN (hypertension), benign Discharge Disposition: Home or Self Care 08/30/19 24 Refill [facility] [place] [place] [address] Gross, Viral V, DO Medication Refill 08/27/19 24 Telephone [facility] [place] [facility] [address] [facility] [place] [address] Gross, Viral V, DO Samples (semaglutide (OZEMPIC) 2 mg/dose (8 mg/3 mL) SubQ Pen Injector ) 08/22/19 24 Refill [facility] [place] [place] [address] Gross, Viral V, DO Medication Refill 08/21/19 24 Telephone [facility] [place] [place] [address] Gross, Viral V, DO Referral (ortho/spine) 08/21/19 24 Orders Only [facility] [place] [place] [address] Gross, Viral V, DO Low sodium levels (Primary Dx) 08/20/19 24 Orders Only [facility] [place] [place] [address] Gross, Viral V, DO Uncontrolled type 2 diabetes mellitus with hyperglycemia (HCC) (Primary Dx) 08/17/19 24 9:54 AM EDT - 08/17/19 24 11:59 PM EDT Hospital Encounter [facility] [place] [place] [address] Uncontrolled type 2 diabetes mellitus with hyperglycemia (HCC); Stage 3 chronic kidney disease, unspecified whether stage 3a or 3b CKD (HCC); Muscle cramps Discharge Disposition: Home or Self Care 08/17/19 24 8:40 AM EDT Office Visit [facility] [place] [place] [address] Gross, Viral V, DO Uncontrolled type 2 diabetes mellitus with hyperglycemia (HCC) (Primary Dx); Stage 3 chronic kidney disease, unspecified whether stage 3a or 3b CKD (HCC); Muscle cramps 08/17/19 24 9:00 AM EDT Office Visit [facility] [place] [address] Abel Hernandez MD Stage 3a chronic kidney disease (HCC) (Primary Dx); HTN (hypertension), benign; 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) 08/16/19 24 Telephone [facility] [place] [address] [place] [address] Gross, Viral V, DO Letter for School/Work 08/13/19 24 2:55 PM EDT - 08/13/19 24 11:59 PM EDT Hospital Encounter [facility] [place] [address] [place] [address] Stage 3b chronic kidney disease (HCC); Edema due to hypervolemia; 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); HTN (hypertension), benign Discharge Disposition: Home or Self Care 08/03/19 24 Refill [facility] [place] [place] [address] Edith Oropeza APRN Medication Refill 07/24/19 24 Refill [facility] [place] [place] [address] Gross, Viral V, DO Medication Refill 07/18/19 24 11:45 AM EDT Office Visit [facility] [place] [id number] Sapphire Munguia MD Coronary artery disease involving northway heart without angina pectoris, unspecified vessel or lesion type (Primary Dx); Mixed hyperlipidemia; S/P CABG x 3; Congestive heart failure, unspecified HF chronicity, unspecified heart failure type (HCC) 07/16/19 24 4:00 PM EDT Office Visit [facility] [place] [address] [place] [address] Gross, Viral V, DO Spondylosis of lumbar region without myelopathy or radiculopathy (Primary Dx); Screening for colon cancer; Essential hypertension; History of TIA (transient ischemic attack) 07/10/19 24 Travel 07/10/19 24 3:11 PM EDT - 07/10/19 5:19 PM EDT Emergency [facility] [address] [facility] [place] [address] Mitchell Gaitan MD Acute left-sided low back pain without sciatica (Primary Dx) Discharge Disposition: Home or Self Care 06/29/[address] [address] Carlos A Gross V, DO Medication Refill (one touch ) 06/28/19 Patient Outreach [address] [address] Bryanna Mitchell RN CM- Telephonic Outreach; Care Transition; CM-Medication Assistance 06/27/19 12:24 PM EDT - 06/27/19 11:59 PM EDT Hospital Encounter [address] [address] Sapphire Munguia MD SOB (shortness of breath) on exertion Discharge Disposition: Home or Self Care 06/27/19 12:24 PM EDT - 06/27/19 11:59 PM EDT Hospital Encounter [facility] [address] [place] [address] Sapphire Munguia MD SOB (shortness of breath) on exertion Discharge Disposition: Home or Self Care 06/25/19 Orders Only [facility] [address] [address] Maryjane Sotomayor MA 06/25/19 24 Telephone [facility] [address] [address] Sapphire Munguia MD Medication Refill 06/21/19 3:45 PM EDT Office Visit [facility] [address] [address] Sapphire Munguia MD Coronary artery disease involving northway heart without angina pectoris, unspecified vessel or lesion type (Primary Dx); Mixed hyperlipidemia; Ischemic heart disease; Congestive heart failure, unspecified HF chronicity, unspecified heart failure type (HCC); S/P CABG x 3; Heart murmur; SOB (shortness of breath) on exertion 06/21/19 24 12:20 PM EDT [facility] [place] [address] Lyle Solo MD Mass of right parotid gland (Primary Dx); Thyroid nodule 06/20/19 24 Refill [facility] [place] [facility] [address] [facility] [place] [address] Edith Oropeza APRN Medication Refill 06/11/19 24 Orders Only [facility] [place] [facility] [address] [facility] [place] [address] Thelma Russell RN Uncontrolled type 2 diabetes mellitus with hyperglycemia (HCC) 06/11/19 24 9:00 AM EDT Office Visit [facility] [place] [facility] [address] [place] [place] [address] Oswaldo Harry MD Essential hypertension (Primary Dx); Weakness of both arms; Uncontrolled type 2 diabetes mellitus with hyperglycemia (HCC) 06/10/19 24 Refill [facility] [place] [facility] [address] [facility] [place] [address] Gross, Viral V, DO Medication Refill 06/09/19 24 Refill [facility] [place] [facility] [address] [place] [place] [address] Gross, Viral V, DO Medication Refill 06/07/19 24 9:30 PM EDT - 06/08/19 24 12:58 AM EDT Emergency [facility] [address] [place] [address] Piedad Jimenez MD Interscapular pain (Primary Dx) Discharge Disposition: Home or Self Care 06/07/19 24 Travel 06/06/19 24 3:35 PM EDT - 06/06/19 24 11:59 PM EDT Hospital Encounter [facility] Ultrasound [address] [place] [address] Abel Hernandez MD Stage 3b chronic kidney disease (HCC) Discharge Disposition: Home or Self Care 06/05/19 24 5:10 PM EDT Office Visit [facility] [place] [facility] [address] [place] [address] Edith Oropeza APRN Abscess of buttock (Primary Dx); Other forms of angina pectoris 06/04/19 24 Orders Only [facility] [place] [address] [place] [address] Abel Hernandez MD Stage 3b chronic kidney disease (HCC) (Primary Dx) 06/04/19 24 1:00 PM EDT Office Visit [facility] [place] [address] [place] [address] Abel Hernandez MD Stage 3b chronic kidney disease (HCC) (Primary Dx); 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); HTN (hypertension), benign; Edema due to hypervolemia 05/25/19 24 Refill [facility] [place] [facility] [address] [facility] [place] [address] Edith Oropeza APRN Medication Refill 05/20/19 24 Refill [facility] [place] [facility] [address] [facility] [place] [address] Gross, Viral V, DO Medication Refill 05/14/19 24 Refill [facility] [place] [facility] [address] [facility] [place] [address] Gross, Viral V, DO Medication Refill 05/13/19 24 10:37 AM EST - 05/13/19 24 11:59 PM EST Hospital Encounter [facility] [place] [facility] [address] [facility] [place] [address] Mixed hyperlipidemia; Congestive heart failure, unspecified HF [...] Home or Self Care 05/05/19 [address] [address] Gross, Viral V, DO Medication Refill 04/23/19 24 Refill [facility] [place] [address] [facility] [address] [place] [phone] Sapphire Munguia MD Medication Refill 04/23/19 [address] [place] [address] Gross, Viral V, DO Medication Refill 04/23/19 [address] [address] Edith Oropeza APRN Medication Refill 04/11/19 24 4:30 PM EST Office Visit [address] [place] [address] Gross, Viral V, DO Irritable bowel [...] unspecified whether stage 3a or 3b CKD ([facility]) 03/30/19 24 Patient Outreach [address] [address] Bryanna Mitchell, RN CM-Medication Assistance 03/29/19 24 Patient Outreach [address] [place] [address] Bryanna Mitchell, RN CM- Telephonic Outreach; Care Transition; CM-Medication Assistance 03/27/19 24 Refill [facility] [place] [facility] [address] [facility] [place] [address] Gross, Viral V, DO Medication Refill 03/20/19 24 Refill [facility] [place] [place] [address] Edith Oropeza APRN Medication Refill 03/19/19 24 Orders Only [facility] [place] [address] [place] [address] Migdalia Corcoran RMA Coronary artery disease involving northway heart without angina pectoris, unspecified vessel or lesion type (Primary Dx); Chest pain, unspecified type 03/16/19 24 Patient Outreach [address] [place] [address] Bryanna Mitchell, JAMISON CM- Telephonic Outreach; Care Transition; CM-Medication Assistance; -SDSC 03/07/20 23 Refill [facility] [address] [facility] [place] [address] Gross, Viral V, DO Medication Refill 03/06/20 23 Refill [facility] [place] [place] [address] Gross, Viral V, DO Medication Refill 02/23/20 23 Patient Outreach [address] [place] [address] Thelma Russell, JAMISON CM-Medication Assistance 02/21/20 23 5:30 PM EST Office Visit [address] [place] [address] Gross, Viral V, DO Degenerative disc disease, lumbar (Primary Dx); Lumbar radiculopathy, chronic; Generalized osteoarthritis of multiple sites; Type 2 diabetes mellitus with diabetic peripheral angiopathy without gangrene, without long-term current use of insulin (HCC); Well adult exam 02/20/20 23 Patient Outreach [facility] [address] [place] [address] Gross, Viral V, DO Central Patient Navigator Outreach (AWV questionnaire) 02/20/20 23 8:58 AM EST - 02/20/20 11:59 PM EST Hospital Encounter [facility] [place] [facility] [address] [facility] [place] [address] Dyslipidemia associated with type 2 diabetes mellitus (HCC); Uncontrolled type 2 diabetes mellitus with hyperglycemia (HCC); Pure hypercholesterolemia Discharge Disposition: Home or Self Care 02/15/20 23 Refill [facility] [place] [facility] [address] [facility] [place] [address] Gross, Viral V, DO Medication Refill 02/13/20 23 Patient Outreach [facility] [address] [place] [address] Gross, Viral V, DO Central Patient Navigator Outreach (A1c) 02/12/20 23 Refill [facility] [place] [facility] [address] [facility] [place] [address] Gross, Viral V, DO Medication Refill 02/12/20 23 Refill [facility] [place] [facility] [address] [facility] [place] [address] Edith Oropeza APRN Medication Refill 02/10/20 23 Refill [facility] [place] [facility] [address] [facility] [place] [address] Gross, Viral V, DO Medication Refill 02/03/20 23 Refill [facility] [place] [facility] [place] [address] Gross, Viral V, DO Medication Refill 01/31/20 23 Telephone [facility] [place] [facility] [address] [facility] [place] [address] Gross, Viral V, DO Results (mri) 01/13/20 23 Refill [facility] [place] [facility] [address] [facility] [place] [address] Edith Oropeza APRN Medication Refill 01/13/20 [address] [address] Edith Oropeza APRN Medication Refill 12/31/[address] [address] Gross, Viral V, DO Medication Refill 12/29/[address] [address] Gross, Viral V, DO Medication Refill 12/28/[address] [address] Gross, Viral V, DO Referral (pain specialist ) 12/26/[address] [address] Gross, Viral V, DO Medication Refill 12/21/[address] [address] Gross, Viral V, DO Samples (ozempic) 12/15/19 Patient Outreach [address] [address] Bryanna Mitchell RN CM- Telephonic Outreach; Care Transition; CM-Medication Assistance 12/08/[address] [address] Gross, Viral V, DO Medication Refill (torsemide (DEMADEX) 20 mg Oral Tablet 60 Tablet 1 08/24/2022 /Sig - Route: Take 1 Tablet by mouth Twice daily diuretic. - Oral //) 12/05/[address] [address] Gross, Viral V, DO Medication Management (hydroCHLOROthiazide (HYDRODIURIL) tablet 25 mg [[id number]]/Order DetailsOrdered Dose: 25 mg Route: Oral Frequency: DAILY/Admin Dose: 25 mg /Scheduled Start Date/Time: 08/19/22 0900 End Date/Time: 08/21/22 1020 First Dose: As Scheduled//torsemide (DEMADEX) 20 mg Oral Tablet 60 Tablet 1 08/24/2022 /Sig - Route: Take 1 Tablet by mouth Twice daily diuretic. - Oral ) 11/28/19 2:15 PM EDT Office Visit [facility] [address] [address] Vladimir Stewart MD Type 2 diabetes mellitus with both eyes affected by mild nonproliferative retinopathy without macular edema, without long-term current use of insulin (HCC) (Primary Dx); Age-related nuclear cataract of both eyes; Cortical age-related cataract of both eyes; Refractive error 11/09/19 9:15 AM EDT Office Visit [facility] [address] [address] Sapphire Munguia MD Coronary artery disease involving northway heart without angina pectoris, unspecified vessel or lesion type (Primary Dx); Mixed hyperlipidemia; Congestive heart failure, unspecified HF chronicity, unspecified heart failure type ([facility]); S/P CABG x 3 11/03/19 23 Refill [facility] [place] [address] Gross, Viral V, DO Medication Refill 10/30/19 23 Refill [facility] [place] [address] Gross, Viral V, DO Medication Refill 10/18/19 [facility] [address] Edith Oropeza APRN Medication Refill 10/14/19 23 11:45 AM EDT - 10/14/19 11:59 PM EDT Hospital Encounter [facility] [place] [facility] 405 [place] [address] Serum potassium elevated Discharge Disposition: Home or Self Care 10/05/19 23 Orders Only [facility] [place] [facility] 405 [place] [address] Gross, Viral V, DO Serum potassium elevated (Primary Dx) 10/05/19 8:08 AM EDT - 10/05/19 11:59 PM EDT Hospital Encounter [facility] Ultrasound [address] [place] [address] Gross, Viral V, DO Thyroid mass Discharge Disposition: Home or Self Care 10/04/19 Nurse Triage [facility] [address] [place] [address] Jesusita Marie RN 10/04/19 1:56 PM EDT - 10/04/19 11:59 PM EDT Hospital Encounter [facility] [place] [facility] 405 [place] [address] Thyroid mass Discharge Disposition: Home or Self Care 10/04/19 3:00 PM EDT Office Visit [facility] [address] [facility] [address] [place] [address] Merle Kline, OD Blurred vision, bilateral (Primary Dx); Type 2 diabetes mellitus without retinopathy (HCC); 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; Combined forms of age-related cataract of right eye; Combined forms of age-related cataract of left eye 10/04/19 1:40 PM EDT Office Visit [facility] [place] [facility] [address] [place] [address] Gross, Viral V, DO Cardiomegaly (Primary Dx); Thyroid mass 09/29/19 11:50 AM EDT Office Visit [facility] [place] [facility] [address] [place] [address] Edith Oropeza APRN Sore throat (Primary Dx); Runny nose; Uncontrolled type 2 diabetes mellitus with hyperglycemia (HCC) 09/28/19 1:00 PM EDT Office Visit [facility] [address] [facility] [address] [place] [address],[place] Dyslipidemia associated with type 2 diabetes mellitus (HCC) (Primary Dx); Uncontrolled type 2 diabetes mellitus with hyperglycemia (HCC) 09/28/19 8:00 AM EDT Office Visit [facility] [address] [address] Sapphire Munguia MD Coronary artery disease involving northway heart without angina pectoris, unspecified vessel or lesion type (Primary Dx); Mixed hyperlipidemia; Congestive heart failure, unspecified HF chronicity, unspecified heart failure type (HCC); S/P CABG x 3 09/24/19 11:56 AM EDT - 09/24/19 11:59 PM EDT Hospital Encounter [facility] [place] [id number] Mixed hyperlipidemia; Coronary artery disease involving northway heart without angina pectoris, unspecified vessel or lesion type; Ischemic heart disease; S/P CABG x 3; Muscle cramps; Encounter for vitamin deficiency screening; Vitamin D deficiency Discharge Disposition: Home or Self Care 09/23/[address] [address] Renato Viral V, DO Follow-up (Pt adv that labs have been ordered) 09/23/19 Patient Outreach [address] [address] Thelma Russell RN Care Transition; CM- Telephonic Outreach; CM-Medication Assistance 09/21/[address] [address] Renato Viral V, DO Home Health 09/19/[address] [address] Gross, Viral V, DO Medication Management (Not on formulary please change ) 09/14/[address] [address] Gross, Viral V, DO Medication Management ( Disp Refills Start End /ketoconazole (NIZORAL) 2 % Top Cream (Discontinued) 60 g 0 02/20/2022 09/04/2022 /Sig: APPLY TO THE AFFECTED AREA(S) TOPICALLY EVERY DAY /Patient taking differently: APPLY //); Follow-up (Request CT chest done at [facility] ) 09/11/19 Refill [facility] [place] [place] [address] Gross, Viral V, DO Medication Refill 09/09/19 Telephone [facility] [place] [place] [address] Robyn Rogers, RMA Orders 09/08/19 Patient Outreach [facility] [place] [place] [address] Bryanna Mitchell, RN CM-Medication Assistance; CM- Telephonic Outreach; Care Transition 09/06/19 Telephone [facility] [place] [place] [address] Gross, Viral V, DO Home Health (FYI for doctor ) 09/05/19 3:10 PM EDT Office Visit [facility] [place] [place] [address] Bryanna Mitchell, RN Encounter for support and coordination of transition of care (Primary Dx) 09/05/19 3:00 PM EDT Office Visit [facility] [place] [place] [address] Gross, Viral V, DO CHF (congestive heart failure), NYHA class I, acute on chronic, combined (HCC) (Primary Dx); Essential hypertension; Groin hematoma, subsequent encounter 09/02/19 Telephone [facility] [place] [place] [address] Robyn Rogers, RMA Other 08/31/19 Patient Outreach [address] [place] [address] Bryanna Mitchell, RN CM- Telephonic Outreach; Care Transition; CM-Medication Assistance 08/26/19 Telephone [facility] [place] [place] [address] Gross, Viral V, DO Referral (Diabetic education ) 08/26/19 Telephone [facility] Diabetes [place] [address] [address] [facility] [address] [place] [phone] Agustin Graves MD Patient Education 08/26/19 Patient Outreach [facility] [address] [place] [address] Bobby Reynoso BA, COS Referral 08/26/19 Patient Outreach [facility] [address] [place] [address] Madeline Bruno RN Hospital Follow Up; Care Transition; CM - Medication Reconciliation; CM-Resource Coordination; CM- Consultation 08/19/19 9:42 PM EDT - 08/25/19 4:26 PM EDT Hospital Encounter [facility] [address] [place] [id number] Leo Clemente MD Discharge Disposition: Home or Self Care 08/19/19 Travel 08/19/19 4:58 PM EDT - 08/19/19 9:04 PM EDT Emergency [facility] [address] [facility] [place] [id number] Jessica Wallis MD Renard, Cruff, MD Acute right-sided congestive heart failure (HCC) (Primary Dx); Fluid retention; Dyspnea, unspecified type Discharge Disposition: Discharge/Readmit 08/19/19 Telephone [facility] [place] [facility] [address] [place] [address] Carlos A Gross V, DO Advice Only (Retaining water) 08/19/19 23 Orders Only [facility] [place] [id number] Sapphire Munguia MD Congestive heart failure, unspecified HF chronicity, unspecified heart failure type (HCC) (Primary Dx) 08/19/19 23 Orders Only Adult Med 1 [place] [address] Nery Yin APRN 08/19/19 2:10 PM EDT Office Visit [facility] [place] [facility] [address] [place] [address] Gross, Viral V, DO Localized enlarged lymph nodes (Primary Dx); Inguinal lymphadenopathy; Essential hypertension; Acute bronchitis, unspecified organism 08/18/19 Telephone [facility] [place] [address] [address] Gross, Viral V, DO Samples (semaglutide (OZEMPIC) 1 mg/dose) 08/18/19 Telephone [facility] [place] [address] Gross, Viral V, DO Appointment Needed (ed f/u [facility]/ knot below waste line/patient states it is painful ) 08/16/19 [place] [address] Sapphire Munguia MD Other (pt calling in mgs of meds) 08/15/19 Travel 08/15/19 11:15 AM EDT - 08/15/19 11:59 PM EDT Hospital Encounter [facility] [address] [place] [address] [address] [place] [address] Rosie Gao APRN Coronary artery disease involving northway heart without angina pectoris, unspecified vessel or lesion type; Mixed hyperlipidemia; Ischemic heart disease; S/P CABG x 3; Hematoma of groin, initial encounter; Other specified complications of surgical and medical care, not elsewhere classified, initial encounter Discharge Disposition: Home or Self Care 08/15/19 10:00 AM EDT Office Visit [facility] [address] [address] Rosie Gao PIPING [employer]RAFTER Coronary artery disease involving northway heart without angina pectoris, unspecified vessel or lesion type (Primary Dx); Mixed hyperlipidemia; Ischemic heart disease; S/P CABG x 3; Other specified complications of surgical and medical care, not elsewhere classified, initial encounter; Congestive heart failure, unspecified HF chronicity, unspecified heart failure type (HCC) 08/12/19 10:00 AM EDT Office Visit [facility] [place] [address] Renato Viral V, DO Uncontrolled type 2 diabetes mellitus with hyperglycemia (HCC) (Primary Dx); Essential hypertension; History of TIA (transient ischemic attack); Acute on chronic systolic congestive heart failure, NYHA class 2 (HCC) 07/14/[address] [address] Gross, Viral V, DO Medication Refill 07/05/[address] [address] Edith Oropeza APRN Medication Refill 06/23/19 1:20 PM EDT Office Visit [facility] [place] [address] [place] [address] Lyle Solo MD Mass of right parotid gland (Primary Dx) 06/22/19 Patient Outreach [address] [address] Bryanna Mitchell RN CM- Telephonic Outreach; Care Transition; CM-Medication Assistance 06/10/19 Travel 06/10/19 4:50 PM EDT - 06/10/19 6:27 PM EDT Emergency [facility] [address] [facility] [place] [address] Peggy Lama DO Lip laceration, initial encounter (Primary Dx); Facial contusion, initial encounter; Mass of right parotid gland Discharge Disposition: Home or Self Care 05/28/19 9:06 AM EDT - 05/28/19 11:59 PM EDT Hospital Encounter [facility] [place] [address] Uncontrolled type 2 diabetes mellitus with hyperglycemia (HCC); Dyslipidemia associated with type 2 diabetes mellitus (HCC); Screening for thyroid disorder; Screening for prostate cancer Discharge Disposition: Home or Self Care 05/27/19 11:20 AM EDT Office Visit [address] [address] Gross, Viral V, DO Screening for thyroid disorder (Primary Dx); Atherosclerotic heart disease of northway coronary artery with other forms of angina pectoris; Fluid retention in legs; Essential hypertension; Gastroesophageal reflux disease with esophagitis, unspecified whether hemorrhage; Uncontrolled type 2 diabetes mellitus with hyperglycemia (HCC); Dyslipidemia associated with type 2 diabetes mellitus (HCC); History of TIA (transient ischemic attack); Chronic bilateral low back pain with right-sided sciatica; Screening for prostate cancer 05/24/19 Telephone [facility] [address] [place] [id number] Frederic Almaguer APRN Other (WORK COMP, NOT WORK COMP) 05/23/19 Telephone [facility] [address] [facility] [address] [place] [address] Frederic Almaguer APRN Knee Pain 05/20/19 8:15 AM EST Ancillary Procedure [facility] [address] [place] [id number] Frederic Almaguer APRN Chronic pain of right knee 05/20/19 8:00 AM EST Office Visit [place] [id number] Frederic Almaguer APRN Osteoarthritis of patellofemoral joints of both knees (Primary Dx); Primary osteoarthritis of left knee; Chronic pain of right knee 05/01/19 Telephone [facility] [address] [place] [id number] Frederic Almaguer APRN Other (WORK COMP, NOT WORK COMP) 04/28/19 1:15 PM EST Ancillary Procedure [facility] [address] [place] [id number] Frederic Almaguer APRN Acute pain of left knee 04/28/19 1:00 PM EST Office Visit [address] [address] Frederic Almaguer APRN Primary osteoarthritis of left knee (Primary Dx); Acute pain of left knee 04/26/19 Travel 04/26/19 7:16 PM EST - 04/26/19 8:53 PM EST Emergency [facility] [address] [facility] [place] [address] Peggy Lama, DO Injury of left knee, initial encounter (Primary Dx) Discharge Disposition: Home or Self Care 04/20/19 2:15 PM EST Office Visit [facility] [address] [place] [address] Carlie Connolly APRN Lumbar radiculopathy (Primary Dx); Chronic bilateral low back pain with right-sided sciatica; Lumbar spondylosis; Class 2 severe obesity due to excess calories with serious comorbidity and body mass index (BMI) of 35.0 to 35.9 in adult (HCC); Sacroiliitis; Cervical spondylosis 04/11/19 1:45 PM EST Office Visit [facility] [place] [id number] Sapphire Munguia MD Coronary artery disease involving northway heart without angina pectoris, unspecified vessel or lesion type (Primary Dx); Mixed hyperlipidemia; Ischemic heart disease; S/P CABG x 3 04/10/[address] [address] Edith Oropeza APRN Medication Refill 04/07/19 9:15 AM EST Office Visit [facility] [address] [address] Vladimir Stewart MD Diabetes mellitus without complication ([facility]) (Primary Dx); Combined form of age-related cataract, left eye; Combined form of age-related cataract, right eye; KCS (keratoconjunctivitis sicca) ([facility]); Refractive error 03/27/[address] [address] GrossCarlos A torres V, DO Samples (Ozempic) 03/23/19 23 Patient Outreach [address] [address] Bryanna Mitchell RN CM- Telephonic Outreach; Care Transition; CM-Medication Assistance 03/20/19 10:05 AM EST Ancillary Procedure [facility] [address] [address] Gross, Viral V, DO Atherosclerotic heart disease of northway coronary artery with other forms of angina pectoris; Fluid retention in legs; Angina of effort Discharge Disposition: Home or Self Care 03/20/19 9:40 AM EST Office Visit [facility] [place] [address] [address] Gross, Viral V, DO Fluid retention in legs (Primary Dx); Sacroiliitis; Dyslipidemia associated with type 2 diabetes mellitus ([facility]); Class 2 severe obesity due to excess calories with serious comorbidity and body mass index (BMI) of 35.0 to 35.9 in adult ([facility]); Atherosclerotic heart disease of northway coronary artery with other forms of angina pectoris; Angina of effort 03/14/19 Telephone [facility] [place] [address] [address] Gross, Viral V, DO Medication Management (ozempic) 03/07/20 11:45 AM EST Office Visit [facility] [address] [place] [address] Jeffy Fuentes MD Coronary artery disease involving northway heart without angina pectoris, unspecified vessel or lesion type (Primary Dx); Mixed hyperlipidemia; Chest pain, unspecified type; Ischemic heart disease; S/P CABG x 3 03/06/20 22 Refill [facility] [place] [address] [address] Gross, Viral V, DO Medication Refill 03/06/20 22 [facility] [address] Gross, Viral V, DO Medication Refill 03/04/20 22 Refill [facility] [address] [facility] [address] [place] [address] Drea Acuna APRN Medication Refill 02/29/20 22 Telephone [facility] [place] [address] [place] [address] Jeffy Fuentes MD Advice Only (Chest pain ) 02/21/20 22 Patient Outreach [facility] [place] [address] [place] [address] Patsy Lopez, RN Hospital Follow Up; Care Transition 02/21/20 Telephone [facility] [address] [place], [place] [id number] Daphne Cope RN 02/21/20 Refill [facility] [place] [facility] [address] [place] [address] Gross, Viral V, DO Medication Refill 02/17/20 22 12:11 PM EST - 02/18/20 22 12:37 PM EST Hospital Encounter [place] [address] Sapphire Munguia MD Chest pain, unspecified type; Shortness of breath; Dyslipidemia associated with type 2 diabetes mellitus (HCC) Discharge Disposition: Home or Self Care 02/17/20 22 Travel 02/17/20 22 1:30 PM EST - 02/17/20 22 2:30 PM EST Surgery [facility] [employer] [facility] [place] [id number] Sapphire Munguia MD CORONARY ANGIOGRAM WITH GRAFTS / CARDIAC CATHETERIZATION 02/15/20 22 Refill [facility] [place] [facility] [address] [place] [address] Gross, Viral V, DO Medication Refill 02/14/20 22 11:03 AM EST - 02/14/20 22 11:59 PM EST Hospital Encounter [facility] [place] [facility] [address] [place] [address] Essential hypertension; Screening for prostate cancer; Chest pain, unspecified type; SOB (shortness of breath) Discharge Disposition: Home or Self Care 02/11/20 22 Orders Only [facility] [place] [address] [place] [address] Sapphire Munguia MD Chest pain, unspecified type (Primary Dx); SOB (shortness of breath) 02/10/20 22 3:15 PM EST Office Visit [facility] [place] [address] [place] [address] Jeffy Fuentes MD Chest pain, unspecified type (Primary Dx); Ischemic heart disease; S/P CABG x 3; Angina of effort 02/04/20 Patient Outreach [facility] [place] [facility] [address] [place] [address] Bryanna Mitchell RN CM- Telephonic Outreach; Care Transition; CM-Medication Assistance 02/01/20 Patient Outreach [facility] [address] [place] [address] Gross, Viral V, DO Central Order Completion Outreach (colon) 01/31/[address] [address] Gross, Viral V, DO Medication Refill 01/31/20 Telephone [facility] [place] [address] Gross, Viral V, DO Samples (Ozempic) 01/28/20 10:45 AM EST Office Visit [facility] [address] [place] [address] Carlos Langston MD Lumbar spondylosis (Primary Dx); Chronic bilateral low back pain with right-sided sciatica 01/24/20 Telephone [facility] [place] [facility] [address] [place] [address] Gross, Viral V, DO Prior Authorization 01/20/20 Refill [facility] [place] [facility] [address] [place] [address] Gross, Viral V, DO Medication Refill 01/18/20 Refill [facility] [address] [place] [address] Drea Acuna APRN Medication Refill 01/13/20 22 Travel 01/13/20 1:43 PM EDT - 01/13/20 11:59 PM EDT Hospital Encounter [facility] Imaging [address] [place] [address] Carlie Connolly APRN Discharge Disposition: Home or Self Care 01/07/20 Patient Outreach [facility] [place] [facility] [address] [facility] [place] [address] Bryanna Mitchell, RN CM- Telephonic Outreach; Care Transition; CM-Medication Assistance 01/04/20 Orders Only [address] [address] Helena Garay MA Encounter for long-term (current) use of high-risk medication 01/04/20 9:45 AM EDT Office Visit [address] [address] Drea Acuna APRN Chronic bilateral low back pain with right-sided sciatica (Primary Dx); Encounter for long-term (current) use of high-risk medication; Lumbar radiculopathy; Degenerative disc disease, lumbar; Spondylosis of lumbar region without myelopathy or radiculopathy 01/03/20 Patient Outreach [facility] [place] [facility] [address] [place] [address] Thelma Russell RN CM-Medication Assistance; Care Transition; Care Management - Face To Face 01/03/20 11:00 AM EDT Office Visit [facility] [place] [address] [place] [address] Edith Oropeza APRN Viral URI (Primary Dx); Neck pain; Runny nose 12/30/19 Travel 12/28/19 Patient Outreach [facility] [place] [facility] [address] [place] [address] Bryanna Mitchell, JAMISON CM- Telephonic Outreach; Care Transition; CM-Medication Assistance 12/28/[address] [address] Snow Dove MA Other 10/18/20 22 Telephone [facility] [place] [facility] [address] [facility] [place] [address] Gross, Viral V, DO Other (Back claim ) 12/27/19 Telephone [facility] [place] [address] [facility] [address] [place] [address] Ely, Agustin Dye MD Samples 12/27/19 Telephone [facility] [place] [facility] [address] [place] [address] Gross, Viral V, DO Samples (ozempic) 12/23/19 Orders Only SE[facility] [address] [address] Edith Oropeza APRN Uncontrolled type 2 diabetes mellitus with hyperglycemia (HCC) (Primary Dx) 12/21/19 2:42 PM EDT - 12/21/19 11:59 PM EDT Hospital Encounter [facility] [place] [facility] [address] [place] [address] Essential hypertension; Night sweats; Uncontrolled type 2 diabetes mellitus with hyperglycemia (HCC) Discharge Disposition: Home or Self Care 12/21/19 1:40 PM EDT Office Visit [facility] [place] [address] [place] [address] Gross, Viral V, DO Other eczema (Primary Dx); Essential hypertension; Night sweats; Lumbar radiculitis; Sciatica of right side 12/20/19 22 Refill [facility] [place] [facility] [address] [place] [address] Gross, Viral V, DO Medication Refill 12/17/19 22 Telephone [facility] [place] [facility] [address] [place] [address] Gross, Viral V, DO Paperwork/forms (handicap placard) 12/15/19 22 Telephone [facility] [address] [address] Emerson Scanlon MA Anticoagulation (clopidogreL (PLAVIX) 75 mg Oral Tablet ) 12/15/19 11:45 AM EDT Office Visit [facility] [address] [place] [address] Carlie Connolly APRN Degenerative disc disease, lumbar (Primary Dx); Chronic bilateral low back pain with right-sided sciatica; Lumbar radiculopathy; Spondylosis of lumbar region without myelopathy or radiculopathy; Anxiety due to invasive procedure; Class 2 severe obesity due to excess calories with serious comorbidity and body mass index (BMI) of 35.0 to 35.9 in adult (HCC) 12/08/19 22 Refill [facility] [place] [facility] [address] [place] [address] Gross, Viral V, DO Medication Refill 12/08/19 22 Refill [facility] [place] [facility] [address] [place] [address] Gross, Viral V, DO Medication Refill 12/07/19 22 Refill [facility] [place] [facility] [address] [facility] [place] [address] Gross, Viral V, DO Medication Refill 12/06/19 22 Travel 12/06/19 22 8:42 AM EDT - 12/06/19 11:59 PM EDT Hospital Encounter [facility] MRI [address] [place] [address] Drea Acuna APRN Chronic bilateral low back pain with right-sided sciatica Discharge Disposition: Home or Self Care 11/24/19 Telephone [facility] [place] [facility] [address] [facility] [place] [address] Gross, Viral V, DO Follow-up (pt called with feedback ) 11/23/19 3:30 PM EDT Office Visit [facility] [place] [address] [facility] [place] [address] Gross, Viral V, DO Lumbar radiculitis (Primary Dx); Screening for colon cancer; Sciatica of right side; Uncontrolled type 2 diabetes mellitus with hyperglycemia (HCC); Well adult exam 11/19/19 22 Telephone [facility] [place] [facility] [address] [place] [address] Gross, Viral V, DO Symptom Call 11/17/19 22 Telephone [facility] [address] [place] [address] Carlos Langston MD Other (Continued increase pain) 11/16/19 Patient Outreach [facility] [address] [place] [address] Betty Hassan BS, COS ED Follow-Up Call 11/16/19 1:30 PM EDT Office Visit [address] [address] Drea Acuna APRN Chronic bilateral low back pain with right-sided sciatica (Primary Dx); Sacroiliitis 11/15/19 2:09 PM EDT - 11/15/19 22 2:38 PM EDT Emergency [facility] [address] [place] [address] Jessica Wallis MD Acute exacerbation of chronic low back pain (Primary Dx) Discharge Disposition: Home or Self Care 10/30/19 22 Refill [facility] [place] [facility] [address] [place] [address] Gross, Viral V, DO Medication Refill 10/26/19 22 Refill [facility] [place] [facility] [address] [place] [address] Gross, Viral V, DO Medication Refill 10/24/19 22 Refill [facility] [place] [facility] [address] [place] [address] Gross, Viral V, DO Medication Refill 10/21/19 22 Patient Outreach [facility] [address] [place] [address] Gross, Viral V, DO Central Order Completion Outreach (cologuard) 10/21/19 22 9:15 AM EDT Office Visit [facility] [place] [address] [place] [address] Nikunj Laboy, DPM Bunionette of right foot (Primary Dx); Pain in right foot 10/13/[address] [address] Gross, Viral V, DO Medication Refill 10/05/19 Patient Outreach [facility] [address] [place] [address] Betty Hassan BS, COS ED Follow-Up Call 10/04/19 Travel 10/04/19 4:32 PM EDT - 10/04/19 8:38 PM EDT Emergency [facility] [address] [place] [address] Philip Phillip MD Fall, initial encounter (Primary Dx); Strain of lumbar region, initial encounter; Thoracic myofascial strain, initial encounter Discharge Disposition: Home or Self Care 09/28/[address] [address] Shell Navarro RMA Central Order Completion Outreach 09/23/19 11:30 AM EDT Office Visit [facility] [address] [address] Nikunj Laboy, DPM Bunionette of right foot (Primary Dx); Metatarsus adductus of both feet; Diabetic polyneuropathy associated with type 2 diabetes mellitus (HCC); Toe pain, right; Ulcer of right foot, limited to breakdown of skin (HCC) 09/09/19 22 8:00 AM EDT Office Visit [facility]ry [address] [address] Nikunj Laboy, IVON Diabetic polyneuropathy associated with type 2 diabetes mellitus (HCC) (Primary Dx); Hammer toe of right foot; Metatarsus adductus of both feet; Bunionette of right foot 09/08/19 22 Refill [address] [address] [address] Gross, Viral V, DO Medication Refill 09/08/19 22 Refill [place] [phone] Gross, Viral V, DO Medication Refill 08/30/19 10:45 AM EDT Ancillary Procedure [facility] [place] [address] Ulcer of right foot with fat layer exposed (HCC); Diabetic polyneuropathy associated with type 2 diabetes mellitus (HCC); Hammer toe of right foot; Toe pain, right 08/30/19 9:30 AM EDT Office Visit [facility] [place] [id number] Eloy Carter DPM Ulcer of right foot with fat layer exposed (HCC) (Primary Dx); Diabetic polyneuropathy associated with type 2 diabetes mellitus (HCC); Cellulitis of toe of left foot; Hammer toe of right foot; Toe pain, right; Metatarsus adductus of right foot 08/23/19 3:50 PM EDT Office Visit [address] [address] Gross, Viral V, DO Obesity, Class I, BMI 30-34.9 (Primary Dx); Essential hypertension; Dyslipidemia associated with type 2 diabetes mellitus (HCC); Gastroesophageal reflux disease with esophagitis, unspecified whether hemorrhage; Screening for prostate cancer 08/23/19 11:30 AM EDT Office Visit [facility] [place] [address] [place] [address] Jeffy uFentes MD S/P CABG x 3 (Primary Dx) 08/20/19 22 Travel 08/20/19 8:44 AM EDT - 08/20/19 11:59 PM EDT Hospital Encounter [facility] [address] [place] [address] Jeffy Fuentes MD SOB (shortness of breath); Ischemic heart disease; S/P CABG x 3 Discharge Disposition: Home or Self Care 06/08/20 22 1:15 PM EDT Office Visit [facility] [place] [address] [place] [address] Jasper Tabares DPM Blister of right foot, initial encounter (Primary Dx); Ulcer of right foot, limited to breakdown of skin (HCC); Uncontrolled type 2 diabetes mellitus with hyperglycemia (HCC) 08/17/19 22 Refill [facility] [place] [address] [place] [address] Renato Viral V, DO Medication Refill (need several meds refilled.) 08/17/19 22 11:20 AM EDT Office Visit [facility] [place] [address] [place] [address] Oswaldo Harry MD Right foot pain (Primary Dx) 08/11/19 22 Refill [facility] [place] [address] Renato Viral V, DO Central Patient Navigator Outreach (Med refill 1st) 08/02/19 22 Orders Only [facility] [address] [place] [address] Gross, Viral V, DO Screening for colon cancer; Screening for cancer of the rectum 07/13/19 22 9:15 AM EDT Office Visit [address] [place] [address] Araceli Garibay APRN Cervical spondylosis (Primary Dx); DDD (degenerative disc disease), cervical; Degenerative disc disease, lumbar; Lumbar radiculopathy 07/09/19 22 Travel 07/09/19 22 8:30 AM EDT Office Visit [facility] [address] [address] Jeffy Fuentes MD SOB (shortness of breath) (Primary Dx); Ischemic heart disease; S/P CABG x 3; Heart murmur 07/09/19 22 1:54 PM EDT - 07/09/19 22 11:59 PM EDT Hospital Encounter [facility] [facility] [address] [place] [address] Drea Acuna APRN Cervical spondylosis Discharge Disposition: Home or Self Care 06/25/19 22 Travel 06/25/19 22 1:29 PM EDT - 06/25/19 11:59 PM EDT Hospital Encounter [facility] [address] [facility] 1 [address] 4th Floor [address] [place] [address] Drea Acuna APRN Sacroiliitis Discharge Disposition: Home or Self Care 06/24/19 1:15 PM EDT Office Visit [facility] [address] [facility] [address] [place] [address] Vladimir Stewart MD Diabetes mellitus without complication (HCC) (Primary Dx); KCS (keratoconjunctivitis sicca) (HCC) 06/21/19 10:40 AM EDT Office Visit [facility] [address] [address] Agustin Graves MD Dyslipidemia associated with type 2 diabetes mellitus (HCC) (Primary Dx); Vitamin D deficiency; Vitamin B12 deficiency 06/16/19 Travel 06/16/19 7:47 AM EDT - 06/16/19 11:59 PM EDT Hospital Encounter [facility] [place] [facility] [address] [place] [address] Dyslipidemia associated with type 2 diabetes mellitus (HCC); Vitamin D deficiency; Vitamin B12 deficiency Discharge Disposition: Home or Self Care 06/15/19 22 Telephone [facility] [address] [employer] [address] [address] Agustin Graves MD Labs Only (reminder call) 06/04/19 22 Telephone [facility] [place] [facility] [address] [place] [address] Gross, Viral V, DO Medication Management 05/31/19 22 10:45 AM EDT Office Visit [facility] [address] [place] [address] Drea Acuna APRN Sacroiliitis (Primary Dx); Cervical spondylosis; DDD (degenerative disc disease), cervical; Degenerative disc disease, lumbar 05/27/19 22 Refill [facility] [place] [facility] [address] [facility] [place] [address] Gross, Viral V, DO Medication Refill 05/26/19 22 Refill [facility] [place] [facility] [address] [facility] [place] [address] Gross, Viral V, DO Medication Refill 05/25/19 22 Telephone [facility] [address] [place] [address] Drea Acuna APRN Results (MRI) 05/23/19 22 Orders Only [facility] [address] [address] Drea Acuna APRN Cervical spondylolysis (Primary Dx); Cervical spondylosis 05/21/19 7:43 AM EST - 05/21/19 11:59 PM EST Hospital Encounter [facility] [place] [facility] [address] [facility] [place] [address] Diarrhea, unspecified type Discharge Disposition: Home or Self Care 05/20/19 Travel 05/20/19 1:10 PM EST Office Visit [facility] [place] [facility] [address] [facility] [place] [address] Ruthy Montaño MD Diarrhea, unspecified type (Primary Dx) 05/19/19 22 Refill [facility] [place] [facility] [address] [facility] [place] [address] Gross, Viral V, DO Medication Refill 05/14/19 22 Orders Only [facility] [place] [facility] [address] [facility] [place] [address] Edith Oropeza APRN Uncontrolled type 2 diabetes mellitus with hyperglycemia (HCC) (Primary Dx) 05/09/19 22 Telephone [facility] [place] [facility] [address] [place] [address] Gross, Viral V, DO Medication Management (metFORMIN XR) 04/29/19 22 Refill [facility] [place] [facility] [address] [place] [address] Gross, Viral V, DO Medication Refill 04/29/19 22 Travel 04/29/19 22 7:29 AM EST - 04/29/19 22 11:59 PM EST Hospital Encounter [facility] [address] [place] [address] Drea Acuna APRN DDD (degenerative disc disease), cervical Discharge Disposition: Home or Self Care 04/22/19 22 Travel 04/22/19 22 3:00 PM EST - 04/22/19 22 11:59 PM EST Hospital Encounter [facility] [place] [address] Naveen Lockwood MD Dizziness and giddiness Discharge Disposition: Home or Self Care 04/18/19 22 8:45 AM EST Office Visit [facility] [address] [place] [address] Drea Acuna APRN DDD (degenerative disc disease), cervical (Primary Dx); Lumbar radiculopathy; Degenerative disc disease, lumbar; Spondylosis of lumbar region without myelopathy or radiculopathy 04/13/19 22 Refill [facility] [address] [place] [address] Vernon Salinas MD Medication Refill 04/12/19 22 Telephone [facility] [place] [facility] [address] [place] [address] Gross, Viral V, DO Medication Management (accu chek glucometer) 04/06/19 22 3:15 PM EST Office Visit [facility] [address] [address] Naveen [place] MD Dizziness and giddiness (Primary Dx) 04/05/19 22 Travel 04/05/19 22 7:39 AM EST - 04/05/19 22 11:59 PM EST Hospital Encounter [place] [facility] [address] [facility] [address] 4[address] [place] [address] Holley Torres APRN Spondylosis of lumbar region without myelopathy or radiculopathy Discharge Disposition: Home or Self Care 04/04/19 Travel 04/04/19 9:45 AM EST Office Visit [facility] [address] [facility] [address] [place] [address] Vladimir [place] MD Diabetes mellitus without complication (HCC) (Primary Dx); KCS (keratoconjunctivitis sicca) (HCC); Floppy eyelid syndrome of both eyes; Arcus senilis of both corneas; Combined form of age-related cataract, right eye; Combined form of age-related cataract, left eye; Carotid artery insufficiency syndrome; Blurred vision 04/01/19 Telephone [facility] [place] [address] [place] [address] Gross, Viral V, DO Diabetes 04/01/19 22 Refill [facility] [place] [address] [place] [address] Gross, Viral V, DO Medication Refill 03/29/19 22 Telephone [facility] [place] [address] [place] [address] Rosie May RMA Prior Authorization 03/19/19 22 Refill [facility] [address] [place] [address] Omi Daly DO Medication Refill 03/16/19 22 Telephone [facility] [address] [facility] [address] [place] [address] Agustin Graves MD [facility] 03/14/19 22 Telephone [facility] [place] [facility] [address] [place] [address] Gross, Viral V, DO Prior Authorization (COLOGUARD ) 03/14/19 Travel 03/14/19 8:40 AM EST Office Visit [facility] 1500 [facility] [address] [place] [address] Agustin Graves MD Dyslipidemia associated with type 2 diabetes mellitus (HCC) (Primary Dx); Vitamin D deficiency; Vitamin B12 deficiency 03/09/20 21 Refill [facility] [place] [facility] [address] [place] [address] Gross, Viral V, DO Medication Refill 03/09/20 21 Travel 03/09/20 8:32 AM EST - 03/09/20 11:59 PM EST Hospital Encounter [facility] [place] [facility] [address] [place] [address] Dyslipidemia associated with type 2 diabetes mellitus (HCC); Vitamin D deficiency; Vitamin B12 deficiency Discharge Disposition: Home or Self Care 03/07/20 [address] [place] [address] Agustin Graves MD Labs Only 02/17/[address] [place] [address] Carlos Langston MD Anticoagulation (Plavix ) 02/16/20 21 Patient Outreach [facility] [address] [place], [place] [id number] Renato Viral V, DO Results (IRIS) 02/15/20 21 Travel 02/15/20 21 9:30 AM EST Office Visit [facility] [facility] [address] [place] [address] Holley Torres APRN Lumbar radiculopathy (Primary [...] 21 1:10 PM EST Office Visit [facility] [address] [place] [address] Oswaldo Harry MD Abscess (Primary Dx); Type 2 diabetes mellitus without complication, unspecified whether fci insulin use (HCC) 02/11/20 21 Refill [facility] 100 [place] [address] Dejuan Rosario APRN Medication Refill 02/10/20 21 Refill [facility] [address] [place] [address] Carlos A Gross V, DO Medication Refill 02/09/20 21 Travel 02/09/20 21 9:18 AM EST - 02/09/20 11:59 PM EST Hospital Encounter [facility] [address] 1 [address] 4th Floor [address] [place] [address] Carlos Langston MD Lumbar radiculopathy Discharge Disposition: Home or Self Care 02/05/20 21 Refill [facility] 100 [place] [address] Omi Daly, DO Medication Refill 01/28/20 21 Telephone [facility] Diabetes [address] [place] [address] Agustin Graves MD Blood Sugar Problem (Question) 01/28/20 Orders Only [address] [place] [address] Carlos Langston MD Lumbar radiculopathy (Primary Dx) 01/28/20 21 Travel 01/28/20 21 8:45 AM EST - 01/28/20 11:59 PM EST Hospital Encounter [facility] [address] [place] [address] Drea Acuna APRN Chronic right-sided low back pain with right-sided sciatica; Degenerative disc disease, lumbar Discharge Disposition: Home or Self Care 01/16/20 21 Travel 01/16/20 12:15 PM EDT Office Visit [facility] [address] [place] [address] Dolly Lovett APRN Acute left otitis media (Primary Dx) 01/11/20 Travel 01/11/20 9:00 AM EDT Office Visit [facility] [address] [place] [address] Araceli Garibay APRN Degenerative disc disease, lumbar (Primary Dx); Lumbar radiculopathy 01/09/20 21 Refill [facility] [address] [place] [address] Gross, Viral V, DO Medication Refill 01/08/20 21 Refill [facility] [address] [facility] [place] [address] Gross, Viral V, DO Medication Refill 01/07/20 21 Telephone [facility] [address] [place] [address] Drea Acuna APRN Results (MRI-L) 01/05/20 Travel 01/05/20 8:35 AM EDT - 01/05/20 11:59 PM EDT Hospital Encounter [facility] MRI [address] [place] [address] Drea Acuna APRN Chronic right-sided low back pain with right-sided sciatica Discharge Disposition: Home or Self Care 01/04/20 Patient Outreach [facility] [address] [place] [address] Kandace Mario BA, COS ED Follow-Up Call 01/01/20 Travel 01/01/20 2:25 PM EDT - 01/01/20 3:47 PM EDT Emergency [facility] [address] [place] [address] Jay Jay Jimenez MD Acute exacerbation of chronic low back pain (Primary Dx) Discharge Disposition: Home or Self Care 12/29/19 Patient Outreach [facility] [address] [place] [address] Kandace Mario BA, SHREYAS ED Follow-Up Call 12/28/19 Travel 12/28/19 5:00 PM EDT - 12/28/19 5:49 PM EDT Emergency [facility] [address] [place], [place] [id number] Lyle Mandel MD Right-sided low back pain with bilateral sciatica, unspecified chronicity (Primary Dx) Discharge Disposition: Home or Self Care 12/21/19 Telephone [facility] [address] [place] [address] Drea Acuna APRN Anticoagulation (Plavix) 12/21/19 Travel 12/21/19 Refill [facility] [address] [place] [address] Renato Viral V, DO Medication Refill 12/21/19 1:00 PM EDT Office Visit [address] [place] [address] Drea Acuna APRN Chronic right-sided low back pain with right-sided sciatica (Primary Dx); Degenerative disc disease, lumbar 11/30/19 Travel 11/30/19 4:30 PM EDT Office Visit [facility] [address] [place] [address] Gross, Viral V, DO Uncontrolled type 2 diabetes mellitus with hyperglycemia (HCC) (Primary Dx); Screening for colon cancer; Dyslipidemia associated with type 2 diabetes mellitus (HCC); Essential hypertension; Well adult exam 11/26/19 Travel 11/26/19 8:00 AM EDT Office Visit [address] [place] [address] Agustin Graves MD Dyslipidemia associated with type 2 diabetes mellitus (HCC) (Primary Dx); Vitamin D deficiency; Vitamin B12 deficiency 11/25/19 [address] [address] Gross, Viral V, DO Medication Refill (ibuprofen (ADVIL;MOTRIN) 800 mg Oral Tablet (Discontinued)90 Tab/) 11/21/19 21 Travel 11/21/19 10:10 AM EDT - 11/21/19 11:59 PM EDT Hospital Encounter [facility] [address] [address] Dyslipidemia associated with type 2 diabetes mellitus (HCC); Vitamin D deficiency; Vitamin B12 deficiency Discharge Disposition: Home or Self Care 11/09/19 Telephone [address] [address] [address] Gross, Viral V, DO Medication Management 10/29/19 Travel 10/29/19 9:00 AM EDT Office Visit [facility] [address] [place] [address] Jeffy Fuentes MD Ischemic heart disease (Primary Dx); S/P CABG x 3 10/28/19 Refill [facility] [address] [place] [address] Dejuan Rosario APRN Medication Refill 10/20/[address] [address] Gross, Viral V, DO Medication Management (lisinopriL (PRINIVIL;ZESTRIL) 5 mg Oral Asnucy27 Tab) 10/20/19 [address] [address] Gross, Viral V, DO Medication Refill (semaglutide (OZEMPIC) 1 mg/dose (2 mg/1.5 mL), atorvastatin (LIPITOR) 80 mg Oral [id number] Tab) 10/02/19 21 Travel 07/23/20 21 4:20 PM EDT Office Visit [facility] 405 [place] [address] Gross, Viral V, DO Dyslipidemia associated with type 2 diabetes mellitus (HCC) (Primary Dx); Seasonal allergic rhinitis, unspecified trigger; Uncontrolled type 2 diabetes mellitus with hyperglycemia (HCC); Essential hypertension; Gastroesophageal reflux disease with esophagitis, unspecified whether hemorrhage; BPH with urinary obstruction; Generalized osteoarthritis of multiple sites; History of TIA (transient ischemic attack) 09/25/19 21 Refill [facility] 405 [place] [address] Gross, Viral V, DO Medication Refill 09/17/19 21 Patient Outreach [address] [address] Gross, Viral V, DO Central Patient Navigator Outreach (med refill 1) 09/16/19 21 Refill [facility] 100 [place] [address] Omi Daly, DO Medication Refill 09/07/19 21 Refill [facility] 100 [place] [address] Omi Daly, DO Medication Refill 09/01/19 21 Orders Only [facility] 405 [place] [address] Rosie May, BROOKA Seasonal allergic rhinitis, unspecified trigger; Muscle spasm 09/01/19 21 Patient Outreach [facility] [address] [place] [address] Renato Viral V, DO Central Patient Navigator Outreach (Medication Refill Appointment-1st) 09/01/19 21 Refill [facility] 100 [place] [address] Omi Daly, DO Medication Refill 08/11/19 21 Refill [facility] 100 [place] [address] Omi Daly, DO Medication Refill 08/01/19 21 Refill [facility] 100 [facility] [address] Vernon Salinas MD Medication Refill 07/28/19 21 Refill [facility] 100 [place] [address] Omi Daly, DO Medication Refill 07/28/19 Plan of Care Documentation [facility] [address] [address] 07/28/19 Travel 07/28/19 5:00 PM EDT Office Visit [facility] [address] [place] [address] Porsha Chamberlain, PT Primary osteoarthritis, right shoulder 07/23/19 Travel 07/23/19 9:15 AM EDT Office Visit [facility] [address] [place] [phone] Jeffy Fuentes MD Coronary artery disease involving northway heart without angina pectoris, unspecified vessel or lesion type (Primary Dx); S/P CABG x 3; Encounter for pre-operative cardiovascular clearance 07/15/19 Refill [facility] 100 [place] [address] Omi Daly, DO Medication Refill 07/14/19 Travel 07/14/19 8:00 AM EDT Office Visit [facility] [address] [id number] Billy Foley MD Other secondary osteoarthritis of right shoulder (Primary Dx); Complete tear of right rotator cuff, unspecified whether traumatic 07/09/19 Telephone [facility] [address] [place] [address] Gross, Viral V, DO 07/08/19 21 Refill [facility] 100 [place] [address] Omi Daly, DO Medication Refill 06/25/19 21 Refill [facility] [address] [place] [address] Malika, Omi, DO Medication Refill 06/24/19 Travel 06/24/19 10:45 AM EDT Office Visit [facility] [address] [facility] [address] [place] [address] Jeffy Fuentes MD Ischemic heart disease (Primary Dx); Coronary artery disease involving northway heart without angina pectoris, unspecified vessel or lesion type; S/P CABG x 3; Ventricular bigeminy 06/18/19 Orders Only [facility] [address] [place] [address] AndrewCammy campoverde RMA 06/17/19 8:01 AM EDT - 06/17/19 11:59 PM EDT Hospital Encounter [facility] [address] [place] [address] Encounter for screening for malignant neoplasm of prostate ; ED (erectile dysfunction) of non-organic origin; Testosterone deficiency; Decreased libido; Uncontrolled type 2 diabetes mellitus with hyperglycemia (HCC); Essential hypertension Discharge Disposition: Home or Self Care 06/16/19 Travel 06/16/19 6:10 PM EDT Office Visit [facility] [address] [place] [address] Carlos A Gross DO Testosterone deficiency (Primary Dx); ED (erectile dysfunction) of non-organic origin; Decreased libido; Uncontrolled type 2 diabetes mellitus with hyperglycemia (HCC); Essential hypertension; Encounter for screening for malignant neoplasm of prostate ; BPH with urinary obstruction 06/13/19 Travel 06/13/19 8:15 AM EDT Office Visit [facility] [address] [place] [address] Vernon Salinas MD Pre-op examination (Primary Dx); Chronic right shoulder pain 06/09/19 21 Telephone [facility] [address] [place] [address] Omi Daly DO Medication Management (Cetirizine) 06/09/19 21 Travel 06/03/19 21 Travel 05/29/19 21 Refill [facility] [address] [place] [address] Omi Daly DO Medication Refill 05/26/19 21 Travel 05/25/19 21 Telephone [facility] [address] [place] [address] Omi Daly DO Prior Authorization (OneTouch Ultra test strips ) 05/25/19 Refill [facility] [address] [place] [address] Omi Daly DO Medication Refill 05/20/19 21 Travel 05/15/19 21 Refill [facility] [address] [place] [address] Ina Overton MD Medication Refill 05/14/19 21 Refill [facility] [address] [place] [address] Omi Daly DO Medication Refill 05/14/19 21 Travel 05/14/19 21 8:10 AM EST Office Visit [facility] [address] [facility] [address] [place] [address] Agustin Graves MD Dyslipidemia associated with type 2 diabetes mellitus (HCC) (Primary Dx); Vitamin D deficiency; Vitamin B12 deficiency 05/09/19 21 9:11 AM EST - 05/09/19 21 11:59 PM EST Hospital Encounter [facility] [address] [place] [address] Vitamin B12 deficiency (Primary Dx) Discharge Disposition: Home or Self Care 05/08/19 21 11:58 AM EST - 05/08/19 21 11:59 PM EST Hospital Encounter [facility] [address] [place] [address] Dyslipidemia associated with type 2 diabetes mellitus (HCC); Vitamin D deficiency; Vitamin B12 deficiency Discharge Disposition: Home or Self Care 05/08/19 21 Travel 04/30/19 21 Orders Only [facility] [address] [place] [address] Omi Daly DO Screening for colon cancer; Screening for cancer of the rectum 04/12/19 21 Refill [facility] [address] [place] [address] Omi Daly, DO Medication Refill 04/03/19 21 Refill [facility] [address] [place] [address] Omi Daly, DO Medication Refill 03/31/19 Travel 03/23/19 21 Refill [facility] [address] [place] [address] Omi Daly, DO Medication Refill 03/21/19 21 Refill [facility] [address] [place] [address] Vernon Salinas MD Medication Refill 03/19/19 21 Telephone [facility] [address] [place] [address] Omi Daly, Medication Management (metFORMIN XR (GLUCOPHAGE-XR) 500 mg Oral Tablet Sustained Release 24 hr) 02/10/20 20 Refill [facility] [address] [place] [address] Omi Daly, DO Medication Refill 02/02/[address] [address] Dank Palacio MD No Show 02/02/20 20 Refill [facility] 100 [place] [address] Omi Daly, DO Medication Refill 01/29/20 20 Travel 01/29/20 8:45 AM EST Office Visit [facility] [address] [address] Nikunj Laboy, IVON Uncontrolled type 2 diabetes mellitus with hyperglycemia (HCC) (Primary Dx); Paronychia of great toe of left foot; Cellulitis of left foot 01/27/20 20 Refill [facility] [address] [place] [address] Omi Daly, Medication Refill 01/21/20 Travel 01/19/20 Refill [facility] [address] [place] [address] Vernon Salinas MD Medication Refill 01/19/20 Travel 01/19/20 2:40 PM EST Office Visit [facility] [address] [place] [address] Lyle Solo MD Parotid pleomorphic adenoma (Primary Dx); THAI (obstructive sleep apnea); Snoring 01/19/20 7:30 AM EST Office Visit [facility] [address] [facility] [address] [place] [address] Agustin Graves MD Dyslipidemia associated with type 2 diabetes mellitus (HCC) (Primary Dx); Vitamin D deficiency; Vitamin B12 deficiency 01/16/20 7:49 AM EST - 01/16/20 11:59 PM EST Hospital Encounter [facility] [address] [place] [address] Dyslipidemia associated with type 2 diabetes mellitus (HCC); Vitamin B12 deficiency Discharge Disposition: Home or Self Care 01/16/20 Travel 01/14/20 Refill [facility] [address] [place] [address] Omi Daly DO Medication Refill (tamsulosin (FLOMAX) 0.4 mg Oral [id number] Cap) 01/13/20 Travel 01/13/20 11:49 AM EST - 01/13/20 11:59 PM EST Hospital Encounter [facility] [place] [address] Lyle Solo MD Morgan, Stephen R, DO Parotid mass Discharge Disposition: Home or Self Care 01/09/20 Travel 01/09/20 1:42 PM EDT - 01/09/20 11:59 PM EDT Hospital Encounter [facility] [address] [place] [address] Covid19, [facility] Pre-op testing; Encounter for laboratory testing for COVID-19 virus Discharge Disposition: Home or Self Care 01/06/20 Travel 01/02/20 20 Refill [facility] [address] [place] [address] Vernon Salinas MD Medication Refill 01/01/20 Travel 01/01/20 9:00 AM EDT Office Visit [facility] [address] [place] [address] Nikunj Laboy, DPM Cellulitis of left foot (Primary Dx); Uncontrolled type 2 diabetes mellitus with hyperglycemia (HCC); Foot cramps; Paronychia of great toe of left foot 12/26/19 Patient Outreach [facility] [address] [place] [address] Alondra Menchaca, PharmD Medication Management (Adherence Outreach) 12/18/19 Telephone [facility] [address] [place] [address] Omi Daly, Referral 12/17/19 Refill [facility] [address] [place] [address] Vernon Salinas MD Medication Refill 12/15/19 Travel 12/15/19 2:40 PM EDT Office Visit [facility] [address] [address] Lyle Solo MD Parotid mass (Primary Dx); Hx of intermediate frame tender use of blood thinners 12/15/19 9:40 AM EDT Office Visit [facility] U[facility] [address] [place] [address] Alva Zelaya PA-C Urinary frequency (Primary Dx); BPH with obstruction/lower urinary tract symptoms; Incomplete emptying of bladder 12/12/19 Telephone [facility] 100 [place] [address] Omi Daly, Referral; Medication Management 12/10/19 Telephone [facility] [address] [place] [address] Omi Daly, Medication Refill 12/09/19 Telephone [facility] [address] [place] [address] Omi Daly, Referral Follow-up 12/08/19 10:00 AM EDT Office Visit [facility] [address] [place] [address] Elba Tapia, RN Encounter for support and coordination of transition of care (Primary Dx) 12/08/19 Travel 12/08/19 9:45 AM EDT Office Visit [facility] [address] [place] [address] Omi Daly, History of TIA (transient ischemic attack) (Primary Dx); Parotid mass; Essential hypertension 12/06/19 Telephone [facility] [address] [place] [address] Omi Daly, Medication Refill 12/05/19 Travel 12/04/19 Telephone [facility] [address] [place] [address] Marleen Cam, Clerical Staff Other; Procedure (US Parotid Biopsy ) 12/04/19 Patient Outreach [facility] [address] [place] [address] Sasha Messer, RN Hospital Follow Up; ED Follow-Up Call; Care Transition; CM - Medication Reconciliation 12/03/19 Orders Only Adult Med [address] [place] [address] [place] [address] Geri Garcia PAMayaC Parotid mass (Primary Dx) 12/01/19 9:23 PM EDT - 12/03/19 5:38 PM EDT Hospital Encounter [facility] [place] [address] Jordan Eduardo MD Transient ischemic attack, anterior circulation, acute (Primary Dx) Discharge Disposition: Home or Self Care 12/02/19 Travel 12/01/19 Travel 12/01/19 4:15 PM EDT - 12/01/19 8:36 PM EDT Emergency [facility] [address] [place] [address] Alma Villegas MD Adler, Jordan M, MD TIA (transient ischemic attack) (Primary Dx); Occlusion of left vertebral artery Discharge Disposition: Discharge/Readmit 11/28/19 Travel 11/28/19 8:30 AM EDT Office Visit [facility] [address] [place] [address] Omi Daly, Annual physical exam [...] EDT Hospital Encounter [facility] [address] [place] [address] Ina Overton MD BPH with obstruction/lower urinary tract symptoms Discharge Disposition: Home or Self Care 11/20/19 Travel 11/20/19 2:15 PM EDT - 11/20/19 3:30 PM EDT Surgery [facility] [address] [facility] [place] [id number] Ina Overton MD CYSTOSCOPY TRANSURETHRAL RESECTION PROSTATE - FULGURATION/EVACUATION OF CLOT 11/20/19 2:31 PM EDT Anesthesia Event [facility] [address] [facility] [place] [phone] Luis A Rodney MD Collins, Angela, PIPING DRAFTER 11/18/19 20 Travel 11/16/19 20 Travel 11/16/19 2:45 PM EDT - 11/16/19 11:59 PM EDT Hospital Encounter [facility] [address] [place] [phone] Covid19, [facility] Pre-op testing; Encounter for laboratory testing for COVID-19 virus Discharge Disposition: Home or Self Care 11/10/19 20 Refill [facility] [address] [place] [address] Vernon Salinas MD Medication Refill 11/10/19 Travel 11/06/19 Travel 11/06/19 9:45 AM EDT Office Visit [facility] [address] [place] [address] Jeffy Fuentes MD Essential hypertension (Primary Dx); S/P CABG x 3; Ischemic heart disease; Coronary artery disease involving northway heart without angina pectoris, unspecified vessel or lesion type 10/29/19 2:00 PM EDT Office Visit [address] [address] Vernon Salinas MD Pre-op examination (Primary Dx); BPH with obstruction/lower urinary tract symptoms 10/29/19 Travel 10/28/[address] [address] Merle Mandujano MA Other 10/27/19 Travel 10/27/19 11:20 AM EDT Office Visit [address] [address] Alva Zelaya PA-C BPH with obstruction/lower urinary tract symptoms (Primary Dx); Incomplete bladder emptying; 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 dysfunction; Overactive bladder; Uncontrolled type 2 diabetes mellitus with hyperglycemia (HCC) 10/17/19 Telephone [facility] [address] [place] [address] Omi Daly DO Medication Management 10/15/19 Telephone [facility] [address] [place] [address] Malika, Omi, DO Prior Authorization (cologuard ) 10/13/19 Refill [facility] [address] [place] [address] Omi Daly, DO Medication Refill 10/13/19 Travel 10/13/19 7:30 AM EDT Office Visit [facility] [address] [address] Agustin Graves MD Dyslipidemia associated with type 2 diabetes mellitus (HCC) (Primary Dx); Vitamin B12 deficiency 10/10/19 Telephone [facility] [address] [address] Agustin Graves MD Lab Orders 10/10/19 8:57 AM EDT - 10/10/19 11:59 PM EDT Hospital Encounter [facility] [address] Uncontrolled type 2 diabetes mellitus with hyperglycemia (HCC); Vitamin B12 deficiency; Vitamin D deficiency; Dyslipidemia associated with type 2 diabetes mellitus (HCC); Encounter for screening for malignant neoplasm of prostate ; Annual physical exam Discharge Disposition: Home or Self Care 10/10/19 Travel 10/06/19 Telephone [facility] [address] [address] Agustin Graves MD Labs Only 10/06/19 Refill [facility] [address] [place] [address] Omi Daly, Medication Refill 09/29/19 Travel 09/29/19 10:20 AM EDT Office Visit [facility] [address] [address] Alva Zelaya PA-C BPH with obstruction/lower urinary tract symptoms (Primary Dx); Incomplete bladder emptying; 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 dysfunction; Overactive bladder; History of UTI; Uncontrolled type 2 diabetes mellitus with hyperglycemia (HCC) 09/11/19 Abstract [facility] [address] [place] [address] Manda Pringle RN 09/10/19 Refill [facility] [address] [place] [address] Omi Daly, DO Medication Refill 09/09/19 Telephone [facility] [address] [place] [address] Omi Daly, DO Medication Management (tamsulosin) 09/08/19 Orders Only [facility] [address] [facility] [address] [place] [address] Ina Overton MD BPH with obstruction/lower urinary tract symptoms 09/03/19 Travel 09/03/19 1:37 PM EDT - 09/03/19 11:59 PM EDT Hospital Encounter [facility] [address] [place] [address] Bilateral shoulder pain, unspecified chronicity Discharge Disposition: Home or Self Care 09/01/19 Travel 09/01/19 8:45 AM EDT Office Visit [facility] Cristy Walker [address] [place] [address] Vernon Salinas MD Chronic pain of both shoulders (Primary Dx); Annual physical exam; Encounter for screening for malignant neoplasm of prostate 08/29/19 Travel 08/29/19 Telephone [facility] [address] [place] [address] Omi Daly, DO Medication Management 08/25/19 Telephone [facility] [address] [place] [address] Agustin Graves MD CGMS Interpretation (Shilpi Pro placement); Appointment Needed (MNT Appt ) 08/25/19 Travel 08/25/19 9:00 AM EDT Office Visit [facility] [address] [place] [address] Laxmi Major LPN Dyslipidemia associated with type 2 diabetes mellitus (HCC) (Primary Dx) 08/22/19 Travel 08/22/19 20 Patient Outreach [facility] [address] [place] [address] Omi Daly, Central Patient Navigator Outreach (AWV, colon, A1c) 08/15/19 20 Refill [facility] [address] [place] [address] Omi Daly, DO Medication Refill 08/14/19 20 Telephone [facility] [address] [place] [address] Agustin Graves MD CGMS Interpretation (Shilpi placement) 08/14/19 Travel 08/14/19 8:10 AM EDT Office Visit [facility] [address] [place] [address] Agustin Graves MD Dyslipidemia associated with type 2 diabetes mellitus (HCC) (Primary Dx); Vitamin B12 deficiency; Vitamin D deficiency 08/13/19 Telephone [facility] [address] [place] [place] [phone] Agustin Graves MD Other (Office Visit Reminder) 08/11/19 4:30 PM EDT - 08/11/19 11:59 PM EDT Hospital Encounter [facility] [address] [address] Uncontrolled type 2 diabetes mellitus with hyperglycemia (HCC); Dyslipidemia associated with type 2 diabetes mellitus (HCC); Vitamin D deficiency; Vitamin B12 deficiency Discharge Disposition: Home or Self Care 08/11/19 Travel 08/01/19 20 Refill [facility] [address] [place] [address] Omi Daly, DO Medication Refill 07/31/19 20 Telephone [facility] [address] [place] [phone] Agustin Graves MD Schedule Appointment 07/29/19 20 Refill [facility] [address] [place] [address] Vernon Salinas MD Medication Refill 07/27/19 20 Refill [facility] [address] [place] [address] Omi Daly, DO Medication Refill 07/18/19 20 Refill [facility] [address] [place] [address] Omi Daly, DO Medication Refill 07/17/19 20 Telephone [facility] [address] [address] Alva Zelaya PA-C Other 07/04/19 20 Refill [facility] [address] [facility] [address] [place], [place] [phone] Agustin Graves MD Medication Refill 06/27/19 20 Telephone [facility] [address] [address] Alva Zelaya PA-C Other (trimix prescription) 06/27/19 20 Travel 06/27/19 9:00 AM EDT Office Visit [facility] [address] [address] Alva Zelaya PA-C Other male erectile dysfunction (Primary Dx); BPH with obstruction/lower urinary tract symptoms; BXO (balanitis xerotica obliterans); Uncontrolled type 2 diabetes mellitus with hyperglycemia (HCC) 06/18/19 20 Refill [facility] [address] [place] [address] Omi Daly, DO Medication Refill 06/18/19 20 Refill [facility] [address] [place] [address] Omi Daly DO Medication Refill 06/18/19 Travel 06/11/19 20 Refill [facility] 100 [place] [address] Omi Daly DO Medication Refill 05/23/19 20 Travel 05/23/19 20 Telephone [facility] [address] [place] [address] Omi Daly, Diarrhea 05/14/19 Travel 05/12/19 20 Refill [facility] [address] [facility] [address] [place] [address] Agustin Graves MD Medication Refill 05/09/19 9:45 AM EST Office Visit [address] [address] Ina Overton MD BPH with obstruction/lower urinary tract symptoms (Primary Dx); Nocturia; BXO (balanitis xerotica obliterans); 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 dysfunction; Incomplete emptying of bladder; Recurrent UTI; Uncontrolled type 2 diabetes mellitus with hyperglycemia (HCC); Obstructive sleep apnea syndrome 05/06/19 Travel 04/30/19 [address] [address] Ina Overton MD Medication Management 04/23/19 Patient Outreach [facility] [address] [place] [address] Alondra Menchaca PharmD Medication Management (CMR) 04/22/19 Travel 04/22/19 1:15 PM EST Office Visit [facility] [address] [place] [address] Vernon Salinas MD Viral URI (Primary Dx); Essential hypertension; Gastroesophageal reflux disease without esophagitis 04/18/19 Orders Only [facility] [address] [place] [address] Omi Daly DO Screening for colon cancer; Screening for cancer of the rectum 04/16/19 10:05 AM EST - 04/16/19 11:59 PM EST Hospital Encounter [facility] [address] [facility] [place] [address] Dyslipidemia associated with type 2 diabetes mellitus (HCC); Vitamin D deficiency; Vitamin B12 deficiency Discharge Disposition: Home or Self Care 04/10/19 2:45 PM EST Office Visit [facility] [address] [place] [address] Jeffy Fuentes MD Ischemic heart disease (Primary Dx); S/P CABG x 3; Other specified hypotension 04/09/19 11:00 AM EST Office Visit [facility] [address] [place] [address] Vernon Salinas MD Dermatitis (Primary Dx) 04/08/19 20 Refill [facility] [address] [place] [address] Omi Daly DO Medication Refill 04/07/19 2:15 PM EST Office Visit [facility] [address] [address] Alva Zelaya PA-C Overactive bladder (Primary Dx); Incomplete emptying of bladder; BPH with obstruction/lower urinary tract symptoms; Uncontrolled type 2 diabetes mellitus with hyperglycemia (HCC); Abnormality of penis 04/07/19 20 Refill [facility] [address] [facility] [address] [place] [address] Agustin Graves MD Medication Refill 03/18/19 20 Refill [facility] [address] [place] [address] Omi Daly DO Medication Refill 03/14/19 20 Refill [facility] [address] [place] [address] Omi Daly DO Medication Refill 03/14/19 11:00 AM EST - 03/14/19 11:59 PM EST Hospital Encounter [facility] [address] [place] [address] Jeffy Fuentes MD Ischemic heart disease; Coronary artery disease involving northway heart without angina pectoris, unspecified vessel or lesion type; S/P CABG x 3; Dizziness Discharge Disposition: Home or Self Care 03/11/20 19 Refill [facility] [address] [place] [address] Omi Daly, DO Medication Refill 02/21/20 10:45 AM EST Office Visit [facility] [address] [place] [address] Jeffy Fuentes MD Coronary artery disease involving northway heart without angina pectoris, unspecified vessel or lesion type (Primary Dx); Ischemic heart disease; S/P CABG x 3; Dizziness; Lightheadedness; Other specified hypotension 02/14/20 8:30 AM EST Office Visit [facility] [address] [place] [address] Vernon Salinas MD Essential hypertension (Primary Dx); Gastroesophageal reflux disease without esophagitis; Mixed hyperlipidemia 02/03/20 19 Refill [facility] [address] [place] [address] Omi Daly, DO Medication Refill 02/02/20 8:30 AM EST Office Visit [facility] [address] [place] [address] Dejuan Rosario APRN Psoriasis of scalp (Primary Dx); Acute pain of left shoulder; Uncontrolled type 2 diabetes mellitus with hyperglycemia (HCC); Class 2 severe obesity due to excess calories with serious comorbidity and body mass index (BMI) of 35.0 to 35.9 in adult (HCC); Bradycardia; Flu-like symptoms 01/30/20 3:10 PM EST Office Visit [address] [place] [address] Agustin Graves MD Dyslipidemia associated with type 2 diabetes mellitus (HCC) (Primary Dx); Vitamin B12 deficiency; Vitamin D deficiency 01/28/20 Telephone [facility] 100 [place] [address] Omi Daly, DO Orders 01/26/20 11:14 AM EST - 01/26/20 11:59 PM EST Hospital Encounter [facility] [address] [place] [address] Dyslipidemia associated with type 2 diabetes mellitus (HCC); Vitamin D deficiency; Vitamin B12 deficiency; Muscle pain Discharge Disposition: Home or Self Care 01/26/20 11:00 AM EST Ancillary Procedure [facility] [address] [place] [address] Chronic left shoulder pain 01/26/20 8:15 AM EST Office Visit [facility] [address] [place] [address] Vernon Salinas MD Flu vaccine need (Primary Dx); Chronic left shoulder pain; Muscle pain; Essential hypertension; Mixed hyperlipidemia 01/24/20 3:30 PM EST Office Visit [facility] [address] [place] [address],LD,CDE Obesity, Class I, BMI 30-34.9 (Primary Dx) 01/21/20 19 Refill [facility] [address] [place] [address] Omi Daly, DO Medication Refill 01/17/20 19 Refill [facility] [address] [place] [address] Omi Daly, DO Medication Refill 01/10/20 19 5:00 PM EDT Office Visit [facility] [address] [place] [address] Obesity (BMI 30-39.9) (Primary Dx) 12/27/19 19 4:30 PM EDT Office Visit [facility] [address] [place] [address] Delma Rothman, DOMONIQUE,LD,CDE Obesity (BMI 30-39.9) (Primary Dx) 12/24/19 Telephone [facility] [address] [facility] [address] Omi Daly, Medication Change 12/21/19 Refill [facility] [address] [place] [address] Omi Daly, DO Medication Refill 12/17/19 Refill [facility] [address] [place] [address] Omi Daly, DO Medication Refill 12/11/19 Refill [facility] [address] [place] [address] Vernon Salinas MD Medication Refill 12/10/19 Telephone [facility] [address] [place] [address] Omi Daly, Prior Authorization 12/10/19 4:15 PM EDT Office Visit [facility] [address] [place] [address] Osman aHgen MD Dyslipidemia associated with type 2 diabetes mellitus (HCC) (Primary Dx); Uncontrolled type 2 diabetes mellitus with hyperglycemia (HCC); Essential hypertension; Mixed hyperlipidemia; SOB (shortness of breath); Elevated lipoprotein(a); Vitamin B12 deficiency; Class 2 severe obesity due to excess calories with serious comorbidity and body mass index (BMI) of 35.0 to 35.9 in adult (HCC); Vitamin D deficiency 12/07/19 Telephone [facility] [address] [place] [address] Omi Daly, Other 12/04/19 5:00 PM EDT Office Visit [facility] [address] [place] [address] 2, Janeth Rn Obesity (BMI 30-39.9) (Primary Dx) 11/29/19 Refill [facility] [address] [place] [address] Vernon Salinas MD Medication Refill 11/29/19 19 Refill [facility] [address] [place] [address] Omi Daly, Medication Refill 11/28/19 19 Refill [facility] [address] [facility] [address] [place] [address] Agustin Graves MD Medication Refill 11/27/19 4:56 PM EDT - 11/27/19 11:59 PM EDT Hospital Encounter [facility] [address] [place] [address] BPH with obstruction/lower urinary tract symptoms Discharge Disposition: Home or Self Care 11/27/19 1:00 PM EDT Office Visit [facility] [address] [place] [address] Vernon Salinas MD Annual physical exam (Primary Dx); Viral URI with cough; Essential hypertension; Mixed hyperlipidemia 11/27/19 6:00 PM EDT Office Visit [facility] [address] [place] [address] Delma Rothman, DOMONIQUE,LD,CDE Obesity (BMI 30-39.9) (Primary Dx) 11/27/19 4:00 PM EDT Office Visit [facility] [address] [place] [address] Alva Zelaya, NAIN Incomplete bladder emptying (Primary Dx); BPH with obstruction/lower urinary tract symptoms; Enlarged prostate 11/22/19 Refill [facility] [address] [place] [address] Omi Daly, Medication Refill 11/22/19 5:30 PM EDT Office Visit [facility] [address] [place] [address] Obesity (BMI 30-39.9) (Primary Dx) 11/20/19 4:15 PM EDT Office Visit [facility] [address] [place] [address] Osman Hagen MD Dyslipidemia associated [...] - 11/16/19 11:59 PM EDT Hospital Encounter [facility] [place] [address] [facility] [address] [place] [address] Obstructive sleep apnea (Primary Dx) Discharge Disposition: Home or Self Care 11/06/19 5:30 PM EDT Office Visit [facility] [address] [place] [address] Obesity (BMI 30-39.9) (Primary Dx); Dietary counseling and surveillance 11/01/19 Refill [facility] [address] [place] [address] Omi Daly DO Medication Refill 10/30/19 9:50 AM EDT Office Visit [address] [place] [address] Agustin Graevs MD Dyslipidemia associated with type 2 diabetes mellitus (HCC) (Primary Dx); Vitamin B12 deficiency; Elevated lipoprotein(a); Vitamin D deficiency 10/29/19 6:00 PM EDT Office Visit [facility] [address] [place] [address] Obesity (BMI 30-39.9) (Primary Dx) 10/26/19 3:45 PM EDT Office Visit [facility] [address] [place] [address] Rosario, Dejuan A, PIPING DRAFTER UTI (urinary tract infection), uncomplicated (Primary Dx); Dysuria 10/26/19 Telephone [facility] [address] [place] [address] Omi Daly DO Other 10/23/19 2:30 PM EDT - 10/23/19 11:59 PM EDT Hospital Encounter [facility] [address] [place] [address] Obstructive sleep apnea (Primary Dx) Discharge Disposition: Home or Self Care 10/23/19 2:15 PM EDT Office Visit [facility] [address] [facility] [address] [place] [address] Ruben Kelly MD Excessive sleepiness; Primary snoring; Obstructive sleep apnea; Obesity due to excess calories without serious comorbidity, unspecified classification 10/22/19 3:48 PM EDT - 10/22/19 11:59 PM EDT Hospital Encounter [facility] [address] [place] [address] Dyslipidemia associated with type 2 diabetes mellitus (HCC); Elevated lipoprotein(a); Vitamin D deficiency Discharge Disposition: Home or Self Care 10/22/19 Telephone [facility] [address] [place] [address] Omi Daly DO Dizziness 10/22/19 Telephone [facility] [address] [facility] [address] [place] [address] Agustin Graves MD Labs Only 10/22/19 6:30 PM EDT Office Visit [facility] [address] [place] [address] Delma Rothman, DOMONIQUE,LD,CDE Obesity (BMI 30-39.9) (Primary Dx) 10/20/19 19 Refill [facility] [address] [place] [address] Omi Daly DO Medication Refill 10/18/19 19 Refill [facility] [address] [employer] [address] [facility] [place] [address] Stevie Acosta MD Medication Refill 10/17/19 Telephone [facility] [address] [place] [address] Omi Daly DO Other 10/15/19 4:00 PM EDT Office Visit [facility] [address] [place] [address] Omi Daly, Dyslipidemia associated with type 2 diabetes mellitus (HCC) (Primary Dx); Uncontrolled type 2 diabetes mellitus with hyperglycemia (HCC); Type 2 diabetes mellitus without complication, unspecified whether intermediate frame tender insulin use (HCC); Essential hypertension 10/15/19 11:15 AM EDT Office Visit [facility] [address] [place] [address] Osman Hagen MD Coronary artery disease involving northway heart without angina pectoris, unspecified vessel or lesion type (Primary Dx); Elevated lipoprotein(a); Gastroesophageal reflux disease without esophagitis; Essential hypertension; Mixed hyperlipidemia; S/P CABG x 3; Uncontrolled type 2 diabetes mellitus with hyperglycemia (HCC); Vitamin D deficiency 10/12/19 11:15 AM EDT Office Visit [facility] [address] [place] [address] [address] Drea Acuna APRN Degenerative disc disease, lumbar (Primary Dx); Chronic pain syndrome; Sacroiliitis; Spondylosis of lumbar region without myelopathy or radiculopathy 10/08/19 5:30 PM EDT Office Visit [facility] [address] [place] [address] 2, Janeth Rn Obesity (BMI 30-39.9) (Primary Dx) 10/04/19 6:00 PM EDT - 10/04/19 11:59 PM EDT Hospital Encounter [facility] Physical Therapy [address] [place] [address] Rafia Thomas, PT Discharge Disposition: Home or Self Care 07/23/20 19 Refill [facility] [address] [place] [address] Omi Daly, Medication Refill 09/21/19 8:15 AM EDT - 09/21/19 8:45 AM EDT Surgery [facility] [place] [address] Stevie Acosta MD ESOPHAGOGASTRODUODENOSCOPY (ANESTHESIA) 09/21/19 8:25 AM EDT Anesthesia Event [facility] [place] [address] Mray Luna MD Merkle Serey, Jennifer L, NP 09/21/19 7:14 AM EDT - 09/21/19 9:51 AM EDT Hospital Encounter [facility] [place] [address] Stevie Acosta MD Eosinophilic esophagitis Discharge Disposition: Home or Self Care 09/17/19 19 Refill [facility] [address] [place] [address] Vernon Salinas MD Medication Refill 09/11/19 19 7:00 PM EDT - 09/11/19 11:59 PM EDT Hospital Encounter [facility] [address] [place] [address] Obstructive sleep apnea (Primary Dx) Discharge Disposition: Home or Self Care 09/04/19 19 5:00 PM EDT - 09/04/19 19 11:59 PM EDT Hospital Encounter [facility] Physical Therapy [address] [address] Rafia Thomas, PT Discharge Disposition: Home or Self Care 09/03/19 19 11:00 AM EDT Office Visit [facility] [address] [facility] Building [address] [place] [address] Ruben Kelly MD Primary snoring; Obstructive sleep apnea 09/02/19 19 Refill [facility] [address] [place] [address] MalikaOmi gasca, DO Medication Refill 08/30/19 19 Refill [facility] [address] [place] [address] Vernon Salinas MD Medication Refill 08/30/19 19 5:30 PM EDT - 08/30/19 11:59 PM EDT Hospital Encounter [address] [place] [address] Rafia Thomas, PT Discharge Disposition: Home or Self Care 08/28/19 19 11:30 AM EDT Office Visit [facility] [address] [place] [address] Obesity (BMI 30-39.9) (Primary Dx) 08/27/19 19 Refill [facility] [address] [place] [address] MalikaOmi gasca, DO Medication Refill 08/21/19 19 Refill [facility] [address] [place] [address] MalikaOmi lewis, DO Medication Refill 08/16/19 19 Telephone [facility] [address] [place] [address] MalikaOmi gasca, DO Note 08/14/19 19 2:00 PM EDT Office Visit [facility] [address] [place] [address] Obesity, Class II, BMI 35-39.9 (Primary Dx) 08/14/19 19 4:42 PM EDT - 08/14/19 11:59 PM EDT Hospital Encounter [address] [place] [address] Rafia Thomas, PT Discharge Disposition: Home or Self Care 08/13/19 19 Orders Only [address] [place] [address] Agustin Graves MD Uncontrolled type 2 diabetes mellitus with hyperglycemia (HCC) (Primary Dx) 08/13/19 19 Telephone [facility] [address] [place] [address] MalikaOmi, DO Prior Authorization 08/10/19 19 Telephone [facility] [address] [place] [address] MalikaOmi, DO Prior Authorization 08/09/19 19 Telephone [facility] [address] [place] [address] MalikaOmi, DO Prior Authorization 08/09/19 19 4:59 PM EDT - 08/09/19 19 11:59 PM EDT Hospital Encounter [facility] Physical Therapy [address] [place] [address] Rafia Thomas, PT Discharge Disposition: Home or Self Care 08/07/19 19 5:20 PM EDT - 08/07/19 19 11:59 PM EDT Hospital Encounter [facility] Physical [address] [place] [address] Rafia Thomas, PT Discharge Disposition: Home or Self Care 08/07/19 8:15 AM EDT Office Visit [facility] [address] [place] [address] Barbara Cole APRN Vitamin D deficiency (Primary Dx); SOB (shortness of breath); DDD (degenerative disc disease), lumbar; Elevated lipoprotein(a); Esophageal dysphagia; Dyslipidemia associated with type 2 diabetes mellitus (HCC); Uncontrolled type 2 diabetes mellitus with hyperglycemia (HCC); Essential hypertension; Mixed hyperlipidemia; S/P CABG x 3 08/03/19 19 Telephone [facility] [address] [facility] [address] [place] [address] Agustin Graves MD Results 08/02/19 19 Orders Only [facility] [address] [facility] [address] [place] [address] Agustin Graves MD Dyslipidemia associated with type 2 diabetes mellitus (HCC) (Primary Dx); Elevated lipoprotein(a); Vitamin D deficiency 08/02/19 Refill [facility] [address] [place] [address] MalikaOmiDO Medication Refill 07/31/19 5:14 PM EDT - 07/31/19 11:59 PM EDT Hospital Encounter [facility] Physical Therapy [address] [place] [address] Rafia Thomas, PT Discharge Disposition: Home or Self Care 07/30/19 12:25 PM EDT - 07/30/19 11:59 PM EDT Hospital Encounter [address] [place] [address] Dyslipidemia associated with type 2 diabetes mellitus (HCC); Vitamin D deficiency Discharge Disposition: Home or Self Care 07/30/[address] [address] Agustin Graves MD CGMS Interpretation (Shilpi Pro Due) 07/30/19 5:00 PM EDT Office Visit [facility] [address] [place], [place] [address] Delma Rothman, DOMONIQUE,LD,CDE Obesity (BMI 30-39.9) (Primary Dx) 07/30/19 11:20 AM EDT Office Visit [address] [address] Agustin Graves MD Dyslipidemia associated with type 2 diabetes mellitus (HCC) (Primary Dx); Vitamin D deficiency; Coronary artery disease involving northway heart without angina pectoris, unspecified vessel or lesion type 07/25/19 Telephone [facility] [address] [place] [address] Carlos Langston MD Orders (PT orders) 07/24/19 4:12 PM EDT - 07/24/19 11:59 PM EDT Hospital Encounter [facility] Physical Therapy [address] [place] [phone] Rafia Thomas, PT Discharge Disposition: Home or Self Care 07/23/19 1:30 PM EDT Office Visit [facility] [address] [place] [address],LD,CDE Uncontrolled type 2 diabetes mellitus with hyperglycemia (HCC) (Primary Dx) 07/20/19 Telephone [facility] [address] [facility] [address] [place] [address] Stevie Acosta MD Results; Orders 07/18/19 9:45 AM EDT - 07/18/19 10:00 AM EDT Surgery [facility] [address] [place] [address] Stevie Acosta MD ESOPHAGOGASTRODUODENOSCOPY (ANESTHESIA) 07/18/19 10:01 AM EDT Anesthesia Event [facility] [address] [place] [address] Barber Lindsey MD Collins, Angela, APRN 07/18/19 8:00 AM EDT - 07/18/19 11:13 AM EDT Hospital Encounter [facility] [address] [place] [address] Stevie Acosta MD Pharyngoesophageal dysphagia Discharge Disposition: Home or Self Care 07/16/19 1:30 PM EDT Office Visit [facility] [address] [place] [address],LD,CDE Uncontrolled type 2 diabetes mellitus with hyperglycemia (HCC) (Primary Dx) 07/13/19 19 Refill [facility] [address] [place] [address] Omi Daly DO Medication Refill 07/12/19 8:45 AM EDT Office Visit [facility] [address] [facility] [address] [place] [address] Carlos Langston MD Spondylosis of lumbar region without myelopathy or radiculopathy (Primary Dx); Chronic pain syndrome; Sacroiliitis 07/09/19 Telephone [facility] [address] [place] [address] Analy Stafford MA Results 07/09/19 1:30 PM EDT Office Visit [facility] [address] [place] [address] Obesity, Class III, BMI 40-49.9 (morbid obesity) (HCC) (Primary Dx) 07/05/19 Telephone [facility] [address] [facility] [address] [place] [address] Lyle Rangel MD PHD Other 07/05/19 1:30 PM EDT - 07/05/19 11:59 PM EDT Hospital Encounter [facility] [address] [place] [address] Snoring; DDD (degenerative disc disease), lumbar; Gastroesophageal reflux disease without esophagitis; Essential hypertension; Other hyperlipidemia; S/P CABG x 3; Uncontrolled type 2 diabetes mellitus with hyperglycemia (HCC); Vitamin B12 deficiency; Vitamin D deficiency; Ischemic heart disease Discharge Disposition: Home or Self Care 07/03/19 Refill [facility] [address] [place] [address] Omi Daly DO Medication Refill 06/28/19 9:30 AM EDT Office Visit [facility] [address] [place] [address] Barbara Cole APRN Snoring (Primary Dx); DDD (degenerative disc disease), lumbar; Gastroesophageal reflux disease without esophagitis; Essential hypertension; Other hyperlipidemia; S/P CABG x 3; Uncontrolled type 2 diabetes mellitus with hyperglycemia (HCC); Vitamin B12 deficiency; Vitamin D deficiency; Ischemic heart disease 06/19/19 Refill [facility] [address] [place] [address] [place] Salinas MD Medication Refill 06/08/19 [facility]ill [facility] [address] [place] [address] Patsy Padron MD Medication Refill 05/30/19 [facility]ill [facility] [address] [place] [address] Omi Daly DO Medication Refill 05/29/19 1:45 PM EDT Office Visit [facility] [address] [place] [address] Vernon Salinas MD Obesity, Class II, BMI 35-39.9 (Primary Dx); Type 2 diabetes mellitus without complication, unspecified whether fci insulin use (HCC); Essential hypertension 05/28/19 2:40 PM EDT - 05/28/19 11:59 PM EDT Hospital Encounter [facility] [address] [place] [address] Type 2 diabetes mellitus without complication, without long-term current use of insulin (HCC) Discharge Disposition: Home or Self Care 05/28/19 10:45 AM EDT Office Visit [facility] [address] [address] Ina Overton MD Benign non-nodular prostatic hyperplasia with lower urinary tract symptoms (Primary Dx); Incomplete bladder emptying; Overactive bladder; Uncontrolled type 2 diabetes mellitus with hyperglycemia (HCC); Yeast dermatitis of penis; Phimosis; Frequency of micturition; Glucosuria; Enlarged prostate 05/21/19 Orders Only [facility] [address] [place] [address] Vernon Salinas MD Type 2 diabetes mellitus without complication, without long-term current use of insulin (HCC) (Primary Dx) 05/21/19 Telephone [facility] [address] [place] [address] Omi Daly DO Orders 05/21/19 11:35 AM EDT Hospital Encounter [facility] [address] [place] [address] Left without seen 05/16/19 3:45 PM EST Office Visit [facility] [address] [place] [address] Vernon Salinas MD Acute bacterial sinusitis (Primary Dx); Cellulitis of leg, left 05/16/19 Telephone [facility] [address] [place] [address] Omi Daly DO Medication Management 05/16/19 Refill [facility] [address] [place] [address] Omi Daly DO Medication Refill 05/11/19 7:41 AM EST - 05/11/19 11:59 PM EST Hospital Encounter [facility] [address] [place] [address] [address] 1 [address] 4[address] [place] [address] Chelita Reynoso APRN Spondylosis of lumbar region without myelopathy or radiculopathy Discharge Disposition: Home or Self Care 04/29/19 3:00 PM EST Office Visit [facility] [address] [place] [facility] [address] Vernon Salinas MD Type 2 diabetes mellitus without complication, without long-term current use of insulin (HCC) (Primary Dx); Obesity, Class II, BMI 35-39.9; DDD (degenerative disc disease), lumbar 04/25/19 Telephone [facility] [address] [place] [address] Chelita Reynoso APRN Other (RFA Denial) 04/23/19 Telephone [facility] [address] [facility] [address] Omi Daly DO Referral 04/23/19 8:30 AM EST Procedure visit [facility] [address] [place] [address] Ina Overton MD Benign non-nodular prostatic hyperplasia with lower urinary tract symptoms (Primary Dx); Frequency of micturition; Incomplete bladder emptying; History of UTI; 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 dysfunction; Glucosuria; Uncontrolled type 2 diabetes mellitus with hyperglycemia (HCC); Candidal balanitis 04/10/19 10:30 AM EST Office Visit [facility] [address] [facility] [address] [place] [address] Ina Overton MD Benign non-nodular prostatic hyperplasia with lower urinary tract symptoms (Primary Dx); Weak urinary stream; History of UTI; Overactive bladder; Urge incontinence; Yeast dermatitis of penis; Uncontrolled type 2 diabetes mellitus with hyperglycemia (HCC); Candidal balanitis; Glucosuria; Prostate cancer screening 04/04/19 19 Refill [facility] [place] [address] Starla Nice MA Medication Refill 03/27/19 19 Refill [facility] [address] [place] [address] Omi Daly, DO Medication Refill 03/25/19 19 Refill [facility] [address] [place] [address] Omi Daly, DO Medication Refill 03/21/19 2:00 PM EST Office Visit [facility] [address] [place] [address] Vernon Salinas MD Screening for colon cancer (Primary Dx); Controlled type 2 diabetes mellitus without complication, without long-term current use of insulin (HCC); Acute bacterial sinusitis; Esophageal stricture 03/18/19 19 Refill [facility] [address] [place] [address] Vernon Salinas MD Medication Refill 03/13/19 10:00 AM EST Office Visit [address] [place] [address] Chelita Reynoso APRN Spondylosis of lumbar region without myelopathy or radiculopathy (Primary Dx); Chronic pain syndrome; Sacroiliitis 03/07/20 18 8:45 AM EST - 03/07/20 18 11:59 PM EST Hospital Encounter [facility] [address] [facility] [address] 1 [address] 4th Floor [address] [place] [address] Chelita Reynoso APRN Spondylosis of lumbar region without myelopathy or radiculopathy Discharge Disposition: Home or Self Care 03/02/20 18 Refill [facility] [address] [place] [address] Vernon Salinas MD Medication Refill 02/23/20 18 Refill [facility] [address] [place] [address] Omi Daly, DO Medication Refill 02/21/20 18 Refill [facility] [address] [place] [address] Omi Daly, DO Medication Refill 02/15/20 18 Refill [facility] [address] [place] [address] Omi Daly, DO Medication Refill 02/12/20 18 Refill [facility] [address] [place] [address] Vernon Salinas MD Medication Refill 02/05/20 18 Refill [facility] [address] [place] [address] Omi Daly, DO Medication Refill 01/31/20 18 Refill [facility] [address] [place] [address] Omi Daly, DO Medication Refill 01/29/20 18 Telephone [facility] [address] [place] [address] Omi Daly, DO Medication Management 01/26/20 18 Refill [facility] [address] [place] [address] Omi Daly DO Medication Refill 01/22/20 18 Refill [facility] 100 [place] [address] Starla Nice MA Medication Refill 01/18/20 18 Refill [facility] [address] [facility] [address] [place] [address] Angelina Zaldivar MD Medication Refill 01/11/20 18 11:00 AM EDT Office Visit [address] [place] [address] Chelita Reynoso APRN Spondylosis of lumbar region without myelopathy or radiculopathy (Primary Dx); Chronic pain syndrome; Sacroiliitis 12/21/19 18 Refill [facility] [address] [place] [address] Vernon Salinas MD Medication Refill 12/13/19 [address] [place] [address] Carlos Langston MD Medication Refill (Flexeril) 12/11/19 18 Refill [facility] [address] [phone] Jeffy Fuentes MD Medication Refill (Isosorb [place]) 12/11/19 [address] [place] [address] Carlos Langston MD Medication Refill (Flexeril) 12/07/19 18 7:33 AM EDT - 12/07/19 18 11:59 PM EDT Hospital Encounter [facility] [address] [place] [address] [address] 1 [address] 4[address] [place] [address] KianCarlos sauceda MD Grainger, Jonathan Kern, MD Chronic pain syndrome; Spondylosis of lumbar region without myelopathy or radiculopathy; Sacroiliitis Discharge Disposition: Home or Self Care 12/06/19 Telephone [facility] [place] [address] [place] [address] Carlos Langston MD Other (procedure) 12/02/19 9:03 AM EDT - 12/02/19 11:59 PM EDT Hospital Encounter [facility] [address] [place] [address] Hepatitis C antibody positiv e in blood; Dysuria Discharge Disposition: Home or Self Care 12/02/19 18 Refill [facility] [address] [place] [address] Omi Daly, DO Medication Refill 12/02/19 9:30 AM EDT Office Visit [facility] [address] [place] [address] Vernon Salinas MD Dysuria (Primary Dx); Essential hypertension; Controlled type 2 diabetes mellitus without complication, without long-term current use of insulin (HCC); Hepatitis C antibody positive in blood 11/28/19 18 Orders Only [facility] [address] [place] [address] Vernon Salinas MD Hepatitis C antibody positive in blood (Primary Dx) 11/27/19 18 Orders Only [facility] [address] [place] [address] Vernon Salinas MD Type 2 diabetes mellitus without complication, unspecified whether fci insulin use (HCC) (Primary Dx) 11/26/19 18 9:17 AM EDT - 11/26/19 11:59 PM EDT Hospital Encounter [facility] [address] [place] [address] Dysuria; Annual physical exam; Enlarged prostate; Type 2 diabetes mellitus without complication, unspecified whether fci insulin use (HCC) Discharge Disposition: Home or Self Care 11/23/19 18 Refill [facility] [address] [place] [address] Omi Daly, DO Medication Refill (Metoprolol) 11/16/19 18 Refill [facility] [address] [place] [address] Starla Nice MA Medication Refill 11/16/19 18 Refill [facility] [address] [place] [address] Omi Daly, DO Medication Refill 11/14/19 18 8:00 AM EDT Office Visit [facility] [address] [place] [address] Vernon Salinas MD Enlarged prostate (Primary Dx); Chronic fatigue 11/09/19 18 Telephone [place] [address] [place] [address] Carlos Langston MD Results (x ray) 11/07/19 18 4:12 PM EDT - 11/07/19 18 11:59 PM EDT Hospital Encounter [facility] [address] [address] Carlos Langston MD Chronic pain syndrome; Spondylosis of lumbar region without myelopathy or radiculopathy; Sacroiliitis Discharge Disposition: Home or Self Care 11/07/19 18 3:00 PM EDT Office Visit [place] [address] [place] [address] Carlos Langston MD Spondylosis of lumbar region without myelopathy or radiculopathy (Primary Dx); Chronic pain syndrome; Sacroiliitis 11/03/19 18 Telephone [facility] [address] [place] [address] Omi Daly, DO Medication Refill 10/29/19 18 5:30 PM EDT Office Visit [facility] [address] [address] Serg Mcgill DO Puncture wound of right foot, initial encounter (Primary Dx) 10/27/19 4:00 PM EDT Clinical Support [facility] [address] [place] [address] Michelle Baig RMA Immunization due (Primary Dx) 10/16/19 3:30 PM EDT Office Visit [facility] [address] [place] [address] Vernon Salinas MD Annual physical exam (Primary Dx); DDD (degenerative disc disease), lumbar; Chronic right-sided low back pain with right-sided sciatica 10/12/19 5:12 PM EDT - 10/12/19 11:59 PM EDT Hospital Encounter [facility] [address] [address] Dysuria; Controlled type 2 diabetes mellitus without complication, without long-term current use of insulin (HCC) Discharge Disposition: Home or Self Care 10/11/19 18 Telephone [facility] [address] [place] [address] Omi Daly DO Prior Authorization 10/11/19 8:00 AM EDT [facility] [address] [place] [address] Vernon Salinas MD Controlled type 2 diabetes mellitus without complication, without long-term current use of insulin (HCC) (Primary Dx); Dysuria; Anhidrosis 10/10/19 18 Telephone [facility] [address] [place] [address] Elba Tapia RN Other 10/09/19 18 Telephone [facility] [address] [place] [address] Omi Daly DO Prior Authorization 10/09/19 18 Telephone [facility] [address] [place] [address] Omi Daly DO Prior Authorization 10/07/19 18 Orders Only [facility] [address] [place] [address] Vernon Salinas MD Type 2 diabetes mellitus without complication, unspecified whether intermediate frame tender insulin use (HCC) (Primary Dx) 10/07/19 18 Telephone [facility] [address] [place] [address] MalikaOmi, DO Prior Authorization 10/06/19 Telephone [facility] [address] [place] [address] MalikaOmi, DO Prior Authorization 10/05/19 18 Telephone [facility] [address] [place] [address] MalikaOmi, DO Prior Authorization 10/05/19 18 Telephone [facility] [address] [place] [address] MalikaOmi, DO Medication Change 10/05/19 10:20 AM EDT - 10/05/19 11:59 PM EDT Hospital Encounter [facility] [address] [place] [address] Type 2 diabetes mellitus without complication, without long-term current use of insulin (HCC) Discharge Disposition: Home or Self Care 10/04/19 18 1:00 PM EDT Office Visit [facility] [address] [place] [address] Vernon Salinas MD Screening for colon cancer (Primary Dx); Type 2 diabetes mellitus without complication, without long-term current use of insulin (HCC) 10/04/19 18 9:53 AM EDT - 10/04/19 11:59 PM EDT Hospital Encounter [facility] [address] [place] [address] Acute pyelonephritis Discharge Disposition: Home or Self Care 10/03/19 18 9:59 AM EDT - 10/03/19 18 11:59 PM EDT Hospital Encounter [facility] [address] [place] [address] Acute pyelonephritis Discharge Disposition: Home or Self Care 10/02/19 18 9:54 AM EDT - 10/02/19 11:59 PM EDT Hospital Encounter [facility] [address] [place] [address] Acute pyelonephritis Discharge Disposition: Home or Self Care 10/01/19 18 9:45 AM EDT - 10/01/19 11:59 PM EDT Hospital Encounter [facility] [address] [place] [address] Acute pyelonephritis Discharge Disposition: Home or Self Care 09/30/19 18 9:46 AM EDT - 09/30/19 11:59 PM EDT Hospital Encounter [facility] [address] [place] [address] Acute pyelonephritis Discharge Disposition: Home or Self Care 09/29/19 18 10:54 AM EDT - 09/29/19 11:59 PM EDT Hospital Encounter [address] [address] Acute pyelonephritis Discharge Disposition: Home or Self Care 09/28/19 18 9:49 AM EDT - 09/28/19 11:59 PM EDT Hospital Encounter [address] [address] Acute pyelonephritis Discharge Disposition: Home or Self Care 09/27/19 18 10:40 AM EDT - 09/27/19 11:59 PM EDT Hospital Encounter [address] [address] Acute pyelonephritis Discharge Disposition: Home or Self Care 09/26/19 Patient Outreach [facility] [address] [place] [address] Elba Tapia, RN Hospital Follow Up 09/26/19 Patient Outreach [facility] [address] [place] [address] Laurel Hodgson, RN Care Management - Chart Review (hospital discharge reviewed) 09/26/19 18 9:59 AM EDT - 09/26/19 18 11:59 PM EDT Hospital Encounter [facility] [address] [place] [address] Acute pyelonephritis Discharge Disposition: Home or Self Care 09/21/19 18 7:56 AM EDT - 09/25/19 18 6:15 PM EDT Hospital Encounter [facility] [address] [place] [address] Marlon Yarbrough MD Discharge Disposition: Home or Self Care 09/21/19 18 3:55 AM EDT - 09/21/19 18 7:24 AM EDT Emergency [facility] [address] [place] [address] Jasper Dixon MD Krusling, Edward J, MD Pyelonephritis (Primary Dx) Discharge Disposition: Short Term Hospital 09/06/19 18 Refill [facility] [address] [place] [address] Omi Daly, Medication Refill 08/04/19 18 Telephone [facility] [address] [place] [address] Omi Daly DO Abscess 07/25/19 18 Telephone [facility] [address] [place] [address] Omi Daly, Medication Refill 07/24/19 18 Refill [facility] [address] [place] [address] Omi Daly, Medication Refill 07/21/19 18 9:15 AM EDT Office Visit [facility] [address] [place] [address] Omi Daly, BPH with urinary obstruction (Primary Dx) 07/12/19 18 Telephone [facility] [address] [place] [address] Omi Daly, Medication Management 07/11/19 18 Refill [facility] [address] [place] [address] Omi Daly, DO Medication Refill 07/09/19 18 Refill [facility] [address] [place] [address] Omi Daly, DO Medication Refill 06/12/19 18 Telephone [facility] [address] [place] [address] Omi Daly, DO Urinary Tract Infection 06/07/19 18 Refill [facility] [address] [place] [address] Omi Daly, DO Medication Refill 05/22/19 18 Refill [facility] [address] [place] [address] Omi Daly, DO Medication Refill 05/01/19 [address] [place] [address] Angelina Zaldivar MD Samples (Bydureon) 04/22/19 18 Refill [facility] [address] [place] [address] Omi Daly, DO Medication Refill 04/19/19 18 Refill [facility] [address] [place] [address] Omi Daly, DO Medication Refill 04/03/19 18 Telephone [facility] [address] [place] [address] Omi Daly, DO Vaginitis 03/26/19 18 Telephone [facility] [address] [address] Jeffy Fuentes MD Visit Follow Up 03/23/19 18 Refill [facility] [address] [place] [address] Omi Daly, DO Medication Refill 03/07/20 17 Refill [facility] [address] [place] [address] Patsy Padron MD Medication Refill 02/08/20 17 Refill [facility] [address] [place] [address] Omi Daly, Medication Refill 01/17/20 17 Refill [facility] [address] [place] [address] Omi Daly, DO Medication Refill 01/04/20 17 Refill [facility] [address] [place] [address] Patsy Padron MD Medication Refill 01/04/20 17 Refill [facility] [address] [place] [address] Omi Daly, Medication Refill 12/26/19 17 Telephone [facility] [address] [facility] [address] [place] [address] Angelina Zaldivar MD Samples (Bydureon) 12/21/19 17 Refill [facility] [address] [place] [address] Jeffy Fuentes MD Medication Refill (Isosorbide refill / [facility]) 12/21/19 17 Refill [facility] [address] [place] [address] Omi Daly, Medication Refill 12/21/19 17 Telephone [facility] [address] [facility] [address] [place] [address] Angelina Zaldivar MD Medication Management 12/03/19 17 8:45 AM EDT Office Visit [facility] [address] [place] [address] Vernon Salinas MD Abscess (Primary Dx) 11/27/19 17 Refill [facility] [address] [place] [address] Omi Daly DO Medication Refill 11/08/19 17 9:30 AM EDT Office Visit [facility] [address] [facility] [address] [place] [address] Angelina Zaldivar MD Type 2 diabetes mellitus without complication, without long-term current use of insulin (HCC) (Primary Dx); Hyperlipidemia associated with type 2 diabetes mellitus (HCC); Hypertension associated with diabetes (HCC); Vitamin D deficiency; Vitamin B12 deficiency; Candidiasis 11/03/19 17 9:15 AM EDT - 11/03/19 17 11:59 PM EDT Hospital Encounter [facility] [address] [facility] [place] [address] Type 2 diabetes mellitus wit h complication, without long-term current use of insulin (HCC) Discharge Disposition: Home or Self Care 11/02/19 17 Telephone [facility] [address] [facility] [address] [place] [address] Angelina Zaldivar MD Labs Only 10/31/19 17 Telephone [facility] [address] [facility] [address] [place] [address] Angelina Zaldivar MD Referral ([facility]) 10/31/19 17 Refill [facility] [address] [place] [address] Omi Daly, Medication Refill 10/28/19 17 Telephone [facility] [address] [facility] [address] [place] [address] Angelina Zaldivar MD Samples 10/25/19 17 Refill [facility] [address] [place] [address] Omi Daly, Medication Refill 10/11/19 17 Refill [facility] [address] [place] [address] Omi Daly, DO Medication Refill 10/10/19 17 Telephone [facility] [place] [address] [facility] [address] [place] [address] Angelina Zaldivar MD Samples 09/28/19 17 Refill [facility] [address] [place] [address] Omi Daly, DO Medication Refill 09/26/19 17 Refill [facility] [address] [place] [address] Patsy Padron MD Medication Refill 09/22/19 17 Refill [facility] [address] [place] [address] Omi Daly, DO Medication Refill 09/22/19 17 9:15 AM EDT Office Visit [facility] [address] [phone] Jeffy Fuentes MD Essential hypertension (Primary Dx); Ischemic heart disease; S/P CABG x 3; Hyperlipidemia, unspecified hyperlipidemia type 09/20/19 17 11:45 AM EDT Clinical Support [facility] [address] [place] [address] Michelle Baig RMA Screening for colon cancer (Primary Dx) 09/08/19 17 Telephone [facility] [address] [place] [address] [address] Angelina Zaldivar MD Paperwork/forms (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) 08/25/19 17 Refill [facility] [address] [place] [address] Omi Daly, DO Medication Refill 08/10/19 17 Telephone [facility] [place] [address] [employer] [address] [place] [address] Jeffy Fuentes MD Visit Follow Up 08/10/19 17 Refill [facility] [address] [place] [address] [place] [address] Angelina Zaldivar MD Medication Refill 08/04/19 17 10:15 AM EDT Office Visit [facility] [address] [phone] Jeffy Fuentes MD Essential hypertension (Primary Dx); Ischemic heart disease; Chest pain, unspecified type 08/03/19 17 Refill [facility] [address] [address] Angelina Zaldivar MD Medication Refill 08/03/19 17 3:00 PM EDT Office Visit [facility] [address] [address] Angelina Zaldivar MD Vitamin D deficiency (Primary Dx); Vitamin B12 deficiency; Hyperlipidemia associated with type 2 diabetes mellitus (HCC); Hypertension associated with diabetes (HCC); Type 2 diabetes mellitus with complication, without long-term current use of insulin (HCC) 08/02/19 17 2:38 PM EDT - 08/02/19 17 11:59 PM EDT Hospital Encounter [facility] [address] [place] [address] Jeffy Fuentes MD Chest discomfort; Essential hypertension; Ischemic heart disease; S/P CABG x 3 Discharge Disposition: Home or Self Care 08/02/19 17 2:00 PM EDT - 08/02/19 17 2:37 PM EDT Hospital Encounter [facility] [address] [place] [address] Jeffy Fuentes MD Chest discomfort; Essential hypertension; Ischemic heart disease; S/P CABG x 3 Discharge Disposition: Home or Self Care 07/28/19 17 3:30 PM EDT - 07/28/19 17 11:59 PM EDT Hospital Encounter [facility] [address] [place] [address] Jeffy Fuentes MD Type 2 diabetes mellitus without complication, without long-term current use of insulin (HCC); Hyperlipidemia associated with type 2 diabetes mellitus (HCC) Discharge Disposition: Home or Self Care 07/28/19 17 2:25 PM EDT - 07/28/19 17 3:29 PM EDT Hospital Encounter [facility] [address] [place] [address] Jeffy Fuentes MD Chest discomfort; Essential hypertension; Ischemic heart disease; S/P CABG x 3 Discharge Disposition: Home or Self Care 07/23/19 17 Refill [facility] [address] [place] [address] Omi Daly, DO Medication Refill 07/21/19 17 2:00 PM EDT Office Visit [facility] [address] [address] Jeffy Fuentes MD Encounter to establish care with new doctor (Primary Dx); Chest discomfort; Essential hypertension; Ischemic heart disease; S/P CABG x 3 07/08/19 17 Telephone [facility] [address] [facility] [address] [place] [address] Angelina Zaldivar MD Samples (Bydureon) 07/07/19 17 Refill [facility] [address] [place] [address] Omi Daly, DO Medication Refill 07/04/19 17 Telephone [facility] [address] [place] [address] Angelina Zaldivar MD Reschedule 06/29/19 17 Refill [facility] [address] [place] [address] Omi Daly, DO Medication Refill 06/23/19 17 Refill [facility] 100 [place] [address] Omi Daly, DO Medication Refill 06/21/19 17 Telephone [facility] [address] [facility] [address] [place] [address] Angelina Zaldivar MD Samples 06/21/19 17 Refill [facility] [address] [place] [address] Patsy Padron MD Medication Refill 06/19/19 17 Refill [facility] [address] [place] [address] Malika, Omi, DO Medication Refill 06/18/19 17 9:00 AM EDT Office Visit [facility] [address] [place] [address] Vernon Salinas MD Dermatitis (Primary Dx) 05/26/19 17 Refill [facility] [address] [place] [address] Amlika, Omi, DO Medication Refill 05/25/19 17 Refill [facility] [address] [place] [address] Malika, Omi, DO Medication Refill 05/24/19 17 Refill [facility] [address] [place] [address] MalikaOmi, DO Medication Refill 05/19/19 17 Telephone [facility] [address] [place] [address] MalikaOmi gasca, DO Sore Throat 04/10/19 17 Telephone [facility] [address] [place] [address] Emiliana Lu, RMA Back Pain 04/04/19 17 Refill [facility] [address] [place] [address] MalikaOmi, DO Medication Refill 04/04/19 17 8:30 AM EST Office Visit [facility] [address] [place] [address] Omi Daly, DO Back pain with left-sided radiculopathy (Primary Dx); Controlled type 2 diabetes mellitus without complication, without long-term current use of insulin ([facility]) 04/04/19 17 11:15 AM EST Office Visit [facility] [address] [address] Angelina Zaldivar MD Type 2 diabetes mellitus without complication, without long-term current use of insulin (HCC) (Primary Dx); Hypertension associated with diabetes (HCC); Hyperlipidemia associated with type 2 diabetes mellitus (HCC); Vitamin D deficiency; Vitamin B12 deficiency 03/30/19 17 4:00 PM EST - 03/30/19 11:59 PM EST Hospital Encounter [facility] [address] [facility] [place] [address] Type 2 diabetes mellitus wit h complication (HCC) Discharge Disposition: Home or Self Care 03/24/19 17 Refill [facility] [address] [place] [address] Omi Daly, Medication Refill 03/24/19 17 Refill [facility] [address] [place] [address] Patsy Padron MD Medication Refill 03/23/19 17 Telephone [facility] [address] [facility] [address] [place] [address] Angelina Zaldivar MD Samples 03/22/19 17 Refill [facility] [address] [place] [address] Omi Daly, Medication Refill 03/20/19 17 Telephone [facility] [address] [address] Angelina Zaldivar MD Labs Only (Reminder ) 03/09/20 16 Refill [facility] [address] [place] [address] Omi Daly DO Medication Refill 03/01/20 16 Telephone [facility] [address] [address] Angelina Zaldivar MD Samples 02/12/20 16 Refill [facility] [address] [place] [address] Omi Daly, DO Medication Refill 02/12/20 16 Refill [facility] [address] [place] [address] Omi Daly, DO Medication Refill 01/28/20 16 Telephone [facility] [address] [place] [address] Angelina Zaldivar MD No Show; Reschedule 01/25/20 16 Telephone [facility] [address] [employer] [address] [place] [address] Angelina Zaldivar MD Samples 01/25/20 16 Telephone [facility] [address] [place] [address] Angelina Zaldivar MD Labs Only (Lab Reminder ) 01/10/20 16 Refill [facility] [address] [place] [address] Omi Daly, DO Medication Refill 01/04/20 16 Refill [facility] [address] [place] [address] Omi Daly, DO Medication Refill 12/27/19 16 Telephone [facility] [address] [place] [address] Angelina Zaldivar MD Samples (Bydureon.); Dysuria 12/08/19 16 Refill [facility] [address] [place] [address] Omi Daly, DO Medication Refill 12/05/19 16 Refill [facility] [address] [place] [address] Omi Daly, DO Medication Refill 12/04/19 16 Refill [facility] [address] [place] [address] Omi Daly DO Medication Refill 11/30/19 16 Refill [facility] [address] [place] [address] Angelina Zaldivar MD Medication Refill 11/30/19 16 Refill [facility] [address] [place] [address] Angelina Zaldivar MD Medication Refill 11/29/19 16 Telephone [facility] [address] [place] [address] Angelina Zaldivar MD Samples 11/26/19 16 Telephone [facility] [address] [place] [address] Omi Daly DO Appointment Needed 11/18/19 16 Telephone [facility] [address] [place] [address] Angelina Zaldivar MD Samples 10/12/19 16 7:55 AM EDT Office Visit [facility] [address] [place] [address] Angelina Zaldivar MD Type 2 diabetes mellitus with complication (HCC) (Primary Dx); Vitamin B12 deficiency; Hypertension associated with diabetes (HCC); Hyperlipidemia associated with type 2 diabetes mellitus (HCC) 10/11/19 16 4:50 PM EDT - 10/11/19 16 11:59 PM EDT Hospital Encounter [facility] [address] [place] [address] Type 2 diabetes mellitus without complication (HCC) Discharge Disposition: Home or Self Care 10/08/19 16 Refill [facility] [address] [place] [address] Patsy Padron MD Medication Refill 10/06/19 16 Telephone [facility] 1500 [facility] [address] [place] [address] Angelina Zaldivar MD Labs Only 09/23/19 16 10:15 AM EDT Office Visit [facility] [address] [place] [address] Omi Daly, Dysuria (Primary Dx); Chronic fatigue; Insomnia, persistent 09/22/19 16 Telephone [facility] [address] [place] [address] Omi Daly, Other 09/18/19 16 11:40 AM EDT - 09/18/19 16 11:59 PM EDT Hospital Encounter [facility] [address] [facility] [place] [address] Other fatigue Discharge Disposition: Home or Self Care 09/18/19 16 11:15 AM EDT Office Visit [facility] [address] [place] [address] Daniela Garcia APRN Other fatigue (Primary Dx) 09/15/19 16 Telephone [facility] 1500 [facility] [address] [place] [address] Angelina Zaldivar MD Samples 09/13/19 16 Refill [facility] [address] [facility] [address] [place] [address] Angelina Zaldivar MD Medication Refill 08/24/19 16 Refill [facility] [address] [place] [address] Omi Daly DO Medication Refill 08/06/19 16 Refill [facility] [address] [place] [address] Patsy Padron MD Medication Refill 08/03/19 16 Refill [facility] [address] [address] Angelina Zaldivar MD Medication Refill 08/02/[address] [address] Angelina Zaldivar MD Samples 07/26/19 16 Refill [facility] [address] [place] [address] Omi Dlay DO Medication Refill 07/09/[address] [address] Angelina Zaldivar MD Other (Cost of Bydureon) 07/09/19 16 Orders Only [address] [address] Sasha Ramos RN,CDE Type 2 diabetes mellitus with complication (HCC) (Primary Dx) 07/09/19 16 7:55 AM EDT Office Visit [address] [address] Angelina Zaldivar MD Type 2 diabetes mellitus without complication (HCC) (Primary Dx); Hypertension associated with diabetes (HCC); Hyperlipidemia associated with type 2 diabetes mellitus (HCC); Vitamin D deficiency 07/06/19 16 1:05 PM EDT - 07/06/19 16 11:59 PM EDT Hospital Encounter [facility] [address] [facility] [place] [address] Controlled type 2 diabetes mellitus without complication (HCC) Discharge Disposition: Home or Self Care 07/02/19 [address] [address] Angelina Zaldivar MD Labs Only (Lab Reminder) 06/26/19 16 Refill [facility] [address] [place] [address] Omi Daly DO Medication Refill 06/16/19 16 Telephone [facility] [address] [place], [place] [address] Omi Daly, Medication Management 06/14/19 16 Telephone [facility] [address] [place], [place] [address] Omi Daly, Other 06/11/19 16 2:17 PM EDT - 06/11/19 16 11:59 PM EDT Hospital Encounter [facility] [place] [address] Screening PSA (prostate specific antigen) Discharge Disposition: Home or Self Care 06/11/19 16 9:15 AM EDT Office Visit [facility] [address] [place], [place] [address] Omi Daly, Dysuria (Primary Dx); BPH with urinary obstruction; Screening PSA (prostate specific antigen) 05/24/19 16 Refill [facility] [address] [place] [address] Starla Nice MA Medication Refill 05/04/19 16 Refill [facility] [address] [place] [address] Patsy Padron MD Medication Refill 05/03/19 16 Telephone [facility] [address] [place] [address] Starla Nice MA Other 05/01/19 16 9:15 AM EST Office Visit [facility] [address] [place], [place] [address] Omi Daly DO Dysuria (Primary Dx); Acute bacterial sinusitis; BPH with urinary obstruction; Encounter for screening colonoscopy 04/29/19 16 Refill [facility] [address] [place], [place] [address] Omi Daly DO Medication Refill 04/20/19 16 Refill [facility] [address] [place] [address] Omi Daly, DO Medication Refill 04/15/19 16 Refill [facility] [address] [place] [address] Omi Daly, DO Medication Refill 04/14/19 16 Telephone [facility] [address] [facility] [address] [place] [address] Angelina Zaldivar MD Visit Follow Up 04/07/19 16 7:55 AM EST Office Visit [facility] 1500 [facility] [address] [place] [address] Angelina Zaldivar MD Controlled type 2 diabetes mellitus without complication (HCC) (Primary Dx); Hypertension associated with diabetes (HCC); Hyperlipidemia associated with type 2 diabetes mellitus (HCC); Vitamin B12 deficiency; Vitamin D deficiency 04/06/19 16 2:15 PM EST - 04/06/19 16 11:59 PM EST Hospital Encounter [facility] [address] [place] [address] Postoperative anemia due to acute blood loss (Primary Dx); Controlled type 2 diabetes mellitus without complication (HCC); Vitamin B12 deficiency; Vitamin D deficiency; S/P CABG x 3; Ischemic heart disease; Hyperlipidemia Discharge Disposition: Home or Self Care 03/29/19 16 Telephone [facility] [address] [facility] [address] [place] [address] Angelina Zaldivar MD Reschedule 03/26/19 16 Telephone [facility] [address] [facility] [address] [place] [address] Angelina Zaldivar MD Labs Only 03/18/19 16 Refill [facility] [address] [place] [address] Omi Daly, DO Medication Refill 03/08/20 15 Refill [facility] [address] [place] [address] Omi Daly, DO Medication Refill 02/23/20 15 Telephone [facility] [place] [address] [facility] [address] [place] [address] Angelina Zaldivar MD Medication Reaction (canagliflozin (INVOKANA) 300 mg Oral Tablet) 02/23/20 15 Refill [facility] [address] [place] [address] Edgar Dodson MD Medication Refill 02/20/20 15 Refill [facility] [address] [place] [address] Edgar Dodson MD Medication Refill 02/14/20 15 Refill [facility] [address] [place] [address] Omi Daly, DO Medication Refill 02/13/20 15 Patient Outreach [facility] [address] [place] [address] Elba Tapia RN Care Management - Chart Review 02/08/20 15 Refill [facility] [address] [place] [address] Omi Daly, DO Medication Refill 01/09/20 15 Refill [facility] [address] [place] [address] Edgar Dodson MD Medication Refill 01/08/20 15 Refill [facility] [address] [place] [address] Omi Daly, DO Medication Refill 01/06/20 15 Refill [facility] [address] [place] [address] Omi Daly, DO Medication Refill 12/26/19 15 7:40 AM EDT Office Visit [facility] [address] [facility] [address] [place] [address] Angelina Zaldivar MD Controlled type 2 diabetes mellitus without complication (HCC) (Primary Dx); Vitamin D deficiency; Vitamin B12 deficiency; Hypertension associated with diabetes (HCC); Hyperlipidemia associated with type 2 diabetes mellitus (HCC) 12/25/19 15 9:25 AM EDT - 12/25/19 11:59 PM EDT Hospital Encounter [facility] [address] [place] [address] Controlled type 2 diabetes mellitus without complication (HCC); Hyperlipidemia; Vitamin B12 deficiency; Vitamin D deficiency; Postoperative anemia due to acute blood loss; S/P CABG x 3; Ischemic heart disease; Essential hypertension Discharge Disposition: Home or Self Care 12/24/19 15 6:15 PM EDT Hospital Encounter [facility] [address] [place] [address] Left without seen 12/23/19 15 Telephone [facility] [address] [facility] [address] [place] [address] Angelina Zaldivar MD Labs Only 12/10/19 15 Telephone [facility] [address] [place] [address] Edgar Dodson MD Visit Follow Up 12/10/19 15 Patient Outreach [facility] [address] [place] [address] Elba Tapia RN Care Transition (Follow up call.) 12/07/19 15 Refill [facility] [address] [place] [address] Edgar Dodson MD Medication Refill 12/04/19 15 3:15 PM EDT Office Visit [facility] [address] [place] [address] Edgar Dodson MD Controlled type 2 diabetes mellitus without complication (HCC) (Primary Dx); Essential hypertension; Gastroesophageal reflux disease without esophagitis 12/03/19 15 Refill [facility] [address] [place] [address] Omi Daly DO Medication Refill 11/14/19 15 Telephone [facility] [address] [place] [address] Edgar Dodson MD Other 09/24/19 15 Telephone [facility] [address] [address] Angelina Zaldivar MD Results 09/24/19 8:00 AM EDT - 09/24/19 11:59 PM EDT Hospital Encounter [facility] [address] [place] [address] Controlled type 2 diabetes mellitus without complication (HCC); Hypokalemia Discharge Disposition: Home or Self Care 09/24/19 7:40 AM EDT Office Visit [facility] [address] [address] Angelina Zaldivar MD Controlled type 2 diabetes mellitus without complication (HCC) (Primary Dx); Essential hypertension; Hyperlipidemia; Vitamin D deficiency; Vitamin B12 deficiency 09/23/19 11:35 AM EDT - 09/23/19 11:59 PM EDT Hospital Encounter [facility] [address] [place] [address] Uncontrolled type 2 diabetes mellitus with microalbuminuria or microproteinuria (HCC); Vitamin B12 deficiency; Vitamin D deficiency; Postoperative anemia due to acute blood loss; S/P CABG x 3; CAD (coronary artery disease); Chest pain; Ischemic heart disease; Hyperlipidemia; GERD (gastroesophageal reflux disease); DM (diabetes mellitus), type 2, uncontrolled (HCC); HTN (hypertension) Discharge Disposition: Home or Self Care 09/21/19 15 Refill [facility] [address] [place] [address] Omi Daly DO Medication Refill 09/19/19 15 Telephone [facility] [address] [address] Angelina Zaldivar MD Reschedule (LABS) 09/11/19 15 Telephone [facility] [address] [address] Angelina Zaldivar MD 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) 09/06/19 15 Refill [facility] [address] [place] [address] Edgar Dodson MD Medication Refill 09/04/19 15 Patient Outreach [facility] [address] [place] [address] Elba Tapia RN Care Transition (Follow up call.) 08/28/19 15 Refill [facility] [address] [place] [address] Omi Daly, Medication Refill 08/22/19 15 Refill [facility] [address] [place] [address] Omi Daly, Medication Refill 08/21/19 15 Telephone [facility] [address] [address] Angelina Zaldivar MD Other ([employer] Patient Assistance Program) 08/21/19 15 9:40 AM EDT Office Visit [facility] [address] [address] Angelina Zaldivar MD Hyperlipidemia (Primary Dx); Uncontrolled type 2 diabetes mellitus with microalbuminuria or microproteinuria (HCC); Essential hypertension; Vitamin D deficiency; Vitamin B12 deficiency; Tinea pedis of right foot 08/18/19 15 Refill [facility] [address] [place] [address] Edgar Dodson MD Medication Refill 08/18/19 15 Refill [facility] [address] [place] [address] Omi Daly, DO Medication Refill 08/07/19 15 Refill [facility] [address] [place] [address] Edgar Dodson MD Medication Refill 08/05/19 15 Telephone [facility] [address] [place] [address] Edgar Dodson MD Referral 08/01/19 15 Telephone [facility] [address] [place] [address] Edgar Dodson MD Other 07/27/19 15 Refill [facility] [address] [place] [address] Omi Daly, DO Medication Refill 07/26/19 15 Telephone [facility] [address] [place] [address] Starla Nice MA [facility] 07/19/19 15 Refill [facility] [address] [place] [address] Omi Daly, Medication Refill 07/06/19 15 Refill [facility] [address] [place] [address] Omi Daly, DO Medication Refill 07/05/19 15 Refill [facility] [address] [place] [address] Edgar Dodson MD Medication Refill 06/23/19 15 Refill [facility] [address] [place] [address] Omi Daly, DO Medication Refill 06/17/19 15 Refill [facility] [address] [place] [address] Edgar Dodson MD Medication Refill 06/16/19 15 Refill [facility] [address] [place] [address] Edgar Dodson MD Medication Refill 06/12/19 15 Patient Outreach [facility] [address] [place] [address] Elba Tapia RN Care Transition (Follow up call.) 06/12/19 15 Refill [facility] [address] [place] [address] Omi Daly, DO Medication Refill 06/10/19 15 Telephone [facility] [address] [place] [address] Edgar Dodson MD Medication Management 06/06/19 15 Refill [facility] [address] [place] [address] Edgar Dodson MD Medication Refill 06/01/19 15 Refill [facility] [address] [place] [address] Omi Daly, DO Medication Refill 05/30/19 15 Telephone [facility] [address] [place] [place], [facility] Edgar Dodson MD Medication Refill 05/21/19 15 Refill [facility] [address] [place] [address] Omi Daly, DO Medication Refill 05/09/19 15 Refill [facility] [address] [place] [address] Omi Daly, DO Medication Refill 05/04/19 15 Refill [facility] [address] [place] [address] Edgar Dodson MD Medication Refill 04/21/19 15 Orders Only [facility] [address] [place] [address] Carlee Rose CMA Vitamin D deficiency (Primary Dx) 04/18/19 15 2:15 PM EST - 04/18/19 15 11:59 PM EST Hospital Encounter [facility] [place] [address] HTN (hypertension); Hyperlipidemia; Routine general medical examination at a health care facility; Vitamin D deficiency Discharge Disposition: Home or Self Care 04/18/19 15 8:15 AM EST Office Visit [facility] [address] [place] [address] Edgar Dodson MD Routine general medical examination at a health care facility (Primary Dx); DM (diabetes mellitus), type 2, uncontrolled (HCC); HTN (hypertension); Hyperlipidemia; CAD (coronary artery disease); Vitamin D deficiency; Sinusitis 04/07/19 15 Telephone [facility] [address] [place] [address] Burke Madeline Flores, RMA Head Lice 04/06/19 15 Telephone [facility] [address] [place] [address] Tex Starla, MA Head Lice 04/06/19 15 Refill [facility] [address] [place] [address] Edgar Dodson MD Medication Refill 04/06/19 15 Refill [facility] [address] [place] [address] Omi Daly, Medication Refill 03/28/19 15 Refill [facility] [address] [place] [address] Edgar Dodson MD Medication Refill 03/25/19 15 Telephone [facility] [address] [place] [address] Edgar Dodson MD Medication Management 03/23/19 15 Telephone [facility] [address] [place] [address] Edgar Dodson MD Other 03/18/19 15 Telephone [facility] [address] [place] [address] Edgar Dodson MD Medication Management 03/14/19 15 Telephone [facility] [address] [place] [address] Edgar Dodson MD Medication Management 03/13/19 15 Telephone [facility] [address] [place] [address] Omi Daly, Medication Refill 03/11/20 14 Telephone [facility] [address] [place] [address] Omi Daly DO Medication Refill 02/28/20 14 Refill [facility] [address] [place] [address] Edgar Dodson MD Medication Refill 02/18/20 14 Telephone [facility] [place] [address] Starla Nice MA Head Lice 02/03/20 14 Telephone [facility] [place] [address] Omi Daly, Other 02/01/20 14 3:00 PM EST - 02/01/20 14 11:59 PM EST Hospital Encounter [facility] ANTHONY PROCESSING [facility] [place] [address] Hyperlipidemia Discharge Disposition: Home or Self Care 02/01/20 14 8:45 AM EST Office Visit [facility] [address] Omi Daly, DM (diabetes mellitus), type 2, uncontrolled (HCC) (Primary Dx); HTN (hypertension); Hyperlipidemia 01/27/20 14 Refill [facility] [address] [place] [address] Edgar Dodson MD Medication Refill 01/20/20 14 Patient Outreach [address] [place] [address] Elba Tapia mumps developer (Follow up call.) 01/06/20 14 Refill [facility] [address] [place] [address] Edgar Dodson MD Medication Refill 12/21/19 14 Refill [facility] [address] [place] [address] Edgar Dodson MD Medication Refill 12/13/19 14 Refill [facility] [address] [place] [address] Edgar Dodson MD Medication Refill 11/22/19 14 Patient Outreach [facility] [address] [place] [address] Elba Tapia, mumps developer (Follow up call.) 10/29/19 14 8:40 PM EDT - 10/29/19 14 11:59 PM EDT Hospital Encounter [facility]THONY PROCESSING [facility] [place] [address] DM (diabetes mellitus), type 2, uncontrolled (HCC) Discharge Disposition: Home or Self Care 10/29/19 14 1:15 PM EDT Clinical Support [facility] [address] [place] [address] Michelle Baig RMA DM (diabetes mellitus), type 2, uncontrolled (HCC) (Primary Dx) 10/25/19 14 Refill [facility] [address] [place] [address] Edgar Dodson MD Medication Refill 10/16/19 14 Patient Outreach [facility] [address] [place] [address] Elba Tapia RN Care Transition (Follow up call.) 10/16/19 14 Telephone [facility] [address] [place] [address] Edgar Dodson MD Medication Refill 10/15/19 14 Telephone [facility] [address] [place] [address] Edgar Dodson MD Medication Refill 10/07/19 14 1:30 PM EDT Office Visit [facility] [address] [place] [address] Omi Daly DO DM (diabetes mellitus), type 2, uncontrolled (HCC) (Primary Dx); GERD (gastroesophageal reflux disease) 09/26/19 14 Telephone [facility] [address] [place] [address] Starla Nice MA Other 09/26/19 14 12:20 PM EDT Office Visit [facility] [address] [place] [address] Samuel Jo MD S/P CABG x 3 (Primary Dx) 09/23/19 14 Patient Outreach [facility] [address] [place] [address] Whitney Pack RN Care Transition (Hospital follow up call week 4) 09/20/19 14 Patient Outreach [facility] [address] [place] [id number] Whitney Pack RN Care Transition (hospital follow up call week 3) 09/17/19 14 1:45 PM EDT Office Visit [facility] [address] [address] Jeffy Fuentes MD CAD (coronary artery disease) (Primary Dx); HTN (hypertension); S/P CABG x 3; Ischemic heart disease 09/13/19 14 Orders Only [facility] [address] [place] [address] Patsy Padron MD DM (diabetes mellitus), type 2, uncontrolled (HCC) (Primary Dx) 09/11/19 14 Telephone [facility] [address] [place] [address] Cathi Torres RN Care Transition (Follow up CABG) 09/09/19 14 Telephone [facility] [address] [place] [address] Kavitha Spence MA Other 09/08/19 14 Refill [facility] [address] [place] [address] Edgar Dodson MD Medication Refill 09/06/19 14 Telephone [facility] [address] [place] [address] Starla Nice MA Other 09/05/19 14 11:15 AM EDT Office Visit [facility] [address] [place] [address] MalikaOmi, Cellulitis (Primary Dx); DM (diabetes mellitus), type 2, uncontrolled (HCC) 09/04/19 14 Telephone [facility] [address] [place] [address] Edgar Dodson MD Other 09/04/19 14 Telephone [facility] [address] [place] [address] Carlee Rose CMA Blood Sugar Problem 09/03/19 14 Telephone [facility] [address] [place] [address] Cathi Torres RN Care Transition (Hospital f/u CABG) 09/02/19 14 3:00 PM EDT Office Visit [facility] [address] [place] [address] MalikaOmi, DM (diabetes mellitus), type 2, uncontrolled (HCC) (Primary Dx); S/P CABG x 3; CAD (coronary artery disease); HTN (hypertension) 08/24/19 14 12:34 PM EDT - 08/30/19 14 2:45 PM EDT Hospital Encounter [facility] [place] [address] Tod Wolf MD [place], [place], [...] 14 12:20 PM EDT Surgery EDG [facility] [place] [address] Samuel Jo MD CORONARY ARTERY BYPASS GRAFT 08/24/19 14 Refill [facility] [address] [place] [address] Patsy Padron MD Medication Refill 08/23/19 14 8:50 AM EDT - 08/24/19 14 11:39 AM EDT Hospital Encounter [facility] [address] [place] [address] Jeffy Fuentes MD Discharge Disposition: Short Term Hospital 08/23/19 14 11:00 AM EDT - 08/23/19 14 12:00 PM EDT Surgery Jeffy Fuentes MD CARDIAC PROCEDURE - [facility]/FTT-UPSTREAM BIOMANUFACTURING TECHNICIAN ONLY 08/20/19 14 2:10 PM EDT - 08/20/19 14 11:59 PM EDT Hospital Encounter [facility] [address] [place] [address] HTN (hypertension) (Primary Dx); Chest pain; Ischemic heart disease; DM (diabetes mellitus) (HCC); Hyperlipidemia; GERD (gastroesophageal reflux disease) Discharge Disposition: Home or Self Care 08/20/19 14 1:45 PM EDT Office Visit [facility] [place] [address] [place] [address] Jeffy Fuentes MD HTN (hypertension) (Primary Dx); Chest pain; Ischemic heart disease 08/17/19 14 9:30 AM EDT Office Visit [facility] [address] [place] [address] Omi Daly DO Type II or unspecified type diabetes mellitus without mention of complication, uncontrolled (HCC) (Primary Dx); Chest pain, unspecified; Hyperlipidemia 07/24/19 14 Telephone [facility] [address] [place] [address] Carlee Rose, DEONNA Medication Refill 07/24/19 14 Refill [facility] [address] [place] [address] Carlee Rose, TYPESETTING SUPERVISOR Medication Refill 07/21/19 14 Refill [facility] [address] [place] [address] Omi Daly DO Medication Refill 07/11/19 14 Refill [facility] [address] [place] [address] Edgar Dodson MD Medication Refill 07/02/19 14 Refill [facility] [address] [place] [address] Edgar Dodson MD Medication Refill 06/24/19 14 Telephone [facility] [address] [place] [address] Carlee Rose, [facility] Medication Refill 04/08/19 14 Refill [facility] [address] [place] [address] Emiliana Lu, RMA Medication Refill 03/01/20 13 Refill [facility] [address] [place] [address] Edgar Dodson MD Medication Refill 02/08/20 13 Telephone [facility] [address] [place] [address] Edgar Dodson MD Medication Refill 02/08/20 13 Refill [facility] [address] [place] [address] Michelle Baig, RMA Medication Refill 01/11/20 13 Refill [facility] [address] [place] [address] Edgar Dodson MD Medication Refill 01/05/20 13 Telephone [facility] [address] [place] [address] Mitzi Porsha Ana Rosa, CCMA Medication Refill 01/05/20 13 Refill [facility] [address] [place] [address] Edgar Dodson MD Medication Refill 12/22/19 13 Telephone [facility] [address] [place] [address] Edgar Dodson MD Medication Refill 12/12/19 13 Refill [facility] [address] [place] [address] Patsy Padron MD Medication Refill 12/03/19 13 Telephone [facility] [address] [place] [address] Edgar Dodson MD Medication Refill 11/09/19 13 Telephone [facility] [address] [place] [address] Aramis VaJORGE pak Nephrolithiasis 11/01/19 13 Refill [facility] [address] [place] [address] Starla Nice MA Medication Refill 10/18/19 13 Telephone [facility] [address] [place] [address] Edgar Dodson MD Medication Refill 09/22/19 13 Refill [facility] [address] [place] [address] Patsy Padron MD Medication Refill 09/18/19 13 3:31 PM EDT - 09/18/19 13 11:59 PM EDT Hospital Encounter [facility]G LAB ANTHONY PROCESSING [facility] [address] [place], [facility] HTN (hypertension); Hyperlipidemia; DM (diabetes mellitus) (HCC) Discharge Disposition: Home or Self Care 09/18/19 13 8:45 AM EDT Office Visit [facility] [address] [place] [address] Edgar Dodson MD Routine general medical examination at a health care facility (Primary Dx); DM (diabetes mellitus) (HCC); HTN (hypertension); Hyperlipidemia; GERD (gastroesophageal reflux disease) 08/28/19 13 Refill [facility] [address] [place] [address] Edgar Dodson MD Medication Refill 07/14/19 13 Telephone [facility] [address] [place] [address] Edgar Dodson MD Medication Refill 06/14/19 13 Telephone [facility] [address] [place] [address] Patsy Padron MD Medication Refill 06/11/19 13 Orders Only [facility] [address] [place] [address] Edgar Dodson MD Shingles (Primary Dx) 06/06/19 13 10:00 AM EDT Office Visit [facility] [address] [place] [address] Edgar Dodson MD DM (diabetes mellitus) (HCC) (Primary Dx); HTN (hypertension); Hyperlipidemia; GERD (gastroesophageal reflux disease); Cellulitis 06/02/19 13 Refill [facility] [address] [place] [address] Starla Nice MA Medication Refill 05/21/19 13 Refill [facility] [address] [place] [address] Edgar Dodson MD Medication Refill 05/09/19 13 Refill [facility] [address] [place] [address] Patsy Padron MD Medication Refill 04/12/19 13 Refill [facility] [address] [place] [address] Edgar Dodson MD Medication Refill 03/25/19 13 Telephone [facility] [address] [place] [address] Starla Nice MA Medication Refill 02/13/20 12 Telephone [facility] [address] [place] [address] Edgar Dodson MD Medication Refill 01/26/20 12 Telephone [facility] [address] [place] [address] Starla Nice MA Other 01/20/20 12 Refill [facility] [address] [place] [address] Edgar Dodson MD Medication Refill 12/29/19 12 Telephone [facility] [place] [address] [place] [address] Cindy Frey (Diabetes Education) 12/29/19 12 Telephone [facility] [address] [place] [address] Va Self, RMA Nasal Congestion 12/28/19 12 Telephone [facility] [address] [place] [address] Va Self, RMA Obesity 12/27/19 12 Telephone [facility] [address] [place] [address] Porsha Cartagena, [facility] Other 12/08/19 12 Refill [facility] [address] [place] [address] Omi Daly, DO Medication Refill 10/17/19 12 Refill [facility] [address] [place] [address] Edgar Dodson MD Medication Refill 10/07/19 12 4:03 PM EDT - 10/07/19 12 11:59 PM EDT Hospital Encounter [facility] ANTHONY PROCESS[facility] [place] [address] HTN (hypertension); DM (diabetes mellitus) ([facility]); Hyperlipidemia Discharge Disposition: Home or Self Care 10/07/19 12 10:00 AM EDT Office Visit [address] [address] Edgar Dodson MD DM (diabetes mellitus) (HCC); HTN (hypertension); GERD (gastroesophageal reflux disease); Hyperlipidemia 10/06/19 12 Refill [facility] [address] [place] [address] Edgar Dodson MD Medication Refill 09/01/19 12 Refill [facility] [address] [place] [address] Omi Daly, Medication Refill 09/01/19 12 Refill [facility] [address] [place] [address] Edgar Dodson MD Medication Refill 08/07/19 12 Refill [facility] [address] [place] [address] Edgar Dodson MD Medication Refill 07/25/19 12 Refill [facility] [address] [place] [address] Edgar Dodson MD Medication Refill 07/04/19 12 Telephone [facility] [place] [address] [place] [address] Cindy Frey Diabetes (dietary consult request) 06/25/19 12 Refill [facility] [address] [place] [address] Omi Daly, Medication Refill 06/20/19 12 Telephone [facility] [address] [place] [address] Edgar Dodson MD Other 05/15/19 12 Telephone [facility] [address] [place] [address] Henry Carrillo, LUIS Medication Refill (med) 05/15/19 12 Refill [facility] [address] [place] [address] Omi Daly, Medication Refill 05/13/19 12 Refill [facility] [address] [place] [address] Edgar Dodson MD Medication Refill 04/01/19 12 Telephone [facility] [address] [place] [address] Edgar Dodson MD Medication Refill 03/06/20 11 Refill [facility] [address] [place] [address] Omi Daly, Medication Refill 03/06/20 11 Refill [facility] [address] [place] [address] Edgar Dodson MD Medication Refill 02/17/20 11 10:15 AM EST Office Visit [facility] [address] [place], [place] [address] Edgar Dodson MD Flank pain; Frequent urination; Hematuria 02/04/20 11 2:00 PM EST Office Visit [facility] [address] [place], [place] [address] Omi Daly DO DM (diabetes mellitus) (HCC) (Primary Dx) 12/11/19 11 10:30 AM EDT Office Visit [facility] [address] [place], [place] [address] Patsy Padron MD Urinary frequency; Abdominal pain; Peripheral edema 12/04/19 11 Refill [facility] [address] [place], [place] [address] Omi Daly DO Medication Refill 12/04/19 11 Refill [facility] [address] [place], [place] [address] Edgar Dodson MD Medication Refill 10/30/19 11 Refill [facility] [address] [place], [place] [address] Omi Daly DO Medication Refill 10/02/19 11 10:45 AM EDT Office Visit [facility] [address] [place], [place] [address] Omi Daly DO Physical exam, annual (Primary Dx) 09/30/19 11 10:15 AM EDT Office Visit [facility] [address] [place], [place] [address] Edgar Dodson MD Cellulitis (Primary Dx); DM (diabetes mellitus) (HCC); GERD (gastroesophageal reflux disease); HTN (hypertension) 09/28/19 11 Telephone [facility] [address] [place], [place] [address] Edgar Dodson MD Medication Refill 08/16/19 11 Telephone [facility] [address] [place] [address] Mitzi Porshayoli Oseguera, CCMA Results 08/14/19 11 2:45 PM EDT - 08/14/19 11 11:59 PM EDT Hospital Encounter [facility] LAB ANTHONY PROCESSING [facility] [place] [address] DM (diabetes mellitus) ([facility]) Discharge Disposition: Home or Self Care 08/14/19 11 10:30 AM EDT Office Visit [facility] [address] [place] [address] Edgar Dodson MD Frequent urination (Primary Dx); DM (diabetes mellitus) (HCC) 08/07/19 11 10:00 AM EDT Office Visit [facility] [address] [place] [address] Patsy Padron MD Bronchitis (Primary Dx) 06/28/19 11 Refill [facility] [address] [place] [address] Michelle Baig RMA Medication Refill 05/15/19 11 Refill [facility] [address] [place] [address] Edgar Dodson MD Medication Refill 04/23/19 11 Telephone [facility] [address] [place] [address] Mesha Nath CMA Medication Refill 04/20/19 11 1:15 PM EST Office Visit [facility] [address] [place] [address] Edgar Dodson MD Hyperlipidemia; GERD (gastroesophageal reflux disease); Back pain 04/05/19 11 Telephone [facility] [address] [place] [address] Starla Nice MA Dental Pain 03/31/19 11 Refill [facility] [address] [place] [address] Edgar Dodson MD Medication Refill 03/08/20 10 Telephone [facility] [address] [place] [address] Starla Nice MA Medication Refill 03/06/20 10 Refill [facility] [address] [place] [address] Edgar Dodson MD Medication Refill 03/03/20 10 Refill [facility] [address] [place] [address] Edgar Dodson MD Medication Refill 03/01/20 10 Telephone [facility] [address] [place] [address] Mesha Nath [facility] Other 02/13/20 10 11:15 AM EST Office Visit [facility] [address] [place] [address] Omi Daly DO DM (diabetes mellitus) (HCC); HTN (hypertension) 02/11/20 10 Telephone [facility] [address] [place] [address] Mesha Nath, [facility] Other 12/17/19 10 Refill [facility] [address] [place] [address] Patricia Ennis RMA Medication Refill 11/17/19 10 Telephone [facility] [address] [place] [address] Starla Nice MA Other 11/17/19 10 Refill [facility] [address] [place] [address] Omi Daly DO Medication Refill 11/17/19 10 Refill [facility] [address] [place] [address] Edgar Dodson MD Medication Refill 11/10/19 10 Telephone [facility] [address] [place] [address] Va Self RMA Medication Management 11/06/19 10 Telephone [facility] [address] [place] [address] Edgar Dodson MD Nasal Congestion 02/08/20 09 12:25 AM EST - 02/08/20 09 11:59 PM EST Emergency [facility] EPIC [facility] UNK [facility] Jarek Pack MD 11/22/19 09 4:35 PM EDT - 11/22/19 09 11:59 PM EDT Hospital Encounter HST EPIC CON UNK [facility] Edgar Dodson MD 08/25/19 08 10:10 PM EDT - 08/26/19 08 12:38 PM EDT Hospital Encounter HST 2B2 Lyle Hines MD 02/06/20 07 4:29 PM EST - 02/06/20 07 11:59 PM EST Hospital Encounter [facility] [address] 12/30/19 07 2:56 PM EDT - 12/30/19 [...] PM EDT Hospital Encounter [facility] Anai Rehman MD 10/17/19 02 12:49 PM EDT - 10/17/19 02 11:59 PM EDT Hospital Encounter HST LAB [facility] Hussein Mccann MD 09/25/19 02 8:47 AM EDT - 09/25/19 02 11:59 PM EDT Hospital Encounter HST GC SPEC SVC GRT Donald Joyce MD 07/12/18 99 10:38 PM EDT - 07/13/18 99 12:39 AM EDT Emergency HST EPIC CON UNK EDG Tod Carter MD 07/11/18 96 7:03 PM EDT - 07/11/18 96 11:59 PM EDT Hospital Encounter HST EPIC CON UNK [facility] 06/24/18 96 8:12 PM EDT - 06/26/18 96 8:00 PM EDT Hospital Encounter HST Austyn Singh 02/20/19 92 12:32 AM EST - 02/20/19 92 12:15 PM EST Hospital Encounter HST 4CS Nikunj Arredondo MD 02/05/19 92 7:40 AM EST - 02/05/19 92 11:59 PM EST Hospital Encounter HST EPIC CON UNK Javi West 03/17/18 92 2:28 PM EST - 03/17/18 92 11:59 PM EST Hospital Encounter HST EPIC CON UNK [facility] Javi Steiner Allergies Active Allergy Reactions Criticality [...] needed for Chest pain. 100 Tablet 3 04/15/2 024 Active Blood Sugar Diagnostic Misc StripIndications: Uncontrolled type 2 diabetes mellitus with hyperglycemia (HCC) Test 3 times daily Dx E11.69 One touch meter 200 Each Active Lancets [facility] MiscIndications:U ncontrolled type 2 diabetes mellitus with hyperglycemia (HCC) Test 3 times daily One Touch Meter Dx E11.69 200 Each Active lidocaine (LIDODERM) 5 % Top Adhesive [...] 11/01/19 24 2:31 PM EDT Active Insulin Daykin, Disposable, (SALENA PEN NEEDLE) 32 gauge x [facility] NeedleIndications :Uncontrolled type 2 diabetes mellitus with [...] Tablet by mouth daily. 30 Tablet 2 Active rosuvastatin (CRESTOR) 20 mg Oral TabletIndications [...] 48 hours. 30 Capsule 6 025 Active fexofenadine (MARILIA) 60 mg Oral TabletIndications :Sore throat,Runny nose Take 1 tablet by mouth twice daily 180 Tablet 025 Active isosorbide mononitrate (IMDUR) 60 mg Oral Tablet Sustained Release 24 hrIndications:Cor onary artery disease involving northway heart without angina pectoris, unspecified vessel or [...] 2 times daily (with meals). 360 Tablet Active ACCU-CHEK GUIDE TEST STRIPS Misc StripIndications: [...] MOUTH TWICE DAILY BEFORE MEAL(S) 180 Tablet Active Lancets (ACCU-CHEK SOFTCLIX LANCETS) Misc MiscIndications:U ncontrolled type 2 diabetes mellitus with hyperglycemia (HCC) USE 1 TO CHECK GLUCOSE THREE TIMES DAILY 200 Each 025 Active Lancets (ACCU-CHEK SOFTCLIX LANCETS) Misc MiscIndications:U ncontrolled type 2 diabetes mellitus with hyperglycemia (HCC) USE 1 TO CHECK GLUCOSE THREE TIMES DAILY 200 Each 025 2024 Discontinued Active Problems Patient Care Coordination No te Formatting of this note migh t be different from the original. A1C>9 [facility] Langston MD Interventional Pain Protocol: Mata report completed (EVERY 3 MONTHS) (04/20/2022) Pharmacy: [facility] [address] [place] [id number] [address] [facility] - [phone] Spine Center additional info (Transportation, WC, Compound, [...] Heart murmur 07/08/2021 Primary osteoarthritis, right shoulder 1 Encounter for pre-operative cardiovascular clear ance 07/22/2020 [...] Sister Social History Smoking Status as of 02/14/2025 Tobacco Use Types Packs/Day Years Used Date Smoking Tobacco: Never Assessed [facility] Utilities Answer Date Recorded In [...] Date Recorded PHQ-2 Total Score 0 01/01/2024 [facility] - Occupational Stress [...] things needed for daily living? No [facility]24[facility]20[facility] Transportation Answer D ate Recorded [...] on file Medical Devices Implanted Type Area Scratcher Device Identifier Shelf Expiration Date Model / Serial / Lot Stent Coronary System 4.00 Mm X 18 Mm Xience [employer] - [id number] Implanted:Qty: 1 on 02/16/2022 by Sapphire Munguia MD at [facility] N/A: DEBBIEDA BOOKER LAB:VASC DEV [id number] 08/22/2023 [id number] / / [id number] Procedures Procedure Name Priority Date/Time Associated Diagnosis [...] EDT ADMIT Routine 10/31/2023 1:24 PM EDT UPSTREAM BIOMANUFACTURING TECHNICIAN HEMODYNAMIC WAVEFORMS Routine 10/31/2023 1:11 PM EDT [...] (shortness of breath) ASHD (arteriosclerotic heart disease) UPSTREAM BIOMANUFACTURING TECHNICIAN HEMODYNAMIC WAVEFORMS Routine 10/01/2023 8:48 AM EDT PT / INR Routine 09/29/2023 9:29 AM EDT Dyslipidemia associated with type 2 diabetes mellitus (HCC) Coronary artery disease involving northway heart without angina pectoris, unspecified vessel or lesion type BASIC METABOLIC PANEL Routine 09/29/2023 9:29 AM EDT Dyslipidemia associated with type 2 diabetes mellitus (HCC) Coronary artery disease involving northway heart without angina pectoris, unspecified vessel or lesion type CBC Routine 09/29/2023 9:29 AM EDT Dyslipidemia associated with type 2 diabetes mellitus (HCC) Coronary artery disease involving northway heart without angina pectoris, unspecified vessel or [...] 8:46 AM EDTThis note is in progress. [facility] Surgical Consultation Note Admit Date: 08/18/2022 LOS: 1 day Body mass index is 35.65 kg/m . IMPRESSION Active Hospital Problems Diagnosis *CHF (congestive heart failure), NYHA class I, acute on chronic,combined (HCC) Right groin mass Obstructive sleep apnea syndrome BPH with obstruction/lower urinary tract symptoms Uncontrolled type 2 diabetes mellitus with hyperglycemia ([facility]) S/P CABG x 3 Hyperlipidemia GERD [...] tablet 5 mg, 5 mg, Oral, Daily, RodriguezNimisha glover, DO, 5 mg at 08/19/22 0814 morphine injection 2 mg, 2 mg, Intravenous, Q4H PRN OR morphineinjection 3-4 mg, 3-4 mg, Intravenous, Q4H PRN, Nimisha Rodriguez, nitroGLYCERIN (NITROSTAT) SL tablet 0.4 mg, 0.4 mg, Sublingual, Q5 MinPRN, Jennifer, Nimisha, DO ondansetron (ZOFRAN) tablet 4 mg, 4 mg, Oral, Q4H PRN ORondansetron (ZOFRAN) injection 4 mg, 4 mg, Intravenous, Q4H PRN, Nimisha Rodriguez, DO pantoprazole (PROTONIX) tablet 40 mg, 40 mg, Oral, BID, Nimisha Rodriguez, , 40 mg at 08/19/22 0814 polyethylene glycol (GLYCOLAX, MIRALAX) packet 17 g, 17 g, Oral, BIDPRN, Jennifer, Nimisha, rosuvastatin (CRESTOR) tablet 20 mg, 20 mg, Oral, Nightly, Nimisha Rodriguez, PAST MEDICAL HISTORY Past Medical History: Diagnosis Date Allergy Arthritis Chronic cough DM (diabetes mellitus) ([facility]) 02/12/2010 GERD (gastroesophageal reflux disease) H/O heart surgery Heart attack ([facility]) Heart disease High cholesterol History of chicken pox History of measles, mumps, or rubella HTN (hypertension) 02/12/2010 pt states never had HTN Hyperlipidemia Kidney stones Low testosterone [place] (myocardial infarction) ([facility]) Nocturia 05/09/2019 Prostate disorder Urinary incontinence PAST SURGICAL HISTORY Past Surgical History: Procedure Laterality Date ANGIOPLASTY 1990 CARDIAC SURGERY N/A 08/25/2013 CORONARY ARTERY BYPASS GRAFTS X 3 USING BILATERAL SAPHENOUS VEIN X 2 ANDLEFT INTERNAL MAMMARY ARTERY BYPASS GRAFT X 1; Surgeon: Richard Jo MD; Location: [facility] MAIN OR; Service: Open Heart CORONARY PERCUTANEOUS INTERVENTION(PCI) N/A 02/16/2022 Surgeon: Sapphire Munguia MD; Location: ED CARDIAC CATH LABIMAGING; Service: Cardiac IR 2 [...] the prostate; Surgeon: Ina Overton MD; Location: [facility] MAIN OR; Service: Urology TONSILLECTOMY UPPER GASTROINTESTINAL ENDOSCOPY UPPER GASTROINTESTINAL ENDOSCOPY N/A 07/17/2018 ESOPHAGOGASTRODUODENOSCOPY with savary dilation and biopsy ; Surgeon: Stevie Acosta MD; Location: [facility] ENDOSCOPY; Service:Endoscopy UPPER GASTROINTESTINAL ENDOSCOPY N/A 09/20/2018 ESOPHAGOGASTRODUODENOSCOPY with biopsy; Surgeon: Stevie Acosta MD; Location: [facility] ENDOSCOPY; Service: Endoscopy SOCIAL HISTORY Social History [...] the ordering clinician. EK EKG 12 LEAD [place] CoTest Date:2022-08-18 Pat Name: JACKIE ABDI Department: DEPIDPatient ID: [id number] Room: Gender: MaleTechnician: Jose Manuel : [id number] By: JESSICA Brandon Order Number: [id number] MD: Sapphire MunguiaMeasurements Intervals [place] Rate:78 P: 44 KS: 169QRS: -8 QRSD: 165 T:75 QT: 405 QTc:464Interpretive Statements SINUS RHYTHM LEFT BUNDLE BRANCH BLOCKElectronically Signed On 08-18-2022 18:39:09 EDT by Sapphire Munguia IP CONSULT TO CARDIOLOGY Routine 08/18/2022 11:43 PM EDT Procedure Note - Altaf Yañez MD - 08/19/2022 8:21 AM EDTThis note is in progress. Heart & Vascular Consult Note PATIENT: Jackie Sprague : 1955 PCP: Carlos A Gross DO Primary Biscuit Packer: Dr. Munguia Reason for consult: CHF History [...] Hereports he had an angiogram done in [place] due to chest pain withreport of no [...] lesion is 80% stenosed. - Severe occluded northway LAD/LCX and RCA - Patent KELLY to [...] Net IO Since Admission: -350 mL [08/19/22 08] Physical Exam Physical Exam Constitutional: Appearance: Normal [...] most recent cardiovascular imaging studies availabe in [facility] EMR werereviewed at time of consultation Labs [...] D-Dimer No results found for: DDIMER Hs-Troponin it-jYpbjnmdb-R 2HR Date Value Ref Range Status 08/18/2022 52 (H) <22 ng/L Final Comment: See the website below for rule out [place] care pathway, conditions otherthan AMI that can cause elevated hs cTnT, and comparison of values fromthe 4th and 5th generation Marisabel tests.[email or web address] ASSESSMENT: Active Hospital Problems Diagnosis *CHF (congestive heart failure), NYHA class I, acute on chronic,combined (HCC) Right groin mass Obstructive sleep apnea syndrome BPH with obstruction/lower urinary tract symptoms Uncontrolled type 2 diabetes mellitus with hyperglycemia ([facility]) S/P CABG x 3 Hyperlipidemia GERD (gastroesophageal reflux disease) Acute on Chronic Heart Failure -ECHO (08/19/2021) LVEF 45-50%. G1DD. Abnormal wall motion. Trace MR andTR -BNP 3373 -CXR left base subsegmental atelectasis. Mild central vascularcongestion -ECHO pending -SUPERVISOR RUBBER COVERING lasix 20 mg BID, coreg 6.25 mg BID, lisinopril 5 mg -Current diuresis with lasix 40 mg BID -Strict I/Os, daily (standing) weights, fluid and sodium restriction,daily BMPs Right Groin Mass / ?Cellulitis of Right Groin -Reportedly occurred after [facility] in [place] - (08/14/2022) no evidence of pseudoaneurysm. Enlarge lymph node -CT (08/18/2022) 6 cm diameter soft tissue mass suspicious for neoplasia -Noted Leukocytosis -Surgery consulted - no plans for intervention Coronary Artery Disease -s/p CABG CABG 2013 KELLY to LAD, SVG to RPDA and SVG to OM -[facility] (02/16/2022) severe occluded northway LAD/LCx and RCA. Patent KELLY toLAD. Patent SVG to OM. Severe proximal SVG to RPDA stenosis s/p PCI withDES -Reports recently C in [place] with no intervention (unable to viewrecords) -SUPERVISOR RUBBER COVERING bASA, plavix 75 mg, coreg 6.25 mg BID, imdur 60 mg, crestor 20 mg -Plavix and bASA on hold for possible intervention - would recommendresuming with REYNOLD ~6 months Diabetes -A1c 7.5 Hyperlipidemia -SUPERVISOR RUBBER COVERING statin -Lipid panel pending Hypertension -Coreg 6.25 [...] We will follow with you. Mirtha Gonzalez, PIPING DRAFTER 08/19/2022 Consulting Physician Altaf Yañez MD Reason for Cardiology consult CHF, Rt grain mass Chief Complaint: No chief complaint on file. HPI 66 y.o. male Seen in consultation History obtained in conjunction with FILM AND VIDEO EDITOR as follows... Jackie Sprague is a 66 [...] Hereports he had an angiogram done in [place] due to chest pain withreport of no [...] lesion is 80% stenosed. - Severe occluded northway LAD/LCX and RCA - Patent KELLY to [...] reflux disease) H/O heart surgery Heart attack ([facility]) Heart disease High cholesterol History of chicken pox History of measles, mumps, or rubella HTN (hypertension) 02/12/2010 pt states never had HTN Hyperlipidemia Kidney stones Low testosterone [place] (myocardial infarction) ([facility]) Nocturia 05/09/2019 Prostate disorder Urinary incontinence [...] mg, 0.4 mg, Sublingual, Q5 MinPRN, Rodriguez, Katiedh, DO ondansetron (ZOFRAN) tablet 4 mg, 4 mg, Oral, Q4H PRN ORondansetron (ZOFRAN) injection 4 mg, 4 mg, Intravenous, Q4H PRN, Rodriguez,Luchojodh, DO pantoprazole (PROTONIX) tablet 40 mg, 40 mg, Oral, BID, Rodriguez,Nimisha, DO, 40 mg at 08/19/22 0814 polyethylene glycol (GLYCOLAX, MIRALAX) packet 17 g, 17 g, Oral, BIDPRN, Rodriguez, Luchojodh, DO rosuvastatin (CRESTOR) tablet 20 mg, 20 mg, Oral, Nightly, Jennifer,Nimisha, DO Social History Socioeconomic History Marital status: [...] the prostate; Surgeon: Ina Overton MD; Location: [facility]; Service: Urology TONSILLECTOMY UPPER GASTROINTESTINAL ENDOSCOPY UPPER GASTROINTESTINAL ENDOSCOPY N/A 07/17/2018 ESOPHAGOGASTRODUODENOSCOPY with savary dilation and biopsy ; Surgeon: Stevie Acosta MD; Location: [facility] ENDOSCOPY; Service:Endoscopy UPPER GASTROINTESTINAL ENDOSCOPY N/A 09/20/2018 ESOPHAGOGASTRODUODENOSCOPY with biopsy; Surgeon: Stevie Acosta MD; Location: [facility] ENDOSCOPY; Service: Endoscopy Allergies Allergen Reactions Insulin [...] EKG [address] [facility] Ar Test Date: 2022-08-18 Pat Name: JACKIE ABDI Department: DEPID Room: 01 Gender: Male Sucker Machine Operator: Jose Manuel : [id number] Requested By: JESSICA Brandon Order Number: [id number] Reading MD: Sapphire Munguia Measurements Intervals [place] Rate: 78 P: 44 KS: 169 QRS: -8 QRSD: 165 T: 75 [...] supportive of ACS picture --Recent LHC in [place] --Holding DAPT for now Rt Groin mass [...] The patient was seen in collaboration with PIPING DRAFTER. I have reviewed all pertinent history, laboratory and radiology studies. I have taken a history and performed a physical examination of thispatient. I agree with the history, physical, assessment and plan as outlined byARNP. Altaf Yañez MD [facility] ADMIT Routine 08/18/2022 10:27 PM EDT [...] 12 LEAD STAT 08/18/2022 5:07 PM EDT FL US EVALUATE PSEUDOANEURYSM RIGHT STAT 08/14/2022 12:28 PM EDT Coronary artery disease involving northway heart without angina pectoris, unspecified vessel or [...] PM EST Acute pain of left knee [place] ARTHROCENTESIS ASPIR&/INJ MAJOR JT/BURSA W/O US Routine [...] 10:16 AM EST Atherosclerotic heart disease of northway coronary artery with other forms of angina pectoris Fluid retention in legs Angina of effort POCT EKG Routine 03/07/2022 9:44 AM EST Coronary artery disease involving northway heart without angina pectoris, unspecified vessel or [...] LR POC Routine 02/16/2022 2:37 PM EST UPSTREAM BIOMANUFACTURING TECHNICIAN HEMODYNAMIC WAVEFORMS Routine 02/16/2022 2:14 PM EST [...] complication, unspecified whether fci insulin use (HCC) WOUND CULTURE (STAIN INCLUDED) [...] 9:52 AM EDT Coronary artery disease involving northway heart without angina pectoris, unspecified vessel or lesion type S/P CABG x 3 POCT EKG Routine 06/23/2020 10:41 AM EDT Ischemic heart disease Coronary artery disease involving northway heart without angina pectoris, unspecified vessel or [...] Routine 01/13/2020 1:00 PM EST Parotid mass NON-GINNER CYTOLOGY REQUEST Routine 01/13/2020 11:52 AM EST [...] AM EDT Procedure Note - Geri Garcia E - 12/03/2019 9:30 AM EDTThis note is [...] risk factor modifications -Atorvastatin 10 mg daily (intermediate frame tender LDL goal 50-70). -Please Keep intermediate frame tender blood pressure goal less than 140/90 (a [...] previous history of heart attacks s/p cabg 2014 He has a history of hyperlipidemia He [...] Allergy Arthritis Chronic cough DM (diabetes mellitus) ([facility]) 02/12/2010 GERD (gastroesophageal reflux disease) H/O heart surgery Heart attack ([facility]) Heart disease High cholesterol History of chicken pox History of measles, mumps, or rubella HTN (hypertension) 02/12/2010 pt states never had HTN Hyperlipidemia Kidney stones Low testosterone [place] (myocardial infarction) ([facility]) Nocturia 05/09/2019 Prostate disorder Urinary incontinence [...] (BMI) of 35.0 to 35.9 in adult ([facility]) 11/19/2018 Eosinophilic esophagitis Elevated lipoprotein(a) 08/01/2018 Followed by Endocrinology. Esophageal dysphagia Chronic pain syndrome 11/06/2017 Spondylosis of lumbar region without myelopathy or lygasesoodhgy17/28/2018 Sacroiliitis ([facility]) 11/06/2017 Degenerative disc disease, lumbar 10/15/2017 Dysuria Benign prostatic hyperplasia with urinary frequency Acute prostatitis Yeast dermatitis of penis Acute pyelonephritis 09/20/2017 Elevated troponin 09/20/2017 SOB (shortness of breath) 09/20/2017 Uncontrolled type 2 diabetes mellitus with hyperglycemia ([facility])09/23/2014 Dyslipidemia associated with type 2 diabetes mellitus ([facility]) 08/20/2014 Followed by Endocrinology. Vitamin D [...] the prostate; Surgeon: Ina Overton MD; Location: [facility] MA[facility] OR; Service: Urology TONSILLECTOMY UPPER GASTROINTESTINAL ENDOSCOPY UPPER GASTROINTESTINAL ENDOSCOPY N/A 07/17/2018 ESOPHAGOGASTRODUODENOSCOPY with savary dilation and biopsy ; Surgeon: Stevie Acosta MD; Location: [facility] ENDOSCOPY; Service:Endoscopy UPPER GASTROINTESTINAL ENDOSCOPY N/A 09/20/2018 ESOPHAGOGASTRODUODENOSCOPY with biopsy; Surgeon: Stevie Acosta MD; Location: [facility] ENDOSCOPY; Service: Endoscopy Current Facility-Administered Medications Medication [...] mouth daily. 90Tab 2 Blood Sugar Diagnostic [facility] Strip Check blood sugars three times daily.accu-chek venkata plus Dx:E11.9 100 Each 11 Blood-Glucose Meter (FREESTYLE LITE METER) [facility] Kit USE DIRECTED 1Kit 0 Blood-Glucose Meter [facility] Kit Check glucose twice a day 1 [...] Tab 2 lancets (FREESTYLE LANCETS) 28 gauge [facility] Misc 1 Each by Mis.(Non-Drug;Combo Route) route 3 times daily. 100 Each [...] file Gets together: Not on file Attends adventism service: Not on file Active member of [...] of 12/01/19 EK EKG 12 LEAD Impression [place] [facility] Test Date: 2019-12-01 Pat Name: JACKIE ABDI Department: DEPID Room: Gender: Male Sucker Machine Operator: : 1955 Requested By: AUGUSTINA TITUS Order Number: [id number] Reading MD: Shelley Lockwood MD Measurements Intervals [place] Rate: 70 P: 54 KS: 184 QRS: -8 QRSD: 147 T: 116 [...] Ischemic heart disease Coronary artery disease involving northway heart without angina pectoris, unspecified vessel or lesion type S/P CABG x 3 Dizziness POCT EKG Routine 02/20/2019 10:25 AM EST Ischemic heart disease Coronary artery disease involving northway heart without angina pectoris, unspecified vessel or [...] 2 diabetes mellitus without complication, unspecified whether intermediate frame tender insulin use (HCC) POCT GLYCATED HEMOGLOBIN, TOTAL [...] 2 diabetes mellitus without complication, unspecified whether intermediate frame tender insulin use (HCC) PROSTATE SPECIFIC ANTIGEN (TUMOR [...] complication, without long-term current use of insulin ([facility]) INSULIN FASTING Routine 10/04/2017 10:25 AM EDT Type 2 diabetes mellitus without complication, without long-term current use of insulin ([facility]) IR ULTRASOUND GUIDED VASCULAR ACCESS ALEXANDRA 09/24/2017 [...] Jackie Abdi PCP: Omi Daly DO Primary Biscuit Packer: Jeffy Fuentes M.D. 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 Concerned about hospitalization with no insurance PMH: CAD, s/p CABG 2012, HTN, HLD, DM2 EKG: Sinus tach with short [place], artifact from rigors Trop: <0.01, 0.09, 0.08 [...] Medical History: Diagnosis Date DM (diabetes mellitus) ([facility]) 02/12/2010 GERD (gastroesophageal reflux disease) HTN (hypertension) 02/12/2010 pt states never had HTN Hyperlipidemia [place] (myocardial infarction) ([facility]) Medication aspirin 81 mg Oral Daily [...] X 1; Surgeon: Richard Jo MD; Location: [facility] MAIN OR; Service: Open Heart Allergy Allergies [...] most recent cardiovascular imaging studies availabe in [facility] EMR werereviewed at time of consultation Labs [...] CABG 2013 -on ASA, imdur, BB, MISAEL SUPERVISOR RUBBER COVERING Plan: Trop elevation not consistent with ACS No ischemic changes on EKG Continue to monitor Continue cardiac meds Will defer any ischemic workup to MD Please also refer to orders on chart Further input from Dr. Hernandez Thank you for the consult. We will follow with you. Trang Whitekisson, PIPING DRAFTER 09/20/2017 Addendum: I personally interviewed and examined [...] EST Routine general medical examination at a [facility] LIPID SCREEN Routine 04/18/2014 8:54 [...] EDTThis note is in progress. See dictated [id number] SCANNED RHYTHM STRIPS 08/27/2013 9:46 AM EDT [...] 08/25/2013 8:08 AM EDT Coronary atherosclerosis of northway coronary artery Special Needs Pt will be transferred from [place] on 08/23 [facility] GLUCOSE METER POC Routine 08/25/2013 6:45 [...] 08/22/2013 4:55 PM EDT CARDIAC PROCEDURE - JANETH/FTT-UPSTREAM BIOMANUFACTURING TECHNICIAN ONLY 08/22/2013 11:26 AM EDT Chest pain, unspecified Special Needs GUILLE CPT;04695 UPSTREAM BIOMANUFACTURING TECHNICIAN PROCEDURE LOG Routine 4 12:00 AM EDT [...] EDT Routine general medical examination at a [facility] facility LIPID SCREEN Routine 09/17/2012 9:48 [...] 10/19/2009 12:[address] ABD/PELVIS SHEET IRONWORKER Routine 02/07/2009 12:59 AM EST GC XX ABDOMEN Routine 02/07/2009 12:53 AM EST XX SOFT TISSUE OF THE NECK Routine 08/25/2007 8:10 PM EDT Results * BILIRUBIN DIRECT (07/18/2024 11:32 AM EDT) Only the most recent of2 resultswithin the time period is included. Bili Direct <0.2 0.0 - 0.3 mg/dL 07/18/2024 7:37 PM EDT [facility] Blood VENOUS BLOOD / Unknown Venipuncture / Unknown 07/18/2024 11:32 AM EDT 07/18/2024 11:32 AM EDT us Abel Hernandez MD CHEMISTRY ORDERABLES Final Resul t [facility] [address] [facility] , [place] [address] * PROTEIN/CREATININE RATIO URINE (07/18/2024 11:32 AM EDT) Only the most recent of3 resultswithin the time period is included. Urine Protein <6.0 mg/dL 07/18/2024 3:57 PM EDT [facility] Urine Creatinine 57.9 mg/dL 07/18/2024 3:57 PM EDT [facility], [facility] Ur Protein/Creat <0.10 mg/mg 07/18/2024 3:57 PM EDT [facility] Urine STRUCTURE OF URINARY TRACT PROPER / Unknown 07/18/2024 11:32 AM EDT 07/18/2024 11:32 AM EDT us Abel Hernandez MD URINE ORDERABLES Final Result Performing Organization Address [facility] Co de Phone Number [facility], [address] , [address] [place] [phone] [facility] [address] [place], [place] [phone] * VITAMIN D 25 HYDROXY (07/18/2024 11:32 AM EDT) Only the most recent of18 resultswithin the time period is included. Vit D 25 OH 64.0 30.0 - 150.0 ng/mL 07/18/2024 8:01 PM EDT [facility] [employer], [facility] Comment: Preferred: >= 30 ng/mL Insufficient: 21-29 [...] ORDERABLES Final Resul t Performing Organization Address [facility] Co de Phone Number PREFERRED [facility] [address] , [address] [place] [phone] * MICROALBUMIN/CREATININE RATIO URINE (07/18/2024 11:32 AM EDT) Only the most recent of10 resultswithin the time period is included. Urine Albumin <12.0 mg/L 07/18/2024 3:57 PM EDT [facility], [facility] Urine Creatinine 57.9 mg/dL 07/19/19 3:57 PM EDT [facility], [facility] Ur Albumin/Creat Ratio 07/18/2024 3:57 PM EDT [facility], [facility] Comment: Because the albumin level is below the level of detection in this urine specimen, the laboratory is unable to calculate a reliable albumin/creatinine ratio. Microalbuminuria is unlikely if the urine albumin concentration is less than 20- 30 mg/L in a random specimen. Urine STRUCTURE OF URINARY TRACT PROPER / Unknown 07/18/2024 11:32 AM EDT 07/18/2024 11:32 AM EDT us Abel Hernnadez MD URINE ORDERABLES Final Result [facility], [facility] [address] [facility] , [place] [address] * (ABNORMAL) URINALYSIS (07/18/2024 11:32 AM EDT) Only the most recent of6 resultswithin the time period is included. UA Color Light Yellow 07/18/2024 1:49 PM EDT [facility] UA Appear Clear Clear 07/18/2024 1:49 PM [...] URINE ORDERABLES Final Result Performing Organization Address City/[facility] Co de Phone Number [facility] [address] [facility] , [place] [address] * ALANINE AMINOTRANSFERASE (07/18/2024 11:32 AM EDT) Only the most recent of2 resultswithin the time period is included. ALT 19 <=41 U/L 07/18/2024 7:3 7 PM EDT [facility] Blood VENOUS BLOOD / Unknown Venipuncture / Unknown 07/18/2024 11:32 AM EDT 07/18/2024 11:32 AM EDT us Abel Hernandez MD CHEMISTRY ORDERABLES Final Resul t Performing Organization Address [facility] [[email or web address]] de Phone Number [facility] [address] [facility] , [place] [address] * ASPARTATE AMINOTRANSFERASE (07/18/2024 11:32 AM EDT) Only the most recent of2 resultswithin the time period is included. AST 14 <=40 U/L 07/18/2024 7:[address] [facility] Blood VENOUS BLOOD / Unknown Venipuncture / Unknown 07/18/2024 11:32 AM EDT 07/18/2024 11:32 AM EDT us Abel Hernandez MD CHEMISTRY ORDERABLES Final Resul t Performing Organization Address City/[facility] Co de Phone Number [facility] [address] [facility] , [place] [address] * (ABNORMAL) PROTEIN TOTAL-BLOOD (07/18/2024 11:32 AM EDT) Only the most recent of2 resultswithin the time period is included. Total Protein 6.2(L) 6.4 - 8.3 gm/dL 07/18/2024 7:37 PM EDT [facility] Blood VENOUS BLOOD / Unknown Venipuncture / Unknown 07/18/2024 11:32 AM EDT 07/18/2024 11:32 AM EDT us Abel Hernandez MD CHEMISTRY ORDERABLES Final Resul t Performing Organization Address [facility] [[email or web address]] de Phone Number [facility] , [place] [address] * ALKALINE PHOSPHATASE (07/18/2024 11:32 AM EDT) Only the most recent of2 resultswithin the time period is included. Pathologist [facility] Alk Phos 83 40 - 129 U/L 07/18/2024 7:37 PM EDT [facility] Blood VENOUS BLOOD / Unknown Venipuncture / Unknown 07/18/2024 11:32 AM EDT 07/18/2024 11:32 AM EDT us Abel Hernandez MD CHEMISTRY ORDERABLES Final Resul t Performing Organization Address [facility] Phone Number [facility] , [place] [address] * PARATHYROID HORMONE INTACT (07/18/2024 11:32 AM EDT) Only the most recent of4 resultswithin the time period is included. PTH Intact 62.50 15.00 - 65.00 pg/mL 07/18/2024 3:45 PM EDT [facility] Blood VENOUS BLOOD / Unknown Venipuncture / Unknown 07/18/2024 11:32 AM EDT 07/18/2024 11:32 AM EDT Narrative [facility] - 07/18/2024 3:45 PM EDT Intact PTH [...] ORDERABLES Final Resul t Performing Organization Address City/[facility] Co de Phone Number [facility] [address] , [place] [address] * BILIRUBIN TOTAL (07/18/2024 11:32 AM EDT) Only the most recent of2 resultswithin the time period is included. Pathologist [facility] Bili Total 0.2 0.2 - 1.4 mg/dL 07/18/2024 7:37 PM EDT [employer] Blood VENOUS BLOOD / Unknown Venipuncture / Unknown 07/18/2024 11:32 AM EDT 07/18/2024 11:32 AM EDT Abel Hernandez MD CHEMISTRY ORDERABLES Final Resul t Performing Organization Address [facility] Co de Phone Number [email or web address] [address] [place] [address] , [place] [address] * (ABNORMAL) RENAL FUNCTION PANEL (07/18/2024 11:32 AM EDT) Only the most recent of2 resultswithin the time period is included. Sodium 137 136 - 145 mmol/L 07/18/2024 7:37 PM EDT [facility] Potassium 4.1 3.5 - 5.0 mmol/L 07/18/2024 7:37 PM EDT [facility] Chloride 101 98 - 107 mmol/L 07/18/2024 7:37 PM EDT [facility] Total CO2 23 22 - 29 mmol/L 07/18/2024 7:37 PM EDT [facility] Anion Gap 13 7 - 16 mmol/L 07/18/2024 7:37 PM EDT [facility] Calcium 9.5 8.8 - 10.4 mg/dL 07/18/2024 7:37 PM EDT [facility] Glucose Lvl 289(H) 70 - 99 mg/dL 07/18/2024 7:37 PM EDT [facility] BUN 20 8 - 23 mg/dL 07/18/2024 7:37 PM EDT [facility] Creatinine 1.36(H) 0.67 - 1.30 mg/dL 07/18/2024 7:37 PM EDT [facility] Albumin 4.0 3.2 - 4.6 gm/dL 07/18/2024 7:37 PM EDT [facility] Phosphorus 3.5 2.5 - 4.5 mg/dL 07/18/2024 7:37 PM EDT [facility] eGFR (CKD-EPIcr 2020) 56(L) >=60 mL/min/1.7 3 m2 07/18/2024 7:37 PM EDT [facility] Comment:Estimated GFR was ca lculated using the CKD-EPIcr (2020) equation refit without race. The equation is recommended by the National Kid[employer] - [place] [employer] Neph[employer] Task Force. Blood VENOUS BLOOD / Unknown Venipuncture / Unknown 07/18/2024 11:32 AM EDT 07/18/2024 11:32 AM EDT us Abel Hernandez MD CHEMISTRY ORDERABLES Final Resul t [facility] [address] [facility] , [place] [address] * XR CHEST PA AND [...] X-RAY, 02/13/2024 2:26 PM CLINICAL HISTORY: R60.0-Localized [id number]-WKW-98-CM I50.43-Acute on chronic combined systolic (congestive) and [...] X-RAY, 02/13/2024 2:26 PM CLINICAL HISTORY: R60.0-Localized ocgqs-ILL-87-CM I50.43-Acute on chronic combined systolic (congestive) and [...] 02/11/2024 7:29 PM EST [facility] [facility] Potassium 4.5 3.5 - 5.0 mmol/L 02/11/2024 7:29 PM EST [facility] Chloride 100 98 - 107 mmol/L 02/11/2024 7:29 PM EST [facility] Total CO2 24 22 - 29 mmol/L 02/11/2024 7:29 PM EST [facility] Anion Gap 18(H) 7 - 16 mmol/L 02/11/2024 7:29 PM EST [facility] Calcium 9.7 8.8 - 10.4 mg/dL 02/11/2024 7:29 PM EST [facility] Glucose Lvl 341(H) 70 - 99 mg/dL 02/11/2024 7:29 PM EST [facility] BUN 23 8 - 23 mg/dL 02/11/2024 7:29 PM EST [facility] Creatinine 1.59(H) 0.67 - 1.30 mg/dL 02/11/2024 7:29 PM EST [facility] eGFR (CKD-EPIcr 2020) 46(L) >=60 mL/min/1.7 3 m2 02/11/2024 7:29 PM EST [facility] Comment:Estimated GFR was ca lculated using the CKD-EPIcr (2020) equation refit without race. The equation is recommended by the National Kidney Foundation - [place] Society of Nephrology Task Force. Blood VENOUS BLOOD / Unknown Venipuncture / Unknown 02/11/2024 8:32 AM EST 02/11/2024 8:32 AM EST us Viral Gross V, DO CHEMISTRY ORDERABLES Final Res ult [facility], [address] , [place] [address] [facility] [address] [place] [address] * (ABNORMAL) GLUCOSE METER POC (01/03/2024 7:51 AM EDT) Only the most recent of140 resultswithin the time period is included. [facility] Glucose Meter POC 179(H) 70 - 100 mg/dL 01/03/2024 7:53 AM EDT [facility] Sample Type Capillary 01/03/2024 7:53 AM EDT [facility] Patient Status Non-Critical Patient 01/03/2024 7:53 AM EDT [facility] Blood BLOOD SPECIMEN / Unknown 01/03/2024 7:51 AM EDT 01/03/2024 7:53 AM EDT Momo Castellanos MD POINT OF CARE TEST ORDERABLES Fi nal Result Performing Organization Address City/[facility]/ZIP Co de Phone Number [facility] [address] [place] [address] * ECG AND WAVEFORMS - TELEMETRY (01/03/2024 7:18 AM EDT) Only the most recent of37 resultswithin the time period is included. [facility] ECG INTERPRET First Degree Sinus Rhythm [facility] 01/03/2024 7:18 AM EDT Narrative [facility] - 01/03/2024 7:21 AM EDT SR;IVCD-ROUTINE/PB KS 0.23 QRS 0.15 RR 0.79 QT 0.42 QTc 0.47 See Clinical Report link for waveform capture us Unknown Provider POINT OF CARE CARDIOLOGY Final Result Performing Organization Address City/[facility]/ZIP Co de Phone Number [facility] [address] [place] [address] * CBC (01/03/2024 6:05 AM EDT) Only the most recent of15 resultswithin the time period is included. [facility] WBC 4.9 3.7 - 10.3 x10(3)/mcL 01/03/2024 6:36 AM EDT [facility] RBC 4.99 4.60 - 6.10 x10(6)/mcL 01/03/2024 6:36 AM EDT [facility] Hgb 14.0 13.7 - 17.5 g/dL 01/03/2024 6:36 AM EDT [facility] Hct 43.0 40.0 - 51.0 % 01/03/2024 6:36 AM EDT [facility] MCV 86.2 80.0 - 100.0 fL 01/03/2024 6:36 AM EDT [facility] MCH 28.1 26.0 - 34.0 pg 01/03/2024 6:36 AM EDT [facility] MCHC 32.6 30.7 - 35.5 g/dL 01/03/2024 6:36 AM EDT [facility] RDW 13.2 <=14.9 % 01/03/2024 6:36 AM EDT [facility] Platelet 210 155 - 369 x10(3)/mcL 01/03/2024 6:36 AM EDT [facility] MPV 11.5 8.8 - 12.5 fL 01/03/2024 6:36 AM EDT [facility] Blood VENOUS BLOOD / Unknown Venipuncture / Unknown 01/03/2024 6:05 AM EDT 01/03/2024 6:29 AM EDT us Familia Broderick MD (Ronny) HEMATOLOGY DAGOBERTO OCHOA Final Result [facility] [address] [place] [address] * SCANNED EKG (01/02/2024 8:36 AM EDT) Only the most recent of4 resultswithin the time period is included. Anatomical Region Laterality Modality Other 01/02/2024 8:36 AM EDT us Unknown Provider IMG ECG ORDERABLES Final Result * (ABNORMAL) TROPONIN-T HIGH SENSITIVITY 2HR (12/31/2023 2:49 PM EDT) Only the most recent of4 resultswithin the time period is included. dc-qKrxnxpyk-P 2HR 49(H) <22 ng/L 12/31/2023 3:10 PM EDT [facility] Comment:See the website kelly vu for rule out [place] care pathway, conditions other than AMI that can cause elevated hs cTnT, and comparison of values from the 4th and 5th generation Marisabel tests. https://[email or web address]/topic/clinical-answers/[email or web address]/cpm-203 61876 hs-cTnT 2Hr Delta from Baseline 2 <4 ng/L 12/31/2023 3:10 PM EDT [facility] Blood VENOUS BLOOD / Unknown Venipuncture / Unknown 12/31/2023 2:49 PM EDT 12/31/2023 2:51 PM EDT Narrative [facility] - 12/31/2023 3:10 PM EDT Ingestion of joaquin doses of biotin (>5 mg/day) taken within 8 hours of drawing blood sample can interfere with this immunoassay test. Sixto Jose MD CHEMISTRY ORDERABLES Amie mcgee Result [facility] [address] [id number] * XR CHEST AP PORTABLE (12/31/2023 1:44 [...] of4 resultswithin the time period is included. yq-zBewwduqz-J 47(H) <22 ng/L 12/31/2023 1:25 PM EDT [facility] Comment:See the website kelly [employer] for rule out [place] care pathway, conditions other than AMI that can cause elevated hs cTnT, and comparison of values from the 4th and 5th generation Marisabel tests. https://[email or web address]/topic/clinical-answers/[email or web address]/cpm-[email or web address] 44611 Blood VENOUS BLOOD / Unknown Venipuncture / Unknown 12/31/2023 12:55 PM EDT 12/31/2023 12:59 PM EDT Narrative [facility] - 12/31/2023 1:25 PM EDT Ingestion of joaquin doses of biotin (>5 mg/day) taken within 8 hours of drawing blood sample can interfere with this immunoassay test. us Sixto Jose MD CHEMISTRY ORDERABLES Amie l Result [facility] [address] [place] [address] * (ABNORMAL) NT PROBNP (12/31/2023 12:55 PM EDT) Only the most recent of2 resultswithin the time period is included. NT Pro-BNP 2,162(H) <=229 pg/mL 12/31/2023 1:35 PM EDT [facility] Blood VENOUS BLOOD / Unknown Venipuncture / Unknown 12/31/2023 12:55 PM EDT 12/31/2023 12:59 PM EDT Narrative [facility] - 12/31/2023 1:35 PM EDT An NT pro-BNP level less than 300 pg/mL in any patient, regardless of age, effectively rules out acute CHF with a 99% negative predictive value. Ingestion of joaquin doses of biotin (>5 mg/day) taken within 8 hours of drawing blood sample can interfere with this immunoassay test. Sixto Jose MD CHEMISTRY ORDERABLES Amie l Result [facility] [address] [place] [address] * EK EKG 12 LEAD (12/31/2023 12:24 PM EDT) Only the most recent of11 resultswithin the time period is included. Anatomical Region Laterality Modality Electrocardiogra phy 12/31/2023 12:3 5 PM EDT Impressions 12/31/2023 4:09 PM EDT [facility] Test Date: 2023-12-31 Pat Name: JACKIE ABDI Department: DEPID Room: Gender: Male Sucker Machine Operator: Hai : 1955 Requested By: [facility] Order Number: [id number] Radha MD: Jimbo Mcdaniel Measurements Intervals [place] Rate: 60 P: 32 KS: 201 QRS: -22 QRSD: 152 T: 136 QT: 460 QTc: 463 Interpretive Statements SINUS RHYTHM LEFT BUNDLE BRANCH BLOCK Electronically Signed On 12-31-2023 16:09:13 EDT by Jimbo Mcdaniel Narrative Procedure Note Jimbo Mcdaniel MD - 12/31/[address] [facility] Test Date: 2023-12-31 Pat Name: JACKIE ABDI Department: DEPID Room: Gender: Male Sucker Machine Operator: Hai : 1955 Requested By: [facility] Order Number: [id number] Reading MD: Jimbo Mcdaniel Measurements Intervals [place] Rate: 60 P: 32 KS: 201 QRS: -22 QRSD: 152 T: 136 [...] - 5.6 % 12/12/2023 7:30 PM EDT [facility] Est. Avg Glucose 229 mg/dL 12/12/2023 7:30 PM EDT [facility] Blood VENOUS BLOOD / Unknown Venipuncture / Unknown 12/12/2023 2:26 PM EDT 12/12/2023 2:26 PM EDT Narrative 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 Comment: < 150 Normal 150 - 199 Borderline High 200 - 499 High >= 500 Very High HDL 28(L) >=40 mg/dL 11/01/2023 7:38 AM EDT [facility] [employer] Comment: > 60 Optimal 40 - 60 Acceptable < 40 Low LDL Calculated 56 <100 mg/dL 11/01/2023 7:38 AM EDT [facility] [employer] Comment: < 100 Optimal 100 - 129 Near or above optimal 130 - 159 Borderline High 160 - 189 High >= 190 Very High Non-HDL-C Calculated 91 <=129 mg/dL 11/01/2023 7:38 AM EDT [facility] [employer] Comment: <130 Desirable 130-159 Above Desirable 160-189 Borderline High 190-219 High >= 220 Very High Fasting Specimen? Yes None 024 7:38 AM EDT [facility] Blood VENOUS BLOOD / Unknown Venipuncture / Unknown 11/01/2023 6:59 AM EDT 11/01/2023 7:03 AM EDT Sapphire Munguia MD CHEMISTRY ORDERABLES Final Result [facility] [employer] [address] [place] [address], [place] [address] [facility] [address] [place] [address] * EC ECHOCARDIOGRAM LIMITED (10/31/2023 4:51 PM [...] no pericardial effusion. us Sapphire Munguia MD IMG ECHO ORDERABLES Final [...] fraction of 25-30%. us Sapphire Munguia MD [facility] ECHO ORDERABLES Final Result * CORONARY ANGIOGRAM (COR/LHC/LV GRAM, CARDIAC CATHETERIZATION), ULTRASOUND GUIDED VASCULAR ACCESS (10/31/2023 3:00 PM EDT) Only the most recent of3 resultswithin the time period is included. Narrative [facility] - 11/06/2023 11:00 AM EDT Procedure Details Procedure: Attempted PCI to LM.LCx BILL HIKER Cardiac cath The patient was brought to the cardiac cath laboratory suite and was prepped and draped in the usual sterile fashion. Conscious sedation was achieved with IV versed and fentanyl. 10 ml of 2% lidocaine was used to provide local anesthesia over the prepared site. Using US guidance a 7 Fr sheath inserted in rt [employer] A 6 FR sheath inserted in rt [...] long segment occlusion Using antegrade wire escalation Clinical Specialist Vascular 150 then changed to Mongo and gaya [...] A/p Unsuccessful PCI to long segment LM/LCX BILL HIKER Continue to optimize med rx Can reattempt PCI to BILL HIKER depending on clinical progress Sapphire Munguia MD CARDIAC CATH ORDERABLES Fi nal Result Performing Organization Address City/[facility] Co de Phone Number [email or web address] CARDIOLOGY * (ABNORMAL) ACTIVATED CLOTTING TIME LR POC (10/31/2023 2:45 PM EDT) Only the most recent of7 resultswithin the time period is included. Pathologist [facility] ACT-LR 214(H) 89 - 169 second(s) 10/31/2023 2:51 PM EDT [facility] Blood BLOOD SPECIMEN / Unknown 10/31/2023 2:45 PM EDT 10/31/2023 2:51 PM EDT Sapphire Munguia MD POINT OF CARE TEST ORDERAB LES Final Result Performing Organization Address [facility] de Phone Number [facility] [address] [phone] * UPSTREAM BIOMANUFACTURING TECHNICIAN HEMODYNAMIC WAVEFORMS (10/31/2023 1:11 PM EDT) Only the most recent of3 resultswithin the time period is included. 10/31/2023 1:11 PM EDT Sapphire Munguia MD CARDIAC CATH ORDERABLES Fi nal Result Performing Organization Address [facility] de Phone Number [facility] [address] [place] [address] * PT / INR (10/30/2023 8:50 AM EDT) Only the most recent of6 resultswithin the time period is included. Pathologist [facility] PT 10.9 10.5 - 13.6 second(s) 10/30/2023 [...] 10/30/2023 8:50 AM EDT us Kelin Tran PIPING DRAFTER HEMATOLOGY ORDERABLES Final Res ult [facility] [address] [facility] , [place] [address] * (ABNORMAL) CBC WITH DIFF [...] [facility] Platelet 198 155 - 369 x10(3)/mcL 10/30/2023 2:13 PM EDT [facility] MPV 12.6(H) 8.8 - 12.5 fL 10/30/2023 2:13 PM EDT [facility] Neut Percent 64.1 % 10/30/2023 2:13 PM EDT [facility] Comment:Neutrophils equals s egs plus bands Imm Gran% 0.6 % 10/30/2023 2:13 PM EDT [facility] Comment:Automated count of m etamyelocytes, myelocytes and promyelocytes. Lymph Percent 21.8 % 10/30/2023 2:13 PM EDT [facility] [place] Percent 8.1 % 10/30/2023 2:13 PM EDT [facility] Eos Percent 5.0 % 10/30/2023 2:13 PM EDT [facility] Baso Percent 0.4 % 10/30/2023 2:13 PM EDT [facility], [facility] Neut # 3.3 1.6 - 6.1 x10(3)/[facility] 10/30/2023 2:13 PM EDT [facility] Comment:Neutrophils equals s egs plus bands IMMGRAN# 0.0 0.0 - 0.1 x10(3)/[facility] 10/30/2023 2:13 PM EDT [facility] Comment:Automated count of m etamyelocytes, myelocytes and promyelocytes. An absolute IG <0.1 is reported as 0.0. Lymph # 1.1(L) 1.2 - 3.9 x10(3)/[facility] 10/30/2023 2:13 PM EDT [facility] [place] # 0.4 0.3 - 0.9 x10(3)/[facility] 10/30/2023 2:13 PM EDT [facility] Eos# 0.3 0.0 - 0.5 x10(3)/[facility] 10/30/2023 2:13 PM EDT [facility] Baso # 0.0 0.0 - 0.1 x10(3)/[facility] 10/30/2023 2:13 PM EDT [facility], [facility] Blood VENOUS BLOOD / Unknown Venipuncture / Unknown 10/30/2023 8:50 AM EDT 10/30/2023 8:50 AM EDT us Eklin Marc PIPING DRAFTER HEMATOLOGY ORDERABLES Final Res ult [facility] [address] [facility], [place] [address] * XR LUMBAR SPINE AP LATERAL FLEXION [...] CLINICAL HISTORY: Thyroid nodule(s). 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 COMPARISON: 10/04/2022 PROCEDURE COMMENTS: Sonographic evaluation of [...] CLINICAL HISTORY: Thyroid nodule(s). 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 COMPARISON: 10/04/2022 PROCEDURE COMMENTS: Sonographic evaluation of [...] 4.5 mg/dL 08/30/2023 8:01 PM EDT [facility] Blood VENOUS BLOOD / Unknown Venipuncture / Unknown 08/30/2023 1:59 PM EDT 08/30/2023 2:00 PM EDT us Abel Hernandez MD CHEMISTRY ORDERABLES Final Resul t [facility] [address] [facility] , [place] [address] * (ABNORMAL) COMPREHENSIVE METABOLIC PANEL (08/30/2023 1:59 PM EDT) Only the most recent of23 resultswithin the time period is included. Sodium 140 136 - 145 mmol/L 08/30/2023 8:01 PM EDT [facility] Potassium 4.0 3.5 - 5.0 mmol/L 08/30/2023 8:01 PM EDT [facility] [employer] Chloride 106 98 - 107 mmol/L 08/30/2023 8:01 PM EDT [facility] Total CO2 21(L) 22 - 29 mmol/L 08/30/2023 8:01 PM EDT [facility] Anion Gap 13 7 - 16 mmol/L 08/30/2023 8:01 PM EDT [facility] Calcium 9.8 8.8 - 10.4 mg/dL 08/30/2023 8:01 PM EDT [facility] Glucose Lvl 218(H) 70 - 99 mg/dL 08/30/2023 8:01 PM EDT [facility] BUN 19 8 - 23 mg/dL 08/30/2023 8:01 PM EDT [facility] Creatinine 1.26 0.67 - 1.30 mg/dL 08/30/2023 8:01 PM EDT [facility] Albumin 4.1 3.2 - 4.6 gm/dL 08/30/2023 8:01 PM EDT [facility] Total Protein 6.3(L) 6.4 - 8.3 gm/dL 08/30/2023 8:01 PM EDT [facility] Bili Total 0.2 0.2 - 1.4 mg/dL 08/30/2023 8:01 PM EDT [facility] ALT 17 <=41 U/L 08/30/2023 8:01 PM EDT [facility] AST 19 <=40 U/L 08/30/2023 8:01 PM EDT [facility] Alk Phos 100 40 - 129 U/L 08/30/2023 8:01 PM EDT [facility] eGFR (CKD-EPIcr 2020) 62 >=60 mL/min/1.7 3 m2 08/30/2023 8:01 PM EDT [facility] Comment:Estimated GFR was ca lculated using the CKD-EPIcr (2020) equation refit without race. The equation is recommended by the National Kidney Foundation - [place] [employer] of Nephrology Task Force. Blood VENOUS BLOOD / Unknown Venipuncture / Unknown 08/30/2023 1:59 PM EDT 08/30/2023 2:00 PM EDT us Oswaldo Harry MD CHEMISTRY ORDERABLES Fin al Result [facility] [address] [facility] , [place] [address] [facility] [address] [place] [address] * DIABETIC EYE EXAM (08/15/2023) Right Diabetic Retinopathy Present Present/Not Present [facility] Comment:chronic mild non pro liferative retinopathy Left Diabetic Retinopathy Present Present/Not Present [facility] Comment:chronic mild non pro liferative retinopathy Merle Frazierirr OD OUTPATIENT REFERRAL ORDERABLE S Final Result Performing Organization Address [facility] Co de Phone Number SEP OFFICE * (ABNORMAL) HM DIABETES EYE EXAM (08/15/2023) Left Diabetic Retinopathy Present Present/Not Present [facility] Comment:[place] eye Right Diabetic Retinopathy Present Present/Not Present [facility] OFFICE 08/15/2023 Historical Provider HEALTH MAINTENANCE Final Res ult Performing Organization Address [facility] Co de Phone Number SEP OFFICE [...] PM EDT Impressions 06/27/2023 3:11 PM EDT [facility] Test Date: 2023-06-27 Pat Name: JACKIE ABDI [facility]: Gender: Male Sucker Machine Operator: Aisha Barth RN : 1955 Requested By: SAPPHIRE MNUGUIA Order Number: [id number] Reading MD: Jimbo Mcdaniel Interpretive Statements Stress [...] Note Jimbo Mcdaniel MD - 06/27/2023 IMPRESSION [facility] Test Date: 2023-06-27 Pat [facility] Department: DEPID Room: Gender: Male Sucker Machine Operator: Aisha Barth RN : 1955 Requested By: SAPPHIRE MUNGUIA Order Number: [id number] Reading MD: Jimbo Mcdaniel Interpretive Statements Stress [...] <=500 ng/mL FEU 06/07/2023 10:05 PM EDT [facility] Comment:This is an automated latex [...] PM EDT 06/07/2023 9:59 PM EDT Narrative [facility] - 06/07/2023 10:05 PM EDT For patients between the ages of 50 - 75, an age-adjusted D-Dimer cut-off in combination with non-high clinical probability may be considered for the exclusion of venous thromboembolism (calculation = age x 10). MAKAYLA Santoro, et al. [employer]. 2017;166(5):361-363 ADILIA Denny, et al. [employer]. 2015;(163):701-711. John Mak, et al. [place]. 2014;(11):1704-1783. us Piedad Jimenez MD HEMATOLOGY ORDERABLES Final Result Performing Organization Address City/State/[facility] Co de Phone Number [facility] [address] [place] [address] * US RENAL AND BLADDER [...] evaluation of the kidneys and bladder with contracts representative images and millinery department manager notes sent to PACS for radiologist review. [...] sonographic evaluation of the kidneys andbladder with contracts representative images and millinery department manager notes sent to PACS forradiologist review. FINDINGS: [...] the ordering clinician. us Abel Hernandez MD [facility] US ORDERABLES Final Result * POCT URINALYSIS DIPSTICK (06/04/2023 4:06 PM EDT) Only the most recent of15 resultswithin the time period is included. Color, UA yellow CLEAR,YELL OW,ORANGE, RUST [facility] Clarity, UA clear CLEAR,CLOU DY [facility] Glucose, UA neg G/DL% [facility] Bilirubin, UA neg POS/NEG [facility] Ketones, UA neg POS/NEG [facility] moulder operator Grav, UA 1.005 1.001 - 1.035 G/DL [facility] Blood, UA neg POS/NEG [facility] pH, UA 5.0 5.0 - 8 [facility] Protein, UA neg POS/NEG [facility] Urobilinogen, UA neg 0.2 - 1.0 MG/DL [facility] Nitrite, UA neg POS/NEG [facility] Leukocytes, UA neg POS/NEG [facility] UA Appear POC [facility] Lot Number [facility] Expiration Date [facility] SeriAl # [facility] Urine 06/04/2023 4:06 PM EDT us Abel Hernandez MD POINT OF CARE TEST ORDERABLES Fi nal Result [facility] * LIPASE LEVEL (05/13/2023 10:49 AM EST) Lipase Lvl 51 13 - 60 U/L 05/13/2023 1:17 PM EST [facility] Blood VENOUS BLOOD / Unknown Venipuncture / Unknown 05/13/2023 10:49 AM EST 05/13/2023 10:49 AM EST us Viral Gross V, DO CHEMISTRY ORDERABLES Final Res ult Performing Organization Address [facility] Co de Phone Number [facility] [address] [facility] , [place] [address] * HEPATIC FUNCTION PANEL (05/13/2023 10:49 AM [...] ORDERABLES Final Res ult Performing Organization Address [place]/[facility] [[email or web address] de Phone Number [email or web address] [address] [place] [address] , [place] [address] * THYROID STIMULATING HORMONE (02/19/2023 8:59 AM EST) Only the most recent of12 resultswithin the time period is included. TSH 1.270 0.270 - 4.200 mcIU/mL 02/19/2023 4:47 PM EST [email or web address] Blood VENOUS BLOOD / Unknown Venipuncture / Unknown 02/19/2023 8:59 AM EST 02/19/2023 8:59 AM EST Narrative [email or web address] - 02/19/2023 4:47 PM EST Ingestion of joaquin doses of biotin (>5 mg/day) taken within 8 hours of drawing blood sample can interfere with this immunoassay test. Viral Gross V, DO CHEMISTRY ORDERABLES Final Res ult Performing Organization Address [facility] de Phone Number [email or web address] [address] [place] [address] , [place] [address] * OCT, RETINA - OU - BOTH EYES (10/03/2022 3:40 PM EDT) Narrative SEP OFFICE - 10/03/2022 3:40 PM EDT Patient is here for follow up imaging. Notes OD,OS Signal Strength 9/10, 10/10 Average Thickness 243, 250 macular cysts - improved from last visit us Merle Kline OD OPHTHALMOLOGY SERVICES ORDERA BLES Final Result Performing Organization Address [facility] [[email or web address]] de Phone Number SEP OFFICE * T4, FREE (THYROXINE) (10/03/2022 1:57 PM EDT) Only the most recent of5 resultswithin the time period is included. Free T4 1.38 0.80 - 1.80 ng/dL 10/03/2022 8:59 PM EDT [facility] Blood VENOUS BLOOD / Unknown Venipuncture / Unknown 10/03/2022 1:57 PM EDT 10/03/2022 1:57 PM EDT Narrative [facility] - 10/03/2022 8:59 PM EDT Ingestion of joaquin doses of biotin (>5 mg/day) taken within 8 hours of drawing blood sample can interfere with this immunoassay test. us Viral Gross V, DO CHEMISTRY ORDERABLES Final Res ult Performing Organization Address City/[facility]/ZIP Co de Phone Number [facility] [address] [facility] , [place] [address] * (ABNORMAL) POCT GLYCATED HEMOGLOBIN, TOTAL (09/28/2022 12:34 PM EDT) Only the most recent of6 resultswithin the time period is included. Hemoglobin A1C 10(A) 4 - 6 % SEP OFFICE Lot Number SEP OFFICE Expiration Date SEP OFFICE SeriAl # SEP OFFICE 09/28/2022 12:3 4 PM EDT us Edith Arehart PIPING DRAFTER POINT OF CARE TEST ORDERABLES Final Result Performing Organization Address [facility] Co de Phone Number SEP OFFICE [...] 12:3 3 PM EDT us Edith Arehart PIPING DRAFTER POINT OF CARE TEST ORDERABLES Final Result Performing Organization Address City/[facility] Co de Phone Number SEP OFFICE * POCT VERONA STREP A+ (09/28/2022 12:33 PM EDT) STREP A+ ANTIGEN Negative Negative SEP OFFICE Lot Number SEP OFFICE Expiration Date SEP OFFICE SeriAl # SEP OFFICE Control Line Yes YES/NO SEP OFFICE 09/28/2022 12:3 3 PM EDT us Edith Oropeza PIPING DRAFTER POINT OF CARE TEST ORDERABLES Final Result [...] EDT 09/28/2022 12:21 PM EDT Edith Oropeza PIPING DRAFTER POINT OF CARE TEST ORDERABLES Final Result Performing Organization Address City/[facility]/ZIP Co de Phone Number [facility] [address] [place] [address] * (ABNORMAL) LIPID PANEL REFLEX (09/23/2022 11:56 AM EDT) Only the most recent of14 resultswithin the time period is included. Cholesterol 149 <200 mg/dL 09/23/2022 8:48 PM EDT [facility] Comment: < 200 Desirable 200 - 239 Borderline High >= 240 High Triglyceride 268(H) <150 mg/dL 09/23/2022 8:48 PM EDT [facility] Comment: < 150 Normal 150 - 199 Borderline High 200 - 499 High >= 500 Very High HDL 29(L) >=40 mg/dL 09/23/2022 8:48 PM EDT [facility] Comment: > 60 Optimal 40 - 60 Acceptable < 40 Low LDL Calculated 76 <100 mg/dL 09/23/2022 8:48 PM EDT [facility] Non-HDL-C Calculated 120 <=129 mg/dL 09/23/2022 8:48 PM EDT [facility] Comment: <130 Desirable 130-159 Above Desirable 160-189 Borderline High 190-219 High >= 220 Very High Fasting Specimen? Yes None 023 8:48 PM EDT [facility] Blood VENOUS BLOOD / Unknown Venipuncture / Unknown 09/23/2022 11:56 AM EDT 09/23/2022 11:57 AM EDT Sapphire Munguia MD CHEMISTRY ORDERABLES Final Result Performing Organization Address City/[facility]/ZIP Co de Phone Number [facility] [address] , [place] [address] [facility] [address] [place] [address] * VITAMIN B12/ FOLIC ACID (09/23/2022 11:56 AM EDT) Only the most recent of2 resultswithin the time period is included. Vitamin B12 431 232 - 1,245 pg/mL 09/23/2022 9:24 PM EDT [facility] Folate >16.00 >=4.50 ng/mL 09/23/2022 9:24 PM EDT [email or web address] Blood VENOUS BLOOD / Unknown Venipuncture / Unknown 09/23/2022 11:56 AM EDT 09/23/2022 11:57 AM EDT Narrative [facility] - 09/23/2022 9:24 PM EDT Ingestion of joaquin doses of biotin (>5 mg/day) taken within 8 hours of drawing blood sample can interfere with this immunoassay test. us Viral Gross V, DO CHEMISTRY ORDERABLES Final Res ult Performing Organization Address City/[facility]/ZIP Co de Phone Number [email or web address] [address] [place] [address] , [place] [address] * MAGNESIUM LEVEL (09/23/2022 11:56 [...] ult [facility] [address] [facility] , [place] [address] * (ABNORMAL) WOUND CULTURE (STAIN INCLUDED) (08/21/2022 [...] us Deepak Garza MD MICROBIOLOGY - GENERAL [facility] Final Result [facility] [address] [place] [address] , [place] [address] * FL US EVALUATE PSEUDOANEURYSM RIGHT (08/21/2022 9:09 AM [...] evidence of apical thrombus. Nimisha Rodriguez DO [facility] ECHO ORDERABLES Final Res ult * PROCALCITONIN (08/19/2022 5:11 AM EDT) Pathologist [facility] Procalcitonin 0.09 <=0.49 ng/mL 08/19/2022 6:02 AM [...] Rodriguez DO CHEMISTRY ORDERABLES Final Re sult [facility] [address] [place] [address] * CT PELVIS W CONTRAST [...] is a low-density right parotid gland mass [id number] mm in the deep lobe of the [...] 0.25 <=4.00 ng/mL 05/27/2022 2:59 PM EDT [email or web address] Blood VENOUS BLOOD / Unknown Venipuncture / Unknown 05/27/2022 9:07 AM EDT 05/27/2022 9:07 AM EDT Narrative [email or web address] - 05/27/2022 2:59 PM EDT The [facility] [...] Rey DO CHEMISTRY ORDERABLES Final Res ult [email or web address] [address] [place] [address] , [place] [address] * XR KNEE RIGHT AP LATERAL AND [...] DIAGNOSTIC IMAGING ORDERAB LES Final Result * KS ARTHROCENTESIS ASPIR&/INJ MAJOR JT/BURSA W/O US (04/28/2022 1:00 PM EST) Narrative [facility] - 04/28/2022 1:00 PM EST Allison [...] APRN PROCEDURE/MINOR SURGICAL ORDER SIOBHAN Final Result [facility] [address] [place] [id number] * XR KNEE LEFT AP LAT INT [...] the ordering clinician. us Tameka Simi [place] PIPING DRAFTER IMG DIAGNOSTIC IMAGING ORDERA BLES Final Result [...] Fluoroscop y Narrative 01/12/2022 3:36 PM EDT [facility] PROCEDURE NOTE Jackie Abdi January 12, [...] home. Carlos Langston MD Interventional Pain Management [facility] Date: 01/12/2022 us Carlie Connolly PIPING DRAFTER IMG IR ORDERABLES Final Resu lt * COMPLIANCE PANEL, URINE (01/03/2022 10:15 AM EDT) Medications Expected Tramadol 12/11 7:00 PM EDT [facility] Barbiturates Absent Cutoff 200 ng/mL 01/05/2022 7:00 PM EDT [facility] THC <10 Cutoff 10 ng/mL ng/mL 01/05/2022 7:00 PM EDT [facility] Comment:5-cynrfah-bugfwaodtf cannabinol; does not distinguish between prescribed and [...] 01/05/2022 7:00 PM EDT [facility] Comment:e.g., Klonopin, Clon opin 7-Aminoclonazepam <25 Cutoff 25 ng/mL ng/mL 01/05/2022 7:00 PM EDT [facility] Comment:Metabolite of Clonaz epam Diazepam <10 Cutoff 10 ng/mL ng/mL 01/05/2022 7:00 PM EDT [facility] Comment:e.g, Valium, Diastat Nordiazepam <25 Cutoff 25 ng/mL ng/mL 01/05/2022 7:00 PM EDT [facility] Comment:Metabolite of Chlord iazepoxide(Librium), Clorazepate(Tranxene), Diazepam, Halazepam, [...] 01/05/2022 7:00 PM EDT [facility] Comment:e.g., Ativan Lorazepam Glucuronide <50 Cutoff 50 ng/mL ng/mL 01/05/2022 7:00 PM EDT [facility] Comment:Metabolite of Loraze eduar Midazolam <50 Cutoff 50 ng/mL ng/mL 01/05/2022 7:00 PM EDT [facility] Comment:e.g., Versed alpha-hydroxymidazolam <50 Cutoff 50 ng/mL ng/mL 01/05/2022 7:00 PM EDT [facility] Comment:Metabolite of Versed Oxazepam <50 Cutoff 50 ng/mL ng/mL 01/05/2022 7:00 PM EDT [facility] Comment:e.g., Serax; also Me tabolite of Temazepam, and Nordiazepam Oxazepam Glucuronide <50 Cutoff 50 ng/mL ng/mL 01/05/2022 7:00 PM EDT [facility] Comment:Metabolite of Oxazep am Temazepam <50 Cutoff 50 ng/mL ng/mL 01/05/2022 7:00 PM EDT [facility] Comment:e.g., Restoril; also Metabolite of Diazepam Temazepam Glucuronide <50 Cutoff 50 ng/mL ng/mL 01/05/2022 7:00 PM EDT [facility] Comment:Metabolite of Temaze eduar and Diazepam Triazolam <50 Cutoff 50 ng/mL ng/mL 01/05/2022 7:00 PM EDT [facility] Comment:e.g., Halcion alpha-hydroxytriazolam <50 Cutoff 50 ng/mL ng/mL 01/05/2022 7:00 PM EDT [facility] Comment:Metabolite of Triazo belle Buprenorphine <5 Cutoff 5 ng/mL ng/mL 01/05/2022 7:00 PM EDT [facility] Comment:e.g., Suboxone, Subu alena,Sublocade, Buprenex Buprenorphine Glucuronide <10 Cutoff 10 ng/mL ng/mL 01/05/2022 7:00 PM EDT [facility] Comment:Buprenorphine Metabo lite Norbuprenorphine <5 Cutoff 5 ng/mL ng/mL 01/05/2022 7:00 PM EDT [facility] Comment:Buprenorphine Metabo lite Norbuprenorphine Glucuronide <10 Cutoff 10 ng/mL ng/mL 01/05/2022 7:00 PM EDT [facility] Comment:Buprenorphine Metabo lite Benzoylecgonine <50 Cutoff 50 ng/mL ng/mL 01/05/2022 7:00 PM EDT [facility] Comment:Cocaine Metabolite Fentanyl <1 Cutoff 1 ng/mL ng/mL 01/05/2022 7:00 PM EDT [facility] Comment:e.g.,Duragesic, Oral et, Actiq, Sublimaze, Innovar, Lazanda Norfentanyl <1 Cutoff 1 ng/mL ng/mL 01/05/2022 7:00 PM EDT [facility] Comment:Metabolite of Fentan yl 6-Monoacetylmorphine (6MAM) <10 Cutoff 10 ng/mL ng/mL 01/05/2022 7:00 PM EDT [facility] Comment:Metabolite of Heroin ; Morphine is expected Methadone <50 Cutoff 50 ng/mL ng/mL 01/05/2022 7:00 PM EDT [facility] Comment:e.g., Dolophine, Met hadose, Amidone EDDP <50 Cutoff 50 ng/mL ng/mL 01/05/2022 7:00 PM EDT [facility] Comment:Methadone Metabolite Carisoprodol <100 Cutoff 100 ng/mL ng/mL 01/05/2022 7:00 PM EDT [facility] Comment:e.g., Soma Meprobamate <100 Cutoff 100 ng/mL ng/mL 01/05/2022 7:00 PM EDT [facility] Comment:e.g., Orange, Equa nil, Micrainin, Equagesic; Metabolite of Carisoprodol Codeine <50 Cutoff 50 ng/mL ng/mL 01/05/2022 7:00 PM EDT [facility] Comment:e.g., Acetaminophen w/Codeine, Tylenol3 w/ Codeine Codeine Glucuronide <50 Cutoff 50 ng/mL ng/mL 01/05/2022 7:00 PM EDT [facility] Comment:Metabolite of Codein e Meperidine <50 Cutoff 50 ng/mL ng/mL 01/05/2022 7:00 PM EDT [facility] Comment:e.g., Demerol, Pethi dine Normeperidine <50 Cutoff 50 ng/mL ng/mL 01/05/2022 7:00 PM EDT [facility] Comment:Metabolite of Meperi dine Morphine <50 Cutoff 50 ng/mL ng/mL 01/05/2022 7:00 PM EDT [facility] Comment:e.g., MS Contin, Cassy anol; Metabolite of Codeine and Heroin; may reflect poppy seed ingestion Exgqktdd-3-Msteuezaaxh <25 Cutoff 25 ng/mL ng/mL 01/05/2022 7:00 PM EDT [facility] Comment:Metabolite of Morphi ne. Dwyvrdft-0-Gbbqljitjgh <25 Cutoff 25 ng/mL ng/mL 01/05/2022 7:00 PM EDT [facility] Comment:Metabolite of Morphi ne. Naloxone <25 Cutoff 25 ng/mL ng/mL 01/05/2022 7:00 PM EDT [facility] Comment:e.g., Narcan, Evzio Hydrocodone <50 Cutoff 50 ng/mL ng/mL 01/05/2022 7:00 PM EDT [facility] Comment:e.g., Lorcet, Lortab , Vicodin, Westview; Minor Metabolite of Codeine Dihydrocodeine <50 Cutoff 50 ng/mL ng/mL 01/05/2022 7:00 PM EDT [facility] Comment:e.g., Didrate, Parzo ne, Parlor, Synalgos; Metabolite of Hydrocodone Norhydrocodone <50 Cutoff 50 ng/mL ng/mL 01/05/2022 7:00 PM EDT [facility] Comment:Metabolite of Hydroc odone Hydromorphone <50 Cutoff 50 ng/mL ng/mL 01/05/2022 7:00 PM EDT [facility] Comment:e.g., Dilaudid; also Metabolite of Hydrocodone and Minor Metabolite of Morphine Hydromorphone Glucuronide <50 Cutoff 50 ng/mL ng/mL 01/05/2022 7:00 PM EDT [facility] Comment:Metabolite of Hydrom orphone Oxycodone <50 Cutoff 50 ng/mL ng/mL 01/05/2022 7:00 PM EDT [facility] Comment:e.g., Oxycontin, Per cocet, Endocet, Percodan, Roxicet Noroxycodone <50 Cutoff 50 ng/mL ng/mL 01/05/2022 7:00 PM EDT [facility] Comment:Metabolite of Oxycod one Oxymorphone <50 Cutoff 50 ng/mL ng/mL 01/05/2022 7:00 PM EDT [facility] Comment:e.g., Opana; Metabol ite of Oxycodone Oxymorphone Glucuronide <50 Cutoff 5 0 ng/mL ng/mL 01/05/2022 7:00 PM EDT [facility] Comment:Metabolite of Oxycod one Noroxymorphone <50 Cutoff 50 ng/mL ng/mL 01/05/2022 7:00 PM EDT [facility] Comment:Metabolite of Oxycod one, and Oxymorphone, Noroxycodone Metabolite Tramadol <50 Cutoff 50 ng/mL ng/mL 01/05/2022 7:00 PM EDT [facility] Comment:e.g., Ultram, ConZip P-Ftaiqhsrj-mnv-Tramadol <50 Cutoff 50 ng/mL ng/mL 01/05/2022 7:00 PM EDT [facility] Comment:Metabolite of Tramad ol Tapentadol <50 Cutoff 50 ng/mL ng/mL 01/05/2022 7:00 PM EDT [facility] Comment:Nucynta Tapentadol-Glucuronide <50 Cutoff 50 ng/mL ng/mL 01/05/2022 7:00 PM EDT [facility] Comment:Metabolite of Tapent adol Urine Creatinine 135.9 mg/dL 01/06/20 7:00 PM EDT [facility] Comment: Greater than 20: Consistent with valid sample Greater than 2 but less than 20: Possible dilution Less than 2: Questionable valid sample Urine URINE SPECIMEN COLLECTION / Unknown 01/03/2022 10:15 AM EDT 01/03/2022 10:15 AM EDT Narrative [facility] - 01/05/2022 7:00 PM EDT The absence of expected drug(s), and/or drug metabolite(s), may indicate non-compliance, diluted or adulterated urine, poor drug absorption, concentration of drug below the cut-off, timing of specimen collection relative to administration of drug, or limitations of testing. If results do not fit clinical expectations, please reach out to the Toxicology department at [phone]. Specimens are held for 7 days. This test was developed, and its performance characteristics determined by [facility] ([facility]). It has not been cleared or approved by the FDA. This test is used for clinical purposes. It should not be regarded as investigational or for research. [facility] is certified under the Clinical Laboratory Improvement Amendments (CLIA) as qualified to perform high complexity clinical laboratory testing. Drea Acuna APRN URINE ORDERABLES Final Result [email or web address] [address] [place] [address] , [place] [address] * MRI LUMBAR SPINE WO [...] AM CLINICAL HISTORY: M54.41-Lumbago with sciatica, right yxbt-GTP-04-CM G89.29-Other chronic mvxj-DEZ-73-CM. COMPARISON: 01/04/2021 PROCEDURE COMMENTS: Multiplanar multiecho MR [...] AM CLINICAL HISTORY: M54.41-Lumbago with sciatica, right lmfo-IQB-83-CM G89.29-Other chronic juah-HUV-00-CM. COMPARISON: 01/04/2021 PROCEDURE COMMENTS: Multiplanar multiecho MR [...] of the ordering clinician. Drea Acuna APRN [facility] MRI ORDERABLES Final Result * XR THORACIC [...] the ordering clinician. us Lawanda Dutton APRN [facility] DIAGNOSTIC IMAGING DAGOBERTO OCHOA Final Result * [...] No acute osseous findings. - Eloy Carter DP IMG DIAGNOSTIC IMAGING ORDERABLES Final Result * IR 2 LEVEL BILATERAL MEDIAL BRANCH BLOCK CERV THOR (07/08/2021 2:47 PM EDT) Anatomical Region Laterality Modality Interventional R adiology Narrative 07/08/2021 5:08 PM EDT [facility] PROCEDURE NOTE Jackie Abdi July 08, [...] @VITALS@ Carlos Langston MD Interventional Pain Management [facility] [place] Date: 07/08/2021 Drea Acuna APRN IMG IR ORDERABLES Final Result * IR SACROILIAC JOINT INJECTION (06/24/2021 2:10 PM EDT) Anatomical Region Laterality Modality Interventional R adiology Narrative 06/24/2021 5:32 PM EDT [facility] PROCEDURE NOTE Jackie Abdi June 24, [...] @VITALS@ Carlos Langston MD Interventional Pain Management [facility] [place] Date: 06/24/2021 Drea Acuna APRN IMG IR ORDERABLES Final Result * (ABNORMAL) FRUCTOSAMINE (06/15/2021 7:47 AM EDT) Only the most recent of9 resultswithin the time period is included. Fructosamine 325(H) 205 - 285 mcmol/L 06/15/2021 6:33 PM EDT [facility] [employer] Blood Venipuncture / Unknown 06/15/2021 7:47 AM EDT 06/15/2021 7:47 AM EDT Narrative [facility] - 06/15/2021 6:33 PM EDT Serum protein level variations may alter fructosamine results. Agustin Graves MD CHEMISTRY ORDERABLES Final Resu lt Performing Organization Address [facility] Co de Phone Number [facility] [address] , [place] [address] * C-REACTIVE PROTEIN (06/15/2021 7:47 AM EDT) Only the most recent of11 resultswithin the time period is included. CRP <3.00 <=5.00 mg/L 06/15/2021 3:38 PM EDT [facility] Blood Venipuncture / Unknown 06/15/2021 7:47 AM EDT 06/15/2021 7:47 AM EDT Agustin Graves MD CHEMISTRY ORDERABLES Final Resu lt Performing Organization Address City/[facility] Co de Phone Number [facility] [employer] , [place] [address] * (ABNORMAL) VITAMIN B12 LEVEL (06/15/2021 7:47 AM EDT) Only the most recent of14 resultswithin the time period is included. Vitamin B12 >1,600(H) 232-1,245 pg/mL 06/15/2021 6:33 PM EDT [facility] Blood Venipuncture / Unknown 06/15/2021 7:47 AM EDT 06/15/2021 7:47 AM EDT Narrative [facility] - 06/15/2021 6:33 PM EDT Ingestion of joaquin doses of biotin (>5 mg/day) taken within 8 hours of drawing blood sample can interfere with this immunoassay test. Agustin Graves MD CHEMISTRY ORDERABLES Final Resu lt Performing Organization Address [facility] Co de Phone Number [facility] [address] , [place] [address] * C DIFF TOXIN DNA (05/20/2021 7:44 AM EST) Pathologist [facility] C Diff Toxin DNA Negative Negative 05/20/2021 3:39 PM EST [email or web address] Stool 05/20/2021 7:44 AM EST 05/20/2021 7:44 AM EST [facility] - 05/20/2021 3:39 PM EST [...] assay utilizes real time PCR on the [employer] Gene[employer]pert Infinity, and its performance has been verified by the [facility]. A negative result does not rule out the presence of the Clostridium difficile in concentrations below the limit of detection for the assay. Ruthy Montaño MD MICROBIOLOGY - GENERAL ORDERA BLES Final Result Performing Organization Address [facility] Co de Phone Number [facility] [employer] , [place] [address] * SHIGA TOXIN (05/20/2021 7:44 AM EST) Pathologist [facility] Shiga Toxin Shiga toxins (produced by E. coli) not detected. Shiga toxins (produced by E. coli) not detected. 05/20/2021 8:[address] [facility] Stool SPECIMEN FROM RECTUM / Unknown 05/20/2021 7:44 AM EST 05/20/2021 7:44 AM EST Ruthy Montaño MD MICROBIOLOGY - GENERAL ORDERA BLES Final Result Performing Organization Address [facility]/ZIP Co de Phone Number [facility] [employer], [place] [address] * STOOL CULTURE (NO STAIN) (05/20/2021 7:44 AM EST) Culture No growth of enteric pathogens, including Salmonella, Shigella, Campylobacter, Vibrio, Yersinia, Aeromonas, Plesiomonas, or E. coli O157. 05/23/2021 1:12 PM EDT [facility] Stool SPECIMEN FROM RECTUM / Unknown 05/20/2021 7:44 AM EST 05/20/2021 7:44 AM EST Ruthy Montaño MD MICROBIOLOGY - GENERAL ORDERA BLES Final Result Performing Organization Address [facility] Co de Phone Number [facility] [employer], [place] [address] * (ABNORMAL) FECAL WHITE BLOOD CELLS (05/20/2021 7:44 AM EST) Fecal WBCs Positive(A ) Negative 05/20/2021 5:42 PM EST [facility] Stool COLON STRUCTURE / Unknown 05/20/2021 7:44 AM EST 05/20/2021 7:44 AM EST Narrative [facility] - 05/20/2021 5:42 PM EST POSITIVE for elevated levels of lactoferrin from white blood cells. Ruthy Montaño MD MICROBIOLOGY - GENERAL ORDERA BLES Final Result Performing Organization Address City/[facility]/ZIP Co de Phone Number [facility] [address] [place] [address] * MRI CERVICAL SPINE WO CONTRAST (04/29/2021 [...] but incompletely visualized/assessed right parotid gland mass. Oauek-hl-fhmul analysis: C2-3: Left uncovertebral hypertrophy with bilateral [...] Redemonstrated but incompletelyvisualized/assessed right parotid gland mass. Zvfhm-gf-ueuvu analysis: C2-3: Left uncovertebral hypertrophy with bilateral [...] APRN G MRI ORDERABLES Final Result * [facility] CAROTID DUPLEX BILATERAL (04/22/2021 3:42 PM EST) [...] R adiology Narrative 04/05/2021 11:12 AM EST [facility] PROCEDURE NOTE Jackie Abdi April 05, [...] @[email or web address]@ Carlos Langston MD Interventional Pain Management [facility] Spine [facility] [place] Date: 04/05/2021 Holley Torres APRN IMG IR ORDERABLES Final Re sult * URIC ACID (03/09/2021 8:32 AM EST) Only the most recent of3 resultswithin the time period is included. Uric Acid 4.9 3.4 - 7.0 mg/dL 03/09/2021 2:30 PM EST [facility] Blood Venipuncture / Unknown 03/09/2021 8:32 AM EST 03/09/2021 8:32 AM EST us Agustin Graves MD CHEMISTRY ORDERABLES Final Resu lt [facility] [address] [facility], [address] [place] [id number] * (ABNORMAL) IRIS DIABETIC RETINOPATHY EXAM (02/14/2021 1:39 PM EST) [facility] Retinopathy Exam Severity ALERT(A) [facility] LAB Right Diabetic Retinopathy Mild(A) SE LAB Right Macular Edema Positive [facility] Right Other Retina None [facility] Right Eye Image Quality Gradable Image [facility] Left Diabetic Retinopathy Mild(A) SE LAB Left Macular Edema None [facility] Left Other Retina None [facility] Left Eye Image Quality Gradable Image [facility] 02/14/2021 1:39 PM EST 02/14/2021 1:39 PM EST Impressions [facility] - 02/14/2021 7:24 PM EST Retinal Study Result for yoli HANEY 65 y/o, M (: 1955, ) presented to [facility] on 02-14-2021 for a retinal imaging study of the left and right eyes. Based on the findings of the study, the following is recommended for JACKIE ABDI Next Available Appointment: Refer patient to Ophthalmology, as soon as possible. Interpreting Provider's Comments: No comments provided Diagnoses Present: E119 - Type 2 diabetes mellitus without complications [id number] - Diabetes mellitus due to underlying condition with mild nonproliferative diabetic retinopathy without macular edema Left Eye [id number] - Diabetes mellitus due to underlying condition with mild nonproliferative diabetic retinopathy with macular edema Right Eye Right eye findings: Diabetic Retinopathy: Mild Macular Edema: Positive Left eye findings: Diabetic Retinopathy: Mild Negative for Macular Edema This result was electronically signed by Ja Rios, JARREDI: [id number], Taxonomy: [id number] on 02-15-2021 12:24 UTC. NOTE: Any pathology noted on this diabetic retinal evaluation should be confirmed by an appropriate ophthalmic examination. us Oswaldo Harry MD OPHTHALMOLOGY SERVICES O RDERABLES Final Result [facility] [address] [place] [id number] * IR LUMBAR/SACRAL JASON WITH GUIDANCE (02/08/2021 11:29 AM EST) Anatomical Region Laterality Modality Interventional R adiology Narrative 02/08/2021 12:28 PM EST [facility] PROCEDURE NOTE LuzJackie Felicita February 08, 2021 SURGEON(S): Carlos Langston MD [...] @VITALS@ Carlos Langston MD Interventional Pain Management [facility] Date: 02/08/2021 us Carlos Langston MD IMG IR ORDERABLES Final R esult * TESTOSTERONE LEVEL TOTAL (06/16/2020 8:02 AM EDT) Only the most recent of3 resultswithin the time period is included. Pathologist [facility] Testosterone Lvl 361 300 - 720 ng/dL 06/16/2020 2:34 PM EDT [facility] Blood Venipuncture / Unknown 06/16/2020 8:02 AM EDT 06/16/2020 8:02 AM EDT Narrative PREFERRED [facility] - 06/16/2020 2:34 PM EDT Values less than 12 ng/dL are not reliable as the intermediate precision coefficient of variation is > 20%. Ingestion of joaquin doses of biotin (>5 mg/day) taken within 8 hours of drawing blood sample can interfere with this immunoassay test. us Viral Gross V, DO CHEMISTRY ORDERABLES Final Res ult [facility] 1 [facility] , [place] [address] * C-PEPTIDE (01/16/2020 7:49 AM EST) Only the most recent of5 resultswithin the time period is included. Pathologist [facility] C-Peptide 5.16 0.78 - 5.19 ng/mL 01/16/2020 3:47 PM EST [facility] Blood Venipuncture / Unknown 01/16/2020 7:49 AM EST 01/16/2020 7:49 AM EST us Agustin Graves MD CHEMISTRY ORDERABLES Final Resu lt [facility] [address] [place] [address], [address] [place] [id number] * US GUIDED PAROTID BIOPSY-FNA (01/13/2020 1:00 PM EST) Anatomical Region Laterality Modality Head Ultrasound 01/13/2020 1:00 PM EST Impressions 01/13/2020 3:52 PM EST Successful, uncomplicated ultrasound-guided parotid FNA biopsy procedure. Narrative 01/13/2020 3:52 PM EST US GUIDED PAROTID BIOPSY-FNA 01/13/2020 1:00 PM HISTORY: K11.8-Other diseases of salivary kqrtry-CSP-69-CM. Indeterminate right parotid mass questioned on recent [...] felt to be satisfactory by the attending manager reimbursement. Approximate 15 images and multiple cine loops recorded during the biopsy procedure. No postprocedural complication. The patient was discharged home in stable condition with specific postbiopsy care instructions. Procedure Note Jasper Montaño DO - 01/13/2020 US GUIDED PAROTID BIOPSY-FNA 01/13/2020 1:00 PM HISTORY: K11.8-Other diseases of salivary bkjvnq-WKB-77-CM. Indeterminateright parotid mass questioned on recent noncontrast [...] felt to be satisfactory by the attending manager reimbursement. [id number] images and multiple cine loops recorded during the biopsy procedure. No postprocedural complication. The patient was discharged home in stablecondition with specific postbiopsy care instructions. IMPRESSION: Successful, uncomplicated ultrasound-guided parotid FNA biopsy procedure. 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 01/14/2020 11:17 AM EST [facility] at 1117 EST EMBEDDED IMAGES 01/14/2020 11:17 AM EST [facility] MICROSCOPIC DESCRIPTION Microscopic examination is performed and the findings corroborate the diagnosis 01/14/2020 11:17 AM [facility] Description FNA Parotid, Right Parotid, Rec'd 6 slides and cytolyt.(CB) Evaluation Episode #1: Adequate / DT 01/14/2020 11:17 AM EST [facility] Aspirate PAROTID GLAND STRUCTURE / Unknown 01/13/2020 11:52 AM EST 01/13/2020 1:45 PM EST Lyle Solo MD CYTOLOGY ORDERABLES Final Res ult Performing Organization Address City/[facility]/ZIP Co de Phone Number [facility] [address] [place] [address] * CORONAVIRUS 2019 (01/09/2020 1:00 PM EDT) Only the most recent of2 resultswithin the time period is included. Pathologist [facility] CORONAVIRUS [id number] Not Detected Not Detected 01/09/2020 10:32 PM EDT PREFERRED [facility] Comment:Caution should be ex ercised when interpreting [...] EDT 01/09/2020 1:02 PM EDT Narrative PREFERRED [facility] - 01/09/2020 10:32 PM EDT This test is a nucleic acid amplification test intended for the qualitative detection of nucleic acid from the SARS-CoV-2 in upper respiratory samples collected from individuals suspected of COVID-19. Test is performed on the Bring[employer] platform under the FDA's Emergency Use Authorization (EUA). [employer] Provider Fact Sheet: https://www.fda.gov/media/372469/download [employer] Patient Fact Sheet: https://www.fda.gov/media/867223/download us Lyle Solo MD MICROBIOLOGY - GENERAL ORDERA BLES Final Result Performing Organization Address City/[facility]/ZIP Co de Phone Number [email or web address] [address] [facility], [place] [address] * (ABNORMAL) POCT BLADDER SCAN (12/15/2019 10:09 AM EDT) Only the most recent of7 resultswithin the time period is included. [facility] Urine Volume (Preservative) 315cc SEP OFFICE 12/15/2019 10:0 9 AM EDT Alva Zelaya PA-C POINT OF CARE IMAGING Amie l Result SEP OFFICE * (ABNORMAL) SEP URINALYSIS POC (12/15/2019 9:41 AM EDT) Only the most recent of3 resultswithin the time period is included. UA Color POC Yellow Color 12/15/2019 9:43 AM EDT [facility] UA Appear POC Clear Clear 12/15/2019 9:43 AM EDT [facility] UA Gluc POC 100(A) Negative mg/dL 12/15/2019 9:43 AM EDT [facility] UA Bili POC Negative Negative 12/15/2019 9:43 AM EDT [facility] UA Ketones POC Negative Negative mg/dL 12/15/2019 9:43 AM EDT [facility] UA SG POC 1.020 1.001 - 1.035 no units 12/15/2019 9:43 AM EDT [facility] UA Blood POC Moderate(A) Negative 12/15/2019 9:43 AM EDT [facility] UA pH POC 6.0 5.0 - 8.0 pH 12/15/2019 9:43 AM EDT [facility] UA Protein POC Negative Negative mg/dL 12/15/2019 9:43 AM EDT [facility] UA Urobilinogen POC 0.2 0.2, 1.0 12/15/2019 9:43 AM EDT [facility] UA Nitrite POC Negative Negative 12/15/2019 9:43 AM EDT [facility] UA Leuk Est POC Trace(A) Negative 0 9:43 AM EDT [facility] Urine STRUCTURE OF URINARY TRACT PROPER / Unknown 12/15/2019 9:41 AM EDT 12/15/2019 9:43 AM EDT Alva Zelaya PA-C POINT OF CARE TEST ORDERAB LES Final Result [facility] UROLOGY [facility] [address] [place] [id number] * CT CERVICAL SPINE WO CONTRAST (12/02/2019 [...] uncovertebral hypertrophy, mild on the right and gami-cc-moogohes on the left at C5-6 due to uncovertebral hypertrophy, and mild on the right and moderate on the left at C6-7 due to uncovertebral hypertrophy. There is frcy-qx-vcaxhkjb atherosclerotic calcification regional to both common carotid [...] to uncovertebral hypertrophy, mild on theright and zruw-ja-xlakdyqs on the left at C5-6 due to uncovertebral hypertrophy,and mild on the right and moderate on the left at C6-7 due to uncovertebral hypertrophy. There is opsj-mb-axwwhicq atherosclerotic calcification regional to bothcommon carotid artery [...] ORDERA BLES Final Result Performing Organization Address [facility] de Phone Number [facility] [address] [place] [address] * EXTRA LAVENDER (12/01/2019 4:25 PM EDT) Blood VENOUS BLOOD / Unknown Venipuncture / Unknown 12/01/2019 4:25 PM EDT 12/01/2019 4:37 PM EDT Alma Barba MD HEMATOLOGY ORDER SIOBHAN Final Result Performing Organization Address [facility] Phone Number [facility] [address] [place] [address] * EXTRA LIGHT BLUE (12/01/2019 4:25 PM EDT) Blood VENOUS BLOOD / Unknown Venipuncture / Unknown 12/01/2019 4:25 PM EDT 12/01/2019 4:37 PM EDT Alma Barba MD HEMATOLOGY ORDER SIOBHAN Final Result Performing Organization Address [facility] de Phone Number [facility] [address] [place] [address] * SCANNED RHYTHM STRIPS (11/24/2019 4:29 PM EDT) Only the most recent of12 resultswithin the time period is included. Anatomical Region Laterality Modality Other 11/24/2019 4:29 PM EDT Unknown Unknown IMG ECG ORDERABLES Final Result * PATHOLOGY TISSUE REQUEST (11/20/2019 3:18 PM EDT) Only the most recent of3 resultswithin the time period is included. CASE REPORT Surgical Pathology Case: [id number] Authorizing Provider: Ina Overton MD Collected: 11/20/2019 1518 Ordering Location: [facility] Received: 11/20/2019 4035 Pathologist: Pamela Harmon MD Specimen: Prostate, *prostate chips* 11/26/2019 7:21 AM EDT [facility] FINAL DIAGNOSIS Prostate, 9 gram, transurethral resection: - Nodular prostatic hyperplasia. 11/26/2019 7:21 AM EDT [facility] 0721 EDT GROSS DESCRIPTION Received in formalin labeled with the patient's name and prostate chips is a 9 g, 8.6 x 4.7 x 0.7 cm aggregate of baer-granado to white-granado tissue which is entirely submitted in eight cassettes. /TE 11/26/2019 7:21 AM EDT [facility] MICROSCOPIC DESCRIPTION Microscopic examination is performed and the findings corroborate the diagnosis. 11/26/2019 7:21 AM EDT [facility] EMBEDDED IMAGES 11/26/2019 7:21 AM EDT [facility] Tissue PROSTATE / Unknown 0 3:18 PM EDT 11/20/2019 6:52 PM EDT us Ina Overton MD PATHOLOGY ORDERABLES Final Res ult [facility] [address] [place] [address] [facility] [address] [place] [address] * INTRAOP AIRWAY PLACEMENT (11/20/2019 2:43 PM EDT) Narrative [facility] - 11/20/2019 2:43 PM EDT Tod Buckley CRNA 11/20/2019 2:44 PM Intraop Airway Placement: Induction type: IV Laryngoscope blade: Bethea Airway type: ETT- cuffed Device size: 7.5mm Secured by: Tape Placement verified: Auscultation and End tidal CO2 Insertion attempts: 1 Title: BREADMAN Luis A Rodney MD [place] ANESTHESIA Final Result [facility] [address] [place] [id number] * XR SHOULDER BILATERAL 3 VIEWS (09/03/2019 2:04 PM EDT) Anatomical Region Laterality Modality Shoulder Radiographic Kimberly ging 09/03/2019 2:04 PM EDT Impressions 09/03/2019 2:35 PM EDT No significant arthritic process or acute bone or soft tissue abnormality. - Narrative 09/03/2019 2:35 PM EDT XR SHOULDER BILATERAL 3 VIEWS, 09/03/2019 2:04 PM CLINICAL HISTORY: M25.511-Pain in right rmgybtpx-WYE-41-CM M25.512-Pain in left wpgamxuh-VAG-90-CM COMPARISON: None. PROCEDURE COMMENTS: Bilateral imaging per the ordered protocol. FINDINGS: Right: Joint spaces are maintained. No erosions or periostitis. No significant bony or soft tissue finding. Left: Joint spaces are maintained. No erosions or periostitis. No significant bony or soft tissue finding. Procedure Note Nikunj Vidales MD - 09/03/2019 XR SHOULDER BILATERAL 3 VIEWS, 09/03/2019 2:04 PM CLINICAL HISTORY: M25.511-Pain in right rmlwlgpd-BIP-80-CM M25.512-Pain in left cvicxrzi-XEZ-31-CM COMPARISON: None. PROCEDURE COMMENTS: Bilateral imaging per [...] - 140 mg/dL 04/17/2019 12:25 PM EST [facility] Comment: REFERENCE INTERVAL: Apolipoprotein B Access complete set of age- and/or gender-specific reference intervals for this test in the [facility] Test Directory ([facility]). Performed by [facility], [address] [place] [address] [email or web address], Lencho Keys MD, Lab. Director Blood Venipuncture / Unknown 04/16/2019 10:36 AM EST 04/16/2019 10:36 AM EST us Agustin Graves MD CHEMISTRY ORDERABLES Final Resu lt [facility] [address] [place] [address] * CREATINE KINASE (01/25/2019 11:15 AM EST) CK 138 39 - 308 IU/L 01/25/2019 3:09 PM EST [email or web address] Blood VENOUS BLOOD / Unknown Venipuncture / Unknown 01/25/2019 11:15 AM EST 01/25/2019 11:15 AM EST Vernon Salinas MD CHEMISTRY ORDERABLES Fi nal Result [facility] [address] [place] [address] , [place] [address] * XR SHOULDER LEFT 4 VIEWS (01/25/2019 [...] 11:12 AM CLINICAL HISTORY: M25.512-Pain in left csduaory-YGK-53-CM G89.29-Other chronic mwmy-DKG-22-CM COMPARISON: Chest radiograph 09/20/2017 PROCEDURE COMMENTS: Routine views. FINDINGS: No acute fracture or dislocation. Mild AC joint degenerative changes. Type III acromion. Transverse lucency through undersurface hook is favored to be chronic. Broken upper sternotomy wires are evident. Procedure Note Alfredo oRque MD - 01/25/2019 XR SHOULDER LEFT 4 VIEWS, 01/25/2019 11:12 AM CLINICAL HISTORY: M25.512-Pain in left ysyztfnv-ZMN-29-CM G89.29-Other chronic jrlo-EGK-36-CM COMPARISON: Chest radiograph 09/20/2017 PROCEDURE COMMENTS: Routine views. FINDINGS: No acute fracture or dislocation. Mild AC joint degenerative changes. TypeIII acromion. Transverse lucency through undersurface hook is favored to bechronic. Broken upper sternotomy wires are evident. IMPRESSION: 1. No acute fracture. 2. Mild AC joint degenerative changes. 3. Type III acromion, which may predispose to impingement. - Vernon Salinas MD [facility] DIAGNOSTIC IMAGING ORDERABLES Final Result * PROSTATE SPECIFIC ANTIGEN (TUMOR MARKER) (11/26/2018 4:59 PM EDT) Only the most recent of2 resultswithin the time period is included. Total Psa 0.18 <=4.00 ng/mL 11/26/2018 9:36 PM EDT [facility] Blood Venipuncture / Unknown 11/26/2018 4:59 PM EDT 11/26/2018 4:59 PM EDT Narrative [facility] - 11/26/2018 9:36 PM EDT Prostate cancer [...] Alva Zelaya PA-C CHEMISTRY ORDERABLES Final Result PREF[facility]ED [facility] [address] [facility] , [place] [address] * (ABNORMAL) URINE CULTURE (NO STAIN) (10/25/2018 4:26 PM EDT) Only the most recent of5 resultswithin the time period is included. Culture Positive Growth(A) 2018 10:18 AM EDT [facility] Culture >636816 CFU/mL Staphylococcus epidermidis SUSCEPTIBI LITY RESULT 10/28/2018 10:18 AM EDT [facility] Urine URINE SPECIMEN COLLECTION, CLEAN CATCH / [...] also not be used alone. Dejuan Rosario PIPING DRAFTER MICROBIOLOGY - GENERAL ORDER SIOBHAN Final Result [facility] [address] [place] [address] , [place] [address] * IRIS DIABETIC RETINOPATHY EXAM (10/14/2018 5:11 PM EDT) [facility] Retinopathy Exam Severity NORMAL [facility] Right Diabetic Retinopathy None [facility] Right Macular Edema None [facility] Right Other Retina None SE LAB Right Eye Image Quality Gradable Image [facility] Left Diabetic Retinopathy None [facility] Left Macular Edema None [facility] Left Other Retina None [facility] Left Eye Image Quality Gradable Image [facility] 10/14/2018 5:11 PM EDT 10/14/2018 5:11 PM EDT Impressions [facility] - 10/14/2018 9:57 PM EDT Retinal Study Result for JACKIE ABDI JACKIE, yoli 62 y/o, M (: 1955, ) presented to [facility] on 10-14-2018 for a retinal [...] signed by Ja Rios MD, , Taxonomy: [id number] on 10-15-2018 01:57:54 UTC time. NOTE: Any pathology noted on this diabetic retinal evaluation should be confirmed by an appropriate ophthalmic examination. [facility] Hospital[facility] DO OPHTHALMOLOGY SERVICES ORDERABL ES Final Result Performing Organization Address [facility] de Phone Number [facility] [address] [place] [address] * POCT MICROALBUMIN (10/14/2018 4:39 PM EDT) Only the most recent of6 resultswithin the time period is included. Albumin, Ur 20 <=20 MG/L SEP OFFICE Lot Number [id number] SEP OFFICE Expiration Date 03/11/2019 SEP OFFICE SeriAl # SEP OFFICE Urine 10/14/2018 4:39 PM EDT [facility] Malika DO POINT OF CARE TEST ORDERABLES F inal Result Performing Organization Address [facility] de Phone Number SEP OFFICE * GMED EGD (09/20/2018 8:15 AM EDT) 09/20/2018 8:15 AM EDT Impressions [facility] - 09/20/2018 8:39 AM EDT Normal [...] ORDERABLES Fi nal Result Performing Organization Address [facility] de Phone Number [facility] [address] [place] [address] * INTRAOP AIRWAY PLACEMENT (09/20/2018 7:58 AM EDT) Narrative [facility] - 09/20/2018 7:58 AM EDT Jessica Epps CRNA 09/20/2018 7:58 AM Intraop Airway Placement: Airway type: Nasal cannula salter Procedure Note Jessica Epps CRNA - 09/20/2018 7:58 AM EDT Intraop Airway Placement: Airway type: Nasal cannula salter us Jessica Fair CRNA [place] ANESTHESIA Final Result [facility] [address] [place] [address] * GLUTAMIC ACID DECARBOXYLASE AB -REF LAB (07/29/2018 12:43 PM EDT) HUGH Ab <5.0 0.0 - 5.0 IU/mL 07/31/2018 8:21 PM EDT [facility] Comment: INTERPRETIVE INFORMATION: Glutamic Acid Decarboxylase Antibody A value greater than 5.0 IU/mL is considered positive for Glutamic Acid Decarboxylase Antibody (HUGH Ab). This assay is intended for the semi-quantitative determination of the HUGH Ab in human serum. Results should be interpreted within the context of clinical symptoms. Performed by [facility], [address] [place] [id number] [email or web address], Lencho Keys MD, Lab. Director Blood Venipuncture / Unknown 07/29/2018 12:43 PM EDT 07/29/2018 12:43 PM EDT Agustin Graves MD CHEMISTRY ORDERABLES Final Resu lt Performing Organization Address [facility]/ZIP Co de Phone Number [facility] [address] [place], [place] [id number] * (ABNORMAL) LIPOPROTEIN (A)-REF LAB (07/29/2018 12:43 PM EDT) Lipo (a) 111(H) <=29 mg/dL 07/31/2018 6:36 AM EDT [facility] Comment: Performed by [facility], [address] [place] [address] [email or web address], Lencho Keys MD, Lab. Director Blood Venipuncture / Unknown 07/29/2018 12:43 PM EDT 07/29/2018 12:43 PM EDT Agustin Graves MD CHEMISTRY ORDERABLES Final Resu lt Performing Organization Address [facility] Co de Phone Number [employer] [facility] [address] [place] [address] * ADRENOCORTICOTROPIC HORMONE -REF LAB (07/29/2018 12:43 PM EDT) ACTH 12 7 - 69 pg/mL 07/31/2018 11:03 AM EDT [employer] Comment: INTERPRETIVE INFORMATION: Adrenocorticotropic Hormone Some types of synthetic ACTH are not detected by this assay. Access complete set of age- and/or gender-specific reference intervals for this test in the [employer] [facility] Test Directory ([facility]). Performed by [facility], [address] [place] [id number] [email or web address], Lencho Keys MD, Lab. Director Blood Venipuncture / Unknown 07/29/2018 12:43 PM EDT 07/29/2018 12:43 PM EDT Agustin Graves MD CHEMISTRY ORDERABLES Final Resu lt Performing Organization Address [facility] de Phone Number [employer] [address] [place] [address] * LACTIC ACID (07/29/2018 12:43 PM EDT) Only the most recent of2 resultswithin the time period is included. Pathologist [facility] Lactic Acid 1.5 0.5 - 1.9 mmol/L 07/29/2018 1:00 PM EDT [facility] Blood Venipuncture / Unknown 07/29/2018 12:43 PM EDT 07/29/2018 12:43 PM EDT Agustin Graves MD CHEMISTRY ORDERABLES Final Resu Performing Organization Address [facility] Co de Phone Number [facility] [address] [place] [address] * CORTISOL (07/29/2018 12:43 PM EDT) Cortisol 7.69 mcg/dL 07/29/2018 5:4 4 PM EDT [facility] Blood Venipuncture / Unknown 07/29/2018 12:43 PM EDT 07/29/2018 12:43 PM EDT Narrative [facility] - 07/29/2018 5:44 PM EDT Normals: Mornin.2 - 19.4 mcg/dL Evenin.3 - 11.9 mcg/dL Ingestion of joaquin doses of biotin (>5 mg/day) taken within 8 hours of drawing blood sample can interfere with this immunoassay test. Agustin Graves MD CHEMISTRY ORDERABLES Final Resu lt Performing Organization Address [facility] Co de Phone Number [facility] [address], [place] [address] * INTRAOP AIRWAY PLACEMENT (07/17/2018 10:17 AM EDT) Narrative [facility] - 07/17/2018 10:17 AM EDT Lis Peasron CRNA 07/17/2018 10:17 AM Intraop Airway Placement: Date/Time: 07/17/2018 10:00 AM Airway type: Nasal cannula salter Procedure Note Lis Pearson CRNA - 07/17/2018 10:17 AM EDT Intraop Airway Placement: Date/Time: 07/17/2018 10:00 AM Airway type: Nasal cannula salter Barber Lindsey MD [place] ANESTHESIA Final Resu lt Performing Organization Address [facility] Co de Phone Number [address] [address] * GMED EGD (07/17/2018 9:45 AM EDT) 07/17/2018 9:45 AM EDT Impressions [facility] - 07/26/2018 1:27 PM EDT Normal stomach. [...] ited Result - Final Performing Organization Address City/[facility]/ZIP Co de Phone Number [facility] [address] [place] [address] * TESTOSTERONE FREE, ADULT MALE -REF LAB (07/04/2018 1:31 PM EDT) Free T Calc 66 47 - 244 pg/mL 07/06/2018 12:20 PM EDT [facility] Comment: INTERPRETIVE INFORMATION: Testosterone, Free Tereso Stage IV 35 - 169 pg/mL Tereso Stage V 41 - 239 pg/mL The concentration of Free Testosterone is derived from a mathematical expression based on the constant for the binding of testosterone to Sex Hormone Binding Globulin (SHBG). Access complete set of age- and/or gender-specific reference intervals for this test in the [facility] Test [facility] ([facility]). Performed by [facility], [address] [place] [address] [email or web address], Lencho Keys MD, Lab. Director Blood Venipuncture / Unknown 07/04/2018 1:31 PM EDT 07/04/2018 1:31 PM EDT us Barbara Cole APRN CHEMISTRY ORDERABLES Final Result Performing Organization Address City/[facility]/ZIP Co de Phone Number [facility] [address] [place] [address] * TSH REFLEX (05/27/2018 2:42 PM EDT) Only the most recent of2 resultswithin the time period is included. TSH Reflex 2.250 0.270 - 4.200 mcIU/mL 05/27/2018 8:53 PM EDT [facility] [employer] Blood Venipuncture / Unknown 05/27/2018 2:42 PM EDT 05/27/2018 2:42 PM EDT Narrative PREFERRED [facility] - 05/27/2018 8:53 PM EDT Ingestion of joaquin doses of biotin (>5 mg/day) taken within 8 hours of drawing blood sample can interfere with this immunoassay test. us Vernon Salinas MD CHEMISTRY ORDERABLES Fi nal Result PREFERRED [facility] [address] [facility], [place] [address] * IR 2 LEVEL BILATERAL MEDIAL BRANCH [...] see Op Note in Epic. us Chelita Bloom [place] HANNAH IMG IR ORDERABLES Final Result * HCV QUANT W/RFLX TO GENOTYPE -REF LAB (12/01/2017 9:03 AM EDT) HCV Qnt by NAAT (IU/mL) Not Detected IU/mL 2017 7:16 AM EDT [employer] HCV Qnt by NAAT (log IU/mL) Not Detected log IU/mL 2017 7:16 AM EDT [employer] Comment: Hepatitis C Virus (HCV) [...] and Cellular Tissue-Based Products (HCT/P). Performed by [facility], [address] [place] [address] [email or web address], Lencho Keys MD, Lab. Director Blood VENOUS BLOOD / Unknown Venipuncture / Unknown 12/01/2017 9:03 AM EDT 12/01/2017 9:03 AM EDT Vernon Salinas MD IMMUNOLOGY ORDERABLES F inal Result Performing Organization Address [facility] Co de Phone Number [facility] [address] [place] [address] * (ABNORMAL) HEPATITIS C ANTIBODY - SCREENING (11/25/2017 9:25 AM EDT) Pathologist [facility] Hep C Ab Reactive( A) Non-React carmine 11/26/2017 10:31 AM EDT [email or web address] Comment:Weakly Reactive. Pre sumptive evidence of antibodies to HCV, however nonspecific (false positive) results may occur in this range. Supplemental confirmatory testing of a follow-up specimen is recommended. The recommended follow-up test is HCV RNA Quantitative PCR with reflex to genotyping. Blood Venipuncture / Unknown 11/25/2017 9:25 AM EDT 11/25/2017 9:25 AM EDT Vernon Salinas MD HEMATOLOGY ORDERABLES F inal Result [email or web address] [address] [place] [address] , [place] [address] * INSULIN ANTIBODY -REF LAB (10/04/2017 10:25 AM EDT) Pathologist [facility] Insulin Antibody <0.4 0.0 - 0.4 U/mL 10/08/2017 9:56 AM EDT [facility] Comment: INTERPRETIVE INFORMATION: Insulin Antibody A value [...] the context of clinical symptoms. Performed by [facility], [address] [place] [address] [email or web address], Lencho Keys MD, Lab. Director Blood VENOUS BLOOD / Unknown Venipuncture / Unknown 10/04/2017 10:25 AM EDT 10/04/2017 10:25 AM EDT Vernon Salinas MD CHEMISTRY ORDERABLES Fi nal Result Performing Organization Address [facility] Co de Phone Number [facility] [address] [place] [address] * INSULIN FASTING (10/04/2017 10:25 AM EDT) [facility] Insulin Fasting 17.33 2.60 - 24.90 mcIU/mL 10/04/2017 4:00 PM EDT PREFERRED [facility] Blood VENOUS BLOOD / Unknown Venipuncture / Unknown 10/04/2017 10:25 AM EDT 10/04/2017 10:25 AM EDT Narrative PREFERRED [facility] - 10/04/2017 4:00 PM EDT Ingestion of joaquin doses of biotin (>5 mg/day) taken within 8 hours of drawing blood sample can interfere with this immunoassay test. Vernon Salinas MD CHEMISTRY ORDERABLES Fi nal Result Performing Organization Address [facility] Co de Phone Number [email or web address] [address] [place] [address] , [place] [address] * IR ULTRASOUND GUIDED VASCULAR ACCESS (09/24/2017 [...] CULTURE (NO STAIN) 09/27/2017 4:00 PM EDT [email or web address] Blood VENOUS BLOOD / Unknown Venipuncture / Unknown 09/22/2017 10:17 AM EDT 09/22/2017 10:50 AM EDT Marlon Yarbrough MD MICROBIOLOGY - GENERAL ORDERA BLES Final Result [email or web address] [address] [facility] , [place] [address] * XR ABDOMEN AP (09/20/2017 [...] Dixon MD CHEMISTRY ORDERABLES Amie l Result [facility] [address] [place] [address] * REPEAT LACTIC ACID (09/20/2017 6:49 AM EDT) Lactic Acid 1.5 0.5 - 1.9 mmol/L 09/20/2017 7:15 AM EDT [facility] Blood VENOUS BLOOD / Unknown Venipuncture / Unknown 09/20/2017 6:49 AM EDT 09/20/2017 6:55 AM EDT Jasper Dixon MD CHEMISTRY ORDERABLES Amie l Result Performing Organization Address City/[facility]/ZIP Co de Phone Number [facility] [address] [place] [address] * EXTRA BAER URINE CX (09/20/2017 4:19 AM EDT) Urine URINE SPECIMEN COLLECTION, CLEAN CATCH / Unknown 09/20/2017 4:19 AM EDT 09/20/2017 4:22 AM EDT Jasper Dixon MD MICROBIOLOGY - GENERAL OR DERABLES Final Result Performing Organization Address [facility] Co de Phone Number [facility] [address] [place] [address] * (ABNORMAL) BLOOD CULTURE NUCLEIC ACID (GRAM NEG) (09/20/2017 4:12 AM EDT) Pathologist [facility] Bl Cx Nucleic Acid Test POSITIVE for Enterobacter species by Verigene nucleic acid test. Conventional identification and antimicrobial susceptibility testing to follow.(A) Negative 09/21/2017 6:13 AM EDT [facility] [employer] Blood VENOUS BLOOD / Unknown Venipuncture / Unknown 09/20/2017 4:12 AM EDT 09/20/2017 4:20 AM EDT Jasper Dixon MD MICROBIOLOGY - GENERAL OR DERABLES Final Result Performing Organization Address City/[facility] Co de Phone Number [facility] [employer] [address] [facility] , [place] [address] * POCT HEMOCCULT 1-3 CARDS (09/19/2016 11:59 [...] resultswithin the time period is included. Pathologist [facility] LDL Calculated 48 <=100 mg/dL [facility] Comment: < 100 Optimal 100 - 129 Near or above optimal 130 - 159 Borderline High 160 - 189 High >= 190 Very High Blood specimen (specimen) 07/27/2016 3:35 PM EDT 07/27/2016 7:35 PM EDT us Angelina Zaldivar MD CHEMISTRY ORDERABLES Amie l Result [facility] [address] [place] [address] * T3 FREE (09/18/2015 11:42 AM EDT) Pathologist [facility] T3 Free 3.40 2.00 - 4.40 pg/mL [facility] Blood specimen (specimen) UPPER LIMB STRUCTURE / Unknown 09/18/2015 11:42 AM EDT 09/18/2015 1:41 PM EDT us Daniela L Garcia PIPING DRAFTER CHEMISTRY ORDERABLES Final R esult Performing Organization Address [facility] [[email or web address]] de Phone Number [facility] [address] [place] [address] * (ABNORMAL) POCT GLUCOSE (09/01/2013 3:44 PM [...] ORDERABLES F inal Result Performing Organization Address [facility] de Phone Number SEP OFFICE * SCANNED [...] included. K-WB 4.2 3.5 - 5.0 mEq/L [facility] Blood specimen (specimen) UPPER LIMB STRUCTURE / Unknown 08/27/2013 8:43 PM EDT 08/27/2013 8:48 PM EDT Samuel Jo MD CHEMISTRY ORDERABLES F inal Result Performing Organization Address [facility] Co de Phone Number [facility] [address] [place] [address] * (ABNORMAL) DIFFERENTIAL (08/27/2013 4:30 AM EDT) Only the most recent of4 resultswithin the time period is included. Pathologist [facility] Neut Percent 75.1 % [facility] Lymph Percent 13.9 % [facility] [place] Percent 10.5 % SE LAB Eos Percent 0.1 % SE LAB Baso Percent 0.4 % SE LAB Neut# 9.4(H) 1.8 - 7.7 x10(3)/mcL SE LAB Lymph# 1.7 0.6 - 4.8 x10(3)/[facility] SE LAB [place]# 1.3 0.0 - 1.3 x10(3)/[facility] LAB Eos# 0.0 0.0 - 0.5 x10(3)/[facility] LAB Baso# 0.0 0.0 - 0.2 x10(3)/[facility] LAB Blood specimen (specimen) 08/27/2013 4:30 AM EDT 08/27/2013 4:32 AM EDT us Samuel Jo MD HEMATOLOGY ORDERABLES Final Result Performing Organization Address City/[facility]/ZIP Co de Phone Number [facility] [address] [place] [address] * O2 SAT - MIXED VENOUS (08/26/2013 4:45 AM EDT) Only the most recent of2 resultswithin the time period is included. Pathologist [facility] O2 Sat - Mixed Venous 73 % [facility] Blood specimen (specimen) 08/26/2013 4:45 AM EDT 08/26/2013 4:52 AM EDT Samuel Jo MD CHEMISTRY ORDERABLES F inal Result Performing Organization Address City/[facility]/ZIP Co de Phone Number [facility] [address] [place] [address] * (ABNORMAL) BLOOD GAS ARTERIAL (08/26/2013 3:15 AM EDT) Only the most recent of9 resultswithin the time period is included. Pathologist [facility] pH 7.350(L) 7.370 - 7.440 [facility] pCO2 43 32 - 45 mmHg [facility] pO2 60(L) 80 - 95 mmHg [facility] HCO3 24 20 - 29 mmol/L [facility] TCO2 25 21 - 30 mmol/L [facility] Base Excess -2.0 -2.8 - 2.3 mEq/L [facility] O2 Sat 96 95 - 97 % [facility] Inspired O2 4L [facility] Specimen Type Arterial [facility] Blood specimen (specimen) UPPER LIMB STRUCTURE / Unknown 08/26/2013 3:15 AM EDT 08/26/2013 3:24 AM EDT Samuel Jo MD CHEMISTRY ORDERABLES F inal Result Performing Organization Address [facility] Co de Phone Number [facility] [address] [place] [address] * (ABNORMAL) HEMOGLOBIN AND HEMATOCRIT (08/25/2013 4:40 PM EDT) Pathologist [facility] Hgb 11.0(L) 13.5 - 17.1 gm/dL [facility] Hct 31.8(L) 38.9 - 51.6 % [facility] Blood specimen (specimen) UPPER LIMB STRUCTURE / Unknown 08/25/2013 4:40 PM EDT 08/25/2013 4:42 PM EDT Narrative [facility] - 08/25/2013 4:47 PM EDT 4 hours after admission to [facility] Samuel Jo MD HEMATOLOGY ORDERABLES Final Result Performing Organization Address City/[facility] Co de Phone Number [facility] [address] [place] [address] * (ABNORMAL) PARTIAL THROMBOPLASTIN TIME (08/25/2013 1:35 PM EDT) Pathologist [facility] PTT 69.1(H) 24.4 - 35.0 second(s) [facility] Comment: Therapeutic range for direct thrombin [...] PM EDT 08/25/2013 1:35 PM EDT Narrative [facility] - 08/25/2013 2:17 PM EDT On admission to [facility] Samuel Jo MD HEMATOLOGY ORDERABLES Final Result Performing Organization Address [facility] Co de Phone Number [facility] [address] [place] [address] * FIBRINOGEN (08/25/2013 1:35 PM EDT) Fibrinogen 214 196 - 447 mg/dL [facility] Blood specimen (specimen) 08/25/2013 1:35 PM EDT 08/25/2013 1:35 PM EDT Narrative [facility] - 08/25/2013 2:06 PM EDT On admission to [facility] us Samuel Jo MD HEMATOLOGY ORDERABLES Final Result Performing Organization Address [facility] de Phone Number [facility] [address] [place] [address] * HEPARIN ANTI-XA, UNF (08/25/2013 5:05 AM EDT) Only the most recent of5 resultswithin the time period is included. Heparin Level UNF 0.37 0.30 - 0.70 IU/mL [facility] Comment: The therapeutic range for heparinized patients monitored by the Heparin Lvl UF is 0.30-0.70 IU/mL. Blood specimen (specimen) 08/25/2013 5:05 AM EDT 08/25/2013 5:48 AM EDT Narrative [facility] - 08/25/2013 6:09 AM EDT Heparin anti-Xa unfractionated level every day while on heparin us Tod Wolf MD HEMATOLOGY ORDERABLES Final Re sult Performing Organization Address [facility] Co de Phone Number [facility] [address] [place] [address] * STAPHYLOCOCCUS AUREUS SCREEN (08/24/2013 1:37 PM EDT) Pathologist [facility] Final Growth of Staphylococcus aureus identified as methicillin sensitive. [facility] Specimen from nose (specimen) 08/24/2013 1:37 PM EDT 08/24/2013 2:13 PM EDT us Samuel Jo MD MICROBIOLOGY - GENERAL ORDERABLES Final Result [facility] [address] [place] [address] * ABORH (08/24/2013 1:06 PM EDT) Pathologist [facility] ABORh Int A NEG [facility] Blood specimen (specimen) 08/24/2013 1:06 PM EDT 08/24/2013 1:30 PM EDT Narrative [facility] - 08/24/2013 2:50 PM EDT Only if redo patient us Samuel Jo MD BLOOD BANK ORDERABLES Final Result Performing Organization Address City/[facility]/ZIP Co de Phone Number [facility] [address] [place] [address] * ANTIBODY SCREEN IGG (08/24/2013 1:06 PM EDT) Pathologist [facility] ABSC IgG Int Negative [facility] Blood specimen (specimen) 08/24/2013 1:06 PM EDT 08/24/2013 1:30 PM EDT Narrative [facility] - 08/24/2013 2:48 PM EDT Only if redo patient us Samuel Jo MD BLOOD BANK ORDERABLES Final Result [facility] [address] [place] [address] * UPSTREAM BIOMANUFACTURING TECHNICIAN PROCEDURE LOG (08/22/2013 12:00 AM EDT) Jeffy Fuentes MD [facility] CARDIAC CATH ORDERABLES Amie l Result [facility] [address] [place] [address] * SCANNED OR REPORT (10/19/2009 12:00 AM EDT) Narrative 10/19/2009 3:51 PM EDT Ordered by an unspecified provider. Transcriptions Unknown, U - 10/19/2009 3:36 PM EDT us U Unknown PROCEDURE/MINOR SURGICAL ORDERAB LES Final Result * CT ABD/PELVIS SHEET IRONWORKER GC (02/07/2009 12:59 AM EST) Anatomical Region [...] is no free fluid or free air. Omr-yueqeter-tzbylirl images of the liver and spleen are unremarkable. Impression- No acute findings of the abdomen or pelvis. Food Management Aide- MARQUITA Garcia Physician- SHELL YUSUF MD Released Date Time- 02/07/09 1228 Procedure Note Shell Yusuf - 05/21/2009 CT abdomen and pelvis. History- Left flank pain. Findings- The kidneys are normal in appearance, without hydronephrosis. No renal stones are present. No ureteral stones are seen. Visualized portions of the gastrointestinal tract are within normal limits. There is no free fluid or free air. Nac-xijodtwx-rjkoihvb images of the liver and spleen are unremarkable. Impression- No acute findings of the abdomen or pelvis. Food Management Aide- MARQUITA Garcia Physician- SHELL YUSUF MD Released Date Time- 02/07/091227 Jarek Pack MD [facility] RAD HISTORICAL F inal [...] is within normal limits. Impression- Unremarkable KUB. Food Management Aide- MARQUITA Garcia Physician- SUHA JACOBS MD Released Date Time- 02/07/091224 Procedure Suha Solis III - 05/21/2009 KUB of the abdomen. History- Left flank pain. Findings- There are no obvious calcifications. The study is limited secondary to the patient's large body habitus. The bowel gas pattern is within normal limits. Impression- Unremarkable KUB. Food Management Aideemile Garcia Physician- SUHA JACOBS MD Released Date Time- 02/07/091224 Jarek Pack MD [facility] RAD HISTORICAL F inal Result * [...] Date Time- 08/26/07 0543 Timothy Carrion MD [facility] ANITA MATTEO Holloway arely Result Visit Diagnoses Diagnosis Start Date DM [...] Chest pain, unspecified 08/22/2013 Coronary atherosclerosis of northway coronary artery 08/25/2013 CAD (coronary artery disease) Coronary atherosclerosis of unspecified type of vessel, northway or graft 08/23/2013 Chest pain Chest pain, [...] Coronary atherosclerosis of unspecified type of vessel, northway or graft 09/01/2013 HTN (hypertension) Unspecified essential [...] Coronary atherosclerosis of unspecified type of vessel, northway or graft 09/16/2013 HTN (hypertension) Unspecified essential [...] Coronary atherosclerosis of unspecified type of vessel, northway or graft 04/18/2014 Vitamin D deficiency Unspecified [...] Coronary atherosclerosis of unspecified type of vessel, northway or graft 09/22/2014 Chest pain Chest pain, [...] B-complex deficiencies 10/12/2015 Hypertension associated with diabetes ([facility]) Type II or unspecified type diabetes mellitus with other specified manifestations, not stated as uncontrolled 10/12/2015 Hyperlipidemia associated with type 2 diabetes mellitus (HCC) 10/12/2015 Type 2 diabetes mellitus without complication, without long-term current use of insulin ([facility]) 12/27/2015 Type 2 diabetes mellitus with complication, without long-term current use of insulin ([facility]) 12/27/2015 Type 2 diabetes mellitus with complication ([facility]) 03/30/2016 Back pain with left-sided radiculopathy 04/04/2016 Controlled type 2 diabetes mellitus without complication, without long-term current use of insulin ([facility]) 04/04/2016 Type 2 diabetes mellitus without complication, without long-term current use of insulin ([facility]) 04/04/2016 Hypertension associated with diabetes ([facility]) Type II or unspecified type diabetes [...] complication, without long-term current use of insulin ([facility]) 07/27/2016 Hyperlipidemia associated with type 2 diabetes mellitus ([facility]) 07/27/2016 Chest discomfort Other chest pain 07/27/2016 [...] without complication, unspecified fci insulin use status 12/20/2016 Candidiasis Candidiasis of unspecified site 04/03/2017 Type 2 diabetes mellitus without complication, unspecified intermediate frame tender insulin use status 06/06/2017 Ischemic heart disease [...] without complication, unspecified whether fci insulin use 10/06/2017 Controlled type 2 diabetes [...] without complication, unspecified whether fci insulin use 11/25/2017 Type 2 diabetes mellitus without complication, unspecified whether fci insulin use 11/26/2017 Hepatitis C antibody positive [...] Uncontrolled type 2 diabetes mellitus with hyperglycemia ([facility]) 04/23/2018 Candidal balanitis Candidiasis of other urogenital sites 04/23/2018 Type 2 diabetes mellitus without complication, without long-term current use of insulin ([facility]) 04/29/2018 Obesity, Class II, BMI 35-39.9 Obesity, [...] complication, without long-term current use of insulin ([facility]) 05/20/2018 Type 2 diabetes mellitus without complication, without long-term current use of insulin ([facility]) 05/27/2018 Benign non-nodular prostatic hyperplasia with lower [...] 2 diabetes mellitus without complication, unspecified whether intermediate frame tender insulin use 05/28/2018 Obesity, Class II, BMI [...] Obesity, Class III, BMI 40-49.9 (morbid obesity) ([facility]) Morbid obesity 07/08/2018 Chronic pain syndrome 07/11/2018 [...] D deficiency 07/29/2018 Coronary artery disease involving northway heart without angina pectoris, unspecified vessel or [...] without complication, unspecified whether fci insulin use 10/14/2018 Essential hypertension Unspecified essential hypertension 10/14/2018 Coronary artery disease involving northway heart without angina pectoris, unspecified vessel or [...] 2 diabetes mellitus without complication, unspecified whether intermediate frame tender insulin use 01/20/2019 Obesity, Class I, BMI [...] disease, unspecified 02/20/2019 Coronary artery disease involving northway heart without angina pectoris, unspecified vessel or [...] disease, unspecified 03/14/2019 Coronary artery disease involving northway heart without angina pectoris, unspecified vessel or [...] 2 diabetes mellitus without complication, unspecified whether intermediate frame tender insulin use 10/13/2019 Dyslipidemia associated with type [...] disease, unspecified 11/06/2019 Coronary artery disease involving northway heart without angina pectoris, unspecified vessel or [...] in head and neck 12/15/2019 Hx of fci use of blood thinners Encounter for long-term [...] disease, unspecified 06/23/2020 Coronary artery disease involving northway heart without angina pectoris, unspecified vessel or lesion type 06/23/2020 S/P CABG x 3 Postsurgical aortocoronary bypass status 06/23/2020 Ventricular bigeminy Other specified cardiac dysrhythmias 06/23/2020 Other secondary osteoarthritis of right shoulder 07/13/2020 Complete tear of right rotator cuff, unspecified whether traumatic 07/13/2020 Coronary artery disease involving northway heart without angina pectoris, unspecified vessel or [...] 2 diabetes mellitus without complication, unspecified whether intermediate frame tender insulin use 02/14/2021 Abscess Cellulitis and abscess [...] Other psoriasis 03/06/2022 Coronary artery disease involving northway heart without angina pectoris, unspecified vessel or lesion type 03/07/2022 Mixed hyperlipidemia 03/07/2022 Chest pain, unspecified type 03/07/2022 Ischemic heart disease Chronic ischemic heart disease, unspecified 03/07/2022 S/P CABG x 3 Postsurgical aortocoronary bypass status 03/07/2022 Atherosclerotic heart disease of northway coronary artery with other forms of angina [...] in adult 03/20/2022 Atherosclerotic heart disease of northway coronary artery with other forms of angina [...] pain Cervicalgia 04/10/2022 Coronary artery disease involving northway heart without angina pectoris, unspecified vessel or [...] both knees 05/19/2022 Atherosclerotic heart disease of northway coronary artery with other forms of angina [...] 2 (HCC) 08/11/2022 Coronary artery disease involving northway heart without angina pectoris, unspecified vessel or lesion type 08/14/2022 Mixed hyperlipidemia 08/14/2022 Ischemic heart disease Chronic ischemic heart disease, unspecified 08/14/2022 S/P CABG x 3 Postsurgical aortocoronary bypass status 08/14/2022 Hematoma of groin, initial encounter 08/14/2022 Other specified complications of surgical and medical care, not elsewhere classified, initial encounter 08/14/2022 Coronary artery disease involving northway heart without angina pectoris, unspecified vessel or [...] Mixed hyperlipidemia 09/23/2022 Coronary artery disease involving northway heart without angina pectoris, unspecified vessel or [...] hyperglycemia (HCC) 09/27/2022 Coronary artery disease involving northway heart without angina pectoris, unspecified vessel or [...] hyperglycemia (HCC) 11/02/2022 Coronary artery disease involving northway heart without angina pectoris, unspecified vessel or [...] of care 03/16/2023 Coronary artery disease involving northway heart without angina pectoris, unspecified vessel or [...] CKD (HCC) 04/11/2023 Coronary artery disease involving northway heart without angina pectoris, unspecified vessel or [...] and sinuses 06/20/2023 Coronary artery disease involving northway heart without angina pectoris, unspecified vessel or lesion type 06/21/2023 Mixed hyperlipidemia 06/21/2023 Ischemic heart disease Chronic ischemic heart disease, unspecified 06/21/2023 Congestive heart failure, unspecified HF chronicity, unspecified heart failure type ([facility]) 06/21/2023 S/P CABG x 3 Postsurgical [...] residual deficits 07/16/2023 Coronary artery disease involving northway heart without angina pectoris, unspecified vessel or [...] without myelopathy 09/18/2023 Coronary artery disease involving northway heart without angina pectoris, unspecified vessel or lesion type 09/20/2023 S/P CABG x 3 Postsurgical aortocoronary bypass status 09/20/2023 SOB (shortness of breath) Shortness of breath 09/20/2023 Chest pain, unspecified type 09/20/2023 Dyslipidemia associated with type 2 diabetes mellitus (HCC) Type II or unspecified type diabetes mellitus with other specified manifestations, not stated as uncontrolled 09/20/2023 Coronary artery disease involving northway heart without angina pectoris, unspecified vessel or [...] NYHA class I, acute on chronic, combined ([facility]) 09/20/2023 Uncontrolled type 2 diabetes mellitus with hyperglycemia ([facility]) 09/23/2023 Dyslipidemia associated with type 2 diabetes mellitus ([facility]) Type II or unspecified type diabetes mellitus with other specified manifestations, not stated as uncontrolled 09/29/2023 Coronary artery disease involving northway heart without angina pectoris, unspecified vessel or [...] Coronary atherosclerosis of unspecified type of vessel, northway or graft 10/01/2023 Other forms of angina pectoris 10/01/2023 SOB (shortness of breath) Shortness of breath 10/01/2023 ASHD (arteriosclerotic heart disease) Coronary atherosclerosis of unspecified type of vessel, northway or graft 10/01/2023 Coronary artery disease involving northway heart without angina pectoris, unspecified vessel or lesion type 10/17/2023 Other forms of angina pectoris 10/17/2023 Sore throat Acute pharyngitis 10/23/2023 Runny nose Other diseases of nasal cavity and sinuses 10/23/2023 Uncontrolled type 2 diabetes mellitus with hyperglycemia ([facility]) 10/24/2023 Gastroesophageal reflux disease with esophagitis, [...] Coronary atherosclerosis of unspecified type of vessel, northway or graft 11/06/2023 Dyslipidemia associated with type [...] type 2 diabetes mellitus with hyperglycemia (HCC) 12/12/2023 Gastroesophageal reflux disease with esophagitis, unspecified whether hemorrhage 12/12/2023 CHF (congestive heart failure), NYHA class I, acute on chronic, combined ([facility]) 12/12/2023 Uncontrolled type 2 diabetes mellitus with hyperglycemia ([facility]) 12/19/2023 Stage 3 chronic kidney disease, unspecified whether stage 3a or 3b CKD ([facility]) 12/19/2023 Numbness and tingling of left [...] failure 12/31/2023 Stage 3a chronic kidney disease (HCC) 01/01/2024 Vitamin D deficiency Unspecified vitamin D deficiency 01/01/2024 CHF (congestive heart failure), NYHA class I, acute on chronic, combined (HCC) 12/31/2023 Uncontrolled type 2 diabetes mellitus with hyperglycemia (HCC) 01/04/2024 CHF (congestive heart failure), NYHA class I, acute on chronic, combined (HCC) 01/04/2024 Acute on chronic systolic congestive heart failure (HCC) Acute on chronic systolic heart failure 01/04/2024 Stage 3 chronic kidney disease, unspecified whether stage 3a or 3b CKD ([facility]) 01/04/2024 Stage 3a chronic kidney disease (HCC) 01/04/2024 Chronic kidney disease-mineral and bone disorder 01/04/2024 Uncontrolled type 2 diabetes mellitus with hyperglycemia (HCC) 01/08/2024 CHF (congestive heart failure), NYHA class I, acute on chronic, combined (HCC) 01/08/2024 Seasonal allergic rhinitis due to pollen 01/14/2024 CHF (congestive heart failure), NYHA class I, acute on chronic, combined (HCC) 01/14/2024 Acute bronchitis, unspecified organism 01/14/2024 Uncontrolled type 2 diabetes mellitus with hyperglycemia (HCC) 01/14/2024 CHF (congestive heart failure), NYHA class I, acute on chronic, combined (HCC) 01/14/2024 CHF (congestive heart failure), NYHA class I, acute on chronic, combined (HCC) 01/31/2024 CHF (congestive heart failure), NYHA class I, acute on chronic, combined (HCC) 02/01/2024 CHF (congestive heart failure), NYHA class I, acute on chronic, combined (HCC) 02/11/2024 Fluid retention in legs Edema 02/13/2024 [...] I, acute on chronic, combined (HCC) 02/13/2024 Psoriasis of scalp Other psoriasis 03/01/2024 Uncontrolled type 2 diabetes mellitus with hyperglycemia (HCC) 03/17/2024 CHF (congestive heart failure), NYHA class I, acute on chronic, combined (HCC) 03/17/2024 Enrolled in chronic care management 03/17/2024 CHF (congestive heart failure), NYHA class I, acute on chronic, combined ([facility]) 04/06/2024 Uncontrolled type 2 diabetes mellitus with hyperglycemia ([facility]) 04/06/2024 Acute on chronic systolic congestive heart failure ([facility]) Acute on chronic systolic heart failure 04/08/2024 Class 2 severe obesity due to excess calories with serious comorbidity and body mass index (BMI) of 35.0 to 35.9 in adult 04/08/2024 Stage 3b chronic kidney disease ([facility]) 04/08/2024 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, unspecified whether intermediate frame tender insulin use ([facility]) 04/08/2024 Tinea corporis Dermatophytosis of the body 04/08/2024 Psoriasis of scalp Other psoriasis 05/01/2024 Uncontrolled type 2 diabetes mellitus with hyperglycemia ([facility]) 05/05/2024 CHF (congestive heart failure), NYHA class I, acute on chronic, combined ([facility]) 05/05/2024 Enrolled in chronic care management 05/05/2024 ASHD (arteriosclerotic heart disease) Coronary atherosclerosis of unspecified type of vessel, northway or graft 05/06/2024 Dyslipidemia associated with type 2 diabetes mellitus ([facility]) Type II or unspecified type diabetes mellitus with other specified manifestations, not stated as uncontrolled 05/06/2024 S/P CABG x 3 Postsurgical aortocoronary bypass status 05/06/2024 Psoriasis of scalp Other psoriasis 05/16/2024 Uncontrolled type 2 diabetes mellitus with hyperglycemia ([facility]) 05/20/2024 Pure hypercholesterolemia 05/20/2024 Seasonal allergic rhinitis due to pollen 05/20/2024 Acute bronchitis, unspecified organism 05/20/2024 Facial rash 05/20/2024 Uncontrolled type 2 diabetes mellitus with hyperglycemia ([facility]) 05/28/2024 CHF (congestive heart failure), NYHA class I, acute on chronic, combined ([facility]) 05/28/2024 Enrolled in chronic care management 05/28/2024 Uncontrolled type 2 diabetes mellitus with hyperglycemia ([facility]) 06/05/2024 CHF (congestive heart failure), NYHA class I, acute on chronic, combined ([facility]) 06/05/2024 Enrolled in chronic care management 06/05/2024 Sore throat Acute pharyngitis 06/11/2024 Runny nose Other diseases of nasal cavity and sinuses 06/11/2024 Acute bacterial sinusitis Acute sinusitis, unspecified 06/16/2024 Essential hypertension Unspecified essential hypertension 06/25/2024 Uncontrolled type 2 diabetes mellitus with hyperglycemia (HCC) 06/26/2024 Gastroesophageal reflux disease with esophagitis, unspecified whether hemorrhage 07/02/2024 Coronary artery disease involving northway heart without angina pectoris, unspecified vessel or [...] and sinuses 09/18/2024 Coronary artery disease involving northway heart without angina pectoris, unspecified vessel or lesion type 09/30/2024 Chest pain, unspecified type 09/30/2024 Coronary artery disease involving northway heart without angina pectoris, unspecified vessel or [...] Coronary atherosclerosis of unspecified type of vessel, northway or graft 08/23/2013 S/P CABG x 3 Postsurgical aortocoronary bypass status 08/23/2013 Postoperative anemia due to acute blood loss Acute posthemorrhagic anemia 08/23/2013 Controlled type 2 diabetes mellitus without complication ([facility]) 09/20/2017 HTN (hypertension) Unspecified essential hypertension 09/20/2017 Hyperlipidemia Other and unspecified hyperlipidemia 09/20/2017 GERD (gastroesophageal reflux disease) Esophageal reflux 09/20/2017 S/P CABG x 3 Postsurgical aortocoronary bypass status 09/20/2017 Ischemic heart disease Chronic ischemic heart disease, unspecified 09/20/2017 CAD (coronary artery disease) Coronary atherosclerosis of unspecified type of vessel, northway or graft 09/20/2017 Acute pyelonephritis Acute pyelonephritis [...] Coronary atherosclerosis of unspecified type of vessel, northway or graft 12/01/2019 Uncontrolled type 2 diabetes [...] Coronary atherosclerosis of unspecified type of vessel, northway or graft 12/31/2023 Goals Goal Patient Goal [...] EDT) No Carlee Rose CMA Care Teams Chemist Physical Relationship Specialty Start Date End Date Carlos A Gross DO [address] [place] [id number] PCP - General Family Medicine 06/15/20 Sapphire Munguia MD [address] [place] [id number] Internal Medicine-Cardiovascular Disease 04/11/22
--- OUTSIDE RECORDS SUMMARY | 2025-02-14 14:48 | XMS_ITS | Clinical Summary ---
Author Organization [facility] Address [address] [place], [place] [address] Care Team Providers Care Blood Bank Supervisor Name Role Phone Carlos A Gross DO Primary Care Provider [phone] Allergies Active Allergy Reactions Criticality Noted Date [...] Years) 10/27/202710/10 Lipid Screening Discontinued 11/01/2023 Insurance [facility] MEDIC[facility] Care Teams Blood Bank Supervisor Relationship Specialty Start Date End Date Carlos A Gross DO [address] [place] [phone] PCP - General Family Medicine 02/22/24
--- OUTSIDE RECORDS SUMMARY | 2025-02-14 14:48 | XMS_ITS | Data Portability ---
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 Surgeries None recorded. Imaging US, duplex, abdomen, complete 2024 [facility] (Scheduling), [address], [place], [address], 5 13:51:26 XR, lumbosacral spine, 2 or 3 view 2024 [facility] (X-Ray), [address], [place], [address], 5 10:16:14 electrocard iogram 2024 025 [facility], [address] [place] [address], [address], 16:45:44 Medication Orders Lantus Solostar U-100 Insulin 100 unit/mL (3 mL) subcutaneou s pen 2024 025 [facility], [address], [place], [address], 5 16:29:14 ketoconazol e 2 % topical cream 2024 025 [facility], [address], [place], [address], 5 15:36:22 cephalexin 500 mg capsule 2024 025 [facility] [address] [facility] [place], [address], 05:02:12 Patient TargetsNo targets recorded. Patient Instructions Encounter Date Encounter Id Patient Instructions Last Modified By Organization Details Last Modified Time 10/28/2024 [id number] advance directives: care instructions efryman Not available 10/28/2024 14:22:03 learning about depression efryman Not available 10/28/2024 14:22:02 learning about healthy weight efryman Not available 10/28/2024 14:22:03 body mass index: care instructions efryman Not available 10/28/2024 14:22:02 preventing falls : care instructions efryman Not available 10/28/2024 14:22:03 medicare preventive services guide efryman Not available 10/28/2024 14:22:03 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 METAB OLIC PANEL (14) glucose 486 mg/dL 70-99 above high normal Not Available [facility] ([facility]) [address] [place], [address], 01/21/2025 08:12:50 01/21/20 25 01/21/2025 COMP. METAB OLIC PANEL (14) BUN 30 mg/dL 8-27 above high normal Not Available [facility] ([facility]) [address] [place], [address], 01/21/2025 08:12:50 01/21/20 25 01/21/2025 COMP. METAB OLIC PANEL (14) creatinine 1.79 mg/dL 0.76-1 .27 above high normal Not Available [facility] ([facility]) [address], [place], [address], 01/21/2025 08:12:50 01/21/20 25 01/21/2025 COMP. METAB OLIC PANEL (14) eGFR 40 mL/mi n/1.7 3 >59 below low normal Not Available [facility] ([facility]) [address], [place], [address], 01/21/2025 08:12:50 01/21/20 25 01/21/2025 COMP. METAB OLIC PANEL (14) BUN/creatini ne ratio 17 10-24 normal Not Available [facility] ([facility]) [address], [place], [address], 01/21/2025 08:12:50 01/21/20 25 01/21/2025 COMP. METAB OLIC PANEL (14) sodium 131 mmol/ L 134-14 4 below low normal Not Available [facility] ([facility]) [address], [place], [address], 01/21/2025 08:12:50 01/21/20 25 01/21/2025 COMP. METAB OLIC PANEL (14) potassium 5.5 mmol/ L 3.5-5. 2 above high normal Not Available [facility] ([facility]) [address] [place], [address], 01/21/2025 08:12:50 01/21/20 25 01/21/2025 COMP. METAB OLIC PANEL (14) chloride 97 mmol/ L 96-106 normal Not Available [facility] ([email or web address]) [address] [place], [address], 01/21/2025 08:12:50 01/21/20 25 01/21/2025 COMP. METAB OLIC PANEL (14) carbon dioxide, total 19 mmol/ L 20-29 below low normal Not Available [facility] ([email or web address]) [address] [place], [address], 01/21/2025 08:12:50 01/21/20 25 01/21/2025 COMP. METAB OLIC PANEL (14) calcium 9.6 mg/dL 8.6-10 .2 normal Not Available [facility] ([facility]) [address] [place], [address], 01/21/2025 08:12:50 01/21/20 25 01/21/2025 COMP. METAB OLIC PANEL (14) protein, total 5.9 g/dL 6.0-8. 5 below low normal Not Available [facility] ([facility]) [address] [place], [address], 01/21/2025 08:12:50 01/21/20 25 01/21/2025 COMP. METAB OLIC PANEL (14) albumin 4.1 g/dL 3.8-4. 8 normal Not Available [facility] ([facility]) [address] [place], [address], 01/21/2025 08:12:50 01/21/20 25 01/21/2025 COMP. METAB OLIC PANEL (14) globulin, total 1.8 g/dL 1.5-4. 5 Not Available [facility] ([facility]) [address] [place], [address], 01/21/2025 08:12:50 01/21/20 25 01/21/2025 COMP. METAB OLIC PANEL (14) bilirubin, total 0.4 mg/dL 0.0-1. 2 normal Not Available [facility] ([facility]) [address] [place], [address], 01/21/2025 08:12:50 01/21/20 25 01/21/2025 COMP. METAB OLIC PANEL (14) alkaline phosphatase 110 IU/L 47-123 normal Not Available [facility]) [address] [place], [address], 01/21/2025 08:12:50 01/21/20 25 01/21/2025 COMP. METAB OLIC PANEL (14) AST (SGOT) 11 IU/L 0-40 normal Not Available [facility] ([facility]) [address] [place], [address], 01/21/2025 08:12:50 01/21/20 25 01/21/2025 COMP. METAB OLIC PANEL (14) ALT (SGPT) 15 IU/L 0-44 normal Not Available [facility] ([facility]) [address] [place], [address], 01/21/2025 08:12:50 01/21/20 25 01/21/2025 LEONIE+L IPASE amylase 23 U/L 31-110 below low normal Not Available [facility] ([facility]) [address] [place], [address], 01/21/2025 08:12:50 01/21/20 25 01/21/2025 LEONIE+L IPASE lipase 42 U/L 13-78 normal Not Available [facility] ([facility]) [address] [place], [address], 01/21/2025 08:12:50 01/21/20 25 01/21/2025 INSUL IN AND C-PEP TIDE, SERUM insulin 24.4 uIU/m L 2.6-24 .9 normal Not Available [facility] ([facility]) [address] [place], [address], 01/21/2025 08:12:50 01/21/20 25 01/21/2025 INSUL IN AND C-PEP TIDE, SERUM C-peptide, serum 9.1 NG/mL 1.1-4. 4 above high normal C-Pep tide refer ence inter anish is for fasti ng patie nts. Not Available [facility] ([facility]) [address] [place], [address], 01/21/2025 08:12:50 02/13/20 25 02/13/2025 COMP. METAB OLIC PANEL (14) glucose 505 mg/dL 70-99 panic high Amanda ified by nazanin nolasco kiara sis Not Available [facility] ([facility]) [address] [place], [address], 02/13/2025 11:08:07 02/13/20 25 02/13/2025 COMP. METAB OLIC PANEL (14) BUN 44 mg/dL 8-27 above high normal Not Available [facility] ([facility]) [address] [place], [address], 02/13/2025 11:08:07 02/13/20 25 02/13/2025 COMP. METAB OLIC PANEL (14) creatinine 2.02 mg/dL 0.76-1 .27 above high normal Not Available [facility] ([facility]) [address], [place], [address], 02/13/2025 11:08:07 02/13/20 25 02/13/2025 COMP. METAB OLIC PANEL (14) eGFR 35 mL/mi n/1.7 3 >59 below low normal Not Available [facility] ([facility]) [address] [place], [address], 02/13/2025 11:08:07 02/13/20 25 02/13/2025 COMP. METAB OLIC PANEL (14) BUN/creatini ne ratio 22 10-24 normal Not Available [facility] ([facility]) [address] [place], [address], 02/13/2025 11:08:07 02/13/20 25 02/13/2025 COMP. METAB OLIC PANEL (14) sodium 133 mmol/ L 134-14 4 below low normal Not Available [facility] ([facility]) [address] [place], [address], 02/13/2025 11:08:07 02/13/20 25 02/13/2025 COMP. METAB OLIC PANEL (14) potassium 4.9 mmol/ L 3.5-5. 2 normal Not Available [facility] ([facility]) [address] [place], [address], 02/13/2025 11:08:07 02/13/20 25 02/13/2025 COMP. METAB OLIC PANEL (14) chloride 97 mmol/ L 96-106 normal Not Available [facility] ([facility]) [address] [place], [address], 02/13/2025 11:08:07 02/13/20 25 02/13/2025 COMP. METAB OLIC PANEL (14) carbon dioxide, total 18 mmol/ L 20-29 below low normal Not Available [facility] ([facility]) [address] [place], [address], 02/13/2025 11:08:07 02/13/20 25 02/13/2025 COMP. METAB OLIC PANEL (14) calcium 9.3 mg/dL 8.6-10 .2 normal Not Available [facility] ([facility]) [address] [place], [address], 02/13/2025 11:08:07 02/13/20 25 02/13/2025 COMP. METAB OLIC PANEL (14) protein, total 6.1 g/dL 6.0-8. 5 normal Not Available [facility] ([facility]) [address] [place], [address], 02/13/2025 11:08:07 02/13/20 25 02/13/2025 COMP. METAB OLIC PANEL (14) albumin 3.9 g/dL 3.8-4. 8 normal Not Available [facility] ([facility]) [address] [place], [address], 02/13/2025 11:08:07 02/13/20 25 02/13/2025 COMP. METAB OLIC PANEL (14) globulin, total 2.2 g/dL 1.5-4. 5 Not Available [facility] ([facility]) [address] [place], [address], 02/13/2025 11:08:07 02/13/20 25 02/13/2025 COMP. METAB OLIC PANEL (14) bilirubin, total 0.3 mg/dL 0.0-1. 2 normal Not Available [facility] ([facility]) [address] [place], [address], 02/13/2025 11:08:07 02/13/20 25 02/13/2025 COMP. METAB OLIC PANEL (14) alkaline phosphatase 124 IU/L 47-123 above high normal Not Available [facility] ([facility]) [address] [place], [address], 02/13/2025 11:08:07 02/13/20 25 02/13/2025 COMP. METAB OLIC PANEL (14) AST (SGOT) 12 IU/L 0-40 normal Not Available [facility] ([facility]) [address] [place], [address], 02/13/2025 11:08:07 02/13/20 25 02/13/2025 COMP. METAB OLIC PANEL (14) ALT (SGPT) 14 IU/L 0-44 normal Not Available [facility] ([facility]) [address] [place], [address], 02/13/2025 11:08:07 11/20/19 25 11/19/2024 right heart jose teriz ation inclu ding measu remen t(s) of oxyge n satur ation and cardi ac outpu t (PROC ) No observ ation record ed. [facility] [address], [place], [address], 11/20/2024 08:56:28 12/02/19 25 12/01/2024 XR, chest , 3 view No observ ation record ed. [place] [id number], [place], [address], 12/02/2024 08:19:30 12/02/19 25 12/01/2024 elect rocar diogr am No observ ation record ed. [address], [place], [address], 12/02/2024 08:18:41 01/07/20 25 01/06/2025 elect rocar diogr am No observ ation record ed. [address], [place], [address], 01/06/2025 16:17:14 01/08/20 25 01/07/2025 XR, lumbo sacra l spine , 2 or 3 view No observ ation record ed. [place] [id number], [place], [address], 01/12/2025 11:19:20 01/21/2001/20/2025 MRI, lumba r spine , w/o contr ast No observ ation record ed. [place] [id number], [place], [address], 01/22/2025 08:13:54 01/24/20 25 01/23/2025 US, duple x, abdom en, compl ete No observ ation record ed. [place] [id number], [place], [address], 01/26/2025 14:44:54 Result Notes None recorded. 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 Procedures Surgical History Date Name Laterality Status Provider Name and Address Organization Details Recorded Time 5 Advance Care Planning completed Sandra Brink [facility] 10/28/2024 14:00:58 Functional Status Assessed completed Sandra Brink [facility] 10/28/2024 14:00:58 Imaging Results None recorded. Procedure Notes None recorded. Medical Equipment None Reported. Allergies Allergen ID Allergen Name Allergen Category Reaction Reaction Severity Criticality Documentation Date Start Date Code Code System Note Provider Name and Address Organization Details Recorded Time 323906 insulin aspart, human medicatio n other moderate high 06/30/2024 20999 RxNorm state s any insul in at any dose drops his gluco se too much [place] [facility] 5 08:24:14 018300 naproxen medicatio n abdominal pain moderate high 06/30/2024 7258 RxNorm [place] [facility] 5 08:24:28 977769 cow milk allergeni c extract food,medi cation dyspnea Not available Not available 01/26/20252013 81644 5 RxNorm Can have butte r (had issue with not able to get green beans , chick en noodl e soup, but able to have) Not Available k[facility] - External [facility] - prod 17:31:33 796090 empaglifl ozin medicatio n Not available Not available high 01/26/20252021 46352 53 RxNorm Got a blood infec tion unrec ogniz ed react ion (text : Other (See Comme nts), code: 31975 003) (from exter nal sour e) Not Available [facility] - External Data Service - prod 17:31:33 000943 clindamyc in Not available rash Not available Not available 01/26/20252023 2582 RxNorm Not Available [facility] - External Data Service - prod 17:31:33 642925 Milk (substanc e) food,medi cation Not available Not available Not available 02/12/2025 93365 002 SNOMED Not Available k[facility]sey - External [...] day by oral route. 2024 active lot [id number], exp 10/2025 samples provided today Not Available [...] lable Yovana Pen Needle 32 gauge x 5/32 USE DIRECTED WITH LANTUS active Not Available Not Available No t Available Vitals Date Recorded Body height Body mass index (BMI) Body weight Provider Name and Address Organization Details Last Updated DateTime 10/28/2024 175.26 cm 36.3 kg/m2 319380.42 g Sandra Brink [place] - [facility] 10/28/2024 14:01:10 Date Recorded Body height Body mass index (BMI) Body weight Heart rate Oxygen saturation Respiratory rate Body temperature Systolic And Diastolic Provider Name and Address Organization Details Last Updated DateTime 175.26 cm 36.2 kg/m2 246949. 13 g 82 /min 97 % 18 /min 98 [degF] 128/74 mm[Hg] Isabelle Mccord [place] - [facility] 16:01:05 Date Recorded Body height Body mass index (BMI) Body weight Respiratory rate Provider Name and Address Organization Details Last Updated DateTime 01/06/2025 175.26 cm 35.4 kg/m2 281430.17 g 20 /min Sandra Brink [place] - [facility] 01/06/2025 14:06:46 Date Recorded Body height Body mass index (BMI) Body weight Body temperature Oxygen saturation Respiratory rate Pain severity - 0-10 verbal numeric rating [Score] - Reported Heart rate Systolic And Diastolic Provider Name and Address Organization Details Last Updated DateTime 175.26 cm 35.6 kg/m2 079552. 46 g 98.1 [degF] 97 % 18 /min 0 79 /min 128/60 mm[Hg] Sandra [place] - [facility] 10:55:05 Date Recorded Body height Body mass index (BMI) Body weight Heart rate Respiratory rate Oxygen saturation Body temperature Systolic And Diastolic Provider Name and Address Organization Details Last Updated DateTime 175.26 cm 35.7 kg/m2 783240. 35 g 82 /min 18 /min 97 % 98 [degF] 118/58 mm[Hg] Isabelle Flex [place] - [facility] 14:12:42 Social History Question Answer Notes LastModified by Organizat ion Details LastModified Time Tobacco Smoking Status Never Smoker Sandra [place] - [facility] 06/30/2024 08:32:09 Do You [...] Or The Highest Degree You Have Received? [id number] Information not available 06/30/2024 Have There Been Any Changes To Your Family Or Social Situation? No Information no t available 06/30/2024 What Is The Fluoride Status Of Your Home? Fluoridated Information not available 06/30/2024 Have You Recently Or Are You Planning To Travel To An Area With Zika Virus? 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 [id number] Information not available 06/30/2024 Do you have difficulty concentrating, remembering or making decisions? No Information no t available 06/30/2024 Family History Nothing Reported. Medical History No medical history recorded. Immunizations Vaccine Type Date Status Note Provider Name and Address Organization Details Recorded Time Tdap 10/27/19 18 completed Not Available [facility] 02/12/2025 13:43:34 Influenza, high-dose, trivalent, PF 01/26/20 19 completed Not Available [facility] 02/12/2025 13:43:34 Influenza, split virus, trivalent, preservative 10/29/19 25 cancelled patient objection Darron Nice APRN [address], [place], [address], [place] - [facility] 10/28/2024 14:24:18 zoster recombinant 10/29/19 25 cancelled patient objection Darron Nice APRN [address], [place], [address], [place] - [facility] 10/28/2024 14:24:18 Past Encounters Encounter ID Performer Location Encounter Start Date Encounter Closed Date Diagnosis/Indication Diagnosis SNOMED-CT Code Diagnosis ICD10 Code Diagnosis IMO Codes Diagnosis Note [id number] Darron Nice APRN [address] [address] 06/30/2024 07:58:40 06/30/2024 09:07:31 Body mass index 30+ - obesity 961647526 Z68.35 527011 35.7 Obesity 533022858 E66.9 Type 2 wilton betes mellitus 96662488 E11.9 Z79.4 13662669 Hyperlipidemia 83581394 E78.49 4645808 Arterioscl erosis of coronary artery bypass graft 810700986 I25.810 78897742 Chronic sy stolic heart failure 719404378 I50.22 798714 Family his tory of malignant neoplasm 905679051 Z80.9 013026 [id number] Darron Nice [address] [address] 07/11/2024 12:51:15 07/11/2024 13:42:43 Arteriosclerosis of coronary artery bypass graft 484281686 I25.810 97153935 cardiology sunday at 1 pm Chronic sy stolic heart failure 472230438 I50.22 511446 if symptoms worsen or do not improve return Type 2 wilton betes mellitus 88441269 E11.9 Z79.4 28499584 increase lantus to 30 units dailytrage ntastop glimepirid e [id number] Darron Nice [address] [address] 07/31/2024 11:14:06 07/31/2024 11:57:50 Edema of lower extremity 845946192 R60.0 48958 pt refuses to take anymore diuretics due to going to bathroom freqif symptoms worsen or no improvemen t return or go to ed Dyspnea 445944393 R06.02 11264 spoke with tiffanie- he will look at echo and call back Weight increased 5195048 00 R63.5 R60.9 [id number] refuses diuretics and glp1 [id number] Darron Nice [address] [address] 09/25/2024 14:05:07 09/25/2024 15:15:05 Type 2 diabetes mellitus 61183749 E11.9 Z79.4 45590179 continue meds and diet Chronic low back pain 27 9937231 M54.50 G89.29 60392917 voltaren- allergy to naproxen- nausea [id number] Darron Gonzaleztiny [address] [address] 09/29/2024 15:28:16 09/29/2024 15:51:11 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 8512962859 26410 E11.621 L97.521 23096127 keep area clean and dryclean with soap and waterapply ointmentke ep coveredant ibiotics as orderedif worsen or no improvemen t return [id number] Darron Gonzaleztiny [address] [address] 10/28/2024 13:45:02 10/28/2024 14:22:00 Adult health examination 699857140 Z00.00 Depression screening 171 959115 Z13.31 A depression screening was completed via a standardiz ed screening tool. 5 minutes were spent discussing depression screening results and risk factors. Examinatio n of blood pressure 431876076 Z01.30 labs next visit Diet education 91554061 Z71.3 Counseling 116481014 Z71 .82 Exercise counseling . Patient encouraged to exercise 30 minutes 5 days a week. [facility] ed risk for falls 798970564 Z91.81 STEADI FAST screening score of __0___. Advance care planning 71 6522703 Z71.89 Obese class II 325922964 1 18142 E66.812 Z68.36 2098865 Body mass index 30+ - obesity 930755109 Z68.36 003623 35.7 Influenza vaccination declined 744998785 Z28.21 6518914901 Hepatitis C screening declined 8911538803 5105 Z53.20 0574024436 Screening for osteoporosis 828228142 Z13.820 070087 Chronic ba ck pain greater than three months duration 5734534223 02 M54.9 G89.29 1408333 voltaren- allergy to naproxen- nauseapt states he has tried everything does not want to do anything cause it cant be fixed, it arthritis and he doesn't want to waste time or money [id number] Darron Nice APRN [address] [address] 11/11/2024 15:35:41 11/11/2024 16:21:21 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 2931308243 38039 E11.621 L97.521 14152870 keep area clean and dryclean with soap and waterapply ointmentke ep coveredant ibiotics as orderedif worsen or no improvemen t return [id number] Darron Nice APRN [address] [address] 01/06/2025 13:54:25 01/06/2025 15:16:17 Chest pain 52773818 R07.9 82103385 spoke with tiffanie, see tiffanie tomorrow at 9 amif pain returns or worsen return Chronic low back pain 27 8776592 M54.50 G89.29 31934446 voltaren- allergy to naproxen- 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 Type 2 wilton betes mellitus 27619024 E11.9 Z79.4 52530461 stop metformini ncrease lantus to 38 unitskeep log return in 2 weeks with log [id number] Darron Nice APRN [address] [address] 01/20/2025 10:03:17 01/20/2025 11:23:11 Type 2 diabetes mellitus 05568191 E11.9 Z79.4 77602287 stop metformini ncrease lantus to 45 units, continue to increase lantus by 2 units if adv glucose over 200.if cre improved will restart metformin, if not will start trajenta and refer to endo.keep log return in 2 weeks with log Arterioscl erosis of coronary artery bypass graft 509136857 I25.810 45457016 Uncontroll ed type 2 diabetes mellitus 006896019 E11.65 38274515 stop metforminp t refuses glp1,insul in,jardian ce,insulin pump at this timeincrea se lantus to 45 unitskeep log return in 2 weeks with log Right lowe r quadrant pain 707447333 R10.31 362598 [id number] Darron Nice APRN [address] [address] 02/12/2025 13:43:17 02/12/2025 15:04:40 Type 2 diabetes mellitus 07522816 E11.9 Z79.4 93040071 stop metformini ncrease lantus to 50 units, continue to increase lantus by 2 units if adv glucose over 200.if cre improved will restart metformin, if not will start trajenta and refer to endo.keep log return in 2 weeks with log Hyperkalemia 16474399 E8 7.5 9805 labsif elevated- take entire bottle Dermatophytosis 00121755 B35.9 45298 cream Essential hypertension 24251228 I10 81328 follow up with cardiology Health Concerns Section Related Observation LastModified by Organization Detai ls LastModified Time None Recorded Concern Status LastModified by Organization Details LastModified Time None Recorded Advance Directives Directive N: Payers Insurance Date Sequence Insurance Name Policy Number Policy Lacy Covered Member ID Lacy Member ID Guarantor Name 02/09/2025 1 [employer] - GOLD PLUS (MEDICARE REPLACEMENT/A DVANTAGE - HMO) Ovi Escobar [id number] Ovi Escobar Notes Date Note Type Note [...] states doing well- chronic back pain Darron Nice, COUG[employer] HUNTER [address], [place], [address], [facility] - [facility] 10/28/2024 14:26:37 5 text/html ROS as noted in the HPI 68 year old male who presents to the office today with concerns ofsore on left 4th toe- no injury noted has been using mupirocin cream with no relief. Mavisbrieyoli GonzalezBRIELLE franks [address], [place], [address], [facility] - [facility] 11/11/2024 16:42:30 5 text/html Diabetes [...] episodes. Darron Nice APRN [address], [place], [address], [facility] - [facility] 01/06/2025 16:50:50 5 [...] time Darron Nice APRN [address], [place], [address], [facility] - [facility] 01/20/2025 11:19:44 5 text/html ROS as noted in the HPI 69 year old male who presents to the office today for a follow up on high potassium- pt has not taken medicine at this time, states he did not know he was supposed to drink it all at oncehas concerns of high glucose readings, some over 500has concerns of BP bouncing aroundsaw general surgery on 02-10-25, no gallbladder surgery needed per ptthirsty all the timetired all the time Darron Nice APRN [address], [place], [address], [place] - [facility] 02/12/2025 16:29:57
--- OUTSIDE RECORDS SUMMARY | 2025-02-14 14:49 | XMS_ITS | Data Portability ---
Author Organization [place] - [facility], [employer] [facility] Address [address] [place] [address] Care Team Providers Care Compliance Paralegal Name Role Phone JUANI MADISON Primary Care Provider [phone] Assessment No assessment recorded. Plan of Treatment Reminders Order Date Submit Date Provider Last Modified By Organization Details Last Modified Time Details Appointments None recorded. Lab None recorded. Referral remote care management referral 2022 023 RAJESH Not available 4 05:00:59 Procedures None recorded. Surgeries None recorded. Imaging None recorded. Medication Orders None recorded. Patient TargetsNo targets recorded. Patient Instructions Encounter Date Encounter Id Patient Instructions Last Modified By Organization Details Last Modified Time 07/21/2022 [id number] The total amount of time on the phone in medical discussion and care of this patient: 10 minutes. Disclaimer: Patient understands that telephonic visits have limitations and the provider has indicated recommendations based on the information provided by the patient and no physical exam was conducted. Medication refills, if required, are provided to avoid disruption in the ongoing care of the patient. Patient has agreed to the recommendations and will do the necessary testing, if required, in a reasonable timeframe. Pt gives verbal consent to RPM monitoring as below: I believe that you can benefit from Remote Patient Monitoring ( R PM ) and want to enroll you in my Remote Patient Monitoring program. If you agree, a company called [employer] will reach out to you. [employer] provides devices and services that will facilitate the provision of RPM. Through devices provided by [employer], I will be able to remotely monitor your vital signs and other data in order to ensure compliance with treatment regimens and have real time discussions with you when your vital signs are off base. Consent to Remote Patient Monitoring I need to obtain your consent in order to enroll you in the Remote Patient Monitoring program and receive Remote Patient Monitoring services from [employer], in conjunction with [address] [place] [address]. As a condition of receiving Remote Patient Monitoring services, I will provide your home telephone number, cell number and email address to [address] [place] [address]. Terms of Use Information The Terms of Use for the Remote Patient Monitoring services will be included in your welcome box. Please review this document carefully. By using the [employer], you are agreeing to be bound by the Terms of Use document that will be included in your welcome box. If you decide not to receive Remote Patient Monitoring services at any time, you can contact [employer] or [address] [place] [address] by phone at [phone]. [email or web address] Not available 07/21/2022 11:05:45 Reason for Referral Referring Physician: Luz cruz, Family Medicine, Encounter Date: 07/21/2022 Problems Name Problem SNOMED Code Status Onset Date Resolution Date Notes Provider Name and Address Organization Details Recorded Time Type 2 diabetes mellitus 26516043 Active 2022 Susannahguera Santiago null, [place] - [facility] 10:56:00 Obesity 700493598 Active 2022 Eve Santiago null, [place] - [facility] 10:56:10 Aspirin therapy Active 2022 Susannahguera Santiago null, [place] - [facility] 10:56:20 Gastroesophage al reflux disease 173892351 Active 2022 Susannahguera Santiago null, [place] - [facility] 10:56:42 Hyperlipidemia 47279084 Active 2022 Susannahguera Santiago null, [place] - [facility] 10:56:49 Chronic back pain 339521674 Active 2022 Susannahguera Santiago null, [place] - [facility] 10:58:12 Problem Notes None recorded. Procedures Surgical History Date Name Laterality Status Provider Name and Address Organization Details Recorded Time coronary artery bypass grafts x 3 completed Juan Carlos Hodge [place] - [facility] 07/21/2022 10:49:46 Imaging Results None recorded. Procedure Notes None recorded. Medical Equipment None Reported. Allergies Allergen ID Allergen Name Allergen Category Reaction Reaction Severity Criticality Documentation Date Start Date Code Code System Note Provider Name and Address Organization Details Recorded Time 18397 insulin aspart, human medicatio n Not available Not available Not available 07/21/2022 61204 RxNorm Juan Carlos Hodge [facility], [facility] 3 10:49:07 03100 Milk (substanc e) food,medi cation Not available Not available Not available 07/21/2022 19224 002 SNOMED Juan Carlos Hodge [facility], [facility] 3 10:49:15 86917 naproxen medicatio n Not available Not available Not available 07/21/2022 7258 RxNorm Juan Carlos Hodge [facility], [facility] 3 10:49:23 Medications Name Sig Start Date Stop Date Status Note LastModified by Organization Details LastModified Time celecoxib 200 mg capsule 07/21 completed Not Available Not Available Not Available methocarbam ol 500 mg tablet TAKE 1 TABLET BY MOUTH THREE TIMES DAILY active Not Available Not Available No t Available carvedilol 6.25 mg tablet active Not Available Not Available Not Available torsemide 20 mg tablet TAKE 1 TABLET BY MOUTH TWICE DAILY active Not Available Not Available No t Available IBU 800 mg tablet 07/21 completed Not Available Not Available Not Available tizanidine 4 mg tablet 07/21 completed Not Available Not Available Not Available hydrocodone 5 mg-acetamin ophen 325 mg tablet TAKE 1 TABLET BY MOUTH EVERY 6 HOURS NEEDED FOR PAIN 07/21 completed Not Available Not Available Not Available meloxicam 15 mg tablet TAKE 1 TABLET BY MOUTH ONCE DAILY active Not Available Not Available No t Available prednisone 20 mg tablet active Not Available Not Available Not Available isosorbide mononitrate ER 30 mg tablet,exte nded release 24 hr TAKE 1 TABLET BY MOUTH ONCE DAILY IN THE MORNING. 07/21 completed Not Available Not Available Not Available Accu-Chek Softclix Lancets USE 1 TO CHECK GLUCOSE THREE TIMES DAILY active Not Available Not Available No t Available penicillin V potassium 500 mg tablet TAKE 1 TABLET BY MOUTH 4 TIMES DAILY FOR 7 DAYS 07/21 completed Not Available Not Available Not Available clopidogrel 75 mg tablet TAKE 1 TABLET BY MOUTH ONCE DAILY active Not Available Not Available No t Available aspirin 81 mg tablet,adams yed release Take 1 tablet every day by oral route. active Not Available Not Available No t Available tramadol 50 mg tablet TAKE 1 TABLET BY MOUTH TWICE DAILY NEEDED FOR PAIN 07/21 completed Not Available Not Available Not Available triamcinolo ne acetonide 0.1 % topical cream APPLY CREAM EXTERNALL Y TWICE DAILY active Not Available Not Available No t Available carvedilol 3.125 mg tablet active Not Available Not Available Not Available isosorbide mononitrate ER 60 mg tablet,exte nded release 24 hr TAKE 1 TABLET BY MOUTH ONCE DAILY IN THE MORNING active Not Available Not Available No t Available linezolid 600 mg tablet TAKE 1 TABLET BY MOUTH EVERY 12 HOURS active Not Available Not Available No t Available cephalexin 500 mg capsule TAKE 1 CAPSULE BY MOUTH EVERY 8 HOURS FOR 10 DAYS active Not Available Not Available No t Available pantoprazol e 40 mg tablet,adams yed release TAKE 1 TABLET BY MOUTH TWICE DAILY active Not Available Not Available No t Available glimepiride 4 mg tablet TAKE 1 TABLET BY MOUTH TWICE DAILY BEFORE MEAL(S) active Not Available Not Available No t Available nitroglycer in 0.4 mg sublingual tablet DISSOLVE ONE TABLET UNDER THE TONGUE EVERY 5 MINUTES NEEDED FOR CHEST PAIN. DO NOT EXCEED A TOTAL OF 3 DOSES IN 15 MINUTES active Not Available Not Available No t Available etodolac 400 mg tablet 07/21 completed Not Available Not Available Not Available lisinopril 5 mg tablet TAKE 1 TABLET BY MOUTH ONCE DAILY active Not Available Not Available No t Available hydrochloro thiazide 25 mg tablet TAKE 1 TABLET BY MOUTH ONCE DAILY 07/21 completed Not Available Not Available Not Available furosemide 20 mg tablet active Not Available Not Available Not Available methylpredn isolone 4 mg tablets in a dose pack 07/21 completed Not Available Not Available Not Available SSD 1 % topical cream APPLY CREAM TOPICALLY TWICE DAILY FOR 14 DAYS 07/21 completed Not Available Not Available Not Available ketoconazol e 2 % topical cream 07/21 completed Not Available Not Available Not Available clobetasol 0.05 % scalp solution 07/21 completed Not Available Not Available Not Available metformin ER 500 mg tablet,exte nded release 24 hr TAKE 2 TABLETS BY MOUTH TWICE DAILY WITH MEALS active Not Available Not Available No t Available naproxen 500 mg tablet TAKE 1 TABLET BY MOUTH TWICE DAILY WITH FOOD 07/21 completed Not Available Not Available Not Available rosuvastati n 10 mg tablet 07/21 completed Not Available Not Available Not Available rosuvastati n 20 mg tablet TAKE 1 TABLET BY MOUTH NIGHTLY active Not Available Not Available No t Available alprazolam 1 mg disintegrat ing tablet TAKE 1 TABLET BY MOUTH ONE HOUR PRIOR TO PROCEDURE AND BRING OTHER TABLET WITH YOU 07/21 completed Not Available Not Available Not Available Vitamin C active Not Available Not Isabel ilable Not Available zinc active Not Available Not Availa ble Not Available Vitamin D3 active Not Available Not Av ailable Not Available multivitami n active Not Available Not Available Not Available Cinnamon active Not Available Not Avai lable Not Available Farxiga 10 mg tablet TAKE 1 TABLET BY MOUTH ONCE DAILY active Not Available Not Available No t Available Accu-Chek Guide test strips USE 1 STRIP TO CHECK GLUCOSE THREE TIMES DAILY active Not Available Not Available No t Available Ozempic 1 mg/dose (4 mg/3 mL) subcutaneou s pen injector INJECT 1 MG SUBCUTANE OUSLY ONCE A WEEK. active Not Available Not Available No t Available Vitals Date Recorded Body height Body mass index (BMI) Body weight Provider Name and Address Organization Details Last Updated DateTime 07/21/2022 175.26 cm 34.4 kg/m2 053967.02 g Juan Carlos Hodge [facility] 07/21/2022 10:48:47 Social History Question Answer Notes LastModified by [employer] Details LastModified Time Tobacco Smoking Status Never Smoker Juan Carlos Hodge null, [facility] 07/21/2022 10:49:39 What Is Your Level Of Caffeine Consumption? Moderate [email or web address] Information not available 07/21/2022 Sex: Unknown Functional Status Question Answer Note LastModified by [employer] Details LastModified Time Do you use any illicit or recreational drugs? No [email or web address] Information not available 07/21/2022 Do you or have you ever used any other forms of tobacco or nicotine? No [email or web address] Information not available 07/21/2022 What is your level of alcohol consumption? None [email or web address] Information not available 07/21/2022 Mental Status None recorded. Family History Nothing Reported. Medical History Condition Response Diabetes Y High Cholesterol Y Congestive Heart Failure (CHF) N Cancer N Hypertension N COPD N Kidney Disease N Past Encounters Encounter ID Performer Location Encounter Start Date Encounter Closed Date Diagnosis/Indication Diagnosis SNOMED-CT Code Diagnosis ICD10 Code Diagnosis IMO Codes Diagnosis Note [id number] LUZ SANTIAGO NP PS_Provid er Schedule [address] [place] [address] 07/21/2022 10:39:29 07/21/2022 11:11:36 Diabetes mellitus 37254881 E11.9 Health Concerns Section Related Observation LastModified by Organization Detai ls LastModified Time None Recorded Concern Status LastModified by Organization Details LastModified Time None Recorded Advance Directives Directive None Recorded Payers Insurance Date Sequence Insurance Name Policy Number Policy Lacy Covered Member ID Lacy Member ID Guarantor Name 10/23/2022 1 [employer] (MEDICARE REPLACEMENT/A DVANTAGE - HMO) Ovi Escobar [id number] Ovi Escobar Notes Date Note Type Note Provider Name and Address Organization Details Recorded Time 3 text/html DiabetesReported by PatientComplications and Co-morbiditiesFor chronic complications, patient reportshyperlipidemia: yes.ROS as noted in the HPI Provider Location: Office in [facility] Location: [facility] Start Time: 1055Session End TIme: 1100Patient Gives Verbal Consent for this Visit: YesCC: Remote Patient monitoring for DMOngoing Issues:[facility] 07/21/2022 11:11:28
--- OUTSIDE RECORDS SUMMARY | 2025-02-14 14:49 | XMS_ITS | Continuity of Care Document ---
Author Organization [facility] Joya Briggs [facility] Address [address] [place] [address] Care Team Providers Care Picker Name Role Phone SAPPHIRE JIMÉNEZ Referring Provider [phone] Assessment No assessment recorded. Plan of Treatment Reminders Order Date Submit Date Provider Last Modified By Organization Details Last Modified Time Details Appointments None recorded. Lab CMP, serum or plasma 2024 [place] [facility], [address], [facility], [place], [address], 11:08:07 Referral None recorded. Procedures None recorded. Surgeries None recorded. Imaging None recorded. Medication Orders Lantus Solostar U-100 Insulin 100 unit/mL (3 mL) subcutaneou s pen 2024 025 [facility], [address], [place], [address], 16:29:14 ketoconazol e 2 % topical cream 2024 025 [facility], [address], [place], [address], 5 15:36:22 Patient TargetsNo targets recorded. Patient InstructionsNo instructions recorded. Reason for Referral None Reported. Results Created Date Observation Date Name Description Value Unit Range Abnormal Flag Note LastModifiedBy Organization Detail LastModifiedTime 01/21/20 25 01/21/2025 COMP. METAB OLIC PANEL (14) glucose 486 mg/dL 70-99 above high normal Not Available [facility] ([facility]) [address] [facility] [place], [address], 01/21/2025 08:12:50 01/21/20 25 01/21/2025 COMP. METAB OLIC PANEL (14) BUN 30 mg/dL 8-27 above high normal Not Available [facility] ([facility]) [address] [facility] [place] [facility] [place], [address], 01/21/2025 08:12:50 01/21/20 25 01/21/2025 COMP. METAB OLIC PANEL (14) creatinine 1.79 mg/dL 0.76-1 .27 above high normal Not Available [facility] ([facility]) [address] [facility] [place] [facility] [place], [address], 01/21/2025 08:12:50 01/21/20 25 01/21/2025 COMP. METAB OLIC PANEL (14) eGFR 40 mL/mi n/1.7 3 >59 below low normal Not Available [facility] ([facility]) [address] [facility] [place] [facility] [place], [address], 01/21/2025 08:12:50 01/21/20 25 01/21/2025 COMP. METAB OLIC PANEL (14) BUN/creatini ne ratio 17 10-24 normal Not Available [facility] ([facility]) [address] [facility] [place], [address], 01/21/2025 08:12:50 01/21/20 25 01/21/2025 COMP. METAB OLIC PANEL (14) sodium 131 mmol/ L 134-14 4 below low normal Not Available [facility] ([facility]) [address] [facility] [place], [address], 01/21/2025 08:12:50 01/21/20 25 01/21/2025 COMP. METAB OLIC PANEL (14) potassium 5.5 mmol/ L 3.5-5. 2 above high normal Not Available [facility] ([facility]) [address] [facility] [place] [facility], [place], [address], 01/21/2025 08:12:50 01/21/20 25 01/21/2025 COMP. METAB OLIC PANEL (14) chloride 97 mmol/ L 96-106 normal Not Available [facility] ([facility]) [address] [place], [address], 01/21/2025 08:12:50 01/21/20 25 01/21/2025 COMP. METAB OLIC PANEL (14) carbon dioxide, total 19 mmol/ L 20-29 below low normal Not Available [facility] ([facility]) [address] [place], [address], 01/21/2025 08:12:50 01/21/20 25 01/21/2025 COMP. METAB OLIC PANEL (14) calcium 9.6 mg/dL 8.6-10 .2 normal Not Available [facility] ([facility]) [address] [place], [address], 01/21/2025 08:12:50 01/21/20 25 01/21/2025 COMP. METAB OLIC PANEL (14) protein, total 5.9 g/dL 6.0-8. 5 below low normal Not Available [facility] ([facility]) [address] [place], [address], 01/21/2025 08:12:50 01/21/20 25 01/21/2025 COMP. METAB OLIC PANEL (14) albumin 4.1 g/dL 3.8-4. 8 normal Not Available [facility] ([facility]) [address] [place], [address], 01/21/2025 08:12:50 01/21/20 25 01/21/2025 COMP. METAB OLIC PANEL (14) globulin, total 1.8 g/dL 1.5-4. 5 Not Available [facility] ([facility]) [address] [place], [address], 01/21/2025 08:12:50 01/21/20 25 01/21/2025 COMP. METAB OLIC PANEL (14) bilirubin, total 0.4 mg/dL 0.0-1. 2 normal Not Available [facility] ([facility]) [address] [facility] [place], [address], 01/21/2025 08:12:50 01/21/20 25 01/21/2025 COMP. METAB OLIC PANEL (14) alkaline phosphatase 110 IU/L 47-123 normal Not Available [facility] ([facility]) [address] [facility] [place], [address], 01/21/2025 08:12:50 01/21/20 25 01/21/2025 COMP. METAB OLIC PANEL (14) AST (SGOT) 11 IU/L 0-40 normal Not Available [facility] ([facility]) [address] [facility] [place] [facility], [place], [address], 01/21/2025 08:12:50 01/21/20 25 01/21/2025 COMP. METAB OLIC PANEL (14) ALT (SGPT) 15 IU/L 0-44 normal Not Available [facility] ([facility]) [address] [facility] [place] [facility], [place], [address], 01/21/2025 08:12:50 01/21/20 25 01/21/2025 LEONIE+L IPASE amylase 23 U/L 31-110 below low normal Not Available [facility] ([facility]) [address] [place], [address], 01/21/2025 08:12:50 01/21/20 25 01/21/2025 LEONIE+L IPASE lipase 42 U/L 13-78 normal Not Available [facility] ([facility]) [address] [place], [address], 01/21/2025 08:12:50 01/21/20 25 01/21/2025 INSUL IN AND C-PEP TIDE, SERUM insulin 24.4 uIU/m L 2.6-24 .9 normal Not Available [facility] ([facility]) [address] [facility] [place], [address], 01/21/2025 08:12:50 01/21/20 25 01/21/2025 INSUL IN AND C-PEP TIDE, SERUM C-peptide, serum 9.1 NG/mL 1.1-4. 4 above high normal C-Pep tide refer ence inter anish is for fasti ng patie nts. Not Available [facility] ([facility]) [address] [facility] [place], [address], 01/21/2025 08:12:50 02/13/20 25 02/13/2025 COMP. METAB OLIC PANEL (14) glucose 505 mg/dL 70-99 panic high Amanda ified by repea t kiara sis Not Available [facility] ([facility]) [address] [facility] [place] [facility], [place], [address], 02/13/2025 11:08:07 02/13/20 25 02/13/2025 COMP. METAB OLIC PANEL (14) BUN 44 mg/dL 8-27 above high normal Not Available [facility] ([facility]) [address] [place], [address], 02/13/2025 11:08:07 02/13/20 25 02/13/2025 COMP. METAB OLIC PANEL (14) creatinine 2.02 mg/dL 0.76-1 .27 above high normal Not Available [facility] ([facility]) [address] [place], [address], 02/13/2025 11:08:07 02/13/20 25 02/13/2025 COMP. METAB OLIC PANEL (14) eGFR 35 mL/mi n/1.7 3 >59 below low normal Not Available [facility] ([facility]) [address] [place], [address], 02/13/2025 11:08:07 02/13/20 25 02/13/2025 COMP. METAB OLIC PANEL (14) BUN/creatini ne ratio 22 10-24 normal Not Available [facility] ([facility]) [address] [facility] [place], [address], 02/13/2025 11:08:07 02/13/20 25 02/13/2025 COMP. METAB OLIC PANEL (14) sodium 133 mmol/ L 134-14 4 below low normal Not Available [facility] ([facility]) [address] [facility] [place], [address], 02/13/2025 11:08:07 02/13/20 25 02/13/2025 COMP. METAB OLIC PANEL (14) potassium 4.9 mmol/ L 3.5-5. 2 normal Not Available [facility] ([facility]) [address] [facility] [place], [address], 02/13/2025 11:08:07 02/13/20 25 02/13/2025 COMP. METAB OLIC PANEL (14) chloride 97 mmol/ L 96-106 normal Not Available [facility] ([facility]) [address] [facility] [place] [facility], [place], [address], 02/13/2025 11:08:07 02/13/20 25 02/13/2025 COMP. METAB OLIC PANEL (14) carbon dioxide, total 18 mmol/ L 20-29 below low normal Not Available [facility] ([facility]) [address] [facility] [place], [address], 02/13/2025 11:08:07 02/13/20 25 02/13/2025 COMP. METAB OLIC PANEL (14) calcium 9.3 mg/dL 8.6-10 .2 normal Not Available [facility] ([facility]) [address] [facility] [place], [address], 02/13/2025 11:08:07 02/13/20 25 02/13/2025 COMP. METAB OLIC PANEL (14) protein, total 6.1 g/dL 6.0-8. 5 normal Not Available [facility] ([facility]) [address] [place], [address], 02/13/2025 11:08:07 02/13/20 25 02/13/2025 COMP. METAB OLIC PANEL (14) albumin 3.9 g/dL 3.8-4. 8 normal Not Available [facility] ([facility]) [address] [place], [address], 02/13/2025 11:08:07 02/13/20 25 02/13/2025 COMP. METAB OLIC PANEL (14) globulin, total 2.2 g/dL 1.5-4. 5 Not Available [facility] ([facility]) [address] [place], [address], 02/13/2025 11:08:07 02/13/20 25 02/13/2025 COMP. METAB OLIC PANEL (14) bilirubin, total 0.3 mg/dL 0.0-1. 2 normal Not Available [facility] ([facility]) [address] [place], [address], 02/13/2025 11:08:07 02/13/20 25 02/13/2025 COMP. METAB OLIC PANEL (14) alkaline phosphatase 124 IU/L 47-123 above high normal Not Available [facility] ([facility]) [address] [place], [address], 02/13/2025 11:08:07 02/13/20 25 02/13/2025 COMP. METAB OLIC PANEL (14) AST (SGOT) 12 IU/L 0-40 normal Not Available [facility] ([facility]) [address] [place], [address], 02/13/2025 11:08:07 02/13/20 25 02/13/2025 COMP. METAB OLIC PANEL (14) ALT (SGPT) 14 IU/L 0-44 normal Not Available [facility] ([facility]) [address], [place], [address], 02/13/2025 11:08:07 01/21/20 25 01/20/2025 MRI, lumba r spine , w/o contr ast No observ ation record ed[facility] [address], [place], [address], 01/22/2025 08:13:54 01/24/2001/23/2025 US, duple x, abdom en, compl ete No observ ation record ed. [facility] [address], [place], [address], 01/26/2025 14:44:54 Result Notes None recorded. Problems Name Problem SNOMED Code Status Onset Date Resolution Date Notes Provider Name and Address Organization Details Recorded Time Type 2 diabetes mellitus 40565900 Active Sandra Brink null, [place] - [facility] 5 08:29:25 Hyperlipidemi a 35841156 Active Sandra Brink null, [place] - [facility] 5 08:29:50 Gastroesophag eal reflux disease 878385158 Active Sandra Brink null, [place] - [facility] 5 08:30:21 Arteriosclero sis of coronary artery bypass graft 687756873 Active Sandra Brink null, [place] - [facility] 5 08:31:20 Chronic systolic heart failure 322372203 Active 2024 Darron Nice, [employer] [address], [place], [address] , [place] - [facility] 5 08:53:26 Hyperparathyr oidism 27912686 Active 2024 Darron Nice, [employer] [address], [place], [address] , [place] - [facility] 5 16:39:10 Problem [...] Name and Address Organization Details Recorded Time 015999 insulin aspart, human medicatio n other moderate high 06/30/2024 04357 RxNorm state s any insul in at any dose drops his gluco se too much Sandra navarro, [place] - [facility] 5 08:24:14 966523 naproxen medicatio n abdominal pain moderate high 06/30/2024 7258 RxNorm Sandra navarro, [place] - [facility] 5 08:24:28 360606 cow milk allergeni c extract food,medi cation dyspnea Not available Not available 01/26/20252013 54280 5 RxNorm Can have butte r (had issue with not able to get green beans , chick en noodl e soup, but able to have) Not Available [employer] - prod 17:31:33 674746 empaglifl ozin medicatio n Not available Not available high 01/26/20252021 19183 53 RxNorm Got a blood infec tion unrec ogniz ed react ion (text : Other (See Comme nts), code: 56643 003) (from exter nal sourc e) Not Available [facility] [employer] - prod 17:31:33 465501 clindamyc in Not available rash Not available Not available 01/26/20252023 2582 RxNorm Not Available [facility] [employer] - prod 17:31:33 593011 Milk (substanc e) food,medi cation Not available Not available Not available 02/12/2025 70919 002 SNOMED Not Available [employer] - prod 07:22:47 Medications [...] day by oral route. 2024 active lot [id number], exp 10/2025 samples provided today Not Available [...] Last Updated DateTime 175.26 cm 35.7 kg/m2 273636. 35 g 82 /min 18 /min 97 % 98 [degF] 118/58 mm[Hg] Isabelle Mccord [place] - [facility] 14:12:42 Social History Question Answer Notes LastModified by Organizat ion Details LastModified Time Tobacco Smoking Status Never Smoker Sandra Cuba navarro, [place] - [facility] 06/30/2024 08:32:09 Do [...] Or The Highest Degree You Have Received? [id number] Information not available 06/30/2024 Have There Been Any Changes To Your Family Or Social Situation? No Information no t available 06/30/2024 What Is The Fluoride Status Of Your Home? Fluoridated Information not available 06/30/2024 Have You Recently Or Are You Planning To Travel To An Area With Zika Virus? No Information not available 06/30/2024 Do You Have A Medical Power Of Ict Trainer? No Information not available 06/30/2024 What Was [...] anxious, or unable to sleep at night)? [id number] Information not available 06/30/2024 Do you have difficulty concentrating, remembering or making decisions? No Information no t available 06/30/2024 Family History Nothing Reported. Medical History No medical history recorded. Immunizations Vaccine Type Date Status Note Provider Name and Address Organization Details Recorded Time Tdap 10/27/19 18 completed Not Available [facility] 02/12/2025 13:43:34 Influenza, high-dose, trivalent, PF 01/26/20 19 completed Not Available [facility] 02/12/2025 13:43:34 Influenza, split virus, trivalent, preservative 10/29/19 25 cancelled patient objection Darron Nice APRN [address], [place], [address], [facility] - [facility] 10/28/2024 14:24:18 zoster recombinant 10/29/19 25 cancelled patient objection Darron Nice APRN [address], [place], [address], [place] - [facility] 10/28/2024 14:24:18 Past Encounters Encounter ID Performer Location Encounter Start Date Encounter Closed Date Diagnosis/Indication Diagnosis SNOMED-CT Code Diagnosis ICD10 Code Diagnosis IMO Codes Diagnosis Note [id number] Darron Nice APRN [address] [address] 01/20/2025 10:03:17 01/20/2025 11:23:11 Type 2 diabetes mellitus 99923667 E11.9 Z79.4 63915548 stop metformini ncrease lantus to 45 units, continue to increase lantus by 2 units if adv glucose over 200.if cre improved will restart metformin, if not will start trajenta and refer to endo.keep log return in 2 weeks with log Arterioscl erosis of coronary artery bypass graft 953394975 I25.810 84696928 Uncontroll ed type 2 diabetes mellitus 295974389 E11.65 63800851 stop metforminp t refuses glp1,insul in,jarmemo ce,insulin pump at this timeincrea se lantus to 45 unitskeep log return in 2 weeks with log Right lowe r quadrant pain 205479433 R10.31 754644 [id number] Darron Nice APRN [address] [address] 02/12/2025 13:43:17 02/12/2025 15:04:40 Type 2 diabetes mellitus 69010759 E11.9 Z79.4 74133186 stop metformini ncrease lantus to 50 units, continue to increase lantus by 2 units if adv glucose over 200.if cre improved will restart metformin, if not will start trajenta and refer to endo.keep log return in 2 weeks with log Hyperkalemia 94348875 E8 7.5 9805 labsif elevated- take entire bottle Dermatophytosis 50866396 B35.9 03601 cream Essential hypertension 66980463 I10 32089 follow up with cardiology Health Concerns Section Related Observation LastModified by Organization Detai ls LastModified Time None Recorded Concern Status LastModified by Organization Details LastModified Time None Recorded Payers Encounter Date Sequence Insurance Name Policy Number Policy Lacy Covered Member ID Lacy Member ID Guarantor Name 02/12/2025 1 [employer] - GOLD PLUS (MEDICARE REPLACEMENT/A DVANTAGE - HMO) Ovi Escobar [id number] Ovi Escobar Notes Date Note Type Note Provider Name and Address Organization Details Recorded Time 02/12/2025 text/html ROS as noted in the HPI [...] all the timetired all the time Darron Nice, [employer] [address], [place], [address], [place] - [facility] 02/12/2025 16:29:57
--- OUTSIDE RECORDS SUMMARY | 2025-02-14 14:49 | XMS_ITS | Continuity of Care Document ---
Author Organization [facility] Brigitte Joya jaramilloFormerly [facility] Address [address] [place] [address] Care Team Providers Care Escort Service Attendant Name Role Phone SAPPHIRE JIMÉNEZ Referring Provider [phone] Assessment No assessment recorded. Plan of Treatment Reminders Order Date Submit Date Provider Last Modified By Organization Details Last Modified Time Details Appointments None recorded. Lab None recorded. Referral None recorded. Procedures None recorded. Surgeries None recorded. Imaging XR, lumbosacral spine, 2 or 3 view 2024 [facility] (X-Ray), [address] [place] [address] [address], [place], [address], 10:16:14 electrocard iogram 2024 025 [facility], [address] [place] [address], [address], 16:45:44 Medication Orders None recorded. Patient TargetsNo targets recorded. Patient InstructionsNo instructions recorded. Reason for Referral None Reported. Results Created Date Observation Date Name Description Value Unit Range Abnormal Flag Note LastModifiedBy Organization Detail LastModifiedTime 01/07/2001/06/2025 elect ebenezer rodriguez am No observ ation record ed. [address], [address], 01/06/2025 16:17:14 01/08/20 25 01/07/2025 XR, lumbo sacra l spine , 2 or 3 view No observ ation record ed. [facility] [address], [place], [address], 01/12/2025 11:19:20 01/21/2001/20/2025 MRI, lumba r spine , w/o contr ast No observ ation record ed. [facility] [address], [place], [place], [address], 01/22/2025 08:13:54 01/24/2001/23/2025 US, duple x, abdom en, compl ete No observ ation record ed. [facility] [address], [place], [address], 01/26/2025 14:44:54 Result Notes None recorded. Problems Name Problem SNOMED Code Status Onset Date Resolution Date Notes Provider Name and Address Organization Details Recorded Time Type 2 diabetes mellitus 43297342 Active Sandra Brink null, [place] - [facility] 5 08:29:25 Hyperlipidemi a 49190299 Active Sandra Brink null, [place] - [facility] 5 08:29:50 Gastroesophag eal reflux disease 138614635 Active Sandra Brink [place], [place] - [facility] 5 08:30:21 Arteriosclero sis of coronary artery bypass graft 612168040 Active Sandra Brink null, [place] - [facility] 5 08:31:20 Chronic systolic heart failure 851770474 Active 2024 Darron Nice, [employer] [address], [place], [address] , [place] - [facility] 5 08:53:26 Hyperparathyr oidism 25007381 Active 2024 Darron Nice, [employer] [address], [place], [address] , [place] - [facility] 5 16:39:10 Problem Notes None recorded. Procedures Surgical History Date Name Laterality Status Provider Name and Address Organization Details Recorded Time 5 Advance Care Planning completed Sandra Brink [place] - [facility] 10/28/2024 14:00:58 Functional Status Assessed completed Sandra FREED - [facility] 10/28/2024 14:00:58 Imaging Results None recorded. Procedure Notes None recorded. Medical Equipment None Reported. Allergies Allergen ID Allergen Name Allergen Category Reaction Reaction Severity Criticality Documentation Date Start Date Code Code System Note Provider Name and Address Organization Details Recorded Time 943173 insulin aspart, human medicatio n other moderate high 06/30/2024 08627 RxNorm state s any insul in at any dose drops his gluco se too much Sandra navarro, [place] - [facility] 5 08:24:14 303016 naproxen medicatio n abdominal pain moderate high 06/30/2024 7258 RxNorm Sandra navarro, [place] - [facility] 08:24:28 035466 cow milk allergeni c extract food,medi cation dyspnea Not available Not available 01/26/20252013 49261 5 RxNorm Can have butte r (had issue with not able to get green beans , chick en noodl e soup, but able to have) Not Available kelsey - [employer] - prod 17:31:33 284748 empaglifl ozin medicatio n Not available Not available high 01/26/20252021 66616 53 RxNorm Got a blood infec tion unrec ogniz ed react ion (text : Other (See Comme nts), code: 93864 003) (from exter nal sourc e) Not Available kelsey - [employer] - prod 17:31:33 219936 clindamyc in Not available rash Not available Not available 01/26/20252023 2582 RxNorm Not Available k[facility]sey - [employer] - prod 17:31:33 052740 Milk (substanc e) food,medi cation Not available Not available Not available 02/12/2025 81484 002 SNOMED Not Available kelsey - External [...] day by oral route. 2024 active lot [id number], exp 10/2025 samples provided today Not Available [...] Updated DateTime 01/06/2025 175.26 cm 35.4 kg/m2 036763.17 g 20 /min Sandra Brink [place] - [facility] 01/06/2025 14:06:46 Social History Question Answer Notes LastModified by Organizat ion Details LastModified Time Tobacco Smoking Status Never Smoker Sandra Brink [facility], [place] - [facility] 06/30/2024 08:32:09 Do You [...] Or The Highest Degree You Have Received? [id number] Information not available 06/30/2024 Have There Been Any Changes To Your Family Or Social Situation? No Information no t available 06/30/2024 What Is The Fluoride Status Of Your Home? Fluoridated Information not available 06/30/2024 Have You Recently Or Are You Planning To Travel To An Area With Zika Virus? No Information not available 06/30/2024 Do You Have A Medical Power Of Horse Buyer? No Information not available 06/30/2024 What Was [...] anxious, or unable to sleep at night)? [id number] Information not available 06/30/2024 Do you have difficulty concentrating, remembering or making decisions? No Information no t available 06/30/2024 Family History Nothing Reported. Medical History No medical history recorded. Immunizations Vaccine Type Date Status Note Provider Name and Address Organization Details Recorded Time Tdap 10/27/19 18 completed Not Available [facility] 02/12/2025 13:43:34 Influenza, high-dose, trivalent, PF 01/26/20 19 completed Not Available [facility] 02/12/2025 13:43:34 Influenza, split virus, trivalent, preservative 10/29/19 25 cancelled patient objection Darron Nice APRN [address], [place], [address], [place] [facility] 10/28/2024 14:24:18 zoster recombinant 10/29/19 25 cancelled patient objection Darron Nice APRN [address], [place], [address], [place] - [facility] 10/28/2024 14:24:18 Past Encounters Encounter ID Performer Location Encounter Start Date Encounter Closed Date Diagnosis/Indication Diagnosis SNOMED-CT Code Diagnosis ICD10 Code Diagnosis IMO Codes Diagnosis Note [id number] Darron Nice APRN [facility] [address] [place] [address] 01/06/2025 13:54:25 01/06/2025 15:16:17 Chest pain 01741475 R07.9 [id number] spoke with tiffanie, see tiffanie tomorrow at 9 amif pain returns or worsen return Chronic low back pain 27 7341969 M54.50 G89.29 53018474 voltaren- allergy to naproxen- 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 Darron Nice, [employer] [address], [place], [address], [place] [facility] 01/06/2025 16:50:50
--- OUTSIDE RECORDS SUMMARY | 2025-02-14 14:49 | XMS_ITS | Encounter Summary ---
Author Organization [facility] [place] [address] Care Team Providers Care Wall Taper Name Role Phone Renato Rey DO [facility] Primary Care Provider [phone] Ariana Munguia MD Unavailable [phone] Reason for Visit * Reason Onset Date Comments Other 01/28/2025 Medication amarilis andrews Encounter Details Date Type Department Care Team (Late st Contact Info) Description 01/28/2025 Telephone [facility] [address] [place] [address] Carlos A Gross DO [address] [place] [address] Other (Medication assistance) Social History Tobacco Use Types Packs/Day Years Used Date Smoking Tobacco: Never Smokeless Tobacco: Never Alcohol Use Standard Drinks/Week Comments No 0 (1 standard drink = 0.6 oz pur e alcohol) NO [facility] Utilities Answer Date Recorded In the [...] Date Recorded PHQ-2 Total Score 0 01/01/2024 [facility] [employer] of Occupat ional Health - Occupational Stress [...] daily living? No [facility]/24/20[facility] IP Transportation Answer [...] EST Guaman RMA documented in this encounter Miscellaneous Notes * Telephone Encounter - Allison Angel RN - 01/29/2025 1:02 PM EST Patient informed samples are not available. No shipment from [employer] at this time. Emailed the application for [employer] for 2025. * Telephone Encounter - Lawanda Saravia - 01/28/2025 11:20 AM EST Select the most appropriate reason for this telephone message: Other Who is calling: Patient Return Method of Communication: Phone Call What is needed OR why are they calling: Pt checking to see if office has insulin glargine (LANTUS SOLOSTAR U-100 INSULIN) 100 unit/mL (3 mL) SubQ Insulin Pen 15 mL 0 12/17/2024 03/19/2025 Sig: Inject 15 units daily Class: Sample When is this needed by: breanne Where does this information need to go: Dr. Gross Additional information:Pt states down to last pen and wants confirmation refills are available at office? Please advise. documented in this encounter Plan of Treatment [...] documented as of this encounter Care Teams Wall Taper Relationship Specialty Start Date End Date Carlos A Gross DO [address] [place] [address] PCP - General Family Medicine 06/15/20 Ariana Munguia MD [address] [place] [id number] Internal Medicine-Cardiovascular Disease 04/11/22 documented as of this encounter
--- NOTE | 2025-02-14 14:50 | HMH.EDGENADL ---
Discharge Plan Disposition Patient Disposition: Home, Self-Care Condition: Good Prescriptions Prescriptions: No Action (DME) Accu-Chek Guide test strips Strip See Rx Instructions .ROUTE .MEDSUPPLY Qty: 10 Patient Comments: USE 1 STRIP THREE TIMES DAILY Rx Instructions: As directed (DME) lancets [Accu-Chek Softclix Lancets] Misc See Rx Instructions .ROUTE .MEDSUPPLY Qty: 100 Patient Comments: USE 1 TO CHECK GLUCOSE THREE TIMES DAILY Rx Instructions: As directed glimepiride 4 mg tablet 4 mg PO BID Patient Comments: TAKE 1 TABLET BY MOUTH TWICE DAILY BEFORE MEAL(S) insulin glargine [Lantus Solostar U-100 Insulin] 100 unit/mL (3 mL) insulin pen 33 unit SQ ONCE Patient Comments: INJECT 33 UNITS EVERY DAY BY SUBCUTANEOUS ROUTE AT BEDTIME bumetanide 2 mg tablet 2 mg PO DAILY Qty: 30 2RF spironolactone [Aldactone] 25 mg tablet 25 mg PO DAILY Qty: 30 2RF fexofenadine 60 mg tablet 60 mg PO BID Patient Comments: TAKE 1 TABLET BY MOUTH TWICE DAILY isosorbide mononitrate 60 mg tablet extended release 24 hr 60 mg PO ONCE Patient Comments: TAKE 1 TABLET BY MOUTH ONCE DAILY IN THE MORNING pantoprazole 40 mg tablet,delayed release (DR/EC) 40 mg PO ONCE Patient Comments: TAKE 1 TABLET BY MOUTH TWICE DAILY calcitriol 0.25 mcg capsule 0.25 mcg PO DAILY Patient Comments: TAKE 1 CAPSULE BY MOUTH EVERY 48 HOURS rosuvastatin 20 mg tablet 20 mg PO DAILY Patient Comments: TAKE 1 TABLET BY MOUTH NIGHTLY dapagliflozin propanediol [Farxiga] 10 mg tablet 10 mg PO DAILY aspirin 81 mg tablet 81 mg PO DAILY Qty: 30 2RF valsartan 40 mg tablet 40 mg PO DAILY Qty: 30 2RF ranolazine 500 mg tablet extended release 12 hr 500 mg PO BID Qty: 60 2RF Referrals Follow up/Referrals: Darron Nice APRN [Primary Care Provider, Medical] - See instructions Activity Restrictions/Add. Instructions Additional Instructions/Restrictions: Please call your PCP for follow-up early next week. Please return to the emergency department with any worsening signs or symptoms. Please continue to take all your medications as prescribed. I would recommend good intake of p.o. solids and fluids. Clinical Impressions Clinical Impression: Type 2 diabetes mellitus, Acute kidney injury superimposed on CKD Instructions Patient Instructions: Acute Kidney Injury, Chronic Kidney Disease, DI for Hyperglycemia in Adults Print Language Print Language: Kosovan Discharge ED Provider: Vinicius Amanda Adult HPI General Chief complaint: Urogenital-Male Stated complaint: Sent by Julienne Nice for abnormal labs Time Seen by Provider: 02/14/25 14:42 Mode of Arrival: Ambulatory Source of Information: Patient and Medical Record Limitations: No Limitations History of Present Illness HPI narrative: 69-year-old male presents to the emergency department with request of his PCP for abnormal kidneys , patient tells me that he had lab work performed at his PCPs office yesterday, and states that his kidney function was abnormal, this prompted to come to the emergency department. Patient was supposed to come yesterday, however could not due to logistic reasons. Patient denies any fever chills, chest pain, admits to shortness of breath which is chronic for him, does have slated appointment with [employer] payroll consultant, denies any nausea vomiting constipation diarrhea, does admit to frequent urination, denies any hematuria melena hematochezia hematemesis, patient is a non-smoker denies any alcohol or drug use, patient does not give any numerical value to his laboratory studies, patient states he was taken off bumetanide and started on Trulicity taken off metformin yesterday at his PCP appointment. Otherwise has no other changes in medications been taking medication as prescribed. Other past medical history consistent with pulmonary hypertension, HFpEF status post CABG and status post 1 stent placement, T2DM. Initial triage vitals unremarkable, with exception of bradycardia. Please note that above description of symptoms, in this electronic medical record under categorization of recalled from ER triage doctor by RN are reflective of an initial nursing assessment, however, is not reflective of my full history and physical exam that was personally taken and clarified. Consequentially, this preceding description of symptoms, which may include the patient's categorized chief complaint in the EMR, do not reflect my personal clinical impression, and the ultimate description of history of present illness and patient stated complaints should be deferred to this section of the note. Unless stated otherwise or congruent with this section of the note, additional signs, symptoms, or incongruence should be interpreted as inaccurate with my clinical impression. Onset (ago): unknown Related Data Home Medications ?Medication ?Instructions ?Recorded ?Confirmed calcitriol 0.25 mcg capsule 0.25 mcg PO DAILY 07/14/24 02/10/25 dapagliflozin propanediol 10 mg 10 mg PO DAILY 07/14/24 02/10/25 tablet (Farxiga) fexofenadine 60 mg tablet 60 mg PO BID 07/14/24 02/10/25 isosorbide mononitrate 60 mg 60 mg PO ONCE 07/14/24 02/10/25 tablet,extended release 24 hr pantoprazole 40 mg tablet,delayed 40 mg PO ONCE 07/14/24 02/10/25 release rosuvastatin 20 mg tablet 20 mg PO DAILY 07/14/24 02/10/25 blood sugar diagnostic (Accu-Chek #10 ea 09/18/24 02/10/25 Guide test strips) glimepiride 4 mg tablet 4 mg PO BID 09/18/24 02/10/25 insulin glargine 100 unit/mL (3 33 unit SQ ONCE 09/18/24 02/10/25 mL) subcutaneous pen (Lantus Solostar U-100 Insulin) lancets (Accu-Chek Softclix #100 ea 09/18/24 02/10/25 Lancets) Previous Rx's ?Medication ?Instructions ?Recorded bumetanide 2 mg tablet 2 mg PO DAILY #30 tabs 12/03/24 spironolactone 25 mg tablet 25 mg PO DAILY #30 tabs 12/30/24 (Aldactone) ranolazine 500 mg tablet,extended 500 mg PO BID #60 tabs 01/08/25 release,12 hr valsartan 40 mg tablet 40 mg PO DAILY #30 tabs 01/08/25 aspirin 81 mg tablet 81 mg PO DAILY #30 tabs 01/28/25 Allergies Allergy/AdvReac Type Severity Reaction Status Date / Time Milk Containing Products Allergy Severe Swelling Verified 02/10/25 10:58 (Dairy) of Lip/Tongue/Throat naproxen Allergy Mild Nausea Verified 02/10/25 10:58 Insulins - Human AdvReac Other Verified 02/10/25 10:58 [facility] Disclaimer: The information contained in this section may have been updated after the patient was seen, as this information can be updated by other users. Medical History Hyperlipidemia Shortness of breath HFrEF (heart failure with reduced ejection fraction) Abnormal electrocardiogram [ECG] [EKG] CAD (coronary artery disease) CHF (congestive heart failure) Type 2 diabetes mellitus Surgical History S/P CABG x 3 S/P cardiac cath Social History Smoking Status: Never smoker alcohol intake: never substance use type: denies use current occupational status: retired Travel in the last 8 weeks?: Inside the [place] Have you lived/traveled outside US in past 30 days?: No Contact w/someone who lives/traveled outside US past 30 days?: No Exposure to someone with infectious disease in past 14 days?: No Do you have a fever (greater than 100.4 F or 38 C)?: No Have you tested positive for COVID-19?: No Exposed to someone with COVID-19 in past 14 days?: No Do you have a sore throat?: No Do you have a cough?: No Do you have any weakness?: No Do you have any diarrhea?: No Are you experiencing any unusual bleeding?: No Do you have any muscle aches/pain?: No Do you have any abdominal pain?: No Are you experiencing loss of taste or smell?: No Other Medical History Have you received the Pneumonia Vaccine: No ROS Obtained: Yes All systems reviewed & no additional complaints except as documented Physical Exam General General appearance: alert and in no apparent distress Head Head exam: atraumatic and normocephalic Eye Eye exam: Present PERRL and EOMI ENT ENT exam: Present mucous membranes moist Neck Neck exam: Present normal inspection Chest Chest inspection: Present normal inspection and symmetric chest wall rise Respiratory Respiratory exam: Present normal lung sounds bilaterally; Absent respiratory distress Cardiovascular Cardiovascular exam: Present regular rate and normal rhythm Abdominal Exam Abdominal exam: Present soft; Absent tenderness, guarding, rebound or rigidity Extremities Exam Extremities exam: Present normal inspection Neurological Exam Neurological exam: Present alert and oriented X3 Psychiatric Psychiatric exam: Present normal affect Skin Skin exam: Present warm and dry Medical Decision Making Medical Records Medical records reviewed: Yes I reviewed the patient's medical records. Screening: Per USPSTF and CDC recommendations, given the prevalence of disease in our region, it is our hospital?s policy to screen for HIV and viral Hepatitis for all patients aged 18 and over and those with ongoing risk factors. Mata Inquiry Pt receiving controlled substance: No Vital Signs: 02/14/25 14:42 02/14/25 14:47 02/14/25 15:01 Temperature 97.9 F Temperature Source Oral Pulse Rate 74 47 L Pulse Rate [Left Radial] 57 L Respiratory Rate 16 Blood Pressure 106/59 L 102/53 L Blood Pressure [Right Arm] 106/59 L Blood Pressure Mean [Right Arm] 74 02 Sat by Pulse Oximetry 97 97 97 Oxygen Delivery Method Room Air 02/14/25 15:30 02/14/25 16:00 02/14/25 16:30 Temperature Temperature Source Pulse Rate 71 70 65 Pulse Rate [Left Radial] Respiratory Rate Blood Pressure 103/53 L 109/52 L 116/80 Blood Pressure [Right Arm] Blood Pressure Mean [Right Arm] 02 Sat by Pulse Oximetry 95 95 94 L Oxygen Delivery Method Lab Data Lab results reviewed: Yes I reviewed the patient's lab results. Lab Results 02/14/25 14:55: WBC 6.1, RBC 4.67, Hgb 13.4 L, Hct 41.5 L, MCV 88.9, MCH 28.7, MCHC 32.3, RDW 12.9, Plt Count 212, MPV 12.2 H, Neut % (Auto) 72.8, Lymph % (Auto) 14.5, [place] % (Auto) 6.6, Eos % (Auto) 4.8, Baso % (Auto) 0.5, Neut # (Auto) 4.4, Lymph # (Auto) 0.9, [place] # (Auto) 0.4, Eos # (Auto) 0.3, Baso # (Auto) 0.0, Sodium 128 L, Potassium 4.6, Chloride 99, Carbon Dioxide 20 L, Anion Gap 13.6, BUN 43 H, Creatinine 1.80 H, Estimated Creat Clear 57, Estimated GFR 37 L, Est GFR ( Amer) 45 L, Glucose 461 H*, Calcium 8.9, Magnesium 2.3, Total Bilirubin 0.4, AST 18, ALT 19, Alkaline Phosphatase 116, NT-Pro-B Natriuret Pep 698 H, Total Protein 6.2 L, Albumin 3.7, Globulin 2.5, Albumin/Globulin Ratio 1.5 02/14/25 15:04: VBG pH 7.35, VBG pCO2 38.0, VBG pO2 51.7 H, VBG HCO3 20.7 L, VBG Total CO2 21.9 L, VBG O2 Saturation 87.1 H, VBG Base Excess -4.8 L, VBG Lactic Acid 3.5 H 02/14/25 15:10: Acetone Level None detected 02/14/25 16:10: Urine Color Yellow, Urine Appearance Clear, Urine pH 6.0, Ur Specific [place] 1.010, Urine Protein Negative, Urine Glucose (UA) 3+, Urine Ketones Negative, Urine Blood Negative, Urine Nitrate Negative, Urine Bilirubin Negative, Urine Urobilinogen 0.2, Ur Leukocyte Esterase Negative, Urine RBC None, Urine WBC None, Ur Squamous Epith Cells None, Urine Bacteria None 02/14/25 14:55 02/14/25 14:55 Orders (Tests/Meds): ORDERS Category Date Time Status Acetone, Serum (Rapid) Stat Lab 02/14/25 15:10 Completed Complete Blood Count Auto Diff Stat Lab 02/14/25 14:55 Completed Comprehensive Metabolic Panel Stat Lab 02/14/25 14:55 Completed HIV Combo Routine Lab 02/14/25 14:55 Received Hepatitis C Ab Qual. W/ RFX Routine Lab 02/14/25 14:55 Received Magnesium Stat Lab 02/14/25 14:55 Completed NT Pro Brain Natriuretic Pep. Stat Lab 02/14/25 14:55 Completed Urinalysis and Microscopic Stat Lab 02/14/25 16:10 Completed VBG [Venous Blood Gas] Stat RT 02/14/25 15:04 Completed Medical Decision Narrative: 69-year-old male presents emergency department for abnormal labs from his PCPs office, concern for elevated/abnormal kidney function, he is unsure numerical value. Differential diagnose include but not limited to, medication side effect, cardiac arrhythmia, electrolyte disturbance, hypovolemia, PAUL, acid-base disturbance among others. I discussed this patient's case with the attending physician Dr. Amanda Will obtain basic laboratory studies, magnesium level proBNP urinalysis, VBG and EKG CBC is unremarkable VBG is notable for normal pH, bicarb is mildly decreased at 20.7, venous lactic acid elevated at 3.5 otherwise unremarkable. Mild hyponatremia at 128, BUN elevation of 43, creatinine elevation at 1.8, hyperglycemia at 461, thus obtain acetone level, proBNP is mildly evaded at 698 otherwise unremarkable CBC. I discussed this patient's case with Jason Nice APRN which is the patient's PCP at approximately 3:48 PM, she tells me that on lab draw yesterday that the patient's creatinine was around 2.2, and his blood glucose was over 500, thus because of creatinine elevation and hyperglycemia, patient was started on Trulicity and discontinued bumetanide and discontinue metformin. I discussed that patient's creatinine today is 1.8, this appears to be back at the patient's baseline. Acetone level was not detected UA is notable for 3+ glucose urea, negative leukocyte esterase, no RBCs no WBCs no squamous epithelial cells no bacteria. I discussed the results of the patient family bedside, patient and family in agreement with current discharge plan discharge treatment plan patient continues remain asymptomatic, bradycardia has improved, patient is otherwise remained hemodynamically stable without his time in the emergency department. According to patient's PCP, lab draw yesterday patient is already had improvement in his acute kidney injury, has already had a change of medications. Advised to follow-up with PCP in the upcoming days/weeks. Patient and family voiced understanding and agreed with the current treatment plan/discharge plan. Strict ED return precaution given. Critical Care Critical Care Time Critical Care Time: No
--- NOTE | 2025-02-14 14:57 | PC.NURSE ---
Called Resp. for a VBG. Susannah
--- NOTE | 2025-02-14 15:01 | ECG_ITS ---
APPROVED REPORT Exam: Resting ECG HR:72 bpm ECG Measurements Heart Rate 72 AXES IL 216 P 29 QRSd 157 QRS -2 QT 444 T 129 QTc 469 Conclusion SINUS RHYTHM WITH FIRST DEGREE AV BLOCK WITH OCCASIONAL VENTRICULAR PREMATURE COMPLEXES LEFT BUNDLE BRANCH BLOCK [120+ ms QRS DURATION, 80+ ms Q/S IN V1/V2, 85+ ms R IN I/aVL/V5/V6] ABNORMAL ECG UNCONFIRMED REPORT Normal sinus rhythm. First-degree AV block. No ST elevation or depression. Occasional PVC. Electronically signed by : SHANON ARAGON, 02/14/2025 15:27:33
[2025-02-14 15:05] LABS: Hematocrit 41.5 % (42.0-52.0); Hemoglobin 13.4 g/dL (14.1-18.0); Immature Granulocytes % 0.8 %; Mean Corpuscular HGB Conc 32.3 g/dL (31.8-35.4); Mean Corpuscular Hemoglobin 28.7 pg (27.0-31.2); Mean Corpuscular Volume 88.9 fl (80-94); Nucleated Red Blood Cells % 0 %; Platelet Count 212 K/mm3 (142-424); Red Blood Count 4.67 M/mm3 (4.60-6.20); Red Cell Distribution Width-SD 41.4 fL; White Blood Count 6.1 K/mm3 (4.8-10.8)
[2025-02-14 15:05] LABS: VBG HCO3 20.7 mmol/L (23-30); VBG PCO2 38.0 mmol/L (35-51); VBG PH 7.35 mmol/L (7.31-7.41); VBG PO2 51.7 mmol/L (28-40)
[2025-02-14 15:06] LABS: Lactate Venous 3.5 mmol/L (0.4-2.0)
[2025-02-14 15:13] LABS: Alanine Aminotransferase 19 U/L (12-78); Albumin Level 3.7 g/dl (3.5-5.0); Albumin/Globulin Ratio 1.5 (1.1-1.8); Alkaline Phosphatase 116 U/L (38-126); Anion Gap 13.6 mEq/L (5-15); Aspartate Amino Transferase 18 U/L (17-59); Bilirubin,Total 0.4 mg/dl (0.2-1.3); Blood Urea Nitrogen 43 mg/dl (9-20); Calcium 8.9 mg/dl (8.4-10.2); Carbon Dioxide 20 mmol/L (22.0-30.0); Chloride 99 mmol/L (98-107); Creatinine Clearance Estimated 57 mL/min (50-200); Creatinine,Serum 1.80 mg/dl (0.66-1.25); Estimated Glomerular Filt Rate 37 ml/min (>60); GFR (African American) 45 ML/MIN (>60); Globulin 2.5 g/dL (1.3-3.2); Magnesium 2.3 mg/dl (1.6-2.3); Potassium 4.6 mmoL/L (3.5-5.1); Sodium 128 mmol/L (136-145); Total Protein,Serum 6.2 g/dl (6.3-8.2)
[2025-02-14 15:22] LABS: NT Pro Brain Natriuretic Pep. 698 pg/mL (0-125)
[2025-02-14 15:26] LABS: Glucose 461 mg/dl (74-100)
--- NOTE | 2025-02-14 16:04 | PC.NURSE ---
I spoke with Vladislav in the lab, he is checking on the result for the serum acetone at this time.
[2025-02-14 16:07] LABS: Acetone, Serum (Rapid) None Detected (None Detect)
[2025-02-14 16:17] LABS: Microscopic, Urine URINE MICROSCOPIC (MICROSCOPIC)
[2025-02-14 16:28] LABS: Bilirubin,Urine Negative (Negative); Color,Urine YELLOW (Yellow); Glucose,Urine (UA) 3+ (Negative); Ketones,Urine Negative (Negative); Leukocyte Esterase,Urine Negative (Negative); PH,Urine 6.0 (5.0-8.5); Protein,Urine Negative (Negative); Specific Gravity, Urine 1.010 (1.005-1.030); Urobilinogen,Urine 0.2 EU/dl (0.2)
[2025-02-14 18:30] LABS: Hepatitis C Ab Qual. W/ RFX NEGATIVE (Negative)
[2025-02-14 19:06] LABS: Reflex Lactic Add Lactic Reflex
== END 2025-02-14 16:54 | disposition home or self-care (01) ==
PROVIDERS: Physician Assistant; Emergency Provider Student in an Organized Health Care Education/Training Program; PCP Nurse Practitioner Family
DX: E11.65 Type 2 diabetes mellitus with hyperglycemia (principal); E87.1 Hypo-osmolality and hyponatremia; N17.9 Acute kidney failure, unspecified; R74.02 Elevation of levels of lactic acid dehydrogenase [LDH]; R00.1 Bradycardia, unspecified; E11.22 Type 2 diabetes mellitus with diabetic chronic kidney disease; N18.9 Chronic kidney disease, unspecified; Z79.4 Long term (current) use of insulin; I50.9 Heart failure, unspecified
CPT/HCPCS: 80053; 81001; 82009; 82803; 83735; 83880; 85025; 86803; 87389; 93005; 99284; 99285

== ENCOUNTER 2025-02-19 10:17 | Day surgery (SDC) | payer MEDICARE, SELFPAY ==
[2025-02-19] VITALS (10 sets, daily range): BP systolic 122–153; BP diastolic 60–93; PULSE 59–73; RESP 12–20; TEMP 36.6; O2SAT 65–96; BMI 35.6
--- NOTE | 2025-02-19 07:07 | IR_ITS ---
APPROVED REPORT PROCEDURES Right heart catheterization pre-Cordata implantation Catheter placement in the right pulmonary artery Right pulmonary artery selective angiogram Cordella device placement in the right pulmonary artery Right heart cath post Leighton implantation INDICATION Congestive heart failure Informed consent was obtained prior to the procedure. COMPLICATIONS NONE Estimated Blood Loss: LESS THAN 10 ML TECHNIQUE One percent lidocaine was used to anesthetize the right groin. The right femoral vein was accessed via the Seldinger technique. A 7-Moldovan sheath was placed in the right femoral vein. Vein dilated and upsized to 14 fr sheath. Pigtial catheter inserted into femoral vein and tracked up to the right pulmonary artery. Right heart pressures obtained and continuously monitored. Angiogram taken to find target area for device. Distal pulmonary artery wired, pigtail catheter removed. Cordella device catheter inserted over the wire and guided to target placement. Placement confirmed under fluoro in two positions, device deployed. Catheter removed. Sheath removed, hemostasis achieved with Z-stitch and manual pressure, sterile dressing. Patient transferred to outpatient holding. PA pressure: Endotronix, Cordella Sensor Delivery Kit Serial number: [id number] Successful Pulmonary Angiogram Successful Cordella device placement Successful right heart cath PLAN 1. Postop wound care. Electronically signed by : Wilder Hobson MD 02/20/2025 12:19:29
[2025-02-19 10:47] LABS: Hematocrit 41.8 % (42.0-52.0); Hemoglobin 13.6 g/dL (14.1-18.0); Immature Granulocytes % 0.5 %; Mean Corpuscular HGB Conc 32.5 g/dL (31.8-35.4); Mean Corpuscular Hemoglobin 28.9 pg (27.0-31.2); Mean Corpuscular Volume 88.9 fl (80-94); Nucleated Red Blood Cells % 0 %; Platelet Count 200 K/mm3 (142-424); Red Blood Count 4.70 M/mm3 (4.60-6.20); Red Cell Distribution Width-SD 42.0 fL; White Blood Count 6.3 K/mm3 (4.8-10.8)
[2025-02-19 10:50] LABS: Chloride 104 mmol/L (98-107); Potassium 4.9 mmoL/L (3.5-5.1); Sodium 140 mmol/L (136-145)
[2025-02-19 10:53] LABS: Anion Gap 15.9 mEq/L (5-15); Blood Urea Nitrogen 27 mg/dl (9-20); Calcium 8.9 mg/dl (8.4-10.2); Carbon Dioxide 25 mmol/L (22.0-30.0); Creatinine Clearance Estimated 50 mL/min (50-200); Creatinine,Serum 2.10 mg/dl (0.66-1.25); Estimated Glomerular Filt Rate 31 ml/min (>60); GFR (African American) 38 ML/MIN (>60); Glucose 238 mg/dl (74-100)
[2025-02-19] MEDS: HEPARIN 1,000 UNITS/500ML NS (CATH LAB) 3000 UNIT IV (14:13)
[2025-02-19] MEDS: LIDOCAINE 1% 10ML MDV 10 ML IJ (14:13)
[2025-02-19] MEDS: 0.9 % SODIUM CHLORIDE 500 ML 25 ML IV (14:13)
[2025-02-19] MEDS: FENTANYL 100MCG/2ML VIAL 50 MCG IV (14:14)
[2025-02-19] MEDS: MIDAZOLAM HCL 1MG/ML 5ML VIAL 1 MG IV (14:15)
[2025-02-19] MEDS: IOPAMIDOL-370 (76%);100ML BOTTLE 10 ML IV (14:59)
== END 2025-02-19 17:01 | disposition home or self-care (01) ==
PROVIDERS: PCP Nurse Practitioner Family; Visit Provider Internal Medicine
DX: I50.23 Acute on chronic systolic (congestive) heart failure (principal); Z00.6 Encounter for examination for normal comparison and control in clinical research program; I27.20 Pulmonary hypertension, unspecified; R06.02 Shortness of breath; I25.708 Atherosclerosis of coronary artery bypass graft(s), unspecified, with other forms of angina pectoris; E11.9 Type 2 diabetes mellitus without complications; R53.83 Other fatigue; E78.2 Mixed hyperlipidemia; R94.30 Abnormal result of cardiovascular function study, unspecified; R94.31 Abnormal electrocardiogram [ECG] [EKG]; Z95.1 Presence of aortocoronary bypass graft; Z79.84 Long term (current) use of oral hypoglycemic drugs; Z79.82 Long term (current) use of aspirin; Z79.4 Long term (current) use of insulin; Z79.899 Other long term (current) drug therapy; Z88.8 Allergy status to other drugs, medicaments and biological substances
CPT/HCPCS: 33289; 36415; 80048; 85025; 99152; 99153; C1769; C1894; C2624; J1200; J1644; J3010; J7040; Q9967

== ENCOUNTER 2025-02-25 11:16 | Outpatient (CLI) | payer MEDICARE, SELFPAY ==
[2025-02-25 12:36] LABS: Chloride 97 mmol/L (98-107)
[2025-02-25 12:37] LABS: Potassium 5.0 mmoL/L (3.5-5.1); Sodium 129 mmol/L (136-145)
[2025-02-25 12:39] LABS: Blood Urea Nitrogen 32 mg/dl (9-20); Creatinine,Serum 1.90 mg/dl (0.66-1.25); Estimated Glomerular Filt Rate 35 ml/min (>60); GFR (African American) 42 ML/MIN (>60)
[2025-02-25 12:40] LABS: Anion Gap 13.0 mEq/L (5-15); Calcium 8.9 mg/dl (8.4-10.2); Carbon Dioxide 24 mmol/L (22.0-30.0)
[2025-02-25 12:46] LABS: Glucose 481 mg/dl (74-100)
--- OUTSIDE RECORDS SUMMARY | 2025-02-25 12:51 | XMS_ITS | Clinical Summary ---
Author Organization [facility] Address [address] [place], [place] [address] Care Team Providers [employer] Front End Developer Name Role Phone Carlos A Gross DO Primary Care Provider [phone] Allergies Active Allergy Reactions Criticality Noted Date [...] Years (1 of 1 - PCV) 004 RSV Vaccines (1 - Risk 50-74 years 1-dose series) 11/11 Zoster-RZV(Shingrix) (1 of 2) 12/05/2003 Fall Risk Assessment 2018 Advance Care Planning 03/12/2024 BMI Counseling 03/12/2024 Depression Screening 03/12/2024 Lipid Monitoring 10/31/2024 11/01/2023 COVID-19 Vaccine ( season) 2024 Influenza Vaccination (#1) 2024 01/25/2019 Tetanus Vaccination (Every 10 Years) 10/27/202710/10 Lipid Screening Discontinued 11/01/[address] [facility] MEDICARE Care Teams Net Front End Developer Relationship Specialty Start Date End Date Carlos A Gross DO [address] [place] [id number] PCP - General Family Medicine 02/22/24
== END 2025-02-25 23:59 | disposition home or self-care (01) ==
LOC: LAB 11:17
PROVIDERS: PCP Nurse Practitioner Family; Visit Provider Nurse Practitioner Family
DX: I25.708 Atherosclerosis of coronary artery bypass graft(s), unspecified, with other forms of angina pectoris (principal)
CPT/HCPCS: 36415; 80048